=== PATIENT | female | born 1955 | race Caucasian/White ===

== ENCOUNTER 2016-04-05 08:17 | Outpatient (RCR) | payer MEDICAID ==
--- OUTSIDE RECORDS SUMMARY | 2016-04-04 13:13 | XMS REPORT | Continuity of Care Document ---
Author Author [facility] Organization [facility] Address Unknown Phone Unavailable Care Team Providers Care Business Intelligence Developer Name Role Phone Alesha Desir PCP [phone] Source Comments Some departments are not documenting in the electronic medical record. If you do not see the information that you expected, contact Release of Information in the Health Information Management department at [phone] for further assistance in locating additional records.[facility] Active Allergies and Adverse Reactions Allergen Noted Date Severity Reactions Comments Ibuprofen 11/16/2012 EDEMA Rocephin 11/16/2012 HIVES Current Medications Prescription Sig. Disp. Refills Start End Date Status Date levothyroxine (SYNTHROID) Take 150 mcg by mouth Active 150 mcg tablet daily. omeprazole DR(+) Take 40 mg by mouth Active (PRILOSEC) 40 mg capsule daily. metFORMIN (GLUCOPHAGE) Take 500 mg by mouth Active 500 mg tablet twice daily with meals. atorvastatin (LIPITOR) 80 Take 80 mg by mouth Active mg tablet daily. aspirin EC 81 mg tablet Take 81 mg by mouth Active daily. lisinopril (PRINIVIL; Take 10 mg by mouth Active ZESTRIL) 10 mg tablet daily. metoprolol XL (TOPROL XL) Take 25 mg by mouth Active 25 mg tablet daily. fentaNYL (DURAGESIC) 75 Apply 1 Patch to top of Active mcg/hr patch skin as directed every 72 hours prasugrel (EFFIENT) 10 mg Take 10 mg by mouth Active Tab tablet daily. 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 Social History Tobacco Use Types Packs/Day Years Used Date Never Smoker Last Filed Vital Signs Vital Sign Reading Time Taken Blood Pressure 127/79 11/16/2012 11:22 AM CDT Pulse 112 11/16/2012 11:22 AM CDT Temperature 36.7 C (98 F) 11/16/2012 11:22 AM CDT Respiratory Rate 20 11/16/2012 11:22 AM CDT Height 1.575 m (5' 2") 11/16/2012 11:22 AM CDT Weight 137.712 kg (303 lb 9.6 11/16/2012 11:22 AM CDT oz) Body Mass Index 55.52 11/16/2012 11:22 AM CDT Oxygen Saturation - - Plan of Care Health Maintenance Due Date Last Done Comments Physical (Comprehensive) 1961 Exam Pertussis Vaccine 1965 Tetanus Vaccine 1971 Cervical Cancer Screening 1975 Breast Cancer Screening 1994 Colorectal Cancer 2004 Screening Shingles Vaccine 2014 Influenza Vaccine 02/12/2016 Results from Last 3 Months Not on file
--- OUTSIDE RECORDS SUMMARY | 2016-04-04 13:14 | XMS REPORT | Continuity of Care Document ---
Author Author [facility] Organization [facility] Address Unknown Phone Unavailable Care Team Providers Care Archivist [employer]profit [employer] Name Role Phone Alesha Desir PCP [phone] Source Comments Some departments are not documenting in the electronic medical record. If you do not see the information that you expected, contact Release of Information in the Health Information Management department at [phone] for further assistance in locating additional records.[facility] Active Allergies and Adverse Reactions Allergen Noted [...]
[~2016-04-05] VITALS: Ht 157.5 cm; Wt 121.6 kg
[2016-04-05] VITALS (7 sets, daily range): BP systolic 100–129; BP diastolic 53–58
[~2016-04-05 08:17] MED LIST: ACET-789 PO; ALBU2.5V4 IH; ASP81TEC PO; ATOR80TA PO; ATOR80TA75 PO; ATOR80TA76 PO; AZIT250T5 PO; BIMA2.5D4 OU; BYETTA; CALC-654 PO; CLCX200C PO; CYCL10TA9 PO; DILT240C90 PO; DILT60TA PO; FENT1PAT11 TD; FENT1PAT11 TP; FENT1PAT5 TD; FERR-74 PO; FNT50TD TD; FNT75TD TD; FRSM40T PO; FURO80TA3 PO; HYDR-3720 PO; HYDR-3812 PO; HYDR-757 PO; Hydrocodone Bit/Acetaminophen PO; IPRA3AMP11 INH; IRON150C13 PO; ISOS30TA3 PO; KCL10CCR PO; LEVO175T3 PO; LEVO175T5 PO; LEVO500T69 PO; LEVO500T78 PO; LEVO750T24 PO; LISI10TA PO; LSNP10T PO; LVT.15T PO; LVT.1T PO; MAGN400T6 PO; METF500T4 PO; METO-270 PO; METO-333 PO; METO25TA PO; METO5TAB6 PO; METOLAZONE PO; MGS40T; MTF500T PO; MTL5T PO; MTP25TSR PO; MUPI22OI2 TP; NITR-65 PO; NITR100C3 PO; NTR50C PO; OMEP40CA36 PO; OXYC-199 PO; OXYC-465 PO; OXYC-471 PO; OXYC1TAB25 PO; POTA-51 PO; PRAS10TA6 PO; PRD10T PO; PRD20T PO; RIVA20TA2 PO; RT-ALBUINH IH; SPIR50TA27 PO; SPRN25T; TIOT18CA2 IH; TRAV5DRO2 OU; WRF10T PO; WRF5T PO
--- OUTSIDE RECORDS SUMMARY | 2016-04-05 08:22 | XMS REPORT | Continuity of Care Document ---
Author Author [facility] Organization [facility] Address Unknown Phone Unavailable Care Team Providers Care Line Supply Name Role Phone Alesha Desir PCP [phone] Source Comments Some departments are not documenting in the electronic medical record. If you do not see the information that you expected, contact Release of Information in the Health Information Management department at [phone] for further assistance in locating additional records.[facility] Active Allergies and Adverse Reactions Allergen Noted [...]
[2016-04-05] MEDS ORDERED: NS IV 500 ML 500 ML ONE (08:41)
== END 2016-07-03 | disposition home or self-care (01) ==
LOC: SDC 08:17
PROVIDERS: ATTEND Nurse Practitioner Community Health
DX: D64.9 Anemia, unspecified (principal)
CPT/HCPCS: 36430; 86850; 86900; 86901; 86920

== ENCOUNTER 2016-07-14 13:02 | Outpatient (RCR) | payer MEDICAID ==
--- OUTSIDE RECORDS SUMMARY | 2016-04-21 13:24 | XMS REPORT | Continuity of Care Document ---
Author Author [facility] Organization [facility] Address Unknown Phone Unavailable Care Team Providers Care Trash Truck Driver Name Role Phone Alesha Desir PCP [phone] Source Comments Some departments are not documenting in the electronic medical record. If you do not see the information that you expected, contact Release of Information in the Health Information Management department at [phone] for further assistance in locating additional records.[facility] Active Allergies and Adverse Reactions Allergen [...]
[2016-04-21 13:34] LABS: BASOPHILS % (AUTO) 0 % (0-10); EOSINOPHILS # (AUTO) 0.6 10^3/uL (0.0-0.3); EOSINOPHILS % (AUTO) 7 % (0-10); LYMPHOCYTES % (AUTO) 25 % (12-44); MEAN CORPUSCULAR HEMOGLOBIN 26 PG (25-34); MEAN CORPUSCULAR HGB CONC 30 G/DL (32-36); MEAN CORPUSCULAR VOLUME 85 FL (80-99); MONOCYTES # (AUTO) 0.6 X 10^3 (0.0-1.0); MONOCYTES % (AUTO) 8 % (0-12); NEUTROPHILS # (AUTO) 4.7 X 10^3 (1.8-7.8); NEUTROPHILS % (AUTO) 59 % (42-75); PLATELET COUNT 280 10^3/uL (130-400); RED BLOOD COUNT 3.62 10^6/uL (4.35-5.85); RED CELL DISTRIBUTION WIDTH 18.8 % (10.0-14.5); WHITE BLOOD COUNT 7.8 10^3/uL (4.3-11.0)
[2016-04-21 14:45] LABS: ALBUMIN 3.7 G/DL (3.2-4.5); BILIRUBIN,TOTAL 0.4 MG/DL (0.1-1.0); CALCIUM 8.5 MG/DL (8.5-10.1); CREATININE SERUM 1.21 MG/DL (0.60-1.30); MAGNESIUM 1.2 MG/DL (1.8-2.4); POTASSIUM 3.4 MMOL/L (3.6-5.0); TOTAL PROTEIN 7.4 G/DL (6.4-8.2)
[2016-04-21 16:14] LABS: %SAT TOTAL IRON BINDING CAPIC 12 % (15-50); TIBC 357 ug/dL (280-380)
[2016-04-22 07:21] LABS: FERRITIN 21 ng/mL (15-150); UIBC 313 ug/dL (55-450)
[2016-07-14 13:59] LABS: BASOPHILS % (AUTO) 0 % (0-10); EOSINOPHILS # (AUTO) 0.8 10^3/uL (0.0-0.3); EOSINOPHILS % (AUTO) 8 % (0-10); LYMPHOCYTES # (AUTO) 1.4 X 10^3 (1.0-4.0); LYMPHOCYTES % (AUTO) 16 % (12-44); MEAN CORPUSCULAR HEMOGLOBIN 28 PG (25-34); MEAN CORPUSCULAR HGB CONC 31 G/DL (32-36); MEAN CORPUSCULAR VOLUME 91 FL (80-99); MEAN PLATELET VOLUME 8.8 FL (7.4-10.4); MONOCYTES # (AUTO) 0.6 X 10^3 (0.0-1.0); MONOCYTES % (AUTO) 7 % (0-12); NEUTROPHILS # (AUTO) 6.3 X 10^3 (1.8-7.8); NEUTROPHILS % (AUTO) 69 % (42-75); PLATELET COUNT 267 10^3/uL (130-400); RED BLOOD COUNT 3.24 10^6/uL (4.35-5.85); RED CELL DISTRIBUTION WIDTH 14.9 % (10.0-14.5); WHITE BLOOD COUNT 9.1 10^3/uL (4.3-11.0)
[2016-07-14 14:21] LABS: ALBUMIN 3.6 G/DL (3.2-4.5); BILIRUBIN,TOTAL 0.3 MG/DL (0.1-1.0); CALCIUM 8.1 MG/DL (8.5-10.1); CREATININE SERUM 1.23 MG/DL (0.60-1.30); POTASSIUM 3.6 MMOL/L (3.6-5.0); TOTAL PROTEIN 7.1 G/DL (6.4-8.2)
[2016-07-14 15:13] LABS: THYROID STIMULATING HORMONE 3.65 UIU/ML (0.35-4.94)
== END 2016-07-20 | disposition home or self-care (01) ==
LOC: ONC 13:02
PROVIDERS: ATTEND Internal Medicine Hematology & Oncology
DX: D50.9 Iron deficiency anemia, unspecified (principal); I25.10 Atherosclerotic heart disease of native coronary artery without angina pectoris; E11.9 Type 2 diabetes mellitus without complications; E66.01 Morbid (severe) obesity due to excess calories; Z68.42 Body mass index [BMI] 45.0-49.9, adult; K44.9 Diaphragmatic hernia without obstruction or gangrene; I10 Essential (primary) hypertension; J44.9 Chronic obstructive pulmonary disease, unspecified; E03.9 Hypothyroidism, unspecified; Z79.01 Long term (current) use of anticoagulants; Z79.899 Other long term (current) drug therapy
CPT/HCPCS: 36415; 80053; 82728; 83540; 83735; 84443; 85025; 99213

== ENCOUNTER → 2016-09-26 | Outpatient (CLI) | payer MEDICAID ==
[~2016-09-26] MED LIST changes: +OXYC-464 PO; +SULF-222 PO
--- NOTE | 2016-09-26 16:07 | Diagnostic Imaging Report ---
PROCEDURE: US right lower extremity venous. TECHNIQUE: Multiple real-time grayscale images were obtained over the right lower extremity in various projections. Additional duplex Doppler and color Doppler images were also obtained. INDICATION: Right lower extremity edema. FINDINGS: The right common femoral, femoral, and popliteal veins are patent without evidence of DVT. Visualized proximal aspects of the greater saphenous, deep femoral, posterior tibial, and peroneal veins are also patent. All of the evaluated deep venous structures demonstrate normal compressibility and waveform augmentation where applicable. IMPRESSION: No right lower extremity deep venous thrombosis (DVT). Attempt was made to call the report to the provided number ([phone]); however, there was no answer. Dictated by: Dictated on workstation # [id number]
== END ==
LOC: RAD 14:29
PROVIDERS: ATTEND Nurse Practitioner Family
DX: R60.0 Localized edema (principal)

== ENCOUNTER 2016-09-28 14:03 | Inpatient (IN) | payer MEDICAID ==
[~2016-09-28] VITALS: Ht 157.5 cm; Wt 125.7 kg
[~2016-09-28 14:03] MED LIST changes: -OXYC-464 PO; -SULF-222 PO
[2016-09-28 14:45] LABS: BASOPHILS % (AUTO) 0 % (0-10); EOSINOPHILS # (AUTO) 0.7 10^3/uL (0.0-0.3); EOSINOPHILS % (AUTO) 7 % (0-10); LYMPHOCYTES # (AUTO) 1.3 X 10^3 (1.0-4.0); LYMPHOCYTES % (AUTO) 13 % (12-44); MEAN CORPUSCULAR HEMOGLOBIN 28 PG (25-34); MEAN CORPUSCULAR HGB CONC 30 G/DL (32-36); MEAN CORPUSCULAR VOLUME 93 FL (80-99); MONOCYTES # (AUTO) 0.9 X 10^3 (0.0-1.0); MONOCYTES % (AUTO) 9 % (0-12); NEUTROPHILS # (AUTO) 7.3 X 10^3 (1.8-7.8); NEUTROPHILS % (AUTO) 71 % (42-75); PLATELET COUNT 284 10^3/uL (130-400); RED BLOOD COUNT 2.86 10^6/uL (4.35-5.85); RED CELL DISTRIBUTION WIDTH 15.2 % (10.0-14.5); WHITE BLOOD COUNT 10.2 10^3/uL (4.3-11.0)
[2016-09-28 14:59] LABS: ERYTHROCYTE SEDIMENTATION RATE 136 MM/HR (0-30)
[2016-09-28 15:02] LABS: ALBUMIN 3.3 G/DL (3.2-4.5); BILIRUBIN,TOTAL 0.3 MG/DL (0.1-1.0); CALCIUM 6.7 MG/DL (8.5-10.1); CREATININE SERUM 1.64 MG/DL (0.60-1.30); POTASSIUM 2.8 MMOL/L (3.6-5.0); TOTAL PROTEIN 7.2 G/DL (6.4-8.2); hs C REACTIVE PROTEIN 8.39 MG/DL (0.00-0.50)
[2016-09-28] MEDS ORDERED: NS W/KCL 20 MEQ/L 1,000 ML IV SCH (15:30)
[2016-09-28] MEDS ORDERED: CLINDAMYCIN INJECTION 900 MG in NS (IVPB) 50 ML IV ONE (15:30)
--- NOTE | 2016-09-28 15:33 | ED General ---
General Chief Complaint: Lower Extremity Stated Complaint: LEGS/FEET SWELLING Nursing Triage Note: TO ROOM 08 WITH COMPLAINTS OF RIGHT LEG SWELLING AND PAIN STARTING OVER 1 WEEK AGO. SENT OUT HERE FROM DR CARRERA OFFICE. Nursing Sepsis Screen: No Definite Risk Source of Information: Patient, Family, Old Records, Other (PCP office) History of Present Illness Time Seen by Provider: 14:04 Initial Comments This 61-year-old woman was sent to the emergency room by Dr. Hernandez due to worsening right lower extremity pain, erythema, and swelling. She was seen in the clinic on Tuesday and was placed on Bactrim for suspected cellulitis. An ultrasound was performed and showed no evidence of DVT. Symptoms have worsened through the weekend and she contacted the primary care clinic by phone. She was deferred to the emergency room for further evaluation. She is afebrile and not tachycardic. Dr. Hernandez was concerned about a possible septic arthritis because she had a cortisone joint injections performed about 3 weeks ago. Allergies and Home Medications Allergies Coded Allergies: ceftriaxone (Verified Allergy, Unknown, 09/28/16) ibuprofen (Verified Allergy, Unknown, PT TAKES ASA AT HOME, 09/29/16) PER [facility] Home Medications Aspirin 81 Mg Tabec, 81 MG PO DAILY, (Reported) Atorvastatin Calcium 80 Mg Tablet, 80 MG PO HS, (Reported) Cyclobenzaprine HCl 10 Mg Tablet, 10 MG PO TID PRN for MUSCLE CRAMPS, (Reported) Fentanyl 1 Each Patch.td72, 100 MCG TD EVERY 72 HOURS, (Reported) Ferrous Sulfate 325 Mg Tablet, 325 MG PO DAILY, (Reported) Isosorbide Mononitrate 30 Mg Tab.er.24h, 30 MG PO DAILY, (Reported) Levothyroxine Sodium 175 Mcg Tablet, 175 MCG PO DAILY, (Reported) Metformin HCl 500 Mg Tablet, 500 MG PO BID, (Reported) Metolazone 5 Mg Tablet, 5 MG PO DAILY, (Reported) Metoprolol Tartrate 25 Mg Tablet, 25 MG PO BID, (Reported) Omeprazole 40 Mg Capsule.dr, 40 MG PO DAILY, (Reported) Oxycodone HCl/Acetaminophen 1 Each Tablet, 1 TAB PO TID, (Reported) Potassium Chloride 20 Meq Tablet.er, 20 MEQ PO BID, (Reported) Sulfamethoxazole/Trimethoprim 1 Each Tablet, 1 TAB PO BID, (Reported) FILLED 09/26/16 #20 FOR A 10 DAY THERAPY Constitutional: no symptoms reported EENTM: no symptoms reported Respiratory: no symptoms reported Cardiovascular: no symptoms reported Gastrointestinal: no symptoms reported Genitourinary: no symptoms reported Musculoskeletal: see HPI Skin: see HPI Psychiatric/Neurological: No Symptoms Reported Hematologic/Lymphatic: No Symptoms Reported Past Qfbnbkx-Cygiin-Nhbfcm Hx Patient Social History Recent Foreign Travel: No Contact w/Someone Who Travel: No Recent Infectious Disease Expo: No Recent Hopitalizations: Yes (recent ER visit) Immunizations Up To Date Tetanus Booster (TDap): Unknown Date of Pneumonia Vaccine: Mar 13, 2010 Date of Influenza Vaccine: Apr 11, 2015 Seasonal Allergies Seasonal Allergies: No Surgeries HX Surgeries: Yes (COLON POLYP REMOVAL, MULTIPLE HERNIA REPAIRS, D&C) Surgeries: Abdominal, Adenoidectomy, Cardiac, Coronary Stent, Eye Surgery, Gallbladder, Tonsillectomy, Tubal Ligation Respiratory Hx Respiratory Disorders: Yes (CHRONIC DYSPNEA--USES O2 AT HOME, ESPECIALLY AT NIGHT) Respiratory Disorders: Pneumonia, Sleep Apnea, COPD Cardiovascular Hx Cardiac Disorders: Yes (TACHYCARDIA, STENTS X 1, CHF) Cardiac Disorders: Atrial Fibrillation, Chronic Edema/Swelling, Coronary Artery Disease, Deep Vein Thrombosis, Heart Attack, High Cholesterol, Hypertension Neurological Hx Neurological Disorders: No 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 System Hx 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 Disorders: No Sexually Transmitted Disease: No HIV/AIDS: No Female 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 Disorders: Denies CHEF DE CUISINE History: Menopausal Genitourinary Hx Genitourinary Disorders: Yes Genitourinary Disorders: UTI-Chronic Gastrointestinal Hx Gastrointestinal Disorders: Yes (ENTERO-CUTANEOUS FISTULA TO ABDOMEN. ) Gastrointestinal Disorders: Abdominal Hernia, Diverticulosis, Polyps, Gall Bladder Disease Musculoskeletal Hx Musculoskeletal Disorders: Yes (CHRONIC GENERALIZED PAIN--NARCOTIC-DEPENDENT ) Musculoskeletal Disorders: Degenerate Disk Disease, Arthritis, Chronic Back Pain Endocrine Hx Endocrine Disorders: Yes (MORBID OBESITY) Endocrine Disorders: Hypothyroidsim, Diabetes, Non-Insulin dep HEENT HX ENT Disorders: Yes HEENT Disorders: Cataract, Glaucoma Loss of Vision: Denies Hearing Impairment: Denies Cancer Hx Cancer: Yes Cancer: Colon Psychosocial Hx Psychiatric Problems: No Integumentary HX Skin/Integumentary Disorder: Yes (CELLULITIS) Skin/Integumentary Disorders: Eczema Blood Transfusions Hx Blood Disorders: Yes (CHRONIC ANEMIA) Adverse Reaction to a Blood Tr: No Family Medical History Family Medial History: Cancer 03 MOTHER, Onset:40's - 50 Family history: Cardiovascular disease 03 FATHER, Onset:40's - 50 03 MOTHER, Onset:30's - 40 Myocardial infarction 03 MOTHER, Onset:30's - 40 Physical Exam Vital Signs Vital Sign - Last 12Hours 09/28/16 09/28/16 14:05 20:00 Temp 97.5 Pulse 75 Resp 18 B/P (MAP) 129/60 Pulse Ox 96 O2 Delivery Room Air Capillary Refill : Less Than 3 Seconds General Appearance: No Apparent Distress, WD/WN, Obese HEENT: PERRL/EOMI, Normal ENT Inspection, Other (bedbugs noted in the hair by nursing staff) Neck: Normal Inspection Respiratory: Lungs Clear, Normal Breath Sounds, No Accessory Muscle Use, No Respiratory Distress Cardiovascular: Regular Rate, Rhythm, No Edema, No Murmur Gastrointestinal: Normal Bowel Sounds, Non Tender, Soft Extremity: Other (bilateral lower extremity edema, right greater than left. Right lower extremity is diffusely erythematous below the knee. There is an area of tissue degradation on the posterior lateral lower right leg. Sensation and capillary refill intact in the toes. Knee and joint line of purulent unaffected and are nontender.) Neurologic/Psychiatric: Alert, Oriented x3, No Motor/Sensory Deficits, Normal Mood/Affect, primary school teacher librarian II-XII Norm as Tested Focused Exam Lactic Acid Level Progress/Results/Core Measures Results/Orders Lab Results Laboratory Tests Test 09/28/16 14:34 09/28/16 15:25 09/29/16 04:17 09/29/16 16:27 Range/Units White Blood Count 10.2 8.6 4.3-11.0 10^3/uL Red Blood Count 2.86 L 3.04 L 4.35-5.85 10^6/uL Hemoglobin 7.9 L 8.5 L 11.5-16.0 G/DL Hematocrit 27 L 28 L 35-52 % Mean Corpuscular Volume 93 93 80-99 FL Mean Corpuscular Hemoglobin 28 28 25-34 PG Mean Corpuscular Hemoglobin Concent 30 L 30 L 32-36 G/DL Red Cell Distribution Width 15.2 H 15.4 H 10.0-14.5 % Platelet Count 284 247 130-400 10^3/uL Mean Platelet Volume 9.0 9.7 7.4-10.4 FL Neutrophils (%) (Auto) 71 68 42-75 % Lymphocytes (%) (Auto) 13 12 12-44 % Monocytes (%) (Auto) 9 10 0-12 % Eosinophils (%) (Auto) 7 9 0-10 % Basophils (%) (Auto) 0 0 0-10 % Neutrophils # (Auto) 7.3 5.8 1.8-7.8 X 10^3 Lymphocytes # (Auto) 1.3 1.1 1.0-4.0 X 10^3 Monocytes # (Auto) 0.9 0.9 0.0-1.0 X 10^3 Eosinophils # (Auto) 0.7 H 0.8 H 0.0-0.3 10^3/uL Basophils # (Auto) 0.0 0.0 0.0-0.1 10^3/uL Erythrocyte Sedimentation Rate 136 H 0-30 MM/HR D-Dimer 2.73 H 0.00-0.49 UG/ML Sodium Level 139 140 135-145 MMOL/L Potassium Level 2.8 L 3.2 L 3.6-5.0 MMOL/L Chloride Level 93 L 98 98-107 MMOL/L Carbon Dioxide Level 31 29 21-32 MMOL/L Anion Gap 15 H 13 5-14 MMOL/L Blood Urea Nitrogen 17 18 7-18 MG/DL Creatinine 1.64 H 1.32 H 0.60-1.30 MG/DL Estimat Glomerular Filtration Rate 32 41 BUN/Creatinine Ratio 10 14 Glucose Level 111 H 102 70-105 MG/DL Lactic Acid Level 2.33 *H 1.57 0.50-2.00 MMOL/L Calcium Level 6.7 L 6.5 L 8.5-10.1 MG/DL Total Bilirubin 0.3 0.1-1.0 MG/DL Aspartate Amino Transf (AST/SGOT) 16 5-34 U/L Alanine Aminotransferase (ALT/SGPT) 9 0-55 U/L Alkaline Phosphatase 92 40-136 U/L C-Reactive Protein High Sensitivity 8.39 H 0.00-0.50 MG/DL Total Protein 7.2 6.4-8.2 G/DL Albumin 3.3 3.2-4.5 G/DL Lab Scanned Report Transfusion Reaction Form [id number] Micro Results Microbiology 09/28/16 Blood Culture - Preliminary, Resulted No growth 09/28/16 Blood Culture - Preliminary, Resulted No growth My Orders Orders - BRUEGGEMANN,ELE T MD Cbc With Automated Diff (09/28/16 14:08) Comprehensive Metabolic Panel (09/28/16 14:08) Hs C Reactive Protein (09/28/16 14:08) Erythrocyte Sedimentation Rate (09/28/16 14:08) Fibrin Degradation Products (09/28/16 14:08) Saline Lock/Iv-Start (09/28/16 14:08) Us Venous Lower Ext Rt (09/28/16 15:15) Lactic Acid Analyzer (09/28/16 15:16) Blood Culture (09/28/16 15:16) Clindamycin Injection (Cleocin Injection (09/28/16 15:30) Ns W/Kcl 20 Meq/L (Ns Iv W/Kcl 20 Meq/L) (09/28/16 15:30) Potassium Chloride (Tablet) (Klor Con Ta (09/28/16 15:45) Tibia/Fibula, Right, 2 Views (09/28/16 16:25) Ankle, Right, 3 Views (09/28/16 16:25) Oxycodone/Apap 5/325mg Tablet (Percocet (09/28/16 17:00) Fentanyl Injection (Sublimaze Injection (09/28/16 17:15) Fentanyl Injection (Sublimaze Injection (09/28/16 17:03) Medications Given in ED Vital Signs/I&O Vital Sign - Last 12Hours 09/29/16 09/30/16 21:00 00:52 Temp 97.8 Pulse 67 Resp 16 B/P (MAP) 97/54 Pulse Ox 94 O2 Delivery Nasal Cannula Room Air O2 Flow Rate 3.00 Blood Pressure Mean: 83 Progress Note : Time: 15:46 Progress Note Patient has been seen and examined. Labs were process. D-dimer was significantly elevated. A repeat ultrasound will be performed to ensure no DVT is present. WBC count, heart rate, blood pressure, and temperature are all normal. CRP however is elevated. Patient will be treated for cellulitis. Blood cultures and lactic acid were collected. Lactic acid was elevated. Clindamycin was ordered for initial antibiotic therapy. Patient was found to be in renal failure and has significant hypokalemia. Normal saline +20 mEq of potassium will be infuse at 500 mL per hour. 20 mEq of potassium was also given orally. I anticipate admission for this patient due to renal failure, hypokalemia, and failure of outpatient therapy for cellulitis. Diagnostic Imaging Diagonstic Imaging: Ultrasound Plain Films/CT/US/NM/MRI: leg Comments NAME: [facility] REC#: [id number] PT STATUS: REG ER : 1955 PHYSICIAN: ELE PEREYRA MD ADMIT DATE: 09/28/16/ER Draft Date of Exam:09/28/16 US VENOUS LOWER EXT RT PROCEDURE: US right lower extremity venous. INDICATION: Right leg pain and swelling. COMPARISON: 09/26/2016. TECHNIQUE: The right lower extremity deep venous system was interrogated from the common femoral vein through the popliteal vein. These images were assessed for grayscale appearance, color and spectral Doppler blood flow, compression, and augmentation. FINDINGS: There is no evidence of intraluminal filling defect. Normal compression and augmentation is noted throughout. Soft tissues are unremarkable. IMPRESSION: 1. No sonographic evidence of deep venous thrombosis in the right lower extremity. Dictated on workstation # [id number] Dict: 09/28/16 1611 Trans: 09/28/16 1613 MARIAELENA [id number] Interpreted by: JAN LYLE MD Diagonstic Imaging: Xray Plain Films/CT/US/NM/MRI: ankle Comments Right ankle x-ray viewed by me and report reviewed. See report below: NAME: [facility] REC#: [id number] PT STATUS: ADM IN : 1955 PHYSICIAN: ELE PEREYRA MD ADMIT DATE: 09/28/16/4TH Draft Date of Exam:09/28/16 ANKLE, RIGHT, 3 VIEWS INDICATION: Right ankle pain and swelling. FINDINGS: Three views of the right ankle show no fracture, dislocation or other acute bony abnormality. There are mild degenerative changes of the tips of the medial and lateral malleolus. The ankle joint is not widened. There is swelling present. IMPRESSION: Swelling. No acute bony abnormality is seen. Dictated on workstation # [id number] Dict: 09/28/16 1712 Trans: 09/28/16 171 [facility] [id number] Interpreted by: LISA SMILEY MD Departure Communication Time/Spoke to Admitting Phy: 16:20 Communication Case reviewed with Dr. Pino. She agrees with admission as patient has failed outpatient therapy for treatment of cellulitis. She also has acute kidney injury and hypokalemia. She requested consultation with Dr. Ramesh. Dr. Ramesh recommends cross-matching 2 units of red blood cells. One unit is to be transfused now. The second unit should be transfused in the morning if hemoglobin is less than 8.5. Dr. Pino requested surgical consult for evaluation of the cellulitis. She also requested the addition of vancomycin to the clindamycin. Communication/Consulting Dr. Lambert at 16:40 Dr. Ramesh at 16:45 Impression Impression: Primary Impression: Cellulitis of right leg Additional Impressions: Hypokalemia Acute kidney injury Anemia Qualified Codes: D64.9 - Anemia, unspecified bedbug infestation Disposition: ADMITTED INPATIENT Condition: Improved Time/Decision to Admit Time: 15:30 Departure-Patient Inst. Referrals: JAN HERNANDEZ MD (PCP) Primary Care Physician ELE PEREYRA MD Sep 28, 2016 15:33
[2016-09-28] MEDS ORDERED: KCL 10 MEQ TAB (MICRO K) PO ONE (15:45)
[2016-09-28] MEDS ORDERED: OXYC-464 PO (15:59)
[2016-09-28] MEDS ORDERED: CYCL10TA9 PO (15:59)
[2016-09-28] MEDS ORDERED: SULF-222 PO (16:08)
--- NOTE | 2016-09-28 16:14 | Diagnostic Imaging Report ---
PROCEDURE: US right lower extremity venous. INDICATION: Right leg pain and swelling. COMPARISON: 09/26/2016. TECHNIQUE: The right lower extremity deep venous system was interrogated from the common femoral vein through the popliteal vein. These images were assessed for grayscale appearance, color and spectral Doppler blood flow, compression, and augmentation. FINDINGS: There is no evidence of intraluminal filling defect. Normal compression and augmentation is noted throughout. Soft tissues are unremarkable. IMPRESSION: 1. No sonographic evidence of deep venous thrombosis in the right lower extremity. Dictated by: Dictated on workstation # [id number]
[2016-09-28] MEDS ORDERED: oxyCODONE/APAP 5/325MG (PERCOCET 5) TABLET PO ONE (17:00)
[2016-09-28] MEDS ORDERED: fentaNYL INJECTION 100 MCG/2 ML AMP ONE (17:03)
[2016-09-28] MEDS ORDERED: fentaNYL INJECTION 100 MCG/2 ML AMP IVP ONE (17:15)
--- NOTE | 2016-09-28 17:16 | Diagnostic Imaging Report ---
INDICATION: Right ankle pain and swelling. FINDINGS: Three views of the right ankle show no fracture, dislocation or other acute bony abnormality. There are mild degenerative changes of the tips of the medial and lateral malleolus. The ankle joint is not widened. There is swelling present. IMPRESSION: Swelling. No acute bony abnormality is seen. Dictated by: Dictated on workstation # [id number]
--- NOTE | 2016-09-28 17:24 | Diagnostic Imaging Report ---
INDICATION: Right leg pain and swelling. FINDINGS: AP and lateral views of the right tibia and fibula were obtained which shows no fracture, dislocation or other acute bony abnormality. There is moderately advanced degenerative changes of the knee involving all three compartments. There are milder degenerative changes of the ankle. There are soft tissue calcification present. No focal mass is seen. There is swelling. IMPRESSION: There are degenerative changes present with no acute bony abnormality seen. Dictated by: Dictated on workstation # [id number]
[2016-09-28 18:00] VITALS: BP 151/81
[2016-09-28] MEDS ORDERED: CLINDAMYCIN 900 MG/NS 50 ML IVPB IV SCH ×2 (18:06)
[2016-09-28] MEDS: NS W/KCL 20 MEQ/L 1,000 ML IV SCH (18:39)
[2016-09-28] MEDS ORDERED: VANCOMYCIN INJECTION 2,500 MG in NS IV 500 ML 500 ML IV NR (19:00)
[2016-09-28 20:00] VITALS: BP 145/72
[2016-09-28] MEDS ORDERED: NS (IVPB) 250 ML ONE (22:40)
[2016-09-28] MEDS: oxyCODONE/APAP 10/325MG (PERCOCET 10) TABLET PO PRN (23:20)
[2016-09-28 23:26] VITALS: BP 141/51
[2016-09-28 23:42] VITALS: BP 156/76
[2016-09-29] VITALS: BP 145/68
[2016-09-29] MEDS: CLINDAMYCIN 900 MG/NS 50 ML IVPB IV SCH ×8 (00:06→22:23)
[2016-09-29 01:37] VITALS: BP 152/88
[2016-09-29] MEDS: NS W/KCL 20 MEQ/L 1,000 ML IV SCH ×4 (02:30→21:03)
[2016-09-29 04:53] VITALS: BP 128/77
[2016-09-29 05:06] LABS: BASOPHILS % (AUTO) 0 % (0-10); EOSINOPHILS # (AUTO) 0.8 10^3/uL (0.0-0.3); EOSINOPHILS % (AUTO) 9 % (0-10); LYMPHOCYTES # (AUTO) 1.1 X 10^3 (1.0-4.0); LYMPHOCYTES % (AUTO) 12 % (12-44); MEAN CORPUSCULAR HEMOGLOBIN 28 PG (25-34); MEAN CORPUSCULAR HGB CONC 30 G/DL (32-36); MEAN CORPUSCULAR VOLUME 93 FL (80-99); MEAN PLATELET VOLUME 9.7 FL (7.4-10.4); MONOCYTES # (AUTO) 0.9 X 10^3 (0.0-1.0); MONOCYTES % (AUTO) 10 % (0-12); NEUTROPHILS # (AUTO) 5.8 X 10^3 (1.8-7.8); NEUTROPHILS % (AUTO) 68 % (42-75); PLATELET COUNT 247 10^3/uL (130-400); RED BLOOD COUNT 3.04 10^6/uL (4.35-5.85); RED CELL DISTRIBUTION WIDTH 15.4 % (10.0-14.5); WHITE BLOOD COUNT 8.6 10^3/uL (4.3-11.0)
[2016-09-29 05:22] LABS: CALCIUM 6.5 MG/DL (8.5-10.1); CREATININE SERUM 1.32 MG/DL (0.60-1.30); POTASSIUM 3.2 MMOL/L (3.6-5.0)
[2016-09-29 08:00] VITALS: BP 167/78
[2016-09-29] MEDS: oxyCODONE/APAP 10/325MG (PERCOCET 10) TABLET PO PRN ×3 (08:32→22:23)
[2016-09-29] MEDS ORDERED: MAGNESIUM 1 GM/100 ML IVPB 100 ML IV NR (09:00)
--- NOTE | 2016-09-29 10:36 | CONSULTATION REPORT ---
DATE OF ADMISSION: 09/28/2016 DATE OF CONSULTATION: 09/28/2016 ATTENDING PRIMARY CARE PHYSICIAN: Dr. Mckeon ADMITTING PHYSICIAN: Dr. Pino. Ms. Sis Alfaro is a 61-year-old female with multiple medical problems. She has had multiple admissions due to morbid obesity, as well as lower extremity edema, cellulitis pannus, infection, as well as enterocutaneous fistula and large hernia. She was treated conservatively for many months and the enterocutaneous fistula did resolve on its own and then she underwent hernia repair. She states that she has not had any issues from this since that time. She has had bilateral lower extremity edema, as well as chronic venous insufficiency for years. The right lower extremity is significantly worse with swelling and edema, as well as tight hyperkeratotic skin and some mild changes consistent with a chronic venous insufficiency. There is also some overlying redness and erythema and pain consistent with cellulitis. There is no fluctuance to indicate an abscess. PAST MEDICAL HISTORY: 1. History of pneumonia. 2. Sleep apnea. 3. COPD. 4. Atrial fibrillation/ 5. Bilateral lower extremity edema. 6. Coronary artery disease. 7. History of DVT. 8. History of myocardial infarction. 9. Hypercholesterolemia. 10. Hypertension. 11. Chronic urinary tract infections. 12. History of enterocutaneous fistula. 13. History of colon polyp. 14. Degenerative joint disease. 15. Diabetes. 16. Hypothyroid. 17. Cataracts. 18. Glaucoma. 19. History of anemia. PAST SURGERIES: 1. Multiple hernia repairs. 2. Abdominal hernia repair. 3. Adenoidectomy. 4. Tonsillectomy. 5. Cardiac catheterization and stent placement. 6. Eye surgery. 7. Laparoscopic cholecystectomy. 8. Tubal ligation. 9. Repair of large incisional ventral abdominal hernia. ALLERGIES: 1. CEFTRIAXONE. 2. IBUPROFEN. MEDICATIONS: 1. Aspirin 81 mg daily. 2. Atorvastatin 80 mg daily. 3. Cyclobenzaprine 10 mg t.i.d. p.r.n. 4. Fentanyl patch 100 mcg every 72 hours. 5. Iron 325 mg daily. 6. Isosorbide mononitrate 30 mg daily. 7. Levothyroxine 175 micrograms daily. 8. Metformin 500 mg b.i.d. 9. Metolazone 5 mg daily. 10. Metoprolol 25 mg b.i.d. 11. Omeprazole 40 mg daily. 12. Oxycodone t.i.d. p.r.n. 13. Potassium 20 mEq b.i.d. 14. Bactrim b.i.d. SOCIAL HISTORY: States negative smoke. Negative alcohol. FAMILY HISTORY: Mother and father vascular disease. VITAL SIGNS: Temperature 97.5, blood pressure 129/60, pulse 75, respirations 18, pulse oximetry 96% on room air. REVIEW OF SYSTEMS: This is a well-nourished female currently in no acute distress. She is not experiencing any shortness of breath or difficulty breathing. No chest pain, palpitations, diaphoresis. No nausea, vomiting, no diarrhea, constipation. No fever, chills, no recent inadvertent weight loss. PHYSICAL EXAMINATION: CHEST: Few scattered rales and rhonchi bilaterally. HEART: Regular. EXTREMITIES: +2/3 bilateral lower extremity edema with right significantly worse than the left with signs of chronic venous insufficiency with no open wound however, there is overlying redness and swelling with some palpable pain consistent with cellulitis. There is no fluctuance to indicate any abscess. Negative Anali sign. HEENT: No scleral icterus. No cervical lymphadenopathy. ABDOMEN: Soft, nontender, nondistended. ASSESSMENT AND PLAN: 61-year-old female with chronic venous insufficiency, bilateral lower extremity with a right significantly worse than the left. This may be due to Incompetent venous perforators which is We will recommend just above the ankle . Eventually she will need to be fitted for compression stockings and place these on at all times. Job ID: [id number] Dictated Date: 09/28/2016 19:35:39 Web Programmer Date: 09/29/2016 10:18:30/deyanira
--- NOTE | 2016-09-29 11:01 | History & Physical-Hospitalist ---
HPI History of Present Illness: HPI/Chief Complaint CC: Right leg cellulitis HPI: This is a 61 [address] pt [address] Mckeon's at [facility] w/ history of edema and recent fall on right leg that developed cellulitis and was placed on Bactrim which was unsuccessful at resolving issues. Pt had Creat 1.6 and K+ of 2.8 revealing renal failure, so pt was admitted to replace electrolyte abnormalities and manage cellulitis Patient Interview: Pt live at home with her daughters and two grandson. Pt feels that her leg is okay Pt confirms that Dr. Shearer is PCP and that she was placed on Bactrim BID The pain is not bothering her as much. Lab results discussed with pt. Physical exam was stable. Pt uses a walker at home Received 1 unit of blood. Pt has chronic anemia and is transfusion dependent managed by Dr. Ramesh Scribed by Dread Fox under the direct supervision of Dr. Ireland. Source: patient Date Seen 09/29/16 Attending Physician Claudia Ireland DO PCP Aden Mckeon MD Referring Physician Date of Admission Sep 28, 2016 at 16:40 Home Medications & Allergies Home Medications Reviewed patient Home Medication Reconciliation Form Allergies Allergies Coded Allergies ceftriaxone (Verified Allergy, Unknown, 09/28/16) ibuprofen (Verified Allergy, Unknown, 09/28/16) Past Gomrmrr-Pchwmp-Sctnyb Hx Patient Social History Marrital Status: single Employed/Student: unemployed Alcohol Use: Denies Use Recreational Drug Use: No Smoking Status: Former Smoker Physical Abuse Screen: No Sexual Abuse: No Recent Foreign Travel: No Contact w/other who traveled: No Recent Hopitalizations: Yes (recent ER visit) Recent Infectious Disease Expo: No Immunizations Up To Date Tetanus Booster (TDap): Unknown Date of Pneumonia Vaccine: Mar 13, 2010 Date of Influenza Vaccine: Apr 11, 2015 Seasonal Allergies Seasonal Allergies: No Surgeries HX Surgeries: Yes (COLON POLYP REMOVAL, MULTIPLE HERNIA REPAIRS, D&C) Surgeries: Abdominal, Adenoidectomy, Cardiac, Coronary Stent, Eye Surgery, Gallbladder, Tonsillectomy, Tubal Ligation Respiratory Hx Respiratory Disorders: Yes (CHRONIC DYSPNEA--USES O2 AT HOME, ESPECIALLY AT NIGHT) Respiratory Disorders: Sleep Apnea Cardiovascular Hx Cardiovascular Disorders: Yes (TACHYCARDIA, STENTS X 1, CHF) Cardiac Disorders: Atrial Fibrillation, Chronic Edema/Swelling, Coronary Artery Disease, Deep Vein Thrombosis, Heart Attack, High Cholesterol, Hypertension Neurological Hx Neurological Disorders: No 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 System Hx 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 Disorders: No Sexually Transmitted Disease: No HIV/AIDS: No Female 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 Disorders: Denies Genitourinary Hx Genitourinary Disorders: Yes Genitourinary Disorders: UTI-Chronic Gastrointestinal Hx Gastrointestinal Disorders: Yes (ENTERO-CUTANEOUS FISTULA TO ABDOMEN. ) Gastrointestinal Disorders: Abdominal Hernia, Diverticulosis, Polyps, Gall Bladder Disease Musculoskeletal Hx Musculoskeletal Disorders: Yes (CHRONIC GENERALIZED PAIN--NARCOTIC-DEPENDENT ) Musculoskeletal Disorders: Degenerate Disk Disease, Arthritis, Chronic Back Pain Endocrine Hx Endocrine Disorders: Yes (MORBID OBESITY) Endocrine Disorders: Hypothyroidsim, Diabetes, Non-Insulin dep HEENT HX ENT Disorders: Yes HEENT Disorders: Cataract, Glaucoma Loss of Vision: Denies Hearing Impairment: Denies Cancer Hx Cancer: Yes Cancer: Colon Psychosocial Hx Psychiatric Problems: No Integumentary HX Skin/Integumentary Disorder: Yes (CELLULITIS) Skin/Integumentary Disorders: Eczema Blood Transfusions Hx Blood Disorders: Yes (CHRONIC ANEMIA) Adverse Reaction to a Blood Tr: No Family Medical History Family Hx: Cancer 03 MOTHER, Onset:40's - 50 Family history: Cardiovascular disease 03 FATHER, Onset:40's - 50 03 MOTHER, Onset:30's - 40 Myocardial infarction 03 MOTHER, Onset:30's - 40 Review of Systems Constitutional: see HPI, weakness EENTM: no symptoms reported Respiratory: no symptoms reported Cardiovascular: no symptoms reported Gastrointestinal: no symptoms reported Genitourinary: no symptoms reported Musculoskeletal: joint pain Skin: see HPI Psychiatric/Neurological: Depressed All Other Systems Reviewed Negative Unless Noted: Yes Physical Exam Physical Exam Vital Signs Vital Sign - Last 12Hours 09/28/16 09/28/16 14:05 20:00 Temp 97.5 Pulse 75 Resp 18 B/P (MAP) 129/60 Pulse Ox 96 O2 Delivery Room Air Capillary Refill : Less Than 3 SecondsLess Than 3 Seconds General Appearance: No Apparent Distress, WD/WN, Chronically ill, Obese Eyes: Bilateral Eye Normal Inspection, Bilateral Eye PERRL HEENT: PERRL/EOMI, Normal ENT Inspection, Pharynx Normal Neck: Full Range of Motion, Normal Inspection, Non Tender, Supple, Carotid Bruit Respiratory: Chest Non Tender, Lungs Clear, Normal Breath Sounds, No Accessory Muscle Use, No Respiratory Distress Cardiovascular: Regular Rate, Rhythm, No Edema, No Gallop, No JVD, No Murmur, Normal Peripheral Pulses Gastrointestinal: Normal Bowel Sounds, No Organomegaly, No Pulsatile Mass, Non Tender, Soft Back: Normal Inspection, No CVA Tenderness, No Vertebral Tenderness Extremity: Normal Capillary Refill, Normal Inspection, Normal Range of Motion, Non Tender, No Calf Tenderness, No Pedal Edema Neurologic/Psychiatric: Alert, Oriented x3, No Motor/Sensory Deficits, Normal Mood/Affect Skin: Normal Color, Warm/Dry, Rash (right lower leg w/mild erythema and chronic edema) Lymphatic: No Adenopathy Results Results/Procedures Lab Laboratory Tests 09/28/16 14:34 09/29/16 04:17 Assessment/Plan Admission Diagnosis Assessment: Right lower extremity cellulitis Chronic lymphedema Acute renal failure creatinine 1.6 Hypokalemia severe at 2.8 Hypertension Hypothyroidism Hyperlipidemia Chronic angina Chronic anemia transfusion dependent managed by hematology Dr. Munroe Morbid obesity Assessment and Plan Plan: Restart home meds Labs recheck tomorrow morning Possible DC tomorrow Improve personal hygiene PT Abx Monitor hgb but may need another unit tomorrow Clinical Quality Measures DVT/VTE Risk/Contraindication: Risk Factor Score Per Nursin RFS Level Per Nursing on Admit: 4+=Very High CLAUDIA IRELAND DO Sep 29, 2016 11:01
[2016-09-29] MEDS ORDERED: CYCLOBENZAPRINE 10 MG (FLEXERIL) TAB PO PRN (11:15)
--- NOTE | 2016-09-29 11:43 | Progress Note (SOAP) ---
Subjective Subjective/Events-last exam doing well. less pain,erythema, edema. Objective Exam Vital Signs Date Time Temp Pulse Resp B/P (MAP) Pulse Ox O2 Delivery O2 Flow Rate FiO2 09/29/16 11:37 3.00 09/29/16 08:00 98.2 93 24 167/78 90 Room Air 09/29/16 04:53 98.5 79 20 128/77 96 Room Air 09/29/16 01:37 97.6 77 20 152/88 3.00 09/29/16 00:00 97.5 76 16 145/68 97 Room Air 09/28/16 23:42 97.4 79 18 156/76 3.00 09/28/16 23:26 97.8 75 20 141/51 96 3.00 09/28/16 21:00 Nasal Cannula 3.00 09/28/16 20:00 98.3 74 20 145/72 98 Room Air 09/28/16 18:00 98.7 77 18 151/81 98 09/28/16 18:00 98 3.00 09/28/16 17:31 77 16 98 09/28/16 14:05 97.5 75 18 129/60 96 I & O 09/29/16 07:00 Intake Total 1341 ml Output Total 900 ml Balance 441 ml Capillary Refill : Less Than 3 SecondsLess Than 3 Seconds General Appearance: No Apparent Distress HEENT: PERRL/EOMI Neck: Full Range of Motion Respiratory: Chest Non Tender, Lungs Clear, Normal Breath Sounds Cardiovascular: Regular Rate, Rhythm Gastrointestinal: normal bowel sounds, non tender, soft Extremity: Normal Capillary Refill, Swelling, Other (less erythema and swelling left LE) Neurologic/Psychiatric: Alert, Oriented x3 Skin: Normal Color Lymphatic: No Adenopathy Results Lab Laboratory Tests 09/28/16 14:34: White Blood Count 10.2, Red Blood Count 2.86L, Hemoglobin 7.9L, Hematocrit 27L, Mean Corpuscular Volume 93, Mean Corpuscular Hemoglobin 28, Mean Corpuscular Hemoglobin Concent 30L, Red Cell Distribution Width 15.2H, Platelet Count 284, Mean Platelet Volume 9.0, Neutrophils (%) (Auto) 71, Lymphocytes (%) (Auto) 13, Monocytes (%) (Auto) 9, Eosinophils (%) (Auto) 7, Basophils (%) (Auto) 0, Neutrophils # (Auto) 7.3, Lymphocytes # (Auto) 1.3, Monocytes # (Auto) 0.9, Eosinophils # (Auto) 0.7H, Basophils # (Auto) 0.0, Erythrocyte Sedimentation Rate 136H, D-Dimer 2.73H, Sodium Level 139, Potassium Level 2.8L, Chloride Level 93L, Carbon Dioxide Level 31, Anion Gap 15H, Blood Urea Nitrogen 17, Creatinine 1.64H, Estimat Glomerular Filtration Rate 32, BUN/Creatinine Ratio 10 , Glucose Level 111H, Lactic Acid Level 2.33*H, Calcium Level 6.7L, Total Bilirubin 0.3, Aspartate Amino Transf (AST/SGOT) 16, Alanine Aminotransferase ( ALT/SGPT) 9, Alkaline Phosphatase 92, C-Reactive Protein High Sensitivity 8.39H , Total Protein 7.2, Albumin 3.3 09/28/16 15:25: Lactic Acid Level 1.57 09/29/16 04:17: White Blood Count 8.6, Red Blood Count 3.04L, Hemoglobin 8.5L, Hematocrit 28L, Mean Corpuscular Volume 93, Mean Corpuscular Hemoglobin 28, Mean Corpuscular Hemoglobin Concent 30L, Red Cell Distribution Width 15.4H, Platelet Count 247, Mean Platelet Volume 9.7, Neutrophils (%) (Auto) 68, Lymphocytes (%) (Auto) 12, Monocytes (%) (Auto) 10, Eosinophils (%) (Auto) 9, Basophils (%) (Auto) 0, Neutrophils # (Auto) 5.8, Lymphocytes # (Auto) 1.1, Monocytes # (Auto) 0.9, Eosinophils # (Auto) 0.8H, Basophils # (Auto) 0.0, Sodium Level 140, Potassium Level 3.2L, Chloride Level 98, Carbon Dioxide Level 29, Anion Gap 13, Blood Urea Nitrogen 18, Creatinine 1.32H, Estimat Glomerular Filtration Rate 41, BUN/ Creatinine Ratio 14, Glucose Level 102, Calcium Level 6.5L Assessment/Plan Assessment/Plan Assess & Plan/Chief Complaint left leg chronic venous insufficiency vs lymphedema with cellulitis. improving with IV abx and elevation/wrap. continue current regimen. Clinical Quality Measures DVT/VTE Risk/Contraindication: Risk Factor Score Per Nursin RFS Level Per Nursing on Admit: 4+=Very High MELITA MATOS MD Sep 29, 2016 11:43 am
[2016-09-29 12:00] VITALS: BP 117/56
[2016-09-29] MEDS ORDERED: fentaNYL PATCH 100 MCG (DURAGESIC) TD SCH (12:00)
[2016-09-29] MEDS ORDERED: oxyCODONE/APAP 7.5-325 MG (PERCOCET 7.5) TABLET PO SCH (13:00)
[2016-09-29] MEDS: meTOprolol TARTRATE 25 MG (LOPRESSOR) TABLET PO SCH ×2 (13:24→20:58)
[2016-09-29] MEDS: KCL 20 MEQ TAB (K-DUR) PO SCH ×2 (13:24→17:03)
[2016-09-29] MEDS: ISOSORBIDE MONONITRATE 30 MG (IMDUR) TAB PO SCH (13:25)
[2016-09-29] MEDS: POTASSIUM CL 10MEQ/50ML IVPB 50 ML IV SCH ×4 (13:27→17:01)
[2016-09-29] MEDS: FENTANYL PATCH REMOVAL TP SCH ×2 (13:28→15:30)
[2016-09-29] MEDS ORDERED: MAGNESIUM 1 GM/100 ML IVPB 100 ML IV ONE (13:59)
--- NOTE | 2016-09-29 15:52 | Physical Therapy Evaluation ---
PT Evaluation-General Medical Diagnosis Admission Date Sep 28, 2016 at 16:40 Medical Diagnosis: weakness Onset Date: Sep 28, 2016 Therapy Diagnosis Therapy Diagnosis: impaired mobility, strength, endurance Height/Weight Height (Feet): 5 Height (Inches): 2.00 Weight (Pounds): 277 Weight (Ounces): 2.0 Precautions Precautions/Isolations: Fall Prevention, Standard Precautions Referral Physician: Claudia Pino DO Reason for Referral: Evaluation/Treatment Medical History Pertinent Medical History: Atrial Fib, Arthritis, CAD, DM, Diverticulitis, HTN , Hypothroidism, [place] Additional Medical History former smoker, edema, falls, cellulitis, chronic anemia, chronic dyspnea (home O2), sleep apnea, tachycardia, CHF, DVT, high cholesterol, UTI-chronic, 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 Current History came to ER with cellulitis also discovered renal failure Reviewed History: Yes Social History Home: Single Level Current Living Status: Other Family Entry Into Home: Stairs With Railing PT Steps Into Home: 3 Prior/Core FIM Prior Level of Function Functional [place] Measure 0=Not Assessed/NA 4=Minimal Assistance 1=Total Assistance 5=Supervision or Setup 2=Maximal Assistance 6=Modified [place] 3=Moderate Assistance 7=Complete [place] Bed Mobility: 1 Transfers (B,C,W/C) (FIM): 1 Gait: 1 Patient uses a 4 wheeled walker at home for short distances she says about 15' PT Evaluation-Current Subjective Patient in bed pre tx, agrees to PT, states she does not have any pain while lying down, but when standing her pain in her knees gets progressively worse with time. Pt/Family Goals "to go home" Objective Patient Orientation: Person, Place, Situation Attachments: Oxygen, IV ROM/Strength ROM Lower Extremities limited by edema Strenght Lower Extremities right lower extremity 3-/5 gross, left lower extremity 3/5 gross Neuromuscular (Tone, Coordination, Reflexes) WNL Sensory Vision: Wears Glasses Hearing: Functional Sensation Right Lower Extremit: Intact Sensation Left Lower Extremity: Intact Sensation Lower Extremities patient denies any numbness or tingling in either leg Transfers Functional [place] Measure 0=Not Assessed/NA 4=Minimal Assistance 1=Total Assistance 5=Supervision or Setup 2=Maximal Assistance 6=Modified [place] 3=Moderate Assistance 7=Complete [place] Transfers (B, C, W/C) (FIM): 4 Scootin Rollin Supine to/from Sit: 5 Sit to/from Stand: 4 Patient stood at the edge of the bed with CGA, she was only able to stand for about 20 seconds Balance Sitting Static: Normal Sitting Dynamic: Normal Standing Static: Fair Standing Dynamic: Fair Treatment bilateral lower extremity seated exercises x 10 (AP, LAQ, hip flexion) Assessment/Needs Patient has impaired general mobility, strength, endurance Rehab Potential: Fair PT Manager Of Disaster Recovery Goals Alf Goals PT Manager Of Disaster Recovery Goals Time Frame: Oct 06, 2016 Transfers (B,C,W/C) (FIM): 5 Gait (FIM): 1 Distance: 10' Gait Level of Assist: 4 Gait Assistive Device: FWW PT Plan Problem List Problem List: Activity Tolerance, Functional Strength, Safety, Balance, Gait, Transfer, Bed Mobility, ROM Treatment/Plan Treatment Plan: Continue Plan of Care Treatment Plan: Bed Mobility, Education, Functional Activity Rashid, Functional Strength, Gait, Safety, Therapeutic Exercise, Transfers Treatment Duration: Oct 06, 2016 # of days/week 5-6 Visits Per Week: 5-6 Minutes/Day (M-F): 15-30 Minutes/Day (Sat/Paredes): 15-30 Pt/Family Agrees w/Plan: Yes Safety Risks/Education Patient Education: Transfer Techniques, Correct Positioning, Safety Issues Teaching Recipient: Patient Teaching Methods: Demonstration, Discussion Response to Teaching: Reinforcement Needed Discharge Recommendations Plan Patient will perform bed mobility and transfer training, balance and endurance training, functional strengthening, stair training, gait training, education, to improve functional mobility and independence at home. Therapy D/C Recommendations: Home w/ Family Support Time/GCodes Time In: 1530 Time Out: 1545 Total Billed Treatment Time: 15 Total Billed Treatment 1 visit EVM 15 min CASEY MARTINEZ PT Sep 29, 2016 15:52
[2016-09-29 16:00] VITALS: BP 107/55
[2016-09-29] MEDS ORDERED: VANCOMYCIN INJECTION 1,750 MG in NS IV 500 ML 500 ML IV SCH (18:00)
[2016-09-29] MEDS ORDERED: ATORVASTATIN 80 MG (LIPITOR) TABLET PO SCH (21:00)
[2016-09-30 00:52] VITALS: BP 97/54
[2016-09-30] MEDS: NS W/KCL 20 MEQ/L 1,000 ML IV SCH (05:31)
[2016-09-30 05:41] LABS: BASOPHILS % (AUTO) 0 % (0-10); EOSINOPHILS # (AUTO) 0.8 10^3/uL (0.0-0.3); EOSINOPHILS % (AUTO) 12 % (0-10); LYMPHOCYTES # (AUTO) 1.2 X 10^3 (1.0-4.0); LYMPHOCYTES % (AUTO) 18 % (12-44); MEAN CORPUSCULAR HEMOGLOBIN 28 PG (25-34); MEAN CORPUSCULAR HGB CONC 29 G/DL (32-36); MEAN CORPUSCULAR VOLUME 95 FL (80-99); MEAN PLATELET VOLUME 9.4 FL (7.4-10.4); MONOCYTES # (AUTO) 0.6 X 10^3 (0.0-1.0); MONOCYTES % (AUTO) 9 % (0-12); NEUTROPHILS # (AUTO) 4.1 X 10^3 (1.8-7.8); NEUTROPHILS % (AUTO) 61 % (42-75); PLATELET COUNT 226 10^3/uL (130-400); RED BLOOD COUNT 2.86 10^6/uL (4.35-5.85); RED CELL DISTRIBUTION WIDTH 15.3 % (10.0-14.5); WHITE BLOOD COUNT 6.7 10^3/uL (4.3-11.0)
[2016-09-30 05:56] LABS: ALBUMIN 2.8 G/DL (3.2-4.5); BILIRUBIN,TOTAL 0.3 MG/DL (0.1-1.0); CALCIUM 6.6 MG/DL (8.5-10.1); CREATININE SERUM 1.11 MG/DL (0.60-1.30); POTASSIUM 3.8 MMOL/L (3.6-5.0); TOTAL PROTEIN 6.2 G/DL (6.4-8.2)
[2016-09-30] MEDS: KCL 20 MEQ TAB (K-DUR) PO SCH (06:22)
[2016-09-30] MEDS: CLINDAMYCIN 900 MG/NS 50 ML IVPB IV SCH ×2 (06:23)
[2016-09-30] MEDS ORDERED: LEVOTHYROXINE 100 MCG (LEVOTHROID) TAB PO SCH (06:30)
[2016-09-30] MEDS ORDERED: LEVOTHYROXINE 75 MCG (LEVOTHROID) TABLET PO SCH (06:30)
[2016-09-30] MEDS ORDERED: PANTOPRAZOLE 40 MG (PROTONIX) TAB PO SCH (07:00)
[2016-09-30] MEDS ORDERED: FERROUS SULF 325 MG (IRON) TAB PO SCH (07:00)
[2016-09-30 08:00] VITALS: BP 133/61
[2016-09-30] MEDS ORDERED: CATHETER FLUSH 10 ML SYR IV PRN (08:15)
[2016-09-30] MEDS: ISOSORBIDE MONONITRATE 30 MG (IMDUR) TAB PO SCH (08:37)
[2016-09-30] MEDS: oxyCODONE/APAP 10/325MG (PERCOCET 10) TABLET PO PRN (08:37)
[2016-09-30] MEDS: meTOprolol TARTRATE 25 MG (LOPRESSOR) TABLET PO SCH (08:38)
[2016-09-30] MEDS ORDERED: oxyCODONE/APAP 7.5-325 MG (PERCOCET 7.5) TABLET PO SCH (09:00)
[2016-09-30] MEDS ORDERED: ASPIRIN E.C. 81 MG (ECOTRIN) TAB PO SCH (09:00)
[2016-09-30] MEDS ORDERED: KCL 20 MEQ TAB (K-DUR) PO NR (09:30)
--- NOTE | 2016-09-30 10:54 | Discharge Summary-Hospitalist ---
Diagnosis/Chief Complaint Date of Admission Sep 28, 2016 at 16:40 Date of Discharge Admission Diagnosis Assessment: Right lower extremity cellulitis Chronic lymphedema Acute renal failure creatinine 1.6 Hypokalemia severe at 2.8 Hypertension Hypothyroidism Hyperlipidemia Chronic angina Chronic anemia transfusion dependent managed by hematology Dr. Munroe Morbid obesity Discharge Diagnosis Assessment: Right lower extremity cellulitis all to discharge will not go home on by mouth antibiotics Chronic lymphedema Acute renal failure creatinine 1.6 now normalized at discharge Hypokalemia severe at 2.8 resolved at discharge Hypertension Hypothyroidism Hyperlipidemia Chronic angina Chronic anemia transfusion dependent managed by hematology Dr. Munroe Morbid obesity Plan: Restart home meds Labs recheck tomorrow morning Possible DC tomorrow Improve personal hygiene PT Abx Monitor hgb but may need another unit tomorrow Reason Hospital Visit/Course CC: Right leg cellulitis HPI: This is a 61 yoWF pt of Dr Mckeon's at [facility] w/ history of edema and recent fall on right leg that developed cellulitis and was placed on Bactrim which was unsuccessful at resolving issues. Pt had Creat 1.6 and K+ of 2.8 revealing renal failure, so pt was admitted to replace electrolyte abnormalities and manage cellulitis Patient Interview: Pt live at home with her daughters and two grandson. Pt feels that her leg is okay Pt confirms that Dr. Shearer is PCP and that she was placed on Bactrim BID The pain is not bothering her as much. Lab results discussed with pt. Physical exam was stable. Pt uses a walker at home Received 1 unit of blood. Pt has chronic anemia and is transfusion dependent managed by Dr. Ramesh Scribed by Dread Fox under the direct supervision of Dr. Ireland. Notes from 09/30/16 Chart Review: No fever, vitals stable, WBC 6.7, Hgb 8, K+ 3.8, Creat 1.11, transfusion dependent Patient Interview: Blood work discussed w/pt, everything looks good. Pt will need to wear davie wraps at home to help prevent return of infection. Pt uses [facility] pharmacy Physical exam stable. Pt admits to not having to take her water pill, she takes it occasionally when she feels she needs it. Pt asked about the dosage of K+ that she is on at home, she does not believe it is enough. Pt received K+ today. PCP Dr. Mckeon. No fever, vital signs stable, pleasant, improved Regular rate and rhythm, clear to auscultation bilaterally but slight wheeze noted No edema Plan: DC Davie wraps at home. IV Lasix 1 dose before discharge then resume home diuretics Increase home dosage of K+ will be up to PCP Follow up w/Dr. Mckeon Tuesday Scribed by Dread Fox under the direct supervision of Dr. Ireland. Discharge Summary Discharge Physical Examination Allergies: Coded Allergies: ceftriaxone (Verified Allergy, Unknown, 09/28/16) ibuprofen (Verified Allergy, Unknown, PT TAKES ASA AT HOME, 09/29/16) PER MED REC Vitals & I&Os Vital Signs Date Time Temp Pulse Resp B/P (MAP) Pulse Ox O2 Delivery O2 Flow Rate FiO2 09/30/16 08:00 96.5 74 22 133/61 97 Room Air 09/29/16 21:00 3.00 Hospital Course Labs (last 24 hrs) Laboratory Tests 09/29/16 16:27: Lab Scanned Report Transfusion Reaction Form 09/30/16 05:18: White Blood Count 6.7, Red Blood Count 2.86L, Hemoglobin 8.0L, Hematocrit 27L, Mean Corpuscular Volume 95, Mean Corpuscular Hemoglobin 28, Mean Corpuscular Hemoglobin Concent 29L, Red Cell Distribution Width 15.3H, Platelet Count 226, Mean Platelet Volume 9.4, Neutrophils (%) (Auto) 61, Lymphocytes (%) (Auto) 18, Monocytes (%) (Auto) 9, Eosinophils (%) (Auto) 12H, Basophils (%) (Auto) 0, Neutrophils # (Auto) 4.1, Lymphocytes # (Auto) 1.2, Monocytes # (Auto) 0.6, Eosinophils # (Auto) 0.8H, Basophils # (Auto) 0.0, Sodium Level 142, Potassium Level 3.8, Chloride Level 102, Carbon Dioxide Level 30, Anion Gap 10, Blood Urea Nitrogen 17, Creatinine 1.11, Estimat Glomerular Filtration Rate 50, BUN/ Creatinine Ratio 15, Glucose Level 96, Calcium Level 6.6L, Total Bilirubin 0.3, Aspartate Amino Transf (AST/SGOT) 18, Alanine Aminotransferase (ALT/SGPT) 11, Alkaline Phosphatase 77, Total Protein 6.2L, Albumin 2.8L Microbiology 09/28/16 Blood Culture - Preliminary, Resulted No growth Pending Labs Laboratory Tests 09/30/16 05:18: White Blood Count 6.7, Red Blood Count 2.86, Hemoglobin 8.0, Hematocrit 27, Mean Corpuscular Volume 95, Mean Corpuscular Hemoglobin 28, Mean Corpuscular Hemoglobin Concent 29, Red Cell Distribution Width 15.3, Platelet Count 226, Mean Platelet Volume 9.4, Neutrophils (%) (Auto) 61, Lymphocytes (%) (Auto) 18, Monocytes (%) (Auto) 9, Eosinophils (%) (Auto) 12, Basophils (%) (Auto) 0, Neutrophils # (Auto) 4.1, Lymphocytes # (Auto) 1.2, Monocytes # (Auto) 0.6, Eosinophils # (Auto) 0.8, Basophils # (Auto) 0.0, Sodium Level 142, Potassium Level 3.8, Chloride Level 102, Carbon Dioxide Level 30, Anion Gap 10, Blood Urea Nitrogen 17, Creatinine 1.11, Estimat Glomerular Filtration Rate 50, BUN/ Creatinine Ratio 15, Glucose Level 96, Calcium Level 6.6, Total Bilirubin 0.3, Aspartate Amino Transf (AST/SGOT) 18, Alanine Aminotransferase (ALT/SGPT) 11, Alkaline Phosphatase 77, Total Protein 6.2, Albumin 2.8 Discharge Home Medications: Active Scripts Active Reported Sulfamethoxazole-Tmp Ds Tablet (Sulfamethoxazole/Trimethoprim) 1 Each Tablet 1 Tab PO BID FILLED 09/26/16 #20 FOR A 10 DAY THERAPY Cyclobenzaprine HCl 10 Mg Tablet 10 Mg PO TID PRN Oxycodon-Acetaminophen 7.5-325 (Oxycodone HCl/Acetaminophen) 1 Each Tablet 1 Tab PO TID Potassium Chloride 20 Meq Tablet.er 20 Meq PO BID Fentanyl Patch 100 MCG (Fentanyl) 1 Each Patch.td72 100 Mcg TD EVERY 72 HOURS Metolazone 5 Mg Tablet 5 Mg PO DAILY Metoprolol Tartrate 25 Mg Tablet 25 Mg PO BID Ferrous Sulfate 325 Mg Tablet 325 Mg PO DAILY Levothyroxine Sodium 175 Mcg Tablet 175 Mcg PO DAILY Isosorbide Mononitrate ER (Isosorbide Mononitrate) 30 Mg Tab.er.24h 30 Mg PO DAILY Atorvastatin Calcium 80 Mg Tablet 80 Mg PO HS Metformin HCl 500 Mg Tablet 500 Mg PO BID Omeprazole 40 Mg Capsule.dr 40 Mg PO DAILY Aspirin Ec 81 Mg (Aspirin) 81 Mg Tabec 81 Mg PO DAILY Instructions to patient/family Please see electonic discharge instructions given to patient. Clinical Quality Measures DVT/VTE Risk/Contraindication: Risk Factor Score Per Nursin RFS Level Per Nursing on Admit: 4+=Very High KASSIDY IRELAND DO Sep 30, 2016 10:54
--- NOTE | 2016-09-30 11:19 | Physical Therapy Progress Note ---
Therapy Progress Note PT observed patient and family performing bed mobility and transfers as they do at home per their report. Patient will dismiss to home on this date and declined PT this a.m. Patient and family report she is "back to normal". PT to dismiss from services at this time. 1 JACQUELINE Aponte PT Sep 30, 2016 11:19
[2016-09-30 17:00] VITALS: BP 128/88
[2016-09-30] MEDS ORDERED: TROUGH ORDER-PHARMACY XX NR (17:00)
[2016-10-01] MEDS ORDERED: FUROSEMIDE 40 MG/4 ML INJ (LASIX) IVP SCH (09:00)
== END 2016-09-30 17:00 | disposition home or self-care (01) | DRG 603 ==
LOC: EDUNIT# 14:03 → ER 14:04 → 4TH 16:40
PROVIDERS: ADMIT Internal Medicine; ATTEND Internal Medicine
DX: L03.115 Cellulitis of right lower limb (principal); N17.9 Acute kidney failure, unspecified; I25.110 Atherosclerotic heart disease of native coronary artery with unstable angina pectoris; E66.01 Morbid (severe) obesity due to excess calories; Z68.43 Body mass index [BMI] 50.0-59.9, adult; E87.6 Hypokalemia; D64.9 Anemia, unspecified; I87.2 Venous insufficiency (chronic) (peripheral); I89.0 Lymphedema, not elsewhere classified; I48.91 Unspecified atrial fibrillation; I10 Essential (primary) hypertension; E78.5 Hyperlipidemia, unspecified; J44.9 Chronic obstructive pulmonary disease, unspecified; E03.9 Hypothyroidism, unspecified; E11.9 Type 2 diabetes mellitus without complications; Z95.5 Presence of coronary angioplasty implant and graft
CPT/HCPCS: 36415; 73590; 73610; 80048; 80053; 83605; 85025; 85379; 85652; 86141; 86850; 86900; 86901; 86920; 87040; 96361; 96365; 96375

== ENCOUNTER 2016-10-13 13:16 | Outpatient (RCR) | payer MEDICAID ==
[2016-09-15 14:40] LABS: BASOPHILS % (AUTO) 0 % (0-10); EOSINOPHILS # (AUTO) 1.1 10^3/uL (0.0-0.3); EOSINOPHILS % (AUTO) 11 % (0-10); LYMPHOCYTES # (AUTO) 1.9 X 10^3 (1.0-4.0); LYMPHOCYTES % (AUTO) 19 % (12-44); MEAN CORPUSCULAR HEMOGLOBIN 28 PG (25-34); MEAN CORPUSCULAR HGB CONC 30 G/DL (32-36); MEAN CORPUSCULAR VOLUME 95 FL (80-99); MEAN PLATELET VOLUME 9.4 FL (7.4-10.4); MONOCYTES # (AUTO) 0.8 X 10^3 (0.0-1.0); MONOCYTES % (AUTO) 8 % (0-12); NEUTROPHILS # (AUTO) 6.2 X 10^3 (1.8-7.8); NEUTROPHILS % (AUTO) 61 % (42-75); PLATELET COUNT 249 10^3/uL (130-400); RED BLOOD COUNT 2.99 10^6/uL (4.35-5.85); RED CELL DISTRIBUTION WIDTH 14.9 % (10.0-14.5)
[2016-09-15 15:01] LABS: ALBUMIN 3.4 G/DL (3.2-4.5); BILIRUBIN,TOTAL 0.3 MG/DL (0.1-1.0); CALCIUM 8.4 MG/DL (8.5-10.1); CREATININE SERUM 1.2 MG/DL (0.60-1.30); POTASSIUM 3.5 MMOL/L (3.6-5.0); TOTAL PROTEIN 7.4 G/DL (6.4-8.2)
[2016-09-15 15:21] LABS: THYROID STIMULATING HORMONE 4.57 UIU/ML (0.35-4.94)
[~2016-10-13 13:16] MED LIST changes: +OXYC-464 PO; +SULF-222 PO
[2016-10-13 13:54] LABS: BASOPHILS % (AUTO) 1 % (0-10); EOSINOPHILS # (AUTO) 0.9 10^3/uL (0.0-0.3); EOSINOPHILS % (AUTO) 12 % (0-10); LYMPHOCYTES # (AUTO) 1.3 X 10^3 (1.0-4.0); LYMPHOCYTES % (AUTO) 18 % (12-44); MEAN CORPUSCULAR HGB CONC 29 G/DL (32-36); MEAN CORPUSCULAR VOLUME 95 FL (80-99); MEAN PLATELET VOLUME 8.4 FL (7.4-10.4); MONOCYTES # (AUTO) 0.6 X 10^3 (0.0-1.0); MONOCYTES % (AUTO) 8 % (0-12); NEUTROPHILS # (AUTO) 4.8 X 10^3 (1.8-7.8); NEUTROPHILS % (AUTO) 62 % (42-75); PLATELET COUNT 266 10^3/uL (130-400); RED BLOOD COUNT 3.02 10^6/uL (4.35-5.85); RED CELL DISTRIBUTION WIDTH 15.5 % (10.0-14.5); RETICULOCYTE % 2.48 % (0.50-2.40); WHITE BLOOD COUNT 7.7 10^3/uL (4.3-11.0)
[2016-10-13 14:00] LABS: MEAN CORPUSCULAR HEMOGLOBIN 27 PG (25-34)
[2016-10-13 14:55] LABS: ALBUMIN 3.4 G/DL (3.2-4.5); BILIRUBIN,TOTAL 0.4 MG/DL (0.1-1.0); CALCIUM 8.5 MG/DL (8.5-10.1); CREATININE SERUM 1.27 MG/DL (0.60-1.30); POTASSIUM 3.4 MMOL/L (3.6-5.0); TOTAL PROTEIN 7.6 G/DL (6.4-8.2)
[2016-10-13 15:19] LABS: THYROID STIMULATING HORMONE 8.21 UIU/ML (0.35-4.94)
[2016-11-06] MEDS ORDERED: SULF1TAB35 PO (20:12)
== END 2016-12-14 | disposition home or self-care (01) ==
LOC: ONC 13:16
PROVIDERS: ATTEND Internal Medicine Hematology & Oncology
DX: D50.9 Iron deficiency anemia, unspecified (principal); I25.10 Atherosclerotic heart disease of native coronary artery without angina pectoris; E11.9 Type 2 diabetes mellitus without complications; E66.01 Morbid (severe) obesity due to excess calories; Z68.42 Body mass index [BMI] 45.0-49.9, adult; K44.9 Diaphragmatic hernia without obstruction or gangrene; I10 Essential (primary) hypertension; J44.9 Chronic obstructive pulmonary disease, unspecified; E03.9 Hypothyroidism, unspecified; Z79.01 Long term (current) use of anticoagulants; Z79.899 Other long term (current) drug therapy
CPT/HCPCS: 36415; 80053; 82728; 83540; 84443; 85025; 85045; 99213

== ENCOUNTER 2016-11-06 18:43 | Emergency (ER) | payer MEDICAID ==
[~2016-11-06] VITALS: Ht 157.5 cm; Wt 127.0 kg
[2016-11-06 18:44] VITALS: BP 145/101
--- NOTE | 2016-11-06 18:59 | ED General ---
General Chief Complaint: Laceration Stated Complaint: LACERATION Nursing Triage Note: LACERATION TO RIGHT 4,5TH TOES Nursing Sepsis Screen: No Definite Risk Source of Information: Patient, EMS Exam Limitations: No Limitations History of Present Illness Time Seen by Provider: 18:34 Initial Comments This 61 year old woman presents to the ER via EMS after a closet door fell off its hinges and struck her on the right foot. She has a laceration on the dorsum of the right foot at the base of the toes. She denies any other injuries. Bleeding is controlled at the time of presentation. Patient is not up-to-date on her tetanus immunizations. Allergies and Home Medications Allergies Coded Allergies: ceftriaxone (Verified Allergy, Unknown, 09/28/16) ibuprofen (Verified Allergy, Unknown, PT TAKES ASA AT HOME, 09/29/16) PER MED REC Home Medications Aspirin 81 Mg Tabec, 81 MG PO DAILY, (Reported) Atorvastatin Calcium 80 Mg Tablet, 80 MG PO HS, (Reported) Cyclobenzaprine HCl 10 Mg Tablet, 10 MG PO TID PRN for MUSCLE CRAMPS, (Reported) Fentanyl 1 Each Patch.td72, 100 MCG TD EVERY 72 HOURS, (Reported) Ferrous Sulfate 325 Mg Tablet, 325 MG PO DAILY, (Reported) Isosorbide Mononitrate 30 Mg Tab.er.24h, 30 MG PO DAILY, (Reported) Levothyroxine Sodium 175 Mcg Tablet, 175 MCG PO DAILY, (Reported) Metformin HCl 500 Mg Tablet, 500 MG PO BID, (Reported) Metolazone 5 Mg Tablet, 5 MG PO DAILY, (Reported) Metoprolol Tartrate 25 Mg Tablet, 25 MG PO BID, (Reported) Omeprazole 40 Mg Capsule.dr, 40 MG PO DAILY, (Reported) Oxycodone HCl/Acetaminophen 1 Each Tablet, 1 TAB PO TID, (Reported) Potassium Chloride 20 Meq Tablet.er, 20 MEQ PO BID, (Reported) Sulfamethoxazole/Trimethoprim 1 Each Tablet, 1 EACH PO BID, #10 Prescribed by: ELE DENSON on 11/06/162011 Constitutional: no symptoms reported EENTM: no symptoms reported Respiratory: no symptoms reported Cardiovascular: no symptoms reported Gastrointestinal: no symptoms reported Genitourinary: no symptoms reported Musculoskeletal: see HPI Skin: see HPI Psychiatric/Neurological: No Symptoms Reported Past Opbhquv-Rzabmu-Uvgaps Hx Patient Social History Alcohol Use: Denies Use Recreational Drug Use: No Smoking Status: Never a Smoker 2nd Hand Smoke Exposure: No Recent Foreign Travel: No Contact w/Someone Who Travel: No Recent Infectious Disease Expo: No Recent Hopitalizations: No Immunizations Up To Date Tetanus Booster (TDap): Unknown Date of Pneumonia Vaccine: Mar 13, 2010 Date of Influenza Vaccine: Apr 11, 2015 Seasonal Allergies Seasonal Allergies: No Surgeries HX Surgeries: Yes (COLON POLYP REMOVAL, MULTIPLE HERNIA REPAIRS, D&C) Surgeries: Abdominal, Adenoidectomy, Cardiac, Coronary Stent, Eye Surgery, Gallbladder, Tonsillectomy, Tubal Ligation Respiratory Hx Respiratory Disorders: Yes (CHRONIC DYSPNEA--USES O2 AT HOME, ESPECIALLY AT NIGHT) Respiratory Disorders: Pneumonia, Sleep Apnea, COPD Cardiovascular Hx Cardiac Disorders: Yes (TACHYCARDIA, STENTS X 1, CHF) Cardiac Disorders: Atrial Fibrillation, Chronic Edema/Swelling, Coronary Artery Disease, Deep Vein Thrombosis, Heart Attack, High Cholesterol, Hypertension Neurological Hx Neurological Disorders: No 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 System Hx 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 Disorders: No Sexually Transmitted Disease: No HIV/AIDS: No Female 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 Disorders: Denies 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 ) Gastrointestinal Disorders: Abdominal Hernia, Diverticulosis, Polyps, Gall Bladder Disease Musculoskeletal Hx Musculoskeletal Disorders: Yes (CHRONIC GENERALIZED PAIN--NARCOTIC-DEPENDENT ) Musculoskeletal Disorders: Degenerate Disk Disease, Arthritis, Chronic Back Pain Endocrine Hx Endocrine Disorders: Yes (MORBID OBESITY) Endocrine Disorders: Hypothyroidsim, Diabetes, Non-Insulin dep HEENT HX ENT Disorders: Yes HEENT Disorders: Cataract, Glaucoma Loss of Vision: Denies Hearing Impairment: Denies Cancer Hx Cancer: Yes Cancer: Colon Psychosocial Hx Psychiatric Problems: No Integumentary HX Skin/Integumentary Disorder: Yes (CELLULITIS) Skin/Integumentary Disorders: Eczema Blood Transfusions Hx Blood Disorders: Yes (CHRONIC ANEMIA) Adverse Reaction to a Blood Tr: No Family Medical History Family Medial History: Cancer 03 MOTHER, Onset:40's - 50 Family history: Cardiovascular disease 03 FATHER, Onset:40's - 50 03 MOTHER, Onset:30's - 40 Myocardial infarction 03 MOTHER, Onset:30's - 40 Physical Exam Vital Signs Vital Sign - Last 12Hours 11/06/16 18:44 Temp 97.1 Pulse 65 Resp 18 B/P (MAP) 145/101 Pulse Ox 96 O2 Delivery Nasal Cannula O2 Flow Rate 3.00 Capillary Refill : Less Than 3 Seconds General Appearance: WD/WN, Mild Distress, Obese HEENT: PERRL/EOMI, Normal ENT Inspection Respiratory: Lungs Clear, Normal Breath Sounds, No Accessory Muscle Use, No Respiratory Distress Cardiovascular: Regular Rate, Rhythm, No Murmur Extremity: Pedal Edema, Other (chronic lower extremity edema equal bilaterally. Pain and ecchymosis to the right fourth toe. 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 Wound Length (cm): 2 Wound's Depth, Shape: linear, sub Q Wound Explored: clots removed Irrigated w/ Saline (ccs): 1000 Betadine Prep?: Yes (2% lidocaine) Volume Anesthetic (ccs): 3 Suture: Prolene Suture Size: 4-0 Number of Sutures: 4 Sterile Dressing Applied?: Yes Progress Wound was anesthetized with local 2 percent lidocaine. Clots were removed and wound was irrigated. Skin was scrubbed with water and chlorhexidine. Wound was again rinsed and Betadine was applied. Wound was repaired. Gauze covered in antibiotic ointment was placed between the toes. Patient was informed to remove the gauze tomorrow and to return in 7-10 days to have the sutures removed. Progress/Results/Core Measures Results/Orders My Orders Orders - ELE PEREYRA MD Foot, Right, 3 View (11/06/16 18:46) Dipht,Pertuss(Acell),Tet Adult (Boostrix (11/06/16 19:00) Lidocaine 2% Injection 20 Ml (Xylocaine (11/06/16 19:00) Oxycodone/Apap 5/325mg Tablet (Percocet (11/06/16 19:45) Sulfamethoxazole/Trimet Ds Tab (Bactrim (11/06/16 20:00) Medications Given in ED Vital Signs/I&O Blood Pressure Mean: 116 Progress Note #1: Time: 18:59 Progress Note Patient seen and examined. X-rays pending. Boostrix immunization ordered. Progress Note #2: Progress Note Wound was cleaned and repaired with suture. Patient received oral antibiotics for prophylaxis prior to dismissal. Antibiotics were given in this particular case as patient was felt to be at higher risk for infection because of chronic edema, vascular insufficiency, and underlying comorbidities. Percocet 10 mg was given to help control patient's pain. She usually takes 7.5 mg of Percocet at home for chronic pain issues. Diagnostic Imaging Diagonstic Imaging: Xray Plain Films/CT/US/NM/MRI: other (right foot) Comments X-ray the right foot viewed by me and report reviewed. See report below: NAME: RENÉ ARTHUR [facility] REC#: [id number] PT STATUS: REG ER : 1955 PHYSICIAN: ELE PEREYRA MD ADMIT DATE: 11/06/16/ER Draft Date of Exam:11/06/16 FOOT, RIGHT, 3 VIEW INDICATION: Hit fourth toe on a door, pain FINDINGS: 3 views of the right foot demonstrate osteopenia. No evidence of fracture is present. On the oblique view the irregularity of the proximal phalanx appears to be soft tissue air in a skin fold. There is fairly severe osteopenia. Soft tissue swelling is present over the dorsum of the foot. IMPRESSION: 1. There is soft tissue swelling over the dorsum of the foot and diffuse osteopenia. 2. On oblique view, there is lucency of the proximal phalanx of fourth digit; this appears to be air within a skin fold. Dictated on workstation # [id number] Dict: 11/06/161912 Trans: 11/06/161917 [facility] [id number] Interpreted by: STAN MA MD Departure Impression Impression: Primary Impression: Toe laceration Qualified Codes: S91.114A - Laceration without foreign body of right lesser toe(s) without damage to nail, initial encounter Additional Impression: Crush injury, toe Qualified Codes: S97.101A - Crushing injury of unspecified right toe(s), initial encounter Disposition: 01 HOME, SELF-CARE Condition: Improved Departure-Patient Inst. Decision time for Depature: :30 Referrals: JAN HERNANDEZ MD (PCP/Family) Primary Care Physician Patient Instructions: Laceration Repair With Stitches (DC) Add. Discharge Instructions: Keep foot elevated as much as possible over the next few days. You may bathe as usual but avoid submersion until sutures are removed. Have sutures removed in 7-10 days. Monitor for signs of infection such as increasing pain, increasing redness, fever, or puslike drainage. Return to care immediately if you notice these symptoms. Complete antibiotics as prescribed. You may apply antibiotic ointment to keep dressing from sticking to the wound. All discharge instructions reviewed with patient and/or family. Voiced understanding. Scripts Sulfamethoxazole/Trimethoprim (Bactrim Ds Tablet) 1 Each Tablet 1 EACH PO BID, #10 TAB Prov: ELE PEREYRA MD 11/06/16 ELE PEREYRA MD November 06, 2016 18:59
[2016-11-06] MEDS ORDERED: LIDOCAINE 2% 20 ML (XYLOCAINE) VIAL INJ ONE (19:00)
[2016-11-06] MEDS ORDERED: TETANUS,DIPTH,PERTUSS P/F (BOOSTRIX) 0.5 ML VIAL IM ONE (19:00)
--- NOTE | 2016-11-06 19:18 | Diagnostic Imaging Report ---
INDICATION: Hit fourth toe on a door, pain FINDINGS: 3 views of the right foot demonstrate osteopenia. No evidence of fracture is present. On the oblique view the irregularity of the proximal phalanx appears to be soft tissue air in a skin fold. There is fairly severe osteopenia. Soft tissue swelling is present over the dorsum of the foot. IMPRESSION: 1. There is soft tissue swelling over the dorsum of the foot and diffuse osteopenia. 2. On oblique view, there is lucency of the proximal phalanx of fourth digit; this appears to be air within a skin fold. Dictated by: Dictated on workstation # [id number]
[2016-11-06] MEDS ORDERED: oxyCODONE/APAP 5/325MG (PERCOCET 5) TABLET PO ONE (19:45)
[2016-11-06] MEDS ORDERED: TRIM/SULFAMETH 160/800 (SEPTRA DS) TAB PO ONE (20:00)
[2016-11-06] MEDS ORDERED: SULF1TAB35 PO (20:12)
== END 2016-11-06 20:31 | disposition home or self-care (01) ==
LOC: EDUNIT# 18:43 → ER 18:44
DX: S91.114A Laceration without foreign body of right lesser toe(s) without damage to nail, initial encounter (principal); S97.81XA Crushing injury of right foot, initial encounter; Z23 Encounter for immunization; M85.89 Other specified disorders of bone density and structure, multiple sites; I10 Essential (primary) hypertension; I25.10 Atherosclerotic heart disease of native coronary artery without angina pectoris; E11.9 Type 2 diabetes mellitus without complications; E66.01 Morbid (severe) obesity due to excess calories; I48.2 Chronic atrial fibrillation; Z79.82 Long term (current) use of aspirin; Z79.84 Long term (current) use of oral hypoglycemic drugs; Z79.899 Other long term (current) drug therapy; Z95.5 Presence of coronary angioplasty implant and graft; W20.8XXA Other cause of strike by thrown, projected or falling object, initial encounter; Y92.009 Unspecified place in unspecified non-institutional (private) residence as the place of occurrence of the external cause; Y99.8 Other external cause status
CPT/HCPCS: 12042; 73630; 90471; 90715

== ENCOUNTER → 2017-04-11 | Outpatient (CLI) | payer MEDICAID ==
[~2017-04-11] MED LIST changes: +BARIUM SUSPENSION 2.1% (VANILLA SILQ) 450 ML PO ONE; +CATHETER FLUSH 10 ML SYR IV PRN; +IOHEXOL 350 MG/ML 100 ML (OMNIPAQUE 350) VIAL IV ONE; +NS 100 ML (IVPB) BAG IV ONE; +SULF1TAB35 PO
[2017-04-11 14:56] LABS: CREATININE SERUM 1.03 MG/DL (0.60-1.30)
--- NOTE | 2017-04-11 17:15 | Diagnostic Imaging Report ---
PROCEDURE: CT abdomen and pelvis without contrast. TECHNIQUE: Multiple contiguous axial images were obtained through the abdomen and pelvis without the use of intravenous contrast. INDICATION: Recurrent large hernia. FINDINGS: The lung bases demonstrate no significant abnormality. The liver, the adrenal glands, and the pancreas appear unremarkable. The gallbladder is not seen, presumably related to prior cholecystectomy. The spleen demonstrates multiple hypodense masses up to 3 cm in size. When compared to 04/18/2015 exam, multiple hypodense masses in the spleen were seen. This is presumably related to an old chronic benign process given the lack of significant change from 2014. The kidneys demonstrate no significant hydronephrosis. There is a hypodense exophytic lesion from the lateral margin of the left kidney measuring 1.5 CM in size suggestive of a cyst. The urinary bladder appears unremarkable. There is a moderate amount of fecal material seen in the colon. There is a 1.6 cm indeterminate mass seen in the lateral aspect of the left breast. Evaluation with mammography and ultrasound is recommended. The uterus and adnexa appear grossly unremarkable. No significant free fluid or fluid collection in the abdomen or pelvis is seen. There is abdominal wall musculature thinning and weakness seen. There are low ventral hernias seen containing mostly omental fat within the lower most aspect of the abdominal wall to the left side. There is a prominent amount of subcutaneous edema also and a significant component of pannus from the anterior abdominal wall fat bulging into the left groin region. There is no inguinal hernia seen. The osseous structures demonstrate prominent degenerative changes in the lumbar spine with mild right convexity scoliosis. IMPRESSION: 1. There are ventral hernias containing mostly fat along the anterior abdominal wall inferiorly and mostly to the left of the midline. This is superimposed on marked obesity with thinning and the suggestion of weakness of the anterior abdominal wall. 2. In addition, there is a relatively large subcutaneous fat pannus folded and projecting over the left groin area, containing subcutaneous edema and fluid. This is the potentially post surgical seroma or may reflect cellulitis. Correlate clinically. 3. A 1.6 cm indeterminate lateral left breast mass. Diagnostic mammogram and ultrasound evaluation are recommended. Report Faxed faxed to Dr. Mickey Day at 5:15 p.m. 04/11/2017/autumn Dictated by: Dictated on workstation # [id number]
== END ==
LOC: RAD 14:29
PROVIDERS: ATTEND Surgery
DX: K43.2 Incisional hernia without obstruction or gangrene (principal); N63.20 Unspecified lump in the left breast, unspecified quadrant; E66.9 Obesity, unspecified
CPT/HCPCS: 36415; 74176; 82565; 84520

== ENCOUNTER → 2017-04-27 | Outpatient (CLI) | payer MEDICAID ==
[~2017-04-27] MED LIST changes: -BARIUM SUSPENSION 2.1% (VANILLA SILQ) 450 ML PO ONE; -CATHETER FLUSH 10 ML SYR IV PRN; -IOHEXOL 350 MG/ML 100 ML (OMNIPAQUE 350) VIAL IV ONE; -METO-270 PO; +METO-387 PO; -NS 100 ML (IVPB) BAG IV ONE
--- NOTE | 2017-04-27 22:35 | Diagnostic Imaging Report ---
Bilateral diagnostic mammogram with tomography. The current study was also evaluated with a Computer Aided Detection (CAD) system. No prior studies are available for comparison. INDICATION: Mass seen along the outer aspect of the left breast. FINDINGS: Nodule seen on CT scan appears to represent lymph node in the axillary tail of the left breast. It is along the far posterior aspect and is only seen on dedicated images involving the axillary tail and axillary area in the left breast. There is otherwise scattered fibroglandular densities with benign-appearing calcifications seen in the breasts with no suspicious mass. No suspicious calcifications are seen. IMPRESSION: 1 cm circumscribed mass in the axillary tail of the left breast is seen and could represent a lymph node, probably matching the CT scan abnormality. Ultrasound evaluation pending. ACR BI-RADS Category 0: Incomplete. (Needs additional imaging evaluation). Result letter will be mailed to the patient. Note: At least 10% of breast cancer is not imaged by mammography. Dictated by: Dictated on workstation # [id number]
--- NOTE | 2017-04-27 22:35 | Diagnostic Imaging Report ---
EXAMINATION: Left breast ultrasound. INDICATION: Left breast mass seen on mammogram and CT. FINDINGS: There is a circumscribed nodule with peripheral hypoechoic and central hyperechoic areas suggestive of a lymph node seen in the axilla and measures 1.6 cm. Another adjacent lesion in the axilla measures 2 cm with similar features. There rest of the axilla and ?he upper half of the left breast demonstrate no suspicious lesion. IMPRESSION: Nonspecific mildly enlarged probably reactive lymph nodes in the left axilla and axillary tail of the left breast are seen. Six-month followup ultrasound is recommended to ensure no adverse development. ACR BI-RADS Category 3: Probably benign findings. Result letter will be mailed to the patient. Note: At least 10% of breast cancer is not imaged by mammography. Dictated by: Dictated on workstation # [id number]
== END ==
LOC: RAD 12:35
PROVIDERS: ATTEND Surgery
DX: R59.0 Localized enlarged lymph nodes (principal)
CPT/HCPCS: 76642; 77066

== ENCOUNTER 2017-08-02 14:22 | Outpatient (CLI) | payer MEDICAID ==
[~2017-08-02] VITALS: Ht 157.5 cm; Wt 127.1 kg
[~2017-08-02 14:22] MED LIST changes: +ACHD5005 PO; +AZIT250T12 PO; -AZIT250T5 PO; -FERR-74 PO; +FERR325T18 PO; -HYDR-3812 PO
[2017-08-02] MEDS ORDERED: ASPI-999 PO (14:30)
[2017-08-02 14:34] VITALS: BP 157/67
[2017-08-02 15:30] LABS: BASOPHILS % (AUTO) 0 % (0-10); EOSINOPHILS # (AUTO) 0.3 10^3/uL (0.0-0.3); EOSINOPHILS % (AUTO) 4 % (0-10); HEMATOCRIT 33 % (35-52); HEMOGLOBIN 9.9 G/DL (11.5-16.0); LYMPHOCYTES # (AUTO) 1.4 X 10^3 (1.0-4.0); LYMPHOCYTES % (AUTO) 17 % (12-44); MEAN CORPUSCULAR HEMOGLOBIN 30 PG (25-34); MEAN CORPUSCULAR HGB CONC 30 G/DL (32-36); MEAN CORPUSCULAR VOLUME 100 FL (80-99); MEAN PLATELET VOLUME 9.6 FL (7.4-10.4); MONOCYTES # (AUTO) 0.5 X 10^3 (0.0-1.0); MONOCYTES % (AUTO) 6 % (0-12); NEUTROPHILS # (AUTO) 6.5 X 10^3 (1.8-7.8); NEUTROPHILS % (AUTO) 74 % (42-75); PLATELET COUNT 192 10^3/uL (130-400); RED BLOOD COUNT 3.28 10^6/uL (4.35-5.85); RED CELL DISTRIBUTION WIDTH 13.5 % (10.0-14.5); WHITE BLOOD COUNT 8.7 10^3/uL (4.3-11.0)
[2017-08-02] MEDS ORDERED: BIMA2.5D4 OP (15:30)
--- NOTE | 2017-08-02 15:40 | Diagnostic Imaging Report ---
INDICATION: Preop for excision of a right cheek lesion. TIME OF EXAM: 03:17 p.m. COMPARISON: Comparison is made with prior chest from 03/13/2016. FINDINGS: The heart remains enlarged but stable. No infiltrates or failure is detected. No effusion or pneumothorax is seen. IMPRESSION: Cardiomegaly. No acute feature is detected. Dictated by: Dictated on workstation # [id number]
[2017-08-02 15:49] LABS: CALCIUM 9.1 MG/DL (8.5-10.1); CREATININE SERUM 1.06 MG/DL (0.60-1.30); POTASSIUM 3.7 MMOL/L (3.6-5.0)
== END 2017-08-02 15:30 | disposition home or self-care (01) ==
LOC: PREOP 14:22
PROVIDERS: ATTEND Otolaryngology Otolaryngology/Facial Plastic Surgery
DX: Z01.810 Encounter for preprocedural cardiovascular examination (principal); Z01.812 Encounter for preprocedural laboratory examination; Z01.811 Encounter for preprocedural respiratory examination; Z11.2 Encounter for screening for other bacterial diseases; L98.9 Disorder of the skin and subcutaneous tissue, unspecified
CPT/HCPCS: 36415; 71046; 80048; 85025; 87081

== ENCOUNTER 2017-08-05 08:16 | Day surgery (SDC) | payer MEDICAID ==
[~2017-08-05] VITALS: Ht 157.5 cm; Wt 127.1 kg
[~2017-08-05 08:16] MED LIST changes: +ASPI-999 PO; +BIMA2.5D4 OP
[2017-08-05] MEDS ORDERED: LACTATED RINGERS 1,000 ML IV PRN (08:38)
[2017-08-05 08:43] VITALS: BP 160/76
[2017-08-05] MEDS ORDERED: FAMOTIDINE 20MG/2ML IV (PEPCID) IV ONE (08:45)
[2017-08-05] MEDS ORDERED: SEVOFLURANE (ULTANE) 15 ML INHAL SOLN ONE (08:46)
[2017-08-05] MEDS ORDERED: fentaNYL INJECTION 100 MCG/2 ML AMP ONE (08:46)
[2017-08-05] MEDS ORDERED: LIDOCAINE PF 2% 5 ML (XYLOCAINE) VIAL ONE (08:46)
[2017-08-05] MEDS ORDERED: proPOfol 200 MG/20 ML (DIPRIVAN) VIAL IV ONE (08:46)
[2017-08-05] MEDS ORDERED: MIDAZOLAM 2 MG/2 ML (VERSED) VIAL ONE (08:46)
[2017-08-05] MEDS ORDERED: SUCCINYLCHOLINE INJ 100 MG/5 ML SYR ONE (08:46)
--- NOTE | 2017-08-05 09:46 | Progress Note-Pre Operative ---
Pre-Operative Progress Note H&P Reviewed The H&P was reviewed, patient examined and no changes noted. Date Seen by Provider: Aug 05, 2017 Time Seen by Provider: 09:00 Date H&P Reviewed: Aug 05, 2017 Time H&P Reviewed: 09:00 Pre-Operative Diagnosis: Large Right Cheek Lesion MILENA KILLIAN MD Aug 05, 2017 9:46 am
[2017-08-05] MEDS ORDERED: LIDOCAINE/EPI 1%-1:200,000 (XYLOCAINE) 10 ML VIAL ONE (09:59)
--- NOTE | 2017-08-05 11:11 | Progress Note-Post Operative ---
Post-Operative Progess Note Surgeon (s)/Muffle Worker (s) Surgeon MILENA KILLIAN MD Muffle Worker n/a Pre-Operative Diagnosis Large Right Cheek Lesion Post-Operative Diagnosis same Post-Op Procedure Note Date of Procedure: Aug 05, 2017 Name of Procedure Performed: Excisiobn of Right Cheek Lesion, REconstruction with Cheek advancement Flap Description & Findings Description and Findings: n/a Anesthesia Type get Estimated Blood Loss minimal Packing none. Specimen(s) collected/removed right cheek lesion MILENA KILLIAN MD Aug 05, 2017 11:11 am
[2017-08-05] MEDS ORDERED: ACETAMINOPHEN 325 MG TABLET/CAPLET (TYLENOL) PO PRN (11:15)
[2017-08-05] MEDS ORDERED: HYDROcodone/APAP 5 MG/325 MG (LORTAB) TAB PO PRN (11:15)
[2017-08-05] MEDS ORDERED: MUPIROCIN 2% OINT 22 GM (BACTROBAN) TUBE ONE (11:26)
[2017-08-05] MEDS ORDERED: ONDANSETRON 4 MG/2 ML (SDV) Z0FRAN IVP PRN (12:00)
[2017-08-05] MEDS ORDERED: MEPERIDINE (DEMEROL) INJ 50 MG/ML IVP PRN (12:00)
[2017-08-05] MEDS ORDERED: morphine INJ 10 MG/ML 1ML (SYR OR VIAL) IVP PRN (12:00)
[2017-08-05 12:40] VITALS: BP 160/98
[2017-08-05] MEDS ORDERED: HYDR-3812 PO (13:01)
[2017-08-05 13:10] VITALS: BP 154/83
--- NOTE | 2017-08-05 13:26 | Anesthesia-General Post-Op ---
General Patient Condition Mental Status/LOC: Same as Preop Cardiovascular: Satisfactory Nausea/Vomiting: Absent Respiratory: Satisfactory Pain: Controlled Complications: Absent Post Op Complications Complications None Follow Up Care/Instructions Patient Instructions None needed. Anesthesia/Patient Condition Patient Condition Patient is doing well, no complaints, stable vital signs, no apparent adverse anesthesia problems. No complications reported per nursing. D/C home per [facility] Criteria: No JOSE ALBERTO CLEMENTS CRNA Aug 05, 2017 13:26
[2017-08-05 14:00] VITALS: BP 154/83
== END 2017-08-05 14:01 | disposition home or self-care (01) ==
LOC: SDC 08:16
PROVIDERS: ATTEND Otolaryngology Otolaryngology/Facial Plastic Surgery
DX: C44.320 Squamous cell carcinoma of skin of unspecified parts of face (principal); I25.10 Atherosclerotic heart disease of native coronary artery without angina pectoris; I11.0 Hypertensive heart disease with heart failure; I50.9 Heart failure, unspecified; I48.91 Unspecified atrial fibrillation; E78.00 Pure hypercholesterolemia, unspecified; E11.9 Type 2 diabetes mellitus without complications; J44.9 Chronic obstructive pulmonary disease, unspecified; E03.9 Hypothyroidism, unspecified; G47.33 Obstructive sleep apnea (adult) (pediatric); K21.9 Gastro-esophageal reflux disease without esophagitis; E66.01 Morbid (severe) obesity due to excess calories; Z68.43 Body mass index [BMI] 50.0-59.9, adult; Z86.718 Personal history of other venous thrombosis and embolism; Z79.82 Long term (current) use of aspirin; Z79.84 Long term (current) use of oral hypoglycemic drugs; Z79.899 Other long term (current) drug therapy; Z95.5 Presence of coronary angioplasty implant and graft

== ENCOUNTER → 2017-09-14 | Outpatient (CLI) | payer MEDICAID ==
[~2017-09-14] MED LIST changes: +HYDR-3812 PO
--- NOTE | 2017-09-14 15:44 | Diagnostic Imaging Report ---
PROCEDURE: US right lower extremity venous. TECHNIQUE: Multiple real-time grayscale images were obtained over the right lower extremity in various projections. Additional duplex Doppler and color Doppler images were also obtained. INDICATION: Leg pain and swelling. FINDINGS: Spectral and color flow imaging of the deep venous system was performed. The previous right lower extremity venous Doppler exam of 09/28/2016 failed to show any sign of a deep venous thrombosis. On this exam, there is still generally good blood flow and compressibility at all levels of the deep venous system. There is still no evidence for a deep venous thrombosis. IMPRESSION: There is still no evidence for a deep venous thrombosis of the right lower extremity. Dictated by: Dictated on workstation # [id number]
== END ==
LOC: RAD 14:45
PROVIDERS: ATTEND Nurse Practitioner Family
DX: M79.89 Other specified soft tissue disorders (principal)

== ENCOUNTER → 2017-12-15 | Outpatient (CLI) | payer MEDICAID ==
[~2017-12-15] MED LIST changes: +LEVO200T6; +METF500T5 PO; +OXYC-464
--- NOTE | 2017-12-15 15:17 | Diagnostic Imaging Report ---
Indication: Left axillary lymph node, followup. Comparison is made with prior left breast ultrasound from 04/27/2017. Sonographic interrogation of the left axilla was performed. Previously noted enlarged lymph nodes in the left axilla are no longer visualized. No sonographic abnormality is identified on today's study. Impression: BI-RADS category 1. No sonographic abnormalities identified on today's exam. ACR BI-RADS Category 1: Negative. Result letter will be mailed to the patient. Note: At least 10% of breast cancer is not imaged by mammography. Dictated by: Dictated on workstation # [id number]
== END ==
LOC: RAD 14:00
PROVIDERS: ATTEND Surgery
DX: N63.20 Unspecified lump in the left breast, unspecified quadrant (principal)
CPT/HCPCS: 76642

== ENCOUNTER 2017-12-18 16:57 | Emergency (ER) | payer MEDICAID ==
[~2017-12-18] VITALS: Ht 157.5 cm; Wt 149.7 kg
[~2017-12-18 16:57] MED LIST changes: -LEVO200T6; -OXYC-464
[2017-12-18] MEDS ORDERED: OXYC-464 (17:03)
[2017-12-18] MEDS ORDERED: LEVO200T6 (17:03)
--- NOTE | 2017-12-18 17:26 | ED General ---
General Chief Complaint: General Problems/Pain Stated Complaint: HIP/ABD PAIN Nursing Triage Note: PT BROUGHT IN TO ER BY EMS WITH COMPLAINT OF LEFT HIP/ABD PAIN AND HERNIA Nursing Sepsis Screen: No Definite Risk Source of Information: Patient Exam Limitations: No Limitations History of Present Illness Date Seen by Provider: Dec 18, 2017 Time Seen by Provider: 17:26 Initial Comments 62-year-old female patient presents to the emergency department via [facility] with complaints of left hip pain and lower abdominal pain. Patient is concerned that her incisional hernia has gotten bigger. Left hip pain was sudden onset when she was walking through her house today. Location Injury Occurred: denies known injury Timing/Duration: Other (chronic ventral hernia. Left hip pain just prior to arrival.) Modifying Factors: worse with Movement Allergies and Home Medications Allergies Coded Allergies: ceftriaxone (Verified Allergy, Unknown, 08/02/17) ibuprofen (Verified Allergy, Unknown, PT TAKES ASA AT HOME, 08/02/17) PER MED REC Home Medications Aspirin 81 Mg Tab.chew, 81 MG PO DAILY, (Reported) Atorvastatin Calcium 80 Mg Tablet, 80 MG PO HS, (Reported) Bimatoprost 2.5 Ml Drops, 1 DROP OP HS, (Reported) Fentanyl 1 Each Patch.td72, 100 MCG TD EVERY 72 HOURS, (Reported) Hydrocodone/Acetaminophen 1 Each Tablet, 1-2 EACH PO Q4H Prescribed by: ZACH MOORE on 08/05/17 1301 Isosorbide Mononitrate 30 Mg Tab.er.24h, 30 MG PO DAILY, (Reported) Metformin HCl 500 Mg Tablet, 500 MG PO BID, (Reported) Metoprolol Tartrate 25 Mg Tablet, 25 MG PO BID, (Reported) Omeprazole 40 Mg Capsule.dr, 40 MG PO DAILY, (Reported) Potassium Chloride 20 Meq Tablet.er, 20 MEQ PO BID, (Reported) Patient Home Medication List Home Medication List Reviewed: Yes Review of Systems Constitutional: No chills, No fever, No malaise EENTM: no symptoms reported Respiratory: no symptoms reported Cardiovascular: no symptoms reported Gastrointestinal: see HPI, abdominal pain (lower abdominal pain); No constipation, No diarrhea, No nausea, No vomiting Genitourinary: no symptoms reported Musculoskeletal: see HPI; No back pain; joint pain (left hip pain); No joint swelling, No neck pain Skin: no symptoms reported Psychiatric/Neurological: No Symptoms Reported All Other Systems Reviewed Negative Unless Noted: Yes (Negative excepted noted.) Past Motmbkg-Clsorp-Jpwxjh Hx Past Med/Social Hx: Reviewed Nursing Past Med/Soc Hx Patient Social History Alcohol Use: Denies Use Recreational Drug Use: No Smoking Status: Never a Smoker 2nd Hand Smoke Exposure: No Recent Foreign Travel: No Contact w/Someone Who Travel: No Recent Infectious Disease Expo: No Recent Hopitalizations: No Immunizations Up To Date Tetanus Booster (TDap): Unknown Date of Pneumonia Vaccine: Mar 13, 2013 Date of Influenza Vaccine: Mar 28, 2017 Seasonal Allergies Seasonal Allergies: No Past Medical History Surgeries: Yes (COLON POLYP REMOVAL, MULTIPLE HERNIA REPAIRS, D&C) Abdominal, Adenoidectomy, Cardiac, Coronary Stent, Eye Surgery, Gallbladder, Tonsillectomy, Tubal Ligation Respiratory: Yes (CHRONIC DYSPNEA--USES O2 AT HOME, ESPECIALLY AT NIGHT) Sleep Apnea, COPD Cardiac: Yes (TACHYCARDIA, STENTS X 1, CHF) Atrial Fibrillation, Chronic Edema/Swelling, Coronary Artery Disease, Deep Vein Thrombosis, Heart Attack, High Cholesterol, Hypertension Neurological: No 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 Disorders: No Female 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 Disorders: Denies RUBBER DOWN History: Tubal Ligation, Menopausal Sexually Transmitted Disease: No HIV/AIDS: No UTI-Chronic Gastrointestinal: Yes (ENTERO-CUTANEOUS FISTULA TO ABDOMEN. ) Abdominal Hernia, Diverticulosis, Polyps Musculoskeletal: Yes (CHRONIC GENERALIZED PAIN--NARCOTIC-DEPENDENT) Degenerate Disk Disease, Arthritis, Chronic Back Pain Endocrine: Yes (MORBID OBESITY) Hypothyroidsim, Diabetes, Non-Insulin dep Glaucoma Loss of Vision: Denies Hearing Impairment: Denies Cancer: Yes Colon What Type of Treatment Did You: Other Psychosocial: No Integumentary: Yes (CELLULITIS) Eczema Blood Disorders: Yes (CHRONIC ANEMIA) Adverse Reaction/Blood Tranf: No (HAS HAD BLOOD WITH NO REACTION) Family Medical History Reviewed Nursing Family Hx Cancer 03 MOTHER, Onset:40's - 50 Family history: Cardiovascular disease 03 FATHER, Onset:40's - 50 03 MOTHER, Onset:30's - 40 Myocardial infarction 03 MOTHER, Onset:30's - 40 No Pertinent Family Hx Physical Exam Vital Signs Vital Signs - First Documented 12/18/17 16:58 Temp 97.6 Pulse 57 Resp 20 B/P (MAP) 149/73 (98) Pulse Ox 94 O2 Delivery Room Air Capillary Refill : Less Than 3 Seconds Height, Weight, BMI Height: 5', 2.00" Weight: 330lbs 2.0oz, [id number] Method:Stated ,51.2BMI General Appearance: No Apparent Distress, WD/WN, Obese HEENT: PERRL/EOMI, Pharynx Normal Neck: Normal Inspection, Supple Respiratory: Lungs Clear, Normal Breath Sounds, No Accessory Muscle Use, No Respiratory Distress Cardiovascular: Regular Rate, Rhythm, No Murmur, Normal Peripheral Pulses Gastrointestinal: Normal Bowel Sounds, No Pulsatile Mass, Non Tender (unable to reproduce tenderness on exam), Soft, Hernia (large ventral hernia without tenderness.); No Other (no evidence of erythema to the abdominal wall) Back: Normal Inspection Extremity: Normal Capillary Refill, Normal Inspection, Normal Range of Motion, No Calf Tenderness, Pedal Edema (2+ pedal edema bilaterally.), Other (left lateral hip tender to palpation without swelling or deformity. No ecchymosis noted.) Neurologic/Psychiatric: Alert, Oriented x3, No Motor/Sensory Deficits, Normal Mood/Affect Skin: Normal Color, Warm/Dry Procedures/Interventions Suture Size: 4-0 Progress/Results/Core Measures Suspected Sepsis Recent Fever Within 48 Hours: No Infection Criteria Present: None New/Unexplained Altered Menta: No Sepsis Screen: No Definite Risk SIRS Temperature:97.6 Pulse: 57 Respiratory Rate: 20 Laboratory Tests 12/18/17 17:03: White Blood Count 11.0 Blood Pressure 149 /73 Mean: 98 Laboratory Tests 12/18/17 17:03: Creatinine 1.05, Platelet Count 264, Total Bilirubin 0.3 Results/Orders Lab Results Laboratory Tests Test 12/18/17 17:03 Range/Units White Blood Count 11.0 4.3-11.0 10^3/uL Red Blood Count 3.22 L 4.35-5.85 10^6/uL Hemoglobin 9.5 L 11.5-16.0 G/DL Hematocrit 32 L 35-52 % Mean Corpuscular Volume 99 80-99 FL Mean Corpuscular Hemoglobin 30 25-34 PG Mean Corpuscular Hemoglobin Concent 30 L 32-36 G/DL Red Cell Distribution Width 13.9 10.0-14.5 % Platelet Count 264 130-400 10^3/uL Mean Platelet Volume 9.6 7.4-10.4 FL Neutrophils (%) (Auto) 69 42-75 % Lymphocytes (%) (Auto) 21 12-44 % Monocytes (%) (Auto) 6 0-12 % Eosinophils (%) (Auto) 3 0-10 % Basophils (%) (Auto) 0 0-10 % Neutrophils # (Auto) 7.6 1.8-7.8 X 10^3 Lymphocytes # (Auto) 2.3 1.0-4.0 X 10^3 Monocytes # (Auto) 0.7 0.0-1.0 X 10^3 Eosinophils # (Auto) 0.3 0.0-0.3 10^3/uL Basophils # (Auto) 0.0 0.0-0.1 10^3/uL Sodium Level 142 135-145 MMOL/L Potassium Level 3.6 3.6-5.0 MMOL/L Chloride Level 99 98-107 MMOL/L Carbon Dioxide Level 31 21-32 MMOL/L Anion Gap 12 5-14 MMOL/L Blood Urea Nitrogen 12 7-18 MG/DL Creatinine 1.05 0.60-1.30 MG/DL Estimat Glomerular Filtration Rate 53 BUN/Creatinine Ratio 11 Glucose Level 98 70-105 MG/DL Calcium Level 8.1 L 8.5-10.1 MG/DL Total Bilirubin 0.3 0.1-1.0 MG/DL Aspartate Amino Transf (AST/SGOT) 14 5-34 U/L Alanine Aminotransferase (ALT/SGPT) 13 0-55 U/L Alkaline Phosphatase 105 40-136 U/L C-Reactive Protein High Sensitivity 0.95 H 0.00-0.50 MG/DL Total Protein 7.2 6.4-8.2 GM/DL Albumin 3.5 3.2-4.5 GM/DL My Orders Jay [facility] - PO HULL Ct Abdomen/Pelvis W (12/18/17 17:31) Saline Lock/Iv-Start (12/18/17 17:31) Cbc With Automated Diff (12/18/17 17:31) Comprehensive Metabolic Panel (12/18/17 17:31) Hs C Reactive Protein (12/18/17 17:31) Fentanyl Injection (Sublimaze Injection (12/18/17 17:31) Iohexol Injection (Omnipaque 350 Mg/Ml 1 (12/18/17 17:45) Sodium Chloride Flush (Catheter Flush Sy (12/18/17 17:45) Ns (Ivpb) (Sodium Chloride 0.9%) (12/18/17 17:45) Pharmacy Communication (Pharmacy Communi (12/18/17 17:34) Ct Extremity Lower Left Wo (12/18/17 17:34) Ns Iv 1000 Ml (Sodium Chloride 0.9%) (12/18/17 17:59) Oxycodone/Apap 5/325mg Tablet (Percocet (12/18/17 20:02) Medications Given in ED Current Medications Medications Dose Ordered Sig/Giuseppe Route Start Time Stop Time Status Last Admin Dose Admin Iohexol 100 ml ONCE ONCE IV 12/18/17 17:45 12/18/17 17:46 DC 12/18/17 18:23 100 ML Sodium Chloride 250 ml ONCE ONCE IV 12/18/17 17:45 12/18/17 17:46 DC 12/18/17 18:24 80 ML Sodium Chloride 1,000 ml @ 0 mls/hr Q0M ONCE IV 12/18/17 17:59 12/18/17 18:02 DC 12/18/17 19:15 1,000 MLS/HR Vital Signs/I&O 12/18/17 16:58 Temp 97.6 Pulse 57 Resp 20 B/P (MAP) 149/73 (98) Pulse Ox 94 O2 Delivery Room Air Capillary Refill : Less Than 3 Seconds Blood Pressure Mean: 98 Diagnostic Imaging Diagonstic Imaging: CT Plain Films/CT/US/NM/MRI: abdomen, pelvis Comments CT ABDOMEN/PELVIS W INDICATION: Abdominal pain and diarrhea. EXAMINATION: CT abdomen and pelvis was obtained with IV contrast bolus. COMPARISON: 04/11/2017. FINDINGS: The visualized portions of the lung bases are clear. There is cardiomegaly. There is no pleural fluid. There is no free intraperitoneal air. The liver shows no focal lesion. Portions of the abdomen are not included on the field of view. The spleen contains multiple hypodense lesions which appeared similar on 04/11/2017, the lesion inferiorly measuring about 2.9 cm which is unchanged. The adrenals, pancreas and kidneys are unremarkable except for a small cyst in the lower pole of the left kidney which is unchanged. There is no retroperitoneal adenopathy or mass. Complex abdominal wall hernia is seen inferiorly with areas of extensive soft tissue thickening which were present previously but appear worsened compared to the prior study. IMPRESSION: Large complex abdominal wall hernia, inferiorly, with large amount of edema and soft tissue thickening. These findings were present on the prior study of 04/11/2017 but appear worsened. There is no well-defined fluid collection. There is no overt bowel obstruction. There are stable cysts in the left kidney. The spleen again shows multiple small hypodense lesions which appear stable compared to the prior study. There is no other new abnormality. Dictated by: Dictated on workstation # [id number] Reviewed: Reviewed by Me (radiology report reviewed by me) Diagonstic Imaging: CT Plain Films/CT/US/NM/MRI: hip Comments CT EXTREMITY LOWER LEFT WO INDICATION: Left hip pain. CT left hip obtained with axial slices without IV contrast and sagittal and coronal reconstructions. FINDINGS: No fracture or acute bony abnormality is seen. There is hip joint space narrowing with osteophyte formation. There is no lytic or blastic lesion. Soft tissue windows demonstrated no soft tissue mass or evidence of joint effusion. IMPRESSION: Degenerative changes in the left hip are present as above. There is no acute fracture or destructive bony lesion. There is no soft tissue mass or overt joint effusion. Dictated by: Dictated on workstation # [id number] Reviewed: Reviewed by Me (radiology report reviewed by me) Departure Communication (Admissions) 1940 patient case discussed with Dr. Jimenez. Dr. Jimenez recommends discharge to home with follow-up as an outpatient with Dr. Reynoso and Dr. Knapp. All laboratory findings, diagnostic study findings, and recommendations by Dr. Jimenez discussed with the patient and family. All verbalize understanding and agree with the treatment plan. Patient given a dose of Percocet prior to discharge. Patient usually takes Percocet 7.5 mg per her daughter. Impression Primary Impression: Diarrhea Qualified Codes: R19.7 - Diarrhea, unspecified Additional Impressions: Abdominal pain Qualified Codes: R10.30 - Lower abdominal pain, unspecified Incisional hernia without obstruction or gangrene Hip pain, left Disposition: 01 HOME, SELF-CARE Condition: Improved Departure-Patient Inst. Decision time for Depature: 19:32 Referrals: JAN HERNANDEZ MD (PCP/Family) Primary Care Physician TI REYNOSO MD Patient Instructions: Abdominal Wall Hernias, Diarrhea in Adolescents and Adults, Hip Pain, Hip Pain (DC) Add. Discharge Instructions: All discharge instructions reviewed with patient and/or family. Voiced understanding. Continue usual home medications. Ice pack or use a heating pad as needed to the left hip for pain. Follow-up with Dr. Reynoso this week for recheck and reevaluation of the abdominal hernia. Contact his office Tuesday for appointment time. Follow-up with your family practitioner for recheck as an outpatient. If left hip pain continues, they may order an outpatient MRI or bone scan. Call Tuesday for appointment time. Return to the emergency department for worsened symptoms or any other concerns. PO HULL Dec 18, 2017 17:26
[2017-12-18] MEDS ORDERED: fentaNYL INJECTION 100 MCG/2 ML AMP IVP STA (17:31)
[2017-12-18 17:36] LABS: BASOPHILS % (AUTO) 0 % (0-10); EOSINOPHILS # (AUTO) 0.3 10^3/uL (0.0-0.3); EOSINOPHILS % (AUTO) 3 % (0-10); HEMATOCRIT 32 % (35-52); HEMOGLOBIN 9.5 G/DL (11.5-16.0); LYMPHOCYTES # (AUTO) 2.3 X 10^3 (1.0-4.0); LYMPHOCYTES % (AUTO) 21 % (12-44); MEAN CORPUSCULAR HEMOGLOBIN 30 PG (25-34); MEAN CORPUSCULAR HGB CONC 30 G/DL (32-36); MEAN CORPUSCULAR VOLUME 99 FL (80-99); MEAN PLATELET VOLUME 9.6 FL (7.4-10.4); MONOCYTES # (AUTO) 0.7 X 10^3 (0.0-1.0); MONOCYTES % (AUTO) 6 % (0-12); NEUTROPHILS # (AUTO) 7.6 X 10^3 (1.8-7.8); NEUTROPHILS % (AUTO) 69 % (42-75); PLATELET COUNT 264 10^3/uL (130-400); RED BLOOD COUNT 3.22 10^6/uL (4.35-5.85); RED CELL DISTRIBUTION WIDTH 13.9 % (10.0-14.5)
[2017-12-18] MEDS ORDERED: CATHETER FLUSH 10 ML SYR IV PRN (17:45)
[2017-12-18] MEDS ORDERED: NS 250 ML (IVPB) BAG IV ONE (17:45)
[2017-12-18] MEDS ORDERED: IOHEXOL 350 MG/ML 100 ML (OMNIPAQUE 350) VIAL IV ONE (17:45)
[2017-12-18 17:51] LABS: ALBUMIN 3.5 GM/DL (3.2-4.5); BILIRUBIN,TOTAL 0.3 MG/DL (0.1-1.0); CALCIUM 8.1 MG/DL (8.5-10.1); CREATININE SERUM 1.05 MG/DL (0.60-1.30); POTASSIUM 3.6 MMOL/L (3.6-5.0); TOTAL PROTEIN 7.2 GM/DL (6.4-8.2)
[2017-12-18] MEDS ORDERED: NS IV 1000 ML 1,000 ML IV ONE (17:59)
--- NOTE | 2017-12-18 18:47 | Diagnostic Imaging Report ---
INDICATION: Left hip pain. CT left hip obtained with axial slices without IV contrast and sagittal and coronal reconstructions. FINDINGS: No fracture or acute bony abnormality is seen. There is hip joint space narrowing with osteophyte formation. There is no lytic or blastic lesion. Soft tissue windows demonstrated no soft tissue mass or evidence of joint effusion. IMPRESSION: Degenerative changes in the left hip are present as above. There is no acute fracture or destructive bony lesion. There is no soft tissue mass or overt joint effusion. Dictated by: Dictated on workstation # [id number]
--- NOTE | 2017-12-18 18:47 | Diagnostic Imaging Report ---
INDICATION: Abdominal pain and diarrhea. EXAMINATION: CT abdomen and pelvis was obtained with IV contrast bolus. COMPARISON: 04/11/2017. FINDINGS: The visualized portions of the lung bases are clear. There is cardiomegaly. There is no pleural fluid. There is no free intraperitoneal air. The liver shows no focal lesion. Portions of the abdomen are not included on the field of view. The spleen contains multiple hypodense lesions which appeared similar on 04/11/2017, the lesion inferiorly measuring about 2.9 cm which is unchanged. The adrenals, pancreas and kidneys are unremarkable except for a small cyst in the lower pole of the left kidney which is unchanged. There is no retroperitoneal adenopathy or mass. Complex abdominal wall hernia is seen inferiorly with areas of extensive soft tissue thickening which were present previously but appear worsened compared to the prior study. IMPRESSION: Large complex abdominal wall hernia, inferiorly, with large amount of edema and soft tissue thickening. These findings were present on the prior study of 04/11/2017 but appear worsened. There is no well-defined fluid collection. There is no overt bowel obstruction. There are stable cysts in the left kidney. The spleen again shows multiple small hypodense lesions which appear stable compared to the prior study. There is no other new abnormality. Dictated by: Dictated on workstation # [id number]
[2017-12-18] MEDS ORDERED: oxyCODONE/APAP 5/325MG (PERCOCET 5) TABLET PO STA (20:02)
[2017-12-18 20:25] VITALS: BP 138/72
== END 2017-12-18 20:25 | disposition home or self-care (01) ==
LOC: ER 16:57 → EDUNIT# 16:57 → ER 20:25
DX: K43.2 Incisional hernia without obstruction or gangrene (principal); R19.7 Diarrhea, unspecified; M25.552 Pain in left hip; J44.9 Chronic obstructive pulmonary disease, unspecified; I48.91 Unspecified atrial fibrillation; I25.10 Atherosclerotic heart disease of native coronary artery without angina pectoris; I25.2 Old myocardial infarction; E78.00 Pure hypercholesterolemia, unspecified; I10 Essential (primary) hypertension; E03.9 Hypothyroidism, unspecified; E66.01 Morbid (severe) obesity due to excess calories; E11.9 Type 2 diabetes mellitus without complications; Z85.038 Personal history of other malignant neoplasm of large intestine; M19.90 Unspecified osteoarthritis, unspecified site; Z88.6 Allergy status to analgesic agent; Z88.1 Allergy status to other antibiotic agents; Z79.82 Long term (current) use of aspirin; Z79.84 Long term (current) use of oral hypoglycemic drugs; Z95.5 Presence of coronary angioplasty implant and graft; Z90.49 Acquired absence of other specified parts of digestive tract; Z90.89 Acquired absence of other organs; Z98.51 Tubal ligation status; Z68.43 Body mass index [BMI] 50.0-59.9, adult
CPT/HCPCS: 36415; 73700; 74177; 80053; 85025; 86141; 96361; 96374

== ENCOUNTER 2018-03-19 23:38 | Observation (INO) | payer MEDICAID ==
[~2018-03-19] VITALS: Ht 157.5 cm; Wt 127.5 kg
[~2018-03-19 23:38] MED LIST changes: -BIMA2.5D4 OP; +HYDR-4226 PO; -HYDR-757 PO; +LEVO200T6 PO; +METF-397 PO; -METF500T5 PO
--- OUTSIDE RECORDS SUMMARY | 2018-03-19 23:44 | XMS REPORT | Clinical Summary ---
Author Author [facility] Organization [facility] Address Unknown Phone Unavailable Care Team Providers Care Dietary Tech Name Role Phone Erick Sawyer DO Unavailable Alesha Desir MD PCP Source Comments Some departments are not documenting in the electronic medical record. If you do not see the information that you expected, contact Release of Information in the Health Information Management department at [phone] for further assistance in locating additional records.[facility] Allergies Active Allergy Reactions Severity Noted Date Comments Ibuprofen EDEMA 11/16/2012 Ceftriaxone HIVES 11/16/2012 Current Medications Prescription Sig. Disp. Refills Start [...] Types Packs/Day Years Used Date Never Smoker Sex Assigned at Date Recorded Not on file Last Filed Vital Signs Vital Sign Reading Time Taken Blood Pressure 127/79 11/16/2012 11:22 AM CDT Pulse 112 11/16/2012 11:22 AM CDT Temperature 36.7 C (98 F) 11/16/2012 11:22 AM CDT Respiratory Rate 20 11/16/2012 11:22 AM CDT Oxygen Saturation - - Inhaled Oxygen - - Concentration Weight 137.7 kg (303 lb 9.6 oz) 11/16/2012 11:22 AM CDT Height 157.5 cm (5' 2") 11/16/2012 11:22 AM CDT Body Mass Index 55.53 11/16/2012 11:22 AM CDT Plan of Treatment Health Maintenance Due Date Last Done Comments HEPATITIS C SCREENING 1954 PHYSICAL (COMPREHENSIVE) 1961 EXAM PERTUSSIS VACCINE 1965 HIV SCREENING 1969 TETANUS VACCINE 1971 CERVICAL CANCER SCREENING 1984 BREAST CANCER SCREENING 1994 COLORECTAL CANCER 2004 SCREENING SHINGLES RECOMBINANT 2004 VACCINE (1 of 2) INFLUENZA VACCINE 01/11/2018 Results Not on filefrom Last 3 Months
--- OUTSIDE RECORDS SUMMARY | 2018-03-19 23:45 | XMS REPORT ---
Author Author JAN HERNANDEZ [facility] Address [address] [place] [address] Care Team Providers Care Implementation Manager Name Role Phone JAN HERNANDEZ Unavailable PROBLEMS Type Condition ICD9-CM Code [id number] Code Onset Dates Condition Status SNOMED Code Problem Prediabetes R73.09 Active 1549338 Problem Arthritis M19.90 Active 5625868 Problem Hypokalemia E87.6 Active 14391685 Problem Coronary artery disease involving nikolai coronary artery of nikolai heart without angina pectoris I25.10 Active 4026879201061 Problem Skin cancer of face C44.300 Active 463986577 Problem Morbid (severe) obesity due to excess calories E66.01 Active 443916493 Problem Body mass index (BMI) of 45.0-49.9 in adult Z68.42 Active 803367621 Problem Venous insufficiency I87.2 Active 37017213 Problem 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 Active 211816014 Problem Anemia D64.9 Active 609035724 Problem Cor pulmonale I27.81 Active 74200090 Problem Back pain M54.9 Active 241380763 Problem Restrictive lung disease J98.4 Active 35643303 Problem Hypothyroidism E03.9 Active 61644037 ALLERGIES No Information ENCOUNTERS Encounter Location Date Diagnosis [facility] [id number] [address] Feb, Arthritis M19.90 [facility] [id number] [address] 2878 Jan, Arthritis M19.90 [facility] [id number] [address] 6[address] Jan, Back pain M54.9 and Arthritis M19.90 [facility] [id number] [address] 4[address] Jan, [facility] [address] [facility] [id number] [address] 89[address] Jan, Back pain M54.9 [facility] [id number] [place] [address] 20097- 5721 Jan, Arthritis M19.90 [facility] [id number] [place] [address] 93171- 3518 Jan, Back pain M54.9 [facility] [id number] [place] [address] 93110- 8107 Jan, [facility] [id number] [place] [address] 15334- 7849 Jan, Back pain M54.9 [facility] [id number] [place] [address] 99061- 2796 Dec, Ingrowing nail with infection L60.0 and Onychomycosis B35.1 [facility] [id number] [place] [address] 27670- 1532 Dec, Arthritis M19.90 [facility] [id number] [place] [address] 80657- 2658 Dec, Ingrowing nail L60.0 [facility] [id number] [place] [address] 64084- 1919 Dec, Back pain M54.9 [facility] [id number] [address] Dec, [facility] [address] [facility] [id number] [address]- 5305 Dec, Back pain M54.9 [facility] [id number] [place] [address] 79937- 3864 Nov, Arthritis M19.90 [facility] [id number] [address] 3755 Nov, [facility] [id number] [place] [address] 50204- 5016 Nov, Arthritis M19.90 ; Anemia D64.9 ; Restrictive lung disease J98.4 ; Weakness R53.1 and BMI 50.0-59.9, adult Z68.43 [facility] [id number] [place] [address] 81803- 9454 Nov, Arthritis M19.90 [facility] [id number] [place] [address] 42553- 1271 Nov, Back pain M54.9 [facility] [address] 02028- 0361 October, Back pain M54.9 [facility] [id number] [place] [address] 20529- 4343 October, Back pain M54.9 [facility] [id number] [place] [address] 33101- 7620 Sep, Back pain M54.9 [facility] [id number] [place] [address] 58631- 4283 Sep, Back pain M54.9 [facility] [id number] [place] [address] 04567 -9011 Sep, [facility] [id number] [place] [address] 65820 -1932 Sep, [facility] [id number] [place] [address] 36648 -3748 Sep, Swelling of right lower extremity M79.89 and Cellulitis of right lower extremity L03.115 [facility] [id number] [place] [address] 65085- 9129 Aug, Back pain M54.9 [facility] [id number] [place] [address] 22485- 4516 15 Aug, 2017 Back pain M54.9 [facility] [id number] [place] [address] 67328- 6963 Aug, [place] [facility] [id number] [place] [address] 76411- 4498 Aug, Cellulitis of right lower extremity L03.115 ; Ventral hernia without obstruction or gangrene K43.9 and BMI 50.0-59.9, adult Z68.43 [place] [id number] [place] [address] 10877- 8725 28 Jul, 2017 Back pain M54.9 [facility] [id number] [place] [address] 41523- 8288 Jul, 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 Z79.891 ; Arthritis M19.90 ; Back pain M54.9 ; Prediabetes R73.09 ; Hypothyroidism E03.9 ; Coronary artery disease involving nikolai coronary artery of nikolai heart without angina pectoris I25.10 and Anemia D64.9 [facility] [id number] [place] [address] 00282- 8110 27 Jul, 2017 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 Z79.891 ; Back pain M54.9 ; Arthritis M19.90 ; Prediabetes R73.09 ; Hypothyroidism E03.9 ; Coronary artery disease involving nikolai coronary artery of nikolai heart without angina pectoris I25.10 ; Anemia D64.9 and BMI 45.0-49.9, adult Z68.42 [facility] [id number] [place] [address] 48341- 2341 15 Jul, 2017 Back pain M54.9 [place] [facility] [id number] [place] [address] 95771- 9704 05 Jul, 2017 Back pain M54.9 [facility] [id number] [place] [address] 39809- 9432 Jun, Back pain M54.9 [place] [id number] [place] [address] 79799- 8735 Jun, Back pain M54.9 [facility] [id number] [place] [address] 32697 -6084 May, Skin cancer of face C44.300 and BMI 45.0-49.9, adult Z68.42 [facility] [id number] [place] [address] 06028- 6625 May, [facility] [address] 05920- 8042 May, Back pain M54.9 [facility] [id number] [place] [address] 51577- 7943 May, Back pain M54.9 [facility] [address] 56715- 5131 May, Back pain M54.9 [facility] [id number] [place] [address] 01638- 4251 Apr, Back pain M54.9 [facility] [id number] [place] [address] 89275- 8524 Apr, Back pain M54.9 [facility] [address] 23671- 8624 Mar, Back pain M54.9 [facility] [id number] [place] [address] 64752- 4748 Mar, Anemia D64.9 ; Encounter for immunization Z23 ; Arthritis M19.90 and Right inguinal hernia K40.90 [facility] [id number] [place] [address] 02948- 3715 Mar, Back pain M54.9 [facility] [id number] [place] [address] 19229- 5724 22 Feb, 2017 Back pain M54.9 [facility] [id number] [place] [address] 53382- 5346 13 Feb, 2017 Back pain M54.9 [facility] [address] [place] [address]- 7288 Jan, Back pain M54.9 [facility] [address] [facility] [id number] [place] [address] 08516 2546 Jan, Back pain M54.9 [facility] [id number] [place] [address] 59332 2546 Jan, [facility] [id number] [place] [address] 07381 2546 Jan, Back pain M54.9 [facility] [id number] [place] [address] 44605 2546 Dec, Back pain M54.9 [facility] [id number] [place] [address] 60491- 6151 Dec, Back pain M54.9 [facility] [id number] [place] [address] 28030- 3436 Dec, [facility] [id number] [place] [address] 24933 2548 Nov, Hypokalemia E87.6 [facility] [id number] [place] [address] 80206 2546 Nov, Back pain M54.9 [facility] [id number] [place] [address] 29507 2546 Nov, [facility] [id number] [place] [address] 08809 2546 Nov, Arthritis M19.90 [facility] [id number] [place] [address] 86401 2546 Nov, Back pain M54.9 [facility] [id number] [place] [address] 11846 2546 Nov, Generalized edema R60.1 [facility] [id number] [place] [address] 43381 2546 Nov, Back pain M54.9 [place] [id number] [place] [address] 72443- 0097 07 Nov, 2016 Pain in right knee M25.561 [facility] [id number] [place] [address] 63278- 9086 05 Nov, 2016 Encounter for removal of sutures Z48.02 and Pain in right knee M25.561 [facility] [place] [address] 04157 -8594 Nov, Abrasion of right foot, subsequent encounter S90.811D [facility] [place] [id number] [place] [address] 00934 -2357 October, Toe abrasion, right, initial encounter S90.414A [facility] [id number] [place] [address] 24958- 3425 October, [place] [address] 21956- 7002 October, Back pain M54.9 [facility] [id number] [place] [address] 86739- 3322 October, Venous insufficiency I87.2 [facility] [id number] [place] [address] 72273- 5553 October, Pain in right knee M25.561 [place] [id number] [place] [address] 23835- 5973 Sep, Back pain M54.9 [place] [id number] [place] [address] 90188- 9596 Sep, Venous insufficiency I87.2 [facility] [address] [id number] Sep, [facility] [id number] [place] [address] 60012 -3296 Sep, Leg edema, right R60.0 and Cellulitis of right lower extremity L03.115 [place] [address] [place] [address]- 4792 14 Sep, 2016 Pedal edema R60.0 [facility] [address] 06946- 0434 04 Sep, 2016 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 ; Pain in right knee M25.561 and Arthritis M19.90 [place] [address] 42012- 1375 Aug, Back pain M54.9 [facility] [address] 20651- 6169 Aug, Back pain M54.9 [place] [address] 98956- 7180 Aug, [place] [address] 48253- 7555 Aug, Type 2 diabetes mellitus without complication E11.9 ; Restrictive lung disease J98.4 ; Arthritis M19.90 ; Back pain M54.9 ; Body mass index (BMI) of 45.0-49.9 in adult Z68.42 and Morbid (severe) obesity due to excess calories E66.01 [place] [id number] [place] [address] 83071- 5971 Aug, Back pain M54.9 [facility] [id number] [place] [address] 73479- 1901 Aug, Back pain M54.9 [facility] [id number] [place] [address] 19550- 4942 Jul, [facility] [id number] [place] [address] 90136- 5736 Jul, Back pain M54.9 [facility] [id number] [place] [address] 08354- 7540 Jul, Back pain M54.9 [facility] [address] 50270- 7736 Jun, Back pain M54.9 [facility] [address] [facility] [id number] [place] [address] 08113 2546 Jun, Back pain M54.9 [facility] [address] [facility] [id number] [place] [address] 06471 2546 May, Back pain M54.9 [facility] [address] [facility] [id number] [place] [address] 24600 2546 16 May, 2016 Back pain M54.9 [facility] [address] [facility] [id number] [place] [address] 34451 2546 May, Back pain M54.9 [facility] [address] [facility] [id number] [place] [address] 57207 2546 May, Back pain M54.9 [facility] [address] [facility] [id number] [place] [address] 57656 2546 May, [facility] [address] [facility] [id number] [place] [address] 81604 2544 May, Back pain M54.9 and Pain in right knee M25.561 [facility] [address] [facility] [id number] [place] [address] 16212 2545 Apr, [facility] [id number] [place] [address] 00510- 7249 Apr, Type 2 diabetes mellitus without complication E11.9 ; Pain in right knee M25.561 and Pain in left knee M25.562 [facility] [address] [facility] [id number] [address] 2546 Mar, [facility] [address] [facility] [id number] [place] [address] 23697 2546 Mar, [facility] [address] [facility] [id number] [address]- 2546 Mar, [facility] [address] [facility] [id number] [place] [address] 63770- 3409 Mar, Restrictive lung disease J98.4 ; Anemia D64.9 and Cor pulmonale I27.81 [facility] [id number] [place] [address], [place] [address]- 3715 17 Mar, 2016 [facility] [address] [facility] [id number] [place] [address] 84156- 0038 14 Mar, 2016 [facility] [address] [facility] [id number] [place] [address] 31898- 4979 Mar, [facility] [address] [facility] [id number] [place] [address] 10604- 2765 30 Feb, 2016 [facility] [id number] [place] [address], [place] [address]- 6145 29 Feb, 2016 [facility] [id number] [place] [address] 66469- 3096 28 Feb, 2016 [facility] [id number] [place] [address] 41851- 7642 27 Feb, 2016 Restrictive lung disease J98.4 [facility] [address] [facility] [id number] [place] [address], [place] [address]- 7979 23 Feb, 2016 [facility] [address] [facility] [id number] [address] -3604 22 Feb, 2016 [facility] [address] [address]- 9611 16 Feb, 2016 [facility] [id number] [address]- 3344 Jan, [facility] [address] [facility] [id number] [address]- 8242 Jan, [facility] [address] [facility] [id number] [place] [address] 10844- 9635 Jan, [facility] [id number] [address]- 4587 Jan, [facility] [id number] [place] [address] 83017- 3647 Jan, Restrictive lung disease J98.4 ; Anemia D64.9 and Cor pulmonale I27.81 [facility] [id number] [place] [address] 68644- 8371 Dec, [facility] [address] 63648- 4221 Dec, [facility] [address] 53897- 8470 Nov, Arthritis M19.90 and Hypokalemia E87.6 [facility] [address] 76691- 1788 Nov, Back pain M54.9 [facility] [id number] [place] [address] 89066- 3515 October, Back pain M54.9 [facility] [address] 07544- 3194 October, Back pain M54.9 [facility] [id number] [place] [address] 52077- 1380 Sep, Scabies exposure Z20.89 [facility] [id number] [place] [address] 87215- 1570 Sep, Restrictive lung disease J98.4 [facility] [id number] [place] [address] 92097- 3553 Sep, Back pain M54.9 [facility] [id number] [place] [address] 13602- 6595 Sep, Restrictive lung disease J98.4 [facility] [id number] [place] [address] 78665- 7702 Aug, [facility] [id number] [place] [address] 59793- 0403 Aug, [facility] [address] 98345- 6086 Aug, [facility] [id number] [place] [address] 83611- 0136 Aug, [facility] [id number] [place] [address] 92251- 4489 Aug, Back pain M54.9 [facility] [id number] [place] [address] 58366- 0798 Jul, Anemia D64.9 and Prediabetes R73.09 [facility] [id number] [place] [address] 03842- 4408 Jul, Back pain M54.9 [facility] [id number] [place] [address] 55898- 8383 Jul, Back pain M54.9 [facility] [id number] [place] [address] 00999- 3974 Jul, [facility] [id number] [place] [address] 47915- 8375 05 Jul, 2015 Bronchitis J40 and Anemia D64.9 [facility] [id number] [place] [address] 68653- 7513 Jun, [facility] [id number] [place] [address] 50826- 1227 Jun, [facility] [id number] [place] [address] 53546- 3342 Jun, Bronchitis J40 and Anemia D64.9 [facility] [id number] [place] [address] 91794- 0585 Jun, [facility] [id number] [place] [address] [id number]- 9424 Jun, Back pain M54.9 [facility] [id number] [place] [address] 54744- 7734 Jun, Anemia D64.9 [facility] [id number] [place] [address] 95551- 8545 Jun, Restrictive lung disease J98.4 ; Anemia D64.9 ; Hypothyroidism E03.9 ; Cor pulmonale I27.81 and Back pain M54.9 [facility] [id number] [place] [address] 52506- 5085 May, [facility] [address] 24793- 3309 Apr, Anemia D64.9 ; Encounter for immunization Z23 and Restrictive lung disease J98.4 [facility] [address] 88709- 1767 Apr, [facility] [id number] [place] [address] 09075- 4001 Mar, [facility] [address] 32571- 7602 Mar, Iron deficiency anemia D50.9 [facility] [id number] [place] [address] 69473- 2462 Mar, [facility] [id number] [place] [address] 55722- 3983 Mar, [facility] [id number] [place] [address] [phone]- 1461 Mar, Anemia D64.9 [facility] [id number] [place] [address] 45925- 5408 Mar, [facility] [id number] [place] [address] 62355- 9824 Mar, Anemia D64.9 [facility] [id number] [place] [address] 49686- 0137 Mar, Restrictive lung disease J98.4 and Anemia D64.9 [facility] [id number] [place] [address] 71705- 0119 Mar, [facility] [id number] [place] [address] 36507- 9119 Mar, Anemia D64.9 [facility] [id number] [place] [address] 42490- 6094 Mar, Anemia D64.9 [facility] [id number] [place] [address] 39502- 3993 Mar, [facility] [id number] [place] [address] 58706- 6501 Mar, Diabetes mellitus E11.9 ; Bronchitis J40 and Anemia D64.9 [facility] [id number] [place] [address] 19406- 4794 Feb, [facility] [id number] [place] [address] 87629- 6937 Feb, [facility] [address] 15277- 6503 Feb, [facility] [id number] [place] [address] 15157- 4387 Feb, [facility] [id number] [place] [address] [phone]- 8998 Jan, [facility] [id number] [place] [address] [phone]- 3288 Jan, [facility] [id number] [place] [address] 59780- 7098 Dec, Venous insufficiency 459.81 [facility] [id number] [place] [address] 52633- 9210 Dec, [facility] [id number] [place] [address] [phone]- 0363 Dec, [facility] [id number] [place] [address] 45173- 2184 Dec, Coronary atherosclerosis of unspecified type of vessel, nikolai or graft 414.00 ; Unspecified anemia 285.9 and Generalized osteoarthrosis , unspecified site 715.00 [facility] [id number] [address] Nov, [facility] [id number] [address] [address] Nov, [facility] [id number] [address] 7580 Nov, [facility] [id number] [place] [address]- 6419 October, [facility] [id number] [address]100 October, Acute bronchitis 466.0 and Shortness of breath 786.05 [facility] [id number] [address] 59[address] Sep, [facility] [id number] [place] [address]- 6032 Sep, [facility] [id number] [address] 56[address] Aug, [facility] [id number] [address] Aug, [facility] [id number] [address] 1846 Jul, [facility] [id number] [address] Jul, [facility] [id number] [address] 6[address] Jul, [facility] [id number] [address] 07[address] Jul, [facility] [id number], [place] [address] Jun, [facility] [id number] [address] 6162 Jun, [facility] [place] [facility] [address] [id number] [place] [address]- 5871 Jun, [facility] [place] [facility] [address] [id number] [place] [address]- 2444 Jun, [facility] [place] [facility] [address] [id number] [place] [address]- 1681 Jun, [facility] [place] [facility] [address] [id number] [place] [address]- 3281 Jun, [facility] [place] [facility] [address] [id number] [place] [address]- 0521 May, [facility] [place] [facility] [address] [id number] [place] [address]- 5007 May, [facility] [place] [facility] [address] [id number] [place] [address]- 2813 May, [facility] [place] [facility] [address] [id number] [place] [address]- 2037 May, [facility] [place] [facility] [address] [id number] [place] [address]- 1477 Apr, [facility] [place] [facility] [address] [id number] [place] [address]- 2234 Apr, [facility] [place] [facility] [address] [id number] [address]- 5068 Apr, [facility] [place] [facility] [address] [id number] [address] 495[address] Apr, [facility] [place] [facility] [address] [id number] [place] [address]- 5270 Apr, [facility] [place] [facility] [address] [id number] [place] [address]- 4373 Apr, [facility] [place] [facility] [address] [id number] [place] [address]- 0613 Mar, [facility] [place] [facility] [address] [id number] [place] [address]- 0497 Mar, [facility] [place] [facility] [address] [id number] [place] [address]- 4487 Mar, [facility] [place] [facility] [address] [id number] [place] [address]- 7743 Mar, [facility] [place] [facility] [address] [id number] [place] [address] Mar, [facility] [place] [facility] [address] [id number] [place] [address]- 1851 Mar, [facility] [place] [facility] [address] [id number] [place] [address]- 7619 Mar, [facility] [place] [facility] [address] [id number] [place] [address]- 3428 Mar, [facility] [place] [facility] [address] [id number] [place] [address]- 1365 Feb, [facility] [place] [facility] [address] [id number] [place] [address]- 4241 Feb, [facility] [place] [facility] [address] [id number] [place] [address]- 2230 Jan, [facility] [place] [facility] [address] [id number] [place] [address]- 9167 Jan, [facility] [place] [facility] [address] [id number] [place] [address]- 0520 Jan, [facility] [place] [facility] [address] [id number] [place] [address]- 0804 Jan, [facility] [place] [facility] [address] [id number] [place] [address]- 8172 Jan, [facility] [place] [facility] [address] [id number] [place] [address]- 2870 Jan, [facility] [place] [facility] [address] [id number] [place] [address]- 0512 Dec, [facility] [place] [facility] [address] [id number] [place] [address]- 5904 Dec, [facility] [place] [facility] [address] [id number] [place] [address]- 6803 Dec, [facility] [place] [facility] [address] [id number] [place] [address]- 7280 Dec, [facility] [place] [facility] [address] [id number] [place] [address]- 5680 Nov, [facility] [place] [facility] [address] [id number] [place] [address]- 5654 Nov, [facility] [place] [facility] [address] [id number] [place] [address]- 4111 Nov, [facility] [place] [facility] [address] [id number] [place] [address]- 8875 Nov, [facility] [place] [facility] [address] [id number] [place] [address]- 9443 Nov, [facility] [place] [facility] [address] [id number] [place] [address]- 1816 Nov, [facility] [place] [facility] [address] [id number] [place] [address]- 1950 Nov, [facility] [place] [facility] [address] [id number] [place] [address]- 5602 Nov, [facility] [place] [facility] [address] [id number] [place] [address]- 3167 Nov, [facility] [place] [facility] [address] [id number] [place] [address]- 8440 Nov, [facility] [place] [facility] [address] [id number] [place] [address]- 6989 Nov, [facility] [place] [facility] [address] [id number] [place] [address]- 0570 Nov, [facility] [place] [facility] [address] [id number] [place] [address]- 2823 October, [facility] [place] [facility] [address] [id number] [place] [address]- 3905 October, [facility] [place] [facility] [address] [id number] [place] [address]- 6525 October, [facility] [place] [facility] [address] [id number] [place] [address]- 2497 October, [facility] [place] [facility] [address] [id number] [place] [address]- 4675 October, [facility] [place] [facility] [address] [id number] [place] [address]- 4045 October, [facility] [place] [facility] [address] [id number] [place] [address]- 5514 October, [facility] [place] [facility] [address] [id number] [place] [address]- 0868 October, [facility] [place] [facility] [address] [id number] [place] [address]- 3897 October, [facility] [place] [facility] [address] [id number] [place] [address]- 4060 Sep, [facility] [place] [facility] [address] [id number] [place] [address]- 3211 Sep, [facility] [place] [facility] [address] [id number] [place] [address]- 8754 Sep, [facility] [place] [facility] [address] [id number] [place] [address]- 4038 Sep, [facility] [place] [facility] [address] [id number] [place] [address]- 2751 Sep, [facility] [place] [facility] [address] [id number] [place] [address]- 8672 Sep, [facility] [place] [facility] [address] [id number] [place] [address]- 8233 Aug, [facility] [place] [facility] [address] [id number] [place] [address]- 5513 Aug, [facility] [place] [facility] [address] [id number] [place] [address]- 9286 Aug, [facility] [place] [facility] [address] [id number] [place] [address]- 3967 Aug, [facility] [place] [facility] [address] [id number] [place] [address]- 3776 Aug, [facility] [place] [facility] [address] [id number] [place] [address]- 3011 Aug, [facility] [place] [facility] [address] [id number] [place] [address]- 5442 Aug, [facility] [place] [facility] [address] [id number] [place] [address]- 2789 Aug, [facility] [place] [facility] [address] [id number] [place] [address]- 7111 Aug, [facility] [place] [facility] [address] [id number] [place] [address]- 2581 Aug, [facility] [place] [facility] [address] [id number] [place] [address]- 0931 Jul, [facility] [place] [facility] [address] [id number] [place] [address]- 3801 Jul, [facility] [place] [facility] [address] [id number] [place] [address]- 6012 Jun, [facility] [place] [facility] [address] [id number] [place] [address]- 1877 Jun, [facility] [place] [facility] [address] [id number] [place] [address]- 8168 Jun, [facility] [place] [facility] [address] [id number] [place] [address]- 1549 Jun, [facility] [place] [facility] [address] [id number] [place] [address]- 6722 Jun, [facility] [address] [id number] [place] [address]- 2487 Jun, [facility] [place] [facility] [address] [id number] [place] [address]- 0455 Jun, [facility] [place] [facility] [address] [id number] [place] [address]- 0471 Jun, [facility] [place] [facility] [address] [id number] [place] [address]- 7473 May, [facility] [place] [facility] [address] [id number] [place] [address]- 5999 May, [facility] [place] [facility] [address] [id number] [place] [address]- 5520 May, [facility] [place] [facility] [address] [id number] [place] [address]- 1529 May, [facility] [place] [facility] [address] [id number] [place] [address]- 7589 May, [facility] [place] [facility] [address] [id number] [place] [address]- 7393 May, [facility] [place] [facility] [address] [id number] [place] [address]- 1445 May, [facility] [place] [facility] [address] [id number] [place] [address]- 2891 May, [facility] [place] [facility] [address] [id number] [place] [address]- 0285 May, [facility] [place] [facility] [address] [id number] [place] [address]- 1643 Apr, [facility] [place] [facility] [address] [id number] [place] [address]- 5979 Apr, [facility] [place] [facility] [address] [id number] [place] [address]- 3732 Apr, [facility] [place] [facility] [address] [id number] [place] [address]- 2426 Apr, 2012 [facility] [place] [facility] [address] [id number] [place] [address]- 5346 30 Mar, 2012 [facility] [place] [facility] [address] [id number] [place] [address]- 4097 30 Mar, 2012 [facility] [place] [facility] [address] [id number] [place] [address]- 2530 30 Mar, 2012 [facility] [place] [facility] [address] [id number] [place] [address]- 3172 30 Mar, 2012 [facility] [place] [facility] [address] [id number] [place] [address]- 1121 30 Mar, 2012 [facility] [place] [facility] [address] [id number] [place] [address]- 8771 30 Mar, 2012 [facility] [place] [facility] [address] [id number] [place] [address]- 1083 Mar, 2012 [facility] [place] [facility] [address] [id number] [place] [address]- 7116 Mar, 2012 [facility] [place] [facility] [address] [id number] [place] [address]- 9169 Mar, 2012 [facility] [place] [facility] [address] [id number] [address]- 5502 Mar, 2012 [facility] [place] [facility] [address] [id number] [place] [address]- 2873 18 Mar, 2012 [facility] [place] [facility] [address] [id number], [place] [address]- 9492 Mar, 2012 [facility] [place] [facility] [address] [id number] [place] [address]- 6978 Mar, 2012 [facility] [place] [facility] [address] [id number], [place] [address]- 3610 Mar, 2012 [facility] [place] [facility] [address] [id number], [place] [address]- 4145 Mar, 2012 [facility] [place] [facility] [address] [id number] [place] [address]- 3454 18 Mar, 2012 [facility] [place] [facility] [address] [id number] [place] [address]- 4138 17 Mar, 2012 [facility] [place] [facility] [address] [id number] [place] [address]- 6079 17 Mar, 2012 [facility] [place] [facility] [address] [id number] [place] [address]- 9439 15 Mar, 2012 [facility] [place] [facility] [address] [id number] [place] [address]- 5715 15 Mar, 2012 [facility] [place] [facility] [address] [id number] [place] [address]- 2279 14 Mar, 2012 [facility] [place] [facility] [address] [id number] [place] [address]- 6975 14 Mar, 2012 [facility] [place] [facility] [address] [id number] [place] [address]- 3756 14 Mar, 2012 [facility] [place] [facility] [address] [id number] [place] [address]- 7949 14 Mar, 2012 [facility] [place] [facility] [address] [id number] [place] [address]- 1763 12 Mar, 2012 [facility] [place] [facility] [address] [id number] [place] [address]- 3109 11 Mar, 2012 [facility] [place] [facility] [address] [id number] [place] [address]- 1056 11 Mar, 2012 [facility] [place] [facility] [address] [id number] [place] [address]- 4972 10 Mar, 2012 [facility] [place] [facility] [address] [id number] [place] [address]- 9778 10 Mar, 2012 [facility] [place] [facility] [address] [id number] [place] [address]- 2673 10 Mar, 2012 [facility] [place] [facility] [address] [id number] [place] [address]- 1657 Mar, [facility] [place] [facility] [address] [id number] [place] [address]- 4519 Mar, [facility] [place] [facility] [address] [id number] [place] [address]- 6999 Mar, [facility] [place] [facility] [address] [id number] [place] [address]- 9910 Feb, [facility] [place] [facility] [address] [id number] [place] [address]- 1051 Feb, [facility] [place] [facility] [address] [id number] [place] [address]- 7998 Feb, [facility] [place] [facility] [address] [id number] [place] [address]- 7913 Feb, [facility] [place] [facility] [address] [id number] [place] [address]- 7704 Jan, [facility] [place] [facility] [address] [id number] [place] [address]- 3379 Jan, [facility] [place] [facility] [address] [id number] [place] [address]- 4380 Jan, [facility] [place] [facility] [address] [id number] [place] [address]- 5836 Jan, [facility] [place] [facility] [address] [id number] [place] [address]- 4762 Jan, [facility] [place] [facility] [address] [id number] [place] [address]- 0539 Jan, [facility] [place] [facility] [address] [id number] [place] [address]- 1783 Dec, [facility] [place] [facility] [address] [id number] [place] [address]- 5259 Dec, [facility] [place] [facility] [address] [id number] [place] [address]- 3234 Dec, [facility] [place] [facility] [address] [id number] [place] [address]- 8730 Dec, [facility] [address] [id number] [place] [address]- 4385 Dec, [facility] [address] [id number] [place] [address]- 7669 Dec, [facility] [address] [id number] [place] [address]- 1551 Dec, [facility] [address] [id number] [place] [address]- 0556 Dec, [facility] [address] [id number] [place] [address]- 8027 Dec, [facility] [address] [id number] [place] [address]- 5740 Dec, [facility] [address] [id number] [place] [address]- 2363 Dec, [facility] [address] [id number] [place] [address]- 1885 October, [facility] [address] [id number] [place] [address]- 0168 October, [facility] [address] [id number] [place] [address]- 7932 October, [facility] [address] [id number] [place] [address]- 5861 October, [facility] [address] [id number] [place] [address]- 5766 Sep, [facility] [address] [id number] [place] [address]- 0147 Sep, [facility] [address] [id number] [place] [address]- 6512 Sep, [facility] [address] [id number] [place] [address]- 6590 Sep, [facility] [address] [id number] [address]- 4662 Sep, [facility] [address] [id number] [address]- 9786 Sep, [facility] [address] [id number] [address]- 0707 Sep, [facility] [id number] [address]- 7906 Sep, [facility] [address] [id number] [address]- 8195 Sep, [facility] [id number] [address]- 3425 Sep, [facility] [id number] [address]- 8375 Sep, IMMUNIZATIONS No Known Immunizations SOCIAL HISTORY Never Assessed REASON FOR VISIT Controlled Med Refill 02/21 PLAN OF CARE VITAL SIGNS MEDICATIONS Medication Instructions Dosage Frequency Start Date End Date Duration Status Percocet 7.5-325 MG Orally 4 times a day 1 tablet 6h Feb, Mar, 28 days Active RESULTS No Results PROCEDURES No Known procedures INSTRUCTIONS MEDICATIONS ADMINISTERED No Known Medications MEDICAL (GENERAL) HISTORY Type Description Date Medical History coronary artery disease s/p stenting Medical History arrhythmia Medical History hyperlipidemia Medical History morbid obesity Medical History Hypothyroidism Medical History type II diabetes Medical History Arthritis Medical History hernia repair with wound dehisence/enterocutaneous fistula Medical History colonic polyps Surgical History hernia repair (2003 & 2013) Surgical History tonsillectomy Surgical History tubal ligation 1982 Surgical History cholecystectomy Surgical History transesophageal echocardiogram: EF 55% (poor study) 02/2013 Surgical History heart cath w/ stenting 06/06/11 Surgical History heart cath 07/22/15 Surgical History cataract implants x 2 Surgical History Cancer removal on face 08/05/2017 Hospitalization History pneumonia, MRSA, bacteremia, SVT vs Afib 02/2013 Hospitalization History pseudomonal bacteremia in PICC 04/2013 Hospitalization History heart cath 07/22/15 Hospitalization History o2 problems 09/2015 Hospitalization History Acute dyspnea, muscle cramps--[facility] 03/04/16 Hospitalization History RLE Cellulitis, Hypokalemia, anemia-[facility] 09/29/15 Hospitalization History Lower edema 09/2016 Hospitalization History Received stitches ER 10/2016
--- OUTSIDE RECORDS SUMMARY | 2018-03-19 23:46 | XMS REPORT ---
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 Name Role Phone JAN HERNANDEZ Unavailable PROBLEMS Type Condition ICD9-CM Code CDI21-NS Code Onset Dates Condition Status SNOMED Code Problem Prediabetes R73.09 Active 6217309 Problem Arthritis M19.90 Active 7179361 Problem Hypokalemia E87.6 Active 31251842 Problem Coronary artery disease involving akhiok coronary artery of akhiok heart without angina pectoris I25.10 Active 3163437785644 Problem Skin cancer of face C44.300 Active 435473023 Problem Morbid (severe) obesity due to excess calories E66.01 Active 551577937 Problem Body mass index (BMI) of 45.0-49.9 in adult Z68.42 Active 790323104 Problem Venous insufficiency I87.2 Active 70556687 Problem 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 Active 245606433 Problem Anemia D64.9 Active 859583592 Problem Cor pulmonale I27.81 Active 52376987 Problem Back pain M54.9 Active 531434216 Problem Restrictive lung disease J98.4 Active 13061683 Problem Hypothyroidism E03.9 Active 51517124 ALLERGIES No Information ENCOUNTERS Encounter Location Date Diagnosis [facility] [id number], [place] [address] Feb, Arthritis M19.90 [facility] [id number], [place] [address] Jan, Arthritis M19.90 [facility] [address], [place] [address] Jan, Back pain M54.9 and Arthritis M19.90 [facility] [id number], [place] [address] Jan, [facility] [address] [facility] [id number], [place] [address] Jan, Back pain M54.9 [facility] [id number] [place] [address] 99266- 8151 Jan, Arthritis M19.90 [facility] [id number] [place] [address] 91134- 3293 Jan, Back pain M54.9 [facility] [id number] [address] 50820- 6950 Jan, [facility] [id number] [place] [address] 17855- 7289 Jan, Back pain M54.9 [facility] [id number] [place] [address] 58941- 6133 Dec, Ingrowing nail with infection L60.0 and Onychomycosis B35.1 [facility] [id number] [place] [address] 34697- 9682 Dec, Arthritis M19.90 [facility] [id number] [place] [address] 05543- 9941 Dec, Ingrowing nail L60.0 [facility] [id number] [place] [address] 13421- 6486 Dec, Back pain M54.9 [facility] [id number], [place] [address] Dec, [facility] [address] [facility] [id number], [place] [address] 9409 Dec, Back pain M54.9 [facility] [id number] [place] [address] 20637- 6984 Nov, Arthritis M19.90 [facility] [id number], [place] [address] 5408 Nov, [facility] [id number] [place] [address] 26915- 2905 Nov, Arthritis M19.90 ; Anemia D64.9 ; Restrictive lung disease J98.4 ; Weakness R53.1 and BMI 50.0-59.9, adult Z68.43 [facility] [id number] [place] [address] 22815- 6570 Nov, Arthritis M19.90 [facility] [id number] [place] [address] 92466- 7634 Nov, Back pain M54.9 [facility] [address] 47713- 3824 October, Back pain M54.9 [facility] [id number] [place] [address] 37928- 9674 October, Back pain M54.9 [facility] [id number] [place] [address] 29528- 8840 Sep, Back pain M54.9 [facility] [id number] [place] [address] 68427- 8308 Sep, Back pain M54.9 [facility] [id number] [place] [address] 90779 -5648 Sep, [facility] [id number] [place] [address] 89555 -6685 Sep, [facility] [id number] [place] [address] 86845 -9486 Sep, Swelling of right lower extremity M79.89 and Cellulitis of right lower extremity L03.115 [facility] [id number] [place] [address] 74586- 0487 Aug, Back pain M54.9 [facility] [id number] [place] [address] 26045- 4240 15 Aug, 2017 Back pain M54.9 [facility] [id number] [place] [address] 63013- 9187 Aug, [place] [id number] [place] [address] 94173- 3401 Aug, Cellulitis of right lower extremity L03.115 ; Ventral hernia without obstruction or gangrene K43.9 and BMI 50.0-59.9, adult Z68.43 [place] [id number] [place] [address] 27798- 0019 28 Jul, 2017 Back pain M54.9 [place] [id number] [place] [address] 51809- 8239 Jul, shelter (current) 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 Z79.891 ; Arthritis M19.90 ; Back pain M54.9 ; Prediabetes R73.09 ; Hypothyroidism E03.9 ; Coronary artery disease involving akhi[place] coronary artery of akhi[place] heart without angina pectoris I25.10 and Anemia D64.9 [place] [id number] [place] [address] 84172- 3670 27 Jul, 2017 shelter (current) 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 Z79.891 ; Back pain M54.9 ; Arthritis M19.90 ; Prediabetes R73.09 ; Hypothyroidism E03.9 ; Coronary artery disease involving akhi[place] coronary artery of akhiok heart without angina pectoris I25.10 ; Anemia D64.9 and BMI 45.0-49.9, adult Z68.42 [place] [id number] [place] [address] 65246- 3905 15 Jul, 2017 Back pain M54.9 [place] [id number] [place] [address] 85816- 8127 05 Jul, 2017 Back pain M54.9 [place] [id number] [place] [address] 38237- 9959 Jun, Back pain M54.9 [place] [id number] [place] [address] 30154- 7244 Jun, Back pain M54.9 [facility] [id number] [place] [address] 94865 -5210 May, Skin cancer of face C44.300 and BMI 45.0-49.9, adult Z68.42 [facility] [id number] [place] [address] 09796- 1129 May, [facility] [address] 83806- 8835 May, Back pain M54.9 [facility] [id number] [place] [address] 82937- 6988 May, Back pain M54.9 [facility] [address] 54052- 5762 May, Back pain M54.9 [facility] [id number] [place] [address] 88244- 0004 Apr, Back pain M54.9 [facility] [id number] [place] [address] 80748- 6622 Apr, Back pain M54.9 [facility] [address] 37059- 2464 Mar, Back pain M54.9 [facility] [id number] [place] [address] 16887- 7320 Mar, Anemia D64.9 ; Encounter for immunization Z23 ; Arthritis M19.90 and Right inguinal hernia K40.90 [facility] [id number] [place] [address] 99071- 9626 Mar, Back pain M54.9 [facility] [id number] [place] [address] 00043- 2807 22 Feb, 2017 Back pain M54.9 [facility] [id number] [place] [address] 50691- 2645 13 Feb, 2017 Back pain M54.9 [facility] [address] [place] [address]- 0000 Jan, Back pain M54.9 [facility] [address] [facility] [id number] [place] [address] 30074 2546 Jan, Back pain M54.9 [facility] [id number] [address] 58877 2546 Jan, [facility] [id number] [place] [address] 24029 2546 Jan, Back pain M54.9 [facility] [id number] [place] [address] 96292 2546 Dec, Back pain M54.9 [facility] [id number] [address] 52774- 0828 Dec, Back pain M54.9 [facility] [id number] [address] 60646- 6316 Dec, [facility] [id number] [place] [address] 65990 254 Nov, Hypokalemia E87.6 [facility] [id number] [place] [address] 54366 2546 Nov, Back pain M54.9 [facility] [id number] [address] 63532 2546 Nov, [facility] [id number] [place] [address] 23236 2546 Nov, Arthritis M19.90 [facility] [id number] [place] [address] 02289 2546 Nov, Back pain M54.9 [facility] [id number] [address] 84316 2546 Nov, Generalized edema R60.1 [facility] [id number] [place] [address] 74350 2546 Nov, Back pain M54.9 [place] [id number] [address] 17942- 4912 07 Nov, 2016 Pain in right knee M25.561 [place] [id number] [place] [address] 92686- 9560 05 Nov, 2016 Encounter for removal of sutures Z48.02 and Pain in right knee M25.561 [facility] [place] [address] 12236 -9154 Nov, Abrasion of right foot, subsequent encounter S90.811D [facility] [place] [address] [id number] [address] 55758 -1087 October, Toe abrasion, right, initial encounter S90.414A [place] [id number] [place] [address] 72035- 0668 October, [place] [address] 67114- 5661 October, Back pain M54.9 [place] [id number] [place] [address] 88821- 3747 October, Venous insufficiency I87.2 [place] [id number] [place] [address] 11911- 2256 October, Pain in right knee M25.561 [place] [id number] [place] [address] 23681- 3787 Sep, Back pain M54.9 [place] [id number] [place] [address] 59699- 8247 Sep, Venous insufficiency I87.2 [facility] [address] [id number] Sep, [facility] [id number] [place] [address] 01317 -0239 Sep, Leg edema, right R60.0 and Cellulitis of right lower extremity L03.115 [place] [address] [place] [address]- 1923 14 Sep, 2016 Pedal edema R60.0 [facility] [address] 86430- 5586 04 Sep, 2016 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 ; Pain in right knee M25.561 and Arthritis M19.90 [place] [address] 46776- 5640 Aug, Back pain M54.9 [facility] [address] 47237- 0220 Aug, Back pain M54.9 [place] [address] 54484- 5619 Aug, [place] [address] 69417- 6074 Aug, Type 2 diabetes mellitus without complication E11.9 ; Restrictive lung disease J98.4 ; Arthritis M19.90 ; Back pain M54.9 ; Body mass index (BMI) of 45.0-49.9 in adult Z68.42 and Morbid (severe) obesity due to excess calories E66.01 [place] [id number] [place] [address] 71780- 9375 Aug, Back pain M54.9 [facility] [id number] [address] 41682- 1959 Aug, Back pain M54.9 [facility] [id number] [place] [address] 34199- 4236 Jul, [place] [id number] [address] 61303- 5386 Jul, Back pain M54.9 [facility] [id number] [address] 49794- 2038 Jul, Back pain M54.9 [facility] [address] 71044- 4873 Jun, Back pain M54.9 [facility] [address] [facility] [id number] [address] 94893 2546 Jun, Back pain M54.9 [facility] [address] [facility] [id number] [place] [address] 13388 2546 May, Back pain M54.9 [facility] [address] [facility] [id number] [place] [address] 89270 2546 16 May, 2016 Back pain M54.9 [facility] [address] [facility] [id number] [place] [address] 95636 2546 May, Back pain M54.9 [facility] [address] [facility] [id number] [place] [address] 69005 2546 May, Back pain M54.9 [facility] [address] [facility] [id number] [address] 07843 2546 May, [facility] [address] [facility] [id number] [place] [address] 55223 2543 May, Back pain M54.9 and Pain in right knee M25.561 [facility] [address] [facility] [id number] [address] 73823 2540 Apr, [facility] [id number] [address] 60195- 7473 Apr, Type 2 diabetes mellitus without complication E11.9 ; Pain in right knee M25.561 and Pain in left knee M25.562 [facility] [address] [facility] [id number], [place] [address] 2546 Mar, [facility] [address] [facility] [id number] [address] 76304 2546 Mar, [facility] [address] [facility] [id number], [place] [address]- 2546 Mar, [facility] [address] [facility] [id number] [place] [address] 82408- 8272 Mar, Restrictive lung disease J98.4 ; Anemia D64.9 and Cor pulmonale I27.81 [facility] [id number] [place] [address], [place] [address]- 9082 17 Mar, 2016 [facility] [address] [facility] [id number] [place] [address] 76375- 4744 14 Mar, 2016 [facility] [address] [facility] [id number] [place] [address] 09670- 1506 Mar, [facility] [address] [facility] [id number] [place] [address] 65173- 0759 30 Feb, 2016 [facility] [id number] [place] [address], [place] [address]- 4816 29 Feb, 2016 [facility] [id number] [address] 75377- 2368 28 Feb, 2016 [facility] [id number] [address] 65849- 4421 27 Feb, 2016 Restrictive lung disease J98.4 [facility] [address] [facility] [id number] [place] [address], [place] [address]- 5162 23 Feb, 2016 [facility] [address] [facility] [id number], [place] [address] -7982 22 Feb, 2016 [facility] [address] [address]- 5798 16 Feb, 2016 [facility] [id number], [place] [address]- 6392 Jan, [facility] [address] [facility] [id number], [place] [address]- 5299 Jan, [facility] [address] [facility] [id number] [place] [address] 30165- 8986 Jan, [facility] [address] [id number], [place] [address]- 3399 Jan, [facility] [id number] [place] [address] 45492- 0229 Jan, Restrictive lung disease J98.4 ; Anemia D64.9 and Cor pulmonale I27.81 [facility] [id number] [place] [address] 46192- 7281 Dec, [facility] [address] 89035- 5124 Dec, [facility] [address] 85020- 8424 Nov, Arthritis M19.90 and Hypokalemia E87.6 [facility] [address] 94727- 6294 Nov, Back pain M54.9 [facility] [id number] [place] [address] 53616- 7256 October, Back pain M54.9 [facility] [address] 90340- 1142 October, Back pain M54.9 [facility] [id number] [place] [address] 93987- 0087 Sep, Scabies exposure Z20.89 [facility] [id number] [place] [address] 29293- 7612 Sep, Restrictive lung disease J98.4 [facility] [id number] [address] 69052- 1554 Sep, Back pain M54.9 [facility] [id number] [place] [address] 53432- 6463 Sep, Restrictive lung disease J98.4 [facility] [id number] [address] 28550- 3334 Aug, [facility] [id number] [address] 47218- 9706 Aug, [facility] [address] 74190- 0686 Aug, [facility] [id number] [place] [address] 37004- 0967 Aug, [facility] [id number] [address] 24242- 6571 Aug, Back pain M54.9 [facility] [id number] [address] 77436- 9831 Jul, Anemia D64.9 and Prediabetes R73.09 [facility] [id number] [place] [address] 10930- 1322 Jul, Back pain M54.9 [facility] [id number] [place] [address] 22223- 6302 Jul, Back pain M54.9 [facility] [id number] [address] 68661- 0298 Jul, [facility] [id number] [place] [address] 48905- 5464 05 Jul, 2015 Bronchitis J40 and Anemia D64.9 [facility] [id number] [place] [address] 31527- 4484 Jun, [facility] [id number] [place] [address] 78188- 2138 Jun, [facility] [id number] [address] [phone]- [phone] Jun, Bronchitis J40 and Anemia D64.9 [facility] [id number] [address] [phone]- [phone] Jun, [facility] [id number] [address] [phone]- [phone] Jun, Back pain M54.9 [facility] [id number] [address] [phone]- [phone] Jun, Anemia D64.9 [facility] [id number] [place] [address] [phone]- [phone] Jun, Restrictive lung disease J98.4 ; Anemia D64.9 ; Hypothyroidism E03.9 ; Cor pulmonale I27.81 and Back pain M54.9 [facility] [id number] [address] [phone]- [phone] May, [facility] [address] [phone]- [phone] Apr, Anemia D64.9 ; Encounter for immunization Z23 and Restrictive lung disease J98.4 [facility] [address] [phone]- [phone] Apr, [facility] [id number] [address] [phone]- [phone] Mar, [facility] [address] [phone]- [phone] Mar, Iron deficiency anemia D50.9 [facility] [id number] [address] [phone]- [phone] Mar, [facility] [id number] [address] [phone]- [phone] Mar, [facility] [id number] [place] [address] [phone]- [phone] Mar, Anemia D64.9 [facility] [id number] [address] [phone]- [phone] Mar, [facility] [id number] [place] [address] [phone]- [phone] Mar, Anemia D64.9 [facility] [id number] [address] [phone]- [phone] Mar, Restrictive lung disease J98.4 and Anemia D64.9 [facility] [id number] [address] [phone]- [phone] Mar, [facility] [id number] [place] [address] [phone]- [phone] Mar, Anemia D64.9 [facility] [id number] [address] 75846- [phone] Mar, Anemia D64.9 [facility] [id number] [address] [phone]- [phone] Mar, [facility] [id number] [place] [address] [phone]- [phone] Mar, Diabetes mellitus E11.9 ; Bronchitis J40 and Anemia D64.9 [facility] [id number] [place] [address] 83971- 8757 Feb, [facility] [id number] [place] [address] 23046- 4241 Feb, [facility] [address] [address]- 8026 Feb, [facility] [id number] [address] 23021- 0715 Feb, [facility] [id number] [address] 32876- 9974 Jan, [facility] [id number] [address] 13111- 9315 Jan, [facility] [id number] [address] 01046- 2318 Dec, Venous insufficiency 459.81 [facility] [id number] [address] 58947- 1646 Dec, [facility] [id number] [address] 69949- 8834 Dec, [facility] [id number] [address] 72639- 3248 Dec, Coronary atherosclerosis of unspecified type of vessel, akhiok or graft 414.00 ; Unspecified anemia 285.9 and Generalized osteoarthrosis , unspecified site 715.00 [facility] [address] [address] 7849 Nov, [facility] [address] 4155 Nov, [facility] [address], [place] [address]- 1536 Nov, [facility] [id number] [address] 11717- 7775 October, [facility] [address], [place] [address] 7674 October, Acute bronchitis 466.0 and Shortness of breath 786.05 [facility] [address], [place] [address]- 0944 Sep, [facility] [id number] [address] 91769- 1117 Sep, [facility] [address], [place] [address]- 2035 Aug, [facility] [id number] [address]- 6720 Aug, [facility] [address], [place] [address]- 3822 Jul, [facility] [address], [place] [address]- 8344 Jul, [facility] [address], [place] [address]- 8448 Jul, [facility] [address], [place] [address]- 0507 Jul, [facility] [address], [place] [address]- 6140 Jun, [facility] [address], [place] [address]- 5227 Jun, [facility] [place] [facility] [address] [id number] [place] [address]- 3428 Jun, [facility] [place] [facility] [address] [id number] [place] [address]- 9236 Jun, [facility] [place] [facility] [address] [id number] [place] [address]- 2647 Jun, [facility] [place] [facility] [address] [id number] [place] [address]- 9098 Jun, [facility] [place] [facility] [address] [id number] [place] [address]- 6183 May, [facility] [place] [facility] [address] [id number] [place] [address]- 0310 May, [facility] [place] [facility] [address] [id number] [place] [address]- 0775 May, [facility] [place] [facility] [address] [id number] [place] [address]- 3186 May, [facility] [place] [facility] [address] [id number] [place] [address]- 7149 Apr, [facility] [place] [facility] [address] [id number] [place] [address]- 0885 Apr, [facility] [place] [facility] [address] [id number], [place] [address]- 7628 Apr, [facility] [place] [facility] [address] [id number], [place] [address]- 9152 Apr, [facility] [place] [facility] [address] [id number] [place] [address]- 3078 Apr, [facility] [place] [facility] [address] [id number] [place] [address]- 5448 Apr, [facility] [place] [facility] [address] [id number] [place] [address]- 9206 Mar, [facility] [place] [facility] [address] [id number] [place] [address]- 7693 Mar, [facility] [place] [facility] [address] [id number] [place] [address]- 9844 Mar, [facility] [place] [facility] [address] [id number] [place] [address]- 3835 Mar, [facility] [place] [facility] [address] [id number] [place] 0632 Mar, [facility] [place] [facility] [address] [id number] [place] [address]- 3628 Mar, [facility] [place] [facility] [address] [id number] [place] [address]- 4696 Mar, [facility] [place] [facility] [address] [id number] [place] [address]- 7009 Mar, [facility] [place] [facility] [address] [id number] [place] [address]- 6600 Feb, [facility] [place] [facility] [address] [id number] [place] [address]- 0425 Feb, [facility] [place] [facility] [address] [id number] [place] [address]- 7489 Jan, [facility] [place] [facility] [address] [id number] [place] [address]- 0716 Jan, [facility] [place] [facility] [address] [id number] [place] [address]- 5002 Jan, [facility] [place] [facility] [address] [id number] [place] [address]- 4887 Jan, [facility] [place] [facility] [address] [id number] [place] [address]- 1889 Jan, [facility] [place] [facility] [address] [id number] [place] [address]- 1718 Jan, [facility] [place] [facility] [address] [id number] [place] [address]- 6241 Dec, [facility] [place] [facility] [address] [id number] [place] [address]- 9065 Dec, [facility] [place] [facility] [address] [id number] [place] [address]- 9636 Dec, [facility] [place] [facility] [address] [id number] [place] [address]- 4669 Dec, [facility] [place] [facility] [address] [id number] [place] [address]- 0275 Nov, [facility] [place] [facility] [address] [id number] [place] [address]- 9620 Nov, [facility] [place] [facility] [address] [id number] [place] [address]- 5091 Nov, [facility] [place] [facility] [address] [id number] [place] [address]- 8407 Nov, [facility] [place] [facility] [address] [id number] [place] [address]- 2734 Nov, [facility] [place] [facility] [address] [id number] [place] [address]- 5667 Nov, [facility] [place] [facility] [address] [id number] [place] [address]- 9490 Nov, [facility] [place] [facility] [address] [id number] [place] [address]- 0583 Nov, [facility] [place] [facility] [address] [id number] [place] [address]- 0865 Nov, [facility] [place] [facility] [address] [id number] [place] [address]- 0233 Nov, [facility] [place] [facility] [address] [id number] [place] [address]- 5074 Nov, [facility] [place] [facility] [address] [id number] [place] [address]- 2105 Nov, [facility] [place] [facility] [address] [id number] [place] [address]- 4133 October, [facility] [place] [facility] [address] [id number] [place] [address]- 4570 October, [facility] [place] [facility] [address] [id number] [place] [address]- 7491 October, [facility] [place] [facility] [address] [id number] [place] [address]- 0466 October, [facility] [place] [facility] [address] [id number] [place] [address]- 5043 October, [facility] [place] [facility] [address] [id number] [place] [address]- 9867 October, [facility] [place] [facility] [address] [id number] [place] [address]- 0537 October, [facility] [place] [facility] [address] [id number] [place] [address]- 3680 October, [facility] [place] [facility] [address] [id number] [place] [address]- 3536 October, [facility] [place] [facility] [address] [id number] [place] [address]- 8074 Sep, [facility] [place] [facility] [address] [id number] [place] [address]- 9617 Sep, [facility] [place] [facility] [address] [id number] [place] [address]- 3553 Sep, [facility] [place] [facility] [address] [id number] [place] [address]- 7321 Sep, [facility] [place] [facility] [address] [id number] [place] [address]- 0942 Sep, [facility] [place] [facility] [address] [id number] [place] [address]- 8022 Sep, [facility] [place] [facility] [address] [id number] [place] [address]- 4289 Aug, [facility] [place] [facility] [address] [id number] [place] [address]- 1687 Aug, [facility] [place] [facility] [address] [id number] [place] [address]- 7843 Aug, [facility] [place] [facility] [address] [id number] [place] [address]- 1710 Aug, [facility] [place] [facility] [address] [id number] [place] [address]- 9429 Aug, [facility] [place] [facility] [address] [id number] [place] [address]- 9528 Aug, [facility] [place] [facility] [address] [id number] [place] [address]- 5203 Aug, [facility] [place] [facility] [address] [id number] [place] [address]- 8165 Aug, [facility] [place] [facility] [address] [id number] [place] [address]- 8900 Aug, [facility] [place] [facility] [address] [id number] [place] [address]- 4265 Aug, [facility] [place] [facility] [address] [id number] [place] [address]- 8558 Jul, [facility] [place] [facility] [address] [id number] [place] [address]- 2554 Jul, [facility] [place] [facility] [address] [id number] [place] [address]- 2835 Jun, [facility] [place] [facility] [address] [id number] [place] [address]- 2637 Jun, [facility] [place] [facility] [address] [id number] [place] [address]- 0195 Jun, [facility] [place] [facility] [address] [id number] [place] [address]- 7175 Jun, [facility] [place] [facility] [address] [id number] [place] [address]- 6269 Jun, [facility] [address] [id number] [place] [address]- 6906 Jun, [facility] [place] [facility] [address] [id number] [place] [address]- 8279 Jun, [facility] [place] [facility] [address] [id number] [place] [address]- 6412 Jun, [facility] [place] [facility] [address] [id number] [place] [address]- 9229 May, [facility] [place] [facility] [address] [id number] [place] [address]- 6179 May, [facility] [place] [facility] [address] [id number] [place] [address]- 7324 May, [facility] [place] [facility] [address] [id number] [place] [address]- 1711 May, [facility] [place] [facility] [address] [id number] [place] [address]- 1315 May, [facility] [place] [facility] [address] [id number] [place] [address]- 4612 May, [facility] [place] [facility] [address] [id number] [place] [address]- 0402 May, [facility] [place] [facility] [address] [id number] [place] [address]- 3162 May, [facility] [place] [facility] [address] [id number] [place] [address]- 2994 May, [facility] [place] [facility] [address] [id number] [place] [address]- 5202 Apr, [facility] [place] [facility] [address] [id number] [place] [address]- 5742 Apr, [facility] [place] [facility] [address] [id number] [place] [address]- 4453 Apr, [facility] [place] [facility] [address] [id number] [place] [address]- 5016 Apr, 2012 [facility] [place] [facility] [address] [id number] [place] [address]- 2097 30 Mar, 2012 [facility] [place] [facility] [address] [id number] [place] [address]- 6429 30 Mar, 2012 [facility] [place] [facility] [address] [id number] [place] [address]- 8081 30 Mar, 2012 [facility] [place] [facility] [address] [id number] [place] [address]- 8558 30 Mar, 2012 [facility] [place] [facility] [address] [id number] [place] [address]- 1154 30 Mar, 2012 [facility] [place] [facility] [address] [id number] [place] [address]- 5256 30 Mar, 2012 [facility] [place] [facility] [address] [id number] [place] [address]- 0475 Mar, 2012 [facility] [place] [facility] [address] [id number] [place] [address]- 3262 Mar, 2012 [facility] [place] [facility] [address] [id number] [place] [address]- 2256 Mar, 2012 [facility] [place] [facility] [address] [id number], [place] [address]- 8013 Mar, 2012 [facility] [place] [facility] [address] [id number] [place] [address]- 9789 18 Mar, 2012 [facility] [place] [facility] [address] [id number], [place] [address]- 9043 Mar, 2012 [facility] [place] [facility] [address] [id number] [place] [address]- 8472 Mar, 2012 [facility] [place] [facility] [address] [id number], [place] [address]- 9043 Mar, 2012 [facility] [place] [facility] [address] [id number], [place] [address]- 8729 Mar, 2012 [facility] [place] [facility] [address] [id number] [place] [address]- 2215 18 Mar, 2012 [facility] [place] [facility] [address] [id number] [place] [address]- 4936 17 Mar, 2012 [facility] [place] [facility] [address] [id number] [place] [address]- 4867 17 Mar, 2012 [facility] [place] [facility] [address] [id number] [place] [address]- 8812 15 Mar, 2012 [facility] [place] [facility] [address] [id number] [place] [address]- 9106 15 Mar, 2012 [facility] [place] [facility] [address] [id number] [place] [address]- 0678 14 Mar, 2012 [facility] [place] [facility] [address] [id number] [place] [address]- 5848 14 Mar, 2012 [facility] [place] [facility] [address] [id number] [place] [address]- 8104 14 Mar, 2012 [facility] [place] [facility] [address] [id number] [place] [address]- 3971 14 Mar, 2012 [facility] [place] [facility] [address] [id number] [place] [address]- 3969 12 Mar, 2012 [facility] [place] [facility] [address] [id number] [place] [address]- 8502 11 Mar, 2012 [facility] [place] [facility] [address] [id number] [place] [address]- 8402 11 Mar, 2012 [facility] [place] [facility] [address] [id number] [place] [address]- 0530 10 Mar, 2012 [facility] [place] [facility] [address] [id number] [place] [address]- 7153 10 Mar, 2012 [facility] [place] [facility] [address] [id number] [place] [address]- 0613 10 Mar, 2012 [facility] [place] [facility] [address] [id number] [place] [address]- 5026 Mar, [facility] [place] [facility] [address] [id number] [place] [address]- 0123 Mar, [facility] [place] [facility] [address] [id number] [place] [address]- 1777 Mar, [facility] [place] [facility] [address] [id number] [place] [address]- 4285 Feb, [facility] [place] [facility] [address] [id number] [place] [address]- 5783 Feb, [facility] [place] [facility] [address] [id number] [place] [address]- 4198 Feb, [facility] [place] [facility] [address] [id number] [place] [address]- 5108 Feb, [facility] [place] [facility] [address] [id number] [place] [address]- 2596 Jan, [facility] [place] [facility] [address] [id number] [place] [address]- 5067 Jan, [facility] [place] [facility] [address] [id number] [place] [address]- 3077 Jan, [facility] [place] [facility] [address] [id number] [place] [address]- 5284 Jan, [facility] [place] [facility] [address] [id number] [place] [address]- 5485 Jan, [facility] [place] [facility] [address] [id number] [place] [address]- 9922 Jan, [facility] [place] [facility] [address] [id number] [place] [address]- 3141 Dec, [facility] [place] [facility] [address] [id number] [place] [address]- 1589 Dec, [facility] [place] [facility] [address] [id number] [place] [address]- 4797 Dec, [facility] [place] [facility] [address] [id number] [place] [address]- 3243 Dec, [facility] [address] [id number] [place] [address]- 4765 Dec, [facility] [address] [id number] [place] [address]- 8769 Dec, [facility] [address] [id number] [place] [address]- 3592 Dec, [facility] [address] [id number] [place] [address]- 4975 Dec, [facility] [address] [id number] [place] [address]- 3314 Dec, [facility] [address] [id number] [place] [address]- 2603 Dec, [facility] [address] [id number] [place] [address]- 6108 Dec, [facility] [address] [id number] [place] [address]- 7696 October, [facility] [address] [id number] [place] [address]- 0380 October, [facility] [address] [id number] [place] [address]- 8422 October, [facility] [address] [id number] [place] [address]- 5491 October, [facility] [address] [id number] [place] [address]- 4757 Sep, [facility] [address] [id number] [place] [address] Sep, [facility] [address] [id number] [place] [address] Sep, [facility] [address] [id number] [place] [address] Sep, [facility] [address] [facility] [id number] [address] Sep, [facility] [address] [id number] [address] Sep, [facility] [address] [id number], [place] [address] Sep, [facility] [id number], [place] [address] Sep, [facility] [address] [id number], [place] [address] Sep, [facility] [address] [id number], [place] [address] Sep, [facility] [address] [id number], [place] [address] Sep, IMMUNIZATIONS No Known Immunizations SOCIAL HISTORY Never Assessed REASON FOR VISIT percocet PLAN OF CARE VITAL SIGNS MEDICATIONS Medication Instructions Dosage Frequency Start Date End Date Duration Status Percocet 7.5-325 MG Orally 4 times a day 1 tablet 6h Jan, 12 days Active RESULTS No Results PROCEDURES No [...] cramps--[facility] 03/04/16 Hospitalization History [facility] Cellulitis, Hypokalemia, anemia-[facility] 09/29/15 Hospitalization History Lower edema 09/2016 Hospitalization History Received stitches ER 10/2016
--- OUTSIDE RECORDS SUMMARY | 2018-03-19 23:46 | XMS REPORT ---
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 Active 9314400263616 Problem Skin cancer of face C44.300 Active 977909989 Problem Morbid (severe) obesity due to excess calories E66.01 Active 442743258 Problem Body mass index (BMI) of 45.0-49.9 in adult Z68.42 Active 344142536 Problem Venous insufficiency I87.2 Active 09700232 Problem 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 Active 063639701 Problem Anemia D64.9 Active 154070563 Problem Cor pulmonale I27.81 Active 94538188 Problem Back pain M54.9 Active 932337599 Problem Restrictive lung disease J98.4 Active 50727314 Problem Hypothyroidism E03.9 Active 72403932 ALLERGIES No Information ENCOUNTERS Encounter Location Date Diagnosis [facility] [id number], [place] [address] Feb, Arthritis M19.90 [facility] [id number], [place] [address] 6578 Jan, Arthritis M19.90 [facility] [address], [place] [address] 9[address] Jan, Back pain M54.9 and Arthritis M19.90 [facility] [id number], [place] [address] 3682 Jan, [facility] [address] [facility] [id number] [address] 3653 Jan, Back pain M54.9 [facility] [id number] [place] [address] 14380- 0262 Jan, Arthritis M19.90 [facility] [id number] [place] [address] 19552- 3331 Jan, Back pain M54.9 [facility] [id number] [place] [address] 77225- 8598 Jan, [facility] [id number] [place] [address] 93943- 9497 Jan, Back pain M54.9 [facility] [id number] [place] [address] 26795- 4568 Dec, Ingrowing nail with infection L60.0 and Onychomycosis B35.1 [facility] [id number] [place] [address] 79460- 1778 Dec, Arthritis M19.90 [facility] [id number] [place] [address] 55153- 3166 Dec, Ingrowing nail L60.0 [facility] [id number] [place] [address] 49460- 1994 Dec, Back pain M54.9 [facility] [id number], [place] [address] Dec, [facility] [address] [facility] [id number], [place] [address] 8803 Dec, Back pain M54.9 [facility] [id number] [place] [address] 33457- 8477 Nov, Arthritis M19.90 [facility] [id number], [place] [address] 1906 Nov, [facility] [id number] [place] [address] 54856- 0546 Nov, Arthritis M19.90 ; Anemia D64.9 ; Restrictive lung disease J98.4 ; Weakness R53.1 and BMI 50.0-59.9, adult Z68.43 [facility] [id number] [place] [address] 50509- 6253 Nov, Arthritis M19.90 [facility] [id number] [place] [address] 94420- 0598 Nov, Back pain M54.9 [facility] [address] 48729- 6900 October, Back pain M54.9 [facility] [id number] [place] [address] 98724- 2910 October, Back pain M54.9 [facility] [id number] [place] [address] 03409- 6934 Sep, Back pain M54.9 [facility] [id number] [place] [address] 62126- 0463 Sep, Back pain M54.9 [facility] [id number] [place] [address] 87099 -0995 Sep, [facility] [id number] [place] [address] 81025 -9922 Sep, [facility] [id number] [place] [address] 31972 -9651 Sep, Swelling of right lower extremity M79.89 and Cellulitis of right lower extremity L03.115 [facility] [id number] [place] [address] 13026- 9357 Aug, Back pain M54.9 [facility] [id number] [place] [address] 34360- 5840 15 Aug, 2017 Back pain M54.9 [facility] [id number] [place] [address] 18608- 9007 Aug, [place] [id number] [place] [address] 36508- 8432 Aug, Cellulitis of right lower extremity L03.115 ; Ventral hernia without obstruction or gangrene K43.9 and BMI 50.0-59.9, adult Z68.43 [facility] [id number] [place] [address] 17127- 7633 28 Jul, 2017 Back pain M54.9 [facility] [id number] [place] [address] 32722- 4603 Jul, snf (current) 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 Z79.891 ; Arthritis M19.90 ; Back pain M54.9 ; Prediabetes R73.09 ; Hypothyroidism E03.9 ; 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 pectoris I25.10 and Anemia D64.9 [facility] [id number] [place] [address] 67720- 2197 27 Jul, 2017 snf (current) 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 Z79.891 ; Back pain M54.9 ; Arthritis M19.90 ; Prediabetes R73.09 ; Hypothyroidism E03.9 ; 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 pectoris I25.10 ; Anemia D64.9 and BMI 45.0-49.9, adult Z68.42 [facility] [id number] [place] [address] 46264- 9895 15 Jul, 2017 Back pain M54.9 [facility] [id number] [place] [address] 76386- 3320 05 Jul, 2017 Back pain M54.9 [facility] [id number] [place] [address] 55680- 6667 Jun, Back pain M54.9 [facility] [id number] [place] [address] 62971- 1285 Jun, Back pain M54.9 [facility] [id number] [place] [address] 00330 -7329 May, Skin cancer of face C44.300 and BMI 45.0-49.9, adult Z68.42 [facility] [id number] [place] [address] 33327- 6042 May, [facility] [address] 50317- 6512 May, Back pain M54.9 [facility] [id number] [place] [address] 67748- 7135 May, Back pain M54.9 [facility] [address] 54105- 0163 May, Back pain M54.9 [facility] [id number] [place] [address] 84685- 7617 Apr, Back pain M54.9 [facility] [id number] [place] [address] 99467- 6084 Apr, Back pain M54.9 [facility] [address] 03823- 0002 Mar, Back pain M54.9 [facility] [id number] [place] [address] 74798- 9358 Mar, Anemia D64.9 ; Encounter for immunization Z23 ; Arthritis M19.90 and Right inguinal hernia K40.90 [facility] [id number] [place] [address] 63159- 4112 Mar, Back pain M54.9 [facility] [id number] [place] [address] 75213- 4586 22 Feb, 2017 Back pain M54.9 [facility] [id number] [place] [address] 90650- 3116 13 Feb, 2017 Back pain M54.9 [facility] [address] [place] [address]- 7954 Jan, Back pain M54.9 [facility] [address] [facility] [id number] [place] [address] 24427 2546 Jan, Back pain M54.9 [facility] [id number] [place] [address] 18804 2546 Jan, [facility] [id number] [place] [address] 04864 2546 Jan, Back pain M54.9 [facility] [id number] [place] [address] 05326 2546 Dec, Back pain M54.9 [facility] [id number] [place] [address] 27877- 1231 Dec, Back pain M54.9 [facility] [id number] [place] [address] 21501- 9236 Dec, [facility] [id number] [place] [address] 15188 2542 Nov, Hypokalemia E87.6 [facility] [id number] [place] [address] 87834 2546 Nov, Back pain M54.9 [facility] [id number] [place] [address] 85216 2546 Nov, [facility] [id number] [place] [address] 41977 2546 Nov, Arthritis M19.90 [facility] [id number] [place] [address] 12645 2546 Nov, Back pain M54.9 [facility] [id number] [place] [address] 66743 2546 Nov, Generalized edema R60.1 [facility] [id number] [place] [address] 67800 2546 Nov, Back pain M54.9 [place] [id number] [place] [address] 94260- 9709 07 Nov, 2016 Pain in right knee M25.561 [facility] [id number] [place] [address] 99306- 7676 05 Nov, 2016 Encounter for removal of sutures Z48.02 and Pain in right knee M25.561 [facility] [place] [address] 58427 -8201 Nov, Abrasion of right foot, subsequent encounter S90.811D [facility] [place] [id number] [place] [address] 74271 -8969 October, Toe abrasion, right, initial encounter S90.414A [facility] [id number] [place] [address] 72049- 6004 October, [place] [facility] [address] 29377- 1428 October, Back pain M54.9 [facility] [id number] [place] [address] 29584- 0798 October, Venous insufficiency I87.2 [facility] [id number] [place] [address] 44470- 7801 October, Pain in right knee M25.561 [facility] [id number] [place] [address] 94511- 9461 Sep, Back pain M54.9 [facility] [facility] [id number] [place] [address] 19841- 5300 Sep, Venous insufficiency I87.2 [facility] [address] [id number] Sep, [facility] [id number] [place] [address] 73124 -0404 Sep, Leg edema, right R60.0 and Cellulitis of right lower extremity L03.115 [facility] [address] [place] [address]- 4068 14 Sep, 2016 Pedal edema R60.0 [facility] [address] 64184- 1672 04 Sep, 2016 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 ; Pain in right knee M25.561 and Arthritis M19.90 [facility] [facility] [address] 98386- 0652 Aug, Back pain M54.9 [facility] [address] 11162- 5203 Aug, Back pain M54.9 [place] [address] 17792- 4990 Aug, [place] [facility] [address] 93482- 9114 Aug, Type 2 diabetes mellitus without complication E11.9 ; Restrictive lung disease J98.4 ; Arthritis M19.90 ; Back pain M54.9 ; Body mass index (BMI) of 45.0-49.9 in adult Z68.42 and Morbid (severe) obesity due to excess calories E66.01 [facility] [id number] [place] [address] 06993- 3099 Aug, Back pain M54.9 [facility] [id number] [place] [address] 61475- 8728 Aug, Back pain M54.9 [facility] [id number] [place] [address] 58140- 3854 Jul, [facility] [id number] [place] [address] 92465- 0043 Jul, Back pain M54.9 [facility] [id number] [place] [address] 82365- 9361 Jul, Back pain M54.9 [facility] [address] 37830- 1767 Jun, Back pain M54.9 [facility] [address] [facility] [id number] [place] [address] 33602 2546 Jun, Back pain M54.9 [facility] [address] [facility] [id number] [place] [address] 72933 2546 May, Back pain M54.9 [facility] [address] [facility] [id number] [place] [address] 69645 2546 16 May, 2016 Back pain M54.9 [facility] [address] [facility] [id number] [place] [address] 63500 2546 May, Back pain M54.9 [facility] [address] [facility] [id number] [place] [address] 03611 2546 May, Back pain M54.9 [facility] [address] [facility] [id number] [place] [address] 95916 2546 May, [facility] [address] [facility] [id number] [place] [address] 76653 2542 May, Back pain M54.9 and Pain in right knee M25.561 [facility] [address] [facility] [id number] [place] [address] 97202 2545 Apr, [facility] [id number] [place] [address] 88966- 2565 Apr, Type 2 diabetes mellitus without complication E11.9 ; Pain in right knee M25.561 and Pain in left knee M25.562 [facility] [address] [facility] [id number], [place] [address] 2546 Mar, [facility] [address] [facility] [id number] [place] [address] 76512 2546 Mar, [facility] [address] [facility] [id number], [place] [address]- 2546 Mar, [facility] [address] [facility] [id number] [place] [address] 60683- 9572 Mar, Restrictive lung disease J98.4 ; Anemia D64.9 and Cor pulmonale I27.81 [facility] [id number] [place] [address], [place] [address]- 0909 17 Mar, 2016 [facility] [address] [facility] [id number] [place] [address] 44649- 9760 14 Mar, 2016 [facility] [address] [facility] [id number] [place] [address] 40696- 0466 Mar, [facility] [address] [facility] [id number] [place] [address] 73593- 6060 30 Feb, 2016 [facility] [id number] [place] [address], [place] [address]- 7343 29 Feb, 2016 [facility] [id number] [place] [address] 03293- 7408 28 Feb, 2016 [facility] [id number] [place] [address] 28538- 6727 27 Feb, 2016 Restrictive lung disease J98.4 [facility] [address] [facility] [id number] [place] [address], [place] [address]- 9476 23 Feb, 2016 [facility] [address] [facility] [id number], [place] [address] -5995 22 Feb, 2016 [facility] [address], [place] [address]- 2837 16 Feb, 2016 [facility] [id number], [place] [address]- 0705 Jan, [facility] [address] [facility] [id number], [place] [address]- 0738 Jan, [facility] [address] [facility] [id number] [place] [address] 20079- 0380 Jan, [facility] [id number], [place] [address]- 6060 Jan, [facility] [id number] [place] [address] 39650- 4053 Jan, Restrictive lung disease J98.4 ; Anemia D64.9 and Cor pulmonale I27.81 [facility] [id number] [place] [address] 51368- 8921 Dec, [facility] [address] 18831- 0836 Dec, [facility] [address] 78286- 4605 Nov, Arthritis M19.90 and Hypokalemia E87.6 [facility] [address] 01337- 9619 Nov, Back pain M54.9 [facility] [id number] [place] [address] 64729- 1393 October, Back pain M54.9 [facility] [address] 57439- 8939 October, Back pain M54.9 [facility] [id number] [place] [address] 89258- 3428 Sep, Scabies exposure Z20.89 [facility] [id number] [place] [address] 88879- 2733 Sep, Restrictive lung disease J98.4 [facility] [id number] [place] [address] 49318- 6166 Sep, Back pain M54.9 [facility] [id number] [place] [address] 40098- 2021 Sep, Restrictive lung disease J98.4 [facility] [id number] [place] [address] 06677- 2066 Aug, [facility] [id number] [place] [address] 22766- 8293 Aug, [facility] [address] 91449- 1360 Aug, [facility] [id number] [place] [address] 67193- 7292 Aug, [facility] [id number] [place] [address] 24884- 2857 Aug, Back pain M54.9 [facility] [id number] [place] [address] 69750- 9880 Jul, Anemia D64.9 and Prediabetes R73.09 [facility] [id number] [place] [address] 22999- 2728 Jul, Back pain M54.9 [facility] [id number] [place] [address] 62749- 6135 Jul, Back pain M54.9 [facility] [id number] [place] [address] 55066- 4994 Jul, [facility] [id number] [place] [address] 93187- 5536 05 Jul, 2015 Bronchitis J40 and Anemia D64.9 [facility] [id number] [place] [address] 89707- 4148 Jun, [facility] [id number] [place] [address] 91402- 8289 Jun, [facility] [id number] [place] [address] 10659- 3234 Jun, Bronchitis J40 and Anemia D64.9 [facility] [id number] [place] [address] 73910- 6132 Jun, [facility] [id number] [place] [address] 14216- 8048 Jun, Back pain M54.9 [facility] [id number] [place] [address] 59896- 9504 Jun, Anemia D64.9 [facility] [id number] [place] [address] 82051- 5052 Jun, Restrictive lung disease J98.4 ; Anemia D64.9 ; Hypothyroidism E03.9 ; Cor pulmonale I27.81 and Back pain M54.9 [facility] [id number] [place] [address] 83212- 9972 May, [facility] [address] 43377- 3296 Apr, Anemia D64.9 ; Encounter for immunization Z23 and Restrictive lung disease J98.4 [facility] [address] 83207- 3861 Apr, [facility] [id number] [place] [address] 50192- 2455 Mar, [facility] [address] 62256- 2955 Mar, Iron deficiency anemia D50.9 [facility] [id number] [place] [address] 87109- 4538 Mar, [facility] [id number] [place] [address] 37261- 6618 Mar, [facility] [id number] [place] [address] 68715- 9222 Mar, Anemia D64.9 [facility] [id number] [place] [address] 00416- 8072 Mar, [facility] [id number] [place] [address] 23884- 2250 Mar, Anemia D64.9 [facility] [id number] [place] [address] 82055- 6030 Mar, Restrictive lung disease J98.4 and Anemia D64.9 [facility] [id number] [place] [address] 65815- 4704 Mar, [facility] [id number] [place] [address] 70498- 9709 Mar, Anemia D64.9 [facility] [id number] [place] [address] 19945- 4292 Mar, Anemia D64.9 [facility] [id number] [place] [address] 03526- 4643 Mar, [facility] [id number] [place] [address] 37294- 6653 Mar, Diabetes mellitus E11.9 ; Bronchitis J40 and Anemia D64.9 [facility] [id number] [place] [address] 09833- 9198 Feb, [facility] [id number] [place] [address] 53602- 3621 Feb, [facility] [address] [address]- [address]18 Feb, [facility] [id number] [place] [address] 76176- 2912 Feb, [facility] [id number] [place] [address] 95414- 9459 Jan, [facility] [id number] [place] [address] 89669- 3561 Jan, [facility] [id number] [place] [address] 59666- 2053 Dec, Venous insufficiency 459.81 [facility] [id number] [place] [address] 54406- 0965 Dec, [facility] [id number] [place] [address] 26967- 1713 Dec, [facility] [id number] [place] [address] 27278- 9298 Dec, Coronary atherosclerosis of unspecified type of vessel, pra[place] or graft 414.00 ; Unspecified anemia 285.9 and Generalized osteoarthrosis , unspecified site 715.00 [facility] [id number] [address] Nov, [facility] [address] [address] 4049 Nov, [facility] [id number] [address] 5013 Nov, [facility] [id number] [place] [address] 17316- 1459 October, [facility] [address] [address] 3431 October, Acute bronchitis 466.0 and Shortness of breath 786.05 [facility] [id number] [address] 4637 Sep, [facility] [id number] [place] [address] 93855- 6480 Sep, [facility] [id number] [address] 6430 Aug, [facility] [id number] [address]- 1194 Aug, [facility] [id number] [place] [address] 5815 Jul, [facility] [id number] [place] [address]- 0630 Jul, [facility] [id number] [place] [address]- 1274 Jul, [facility] [id number] [place] [address]- 2171 Jul, [facility] [id number] [place] [address]- 2266 Jun, [facility] [id number] [place] [address]- 4917 Jun, [facility] [place] [facility] [address] [id number] [place] [address]- 7628 Jun, [facility] [place] [facility] [address] [id number] [place] [address]- 0871 Jun, [facility] [place] [facility] [address] [id number] [place] [address]- 7309 Jun, [facility] [place] [facility] [address] [id number] [place] [address]- 8083 Jun, [facility] [place] [facility] [address] [id number] [place] [address]- 6999 May, [facility] [place] [facility] [address] [id number] [place] [address] May, [facility] [place] [facility] [address] [id number] [place] [address]- 3180 May, [facility] [facility] [address] [id number] [place] [address] May, [facility] [place] [facility] [address] [id number] [place] [address] Apr, [facility] [place] [facility] [address] [id number] [place] [address] 7544 Apr, [facility] [place] [facility] [address] [id number], [place] [address] Apr, [facility] [place] [facility] [address] [id number], [place] [address] Apr, [facility] [place] [facility] [address] [id number] [place] [address] 2966 Apr, [facility] [place] [facility] [address] [id number] [place] [address] 2085 Apr, [facility] [place] [facility] [address] [id number] [place] [address] 7044 Mar, [facility] [place] [facility] [address] [id number] [place] [address] 2041 Mar, [facility] [place] [facility] [address] [id number] [place] [address] 2717 Mar, [facility] [place] [facility] [address] [id number] [place] [address] 9403 Mar, [facility] [place] [facility] [address] [id number] [place] [address] Mar, [facility] [place] [facility] [address] [id number] [place] [address] 5349 Mar, [facility] [place] [facility] [address] [id number] [place] [address] 5953 Mar, [facility] [place] [facility] [address] [id number] [place] [address]- 3[address] Mar, [facility] [place] [facility] [address] [id number] [place] [address]- 3036 Feb, [facility] [place] [facility] [address] [id number] [place] [address]- 64[address] Feb, [facility] [place] [facility] [address] [id number] [place] [address] 47[address] Jan, [facility] [place] [facility] [address] [id number] [place] [address]- 9877 Jan, [facility] [place] [facility] [address] [id number] [place] [address]- 6772 Jan, [facility] [place] [facility] [address] [id number] [place] [address]- 9552 Jan, [facility] [place] [facility] [address] [id number] [place] [address]- 7954 Jan, [facility] [place] [facility] [address] [id number] [place] [address] 479[address] Jan, [facility] [place] [facility] [address] [id number] [place] [address]- 8381 Dec, [facility] [place] [facility] [address] [id number] [place] [address]- 0724 Dec, [facility] [place] [facility] [address] [id number] [place] [address]- 6787 Dec, [facility] [place] [facility] [address] [id number] [place] [address]- 3525 Dec, [facility] [place] [facility] [address] [id number] [place] [address]- 7671 Nov, [facility] [place] [facility] [address] [id number] [place] [address]- 4335 Nov, [facility] [place] [facility] [address] [id number] [place] [address]- 7317 Nov, [facility] [place] [address] [id number] [place] [address]- 8817 Nov, [facility] [place] [address] [id number] [place] [address]- 1021 Nov, [facility] [place] [facility] [address] [id number] [place] [address]- 1444 Nov, [facility] [place] [facility] [address] [id number] [place] [address]- 8507 Nov, [facility] [place] [address] [id number] [place] [address]- 5327 Nov, [facility] [place] [address] [id number] [place] [address]- 6808 Nov, [facility] [place] [address] [id number] [place] [address]- 4851 Nov, [facility] [place] [address] [id number] [place] [address]- 2192 Nov, [facility] [place] [facility] [address] [id number] [place] [address]- 5185 Nov, [facility] [place] [facility] [address] [id number] [place] [address]- 6983 October, [facility] [place] [address] [id number] [place] [address]- 3753 October, [facility] [place] [facility] [address] [id number] [place] [address]- 8761 October, [facility] [place] [facility] [address] [id number] [place] [address]- 9831 October, [facility] [address] [id number] [place] [address]- 7363 October, [facility] [place] [address] [id number] [place] [address]- 5001 October, [facility] [place] [address] [id number] [place] [address]- 5866 October, [facility] [address] [id number] [place] [address]- 9941 October, [facility] [address] [id number] [place] [address]- 3802 October, [facility] [place] [address] [id number] [place] [address]- 0526 Sep, [facility] [address] [id number] [place] [address]- 2350 Sep, [facility] [address] [id number] [place] [address]- 1997 Sep, [facility] [facility] [address] [id number] [place] [address]- 4579 Sep, [facility] [address] [id number] [place] [address]- 6144 Sep, [facility] [address] [id number] [place] [address]- 3436 Sep, [facility] [place] [facility] [address] [id number] [place] [address]- 0981 Aug, [facility] [address] [id number] [place] [address]- 5343 Aug, [facility] [address] [id number] [place] [address]- 1748 Aug, [facility] [place] [facility] [address] [id number] [place] [address]- 3961 Aug, [facility] [address] [id number] [place] [address]- 8564 Aug, [facility] [address] [id number] [place] [address]- 1628 Aug, [facility] [place] [facility] [address] [id number] [place] [address]- 5017 Aug, [facility] [address] [id number] [place] [address]- 6256 Aug, [facility] [address] [id number] [place] [address]- 8291 Aug, [facility] [address] [id number] [place] [address]- 5197 Aug, [facility] [address] [id number] [place] [address]- 3001 Jul, [facility] [address] [id number] [place] [address]- 1336 Jul, [facility] [address] [id number] [place] [address]- 7576 Jun, [facility] [address] [id number] [place] [address]- 4041 Jun, [facility] [address] [id number] [place] [address]- 74[address] Jun, [facility] [address] [id number] [place] [address]- 1326 Jun, [facility] [address] [id number] [place] [address]- 6902 Jun, [facility] [address] [id number] [place] [address]- 8480 Jun, [facility] [address] [id number] [place] [address]- 7604 Jun, [facility] [address] [id number] [place] [address]- 9156 Jun, [facility] [address] [id number] [place] [address]- 4212 May, [facility] [address] [id number] [place] [address]- 1302 May, [facility] [address] [id number] [place] [address]- 2483 May, [facility] [address] [id number] [place] [address]- 4488 May, [facility] [address] [id number] [place] [address]- 3322 May, [facility] [address] [id number] [place] [address]- 6272 May, [facility] [address] [id number] [place] [address]- 0090 May, [facility] [address] [id number] [place] [address]- 1805 May, [facility] [address] [id number] [place] [address]- 2609 May, [facility] [address] [id number] [place] [address]- 5146 Apr, [facility] [address] [id number] [place] [address]- 4168 Apr, [facility] [address] [id number] [place] [address]- 4110 Apr, [facility] [address] [id number] [place] [address]- 9736 Apr, 2012 [facility] [address] [id number] [place] [address]- 7500 30 Mar, 2012 [facility] [address] [id number] [place] [address]- 9550 30 Mar, 2012 [facility] [address] [id number] [place] [address]- 7850 30 Mar, 2012 [facility] [address] [id number] [place] [address]- 2108 30 Mar, 2012 [facility] [address] [id number] [place] [address]- 9328 30 Mar, 2012 [facility] [address] [id number] [place] [address]- 1021 30 Mar, 2012 [facility] [address] [id number] [place] [address]- 6757 Mar, 2012 [facility] [address] [id number] [place] [address]- 4677 Mar, 2012 [facility] [address] [id number] [place] [address]- 7169 Mar, 2012 [facility] [address] [id number], [place] [address]- 0499 Mar, 2012 [facility] [address] [id number] [place] [address]- 0985 18 Mar, 2012 [facility] [address] [id number], [place] [address]- 1435 Mar, 2012 [facility] [address] [id number] [place] [address]- 2677 Mar, 2012 [facility] [address] [id number], [place] [address]- 8418 Mar, 2012 [facility] [address] [id number], [place] [address]- 8614 Mar, 2012 [facility] [address] [id number] [place] [address]- 1702 18 Mar, 2012 [facility] [address] [id number] [place] [address]- 6027 17 Mar, 2012 [facility] [address] [id number] [place] [address]- 1600 17 Mar, 2012 [facility] [address] [id number] [place] [address]- 6558 15 Mar, 2012 [facility] [address] [id number] [place] [address]- 8826 15 Mar, 2012 [facility] [address] [id number] [place] [address]- 4421 14 Mar, 2012 [facility] [address] [id number] [place] [address]- 6772 14 Mar, 2012 [facility] [address] [id number] [place] [address]- 7957 14 Mar, 2012 [facility] [address] [id number] [place] [address]- 4820 14 Mar, 2012 [facility] [address] [id number] [place] [address]- 4114 12 Mar, 2012 [facility] [address] [id number] [place] [address]- 5079 11 Mar, 2012 [facility] [address] [id number] [place] [address]- 6337 11 Mar, 2012 [facility] [address] [id number] [place] [address]- 9645 10 Mar, 2012 [facility] [address] [id number] [place] [address]- 9610 10 Mar, 2012 [facility] [address] [id number] [place] [address]- 3231 10 Mar, 2012 [facility] [address] [id number] [place] [address]- 2760 Mar, [facility] [address] [id number] [place] [address]- 1038 Mar, [facility] [address] [id number] [place] [address]- 3893 Mar, [facility] [address] [id number] [place] [address]- 4043 Feb, [facility] [facility] [address] [id number] [place] [address]- 9153 Feb, [facility] [address] [id number] [place] [address]- 0927 Feb, [facility] [address] [id number] [place] [address]- 3211 Feb, [facility] [place] [facility] [address] [id number] [place] [address]- 9882 Jan, [facility] [address] [id number] [place] [address]- 4526 Jan, [facility] [address] [id number] [place] [address]- 3576 Jan, [facility] [address] [id number] [place] [address]- 4529 Jan, [facility] [address] [id number] [place] [address]- 3090 Jan, [facility] [address] [id number] [place] [address]- 1330 Jan, [facility] [address] [id number] [place] [address]- 2438 Dec, [facility] [address] [id number] [place] [address]- 7829 Dec, [facility] [address] [id number] [place] [address]- 2746 Dec, [facility] [address] [id number] [place] [address]- 4527 Dec, [facility] [address] [id number] [place] [address]- 6488 Dec, [facility] [address] [id number] [place] [address]- 5066 Dec, [facility] [address] [id number] [place] [address]- 7310 Dec, [facility] [address] [id number] [place] [address]- 5215 Dec, [facility] [address] [id number] [place] [address]- 4783 Dec, [facility] [address] [id number] [place] [address]- 9135 Dec, [facility] [address] [id number] [place] [address]- 4572 Dec, [facility] [address] [id number] [place] [address]- 7949 October, [facility] [address] [id number] [place] [address]- 3940 October, [facility] [address] [id number] [place] [address]- 0899 October, [facility] [address] [id number] [place] [address]- 3038 October, [facility] [address] [id number] [place] [address]- 7939 Sep, [facility] [address] [id number] [place] [address]- 2650 Sep, [facility] [address] [id number] [place] [address]- 7551 Sep, [facility] [address] [id number] [place] [address]- 2465 Sep, [facility] [address] [facility] [id number], [place] [address]- 2823 Sep, [facility] [address] [id number], [place] [address]- 1687 Sep, [facility] [address] [id number], [place] [address]- 2064 Sep, [facility] [id number], [place] [address]- 0334 Sep, [facility] [address] [id number], [place] [address]- 2310 Sep, [facility] [id number], [place] [address]- 7150 Sep, [facility] [address] [id number], [place] [address]- 1486 Sep, IMMUNIZATIONS No Known Immunizations SOCIAL HISTORY Never Assessed REASON FOR VISIT Controlled Med Refill PLAN OF CARE VITAL SIGNS MEDICATIONS Medication Instructions Dosage Frequency Start Date End Date Duration Status Percocet 7.5-325 MG Orally 4 times a day 1 tablet 6h Jan, Feb, 12 days Active Fentanyl 100 MCG/HR Transdermal every 72 hours 1 Patch Jan, Feb, 28 days Active RESULTS No Results PROCEDURES [...] problems 09/2015 Hospitalization History Acute dyspnea, muscle cramps--[facility] 03/04/16 Hospitalization History RLE Cellulitis, Hypokalemia, anemia-[facility] 09/29/15 Hospitalization History Lower edema 09/2016 Hospitalization History Received stitches ER 10/2016
--- OUTSIDE RECORDS SUMMARY | 2018-03-19 23:47 | XMS REPORT ---
Author Author JAN HERNANDEZ [facility] Address [address] [place] [address] Care Team Providers Care Surgical Oncologist Name Role Phone JAN HERNANDEZ Unavailable PROBLEMS Type Condition ICD9-CM Code HRZ09-JU Code Onset Dates Condition Status SNOMED Code Problem Prediabetes R73.09 Active 2092299 Problem Arthritis M19.90 Active 8331018 Problem Hypokalemia E87.6 Active 15958485 Problem Coronary artery disease involving huslia coronary artery of huslia heart without angina pectoris I25.10 Active 3599323799458 Problem Skin cancer of face C44.300 Active 823806179 Problem Morbid (severe) obesity due to excess calories E66.01 Active 467127266 Problem Body mass index (BMI) of 45.0-49.9 in adult Z68.42 Active 016214657 Problem Venous insufficiency I87.2 Active 97429556 Problem 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 Active 193107101 Problem Anemia D64.9 Active 831933782 Problem Cor pulmonale I27.81 Active 35902351 Problem Back pain M54.9 Active 097381718 Problem Restrictive lung disease J98.4 Active 16492139 Problem Hypothyroidism E03.9 Active 45690187 ALLERGIES No Information ENCOUNTERS Encounter Location Date Diagnosis [facility] [id number] [address] Feb, Arthritis M19.90 [facility] [id number], [place] [address] 2879 Jan, Arthritis M19.90 [facility] [address], [place] [address] 4081 Jan, Back pain M54.9 and Arthritis M19.90 [facility] [id number] [address] 8312 Jan, [facility] [address] [facility] [id number] [address] 12[address] Jan, Back pain M54.9 [facility] [id number] [place] [address] 56036- 5400 Jan, Arthritis M19.90 [facility] [address] [place] [address] 98378- 1570 Jan, Back pain M54.9 [facility] [id number] [place] [address] 72478- 8872 Jan, [facility] [id number] [place] [address] 46503- 9435 Jan, Back pain M54.9 [facility] [id number] [place] [address] 18488- 6706 Dec, Ingrowing nail with infection L60.0 and Onychomycosis B35.1 [facility] [address] [place] [address] 75136- 8807 Dec, Arthritis M19.90 [facility] [id number] [place] [address] 26603- 8027 Dec, Ingrowing nail L60.0 [facility] [id number] [place] [address] 17105- 3509 Dec, Back pain M54.9 [facility] [id number] [address] Dec, [facility] [address] [facility] [id number] [address] 8878 Dec, Back pain M54.9 [facility] [id number] [place] [address] 93704- 9829 Nov, Arthritis M19.90 [facility] [id number], [place] [address] 0850 Nov, [facility] [id number] [place] [address] 12928- 2886 Nov, Arthritis M19.90 ; Anemia D64.9 ; Restrictive lung disease J98.4 ; Weakness R53.1 and BMI 50.0-59.9, adult Z68.43 [facility] [id number] [place] [address] 21625- 2514 Nov, Arthritis M19.90 [facility] [id number] [place] [address] 18717- 0209 Nov, Back pain M54.9 [facility] [address] [address]- 8830 October, Back pain M54.9 [facility] [id number] [place] [address] 35944- 9649 October, Back pain M54.9 [facility] [id number] [place] [address] 10027- 1607 Sep, Back pain M54.9 [facility] [id number] [place] [address] 70983- 8998 Sep, Back pain M54.9 [facility] [id number] [place] [address] 56581 -1853 Sep, [facility] [id number] [place] [address] 48476 -3456 Sep, [facility] [id number] [place] [address] 86196 -4822 Sep, Swelling of right lower extremity M79.89 and Cellulitis of right lower extremity L03.115 [facility] [id number] [place] [address] 46114- 8512 Aug, Back pain M54.9 [facility] [id number] [place] [address] 11295- 9737 15 Aug, 2017 Back pain M54.9 [facility] [id number] [place] [address] 22402- 0662 Aug, [place] [id number] [place] [address] 66151- 4147 Aug, Cellulitis of right lower extremity L03.115 ; Ventral hernia without obstruction or gangrene K43.9 and BMI 50.0-59.9, adult Z68.43 [place] [facility] [id number] [place] [address] 88990- 2448 28 Jul, 2017 Back pain M54.9 [place] [id number] [place] [address] 99182- 5556 Jul, senior living (current) 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 Z79.891 ; Arthritis M19.90 ; Back pain M54.9 ; Prediabetes R73.09 ; Hypothyroidism E03.9 ; Coronary artery disease involving huslia coronary artery of huslia heart without angina pectoris I25.10 and Anemia D64.9 [place] [id number] [place] [address] 77621- 2830 27 Jul, 2017 senior living (current) 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 Z79.891 ; Back pain M54.9 ; Arthritis M19.90 ; Prediabetes R73.09 ; Hypothyroidism E03.9 ; Coronary artery disease involving huslia coronary artery of huslia heart without angina pectoris I25.10 ; Anemia D64.9 and BMI 45.0-49.9, adult Z68.42 [place] [id number] [place] [address] 11285- 4932 15 Jul, 2017 Back pain M54.9 [place] [facility] [id number] [place] [address] 82008- 8726 05 Jul, 2017 Back pain M54.9 [place] [id number] [place] [address] 69053- 8611 Jun, Back pain M54.9 [place] [id number] [place] [address] 92636- 3131 Jun, Back pain M54.9 [facility] [address] [place] [address] 83318 -5205 May, Skin cancer of face C44.300 and BMI 45.0-49.9, adult Z68.42 [facility] [id number] [place] [address] 15972- 8734 May, [facility] [address] 52101- 0226 May, Back pain M54.9 [facility] [id number] [place] [address] 01348- 0945 May, Back pain M54.9 [facility] [address] 66455- 8728 May, Back pain M54.9 [facility] [id number] [place] [address] 55315- 4310 Apr, Back pain M54.9 [facility] [id number] [place] [address] 47220- 0103 Apr, Back pain M54.9 [facility] [address] 26235- 0899 Mar, Back pain M54.9 [facility] [id number] [place] [address] 89628- 3968 Mar, Anemia D64.9 ; Encounter for immunization Z23 ; Arthritis M19.90 and Right inguinal hernia K40.90 [facility] [id number] [place] [address] 70788- 1997 Mar, Back pain M54.9 [facility] [id number] [place] [address] 35554- 2714 22 Feb, 2017 Back pain M54.9 [facility] [id number] [place] [address] 47754- 2677 13 Feb, 2017 Back pain M54.9 [facility] [address] [place] [address]- 3409 Jan, Back pain M54.9 [facility] [address] [facility] [id number] [place] [address] 04209 2546 Jan, Back pain M54.9 [facility] [id number] [place] [address] 10354 2546 Jan, [facility] [id number] [place] [address] 87973 2546 Jan, Back pain M54.9 [facility] [id number] [place] [address] 13521 2546 Dec, Back pain M54.9 [facility] [id number] [place] [address] 68403- 0764 Dec, Back pain M54.9 [facility] [id number] [place] [address] 24198- 9826 Dec, [facility] [id number] [place] [address] 58070 2543 Nov, Hypokalemia E87.6 [facility] [id number] [place] [address] 43751 2546 Nov, Back pain M54.9 [facility] [id number] [place] [address] 90166 2546 Nov, [facility] [id number] [place] [address] 92718 2546 Nov, Arthritis M19.90 [facility] [id number] [place] [address] 98828 2546 Nov, Back pain M54.9 [facility] [id number] [place] [address] 48636 2546 Nov, Generalized edema R60.1 [facility] [id number] [place] [address] 24294 2546 Nov, Back pain M54.9 [place] [id number] [place] [address] 41224- 4638 07 Nov, 2016 Pain in right knee M25.561 [place] [id number] [place] [address] 26120- 8443 05 Nov, 2016 Encounter for removal of sutures Z48.02 and Pain in right knee M25.561 [facility] [place] [address] 59867 -6972 Nov, Abrasion of right foot, subsequent encounter S90.811D [facility] [place] [id number] [place] [address] 19730 -0035 October, Toe abrasion, right, initial encounter S90.414A [place] [id number] [place] [address] 28350- 9255 October, [place] [address] 06833- 1745 October, Back pain M54.9 [place] [id number] [place] [address] 65201- 2846 October, Venous insufficiency I87.2 [place] [id number] [place] [address] 88095- 8795 October, Pain in right knee M25.561 [place] [id number] [place] [address] 33107- 4997 Sep, Back pain M54.9 [place] [id number] [place] [address] 19479- 3158 Sep, Venous insufficiency I87.2 [facility] [address] [id number] Sep, [facility] [id number] [place] [address] 22812 -2014 Sep, Leg edema, right R60.0 and Cellulitis of right lower extremity L03.115 [place] [address] [place] [address]- 2736 14 Sep, 2016 Pedal edema R60.0 [facility] [address] 68033- 3569 04 Sep, 2016 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 ; Pain in right knee M25.561 and Arthritis M19.90 [place] [address] 86839- 9383 Aug, Back pain M54.9 [facility] [address] 16487- 2837 Aug, Back pain M54.9 [place] [address] 48102- 4404 Aug, [place] [address] 29289- 1758 Aug, Type 2 diabetes mellitus without complication E11.9 ; Restrictive lung disease J98.4 ; Arthritis M19.90 ; Back pain M54.9 ; Body mass index (BMI) of 45.0-49.9 in adult Z68.42 and Morbid (severe) obesity due to excess calories E66.01 [place] [id number] [place] [address] 35636- 5179 Aug, Back pain M54.9 [facility] [id number] [place] [address] 80659- 0264 Aug, Back pain M54.9 [facility] [id number] [place] [address] 31024- 6471 Jul, [place] [id number] [place] [address] 24276- 7131 Jul, Back pain M54.9 [facility] [id number] [place] [address] 93699- 0961 Jul, Back pain M54.9 [facility] [address] 21870- 6200 Jun, Back pain M54.9 [facility] [address] [facility] [id number] [place] [address] 78517 2546 Jun, Back pain M54.9 [facility] [address] [facility] [id number] [place] [address] 16719 2546 May, Back pain M54.9 [facility] [address] [facility] [id number] [place] [address] 86686 2546 16 May, 2016 Back pain M54.9 [facility] [address] [facility] [id number] [place] [address] 90835 2546 May, Back pain M54.9 [facility] [address] [facility] [id number] [place] [address] 23201 2546 May, Back pain M54.9 [facility] [address] [facility] [id number] [place] [address] 00686 2546 May, [facility] [address] [facility] [id number] [place] [address] 07802 2549 May, Back pain M54.9 and Pain in right knee M25.561 [facility] [address] [facility] [id number] [place] [address] 67298 2545 Apr, [facility] [id number] [place] [address] 27111- 6821 Apr, Type 2 diabetes mellitus without complication E11.9 ; Pain in right knee M25.561 and Pain in left knee M25.562 [facility] [address] [facility] [id number], [place] [address] 2546 Mar, [facility] [address] [facility] [id number] [place] [address] 79560 2546 Mar, [facility] [address] [facility] [id number], [place] [address]- 2546 Mar, [facility] [address] [facility] [id number] [place] [address] 95893- 5091 Mar, Restrictive lung disease J98.4 ; Anemia D64.9 and Cor pulmonale I27.81 [facility] [id number] [place] [address], [place] [address]- 2504 17 Mar, 2016 [facility] [address] [facility] [id number] [place] [address] 71091- 4728 14 Mar, 2016 [facility] [address] [facility] [id number] [place] [address] 41878- 4373 Mar, [facility] [address] [facility] [id number] [place] [address] 32793- 6559 30 Feb, 2016 [facility] [id number] [place] [address], [place] [address]- 8151 29 Feb, 2016 [facility] [id number] [place] [address] 61773- 1153 28 Feb, 2016 [facility] [id number] [place] [address] 34151- 4748 27 Feb, 2016 Restrictive lung disease J98.4 [facility] [address] [facility] [id number] [place] [address], [place] [address]- 5740 23 Feb, 2016 [facility] [address] [facility] [id number], [place] [address] -7424 22 Feb, 2016 [facility] [address] [address]- 7276 16 Feb, 2016 [facility] [id number], [place] [address]- 3146 Jan, [facility] [address] [facility] [id number], [place] [address]- 0424 Jan, [facility] [address] [facility] [id number] [place] [address] 90154- 7778 Jan, [facility] [id number], [place] [address]- 3767 Jan, [facility] [id number] [place] [address] 86846- 0303 Jan, Restrictive lung disease J98.4 ; Anemia D64.9 and Cor pulmonale I27.81 [facility] [id number] [place] [address] 64234- 5673 Dec, [facility] [address] 91315- 9985 Dec, [facility] [address] 14423- 8604 Nov, Arthritis M19.90 and Hypokalemia E87.6 [facility] [address] 16097- 5810 Nov, Back pain M54.9 [facility] [id number] [place] [address] 86483- 9137 October, Back pain M54.9 [facility] [address] 08961- 7677 October, Back pain M54.9 [facility] [id number] [place] [address] 92399- 5580 Sep, Scabies exposure Z20.89 [facility] [id number] [place] [address] 78077- 6815 Sep, Restrictive lung disease J98.4 [facility] [id number] [place] [address] 07359- 1146 Sep, Back pain M54.9 [facility] [id number] [place] [address] 02885- 1970 Sep, Restrictive lung disease J98.4 [facility] [id number] [place] [address] 33621- 0756 Aug, [facility] [id number] [place] [address] 41009- 0432 Aug, [facility] [address] 45639- 5135 Aug, [facility] [id number] [place] [address] 20763- 6471 Aug, [facility] [id number] [place] [address] 44848- 1983 Aug, Back pain M54.9 [facility] [id number] [place] [address] 80307- 9723 Jul, Anemia D64.9 and Prediabetes R73.09 [facility] [id number] [place] [address] 12324- 2892 Jul, Back pain M54.9 [facility] [id number] [place] [address] 83040- 0750 Jul, Back pain M54.9 [facility] [id number] [place] [address] 91006- 0417 Jul, [facility] [id number] [place] [address] 53851- 2068 05 Jul, 2015 Bronchitis J40 and Anemia D64.9 [facility] [id number] [place] [address] 22710- 6335 Jun, [facility] [id number] [place] [address] 94477- 4088 Jun, [facility] [id number] [place] [address] 73472- 6061 Jun, Bronchitis J40 and Anemia D64.9 [facility] [address] [place] [address] 45929- 0949 Jun, [facility] [id number] [place] [address] 20782- 3058 Jun, Back pain M54.9 [facility] [address] [place] [address] 46670- 1330 Jun, Anemia D64.9 [facility] [id number] [place] [address] 35422- 3126 Jun, Restrictive lung disease J98.4 ; Anemia D64.9 ; Hypothyroidism E03.9 ; Cor pulmonale I27.81 and Back pain M54.9 [facility] [id number] [place] [address] 37194- 8039 May, [facility] [address] 78444- 2529 Apr, Anemia D64.9 ; Encounter for immunization Z23 and Restrictive lung disease J98.4 [facility] [address] 70168- 0755 Apr, [facility] [id number] [place] [address] 75755- 6362 Mar, [facility] [address] 21056- 4659 Mar, Iron deficiency anemia D50.9 [facility] [id number] [place] [address] 46934- 7674 Mar, [facility] [id number] [place] [address] 66447- 3128 Mar, [facility] [id number] [place] [address] 98542- 7084 Mar, Anemia D64.9 [facility] [id number] [place] [address] 80271- 0766 Mar, [facility] [id number] [place] [address] 98024- 8146 Mar, Anemia D64.9 [facility] [id number] [place] [address] 43721- 1603 Mar, Restrictive lung disease J98.4 and Anemia D64.9 [facility] [id number] [place] [address] 88557- 7114 Mar, [facility] [id number] [place] [address] 97001- 8357 Mar, Anemia D64.9 [facility] [id number] [place] [address] 94158- 2720 Mar, Anemia D64.9 [facility] [id number] [place] [address] 34238- 0512 Mar, [facility] [id number] [place] [address] 98731- 3913 Mar, Diabetes mellitus E11.9 ; Bronchitis J40 and Anemia D64.9 [facility] [id number] [place] [address] [id number]- 5953 Feb, [facility] [id number] [place] [address] 49084- 7996 Feb, [facility] [address] [address]- [address]27 Feb, [facility] [id number] [place] [address] 94522- 7139 Feb, [facility] [id number] [place] [address] 71482- 2715 Jan, [facility] [id number] [place] [address] 88124- 0138 Jan, [facility] [id number] [place] [address] 86235- 8702 Dec, Venous insufficiency 459.81 [facility] [id number] [place] [address] 59509- 6697 Dec, [facility] [id number] [place] [address] 77420- 4861 Dec, [facility] [id number] [place] [address] 93422- 4964 Dec, Coronary atherosclerosis of unspecified type of vessel, huslia or graft 414.00 ; Unspecified anemia 285.9 and Generalized osteoarthrosis , unspecified site 715.00 [facility] [address] [address] Nov, [facility] [address] [address] Nov, [facility] [address] [place] [address] 7727 Nov, [facility] [id number] [place] [address] 10334- 2164 October, [facility] [address] [address] October, Acute bronchitis 466.0 and Shortness of breath 786.05 [facility] [address] [address] Sep, [facility] [id number] [place] [address] 16641- 0398 Sep, [facility] [address] [place] [address] 5842 Aug, [facility] [id number] [address] 6882 Aug, [facility] [address] [place] [address] 5480 Jul, [facility] [address] [place] [address] 7777 Jul, [facility] [address] [place] [address] 3[address] Jul, [facility] [address] [place] [address] 6235 Jul, [facility] [address] [place] [address] 4148 Jun, [facility] [address] [place] [address] 7580 Jun, [facility] [place] [facility] [address] [id number] [place] [address]- 9125 Jun, [facility] [place] [facility] [address] [id number] [place] [address] Jun, [facility] [place] [facility] [address] [id number] [place] [address] 17[address] Jun, [facility] [place] [facility] [address] [id number] [place] [address] 6040 Jun, [facility] [place] [facility] [address] [id number] [place] [address] 2530 May, [facility] [place] [facility] [address] [id number] [place] [address]- 2802 May, [facility] [place] [facility] [address] [id number] [place] [address]- 1354 May, [facility] [place] [facility] [address] [id number] [place] [address]- 8[address] May, [facility] [place] [facility] [address] [id number] [place] [address] 3637 Apr, [facility] [place] [facility] [address] [id number] [place] [address]- 7519 Apr, [facility] [place] [facility] [address] [id number], [place] [address] Apr, [facility] [place] [facility] [address] [id number], [place] [address] Apr, [facility] [place] [facility] [address] [id number] [place] [address]- 6620 Apr, [facility] [place] [facility] [address] [id number] [place] [address]- 2852 Apr, [facility] [place] [facility] [address] [id number] [place] [address] 2948 Mar, [facility] [place] [facility] [address] [id number] [place] [address]- 9026 Mar, [facility] [place] [facility] [address] [id number] [place] [address]- 1356 Mar, [facility] [place] [facility] [address] [id number] [place] [address]- 5732 Mar, [facility] [place] [facility] [address] [id number] [place] [address] Mar, [facility] [place] [facility] [address] [id number] [place] [address]- 3792 Mar, [facility] [place] [facility] [address] [id number] [place] [address]- 8401 Mar, [facility] [place] [facility] [address] [id number] [place] [address]- 0933 Mar, [facility] [place] [facility] [address] [id number] [place] [address]- 2601 Feb, [facility] [place] [facility] [address] [id number] [place] [address]- 1465 Feb, [facility] [place] [facility] [address] [id number] [place] [address]- 7072 Jan, [facility] [place] [facility] [address] [id number] [place] [address]- 1086 Jan, [facility] [place] [facility] [address] [id number] [place] [address]- 2898 Jan, [facility] [place] [facility] [address] [id number] [place] [address]- 4832 Jan, [facility] [place] [facility] [address] [id number] [place] [address]- 6498 Jan, [facility] [place] [facility] [address] [id number] [place] [address]- 5212 Jan, [facility] [place] [facility] [address] [id number] [place] [address]- 0596 Dec, [facility] [place] [facility] [address] [id number] [place] [address]- 5533 Dec, [facility] [place] [facility] [address] [id number] [place] [address]- 2741 Dec, [facility] [place] [facility] [address] [id number] [place] [address]- 3509 Dec, [facility] [place] [facility] [address] [id number] [place] [address]- 7056 Nov, [facility] [place] [facility] [address] [id number] [place] [address]- 8162 Nov, [facility] [place] [facility] [address] [id number] [place] [address]- 2544 Nov, [facility] [place] [facility] [address] [id number] [place] [address]- 3259 Nov, [facility] [place] [facility] [address] [id number] [place] [address]- 1990 Nov, [facility] [place] [facility] [address] [id number] [place] [address]- 2916 Nov, [facility] [place] [facility] [address] [id number] [place] [address]- 4240 Nov, [facility] [place] [facility] [address] [id number] [place] [address]- 0527 Nov, [facility] [place] [facility] [address] [id number] [place] [address]- 3658 Nov, [facility] [place] [facility] [address] [id number] [place] [address]- 4320 Nov, [facility] [place] [facility] [address] [id number] [place] [address]- 2079 Nov, [facility] [place] [facility] [address] [id number] [place] [address]- 6784 Nov, [facility] [place] [facility] [address] [id number] [place] [address]- 4395 October, [facility] [place] [facility] [address] [id number] [place] [address]- 0161 October, [facility] [place] [facility] [address] [id number] [place] [address]- 1023 October, [facility] [place] [facility] [address] [id number] [place] [address]- 3676 October, [facility] [place] [facility] [address] [id number] [place] [address]- 9151 October, [facility] [place] [facility] [address] [id number] [place] [address]- 8929 October, [facility] [place] [facility] [address] [id number] [place] [address]- 2451 October, [facility] [place] [facility] [address] [id number] [place] [address]- 8330 October, [facility] [place] [facility] [address] [id number] [place] [address]- 8404 October, [facility] [place] [facility] [address] [id number] [place] [address]- 4426 Sep, [facility] [place] [facility] [address] [id number] [place] [address]- 4611 Sep, [facility] [place] [facility] [address] [id number] [place] [address]- 3942 Sep, [facility] [place] [facility] [address] [id number] [place] [address]- 3782 Sep, [facility] [place] [facility] [address] [id number] [place] [address]- 3124 Sep, [facility] [place] [facility] [address] [id number] [place] [address]- 0344 Sep, [facility] [place] [facility] [address] [id number] [place] [address]- 9228 Aug, [facility] [place] [facility] [address] [id number] [place] [address]- 9025 Aug, [facility] [place] [facility] [address] [id number] [place] [address]- 2261 Aug, [facility] [place] [facility] [address] [id number] [place] [address]- 5267 Aug, [facility] [place] [facility] [address] [id number] [place] [address]- 9606 Aug, [facility] [place] [facility] [address] [id number] [place] [address]- 2623 Aug, [facility] [place] [facility] [address] [id number] [place] [address]- 9638 Aug, [facility] [place] [facility] [address] [id number] [place] [address]- 6046 Aug, [facility] [place] [facility] [address] [id number] [place] [address]- 1046 Aug, [facility] [place] [facility] [address] [id number] [place] [address]- 0095 Aug, [facility] [place] [facility] [address] [id number] [place] [address]- 4891 Jul, [facility] [place] [facility] [address] [id number] [place] [address]- 7258 Jul, [facility] [place] [facility] [address] [id number] [place] [address]- 2821 Jun, [facility] [place] [facility] [address] [id number] [place] [address]- 0959 Jun, [facility] [place] [facility] [address] [id number] [place] [address]- 0632 Jun, [facility] [place] [facility] [address] [id number] [place] [address]- 2036 Jun, [facility] [place] [facility] [address] [id number] [place] [address]- 9186 Jun, [facility] [address] [id number] [place] [address]- 3024 Jun, [facility] [place] [facility] [address] [id number] [place] [address]- 0164 Jun, [facility] [place] [facility] [address] [id number] [place] [address]- 8457 Jun, [facility] [place] [facility] [address] [id number] [place] [address]- 8483 May, [facility] [place] [facility] [address] [id number] [place] [address]- 1705 May, [facility] [place] [facility] [address] [id number] [place] [address]- 6034 May, [facility] [place] [facility] [address] [id number] [place] [address]- 9744 May, [facility] [place] [facility] [address] [id number] [place] [address]- 9799 May, [facility] [place] [facility] [address] [id number] [place] [address]- 1003 May, [facility] [place] [facility] [address] [id number] [place] [address]- 2935 May, [facility] [place] [facility] [address] [id number] [place] [address]- 6899 May, [facility] [place] [facility] [address] [id number] [place] [address]- 1337 May, [facility] [place] [facility] [address] [id number] [place] [address]- 4200 Apr, [facility] [place] [facility] [address] [id number] [place] [address]- 4850 Apr, [facility] [place] [facility] [address] [id number] [place] [address]- 4911 Apr, [facility] [place] [facility] [address] [id number] [place] [address]- 3097 Apr, 2012 [facility] [place] [facility] [address] [id number] [place] [address]- 9079 30 Mar, 2012 [facility] [place] [facility] [address] [id number] [place] [address]- 3352 30 Mar, 2012 [facility] [place] [facility] [address] [id number] [place] [address]- 2877 30 Mar, 2012 [facility] [place] [facility] [address] [id number] [place] [address]- 5458 30 Mar, 2012 [facility] [place] [facility] [address] [id number] [place] [address]- 7733 30 Mar, 2012 [facility] [place] [facility] [address] [id number] [place] [address]- 0513 30 Mar, 2012 [facility] [place] [facility] [address] [id number] [place] [address]- 3891 Mar, 2012 [facility] [place] [facility] [address] [id number] [place] [address]- 7138 Mar, 2012 [facility] [place] [facility] [address] [id number] [place] [address]- 1139 Mar, 2012 [facility] [place] [facility] [address] [id number], [place] [address]- 5884 Mar, 2012 [facility] [place] [facility] [address] [id number] [place] [address]- 7209 18 Mar, 2012 [facility] [place] [facility] [address] [id number], [place] [address]- 0858 Mar, 2012 [facility] [place] [facility] [address] [id number] [place] [address]- 1960 Mar, 2012 [facility] [place] [facility] [address] [id number], [place] [address]- 1309 Mar, 2012 [facility] [place] [facility] [address] [id number], [place] [address]- 1982 Mar, 2012 [facility] [place] [facility] [address] [id number] [place] [address]- 7040 18 Mar, 2012 [facility] [place] [facility] [address] [id number] [place] [address]- 5652 17 Mar, 2012 [facility] [place] [facility] [address] [id number] [place] [address]- 9770 17 Mar, 2012 [facility] [place] [facility] [address] [id number] [place] [address]- 0258 15 Mar, 2012 [facility] [place] [facility] [address] [id number] [place] [address]- 5002 15 Mar, 2012 [facility] [place] [facility] [address] [id number] [place] [address]- 5753 14 Mar, 2012 [facility] [place] [facility] [address] [id number] [place] [address]- 7910 14 Mar, 2012 [facility] [place] [facility] [address] [id number] [place] [address]- 7210 14 Mar, 2012 [facility] [place] [facility] [address] [id number] [place] [address]- 9555 14 Mar, 2012 [facility] [place] [facility] [address] [id number] [place] [address]- 5411 12 Mar, 2012 [facility] [place] [facility] [address] [id number] [place] [address]- 2101 11 Mar, 2012 [facility] [place] [facility] [address] [id number] [place] [address]- 7809 11 Mar, 2012 [facility] [place] [facility] [address] [id number] [place] [address]- 6221 10 Mar, 2012 [facility] [place] [facility] [address] [id number] [place] [address]- 3869 10 Mar, 2012 [facility] [place] [facility] [address] [id number] [place] [address]- 1466 10 Mar, 2012 [facility] [place] [facility] [address] [id number] [place] [address]- 3494 Mar, [facility] [place] [facility] [address] [id number] [place] [address]- 2613 Mar, [facility] [place] [facility] [address] [id number] [place] [address]- 8338 Mar, [facility] [place] [facility] [address] [id number] [place] [address]- 5342 Feb, [facility] [place] [facility] [address] [id number] [place] [address]- 0631 Feb, [facility] [place] [facility] [address] [id number] [place] [address]- 4714 Feb, [facility] [place] [facility] [address] [id number] [place] [address]- 9666 Feb, [facility] [place] [facility] [address] [id number] [place] [address]- 9543 Jan, [facility] [place] [facility] [address] [id number] [place] [address]- 4789 Jan, [facility] [place] [facility] [address] [id number] [place] [address]- 6944 Jan, [facility] [place] [facility] [address] [id number] [place] [address]- 6811 Jan, [facility] [place] [facility] [address] [id number] [place] [address]- 5976 Jan, [facility] [place] [facility] [address] [id number] [place] [address]- 4360 Jan, [facility] [place] [facility] [address] [id number] [place] [address]- 4899 Dec, [facility] [place] [facility] [address] [id number] [place] [address]- 5726 Dec, [facility] [place] [facility] [address] [id number] [place] [address]- 5060 Dec, [facility] [place] [facility] [address] [id number] [place] [address]- 0479 Dec, [facility] [address] [id number] [place] [address]- 7231 Dec, [facility] [address] [id number] [place] [address]- 4844 Dec, [facility] [address] [id number] [place] [address]- 5822 Dec, [facility] [address] [id number] [place] [address]- 4532 Dec, [facility] [address] [id number] [place] [address]- 5745 Dec, [facility] [address] [id number] [place] [address]- 1066 Dec, [facility] [address] [id number] [place] [address]- 4269 Dec, [facility] [address] [id number] [place] [address]- 2263 October, [facility] [address] [id number] [place] [address]- 7706 October, [facility] [address] [id number] [place] [address]- 5295 October, [facility] [address] [id number] [place] [address]- 1907 October, [facility] [address] [id number] [place] [address]- 3714 Sep, [facility] [address] [id number] [place] [address]- 8255 Sep, [facility] [address] [id number] [place] [address]- 2365 Sep, [facility] [address] [id number] [place] [address]- 4620 Sep, [facility] [address] [id number] [address]- 4604 Sep, [facility] [address] [id number], [place] [address]- 6718 Sep, [facility] [address] [id number], [place] [address]- 5550 Sep, [facility] [address] [id number], [place] [address]- 2336 Sep, [facility] [address] [id number], [place] [address]- 8894 Sep, [facility] [address] [id number], [place] [address]- 6683 Sep, [facility] [address] [id number], [place] [address]- 8073 Sep, IMMUNIZATIONS No Known Immunizations SOCIAL HISTORY Never Assessed REASON FOR VISIT patient PLAN OF CARE VITAL SIGNS MEDICATIONS Unknown Medications RESULTS No Results PROCEDURES No Known procedures [...] problems 09/2015 Hospitalization History Acute dyspnea, muscle cramps--[facility] 03/04/16 Hospitalization History RLE Cellulitis, Hypokalemia, anemia-[facility] 09/29/15 Hospitalization History Lower edema 09/2016 Hospitalization History Received stitches ER 10/2016
--- OUTSIDE RECORDS SUMMARY | 2018-03-19 23:48 | XMS REPORT ---
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 Name Role Phone JAN HERNANDEZ Unavailable PROBLEMS Type Condition ICD9-CM Code ETH00-HQ Code Onset Dates Condition Status SNOMED Code Problem Prediabetes R73.09 Active 6688819 Problem Arthritis M19.90 Active 4447867 Problem Hypokalemia E87.6 Active 66727233 Problem Coronary artery disease involving craig coronary artery of craig heart without angina pectoris I25.10 Active 1123192006324 Problem Skin cancer of face C44.300 Active 271508462 Problem Morbid (severe) obesity due to excess calories E66.01 Active 331380227 Problem Body mass index (BMI) of 45.0-49.9 in adult Z68.42 Active 312346757 Problem Venous insufficiency I87.2 Active 87747248 Problem 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 Active 672556406 Problem Anemia D64.9 Active 992459324 Problem Cor pulmonale I27.81 Active 86729743 Problem Back pain M54.9 Active 226602332 Problem Restrictive lung disease J98.4 Active 65122747 Problem Hypothyroidism E03.9 Active 61538168 ALLERGIES No Information ENCOUNTERS Encounter Location Date Diagnosis [facility] [id number] [address] Feb, Arthritis M19.90 [facility] [id number] [address] 64[address] Jan, Arthritis M19.90 [facility] [address] [address] Jan, Back pain M54.9 and Arthritis M19.90 [facility] [id number] [address] 2866 Jan, [facility] [address] [facility] [id number] [address] Jan, Back pain M54.9 [facility] [id number] [place] [address] 09504- 8842 Jan, Arthritis M19.90 [facility] [id number] [place] [address] 64975- 8888 Jan, Back pain M54.9 [facility] [id number] [place] [address] 45497- 7106 Jan, [facility] [id number] [place] [address] 49228- 6417 Jan, Back pain M54.9 [facility] [id number] [place] [address] 83037- 9129 Dec, Ingrowing nail with infection L60.0 and Onychomycosis B35.1 [facility] [id number] [place] [address] 97967- 0891 Dec, Arthritis M19.90 [facility] [id number] [place] [address] 50496- 9166 Dec, Ingrowing nail L60.0 [facility] [id number] [place] [address] 02059- 3648 Dec, Back pain M54.9 [facility] [id number] [address] Dec, [facility] [address] [facility] [id number] [address] 9979 Dec, Back pain M54.9 [facility] [id number] [place] [address] 73561- 7027 Nov, Arthritis M19.90 [facility] [id number] [address]- 1695 Nov, [facility] [id number] [place] [address] 58137- 5833 Nov, Arthritis M19.90 ; Anemia D64.9 ; Restrictive lung disease J98.4 ; Weakness R53.1 and BMI 50.0-59.9, adult Z68.43 [facility] [id number] [place] [address] 70953- 2677 Nov, Arthritis M19.90 [facility] [id number] [place] [address] 88472- 0533 Nov, Back pain M54.9 [facility] [address] 8[address]14- 8743 October, Back pain M54.9 [facility] [id number] [place] [address] 42323- 9135 October, Back pain M54.9 [facility] [id number] [place] [address] 04460- 2834 Sep, Back pain M54.9 [facility] [id number] [place] [address] 22128- 4428 Sep, Back pain M54.9 [facility] [id number] [place] [address] 42194 -6498 Sep, [facility] [id number] [place] [address] 13127 -5895 Sep, [facility] [id number] [place] [address] 28951 -3873 Sep, Swelling of right lower extremity M79.89 and Cellulitis of right lower extremity L03.115 [facility] [id number] [place] [address] 64370- 9006 Aug, Back pain M54.9 [facility] [id number] [place] [address] 89426- 3005 15 Aug, 2017 Back pain M54.9 [facility] [id number] [place] [address] 57943- 2015 Aug, [place] [id number] [place] [address] 56792- 8802 Aug, Cellulitis of right lower extremity L03.115 ; Ventral hernia without obstruction or gangrene K43.9 and BMI 50.0-59.9, adult Z68.43 [facility] [id number] [place] [address] 63581- 3564 28 Jul, 2017 Back pain M54.9 [facility] [id number] [place] [address] 00315- 2369 Jul, long-term (current) 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 Z79.891 ; Arthritis M19.90 ; Back pain M54.9 ; Prediabetes R73.09 ; Hypothyroidism E03.9 ; Coronary artery disease involving craig coronary artery of craig heart without angina pectoris I25.10 and Anemia D64.9 [facility] [id number] [place] [address] 12426- 0472 27 Jul, 2017 long-term (current) 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 Z79.891 ; Back pain M54.9 ; Arthritis M19.90 ; Prediabetes R73.09 ; Hypothyroidism E03.9 ; Coronary artery disease involving craig coronary artery of craig heart without angina pectoris I25.10 ; Anemia D64.9 and BMI 45.0-49.9, adult Z68.42 [facility] [id number] [place] [address] 68785- 6216 15 Jul, 2017 Back pain M54.9 [facility] [id number] [place] [address] 44535- 1689 05 Jul, 2017 Back pain M54.9 [facility] [id number] [place] [address] 07434- 7913 Jun, Back pain M54.9 [facility] [id number] [place] [address] 29285- 9983 Jun, Back pain M54.9 [facility] [id number] [place] [address] 80753 -1710 May, Skin cancer of face C44.300 and BMI 45.0-49.9, adult Z68.42 [facility] [id number] [place] [address] 79815- 0209 May, [facility] [address] 93914- 4431 May, Back pain M54.9 [facility] [id number] [place] [address] 68810- 7918 May, Back pain M54.9 [facility] [address] 21470- 6152 May, Back pain M54.9 [facility] [id number] [place] [address] 19618- 0574 Apr, Back pain M54.9 [facility] [id number] [place] [address] 15780- 4451 Apr, Back pain M54.9 [facility] [address] 23757- 8671 Mar, Back pain M54.9 [facility] [id number] [place] [address] 32243- 6035 Mar, Anemia D64.9 ; Encounter for immunization Z23 ; Arthritis M19.90 and Right inguinal hernia K40.90 [facility] [id number] [place] [address] 20517- 3155 Mar, Back pain M54.9 [facility] [id number] [place] [address] 55520- 3197 22 Feb, 2017 Back pain M54.9 [facility] [id number] [place] [address] 09202- 6046 13 Feb, 2017 Back pain M54.9 [facility] [address] [place] [address]- 8459 Jan, Back pain M54.9 [facility] [address] [facility] [id number] [place] [address] 83456 2546 Jan, Back pain M54.9 [facility] [id number] [place] [address] 06673 2546 Jan, [facility] [id number] [place] [address] 54401 2546 Jan, Back pain M54.9 [facility] [id number] [place] [address] 29492 2546 Dec, Back pain M54.9 [facility] [id number] [place] [address] 95359- 7065 Dec, Back pain M54.9 [facility] [id number] [place] [address] 88452- 0066 Dec, [facility] [id number] [place] [address] 42811 2544 Nov, Hypokalemia E87.6 [facility] [id number] [place] [address] 94074 2546 Nov, Back pain M54.9 [facility] [id number] [place] [address] 69277 2546 Nov, [facility] [id number] [place] [address] 90093 2546 Nov, Arthritis M19.90 [facility] [id number] [place] [address] 23017 2546 Nov, Back pain M54.9 [facility] [id number] [place] [address] 98433 2546 Nov, Generalized edema R60.1 [facility] [id number] [place] [address] 05948 2546 Nov, Back pain M54.9 [address] [id number] [place] [address] 46770- 4490 07 Nov, 2016 Pain in right knee M25.561 [facility] [id number] [place] [address] 18192- 1505 05 Nov, 2016 Encounter for removal of sutures Z48.02 and Pain in right knee M25.561 [facility] [place] [address] 23181 -0556 Nov, Abrasion of right foot, subsequent encounter S90.811D [facility] [place] [id number] [place] [address] 48851 -8635 October, Toe abrasion, right, initial encounter S90.414A [place] [facility] [id number] [place] [address] 61248- 9426 October, [place] [address] 35983- 3906 October, Back pain M54.9 [facility] [id number] [place] [address] 09755- 9688 October, Venous insufficiency I87.2 [facility] [id number] [place] [address] 46737- 4321 October, Pain in right knee M25.561 [facility] [id number] [place] [address] 82622- 6329 Sep, Back pain M54.9 [facility] [id number] [place] [address] 56250- 2161 Sep, Venous insufficiency I87.2 [facility] [address] [id number] Sep, [facility] [id number] [place] [address] 77796 -8858 Sep, Leg edema, right R60.0 and Cellulitis of right lower extremity L03.115 [place] [address] [place] [address]- 3901 14 Sep, 2016 Pedal edema R60.0 [facility] [address] 93093- 2093 04 Sep, 2016 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 ; Pain in right knee M25.561 and Arthritis M19.90 [place] [facility] [address] 98915- 8481 Aug, Back pain M54.9 [facility] [address] 78309- 8617 Aug, Back pain M54.9 [place] [address] 88707- 1616 Aug, [place] [address] 86971- 8713 Aug, Type 2 diabetes mellitus without complication E11.9 ; Restrictive lung disease J98.4 ; Arthritis M19.90 ; Back pain M54.9 ; Body mass index (BMI) of 45.0-49.9 in adult Z68.42 and Morbid (severe) obesity due to excess calories E66.01 [facility] [id number] [place] [address] 04831- 9383 Aug, Back pain M54.9 [facility] [id number] [place] [address] 37297- 8909 Aug, Back pain M54.9 [facility] [id number] [place] [address] 95339- 3108 Jul, [place] [facility] [id number] [place] [address] 18131- 7589 Jul, Back pain M54.9 [facility] [id number] [place] [address] 67971- 8981 Jul, Back pain M54.9 [facility] [address] 71337- 9361 Jun, Back pain M54.9 [facility] [address] [facility] [id number] [place] [address] 86490 2546 Jun, Back pain M54.9 [facility] [address] [facility] [id number] [place] [address] 00067 2546 May, Back pain M54.9 [facility] [address] [facility] [id number] [place] [address] 59307 2546 16 May, 2016 Back pain M54.9 [facility] [address] [facility] [id number] [place] [address] 01708 2546 May, Back pain M54.9 [facility] [address] [facility] [id number] [place] [address] 67973 2546 May, Back pain M54.9 [facility] [address] [facility] [id number] [place] [address] 28229 2546 May, [facility] [address] [facility] [id number] [place] [address] 18440 2547 May, Back pain M54.9 and Pain in right knee M25.561 [facility] [address] [facility] [id number] [place] [address] 61003 2544 Apr, [facility] [id number] [place] [address] 28095- 8670 Apr, Type 2 diabetes mellitus without complication E11.9 ; Pain in right knee M25.561 and Pain in left knee M25.562 [facility] [address] [facility] [id number] [address] 2546 Mar, [facility] [address] [facility] [id number] [place] [address] 88228 2546 Mar, [facility] [address] [facility] [id number] [address]- 2546 Mar, [facility] [address] [facility] [id number] [place] [address] 34939- 0452 Mar, Restrictive lung disease J98.4 ; Anemia D64.9 and Cor pulmonale I27.81 [facility] [id number] [place] [address], [place] [address]- 8187 17 Mar, 2016 [facility] [address] [facility] [id number] [place] [address] 17254- 5145 14 Mar, 2016 [facility] [address] [facility] [id number] [place] [address] 78347- 9115 Mar, [facility] [address] [facility] [id number] [place] [address] 52831- 0636 30 Feb, 2016 [facility] [id number] [place] [address], [place] [address]- 5664 29 Feb, 2016 [facility] [id number] [place] [address] 78403- 3315 28 Feb, 2016 [facility] [id number] [place] [address] 10781- 5737 27 Feb, 2016 Restrictive lung disease J98.4 [facility] [address] [facility] [id number] [place] [address], [place] [address]- 1380 23 Feb, 2016 [facility] [address] [facility] [id number] [address] -0689 22 Feb, 2016 [facility] [address] [address]- 9107 16 Feb, 2016 [facility] [id number] [address]- 6716 Jan, [facility] [address] [facility] [id number], [place] [address]- 8390 Jan, [facility] [address] [facility] [id number] [place] [address] 08749- 8304 Jan, [facility] [id number] [address]- 1633 Jan, [facility] [id number] [place] [address] 05419- 8060 Jan, Restrictive lung disease J98.4 ; Anemia D64.9 and Cor pulmonale I27.81 [facility] [id number] [place] [address] 62847- 1459 Dec, [facility] [address] 25294- 6970 Dec, [facility] [address] 51911- 7128 Nov, Arthritis M19.90 and Hypokalemia E87.6 [facility] [address] 15427- 7562 Nov, Back pain M54.9 [facility] [id number] [place] [address] 80198- 6836 October, Back pain M54.9 [facility] [address] 56902- 6676 October, Back pain M54.9 [facility] [id number] [place] [address] 00647- 8674 Sep, Scabies exposure Z20.89 [facility] [id number] [place] [address] 62002- 3928 Sep, Restrictive lung disease J98.4 [facility] [id number] [place] [address] 67685- 2067 Sep, Back pain M54.9 [facility] [id number] [place] [address] 50967- 3619 Sep, Restrictive lung disease J98.4 [facility] [id number] [place] [address] 17465- 9296 Aug, [facility] [id number] [place] [address] 46459- 9502 Aug, [facility] [address] 56447- 7940 Aug, [facility] [address] [place] [address] 91854- 3864 Aug, [facility] [id number] [place] [address] 38320- 1137 Aug, Back pain M54.9 [facility] [id number] [place] [address] 74402- 5912 Jul, Anemia D64.9 and Prediabetes R73.09 [facility] [id number] [place] [address] 81733- 4404 Jul, Back pain M54.9 [facility] [id number] [place] [address] 00336- 7552 Jul, Back pain M54.9 [facility] [id number] [place] [address] 75975- 3894 Jul, [facility] [id number] [place] [address] 93492- 4588 05 Jul, 2015 Bronchitis J40 and Anemia D64.9 [facility] [id number] [place] [address] 78721- 1945 Jun, [facility] [address] [place] [address] 11236- 6911 Jun, [facility] [id number] [place] [address] 09787- 3449 Jun, Bronchitis J40 and Anemia D64.9 [facility] [id number] [place] [address] 85312- 2964 Jun, [facility] [id number] [place] [address] 79864- 8532 Jun, Back pain M54.9 [facility] [address] [place] [address] 08558- 5314 Jun, Anemia D64.9 [facility] [address] [place] [address] 39285- 4335 Jun, Restrictive lung disease J98.4 ; Anemia D64.9 ; Hypothyroidism E03.9 ; Cor pulmonale I27.81 and Back pain M54.9 [facility] [id number] [place] [address] 11178- 8619 May, [facility] [address] 72006- 9564 Apr, Anemia D64.9 ; Encounter for immunization Z23 and Restrictive lung disease J98.4 [facility] [address] 91752- 5957 Apr, [facility] [id number] [place] [address] 80853- 5304 Mar, [facility] [address] 91540- 4148 Mar, Iron deficiency anemia D50.9 [facility] [id number] [place] [address] 17797- 6520 Mar, [facility] [id number] [place] [address] 54173- 9120 Mar, [facility] [id number] [place] [address] 60238- 5268 Mar, Anemia D64.9 [facility] [id number] [place] [address] 97451- 9976 Mar, [facility] [id number] [place] [address] 71890- 4149 Mar, Anemia D64.9 [facility] [id number] [place] [address] 52636- 4589 Mar, Restrictive lung disease J98.4 and Anemia D64.9 [facility] [id number] [place] [address] 43446- 0449 Mar, [facility] [id number] [place] [address] 99642- 8207 Mar, Anemia D64.9 [facility] [id number] [place] [address] 54070- 6585 Mar, Anemia D64.9 [facility] [id number] [place] [address] 49278- 3767 Mar, [facility] [id number] [place] [address] 81995- 4424 Mar, Diabetes mellitus E11.9 ; Bronchitis J40 and Anemia D64.9 [facility] [id number] [place] [address] 43346- 7683 Feb, [facility] [id number] [place] [address] 58715- 4166 Feb, [facility] [address] [address]- [address] Feb, [facility] [id number] [place] [address] 54285- 3938 Feb, [facility] [id number] [place] [address] 68467- 5485 Jan, [facility] [id number] [place] [address] 53309- 5476 Jan, [facility] [id number] [place] [address] 21250- 9146 Dec, Venous insufficiency 459.81 [facility] [id number] [place] [address] 21812- 1237 Dec, [facility] [id number] [place] [address] 54284- 3644 Dec, [facility] [id number] [place] [address] 44764- 9965 Dec, Coronary atherosclerosis of unspecified type of vessel, craig or graft 414.00 ; Unspecified anemia 285.9 and Generalized osteoarthrosis , unspecified site 715.00 [facility] [id number] [address] Nov, [facility] [id number] Nov, [facility] [id number] [address] 8714 Nov, [facility] [id number] [place] [address] 77570- 8917 October, [facility] [id number] [address] October, Acute bronchitis 466.0 and Shortness of breath 786.05 [facility] [id number] [address] Sep, [facility] [id number] [place] [address] 95980- 5799 Sep, [facility] [id number] [address] Aug, [facility] [id number] [address] 8908 Aug, [facility] [id number] [address] 4[address] Jul, [facility] [id number] [address] 1739 Jul, [facility] [id number] [address] 2277 Jul, [facility] [id number] [address] 8531 Jul, [facility] [id number] [address]- 6081 Jun, [facility] [id number] [address]- 5159 Jun, [facility] [place] [facility] [address] [id number] [place] [address]- 2210 Jun, [facility] [place] [facility] [address] [id number] [place] [address]- 8147 Jun, [facility] [place] [facility] [address] [id number] [place] [address]- 0821 Jun, [facility] [place] [facility] [address] [id number] [place] [address]- 9810 Jun, [facility] [place] [facility] [address] [id number] [place] [address]- 6693 May, [facility] [place] [facility] [address] [id number] [place] [address]- 4256 May, [facility] [place] [facility] [address] [id number] [place] [address]- 9897 May, [facility] [place] [facility] [address] [id number] [place] [address]- 3893 May, [facility] [place] [facility] [address] [id number] [place] [address]- 4819 Apr, [facility] [place] [facility] [address] [id number] [place] [address]- 6770 Apr, [facility] [place] [facility] [address] [id number] [address]- [address] Apr, [facility] [place] [facility] [address] [id number] [address] Apr, [facility] [place] [facility] [address] [id number] [place] [address] Apr, [facility] [place] [facility] [address] [id number] [place] [address] Apr, [facility] [place] [facility] [address] [id number] [place] [address] Mar, [facility] [place] [facility] [address] [id number] [place] [address]- 1042 Mar, [facility] [place] [facility] [address] [id number] [place] [address]- 7[address] Mar, [facility] [place] [facility] [address] [id number] [place] [address]- 4[address] Mar, [facility] [place] [facility] [address] [id number] [place] [address] Mar, [facility] [place] [facility] [address] [id number] [place] [address] 6357 Mar, [facility] [place] [facility] [address] [id number] [place] [address]- 3962 Mar, [facility] [place] [facility] [address] [id number] [place] [address]- 4984 Mar, [facility] [place] [facility] [address] [id number] [place] [address] 07[address] Feb, [facility] [place] [facility] [address] [id number] [place] [address]- 3928 Feb, [facility] [place] [facility] [address] [id number] [place] [address]- 2423 Jan, [facility] [place] [facility] [address] [id number] [place] [address]- 1123 Jan, [facility] [place] [facility] [address] [id number] [place] [address]- 2712 Jan, [facility] [place] [facility] [address] [id number] [place] [address]- 1809 Jan, [facility] [place] [facility] [address] [id number] [place] [address]- 6180 Jan, [facility] [place] [facility] [address] [id number] [place] [address]- 2926 Jan, [facility] [place] [facility] [address] [id number] [place] [address]- 7780 Dec, [facility] [place] [facility] [address] [id number] [place] [address]- 7313 Dec, [facility] [place] [facility] [address] [id number] [place] [address]- 2821 Dec, [facility] [place] [facility] [address] [id number] [place] [address]- 7934 Dec, [facility] [place] [facility] [address] [id number] [place] [address]- 0500 Nov, [facility] [place] [facility] [address] [id number] [place] [address]- 9305 Nov, [facility] [place] [facility] [address] [id number] [place] [address]- 6256 Nov, [facility] [place] [facility] [address] [id number] [place] [address]- 6021 Nov, [facility] [place] [facility] [address] [id number] [place] [address]- 9658 Nov, [facility] [place] [facility] [address] [id number] [place] [address]- 0477 Nov, [facility] [place] [facility] [address] [id number] [place] [address]- 2341 Nov, [facility] [place] [facility] [address] [id number] [place] [address]- 3202 Nov, [facility] [place] [facility] [address] [id number] [place] [address]- 9872 Nov, [facility] [place] [facility] [address] [id number] [place] [address]- 5659 Nov, [facility] [place] [facility] [address] [id number] [place] [address]- 5006 Nov, [facility] [place] [facility] [address] [id number] [place] [address]- 2961 Nov, [facility] [place] [facility] [address] [id number] [place] [address]- 9151 October, [facility] [place] [facility] [address] [id number] [place] [address]- 5411 October, [facility] [place] [facility] [address] [id number] [place] [address]- 1387 October, [facility] [place] [facility] [address] [id number] [place] [address]- 9905 October, [facility] [place] [facility] [address] [id number] [place] [address]- 4693 October, [facility] [place] [facility] [address] [id number] [place] [address]- 9375 October, [facility] [place] [facility] [address] [id number] [place] [address]- 4994 October, [facility] [place] [facility] [address] [id number] [place] [address]- 4282 October, [facility] [place] [facility] [address] [id number] [place] [address]- 4926 October, [facility] [place] [facility] [address] [id number] [place] [address]- 4754 Sep, [facility] [place] [facility] [address] [id number] [place] [address]- 3887 Sep, [facility] [place] [facility] [address] [id number] [place] [address]- 3880 Sep, [facility] [place] [facility] [address] [id number] [place] [address]- 5218 Sep, [facility] [place] [facility] [address] [id number] [place] [address]- 5893 Sep, [facility] [place] [facility] [address] [id number] [place] [address]- 0636 Sep, [facility] [place] [facility] [address] [id number] [place] [address]- 2361 Aug, [facility] [place] [facility] [address] [id number] [place] [address]- 6682 Aug, [facility] [place] [facility] [address] [id number] [place] [address]- 7396 Aug, [facility] [place] [facility] [address] [id number] [place] [address]- 7259 Aug, [facility] [place] [facility] [address] [id number] [place] [address]- 3064 Aug, [facility] [place] [facility] [address] [id number] [place] [address]- 3145 Aug, [facility] [place] [facility] [address] [id number] [place] [address]- 3197 Aug, [facility] [place] [facility] [address] [id number] [place] [address]- 0526 Aug, [facility] [place] [facility] [address] [id number] [place] [address]- 0167 Aug, [facility] [place] [facility] [address] [id number] [place] [address]- 3178 Aug, [facility] [place] [facility] [address] [id number] [place] [address]- 9278 Jul, [facility] [place] [facility] [address] [id number] [place] [address]- 4309 Jul, [facility] [place] [facility] [address] [id number] [place] [address]- 9770 Jun, [facility] [place] [facility] [address] [id number] [place] [address]- 6138 Jun, [facility] [place] [facility] [address] [id number] [place] [address]- 1389 Jun, [facility] [place] [facility] [address] [id number] [place] [address]- 9227 Jun, [facility] [place] [facility] [address] [id number] [place] [address]- 7895 Jun, [facility] [address] [id number] [place] [address]- 1429 Jun, [facility] [place] [facility] [address] [id number] [place] [address]- 7453 Jun, [facility] [place] [facility] [address] [id number] [place] [address]- 6009 Jun, [facility] [place] [facility] [address] [id number] [place] [address]- 7789 May, [facility] [place] [facility] [address] [id number] [place] [address]- 2282 May, [facility] [place] [facility] [address] [id number] [place] [address]- 1958 May, [facility] [place] [facility] [address] [id number] [place] [address]- 8754 May, [facility] [place] [facility] [address] [id number] [place] [address]- 6324 May, [facility] [place] [facility] [address] [id number] [place] [address]- 0965 May, [facility] [place] [facility] [address] [id number] [place] [address]- 0857 May, [facility] [place] [facility] [address] [id number] [place] [address]- 9806 May, [facility] [place] [facility] [address] [id number] [place] [address]- 8116 May, [facility] [place] [facility] [address] [id number] [place] [address]- 7198 Apr, [facility] [place] [facility] [address] [id number] [place] [address]- 2820 Apr, [facility] [place] [facility] [address] [id number] [place] [address]- 3541 Apr, [facility] [place] [facility] [address] [id number] [place] [address]- 9764 Apr, 2012 [facility] [place] [facility] [address] [id number] [place] [address]- 0954 30 Mar, 2012 [facility] [place] [facility] [address] [id number] [place] [address]- 0576 30 Mar, 2012 [facility] [place] [facility] [address] [id number] [place] [address]- 7535 30 Mar, 2012 [facility] [place] [facility] [address] [id number] [place] [address]- 1089 30 Mar, 2012 [facility] [place] [facility] [address] [id number] [place] [address]- 6722 30 Mar, 2012 [facility] [place] [facility] [address] [id number] [place] [address]- 7831 30 Mar, 2012 [facility] [place] [facility] [address] [id number] [place] [address]- 7499 Mar, 2012 [facility] [place] [facility] [address] [id number] [place] [address]- 9627 Mar, 2012 [facility] [place] [facility] [address] [id number] [place] [address]- 2403 Mar, 2012 [facility] [place] [facility] [address] [id number] [address]- 5125 Mar, 2012 [facility] [place] [facility] [address] [id number] [place] [address]- 4844 18 Mar, 2012 [facility] [place] [facility] [address] [id number] [address]- 0712 Mar, 2012 [facility] [place] [facility] [address] [id number] [place] [address]- 3993 Mar, 2012 [facility] [place] [facility] [address] [id number], [place] [address]- 9834 Mar, 2012 [facility] [place] [facility] [address] [id number] [address]- 7054 Mar, 2012 [facility] [place] [facility] [address] [id number] [place] [address]- 8670 18 Mar, 2012 [facility] [place] [facility] [address] [id number] [place] [address]- 9024 17 Mar, 2012 [facility] [place] [facility] [address] [id number] [place] [address]- 6327 17 Mar, 2012 [facility] [place] [facility] [address] [id number] [place] [address]- 7380 15 Mar, 2012 [facility] [place] [facility] [address] [id number] [place] [address]- 6746 15 Mar, 2012 [facility] [place] [facility] [address] [id number] [place] [address]- 0614 14 Mar, 2012 [facility] [place] [facility] [address] [id number] [place] [address]- 1498 14 Mar, 2012 [facility] [place] [facility] [address] [id number] [place] [address]- 1584 14 Mar, 2012 [facility] [place] [facility] [address] [id number] [place] [address]- 9107 14 Mar, 2012 [facility] [place] [facility] [address] [id number] [place] [address]- 5565 12 Mar, 2012 [facility] [place] [facility] [address] [id number] [place] [address]- 1781 11 Mar, 2012 [facility] [place] [facility] [address] [id number] [place] [address]- 4487 11 Mar, 2012 [facility] [place] [facility] [address] [id number] [place] [address]- 4821 10 Mar, 2012 [facility] [place] [facility] [address] [id number] [place] [address]- 8404 10 Mar, 2012 [facility] [place] [facility] [address] [id number] [place] [address]- 2205 10 Mar, 2012 [facility] [place] [facility] [address] [id number] [place] [address]- 6668 Mar, [facility] [place] [facility] [address] [id number] [place] [address]- 2132 Mar, [facility] [place] [facility] [address] [id number] [place] [address]- 6700 Mar, [facility] [place] [facility] [address] [id number] [place] [address]- 9253 Feb, [facility] [place] [facility] [address] [id number] [place] [address]- 5802 Feb, [facility] [place] [facility] [address] [id number] [place] [address]- 4240 Feb, [facility] [place] [facility] [address] [id number] [place] [address]- 5126 Feb, [facility] [place] [facility] [address] [id number] [place] [address]- 7376 Jan, [facility] [place] [facility] [address] [id number] [place] [address]- 0482 Jan, [facility] [place] [facility] [address] [id number] [place] [address]- 4763 Jan, [facility] [place] [facility] [address] [id number] [place] [address]- 9099 Jan, [facility] [place] [facility] [address] [id number] [place] [address]- 4961 Jan, [facility] [place] [facility] [address] [id number] [place] [address]- 4384 Jan, [facility] [place] [facility] [address] [id number] [place] [address]- 9764 Dec, [facility] [place] [facility] [address] [id number] [place] [address]- 4755 Dec, [facility] [place] [facility] [address] [id number] [place] [address]- 4238 Dec, [facility] [place] [facility] [address] [id number] [place] [address]- 5023 Dec, [facility] [address] [id number] [place] [address]- 9605 Dec, [facility] [address] [id number] [place] [address]- 3727 Dec, [facility] [address] [id number] [place] [address]- 2527 Dec, [facility] [address] [id number] [place] [address]- 6107 Dec, [facility] [address] [id number] [place] [address]- 7638 Dec, [facility] [address] [id number] [place] [address]- 8257 Dec, [facility] [address] [id number] [place] [address]- 6902 Dec, [facility] [address] [id number] [place] [address]- 5586 October, [facility] [address] [id number] [place] [address]- 9086 October, [facility] [address] [id number] [place] [address]- 8084 October, [facility] [address] [id number] [place] [address]- 4308 October, [facility] [address] [id number] [place] [address]- 9335 Sep, [facility] [address] [id number] [place] [address]- 2570 Sep, [facility] [address] [id number] [place] [address]- 2735 Sep, [facility] [address] [id number] [place] [address]- 1822 Sep, [facility] [address] [id number] [address]- 5769 Sep, [facility] [address] [id number], [place] [address]- 6030 Sep, [facility] [address] [id number], [place] [address]- 1448 Sep, [facility] [id number], [place] [address]- 7874 Sep, [facility] [address] [id number], [place] [address]- 9246 Sep, [facility] [id number], [place] [address]- 2367 Sep, [facility] [address] [id number] [address]- 4318 Sep, IMMUNIZATIONS No Known Immunizations SOCIAL HISTORY Never Assessed REASON FOR VISIT Controlled Med Refill PLAN OF CARE VITAL SIGNS MEDICATIONS Medication Instructions Dosage Frequency Start Date End Date Duration Status Fentanyl 75 MCG/HR Transdermal every 72 hours 1 Patch [...] 03/04/16 Hospitalization History RLE Cellulitis, Hypokalemia, anemia-[facility] 4/18/16 Hospitalization History Lower edema 09/2016 Hospitalization History Received stitches ER 10/2016
--- OUTSIDE RECORDS SUMMARY | 2018-03-19 23:49 | XMS REPORT ---
Author Author JAN HERNANDEZ [facility] Address [address] [place] [address] Care Team Providers Care [employer] Name Role Phone JAN HERNANDEZ Unavailable PROBLEMS Type Condition ICD9-CM Code APS64-UE Code Onset Dates Condition Status SNOMED Code Problem Prediabetes R73.09 Active 9103208 Problem Arthritis M19.90 Active 1910943 Problem Hypokalemia E87.6 Active 79875960 Problem Coronary artery disease involving nisqually coronary artery of nisqually heart without angina pectoris I25.10 Active 8860917446008 Problem Skin cancer of face C44.300 Active 412770543 Problem Morbid (severe) obesity due to excess calories E66.01 Active 352347951 Problem Body mass index (BMI) of 45.0-49.9 in adult Z68.42 Active 544091798 Problem Venous insufficiency I87.2 Active 44123778 Problem 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 Active 812982721 Problem Anemia D64.9 Active 332925206 Problem Cor pulmonale I27.81 Active 01613506 Problem Back pain M54.9 Active 089620192 Problem Restrictive lung disease J98.4 Active 14733341 Problem Hypothyroidism E03.9 Active 95878824 ALLERGIES No Information ENCOUNTERS Encounter Location Date Diagnosis [facility] [id number] [address] Feb, Arthritis M19.90 [facility] [id number] [address] 66[address] Jan, Arthritis M19.90 [facility] [address] [address] 59[address] Jan, Back pain M54.9 and Arthritis M19.90 [facility] [id number] [address] 9338 Jan, [facility] [address] [facility] [id number] [address] 39[address] Jan, Back pain M54.9 [facility] [id number] [place] [address] 57928- 9329 Jan, Arthritis M19.90 [facility] [id number] [place] [address] 03830- 9740 Jan, Back pain M54.9 [facility] [id number] [place] [address] 14489- 0596 Jan, [facility] [id number] [place] [address] 90064- 3283 Jan, Back pain M54.9 [facility] [id number] [place] [address] 22755- 0596 Dec, Ingrowing nail with infection L60.0 and Onychomycosis B35.1 [facility] [id number] [place] [address] 16255- 2145 Dec, Arthritis M19.90 [facility] [id number] [place] [address] 30597- 4122 Dec, Ingrowing nail L60.0 [facility] [id number] [place] [address] 66070- 2148 Dec, Back pain M54.9 [facility] [id number] [address] Dec, [facility] [address] [facility] [id number] [address]- 8734 Dec, Back pain M54.9 [facility] [id number] [place] [address] 32133- 4327 Nov, Arthritis M19.90 [facility] [id number] [address]- 6501 Nov, [facility] [id number] [place] [address] 25263- 2404 Nov, Arthritis M19.90 ; Anemia D64.9 ; Restrictive lung disease J98.4 ; Weakness R53.1 and BMI 50.0-59.9, adult Z68.43 [facility] [id number] [place] [address] 91446- 1886 Nov, Arthritis M19.90 [facility] [id number] [place] [address] 37300- 6262 Nov, Back pain M54.9 [facility] [address] 21295- 3909 October, Back pain M54.9 [facility] [id number] [place] [address] 95615- 3909 October, Back pain M54.9 [facility] [id number] [place] [address] 59119- 7557 Sep, Back pain M54.9 [facility] [id number] [place] [address] 13567- 0716 Sep, Back pain M54.9 [facility] [id number] [place] [address] 94792 -7454 Sep, [facility] [id number] [place] [address] 01805 -0400 Sep, [facility] [id number] [place] [address] 91011 -3650 Sep, Swelling of right lower extremity M79.89 and Cellulitis of right lower extremity L03.115 [facility] [id number] [place] [address] 78377- 7738 Aug, Back pain M54.9 [facility] [id number] [place] [address] 94190- 5137 15 Aug, 2017 Back pain M54.9 [facility] [id number] [place] [address] 83571- 9423 Aug, [place] [id number] [place] [address] 81790- 0113 Aug, Cellulitis of right lower extremity L03.115 ; Ventral hernia without obstruction or gangrene K43.9 and BMI 50.0-59.9, adult Z68.43 [facility] [id number] [place] [address] 17531- 6887 28 Jul, 2017 Back pain M54.9 [facility] [id number] [place] [address] 53774- 6923 Jul, skilled nursing (current) 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 Z79.891 ; Arthritis M19.90 ; Back pain M54.9 ; Prediabetes R73.09 ; Hypothyroidism E03.9 ; Coronary artery disease involving nisqually coronary artery of nisqually heart without angina pectoris I25.10 and Anemia D64.9 [place] [id number] [place] [address] 81075- 9373 27 Jul, 2017 skilled nursing (current) 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 Z79.891 ; Back pain M54.9 ; Arthritis M19.90 ; Prediabetes R73.09 ; Hypothyroidism E03.9 ; Coronary artery disease involving nisqually coronary artery of nisqually heart without angina pectoris I25.10 ; Anemia D64.9 and BMI 45.0-49.9, adult Z68.42 [place] [id number] [place] [address] 09353- 5815 15 Jul, 2017 Back pain M54.9 [place] [facility] [id number] [place] [address] 24689- 2577 05 Jul, 2017 Back pain M54.9 [place] [facility] [id number] [place] [address] 43803- 8048 Jun, Back pain M54.9 [place] [facility] [id number] [place] [address] 22179- 1728 Jun, Back pain M54.9 [facility] [id number] [place] [address] 27085 -4727 May, Skin cancer of face C44.300 and BMI 45.0-49.9, adult Z68.42 [facility] [id number] [place] [address] 95523- 9074 May, [facility] [address] 06435- 6187 May, Back pain M54.9 [facility] [id number] [place] [address] 10396- 3397 May, Back pain M54.9 [facility] [address] 47540- 0605 May, Back pain M54.9 [facility] [id number] [place] [address] 15223- 7905 Apr, Back pain M54.9 [facility] [id number] [place] [address] 26015- 1620 Apr, Back pain M54.9 [facility] [address] 05492- 4334 Mar, Back pain M54.9 [facility] [id number] [place] [address] 98825- 1439 Mar, Anemia D64.9 ; Encounter for immunization Z23 ; Arthritis M19.90 and Right inguinal hernia K40.90 [facility] [id number] [place] [address] 97448- 7857 Mar, Back pain M54.9 [facility] [id number] [place] [address] 22525- 9918 22 Feb, 2017 Back pain M54.9 [facility] [id number] [place] [address] 42852- 3647 13 Feb, 2017 Back pain M54.9 [facility] [address] [place] [address]- 2096 Jan, Back pain M54.9 [facility] [address] [facility] [id number] [place] [address] 68244 2546 Jan, Back pain M54.9 [facility] [id number] [place] [address] 57426 2546 Jan, [facility] [id number] [place] [address] 98400 2546 Jan, Back pain M54.9 [facility] [id number] [place] [address] 07931 2546 Dec, Back pain M54.9 [facility] [id number] [place] [address] 51229- 9541 Dec, Back pain M54.9 [facility] [id number] [place] [address] 87043- 1376 Dec, [facility] [id number] [place] [address] 01470 2549 Nov, Hypokalemia E87.6 [facility] [id number] [place] [address] 29713 2546 Nov, Back pain M54.9 [facility] [id number] [place] [address] 79819 2546 Nov, [facility] [id number] [place] [address] 14252 2546 Nov, Arthritis M19.90 [facility] [id number] [place] [address] 26407 2546 Nov, Back pain M54.9 [facility] [id number] [place] [address] 17300 2546 Nov, Generalized edema R60.1 [facility] [id number] [place] [address] 57313 2546 Nov, Back pain M54.9 [place] [facility] [id number] [place] [address] 87810- 1555 07 Nov, 2016 Pain in right knee M25.561 [facility] [id number] [place] [address] 03717- 6995 05 Nov, 2016 Encounter for removal of sutures Z48.02 and Pain in right knee M25.561 [facility] [place] [address] 21565 -3864 Nov, Abrasion of right foot, subsequent encounter S90.811D [facility] [place] [id number] [place] [address] 41761 -9954 October, Toe abrasion, right, initial encounter S90.414A [place] [id number] [place] [address] 02720- 2490 October, [place] [address] 91323- 5800 October, Back pain M54.9 [place] [facility] [id number] [place] [address] 11439- 1665 October, Venous insufficiency I87.2 [place] [facility] [id number] [place] [address] 88245- 5250 October, Pain in right knee M25.561 [place] [facility] [id number] [place] [address] 89279- 1258 Sep, Back pain M54.9 [place] [id number] [place] [address] 98591- 0021 Sep, Venous insufficiency I87.2 [facility] [address] [id number] Sep, [facility] [id number] [place] [address] 27050 -5770 Sep, Leg edema, right R60.0 and Cellulitis of right lower extremity L03.115 [place] [address] [place] [address]- 2283 14 Sep, 2016 Pedal edema R60.0 [facility] [address] 65392- 9827 04 Sep, 2016 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 ; Pain in right knee M25.561 and Arthritis M19.90 [place] [address] 54435- 2758 Aug, Back pain M54.9 [facility] [address] 73348- 6466 Aug, Back pain M54.9 [place] [address] 39526- 5966 Aug, [place] [address] 40238- 0689 Aug, Type 2 diabetes mellitus without complication E11.9 ; Restrictive lung disease J98.4 ; Arthritis M19.90 ; Back pain M54.9 ; Body mass index (BMI) of 45.0-49.9 in adult Z68.42 and Morbid (severe) obesity due to excess calories E66.01 [place] [facility] [id number] [place] [address] 29965- 8174 Aug, Back pain M54.9 [facility] [id number] [place] [address] 90886- 0569 Aug, Back pain M54.9 [facility] [id number] [place] [address] 42397- 1715 Jul, [place] [id number] [place] [address] 09844- 8703 Jul, Back pain M54.9 [facility] [id number] [place] [address] 78143- 9485 Jul, Back pain M54.9 [facility] [address] 35015- 1538 Jun, Back pain M54.9 [facility] [address] [facility] [id number] [place] [address] 09490 2546 Jun, Back pain M54.9 [facility] [address] [facility] [id number] [place] [address] 09555 2546 May, Back pain M54.9 [facility] [address] [facility] [id number] [place] [address] 00318 2546 16 May, 2016 Back pain M54.9 [facility] [address] [facility] [id number] [place] [address] 78301 2546 May, Back pain M54.9 [facility] [address] [facility] [id number] [place] [address] 87941 2546 May, Back pain M54.9 [facility] [address] [facility] [id number] [place] [address] 75126 2546 May, [facility] [address] [facility] [id number] [place] [address] 70029 2549 May, Back pain M54.9 and Pain in right knee M25.561 [facility] [address] [facility] [id number] [place] [address] 71516 254 Apr, [facility] [id number] [place] [address] 54183- 5689 Apr, Type 2 diabetes mellitus without complication E11.9 ; Pain in right knee M25.561 and Pain in left knee M25.562 [facility] [address] [facility] [id number] [address] 2546 Mar, [facility] [address] [facility] [id number] [place] [address] 06502 2546 Mar, [facility] [address] [facility] [id number] [address]- 2546 Mar, [facility] [address] [facility] [id number] [place] [address] 58061- 3471 Mar, Restrictive lung disease J98.4 ; Anemia D64.9 and Cor pulmonale I27.81 [facility] [id number] [place] [address], [place] [address]- 4044 17 Mar, 2016 [facility] [address] [facility] [id number] [place] [address] 51602- 0314 14 Mar, 2016 [facility] [address] [facility] [id number] [place] [address] 90112- 3959 Mar, [facility] [address] [facility] [id number] [place] [address] 58844- 1956 30 Feb, 2016 [facility] [id number] [place] [address], [place] [address]- 5266 29 Feb, 2016 [facility] [id number] [place] [address] 08895- 0479 28 Feb, 2016 [facility] [id number] [place] [address] 82161- 6985 27 Feb, 2016 Restrictive lung disease J98.4 [facility] [address] [facility] [id number] [place] [address], [place] [address]- 8893 23 Feb, 2016 [facility] [address] [facility] [id number] [address] -4100 22 Feb, 2016 [facility] [address] [address]- 2087 16 Feb, 2016 [facility] [id number] [address]- 9247 Jan, [facility] [address] [facility] [id number] [address]- 7901 Jan, [facility] [address] [facility] [id number] [place] [address] 45375- 4315 Jan, [facility] [id number] [address]- 0051 Jan, [facility] [id number] [place] [address] 84992- 7719 Jan, Restrictive lung disease J98.4 ; Anemia D64.9 and Cor pulmonale I27.81 [facility] [id number] [place] [address] 76646- 9564 Dec, [facility] [address] 91320- 1905 Dec, [facility] [address] 96618- 8759 Nov, Arthritis M19.90 and Hypokalemia E87.6 [facility] [address] 12203- 1406 Nov, Back pain M54.9 [facility] [id number] [place] [address] 88528- 8252 October, Back pain M54.9 [facility] [address] 17961- 9209 October, Back pain M54.9 [facility] [id number] [place] [address] 92125- 4933 Sep, Scabies exposure Z20.89 [facility] [id number] [place] [address] 98511- 6892 Sep, Restrictive lung disease J98.4 [facility] [id number] [place] [address] 60877- 0645 Sep, Back pain M54.9 [facility] [id number] [place] [address] 92545- 4935 Sep, Restrictive lung disease J98.4 [facility] [id number] [place] [address] 04044- 3375 Aug, [facility] [id number] [place] [address] 26062- 7052 Aug, [facility] [address] 78045- 4428 Aug, [facility] [id number] [place] [address] 64781- 6020 Aug, [facility] [id number] [place] [address] 91447- 0965 Aug, Back pain M54.9 [facility] [id number] [place] [address] 23498- 5496 Jul, Anemia D64.9 and Prediabetes R73.09 [facility] [id number] [place] [address] 81931- 8183 Jul, Back pain M54.9 [facility] [id number] [place] [address] 71018- 5752 Jul, Back pain M54.9 [facility] [id number] [place] [address] 34611- 8135 Jul, [facility] [id number] [place] [address] 92906- 4001 05 Jul, 2015 Bronchitis J40 and Anemia D64.9 [facility] [id number] [place] [address] 44780- 4762 Jun, [facility] [id number] [place] [address] 93599- 0121 Jun, [facility] [id number] [place] [address] 94087- 8815 Jun, Bronchitis J40 and Anemia D64.9 [facility] [id number] [place] [address] 80588- 2778 Jun, [facility] [id number] [place] [address] 62618- 8396 Jun, Back pain M54.9 [facility] [id number] [place] [address] 68457- 1110 Jun, Anemia D64.9 [facility] [id number] [place] [address] 93043- 3576 Jun, Restrictive lung disease J98.4 ; Anemia D64.9 ; Hypothyroidism E03.9 ; Cor pulmonale I27.81 and Back pain M54.9 [facility] [id number] [place] [address] 18465- 0025 May, [facility] [address] 68791- 6816 Apr, Anemia D64.9 ; Encounter for immunization Z23 and Restrictive lung disease J98.4 [facility] [address] 62536- 0103 Apr, [facility] [id number] [place] [address] 90475- 3464 Mar, [facility] [address] [address]- [address] Mar, Iron deficiency anemia D50.9 [facility] [id number] [place] [address] 75012- 5547 Mar, [facility] [id number] [place] [address] 23829- 9092 Mar, [facility] [id number] [place] [address] 14165- 2180 Mar, Anemia D64.9 [facility] [id number] [place] [address] 17317- 6057 Mar, [facility] [id number] [place] [address] 47563- 4054 Mar, Anemia D64.9 [facility] [id number] [place] [address] 47646- 3051 Mar, Restrictive lung disease J98.4 and Anemia D64.9 [facility] [id number] [place] [address] 99789- 7086 Mar, [facility] [id number] [place] [address] 66556- 9028 Mar, Anemia D64.9 [facility] [id number] [place] [address] 47803- 2596 Mar, Anemia D64.9 [facility] [id number] [place] [address] 04547- 1282 Mar, [facility] [id number] [place] [address] 98378- 3270 Mar, Diabetes mellitus E11.9 ; Bronchitis J40 and Anemia D64.9 [facility] [id number] [place] [address] 39541- 1132 Feb, [facility] [id number] [place] [address] 59764- 1262 Feb, [facility] [address] [address]- [address] Feb, [facility] [id number] [place] [address] 03036- 5640 Feb, [facility] [id number] [place] [address] 05626- 3483 Jan, [facility] [id number] [place] [address] 99682- 1677 Jan, [facility] [id number] [place] [address] 09990- 5775 Dec, Venous insufficiency 459.81 [facility] [id number] [place] [address] 09727- 5889 Dec, [facility] [id number] [place] [address] 88229- 4243 Dec, [facility] [id number] [place] [address] 08619- 2296 Dec, Coronary atherosclerosis of unspecified type of vessel, [place] or graft 414.00 ; Unspecified anemia 285.9 and Generalized osteoarthrosis , unspecified site 715.00 [facility] [id number] [address] Nov, [facility] [id number] [address] Nov, [facility] [id number] [address] Nov, [facility] [id number] [place] [address] October, [facility] [id number] [address] October, Acute bronchitis 466.0 and Shortness of breath 786.05 [facility] [id number] [address] Sep, [facility] [id number] [place] [address]- 1917 Sep, [facility] [id number] [address] 0[address] Aug, [facility] [address] [id number] [address] Aug, [facility] [id number] [address]- 7988 Jul, [facility] [id number] [address] 1077 Jul, [facility] [id number] [address] 4[address] Jul, [facility] [id number] [address] 2181 Jul, [facility] [id number] [address]- 5768 Jun, [facility] [id number] [address] 26[address] Jun, [facility] [place] [facility] [address] [id number] [place] [address] 8257 Jun, [facility] [place] [facility] [address] [id number] [place] [address]- 7985 Jun, [facility] [place] [facility] [address] [id number] [place] [address]- 6102 Jun, [facility] [place] [facility] [address] [id number] [place] [address]- 9367 Jun, [facility] [place] [facility] [address] [id number] [place] [address]- 5889 May, [facility] [place] [facility] [address] [id number] [place] [address]- 0917 May, [facility] [place] [facility] [address] [id number] [place] [address]- 6347 May, [facility] [place] [facility] [address] [id number] [place] [address]- 8596 May, [facility] [place] [facility] [address] [id number] [place] [address]- 7001 Apr, [facility] [place] [facility] [address] [id number] [place] [address]- 4784 Apr, [facility] [place] [facility] [address] [id number] [address]- 0607 Apr, [facility] [place] [facility] [address] [id number] [address]- 5189 Apr, [facility] [place] [facility] [address] [id number] [place] [address]- 5494 Apr, [facility] [place] [facility] [address] [id number] [place] [address]- 1271 Apr, [facility] [place] [facility] [address] [id number] [place] [address]- 8679 Mar, [facility] [place] [facility] [address] [id number] [place] [address]- 5601 Mar, [facility] [place] [facility] [address] [id number] [place] [address]- 4384 Mar, [facility] [place] [facility] [address] [id number] [place] [address]- 8519 Mar, [facility] [place] [facility] [address] [id number] [place] [address] Mar, [facility] [place] [facility] [address] [id number] [place] [address]- 1174 Mar, [facility] [place] [facility] [address] [id number] [place] [address]- 9838 Mar, [facility] [place] [facility] [address] [id number] [place] [address]- 9148 Mar, [facility] [place] [facility] [address] [id number] [place] [address]- 4961 Feb, [facility] [place] [facility] [address] [id number] [place] [address]- 1010 Feb, [facility] [place] [facility] [address] [id number] [place] [address]- 3191 Jan, [facility] [place] [facility] [address] [id number] [place] [address]- 2252 Jan, [facility] [place] [facility] [address] [id number] [place] [address]- 5319 Jan, [facility] [place] [facility] [address] [id number] [place] [address]- 8759 Jan, [facility] [place] [facility] [address] [id number] [place] [address]- 0292 Jan, [facility] [place] [facility] [address] [id number] [place] [address]- 1127 Jan, [facility] [place] [facility] [address] [id number] [place] [address]- 8104 Dec, [facility] [place] [facility] [address] [id number] [place] [address]- 8244 Dec, [facility] [place] [facility] [address] [id number] [place] [address]- 6135 Dec, [facility] [place] [facility] [address] [id number] [place] [address]- 7910 Dec, [facility] [place] [facility] [address] [id number] [place] [address]- 6270 Nov, [facility] [place] [facility] [address] [id number] [place] [address]- 3989 Nov, [facility] [place] [facility] [address] [id number] [place] [address]- 9489 Nov, [facility] [place] [facility] [address] [id number] [place] [address]- 6044 Nov, [facility] [place] [facility] [address] [id number] [place] [address]- 8496 Nov, [facility] [place] [facility] [address] [id number] [place] [address]- 6159 Nov, [facility] [place] [facility] [address] [id number] [place] [address]- 1116 Nov, [facility] [place] [facility] [address] [id number] [place] [address]- 7847 Nov, [facility] [place] [facility] [address] [id number] [place] [address]- 3188 Nov, [facility] [place] [facility] [address] [id number] [place] [address]- 3492 Nov, [facility] [place] [facility] [address] [id number] [place] [address]- 5461 Nov, [facility] [place] [facility] [address] [id number] [place] [address]- 2656 Nov, [facility] [place] [facility] [address] [id number] [place] [address]- 4965 October, [facility] [place] [facility] [address] [id number] [place] [address]- 7868 October, [facility] [place] [facility] [address] [id number] [place] [address]- 7187 October, [facility] [place] [facility] [address] [id number] [place] [address]- 0771 October, [facility] [place] [facility] [address] [id number] [place] [address]- 2862 October, [facility] [place] [facility] [address] [id number] [place] [address]- 3853 October, [facility] [place] [facility] [address] [id number] [place] [address]- 1838 October, [facility] [place] [facility] [address] [id number] [place] [address]- 0133 October, [facility] [place] [facility] [address] [id number] [place] [address]- 0169 October, [facility] [place] [facility] [address] [id number] [place] [address]- 2045 Sep, [facility] [place] [facility] [address] [id number] [place] [address]- 2809 Sep, [facility] [place] [facility] [address] [id number] [place] [address]- 1118 Sep, [facility] [place] [facility] [address] [id number] [place] [address]- 5831 Sep, [facility] [place] [facility] [address] [id number] [place] [address]- 2356 Sep, [facility] [place] [facility] [address] [id number] [place] [address]- 9120 Sep, [facility] [place] [facility] [address] [id number] [place] [address]- 4843 Aug, [facility] [place] [facility] [address] [id number] [place] [address]- 8431 Aug, [facility] [place] [facility] [address] [id number] [place] [address]- 4296 Aug, [facility] [place] [facility] [address] [id number] [place] [address]- 8504 Aug, [facility] [place] [facility] [address] [id number] [place] [address]- 3167 Aug, [facility] [place] [facility] [address] [id number] [place] [address]- 2470 Aug, [facility] [place] [facility] [address] [id number] [place] [address]- 4859 Aug, [facility] [place] [facility] [address] [id number] [place] [address]- 7295 Aug, [facility] [place] [facility] [address] [id number] [place] [address]- 8321 Aug, [facility] [place] [facility] [address] [id number] [place] [address]- 2364 Aug, [facility] [place] [facility] [address] [id number] [place] [address]- 9627 Jul, [facility] [place] [facility] [address] [id number] [place] [address]- 1008 Jul, [facility] [place] [facility] [address] [id number] [place] [address]- 8358 Jun, [facility] [place] [facility] [address] [id number] [place] [address]- 1652 Jun, [facility] [place] [facility] [address] [id number] [place] [address]- 5825 Jun, [facility] [place] [facility] [address] [id number] [place] [address]- 7027 Jun, [facility] [place] [facility] [address] [id number] [place] [address]- 0945 Jun, [facility] [address] [id number] [place] [address]- 4317 Jun, [facility] [place] [facility] [address] [id number] [place] [address]- 5964 Jun, [facility] [place] [facility] [address] [id number] [place] [address]- 6266 Jun, [facility] [place] [facility] [address] [id number] [place] [address]- 3272 May, [facility] [place] [facility] [address] [id number] [place] [address]- 4321 May, [facility] [place] [facility] [address] [id number] [place] [address]- 0076 May, [facility] [place] [facility] [address] [id number] [place] [address]- 9884 May, [facility] [place] [facility] [address] [id number] [place] [address]- 0771 May, [facility] [place] [facility] [address] [id number] [place] [address]- 8887 May, [facility] [place] [facility] [address] [id number] [place] [address]- 2814 May, [facility] [place] [facility] [address] [id number] [place] [address]- 3019 May, [facility] [place] [facility] [address] [id number] [place] [address]- 9992 May, [facility] [place] [facility] [address] [id number] [place] [address]- 4165 Apr, [facility] [place] [facility] [address] [id number] [place] [address]- 1242 Apr, [facility] [place] [facility] [address] [id number] [place] [address]- 7608 Apr, [facility] [place] [facility] [address] [id number] [place] [address]- 9493 Apr, 2012 [facility] [place] [facility] [address] [id number] [place] [address]- 5450 30 Mar, 2012 [facility] [place] [facility] [address] [id number] [place] [address]- 6497 30 Mar, 2012 [facility] [place] [facility] [address] [id number] [place] [address]- 7754 30 Mar, 2012 [facility] [place] [facility] [address] [id number] [place] [address]- 5430 30 Mar, 2012 [facility] [place] [facility] [address] [id number] [place] [address]- 6092 30 Mar, 2012 [facility] [place] [facility] [address] [id number] [place] [address]- 7489 30 Mar, 2012 [facility] [place] [facility] [address] [id number] [place] [address]- 4212 Mar, 2012 [facility] [place] [facility] [address] [id number] [place] [address]- 5272 Mar, 2012 [facility] [place] [facility] [address] [id number] [place] [address]- 7688 Mar, 2012 [facility] [place] [facility] [address] [id number] [address]- 1152 Mar, 2012 [facility] [place] [facility] [address] [id number] [place] [address]- 5276 18 Mar, 2012 [facility] [place] [facility] [address] [id number] [address]- 0043 Mar, 2012 [facility] [place] [facility] [address] [id number] [place] [address]- 5966 Mar, 2012 [facility] [place] [facility] [address] [id number] [address]- 2700 Mar, 2012 [facility] [place] [facility] [address] [id number] [address]- 0254 Mar, 2012 [facility] [place] [facility] [address] [id number] [place] [address]- 5400 18 Mar, 2012 [facility] [place] [facility] [address] [id number] [place] [address]- 0750 17 Mar, 2012 [facility] [place] [facility] [address] [id number] [place] [address]- 9211 17 Mar, 2012 [facility] [place] [facility] [address] [id number] [place] [address]- 1429 15 Mar, 2012 [facility] [place] [facility] [address] [id number] [place] [address]- 5737 15 Mar, 2012 [facility] [place] [facility] [address] [id number] [place] [address]- 0733 14 Mar, 2012 [facility] [place] [facility] [address] [id number] [place] [address]- 9012 14 Mar, 2012 [facility] [place] [facility] [address] [id number] [place] [address]- 2067 14 Mar, 2012 [facility] [place] [facility] [address] [id number] [place] [address]- 3849 14 Mar, 2012 [facility] [place] [facility] [address] [id number] [place] [address]- 3683 12 Mar, 2012 [facility] [place] [facility] [address] [id number] [place] [address]- 4513 11 Mar, 2012 [facility] [place] [facility] [address] [id number] [place] [address]- 7638 11 Mar, 2012 [facility] [place] [facility] [address] [id number] [place] [address]- 6449 10 Mar, 2012 [facility] [place] [facility] [address] [id number] [place] [address]- 4158 10 Mar, 2012 [facility] [place] [facility] [address] [id number] [place] [address]- 9409 10 Mar, 2012 [facility] [place] [facility] [address] [id number] [place] [address]- 7526 Mar, [facility] [place] [facility] [address] [id number] [place] [address]- 4226 Mar, [facility] [place] [facility] [address] [id number] [place] [address]- 8112 Mar, [facility] [place] [facility] [address] [id number] [place] [address]- 6894 Feb, [facility] [place] [facility] [address] [id number] [place] [address]- 1171 Feb, [facility] [place] [facility] [address] [id number] [place] [address]- 5723 Feb, [facility] [place] [facility] [address] [id number] [place] [address]- 2187 Feb, [facility] [place] [facility] [address] [id number] [place] [address]- 5380 Jan, [facility] [place] [facility] [address] [id number] [place] [address]- 0650 Jan, [facility] [place] [facility] [address] [id number] [place] [address]- 7968 Jan, [facility] [place] [facility] [address] [id number] [place] [address]- 5001 Jan, [facility] [place] [facility] [address] [id number] [place] [address]- 4840 Jan, [facility] [place] [facility] [address] [id number] [place] [address]- 1732 Jan, [facility] [place] [facility] [address] [id number] [place] [address]- 3363 Dec, [facility] [place] [facility] [address] [id number] [place] [address]- 2928 Dec, [facility] [place] [facility] [address] [id number] [place] [address]- 7050 Dec, [facility] [place] [facility] [address] [id number] [place] [address]- 0861 Dec, [facility] [address] [id number] [place] [address]- 4500 Dec, [facility] [address] [id number] [place] [address]- 2639 Dec, [facility] [address] [id number] [place] [address]- 8167 Dec, [facility] [address] [id number] [place] [address]- 6453 Dec, [facility] [address] [id number] [place] [address]- 6740 Dec, [facility] [address] [id number] [place] [address]- 9676 Dec, [facility] [address] [id number] [place] [address]- 1131 Dec, [facility] [address] [id number] [place] [address]- 7384 October, [facility] [address] [id number] [place] [address]- 1511 October, [facility] [address] [id number] [place] [address]- 9020 October, [facility] [address] [id number] [place] [address]- 9529 October, [facility] [address] [id number] [place] [address]- 8558 Sep, [facility] [address] [id number] [place] [address]- 1291 Sep, [facility] [address] [id number] [place] [address]- 0253 Sep, [facility] [address] [id number] [place] [address]- 1560 Sep, [facility] [address] [id number] [address]- 0520 Sep, [facility] [address] [id number] [address]- 1230 Sep, [facility] [address] [id number] [address]- 7737 Sep, [facility] [id number] [address]- 0786 Sep, [facility] [address] [id number] [address]- 9303 Sep, [facility] [id number] [address]- 8697 Sep, [facility] [address] [id number] [address]- 9654 Sep, IMMUNIZATIONS No Known Immunizations SOCIAL HISTORY Never Assessed REASON FOR VISIT PA PLAN OF CARE VITAL SIGNS MEDICATIONS Medication Instructions Dosage Frequency Start Date End Date Duration Status Percocet 7.5-325 MG Orally 3 times a day 1 tablet 8h Jan, 28 days Active RESULTS No Results PROCEDURES [...] problems 09/2015 Hospitalization History Acute dyspnea, muscle cramps--[facility] 03/04/16 Hospitalization History RLE Cellulitis, Hypokalemia, anemia-[facility] 09/29/15 Hospitalization History Lower edema 09/2016 Hospitalization History Received stitches ER 10/2016
--- OUTSIDE RECORDS SUMMARY | 2018-03-19 23:49 | XMS REPORT ---
Author Author JAN HERNANDEZ [facility] [address] Address [address] [place] [address] Care Team Providers Care Security Messenger Name Role Phone JAN HERNANDEZ Unavailable PROBLEMS Type Condition ICD9-CM Code YRV20-FY Code Onset Dates Condition Status SNOMED Code Problem Prediabetes R73.09 Active 4872571 Problem Arthritis M19.90 Active 0358766 Problem Hypokalemia E87.6 Active 57573070 Problem Coronary artery disease involving beaver coronary artery of beaver heart without angina pectoris I25.10 Active 9739963495215 Problem Skin cancer of face C44.300 Active 093104528 Problem Morbid (severe) obesity due to excess calories E66.01 Active 126083664 Problem Body mass index (BMI) of 45.0-49.9 in adult Z68.42 Active 796974223 Problem Venous insufficiency I87.2 Active 44649171 Problem 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 Active 479811532 Problem Anemia D64.9 Active 242967105 Problem Cor pulmonale I27.81 Active 73244520 Problem Back pain M54.9 Active 737263568 Problem Restrictive lung disease J98.4 Active 89315934 Problem Hypothyroidism E03.9 Active 66669426 ALLERGIES No Information ENCOUNTERS Encounter Location Date Diagnosis [facility] [id number], [place] [address] Feb, Arthritis M19.90 [facility] [id number], [place] [address] 1146 Jan, Arthritis M19.90 [facility] [address], [place] [address] Jan, Back pain M54.9 and Arthritis M19.90 [facility] [id number], [place] [address] 86[address] Jan, [facility] [address] [facility] [id number], [place] [address] 6[address] Jan, Back pain M54.9 [facility] [id number] [place] [address] 94165- 7658 Jan, Arthritis M19.90 [facility] [id number] [place] [address] 07270- 9304 Jan, Back pain M54.9 [facility] [id number] [place] [address] 53561- 5333 Jan, [facility] [id number] [place] [address] 60911- 0185 Jan, Back pain M54.9 [facility] [id number] [place] [address] 22618- 9515 Dec, Ingrowing nail with infection L60.0 and Onychomycosis B35.1 [facility] [id number] [place] [address] 48936- 2299 Dec, Arthritis M19.90 [facility] [id number] [place] [address] 28134- 0720 Dec, Ingrowing nail L60.0 [facility] [id number] [place] [address] 30678- 4453 Dec, Back pain M54.9 [facility] [id number], [place] [address] Dec, [facility] [address] [facility] [id number], [place] [address]- 8640 Dec, Back pain M54.9 [facility] [id number] [place] [address] 01161- 8022 Nov, Arthritis M19.90 [facility] [id number], [place] [address]- 2372 Nov, [facility] [id number] [place] [address] 29621- 8899 Nov, Arthritis M19.90 ; Anemia D64.9 ; Restrictive lung disease J98.4 ; Weakness R53.1 and BMI 50.0-59.9, adult Z68.43 [facility] [id number] [place] [address] 74608- 2193 Nov, Arthritis M19.90 [facility] [id number] [place] [address] 28958- 9372 Nov, Back pain M54.9 [facility] [address] 61661- 2561 October, Back pain M54.9 [facility] [id number] [place] [address] 89259- 2132 October, Back pain M54.9 [facility] [id number] [place] [address] 41959- 0443 Sep, Back pain M54.9 [facility] [id number] [place] [address] 43938- 3311 Sep, Back pain M54.9 [facility] [id number] [place] [address] 08583 -1818 Sep, [facility] [id number] [place] [address] 78776 -4110 Sep, [facility] [id number] [place] [address] 52713 -6501 Sep, Swelling of right lower extremity M79.89 and Cellulitis of right lower extremity L03.115 [facility] [id number] [place] [address] 48449- 0040 Aug, Back pain M54.9 [facility] [id number] [place] [address] 91553- 4925 15 Aug, 2017 Back pain M54.9 [facility] [id number] [place] [address] 55290- 6197 Aug, [facility] [id number] [place] [address] 84519- 0583 Aug, Cellulitis of right lower extremity L03.115 ; Ventral hernia without obstruction or gangrene K43.9 and BMI 50.0-59.9, adult Z68.43 [facility] [id number] [place] [address] 62223- 9848 28 Jul, 2017 Back pain M54.9 [facility] [id number] [place] [address] 13240- 6809 Jul, [facility] (current) 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 Z79.891 ; Arthritis M19.90 ; Back pain M54.9 ; Prediabetes R73.09 ; Hypothyroidism E03.9 ; Coronary artery disease involving beaver coronary artery of beaver heart without angina pectoris I25.10 and Anemia D64.9 [facility] [id number] [place] [address] 11752- 1603 27 Jul, 2017 [facility] (current) 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 Z79.891 ; Back pain M54.9 ; Arthritis M19.90 ; Prediabetes R73.09 ; Hypothyroidism E03.9 ; Coronary artery disease involving beaver coronary artery of beaver heart without angina pectoris I25.10 ; Anemia D64.9 and BMI 45.0-49.9, adult Z68.42 [facility] [id number] [place] [address] 41294- 9239 15 Jul, 2017 Back pain M54.9 [facility] [id number] [place] [address] 11950- 4835 05 Jul, 2017 Back pain M54.9 [facility] [id number] [place] [address] 26553- 8989 Jun, Back pain M54.9 [facility] [id number] [place] [address] 12880- 8143 Jun, Back pain M54.9 [facility] [id number] [place] [address] 45834 -9967 May, Skin cancer of face C44.300 and BMI 45.0-49.9, adult Z68.42 [facility] [id number] [place] [address] 47339- 2300 May, [facility] [address] 59135- 3872 May, Back pain M54.9 [facility] [id number] [place] [address] 28206- 1424 May, Back pain M54.9 [facility] [address] 27105- 9268 May, Back pain M54.9 [facility] [id number] [place] [address] 81980- 1049 Apr, Back pain M54.9 [facility] [id number] [place] [address] 11754- 5449 Apr, Back pain M54.9 [facility] [address] 66047- 9935 Mar, Back pain M54.9 [facility] [id number] [place] [address] 00575- 7956 Mar, Anemia D64.9 ; Encounter for immunization Z23 ; Arthritis M19.90 and Right inguinal hernia K40.90 [facility] [id number] [place] [address] 93612- 7719 Mar, Back pain M54.9 [facility] [id number] [place] [address] 78209- 9403 22 Feb, 2017 Back pain M54.9 [facility] [id number] [place] [address] 29967- 8068 13 Feb, 2017 Back pain M54.9 [facility] [address] [place] [address]- 9989 Jan, Back pain M54.9 [facility] [address] [facility] [id number] [place] [address] 73027 2546 Jan, Back pain M54.9 [facility] [id number] [place] [address] 59461 2546 Jan, [facility] [id number] [place] [address] 59341 2546 Jan, Back pain M54.9 [facility] [id number] [place] [address] 93721 2546 Dec, Back pain M54.9 [facility] [id number] [place] [address] 04066- 7840 Dec, Back pain M54.9 [facility] [id number] [place] [address] 08132- 9866 Dec, [facility] [id number] [place] [address] 34911 2547 Nov, Hypokalemia E87.6 [facility] [id number] [place] [address] 78691 2546 Nov, Back pain M54.9 [facility] [id number] [place] [address] 32965 2546 Nov, [facility] [id number] [place] [address] 14829 2546 Nov, Arthritis M19.90 [facility] [id number] [place] [address] 16277 2546 Nov, Back pain M54.9 [facility] [id number] [place] [address] 49078 2546 Nov, Generalized edema R60.1 [facility] [id number] [place] [address] 04623 2546 Nov, Back pain M54.9 [facility] [id number] [place] [address] 80746- 7675 07 Nov, 2016 Pain in right knee M25.561 [facility] [id number] [place] [address] 47091- 5229 05 Nov, 2016 Encounter for removal of sutures Z48.02 and Pain in right knee M25.561 [facility] [place] 48868 -9083 Nov, Abrasion of right foot, subsequent encounter S90.811D [facility] [id number] [place] [address] 34288 -0112 October, Toe abrasion, right, initial encounter S90.414A [facility] [id number] [place] [address] 50420- 4322 October, [facility] [address] 19114- 7527 October, Back pain M54.9 [facility] [id number] [place] [address] 68939- 8920 October, Venous insufficiency I87.2 [facility] [id number] [place] [address] 73451- 0658 October, Pain in right knee M25.561 [facility] [id number] [place] [address] 40497- 2918 Sep, Back pain M54.9 [facility] [id number] [place] [address] 14272- 6824 Sep, Venous insufficiency I87.2 [facility] [address] [id number] Sep, [facility] [id number] [place] [address] 86675 -0362 Sep, Leg edema, right R60.0 and Cellulitis of right lower extremity L03.115 [facility] [address] [place] [address]- 8434 14 Sep, 2016 Pedal edema R60.0 [facility] [address] 55717- 6551 04 Sep, 2016 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 ; Pain in right knee M25.561 and Arthritis M19.90 [facility] [address] 12487- 2420 Aug, Back pain M54.9 [facility] [address] 41397- 0809 Aug, Back pain M54.9 [facility] [address] 33372- 7484 Aug, [facility] [address] 49227- 5979 Aug, Type 2 diabetes mellitus without complication E11.9 ; Restrictive lung disease J98.4 ; Arthritis M19.90 ; Back pain M54.9 ; Body mass index (BMI) of 45.0-49.9 in adult Z68.42 and Morbid (severe) obesity due to excess calories E66.01 [facility] [id number] [place] [address] 81812- 3570 Aug, Back pain M54.9 [facility] [id number] [place] [address] 61846- 8112 Aug, Back pain M54.9 [facility] [id number] [place] [address] 96360- 0256 Jul, [facility] [id number] [place] [address] 33045- 4255 Jul, Back pain M54.9 [facility] [id number] [place] [address] 31716- 8405 Jul, Back pain M54.9 [facility] [address] 53379- 1704 Jun, Back pain M54.9 [facility] [address] [facility] [id number] [place] [address] 02599 2546 Jun, Back pain M54.9 [facility] [address] [facility] [id number] [place] [address] 59710 2546 May, Back pain M54.9 [facility] [address] [facility] [id number] [place] [address] 88341 2546 16 May, 2016 Back pain M54.9 [facility] [address] [facility] [id number] [place] [address] 22585 2546 May, Back pain M54.9 [facility] [address] [facility] [id number] [place] [address] 36621 2546 May, Back pain M54.9 [facility] [address] [facility] [id number] [place] [address] 18636 2546 May, [facility] [address] [facility] [id number] [place] [address] 05544 2540 May, Back pain M54.9 and Pain in right knee M25.561 [facility] [address] [facility] [id number] [place] [address] 80415 2549 Apr, [facility] [id number] [place] [address] 65604- 7963 Apr, Type 2 diabetes mellitus without complication E11.9 ; Pain in right knee M25.561 and Pain in left knee M25.562 [facility] [address] [facility] [id number], [place] [address] 2546 Mar, [facility] [address] [facility] [id number] [place] [address] 06209 2546 Mar, [facility] [address] [facility] [id number], [place] [address]- 2546 Mar, [facility] [address] [facility] [id number] [place] [address] 37419- 3109 Mar, Restrictive lung disease J98.4 ; Anemia D64.9 and Cor pulmonale I27.81 [facility] [id number] [place] [address], [place] [address]- 0153 17 Mar, 2016 [facility] [address] [facility] [id number] [place] [address] 18520- 7482 14 Mar, 2016 [facility] [address] [facility] [id number] [place] [address] 89346- 7927 Mar, [facility] [address] [facility] [id number] [place] [address] 49051- 8792 30 Feb, 2016 [facility] [id number] [place] [address], [place] [address]- 4943 29 Feb, 2016 [facility] [id number] [place] [address] 83529- 8794 28 Feb, 2016 [facility] [id number] [place] [address] 16168- 7606 27 Feb, 2016 Restrictive lung disease J98.4 [facility] [address] [facility] [id number] [place] [address], [place] [address]- 2304 23 Feb, 2016 [facility] [address] [facility] [id number], [place] [address] -4929 22 Feb, 2016 [facility] [address], [place] [address]- 4397 16 Feb, 2016 [facility] [id number], [place] [address]- 7803 Jan, [facility] [address] [facility] [id number], [place] [address]- 6686 Jan, [facility] [address] [facility] [id number] [place] [address] 39760- 3474 Jan, [facility] [id number], [place] [address]- 3269 Jan, [facility] [id number] [place] [address] 38305- 9848 Jan, Restrictive lung disease J98.4 ; Anemia D64.9 and Cor pulmonale I27.81 [facility] [id number] [place] [address] 48740- 0248 Dec, [facility] [address] 16868- 2457 Dec, [facility] [address] 25442- 3023 Nov, Arthritis M19.90 and Hypokalemia E87.6 [facility] [address] 18902- 5010 Nov, Back pain M54.9 [facility] [id number] [place] [address] 19065- 4277 October, Back pain M54.9 [facility] [address] 94881- 5952 October, Back pain M54.9 [facility] [id number] [place] [address] 68622- 6102 Sep, Scabies exposure Z20.89 [facility] [id number] [place] [address] 04300- 4565 Sep, Restrictive lung disease J98.4 [facility] [id number] [place] [address] 49910- 4955 Sep, Back pain M54.9 [facility] [id number] [place] [address] 65042- 9564 Sep, Restrictive lung disease J98.4 [facility] [id number] [place] [address] 65409- 4316 Aug, [facility] [id number] [place] [address] 55343- 9676 Aug, [facility] [address] 92927- 6043 Aug, [facility] [id number] [place] [address] 88257- 7449 Aug, [facility] [id number] [place] [address] 40957- 0125 Aug, Back pain M54.9 [facility] [id number] [place] [address] 26646- 3662 Jul, Anemia D64.9 and Prediabetes R73.09 [facility] [id number] [place] [address] 78734- 6266 Jul, Back pain M54.9 [facility] [id number] [place] [address] 91653- 0827 Jul, Back pain M54.9 [facility] [id number] [place] [address] 98993- 9990 Jul, [facility] [id number] [place] [address] 34601- 4019 05 Jul, 2015 Bronchitis J40 and Anemia D64.9 [facility] [id number] [place] [address] 20131- 0552 Jun, [facility] [id number] [place] [address] 88816- 8423 Jun, [facility] [id number] [place] [address] 95843- 3616 Jun, Bronchitis J40 and Anemia D64.9 [facility] [id number] [place] [address] 83618- 1947 Jun, [facility] [id number] [place] [address] 41827- 8362 Jun, Back pain M54.9 [facility] [id number] [place] [address] 85521- 5735 Jun, Anemia D64.9 [facility] [id number] [place] [address] 01319- 4157 Jun, Restrictive lung disease J98.4 ; Anemia D64.9 ; Hypothyroidism E03.9 ; Cor pulmonale I27.81 and Back pain M54.9 [facility] [id number] [place] [address] 66596- 4492 May, [facility] [address] 68487- 0199 Apr, Anemia D64.9 ; Encounter for immunization Z23 and Restrictive lung disease J98.4 [facility] [address] 02908- 9724 Apr, [facility] [id number] [place] [address] 20761- 8850 Mar, [facility] [address] 91832- 2307 Mar, Iron deficiency anemia D50.9 [facility] [id number] [place] [address] 76101- 8867 Mar, [facility] [id number] [place] [address] 61809- 7920 Mar, [facility] [id number] [place] [address] 76965- 8448 Mar, Anemia D64.9 [facility] [id number] [place] [address] 92227- 6532 Mar, [facility] [id number] [place] [address] 48172- 2907 Mar, Anemia D64.9 [facility] [id number] [place] [address] 68760- 0406 Mar, Restrictive lung disease J98.4 and Anemia D64.9 [facility] [id number] [place] [address] 94489- 4139 Mar, [facility] [id number] [place] [address] 86676- 1068 Mar, Anemia D64.9 [facility] [id number] [place] [address] 56051- 7439 Mar, Anemia D64.9 [facility] [id number] [place] [address] 01202- 9056 Mar, [facility] [id number] [place] [address] 12950- 2880 Mar, Diabetes mellitus E11.9 ; Bronchitis J40 and Anemia D64.9 [facility] [id number] [place] [address] 03780- 9983 Feb, [facility] [id number] [place] [address] 16481- 7824 Feb, [facility] [address] [address]- [address]682 Feb, [facility] [id number] [place] [address] 03570- 0840 Feb, [facility] [id number] [place] [address] 19682- 6714 Jan, [facility] [id number] [place] [address] 40005- 3046 Jan, [facility] [id number] [place] [address] 61030- 0039 Dec, Venous insufficiency 459.81 [facility] [id number] [place] [address] 22653- 7712 Dec, [facility] [id number] [place] [address] 53685- 0688 Dec, [facility] [id number] [place] [address] 93667- 5861 Dec, Coronary atherosclerosis of unspecified type of vessel, beaver or graft 414.00 ; Unspecified anemia 285.9 and Generalized osteoarthrosis , unspecified site 715.00 [facility] [id number] [place] [address] Nov, [facility] [id number] Nov, [facility] [id number] [place] [address] Nov, [facility] [id number] [place] [address] 23562- 1863 October, [facility] [id number] [place] [address] October, Acute bronchitis 466.0 and Shortness of breath 786.05 [facility] [id number] [place] [address] Sep, [facility] [id number] [place] [address] 56642- 3120 Sep, [facility] [id number] [place] [address] Aug, [facility] [id number] [address] Aug, [facility] [id number] [place] [address] 8487 Jul, [facility] [id number] [place] [address] Jul, [facility] [facility] [id number], [place] [address] Jul, [facility] [id number], [place] [address] Jul, [facility] [id number], [place] [address] Jun, [facility] [id number], [place] [address] Jun, [facility] [place] [facility] [address] [id number] [place] [address] Jun, [facility] [place] [facility] [address] [id number] [place] [address] 9[address] Jun, [facility] [place] [facility] [address] [id number] [place] [address] 5079 Jun, [facility] [place] [facility] [address] [id number] [place] [address] 9966 Jun, [facility] [place] [facility] [address] [id number] [place] [address]- 9966 May, [facility] [place] [facility] [address] [id number] [place] [address]- 2950 May, [facility] [place] [facility] [address] [id number] [place] [address]- 0472 May, [facility] [place] [facility] [address] [id number] [place] [address]- 1450 May, [facility] [place] [facility] [address] [id number] [place] [address]- [address]01 Apr, [facility] [place] [facility] [address] [id number] [place] [address]- 4498 Apr, [facility] [place] [facility] [address] [id number], [place] [address] Apr, [facility] [place] [facility] [address] [id number], [place] [address] Apr, [facility] [place] [facility] [address] [id number] [place] [address]- 8951 Apr, [facility] [place] [facility] [address] [id number] [place] [address]- 6707 Apr, [facility] [place] [facility] [address] [id number] [place] [address]- 0869 Mar, [facility] [place] [facility] [address] [id number] [place] [address]- 0439 Mar, [facility] [place] [facility] [address] [id number] [place] [address]- 4351 Mar, [facility] [place] [facility] [address] [id number] [place] [address]- 7953 Mar, [facility] [place] [facility] [address] [id number] [place] [address] Mar, [facility] [place] [facility] [address] [id number] [place] [address]- 1186 Mar, [facility] [place] [facility] [address] [id number] [place] [address]- 4238 Mar, [facility] [place] [facility] [address] [id number] [place] [address]- 6786 Mar, [facility] [place] [facility] [address] [id number] [place] [address]- 2297 Feb, [facility] [place] [facility] [address] [id number] [place] [address]- 0883 Feb, [facility] [place] [facility] [address] [id number] [place] [address]- 2895 Jan, [facility] [place] [facility] [address] [id number] [place] [address]- 8952 Jan, [facility] [place] [facility] [address] [id number] [place] [address]- 0600 Jan, [facility] [place] [facility] [address] [id number] [place] [address]- 6596 Jan, [facility] [place] [facility] [address] [id number] [place] [address]- 6753 Jan, [facility] [place] [facility] [address] [id number] [place] [address]- 4750 Jan, [facility] [place] [facility] [address] [id number] [place] [address]- 7085 Dec, [facility] [place] [facility] [address] [id number] [place] [address]- 1298 Dec, [facility] [place] [facility] [address] [id number] [place] [address]- 5862 Dec, [facility] [place] [facility] [address] [id number] [place] [address]- 3356 Dec, [facility] [place] [facility] [address] [id number] [place] [address]- 2057 Nov, [facility] [place] [facility] [address] [id number] [place] [address]- 4078 Nov, [facility] [place] [facility] [address] [id number] [place] [address]- 9581 Nov, [facility] [place] [facility] [address] [id number] [place] [address]- 6045 Nov, [facility] [place] [facility] [address] [id number] [place] [address]- 1081 Nov, [facility] [place] [facility] [address] [id number] [place] [address]- 1842 Nov, [facility] [place] [facility] [address] [id number] [place] [address]- 2617 Nov, [facility] [place] [facility] [address] [id number] [place] [address]- 8033 Nov, [facility] [place] [facility] [address] [id number] [place] [address]- 6515 Nov, [facility] [place] [facility] [address] [id number] [place] [address]- 9999 Nov, [facility] [place] [facility] [address] [id number] [place] [address]- 9001 Nov, [facility] [place] [facility] [address] [id number] [place] [address]- 6918 Nov, [facility] [place] [facility] [address] [id number] [place] [address]- 1280 October, [facility] [place] [facility] [address] [id number] [place] [address]- 4330 October, [facility] [place] [facility] [address] [id number] [place] [address]- 2463 October, [facility] [place] [facility] [address] [id number] [place] [address]- 1440 October, [facility] [place] [facility] [address] [id number] [place] [address]- 0211 October, [facility] [place] [facility] [address] [id number] [place] [address]- 8586 October, [facility] [place] [facility] [address] [id number] [place] [address]- 4657 October, [facility] [place] [facility] [address] [id number] [place] [address]- 1384 October, [facility] [place] [facility] [address] [id number] [place] [address]- 4039 October, [facility] [place] [facility] [address] [id number] [place] [address]- 5991 Sep, [facility] [place] [facility] [address] [id number] [place] [address]- 8452 Sep, [facility] [place] [facility] [address] [id number] [place] [address]- 7042 Sep, [facility] [place] [facility] [address] [id number] [place] [address]- 7970 Sep, [facility] [place] [facility] [address] [id number] [place] [address]- 6985 Sep, [facility] [place] [facility] [address] [id number] [place] [address]- 2028 Sep, [facility] [place] [facility] [address] [id number] [place] [address]- 8638 Aug, [facility] [place] [facility] [address] [id number] [place] [address]- 5824 Aug, [facility] [place] [facility] [address] [id number] [place] [address]- 1931 Aug, [facility] [place] [facility] [address] [id number] [place] [address]- 3373 Aug, [facility] [place] [facility] [address] [id number] [place] [address]- 3863 Aug, [facility] [place] [facility] [address] [id number] [place] [address]- 4173 Aug, [facility] [place] [facility] [address] [id number] [place] [address]- 7431 Aug, [facility] [place] [facility] [address] [id number] [place] [address]- 6190 Aug, [facility] [place] [facility] [address] [id number] [place] [address]- 7206 Aug, [facility] [place] [facility] [address] [id number] [place] [address]- 7424 Aug, [facility] [place] [facility] [address] [id number] [place] [address]- 9029 Jul, [facility] [place] [facility] [address] [id number] [place] [address]- 8957 Jul, [facility] [place] [facility] [address] [id number] [place] [address]- 6277 Jun, [facility] [place] [facility] [address] [id number] [place] [address]- 3020 Jun, [facility] [place] [facility] [address] [id number] [place] [address]- 2992 Jun, [facility] [place] [facility] [address] [id number] [place] [address]- 3978 Jun, [facility] [place] [facility] [address] [id number] [place] [address]- 0778 Jun, [facility] [address] [id number] [place] [address]- 9119 Jun, [facility] [place] [facility] [address] [id number] [place] [address]- 9081 Jun, [facility] [place] [facility] [address] [id number] [place] [address]- 7097 Jun, [facility] [place] [facility] [address] [id number] [place] [address]- 8619 May, [facility] [place] [facility] [address] [id number] [place] [address]- 1589 May, [facility] [place] [facility] [address] [id number] [place] [address]- 3545 May, [facility] [place] [facility] [address] [id number] [place] [address]- 8106 May, [facility] [place] [facility] [address] [id number] [place] [address]- 2858 May, [facility] [place] [facility] [address] [id number] [place] [address]- 0849 May, [facility] [place] [facility] [address] [id number] [place] [address]- 4270 May, [facility] [place] [facility] [address] [id number] [place] [address]- 9910 May, [facility] [place] [facility] [address] [id number] [place] [address]- 0635 May, [facility] [place] [facility] [address] [id number] [place] [address]- 4649 Apr, [facility] [place] [facility] [address] [id number] [place] [address]- 5151 Apr, [facility] [place] [facility] [address] [id number] [place] [address]- 6130 Apr, [facility] [place] [facility] [address] [id number] [place] [address]- 8220 Apr, 2012 [facility] [place] [facility] [address] [id number] [place] [address]- 3975 30 Mar, 2012 [facility] [place] [facility] [address] [id number] [place] [address]- 4039 30 Mar, 2012 [facility] [place] [facility] [address] [id number] [place] [address]- 7221 30 Mar, 2012 [facility] [place] [facility] [address] [id number] [place] [address]- 3491 30 Mar, 2012 [facility] [place] [facility] [address] [id number] [place] [address]- 5210 30 Mar, 2012 [facility] [place] [facility] [address] [id number] [place] [address]- 4918 30 Mar, 2012 [facility] [place] [facility] [address] [id number] [place] [address]- 6836 Mar, 2012 [facility] [place] [facility] [address] [id number] [place] [address]- 2483 Mar, 2012 [facility] [place] [facility] [address] [id number] [place] [address]- 2983 Mar, 2012 [facility] [place] [facility] [address] [id number], [place] [address]- 1072 Mar, 2012 [facility] [place] [facility] [address] [id number] [place] [address]- 9957 18 Mar, 2012 [facility] [place] [facility] [address] [id number], [place] [address]- 6762 Mar, 2012 [facility] [place] [facility] [address] [id number] [place] [address]- 0591 Mar, 2012 [facility] [place] [facility] [address] [id number], [place] [address]- 6232 Mar, 2012 [facility] [place] [facility] [address] [id number], [place] [address]- 0124 Mar, 2012 [facility] [place] [facility] [address] [id number] [place] [address]- 3109 18 Mar, 2012 [facility] [place] [facility] [address] [id number] [place] [address]- 8604 17 Mar, 2012 [facility] [place] [facility] [address] [id number] [place] [address]- 3636 17 Mar, 2012 [facility] [place] [facility] [address] [id number] [place] [address]- 4872 15 Mar, 2012 [facility] [place] [facility] [address] [id number] [place] [address]- 1350 15 Mar, 2012 [facility] [place] [facility] [address] [id number] [place] [address]- 3048 14 Mar, 2012 [facility] [place] [facility] [address] [id number] [place] [address]- 0885 14 Mar, 2012 [facility] [place] [facility] [address] [id number] [place] [address]- 6285 14 Mar, 2012 [facility] [place] [facility] [address] [id number] [place] [address]- 5195 14 Mar, 2012 [facility] [place] [facility] [address] [id number] [place] [address]- 9638 12 Mar, 2012 [facility] [place] [facility] [address] [id number] [place] [address]- 7482 11 Mar, 2012 [facility] [place] [facility] [address] [id number] [place] [address]- 3310 11 Mar, 2012 [facility] [place] [facility] [address] [id number] [place] [address]- 5425 10 Mar, 2012 [facility] [place] [facility] [address] [id number] [place] [address]- 2285 10 Mar, 2012 [facility] [place] [facility] [address] [id number] [place] [address]- 9967 10 Mar, 2012 [facility] [place] [facility] [address] [id number] [place] [address]- 9941 Mar, [facility] [place] [facility] [address] [id number] [place] [address]- 9872 Mar, [facility] [place] [facility] [address] [id number] [place] [address]- 7509 Mar, [facility] [place] [facility] [address] [id number] [place] [address]- 1775 Feb, [facility] [place] [facility] [address] [id number] [place] [address]- 9225 Feb, [facility] [place] [facility] [address] [id number] [place] [address]- 1462 Feb, [facility] [place] [facility] [address] [id number] [place] [address]- 8452 Feb, [facility] [place] [facility] [address] [id number] [place] [address]- 7959 Jan, [facility] [place] [facility] [address] [id number] [place] [address]- 6842 Jan, [facility] [place] [facility] [address] [id number] [place] [address]- 7019 Jan, [facility] [place] [facility] [address] [id number] [place] [address]- 0567 Jan, [facility] [place] [facility] [address] [id number] [place] [address]- 1019 Jan, [facility] [place] [facility] [address] [id number] [place] [address]- 0003 Jan, [facility] [place] [facility] [address] [id number] [place] [address]- 0122 Dec, [facility] [place] [facility] [address] [id number] [place] [address]- 8127 Dec, [facility] [place] [facility] [address] [id number] [place] [address]- 6188 Dec, [facility] [place] [facility] [address] [id number] [place] [address]- 5629 Dec, [facility] [address] [id number] [place] [address]- 1934 Dec, [facility] [address] [id number] [place] [address]- 6192 Dec, [facility] [address] [id number] [place] [address]- 6447 Dec, [facility] [address] [id number] [place] [address]- 1275 Dec, [facility] [address] [id number] [place] [address]- 7073 Dec, [facility] [address] [id number] [place] [address]- 8157 Dec, [facility] [address] [id number] [place] [address]- 6139 Dec, [facility] [address] [id number] [place] [address]- 3506 October, [facility] [address] [id number] [place] [address]- 9852 October, [facility] [address] [id number] [place] [address]- 7148 October, [facility] [address] [id number] [place] [address]- 9573 October, [facility] [address] [id number] [place] [address]- 4160 Sep, [facility] [address] [id number] [place] [address]- 7446 Sep, [facility] [address] [id number] [place] [address]- 2260 Sep, [facility] [address] [id number] [place] [address]- 4136 Sep, [facility] [address] [id number], [place] [address]- 1685 Sep, [facility] [address] [id number], [place] [address]- 0080 Sep, [facility] [address] [id number], [place] [address]- 0590 Sep, [facility] [id number], [place] [address]- 6040 Sep, [facility] [address] [id number], [place] [address]- 8997 Sep, [facility] [id number], [place] [address]- 3502 Sep, [facility] [address] [id number], [place] [address]- 0823 Sep, IMMUNIZATIONS No Known Immunizations SOCIAL HISTORY Never Assessed REASON FOR VISIT Controlled Med Refill PLAN OF CARE VITAL SIGNS MEDICATIONS Medication Instructions Dosage Frequency Start Date End Date Duration Status Fentanyl 100 MCG/HR Transdermal every 72 hours 1 Patch Jan, 28 days Active RESULTS No Results [...] problems 09/2015 Hospitalization History Acute dyspnea, muscle cramps--[facility] 03/04/16 Hospitalization History RLE Cellulitis, Hypokalemia, anemia-[facility] 09/29/15 Hospitalization History Lower edema 09/2016 Hospitalization History Received stitches ER 10/2016
--- OUTSIDE RECORDS SUMMARY | 2018-03-19 23:50 | XMS REPORT ---
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 Name Role Phone JAN HERNANDEZ Unavailable PROBLEMS Type Condition ICD9-CM Code MLU81-IA Code Onset Dates Condition Status SNOMED Code Problem Prediabetes R73.09 Active 9558422 Problem Arthritis M19.90 Active 9446922 Problem Hypokalemia E87.6 Active 37380319 Problem Coronary artery disease involving cabazon coronary artery of cabazon heart without angina pectoris I25.10 Active 3412419868671 Problem Skin cancer of face C44.300 Active 007709192 Problem Morbid (severe) obesity due to excess calories E66.01 Active 582645443 Problem Body mass index (BMI) of 45.0-49.9 in adult Z68.42 Active 000232731 Problem Venous insufficiency I87.2 Active 86255628 Problem 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 Active 457340965 Problem Anemia D64.9 Active 819222536 Problem Cor pulmonale I27.81 Active 14745420 Problem Back pain M54.9 Active 654229391 Problem Restrictive lung disease J98.4 Active 83073305 Problem Hypothyroidism E03.9 Active 24678298 ALLERGIES No Information ENCOUNTERS Encounter Location Date Diagnosis [facility] [id number] [address] Feb, Arthritis M19.90 [facility] [id number] [address] Jan, Arthritis M19.90 [facility] [address] [address] Jan, Back pain M54.9 and Arthritis M19.90 [facility] [id number] [address] 1184 Jan, [facility] [address] [facility] [id number] [address] Jan, Back pain M54.9 [facility] [address] [place] [address] 96136- 7210 Jan, Arthritis M19.90 [facility] [address] [place] [address] 28732- 2858 Jan, Back pain M54.9 [facility] [id number] [place] [address] 17560- 1562 Jan, [facility] [id number] [place] [address] 60933- 1662 Jan, Back pain M54.9 [facility] [id number] [place] [address] 70544- 7794 Dec, Ingrowing nail with infection L60.0 and Onychomycosis B35.1 [facility] [address] [place] [address] 64979- 4055 Dec, Arthritis M19.90 [facility] [id number] [place] [address] 60037- 6465 Dec, Ingrowing nail L60.0 [facility] [id number] [place] [address] 83996- 1347 Dec, Back pain M54.9 [facility] [id number] [address] Dec, [facility] [address] [facility] [id number] [address] 4333 Dec, Back pain M54.9 [facility] [id number] [place] [address] 75990- 8101 Nov, Arthritis M19.90 [facility] [id number] [address]- 9078 Nov, [facility] [id number] [place] [address] 79838- 3772 Nov, Arthritis M19.90 ; Anemia D64.9 ; Restrictive lung disease J98.4 ; Weakness R53.1 and BMI 50.0-59.9, adult Z68.43 [facility] [id number] [place] [address] 57741- 0549 Nov, Arthritis M19.90 [facility] [id number] [place] [address] 18711- 0357 Nov, Back pain M54.9 [facility] [address] 34001- 8020 October, Back pain M54.9 [facility] [id number] [place] [address] 98124- 3814 October, Back pain M54.9 [facility] [id number] [place] [address] 29508- 2451 Sep, Back pain M54.9 [facility] [id number] [place] [address] 78334- 8567 Sep, Back pain M54.9 [facility] [id number] [place] [address] 58687 -9370 Sep, [facility] [id number] [place] [address] 81173 -8172 Sep, [facility] [id number] [place] [address] 46751 -2204 Sep, Swelling of right lower extremity M79.89 and Cellulitis of right lower extremity L03.115 [facility] [id number] [place] [address] 91680- 7354 Aug, Back pain M54.9 [facility] [id number] [place] [address] 67301- 1234 15 Aug, 2017 Back pain M54.9 [facility] [id number] [place] [address] 83487- 4162 Aug, [place] [id number] [place] [address] 97796- 0037 Aug, Cellulitis of right lower extremity L03.115 ; Ventral hernia without obstruction or gangrene K43.9 and BMI 50.0-59.9, adult Z68.43 [place] [id number] [place] [address] 33740- 1677 28 Jul, 2017 Back pain M54.9 [place] [id number] [place] [address] 25799- 9656 Jul, prison (current) 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 Z79.891 ; Arthritis M19.90 ; Back pain M54.9 ; Prediabetes R73.09 ; Hypothyroidism E03.9 ; Coronary artery disease involving cabazon coronary artery of cabazon heart without angina pectoris I25.10 and Anemia D64.9 [place] [id number] [place] [address] 21400- 6148 27 Jul, 2017 prison (current) 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 Z79.891 ; Back pain M54.9 ; Arthritis M19.90 ; Prediabetes R73.09 ; Hypothyroidism E03.9 ; Coronary artery disease involving cabazon coronary artery of cabazon heart without angina pectoris I25.10 ; Anemia D64.9 and BMI 45.0-49.9, adult Z68.42 [place] [id number] [place] [address] 48830- 8928 15 Jul, 2017 Back pain M54.9 [place] [id number] [place] [address] 32755- 5049 05 Jul, 2017 Back pain M54.9 [place] [id number] [place] [address] 64515- 3766 Jun, Back pain M54.9 [place] [id number] [place] [address] 40308- 9596 Jun, Back pain M54.9 [facility] [address] [place] [address] 44208 -8092 May, Skin cancer of face C44.300 and BMI 45.0-49.9, adult Z68.42 [facility] [id number] [place] [address] 52895- 1388 May, [facility] [address] 06628- 0908 May, Back pain M54.9 [facility] [id number] [place] [address] 51777- 3425 May, Back pain M54.9 [facility] [address] 95652- 2277 May, Back pain M54.9 [facility] [id number] [place] [address] 19195- 7328 Apr, Back pain M54.9 [facility] [id number] [place] [address] 04026- 3724 Apr, Back pain M54.9 [facility] [address] 51358- 7317 Mar, Back pain M54.9 [facility] [id number] [place] [address] 68084- 6914 Mar, Anemia D64.9 ; Encounter for immunization Z23 ; Arthritis M19.90 and Right inguinal hernia K40.90 [facility] [id number] [place] [address] 64678- 1081 Mar, Back pain M54.9 [facility] [id number] [place] [address] 75811- 6296 22 Feb, 2017 Back pain M54.9 [facility] [id number] [place] [address] 05192- 4115 13 Feb, 2017 Back pain M54.9 [facility] [address] [place] [address]- 3111 Jan, Back pain M54.9 [facility] [address] [facility] [id number] [place] [address] 61688 2546 Jan, Back pain M54.9 [facility] [id number] [place] [address] 70244 2546 Jan, [facility] [id number] [place] [address] 46297 2546 Jan, Back pain M54.9 [facility] [id number] [place] [address] 79294 2546 Dec, Back pain M54.9 [facility] [id number] [place] [address] 68676- 8901 Dec, Back pain M54.9 [facility] [id number] [place] [address] 78091- 5786 Dec, [facility] [id number] [place] [address] 29828 2549 Nov, Hypokalemia E87.6 [facility] [id number] [place] [address] 63062 2546 Nov, Back pain M54.9 [facility] [id number] [place] [address] 78384 2546 Nov, [facility] [id number] [place] [address] 76333 2546 Nov, Arthritis M19.90 [facility] [id number] [place] [address] 09825 2546 Nov, Back pain M54.9 [facility] [id number] [place] [address] 79008 2546 Nov, Generalized edema R60.1 [facility] [id number] [place] [address] 49767 2546 Nov, Back pain M54.9 [place] [id number] [place] [address] 39284- 8415 07 Nov, 2016 Pain in right knee M25.561 [place] [id number] [place] [address] 87205- 9275 05 Nov, 2016 Encounter for removal of sutures Z48.02 and Pain in right knee M25.561 [facility] [place] [address] 41719 -1858 Nov, Abrasion of right foot, subsequent encounter S90.811D [facility] [place] [id number] [place] [address] 29685 -1399 October, Toe abrasion, right, initial encounter S90.414A [place] [id number] [place] [address] 85552- 6077 October, [place] [address] 34001- 3708 October, Back pain M54.9 [place] [id number] [place] [address] 36748- 4245 October, Venous insufficiency I87.2 [place] [id number] [place] [address] 97044- 3620 October, Pain in right knee M25.561 [place] [id number] [place] [address] 93126- 4555 Sep, Back pain M54.9 [place] [id number] [place] [address] 76154- 0653 Sep, Venous insufficiency I87.2 [facility] [address] [id number] Sep, [facility] [id number] [place] [address] 80602 -7095 Sep, Leg edema, right R60.0 and Cellulitis of right lower extremity L03.115 [place] [address] [place] [address]- 3297 14 Sep, 2016 Pedal edema R60.0 [facility] [address] 46017- 6387 04 Sep, 2016 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 ; Pain in right knee M25.561 and Arthritis M19.90 [place] [address] 45340- 3742 Aug, Back pain M54.9 [facility] [address] 56826- 2935 Aug, Back pain M54.9 [place] [address] 96210- 2378 Aug, [place] [address] 10210- 2647 Aug, Type 2 diabetes mellitus without complication E11.9 ; Restrictive lung disease J98.4 ; Arthritis M19.90 ; Back pain M54.9 ; Body mass index (BMI) of 45.0-49.9 in adult Z68.42 and Morbid (severe) obesity due to excess calories E66.01 [place] [id number] [place] [address] 19235- 9909 Aug, Back pain M54.9 [facility] [id number] [place] [address] 12834- 2189 Aug, Back pain M54.9 [facility] [id number] [place] [address] 03845- 4387 Jul, [place] [id number] [place] [address] 87483- 8423 Jul, Back pain M54.9 [facility] [id number] [place] [address] 92888- 0329 Jul, Back pain M54.9 [facility] [address] 26800- 8756 Jun, Back pain M54.9 [facility] [address] [facility] [id number] [place] [address] 83255 2546 Jun, Back pain M54.9 [facility] [address] [facility] [id number] [place] [address] 39010 2546 May, Back pain M54.9 [facility] [address] [id number] [place] [address] 42369 2546 16 May, 2016 Back pain M54.9 [facility] [address] [id number] [place] [address] 76055 2546 May, Back pain M54.9 [facility] [address] [id number] [place] [address] 34344 2546 May, Back pain M54.9 [facility] [address] [facility] [id number] [place] [address] 54517 2546 May, [facility] [address] [id number] [place] [address] 14299 2540 May, Back pain M54.9 and Pain in right knee M25.561 [facility] [address] [facility] [id number] [place] [address] 63744 2540 Apr, [facility] [id number] [place] [address] 20888- 8904 Apr, Type 2 diabetes mellitus without complication E11.9 ; Pain in right knee M25.561 and Pain in left knee M25.562 [facility] [address] [facility] [id number] [address] 2546 Mar, [facility] [address] [facility] [id number] [place] [address] 49165 2546 Mar, [facility] [address] [facility] [id number] [address]- 2546 Mar, [facility] [address] [facility] [id number] [place] [address] 72495- 3569 Mar, Restrictive lung disease J98.4 ; Anemia D64.9 and Cor pulmonale I27.81 [facility] [id number] [place] [address], [place] [address]- 7664 17 Mar, 2016 [facility] [address] [facility] [id number] [place] [address] 01869- 5675 14 Mar, 2016 [facility] [address] [facility] [id number] [place] [address] 17610- 5577 Mar, [facility] [address] [facility] [id number] [place] [address] 88937- 1820 30 Feb, 2016 [facility] [id number] [place] [address], [place] [address]- 8042 29 Feb, 2016 [facility] [id number] [place] [address] 36440- 9376 28 Feb, 2016 [facility] [id number] [place] [address] 48179- 6724 27 Feb, 2016 Restrictive lung disease J98.4 [facility] [address] [facility] [id number] [place] [address], [place] [address]- 1526 23 Feb, 2016 [facility] [address] [facility] [id number] [place] [address] -2718 22 Feb, 2016 [facility] [address] [address]- 6283 16 Feb, 2016 [facility] [id number] [address]- 0838 Jan, [facility] [address] [facility] [id number] [place] [address]- 3418 Jan, [facility] [address] [facility] [id number] [place] [address] 69976- 9621 Jan, [facility] [id number] [address]- 6744 Jan, [facility] [id number] [place] [address] 32880- 6125 Jan, Restrictive lung disease J98.4 ; Anemia D64.9 and Cor pulmonale I27.81 [facility] [id number] [place] [address] 16090- 3813 Dec, [facility] [address] 92610- 9498 Dec, [facility] [address] 70229- 5490 Nov, Arthritis M19.90 and Hypokalemia E87.6 [facility] [address] 50299- 7501 Nov, Back pain M54.9 [facility] [id number] [place] [address] 28025- 2774 October, Back pain M54.9 [facility] [address] 96257- 4398 October, Back pain M54.9 [facility] [id number] [place] [address] 18811- 5903 Sep, Scabies exposure Z20.89 [facility] [id number] [place] [address] 86826- 0959 Sep, Restrictive lung disease J98.4 [facility] [id number] [place] [address] 63316- 1529 Sep, Back pain M54.9 [facility] [id number] [place] [address] 80652- 6801 Sep, Restrictive lung disease J98.4 [facility] [id number] [place] [address] 41416- 8205 Aug, [facility] [id number] [place] [address] 48004- 0565 Aug, [facility] [address] 77196- 6874 Aug, [facility] [address] [place] [address] 07931- 4051 Aug, [facility] [id number] [place] [address] 02924- 3839 Aug, Back pain M54.9 [facility] [id number] [place] [address] 50606- 1581 Jul, Anemia D64.9 and Prediabetes R73.09 [facility] [id number] [place] [address] 00739- 1328 Jul, Back pain M54.9 [facility] [id number] [place] [address] 73812- 3849 Jul, Back pain M54.9 [facility] [id number] [place] [address] 02343- 3869 Jul, [facility] [id number] [place] [address] 94900- 7372 05 Jul, 2015 Bronchitis J40 and Anemia D64.9 [facility] [id number] [place] [address] 02807- 1652 Jun, [facility] [address] [place] [address] 50080- 3623 Jun, [facility] [id number] [place] [address] 42134- 2763 Jun, Bronchitis J40 and Anemia D64.9 [facility] [id number] [place] [address] 45198- 9346 Jun, [facility] [id number] [place] [address] 32804- 0704 Jun, Back pain M54.9 [facility] [id number] [place] [address] 66627- 4850 Jun, Anemia D64.9 [facility] [address] [place] [address] 02755- 8339 Jun, Restrictive lung disease J98.4 ; Anemia D64.9 ; Hypothyroidism E03.9 ; Cor pulmonale I27.81 and Back pain M54.9 [facility] [id number] [place] [address] 24941- 3716 May, [facility] [address] 57990- 0957 Apr, Anemia D64.9 ; Encounter for immunization Z23 and Restrictive lung disease J98.4 [facility] [address] 81915- 7096 Apr, [facility] [id number] [place] [address] 94565- 4297 Mar, [facility] [address] 34421- 6847 Mar, Iron deficiency anemia D50.9 [facility] [id number] [place] [address] 62025- 4567 Mar, [facility] [id number] [place] [address] 58910- 8442 Mar, [facility] [id number] [place] [address] 97051- 6789 Mar, Anemia D64.9 [facility] [id number] [place] [address] 45447- 5072 Mar, [facility] [id number] [place] [address] 27341- 6553 Mar, Anemia D64.9 [facility] [id number] [place] [address] 49926- 1657 Mar, Restrictive lung disease J98.4 and Anemia D64.9 [facility] [id number] [place] [address] 01641- 0421 Mar, [facility] [id number] [place] [address] 14582- 9766 Mar, Anemia D64.9 [facility] [id number] [place] [address] 76065- 2660 Mar, Anemia D64.9 [facility] [id number] [place] [address] 99176- 1897 Mar, [facility] [id number] [place] [address] 15048- 8152 Mar, Diabetes mellitus E11.9 ; Bronchitis J40 and Anemia D64.9 [facility] [id number] [place] [address] 64615- 6268 Feb, [facility] [id number] [place] [address] 68709- 5209 Feb, [facility] [address] [address]- 5519 Feb, [facility] [id number] [place] [address] 64481- 6665 Feb, [facility] [id number] [place] [address] 56807- 3756 Jan, [facility] [id number] [place] [address] 74824- 2267 Jan, [facility] [id number] [place] [address] 83687- 2607 Dec, Venous insufficiency 459.81 [facility] [id number] [place] [address] 44736- 4185 Dec, [facility] [id number] [place] [address] 07922- 7191 Dec, [facility] [id number] [place] [address] 01828- 1059 Dec, Coronary atherosclerosis of unspecified type of vessel, cabazon or graft 414.00 ; Unspecified anemia 285.9 and Generalized osteoarthrosis , unspecified site 715.00 [facility] [id number] [address] Nov, [facility] [id number] [address] Nov, [facility] [id number] [address] 4[address] Nov, [facility] [id number] [place] [address] 34252- 4255 October, [facility] [address] [address]25 October, Acute bronchitis 466.0 and Shortness of breath 786.05 [facility] [address] [address] Sep, [facility] [id number] [place] [address] 76249- 9556 Sep, [facility] [address] [address] 8383 Aug, [facility] [id number] [address] 7908 Aug, [facility] [id number] [address] 0363 Jul, [facility] [id number] [address] Jul, [facility] [address] [id number] [address] Jul, [facility] [id number] [address] Jul, [facility] [id number] [address] Jun, [facility] [id number] [address] Jun, [facility] [place] [facility] [address] [id number] [place] [address] Jun, [facility] [place] [facility] [address] [id number] [place] [address] 54[address] Jun, [facility] [place] [facility] [address] [id number] [place] [address] 9442 Jun, [facility] [place] [facility] [address] [id number] [place] [address] 4030 Jun, [facility] [place] [facility] [address] [id number] [place] [address]- 2570 May, [facility] [place] [facility] [address] [id number] [place] [address]- 7985 May, [facility] [place] [facility] [address] [id number] [place] [address]- 9648 May, [facility] [place] [facility] [address] [id number] [place] [address]- 6020 May, [facility] [place] [facility] [address] [id number] [place] [address]- 1071 Apr, [facility] [place] [facility] [address] [id number] [place] [address]- 5370 Apr, [facility] [place] [facility] [address] [id number] [place] [address] 04[address] Apr, [facility] [place] [facility] [address] [id number] [place] [address] 30[address] Apr, [facility] [place] [facility] [address] [id number] [place] [address]- 4267 Apr, [facility] [place] [facility] [address] [id number] [place] [address]- 0895 Apr, [facility] [place] [facility] [address] [id number] [place] [address]- 4075 Mar, [facility] [place] [facility] [address] [id number] [place] [address]- 5639 Mar, [facility] [place] [facility] [address] [id number] [place] [address]- 5405 Mar, [facility] [place] [facility] [address] [id number] [place] [address]- 1004 Mar, [facility] [place] [facility] [address] [id number] [place] [address] Mar, [facility] [place] [facility] [address] [id number] [place] [address]- 8453 Mar, [facility] [place] [facility] [address] [id number] [place] [address]- 9016 Mar, [facility] [place] [facility] [address] [id number] [place] [address]- 9683 Mar, [facility] [place] [facility] [address] [id number] [place] [address]- 9869 Feb, [facility] [place] [facility] [address] [id number] [place] [address] 3913 Feb, [facility] [place] [facility] [address] [id number] [place] [address]- 0894 Jan, [facility] [place] [facility] [address] [id number] [place] [address]- 7183 Jan, [facility] [place] [facility] [address] [id number] [place] [address]- 0229 Jan, [facility] [place] [facility] [address] [id number] [place] [address]- 7586 Jan, [facility] [place] [facility] [address] [id number] [place] [address]- 3638 Jan, [facility] [place] [facility] [address] [id number] [place] [address]- 5680 Jan, [facility] [place] [facility] [address] [id number] [place] [address]- 5764 Dec, [facility] [place] [facility] [address] [id number] [place] [address]- 3505 Dec, [facility] [place] [facility] [address] [id number] [place] [address]- 4121 Dec, [facility] [place] [facility] [address] [id number] [place] [address]- 4428 Dec, [facility] [place] [facility] [address] [id number] [place] [address]- 0755 Nov, [facility] [place] [facility] [address] [id number] [place] [address]- 1837 Nov, [facility] [place] [facility] [address] [id number] [place] [address]- 5921 Nov, [facility] [place] [facility] [address] [id number] [place] [address]- 0980 Nov, [facility] [place] [facility] [address] [id number] [place] [address]- 5568 Nov, [facility] [place] [facility] [address] [id number] [place] [address]- 5204 Nov, [facility] [place] [facility] [address] [id number] [place] [address]- 8300 Nov, [facility] [place] [facility] [address] [id number] [place] [address]- 9285 Nov, [facility] [place] [facility] [address] [id number] [place] [address]- 6586 Nov, [facility] [place] [facility] [address] [id number] [place] [address]- 2552 Nov, [facility] [place] [facility] [address] [id number] [place] [address]- 5585 Nov, [facility] [place] [facility] [address] [id number] [place] [address]- 5887 Nov, [facility] [place] [facility] [address] [id number] [place] [address]- 3783 October, [facility] [place] [facility] [address] [id number] [place] [address]- 8721 October, [facility] [place] [facility] [address] [id number] [place] [address]- 7375 October, [facility] [place] [facility] [address] [id number] [place] [address]- 3891 October, [facility] [place] [facility] [address] [id number] [place] [address]- 5452 October, [facility] [place] [facility] [address] [id number] [place] [address]- 9207 October, [facility] [place] [facility] [address] [id number] [place] [address]- 5923 October, [facility] [place] [facility] [address] [id number] [place] [address]- 3409 October, [facility] [place] [facility] [address] [id number] [place] [address]- 3877 October, [facility] [place] [facility] [address] [id number] [place] [address]- 9724 Sep, [facility] [place] [facility] [address] [id number] [place] [address]- 6973 Sep, [facility] [place] [facility] [address] [id number] [place] [address]- 0216 Sep, [facility] [place] [facility] [address] [id number] [place] [address]- 1312 Sep, [facility] [place] [facility] [address] [id number] [place] [address]- 1513 Sep, [facility] [place] [facility] [address] [id number] [place] [address]- 9128 Sep, [facility] [place] [facility] [address] [id number] [place] [address]- 7727 Aug, [facility] [place] [facility] [address] [id number] [place] [address]- 2308 Aug, [facility] [place] [facility] [address] [id number] [place] [address]- 3821 Aug, [facility] [place] [facility] [address] [id number] [place] [address]- 6418 Aug, [facility] [place] [facility] [address] [id number] [place] [address]- 0712 Aug, [facility] [place] [facility] [address] [id number] [place] [address]- 9839 Aug, [facility] [place] [facility] [address] [id number] [place] [address]- 6810 Aug, [facility] [place] [facility] [address] [id number] [place] [address]- 6383 Aug, [facility] [place] [facility] [address] [id number] [place] [address]- 6432 Aug, [facility] [place] [facility] [address] [id number] [place] [address]- 2342 Aug, [facility] [place] [facility] [address] [id number] [place] [address]- 3190 Jul, [facility] [place] [facility] [address] [id number] [place] [address]- 9677 Jul, [facility] [place] [facility] [address] [id number] [place] [address]- 9290 Jun, [facility] [place] [facility] [address] [id number] [place] [address]- 8663 Jun, [facility] [place] [facility] [address] [id number] [place] [address]- 9815 Jun, [facility] [place] [facility] [address] [id number] [place] [address]- 8133 Jun, [facility] [place] [facility] [address] [id number] [place] [address]- 8442 Jun, [facility] [address] [id number] [place] [address]- 7041 Jun, [facility] [place] [facility] [address] [id number] [place] [address]- 7726 Jun, [facility] [place] [facility] [address] [id number] [place] [address]- 2330 Jun, [facility] [place] [facility] [address] [id number] [place] [address]- 1744 May, [facility] [place] [facility] [address] [id number] [place] [address]- 9412 May, [facility] [place] [facility] [address] [id number] [place] [address]- 5872 May, [facility] [place] [facility] [address] [id number] [place] [address]- 7575 May, [facility] [place] [facility] [address] [id number] [place] [address]- 3759 May, [facility] [place] [facility] [address] [id number] [place] [address]- 3123 May, [facility] [place] [facility] [address] [id number] [place] [address]- 7110 May, [facility] [place] [facility] [address] [id number] [place] [address]- 9846 May, [facility] [place] [facility] [address] [id number] [place] [address]- 2621 May, [facility] [place] [facility] [address] [id number] [place] [address]- 8349 Apr, [facility] [place] [facility] [address] [id number] [place] [address]- 2881 Apr, [facility] [place] [facility] [address] [id number] [place] [address]- 8980 Apr, [facility] [place] [facility] [address] [id number] [place] [address]- 7918 Apr, 2012 [facility] [place] [facility] [address] [id number] [place] [address]- 9345 30 Mar, 2012 [facility] [place] [facility] [address] [id number] [place] [address]- 1301 30 Mar, 2012 [facility] [place] [facility] [address] [id number] [place] [address]- 9917 30 Mar, 2012 [facility] [place] [facility] [address] [id number] [place] [address]- 4844 30 Mar, 2012 [facility] [place] [facility] [address] [id number] [place] [address]- 0110 30 Mar, 2012 [facility] [place] [facility] [address] [id number] [place] [address]- 6715 30 Mar, 2012 [facility] [place] [facility] [address] [id number] [place] [address]- 6947 Mar, 2012 [facility] [place] [facility] [address] [id number] [place] [address]- 7677 Mar, 2012 [facility] [place] [facility] [address] [id number] [place] [address]- 4553 Mar, 2012 [facility] [place] [facility] [address] [id number] [place] [address]- 9336 Mar, 2012 [facility] [place] [facility] [address] [id number] [place] [address]- 8872 18 Mar, 2012 [facility] [place] [facility] [address] [id number] [place] [address]- 4758 Mar, 2012 [facility] [place] [facility] [address] [id number] [place] [address]- 8140 Mar, 2012 [facility] [place] [facility] [address] [id number] [place] [address]- 1517 Mar, 2012 [facility] [place] [facility] [address] [id number] [place] [address]- 5873 Mar, 2012 [facility] [place] [facility] [address] [id number] [place] [address]- 3558 18 Mar, 2012 [facility] [place] [facility] [address] [id number] [place] [address]- 3387 17 Mar, 2012 [facility] [place] [facility] [address] [id number] [place] [address]- 9579 17 Mar, 2012 [facility] [place] [facility] [address] [id number] [place] [address]- 4664 15 Mar, 2012 [facility] [place] [facility] [address] [id number] [place] [address]- 1112 15 Mar, 2012 [facility] [place] [facility] [address] [id number] [place] [address]- 9832 14 Mar, 2012 [facility] [place] [facility] [address] [id number] [place] [address]- 6546 14 Mar, 2012 [facility] [place] [facility] [address] [id number] [place] [address]- 8350 14 Mar, 2012 [facility] [place] [facility] [address] [id number] [place] [address]- 9771 14 Mar, 2012 [facility] [place] [facility] [address] [id number] [place] [address]- 6454 12 Mar, 2012 [facility] [place] [facility] [address] [id number] [place] [address]- 9955 11 Mar, 2012 [facility] [place] [facility] [address] [id number] [place] [address]- 6866 11 Mar, 2012 [facility] [place] [facility] [address] [id number] [place] [address]- 4326 10 Mar, 2012 [facility] [place] [facility] [address] [id number] [place] [address]- 6442 10 Mar, 2012 [facility] [place] [facility] [address] [id number] [place] [address]- 3198 10 Mar, 2012 [facility] [place] [facility] [address] [id number] [place] [address]- 0465 Mar, [facility] [place] [facility] [address] [id number] [place] [address]- 2364 Mar, [facility] [place] [facility] [address] [id number] [place] [address]- 1909 Mar, [facility] [place] [facility] [address] [id number] [place] [address]- 5878 Feb, [facility] [place] [facility] [address] [id number] [place] [address]- 8536 Feb, [facility] [place] [facility] [address] [id number] [place] [address]- 4896 Feb, [facility] [place] [facility] [address] [id number] [place] [address]- 7456 Feb, [facility] [place] [facility] [address] [id number] [place] [address]- 5843 Jan, [facility] [place] [facility] [address] [id number] [place] [address]- 3084 Jan, [facility] [place] [facility] [address] [id number] [place] [address]- 8354 Jan, [facility] [place] [facility] [address] [id number] [place] [address]- 6825 Jan, [facility] [place] [facility] [address] [id number] [place] [address]- 9008 Jan, [facility] [place] [facility] [address] [id number] [place] [address]- 9281 Jan, [facility] [place] [facility] [address] [id number] [place] [address]- 1904 Dec, [facility] [place] [facility] [address] [id number] [place] [address]- 3711 Dec, [facility] [place] [facility] [address] [id number] [place] [address]- 7072 Dec, [facility] [place] [facility] [address] [id number] [place] [address]- 1930 Dec, [facility] [address] [id number] [place] [address]- 9846 Dec, [facility] [address] [id number] [place] [address]- 8269 Dec, [facility] [address] [id number] [place] [address]- 2027 Dec, [facility] [address] [id number] [place] [address]- 5782 Dec, [facility] [address] [id number] [place] [address]- 2567 Dec, [facility] [address] [id number] [place] [address]- 9157 Dec, [facility] [address] [id number] [place] [address]- 2964 Dec, [facility] [address] [id number] [place] [address]- 4240 October, [facility] [address] [id number] [place] [address]- 0958 October, [facility] [address] [id number] [place] [address]- 3495 October, [facility] [address] [id number] [place] [address]- 8482 October, [facility] [address] [id number] [place] [address]- 5162 Sep, [facility] [address] [id number] [place] [address]- 9997 Sep, [facility] [address] [id number] [place] [address]- 2975 Sep, [facility] [address] [id number] [place] [address]- 7538 Sep, [facility] [address] [id number] [address]- 8450 Sep, [facility] [address] [id number] [address]- 6138 Sep, [facility] [address] [id number] [address]- 2019 Sep, [facility] [address] [id number] [address]- 2007 Sep, [facility] [address] [id number] [address]- 9367 Sep, [facility] [address] [id number] [address]- 1684 Sep, [facility] [address] [id number] [address]- 5929 Sep, IMMUNIZATIONS No Known Immunizations SOCIAL HISTORY Never Assessed REASON FOR VISIT Controlled Med Refill PLAN OF CARE VITAL SIGNS MEDICATIONS Unknown [...] problems 09/2015 Hospitalization History Acute dyspnea, muscle cramps--[facility] 03/04/16 Hospitalization History RLE Cellulitis, Hypokalemia, anemia-[facility] 09/29/15 Hospitalization History Lower edema 09/2016 Hospitalization History Received stitches ER 10/2016
--- OUTSIDE RECORDS SUMMARY | 2018-03-19 23:51 | XMS REPORT ---
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.10 Active 8910487838801 Problem Skin cancer of face C44.300 Active 174577895 Problem Morbid (severe) obesity due to excess calories E66.01 Active 950097279 Problem Body mass index (BMI) of 45.0-49.9 in adult Z68.42 Active 395509511 Problem Venous insufficiency I87.2 Active 97035059 Problem 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 Active 713247567 Problem Anemia D64.9 Active 948325511 Problem Cor pulmonale I27.81 Active 39922617 Problem Back pain M54.9 Active 774404026 Problem Restrictive lung disease J98.4 Active 26220772 Problem Hypothyroidism E03.9 Active 61904964 ALLERGIES No Information ENCOUNTERS Encounter Location Date Diagnosis [facility] [id number] [address] Feb, Arthritis M19.90 [facility] [id number], [place] [address] Jan, Arthritis M19.90 [facility] [address] [address] Jan, Back pain M54.9 and Arthritis M19.90 [facility] [id number], [place] [address] Jan, [facility] [address] [facility] [id number] [address] Jan, Back pain M54.9 [facility] [id number] [place] [address] 60807- 4531 Jan, Arthritis M19.90 [facility] [id number] [place] [address] 34453- 2382 Jan, Back pain M54.9 [facility] [id number] [place] [address] 32338- 7488 Jan, [facility] [id number] [place] [address] 14339- 6982 Jan, Back pain M54.9 [facility] [id number] [place] [address] 81202- 0425 Dec, Ingrowing nail with infection L60.0 and Onychomycosis B35.1 [facility] [id number] [place] [address] 29282- 7891 Dec, Arthritis M19.90 [facility] [id number] [place] [address] 09744- 9381 Dec, Ingrowing nail L60.0 [facility] [id number] [place] [address] 73452- 6135 Dec, Back pain M54.9 [facility] [id number], [place] [address] Dec, [facility] [address] [facility] [id number], [place] [address]- 9060 Dec, Back pain M54.9 [facility] [id number] [place] [address] 65001- 0205 Nov, Arthritis M19.90 [facility] [id number], [place] [address] 3[address] Nov, [facility] [id number] [place] [address] 52495- 9036 Nov, Arthritis M19.90 ; Anemia D64.9 ; Restrictive lung disease J98.4 ; Weakness R53.1 and BMI 50.0-59.9, adult Z68.43 [facility] [id number] [place] [address] 41665- 8270 Nov, Arthritis M19.90 [facility] [id number] [place] [address] 31849- 4501 Nov, Back pain M54.9 [facility] [address] 99923- 5854 October, Back pain M54.9 [facility] [id number] [place] [address] 27938- 7318 October, Back pain M54.9 [facility] [id number] [place] [address] 17281- 2814 Sep, Back pain M54.9 [facility] [id number] [place] [address] 10979- 5363 Sep, Back pain M54.9 [facility] [id number] [place] [address] 57740 -9376 Sep, [facility] [id number] [place] [address] 52364 -7827 Sep, [facility] [id number] [place] [address] 27832 -4335 Sep, Swelling of right lower extremity M79.89 and Cellulitis of right lower extremity L03.115 [facility] [id number] [place] [address] 12147- 5997 Aug, Back pain M54.9 [facility] [id number] [place] [address] 84520- 3949 15 Aug, 2017 Back pain M54.9 [facility] [id number] [place] [address] 18616- 8567 Aug, [place] [id number] [place] [address] 04016- 8291 Aug, Cellulitis of right lower extremity L03.115 ; Ventral hernia without obstruction or gangrene K43.9 and BMI 50.0-59.9, adult Z68.43 [facility] [id number] [place] [address] 26848- 0682 28 Jul, 2017 Back pain M54.9 [facility] [id number] [place] [address] 77785- 0158 Jul, assisted (current) 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 Z79.891 ; Arthritis M19.90 ; Back pain M54.9 ; Prediabetes R73.09 ; Hypothyroidism E03.9 ; 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 pectoris I25.10 and Anemia D64.9 [facility] [id number] [place] [address] 84013- 9668 27 Jul, 2017 assisted (current) 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 Z79.891 ; Back pain M54.9 ; Arthritis M19.90 ; Prediabetes R73.09 ; Hypothyroidism E03.9 ; 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 pectoris I25.10 ; Anemia D64.9 and BMI 45.0-49.9, adult Z68.42 [facility] [id number] [place] [address] 39650- 9744 15 Jul, 2017 Back pain M54.9 [facility] [facility] [id number] [place] [address] 99811- 0134 05 Jul, 2017 Back pain M54.9 [facility] [id number] [place] [address] 30331- 4400 Jun, Back pain M54.9 [facility] [facility] [id number] [place] [address] 63259- 1763 Jun, Back pain M54.9 [facility] [address] [place] [address] 07309 -8481 May, Skin cancer of face C44.300 and BMI 45.0-49.9, adult Z68.42 [facility] [id number] [place] [address] 01622- 7462 May, [facility] [address] 75844- 8791 May, Back pain M54.9 [facility] [id number] [place] [address] 84582- 6796 May, Back pain M54.9 [facility] [address] 44024- 4781 May, Back pain M54.9 [facility] [id number] [place] [address] 49929- 7659 Apr, Back pain M54.9 [facility] [id number] [place] [address] 84476- 8624 Apr, Back pain M54.9 [facility] [address] 19759- 3425 Mar, Back pain M54.9 [facility] [id number] [place] [address] 47853- 1522 Mar, Anemia D64.9 ; Encounter for immunization Z23 ; Arthritis M19.90 and Right inguinal hernia K40.90 [facility] [id number] [place] [address] 01587- 3635 Mar, Back pain M54.9 [facility] [id number] [place] [address] 04361- 8472 22 Feb, 2017 Back pain M54.9 [facility] [id number] [place] [address] 94404- 6930 13 Feb, 2017 Back pain M54.9 [facility] [address] [place] [address]- 6640 Jan, Back pain M54.9 [facility] [address] [facility] [id number] [place] [address] 65828 2546 Jan, Back pain M54.9 [facility] [id number] [place] [address] 91601 2546 Jan, [facility] [id number] [place] [address] 40116 2546 Jan, Back pain M54.9 [facility] [id number] [place] [address] 44096 2546 Dec, Back pain M54.9 [facility] [id number] [place] [address] 66127- 5658 Dec, Back pain M54.9 [facility] [id number] [place] [address] 62741- 0766 Dec, [facility] [id number] [place] [address] 66425 2548 Nov, Hypokalemia E87.6 [facility] [id number] [place] [address] 68300 2546 Nov, Back pain M54.9 [facility] [id number] [place] [address] 21592 2546 Nov, [facility] [id number] [place] [address] 59569 2546 Nov, Arthritis M19.90 [facility] [id number] [place] [address] 94550 2546 Nov, Back pain M54.9 [facility] [id number] [place] [address] 18074 2546 Nov, Generalized edema R60.1 [facility] [id number] [place] [address] 09964 2546 Nov, Back pain M54.9 [place] [id number] [place] [address] 23657- 5657 07 Nov, 2016 Pain in right knee M25.561 [facility] [id number] [place] [address] 84086- 3469 05 Nov, 2016 Encounter for removal of sutures Z48.02 and Pain in right knee M25.561 [facility] [place] [address] 22127 -3114 Nov, Abrasion of right foot, subsequent encounter S90.811D [facility] [place] [id number] [place] [address] 35993 -2373 October, Toe abrasion, right, initial encounter S90.414A [place] [id number] [place] [address] 74132- 9142 October, [place] [address] 88144- 6616 October, Back pain M54.9 [place] [facility] [id number] [place] [address] 92974- 4394 October, Venous insufficiency I87.2 [facility] [id number] [place] [address] 58158- 3692 October, Pain in right knee M25.561 [place] [id number] [place] [address] 70440- 6985 Sep, Back pain M54.9 [place] [id number] [place] [address] 41260- 4753 Sep, Venous insufficiency I87.2 [facility] [address] [id number] Sep, [facility] [id number] [place] [address] 48354 -0426 Sep, Leg edema, right R60.0 and Cellulitis of right lower extremity L03.115 [place] [place] [address] [address]- 0099 14 Sep, 2016 Pedal edema R60.0 [facility] [address] 39649- 6748 04 Sep, 2016 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 ; Pain in right knee M25.561 and Arthritis M19.90 [place] [address] 50801- 6781 Aug, Back pain M54.9 [facility] [address] 43830- 8202 Aug, Back pain M54.9 [place] [address] 78308- 2810 Aug, [place] [address] 13280- 8579 Aug, Type 2 diabetes mellitus without complication E11.9 ; Restrictive lung disease J98.4 ; Arthritis M19.90 ; Back pain M54.9 ; Body mass index (BMI) of 45.0-49.9 in adult Z68.42 and Morbid (severe) obesity due to excess calories E66.01 [place] [id number] [place] [address] 54054- 4254 Aug, Back pain M54.9 [facility] [id number] [place] [address] 22453- 8175 Aug, Back pain M54.9 [facility] [id number] [place] [address] 76087- 8147 Jul, [place] [id number] [place] [address] 51439- 0379 Jul, Back pain M54.9 [facility] [id number] [place] [address] 79574- 0910 Jul, Back pain M54.9 [facility] [address] 04677- 8545 Jun, Back pain M54.9 [facility] [address] [facility] [id number] [place] [address] 68543 2546 Jun, Back pain M54.9 [facility] [address] [facility] [id number] [place] [address] 95883 2546 May, Back pain M54.9 [facility] [address] [facility] [id number] [place] [address] 55344 2546 16 May, 2016 Back pain M54.9 [facility] [address] [facility] [id number] [place] [address] 42296 2546 May, Back pain M54.9 [facility] [address] [facility] [id number] [place] [address] 95191 2546 May, Back pain M54.9 [facility] [address] [facility] [id number] [place] [address] 34539 2546 May, [facility] [address] [facility] [id number] [place] [address] 94168 2545 May, Back pain M54.9 and Pain in right knee M25.561 [facility] [address] [facility] [id number] [place] [address] 34386 2540 Apr, [facility] [id number] [place] [address] 49490- 9113 Apr, Type 2 diabetes mellitus without complication E11.9 ; Pain in right knee M25.561 and Pain in left knee M25.562 [facility] [address] [facility] [id number] [address] 2546 Mar, [facility] [address] [facility] [id number] [place] [address] 82427 2546 Mar, [facility] [address] [facility] [id number], [place] [address]- 2546 Mar, [facility] [address] [facility] [id number] [place] [address] 43203- 9655 Mar, Restrictive lung disease J98.4 ; Anemia D64.9 and Cor pulmonale I27.81 [facility] [id number] [place] [address], [place] [address]- 0575 17 Mar, 2016 [facility] [address] [facility] [id number] [place] [address] 28635- 1141 14 Mar, 2016 [facility] [address] [facility] [id number] [place] [address] 91298- 6884 Mar, [facility] [address] [facility] [id number] [place] [address] 68210- 8903 30 Feb, 2016 [facility] [id number] [place] [address], [place] [address]- 9078 29 Feb, 2016 [facility] [id number] [place] [address] 27835- 6046 28 Feb, 2016 [facility] [id number] [place] [address] 21601- 8237 27 Feb, 2016 Restrictive lung disease J98.4 [facility] [address] [facility] [id number] [place] [address], [place] [address]- 3371 23 Feb, 2016 [facility] [address] [facility] [id number] [address] -1530 22 Feb, 2016 [facility] [address] [address]- 8887 16 Feb, 2016 [facility] [id number], [place] [address]- 5457 Jan, [facility] [address] [facility] [id number], [place] [address]- 3008 Jan, [facility] [address] [facility] [id number] [place] [address] 73213- 6806 Jan, [facility] [id number], [place] [address]- 7403 Jan, [facility] [id number] [place] [address] 32973- 5305 Jan, Restrictive lung disease J98.4 ; Anemia D64.9 and Cor pulmonale I27.81 [facility] [id number] [place] [address] 52958- 7295 Dec, [facility] [address] 83001- 6678 Dec, [facility] [address] 50165- 9179 Nov, Arthritis M19.90 and Hypokalemia E87.6 [facility] [address] 02318- 4836 Nov, Back pain M54.9 [facility] [id number] [place] [address] 34920- 7120 October, Back pain M54.9 [facility] [address] 95725- 1820 October, Back pain M54.9 [facility] [id number] [place] [address] 21561- 4331 Sep, Scabies exposure Z20.89 [facility] [id number] [place] [address] 07358- 6182 Sep, Restrictive lung disease J98.4 [facility] [id number] [place] [address] 64065- 3647 Sep, Back pain M54.9 [facility] [id number] [place] [address] 24086- 9731 Sep, Restrictive lung disease J98.4 [facility] [id number] [place] [address] 75886- 7024 Aug, [facility] [id number] [place] [address] 78219- 1645 Aug, [facility] [address] 56051- 0636 Aug, [facility] [id number] [place] [address] 52711- 8019 Aug, [facility] [id number] [place] [address] 83228- 8940 Aug, Back pain M54.9 [facility] [id number] [place] [address] 21638- 5637 Jul, Anemia D64.9 and Prediabetes R73.09 [facility] [id number] [place] [address] 31861- 9547 Jul, Back pain M54.9 [facility] [id number] [place] [address] 76424- 7141 Jul, Back pain M54.9 [facility] [id number] [place] [address] 13156- 6186 Jul, [facility] [id number] [place] [address] 83952- 4019 05 Jul, 2015 Bronchitis J40 and Anemia D64.9 [facility] [id number] [place] [address] 43218- 9634 Jun, [facility] [id number] [place] [address] 69699- 7740 Jun, [facility] [id number] [place] [address] 43930- 5520 Jun, Bronchitis J40 and Anemia D64.9 [facility] [id number] [place] [address] 70152- 4805 Jun, [facility] [id number] [place] [address] 94212- 4796 Jun, Back pain M54.9 [facility] [id number] [place] [address] 20809- 2410 Jun, Anemia D64.9 [facility] [id number] [place] [address] 87133- 6961 Jun, Restrictive lung disease J98.4 ; Anemia D64.9 ; Hypothyroidism E03.9 ; Cor pulmonale I27.81 and Back pain M54.9 [facility] [id number] [place] [address] 47959- 6818 May, [facility] [address] 37346- 8300 Apr, Anemia D64.9 ; Encounter for immunization Z23 and Restrictive lung disease J98.4 [facility] [address] 41146- 1159 Apr, [facility] [id number] [place] [address] 69533- 1075 Mar, [facility] [address] 59634- 0150 Mar, Iron deficiency anemia D50.9 [facility] [id number] [place] [address] 20296- 9742 Mar, [facility] [id number] [place] [address] 18937- 0456 Mar, [facility] [id number] [place] [address] 56800- 8885 Mar, Anemia D64.9 [facility] [id number] [place] [address] 58445- 9257 Mar, [facility] [id number] [place] [address] 24901- 5039 Mar, Anemia D64.9 [facility] [id number] [place] [address] 33512- 6330 Mar, Restrictive lung disease J98.4 and Anemia D64.9 [facility] [id number] [place] [address] 60564- 4076 Mar, [facility] [id number] [place] [address] 74864- 5406 Mar, Anemia D64.9 [facility] [id number] [place] [address] 78611- 3623 Mar, Anemia D64.9 [facility] [id number] [place] [address] 25088- 2214 Mar, [facility] [id number] [place] [address] 39615- 4096 Mar, Diabetes mellitus E11.9 ; Bronchitis J40 and Anemia D64.9 [facility] [id number] [place] [address] 76707- 3686 Feb, [facility] [id number] [place] [address] 03704- 7360 Feb, [facility] [address] [address]- 1513 Feb, [facility] [id number] [place] [address] 19098- 4117 Feb, [facility] [id number] [place] [address] 33713- 2027 Jan, [facility] [id number] [place] [address] 66830- 4503 Jan, [facility] [id number] [place] [address] 24424- 5556 Dec, Venous insufficiency 459.81 [facility] [id number] [place] [address] 77052- 6358 Dec, [facility] [id number] [place] [address] 67087- 8484 Dec, [facility] [id number] [place] [address] 96980- 1335 Dec, Coronary atherosclerosis of unspecified type of vessel, [place] or graft 414.00 ; Unspecified anemia 285.9 and Generalized osteoarthrosis , unspecified site 715.00 [facility] [id number] [address] Nov, [facility] [id number] [address]267 Nov, [facility] [id number] [place] [address] 1307 Nov, [facility] [id number] [place] [address] 11166- 0729 October, [facility] [id number] [address] 7427 October, Acute bronchitis 466.0 and Shortness of breath 786.05 [facility] [id number] [address] 65[address] Sep, [facility] [id number] [place] [address] 01439- 4967 Sep, [facility] [id number] [address] 6[address] Aug, [facility] [address] [id number] [address] Aug, [facility] [id number] [address] Jul, [facility] [id number], [place] [address] Jul, [facility] [id number] [address] Jul, [facility] [id number], [place] [address] Jul, [facility] [id number] [address] Jun, [facility] [id number] [address] Jun, [facility] [place] [facility] [address] [id number] [place] [address] Jun, [facility] [place] [facility] [address] [id number] [place] [address]- 8729 Jun, [facility] [place] [facility] [address] [id number] [place] [address]- 3442 Jun, [facility] [place] [facility] [address] [id number] [place] [address]- 2231 Jun, [facility] [place] [facility] [address] [id number] [place] [address]- 6863 May, [facility] [place] [facility] [address] [id number] [place] [address]- 1730 May, [facility] [place] [facility] [address] [id number] [place] [address]- 0412 May, [facility] [place] [facility] [address] [id number] [place] [address]- 2179 May, [facility] [place] [facility] [address] [id number] [place] [address]- 1247 Apr, [facility] [place] [facility] [address] [id number] [place] [address]- 4427 Apr, [facility] [place] [facility] [address] [id number], [place] [address] 7938 Apr, [facility] [place] [facility] [address] [id number], [place] [address] Apr, [facility] [place] [facility] [address] [id number] [place] [address]- 7683 Apr, [facility] [place] [facility] [address] [id number] [place] [address]- 0537 Apr, [facility] [place] [facility] [address] [id number] [place] [address]- 5224 Mar, [facility] [place] [facility] [address] [id number] [place] [address]- 5160 Mar, [facility] [place] [facility] [address] [id number] [place] [address]- 0114 Mar, [facility] [place] [facility] [address] [id number] [place] [address]- 5730 Mar, [facility] [place] [facility] [address] [id number] [place] [address] Mar, [facility] [place] [facility] [address] [id number] [place] [address]- 2867 Mar, [facility] [place] [facility] [address] [id number] [place] [address]- 8843 Mar, [facility] [place] [facility] [address] [id number] [place] [address]- 1183 Mar, [facility] [place] [facility] [address] [id number] [place] [address]- 4145 Feb, [facility] [place] [facility] [address] [id number] [place] [address]- 8168 Feb, [facility] [place] [facility] [address] [id number] [place] [address]- 9363 Jan, [facility] [place] [facility] [address] [id number] [place] [address]- 9455 Jan, [facility] [place] [facility] [address] [id number] [place] [address]- 2819 Jan, [facility] [place] [facility] [address] [id number] [place] [address]- 5604 Jan, [facility] [place] [facility] [address] [id number] [place] [address]- 3442 Jan, [facility] [place] [facility] [address] [id number] [place] [address]- 7688 Jan, [facility] [place] [facility] [address] [id number] [place] [address]- 2748 Dec, [facility] [place] [facility] [address] [id number] [place] [address]- 2224 Dec, [facility] [place] [facility] [address] [id number] [place] [address]- 2509 Dec, [facility] [place] [facility] [address] [id number] [place] [address]- 2604 Dec, [facility] [place] [facility] [address] [id number] [place] [address]- 3301 Nov, [facility] [place] [facility] [address] [id number] [place] [address]- 9414 Nov, [facility] [place] [facility] [address] [id number] [place] [address]- 2032 Nov, [facility] [place] [facility] [address] [id number] [place] [address]- 4222 Nov, [facility] [place] [facility] [address] [id number] [place] [address]- 0019 Nov, [facility] [place] [facility] [address] [id number] [place] [address]- 7266 Nov, [facility] [place] [facility] [address] [id number] [place] [address]- 3622 Nov, [facility] [place] [facility] [address] [id number] [place] [address]- 7728 Nov, [facility] [place] [facility] [address] [id number] [place] [address]- 2610 Nov, [facility] [place] [facility] [address] [id number] [place] [address]- 1650 Nov, [facility] [place] [facility] [address] [id number] [place] [address]- 1276 Nov, [facility] [place] [facility] [address] [id number] [place] [address]- 9444 Nov, [facility] [place] [facility] [address] [id number] [place] [address]- 4593 October, [facility] [place] [facility] [address] [id number] [place] [address]- 5231 October, [facility] [place] [facility] [address] [id number] [place] [address]- 7383 October, [facility] [place] [facility] [address] [id number] [place] [address]- 4094 October, [facility] [place] [facility] [address] [id number] [place] [address]- 5683 October, [facility] [place] [facility] [address] [id number] [place] [address]- 6739 October, [facility] [place] [facility] [address] [id number] [place] [address]- 8359 October, [facility] [place] [facility] [address] [id number] [place] [address]- 6012 October, [facility] [place] [facility] [address] [id number] [place] [address]- 8538 October, [facility] [place] [facility] [address] [id number] [place] [address]- 6612 Sep, [facility] [place] [facility] [address] [id number] [place] [address]- 0842 Sep, [facility] [place] [facility] [address] [id number] [place] [address]- 4033 Sep, [facility] [place] [facility] [address] [id number] [place] [address]- 2956 Sep, [facility] [place] [facility] [address] [id number] [place] [address]- 3376 Sep, [facility] [place] [facility] [address] [id number] [place] [address]- 2102 Sep, [facility] [place] [facility] [address] [id number] [place] [address]- 4614 Aug, [facility] [place] [facility] [address] [id number] [place] [address]- 1097 Aug, [facility] [place] [facility] [address] [id number] [place] [address]- 4474 Aug, [facility] [place] [facility] [address] [id number] [place] [address]- 9254 Aug, [facility] [place] [facility] [address] [id number] [place] [address]- 5958 Aug, [facility] [place] [facility] [address] [id number] [place] [address]- 1868 Aug, [facility] [place] [facility] [address] [id number] [place] [address]- 0839 Aug, [facility] [place] [facility] [address] [id number] [place] [address]- 0700 Aug, [facility] [place] [facility] [address] [id number] [place] [address]- 7916 Aug, [facility] [place] [facility] [address] [id number] [place] [address]- 6444 Aug, [facility] [place] [facility] [address] [id number] [place] [address]- 7819 Jul, [facility] [place] [facility] [address] [id number] [place] [address]- 6352 Jul, [facility] [place] [facility] [address] [id number] [place] [address]- 4160 Jun, [facility] [place] [facility] [address] [id number] [place] [address]- 7465 Jun, [facility] [place] [facility] [address] [id number] [place] [address]- 9840 Jun, [facility] [place] [facility] [address] [id number] [place] [address]- 5378 Jun, [facility] [place] [facility] [address] [id number] [place] [address]- 9825 Jun, [facility] [address] [id number] [place] [address]- 6660 Jun, [facility] [place] [facility] [address] [id number] [place] [address]- 1107 Jun, [facility] [place] [facility] [address] [id number] [place] [address]- 8000 Jun, [facility] [place] [facility] [address] [id number] [place] [address]- 8782 May, [facility] [place] [facility] [address] [id number] [place] [address]- 3898 May, [facility] [place] [facility] [address] [id number] [place] [address]- 1234 May, [facility] [place] [facility] [address] [id number] [place] [address]- 9046 May, [facility] [place] [facility] [address] [id number] [place] [address]- 1655 May, [facility] [place] [facility] [address] [id number] [place] [address]- 3895 May, [facility] [place] [facility] [address] [id number] [place] [address]- 8440 May, [facility] [place] [facility] [address] [id number] [place] [address]- 1285 May, [facility] [place] [facility] [address] [id number] [place] [address]- 6036 May, [facility] [place] [facility] [address] [id number] [place] [address]- 3038 Apr, [facility] [place] [facility] [address] [id number] [place] [address]- 8605 Apr, [facility] [place] [facility] [address] [id number] [place] [address]- 9627 Apr, [facility] [place] [facility] [address] [id number] [place] [address]- 0350 Apr, 2012 [facility] [place] [facility] [address] [id number] [place] [address]- 7373 30 Mar, 2012 [facility] [place] [facility] [address] [id number] [place] [address]- 2485 30 Mar, 2012 [facility] [place] [facility] [address] [id number] [place] [address]- 5375 30 Mar, 2012 [facility] [place] [facility] [address] [id number] [place] [address]- 7651 30 Mar, 2012 [facility] [place] [facility] [address] [id number] [place] [address]- 4145 30 Mar, 2012 [facility] [place] [facility] [address] [id number] [place] [address]- 0767 30 Mar, 2012 [facility] [place] [facility] [address] [id number] [place] [address]- 8866 Mar, 2012 [facility] [place] [facility] [address] [id number] [place] [address]- 6283 Mar, 2012 [facility] [place] [facility] [address] [id number] [place] [address]- 4411 Mar, 2012 [facility] [place] [facility] [address] [id number], [place] [address]- 1702 Mar, 2012 [facility] [place] [facility] [address] [id number] [place] [address]- 7086 18 Mar, 2012 [facility] [place] [facility] [address] [id number], [place] [address]- 0473 Mar, 2012 [facility] [place] [facility] [address] [id number] [place] [address]- 2229 Mar, 2012 [facility] [place] [facility] [address] [id number], [place] [address]- 9423 Mar, 2012 [facility] [place] [facility] [address] [id number], [place] [address]- 7579 Mar, 2012 [facility] [place] [facility] [address] [id number] [place] [address]- 2616 18 Mar, 2012 [facility] [place] [facility] [address] [id number] [place] [address]- 2448 17 Mar, 2012 [facility] [place] [facility] [address] [id number] [place] [address]- 6413 17 Mar, 2012 [facility] [place] [facility] [address] [id number] [place] [address]- 1805 15 Mar, 2012 [facility] [place] [facility] [address] [id number] [place] [address]- 9874 15 Mar, 2012 [facility] [place] [facility] [address] [id number] [place] [address]- 2741 14 Mar, 2012 [facility] [place] [facility] [address] [id number] [place] [address]- 7587 14 Mar, 2012 [facility] [place] [facility] [address] [id number] [place] [address]- 3205 14 Mar, 2012 [facility] [place] [facility] [address] [id number] [place] [address]- 4379 14 Mar, 2012 [facility] [place] [facility] [address] [id number] [place] [address]- 6968 12 Mar, 2012 [facility] [place] [facility] [address] [id number] [place] [address]- 1997 11 Mar, 2012 [facility] [place] [facility] [address] [id number] [place] [address]- 2057 11 Mar, 2012 [facility] [place] [facility] [address] [id number] [place] [address]- 5480 10 Mar, 2012 [facility] [place] [facility] [address] [id number] [place] [address]- 9768 10 Mar, 2012 [facility] [place] [facility] [address] [id number] [place] [address]- 0691 10 Mar, 2012 [facility] [place] [facility] [address] [id number] [place] [address]- 4918 Mar, [facility] [place] [facility] [address] [id number] [place] [address]- 1384 Mar, [facility] [place] [facility] [address] [id number] [place] [address]- 8812 Mar, [facility] [place] [facility] [address] [id number] [place] [address]- 2024 Feb, [facility] [place] [facility] [address] [id number] [place] [address]- 8034 Feb, [facility] [place] [facility] [address] [id number] [place] [address]- 8763 Feb, [facility] [place] [facility] [address] [id number] [place] [address]- 9948 Feb, [facility] [place] [facility] [address] [id number] [place] [address]- 5517 Jan, [facility] [place] [facility] [address] [id number] [place] [address]- 0681 Jan, [facility] [place] [facility] [address] [id number] [place] [address]- 9899 Jan, [facility] [place] [facility] [address] [id number] [place] [address]- 0471 Jan, [facility] [place] [facility] [address] [id number] [place] [address]- 2301 Jan, [facility] [place] [facility] [address] [id number] [place] [address]- 6102 Jan, [facility] [place] [facility] [address] [id number] [place] [address]- 3993 Dec, [facility] [place] [facility] [address] [id number] [place] [address]- 4893 Dec, [facility] [place] [facility] [address] [id number] [place] [address]- 8735 Dec, [facility] [place] [facility] [address] [id number] [place] [address]- 7604 Dec, [facility] [address] [id number] [place] [address]- 7048 Dec, [facility] [address] [id number] [place] [address]- 0048 Dec, [facility] [address] [id number] [place] [address]- 9795 Dec, [facility] [address] [id number] [place] [address]- 3063 Dec, [facility] [address] [id number] [place] [address]- 6800 Dec, [facility] [address] [id number] [place] [address]- 4049 Dec, [facility] [address] [id number] [place] [address]- 3049 Dec, [facility] [address] [id number] [place] [address]- 1917 October, [facility] [address] [id number] [place] [address]- 7709 October, [facility] [address] [id number] [place] [address]- 1228 October, [facility] [address] [id number] [place] [address]- 4552 October, [facility] [address] [id number] [place] [address]- 4055 Sep, [facility] [address] [id number] [place] [address]- 6561 Sep, [facility] [address] [id number] [place] [address]- 3191 Sep, [facility] [address] [id number] [place] [address]- 8713 Sep, [facility] [address] [id number], [place] [address]- 1011 Sep, [facility] [address] [id number], [place] [address]- 8912 Sep, [facility] [address] [id number], [place] [address]- 4528 Sep, [facility] [id number], [place] [address]- 8601 Sep, [facility] [address] [id number], [place] [address]- 3102 Sep, [facility] [id number], [place] [address]- 8388 Sep, [facility] [address] [id number], [place] [address]- 5419 Sep, IMMUNIZATIONS No Known Immunizations SOCIAL HISTORY [...] Hospitalization History Acute dyspnea, muscle cramps--[facility] 03/04/16 Hospitalization History RLE Cellulitis, Hypokalemia, anemia-[facility] 09/29/15 Hospitalization History Lower edema 09/2016 Hospitalization History Received stitches ER 10/2016
--- OUTSIDE RECORDS SUMMARY | 2018-03-19 23:52 | XMS REPORT ---
Author Author CHARLES REAGAN Organization [facility] Address [address] [place] [address] Care Team Providers Care Call Center Manager Name Role Phone CHARLES REAGAN Unavailable PROBLEMS Type Condition ICD9-CM Code [id number] Code Onset Dates Condition Status SNOMED Code Problem Prediabetes R73.09 Active 2072002 Problem Arthritis M19.90 Active 9931231 Problem Hypokalemia E87.6 Active 65652577 Problem Coronary artery disease involving k[place] coronary artery of k[place] heart without angina pectoris I25.10 Active 7702686141975 Problem Skin cancer of face C44.300 Active 720751549 Problem Morbid (severe) obesity due to excess calories E66.01 Active 473820317 Problem Body mass index (BMI) of 45.0-49.9 in adult Z68.42 Active 310191842 Problem Venous insufficiency I87.2 Active 83924802 Problem 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 [address] [facility] [id number] [address] Feb, [facility] [address] [facility] [id number], [place] [address] Jan, Arthritis M19.90 [facility] [address] [facility] [id number], [place] [address] Jan, Back pain M54.9 and Arthritis M19.90 [facility] [address] [facility] [id number], [place] [address] Jan, [facility] [address] [facility] [id number] [place] [address] 78171- 7309 Jan, Back pain M54.9 [facility] [address] [facility] [id number] [place] [address] 35405- 3987 Jan, Arthritis M19.90 [facility] [address] [place] [id number] [place] [address] 33355- 8938 Jan, Back pain M54.9 [facility] [address] [facility] [id number] [place] [address] 41668- 8412 Jan, [facility] [address] [place] [id number] [place] [address] 55952- 9158 Jan, Back pain M54.9 [facility] [address] [place] [id number] [place] [address] 46359- 6485 Dec, Ingrowing nail with infection L60.0 and Onychomycosis B35.1 [facility] [id number] [place] [address] 91110- 1057 Dec, Arthritis M19.90 [facility] [address] [id number] [place] [address] 97158- 5299 Dec, Ingrowing nail L60.0 [facility] [id number] [place] [address] 30087- 4988 Dec, Back pain M54.9 [facility] [address] [facility] [id number], [place] [address] Dec, [facility] [address] [place] [id number] [place] [address] 52545- 3671 Dec, Back pain M54.9 [facility] [address] [place] [id number] [address]- 6460 Nov, Arthritis M19.90 [facility] [address] [place] [id number] [place] [address] 61838- 3528 Nov, [facility] [address] [place] [id number] [place] [address] 05858- 1735 Nov, Arthritis M19.90 ; Anemia D64.9 ; Restrictive lung disease J98.4 ; Weakness R53.1 and BMI 50.0-59.9, adult Z68.43 [place] [address] 00246- 3003 Nov, Arthritis M19.90 [place] [address] [place] [id number] [place] [address] 66595- 3130 Nov, Back pain M54.9 [place] [address] 58214- 9137 October, Back pain M54.9 [place] [address] [place] [id number] [place] [address] 10150- 1937 October, Back pain M54.9 [facility] [address] [place] [id number] [place] [address] 64442- 4647 Sep, Back pain M54.9 [place] [address] [place] [id number] [place] [address] 64977- 7219 Sep, Back pain M54.9 [facility] [address] [place] [id number] [place] [address] 51032 -6847 Sep, [facility] [address] [place] [id number] [place] [address] 71746 -8367 Sep, [facility] [address] [place] [id number] [place] [address] 88682 -1141 Sep, Swelling of right lower extremity M79.89 and Cellulitis of right lower extremity L03.115 [facility] [address] [place] [place] [id number] [place] [address] 74658- 4167 Aug, Back pain M54.9 [facility] [address] [place] [id number] [place] [address] 98791- 5710 15 Aug, 2017 Back pain M54.9 [facility] [address] [address] 2090 Aug, [place] [address] [place] [id number] [place] [address] 22662- 7213 Aug, Cellulitis of right lower extremity L03.115 ; Ventral hernia without obstruction or gangrene K43.9 and BMI 50.0-59.9, adult Z68.43 [place] [address] [place] [id number] [place] [address] 19083- 3126 28 Jul, 2017 Back pain M54.9 [place] [address] [place] [id number] [place] [address] 09480- 4674 28 Jul, 2017 snf (current) 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 Z79.891 ; Arthritis M19.90 ; Back pain M54.9 ; Prediabetes R73.09 ; Hypothyroidism E03.9 ; Coronary artery disease involving k[place] coronary artery of [place] heart without angina pectoris I25.10 and Anemia D64.9 [place] [address] [place] [address] 98892- 9902 27 Jul, 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 ; Back pain M54.9 ; Arthritis M19.90 ; Prediabetes R73.09 ; Hypothyroidism E03.9 ; Coronary artery disease involving k[place] coronary artery of kag[place] heart without angina pectoris I25.10 ; Anemia D64.9 and BMI 45.0-49.9, adult Z68.42 [place] [address] [address]- 1037 15 Jul, 2017 Back pain M54.9 [place] [address] [place] [id number] [place] [address] 85244- 0446 05 Jul, 2017 Back pain M54.9 [place] [address] [place] [address] 25232- 7758 Jun, Back pain M54.9 [place] [address] [place] [id number] [place] [address] 51293- 0733 Jun, Back pain M54.9 [facility] [address] [id number] [place] [address] 04819 -5658 May, Skin cancer of face C44.300 and BMI 45.0-49.9, adult Z68.42 [facility] [address] [place] [id number] [place] [address] 58687- 7998 May, [facility] [address] 01141- 3423 May, Back pain M54.9 [facility] [address] 01429- 9831 May, Back pain M54.9 [facility] [address] [place] [id number] [place] [address] 56916- 5300 May, Back pain M54.9 [facility] [address] 09596- 8944 Apr, Back pain M54.9 [facility] [address] [place] [id number] [place] [address] 28287- 6396 Apr, Back pain M54.9 [facility] [address] [place] [id number] [place] [address] 31402- 2016 Mar, Back pain M54.9 [facility] [address] [place] [id number] [place] [address] 45054- 4385 Mar, Anemia D64.9 ; Encounter for immunization Z23 ; Arthritis M19.90 and Right inguinal hernia K40.90 [facility] [address] [place] [id number] [place] [address] 80307- 7666 Mar, Back pain M54.9 [facility] [address] [place] [id number] [place] [address] 71298- 5080 22 Feb, 2017 Back pain M54.9 [facility] [address] [place] [id number] [place] [address] 25942- 5821 13 Feb, 2017 Back pain M54.9 [facility] [address] [facility] [id number] [place] [address] 47775 2546 Jan, Back pain M54.9 [facility] [address] [facility] [id number] [place] [address] 58402 2546 Jan, Back pain M54.9 [facility] [address] [facility] [id number] [place] [address] 46718 2546 Jan, [facility] [address] [facility] [id number] [place] [address] 79201 2546 Jan, Back pain M54.9 [facility] [address] [place] [id number] [place] [address] 32325 2546 Dec, Back pain M54.9 [facility] [address] [place] [id number] [place] [address] 37371 2546 Dec, Back pain M54.9 [facility] [address] [place] [id number] [place] [address] 47080 2546 Dec, [facility] [address] [place] [id number] [place] [address] 77009 2544 Nov, Hypokalemia E87.6 [facility] [address] [place] [id number] [place] [address] 04115 2546 Nov, Back pain M54.9 [facility] [address] [place] [id number] [place] [address] 76853 2546 Nov, [facility] [address] [place] [id number] [place] [address] 30374 2546 Nov, Arthritis M19.90 [facility] [address] [place] [id number] [place] [address] 41488 2546 Nov, Back pain M54.9 [facility] [address] [place] [id number] [place] [address] 71141 2546 23 Nov, 2016 Generalized edema R60.1 [facility] [address] [place] [id number] [place] [address] 83347- 0946 Nov, Back pain M54.9 [place] [address] [place] [id number] [place] [address] 03447- 4930 07 Nov, 2016 Pain in right knee M25.561 [facility] [address] [place] [id number] [place] [address] 15805- 6743 05 Nov, 2016 Encounter for removal of sutures Z48.02 and Pain in right knee M25.561 [facility] [address] [place] [id number] [place] [address] 96777 -7790 Nov, Abrasion of right foot, subsequent encounter S90.811D [facility] [place] [address] 18110 -5174 October, Toe abrasion, right, initial encounter S90.414A [place] [address] 88907- 4467 October, [place] [address] 21125- 3650 October, Back pain M54.9 [place] [address] 05796- 1970 October, Venous insufficiency I87.2 [place] [address] [place] [id number] [place] [address] 10396- 1629 October, Pain in right knee M25.561 [place] [address] [place] [id number] [place] [address] 69342- 8004 Sep, Back pain M54.9 [place] [address] [place] [id number] [place] [address] 78142- 9939 Sep, Venous insufficiency I87.2 [facility] [address] [place] [id number] [place] [address] [id number] Sep, [facility] [address] [place] [id number] [place] [address] 64585 -0247 Sep, Leg edema, right R60.0 and Cellulitis of right lower extremity L03.115 [facility] [address] [place] [id number] [place] [address] 80850- 1390 14 Sep, 2016 Pedal edema R60.0 [facility] [address] 98065- 1682 04 Sep, 2016 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 ; Pain in right knee M25.561 and Arthritis M19.90 [place] [address] 54920- 9033 Aug, Back pain M54.9 [place] [address] 97867- 2280 Aug, Back pain M54.9 [place] [address] 52932- 3297 Aug, [place] [address] 08091- 3500 Aug, Type 2 diabetes mellitus without complication E11.9 ; Restrictive lung disease J98.4 ; Arthritis M19.90 ; Back pain M54.9 ; Body mass index (BMI) of 45.0-49.9 in adult Z68.42 and Morbid (severe) obesity due to excess calories E66.01 [place] [address] [place] [id number] [place] [address] 53884- 2319 Aug, Back pain M54.9 [place] [address] 64887- 0383 Aug, Back pain M54.9 [facility] [address] [place] [id number] [place] [address] 63071- 1490 Jul, [place] [address] 72259- 6164 Jul, Back pain M54.9 [place] [address] [place] [id number] [place] [address] 70291- 3757 Jul, Back pain M54.9 [facility] [address] [facility] [id number], [place] [address]- 6915 Jun, Back pain M54.9 [facility] [address] [facility] [id number] [place] [address] 22796 2546 Jun, Back pain M54.9 [facility] [address] [facility] [id number] [place] [address] 63147 2546 May, Back pain M54.9 [facility] [address] [facility] [id number] [place] [address] 31015 2546 May, Back pain M54.9 [facility] [address] [facility] [id number] [place] [address] 98093 2546 May, Back pain M54.9 [facility] [address] [facility] [id number] [place] [address] 65299- 2726 May, Back pain M54.9 [facility] [address] [facility] [id number] [place] [address] 91462 2546 May, [facility] [address] [facility] [id number] [place] [address] 11312- 1727 May, Back pain M54.9 and Pain in right knee M25.561 [facility] [address] [facility] [id number] [place] [address] 18246- 1069 Apr, [facility] [address] [place] [id number] [place] [address] 65917 2549 Apr, Type 2 diabetes mellitus without complication E11.9 ; Pain in right knee M25.561 and Pain in left knee M25.562 [facility] [address] [facility] [id number] [place] [address] 48168- 3916 Mar, [facility] [address] [facility] [id number] [place] [address] 70940- 9176 Mar, [facility] [address] [facility] [id number] [place] [address] 60758- 3818 Mar, [facility] [address] [facility] [id number], [place] [address]- 2725 18 Mar, 2016 Restrictive lung disease J98.4 ; Anemia D64.9 and Cor pulmonale I27.81 [facility] [address] [facility] [id number] [place] [address]- 9320 17 Mar, 2016 [facility] [address] [facility] [id number] [place] [address]- 6923 14 Mar, 2016 [facility] [address] [facility] [id number] [place] [address]- 0988 Mar, [facility] [address] [facility] [id number] [place] [address], [place] [address]- 4957 30 Feb, 2016 [facility] [address] [facility] [id number] [place] [address]- 4847 29 Feb, 2016 [facility] [id number] [place] [address], [place] [address]- 5632 28 Feb, 2016 [facility] [address] [facility] [id number] [place] [address]- 7949 27 Feb, 2016 Restrictive lung disease J98.4 [facility] [id number] [place] [address]- 1157 23 Feb, 2016 [facility] [address] [place] [id number] [place] [address] -2837 Feb, [facility] [address], [place] [address]- 3561 16 Feb, 2016 [facility] [address] [facility] [id number], [place] [address]- 9549 Jan, [facility] [address], [place] [address]- 9888 Jan, [facility] [address] [facility] [id number], [place] [address]- 6481 Jan, [facility] [address], [place] [address]- 5433 Jan, [facility] [id number] [place] [address] 15479- 6395 Jan, Restrictive lung disease J98.4 ; Anemia D64.9 and Cor pulmonale I27.81 [facility] [address] [place] [id number] [place] [address] 89463- 5731 Dec, [facility] [address] 20458- 2853 Dec, [facility] [address] [place] [id number] [place] [address] 18176- 5742 Nov, Arthritis M19.90 and Hypokalemia E87.6 [facility] [address] [place] [id number] [place] [address] 31061- 0892 Nov, Back pain M54.9 [facility] [address] [place] [id number] [place] [address] 06406- 2800 October, Back pain M54.9 [facility] [address] [place] [id number] [place] [address] 75096- 0273 October, Back pain M54.9 [facility] [address] [place] [id number] [place] [address] 49729- 3030 Sep, Scabies exposure Z20.89 [facility] [id number] [place] [address] 30996- 9853 Sep, Restrictive lung disease J98.4 [facility] [id number] [place] [address] 61463- 9275 Sep, Back pain M54.9 [facility] [id number] [place] [address] 66413- 4716 Sep, Restrictive lung disease J98.4 [facility] [id number] [place] [address] [id number]- [phone] Aug, [facility] [id number] [place] [address] 97380- 1171 Aug, [facility] [id number] [address] Aug, [facility] [id number] [place] [address] 58196- 2804 Aug, [facility] [id number] [place] [address] 97540- 1099 Aug, Back pain M54.9 [facility] [id number] [place] [address] 27345- 2202 Jul, Anemia D64.9 and Prediabetes R73.09 [facility] [id number] [place] [address] 72049- 5518 Jul, Back pain M54.9 [facility] [id number] [place] [address] 33433- 4167 Jul, Back pain M54.9 [facility] [id number] [place] [address] 18770- 1482 Jul, [facility] [id number] [place] [address] 58707- 4882 Jul, Bronchitis J40 and Anemia D64.9 [facility] [id number] [place] [address] 90251- 7232 Jun, [facility] [id number] [place] [address] 71467- 5489 Jun, [facility] [id number] [place] [address] 82444- 2548 Jun, Bronchitis J40 and Anemia D64.9 [facility] [id number] [place] [address] [id number] 2549 Jun, [facility] [id number] [place] [address] 68613- 4685 Jun, Back pain M54.9 [facility] [id number] [place] [address] 36246- 3045 Jun, Anemia D64.9 [facility] [id number] [place] [address] 61843- 1479 Jun, Restrictive lung disease J98.4 ; Anemia D64.9 ; Hypothyroidism E03.9 ; Cor pulmonale I27.81 and Back pain M54.9 [facility] [id number] [place] [address] 18606- 4156 May, [facility] [address] 6[address]16- 3939 Apr, Anemia D64.9 ; Encounter for immunization Z23 and Restrictive lung disease J98.4 [facility] [id number] [place] [address] 02446- 2329 Apr, [facility] [id number] [place] [address] 54564- 0451 Mar, [facility] [id number] [place] [address] 09010- 1791 Mar, Iron deficiency anemia D50.9 [facility] [id number] [place] [address] 68581- 7223 Mar, [facility] [id number] [place] [address] 44977- 7430 Mar, [facility] [id number] [place] [address] 37911- 8317 Mar, Anemia D64.9 [facility] [id number] [place] [address] 70310- 8089 Mar[facility] [facility] [id number] [place] [address] 46483- 9240 Mar, Anemia D64.9 [facility] [id number] [place] [address] 94547- 7187 Mar, Restrictive lung disease J98.4 and Anemia D64.9 [facility] [address] [place] [address] 6487 Mar, [facility] [id number] [place] [address] 50430- 6076 Mar, Anemia D64.9 [facility] [id number] [place] [address] 87377- 1204 Mar, Anemia D64.9 [facility] [id number] [place] [address] 14490 2543 Mar, [facility] [id number] [place] [address] 89539- 1592 Mar, Diabetes mellitus E11.9 ; Bronchitis J40 and Anemia D64.9 [facility] [id number] [place] [address] 44347- 0735 Feb, [facility] [id number] [place] [address] 96643- 9990 Feb, [facility] [id number] [place] [address] 70949- 3882 Feb, [facility] [id number] [place] [address] 24259- 6888 Feb, [facility] [id number] [place] [address] 89360- 2238 Jan, [facility] [id number] [place] [address] 45947- 5222 Jan, [facility] [id number] [place] [address] 32826- 4451 Dec, Venous insufficiency 459.81 [facility] [id number] [place] [address] 44279- 2746 Dec, [facility] [id number] [place] [address] 89886- 9841 Dec, [facility] [id number] [place] [address] 46204- 2562 Dec, Coronary atherosclerosis of unspecified type of vessel, [place] or graft 414.00 ; Unspecified anemia 285.9 and Generalized osteoarthrosis , unspecified site 715.00 [facility] [id number] [place] [address] 65895- 6678 Nov, [facility] [id number] [place] [address] 18121- 8422 Nov, [facility] [id number] [place] [address] 55264- 4827 Nov, [facility] [id number] [place] [address] 48521- 8637 October, [facility] [id number] [place] [address] 86763- 7580 October, Acute bronchitis 466.0 and Shortness of breath 786.05 [facility] [id number] [place] [address] 55781- 5343 Sep, [facility] [id number] [place] [address] 31627- 7348 Sep, [facility] [id number] [place] [address] 74694- 4516 Aug, [facility] [id number] [place] [address] 69048- 8515 Aug, [facility] [id number] [place] [address] 86909- 8879 Jul, [facility] [id number] [place] [address] 38962- 9707 Jul, [facility] [id number] [place] [address] 71304- 5811 Jul, [facility] [id number] [place] [address] 32615- 4120 Jul, [facility] [address] [address]- 2630 Jun, [facility] [place] [facility] [address] [id number] [place] [address]- 5107 Jun, [facility] [place] [facility] [address] [id number] [place] [address]- 5744 Jun, [facility] [place] [facility] [address] [id number] [place] [address]- 0970 Jun, [facility] [place] [facility] [address] [id number] [place] [address]- 1661 Jun, [facility] [place] [facility] [address] [id number] [place] [address]- 6552 Jun, [facility] [place] [facility] [address] [id number] [place] [address]- 0083 May, [facility] [place] [facility] [address] [id number] [place] [address]- 2559 May, [facility] [place] [facility] [address] [id number] [place] [address]- 7731 May, [facility] [place] [facility] [address] [id number] [place] [address]- 5810 May, [facility] [place] [facility] [address] [id number] [place] [address]- 4550 Apr, [facility] [place] [facility] [address] [id number] [place] [address]- 9373 Apr, [facility] [place] [facility] [address] [id number] [place] [address]- 9631 Apr, [facility] [place] [facility] [address] [id number] [place] [address]- 3672 Apr, [facility] [place] [facility] [address] [id number] [place] [address]- 7338 Apr, [facility] [place] [facility] [address] [id number] [place] [address]- 3566 Apr, [facility] [place] [facility] [address] [id number] [place] [address]- 3117 Mar, [facility] [place] [facility] [address] [id number] [place] [address]- 9376 Mar, [facility] [place] [facility] [address] [id number] [place] [address]- 9293 Mar, [facility] [place] [facility] [address] [id number] [place] [address]- 8141 Mar, [facility] [place] [facility] [address] [id number] [place] [address]- 8621 Mar, [facility] [place] [facility] [address] [id number] [place] [address]- 1700 Mar, [facility] [place] [facility] [address] [id number] [place] [address]- 7035 Mar, [facility] [place] [facility] [address] [id number] [place] [address]- 6249 Mar, [facility] [place] [facility] [address] [id number] [place] [address]- 6692 Feb, [facility] [place] [facility] [address] [id number] [place] [address]- 5397 Feb, [facility] [place] [facility] [address] [id number] [place] [address]- 3070 Jan, [facility] [place] [facility] [address] [id number] [place] [address]- 7398 Jan, [facility] [place] [facility] [address] [id number] [address]- 4710 Jan, [facility] [place] [facility] [address] [id number] [place] [address]- 3238 Jan, [facility] [place] [facility] [address] [id number] [place] [address]- 8239 Jan, [facility] [place] [facility] [address] [id number] [place] [address]- 7174 Jan, [facility] [place] [facility] [address] [id number] [place] [address]- 8035 Dec, [facility] [place] [facility] [address] [id number] [place] [address]- 4357 Dec, [facility] [place] [facility] [address] [id number] [place] [address]- 6615 Dec, [facility] [place] [facility] [address] [id number] [place] [address]- 0868 Dec, [facility] [place] [facility] [address] [id number] [place] [address]- 9815 Nov, [facility] [place] [facility] [address] [id number] [place] [address]- 6099 Nov, [facility] [place] [facility] [address] [id number] [place] [address]- 4010 Nov, [facility] [place] [facility] [address] [id number] [place] [address]- 1247 Nov, [facility] [place] [facility] [address] [id number] [place] [address]- 3979 Nov, [facility] [place] [facility] [address] [id number] [place] [address]- 8517 Nov, [facility] [place] [facility] [address] [id number] [place] [address]- 7063 Nov, [facility] [place] [facility] [address] [id number] [place] [address]- 2488 Nov, [facility] [place] [facility] [address] [id number] [place] [address]- 6382 Nov, [facility] [place] [facility] [address] [id number] [place] [address]- 3833 Nov, [facility] [place] [facility] [address] [id number] [place] [address]- 8481 Nov, [facility] [place] [facility] [address] [id number] [place] [address]- 8844 Nov, [facility] [place] [facility] [address] [id number] [place] [address]- 8854 October, [facility] [place] [facility] [address] [id number] [place] [address]- 1435 October, [facility] [place] [facility] [address] [id number] [place] 5067 October, [facility] [place] [facility] [address] [id number] [place] [address]- 0378 October, [facility] [place] [facility] [address] [id number] [place] [address]- 2707 October, [facility] [place] [facility] [address] [id number] [place] [address]- 5200 October, [facility] [place] [facility] [address] [id number] [place] [address]- 3623 October, [facility] [place] [facility] [address] [id number] [place] [address]- 8227 October, [facility] [place] [facility] [address] [id number] [place] [address]- 6394 October, [facility] [place] [facility] [address] [id number] [place] [address]- 5276 Sep, [facility] [place] [facility] [address] [id number] [place] [address]- 8231 Sep, [facility] [place] [facility] [address] [id number] [place] [address]- 8769 Sep, [facility] [place] [facility] [address] [id number] [place] [address]- 8806 Sep, [facility] [place] [facility] [address] [id number] [place] [address]- 0053 Sep, [facility] [place] [facility] [address] [id number] [place] [address]- 4762 Sep, [facility] [place] [facility] [address] [id number] [place] [address]- 4806 Aug, [facility] [place] [facility] [address] [id number] [place] [address]- 4991 Aug, [facility] [place] [facility] [address] [id number] [place] [address]- 8712 Aug, [facility] [place] [facility] [address] [id number] [place] [address]- 3233 Aug, [facility] [place] [facility] [address] [id number] [place] [address]- 5820 Aug, [facility] [place] [facility] [address] [id number] [place] [address]- 9934 Aug, [facility] [place] [facility] [address] [id number] [place] [address]- 4003 Aug, [facility] [place] [facility] [address] [id number] [place] [address]- 7857 Aug, [facility] [place] [facility] [address] [id number] [place] [address]- 1020 Aug, [facility] [place] [facility] [address] [id number] [place] [address]- 0910 Aug, [facility] [place] [facility] [address] [id number] [place] [address]- 1029 Jul, [facility] [place] [facility] [address] [id number] [place] [address]- 0389 Jul, [facility] [place] [facility] [address] [id number] [place] [address]- 6390 Jun, [facility] [place] [facility] [address] [id number] [place] [address]- 6403 Jun, [facility] [place] [facility] [address] [id number] [place] [address]- 3469 Jun, [facility] [place] [facility] [address] [id number] [place] [address]- 5143 Jun, [facility] [place] [facility] [address] [id number] [place] [address]- 0075 Jun, [facility] [place] [facility] [address] [id number] [place] [address]- 2582 Jun, [facility] [place] [facility] [address] [id number] [place] [address]- 5162 Jun, [facility] [place] [facility] [address] [id number] [place] [address]- 3286 Jun, [facility] [place] [facility] [address] [id number] [place] [address]- 4641 May, [facility] [place] [facility] [address] [id number] [place] [address]- 4357 May, [facility] [place] [facility] [address] [id number] [place] [address]- 4055 May, [facility] [place] [facility] [address] [id number] [place] [address]- 2149 May, [facility] [place] [facility] [address] [id number] [place] [address]- 9645 May, [facility] [place] [facility] [address] [id number] [place] [address]- 0464 May, [facility] [place] [facility] [address] [id number] [place] [address]- 1731 May, [facility] [place] [facility] [address] [id number] [place] [address]- 0448 May, [facility] [place] [facility] [address] [id number] [place] 8739 May, [facility] [place] [facility] [address] [id number] [place] [address]- 2988 Apr, [facility] [place] [facility] [address] [id number] [place] [address]- 5707 Apr, [facility] [place] [facility] [address] [id number] [place] [address]- 1539 Apr, [facility] [place] [facility] [address] [id number] [place] [address]- 7087 Apr, [facility] [place] [facility] [address] [id number] [place] [address]- 0712 Mar, [facility] [place] [facility] [address] [id number] [place] 5432 Mar, [facility] [place] [facility] [address] [id number] [place] [address]- 1145 Mar, [facility] [place] [facility] [address] [id number] [place] [address]- 3565 Mar, [facility] [place] [facility] [address] [id number] [place] [address]- 9659 Mar, [facility] [place] [facility] [address] [id number] [place] [address]- 7109 Mar, [facility] [place] [facility] [address] [id number], [place] [address]- 9598 Mar, [facility] [place] [facility] [address] [id number], [place] [address]- 0064 Mar, [facility] [place] [facility] [address] [id number], [place] [address]- 9766 Mar, [facility] [place] [facility] [address] [id number], [place] [address]- 7425 Mar, [facility] [place] [facility] [address] [id number], [place] [address]- 3017 Mar, [facility] [place] [facility] [address] [id number], [place] [address]- 2581 Mar, [facility] [place] [facility] [address] [id number], [place] [address]- 3682 Mar, [facility] [place] [facility] [address] [id number], [place] [address]- 2356 Mar, [facility] [place] [facility] [address] [id number] [place] [address]- 6647 18 Mar, 2012 [facility] [place] [facility] [address] [id number] [place] [address]- 2938 18 Mar, 2012 [facility] [place] [facility] [address] [id number] [place] [address]- 4467 17 Mar, 2012 [facility] [place] [facility] [address] [id number] [place] [address]- 1123 17 Mar, 2012 [facility] [place] [facility] [address] [id number] [place] [address]- 9433 15 Mar, 2012 [facility] [place] [facility] [address] [id number] [place] [address]- 8202 15 Mar, 2012 [facility] [place] [facility] [address] [id number] [place] [address]- 7934 14 Mar, 2012 [facility] [place] [facility] [address] [id number] [place] [address]- 3318 14 Mar, 2012 [facility] [place] [facility] [address] [id number] [place] [address]- 1753 14 Mar, 2012 [facility] [place] [facility] [address] [id number] [place] [address]- 5843 14 Mar, 2012 [facility] [place] [facility] [address] [id number] [place] [address]- 8530 12 Mar, 2012 [facility] [place] [facility] [address] [id number] [place] [address]- 9461 11 Mar, 2012 [facility] [place] [facility] [address] [id number], [place] [address]- 4778 11 Mar, 2012 [facility] [place] [facility] [address] [id number] [place] [address]- 2570 10 Mar, 2012 [facility] [place] [facility] [address] [id number] [place] [address]- 9489 10 Mar, 2012 [facility] [place] [facility] [address] [id number] [place] [address]- 1002 Mar, [facility] [place] [facility] [address] [id number] [place] [address]- 7553 Mar, [facility] [place] [facility] [address] [id number] [place] [address]- 8897 Mar, [facility] [place] [facility] [address] [id number] [place] [address]- 6531 Mar, [facility] [place] [facility] [address] [id number] [place] [address]- 7807 Feb, [facility] [place] [facility] [address] [id number] [place] [address]- 8911 Feb, [facility] [place] [facility] [address] [id number] [place] [address]- 7423 Feb, [facility] [place] [facility] [address] [id number] [place] [address]- 7138 Feb, [facility] [place] [facility] [address] [id number] [place] [address]- 9744 Jan, [facility] [place] [facility] [address] [id number] [place] [address]- 3331 Jan, [facility] [place] [facility] [address] [id number] [place] [address]- 5627 Jan, [facility] [place] [facility] [address] [id number] [place] [address]- 6746 Jan, [facility] [place] [facility] [address] [id number] [place] [address]- 7774 Jan, [facility] [place] [facility] [address] [id number] [place] [address]- 5877 Jan, [facility] [place] [facility] [address] [id number] [place] [address]- 0526 Dec, [facility] [place] [facility] [address] [id number] [place] [address]- 4329 Dec, [facility] [place] [facility] [address] [id number] [place] [address]- 7800 Dec, [facility] [address] [id number] [place] [address]- 1106 Dec, [facility] [place] [facility] [address] [id number] [place] [address]- 6483 Dec, [facility] [place] [facility] [address] [id number] [place] [address]- 2454 Dec, [facility] [place] [facility] [address] [id number] [place] [address]- 6550 Dec, [facility] [place] [facility] [address] [id number] [place] [address]- 9902 Dec, [facility] [place] [facility] [address] [id number] [place] [address]- 1080 Dec, [facility] [place] [facility] [address] [id number] [place] [address]- 7342 Dec, [facility] [place] [facility] [address] [id number] [place] [address]- 2031 Dec, [facility] [place] [facility] [address] [id number] [place] [address]- 0048 October, [facility] [place] [facility] [address] [id number] [place] [address]- 2872 October, [facility] [place] [facility] [address] [id number] [place] [address] October, [facility] [place] [facility] [address] [id number] [place] [address] October, [facility] [place] [facility] [address] [id number] [place] [address] Sep, [facility] [place] [facility] [address] [id number] [place] [address] Sep, [facility] [place] [facility] [address] [id number] [place] [address] Sep, [facility] [place] [facility] [address] [id number], [place] [address] Sep, [facility] [id number] [address] Sep, [facility] [id number] [address] Sep, [facility] [id number] [place] [address] Sep, [facility] [id number] [place] [address] Sep, [facility] [id number] [place] [address] Sep, [facility] [id number] [place] [id number] Sep, [facility] [id number] [place] [address] Sep, IMMUNIZATIONS No Known Immunizations SOCIAL HISTORY Never Assessed REASON FOR VISIT Toenail removal - [facility] PLAN OF CARE Activity Details Future/Pending Procedure NAIL REMOVAL PERMANENT (PARTIAL OR COMPLETE) VITAL SIGNS Height 62 in 2018-01-03 Weight 313.1 lbs 2018-01-03 Temperature 99.2 degrees Fahrenheit 2018-01-03 Heart Rate 65 bpm 2018-01-03 Respiratory Rate 20 2018-01-03 Oximetry w/ oxygen:90 % 2018-01-03 BMI 57.26 kg/m2 2018-01-03 Blood pressure systolic 110 mmHg 2018-01-03 Blood pressure diastolic 60 mmHg 2018-01-03 MEDICATIONS Medication Instructions Dosage Frequency Start Date End Date Duration Status Glucophage 500 MG 1 TABLET BY ORAL ROUTE 1 TIME PER DAY WITH MEALS TWICE DAILY. Active Aspirin 81 mg take 1 tablet (81 mg) by oral route once daily Sep, Active Lomotil 2.5-0.025 MG Orally Four times a day 1 tablet as needed 6h Dec, Active ProAir HFA 108 (90 Base) MCG/ACT Inhalation every 6 hrs 2 puffs as needed 6h Nov, Active Lasix 80 MG Orally Once a day 1 tablet 24h Dec, Active Wheelchair - to use for mobility daily Bariatric 24h 10 Aug, 2016 Active Flexeril 10 mg take 1 tablet (10 mg) by oral route 3 times per day PRN pain Jan, Active Imdur 30 MG Orally Once a day 1 tablet 24h Active Polysaccharide Iron Complex 150 MG Orally 2 times a day 1 capsule 12h Mar, Not-Taking Omeprazole 40 MG Orally Once a day 1 capsule 24h Not-Taking Fentanyl 100 MCG/HR Transdermal every 72 hours 1 Patch Dec, 28 days Active Wheelchair - use heavy duty wheel chair for mobility 24h Nov, Active Clindamycin HCl 150 MG Orally 4 times a day 1 capsule 6h Dec, Dec, 10 days Active Toprol XL 25 mg 0.5 Tablet by Oral route 1 time per day Nov, Active Albuterol Sulfate HFA 108 (90 Base) MCG/ACT Inhalation every 4 hrs 2 puffs as needed 4h Jul, Not-Taking Synthroid 200 MCG TAKE 1 TABLET (175 MCG) BY ORAL ROUTE ONCE DAILY Active Potassium Chloride Angie ER 20 meq Orally Twice a day 1 tablet 12h Active Percocet 7.5-325 MG Orally 3 times a day 1 tablet 8h Dec, 28 days Active Lipitor 80 MG Orally Once a day 1 tablet 24h Active Latanoprost 0.005 % Ophthalmic Once a day 1 drop into affected eye in the evening 24h Active Commode Bedside - Bariatric Bed Side Commode Nov, Not- Taking RESULTS No Results PROCEDURES Procedure Date Ordered Result Body Site REMOVAL OF NAIL BED January 03, 2018 INSTRUCTIONS MEDICATIONS ADMINISTERED No Known Medications MEDICAL [...] problems 09/2015 Hospitalization History Acute dyspnea, muscle cramps--[facility] 03/04/16 Hospitalization History RLE Cellulitis, Hypokalemia, anemia-[facility] 09/29/15 Hospitalization History Lower edema 09/2016 Hospitalization History Received stitches ER 10/2016
--- OUTSIDE RECORDS SUMMARY | 2018-03-19 23:53 | XMS REPORT ---
Author Author STELLA OCHOA Organization [facility] Address [address] 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 [employer] Operator Name Role Phone STELLA OCHOA Unavailable PROBLEMS Type Condition ICD9-CM Code NTG50-KN Code Onset Dates Condition Status SNOMED Code Problem Prediabetes R73.09 Active 3890930 Problem Arthritis M19.90 Active 2405974 Problem Hypokalemia E87.6 Active 29263380 Problem Coronary artery disease involving pilot point coronary artery of pilot point heart without angina pectoris I25.10 Active 2791091776836 Problem Skin cancer of face C44.300 Active 116138841 Problem Morbid (severe) obesity due to excess calories E66.01 Active 206409911 Problem Body mass index (BMI) of 45.0-49.9 in adult Z68.42 Active 383804464 Problem Venous insufficiency I87.2 Active 83535699 Problem 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 [address] [facility] [id number], [place] [address] Jan, Ar[address]ritis M19.90 [facility] [address] [id number] [address] Jan, Back pain M54.[address] [facility] [address] [facility] [id number], [place] [address] Jan, [facility] [address] [facility] [id number], [place] [address] 3956 Jan, Back pain M54.9 [facility] [address] [facility] [id number] [place] [address] 44391- 4436 Jan, Arthritis M19.90 [facility] [id number] [place] [address] 42110- 8986 Jan, Back pain M54.9 [facility] [address] [facility] [id number] [place] [address] 61098- 6367 Jan, [facility] [address] [facility] [id number] [place] [address] 13751- 0303 Jan, Back pain M54.9 [facility] [address] [id number] [address] 0069 Dec, Ingrowing nail with infection L60.[address] [facility] [id number] [place] [address] 44870- 8341 Dec, Arthritis M19.90 [facility] [id number] [place] [address] 01201- 5017 Dec, Ingrowing nail L60.0 [facility] [address] [id number] [address] 6374 Dec, Back pain M54.9 [facility] [address] [id number] [address] Dec, [facility] [address] [facility] [id number], [place] [address] 1253 Dec, Back pain M54.9 [facility] [id number] [place] [address] 52455- 2056 Nov, Arthritis M19.90 [facility] [address] [id number] [address] 1053 Nov, [facility] [id number] [place] [address] 25028- 1826 Nov, Arthritis M19.90 ; Anemia D64.9 ; Restrictive lung disease J98.4 ; Weakness R53.1 and BMI 50.0-59.9, adult Z68.43 [facility] [id number] [place] [address] 54032- 2109 Nov, Arthritis M19.90 [facility] [address] 71688- 1235 Nov, Back pain M54.9 [place] [address] 92395- 4707 October, Back pain M54.9 [place] [address] 57488- 8128 October, Back pain M54.9 [place] [address] 54070- 9273 Sep, Back pain M54.9 [facility] [id number] [place] [address] 98137- 8435 Sep, Back pain M54.9 [facility] [id number] [place] [address] 20312 -9884 Sep, [facility] [id number] [place] [address] 37979 -9325 Sep, [facility] [id number] [place] [address] 73623 -8005 Sep, Swelling of right lower extremity M79.89 and Cellulitis of right lower extremity L03.115 [place] [address] 84107- 6883 Aug, Back pain M54.9 [facility] [id number] [place] [address] 59142- 5155 15 Aug, [address] [facility] [address] 88483- 2947 Aug, 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 ; Arthritis M19.90 ; Back pain M54.9 ; Prediabetes R73.09 ; Hypothyroidism E03.9 ; Coronary artery disease involving pilot point coronary artery of pilot point heart without angina pectoris I25.10 and Anemia D64.9 [place] [id number] [place] [address] 30475- 7236 27 Jul, 2017 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 [id number] [place] [address] 52713- 2049 15 Jul, [address] [facility] [id number] [place] [address] 70241- 9554 05 Jul, 2017 Back pain M54.9 [place] [id number] [place] [address] 62805- 4189 Jun, Back pain M54.9 [facility] [id number] [place] [address] 44457- 0929 Jun, Back pain M54.9 [facility] [id number] [place] [address] 87353 -6289 May, Skin cancer of face C44.300 and BMI 45.0-49.9, adult Z68.42 [facility] [id number] [place] [address] 43434- 6103 May, [facility] [address] 99326- 3239 May, Back pain M54.9 [facility] [address] 12367- 9313 May, Back pain M54.9 [facility] [address] 36551- 5810 May, Back pain M54.9 [facility] [address] 36694- 4703 Apr, Back pain M54.9 [facility] [address] 15890- 3556 Apr, Back pain M54.9 [facility] [address] 01464- 0308 Mar, Back pain M54.9 [facility] [address] 57565- 8781 Mar, Anemia D64.9 ; Encounter for immunization Z23 ; Arthritis M19.90 and Right inguinal hernia K40.90 [facility] [id number] [place] [address] 33162- 7265 Mar, Back pain M54.9 [facility] [address] 90920- 6695 22 Feb, [address] [facility] [address] 16680- 2644 13 Feb, [address] [facility] [address] 40197- 8146 Jan, Back pain M54.9 [facility] [address] [facility] [id number] [place] [address] 60492 2546 Jan, Back pain M54.9 [facility] [address] [facility] [id number] [place] [address] 88476 2546 Jan, [facility] [address] [facility] [id number] [place] [address] 49239 2546 Jan, Back pain M54.9 [facility] [address] [facility] [id number] [place] [address] 54877 2546 Dec, Back pain M54.9 [facility] [address] [facility] [id number] [place] [address] 00850 2546 Dec, Back pain M54.9 [facility] [address] [facility] [id number] [place] [address] 57922 2546 Dec, [facility] [address] [facility] [id number] [place] [address] 64339 2546 Nov, Hypokalemia E87.6 [facility] [address] [facility] [id number] [place] [address] 82012 2546 Nov, Back pain M54.9 [facility] [address] [facility] [id number] [place] [address] 92293 2546 Nov, [facility] [address] [facility] [id number] [place] [address] 54582 2546 Nov, Arthritis M19.90 [facility] [address] [facility] [id number] [place] [address] 44597 2546 Nov, Back pain M54.9 [facility] [address] [facility] [id number] [place] [address] 03830 2546 Nov, Generalized edema R60.1 [facility] [address] [facility] [id number] [place] [address] 47061 2546 Nov, Back pain M54.9 [facility] [id number] [place] [address] 59933- 0890 07 Nov, 2016 Pain in right knee M25.561 [place] [address] 14694- 9386 05 Nov, 2016 Encounter for removal of sutures Z48.02 and Pain in right knee M25.561 [facility] [place] [address] 79164 -8178 03 Nov, 2016 Abrasion of right foot, subsequent encounter S90.811D [facility] [place] [address] 50957 -8071 October, Toe abrasion, right, initial encounter S90.414A [place] [address] 12227- 5620 October, [place] [address] 56552- 4662 October, Back pain M54.9 [place] [address] 89032- 9059 October, Venous insufficiency I87.2 [place] [address] 31692- 3742 October, Pain in right knee M25.561 [place] [address] [place] [id number] [place] [address] 90952- 5099 Sep, Back pain M54.9 [place] [address] 54687- 5324 Sep, Venous insufficiency I87.2 [facility] [address] [id number] Sep, [facility] [place] [address] 89850 -9402 16 Sep, 2016 Leg edema, right R60.0 and Cellulitis of right lower extremity L03.115 [place] [address] 58070- 1400 14 Sep, 2016 Pedal edema R60.0 [place] [id number] [place] [address] 73339- 2731 04 Sep, 2016 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 ; Pain in right knee M25.561 and Arthritis M19.90 [place] [id number] [place] [address] 93929- 8409 Aug, Back pain M54.9 [place] [address] 18397- 6876 Aug, Back pain M54.9 [place] [address] 03081- 6904 Aug, [place] [address] [place] [id number] [place] [address] 80979- 2316 Aug, Type 2 diabetes mellitus without complication E11.9 ; Restrictive lung disease J98.4 ; Arthritis M19.90 ; Back pain M54.9 ; Body mass index (BMI) of 45.0-49.9 in adult Z68.42 and Morbid (severe) obesity due to excess calories E66.01 [place] [id number] [place] [address] 94095- 1672 Aug, Back pain M54.9 [place] [id number] [place] [address] 96924- 2026 Aug, Back pain M54.9 [place] [id number] [place] [address] 66097- 5705 Jul, [place] [id number] [place] [address] 41506- 1027 Jul, Back pain M54.9 [place] [id number] [place] [address] 54860- 8814 Jul, Back pain M54.9 [place] [id number] [place] [address] 22434- 7437 Jun, Back pain M54.9 [facility] [address] [facility] [id number] [place] [address] 22134- 7088 Jun, Back pain M54.9 [facility] [address] [facility] [id number] [place] [address] 89391 2546 May, Back pain M54.9 [facility] [address] [place] [id number] [place] [address] 14348- 0416 May, Back pain M54.9 [facility] [address] [facility] [id number] [place] [address] 82423 2548 May, Back pain M54.9 [facility] [address] [facility] [id number] [place] [address] 40156- 5950 May, Back pain M54.9 [facility] [id number] [place] [address] 17320- 1886 May, [facility] [id number] [place] [address] 14193 2540 May, Back pain M54.9 and Pain in right knee M25.561 [facility] [id number] [place] [address] 14147- 5786 Apr, [facility] [id number] [place] [address] 03209- 8124 Apr, Type 2 diabetes mellitus without complication E11.9 ; Pain in right knee M25.561 and Pain in left knee M25.562 [facility] [address] [facility] [id number] [address]- 9684 Mar, [facility] [id number] [place] [address] 12197- 1876 Mar, [facility] [address] [facility] [id number] [place] [address] 00616- 0274 Mar, [facility] [id number] [place] [address] 69931- 7891 Mar, Restrictive lung disease J98.4 ; Anemia D64.9 [address] I27.81 [facility] [address] [facility] [id number] [place] [address], [place] [address]- 1941 17 Mar, 2016 [facility] [address] [facility] [id number] [place] [address], [place] [address]- 7561 14 Mar, 2016 [facility] [address] [facility] [id number] [place] [address] 50319- 9124 Mar, [facility] [address] [facility] [id number] [place] [address], [place] [address]- 4489 30 Feb, 2016 [facility] [address] [place] [id number] [place] [address], [place] [address]- 9699 29 Feb, 2016 [facility] [address] [place] [id number] [place] [address], [place] [address]- 9425 28 Feb, 2016 [facility] [id number] [place] [address] 09447- 8200 27 Feb, 2016 [address]rict[address] disease J[address].4 [facility] [id number] [place] [address], [place] [address]- 4505 23 Feb, 2016 [facility] [id number] [place] [address] 08223 -0130 22 Feb, 2016 [facility] [address] [address]- 4506 16 Feb, 2016 [facility] [id number] [place] [address] 92558- 6833 24 Jan, 2016 [facility] [address] [id number] [address]- 4481 Jan, [facility] [id number] [place] [address] 14955- 0285 Jan, [facility] [address] [facility] [id number], [place] [address]- 2409 Jan, [facility] [id number] [place] [address] 51419- 1117 Jan, Restrictive lung disease J98.4 ; Anemia D64.9 [address] pul[address] I27.81 [facility] [id number] [place] [address] 44121- 1846 Dec, [facility] [address] [place] [id number] [place] [address] 01350- 8985 Dec, [facility] [address] 06358- 5102 Nov, Arthritis M19.[address] [facility] [address] [place] [id number] [place] [address] 29022- 7182 Nov, Back pain M54.9 [facility] [address] [place] [id number] [place] [address] 10156- 9121 October, Back pain M54.9 [facility] [address] 23903- 7432 October, Back pain M54.9 [facility] [address] [place] [place] [id number] [place] [address] 30585- 8117 Sep, Scabies exposure Z20.89 [facility] [id number] [place] [address] 54861- 9322 Sep, Restrictive lung disease J98.4 [facility] [id number] [place] [address] 91397- 4352 Sep, Back pain M54.9 [facility] [id number] [place] [address] 96670- 7468 Sep, Restrictive lung disease J98.4 [facility] [id number] [place] [address] 70074- 9593 Aug, [facility] [id number] [place] [address] 08980- 0721 Aug, [facility] [id number] [place] [address] 11942- 1647 Aug, [facility] [address] [address]- 8621 Aug, [facility] [address] [place] [id number] [place] [address] 79489- 9524 Aug, Back pain M54.9 [facility] [address] [place] [id number] [place] [address] 85231- 5046 Jul, Anemia D64.[address] [facility] [address] [place] [place] [id number] [place] [address] 05101- 1054 Jul, Back pain M54.9 [facility] [address] [place] [place] [id number] [place] [address] 70808- 6610 17 Jul, [address] [facility] [address] [place] [place] [id number] [place] [address] 42787- 6778 Jul, [facility] [address] [place] [place] [id number] [place] [address] 46811- 3790 05 Jul, 2015 Bronchitis J40 [address] Anemia [address]64.9 [facility] [address] [place] [place] [id number] [place] [address] 28439- 7927 Jun, [facility] [id number] [place] [address] 95990- 1723 Jun, [facility] [id number] [place] [address] 40878- 3695 Jun, Bronchitis J40 and An[address]9 [facility] [id number] [place] [address] 12500- 0833 Jun, [facility] [id number] [place] [address] 96280- 0245 Jun, Back pain M54.9 [facility] [id number] [place] [address] 91691- 3711 Jun, [address] D64[address]9 [facility] [id number] [place] [address] 90981- 8545 Jun, Restrictive lung disease J98.4 ; Anemia D64.9 ; Hypothyroidism E03.9 ; Cor pulmonale I27.81 and Back pain M54.9 [facility] [id number] [place] [address] 72127- 8452 May, [facility] [id number] [place] [address] 50836- 2510 Apr, Anemia D64.9 ; Encounter for immunization Z23 and Restrictive lung disease J98.4 [facility] [id number] [place] [address] 05255- 1389 Apr, [facility] [id number] [place] [address] 85091- 1505 Mar, [facility] [id number] [place] [address] 80629- 5078 Mar, Iron deficiency anemia D50.9 [facility] [id number] [place] [address] 89447- 1791 Mar, [facility] [id number] [place] [address] 96181- 3741 Mar, [facility] [id number] [place] [address] 72884- 6228 Mar, [address] D64[address]9 [facility] [id number] [place] [address] 05450- 5037 Mar, [facility] [id number] [place] [address] 61367- 1569 Mar, An[address] D64.9 [facility] [id number] [place] [address] 13923- 1843 Mar, Restrictive lung disease J98.[address] [facility] [id number] [place] [address] 99471- 4221 Mar, [facility] [id number] [place] [address] 67462- 0854 Mar, [address] D64[address]9 [facility] [id number] [place] [address] 79223- 6814 Mar, An[address] D64.9 [facility] [id number] [place] [address] 69261- 5814 Mar, [facility] [address] 68831- 0905 Mar, Diabetes mellitus E11.9 ; Bronchitis J40 and Anemia D64.9 [facility] [id number] [place] [address] 44190- 7564 Feb, [facility] [id number] [place] [address] 52306- 2143 Feb, [facility] [address] 28011- 7345 Feb, [facility] [id number] [place] [address] 59230- 6016 Feb, [facility] [id number] [place] [address] 2283 Jan, [facility] [id number] [place] [address] 67[address]- 0405 Jan, [facility] [id number] [place] [address] 82129- 7213 Dec, Venous insufficiency 459.81 [facility] [id number] [place] [address]- 6417 Dec, [facility] [id number] [place] [address]141- 1954 Dec, [facility] [id number] [place] [address] 89606- 6296 Dec, Coronary atherosclerosis of unspecified type of vessel, pilot point or graft 414.00 ; Unspecified anemia 285.9 and Generalized osteoarthrosis , unspecified site 715.00 [facility] [id number] [address] 28[address] Nov, [facility] [id number] [address] 7769 Nov, [facility] [id number] [address] 6[address] Nov, [facility] [id number], [place] [address] 0[address] October, [facility] [id number] [address] 3603 October, Acute bronchitis 466.0 and Shortness of breath 786.05 [facility] [id number] [address] 6917 Sep, [facility] [id number] [place] [address] 36874- 9164 Sep, [facility] [id number] [address] Aug, [facility] [id number] [address] 9320 Aug, [facility] [id number] [address] 8410 Jul, [facility] [id number], [place] [address] 2910 Jul, [facility] [id number], [place] [address]- [address], [facility] [id number] [address] 06[address] Jul, [facility] [address] [id number], [place] [address] 5061 Jun, [facility] [id number] [address]- 5037 Jun, [facility] [place] [facility] [address] [id number] [place] [address]- 5210 Jun, [facility] [place] [facility] [address] [id number] [place] [address]- 3061 Jun, [facility] [place] [facility] [address] [id number] [place] [address]- 8997 Jun, [facility] [place] [facility] [address] [id number] [place] [address]- 3524 Jun, [facility] [place] [facility] [address] [id number] [place] [address]- 8039 May, [facility] [place] [facility] [address] [id number] [place] [address]- 6204 May, [facility] [place] [facility] [address] [id number] [place] [address]- 6333 May, [facility] [place] [facility] [address] [id number] [place] [address]- 6300 May, [facility] [place] [facility] [address] [id number] [place] [address]- 6425 Apr, [facility] [place] [facility] [address] [id number] [place] [address]- 2724 Apr, [facility] [place] [facility] [address] [id number] [place] [address]- 6708 Apr, [facility] [place] [facility] [address] [id number] [place] [address]- 6321 Apr, [facility] [place] [facility] [address] [id number] [place] [address]- 3573 Apr, [facility] [place] [facility] [address] [id number] [place] [address]- 0731 Apr, [facility] [place] [facility] [address] [id number] [place] [address]- 7787 Mar, [facility] [place] [facility] [address] [id number] [place] [address]- 4525 Mar, [facility] [place] [facility] [address] [id number] [place] [address]- 2114 Mar, [facility] [place] [facility] [address] [id number] [place] [address]- 5333 Mar, [facility] [place] [facility] [address] [id number] [place] [address]- 6098 Mar, [facility] [place] [facility] [address] [id number] [place] [address]- 4877 Mar, [facility] [place] [facility] [address] [id number] [place] [address]- 8777 Mar, [facility] [place] [facility] [address] [id number] [place] [address]- 3041 Mar, [facility] [place] [facility] [address] [id number] [place] [address]- 2646 Feb, [facility] [place] [facility] [address] [id number] [place] [address]- 9273 Feb, [facility] [place] [facility] [address] [id number] [place] [address]- 5596 Jan, [facility] [place] [facility] [address] [id number] [place] [address]- 7860 Jan, [facility] [place] [facility] [address] [id number] [place] [address]- 4518 Jan, [facility] [place] [facility] [address] [id number] [place] [address]- 4708 Jan, [facility] [place] [facility] [address] [id number] [place] [address]- 0482 Jan, [facility] [place] [facility] [address] [id number] [place] [address]- 0250 Jan, [facility] [place] [facility] [address] [id number] [place] [address]- 9695 Dec, [facility] [place] [facility] [address] [id number] [place] [address]- 6171 Dec, [facility] [place] [facility] [address] [id number] [place] [address]- 8168 Dec, [facility] [place] [facility] [address] [id number] [place] [address]- 2453 Dec, [facility] [place] [facility] [address] [id number] [place] [address]- 6633 Nov, [facility] [place] [facility] [address] [id number] [place] [address]- 7342 Nov, [facility] [place] [facility] [address] [id number] [place] [address]- 8428 Nov, [facility] [place] [facility] [address] [id number] [place] [address]- 2006 Nov, [facility] [place] [facility] [address] [id number] [place] [address]- 7104 Nov, [facility] [place] [facility] [address] [id number] [place] [address]- 4865 Nov, [facility] [place] [facility] [address] [id number] [place] [address]- 7267 Nov, [facility] [place] [facility] [address] [id number] [place] [address]- 1736 Nov, [facility] [place] [facility] [address] [id number] [place] [address]- 8790 Nov, [facility] [place] [facility] [address] [id number] [place] [address]- 3035 Nov, [facility] [place] [facility] [address] [id number] [place] [address]- 6734 Nov, [facility] [place] [facility] [address] [id number] [place] [address]- 5454 Nov, [facility] [place] [facility] [address] [id number] [place] [address]- 1870 October, [facility] [place] [facility] [address] [id number] [place] [address]- 3368 October, [facility] [place] [facility] [address] [id number] [place] [address]- 5342 October, [facility] [place] [facility] [address] [id number] [place] [address]- 4607 October, [facility] [place] [facility] [address] [id number] [place] [address]- 7263 October, [facility] [place] [facility] [address] [id number] [place] [address]- 7743 October, [facility] [place] [facility] [address] [id number] [place] [address]- 5743 October, [facility] [place] [facility] [address] [id number] [place] [address]- 5139 October, [facility] [place] [facility] [address] [id number] [place] [address]- 4049 October, [facility] [place] [facility] [address] [id number] [place] [address]- 4362 Sep, [facility] [place] [facility] [address] [id number] [place] [address]- 0743 Sep, [facility] [place] [facility] [address] [id number] [place] [address]- 6774 Sep, [facility] [place] [facility] [address] [id number] [place] [address]- 8957 Sep, [facility] [place] [facility] [address] [id number] [place] [address]- 2203 Sep, [facility] [place] [facility] [address] [id number] [place] [address]- 9065 Sep, [facility] [place] [facility] [address] [id number] [place] [address]- 5727 Aug, [facility] [place] [facility] [address] [id number] [place] [address]- 2849 Aug, [facility] [place] [facility] [address] [id number] [place] [address]- 0364 Aug, [facility] [place] [facility] [address] [id number] [place] [address]- 4607 Aug, [facility] [place] [facility] [address] [id number] [place] [address]- 1586 Aug, [facility] [place] [facility] [address] [id number] [place] [address]- 0016 Aug, [facility] [place] [facility] [address] [id number] [place] [address]- 4708 Aug, [facility] [place] [facility] [address] [id number] [place] [address]- 5855 Aug, [facility] [place] [facility] [address] [id number] [place] [address]- 0886 Aug, [facility] [place] [facility] [address] [id number] [place] [address]- 6656 Aug, [facility] [place] [facility] [address] [id number] [place] [address]- 8179 Jul, [facility] [place] [facility] [address] [id number] [place] [address]- 9745 Jul, [facility] [place] [facility] [address] [id number] [place] [address]- 9979 Jun, [facility] [place] [facility] [address] [id number] [place] [address]- 8621 Jun, [facility] [place] [facility] [address] [id number] [place] [address]- 6445 Jun, [facility] [place] [facility] [address] [id number] [place] [address]- 9279 Jun, [facility] [place] [facility] [address] [id number] [place] [address]- 1368 Jun, [facility] [place] [facility] [address] [id number] [place] [address]- 4409 Jun, [facility] [place] [facility] [address] [id number] [place] [address]- 6768 Jun, [facility] [place] [facility] [address] [id number] [place] [address]- 2716 Jun, [facility] [place] [facility] [address] [id number] [place] [address]- 2371 May, [facility] [place] [facility] [address] [id number] [place] [address]- 1560 May, [facility] [place] [facility] [address] [id number] [place] [address]- 4990 May, [facility] [place] [facility] [address] [id number] [place] [address]- 3124 May, [facility] [place] [facility] [address] [id number] [place] [address]- 8180 May, [facility] [place] [facility] [address] [id number] [place] [address]- 4011 May, [facility] [place] [facility] [address] [id number] [place] [address]- 5113 May, [facility] [place] [facility] [address] [id number] [place] [address]- 7206 May, [facility] [place] [facility] [address] [id number] [place] [address]- 4662 May, [facility] [place] [facility] [address] [id number] [place] [address]- 5295 Apr, [facility] [place] [facility] [address] [id number] [place] [address]- 9234 Apr, [facility] [place] [facility] [address] [id number] [place] [address]- 3801 Apr, [facility] [place] [facility] [address] [id number], [place] [address]- 3131 Apr, [facility] [place] [facility] [address] [id number] [place] [address]- 5331 30 Mar, 2012 [facility] [place] [facility] [address] [id number], [place] [address]- 0131 Mar, 2012 [facility] [place] [facility] [address] [id number], [place] [address]- 9069 Mar, 2012 [facility] [place] [facility] [address] [id number], [place] [address]- 5602 Mar, 2012 [facility] [place] [facility] [address] [id number] [place] [address]- 4915 Mar, 2012 [facility] [place] [facility] [address] [id number], [place] [address]- 6271 Mar, 2012 [facility] [place] [facility] [address] [id number], [place] [address]- 7602 Mar, 2012 [facility] [place] [facility] [address] [id number], [place] [address]- 5424 Mar, [facility] [place] [facility] [address] [id number], [place] [address]- 4420 Mar, 2012 [facility] [place] [facility] [address] [id number], [place] [address]- 1215 Mar, [facility] [place] [facility] [address] [id number], [place] [address]- 6062 Mar, 2012 [facility] [place] [facility] [address] [id number], [place] [address]- 4163 Mar, [facility] [place] [facility] [address] [id number], [place] [address]- 4065 Mar, 2012 [facility] [place] [facility] [address] [id number], [place] [address]- 8352 Mar, 2012 [facility] [place] [facility] [address] [id number], [place] [address]- 4401 Mar, 2012 [facility] [place] [facility] [address] [id number] [place] [address]- 1016 18 Mar, 2012 [facility] [address] [id number] [place] [address]- 5681 17 Mar, 2012 [facility] [place] [facility] [address] [id number] [place] [address]- 5930 17 Mar, 2012 [facility] [address] [id number] [place] [address]- 2979 15 Mar, 2012 [facility] [place] [facility] [address] [id number] [place] [address]- 8306 15 Mar, 2012 [facility] [address] [id number] [place] [address]- 9641 14 Mar, 2012 [facility] [place] [facility] [address] [id number] [place] [address]- 5900 14 Mar, 2012 [facility] [place] [facility] [address] [id number] [place] [address]- 4766 14 Mar, 2012 [facility] [place] [facility] [address] [id number] [place] [address]- 4275 14 Mar, 2012 [facility] [place] [facility] [address] [id number] [place] [address]- 9387 12 Mar, 2012 [facility] [address] [id number] [place] [address]- 9281 11 Mar, 2012 [facility] [place] [facility] [address] [id number] [place] [address]- 8057 11 Mar, 2012 [facility] [place] [facility] [address] [id number] [place] [address]- 7786 10 Mar, 2012 [facility] [place] [facility] [address] [id number] [place] [address]- 5751 10 Mar, 2012 [facility] [place] [facility] [address] [id number] [place] [address]- 4537 10 Mar, 2012 [facility] [place] [facility] [address] [id number] [place] [address]- 1486 Mar, [facility] [place] [facility] [address] [id number] [place] [address]- 4625 Mar, [facility] [place] [facility] [address] [id number] [place] [address]- 1156 Mar, [facility] [place] [facility] [address] [id number] [place] [address]- 4246 Feb, [facility] [place] [facility] [address] [id number] [place] [address]- 0303 Feb, [facility] [place] [facility] [address] [id number] [place] [address]- 9566 Feb, [facility] [place] [facility] [address] [id number] [place] [address]- 6346 Feb, [facility] [place] [facility] [address] [id number] [place] [address]- 9225 Jan, [facility] [place] [facility] [address] [id number] [place] [address]- 1572 Jan, [facility] [place] [facility] [address] [id number] [place] [address]- 1445 Jan, [facility] [place] [facility] [address] [id number] [place] [address]- 5264 Jan, [facility] [place] [facility] [address] [id number] [place] [address]- 9309 Jan, [facility] [place] [facility] [address] [id number], [place] [address]- 2519 Jan, [facility] [place] [facility] [address] [id number] [place] [address]- 4543 Dec, [facility] [place] [facility] [address] [id number] [place] [address]- 7014 Dec, [facility] [place] [facility] [address] [id number] [place] [address]- 9434 Dec, [facility] [place] [facility] [address] [id number] [place] [address]- 6054 Dec, [facility] [address] [id number] [place] [address]- 4499 Dec, [facility] [place] [facility] [address] [id number] [place] [address]- 2135 Dec, [facility] [address] [id number] [place] [address]- 2376 Dec, [facility] [address] [id number] [place] [address]- 1482 16 Dec, 2012 [facility] [address] [id number] [place] [address]- 8607 Dec, [facility] [address] [id number] [place] [address]- 6633 Dec, [facility] [address] [id number] [place] [address]- 3814 Dec, [facility] [address] [id number] [place] [address]- 0197 October, [facility] [address] [id number] [place] [address]- 3811 October, [facility] [address] [id number] [place] [address]- 6928 October, [facility] [address] [id number] [place] [address]- 2763 October, [facility] [place] [facility] [address] [id number] [place] [address]- 0722 30 Sep, 2012 [facility] [place] [facility] [address] [id number] [place] [address]- 4193 30 Sep, 2012 [facility] [place] [facility] [address] [id number] [place] [address]- 1483 29 Sep, 2012 [facility] [place] [facility] [address] [id number] [place] [address]- 6148 Sep, [facility] [place] [facility] [address] [id number] [address] Sep, [facility] [address] [id number] [address] Sep, [facility] [id number] [address] 2407 Sep, [facility] [id number], [place] [address]- [address]884 Sep, [facility] [id number], [place] [address]- 7201 Sep, [facility] [id number] [address]- 3124 Sep, [facility] [id number] [address]- 0900 Sep, IMMUNIZATIONS No Known Immunizations SOCIAL HISTORY Never Assessed REASON FOR VISIT toe pain, right big toe red swollen and possibly ingrown-[facility] PLAN OF CARE Activity Details Follow Up with Vip[facility] as scheduled Reason: VITAL SIGNS Height 62 in 2017-12-26 Temperature 98.3 degrees Fahrenheit 2017-12-26 Heart Rate 53 bpm 2017-12-26 Respiratory Rate 20 2017-12-26 Oximetry 95 % 2017-12-26 Blood pressure systolic 112 mmHg 2017-12-26 Blood pressure diastolic 72 mmHg 2017-12-26 MEDICATIONS Medication Instructions Dosage Frequency Start Date End Date Duration Status Toprol XL 25 mg 0.5 Tablet by Oral route 1 time per day Nov, Active Commode Bedside - Bariatric Bed Side Commode Nov, Not- Taking Wheelchair - to use for mobility daily Bariatric 24h Aug, Active Imdur 30 MG Orally Once a day 1 tablet 24h Active Lomotil 2.5-0.025 MG Orally Four times a day 1 tablet as needed 6h Dec, Active Aspirin 81 mg take 1 tablet (81 mg) by oral route once daily Sep, Active Lipitor 80 MG Orally Once a day 1 tablet 24h Active Albuterol Sulfate HFA 108 (90 Base) MCG/ACT Inhalation every 4 hrs 2 puffs as needed 4h Jul, Not-Taking Synthroid 200 MCG TAKE 1 TABLET (175 MCG) BY ORAL ROUTE ONCE DAILY Active Flexeril 10 mg take 1 tablet (10 mg) by oral route 3 times per day PRN pain Jan, Active ProAir HFA 108 (90 Base) MCG/ACT Inhalation every 6 hrs 2 puffs as needed 6h Nov, Active Glucophage 500 MG 1 TABLET BY ORAL ROUTE 1 TIME PER DAY WITH MEALS TWICE DAILY. Active Potassium Chloride Angie ER 20 meq Orally Twice a day 1 tablet 12h Active Polysaccharide Iron Complex 150 MG Orally 2 times a day 1 capsule 12h Mar, Not-Taking Fentanyl 100 MCG/HR Transdermal every 72 hours 1 Patch Dec, 28 days Active Lasix 80 MG Orally Once a day 1 tablet 24h Dec, Active Latanoprost 0.005 % Ophthalmic Once a day 1 drop into affected eye in the evening 24h Active Percocet 7.5-325 MG Orally 3 times a day 1 tablet 8h Nov, 28 days Active Clindamycin HCl 150 MG Orally 4 times a day 1 capsule 6h Dec, Dec, 10 days Active Omeprazole 40 MG Orally Once a day 1 capsule 24h Not-Taking Wheelchair - use heavy duty wheel chair for mobility 24h Nov, Active RESULTS No Results PROCEDURES No Known [...] problems 09/2015 Hospitalization History Acute dyspnea, muscle cramps--[facility] 03/04/16 Hospitalization History RLE Cellulitis, Hypokalemia, anemia-[facility] 09/29/15 Hospitalization History Lower edema 09/2016 Hospitalization History Received stitches ER 10/2016
--- OUTSIDE RECORDS SUMMARY | 2018-03-19 23:53 | XMS REPORT ---
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 Name Role Phone JAN HERNANDEZ Unavailable PROBLEMS Type Condition ICD9-CM Code [id number] Code Onset Dates Condition Status SNOMED Code Problem Prediabetes R73.09 Active 3850162 Problem Arthritis M19.90 Active 6997011 Problem Hypokalemia E87.6 Active 36807026 Problem Coronary artery disease involving [place] coronary artery of [place] heart without angina pectoris I25.10 Active 4199505667051 Problem Skin cancer of face C44.300 Active 092409634 Problem Morbid (severe) obesity due to excess calories E66.01 Active 363136805 Problem Body mass index (BMI) of 45.0-49.9 in adult Z68.42 Active 634779703 Problem Venous insufficiency I87.2 Active 94917950 Problem 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 Active 504199026 Problem Anemia D64.9 Active 738408974 Problem Cor pulmonale I27.81 Active 10544525 Problem Back pain M54.9 Active 079179059 Problem Restrictive lung disease J98.4 Active 72433988 Problem Hypothyroidism E03.9 Active 16257138 ALLERGIES No Information ENCOUNTERS Encounter Location Date Diagnosis [facility] [id number] [address] Jan, Arthritis M19.90 [facility] [address], [place] [address] Jan, Back pain M54.9 and Arthritis M19.90 [facility] [id number] [address] Jan, [facility] [address], [place] [address] 65[address] Jan, Back pain M54.9 [facility] [address] [address] 3[address] Jan, Arthritis M19.90 [facility] [address] [place] [address] 23949- 9539 Jan, Back pain M54.9 [facility] [id number] [place] [address] 09327- 9280 Jan, [facility] [id number] [place] [address] 31793- 5205 Jan, Back pain M54.9 [facility] [id number] [place] [address] 18392- 4922 Dec, Ingrowing nail with infection L60.0 and Onychomycosis B35.1 [facility] [id number] [place] [address] 97971- 1390 Dec, Arthritis M19.90 [facility] [id number] [place] [address] 64079- 4729 Dec, Ingrowing nail L60.0 [facility] [id number] [place] [address] 03611- 2401 Dec, Back pain M54.[address] [facility] [id number] [place] [address] 93733 -3078 Dec, [facility] [id number] [place] [address] 48181- 2397 Dec, Back pain M54.9 [facility] [address] [address] 3871 Nov, Arthritis M19.90 [facility] [address] [place] [address] 75972- 8195 Nov, [facility] [address], [place] [address] 6125 Nov, Arthritis M19.90 ; Anemia D64.9 ; Restrictive lung disease J98.4 ; Weakness R53.1 and BMI 50.0-59.9, adult Z68.43 [facility] [address] [address]- 7131 Nov, Arthritis M19.90 [facility] [id number] [place] [address] 65318- 5824 Nov, Back pain M54.9 [facility] [address] 84118- 3746 October, Back pain M54.9 [facility] [address] 47165- 4133 October, Back pain M54.9 [facility] [id number] [place] [address] 49702- 5504 Sep, Back pain M54.9 [facility] [address] 65797- 6555 Sep, Back pain M54.9 [facility] [id number] [place] [address] 55304 -5635 Sep, [facility] [id number] [place] [address] 96168 -7103 Sep, [facility] [id number] [place] [address] 04609 -6177 Sep, Swelling of right lower extremity M79.89 and Cellulitis of right lower extremity L03.115 [facility] [id number] [place] [address] 23700- 2258 27 Aug, 2017 Back pain M54.9 [facility] [id number] [place] [address] 02385- 3981 15 Aug, 2017 Back pain M54.9 [facility] [id number] [place] [address] 45607- 6274 13 Aug, 2017 [facility] [address] [place] [address]- 5062 13 Aug, 2017 Cellulitis of right lower extremity L03.115 ; Ventral hernia without obstruction or gangrene K43.9 and BMI 50.0-59.9, adult Z68.43 [place] [address] 32644- 3152 28 Jul, 2017 Back pain M54.9 [place] [address] 45504- 9273 28 Jul, 2017 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 Z79.891 ; Arthritis M19.90 ; Back pain M54.9 ; Prediabetes R73.09 ; Hypothyroidism E03.9 ; Coronary artery disease involving [place] coronary artery of [place] heart without angina pectoris I25.10 and Anemia D64.9 [place] [address] 40354- 2694 27 Jul, 2017 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 Z79.891 ; Back pain M54.9 ; Arthritis M19.90 ; Prediabetes R73.09 ; Hypothyroidism E03.9 ; Coronary artery disease involving [place] coronary artery of [place] heart without angina pectoris I25.10 ; Anemia D64.9 and BMI 45.0-49.9, adult Z68.42 [place] [id number] [place] [address] 09550- 3800 15 Jul, 2017 Back pain M54.9 [place] [address] 81689- 6760 05 Jul, 2017 Back pain M54.9 [place] [id number] [place] [address] 05818- 0175 Jun, Back pain M54.9 [place] [address] 65502- 7018 Jun, Back pain M54.[address] [facility] [id number] [place] [address] 99005 -5621 May, Skin cancer of face C44.300 and BMI 45.0-49.9, adult Z68.42 [facility] [id number] [place] [address] 60406- 7912 May, [facility] [address] 78590- 3671 May, Back pain M54.9 [facility] [address] 95177- 3057 May, Back pain M54.9 [facility] [address] 12717- 1536 May, Back pain M54.9 [facility] [address] 83327- 1898 Apr, Back pain M54.9 [facility] [address] 51956- 4585 Apr, Back pain M54.9 [facility] [address] 57775- 2287 Mar, Back pain M54.9 [facility] [address] 06126- 2219 Mar, Anemia D64.9 ; Encounter for immunization Z23 ; Arthritis M19.90 and Right inguinal hernia K40.90 [facility] [address] 09604- 6650 Mar, Back pain M54.9 [facility] [id number] [place] [address] 72392- 2058 Feb, Back pain M54.9 [facility] [address] 77147- 6760 13 Feb, 2017 Back pain M54.9 [facility] [id number] [place] [address] 11005- 6082 Jan, Back pain M54.9 [facility] [address] [place] [address] 5496 Jan, Back pain M54.9 [facility] [id number] [place] [address] 48152 2546 Jan, [facility] [id number] [place] [address] 17124 2546 Jan, Back pain M54.9 [facility] [id number] [place] [address] 14343 2546 Dec, Back pain M54.9 [facility] [id number] [place] [address] 84284 2546 Dec, Back pain M54.9 [facility] [id number] [place] [address] 15231 2546 Dec, [facility] [id number] [place] [address] 11776- 6875 Nov, Hypokalemia E87.6 [facility] [id number] [place] [address] 04882 2545 Nov, Back pain M54.9 [facility] [id number] [place] [address] 25341 2546 Nov, [facility] [id number] [place] [address] 96609 2547 Nov, Arthritis M19.90 [facility] [id number] [place] [address] 90750 2546 Nov, Back pain M54.9 [facility] [id number] [place] [address] 73592 2546 Nov, Generalized edema R60.1 [facility] [id number] [place] [address] 81228 2546 Nov, Back pain M54.9 [facility] [id number] [place] [address] 46866 2546 Nov, Pain in right knee M25.561 [facility] [address], [place] [address]- 0775 05 Nov, 2016 Encounter for removal of sutures Z48.02 and Pain in right knee M25.[address] [facility] [place] [address] [place] [address] 93878 -5605 Nov, Abrasion of right foot, subsequent encounter S90.811D [facility] [place] [id number] [place] [address] 70752 -5561 October, Toe abrasion, right, initial encounter S90.414A [place] [id number] [place] [address] 63375- 3853 October, [place] [id number] [place] [address] 86946- 3117 October, Back pain M54.9 [place] [id number] [place] [address] 98349- 5679 October, Venous insufficiency I87.2 [place] [id number] [place] [address] 58378- 7996 October, Pain in right knee M25.561 [place] [id number] [place] [address] 65312- 9009 Sep, Back pain M54.9 [place] [address] [place] [address] 55637- 6479 Sep, Venous insufficiency I87.2 [facility] [id number] [place] [address] [id number] Sep, 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 ; Pain in right knee M25.561 and Arthritis M19.90 [facility] [id number] [place] [address] 16778- 6028 Aug, Back pain M54.9 [facility] [id number] [place] [address] 44294- 8449 Aug, Back pain M54.9 [facility] [id number] [place] [address] 47226- 1199 Aug, [facility] [id number] [place] [address] 89114- 4022 Aug, Type 2 diabetes mellitus without complication E11.9 ; Restrictive lung disease J98.4 ; Arthritis M19.90 ; Back pain M54.9 ; Body mass index (BMI) of 45.0-49.9 in adult Z68.42 and Morbid (severe) obesity due to excess calories E66.01 [facility] [id number] [place] [address] 43853- 9796 Aug, Back pain M54.9 [facility] [id number] [place] [address] 38335- 4066 Aug, Back pain M54.9 [facility] [id number] [place] [address] 04993- 7105 Jul, [facility] [id number] [place] [address] 61094- 7994 Jul, Back pain M54.9 [facility] [id number] [place] [address] 37204- 2018 Jul, Back pain M54.9 [facility] [id number] [place] [address] 08007- 2725 Jun, Back pain M54.9 [facility] [id number] [place] [address] 39184- 0332 Jun, Back pain M54.9 [facility] [id number] [place] [address] 43424- 0241 May, Back pain M54.9 [facility] [id number] [place] [address] 46905- 9636 May, Back pain M54.9 [facility] [id number] [place] [address] 33709- 0016 May, Back pain M54.9 [facility] [id number] [place] [address] 74026- 6016 May, Back pain M54.9 [facility] [id number] [place] [address] 61352- 0767 May, [facility] [id number] [place] [address] 68126- 8803 May, Back pain M54.9 and Pain in right knee M25.561 [facility] [id number] [place] [address] 47420- 2986 Apr, [facility] [id number] [place] [address] 90585- 1325 Apr, Type 2 diabetes mellitus without complication E11.9 ; Pain in right knee M25.561 and Pain in left knee M25.562 [facility] [id number] [place] [address] 49813- 2053 Mar, [facility] [id number] [place] [address] 22201- 8688 Mar, [facility] [id number] [place] [address] 41341- 3267 Mar, [facility] [id number] [place] [address] 97959- 1070 Mar, Restrictive lung disease J98.4 ; Anemia D64.9 and Cor pulmonale I27.81 [facility] [id number], [place] [address]- 4951 17 Mar, 2016 [facility] [address] [facility] [id number] [place] [address] 31072- 4452 14 Mar, 2016 [facility] [address] [facility] [id number] [place] [address]- 2821 03 Mar, 2016 [facility] [address] [place] [address] 21518- 3518 30 Feb, 2015 [facility] [address] [facility] [id number] [place] [address], [place] [address]- 8847 29 Feb, 2015 [facility] [id number] [place] [address], [place] [address]- 1795 28 Feb, 2016 [facility] [address] [facility] [id number] [place] [address], [place] [address]- 6328 27 Feb, 2015 Restrictive lung disease J98.4 [facility] [address] [place] [address] 06830- 0468 23 Feb, [address] [facility] [id number], [place] [address] -4186 22 Feb, 2016 [facility] [address] [address]- 1352 16 Feb, 2016 [facility] [address], [place] [address]- 2076 24 Jan, 2016 [facility] [address], [place] [address]- 3090 Jan, [facility] [id number] [address]- 1117 Jan, [facility] [address] [place] [address] 80715- 3392 Jan, [facility] [address], [place] [address]- 4514 Jan, Restrictive lung disease J98.4 ; Anemia D64.9 and Cor pulmonale I27.81 [facility] [id number] [place] [address] 61572- 7770 Dec, [facility] [id number] [place] [address] 03790- 8877 Dec, [facility] [id number] [place] [address] 17307- 3392 14 Nov, 2015 Arthritis M19.90 and Hypokalemia E87.6 [facility] [id number] [place] [address] 35283- 7772 Nov, Back pain M54.9 [facility] [id number] [place] [address] 83869- 1171 October, Back pain M54.9 [facility] [id number] [place] [address] 25636- 1691 October, Back pain M54.9 [facility] [id number] [place] [address] 44479- 4514 Sep, Scabies exposure Z20.89 [facility] [id number] [place] [address] 45784- 4909 Sep, Restrictive lung disease J98.4 [facility] [id number] [place] [address] 31587- 9955 Sep, Back pain M54.9 [facility] [id number] [place] [address] 92600- 9853 Sep, Restrictive lung disease J98.4 [facility] [address] [place] [address] 02547- 4966 Aug, [facility] [id number] [place] [address] 07082- 2370 Aug, [facility] [id number] [place] [address] 18721- 9821 Aug, [facility] [id number] [place] [address] 88327- 0282 Aug, [facility] [id number] [place] [address] 51241- 7314 Aug, Back pain M54.9 [facility] [id number] [place] [address] 95331- 0066 Jul, Anemia D64.9 and Prediabetes R73.09 [facility] [address] 96893- 6486 Jul, Back pain M54.9 [facility] [id number] [place] [address] 66161- 2348 17 Jul, 2015 Back pain M54.9 [facility] [id number] [place] [address] 83639- 1444 Jul, [facility] [id number] [place] [address] 71749- 5601 Jul, Bronchitis J40 and Anemia D64.9 [facility] [id number] [place] [address] 96254- 1067 Jun, [facility] [address] 19961- 9117 Jun, [facility] [id number] [place] [address] 67549- 6725 Jun, Bronchitis J40 and Anemia D64.9 [facility] [id number] [place] [address] 86446- 0961 Jun, [facility] [id number] [place] [address] 39295- 5645 Jun, Back pain M54.9 [facility] [id number] [place] [address] 93565- 8659 Jun, Anemia D64.9 [facility] [id number] [place] [address] 94043- 8363 Jun, Restrictive lung disease J98.4 ; Anemia D64.9 ; Hypothyroidism E03.9 ; Cor pulmonale I27.81 and Back pain M54.9 [facility] [address] 02332- 3585 May, [facility] [address] 19080- 4092 Apr, Anemia D64.9 ; Encounter for immunization Z23 and Restrictive lung disease J98.4 [facility] [address] 87240- 6504 Apr, [facility] [address] 32346- 9934 Mar, [facility] [address] 45202- 0848 Mar, Iron deficiency anemia D50.9 [facility] [address] 24110- 2214 Mar, [facility] [address] 71514- 3577 Mar, [facility] [address] 21442- 4457 Mar, Anemia D64.9 [facility] [address] 29870- 2833 Mar, [facility] [address] 03727- 0805 Mar, Anemia D64.9 [facility] [id number] [place] [address] 52545- 3163 Mar, Restrictive lung disease J98.4 and Anemia D64.9 [facility] [id number] [place] [address] 43949- 8547 Mar, [facility] [id number] [place] [address] 40656- 9145 Mar, Anemia D64.9 [facility] [id number] [address] 3607 Mar, Anemia D64.9 [facility] [id number] [place] [address] 48336- 9983 Mar, [facility] [id number] [place] [address] [id number]- 0412 Mar, Diabetes mellitus E11.9 ; Bronchitis J40 and Anemia D64.9 [facility] [id number] [place] [address] [id number]- [id number] 30 Feb, 2015 [facility] [id number] [place] [address] [phone]- [phone] Feb, [facility] [id number] [place] [address] [id number]- [phone] Feb, [facility] [id number] [place] [address] [phone]- [phone] Feb, [facility] [id number] [place] [address] [id number]- [id number] Jan, [facility] [id number] [place] [address] 46391- 8419 Jan, [facility] [id number] [place] [address] [id number]- 7403 Dec, Venous insufficiency 459.81 [facility] [id number] [place] [address] [id number]- 4164 Dec, [facility] [id number] [place] [address] [phone]- 6845 Dec, [facility] [id number] [place] [address] [phone]- 3638 Dec, Coronary atherosclerosis of unspecified type of vessel, [place] or graft 414.00 ; Unspecified anemia 285.9 and Generalized osteoarthrosis , unspecified site 715.00 [facility] [id number] [place] [address] 39516- 6588 Nov, [facility] [id number] [place] [address]- 1193 Nov, [facility] [id number] [address] Nov, [facility] [id number] [place] [place] [address] October, [facility] [id number] [place] [address], [place] [address] October, Acute bronchitis 466.0 and Shortness of breath 786.05 [facility] [id number] [place] [address], [place] [address] Sep, [facility] [id number] [place] [address] Sep, [facility] [id number] [place] [address], [place] [address] Aug, [facility] [address] [address] Aug, [facility] [id number] [place] [address] Jul, [facility] [address] [address] Jul, [facility] [id number] [place] [address] Jul, [facility] [address] [id number] [place] [address] 9[address] Jul, [facility] [id number] [place] [address]- [address] Jun, [facility] [id number] [place] [address]- 66[address] Jun, [facility] [address] [address] Jun, [facility] [place] [facility] [address] [id number] [place] [address]- 6561 Jun, [facility] [place] [facility] [address] [id number] [place] [address]- 9224 Jun, [facility] [place] [facility] [address] [id number] [place] [address]- 8436 Jun, [facility] [place] [facility] [address] [id number] [place] [address]- 9700 May, [facility] [place] [facility] [address] [id number] [place] [address]- 4100 May, [facility] [place] [facility] [address] [id number] [place] [address]- 0810 May, [facility] [place] [facility] [address] [id number] [place] [address]- 3258 May, [facility] [place] [facility] [address] [id number] [place] [address]- 4707 Apr, [facility] [place] [facility] [address] [id number] [place] [address]- 5413 Apr, [facility] [place] [facility] [address] [id number] [place] [address]- 2802 Apr, [facility] [place] [facility] [address] [id number] [place] [address]- 9652 Apr, [facility] [place] [facility] [address] [id number] [address]- 75[address] Apr, [facility] [place] [facility] [address] [id number] [place] [address]- 6836 Apr, [facility] [place] [facility] [address] [id number] [place] [address]- 9886 Mar, [facility] [place] [facility] [address] [id number] [address] Mar, [facility] [place] [facility] [address] [id number][place] [address]- 8[address] Mar, [facility] [place] [facility] [address] [id number] [place] [address]- 6525 Mar, [facility] [place] [facility] [address] [id number] [place] [address]- 1180 Mar, [facility] [place] [facility] [address] [id number] [place] [address]- 7976 Mar, [facility] [place] [facility] [address] [id number] [place] [address]- 4998 Mar, [facility] [place] [facility] [address] [id number] [place] [address]- 4007 Mar, [facility] [place] [facility] [address] [id number] [place] [address]- 4438 Feb, [facility] [place] [facility] [address] [id number] [place] [address]- 6743 Feb, [facility] [place] [facility] [address] [id number] [place] [address]- 7440 Jan, [facility] [place] [facility] [address] [id number] [place] [address]- 2675 Jan, [facility] [place] [facility] [address] [facility] [id number] [place] [address]- 3074 Jan, [facility] [place] [facility] [address] [id number] [place] [address]- 5831 Jan, [facility] [place] [facility] [address] [id number] [place] [address]- 7515 Jan, [facility] [place] [facility] [address] [id number] [place] [address]- 7693 Jan, [facility] [place] [facility] [address] [id number] [place] [address]- 3469 Dec, [facility] [place] [facility] [address] [facility] [id number] [place] [address]- 6726 Dec, [facility] [place] [facility] [address] [id number] [place] [address]- 7986 Dec, [facility] [place] [facility] [address] [id number] [place] [address]- 8117 Dec, [facility] [place] [facility] [address] [id number] [place] [address]- 2810 Nov, [facility] [place] [facility] [address] [id number] [place] [address]- 7382 Nov, [facility] [place] [facility] [address] [id number] [place] [address]- 3806 Nov, [facility] [place] [facility] [address] [id number] [place] [address]- 6990 Nov, [facility] [place] [facility] [address] [id number] [place] [address]- 2525 Nov, [facility] [place] [facility] [address] [id number] [place] [address]- 6326 Nov, [facility] [place] [facility] [address] [id number] [place] [address]- 0529 Nov, [facility] [place] [facility] [address] [id number] [place] [address]- 9963 Nov, [facility] [place] [facility] [address] [id number] [place] [address]- 7805 Nov, [facility] [place] [facility] [address] [id number] [place] [address]- 3547 Nov, [facility] [place] [facility] [address] [id number] [place] [address]- 4827 Nov, [facility] [place] [facility] [address] [id number] [place] [address]- 2037 Nov, [facility] [place] [facility] [address] [id number] [place] [address]- 6702 October, [facility] [place] [facility] [address] [id number] [place] [address]- 4172 October, [facility] [place] [facility] [address] [id number] [place] [address]- 3888 October, [facility] [place] [facility] [address] [id number] [place] [address]- 4418 October, [facility] [place] [facility] [address] [id number] [place] [address]- 5910 October, [facility] [place] [facility] [address] [id number] [place] [address]- 2395 October, [facility] [place] [facility] [address] [id number] [place] [address]- 7421 October, [facility] [place] [facility] [address] [id number] [place] [address]- 6824 October, [facility] [place] [facility] [address] [id number] [place] [address]- 3895 October, [facility] [place] [facility] [address] [id number] [place] [address]- 0990 Sep, [facility] [place] [facility] [address] [id number] [place] [address]- 0569 Sep, [facility] [place] [facility] [address] [id number] [place] [address]- 0076 Sep, [facility] [place] [facility] [address] [id number] [place] [address]- 4728 Sep, [facility] [place] [facility] [address] [id number] [place] [address]- 1640 Sep, [facility] [place] [facility] [address] [id number] [place] [address]- 6193 Sep, [facility] [place] [facility] [address] [id number] [place] [address]- 6260 Aug, [facility] [place] [facility] [address] [id number] [place] [address]- 2108 Aug, [facility] [place] [facility] [address] [id number] [place] [address]- 2820 Aug, [facility] [place] [facility] [address] [id number] [place] [address]- 8165 Aug, [facility] [place] [facility] [address] [id number] [place] [address]- 4170 Aug, [facility] [place] [facility] [address] [id number] [place] [address]- 5592 Aug, [facility] [place] [facility] [address] [id number] [place] [address]- 1440 Aug, [facility] [place] [facility] [address] [id number] [place] [address]- 6131 Aug, [facility] [place] [facility] [address] [id number] [place] [address]- 1218 Aug, [facility] [place] [facility] [address] [id number] [place] [address]- 3919 Aug, [facility] [place] [facility] [address] [id number] [place] [address]- 5205 Jul, [facility] [place] [facility] [address] [id number] [place] [address]- 2340 Jul, [facility] [place] [facility] [address] [id number] [place] [address]- 4157 Jun, [facility] [place] [facility] [address] [id number] [place] [address]- 0004 Jun, [facility] [place] [facility] [address] [id number] [place] [address]- 2790 Jun, [facility] [place] [facility] [address] [id number] [place] [address]- 1037 Jun, [facility] [place] [facility] [address] [id number] [place] [address]- 8578 Jun, [facility] [place] [facility] [address] [id number] [place] [address]- 8812 Jun, [facility] [place] [facility] [address] [id number] [place] [address]- 9631 Jun, [facility] [address] [id number] [place] [address]- 5391 Jun, [facility] [address] [id number] [place] [address]- 6370 May, [facility] [address] [id number] [place] [address]- 1948 May, [facility] [address] [id number] [place] [address]- 9360 May, [facility] [address] [id number] [place] [address]- 7917 May, [facility] [address] [id number] [place] [address]- 4941 May, [facility] [address] [id number] [place] [address]- 5746 May, [facility] [address] [id number] [place] [address]- 3008 May, [facility] [address] [id number] [place] [address]- 1498 May, [facility] [address] [id number] [place] [address]- 9047 May, [facility] [address] [id number] [place] [address]- 4211 Apr, [facility] [place] [facility] [address] [id number] [place] [address]- 9269 Apr, [facility] [place] [facility] [address] [id number] [place] [address]- 6059 Apr, [facility] [place] [facility] [address] [id number] [place] 4993 Apr, [facility] [place] [facility] [address] [id number][place] [address]- 7246 30 Mar, 2012 [facility] [place] [facility] [address] [id number] [place] [address]- 4496 30 Mar, 2012 [facility] [place] [facility] [address] [id number], [place] [address]- 1886 Mar, 2012 [facility] [place] [facility] [address] [id number] [place] [address]- 7374 Mar, 2012 [facility] [place] [facility] [address] [id number][place] [address]- 4256 30 Mar, 2012 [facility] [place] [facility] [address] [id number] [place] [address]- 9776 Mar, 2012 [facility] [place] [facility] [address] [id number], [place] [address]- 8181 Mar, 2012 [facility] [place] [facility] [address] [id number], [place] [address]- 8950 Mar, 2012 [facility] [place] [facility] [address] [id number], [place] [address]- 5547 Mar, 2012 [facility] [place] [facility] [address] [id number][place] [address]- 7404 Mar, 2012 [facility] [place] [facility] [address] [id number], [place] [address]- 3906 Mar, 2012 [facility] [place] [facility] [address] [id number], [place] [address]- 9271 Mar, 2012 [facility] [place] [facility] [address] [id number], [place] [address]- 8826 Mar, 2012 [facility] [place] [facility] [address] [id number], [place] [address]- 8945 Mar, 2012 [facility] [place] [facility] [address] [id number], [place] [address]- 4646 Mar, 2012 [facility] [place] [facility] [address] [id number], [place] [address]- 5679 Mar, 2012 [facility] [place] [facility] [address] [id number] [place] [address]- 5128 17 Mar, 2012 [facility] [place] [facility] [address] [id number] [place] [address]- 1181 17 Mar, 2012 [facility] [place] [facility] [address] [id number] [place] [address]- 2535 15 Mar, 2012 [facility] [place] [facility] [address] [id number] [place] [address]- 1112 15 Mar, 2012 [facility] [place] [facility] [address] [id number] [place] [address]- 7846 14 Mar, 2012 [facility] [place] [facility] [address] [id number] [place] [address]- 7464 14 Mar, 2012 [facility] [place] [facility] [address] [id number] [place] [address]- 3314 14 Mar, 2012 [facility] [place] [facility] [address] [id number] [place] [address]- 3999 14 Mar, 2012 [facility] [place] [facility] [address] [id number] [place] [address]- 3289 12 Mar, 2012 [facility] [place] [facility] [address] [id number] [place] [address]- 6564 11 Mar, 2012 [facility] [place] [facility] [address] [id number] [place] [address]- 1797 11 Mar, 2012 [facility] [place] [facility] [address] [id number] [place] [address]- 1268 10 Mar, 2012 [facility] [place] [facility] [address] [id number] [place] [address]- 8621 10 Mar, 2012 [facility] [place] [facility] [address] [id number] [place] [address]- 9790 10 Mar, 2012 [facility] [place] [facility] [address] [id number] [place] [address]- 3363 10 Mar, 2012 [facility] [place] [facility] [address] [id number] [place] [address]- 6074 Mar, [facility] [place] [facility] [address] [id number] [place] [address]- 8967 Mar, [facility] [place] [facility] [address] [id number] [place] [address]- 5562 Feb, [facility] [place] [facility] [address] [id number] [place] [address]- 6855 Feb, [facility] [place] [facility] [address] [id number] [place] [address]- 5792 Feb, [facility] [place] [facility] [address] [id number] [place] [address]- 5799 Feb, [facility] [place] [facility] [address] [id number] [place] [address]- 5885 Jan, [facility] [place] [facility] [address] [id number] [place] [address]- 6428 Jan, [facility] [place] [facility] [address] [id number] [place] [address]- 1181 Jan, [facility] [place] [facility] [address] [id number] [place] [address]- 4606 Jan, [facility] [place] [facility] [address] [id number] [place] [address]- 1568 Jan, [facility] [place] [facility] [address] [id number] [place] [address]- 2752 Jan, [facility] [place] [facility] [address] [id number] [place] [address]- 4906 Dec, [facility] [place] [facility] [address] [id number] [place] [address]- 1259 Dec, [facility] [place] [facility] [address] [id number] [place] [address]- 0918 Dec, [facility] [place] [facility] [address] [id number] [place] [address]686 Dec, [facility] [place] [facility] [address] [id number] [place] [address]- 9632 Dec, [facility] [address] [id number] [place] [address]- 8526 Dec, [facility] [address] [id number] [place] [address]- 4776 Dec, [facility] [address] [id number] [place] [address]- 6306 Dec, [facility] [address] [id number] [place] [address]- 2488 Dec, [facility] [address] [id number] [place] [address]- 3135 Dec, [facility] [address] [id number] [place] [address]- 2855 Dec, [facility] [address] [id number] [place] [address]- 6753 October, [facility] [address] [id number] [place] [address]- 1916 October, [facility] [address] [id number] [place] [address]- 3798 October, [facility] [address] [id number] [place] [address]- 4067 October, [facility] [address] [id number] [place] [address]- 5360 Sep, [facility] [place] [facility] [address] [id number] [place] [address]- 3945 Sep, [facility] [address] [id number] [place] [address]- 5191 Sep, [facility] [address] [id number] [place] [address]- 1342 Sep, [facility] [address] [id number] [place] [address]- 5423 Sep, [facility] [address] [facility] [id number], [place] [address]- 9187 16 Sep, 2012 [facility] [address] [facility] [id number][place] [address]- 5818 15 Sep, 2012 [facility] [address] [facility] [id number], [place] [address]- 3141 14 Sep, 2012 [facility] [address] [facility] [id number][place] [address]- 7619 13 Sep, 2012 [facility] [address] [facility] [id number], [place] [address]- 1709 12 Sep, 2012 [facility] [address] [facility] [id number], [place] [address]- 1192 Sep, IMMUNIZATIONS No Known Immunizations SOCIAL HISTORY Never Assessed REASON FOR VISIT Percocet 01/02 PLAN OF CARE VITAL SIGNS MEDICATIONS Medication Instructions Dosage Frequency Start Date End Date Duration Status Percocet 7.5-325 MG Orally 3 times a day 1 tablet 8h Dec, 28 days Active RESULTS No Results PROCEDURES [...] problems 09/2015 Hospitalization History Acute dyspnea, muscle cramps--[facility] 03/04/16 Hospitalization History RLE Cellulitis, Hypokalemia, anemia-[facility] 09/29/15 Hospitalization History Lower edema 09/2016 Hospitalization History Received stitches ER 10/2016
--- OUTSIDE RECORDS SUMMARY | 2018-03-19 23:54 | XMS REPORT ---
Author Author JAN HERNANDEZ [facility] Address [address] [place] [address] Care Team Providers Care Search Engine Optimization Analyst Name Role Phone JAN HERNANDEZ Unavailable PROBLEMS Type Condition ICD9-CM Code GGM56-IN Code Onset Dates Condition Status SNOMED Code Problem Prediabetes R73.09 Active 5407266 Problem Arthritis M19.90 Active 7203045 Problem Hypokalemia E87.6 Active 65780443 Problem Coronary artery disease involving [place] coronary artery of [place] heart without angina pectoris I25.10 Active 5515345014048 Problem Skin cancer of face C44.300 Active 483512157 Problem Morbid (severe) obesity due to excess calories E66.01 Active 914965636 Problem Body mass index (BMI) of 45.0-49.9 in adult Z68.42 Active 385510395 Problem Venous insufficiency I87.2 Active 67817348 Problem 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 [id number] [address] Jan, Arthritis M19.90 [facility] [address] [address] Jan, Back pain M54.[address] [facility] [id number] [address] Jan, [facility] [address], [place] [address] 4573 Jan, Back pain M54.9 [facility] [address] [address] 2959 Jan, Arthritis M19.90 [facility] [id number] [place] [address] 75038- 1276 Jan, Back pain M54.9 [facility] [id number] [place] [address] 19308- 9124 Jan, [facility] [id number] [place] [address] 04214- 5663 Jan, Back pain M54.9 [facility] [id number] [place] [address] 14493- 7053 Dec, Ingrowing nail with infection L60.[address] [facility] [id number] [place] [address] 57950- 7001 Dec, Arthritis M19.90 [facility] [id number] [place] [address] 46526- 2836 Dec, Ingrowing nail L60.0 [facility] [id number] [place] [address] 27071- 1858 Dec, Back pain M54.9 [facility] [id number] [place] [address]98 -[address]278 Dec, [facility] [id number] [place] [address] 06574- 2029 Dec, Back pain M54.9 [facility] [address], [place] [address] 5782 Nov, Arthritis M19.90 [facility] [id number] [place] [address] 28433- 3032 Nov, [facility] [address], [place] [address] 6621 Nov, Arthritis M19.90 ; Anemia D64.9 ; Restrictive lung disease J98.4 ; Weakness R53.1 and BMI 50.0-59.9, adult Z68.43 [facility] [address] 23262- 3146 Nov, Arthritis M19.90 [facility] [id number] [place] [address] 62917- 9352 Nov, Back pain M54.9 [facility] [address] 87686- 8137 October, Back pain M54.9 [facility] [address] 55348- 3484 October, Back pain M54.9 [facility] [id number] [place] [address] 74989- 2639 Sep, Back pain M54.9 [facility] [address] 74127- 0430 Sep, Back pain M54.9 [facility] [id number] [place] [address] 40898 -1693 Sep, [facility] [id number] [place] [address] 68683 -9405 Sep, [facility] [id number] [place] [address] 50601 -5330 Sep, Swelling of right lower extremity M79.89 and Cellulitis of right lower extremity L03.115 [facility] [id number] [place] [address] 16106- 3741 27 Aug, [address] [facility] [id number] [place] [address] 51407- 5166 15 Aug, [address] [facility] [id number] [place] [address] 47660- 0927 13 Aug, 2017 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 Z79.891 ; Arthritis M19.90 ; Back pain M54.9 ; Prediabetes R73.09 ; Hypothyroidism E03.9 ; Coronary artery disease involving [place] coronary artery of [place] heart without angina pectoris I25.10 and Anemia D64.9 [place] [address] 57446- 6379 27 Jul, 2017 medical terminologist (current) 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 Z79.891 ; Back pain M54.9 ; Arthritis M19.90 ; Prediabetes R73.09 ; Hypothyroidism E03.9 ; Coronary artery disease involving [place] coronary artery of [place] heart without angina pectoris I25.10 ; Anemia D64.9 and BMI 45.0-49.9, adult Z68.42 [place] [id number] [place] [address] 67670- 7955 15 Jul, 2017 Back pain M54.9 [place] [address] 94956- 7929 05 Jul, 2017 Back pain M54.9 [place] [id number] [place] [address] 17752- 3179 Jun, Back pain M54.9 [place] [address] 61441- 4615 Jun, Back pain M54.9 [facility] [id number] [place] [address] 18599 -4423 May, Skin cancer of face C44.300 and BMI 45.0-49.[address], [address] [facility] [id number] [place] [address] 83919- 7947 May, [facility] [address] 13391- 0680 May, Back pain M54.9 [facility] [address] 51737- 8138 May, Back pain M54.9 [facility] [address] 84640- 7765 May, Back pain M54.9 [facility] [address] 85267- 8250 Apr, Back pain M54.9 [facility] [address] 02696- 9212 Apr, Back pain M54.9 [facility] [address] 12053- 1780 Mar, Back pain M54.9 [facility] [address] 97881- 9647 Mar, Anemia D64.9 ; Encounter for immunization Z23 ; Arthritis M19.90 and Right inguinal hernia K40.90 [facility] [address] 69973- 1663 Mar, Back pain M54.9 [facility] [id number] [place] [address] 86149- 6605 Feb, Back pain M54.9 [facility] [address] 86816- 1762 13 Feb, [address] [facility] [id number] [place] [address] 74377- 0949 Jan, Back pain M54.9 [facility] [address] [place] [address]- 3126 Jan, Back pain M54.9 [facility] [id number] [place] [address] 82223 2546 Jan, [facility] [id number] [place] [address] 28032 2546 Jan, Back pain M54.9 [facility] [id number] [place] [address] 46422 2546 Dec, Back pain M54.9 [facility] [id number] [place] [address] 68872 2546 Dec, Back pain M54.9 [facility] [id number] [place] [address] 44056 2546 Dec, [facility] [id number] [place] [address] 25900- 5710 Nov, Hypokalemia E87.6 [facility] [id number] [place] [address] 83918 2544 Nov, Back pain M54.9 [facility] [id number] [place] [address] 82951 2546 Nov, [facility] [id number] [place] [address] 38651 2543 Nov, Arthritis M19.90 [facility] [id number] [place] [address] 01998 2546 Nov, Back pain M54.9 [facility] [id number] [place] [address] 19289 2546 Nov, Generalized edema R60.1 [facility] [id number] [place] [address] 21389 2546 Nov, Back pain M54.9 [facility] [id number] [place] [address] 42748 2546 Nov, Pain in right knee M25.561 [facility] [address], [place] [address]- 1912 05 Nov, 2016 Encounter for removal of sutures Z48.02 and Pain in right knee M25.561 [facility] [place] [address] [place] [address] 22890 -1084 Nov, Abrasion of right foot, subsequent encounter S90.811D [facility] [place] [id number] [place] [address] 59021 -5138 October, Toe abrasion, right, initial encounter S90.414A [place] [id number] [place] [address] 35100- 6712 October, [place] [id number] [place] [address] 34567- 1710 October, Back pain M54.9 [place] [id number] [place] [address] 21077- 5925 October, Venous insufficiency I87.2 [place] [id number] [place] [address] 20167- 1297 October, Pain in right knee M25.561 [place] [id number] [place] [address] 60661- 7333 Sep, Back pain M54.9 [place] [address] [place] [address] 78873- 6346 Sep, Venous insufficiency I87.2 [facility] [place] [id number] [place] [address] [id number] Sep, [facility] [id number] [place] [address] 17060 -1021 16 Sep, 2016 Leg edema, right R60.0 and Cellulitis of right lower extremity L03.115 [place] [address] [place] [address] 69713- 3333 14 Sep, 2016 Pedal edema R60.0 [place] [id number] [place] [address] 85508- 2588 Sep, 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 ; Pain in right knee M25.[address] [facility] [id number] [place] [address] 74315- 6541 Aug, Back pain M54.9 [facility] [id number] [place] [address] 51149- 3396 Aug, Back pain M54.9 [facility] [id number] [place] [address] 90183- 4799 Aug, [facility] [id number] [place] [address] 30148- 5508 Aug, Type 2 diabetes mellitus without complication E11.9 ; Restrictive lung disease J98.4 ; Arthritis M19.90 ; Back pain M54.9 ; Body mass index (BMI) of 45.0-49.9 in adult Z68.42 and Morbid (severe) obesity due to excess calories E66.01 [facility] [id number] [place] [address] 80570- 0165 Aug, Back pain M54.9 [facility] [id number] [place] [address] 19166- 0091 Aug, Back pain M54.9 [facility] [id number] [place] [address] 66548- 7469 Jul, [facility] [id number] [place] [address] 19795- 2465 Jul, Back pain M54.9 [facility] [id number] [place] [address] 30886- 5243 Jul, Back pain M54.9 [facility] [id number] [place] [address] 18183- 3951 Jun, Back pain M54.9 [facility] [id number] [place] [address] 29708- 8987 Jun, Back pain M54.9 [facility] [id number] [place] [address] 96252- 6709 May, Back pain M54.9 [facility] [id number] [place] [address] 41305- 2336 May, Back pain M54.9 [facility] [id number] [place] [address] 48663- 2849 May, Back pain M54.9 [facility] [id number] [place] [address] 28662- 9941 May, Back pain M54.9 [facility] [id number] [place] [address] 21886- 5951 May, [facility] [id number] [place] [address] 24935- 2665 May, Back pain M54.9 and Pain in right knee M25.561 [facility] [id number] [place] [address] 51272- 2995 Apr, [facility] [id number] [place] [address] 85614- 8173 Apr, Type 2 diabetes mellitus without complication E11.9 ; Pain in right knee M25.561 and Pain in left knee M25.562 [facility] [id number] [place] [address] 23037- 1004 Mar, [facility] [id number] [place] [address] 26948- 0662 Mar, [facility] [id number] [place] [address] 79975- 1548 Mar, [facility] [id number] [place] [address] 20121- 0143 Mar, Restrictive lung disease J98.4 ; Anemia D64.9 [address] pul[address] I27.81 [facility] [id number] [address]- 7649 17 Mar, 2016 [facility] [address] [facility] [id number] [place] [address] 45134- 7975 14 Mar, 2016 [facility] [address] [facility] [address] [facility] [id number] [place] [address]- 4237 03 Mar, 2016 [facility] [address] [place] [address] 03612- 2299 30 Feb, 2015 [facility] [address] [facility] [address] [facility] [id number] [place] [address], [place] [address]- 3280 29 Feb, 2015 [facility] [id number] [place] [address], [place] [address]- 4955 28 Feb, 2016 [facility] [address] [facility] [address] [facility] [id number] [place] [address], [place] [address]- 2125 27 Feb, 2015 Restrict[address] J[address].4 [facility] [address] [place] [address] 89964- 1785 23 Feb, 2016 [facility] [id number] [address] -9038 [address], 2016 [facility] [address], [place] [address]- 8435 16 Feb, 2016 [facility] [address], [place] [address]- 1118 [address], 2016 [facility] [address], [place] [address]- 5295 Jan, [facility] [id number] [address] 2306 Jan, [facility] [address] [place] [address] 16956- 9350 Jan, [facility] [address], [place] [address]- 6369 Jan, Restrictive lung disease J98.4 ; Anemia D64.9 [address] I27.81 [facility] [id number] [place] [address] 73696- 2836 Dec, [facility] [id number] [place] [address] 98104- 7853 Dec, [facility] [id number] [place] [address] 18703- 7971 14 Nov, 2015 Arthritis M19.[address] [facility] [id number] [place] [address] 13252- 1878 Nov, Back pain M54.9 [facility] [id number] [place] [address] 83016- 0167 October, Back pain M54.9 [facility] [id number] [place] [address] 92611- 5864 October, Back pain M54.9 [facility] [id number] [place] [address] 41055- 6603 Sep, Scabies exposure Z20.89 [facility] [id number] [place] [address] 99532- 6136 Sep, Restrictive lung disease J98.4 [facility] [id number] [place] [address] 22580- 5046 Sep, Back pain M54.9 [facility] [id number] [place] [address] 74146- 1032 Sep, Restrictive lung disease J98.4 [facility] [address] [place] [address] 89411- 6122 Aug, [facility] [id number] [place] [address] 70112- 0797 Aug, [facility] [id number] [place] [address] 22021- 1449 Aug, [facility] [id number] [place] [address] 67335- 2175 Aug, [facility] [id number] [place] [address] 40589- 3423 Aug, Back pain M54.9 [facility] [id number] [place] [address] 04977- 6332 Jul, Anemia D64.[address] [facility] [address] 01239- 2065 Jul, Back pain M54.9 [facility] [id number] [place] [address] 14735- 5238 17 Jul, [address] [facility] [id number] [place] [address] 68410- [address]49 Jul, [facility] [id number] [place] [address]03- [address]442 Jul, Bronchitis J40 and Anemia [address]9 [facility] [id number] [place] [address] 25530- 4980 Jun, [facility] [address] [address] Jun, [facility] [id number] [place] [address] 60742- 9943 Jun, Bronchitis J40 and Anemia [address]64.9 [facility] [id number] [place] [address] 01473- [address]004 Jun, [facility] [id number] [place] [address] 80139- 4387 Jun, Back pain M54.9 [facility] [id number] [place] [address] 97031- [address]321 Jun, [address] [facility] [id number] [place] [address] 73090- 1658 Jun, Restrictive lung disease J98.4 ; Anemia D64.9 ; Hypothyroidism E03.9 ; Cor pulmonale I27.81 and Back pain M54.9 [facility] [address] [address]- [address] May, [facility] [address] [address]- [address] Apr, Anemia D64.9 ; Encounter for immunization Z23 and Restrictive lung disease J98.4 [facility] [address] [address]- [address] Apr, [facility] [address] [address]- [address] Mar, [facility] [address] [address]- [address] Mar, Iron deficiency anemia D50.9 [facility] [address] [address]- [address] Mar, [facility] [address] [address]- [address] Mar, [facility] [address] [address]- [address] Mar, [address]9 [facility] [address] [address]- [address] Mar, [facility] [address] [address]- [address] Mar, [address]9 [facility] [id number] [place] [address] 01300- 5944 Mar, Restrictive lung disease J98.[address] [facility] [id number] [place] [address] 77306- 7786 Mar, [facility] [id number] [place] [address] 77672- 5821 Mar, [address]9 [facility] [id number] [address] Mar, [address] [facility] [id number] [place] [address] 38371- 4370 Mar, [facility] [id number] [place] [address] 78733- 0121 Mar, Diabetes mellitus E11.9 ; Bronchitis J40 and Anemia D64.9 [facility] [id number] [place] [address]36- 2877 [address], [address] [facility] [id number] [place] [address]- [address] Feb, [facility] [id number] [place] [address] 33063- 6219 Feb, [facility] [id number] [place] [address] 45670- 7765 Feb, [facility] [id number] [place] [address]000- 1069 Jan, [facility] [id number] [place] [address] 41304- 4199 Jan, [facility] [id number] [place] [address] 38405- 1497 Dec, Venous insufficiency 459.81 [facility] [id number] [place] [address] 08222- 6310 Dec, [facility] [id number] [place] [address] 25150- 9249 Dec, [facility] [id number] [place] [address] 22317- 3232 Dec, Coronary atherosclerosis of unspecified type of vessel, [place] or graft 414.00 ; Unspecified anemia 285.9 and Generalized osteoarthrosis , unspecified site 715.00 [facility] [id number] [place] [address] 10511- 5696 Nov, [facility] [address] [id number] [place] [address] 9002 Nov, [facility] [id number] [place] [address]- 6420 Nov, [facility] [id number] [place] [address]- 5102 October, [facility] [id number] [place] [address], [place] [address]- 4403 October, Acute bronchitis 466.0 and Shortness of breath 786.05 [facility] [id number] [place] [address], [place] [address]- 7832 Sep, [facility] [id number] [place] [address]- 3340 Sep, [facility] [id number] [place] [address], [place] [address]- 4653 Aug, [facility] [id number] [address]- 4523 Aug, [facility] [id number] [place] [address]- 8214 Jul, [facility] [id number] [address] 89[address] Jul, [facility] [address] [place] [address]- 4257 Jul, [facility] [address] [id number] [place] [address]- 6659 Jul, [facility] [id number] [place] [address]- 1247 Jun, [facility] [id number] [place] [address]- 3311 Jun, [facility] [id number] [address]- 3876 Jun, [facility] [place] [facility] [address] [id number] [place] [address]- 1524 Jun, [facility] [place] [facility] [address] [id number] [place] [address]- 6666 Jun, [facility] [place] [facility] [address] [id number] [place] [address]- 7982 Jun, [facility] [place] [facility] [address] [id number] [place] [address]- 3254 May, [facility] [place] [facility] [address] [id number] [place] [address]- 2659 May, [facility] [place] [facility] [address] [id number] [place] [address]- 2296 May, [facility] [place] [facility] [address] [id number] [place] [address]- 9918 May, [facility] [place] [facility] [address] [id number] [place] [address]- 8429 Apr, [facility] [place] [facility] [address] [id number] [place] [address]- 1627 Apr, [facility] [place] [facility] [address] [id number] [place] [address]- 6229 Apr, [facility] [place] [facility] [address] [id number] [place] [address]- 1086 Apr, [facility] [place] [facility] [address] [id number] [address]- 2352 Apr, [facility] [place] [facility] [address] [id number] [place] [address]- 5451 Apr, [facility] [place] [facility] [address] [id number] [place] [address]- 9606 Mar, [facility] [place] [facility] [address] [id number] 1792 Mar, [facility] [place] [facility] [address] [id number] [address]- 9670 Mar, [facility] [place] [facility] [address] [id number] [place] [address]- 1813 Mar, [facility] [place] [facility] [address] [id number] [place] [address]- 8181 Mar, [facility] [place] [facility] [address] [id number] [place] [address]- 3297 Mar, [facility] [place] [facility] [address] [id number] [place] [address]- 8954 Mar, [facility] [place] [facility] [address] [id number] [place] [address]- 5632 Mar, [facility] [place] [facility] [address] [id number] [place] [address]- 6605 Feb, [facility] [place] [facility] [address] [id number] [place] [address]- 1933 Feb, [facility] [place] [facility] [address] [id number] [place] [address]- 9893 Jan, [facility] [place] [facility] [address] [id number] [place] [address]- 8467 Jan, [facility] [place] [facility] [address] [facility] [id number] [place] [address]- 8746 Jan, [facility] [place] [facility] [address] [id number] [place] [address]- 2032 Jan, [facility] [place] [facility] [address] [id number] [place] [address]- 3362 Jan, [facility] [place] [facility] [address] [id number] [place] [address]- 2543 Jan, [facility] [place] [facility] [address] [id number] [place] [address]- 4658 Dec, [facility] [place] [facility] [address] [facility] [id number] [place] [address]- 7641 Dec, [facility] [place] [facility] [address] [id number] [place] [address]- 5164 Dec, [facility] [place] [facility] [address] [id number] [place] [address]- 8792 Dec, [facility] [place] [facility] [address] [id number] [place] [address]- 6859 Nov, [facility] [place] [facility] [address] [id number] [place] [address]- 2727 Nov, [facility] [place] [facility] [address] [id number] [place] [address]- 5917 Nov, [facility] [place] [facility] [address] [id number] [place] [address]- 7485 Nov, [facility] [place] [facility] [address] [id number] [place] [address]- 2039 Nov, [facility] [place] [facility] [address] [id number] [place] [address]- 5886 Nov, [facility] [place] [facility] [address] [id number] [place] [address]- 1210 Nov, [facility] [place] [facility] [address] [id number] [place] [address]- 6015 Nov, [facility] [place] [facility] [address] [id number] [place] [address]- 7441 Nov, [facility] [place] [facility] [address] [id number] [place] [address]- 9218 Nov, [facility] [place] [facility] [address] [id number] [place] [address]- 2769 Nov, [facility] [place] [facility] [address] [id number] [place] [address]- 7889 Nov, [facility] [place] [facility] [address] [id number] [place] [address]- 9486 October, [facility] [place] [facility] [address] [id number] [place] [address]- 1126 October, [facility] [place] [facility] [address] [id number] [place] [address]- 9702 October, [facility] [place] [facility] [address] [id number] [place] [address]- 7271 October, [facility] [place] [facility] [address] [id number] [place] [address]- 3697 October, [facility] [place] [facility] [address] [id number] [place] [address]- 4990 October, [facility] [place] [facility] [address] [id number] [place] [address]- 4029 October, [facility] [place] [facility] [address] [id number] [place] [address]- 6781 October, [facility] [place] [facility] [address] [id number] [place] [address]- 0346 October, [facility] [place] [facility] [address] [id number] [place] [address]- 7185 Sep, [facility] [place] [facility] [address] [id number] [place] [address]- 8311 Sep, [facility] [place] [facility] [address] [id number] [place] [address]- 7035 Sep, [facility] [place] [facility] [address] [id number] [place] [address]- 4060 Sep, [facility] [place] [facility] [address] [id number] [place] [address]- 3480 Sep, [facility] [place] [facility] [address] [id number] [place] [address]- 9513 Sep, [facility] [place] [facility] [address] [id number] [place] [address]- 1066 Aug, [facility] [place] [facility] [address] [id number] [place] [address]- 4433 Aug, [facility] [place] [facility] [address] [id number] [place] [address]- 2443 Aug, [facility] [place] [facility] [address] [id number] [place] [address]- 9222 Aug, [facility] [place] [facility] [address] [id number] [place] [address]- 5739 Aug, [facility] [place] [facility] [address] [id number] [place] [address]- 6205 Aug, [facility] [place] [facility] [address] [id number] [place] [address]- 3918 Aug, [facility] [place] [facility] [address] [id number] [place] [address]- 3651 Aug, [facility] [place] [facility] [address] [id number] [place] [address]- 6728 Aug, [facility] [place] [facility] [address] [id number] [place] [address]- 0217 Aug, [facility] [place] [facility] [address] [id number] [place] [address]- 6285 Jul, [facility] [place] [facility] [address] [id number] [place] [address]- 9006 Jul, [facility] [place] [facility] [address] [id number] [place] [address]- 5816 Jun, [facility] [place] [facility] [address] [id number] [place] [address]- 7386 Jun, [facility] [place] [facility] [address] [id number] [place] [address]- 5738 Jun, [facility] [place] [facility] [address] [id number] [place] [address]- 8441 Jun, [facility] [place] [facility] [address] [id number] [place] [address]- 4674 Jun, [facility] [place] [facility] [address] [id number] [place] [address]- 9353 Jun, [facility] [place] [facility] [address] [id number] [place] [address]- 7421 Jun, [facility] [address] [id number] [place] [address]- 5071 Jun, [facility] [address] [id number] [place] [address]- 3363 May, [facility] [address] [id number] [place] [address]- 2364 May, [facility] [address] [id number] [place] [address]- 7070 May, [facility] [address] [id number] [place] [address]- 9766 May, [facility] [address] [id number] [place] [address]- 9987 May, [facility] [address] [id number] [place] [address]- 1788 May, [facility] [address] [id number] [place] [address]- 9584 May, [facility] [address] [id number] [place] [address]- 3279 May, [facility] [address] [id number] [place] [address]- 0291 May, [facility] [address] [id number] [place] [address]- 9292 Apr, [facility] [place] [facility] [address] [id number] [place] [address]- 4910 Apr, [facility] [place] [facility] [address] [id number] [place] [address]- 0741 Apr, [facility] [place] [facility] [address] [id number] [place] 2690 Apr, [facility] [place] [facility] [address] [id number] [address]- 1258 30 Mar, 2012 [facility] [place] [facility] [address] [id number] [place] [address]- 2990 30 Mar, 2012 [facility] [place] [facility] [address] [id number], [place] [address]- 3913 Mar, 2012 [facility] [place] [facility] [address] [id number] [place] [address]- 3583 Mar, 2012 [facility] [place] [facility] [address] [id number], [place] [address]- 4663 30 Mar, 2012 [facility] [place] [facility] [address] [id number] [place] [address]- 3106 Mar, 2012 [facility] [place] [facility] [address] [id number], [place] [address]- 5891 Mar, 2012 [facility] [place] [facility] [address] [id number], [place] [address]- 7914 Mar, 2012 [facility] [place] [facility] [address] [id number], [place] [address]- 1221 Mar, 2012 [facility] [place] [facility] [address] [id number], [place] [address]- 2652 Mar, 2012 [facility] [place] [facility] [address] [id number], [place] [address]- 5167 Mar, 2012 [facility] [place] [facility] [address] [id number], [place] [address]- 2715 Mar, 2012 [facility] [place] [facility] [address] [id number], [place] [address]- 1177 Mar, 2012 [facility] [place] [facility] [address] [id number], [place] [address]- 3429 Mar, 2012 [facility] [place] [facility] [address] [id number], [place] [address]- 7495 Mar, 2012 [facility] [place] [facility] [address] [id number], [place] [address]- 5838 Mar, 2012 [facility] [place] [facility] [address] [id number] [place] [address]- 6571 17 Mar, 2012 [facility] [place] [facility] [address] [id number] [place] [address]- 5830 17 Mar, 2012 [facility] [place] [facility] [address] [id number] [place] [address]- 9429 15 Mar, 2012 [facility] [place] [facility] [address] [id number] [place] [address]- 6012 15 Mar, 2012 [facility] [place] [facility] [address] [id number] [place] [address]- 8621 14 Mar, 2012 [facility] [place] [facility] [address] [id number] [place] [address]- 7066 14 Mar, 2012 [facility] [place] [facility] [address] [id number] [place] [address]- 0342 14 Mar, 2012 [facility] [place] [facility] [address] [id number] [place] [address]- 7636 14 Mar, 2012 [facility] [place] [facility] [address] [id number] [place] [address]- 4241 12 Mar, 2012 [facility] [place] [facility] [address] [id number] [place] [address]- 0533 11 Mar, 2012 [facility] [place] [facility] [address] [id number] [place] [address]- 8410 11 Mar, 2012 [facility] [place] [facility] [address] [id number] [place] [address]- 8391 10 Mar, 2012 [facility] [place] [facility] [address] [id number] [place] [address]- 1637 10 Mar, 2012 [facility] [place] [facility] [address] [id number] [place] [address]- 7082 10 Mar, 2012 [facility] [place] [facility] [address] [id number] [place] [address]- 5948 10 Mar, 2012 [facility] [place] [facility] [address] [id number] [place] [address]- 6053 Mar, [facility] [place] [facility] [address] [id number] [place] [address]- 8209 Mar, [facility] [place] [facility] [address] [id number] [place] [address]- 3175 Feb, [facility] [place] [facility] [address] [id number] [place] [address]- 7493 Feb, [facility] [place] [facility] [address] [id number] [place] [address]- 8731 Feb, [facility] [place] [facility] [address] [id number] [place] [address]- 3391 Feb, [facility] [place] [facility] [address] [id number] [place] [address]- 9011 Jan, [facility] [place] [facility] [address] [id number] [place] [address]- 1970 Jan, [facility] [place] [facility] [address] [id number] [place] [address]- 8604 Jan, [facility] [place] [facility] [address] [id number] [place] [address]- 9213 Jan, [facility] [place] [facility] [address] [id number] [place] [address]- 0620 Jan, [facility] [place] [facility] [address] [id number] [place] [address]- 5012 Jan, [facility] [place] [facility] [address] [id number] [place] [address]- 5708 Dec, [facility] [place] [facility] [address] [id number] [place] [address]- 6165 Dec, [facility] [place] [facility] [address] [id number] [place] [address]- 8665 Dec, [facility] [place] [facility] [address] [id number] [place] 8040 Dec, [facility] [place] [facility] [address] [id number] [place] [address]- 4979 Dec, [facility] [address] [id number] [place] [address]- 8420 Dec, [facility] [address] [id number] [place] [address]- 7211 Dec, [facility] [address] [id number] [place] [address]- 7165 Dec, [facility] [address] [id number] [place] [address]- 9083 Dec, [facility] [address] [id number] [place] [address]- 8693 Dec, [facility] [address] [id number] [place] [address]- 8181 Dec, [facility] [address] [id number] [place] [address]- 0292 October, [facility] [address] [id number] [place] [address]- 0627 October, [facility] [address] [id number] [place] [address]- 2391 October, [facility] [address] [id number] [place] [address]- 5907 October, [facility] [address] [id number] [place] [address]- 4857 Sep, [facility] [place] [facility] [address] [id number] [place] [address]- 4046 Sep, [facility] [address] [id number] [place] [address]- 2021 Sep, [facility] [address] [id number] [place] [address]- 9325 Sep, [facility] [address] [id number] [place] [address] Sep, [facility] [address] [facility] [id number] [address] [address], [address] [facility] [address] [facility] [id number][place] [address] [address], [address] [facility] [address] [facility] [id number][place] [address] [address], [address] [facility] [address] [facility] [id number] [address] [address], [address] [facility] [address] [facility] [id number], [place] [address] 12 [address], [address] [facility] [address] [facility] [id number][place] [address] Sep, IMMUNIZATIONS No Known Immunizations SOCIAL HISTORY Never Assessed REASON FOR VISIT PLAN OF CARE VITAL SIGNS MEDICATIONS Medication Instructions Dosage Frequency Start Date End Date Duration Status Flexeril 10 mg take 1 tablet (10 mg) by oral route 3 times per day PRN pain Jan, Active Lomotil 2.5-0.025 MG Orally Four times a day 1 tablet as needed 6h Dec, Active RESULTS No Results PROCEDURES No Known [...] problems 09/2015 Hospitalization History Acute dyspnea, muscle cramps--[facility] 03/04/16 Hospitalization History RLE Cellulitis, Hypokalemia, anemia-[facility] 09/29/15 Hospitalization History Lower edema 09/2016 Hospitalization History Received stitches ER 10/2016
--- OUTSIDE RECORDS SUMMARY | 2018-03-19 23:55 | XMS REPORT ---
Author Author JAN HERNANDEZ [facility] Address [address] [place] [address] Care Team Providers Care Wheel Aligner Name Role Phone JAN HERNANDEZ Unavailable PROBLEMS Type Condition ICD9-CM Code [id number] Code Onset Dates Condition Status SNOMED Code Problem Prediabetes R73.09 Active 3108680 Problem Arthritis M19.90 Active 5521544 Problem Hypokalemia E87.6 Active 56211215 Problem Coronary artery disease involving dot [place] coronary artery of [place] heart without angina pectoris I25.10 Active 8864957267834 Problem Skin cancer of face C44.300 Active 417433663 Problem Morbid (severe) obesity due to excess calories E66.01 Active 090648385 Problem Body mass index (BMI) of 45.0-49.9 in adult Z68.42 Active 303553544 Problem Venous insufficiency I87.2 Active 55005802 Problem 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 Active 935422899 Problem Anemia D64.9 Active 130116323 Problem Cor pulmonale I27.81 Active 37956222 Problem Back pain M54.9 Active 497660823 Problem Restrictive lung disease J98.4 Active 72688484 Problem Hypothyroidism E03.9 Active 69265272 ALLERGIES No Information ENCOUNTERS Encounter Location Date Diagnosis [facility] [id number] [address] Jan, Arthritis M19.90 [facility] [address] [address] Jan, Back pain M54.9 and Arthritis M19.90 [facility] [id number] [address] Jan, [facility] [address] [address] Jan, Back pain M54.9 [facility] [address] [address] Jan, Arthritis M19.90 [facility] [id number] [place] [address] 47833- 9645 Jan, Back pain M54.9 [facility] [id number] [place] [address] 10607- 2184 Jan, [facility] [id number] [place] [address] 88752- 7089 Jan, Back pain M54.9 [facility] [id number] [place] [address] 91023- 9484 Dec, Ingrowing nail with infection L60.0 and Onychomycosis B35.1 [facility] [id number] [place] [address] 84068- 2854 Dec, Arthritis M19.90 [facility] [id number] [place] [address] 46509- 6490 Dec, Ingrowing nail L60.0 [facility] [id number] [place] [address] 44955- 9239 Dec, Back pain M54.9 [facility] [id number] [place] [address] 80158 -2864 Dec, [facility] [id number] [place] [address] 40880- 1383 Dec, Back pain M54.9 [facility] [address] [address]- 0302 Nov, Arthritis M19.90 [facility] [id number] [place] [address] 23838- 4673 Nov, [facility] [address] [address] Nov, Arthritis M19.90 ; Anemia D64.9 ; Restrictive lung disease J98.4 ; Weakness R53.1 and BMI 50.0-59.9, adult Z68.43 [facility] [address] 18341- 7933 Nov, Arthritis M19.90 [facility] [id number] [place] [address] 48027- 1824 Nov, Back pain M54.9 [facility] [address] 87879- 3518 October, Back pain M54.9 [facility] [address] 98758- 2170 October, Back pain M54.9 [facility] [id number] [place] [address] 65523- 6406 Sep, Back pain M54.9 [facility] [address] 81305- 0997 Sep, Back pain M54.9 [facility] [id number] [place] [address] 27846 -5959 Sep, [facility] [id number] [place] [address] 71962 -3057 Sep, [facility] [id number] [place] [address] 81847 -1151 Sep, Swelling of right lower extremity M79.89 and Cellulitis of right lower extremity L03.115 [facility] [id number] [place] [address] 61645- 9588 27 Aug, 2017 Back pain M54.9 [facility] [id number] [place] [address] 45092- 3762 15 Aug, 2017 Back pain M54.9 [facility] [id number] [place] [address] 91163- 0104 13 Aug, 2017 [facility] [address] [place] [address]- 0944 13 Aug, 2017 Cellulitis of right lower extremity L03.115 ; Ventral hernia without obstruction or gangrene K43.9 and BMI 50.0-59.9, adult Z68.43 [place] [address] 41594- 5977 28 Jul, 2017 Back pain M54.9 [place] [address] 34908- 7302 28 Jul, 2017 manager 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 Z79.891 ; Arthritis M19.90 ; Back pain M54.9 ; Prediabetes R73.09 ; Hypothyroidism E03.9 ; Coronary artery disease involving [place] coronary artery of [place] heart without angina pectoris I25.10 and Anemia D64.9 [place] [address] 12529- 3864 27 Jul, 2017 manager 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 Z79.891 ; Back pain M54.9 ; Arthritis M19.90 ; Prediabetes R73.09 ; Hypothyroidism E03.9 ; Coronary artery disease involving [place] coronary artery of [place] heart without angina pectoris I25.10 ; Anemia D64.9 and BMI 45.0-49.9, adult Z68.42 [place] [id number] [place] [address] 42874- 0325 15 Jul, 2017 Back pain M54.9 [place] [address] 37731- 5899 05 Jul, 2017 Back pain M54.9 [place] [id number] [place] [address] 50267- 2843 Jun, Back pain M54.9 [place] [address] 11415- 3608 Jun, Back pain M54.9 [facility] [id number] [place] [address] 84765 -4381 May, Skin cancer of face C44.300 and BMI 45.0-49.9, adult Z68.42 [facility] [id number] [place] [address] 80698- 6485 May, [facility] [address] 03545- 9454 May, Back pain M54.9 [facility] [address] 24839- 5170 May, Back pain M54.9 [facility] [address] 14222- 0247 May, Back pain M54.9 [facility] [address] 52415- 1928 Apr, Back pain M54.9 [facility] [address] 57272- 3937 Apr, Back pain M54.9 [facility] [address] 77377- 4272 Mar, Back pain M54.9 [facility] [address] 29626- 1049 Mar, Anemia D64.9 ; Encounter for immunization Z23 ; Arthritis M19.90 and Right inguinal hernia K40.90 [facility] [address] 17302- 4203 Mar, Back pain M54.9 [facility] [id number] [place] [address] 92072- 4000 Feb, Back pain M54.9 [facility] [address] 35565- 2791 13 Feb, 2017 Back pain M54.9 [facility] [id number] [place] [address] 13465- 1532 Jan, Back pain M54.9 [facility] [address] [place] [address]- 1746 Jan, Back pain M54.9 [facility] [id number] [place] [address] 02621 2546 Jan, [facility] [id number] [place] [address] 59919 2546 Jan, Back pain M54.9 [facility] [id number] [place] [address] 39876 2546 Dec, Back pain M54.9 [facility] [id number] [place] [address] 40020 2546 Dec, Back pain M54.9 [facility] [id number] [place] [address] 81251 2546 Dec, [facility] [id number] [place] [address] 63171- 0150 Nov, Hypokalemia E87.6 [facility] [id number] [place] [address] 86860 2544 Nov, Back pain M54.9 [facility] [id number] [place] [address] 35499 2546 Nov, [facility] [id number] [place] [address] 89588 2543 Nov, Arthritis M19.90 [facility] [id number] [place] [address] 84407 2546 Nov, Back pain M54.9 [facility] [id number] [place] [address] 24402 2546 Nov, Generalized edema R60.1 [facility] [id number] [place] [address] 84239 2546 Nov, Back pain M54.9 [facility] [id number] [place] [address] 41723 2546 Nov, Pain in right knee M25.561 [facility] [address] [address]- 8531 05 Nov, 2016 Encounter for removal of sutures Z48.02 and Pain in right knee M25.561 [facility] [place] [id number] [place] [address] 51134 -2684 Nov, Abrasion of right foot, subsequent encounter S90.811D [facility] [place] [id number] [place] [address] 00439 -8880 October, Toe abrasion, right, initial encounter S90.414A [place] [id number] [place] [address] 78686- 0657 October, [place] [id number] [place] [address] 26596- 4779 October, Back pain M54.9 [place] [id number] [place] [address] 10316- 3083 October, Venous insufficiency I87.2 [place] [id number] [place] [address] 06585- 7407 October, Pain in right knee M25.561 [place] [id number] [place] [address] 71929- 4809 Sep, Back pain M54.9 [place] [id number] [place] [address] 67479- 4221 Sep, Venous insufficiency I87.2 [facility] [id number] [place] [address] [id number] Sep, [facility] [id number] [place] [address] 64428 -7054 16 Sep, 2016 Leg edema, right R60.0 and Cellulitis of right lower extremity L03.115 [place] [id number] [place] [address] 59590- 8978 14 Sep, 2016 Pedal edema R60.0 [place] [id number] [place] [address] 25623- 4099 Sep, 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 ; Pain in right knee M25.561 and Arthritis M19.90 [facility] [id number] [place] [address] 99320- 0861 Aug, Back pain M54.9 [facility] [id number] [place] [address] 27621- 4404 Aug, Back pain M54.9 [facility] [id number] [place] [address] 96557- 3942 Aug, [facility] [id number] [place] [address] 97960- 9382 Aug, Type 2 diabetes mellitus without complication E11.9 ; Restrictive lung disease J98.4 ; Arthritis M19.90 ; Back pain M54.9 ; Body mass index (BMI) of 45.0-49.9 in adult Z68.42 and Morbid (severe) obesity due to excess calories E66.01 [facility] [id number] [place] [address] 71985- 6800 Aug, Back pain M54.9 [facility] [id number] [place] [address] 00211- 1419 Aug, Back pain M54.9 [facility] [id number] [place] [address] 07787- 0054 Jul, [facility] [id number] [place] [address] 07200- 2697 Jul, Back pain M54.9 [facility] [id number] [place] [address] 89287- 1761 Jul, Back pain M54.9 [facility] [id number] [place] [address] 26428- 0712 Jun, Back pain M54.9 [facility] [id number] [place] [address] 55180- 3498 Jun, Back pain M54.9 [facility] [id number] [place] [address] 66371- 3673 May, Back pain M54.9 [facility] [id number] [place] [address] 54377- 3856 May, Back pain M54.9 [facility] [id number] [place] [address] 55839- 8266 May, Back pain M54.9 [facility] [id number] [place] [address] 68700- 7260 May, Back pain M54.9 [facility] [id number] [place] [address] 55269- 8638 May, [facility] [id number] [place] [address] 32092- 8141 May, Back pain M54.9 and Pain in right knee M25.561 [facility] [id number] [place] [address] 69382- 8103 Apr, [facility] [id number] [place] [address] 95389- 2595 Apr, Type 2 diabetes mellitus without complication E11.9 ; Pain in right knee M25.561 and Pain in left knee M25.562 [facility] [id number] [place] [address] 93703- 6357 Mar, [facility] [id number] [place] [address] 58693- 7680 Mar, [facility] [id number] [place] [address] 79203- 0945 Mar, [facility] [id number] [place] [address] 34611- 1826 Mar, Restrictive lung disease J98.4 ; Anemia D64.9 and Cor pulmonale I27.81 [facility] [id number] [address]- 0722 17 Mar, 2016 [facility] [address] [facility] [id number] [place] [address] 77836- 3275 14 Mar, 2016 [facility] [address] [facility] [id number] [place] [address]- 8989 03 Mar, 2016 [facility] [id number] [place] [address] 41390- 3081 30 Feb, 2015 [facility] [address] [facility] [id number] [place] [address], [place] [address]- 2404 29 Feb, 2015 [facility] [id number] [place] [address], [place] [address]- 1396 28 Feb, 2016 [facility] [address] [facility] [id number] [place] [address], [place] [address]- 2226 27 Feb, 2015 Restrictive lung disease J98.4 [facility] [id number] [place] [address] 93370- 1215 23 Feb, 2016 [facility] [id number] [address] -3580 22 Feb, 2016 [facility] [address] [address]- 5771 16 Feb, 2016 [facility] [address] [address]- 4090 24 Jan, 2016 [facility] [address] [address]- 7886 Jan, [facility] [id number] [address]- 3828 Jan, [facility] [id number] [place] [address] 38798- 0658 Jan, [facility] [address] [address]- 2041 Jan, Restrictive lung disease J98.4 ; Anemia D64.9 and Cor pulmonale I27.81 [facility] [id number] [place] [address] 37189- 1222 Dec, [facility] [id number] [place] [address] 90834- 1845 Dec, [facility] [id number] [place] [address] 48227- 4751 14 Nov, 2015 Arthritis M19.90 and Hypokalemia E87.6 [facility] [id number] [place] [address] 69818- 5359 Nov, Back pain M54.9 [facility] [id number] [place] [address] 51550- 5147 October, Back pain M54.9 [facility] [id number] [place] [address] 51166- 9803 October, Back pain M54.9 [facility] [id number] [place] [address] 76019- 4583 Sep, Scabies exposure Z20.89 [facility] [id number] [place] [address] 92386- 6739 Sep, Restrictive lung disease J98.4 [facility] [id number] [place] [address] 86480- 9169 Sep, Back pain M54.9 [facility] [id number] [place] [address] 12830- 6345 Sep, Restrictive lung disease J98.4 [facility] [id number] [place] [address] 25392- 0645 Aug, [facility] [id number] [place] [address] 98282- 9612 Aug, [facility] [id number] [place] [address] 30023- 2860 Aug, [facility] [id number] [place] [address] 00938- 5671 Aug, [facility] [id number] [place] [address] 46697- 1726 Aug, Back pain M54.9 [facility] [id number] [place] [address] 33767- 0805 Jul, Anemia D64.9 and Prediabetes R73.09 [facility] [address] 76083- 1651 Jul, Back pain M54.9 [facility] [id number] [place] [address] 65012- 1338 17 Jul, 2015 Back pain M54.9 [facility] [id number] [place] [address] 92937- 9928 Jul, [facility] [id number] [place] [address] 92841- 1995 Jul, Bronchitis J40 and Anemia D64.9 [facility] [id number] [place] [address] 33819- 4370 Jun, [facility] [address] 32979- 5805 Jun, [facility] [id number] [place] [address] 83519- 8044 Jun, Bronchitis J40 and Anemia D64.9 [facility] [id number] [place] [address] 42628- 9760 Jun, [facility] [id number] [place] [address] 68972- 8838 Jun, Back pain M54.9 [facility] [id number] [place] [address] 58419- 8731 Jun, Anemia D64.9 [facility] [id number] [place] [address] 91551- 3096 Jun, Restrictive lung disease J98.4 ; Anemia D64.9 ; Hypothyroidism E03.9 ; Cor pulmonale I27.81 and Back pain M54.9 [facility] [address] 80440- 3731 May, [facility] [address] 98769- 2696 Apr, Anemia D64.9 ; Encounter for immunization Z23 and Restrictive lung disease J98.4 [facility] [address] 71771- 6382 Apr, [facility] [address] 24987- 8632 Mar, [facility] [address] 91923- 0729 Mar, Iron deficiency anemia D50.9 [facility] [address] 21303- 4559 Mar, [facility] [address] 72838- 4268 Mar, [facility] [address] 78038- 9702 Mar, Anemia D64.9 [facility] [address] 47068- 7501 Mar, [facility] [address] 64814- 1719 Mar, Anemia D64.9 [facility] [id number] [place] [address] Mar, Restrictive lung disease J98.4 and Anemia D64.9 [facility] [id number] [place] [address]34- 1112 Mar, [facility] [id number] [place] [address]- 8368 Mar, Anemia D64.9 [facility] [id number] [address] Mar, Anemia D64.9 [facility] [id number] [place] [address] 20974- [address]327 Mar, [facility] [id number] [place] [address] 03132- 1744 Mar, Diabetes mellitus E11.9 ; Bronchitis J40 and Anemia D64.9 [facility] [id number] [place] [address] 3[address]- [address]87 30 Feb, 2015 [facility] [id number] [place] [address]87- 6863 Feb, [facility] [id number] [place] [address] 487[address]- [address]297 Feb, [facility] [id number] [place] [address]- [address] Feb, [facility] [id number] [place] [address] 45661- 9[address] Jan, [facility] [id number] [place] [address] 1980[address]- 7658 Jan, [facility] [id number] [place] [address] 34736- 1039 Dec, Venous insufficiency 459.81 [facility] [id number] [place] [address] 0[address]- 4263 Dec, [facility] [id number] [place] [address] 75847- 1398 Dec, [facility] [id number] [place] [address] 31643- 0999 Dec, Coronary atherosclerosis of unspecified type of vessel, [place] or graft 414.00 ; Unspecified anemia 285.9 and Generalized osteoarthrosis , unspecified site 715.00 [facility] [id number] [place] [address] 7[address]83- [address]84 Nov, [facility] [id number] [place] [address] Nov, [facility] [id number] [place] [address] Nov, [facility] [id number] [place] [address] October, [facility] [id number] [place] [address], [place] [address] October, Acute bronchitis 466.0 and Shortness of breath 786.05 [facility] [id number] [place] [address], [place] [address] Sep, [facility] [id number] [place] [address] Sep, [facility] [id number] [place] [address], [place] [address] Aug, [facility] [id number] [address] Aug, [facility] [id number] [place] [address] Jul, [facility] [id number] [address] Jul, [facility] [id number] [place] [address] Jul, [facility] [address] [id number] [place] [address] 9[address] Jul, [facility] [id number] [place] [address] Jun, [facility] [id number] [place] [address]- 15[address] Jun, [facility] [id number] [address] Jun, [facility] [place] [facility] [address] [id number] [place] [address]- 3013 Jun, [facility] [place] [facility] [address] [id number] [place] [address]- 6959 Jun, [facility] [place] [facility] [address] [id number] [place] [address]- 4630 Jun, [facility] [place] [facility] [address] [id number] [place] [address]- 9471 May, [facility] [place] [facility] [address] [id number] [place] [address]- 9793 May, [facility] [place] [facility] [address] [id number] [place] [address]- 3158 May, [facility] [place] [facility] [address] [id number] [place] [address]- 3465 May, [facility] [place] [facility] [address] [id number] [place] [address]- 9093 Apr, [facility] [place] [facility] [address] [id number] [place] [address]- 2088 Apr, [facility] [place] [facility] [address] [id number] [place] [address]- 6573 Apr, [facility] [place] [facility] [address] [id number] [place] [address]- 6175 Apr, [facility] [place] [facility] [address] [id number] [address]- 8[address] Apr, [facility] [place] [facility] [address] [id number] [place] [address]- 7118 Apr, [facility] [place] [facility] [address] [id number] [place] [address]- 6716 Mar, [facility] [place] [facility] [address] [id number] [address] Mar, [facility] [place] [facility] [address] [id number] [address]- 1014 Mar, [facility] [place] [facility] [address] [id number] [place] [address]- 8863 Mar, [facility] [place] [facility] [address] [id number] [place] [address]- 5266 Mar, [facility] [place] [facility] [address] [id number] [place] [address]- 0536 Mar, [facility] [place] [facility] [address] [id number] [place] [address]- 6974 Mar, [facility] [place] [facility] [address] [id number] [place] [address]- 8566 Mar, [facility] [place] [facility] [address] [id number] [place] [address]- 2012 Feb, [facility] [place] [facility] [address] [id number] [place] [address]- 5149 Feb, [facility] [place] [facility] [address] [id number] [place] [address]- 4434 Jan, [facility] [place] [facility] [address] [id number] [place] [address]- 1442 Jan, [facility] [place] [facility] [address] [facility] [id number] [place] [address]- 7169 Jan, [facility] [place] [facility] [address] [id number] [place] [address]- 1673 Jan, [facility] [place] [facility] [address] [id number] [place] [address]- 0176 Jan, [facility] [place] [facility] [address] [id number] [place] [address]- 4617 Jan, [facility] [place] [facility] [address] [id number] [place] [address]- 2623 Dec, [facility] [place] [facility] [address] [facility] [id number] [place] [address]- 1678 Dec, [facility] [place] [facility] [address] [id number] [place] [address]- 2864 Dec, [facility] [place] [facility] [address] [id number] [place] [address]- 0197 Dec, [facility] [place] [facility] [address] [id number] [place] [address]- 6801 Nov, [facility] [place] [facility] [address] [id number] [place] [address]- 6706 Nov, [facility] [place] [facility] [address] [id number] [place] [address]- 2863 Nov, [facility] [place] [facility] [address] [id number] [place] [address]- 3365 Nov, [facility] [place] [facility] [address] [id number] [place] [address]- 3299 Nov, [facility] [place] [facility] [address] [id number] [place] [address]- 1917 Nov, [facility] [place] [facility] [address] [id number] [place] [address]- 8795 Nov, [facility] [place] [facility] [address] [id number] [place] [address]- 1392 Nov, [facility] [place] [facility] [address] [id number] [place] [address]- 7658 Nov, [facility] [place] [facility] [address] [id number] [place] [address]- 2356 Nov, [facility] [place] [facility] [address] [id number] [place] [address]- 1928 Nov, [facility] [place] [facility] [address] [id number] [place] [address]- 0119 Nov, [facility] [place] [facility] [address] [id number] [place] [address]- 9243 October, [facility] [place] [facility] [address] [id number] [place] [address]- 1901 October, [facility] [place] [facility] [address] [id number] [place] [address]- 2908 October, [facility] [place] [facility] [address] [id number] [place] [address]- 8726 October, [facility] [place] [facility] [address] [id number] [place] [address]- 0782 October, [facility] [place] [facility] [address] [id number] [place] [address]- 3421 October, [facility] [place] [facility] [address] [id number] [place] [address]- 2790 October, [facility] [place] [facility] [address] [id number] [place] [address]- 0345 October, [facility] [place] [facility] [address] [id number] [place] [address]- 3885 October, [facility] [place] [facility] [address] [id number] [place] [address]- 7800 Sep, [facility] [place] [facility] [address] [id number] [place] [address]- 7489 Sep, [facility] [place] [facility] [address] [id number] [place] [address]- 1288 Sep, [facility] [place] [facility] [address] [id number] [place] [address]- 4754 Sep, [facility] [place] [facility] [address] [id number] [place] [address]- 0174 Sep, [facility] [place] [facility] [address] [id number] [place] [address]- 9706 Sep, [facility] [place] [facility] [address] [id number] [place] [address]- 9679 Aug, [facility] [place] [facility] [address] [id number] [place] [address]- 6269 Aug, [facility] [place] [facility] [address] [id number] [place] [address]- 9111 Aug, [facility] [place] [facility] [address] [id number] [place] [address]- 4145 Aug, [facility] [place] [facility] [address] [id number] [place] [address]- 4737 Aug, [facility] [place] [facility] [address] [id number] [place] [address]- 8807 Aug, [facility] [place] [facility] [address] [id number] [place] [address]- 2713 Aug, [facility] [place] [facility] [address] [id number] [place] [address]- 8489 Aug, [facility] [place] [facility] [address] [id number] [place] [address]- 2923 Aug, [facility] [place] [facility] [address] [id number] [place] [address]- 1783 Aug, [facility] [place] [facility] [address] [id number] [place] [address]- 0153 Jul, [facility] [place] [facility] [address] [id number] [place] [address]- 5070 Jul, [facility] [place] [facility] [address] [id number] [place] [address]- 7849 Jun, [facility] [place] [facility] [address] [id number] [place] [address]- 8056 Jun, [facility] [place] [facility] [address] [id number] [place] [address]- 9516 Jun, [facility] [place] [facility] [address] [id number] [place] [address]- 1202 Jun, [facility] [place] [facility] [address] [id number] [place] [address]- 0247 Jun, [facility] [place] [facility] [address] [id number] [place] [address]- 1044 Jun, [facility] [place] [facility] [address] [id number] [place] [address]- 4858 Jun, [facility] [address] [id number] [place] [address]- 7317 Jun[facility] [address] [id number] [place] [address]- 7515 May, [facility] [address] [id number] [place] [address]- 2879 May, [facility] [address] [id number] [place] [address]- 1272 May, [facility] [address] [id number] [place] [address]- 0494 May, [facility] [address] [id number] [place] [address]- 3630 May, [facility] [address] [id number] [place] [address]- 7355 May, [facility] [address] [id number] [place] [address]- 5274 May, [facility] [address] [id number] [place] [address]- 4438 May, [facility] [address] [id number] [place] [address]- 0642 May, [facility] [address] [id number] [place] [address]- 4222 Apr, [facility] [place] [facility] [address] [id number] [place] [address]- 5317 Apr, [facility] [place] [facility] [address] [id number] [place] [address]- 6076 Apr, [facility] [place] [facility] [address] [id number] [place] 9041 Apr, [facility] [place] [facility] [address] [id number] [address]- 9817 30 Mar, 2012 [facility] [place] [facility] [address] [id number] [place] [address]- 0283 30 Mar, 2012 [facility] [place] [facility] [address] [id number] [address]- 2744 Mar, 2012 [facility] [place] [facility] [address] [id number] [place] [address]- 4365 Mar, 2012 [facility] [place] [facility] [address] [id number] [address]- 5266 30 Mar, 2012 [facility] [place] [facility] [address] [id number] [place] [address]- 0618 Mar, 2012 [facility] [place] [facility] [address] [id number] [place] [address]- 1453 Mar, 2012 [facility] [place] [facility] [address] [id number] [place] [address]- 7909 Mar, 2012 [facility] [place] [facility] [address] [id number] [address]- 9080 Mar, 2012 [facility] [place] [facility] [address] [id number] [place] [address]- 7236 Mar, 2012 [facility] [place] [facility] [address] [id number] [place] [address]- 8908 Mar, 2012 [facility] [place] [facility] [address] [id number] [place] [address]- 1175 Mar, 2012 [facility] [place] [facility] [address] [id number] [address]- 4364 Mar, 2012 [facility] [place] [facility] [address] [id number] [address]- 9363 Mar, 2012 [facility] [place] [facility] [address] [id number] [place] [address]- 4711 Mar, 2012 [facility] [place] [facility] [address] [id number] [address]- 7658 Mar, 2012 [facility] [place] [facility] [address] [id number] [place] [address]- 6824 17 Mar, 2012 [facility] [place] [facility] [address] [id number] [place] [address]- 8435 17 Mar, 2012 [facility] [place] [facility] [address] [id number] [place] [address]- 4751 15 Mar, 2012 [facility] [place] [facility] [address] [id number] [place] [address]- 9282 15 Mar, 2012 [facility] [place] [facility] [address] [id number] [place] [address]- 4382 14 Mar, 2012 [facility] [place] [facility] [address] [id number] [place] [address]- 6238 14 Mar, 2012 [facility] [place] [facility] [address] [id number] [place] [address]- 8941 14 Mar, 2012 [facility] [place] [facility] [address] [id number] [place] [address]- 5182 14 Mar, 2012 [facility] [place] [facility] [address] [id number] [place] [address]- 7649 12 Mar, 2012 [facility] [place] [facility] [address] [id number] [place] [address]- 8144 11 Mar, 2012 [facility] [place] [facility] [address] [id number] [place] [address]- 4064 11 Mar, 2012 [facility] [place] [facility] [address] [id number] [place] [address]- 7789 10 Mar, 2012 [facility] [place] [facility] [address] [id number] [place] [address]- 1794 10 Mar, 2012 [facility] [place] [facility] [address] [id number] [place] [address]- 0283 10 Mar, 2012 [facility] [place] [facility] [address] [id number] [place] [address]- 6440 10 Mar, 2012 [facility] [place] [facility] [address] [id number] [place] [address]- 4491 Mar, [facility] [place] [facility] [address] [id number] [place] [address]- 0425 Mar, [facility] [place] [facility] [address] [id number] [place] [address]- 4262 Feb, [facility] [place] [facility] [address] [id number] [place] [address]- 4793 Feb, [facility] [place] [facility] [address] [id number] [place] [address]- 0175 Feb, [facility] [place] [facility] [address] [id number] [place] [address]- 5567 Feb, [facility] [place] [facility] [address] [id number] [place] [address]- 8901 Jan, [facility] [place] [facility] [address] [id number] [place] [address]- 7282 Jan, [facility] [place] [facility] [address] [id number] [place] [address]- 1939 Jan, [facility] [place] [facility] [address] [id number] [place] [address]- 4791 Jan, [facility] [place] [facility] [address] [id number] [place] [address]- 7950 Jan, [facility] [place] [facility] [address] [id number] [place] [address]- 8711 Jan, [facility] [place] [facility] [address] [id number] [place] [address]- 6542 Dec, [facility] [place] [facility] [address] [id number] [place] [address]- 3191 Dec, [facility] [place] [facility] [address] [id number] [place] [address]- 8568 Dec, [facility] [place] [facility] [address] [id number] [place] 1191 Dec, [facility] [place] [facility] [address] [id number] [place] [address]- 8304 Dec, [facility] [address] [id number] [place] [address]- 5811 Dec, [facility] [address] [id number] [place] [address]- 8796 Dec, [facility] [address] [id number] [place] [address]- 6706 Dec, [facility] [address] [id number] [place] [address]- 8884 Dec, [facility] [address] [id number] [place] [address]- 4039 Dec, [facility] [address] [id number] [place] [address]- 8519 Dec, [facility] [address] [id number] [place] [address]- 4446 October, [facility] [address] [id number] [place] [address]- 7789 October, [facility] [address] [id number] [place] [address]- 2645 October, [facility] [address] [id number] [place] [address]- 4090 October, [facility] [address] [id number] [place] [address]- 2789 Sep, [facility] [place] [facility] [address] [id number] [place] [address]- 6629 Sep, [facility] [address] [id number] [place] [address]- 4921 Sep, [facility] [address] [id number] [place] [address]- 6619 Sep, [facility] [address] [id number] [place] [address]- 5461 Sep, [facility] [address] [facility] [id number] [place] [address]- 2533 16 Sep, 2012 [facility] [address] [facility] [id number] [place] [address]- 5256 15 Sep, 2012 [facility] [address] [facility] [id number] [address]- 4496 14 Sep, 2012 [facility] [address] [facility] [id number] [address]- 9990 13 Sep, 2012 [facility] [address] [facility] [id number] [place] [address]- 0207 12 Sep, 2012 [facility] [address] [facility] [id number] [place] [address]- 4327 Sep, IMMUNIZATIONS No Known Immunizations SOCIAL HISTORY Never Assessed REASON FOR VISIT PLAN OF CARE VITAL SIGNS MEDICATIONS Unknown [...]
--- OUTSIDE RECORDS SUMMARY | 2018-03-19 23:56 | XMS REPORT ---
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 I25.10 Active 7953082294617 Problem Skin cancer of face C44.300 Active 039512738 Problem Morbid (severe) obesity due to excess calories E66.01 Active 162717405 Problem Body mass index (BMI) of 45.0-49.9 in adult Z68.42 Active 207628969 Problem Venous insufficiency I87.2 Active 40094897 Problem 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 Active 575128185 Problem Anemia D64.9 Active 913590255 Problem Cor pulmonale I27.81 Active 59146685 Problem Back pain M54.9 Active 806390001 Problem Restrictive lung disease J98.4 Active 66849601 Problem Hypothyroidism E03.9 Active 10466299 ALLERGIES No Information ENCOUNTERS Encounter Location Date Diagnosis [facility] [place] [id number], [place] [address] Jan, Arthritis M19.90 [facility] [place] [address], [place] [address] Jan, Back pain M54.9 and Arthritis M19.90 [facility] [place] [id number], [place] [address] Jan, [facility] [place] [address], [place] [address] Jan, Back pain M54.9 [facility] [place] [address], [place] [address] Jan, Arthritis M19.90 [facility] [place] [id number] [place] [address] 97006- 2963 Jan, Back pain M54.9 [facility] [place] [id number] [place] [address] 02248- 1412 Jan, [facility] [place] [id number] [place] [address] 43170- 3976 Jan, Back pain M54.9 [facility] [place] [id number] [place] [address] 61208- 6592 Dec, Ingrowing nail with infection L60.0 and Onychomycosis B35.1 [facility] [place] [id number] [place] [address] 31096- 6555 Dec, Arthritis M19.90 [facility] [place] [id number] [place] [address] 61227- 1377 Dec, Ingrowing nail L60.0 [facility] [place] [id number] [place] [address] 13779- 9443 Dec, Back pain M54.9 [facility] [id number] [place] [address] 24209 -4018 Dec, [facility] [place] [id number] [place] [address] 51130- 1527 Dec, Back pain M54.9 [facility] [place] [address], [place] [address] 2902 Nov, Arthritis M19.90 [facility] [place] [id number] [place] [address] 14562- 1357 Nov, [facility] [place] [address], [place] [address] 5274 Nov, Arthritis M19.90 ; Anemia D64.9 ; Restrictive lung disease J98.4 ; Weakness R53.1 and BMI 50.0-59.9, adult Z68.43 [facility] [place] [address] [address]- 7564 Nov, Arthritis M19.90 [facility] [place] [id number] [place] [address] 51892- 7254 Nov, Back pain M54.9 [facility] [place] [address] 13204- 1290 October, Back pain M54.9 [facility] [place] [address] 31954- 2994 October, Back pain M54.9 [facility] [place] [id number] [place] [address] 65625- 9626 Sep, Back pain M54.9 [facility] [place] [address] 61045- 1581 Sep, Back pain M54.9 [facility] [id number] [place] [address] 72693 -4465 Sep, [facility] [id number] [place] [address] 40003 -4318 Sep, [facility] [id number] [place] [address] 50032 -6305 Sep, Swelling of right lower extremity M79.89 and Cellulitis of right lower extremity L03.115 [facility] [place] [id number] [place] [address] 48612- 9282 27 Aug, 2017 Back pain M54.9 [facility] [place] [id number] [place] [address] 53177- 0825 15 Aug, 2017 Back pain M54.9 [facility] [place] [id number] [place] [address] 47584- 5996 13 Aug, 2017 [facility] [place] [address] [place] [address]- 2474 13 Aug, 2017 Cellulitis of right lower extremity L03.115 ; Ventral hernia without obstruction or gangrene K43.9 and BMI 50.0-59.9, adult Z68.43 [place] [address] 45342- 9597 28 Jul, 2017 Back pain M54.9 [place] [address] 92716- 8299 28 Jul, 2017 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 ; Arthritis M19.90 ; Back pain M54.9 ; Prediabetes R73.09 ; Hypothyroidism E03.9 ; Coronary artery disease involving chilkat coronary artery of chilkat heart without angina pectoris I25.10 and Anemia D64.9 [place] [address] 73956- 1289 27 Jul, 2017 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 ; Back pain M54.9 ; Arthritis M19.90 ; Prediabetes R73.09 ; Hypothyroidism E03.9 ; Coronary artery disease involving chilkat coronary artery of chilkat heart without angina pectoris I25.10 ; Anemia D64.9 and BMI 45.0-49.9, adult Z68.42 [place] [id number] [place] [address] 67679- 9747 15 Jul, 2017 Back pain M54.9 [place] [address] 85609- 0763 05 Jul, 2017 Back pain M54.9 [place] [id number] [place] [address] 32713- 2854 Jun, Back pain M54.9 [place] [address] 72941- 2391 Jun, Back pain M54.9 [facility] [id number] [place] [address] 21231 -0378 May, Skin cancer of face C44.300 and BMI 45.0-49.9, adult Z68.42 [facility] [place] [id number] [place] [address] 86068- 1555 May, [facility] [place] [address] 52533- 7837 May, Back pain M54.9 [facility] [place] [address] 67277- 9912 May, Back pain M54.9 [facility] [place] [address] 45503- 2797 May, Back pain M54.9 [facility] [place] [address] 77088- 6963 Apr, Back pain M54.9 [facility] [place] [address] 07865- 3645 Apr, Back pain M54.9 [facility] [place] [address] 78918- 6951 Mar, Back pain M54.9 [facility] [place] [address] 14726- 3237 Mar, Anemia D64.9 ; Encounter for immunization Z23 ; Arthritis M19.90 and Right inguinal hernia K40.90 [facility] [place] [address] 11855- 3680 Mar, Back pain M54.9 [facility] [place] [id number] [place] [address] 86839- 3262 Feb, Back pain M54.9 [facility] [place] [address] 44320- 6473 13 Feb, 2017 Back pain M54.9 [facility] [place] [id number] [place] [address] 05549- 0508 Jan, Back pain M54.9 [facility] [place] [address] [place] [address]- 8576 Jan, Back pain M54.9 [facility] [place] [id number] [place] [address] 42633 2546 Jan, [facility] [place] [id number] [place] [address] 02421 2546 Jan, Back pain M54.9 [facility] [place] [id number] [place] [address] 84005 2546 Dec, Back pain M54.9 [facility] [place] [id number] [place] [address] 70731 2546 Dec, Back pain M54.9 [facility] [place] [id number] [place] [address] 36216 2546 Dec, [facility] [place] [id number] [place] [address] 38294- 8332 Nov, Hypokalemia E87.6 [facility] [place] [id number] [place] [address] 17270 2543 Nov, Back pain M54.9 [facility] [place] [id number] [place] [address] 47893 2546 Nov, [facility] [place] [id number] [place] [address] 16770 2540 Nov, Arthritis M19.90 [facility] [place] [id number] [place] [address] 04823 2546 Nov, Back pain M54.9 [facility] [place] [id number] [place] [address] 99396 2546 Nov, Generalized edema R60.1 [facility] [place] [id number] [place] [address] 06883 2546 Nov, Back pain M54.9 [facility] [place] [id number] [place] [address] 82879 2546 Nov, Pain in right knee M25.561 [facility] [place] [address], [place] [address]- 5529 05 Nov, 2016 Encounter for removal of sutures Z48.02 and Pain in right knee M25.561 [facility] [place] [id number] [place] [address] 40517 -1709 Nov, Abrasion of right foot, subsequent encounter S90.811D [facility] [place] [id number] [place] [address] 16733 -1080 October, Toe abrasion, right, initial encounter S90.414A [place] [id number] [place] [address] 31907- 2795 October, [place] [id number] [place] [address] 72922- 6064 October, Back pain M54.9 [place] [id number] [place] [address] 95387- 8626 October, Venous insufficiency I87.2 [place] [id number] [place] [address] 77356- 1259 October, Pain in right knee M25.561 [place] [id number] [place] [address] 78362- 5819 Sep, Back pain M54.9 [place] [id number] [place] [address] 47667- 9300 Sep, Venous insufficiency I87.2 [facility] [id number] [place] [address] [id number] Sep, [facility] [id number] [place] [address] 74032 -0994 16 Sep, 2016 Leg edema, right R60.0 and Cellulitis of right lower extremity L03.115 [place] [id number] [place] [address] 30790- 3228 14 Sep, 2016 Pedal edema R60.0 [place] [id number] [place] [address] 51004- 8185 Sep, 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 ; Pain in right knee M25.561 and Arthritis M19.90 [facility] [place] [id number] [place] [address] 99159- 3981 Aug, Back pain M54.9 [facility] [place] [id number] [place] [address] 07239- 0370 Aug, Back pain M54.9 [facility] [place] [id number] [place] [address] 90980- 7787 Aug, [facility] [place] [id number] [place] [address] 26272- 7114 Aug, Type 2 diabetes mellitus without complication E11.9 ; Restrictive lung disease J98.4 ; Arthritis M19.90 ; Back pain M54.9 ; Body mass index (BMI) of 45.0-49.9 in adult Z68.42 and Morbid (severe) obesity due to excess calories E66.01 [facility] [place] [id number] [place] [address] 97207- 5804 Aug, Back pain M54.9 [facility] [place] [id number] [place] [address] 54966- 8457 Aug, Back pain M54.9 [facility] [place] [id number] [place] [address] 49839- 3299 Jul, [facility] [place] [id number] [place] [address] 59509- 1963 Jul, Back pain M54.9 [facility] [place] [id number] [place] [address] 56399- 2975 Jul, Back pain M54.9 [facility] [place] [id number] [place] [address] 68859- 4288 Jun, Back pain M54.9 [facility] [place] [id number] [place] [address] 26189- 2044 Jun, Back pain M54.9 [facility] [place] [id number] [place] [address] 15779- 2699 May, Back pain M54.9 [facility] [place] [id number] [place] [address] 93934- 3046 May, Back pain M54.9 [facility] [place] [id number] [place] [address] 92998- 1960 May, Back pain M54.9 [facility] [place] [id number] [place] [address] 26729- 7661 May, Back pain M54.9 [facility] [place] [id number] [place] [address] 21095- 4887 May, [facility] [place] [id number] [place] [address] 21326- 0444 May, Back pain M54.9 and Pain in right knee M25.561 [facility] [place] [id number] [place] [address] 71776- 3193 Apr, [facility] [place] [id number] [place] [address] 92204- 8217 Apr, Type 2 diabetes mellitus without complication E11.9 ; Pain in right knee M25.561 and Pain in left knee M25.562 [facility] [place] [id number] [place] [address] 56958- 5697 Mar, [facility] [place] [id number] [place] [address] 23625- 7414 Mar, [facility] [place] [id number] [place] [address] 92275- 8731 Mar, [facility] [place] [id number] [place] [address] 92494- 8420 Mar, Restrictive lung disease J98.4 ; Anemia D64.9 and Cor pulmonale I27.81 [facility] [place] [id number] [address]- 3611 17 Mar, 2016 [facility] [place] [address] [facility] [id number] [place] [address] 87601- 5732 14 Mar, 2016 [facility] [place] [address] [facility] [id number] [place] [address]- 0780 03 Mar, 2016 [facility] [place] [id number] [place] [address] 10500- 6718 30 Feb, 2015 [facility] [place] [address] [facility] [id number] [place] [address], [place] [address]- 5299 29 Feb, 2015 [facility] [place] [id number] [place] [address], [place] [address]- 7936 28 Feb, 2016 [facility] [place] [address] [facility] [id number] [place] [address], [place] [address]- 0386 27 Feb, 2015 Restrictive lung disease J98.4 [facility] [place] [id number] [place] [address] 55635- 4996 23 Feb, 2016 [facility] [id number] [address] -8112 22 Feb, 2016 [facility] [place] [address], [place] [address]- 4792 16 Feb, 2016 [facility] [place] [address], [place] [address]- 6820 24 Jan, 2016 [facility] [place] [address] [place] [address]- 2178 Jan, [facility] [place] [id number] [address]- 7689 Jan, [facility] [place] [id number] [place] [address] 12068- 7919 Jan, [facility] [place] [address], [place] [address]- 9225 Jan, Restrictive lung disease J98.4 ; Anemia D64.9 and Cor pulmonale I27.81 [facility] [place] [id number] [place] [address] 65112- 6148 Dec, [facility] [place] [id number] [place] [address] [phone]- [phone] Dec, [facility] [place] [id number] [place] [address] [id number]- [phone] 14 Nov, 2015 Arthritis M19.90 and Hypokalemia E87.6 [facility] [place] [id number] [place] [address] [phone]- [phone] Nov, Back pain M54.9 [facility] [place] [id number] [place] [address] [phone]- 8155 October, Back pain M54.9 [facility] [place] [id number] [place] [address] [phone]- 7338 October, Back pain M54.9 [facility] [place] [id number] [place] [address] [id number]- 2772 Sep, Scabies exposure Z20.89 [facility] [place] [id number] [place] [address] [id number]- 3002 Sep, Restrictive lung disease J98.4 [facility] [place] [id number] [place] [address] 66768- 3521 Sep, Back pain M54.9 [facility] [place] [id number] [place] [address] 08856- 8657 Sep, Restrictive lung disease J98.4 [facility] [place] [id number] [place] [address] [phone]- [phone] Aug, [facility] [place] [id number] [place] [address] [phone]- [phone] Aug, [facility] [place] [id number] [place] [address] [phone]- [phone] Aug, [facility] [place] [id number] [place] [address] [phone]- [phone] Aug, [facility] [place] [id number] [place] [address] [phone]- [phone] Aug, Back pain M54.9 [facility] [place] [id number] [place] [address] 19845- 4570 Jul, Anemia D64.9 and Prediabetes R73.09 [facility] [place] [address] 51427- 0717 Jul, Back pain M54.9 [facility] [place] [id number] [place] [address] [phone]- [phone] 17 Jul, 2015 Back pain M54.9 [facility] [place] [id number] [place] [address] [phone]- [phone] Jul, [facility] [place] [id number] [place] [address] 88926- 8368 Jul, Bronchitis J40 and Anemia D64.9 [facility] [place] [id number] [place] [address] [phone]- [phone] Jun, [facility] [place] [address] [phone]- 0610 Jun, [facility] [place] [id number] [place] [address] 39906- 2584 Jun, Bronchitis J40 and Anemia D64.9 [facility] [place] [id number] [place] [address] [id number]- [phone] Jun, [facility] [place] [id number] [place] [address] 59735- 9301 Jun, Back pain M54.9 [facility], [place] [id number] [place] [address] 42879- 8589 Jun, Anemia D64.9 [facility] [place] [id number] [place] [address] 79751- 5997 Jun, Restrictive lung disease J98.4 ; Anemia D64.9 ; Hypothyroidism E03.9 ; Cor pulmonale I27.81 and Back pain M54.9 [facility] [place] [address] 86973- 5389 May, [facility] [place] [address] 65898- 4798 Apr, Anemia D64.9 ; Encounter for immunization Z23 and Restrictive lung disease J98.4 [facility] [place] [address] 83675- 3562 Apr, [facility] [place] [address] 55173- 3326 Mar, [facility] [place] [address] 06310- 3187 Mar, Iron deficiency anemia D50.9 [facility] [place] [address] 46103- 0531 Mar, [facility] [place] [address] 79093- 5097 Mar, [facility] [place] [address] 30476- 1184 Mar, Anemia D64.9 [facility] [place] [address] 79655- 9295 Mar, [facility] [place] [address] 27084- 7869 Mar, Anemia D64.9 [facility] [place] [id number] [place] [address] 51537- 5421 Mar, Restrictive lung disease J98.4 and Anemia D64.9 [facility] [place] [id number] [place] [address] 79267- 5591 Mar, [facility] [place] [id number] [place] [address] 27795- 4521 Mar, Anemia D64.9 [facility] [place] [address], [place] [address]- 4048 Mar, Anemia D64.9 [facility] [place] [id number] [place] [address] 88228- 7479 Mar, [facility] [place] [id number] [place] [address] 78003- 3698 Mar, Diabetes mellitus E11.9 ; Bronchitis J40 and Anemia D64.9 [facility] [place] [id number] [place] [address] 93991- 2693 30 Feb, 2015 [facility] [place] [id number] [place] [address] 59558- 2784 Feb, [facility] [place] [id number] [place] [address] 54970- 2143 Feb, [facility] [place] [id number] [place] [address] 33183- 0061 Feb, [facility] [place] [id number] [place] [address] 48145- 6152 Jan, [facility] [place] [id number] [place] [address] 74268- 2615 Jan, [facility] [place] [id number] [place] [address] 17047- 1616 Dec, Venous insufficiency 459.81 [facility] [place] [id number] [place] [address] 03813- 6759 Dec, [facility] [place] [id number] [place] [address] 26053- 8032 Dec, [facility] [place] [id number] [place] [address] 18848- 6379 Dec, Coronary atherosclerosis of unspecified type of vessel, chilkat or graft 414.00 ; Unspecified anemia 285.9 and Generalized osteoarthrosis , unspecified site 715.00 [facility] [place] [id number] [place] [address] 41243- 1083 Nov, [facility] [place] [address] [id number] [place] [address]- 0095 Nov, [facility] [id number] [place] [address]- 8682 Nov, [facility] [id number] [place] [address]- 7760 October, [facility] [id number] [place] [address], [place] [address]- 7134 October, Acute bronchitis 466.0 and Shortness of breath 786.05 [facility] [place] [id number] [place] [address], [place] [address]- 0994 Sep, [facility] [id number] [place] [address]- 7384 Sep, [facility] [place] [id number] [place] [address], [place] [address]- 6539 Aug, [facility] [address], [place] [address]- 5234 Aug, [facility] [id number] [place] [address]- 6678 Jul, [facility] [address], [place] [address]- 2281 Jul, [facility] [place] [id number] [place] [address]- 6452 Jul, [facility] [address] [id number] [place] [address]- 6631 Jul, [facility] [id number] [place] [address]- 1914 Jun, [facility] [id number] [place] [address]- 8581 Jun, [facility] [place] [address]65[address], [place] [address]- 9502 Jun, [facility] [place] [facility] [address] [id number] [place] [address]- 8447 Jun, [facility] [place] [facility] [address] [id number] [place] [address]- 0555 Jun, [facility] [place] [facility] [address] [id number] [place] [address]- 0422 Jun, [facility] [place] [facility] [address] [id number] [place] [address]- 5917 May, [facility] [place] [facility] [address] [id number] [place] [address]- 4043 May, [facility] [place] [facility] [address] [id number] [place] [address]- 8561 May, [facility] [place] [facility] [address] [id number] [place] [address]- 8144 May, [facility] [place] [facility] [address] [id number] [place] [address]- 7761 Apr, [facility] [place] [facility] [address] [id number] [place] [address]- 7390 Apr, [facility] [place] [facility] [address] [id number] [place] [address]- 4049 Apr, [facility] [place] [facility] [address] [id number] [place] [address]- 4402 Apr, [facility] [place] [facility] [address] [id number], [place] [address]- 2422 Apr, [facility] [place] [facility] [address] [id number] [place] [address]- 7338 Apr, [facility] [place] [facility] [address] [id number] [place] [address]- 9626 Mar, [facility] [place] [facility] [address] [id number] 1443 Mar, [facility] [place] [facility] [address] [id number], [place] [address]- 3494 Mar, [facility] [place] [facility] [address] [id number] [place] [address]- 9611 Mar, [facility] [place] [facility] [address] [id number] [place] [address]- 9905 Mar, [facility] [place] [facility] [address] [id number] [place] [address]- 2829 Mar, [facility] [place] [facility] [address] [id number] [place] [address]- 7403 Mar, [facility] [place] [facility] [address] [id number] [place] [address]- 8372 Mar, [facility] [place] [facility] [address] [id number] [place] [address]- 7462 Feb, [facility] [place] [facility] [address] [id number] [place] [address]- 3898 Feb, [facility] [place] [facility] [address] [id number] [place] [address]- 1843 Jan, [facility] [place] [facility] [address] [id number] [place] [address]- 2699 Jan, [facility] [place] [facility] [address] [facility] [id number] [place] [address]- 8959 Jan, [facility] [place] [facility] [address] [id number] [place] [address]- 9244 Jan, [facility] [place] [facility] [address] [id number] [place] [address]- 1824 Jan, [facility] [place] [facility] [address] [id number] [place] [address]- 5542 Jan, [facility] [place] [facility] [address] [id number] [place] [address]- 9497 Dec, [facility] [place] [facility] [address] [facility] [id number] [place] [address]- 6996 Dec, [facility] [place] [facility] [address] [id number] [place] [address]- 7182 Dec, [facility] [place] [facility] [address] [id number] [place] [address]- 4665 Dec, [facility] [place] [facility] [address] [id number] [place] [address]- 4663 Nov, [facility] [place] [facility] [address] [id number] [place] [address]- 0718 Nov, [facility] [place] [facility] [address] [id number] [place] [address]- 0126 Nov, [facility] [place] [facility] [address] [id number] [place] [address]- 2986 Nov, [facility] [place] [facility] [address] [id number] [place] [address]- 5014 Nov, [facility] [place] [facility] [address] [id number] [place] [address]- 2715 Nov, [facility] [place] [facility] [address] [id number] [place] [address]- 0877 Nov, [facility] [place] [facility] [address] [id number] [place] [address]- 4598 Nov, [facility] [place] [facility] [address] [id number] [place] [address]- 2658 Nov, [facility] [place] [facility] [address] [id number] [place] [address]- 7791 Nov, [facility] [place] [facility] [address] [id number] [place] [address]- 1917 Nov, [facility] [place] [facility] [address] [id number] [place] [address]- 7747 Nov, [facility] [place] [facility] [address] [id number] [place] [address]- 2532 October, [facility] [place] [facility] [address] [id number] [place] [address]- 5420 October, [facility] [place] [facility] [address] [id number] [place] [address]- 0273 October, [facility] [place] [facility] [address] [id number] [place] [address]- 0646 October, [facility] [place] [facility] [address] [id number] [place] [address]- 0029 October, [facility] [place] [facility] [address] [id number] [place] [address]- 5614 October, [facility] [place] [facility] [address] [id number] [place] [address]- 2129 October, [facility] [place] [facility] [address] [id number] [place] [address]- 2168 October, [facility] [place] [facility] [address] [id number] [place] [address]- 3133 October, [facility] [place] [facility] [address] [id number] [place] [address]- 8189 Sep, [facility] [place] [facility] [address] [id number] [place] [address]- 8044 Sep, [facility] [place] [facility] [address] [id number] [place] [address]- 9953 Sep, [facility] [place] [facility] [address] [id number] [place] [address]- 9738 Sep, [facility] [place] [facility] [address] [id number] [place] [address]- 1385 Sep, [facility] [place] [facility] [address] [id number] [place] [address]- 5675 Sep, [facility] [place] [facility] [address] [id number] [place] [address]- 2887 Aug, [facility] [place] [facility] [address] [id number] [place] [address]- 2296 Aug, [facility] [place] [facility] [address] [id number] [place] [address]- 1448 Aug, [facility] [place] [facility] [address] [id number] [place] [address]- 5360 Aug, [facility] [place] [facility] [address] [id number] [place] [address]- 7487 Aug, [facility] [place] [facility] [address] [id number] [place] [address]- 6062 Aug, [facility] [place] [facility] [address] [id number] [place] [address]- 9394 Aug, [facility] [place] [facility] [address] [id number] [place] [address]- 7971 Aug, [facility] [place] [facility] [address] [id number] [place] [address]- 2765 Aug, [facility] [place] [facility] [address] [id number] [place] [address]- 5402 Aug, [facility] [place] [facility] [address] [id number] [place] [address]- 7061 Jul, [facility] [place] [facility] [address] [id number] [place] [address]- 0707 Jul, [facility] [place] [facility] [address] [id number] [place] [address]- 0350 Jun, [facility] [place] [facility] [address] [id number] [place] [address]- 1538 Jun, [facility] [place] [facility] [address] [id number] [place] [address]- 6158 Jun, [facility] [place] [facility] [address] [id number] [place] [address]- 3331 Jun, [facility] [place] [facility] [address] [id number] [place] [address]- 1814 Jun, [facility] [place] [facility] [address] [id number] [place] [address]- 0059 Jun, [facility] [place] [facility] [address] [id number] [place] [address]- 8166 Jun, [facility] [address] [id number] [place] [address]- 9712 Jun, [facility] [address] [id number] [place] [address]- 0146 May, [facility] [address] [id number] [place] [address]- 0254 May, [facility] [address] [id number] [place] [address]- 8315 May, [facility] [address] [id number] [place] [address]- 2090 May, [facility] [address] [id number] [place] [address]- 4920 May, [facility] [address] [id number] [place] [address]- 8093 May, [facility] [address] [id number] [place] [address]- 6333 May, [facility] [address] [id number] [place] [address]- 7906 May, [facility] [address] [id number] [place] [address]- 2995 May, [facility] [address] [id number] [place] [address]- 7484 Apr, [facility] [place] [facility] [address] [id number] [place] [address]- 8887 Apr, [facility] [place] [facility] [address] [id number] [place] [address]- 3029 Apr, [facility] [place] [facility] [address] [id number] [place] 7879 Apr, [facility] [place] [facility] [address] [id number], [place] [address]- 8458 30 Mar, 2012 [facility] [place] [facility] [address] [id number] [place] [address]- 6956 30 Mar, 2012 [facility] [place] [facility] [address] [id number], [place] [address]- 1743 Mar, 2012 [facility] [place] [facility] [address] [id number] [place] [address]- 8584 Mar, 2012 [facility] [place] [facility] [address] [id number], [place] [address]- 6910 30 Mar, 2012 [facility] [place] [facility] [address] [id number] [place] [address]- 3116 Mar, 2012 [facility] [place] [facility] [address] [id number], [place] [address]- 3653 Mar, 2012 [facility] [place] [facility] [address] [id number], [place] [address]- 9603 Mar, 2012 [facility] [place] [facility] [address] [id number], [place] [address]- 0329 Mar, 2012 [facility] [place] [facility] [address] [id number], [place] [address]- 5915 Mar, 2012 [facility] [place] [facility] [address] [id number], [place] [address]- 0687 Mar, 2012 [facility] [place] [facility] [address] [id number], [place] [address]- 0120 Mar, 2012 [facility] [place] [facility] [address] [id number], [place] [address]- 4287 Mar, 2012 [facility] [place] [facility] [address] [id number], [place] [address]- 3183 Mar, 2012 [facility] [place] [facility] [address] [id number], [place] [address]- 8426 Mar, 2012 [facility] [place] [facility] [address] [id number], [place] [address]- 7145 Mar, 2012 [facility] [place] [facility] [address] [id number] [place] [address]- 0997 17 Mar, 2012 [facility] [place] [facility] [address] [id number] [place] [address]- 4313 17 Mar, 2012 [facility] [place] [facility] [address] [id number] [place] [address]- 3050 15 Mar, 2012 [facility] [place] [facility] [address] [id number] [place] [address]- 7380 15 Mar, 2012 [facility] [place] [facility] [address] [id number] [place] [address]- 6387 14 Mar, 2012 [facility] [place] [facility] [address] [id number] [place] [address]- 7943 14 Mar, 2012 [facility] [place] [facility] [address] [id number] [place] [address]- 4339 14 Mar, 2012 [facility] [place] [facility] [address] [id number] [place] [address]- 9004 14 Mar, 2012 [facility] [place] [facility] [address] [id number] [place] [address]- 3226 12 Mar, 2012 [facility] [place] [facility] [address] [id number] [place] [address]- 4944 11 Mar, 2012 [facility] [place] [facility] [address] [id number] [place] [address]- 7494 11 Mar, 2012 [facility] [place] [facility] [address] [id number] [place] [address]- 5396 10 Mar, 2012 [facility] [place] [facility] [address] [id number] [place] [address]- 8620 10 Mar, 2012 [facility] [place] [facility] [address] [id number] [place] [address]- 5110 10 Mar, 2012 [facility] [place] [facility] [address] [id number] [place] [address] 10 Mar, 2012 [facility] [place] [facility] [address] [id number] [place] [address] Mar, [facility] [place] [facility] [address] [id number] [place] [address] Mar, [facility] [place] [facility] [address] [id number] [place] [address] Feb, [facility] [place] [facility] [address] [id number] [place] [address] Feb, [facility] [place] [facility] [address] [id number] [place] [address] Feb, [facility] [place] [facility] [address] [id number] [place] [address] Feb, [facility] [place] [facility] [address] [id number] [place] [address] Jan, [facility] [place] [facility] [address] [id number] [place] [address] Jan, [facility] [place] [facility] [address] [id number] [place] [address] Jan, [facility] [place] [facility] [address] [id number] [place] [address] Jan, [facility] [place] [facility] [address] [id number] [place] [address] Jan, [facility] [place] [facility] [address] [id number] [place] [address] Jan, [facility] [place] [facility] [address] [id number] [place] [address] Dec, [facility] [place] [facility] [address] [id number] [place] [address] Dec, [facility] [place] [facility] [address] [id number] [place] [address] Dec, [facility] [place] [facility] [address] [id number] [place] [address] Dec, [facility] [place] [facility] [address] [id number] [place] [address] Dec, [facility] [address] [id number] [place] [address] Dec, [facility] [address] [id number] [place] [address] Dec, [facility] [address] [id number] [place] [address]265 Dec, [facility] [address] [id number] [place] [address] Dec, [facility] [address] [id number] [place] [address] Dec, [facility] [address] [id number] [place] [address] Dec, [facility] [address] [id number] [place] [address] October, [facility] [address] [id number] [place] [address] October, [facility] [address] [id number] [place] [address] October, [facility] [address] [id number] [place] [address] October, [facility] [address] [id number] [place] [address] Sep, [facility] [place] [facility] [address] [id number] [place] [address] Sep, [facility] [address] [id number] [place] [address] Sep, [facility] [address] [id number] [place] [address] Sep, [facility] [address] [id number] [place] [address] Sep, [facility] [place] [address] [facility] [id number], [place] [address] 16 Sep, 2012 [facility] [place] [address] [facility] [id number], [place] [address] 15 Sep, 2012 [facility] [place] [address] [facility] [id number], [place] [address] 14 Sep, 2012 [facility] [place] [address] [facility] [id number], [place] [address] 13 Sep, 2012 [facility] [place] [address] [facility] [id number], [place] [address] 12 Sep, 2012 [facility] [place] [address] [facility] [id number], [place] [address] Sep, IMMUNIZATIONS No Known Immunizations SOCIAL HISTORY Never Assessed REASON FOR VISIT Fentanyl due 12/19 PLAN OF CARE VITAL SIGNS MEDICATIONS Medication Instructions Dosage Frequency Start Date End Date Duration Status Fentanyl 100 MCG/HR Transdermal every 72 hours 1 Patch Dec, 28 days Active RESULTS No Results [...] problems 09/2015 Hospitalization History Acute dyspnea, muscle cramps--[facility] 03/04/16 Hospitalization History RLE Cellulitis, Hypokalemia, anemia-[facility] 09/29/15 Hospitalization History Lower edema 09/2016 Hospitalization History Received stitches ER 10/2016
--- OUTSIDE RECORDS SUMMARY | 2018-03-19 23:56 | XMS REPORT ---
Author Author JAN HERNANDEZ [facility] Address [address] [place] [address] Care Team Providers Care Governor Assembler Name Role Phone JAN HERNANDEZ Unavailable PROBLEMS Type Condition ICD9-CM Code CYD00-VV Code Onset Dates Condition Status SNOMED Code Problem Prediabetes R73.09 Active 0518178 Problem Arthritis M19.90 Active 3984384 Problem Hypokalemia E87.6 Active 58600129 Problem Coronary artery disease involving [place] coronary artery of [place] heart without angina pectoris I25.10 Active 6775307559105 Problem Skin cancer of face C44.300 Active 399703460 Problem Morbid (severe) obesity due to excess calories E66.01 Active 213201464 Problem Body mass index (BMI) of 45.0-49.9 in adult Z68.42 Active 306112263 Problem Venous insufficiency I87.2 Active 96936070 Problem 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 Active 906347553 Problem Anemia D64.9 Active 950947636 Problem Cor pulmonale I27.81 Active 12772238 Problem Back pain M54.9 Active 003735282 Problem Restrictive lung disease J98.4 Active 60082170 Problem Hypothyroidism E03.9 Active 91466737 ALLERGIES No Information ENCOUNTERS Encounter Location Date Diagnosis [facility] [id number], [place] [address] Jan, [facility] [id number], [place] [address] 0986 Jan, [facility] [id number], [place] [address] 86[address] Jan, Back pain M54.9 [facility] [id number] [address] Jan, Arthritis M19.90 [facility] [id number] [place] [address] 93959- 6389 Jan, Back pain M54.9 [facility] [id number] [place] [address] 50355- 7417 Jan, [facility] [id number] [place] [address] 44709- 2030 Jan, Back pain M54.9 [facility] [id number] [place] [address] 56024- 6642 Dec, Ingrowing nail with infection L60.0 and Onychomycosis B35.1 [facility] [id number] [place] [address] 44236- 1570 Dec, Arthritis M19.90 [facility] [id number] [place] [address] 60185- 4297 Dec, Ingrowing nail L60.0 [facility] [id number] [place] [address] 74344- 5668 Dec, Back pain M54.9 [facility] [id number] [place] [address] 51161 -8465 Dec, [facility] [id number] [place] [address] 88742- 9695 Dec, Back pain M54.9 [facility] [id number] [place] [address] 09708- 7054 Nov, Arthritis M19.90 [facility] [id number] [place] [address] 57906- 6777 Nov, [facility] [id number] [place] [address] 26515- 5274 Nov, Arthritis M19.90 ; Anemia D64.9 ; Restrictive lung disease J98.4 ; Weakness R53.1 and BMI 50.0-59.9, adult Z68.43 [facility] [id number] [place] [address] 76853- 2179 Nov, Arthritis M19.90 [facility] [id number] [place] [address] 79298- 4768 Nov, Back pain M54.9 [facility] [id number] [place] [address] 00981- 7149 October, Back pain M54.9 [facility] [id number] [place] [address] 80131- 2491 October, Back pain M54.9 [facility] [id number] [place] [address] 51462- 3375 Sep, Back pain M54.9 [facility] [id number] [place] [address] 80180- 1186 Sep, Back pain M54.9 [facility] [id number] [place] [address] 73963 -7325 Sep, [facility] [id number] [place] [address] 19045 -6480 Sep, [facility] [id number] [place] [address] 30988 -8072 Sep, Swelling of right lower extremity M79.89 and Cellulitis of right lower extremity L03.115 [address] [place] [id number] [place] [address] 89622- 8596 27 Aug, 2017 Back pain M54.9 [facility] [id number] [place] [address] 58294- 9443 15 Aug, 2017 Back pain M54.9 [place] [id number] [place] [address] 16744- 4706 Aug, [facility] [id number] [place] [address] 93398- 7116 Aug, Cellulitis of right lower extremity L03.115 ; Ventral hernia without obstruction or gangrene K43.9 and BMI 50.0-59.9, adult Z68.43 [facility] [id number] [place] [address] 98096- 8639 28 Jul, 2017 Back pain M54.9 [facility] [id number] [place] [address] 41548- 6943 28 Jul, 2017 senior living (current) 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 Z79.891 ; Arthritis M19.90 ; Back pain M54.9 ; Prediabetes R73.09 ; Hypothyroidism E03.9 ; Coronary artery disease involving [place] coronary artery of [place] heart without angina pectoris I25.10 and Anemia D64.9 [facility] [id number] [place] [address] 62644- 7345 27 Jul, 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 ; Back pain M54.9 ; Arthritis M19.90 ; Prediabetes R73.09 ; Hypothyroidism E03.9 ; Coronary artery disease involving [place] coronary artery of [place] heart without angina pectoris I25.10 ; Anemia D64.9 and BMI 45.0-49.9, adult Z68.42 [facility] [id number] [place] [address] 34616- 2467 15 Jul, 2017 Back pain M54.9 [facility] [id number] [place] [address] 35359- 0125 05 Jul, 2017 Back pain M54.9 [facility] [id number] [place] [address] 95658- 8800 Jun, Back pain M54.9 [facility] [id number] [place] [address] 28437- 0517 Jun, Back pain M54.9 [facility] [id number] [place] [address] 66690 -8971 May, Skin cancer of face C44.300 and BMI 45.0-49.9, adult Z68.42 [facility] [id number] [place] [address] 07659- 5596 May, [facility] [id number] [place] [address] 57693- 0447 May, Back pain M54.9 [facility] [id number] [place] [address] 03924- 1266 May, Back pain M54.9 [facility] [id number] [place] [address] 31701 2546 May, Back pain M54.9 [facility] [address] [address]32 2549 Apr, Back pain M54.9 [facility] [address] 65226- 3527 Apr, Back pain M54.9 [facility] [address] 02943- 9725 Mar, Back pain M54.9 [facility] [address] 74100- 4225 Mar, Anemia D64.9 ; Encounter for immunization Z23 ; Arthritis M19.90 and Right inguinal hernia K40.90 [facility] [id number] [place] [address] 95543- 8117 Mar, Back pain M54.9 [facility] [id number] [place] [address] 54028- 6402 Feb, Back pain M54.9 [facility] [id number] [place] [address] 99631 254 Feb, Back pain M54.9 [facility] [id number] [place] [address] 87650- 0062 Jan, Back pain M54.9 [facility] [id number] [place] [address] 05636- 2544 Jan, Back pain M54.9 [facility] [id number] [place] [address] 33549- 2540 Jan, [facility] [id number], [place] [address] 2546 Jan, Back pain M54.9 [facility] [id number] [place] [address] 03286 2546 Dec, Back pain M54.9 [facility] [id number] [place] [address] 30247 2546 Dec, Back pain M54.9 [facility] [id number] [place] [address] 41655 2546 Dec, [facility] [id number] [place] [address] 39311 2546 Nov, Hypokalemia E87.6 [facility] [id number] [place] [address] 39154 2546 Nov, Back pain M54.9 [facility] [id number] [place] [address] 09998 2546 Nov, [facility] [id number] [place] [address] 07357 2546 Nov, Arthritis M19.90 [facility] [id number] [place] [address] 91721 2546 Nov, Back pain M54.9 [facility] [id number] [place] [address] 88628 2546 Nov, Generalized edema R60.1 [facility] [id number] [place] [address] 96701 2546 Nov, Back pain M54.9 [facility] [id number] [place] [address] 45374 2546 07 Nov, 2016 Pain in right knee M25.561 [facility] [id number] [place] [address] 67946 2546 05 Nov, 2016 Encounter for removal of sutures Z48.02 and Pain in right knee M25.561 [facility] [id number] [place] [address] 19998 -2551 Nov, Abrasion of right foot, subsequent encounter S90.811D [facility] [place] [id number] [place] [address] 53999 -3675 October, Toe abrasion, right, initial encounter S90.414A [place] [address] 25691- 9107 October, [address] [place] [address] 70441- 9301 October, Back pain M54.9 [address] [place] [address] 35960- 6799 October, Venous insufficiency I87.2 [place] [address] 79038- 4212 October, Pain in right knee M25.561 [place] [id number] [place] [address] 77294- 7347 Sep, Back pain M54.9 [place] [id number] [place] [address] 71949- 5114 Sep, Venous insufficiency I87.2 [facility] [address] [id number] Sep, [facility] [id number] [place] [address] 80739 -1202 Sep, Leg edema, right R60.0 and Cellulitis of right lower extremity L03.115 [address] [place] [address] 31095- 6775 14 Sep, 2016 Pedal edema R60.0 [place] [id number] [place] [address] 11998- 1416 04 Sep, 2016 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 ; Pain in right knee M25.561 and Arthritis M19.90 [facility] [id number] [place] [address] 24567- 6923 Aug, Back pain M54.9 [facility] [id number] [place] [address] 28424- 2592 Aug, Back pain M54.9 [facility] [id number] [place] [address] 49987- 9477 Aug, [facility] [address] 01065- 0282 Aug, Type 2 diabetes mellitus without complication E11.9 ; Restrictive lung disease J98.4 ; Arthritis M19.90 ; Back pain M54.9 ; Body mass index (BMI) of 45.0-49.9 in adult Z68.42 and Morbid (severe) obesity due to excess calories E66.01 [facility] [id number] [place] [address] 41062- 2233 Aug, Back pain M54.9 [facility] [id number] [place] [address] 90447- 3443 Aug, Back pain M54.9 [facility] [id number] [place] [address] 42557- 9072 Jul, [facility] [id number] [place] [address] 53231- 2972 Jul, Back pain M54.9 [facility] [id number] [place] [address] 24776- 0044 Jul, Back pain M54.9 [facility] [id number] [place] [address] 98388- 6153 Jun, Back pain M54.9 [facility] [id number] [place] [address] 15872- 6566 Jun, Back pain M54.9 [facility] [id number] [place] [address] 03522- 4461 May, Back pain M54.9 [facility] [id number] [place] [address] 54624- 9385 16 May, 2016 Back pain M54.9 [facility] [id number] [place] [address] 57768- 2692 May, Back pain M54.9 [facility] [id number] [place] [address] 19069- 8959 May, Back pain M54.9 [facility] [id number] [place] [address] 24907- 1699 09 May, 2016 [facility] [address] 76771- 7433 05 May, 2016 Back pain M54.9 and Pain in right knee M25.561 [facility] [id number] [place] [address] 63438- 8177 Apr, [facility] [id number] [place] [address] 80505- 1844 Apr, Type 2 diabetes mellitus without complication E11.9 ; Pain in right knee M25.561 and Pain in left knee M25.562 [facility] [id number] [place] [address] 55750- 6608 Mar, [facility] [id number] [place] [address] 23562- 3189 Mar, [facility] [id number] [place] [address] 04145- 5090 Mar, [facility] [id number] [place] [address] 92267- 0042 18 Mar, 2016 Restrictive lung disease J98.4 ; Anemia D64.9 and Cor pulmonale I27.81 [facility] [id number] [place] [address] 71638- 5921 17 Mar, 2016 [facility] [id number] [place] [address] 66098- 8851 14 Mar, 2016 [facility] [address] [facility] [id number] [address]- 9007 03 Mar, 2016 [facility] [id number] [place] [address] 20593- 4039 30 Feb, 2016 [facility] [id number] [place] [address]- 5903 29 Feb, 2016 [facility] [id number] [place] [address] 50454- 4761 28 Feb, 2016 [facility] [id number] [place] [address] 67856- 9551 27 Feb, 2016 Restrictive lung disease J98.4 [facility] [id number] [place] [address] 38376- 9782 23 Feb, 2016 [facility] [id number] [place] [address] 83063 -4765 Feb, [facility] [id number] [address]- 3582 16 Feb, 2016 [facility] [id number] [place] [address] 10549- 0380 Jan, [facility] [id number] [address]- 3889 Jan, [facility] [id number] [address]- 9792 Jan, [facility] [id number] [address]- 3392 Jan, [facility] [id number] [place] [address] 85933- 6947 Jan, Restrictive lung disease J98.4 ; Anemia D64.9 and Cor pulmonale I27.81 [facility] [id number] [address]- 1707 Dec, [facility] [id number] [place] [address] 57419- 3498 12 Dec, 2015 [facility] [id number] [place] [address] 51061- 6837 14 Nov, 2015 Arthritis M19.90 and Hypokalemia E87.6 [facility] [id number] [place] [address] 78788- 9796 10 Nov, 2015 Back pain M54.9 [facility] [id number] [place] [address] 63772- 7786 October, Back pain M54.9 [facility] [id number] [place] [address] 13209- 8066 October, Back pain M54.9 [facility] [id number] [place] [address] 46074- 3566 Sep, Scabies exposure Z20.89 [facility] [id number] [place] [address] 84710- 9209 Sep, Restrictive lung disease J98.4 [facility] [id number] [place] [address] 18502- 2669 Sep, Back pain M54.9 [facility] [id number] [place] [address] 48249- 7559 Sep, Restrictive lung disease J98.4 [facility] [id number] [place] [address] 45432 2546 Aug, [facility] [id number] [place] [address] 50525- 2549 Aug, [facility] [id number] [place] [address] 24563- 2386 Aug, [facility] [id number] [place] [address] [id number]- 2543 Aug, [facility] [id number] [place] [address] 80198- 8539 Aug, Back pain M54.9 [facility] [id number] [place] [address] 59585- 8802 Jul, Anemia D64.9 and Prediabetes R73.09 [facility] [id number] [place] [address] 34784- 4392 Jul, Back pain M54.9 [facility] [address] 52748- [id number] 17 Jul, 2015 Back pain M54.9 [facility] [address] 05440- 6506 Jul, [facility] [address] 74481- 5295 05 Jul, 2015 Bronchitis J40 and Anemia D64.9 [facility] [address] 88383- 2537 Jun, [facility] [address] 04617- 4560 Jun, [facility] [address] 24607- 2040 Jun, Bronchitis J40 and Anemia D64.9 [facility] [id number] [place] [address] 74292- 8258 Jun, [facility] [id number] [place] [address] 42543- 2091 Jun, Back pain M54.9 [facility] [id number] [place] [address] 04256- 9317 Jun, Anemia D64.9 [facility] [address] 10039- 0874 Jun, Restrictive lung disease J98.4 ; Anemia D64.9 ; Hypothyroidism E03.9 ; Cor pulmonale I27.81 and Back pain M54.9 [facility] [address] 72632- 6705 May, [facility] [id number] [place] [address] 05203- 2584 Apr, Anemia D64.9 ; Encounter for immunization Z23 and Restrictive lung disease J98.4 [facility] [id number] [place] [address] 38422- 9934 Apr, [facility] [id number] [place] [address] 81814- 5883 Mar, [facility] [id number] [place] [address] 77529- 3635 Mar, Iron deficiency anemia D50.9 [facility] [id number] [place] [address] 39090- 5896 Mar, [facility] [id number] [place] [address] 78340- 5312 Mar, [facility] [id number] [place] [address] 64075- 2215 Mar, Anemia D64.9 [facility] [id number] [place] [address] 12016- 6619 Mar, [facility] [id number] [place] [address] 77844- 3640 Mar, Anemia D64.9 [facility] [id number] [place] [address] 74077- 3183 Mar, Restrictive lung disease J98.4 and Anemia D64.9 [facility] [id number] [place] [address] 32892- 9302 Mar, [facility] [id number] [place] [address] 96360- 1356 Mar, Anemia D64.9 [facility] [id number] [place] [address] 11844- 5887 Mar, Anemia D64.9 [facility] [id number] [place] [address] 82834- 3880 Mar, [facility] [facility] [id number] [place] [address] 56156- 2579 Mar, Diabetes mellitus E11.9 ; Bronchitis J40 and Anemia D64.9 [facility] [id number] [place] [address] 87450- 4040 Feb, [facility] [address] [address]64- 8431 Feb, [facility] [id number] [place] [address] 58908- 5006 Feb, [facility] [address] 77662- 1522 Feb, [facility] [id number] [place] [address] 63958- 6091 Jan, [facility] [id number] [place] [address] 20983- 3580 Jan, [facility] [id number] [place] [address] 34864- 5417 Dec, Venous insufficiency 459.81 [facility] [id number] [place] [address] 18032- 0478 Dec, [facility] [id number] [place] [address] 20423- 9969 Dec, [facility] [id number] [place] [address] 04193- 4211 Dec, Coronary atherosclerosis of unspecified type of vessel, [place] or graft 414.00 ; Unspecified anemia 285.9 and Generalized osteoarthrosis , unspecified site 715.00 [facility] [id number] [place] [address] 85221- 9141 Nov, [facility] [id number] [place] [address] 57170- 5102 Nov, [facility] [address] [place] [address] 2536 Nov, [facility] [address] [id number], [place] [address] 2408 October, [facility] [id number], [place] [address] 9919 October, Acute bronchitis 466.0 and Shortness of breath 786.05 [facility] [id number], [place] [address] 0044 Sep, [facility] [address] [facility] [id number] [place] [address]- 9703 Sep, [facility] [id number], [place] [address]- 5868 Aug, [facility] [id number], [place] [address]- 6026 Aug, [facility] [address] [id number], [place] [address]- 0071 Jul, [facility] [address] [id number] [address]- 8878 Jul, [facility] [id number], [place] [address]- 9421 Jul, [facility] [id number], [place] [address]- 8275 Jul, [facility] [address] [id number], [place] [address]- 0727 Jun, [facility] [place] [facility] [address] [id number] [place] [address]- 0705 Jun, [facility] [address] [id number], [place] [address]- 9036 Jun, [facility] [place] [facility] [address] [id number] 5751 Jun, [facility] [place] [facility] [id number] [place] [address]- 9923 Jun, [facility] [place] [facility] [address] [id number] [place] [address]- 2330 Jun, [facility] [place] [facility] [address] [id number] [place] [address]- 6111 May, [facility] [place] [facility] [address] [id number] [place] [address]- 9493 May, [facility] [place] [facility] [address] [id number] [place] [address]- 3576 May, [facility] [place] [facility] [address] [id number] [place] [address]- 6734 May, [facility] [place] [facility] [address] [id number] [place] [address]- 5061 Apr, [facility] [place] [facility] [address] [id number] [place] [address]- 6437 Apr, [facility] [place] [facility] [address] [id number] [place] [address]- 2977 Apr, [facility] [place] [facility] [address] [id number] [place] [address]- 5419 Apr, [facility] [place] [facility] [address] [facility] [id number] [place] [address]- 7755 Apr, [facility] [place] [facility] [address] [id number] [place] [address]- 2944 Apr, [facility] [place] [facility] [address] [id number] [place] [address]- 5135 Mar, [facility] [place] [facility] [address] [id number] [place] [address]- 5318 Mar, [facility] [place] [facility] [address] [id number] [place] [address]- 6134 Mar, [facility] [place] [facility] [address] [id number] [place] [address]- 5323 Mar, [facility] [place] [facility] [address] [id number] [place] [address]- 0252 Mar, [facility] [place] [facility] [address] [id number] [place] [address]- 0855 Mar, [facility] [place] [facility] [address] [id number] [place] [address]- 8305 Mar, [facility] [place] [facility] [address] [id number] [place] [address]- 4204 Mar, [facility] [place] [facility] [address] [id number] [place] [address]- 3784 Feb, [facility] [place] [facility] [address] [id number] [place] [address]- 7262 Feb, [facility] [place] [facility] [address] [id number] [place] [address]- 9489 Jan, [facility] [place] [facility] [address] [id number] [place] [address]- 7410 Jan, [facility] [place] [facility] [address] [id number] [place] [address]- 4781 Jan, [facility] [place] [facility] [address] [id number] [place] [address]- 9080 Jan, [facility] [place] [facility] [address] [id number] [place] [address]- 8019 Jan, [facility] [place] [facility] [address] [id number] [place] [address]- 9125 Jan, [facility] [place] [facility] [address] [id number] [place] [address]- 8336 Dec, [facility] [place] [facility] [address] [id number] [place] [address]- 3644 Dec, [facility] [place] [facility] [address] [id number] [place] [address]- 7173 Dec, [facility] [place] [facility] [address] [id number] [place] [address]- 5238 Dec, [facility] [place] [facility] [address] [id number] [place] [address]- 2979 Nov, [facility] [place] [facility] [address] [id number] [place] [address]- 4616 Nov, [facility] [place] [facility] [address] [id number] [place] [address]- 3706 Nov, [facility] [place] [facility] [address] [id number] [place] [address]- 0736 Nov, [facility] [place] [facility] [address] [id number] [place] [address]- 5419 Nov, [facility] [place] [facility] [address] [id number] [place] [address]- 8566 Nov, [facility] [place] [facility] [address] [id number] [place] [address]- 8857 Nov, [facility] [place] [facility] [address] [id number] [place] [address]- 9617 Nov, [facility] [place] [facility] [address] [id number] [place] [address]- 1172 Nov, [facility] [place] [facility] [address] [id number] [place] [address]- 3220 Nov, [facility] [place] [facility] [address] [id number] [place] [address]- 0706 Nov, [facility] [place] [facility] [address] [id number] [place] [address]- 3154 Nov, [facility] [place] [facility] [address] [id number] [place] [address]- 5669 October, [facility] [place] [facility] [address] [id number] [place] [address]- 4873 October, [facility] [place] [facility] [address] [id number] [place] [address]- 8948 October, [facility] [place] [facility] [address] [id number] [place] [address]- 8061 October, [facility] [address] [id number] [place] [address]- 9318 October, [facility] [address] [id number] [place] [address]- 6185 October, [facility] [address] [id number] [place] [address]- 1953 October, [facility] [address] [id number] [place] [address]- 8692 October, [facility] [address] [id number] [place] [address]- 0270 October, [facility] [address] [id number] [place] [address]- 5984 Sep, [facility] [address] [id number] [place] [address]- 0885 Sep, [facility] [address] [id number] [place] [address]- 1229 Sep, [facility] [address] [id number] [place] [address]- 5521 Sep, [facility] [address] [id number] [place] [address]- 1827 Sep, [facility] [address] [id number] [place] [address]- 4284 Sep, [facility] [address] [id number] [place] [address]- 4944 Aug, [facility] [place] [facility] [address] [id number] [place] [address]- 3935 Aug, [facility] [place] [facility] [address] [id number] [place] [address]- 7309 Aug, [facility] [place] [facility] [address] [id number] [place] [address]- 8516 Aug, [facility] [place] [facility] [address] [id number] [place] [address]- 2265 Aug, [facility] [place] [facility] [address] [id number] [place] [address]- 8118 Aug, [facility] [place] [facility] [address] [id number] [place] [address]- 1011 Aug, [facility] [place] [facility] [address] [id number] [place] [address]- 6149 Aug, [facility] [place] [facility] [address] [id number] [place] [address]- 9424 Aug, [facility] [place] [facility] [address] [id number] [place] [address]- 0843 Aug, [facility] [place] [facility] [address] [id number] [place] [address]- 4119 Jul, [facility] [place] [facility] [address] [id number] [place] [address]- 3843 Jul, [facility] [place] [facility] [address] [id number] [place] [address]- 6512 Jun, [facility] [place] [facility] [address] [id number] [place] [address]- 5122 Jun, [facility] [place] [facility] [address] [id number] [place] [address]- 2965 Jun, [facility] [place] [facility] [address] [id number] [address]- 3299 Jun, [facility] [place] [facility] [address] [id number] [place] [address]- 0394 Jun, [facility] [place] [facility] [address] [id number] [place] [address]- 7769 Jun, [facility] [place] [facility] [address] [id number] [place] [address]- 8862 Jun, [facility] [place] [facility] [address] [id number] [address]- 0803 Jun, [facility] [address] [id number] [place] [address]- 3807 May, [facility] [place] [facility] [address] [facility] [id number] [place] [address]- 9285 May, [facility] [address] [facility] [id number] [place] [address]- 9291 May, [facility] [place] [facility] [address] [id number] [place] [address]- 8593 May, [facility] [address] [facility] [id number] [place] [address]- 6053 May, [facility] [place] [facility] [address] [facility] [id number] [place] [address]- 3951 May, [facility] [address] [id number] [address]- 8954 May, [facility] [place] [facility] [address] [id number] [place] [address]- 5647 May, [facility] [address] [id number] [address]- 8078 May, [facility] [place] [facility] [address] [facility] [id number] [place] [address]- 6301 Apr, [facility] [place] [facility] [address] [id number] [place] [address]- 5659 Apr, [facility] [place] [facility] [address] [id number], [place] [address]- 6586 Apr, [facility] [place] [facility] [address] [id number] [place] [address]- 4039 Apr, [facility] [place] [facility] [address] [facility] [id number] [place] [address]- 9547 Mar, [facility] [place] [facility] [address] [facility] [id number] [place] [address]- 3746 Mar, [facility] [place] [facility] [address] [id number] [place] [address]- 8618 30 Mar, 2012 [facility] [place] [facility] [address] [id number] [place] [address]- 8514 30 Mar, 2012 [facility] [place] [facility] [address] [id number] [place] [address]- 0377 30 Mar, 2012 [facility] [place] [facility] [address] [id number] [place] [address]- 7905 30 Mar, 2012 [facility] [place] [facility] [address] [id number] [place] [address]- 7898 29 Mar, 2012 [facility] [place] [facility] [address] [id number] [place] [address]- 0729 29 Mar, 2012 [facility] [place] [facility] [address] [id number] [place] [address]- 1588 Mar, 2012 [facility] [place] [facility] [address] [id number] [place] [address]- 8378 Mar, 2012 [facility] [place] [facility] [address] [id number] [place] [address]- 2428 18 Mar, 2012 [facility] [place] [facility] [address] [id number] [place] [address]- 2954 18 Mar, 2012 [facility] [place] [facility] [address] [id number] [place] [address]- 6382 18 Mar, 2012 [facility] [place] [facility] [address] [id number] [place] [address]- 5085 18 Mar, 2012 [facility] [place] [facility] [address] [id number] [place] [address]- 7112 18 Mar, 2012 [facility] [place] [facility] [address] [id number] [place] [address]- 6157 18 Mar, 2012 [facility] [place] [facility] [address] [id number] [place] [address]- 2370 17 Mar, 2012 [facility] [place] [facility] [address] [id number] [place] [address]- 3504 17 Mar, 2013 [facility] [place] [facility] [address] [id number] [place] [address]- 3111 15 Mar, 2012 [facility] [place] [facility] [address] [id number] [place] [address]- 0151 15 Mar, 2013 [facility] [place] [facility] [address] [id number] [place] [address]- 2073 14 Mar, 2013 [facility] [place] [facility] [address] [id number] [place] [address]- 1025 14 Mar, 2013 [facility] [place] [facility] [address] [id number] [place] [address]- 5362 14 Mar, 2013 [facility] [place] [facility] [address] [id number] [place] [address]- 5282 14 Mar, 2013 [facility] [place] [facility] [address] [id number] [place] [address]- 4078 12 Mar, 2013 [facility] [place] [facility] [address] [id number], [place] [address]- 2645 11 Mar, 2013 [facility] [place] [facility] [address] [id number], [place] [address]- 4370 11 Mar, 2013 [facility] [place] [facility] [address] [id number], [place] [address]- 6852 10 Mar, 2013 [facility] [place] [facility] [address] [id number], [place] [address]- 0635 10 Mar, 2012 [facility] [place] [facility] [address] [id number], [place] [address]- 4603 10 Mar, 2012 [facility] [place] [facility] [address] [id number], [place] [address]- 4716 10 Mar, 2013 [facility] [place] [facility] [address] [id number], [place] [address]- 1637 04 Mar, 2013 [facility] [place] [facility] [address] [id number], [place] [address]- 8509 Mar, [facility] [place] [facility] [address] [id number] [place] [address]- 1679 27 Feb, 2013 [facility] [place] [facility] [address] [id number] [place] [address]- 3876 Feb, [facility] [place] [facility] [address] [id number] [place] [address] 2546 Feb, [facility] [place] [facility] [address] [id number] [place] [address] 2546 Feb, [facility] [place] [facility] [address] [id number] [place] [address] 2549 Jan, [facility] [place] [facility] [address] [id number] [place] [address]- 7338 Jan, [facility] [place] [facility] [address] [id number] [place] [address]- 6902 Jan, [facility] [place] [facility] [address] [id number] [place] [address]- 7660 Jan, [facility] [place] [facility] [address] [id number] [place] [address]- 3072 Jan, [facility] [place] [facility] [address] [id number] [place] [address]- 7617 Jan, [facility] [place] [facility] [address] [id number] [place] [address]- 5854 Dec, [facility] [place] [facility] [address] [id number] [place] [address]- 6890 Dec, [facility] [place] [facility] [address] [id number] [place] [address]- 3912 Dec, [facility] [place] [facility] [address] [id number] [place] [address]- 0240 Dec, [facility] [place] [facility] [address] [id number] [place] [address]- 3124 Dec, [facility] [place] [facility] [address] [id number] [place] [address]- 2011 Dec, [facility] [place] [facility] [address] [id number] [place] [address]- 6868 Dec, [facility] [address] [id number] [place] [address]- 6092 Dec, [facility] [address] [id number] [place] [address]- 2824 Dec, [facility] [address] [id number] [place] [address]- 5444 Dec, [facility] [address] [id number] [place] [address]- [address] Dec, [facility] [address] [id number] [place] [address] October, [facility] [address] [id number] [place] [address] October, [facility] [address] [id number] [place] [address] October, [facility] [address] [id number] [place] [address] October, [facility] [address] [id number] [place] [address] Sep, [facility] [address] [id number] [place] [address] Sep, [facility] [address] [id number] [place] [address] Sep, [facility] [address] [id number] [place] [address] Sep, [facility] [place] [facility] [address] [id number] [place] [address] Sep, [facility] [address] [id number] [place] [address] 16 Sep, 2012 [facility] [address] [id number] [place] [address] 15 Sep, 2012 [facility] [address] [facility] [id number] [place] [address] 14 Sep, 2012 [facility] [address] [facility] [id number], [place] [address] Sep, [facility] [address] [facility] [id number], [place] [address] Sep, [facility] [address] [facility] [id number], [place] [address] Sep, IMMUNIZATIONS No Known Immunizations SOCIAL HISTORY Never Assessed REASON FOR VISIT wheelchair PLAN OF CARE VITAL SIGNS MEDICATIONS Medication Instructions Dosage Frequency Start Date End Date Duration Status Wheelchair - use heavy duty wheel chair [...] problems 09/2015 Hospitalization History Acute dyspnea, muscle cramps--H 03/04/16 Hospitalization History RLE Cellulitis, Hypokalemia, anemia-[facility] 09/29/15 Hospitalization History Lower edema 09/2016 Hospitalization History Received stitches ER 10/2016
--- OUTSIDE RECORDS SUMMARY | 2018-03-19 23:57 | XMS REPORT ---
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 Name Role Phone JAN HERNANDEZ Unavailable PROBLEMS Type Condition ICD9-CM Code TCW02-AQ Code Onset Dates Condition Status SNOMED Code Problem Prediabetes R73.09 Active 8082508 Problem Arthritis M19.90 Active 8433700 Problem Hypokalemia E87.6 Active 22168592 Problem Coronary artery disease involving elim ira coronary artery of elim ira heart without angina pectoris I25.10 Active 0799162076122 Problem Skin cancer of face C44.300 Active 773323907 Problem Morbid (severe) obesity due to excess calories E66.01 Active 245237694 Problem Body mass index (BMI) of 45.0-49.9 in adult Z68.42 Active 177125815 Problem Venous insufficiency I87.2 Active 12576598 Problem 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 Active 051001557 Problem Anemia D64.9 Active 047109682 Problem Cor pulmonale I27.81 Active 21364670 Problem Back pain M54.9 Active 758328985 Problem Restrictive lung disease J98.4 Active 88113492 Problem Hypothyroidism E03.9 Active 32779466 ALLERGIES No Information ENCOUNTERS Encounter Location Date Diagnosis [facility] [id number], [place] [address] Jan, [facility] [id number] [address] 4[address] Jan, [facility] [address], [place] [address] 8[address] Jan, Back pain M54.9 [facility] [id number], [place] [address] 7807 Jan, Arthritis M19.90 [facility] [id number] [place] [address] 43875- 6269 Jan, Back pain M54.9 [facility] [id number] [place] [address] 47806- 7185 Jan, [facility] [id number] [place] [address] 17240- 9018 Jan, Back pain M54.9 [facility] [id number] [place] [address] 33719- 7533 Dec, Ingrowing nail with infection L60.0 and Onychomycosis B35.1 [facility] [id number] [place] [address] 48071- 9345 Dec, Arthritis M19.90 [facility] [id number] [place] [address] 69051- 8060 Dec, Ingrowing nail L60.0 [facility] [id number] [place] [address] 90464- 1447 Dec, Back pain M54.9 [facility] [id number] [place] [address] 94327 -2412 Dec, [facility] [id number] [place] [address] 28986- 7274 Dec, Back pain M54.9 [facility] [id number] [place] [address] 17382- 0945 Nov, Arthritis M19.90 [facility] [id number] [place] [address] 57742- 0769 Nov, [facility] [id number] [place] [address] 69632- 1380 Nov, Arthritis M19.90 ; Anemia D64.9 ; Restrictive lung disease J98.4 ; Weakness R53.1 and BMI 50.0-59.9, adult Z68.43 [facility] [id number] [place] [address] 24641- 7292 Nov, Arthritis M19.90 [facility] [id number] [place] [address] 78009- 6641 Nov, Back pain M54.9 [facility] [id number] [place] [address] 79246- 3392 October, Back pain M54.9 [facility] [id number] [place] [address] 81827- 5807 October, Back pain M54.9 [facility] [id number] [place] [address] 56539- 3883 Sep, Back pain M54.9 [facility] [id number] [place] [address] 78931- 0261 Sep, Back pain M54.9 [facility] [id number] [place] [address] 43483 -1802 Sep, [facility] [id number] [place] [address] 38121 -3411 Sep, [facility] [id number] [place] [address] 94969 -8631 Sep, Swelling of right lower extremity M79.89 and Cellulitis of right lower extremity L03.115 [place] [id number] [place] [address] 41016- 2766 27 Aug, 2017 Back pain M54.9 [facility] [id number] [place] [address] 31701- 6582 15 Aug, 2017 Back pain M54.9 [facility] [id number] [place] [address] 25575- 1310 Aug, [facility] [id number] [place] [address] 89069- 5228 Aug, Cellulitis of right lower extremity L03.115 ; Ventral hernia without obstruction or gangrene K43.9 and BMI 50.0-59.9, adult Z68.43 [facility] [address] [place] [address] 47806- 9491 28 Jul, 2017 Back pain M54.9 [facility] [id number] [place] [address] 57051- 2366 28 Jul, 2017 prison (current) 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 Z79.891 ; Arthritis M19.90 ; Back pain M54.9 ; Prediabetes R73.09 ; Hypothyroidism E03.9 ; Coronary artery disease involving elim ira coronary artery of elim ira heart without angina pectoris I25.10 and Anemia D64.9 [facility] [address] [place] [address] 67849- 8112 27 Jul, 2017 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 ; Back pain M54.9 ; Arthritis M19.90 ; Prediabetes R73.09 ; Hypothyroidism E03.9 ; Coronary artery disease involving elim ira coronary artery of elim ira heart without angina pectoris I25.10 ; Anemia D64.9 and BMI 45.0-49.9, adult Z68.42 [facility] [id number] [place] [address] 03529- 6484 15 Jul, 2017 Back pain M54.9 [facility] [id number] [place] [address] 65734- 5407 05 Jul, 2017 Back pain M54.9 [facility] [id number] [place] [address] 91093- 1529 Jun, Back pain M54.9 [facility] [id number] [place] [address] 19591- 8029 Jun, Back pain M54.9 [facility] [id number] [place] [address] 02035 -2474 May, Skin cancer of face C44.300 and BMI 45.0-49.9, adult Z68.42 [facility] [id number] [place] [address] 00902- 2727 May, [facility] [id number] [place] [address] 50019- 4915 May, Back pain M54.9 [facility] [id number] [place] [address] 07064- 3196 May, Back pain M54.9 [facility] [id number] [place] [address] 07600 2546 May, Back pain M54.9 [facility] [address] 88650 2541 Apr, Back pain M54.9 [facility] [address] 03817- 1862 Apr, Back pain M54.9 [facility] [address] 25423- 1947 Mar, Back pain M54.9 [facility] [address] 17023- 9695 Mar, Anemia D64.9 ; Encounter for immunization Z23 ; Arthritis M19.90 and Right inguinal hernia K40.90 [facility] [id number] [place] [address] 94968- 9290 Mar, Back pain M54.9 [facility] [id number] [place] [address] 14244- 0667 Feb, Back pain M54.9 [facility] [id number] [place] [address] 64180 2541 Feb, Back pain M54.9 [facility] [id number] [place] [address] 84169- 6717 Jan, Back pain M54.9 [facility] [id number] [place] [address] 46002- 2544 Jan, Back pain M54.9 [facility] [id number] [place] [address] 60691- 2548 Jan, [facility] [id number], [place] [address] 2546 Jan, Back pain M54.9 [facility] [id number] [place] [address] 77013 2546 Dec, Back pain M54.9 [facility] [id number] [place] [address] 43818 2546 Dec, Back pain M54.9 [facility] [id number] [place] [address] 90010 2546 Dec, [facility] [id number] [place] [address] 88800 2546 Nov, Hypokalemia E87.6 [facility] [id number] [place] [address] 99083 2546 Nov, Back pain M54.9 [facility] [id number] [place] [address] 49499 2546 Nov, [facility] [id number] [place] [address] 08461 2546 Nov, Arthritis M19.90 [facility] [id number] [place] [address] 93964 2546 Nov, Back pain M54.9 [facility] [address] [place] [address] 32915 2546 Nov, Generalized edema R60.1 [facility] [id number] [place] [address] 06848 2546 Nov, Back pain M54.9 [facility] [id number] [place] [address] 76007 2546 07 Nov, 2016 Pain in right knee M25.561 [facility] [id number] [place] [address] 45082 2546 05 Nov, 2016 Encounter for removal of sutures Z48.02 and Pain in right knee M25.561 [facility] [id number] [place] [address] 02203 -2224 Nov, Abrasion of right foot, subsequent encounter S90.811D [facility] [place] [id number] [place] [address] 24113 -7804 October, Toe abrasion, right, initial encounter S90.414A [place] [address] 20632- 5289 October, [place] [address] 83921- 2416 October, Back pain M54.9 [place] [address] 04854- 9740 October, Venous insufficiency I87.2 [place] [address] 85741- 0996 October, Pain in right knee M25.561 [facility] [id number] [place] [address] 09954- 8680 Sep, Back pain M54.9 [facility] [id number] [place] [address] 31794- 2359 Sep, Venous insufficiency I87.2 [facility] [address] [id number] Sep, [facility] [id number] [place] [address] 21445 -0799 Sep, Leg edema, right R60.0 and Cellulitis of right lower extremity L03.115 [place] [address] 24323- 5574 14 Sep, 2016 Pedal edema R60.0 [place] [facility] [id number] [place] [address] 54961- 0714 04 Sep, 2016 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 ; Pain in right knee M25.561 and Arthritis M19.90 [facility] [id number] [place] [address] 98533- 1105 Aug, Back pain M54.9 [facility] [id number] [place] [address] 38608- 5383 Aug, Back pain M54.9 [facility] [id number] [place] [address] 74963- 3914 Aug, [facility] [address] 33846- 2756 Aug, Type 2 diabetes mellitus without complication E11.9 ; Restrictive lung disease J98.4 ; Arthritis M19.90 ; Back pain M54.9 ; Body mass index (BMI) of 45.0-49.9 in adult Z68.42 and Morbid (severe) obesity due to excess calories E66.01 [facility] [id number] [place] [address] 77494- 3338 Aug, Back pain M54.9 [facility] [id number] [place] [address] 52662- 1258 Aug, Back pain M54.9 [facility] [id number] [place] [address] 63666- 9583 Jul, [facility] [id number] [place] [address] 84018- 6276 Jul, Back pain M54.9 [facility] [id number] [place] [address] 12697- 3401 Jul, Back pain M54.9 [facility] [id number] [place] [address] 94137- 9171 Jun, Back pain M54.9 [facility] [id number] [place] [address] 53842- 2401 Jun, Back pain M54.9 [facility] [id number] [place] [address] 47056- 0248 May, Back pain M54.9 [facility] [id number] [place] [address] 72083- 6089 16 May, 2016 Back pain M54.9 [facility] [id number] [place] [address] 31900- 3896 May, Back pain M54.9 [facility] [id number] [place] [address] 78794- 3058 May, Back pain M54.9 [facility] [id number] [place] [address] 97844- 1747 09 May, 2016 [facility] [address] 66091- 0591 05 May, 2016 Back pain M54.9 and Pain in right knee M25.561 [facility] [id number] [place] [address] 79323- 2654 Apr, [facility] [id number] [place] [address] 99017- 9603 Apr, Type 2 diabetes mellitus without complication E11.9 ; Pain in right knee M25.561 and Pain in left knee M25.562 [facility] [id number] [place] [address] 46421- 7426 Mar, [facility] [id number] [place] [address] 31203- 4889 Mar, [facility] [id number] [place] [address] 33987- 6968 Mar, [facility] [id number] [place] [address] 72923- 0309 18 Mar, 2016 Restrictive lung disease J98.4 ; Anemia D64.9 and Cor pulmonale I27.81 [facility] [id number] [place] [address] 57469- 1238 17 Mar, 2016 [facility] [id number] [place] [address] 12045- 9045 14 Mar, 2016 [facility] [address] [facility] [id number] [address]- 4000 03 Mar, 2016 [facility] [id number] [place] [address] 30323- 9378 30 Feb, 2016 [facility] [address] [place] [address]- 4330 29 Feb, 2016 [facility] [id number] [place] [address] 38763- 1018 28 Feb, 2016 [facility] [address] [place] [address] 88929- 4461 27 Feb, 2016 Restrictive lung disease J98.4 [facility] [id number] [place] [address] 16090- 4493 23 Feb, 2016 [facility] [id number] [place] [address] 34510 -4513 Feb, [facility] [address], [place] [address]- 4655 16 Feb, 2016 [facility] [id number] [place] [address] 47988- 5788 Jan, [facility] [address], [place] [address]- 5158 Jan, [facility] [address], [place] [address]- 2778 Jan, [facility] [address], [place] [address]- 3419 Jan, [facility] [address] [place] [address] 07527- 6216 Jan, Restrictive lung disease J98.4 ; Anemia D64.9 and Cor pulmonale I27.81 [facility] [address], [place] [address]- 7065 Dec, [facility] [id number] [place] [address] 50076- 3781 12 Dec, 2015 [facility] [id number] [place] [address] 55897- 4609 14 Nov, 2015 Arthritis M19.90 and Hypokalemia E87.6 [facility] [id number] [place] [address] 17532- 9766 10 Nov, 2015 Back pain M54.9 [facility] [id number] [place] [address] 80062- 6516 October, Back pain M54.9 [facility] [id number] [place] [address] 81273- 7616 October, Back pain M54.9 [facility] [id number] [place] [address] 86985- 7178 Sep, Scabies exposure Z20.89 [facility] [id number] [place] [address] 86552- 1367 Sep, Restrictive lung disease J98.4 [facility] [id number] [place] [address] 09665- 0518 Sep, Back pain M54.9 [facility] [id number] [place] [address] 35340- 9564 Sep, Restrictive lung disease J98.4 [facility] [address] [place] [address] 28990 2546 Aug, [facility] [id number] [place] [address] 28983- 2545 Aug, [facility] [id number] [place] [address] 01255- 1355 Aug, [facility] [id number] [place] [address] 54838- 254 Aug, [facility] [address] [place] [address] 00947- 0395 Aug, Back pain M54.9 [facility] [id number] [place] [address] 66958- 1991 Jul, Anemia D64.9 and Prediabetes R73.09 [facility] [id number] [place] [address] 61205- 7878 Jul, Back pain M54.9 [facility] [address] 81476- 9028 17 Jul, 2015 Back pain M54.9 [facility] [address] 42895- 0480 Jul, [facility] [address] 14709- 6240 05 Jul, 2015 Bronchitis J40 and Anemia D64.9 [facility] [address] 05288- 8196 Jun, [facility] [address] 84690- 5295 Jun, [facility] [address] 30769- 3231 Jun, Bronchitis J40 and Anemia D64.9 [facility] [id number] [place] [address] 97738- 8145 Jun, [facility] [id number] [place] [address] 68266- 4557 Jun, Back pain M54.9 [facility] [id number] [place] [address] 24076- 9479 Jun, Anemia D64.9 [facility] [address] 07372- 4330 Jun, Restrictive lung disease J98.4 ; Anemia D64.9 ; Hypothyroidism E03.9 ; Cor pulmonale I27.81 and Back pain M54.9 [facility] [address] 33119- 6102 May, [facility] [address] [place] [address] 75509- 5305 Apr, Anemia D64.9 ; Encounter for immunization Z23 and Restrictive lung disease J98.4 [facility] [id number] [place] [address] 32929- 6245 Apr, [facility] [id number] [place] [address] 37563- 5293 Mar, [facility] [id number] [place] [address] 55856- 9992 Mar, Iron deficiency anemia D50.9 [facility] [id number] [place] [address] 20443- 1111 Mar, [facility] [id number] [place] [address] 87776- 7773 Mar, [facility] [id number] [place] [address] 56427- 5354 Mar, Anemia D64.9 [facility] [id number] [place] [address] 67005- 3000 Mar, [facility] [id number] [place] [address] 89467- 5168 Mar, Anemia D64.9 [facility] [id number] [place] [address] 53680- 2301 Mar, Restrictive lung disease J98.4 and Anemia D64.9 [facility] [id number] [place] [address] 15802- 2714 Mar, [facility] [id number] [place] [address] 11745- 7466 Mar, Anemia D64.9 [facility] [id number] [place] [address] 05950- 2436 Mar, Anemia D64.9 [facility] [id number] [place] [address] 87265- 2049 Mar, [facility] [id number] [place] [address] 13115- 6488 Mar, Diabetes mellitus E11.9 ; Bronchitis J40 and Anemia D64.9 [facility] [id number] [place] [address] 17830- 2524 Feb, [facility] [address] 30155- 5804 Feb, [facility] [id number] [place] [address] 13017- 1404 Feb, [facility] [address] 78891- 2332 Feb, [facility] [id number] [place] [address] 06264- 8487 Jan, [facility] [id number] [place] [address] 11673- 6267 Jan, [facility] [id number] [place] [address] 14727- 7811 Dec, Venous insufficiency 459.81 [facility] [id number] [place] [address] 13423- 0023 Dec, [facility] [id number] [place] [address] 67544- 3284 Dec, [facility] [id number] [place] [address] 23266- 8760 Dec, Coronary atherosclerosis of unspecified type of vessel, elim ira or graft 414.00 ; Unspecified anemia 285.9 and Generalized osteoarthrosis , unspecified site 715.00 [facility] [id number] [place] [address] 29261- 4104 Nov, [facility] [id number] [place] [address] 16311- 0735 Nov, [facility] [address] [place] [address] Nov, [facility] [address] [id number] [address] October, [facility] [id number], [place] [address] October, Acute bronchitis 466.0 and Shortness of breath 786.05 [facility] [id number], [place] [address] Sep, [facility] [address] [facility] [id number] [place] [address] Sep, [facility] [address] [address] Aug, [facility] [address], [place] [address] Aug, [facility] [address] [id number] [address] Jul, [facility] [address] [id number] [place] [place] [address]- [address] Jul, [facility] [address] [address] Jul, [facility] [address], [place] [address] Jul, [facility] [address] [id number] [address] Jun, [facility] [place] [facility] [address] [id number] [place] [address]- 7[address] Jun, [facility] [address] [id number] [address] Jun, [facility] [place] [facility] [address] [id number] [address] Jun, [facility] [place] [facility] [id number] [place] [address]- 3044 Jun, [facility] [place] [facility] [address] [id number] [place] [address]- 4[address] Jun, [facility] [place] [facility] [address] [id number] [place] [address]- 0822 May, [facility] [place] [facility] [address] [id number] [place] [address]- 4594 May, [facility] [place] [facility] [address] [id number] [place] [address]- 9182 May, [facility] [place] [facility] [address] [id number] [place] [address]- 6076 May, [facility] [place] [facility] [address] [id number] [place] [address]- 2986 Apr, [facility] [place] [facility] [address] [id number] [place] [address]- 6124 Apr, [facility] [place] [facility] [address] [id number] [place] [address]- 3023 Apr, [facility] [place] [facility] [address] [id number] [place] [address]- 1635 Apr, [facility] [place] [facility] [address] [facility] [id number] [place] [address]- 489[address] Apr, [facility] [place] [facility] [address] [id number] [place] [address]- 2696 Apr, [facility] [place] [facility] [address] [id number] [place] [address]- 9227 Mar, [facility] [place] [facility] [address] [id number] [place] [address]- 3122 Mar, [facility] [place] [facility] [address] [id number] [place] [address]- 7994 Mar, [facility] [place] [facility] [address] [id number] [place] [address]- 4407 Mar, [facility] [place] [facility] [address] [id number] [place] [address]- 0928 Mar, [facility] [place] [facility] [address] [id number] [place] [address]- 7163 Mar, [facility] [place] [facility] [address] [id number] [place] [address]- 0345 Mar, [facility] [place] [facility] [address] [id number] [place] [address]- 1835 Mar, [facility] [place] [facility] [address] [id number] [place] [address]- 5612 Feb, [facility] [place] [facility] [address] [id number] [place] [address]- 8102 Feb, [facility] [place] [facility] [address] [id number] [place] [address]- 2199 Jan, [facility] [place] [facility] [address] [id number] [place] [address]- 0534 Jan, [facility] [place] [facility] [address] [id number] [place] [address]- 9349 Jan, [facility] [place] [facility] [address] [id number] [place] [address]- 0365 Jan, [facility] [place] [facility] [address] [id number] [place] [address]- 1522 Jan, [facility] [place] [facility] [address] [id number] [place] [address]- 7961 Jan, [facility] [place] [facility] [address] [id number] [place] [address]- 5439 Dec, [facility] [place] [facility] [address] [id number] [place] [address]- 2060 Dec, [facility] [place] [facility] [address] [id number] [place] [address]- 1863 Dec, [facility] [place] [facility] [address] [id number] [place] [address]- 3961 Dec, [facility] [place] [facility] [address] [id number] [place] [address]- 8897 Nov, [facility] [place] [facility] [address] [id number] [place] [address]- 9778 Nov, [facility] [place] [facility] [address] [id number] [place] [address]- 5362 Nov, [facility] [place] [facility] [address] [id number] [place] [address]- 1976 Nov, [facility] [place] [facility] [address] [id number] [place] [address]- 3961 Nov, [facility] [place] [facility] [address] [id number] [place] [address]- 8188 Nov, [facility] [place] [facility] [address] [id number] [place] [address]- 9051 Nov, [facility] [place] [facility] [address] [id number] [place] [address]- 1034 Nov, [facility] [place] [facility] [address] [id number] [place] [address]- 8267 Nov, [facility] [place] [facility] [address] [id number] [place] [address]- 3475 Nov, [facility] [place] [facility] [address] [id number] [place] [address]- 0898 Nov, [facility] [place] [facility] [address] [id number] [place] [address]- 4586 Nov, [facility] [place] [facility] [address] [id number] [place] [address]- 8353 October, [facility] [place] [facility] [address] [id number] [place] [address]- 0228 October, [facility] [place] [facility] [address] [id number] [place] [address]- 9328 October, [facility] [place] [facility] [address] [id number] [place] [address]- 4129 October, [facility] [address] [id number] [place] [address]- 6033 October, [facility] [address] [id number] [place] [address]- 8119 October, [facility] [address] [id number] [place] [address]- 4045 October, [facility] [address] [id number] [place] [address]- 2476 October, [facility] [address] [id number] [place] [address]- 3742 October, [facility] [address] [id number] [place] [address]- 6154 Sep, [facility] [address] [id number] [place] [address]- 5889 Sep, [facility] [address] [id number] [place] [address]- 0919 Sep, [facility] [address] [id number] [place] [address]- 3328 Sep, [facility] [address] [id number] [place] [address]- 6447 Sep, [facility] [address] [id number] [place] [address]- 6697 Sep, [facility] [address] [id number] [place] [address]- 6309 Aug, [facility] [place] [facility] [address] [id number] [place] [address]- 1349 Aug, [facility] [place] [facility] [address] [id number] [place] [address]- 1074 Aug, [facility] [place] [facility] [address] [id number] [place] [address]- 8500 Aug, [facility] [place] [facility] [address] [id number] [place] [address]- 8527 Aug, [facility] [place] [facility] [address] [id number] [place] [address]- 7587 Aug, [facility] [place] [facility] [address] [id number] [place] [address]- 0783 Aug, [facility] [place] [facility] [address] [id number] [place] [address]- 9398 Aug, [facility] [place] [facility] [address] [id number] [place] [address]- 9734 Aug, [facility] [place] [facility] [address] [id number] [place] [address]- 2571 Aug, [facility] [place] [facility] [address] [id number] [place] [address]- 2787 Jul, [facility] [place] [facility] [address] [id number] [place] [address]- 8371 Jul, [facility] [place] [facility] [address] [id number] [place] [address]- 7603 Jun, [facility] [place] [facility] [address] [id number] [place] [address]- 7877 Jun, [facility] [place] [facility] [address] [id number] [place] [address]- 3036 Jun, [facility] [place] [facility] [address] [id number], [place] [address]- 8071 Jun, [facility] [place] [facility] [address] [id number] [place] [address]- 7050 Jun, [facility] [place] [facility] [address] [id number] [place] [address]- 0513 Jun, [facility] [place] [facility] [address] [id number] [place] [address]- 1728 Jun, [facility] [place] [facility] [address] [id number], [place] [address]- 6036 Jun, [facility] [address] [id number] [place] [address]- 2831 May, [facility] [place] [facility] [address] [facility] [id number] [place] [address]- 7217 May, [facility] [address] [facility] [id number] [place] [address]- 9123 May, [facility] [place] [facility] [address] [id number] [place] [address]- 0917 May, [facility] [address] [facility] [id number] [place] [address]- 4940 May, [facility] [place] [facility] [address] [facility] [id number] [place] [address]- 4402 May, [facility] [address] [id number] [place] [place] [address]- 5499 May, [facility] [place] [facility] [address] [id number] [place] [address]- 3137 May, [facility] [address] [id number] [place] [address]- 0625 May, [facility] [place] [facility] [address] [facility] [id number] [place] [address]- 6388 Apr, [facility] [place] [facility] [address] [id number] [place] [address]- 3355 Apr, [facility] [place] [facility] [address] [id number], [place] [address]- 3682 Apr, [facility] [place] [facility] [address] [id number] [place] [address]- 0484 Apr, [facility] [place] [facility] [address] [facility] [id number] [place] [address]- 4224 Mar, [facility] [place] [facility] [address] [facility] [id number] [place] [address]- 2185 Mar, [facility] [place] [facility] [address] [id number] [place] [address]- 7708 30 Mar, 2012 [facility] [place] [facility] [address] [id number] [place] [address]- 8679 30 Mar, 2012 [facility] [place] [facility] [address] [id number] [place] [address]- 8851 30 Mar, 2012 [facility] [place] [facility] [address] [id number] [place] [address]- 9029 30 Mar, 2012 [facility] [place] [facility] [address] [id number] [place] [address]- 6608 29 Mar, 2012 [facility] [place] [facility] [address] [id number] [place] [address]- 1941 29 Mar, 2012 [facility] [place] [facility] [address] [id number] [place] [address]- 6052 Mar, 2012 [facility] [place] [facility] [address] [id number] [place] [address]- 6817 Mar, 2012 [facility] [place] [facility] [address] [id number] [place] [address]- 3664 18 Mar, 2012 [facility] [place] [facility] [address] [id number] [place] [address]- 6606 18 Mar, 2012 [facility] [place] [facility] [address] [id number] [place] [address]- 5374 18 Mar, 2012 [facility] [place] [facility] [address] [id number] [place] [address]- 5185 18 Mar, 2012 [facility] [place] [facility] [address] [id number] [place] [address]- 5412 18 Mar, 2012 [facility] [place] [facility] [address] [id number] [place] [address]- 4151 18 Mar, 2012 [facility] [place] [facility] [address] [id number] [place] [address]- 1069 17 Mar, 2012 [facility] [place] [facility] [address] [id number] [place] [address]- 4956 17 Mar, 2013 [facility] [place] [facility] [address] [id number] [place] [address]- 3374 15 Mar, 2012 [facility] [place] [facility] [address] [id number] [place] [address]- 2082 15 Mar, 2013 [facility] [place] [facility] [address] [id number] [place] [address]- 4389 14 Mar, 2013 [facility] [place] [facility] [address] [id number] [place] [address]- 9107 14 Mar, 2013 [facility] [place] [facility] [address] [id number] [place] [address]- 7158 14 Mar, 2013 [facility] [place] [facility] [address] [id number] [place] [address]- 5346 14 Mar, 2013 [facility] [place] [facility] [address] [id number] [place] [address]- 3656 12 Mar, 2013 [facility] [place] [facility] [address] [id number], [place] [address]- 4145 11 Mar, 2013 [facility] [place] [facility] [address] [id number], [place] [address]- 7761 11 Mar, 2013 [facility] [place] [facility] [address] [id number], [place] [address]- 4586 10 Mar, 2013 [facility] [place] [facility] [address] [id number], [place] [address]- 3698 10 Mar, 2012 [facility] [place] [facility] [address] [id number], [place] [address]- 1923 10 Mar, 2012 [facility] [place] [facility] [address] [id number], [place] [address]- 7365 10 Mar, 2013 [facility] [place] [facility] [address] [id number], [place] [address]- 4130 04 Mar, 2013 [facility] [place] [facility] [address] [id number], [place] [address]- 1121 Mar, [facility] [place] [facility] [address] [id number] [place] [address]- 7898 27 Feb, 2013 [facility] [place] [facility] [address] [id number] [place] [address]- 8256 Feb, [facility] [place] [facility] [address] [id number] [place] [address] 2546 Feb, [facility] [place] [facility] [address] [id number] [place] [address] 2546 Feb, [facility] [place] [facility] [address] [id number] [place] [address] 2540 Jan, [facility] [place] [facility] [address] [id number] [place] [address]- 5575 Jan, [facility] [place] [facility] [address] [id number] [place] [address]- 8331 Jan, [facility] [place] [facility] [address] [id number] [place] [address]- 7621 Jan, [facility] [place] [facility] [address] [id number] [place] [address]- 0447 Jan, [facility] [place] [facility] [address] [id number] [place] [address]- 0622 Jan, [facility] [place] [facility] [address] [id number] [place] [address]- 3847 Dec, [facility] [place] [facility] [address] [id number] [place] [address]- 5922 Dec, [facility] [place] [facility] [address] [id number] [place] [address]- 4827 Dec, [facility] [place] [facility] [address] [id number] [place] [address]- 9145 Dec, [facility] [place] [facility] [address] [id number] [place] [address]- 1293 Dec, [facility] [place] [facility] [address] [id number] [place] [address]- 3823 Dec, [facility] [place] [facility] [address] [id number] [place] [address]- 9138 Dec, [facility] [address] [id number] [place] [address]- 5405 Dec, [facility] [address] [id number] [place] [address]- 9582 Dec, [facility] [address] [id number] [place] [address]- 5661 Dec, [facility] [address] [id number] [place] [address]- 0490 Dec, [facility] [address] [id number] [place] [address]- 9508 October, [facility] [address] [id number] [place] [address]- 7863 October, [facility] [address] [id number] [place] [address]- 1214 October, [facility] [address] [id number] [place] [address]- 1974 October, [facility] [address] [id number] [place] [address]- 9453 Sep, [facility] [address] [id number] [place] [address]- 0939 Sep, [facility] [address] [id number] [place] [address]- 4983 Sep, [facility] [address] [id number] [place] [address]- 7345 Sep, [facility] [place] [facility] [address] [id number] [place] [address]- 0035 Sep, [facility] [address] [id number] [place] [address]- 6818 16 Sep, 2012 [facility] [address] [id number] [place] [address]- 0752 15 Sep, 2012 [facility] [address] [facility] [id number] [place] [address]- 0857 14 Sep, 2012 [facility] [address] [facility] [id number], [place] [address]- 8810 Sep, [facility] [address] [facility] [id number], [place] [address]- 5518 Sep, [facility] [address] [facility] [id number], [place] [address]- 5966 Sep, IMMUNIZATIONS No Known Immunizations SOCIAL HISTORY Never Assessed REASON FOR VISIT PLAN OF CARE VITAL SIGNS MEDICATIONS Medication Instructions Dosage Frequency Start Date End Date Duration Status Synthroid 200 MCG TAKE 1 TABLET (175 MCG) BY ORAL ROUTE ONCE DAILY Active RESULTS No Results PROCEDURES No Known [...] cramps--H 03/04/16 Hospitalization History RLE Cellulitis, Hypokalemia, anemia-[facility] 09/29/15 Hospitalization History Lower edema 09/2016 Hospitalization History Received stitches ER 10/2016
--- OUTSIDE RECORDS SUMMARY | 2018-03-19 23:58 | XMS REPORT ---
Author Author JAN HERNANDEZ [facility] Address [address] [place] [address] Care Team Providers Care Post Framer Name Role Phone JAN HERNANDEZ Unavailable PROBLEMS Type Condition ICD9-CM Code [id number] Code Onset Dates Condition Status SNOMED Code Problem Prediabetes R73.09 Active 5832980 Problem Arthritis M19.90 Active 9765178 Problem Hypokalemia E87.6 Active 00197367 Problem Coronary artery disease involving white mountain coronary artery of white mountain heart without angina pectoris I25.10 Active 2818868615315 Problem Skin cancer of face C44.300 Active 220312846 Problem Morbid (severe) obesity due to excess calories E66.01 Active 972936798 Problem Body mass index (BMI) of 45.0-49.9 in adult Z68.42 Active 825959087 Problem Venous insufficiency I87.2 Active 44187826 Problem 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 Active 560497710 Problem Anemia D64.9 Active 548636468 Problem Cor pulmonale I27.81 Active 61382946 Problem Back pain M54.9 Active 717909529 Problem Restrictive lung disease J98.4 Active 46168704 Problem Hypothyroidism E03.9 Active 06047309 ALLERGIES Substance Reaction Event Type Date Status Rocephin anaphylaxis, hives Drug Allergy Nov, Active Ibuprofen anaphylaxis, hives Drug Allergy Nov, Active ENCOUNTERS Encounter Location Date Diagnosis [facility] [address] [facility] [id number], [place] [address] Jan, [facility] [address] [facility] [id number], [place] [address] 3028 Jan, [facility] [address] [facility] [id number], [place] [address] Jan, Back pain M54.9 [facility] [address], [place] [address] 73[address] 13 Jan, 2018 Arthritis M19.90 [facility] [id number] [place] [address] 99883- 5055 Jan, Back pain M54.9 [facility] [id number] [place] [address] 61265- 7891 Jan, [facility] [id number] [place] [address] 53109- 8783 Jan, Back pain M54.9 [facility] [id number] [place] [address] 85332- 1268 Dec, Ingrowing nail with infection L60.0 and Onychomycosis B35.1 [facility] [id number] [place] [address] 45776- 1184 Dec, Arthritis M19.90 [facility] [id number] [place] [address] 64476- 5089 Dec, Ingrowing nail L60.0 [facility] [id number] [place] [address] 42323- 4317 Dec, Back pain M54.9 [facility] [address], [place] [address] Dec, [facility] [id number] [place] [address] 31663- 1600 Dec, Back pain M54.9 [facility] [address], [place] [address] 4569 Nov, Arthritis M19.90 [facility] [id number] [place] [address] 05997- 0478 Nov, [facility] [address], [place] [address] 4352 Nov, Arthritis M19.90 ; Anemia D64.9 ; Restrictive lung disease J98.4 ; Weakness R53.1 and BMI 50.0-59.9, adult Z68.43 [facility] [id number] [place] [address] 81701- 1707 Nov, Arthritis M19.90 [facility] [id number] [place] [address] 83639- 8022 06 Nov, 2017 Back pain M54.9 [facility] [id number] [place] [address] 15026- 4269 October, Back pain M54.9 [facility] [id number] [place] [address] 55743- 7331 October, Back pain M54.9 [facility] [id number] [place] [address] 08446- 8284 Sep, Back pain M54.9 [facility] [id number] [place] [address] 24388- 1897 Sep, Back pain M54.9 [facility] [id number] [place] [address] 91157 -0149 Sep, [facility] [id number] [place] [address] 55194 -7104 Sep, [facility] [id number] [place] [address] 87992 -3606 Sep, Swelling of right lower extremity M79.89 and Cellulitis of right lower extremity L03.115 [facility] [id number] [place] [address] 92172- 9654 27 Aug, 2017 Back pain M54.9 [facility] [id number] [place] [address] 00126- 7795 15 Aug, 2017 Back pain M54.9 [facility] [id number] [place] [address] 70822- 1232 Aug, [facility] [id number] [place] [address] 14309- 9057 Aug, Cellulitis of right lower extremity L03.115 ; Ventral hernia without obstruction or gangrene K43.9 and BMI 50.0-59.9, adult Z68.43 [facility] [id number] [place] [address] 91136- 0665 28 Jul, 2017 Back pain M54.9 [facility] [id number] [place] [address] 54552- 9941 28 Jul, 2017 [facility] (current) 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 Z79.891 ; Arthritis M19.90 ; Back pain M54.9 ; Prediabetes R73.09 ; Hypothyroidism E03.9 ; Coronary artery disease involving white mountain coronary artery of white mountain heart without angina pectoris I25.10 and Anemia D64.9 [facility] [id number] [place] [address] 46980- 9026 27 Jul, 2017 [facility] (current) 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 Z79.891 ; Back pain M54.9 ; Arthritis M19.90 ; Prediabetes R73.09 ; Hypothyroidism E03.9 ; Coronary artery disease involving white mountain coronary artery of white mountain heart without angina pectoris I25.10 ; Anemia D64.9 and BMI 45.0-49.9, adult Z68.42 [facility] [id number] [place] [address] 80993- 0171 15 Jul, 2017 Back pain M54.9 [facility] [id number] [place] [address] 29938- 4459 05 Jul, 2017 Back pain M54.9 [facility] [id number] [place] [address] 76610- 9710 Jun, Back pain M54.9 [facility] [address] [address]- 0074 04 Jun, 2017 Back pain M54.9 [facility] [id number] [place] [address] 37085 -0055 May, Skin cancer of face C44.300 and BMI 45.0-49.9, adult Z68.42 [facility] [id number] [place] [address] 74851- 0711 May, [facility] [id number] [place] [address] 98595- 1856 May, Back pain M54.9 [facility] [id number] [place] [address] 51885- 3900 May, Back pain M54.9 [facility] [id number] [place] [address] 47974 2546 May, Back pain M54.9 [facility] [id number] [place] [address] 90251- 8813 Apr, Back pain M54.9 [facility] [id number] [place] [address] 84251- 4027 Apr, Back pain M54.9 [facility] [id number] [place] [address] 94274- 8961 Mar, Back pain M54.9 [facility] [id number] [place] [address] 69338- 6665 Mar, Anemia D64.9 ; Encounter for immunization Z23 ; Arthritis M19.90 and Right inguinal hernia K40.90 [facility] [id number] [place] [address] 63895- 8694 Mar, Back pain M54.9 [facility] [id number] [place] [address] 53825- 3019 Feb, Back pain M54.9 [facility] [id number] [place] [address] 57882- 9340 Feb, Back pain M54.9 [facility] [id number] [place] [address] 84805- 6822 Jan, Back pain M54.9 [facility] [id number] [place] [address] 49667- 3712 Jan, Back pain M54.9 [facility] [address] [facility] [id number] [place] [address] 91948 2546 Jan, [facility] [address] [facility] [id number] [place] [address] 48608 2546 Jan, Back pain M54.9 [facility] [address] [facility] [id number] [place] [address] 06035 2546 Dec, Back pain M54.9 [facility] [address] [facility] [id number] [place] [address] 57276 2546 Dec, Back pain M54.9 [facility] [address] [facility] [id number] [place] [address] 94406 2546 Dec, [facility] [address] [facility] [id number] [place] [address] 34695 2546 Nov, Hypokalemia E87.6 [facility] [address] [facility] [id number] [place] [address] 11127 2546 Nov, Back pain M54.9 [facility] [address] [facility] [id number] [place] [address] 15625 2546 Nov, [facility] [address] [id number] [place] [address] 64632 2546 Nov, Arthritis M19.90 [facility] [id number] [place] [address] 46402 2546 Nov, Back pain M54.9 [facility] [address] [facility] [id number] [place] [address] 07656 2546 Nov, Generalized edema R60.1 [facility] [address] [facility] [id number] [place] [address] 84582 2546 Nov, Back pain M54.9 [facility] [address] [facility] [id number] [place] [address] 10184 2546 07 Nov, 2016 Pain in right knee M25.561 [facility] [id number] [place] [address] 55342- 9676 05 Nov, 2016 Encounter for removal of sutures Z48.02 and Pain in right knee M25.561 [facility] [place] [id number] [place] [address] 33249 -8092 Nov, Abrasion of right foot, subsequent encounter S90.811D [facility] [id number] [place] [address] 27728 -0716 October, Toe abrasion, right, initial encounter S90.414A [place] [address] 41774- 1088 October, [place] [address] 65097- 4213 October, Back pain M54.9 [place] [id number] [place] [address] 64232- 4406 October, Venous insufficiency I87.2 [place] [address] 42900- 7420 October, Pain in right knee M25.561 [place] [address] 58824- 3090 Sep, Back pain M54.9 [place] [id number] [place] [address] 12949- 5643 Sep, Venous insufficiency I87.2 [facility] [address] [id number] Sep, [facility] [id number] [place] [address] 32627 -7431 16 Sep, 2016 Leg edema, right R60.0 and Cellulitis of right lower extremity L03.115 [place] [id number] [place] [address] 11480- 1193 14 Sep, 2016 Pedal edema R60.0 [place] [id number] [place] [address] 34695- 2981 Sep, 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 ; Pain in right knee M25.561 and Arthritis M19.90 [facility] [id number] [place] [address] 08423- 0785 Aug, Back pain M54.9 [facility] [address] 54492- 5313 Aug, Back pain M54.9 [facility] [address] 75045- 1979 Aug, [facility] [address] 01672- 0598 Aug, Type 2 diabetes mellitus without complication E11.9 ; Restrictive lung disease J98.4 ; Arthritis M19.90 ; Back pain M54.9 ; Body mass index (BMI) of 45.0-49.9 in adult Z68.42 and Morbid (severe) obesity due to excess calories E66.01 [facility] [id number] [place] [address] 19144- 3829 Aug, Back pain M54.9 [facility] [address] 52404- 6613 Aug, Back pain M54.9 [facility] [id number] [place] [address] 46847- 3939 Jul, [facility] [id number] [place] [address] 12051- 6692 Jul, Back pain M54.9 [facility] [id number] [place] [address] 43581- 6503 Jul, Back pain M54.9 [facility] [id number] [place] [address] 55178- 2024 Jun, Back pain M54.9 [facility] [id number] [place] [address] 94233- 5474 Jun, Back pain M54.9 [facility] [id number] [place] [address] 36815- 8812 May, Back pain M54.9 [facility] [id number] [place] [address] 05925 2546 16 May, 2016 Back pain M54.9 [facility] [id number] [place] [address] 14966- 0836 May, Back pain M54.9 [facility] [id number] [place] [address] 73464 2546 May, Back pain M54.9 [facility] [id number] [place] [address] 99755- 9966 May, [facility] [id number] [place] [address] 90876- 2543 05 May, 2016 Back pain M54.9 and Pain in right knee M25.561 [facility] [id number] [place] [address] 86934- 0570 Apr, [facility] [id number] [place] [address] 89358- 0021 Apr, Type 2 diabetes mellitus without complication E11.9 ; Pain in right knee M25.561 and Pain in left knee M25.562 [facility] [id number] [place] [address] 95138- 7447 Mar, [facility] [id number] [place] [address] 49981- 6051 Mar, [facility] [id number] [place] [address] 44406- 5621 Mar, [facility] [id number] [place] [address] 42867- 1668 Mar, Restrictive lung disease J98.4 ; Anemia D64.9 and Cor pulmonale I27.81 [facility] [id number] [place] [address] 41630- 2686 17 Mar, 2016 [facility] [address] [facility] [id number], [place] [address]- 1296 14 Mar, 2016 [facility] [id number] [place] [address] 02880- 1406 03 Mar, 2016 [facility] [id number] [place] [address] 74717- 1674 30 Feb, 2016 [facility] [id number] [place] [address] 26484- 6300 29 Feb, 2016 [facility] [id number] [place] [address], [place] [address]- 8114 28 Feb, 2016 [facility] [id number] [place] [address] 20832- 6378 Feb, Restrictive lung disease J98.4 [facility] [id number] [place] [address] 28341- 9801 Feb, [facility] [address], [place] [address] -5384 22 Feb, 2016 [facility] [id number] [place] [address] 08454- 3869 16 Feb, 2016 [facility] [id number] [place] [address] 03819- 9041 Jan, [facility] [id number] [place] [address] 56259- 6225 Jan, [facility] [address], [place] [address]- 6969 Jan, [facility] [id number] [place] [address] 44668- 4749 Jan, [facility] [id number] [place] [address] 09971- 1039 Jan, Restrictive lung disease J98.4 ; Anemia D64.9 and Cor pulmonale I27.81 [facility] [id number], [place] [address]- 8170 Dec, [facility] [id number] [place] [address] 23670- 7367 Dec, [facility] [id number] [place] [address] 20716- 4343 14 Nov, 2015 Arthritis M19.90 and Hypokalemia E87.6 [facility] [id number] [place] [address] 22608- 9366 Nov, Back pain M54.9 [facility] [id number] [place] [address] 21546- 1928 October, Back pain M54.9 [facility] [id number] [place] [address] 09949- 3696 October, Back pain M54.9 [facility] [id number] [place] [address] 15261- 8952 Sep, Scabies exposure Z20.89 [facility] [id number] [place] [address] 87970- 3448 Sep, Restrictive lung disease J98.4 [facility] [id number] [place] [address] 94661- 2551 Sep, Back pain M54.9 [facility] [id number] [place] [address] 51157- 8191 Sep, Restrictive lung disease J98.4 [facility] [address], [place] [address]- 7917 Aug, [facility] [id number] [place] [address] 54706- 8283 Aug, [facility] [id number] [place] [address] 36264- 8185 Aug, [facility] [address], [place] [address]- 7395 Aug, [facility] [id number] [place] [address] 92611- 0022 Aug, Back pain M54.9 [facility] [address] 89335- 1681 Jul, Anemia D64.9 and Prediabetes R73.09 [facility] [id number] [place] [address] 13916- 4597 Jul, Back pain M54.9 [facility] [id number] [place] [address] 14117- 8811 Jul, Back pain M54.9 [facility] [address] 45600- 4598 Jul, [facility] [id number] [place] [address] 05307- 2650 Jul, Bronchitis J40 and Anemia D64.9 [facility] [id number] [place] [address] 58000- 1830 Jun, [facility] [id number] [place] [address] 66756- 8051 Jun, [facility] [id number] [place] [address] 70318- 6665 Jun, Bronchitis J40 and Anemia D64.9 [facility] [id number] [place] [address] 68542- 5660 Jun, [facility] [id number] [place] [address] 92332- 4886 Jun, Back pain M54.9 [facility] [id number] [place] [address] 36252- 8932 Jun, Anemia D64.9 [facility] [id number] [place] [address] 48829- 2737 Jun, Restrictive lung disease J98.4 ; Anemia D64.9 ; Hypothyroidism E03.9 ; Cor pulmonale I27.81 and Back pain M54.9 [facility] [id number] [place] [address] 18572- 0838 May, [facility] [id number] [place] [address] 22287- 5391 Apr, Anemia D64.9 ; Encounter for immunization Z23 and Restrictive lung disease J98.4 [facility] [address] 52018- 5535 Apr, [facility] [id number] [place] [address] 04404- 7158 Mar, [facility] [id number] [place] [address] 09518- 2158 Mar, Iron deficiency anemia D50.9 [facility] [id number] [place] [address] 24887- 0598 Mar, [facility] [id number] [place] [address] 38179- 4093 Mar, [facility] [id number] [place] [address] 15009- 6004 Mar, Anemia D64.9 [facility] [id number] [place] [address] 96145- 1137 Mar, [facility] [id number] [place] [address] 03208- 0072 Mar, Anemia D64.9 [facility] [id number] [place] [address] 04475- 4825 Mar, Restrictive lung disease J98.4 and Anemia D64.9 [facility] [id number] [place] [address] 26719- 0066 Mar, [facility] [id number] [place] [address] 26568- 5974 Mar, Anemia D64.9 [facility] [id number] [place] [address] 31341- 3424 Mar, Anemia D64.9 [facility] [id number] [place] [address] 47509- 2212 Mar, [facility] [id number] [place] [address] 96030- 0924 Mar, Diabetes mellitus E11.9 ; Bronchitis J40 and Anemia D64.9 [facility] [id number] [place] [address] 91272- 8943 Feb, [facility] [id number] [place] [address] 95668- 0374 Feb, [facility] [address] [address]- 3409 Feb, [facility] [id number] [place] [address] 32737- 5519 Feb, [facility] [id number] [place] [address] 17211- 5756 Jan, [facility] [id number] [place] [address] 65290- 3870 Jan, [facility] [id number] [place] [address] 75739- 7453 Dec, Venous insufficiency 459.81 [facility] [id number] [place] [address] 23661- 4315 Dec, [facility] [id number] [place] [address] 09161- 9660 Dec, [facility] [id number] [place] [address] 64893- 9117 Dec, Coronary atherosclerosis of unspecified type of vessel, [place] or graft 414.00 ; Unspecified anemia 285.9 and Generalized osteoarthrosis , unspecified site 715.00 [facility] [id number] [place] [address] 81732- 2917 Nov, [facility] [id number] [address] Nov, [facility] [id number] [place] [address] Nov, [facility] [id number] [place] [address] October, [facility] [id number] [place] [address] 03496- 2333 October, Acute bronchitis 466.0 and Shortness of breath 786.05 [facility] [id number] [place] [address] Sep, [facility] [id number] [place] [address] 06714- 3200 Sep, [facility] [id number] [place] [address] 78[address] Aug, [facility] [id number] [place] [address] Aug, [facility] [id number] [place] [address] Jul, [facility] [id number] [place] [address] 2[address] Jul, [facility] [id number] [place] [address] 5[address] Jul, [facility] [id number] [place] [address] 9[address] Jul, [facility] [id number] [place] [address]- 4988 Jun, [facility] [id number] [place] [address]- 5[address] Jun, [facility] [id number], [place] [address]83 Jun, [facility] [facility] [id number] [address] Jun, [facility] [place] [facility] [address] [id number] [place] [address] Jun, [facility] [place] [facility] [address] [id number] [place] [address] 4298 Jun, [facility] [place] [facility] [address] [id number] [place] [address]31 May, [facility] [place] [facility] [address] [id number] [place] [address] 8143 May, [facility] [place] [facility] [address] [id number] [place] [address] 9944 May, [facility] [place] [facility] [address] [id number] [place] [address] 4820 May, [facility] [place] [facility] [address] [id number] [place] [address]- 7706 Apr, [facility] [place] [facility] [address] [id number] [place] [address]- 7273 Apr, [facility] [place] [facility] [address] [id number] [place] [address]- 7684 Apr, [facility] [place] [facility] [address] [facility] [id number] [place] [address]- 8[address] Apr, [facility] [place] [facility] [address] [id number] [place] [address]- 0047 Apr, [facility] [place] [facility] [address] [id number], [place] [address] Apr, [facility] [place] [facility] [address] [id number] [place] [address]- [address]378 Mar, [facility] [place] [facility] [address] [id number] [place] [address]- 3432 Mar, [facility] [place] [facility] [address] [id number], [place] [address]- 5867 Mar, [facility] [place] [facility] [address] [id number] [place] [address]- 6163 Mar, [facility] [place] [facility] [address] [id number] [place] [address]- 7875 Mar, [facility] [place] [facility] [address] [id number] [place] [address]- 6841 Mar, [facility] [place] [facility] [address] [id number] [place] [address]- 5532 Mar, [facility] [place] [facility] [address] [id number] [place] [address] 2904 Mar, [facility] [place] [facility] [address] [id number] [place] [address]- 7276 Feb, [facility] [place] [facility] [address] [id number] [place] [address]- 6467 Feb, [facility] [place] [facility] [address] [id number] [place] [address]- 3895 Jan, [facility] [place] [facility] [address] [id number] [place] [address]- 9677 Jan, [facility] [place] [facility] [address] [id number] [place] [address]- 7722 Jan, [facility] [place] [facility] [address] [id number] [place] [address]- 3851 Jan, [facility] [place] [facility] [address] [id number] [place] [address]- 0586 Jan, [facility] [place] [facility] [address] [id number] [place] [address]- 4684 Jan, [facility] [place] [facility] [address] [id number] [place] [address]- 9560 Dec, [facility] [place] [facility] [address] [id number] [place] [address] Dec, [facility] [place] [facility] [address] [id number] [place] [address]- 9721 Dec, [facility] [place] [facility] [address] [id number] [place] [address]- 0056 Dec, [facility] [place] [facility] [address] [id number] [place] [address]- 2729 Nov, [facility] [place] [facility] [address] [id number] [place] [address]- 4787 Nov, [facility] [place] [facility] [address] [id number] [place] [address]- 5844 Nov, [facility] [place] [facility] [address] [id number] [place] [address]- 3100 Nov, [facility] [place] [facility] [address] [id number] [place] [address]- 0356 Nov, [facility] [place] [facility] [address] [id number] [place] [address]- 1136 Nov, [facility] [place] [facility] [address] [id number] [place] [address]- 0326 Nov, [facility] [place] [facility] [address] [id number] [place] [address]- 3012 Nov, [facility] [place] [facility] [address] [id number] [place] [address]- 4329 Nov, [facility] [place] [facility] [address] [id number], [place] [address]- 7511 Nov, [facility] [place] [facility] [address] [id number], [place] [address]- 8414 Nov, [facility] [place] [facility] [address] [id number] [place] [address]- 4936 Nov, [facility] [place] [facility] [address] [id number] [place] [address]- 8095 October, [facility] [place] [facility] [address] [id number] [place] [address]- 4610 October, [facility] [place] [facility] [address] [id number] [place] [address]- 6995 October, [facility] [address] [id number] [place] [address]- 1805 October, [facility] [place] [facility] [address] [id number] [place] [address]- 7340 October, [facility] [place] [facility] [address] [id number] [place] [address] October, [facility] [place] [facility] [address] [id number] [place] [address]- 0500 October, [facility] [place] [facility] [address] [id number] [place] [address]- 8564 October, [facility] [place] [facility] [address] [id number] [place] [address]- 8642 October, [facility] [address] [id number] [place] [address]- 7779 Sep, [facility] [place] [facility] [address] [id number] [place] [address]- 5758 Sep, [facility] [place] [facility] [address] [id number] [place] [address]- 3430 Sep, [facility] [place] [facility] [address] [id number] [place] [address]- 8030 Sep, [facility] [place] [facility] [address] [id number] [place] [address]- 0185 Sep, [facility] [place] [facility] [address] [id number] [place] [address]- 5754 Sep, [facility] [place] [facility] [address] [id number] [place] [address]- 9382 Aug, [facility] [place] [facility] [address] [id number] [place] [address]- 2493 Aug, [facility] [place] [facility] [address] [id number] [place] [address]- 3875 Aug, [facility] [place] [facility] [address] [id number] [place] [address]- 5922 Aug, [facility] [place] [facility] [address] [id number] [place] [address]- 7880 Aug, [facility] [place] [facility] [address] [id number] [place] [address]- 7634 Aug, [facility] [place] [facility] [address] [id number] [place] [address]- 8797 Aug, [facility] [place] [facility] [address] [id number] [place] [address]- 3617 Aug, [facility] [place] [facility] [address] [id number] [place] [address]- 4716 Aug, [facility] [place] [facility] [address] [id number] [place] [address]- 5727 Aug, [facility] [place] [facility] [address] [id number] [place] [address]- 5343 Jul, [facility] [place] [facility] [address] [id number] [place] [address]- 5271 Jul, [facility] [place] [facility] [address] [id number] [place] [address]- 3367 Jun, [facility] [place] [facility] [address] [id number] [place] [address]- 8245 Jun, [facility] [place] [facility] [address] [id number] [place] [address]- 0264 Jun, [facility] [place] [facility] [address] [id number] [place] [address]- 9174 Jun, [facility] [place] [facility] [address] [id number] [place] [address]- 8428 Jun, [facility] [place] [facility] [address] [id number] [place] [address]- 2590 Jun, [facility] [place] [facility] [address] [id number] [place] [address]- 1376 Jun, [facility] [address] [id number] [place] [address]- 9365 Jun, [facility] [place] [facility] [address] [id number] [place] [address]- 2985 May, [facility] [place] [facility] [address] [id number] [place] [address]- 5082 May, [facility] [place] [facility] [address] [id number] [place] [address]- 6123 May, [facility] [place] [facility] [address] [id number] [place] [address]- 3589 May, [facility] [place] [facility] [address] [id number] [place] [address]- 3417 May, [facility] [address] [id number] [place] [address]- 3969 May, [facility] [place] [facility] [address] [id number] [place] [address]- 9854 May, [facility] [place] [facility] [address] [id number] [place] [address]- 3648 May, [facility] [place] [facility] [address] [facility] [id number] [place] [address]- 7308 May, [facility] [place] [facility] [address] [id number] [place] [address]- 5780 Apr, [facility] [place] [facility] [address] [id number] [place] [address]- 4699 Apr, [facility] [place] [facility] [address] [id number] [place] [address]- 0148 Apr, [facility] [place] [facility] [address] [id number] [place] [address]- 2903 Apr, [facility] [place] [facility] [address] [facility] [id number] [place] [address]- 3014 Mar, [facility] [place] [facility] [address] [id number] [place] [address]- 8542 30 Mar, 2012 [facility] [place] [facility] [address] [id number] [place] [address]- 3655 30 Mar, 2012 [facility] [place] [facility] [address] [id number] [place] [address]- 6961 30 Mar, 2012 [facility] [place] [facility] [address] [id number] [place] [address]- 2638 30 Mar, 2012 [facility] [place] [facility] [address] [id number] [place] [address]- 3549 30 Mar, 2012 [facility] [place] [facility] [address] [id number] [place] [address]- 6992 Mar, 2012 [facility] [place] [facility] [address] [id number] [place] [address]- 4530 29 Mar, 2012 [facility] [place] [facility] [address] [id number] [place] [address]- 5653 Mar, 2012 [facility] [place] [facility] [address] [id number] [place] [address]- 7854 Mar, 2012 [facility] [place] [facility] [address] [id number] [place] [address]- 8785 18 Mar, 2012 [facility] [place] [facility] [address] [id number] [place] [address]- 7783 18 Mar, 2012 [facility] [place] [facility] [address] [id number] [place] [address]- 2565 18 Mar, 2012 [facility] [place] [facility] [address] [id number] [place] [address]- 2486 18 Mar, 2012 [facility] [place] [facility] [address] [id number] [place] [address]- 5876 18 Mar, 2012 [facility] [place] [facility] [address] [id number] [place] [address]- 2817 18 Mar, 2012 [facility] [place] [facility] [address] [id number] [place] [address]- 7203 17 Mar, 2012 [facility] [place] [facility] [address] [id number] [place] [address]- 8950 17 Mar, 2012 [facility] [place] [facility] [address] [id number] [place] [address]- 9998 15 Mar, 2012 [facility] [place] [facility] [address] [id number] [place] [address]- 9595 15 Mar, 2012 [facility] [place] [facility] [address] [id number] [place] [address]- 1826 14 Mar, 2012 [facility] [place] [facility] [address] [id number] [place] [address]- 2231 14 Mar, 2012 [facility] [place] [facility] [address] [id number] [place] [address]- 4601 14 Mar, 2012 [facility] [place] [facility] [address] [id number] [place] [address]- 6985 14 Mar, 2012 [facility] [place] [facility] [address] [id number], [place] [address]- 6999 12 Mar, 2012 [facility] [place] [facility] [address] [id number], [place] [address]- 0922 11 Mar, 2012 [facility] [place] [facility] [address] [id number], [place] [address]- 2803 11 Mar, 2012 [facility] [place] [facility] [address] [id number], [place] [address]- 2237 10 Mar, 2012 [facility] [place] [facility] [address] [id number], [place] [address]- 6446 10 Mar, 2012 [facility] [place] [facility] [address] [id number], [place] [address]- 6565 10 Mar, 2012 [facility] [place] [facility] [address] [id number], [place] [address]- 6747 10 Mar, 2012 [facility] [place] [facility] [address] [id number], [place] [address]- 4860 04 Mar, 2012 [facility] [place] [facility] [address] [id number] [place] [address]- 3820 Mar, [facility] [address] [id number] [place] [address]- 0007 Feb, [facility] [place] [facility] [address] [id number] [place] [address]- 8416 Feb, [facility] [place] [facility] [address] [id number] [place] [address]- 5306 Feb, [facility] [place] [facility] [address] [id number] [place] [address]- 4695 Feb, [facility] [place] [facility] [address] [id number] [place] [address]- 9500 Jan, [facility] [place] [facility] [address] [id number] [place] [address]- 7299 Jan, [facility] [place] [facility] [address] [id number] [place] [address]- 7300 Jan, [facility] [place] [facility] [address] [id number] [place] [address]- 2811 Jan, [facility] [place] [facility] [address] [id number] [place] [address]- 6960 Jan, [facility] [place] [facility] [address] [id number] [place] [address]- 6255 Jan, [facility] [place] [facility] [address] [id number] [place] [address]- 3390 Dec, [facility] [place] [facility] [address] [id number] [place] [address]- 2545 Dec, [facility] [place] [facility] [address] [id number] [place] [address]- 2562 Dec, [facility] [place] [facility] [address] [id number] [place] [address]- 8568 Dec, [facility] [place] [facility] [address] [id number] [place] [address]- 8820 Dec, [facility] [place] [facility] [address] [id number] [place] [address]- 5275 Dec, [facility] [address] [id number] [place] [address]- 2016 Dec, [facility] [place] [facility] [address] [id number] [place] [address]- 3024 16 Dec, 2012 [facility] [address] [id number] [place] [address]- 4803 Dec, [facility] [address] [id number] [place] [address]- 3201 Dec, [facility] [place] [facility] [address] [id number] [place] [address]- 1443 Dec, [facility] [address] [id number] [place] [address]- 6673 October, [facility] [address] [id number] [place] [address]- 8397 October, [facility] [address] [id number] [place] [address]- 1241 October, [facility] [address] [id number] [place] [address]- 4359 October, [facility] [address] [id number] [place] [address]- 0391 Sep, [facility] [place] [facility] [address] [id number] [place] [address]- 7563 Sep, [facility] [place] [facility] [address] [id number] [place] [address]- 8015 Sep, [facility] [place] [facility] [address] [id number] [place] [address]- 2631 Sep, [facility] [place] [facility] [address] [id number] [place] [address]- 0734 Sep, [facility] [place] [facility] [address] [id number], [place] [address]- 1843 16 Sep, 2012 [facility] [address] [facility] [id number], [place] [address]- 4945 15 Sep, 2012 [facility] [address] [id number], [place] [address]- 0888 14 Sep, 2012 [facility] [address] [id number], [place] [address]- 3568 Sep, [facility] [id number], [place] [address]- 2632 Sep, [facility] [address] [facility] [id number], [place] [address]- 8896 Sep, IMMUNIZATIONS No Known Immunizations SOCIAL HISTORY Never Assessed REASON FOR VISIT Pain management (chronic) [facility], Pain in both knees, Medication refill , PT is wanting albuterol in pill form PLAN OF CARE Activity Details Follow Up 3 Months Reason: VITAL SIGNS Height 62 in 2017-12-02 Weight 302.2 lbs 2017-12-02 Temperature 98.2 degrees Fahrenheit 2017-12-02 Heart Rate 72 bpm 2017-12-02 Respiratory Rate 20 2017-12-02 Oximetry w/ oxygen:95 % 2017-12-02 BMI 55.27 kg/m2 2017-12-02 Blood pressure systolic 118 mmHg 2017-12-02 Blood pressure diastolic 62 mmHg 2017-12-02 MEDICATIONS Medication Instructions Dosage Frequency Start Date End Date Duration Status Imdur 30 MG Orally Once a day 1 tablet 24h Active Latanoprost 0.005 % Ophthalmic Once a day 1 drop into affected eye in the evening 24h Active Potassium Chloride Angie ER 20 meq Orally Twice a day 1 tablet 12h Active Flexeril 10 mg take 1 tablet (10 mg) by oral route 3 times per day PRN pain Jan, Active Lipitor 80 MG Orally Once a day 1 tablet 24h Active Polysaccharide Iron Complex 150 MG Orally 2 times a day 1 capsule 12h 27 Mar, 2015 Not-Taking Lasix 80 MG Orally Once a day 1 tablet 24h 07 Dec, 2014 Active Percocet 7.5-325 MG Orally 3 times a day 1 tablet 8h Nov, 28 days Active Albuterol Sulfate HFA 108 (90 Base) MCG/ACT Inhalation every 4 hrs 2 puffs as needed 4h 05 Jul, 2015 Not-Taking Fentanyl 100 MCG/HR Transdermal every 72 hours 1 Patch 11 Nov, 2017 28 days Active Synthroid 175 MCG TAKE 1 TABLET (175 MCG) BY ORAL ROUTE ONCE DAILY Active Glucophage 500 MG 1 TABLET BY ORAL ROUTE 1 TIME PER DAY WITH MEALS TWICE DAILY. Active ProAir HFA 108 (90 Base) MCG/ACT Inhalation every 6 hrs 2 puffs as needed 6h Nov, Active Commode Bedside - Bariatric Bed Side Commode Nov, Not- Taking Wheelchair - to use for mobility daily Bariatric 24h Aug, Active Aspirin 81 mg take 1 tablet (81 mg) by oral route once daily Sep, Active Wheelchair - use heavy duty wheel chair for mobility 24h Nov, Active Toprol XL 25 mg 0.5 Tablet by Oral route 1 time per day Nov, Active Omeprazole 40 MG Orally Once a day 1 capsule 24h Not-Taking RESULTS No Results PROCEDURES Procedure Date Ordered Result Body Site LAB [facility], 2017 INSTRUCTIONS MEDICATIONS ADMINISTERED No Known Medications MEDICAL [...]
--- OUTSIDE RECORDS SUMMARY | 2018-03-19 23:59 | XMS REPORT ---
Author Author JAN HERNANDEZ [facility] Address [address] [place] [address] Care Team Providers Care Casino Floor Supervisor Name Role Phone JAN HERNANDEZ Unavailable PROBLEMS Type Condition ICD9-CM Code BQU69-WB Code Onset Dates Condition Status SNOMED Code Problem Prediabetes R73.09 Active 2413524 Problem Arthritis M19.90 Active 2202681 Problem Hypokalemia E87.6 Active 51738212 Problem Coronary artery disease involving rampart coronary artery of rampart heart without angina pectoris I25.10 Active 2885596668550 Problem Skin cancer of face C44.300 Active 547315179 Problem Morbid (severe) obesity due to excess calories E66.01 Active 670893381 Problem Body mass index (BMI) of 45.0-49.9 in adult Z68.42 Active 534709149 Problem Venous insufficiency I87.2 Active 99144187 Problem 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 Active 193684769 Problem Anemia D64.9 Active 008253387 Problem Cor pulmonale I27.81 Active 35614446 Problem Back pain M54.9 Active 968834237 Problem Restrictive lung disease J98.4 Active 99569582 Problem Hypothyroidism E03.9 Active 83391538 ALLERGIES No Information ENCOUNTERS Encounter Location Date Diagnosis [facility], [place] [id number] [address] Jan, [facility], [place] [id number] [address] 3899 Jan, Back pain M54.9 [facility], [place] [id number] [address] 3510 Jan, Arthritis M19.90 [facility], [place] [id number] [address] 1606 Jan, Back pain M54.9 [facility], [place] [address] [address] 3973 Jan, [facility], [place] [id number] [place] [address] 07229- 3884 Jan, Back pain M54.9 [facility], [place] [id number] [place] [address] 18139- 3226 Dec, Ingrowing nail with infection L60.0 and Onychomycosis B35.1 [facility], [place] [id number] [place] [address] 71474- 5059 Dec, Arthritis M19.90 [facility], [place] [id number] [place] [address] 03194- 8742 Dec, Ingrowing nail L60.0 [facility], [place] [id number] [place] [address] 75735- 5540 Dec, Back pain M54.9 [facility] [address] [address] Dec, [facility], [place] [id number] [place] [address] 44126- 1490 Dec, Back pain M54.9 [facility], [place] [id number] [place] [address] 23479- 0221 Nov, Arthritis M19.90 [facility], [place] [id number] [place] [address] 20506- 8133 Nov, [facility], [place] [id number] [place] [address] 77254- 7120 Nov, Arthritis M19.90 ; Anemia D64.9 ; Restrictive lung disease J98.4 ; Weakness R53.1 and BMI 50.0-59.9, adult Z68.43 [facility], [place] [address] [address]- 6132 Nov, Arthritis M19.90 [facility], [place] [id number] [place] [address] 62463- 1839 Nov, Back pain M54.9 [facility], [place] [id number] [place] [address] 63404- 5278 October, Back pain M54.9 [facility], [place] [id number] [place] [address] 62334- 1434 October, Back pain M54.9 [facility], [place] [id number] [place] [address] 36622- 2636 Sep, Back pain M54.9 [facility], [place] [id number] [place] [address] 94466- 7691 Sep, Back pain M54.9 [facility] [id number] [place] [address] 98297 -9563 Sep, [facility] [id number] [place] [address] 37801 -1022 Sep, [facility] [id number] [place] [address] 72275 -9736 Sep, Swelling of right lower extremity M79.89 and Cellulitis of right lower extremity L03.115 [facility] [id number] [place] [address] 66582- 5844 27 Aug, 2017 Back pain M54.9 [facility] [id number] [place] [address] 56027- 1520 15 Aug, 2017 Back pain M54.9 [facility], [place] [id number] [place] [address] 61392- 7069 13 Aug, 2017 [facility] [id number] [place] [address] 49902- 5525 Aug, Cellulitis of right lower extremity L03.115 ; Ventral hernia without obstruction or gangrene K43.9 and BMI 50.0-59.9, adult Z68.43 [facility] [id number] [place] [address] 92084- 0005 Jul, Back pain M54.9 [facility], [place] [id number] [place] [address] 33591- 4820 Jul, 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 ; Arthritis M19.90 ; Back pain M54.9 ; Prediabetes R73.09 ; Hypothyroidism E03.9 ; Coronary artery disease involving rampart coronary artery of rampart heart without angina pectoris I25.10 and Anemia D64.9 [facility], [place] [id number] [place] [address] 17212- 9728 27 Jul, 2017 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 ; Back pain M54.9 ; Arthritis M19.90 ; Prediabetes R73.09 ; Hypothyroidism E03.9 ; Coronary artery disease involving rampart coronary artery of rampart heart without angina pectoris I25.10 ; Anemia D64.9 and BMI 45.0-49.9, adult Z68.42 [facility], [place] [id number] [place] [address] 94043- 4597 15 Jul, 2017 Back pain M54.9 [facility], [place] [id number] [place] [address] 27232- 8546 05 Jul, 2017 Back pain M54.9 [facility], [place] [id number] [place] [address] 04693- 0994 Jun, Back pain M54.9 [facility], [place] [id number] [place] [address] 89311- 7903 Jun, Back pain M54.9 [facility] [id number] [place] [address] 67609 -7990 May, Skin cancer of face C44.300 and BMI 45.0-49.9, adult Z68.42 [facility], [place] [id number] [place] [address] 78903- 6320 May, [facility], [place] [id number] [place] [address] 94223- 1005 May, Back pain M54.9 [facility], [place] [id number] [place] [address] 43364- 7929 May, Back pain M54.9 [facility], [place] [address] [facility] [id number] [place] [address] 85558 2546 May, Back pain M54.9 [facility], [place] [id number] [place] [address] 29061- 6327 Apr, Back pain M54.9 [facility], [place] [id number] [place] [address] 95243- 3282 Apr, Back pain M54.9 [facility], [place] [address] 11456- 4532 Mar, Back pain M54.9 [facility], [place] [id number] [place] [address] 77246- 4519 Mar, Anemia D64.9 ; Encounter for immunization Z23 ; Arthritis M19.90 and Right inguinal hernia K40.90 [facility], [place] [id number] [place] [address] 51769- 2904 Mar, Back pain M54.9 [facility], [place] [id number] [place] [address] 32239- 1084 Feb, Back pain M54.9 [facility], [place] [id number] [place] [address] 16326- 8610 Feb, Back pain M54.9 [facility], [place] [id number] [place] [address] 84809- 2540 Jan, Back pain M54.9 [facility], [place] [id number] [place] [address] 83935- 6027 Jan, Back pain M54.9 [facility], [place] [id number] [place] [address] 03738- 1927 Jan, [facility], [place] [id number] [place] [address] 12393- 7478 Jan, Back pain M54.9 [facility], [place] [id number] [place] [address] 17233- 8155 Dec, Back pain M54.9 [facility], [place] [id number] [place] [address] 88776- 0796 Dec, Back pain M54.9 [facility], [place] [id number] [place] [address] 81639- 9811 Dec, [facility], [place] [id number] [place] [address] 37872- 9573 Nov, Hypokalemia E87.6 [facility], [place] [id number] [place] [address] 57703- 8962 Nov, Back pain M54.9 [facility], [place] [id number] [place] [address] 33246- 4103 Nov, [facility], [place] [id number] [place] [address] 18484- 8440 Nov, Arthritis M19.90 [facility], [place] [id number] [place] [address] 01985- 4001 Nov, Back pain M54.9 [facility], [place] [id number] [place] [address] 80396- 2589 Nov, Generalized edema R60.1 [facility], [place] [id number] [place] [address] 00587- 3303 Nov, Back pain M54.9 [facility], [place] [id number] [place] [address] 52101- 4029 Nov, Pain in right knee M25.561 [facility], [place] [id number] [place] [address] 96897- 3830 05 Nov, 2016 Encounter for removal of sutures Z48.02 and Pain in right knee M25.561 [facility] [id number] [place] [address] 84852 -8989 Nov, Abrasion of right foot, subsequent encounter S90.811D [facility] [id number] [place] [address] 59234 -7231 October, Toe abrasion, right, initial encounter S90.414A [facility], [place] [id number] [place] [address] 78315- 9575 October, [facility] [address] 52888- 1440 October, Back pain M54.9 [facility] [address] 39104- 9343 October, Venous insufficiency I87.2 [facility] [address] 51085- 9596 October, Pain in right knee M25.561 [facility] [address] 97513- 7743 Sep, Back pain M54.9 [facility] [id number] [place] [address] 03524- 1786 Sep, Venous insufficiency I87.2 [facility] [address] [id number] Sep, [facility] [id number] [place] [address] 02871 -5309 Sep, Leg edema, right R60.0 and Cellulitis of right lower extremity L03.115 [facility] [id number] [place] [address] 63944- 6487 14 Sep, 2016 Pedal edema R60.0 [facility] [address] 15872- 1273 04 Sep, 2016 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 ; Pain in right knee M25.561 and Arthritis M19.90 [facility] [address] 26430- 6223 Aug, Back pain M54.9 [facility], [place] [id number] [place] [address] 49967- 9581 Aug, Back pain M54.9 [facility], [place] [id number] [place] [address] 54870- 8560 Aug, [facility], [place] [id number] [place] [address] 66547- 0491 Aug, Type 2 diabetes mellitus without complication E11.9 ; Restrictive lung disease J98.4 ; Arthritis M19.90 ; Back pain M54.9 ; Body mass index (BMI) of 45.0-49.9 in adult Z68.42 and Morbid (severe) obesity due to excess calories E66.01 [facility], [place] [id number] [place] [address] 10773- 6280 Aug, Back pain M54.9 [facility], [place] [address] 57730- 6250 Aug, Back pain M54.9 [facility], [place] [id number] [place] [address] 37796- 0645 Jul, [facility], [place] [id number] [place] [address] 17507- 6869 Jul, Back pain M54.9 [facility], [place] [id number] [place] [address] 21204- 6463 Jul, Back pain M54.9 [facility], [place] [id number] [place] [address] 06335- 3882 Jun, Back pain M54.9 [facility], [place] [id number] [place] [address] 45755- 5611 Jun, Back pain M54.9 [facility], [place] [id number] [place] [address] 50581- 3341 May, Back pain M54.9 [facility], [place] [id number] [place] [address] 35578- 0130 16 May, 2016 Back pain M54.9 [facility], [place] [id number] [place] [address] 52678- 8317 May, Back pain M54.9 [facility], [place] [id number] [place] [address] 36461- 3446 May, Back pain M54.9 [facility], [place] [id number] [place] [address] 86882- 8186 May, [facility], [place] [id number] [place] [address] 96311- 7752 05 May, 2016 Back pain M54.9 and Pain in right knee M25.561 [facility], [place] [id number] [place] [address] 06026- 4632 Apr, [facility], [place] [id number] [place] [address] 38506- 1983 Apr, Type 2 diabetes mellitus without complication E11.9 ; Pain in right knee M25.561 and Pain in left knee M25.562 [facility], [place] [id number] [place] [address] 02729- 8620 Mar, [facility], [place] [id number] [place] [address] 50658- 9970 Mar, [facility], [place] [id number] [place] [address] 21713- 7002 Mar, [facility], [place] [address] [place] [address] 52166- 8668 Mar, Restrictive lung disease J98.4 ; Anemia D64.9 and Cor pulmonale I27.81 [facility], [place] [id number] [place] [address] 31177- 4687 Mar, [facility], [place] [id number] [place] [address] 56518- 3217 14 Mar, 2016 [facility], [place] [id number] [place] [address] 60063- 8292 Mar, [facility], [place] [address] [address]- 4656 30 Feb, 2016 [facility], [place] [id number] [place] [address] 88314- 7831 29 Feb, 2016 [facility], [place] [id number] [place] [address] 56922- 4020 Feb, [facility], [place] [id number] [place] [address] 41070- 4420 Feb, Restrictive lung disease J98.4 [facility], [place] [id number] [place] [address] 33463- 5096 Feb, [facility] [id number] [place] [address] 73809 -2807 Feb, [facility], [place] [id number] [place] [address] 38130- 1967 Feb, [facility], [place] [id number] [place] [address] 58025- 8839 Jan, [facility], [place] [id number] [place] [address] 61940- 4091 Jan, [facility], [place] [address] [address]- 9291 Jan, [facility], [place] [id number] [place] [address] 98713- 2877 Jan, [facility], [place] [address] [address]- 1618 Jan, Restrictive lung disease J98.4 ; Anemia D64.9 and Cor pulmonale I27.81 [facility], [place] [address] [place] [address] 20768- 6142 Dec, [facility], [place] [address] [place] [address] 51464- 9432 Dec, [facility], [place] [id number] [place] [address] 18964- 0085 14 Nov, 2015 Arthritis M19.90 and Hypokalemia E87.6 [facility], [place] [id number] [place] [address] 76846- 6396 10 Nov, 2015 Back pain M54.9 [facility], [place] [id number] [place] [address] 31719- 8566 October, Back pain M54.9 [facility], [place] [id number] [place] [address] 97351 2546 October, Back pain M54.9 [facility], [place] [id number] [place] [address] 32326- 4716 Sep, Scabies exposure Z20.89 [facility], [place] [id number] [place] [address] 15426- 7866 Sep, Restrictive lung disease J98.4 [facility], [place] [id number] [place] [address] 02191- 8371 Sep, Back pain M54.9 [facility], [place] [id number] [place] [address] 24856- 0552 Sep, Restrictive lung disease J98.4 [facility], [place] [id number] [place] [address] 31023 2546 Aug, [facility], [place] [id number] [place] [address] 70880 2546 Aug, [facility], [place] [id number] [place] [address] 13050 2546 Aug, [facility], [place] [id number] [place] [address] 53512 2546 Aug, [facility], [place] [id number] [place] [address] 50392 2546 Aug, Back pain M54.9 [facility], [place] [id number] [place] [address] 44970 2546 Jul, Anemia D64.9 and Prediabetes R73.09 [facility], [place] [id number] [place] [address] 38865- 7332 Jul, Back pain M54.9 [facility], [place] [id number] [place] [address] 66121- 8068 17 Jul, 2015 Back pain M54.9 [facility], [place] [address] 08314- 3731 Jul, [facility], [place] [id number] [place] [address] 00957- 6227 05 Jul, 2015 Bronchitis J40 and Anemia D64.9 [facility], [place] [address] 13967- 6723 Jun, [facility], [place] [address] 47088- 6567 Jun, [facility], [place] [address] 68881- 9183 Jun, Bronchitis J40 and Anemia D64.9 [facility], [place] [address] 87932- 9120 Jun, [facility], [place] [id number] [place] [address] 01709- 3940 Jun, Back pain M54.9 [facility], [place] [id number] [place] [address] 34301- 3312 Jun, Anemia D64.9 [facility], [place] [id number] [place] [address] 45165- 9895 Jun, Restrictive lung disease J98.4 ; Anemia D64.9 ; Hypothyroidism E03.9 ; Cor pulmonale I27.81 and Back pain M54.9 [facility], [place] [id number] [place] [address] 04045- 3586 May, [facility], [place] [address] 31617- 1480 Apr, Anemia D64.9 ; Encounter for immunization Z23 and Restrictive lung disease J98.4 [facility], [place] [id number] [place] [address] 93485- 2933 Apr, [facility], [place] [id number] [place] [address] 91773- 9830 Mar, [facility], [place] [id number] [place] [address] 65186- 6634 Mar, Iron deficiency anemia D50.9 [facility], [place] [id number] [place] [address] 18852- 2681 Mar, [facility], [place] [id number] [place] [address] 19486- 6107 Mar, [facility], [place] [id number] [place] [address] 61092- 5634 Mar, Anemia D64.9 [facility], [place] [id number] [place] [address] 09293- 4568 Mar, [facility], [place] [id number] [place] [address] 65971- 2158 Mar, Anemia D64.9 [facility], [place] [id number] [place] [address] 82798- 9219 Mar, Restrictive lung disease J98.4 and Anemia D64.9 [facility], [place] [id number] [place] [address] 61223- 0920 Mar, [facility], [place] [id number] [place] [address] 50678- 6566 Mar, Anemia D64.9 [facility], [place] [id number] [place] [address] 57476- 5123 Mar, Anemia D64.9 [facility], [place] [id number] [place] [address] 84566- 4188 Mar, [facility], [place] [id number] [place] [address] 25543- 3646 Mar, Diabetes mellitus E11.9 ; Bronchitis J40 and Anemia D64.9 [facility], [place] [id number] [place] [address] 93948- 4150 Feb, [facility], [place] [id number] [place] [address] 25901- 0132 Feb, [facility], [place] [address] 51643- 6339 Feb, [facility], [place] [id number] [place] [address] 26347- 6911 Feb, [facility], [place] [id number] [place] [address] 88171- 1977 Jan, [facility], [place] [id number] [place] [address] 33833- 2018 Jan, [facility], [place] [id number] [place] [address] 61634- 5910 Dec, Venous insufficiency 459.81 [facility], [place] [id number] [place] [address] 35432- 9301 Dec, [facility], [place] [id number] [place] [address] 07829- 0660 Dec, [facility], [place] [id number] [place] [address] 41319- 9221 Dec, Coronary atherosclerosis of unspecified type of vessel, rampart or graft 414.00 ; Unspecified anemia 285.9 and Generalized osteoarthrosis , unspecified site 715.00 [facility] [place] [address] [id number] [address] Nov, [facility] [place] [id number] [place] [address]109 Nov, [facility] [place] [address] [id number] [address] 6[address] Nov, [facility] [place] [address] [address] [address] October, [facility] [address] [id number] [address] October, Acute bronchitis 466.0 and Shortness of breath 786.05 [facility] [address] [facility] [id number] [place] [address] 6844 Sep, [facility] [address] [facility] [id number] [place] [address]- 6479 Sep, [facility] [address] [id number] [address] 43[address] Aug, [facility] [id number] [address] 60[address] Aug, [facility] [id number] [address] 78[address] Jul, [facility] [id number] [address] Jul, [facility] [address] [id number] [address] 3[address] Jul, [facility] [id number] [address] 7[address] Jul, [facility] [address]005[address] [address]- 4083 Jun, [facility] [address] [id number] [address] 8530 Jun, [facility] [address] [id number] [address]- 7985 Jun, [facility] [address] [id number] [address] 1297 Jun, [facility] [place] [facility] [address] [id number] [address] 8887 Jun, [facility] [id number] [address]- 2051 05 Jun, 2014 [facility] [place] [facility] [address] [id number] [place] [address]- 5793 May, [facility] [place] [facility] [address] [id number] [place] [address]- 9691 May, [facility] [place] [facility] [address] [id number] [place] [address]- 1899 May, [facility] [place] [facility] [address] [id number] [place] [address]- 8994 May, [facility] [place] [facility] [address] [id number] [place] [address]- 9560 Apr, [facility] [place] [facility] [address] [id number] [place] [address]- 4714 Apr, [facility] [place] [facility] [address] [id number] [place] [address]- 2932 Apr, [facility] [place] [facility] [address] [id number] [place] [address]- 4574 Apr, [facility] [place] [facility] [address] [id number] [place] [address]- 8697 Apr, [facility] [place] [facility] [address] [facility] [id number] [place] [address]- 9595 Apr, [facility] [place] [facility] [address] [id number] [place] [address]- 2284 Mar, [facility] [place] [facility] [address] [id number] [place] [address]- 0367 Mar, [facility] [place] [facility] [address] [id number] [place] [address]- 1495 Mar, [facility] [place] [facility] [address] [id number] [place] [address]- 7214 Mar, [facility] [place] [facility] [address] [facility] [id number] [place] [address]- 6675 Mar, [facility] [place] [facility] [address] [id number] [place] [address]- 5451 Mar, [facility] [place] [facility] [address] [id number] [place] [address]- 1455 Mar, [facility] [place] [facility] [address] [id number] [place] [address]- 9281 Mar, [facility] [place] [facility] [address] [id number] [place] [address]- 9933 Feb, [facility] [place] [facility] [address] [id number] [place] [address]- 0973 Feb, [facility] [place] [facility] [address] [id number] [place] [address]- 2828 Jan, [facility] [place] [facility] [address] [id number] [place] [address]- 7628 Jan, [facility] [place] [facility] [address] [id number] [place] [address]- 7851 Jan, [facility] [place] [facility] [address] [id number] [place] [address]- 7204 Jan, [facility] [place] [facility] [address] [id number] [place] [address]- 4843 Jan, [facility] [place] [facility] [address] [id number] [place] [address]- 3674 Jan, [facility] [place] [facility] [address] [id number] [place] [address]- 4889 Dec, [facility] [place] [facility] [address] [id number] [place] [address]- 2705 Dec, [facility] [place] [facility] [address] [id number] [place] [address]- 4208 Dec, [facility] [place] [facility] [address] [id number] [place] [address]- 4454 Dec, [facility] [place] [facility] [address] [id number] [place] [address]- 0234 Nov, [facility] [place] [facility] [address] [id number] [place] [address]- 9553 Nov, [facility] [place] [facility] [address] [id number] [place] [address]- 4800 Nov, [facility] [place] [facility] [address] [id number] [place] [address]- 3051 Nov, [facility] [place] [facility] [address] [id number] [place] [address]- 1219 Nov, [facility] [place] [facility] [address] [id number] [place] [address]- 0265 Nov, [facility] [place] [facility] [address] [id number] [place] [address]- 4534 Nov, [facility] [place] [facility] [address] [id number] [place] [address]- 7315 Nov, [facility] [place] [facility] [address] [id number] [place] [address]- 4144 Nov, [facility] [place] [facility] [address] [id number] [place] [address]- 8672 Nov, [facility] [place] [facility] [address] [id number] [place] [address]- 7322 Nov, [facility] [place] [facility] [address] [id number] [place] [address]- 4796 Nov, [facility] [place] [facility] [address] [id number] [address]- 7168 October, [facility] [place] [facility] [address] [id number] [place] [address]- 2607 October, [facility] [place] [facility] [address] [id number] [place] [address]- 1001 October, [facility] [place] [facility] [address] [id number] [place] [address]- 5637 October, [facility] [place] [facility] [address] [id number] [place] [address]- 5878 October, [facility] [address] [id number] [place] [address]- 4892 October, [facility] [address] [id number] [place] [address]- 0041 October, [facility] [address] [id number] [place] [address]- 6050 October, [facility] [place] [facility] [address] [id number] [place] [address]- 7046 October, [facility] [address] [id number] [place] [address]- 0592 Sep, [facility] [address] [id number] [place] [address]- 2384 Sep, [facility] [address] [id number] [place] [address]- 8111 Sep, [facility] [address] [id number] [place] [address]- 8368 Sep, [facility] [address] [id number] [place] [address]- 7307 Sep, [facility] [address] [id number] [place] [address]- 4960 Sep, [facility] [address] [id number] [place] [address]- 8029 Aug, [facility] [place] [facility] [address] [id number] [place] [address]- 0224 Aug, [facility] [place] [facility] [address] [id number] [place] [address]- 1587 Aug, [facility] [place] [facility] [address] [id number] [place] [address]- 8412 Aug, [facility] [place] [facility] [address] [id number] [place] [address]- 6542 Aug, [facility] [place] [facility] [address] [id number] [place] [address]- 4110 Aug, [facility] [place] [facility] [address] [id number] [place] [address]- 9237 Aug, [facility] [place] [facility] [address] [id number] [place] [address]- 6894 Aug, [facility] [place] [facility] [address] [id number] [place] [address]- 7542 Aug, [facility] [place] [facility] [address] [id number] [place] [address]- 7516 Aug, [facility] [place] [facility] [address] [id number] [place] [address]- 7989 Jul, [facility] [place] [facility] [address] [id number] [place] [address]- 5086 Jul, [facility] [place] [facility] [address] [id number] [place] [address]- 5828 Jun, [facility] [place] [facility] [address] [id number] [place] [address]- 9680 Jun, [facility] [place] [facility] [address] [id number] [place] [address]- 6175 Jun, [facility] [place] [facility] [address] [id number] [place] [address]- 8820 Jun, [facility] [place] [facility] [address] [id number] [address]- 8379 Jun, [facility] [place] [facility] [address] [id number] [place] [address]- 3785 Jun, [facility] [place] [facility] [address] [id number] [place] [address]- 3307 Jun, [facility] [place] [facility] [address] [id number] [place] [address]- 6362 Jun, [facility] [place] [facility] [address] [id number] [address]- 0478 May, [facility] [place] [facility] [address] [id number] [place] [address]- 5111 May, [facility] [place] [facility] [address] [facility] [id number] [place] [address]- 2497 May, [facility] [place] [facility] [address] [facility] [id number] [place] [address]- 0410 May, [facility] [place] [facility] [address] [id number] [place] [address]- 1568 May, [facility] [place] [facility] [address] [facility] [id number] [place] [address]- 2408 May, [facility] [place] [facility] [address] [facility] [id number] [place] [address]- 4412 May, [facility] [place] [facility] [address] [id number] [address]- 1399 May, [facility] [place] [facility] [address] [facility] [id number] [place] [address]- 5156 May, [facility] [place] [facility] [address] [id number] [address]- 8491 Apr, [facility] [place] [facility] [address] [facility] [id number] [place] [address]- 3910 Apr, [facility] [place] [facility] [address] [facility] [id number] [address]- 9751 Apr, [facility] [place] [facility] [address] [facility] [id number] [address]- 1990 Apr, [facility] [place] [facility] [address] [facility] [id number] [address]- 1856 Mar, [facility] [place] [facility] [address] [facility] [id number] [address]- 0978 Mar, [facility] [place] [facility] [address] [id number] [address]- 0321 Mar, [facility] [place] [facility] [address] [id number] [place] [address]- 6553 30 Mar, 2012 [facility] [place] [facility] [address] [id number] [place] [address]- 0670 30 Mar, 2012 [facility] [place] [facility] [address] [id number] [place] [address]- 9984 30 Mar, 2012 [facility] [place] [facility] [address] [id number] [place] [address]- 0423 29 Mar, 2012 [facility] [place] [facility] [address] [id number] [place] [address]- 0112 29 Mar, 2012 [facility] [place] [facility] [address] [id number] [place] [address]- 8304 Mar, 2012 [facility] [place] [facility] [address] [id number] [place] [address]- 6422 25 Mar, 2012 [facility] [place] [facility] [address] [id number] [place] [address]- 7965 18 Mar, 2012 [facility] [place] [facility] [address] [id number] [place] [address]- 1879 18 Mar, 2012 [facility] [place] [facility] [address] [id number] [place] [address]- 6843 18 Mar, 2012 [facility] [place] [facility] [address] [id number] [place] [address]- 9018 18 Mar, 2012 [facility] [place] [facility] [address] [id number] [place] [address]- 1029 18 Mar, 2012 [facility] [place] [facility] [address] [id number] [place] [address]- 2480 18 Mar, 2012 [facility] [place] [facility] [address] [id number] [place] [address]- 6176 17 Mar, 2012 [facility] [place] [facility] [address] [id number] [place] [address]- 4445 17 Mar, 2012 [facility] [place] [facility] [address] [id number] [place] [address]- 3701 15 Mar, 2013 [facility] [place] [facility] [address] [id number] [place] [address]- 4166 15 Mar, 2013 [facility] [place] [facility] [address] [id number] [place] [address]- 3856 14 Mar, 2013 [facility] [place] [facility] [address] [id number] [place] [address]- 6139 14 Mar, 2013 [facility] [place] [facility] [address] [id number] [place] [address]- 0992 14 Mar, 2013 [facility] [place] [facility] [address] [id number] [place] [address]- 6905 14 Mar, 2013 [facility] [place] [facility] [address] [id number] [place] [address]- 8968 12 Mar, 2013 [facility] [place] [facility] [address] [id number] [place] [address]- 4969 11 Mar, 2013 [facility] [place] [facility] [address] [id number] [address]- 0500 11 Mar, 2013 [facility] [place] [facility] [address] [id number] [place] [address]- 2454 10 Mar, 2013 [facility] [place] [facility] [address] [id number] [address]- 4269 10 Mar, 2013 [facility] [place] [facility] [address] [id number] [place] [address]- 7300 10 Mar, 2012 [facility] [place] [facility] [address] [id number] [address]- 6601 10 Mar, 2013 [facility] [place] [facility] [address] [id number] [place] [address]- 9800 04 Mar, 2013 [facility] [place] [facility] [address] [id number] [address]- 0559 Mar, [facility] [place] [facility] [address] [id number] [address]- 7072 27 Feb, 2013 [facility] [place] [facility] [address] [id number] [place] [address]- 0767 11 Feb, 2013 [facility] [place] [facility] [address] [id number] [place] [address]- 2067 Feb, [facility] [place] [facility] [address] [id number] [place] [address] 2546 Feb, [facility] [place] [facility] [address] [id number] [place] [address]- 4237 Jan, [facility] [place] [facility] [address] [id number] [place] [address]- 4626 Jan, [facility] [place] [facility] [address] [id number] [place] [address]- 9448 Jan, [facility] [place] [facility] [address] [id number] [place] [address]- 1766 Jan, [facility] [place] [facility] [address] [id number] [place] [address]- 7249 Jan, [facility] [place] [facility] [address] [id number] [place] [address]- 2495 Jan, [facility] [place] [facility] [address] [id number] [place] [address]- 2801 Dec, [facility] [place] [facility] [address] [id number] [place] [address]- 6492 Dec, [facility] [place] [facility] [address] [id number] [place] [address]- 1379 Dec, [facility] [place] [facility] [address] [id number] [place] [address]- 2545 Dec, [facility] [place] [facility] [address] [id number] [place] [address]- 7419 Dec, [facility] [place] [facility] [address] [id number] [place] [address]- 2542 Dec, [facility] [place] [facility] [address] [id number] [place] 7864 Dec, [facility] [place] [facility] [address] [id number] [place] [address]- 9784 Dec, [facility] [address] [id number] [place] [address]- 7423 Dec, [facility] [address] [id number] [place] [address]- 9890 Dec, [facility] [place] [facility] [address] [id number] [place] [address]- 3394 Dec, [facility] [address] [id number] [place] [address]- 8754 October, [facility] [address] [id number] [place] [address]- 7809 October, [facility] [address] [id number] [place] [address]- 8265 October, [facility] [address] [id number] [place] [address]- 3595 October, [facility] [address] [id number] [place] [address]- 8350 Sep, [facility] [address] [id number] [place] [address]- 9511 Sep, [facility] [address] [id number] [place] [address]- 5641 Sep, [facility] [address] [id number] [place] [address]- 6586 Sep, [facility] [address] [id number] [place] [address]- 7365 Sep, [facility] [place] [facility] [address] [id number] [place] [address]- 9941 16 Sep, 2012 [facility] [address] [id number] [place] [address]- 8538 15 Sep, 2012 [facility] [address] [id number] [place] [address]- 2474 14 Sep, 2012 [facility] [place] [address] [facility] [id number] [place] [address]- 9775 Sep, [facility] [place] [address] [facility] [id number] [address]- 3722 Sep, [facility] [place] [address] [facility] [id number] [place] [address]- 5155 Sep, IMMUNIZATIONS No Known Immunizations SOCIAL HISTORY Never Assessed REASON FOR VISIT Percocet due 12/05 PLAN OF CARE VITAL SIGNS MEDICATIONS Medication Instructions Dosage Frequency Start Date End Date Duration Status Percocet 7.5-325 MG Orally 3 times a day 1 tablet 8h Nov, 28 days Active RESULTS No Results PROCEDURES [...] problems 09/2015 Hospitalization History Acute dyspnea, muscle cramps--[facility] 03/04/16 Hospitalization History RLE Cellulitis, Hypokalemia, anemia-[facility] 09/29/15 Hospitalization History Lower edema 09/2016 Hospitalization History Received stitches ER 10/2016
[2018-03-20] VITALS (19 sets, daily range): BP systolic 134–186; BP diastolic 64–96
[2018-03-20 00:17] LABS: BASOPHILS % (AUTO) 0 % (0-10); EOSINOPHILS # (AUTO) 0.3 10^3/uL (0.0-0.3); EOSINOPHILS % (AUTO) 5 % (0-10); HEMATOCRIT 29 % (35-52); LYMPHOCYTES # (AUTO) 1.1 X 10^3 (1.0-4.0); LYMPHOCYTES % (AUTO) 17 % (12-44); MEAN CORPUSCULAR HEMOGLOBIN 31 PG (25-34); MEAN CORPUSCULAR HGB CONC 31 G/DL (32-36); MEAN CORPUSCULAR VOLUME 99 FL (80-99); MEAN PLATELET VOLUME 8.9 FL (7.4-10.4); MONOCYTES # (AUTO) 0.5 X 10^3 (0.0-1.0); MONOCYTES % (AUTO) 7 % (0-12); NEUTROPHILS # (AUTO) 4.8 X 10^3 (1.8-7.8); NEUTROPHILS % (AUTO) 71 % (42-75); PLATELET COUNT 183 10^3/uL (130-400); RED BLOOD COUNT 2.95 10^6/uL (4.35-5.85); RED CELL DISTRIBUTION WIDTH 13.9 % (10.0-14.5); WHITE BLOOD COUNT 6.7 10^3/uL (4.3-11.0)
[2018-03-20 00:31] LABS: ALANINE AMINOTRANSFERASE 11 U/L (0-55); ALBUMIN 3.4 GM/DL (3.2-4.5); ALKALINE PHOSPHATASE 93 U/L (40-136); BILIRUBIN,TOTAL 0.2 MG/DL (0.1-1.0); BUN/CREATININE RATIO 13; CALCIUM 9.2 MG/DL (8.5-10.1); CARBON DIOXIDE 30 MMOL/L (21-32); CHLORIDE 99 MMOL/L (98-107); CREATININE SERUM 1.07 MG/DL (0.60-1.30); GFR ESTIMATED 52; GLUCOSE 125 MG/DL (70-105); POTASSIUM 3.6 MMOL/L (3.6-5.0); SODIUM 143 MMOL/L (135-145); TOTAL PROTEIN 7.4 GM/DL (6.4-8.2)
[2018-03-20 00:36] LABS: BILIRUBIN,URINE NEGATIVE (NEGATIVE); CLARITY,URINE CLEAR; COLOR,URINE YELLOW; GLUCOSE, URINE (UA) NEGATIVE (NEGATIVE); KETONES,URINE NEGATIVE (NEGATIVE); LEUKOCYTE ESTERASE ,URINE 1+ (NEGATIVE); NITRITE,URINE NEGATIVE (NEGATIVE); PH,URINE 8 (5-9); PROTEIN,URINE NEGATIVE (NEGATIVE); UROBILINOGEN,URINE NORMAL (NORMAL)
[2018-03-20 00:37] LABS: FIBRIN DEGRADATION PRODUCTS 2.65 UG/ML (0.00-0.49); PROTHROMBIN TIME PATIENT 13.2 SEC (12.2-14.7)
[2018-03-20 00:43] LABS: BACTERIA,URINE FEW /HPF; SQUAMOUS EPITHELIAL CELL,UR RARE /HPF
[2018-03-20 00:44] LABS: YEAST,URINE FEW /HPF
[2018-03-20] MEDS ORDERED: LABETALOL HCL 20 MG/4 ML VIAL IV ONE (02:00)
[2018-03-20 02:47] LABS: ABG BASE EXCESS 11.3 MMOL/L (-2.5-2.5); ABG OXYGEN SATURATION 94 % (94-100); ABG PCO2 52 MMHG (35-45); ABG PH 7.46 (7.37-7.43); ABG PO2 66 MMHG (79-93); ABG TCO2 37.3 MMOL/L (21.0-31.0)
[2018-03-20 02:49] LABS: ALLENS TEST YES-POS; INSPIRED O2 2L; PATIENT TEMP 99.1; VENTILATOR NO
[2018-03-20 02:56] LABS: FREE T4 (FREE THYROXINE) 1.2 NG/DL (0.70-1.48)
--- NOTE | 2018-03-20 03:12 | ED General ---
General Chief Complaint: General Problems/Pain Stated Complaint: LEG PAIN Nursing Triage Note: LEG PAIN, AMS Nursing Sepsis Screen: Possible Sepsis Risk Source of Information: Patient Exam Limitations: No Limitations History of Present Illness Date Seen by Provider: Mar 19, 2018 Time Seen by Provider: 23:40 Initial Comments This 62-year-old woman presents to the emergency room via EMS with primary complaint of left leg pain. This is an acute exacerbation of chronic pain. However, I'm also concerned about her mental status. She seems to be hypersomnolent and having some difficulty collecting her thoughts. Patient's daughter states she has had about 4 episodes of this type of behavior over the past several weeks. This is the worst episode she has had. Patient was also seen at the end of January in the ER for some generalized pain complaints. She has had some adjustments in her fentanyl patch dosing. Her 100 g patch was dropped to 75 g. She is back up to 100 g now. Patient is afebrile. She doesn't have any complaints of acute signs or symptoms of infectious illness. Allergies and Home Medications Allergies Coded Allergies: ceftriaxone (Verified Allergy, Unknown, 08/02/17) ibuprofen (Verified Allergy, Unknown, PT TAKES ASA AT HOME, 08/02/17) PER [facility] Home Medications Aspirin 81 Mg Tab.chew, 81 MG PO DAILY, (Reported) Atorvastatin Calcium 80 Mg Tablet, 80 MG PO HS, (Reported) Bimatoprost 2.5 Ml Drops, 1 DROP OP HS, (Reported) Fentanyl 1 Each Patch.td72, 100 MCG TD EVERY 72 HOURS, (Reported) Hydrocodone/Acetaminophen 1 Each Tablet, 1-2 EACH PO Q4H Prescribed by: ZACH MOORE on 08/05/17 1301 Isosorbide Mononitrate 30 Mg Tab.er.24h, 30 MG PO DAILY, (Reported) Metformin HCl 500 Mg Tablet, 500 MG PO BID, (Reported) Metoprolol Tartrate 25 Mg Tablet, 25 MG PO BID, (Reported) Omeprazole 40 Mg Capsule.dr, 40 MG PO DAILY, (Reported) Potassium Chloride 20 Meq Tablet.er, 20 MEQ PO BID, (Reported) Patient Home Medication List Home Medication List Reviewed: Yes Review of Systems Review of Systems Constitutional: no symptoms reported EENTM: no symptoms reported Respiratory: no symptoms reported Cardiovascular: no symptoms reported Gastrointestinal: no symptoms reported Genitourinary: no symptoms reported : No Musculoskeletal: see HPI Skin: no symptoms reported Psychiatric/Neurological: See HPI Hematologic/Lymphatic: No Symptoms Reported Past Wwtjhdf-Yhemms-Dgjocz Hx Past Med/Social Hx: Reviewed Nursing Past Med/Soc Hx Patient Social History Alcohol Use: Denies Use Recreational Drug Use: No Smoking Status: Former Smoker 2nd Hand Smoke Exposure: No Recent Foreign Travel: No Contact w/Someone Who Travel: No Recent Infectious Disease Expo: No Recent Hopitalizations: No Immunizations Up To Date Tetanus Booster (TDap): Unknown Date of Pneumonia Vaccine: Mar 13, 2013 Date of Influenza Vaccine: Mar 28, 2017 Seasonal Allergies Seasonal Allergies: No Past Medical History Surgeries: Yes Abdominal, Adenoidectomy, Bowel Surgery, Cardiac, Coronary Stent, Eye Surgery, Gallbladder, Tonsillectomy, Tubal Ligation Respiratory: Yes (CHRONIC DYSPNEA--USES O2 AT HOME, ESPECIALLY AT NIGHT) Sleep Apnea, COPD Cardiac: Yes (TACHYCARDIA, STENTS X 1, CHF) Atrial Fibrillation, Chronic Edema/Swelling, Coronary Artery Disease, Deep Vein Thrombosis, Heart Attack, High Cholesterol, Hypertension Neurological: No : No 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 Disorders: No Female 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 Disorders: Denies 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, 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 Sexually Transmitted Disease: No HIV/AIDS: No Genitourinary: Yes UTI-Chronic Gastrointestinal: Yes Abdominal Hernia, Diverticulosis, Polyps Musculoskeletal: Yes (CHRONIC GENERALIZED PAIN--NARCOTIC-DEPENDENT) Degenerate Disk Disease, Arthritis, Chronic Back Pain Endocrine: Yes (MORBID OBESITY) Hypothyroidsim, Diabetes, Non-Insulin dep HEENT: Yes Cataract, Glaucoma Loss of Vision: Denies Hearing Impairment: Denies Cancer: Yes (SQUAMOUS CELL SKIN CANCER RIGHT CHEEK 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) Skin, Colon Did You Recieve Any Treatments: Yes What Type of Treatment Did You: Surgical Intervention Psychosocial: No Integumentary: Yes (CELLULITIS; SKIN CANCER; BEDBUGS) Eczema Blood Disorders: Yes (CHRONIC ANEMIA) Adverse Reaction/Blood Tranf: No (HAS HAD BLOOD WITH NO REACTION) Family Medical History Reviewed Nursing Family Hx Cancer 03 MOTHER, Onset:40's - 50 Family history: Cardiovascular disease 03 FATHER, Onset:40's - 50 03 MOTHER, Onset:30's - 40 Myocardial infarction 03 MOTHER, Onset:30's - 40 No Pertinent Family Hx Physical Exam Vital Signs Vital Signs - First Documented 03/19/18 23:43 Temp 99.3 Pulse 101 Resp 20 B/P (MAP) 200/93 (128) Pulse Ox 94 O2 Delivery Room Air O2 Flow Rate 2.00 Capillary Refill : Less Than 3 Seconds Height, Weight, BMI Height: 5'2.00" Weight: 375lbs. 2.0oz. [id number]; 51.2 BMI Method:Stated General Appearance: WD/WN, Mild Distress, Obese HEENT: PERRL/EOMI, Normal ENT Inspection Neck: Normal Inspection Respiratory: Lungs Clear, Normal Breath Sounds, No Accessory Muscle Use, No Respiratory Distress Cardiovascular: Regular Rate, Rhythm, No Edema, No Murmur Gastrointestinal: Normal Bowel Sounds, Non Tender, Soft Extremity: Normal Capillary Refill, No Pedal Edema, Other (chronic skin changes on the extremities. Shallow ulcerative wound on the right lateral lower leg. No specific focal tenderness in the left leg) Neurologic/Psychiatric: Alert, Oriented x3, No Motor/Sensory Deficits, Normal Mood/Affect, Other (dysarthria noted. No other focal deficits.) Skin: Normal Color, Warm/Dry Procedures/Interventions Suture Size: 4-0 Progress/Results/Core Measures Suspected Sepsis Recent Fever Within 48 Hours: Yes Infection Criteria Present: Suspected New Infection New/Unexplained Altered Menta: No Sepsis Screen: Possible Sepsis Risk SIRS Temperature:99.3 Pulse: 101 Respiratory Rate: 20 Laboratory Tests 03/20/18 00:10: White Blood Count 6.7 Blood Pressure 200 /93 Mean: 128 Laboratory Tests 03/20/18 00:10: Creatinine 1.07, INR Comment 1.0, Platelet Count 183, Total Bilirubin 0.2 Results/Orders Lab Results Laboratory Tests Test 03/20/18 00:10 03/20/18 00:29 03/20/18 02:38 Range/Units White Blood Count 6.7 4.3-11.0 10^3/uL Red Blood Count 2.95 L 4.35-5.85 10^6/uL Hemoglobin 9.0 L 11.5-16.0 G/DL Hematocrit 29 L 35-52 % Mean Corpuscular Volume 99 80-99 FL Mean Corpuscular Hemoglobin 31 25-34 PG Mean Corpuscular Hemoglobin Concent 31 L 32-36 G/DL Red Cell Distribution Width 13.9 10.0-14.5 % Platelet Count 183 130-400 10^3/uL Mean Platelet Volume 8.9 7.4-10.4 FL Neutrophils (%) (Auto) 71 42-75 % Lymphocytes (%) (Auto) 17 12-44 % Monocytes (%) (Auto) 7 0-12 % Eosinophils (%) (Auto) 5 0-10 % Basophils (%) (Auto) 0 0-10 % Neutrophils # (Auto) 4.8 1.8-7.8 X 10^3 Lymphocytes # (Auto) 1.1 1.0-4.0 X 10^3 Monocytes # (Auto) 0.5 0.0-1.0 X 10^3 Eosinophils # (Auto) 0.3 0.0-0.3 10^3/uL Basophils # (Auto) 0.0 0.0-0.1 10^3/uL Prothrombin Time 13.2 12.2-14.7 SEC INR Comment 1.0 0.8-1.4 Activated Partial Thromboplast Time 23 L 24-35 SEC D-Dimer 2.65 H 0.00-0.49 UG/ML Sodium Level 143 135-145 MMOL/L Potassium Level 3.6 3.6-5.0 MMOL/L Chloride Level 99 98-107 MMOL/L Carbon Dioxide Level 30 21-32 MMOL/L Anion Gap 14 5-14 MMOL/L Blood Urea Nitrogen 14 7-18 MG/DL Creatinine 1.07 0.60-1.30 MG/DL Estimat Glomerular Filtration Rate 52 BUN/Creatinine Ratio 13 Glucose Level 125 H 70-105 MG/DL Calcium Level 9.2 8.5-10.1 MG/DL Corrected Calcium 9.7 8.5-10.1 MG/DL Total Bilirubin 0.2 0.1-1.0 MG/DL Aspartate Amino Transf (AST/SGOT) 14 5-34 U/L Alanine Aminotransferase (ALT/SGPT) 11 0-55 U/L Alkaline Phosphatase 93 40-136 U/L Troponin I < 0.30 <0.30 NG/ML Total Protein 7.4 6.4-8.2 GM/DL Albumin 3.4 3.2-4.5 GM/DL Thyroid Stimulating Hormone (TSH) 2.59 0.35-4.94 UIU/ML Free Thyroxine 1.20 0.70-1.48 NG/DL Urine Color YELLOW Urine Clarity CLEAR Urine pH 8 5-9 Urine Specific [place] 1.010 L 1.016-1.022 Urine Protein NEGATIVE NEGATIVE Urine Glucose (UA) NEGATIVE NEGATIVE Urine Ketones NEGATIVE NEGATIVE Urine Nitrite NEGATIVE NEGATIVE Urine Bilirubin NEGATIVE NEGATIVE Urine Urobilinogen NORMAL NORMAL MG/DL Urine Leukocyte Esterase 1+ H NEGATIVE Urine RBC (Auto) NEGATIVE NEGATIVE Urine RBC NONE /HPF Urine WBC 2-5 /HPF Urine Squamous Epithelial Cells RARE /HPF Urine Crystals NONE /LPF Urine Bacteria FEW H /HPF Urine Casts NONE /LPF Urine Mucus NEGATIVE /LPF Urine Yeast FEW H /HPF Urine Culture Indicated YES Blood Gas Puncture Site R RAD Blood Gas Patient Temperature 99.1 Arterial Blood pH 7.46 H 7.37-7.43 Arterial Blood Partial Pressure CO2 52 H 35-45 MMHG Arterial Blood Partial Pressure O2 66 L 79-93 MMHG Arterial Blood HCO3 36 H 23-27 MMOL/L Arterial Blood Total CO2 37.3 H 21.0-31.0 MMOL/L Arterial Blood Oxygen Saturation 94 94-100 % Arterial Blood Base Excess 11.3 H -2.5-2.5 MMOL/L Blake Test YES-POS Blood Gas Ventilator Setting NO Blood Gas Inspired Oxygen 2L My Orders Orders - ELE PEREYRA MD Cbc With Automated Diff (03/19/18 23:46) Comprehensive Metabolic Panel (03/19/18 23:46) Ua Culture If Indicated (03/19/18 23:46) Saline Lock/Iv-Start (03/19/18 23:46) Protime With Inr (03/20/18 00:08) Partial Thromboplastin Time (03/20/18 00:08) Fibrin Degradation Products (03/20/18 00:08) Troponin I (03/20/18 00:08) Chest 1 View, Ap/Pa Only (03/20/18 00:08) Catheter(Urinary) Insert & Ass 03,15 (03/20/18 00:08) Ekg Tracing (03/20/18 00:08) Accucheck Stat ONCE (03/20/18 00:08) Vital Signs Stroke Patient Q15M (03/20/18 00:08) Ct Head Wo-R/O Stroke (03/20/18 00:08) O2 (03/20/18 00:08) Intake & Output 06,14,22 (03/20/18 00:08) Monitor-Rhythm Ecg Trace Only (03/20/18 00:08) Dysphagia Screening Tool (03/20/18 00:08) Post Thrombolytic Adminstratio (03/20/18 00:08) Lipid Panel (03/21/18 06:00) Urine Culture (03/20/18 00:29) Labetalol Injection (Normodyne Injection (03/20/18 02:00) Thyroid Stimulating Hormone (03/20/18 02:20) Free T4 (Free Thyroxine) (03/20/18 02:20) Arterial Blood Gas (03/20/18 02:21) Arterial Blood Draw (03/20/18 ) Medications Given in ED Current Medications Medications Dose Ordered Sig/Giuseppe Route Start Time Stop Time Status Last Admin Dose Admin Labetalol HCl 10 mg ONCE ONCE IV 03/20/18 02:00 03/20/18 02:01 DC 03/20/18 01:50 10 MG Vital Signs/I&O 03/19/18 03/19/18 03/20/18 03/20/18 23:43 23:43 03:17 03:36 Temp 99.3 98.6 98.0 Pulse 101 76 75 Resp 20 16 20 B/P (MAP) 200/93 (128) 156/69 (98) 175/79 (111) Pulse Ox 94 96 94 O2 Delivery Room Air Nasal Cannula Nasal Cannula Nasal Cannula O2 Flow Rate 2.00 3.00 3.00 03/20/18 03/20/18 03/20/18 03/20/18 03:39 03:45 04:00 04:15 Pulse 76 73 76 75 Resp 19 18 21 B/P (MAP) 153/80 (104) 165/80 (108) 174/85 (114) Pulse Ox 96 98 97 O2 Delivery Nasal Cannula Nasal Cannula Nasal Cannula O2 Flow Rate 3.00 3.00 3.00 03/20/18 03/20/18 03/20/18 03/20/18 04:30 04:45 04:58 05:00 Pulse 69 77 80 70 Resp 18 10 13 16 B/P (MAP) 179/86 (117) 158/77 (104) 134/64 (87) Pulse Ox 99 71 97 96 O2 Delivery Nasal Cannula Nasal Cannula OxyMask OxyMask O2 Flow Rate 3.00 3.00 4.00 4.00 03/20/18 03/20/18 05:05 05:15 Pulse 77 74 Resp 12 13 B/P (MAP) 155/73 (100) Pulse Ox 99 92 O2 Delivery OxyMask OxyMask O2 Flow Rate 5.00 5.00 Capillary Refill : Less Than 3 Seconds Blood Pressure Mean: 128 Point of Care Testing Finger Stick Blood Glucose: 125 Blood Glucose Action Taken: PER LAB Progress Note : Time: 03:00 Progress Note No definitive etiology for patient's altered mental status was determined in the ER workup. Possible causes to consider include hypercarbia, medication effect, and hypertensive encephalopathy. Patient did seem to improve with blood pressure control and did state that she felt better after receiving labetalol. Blood pressure did improve significantly after that dose. ABG was pursued and did show some hypercarbia. However, BiPAP was not initiated as patient was subjectively improving throughout her ER stay. Patient's daughter states that she previously was prescribed CPAP at home but quit using it, and it was therefore discontinued. She had difficulty finding an appropriately fitting mask. UA did show some minimal bacteria and WBCs, but not enough to be convinced that there was significant urinary tract infection causing her symptoms. Interestingly, the leg pain improved as her blood pressure improved. Case was discussed with Dr. Quan who believe it was most appropriate to admit the patient while sorting out the causes of her mental status change. PRN orders for labetalol were added to the bridging orders to manage the hypertension. A stroke activation was paged out after initial assessment. However, NIH stroke score was only 1 as performed by this provider. After I was able to sit her up and encouraged her to focus on the exam, she had only minimal deficits of dysarthria. Performance of some of the physical components of the exam was limited due to her body habitus and general physical condition. Patient's fentanyl patch was removed early in her ER stay. Patient did have a Cano catheter placed during the ER stay and urine collection was from the Cano. However, she later demanded to have it removed. ECG Initial ECG Impression Date: Mar 20, 2018 Initial ECG Impression Time: 00:31 Initial ECG Rate: 86 Initial ECG Rhythm: Normal Sinus Initial ECG Impression: Normal Comment Normal sinus rhythm with no ST elevation or depression. No abnormal intervals or axis deviation. Diagnostic Imaging Diagonstic Imaging: Xray Plain Films/CT/US/NM/MRI: chest Comments Chest x-ray was viewed by me. Report not yet available. Exam was of limited utility due to patient's body habitus and positioning. Diagonstic Imaging: CT Plain Films/CT/US/NM/MRI: head Comments CT head viewed by me and [facility] report reviewed. Discussed with radiologist. There were motion artifact limitations but no acute abnormalities were appreciated. Departure Communication (Admissions) Time/Spoke to Admitting Phy: 02:12 Dr. Quan Impression Primary Impression: Altered mental status Qualified Codes: R41.82 - Altered mental status, unspecified Additional Impressions: Hypertensive urgency Left leg pain Disposition: ADMITTED INPATIENT Condition: Improved Admissions Decision to Admit Reason: Admit from ER (General) Decision to Admit/Date: Mar 20, 2018 Time/Decision to Admit Time: 02:12 Departure-Patient Inst. Referrals: JAN HERNANDEZ MD (PCP/Family) Primary Care Physician ELE PEREYRA MD Mar 20, 2018 03:11
--- OUTSIDE RECORDS SUMMARY | 2018-03-20 03:14 | XMS REPORT | Clinical Summary ---
Author Author [facility] Organization [facility] Address Unknown Phone Unavailable Care Team Providers Care Restaurant Managing Partner Name Role Phone Erick Sawyer DO Unavailable Alesha Desir MD PCP Source Comments Some departments are not documenting in the electronic medical record. If you do not see the information that you expected, contact Release of Information in the Health Information Management department at [phone] for further assistance in locating additional records.[facility] Allergies Active Allergy Reactions Severity Noted Date [...]
[2018-03-20] MEDS ORDERED: LABETALOL HCL 20 MG/4 ML VIAL IV PRN (06:15)
[2018-03-20] MEDS ORDERED: ONDANSETRON 4 MG/2 ML (SDV) Z0FRAN IV PRN (06:15)
--- NOTE | 2018-03-20 06:54 | Diagnostic Imaging Report ---
INDICATION: Altered mental status. TECHNIQUE: Single frontal view of the chest. COMPARISON: 02/06/2018 FINDINGS: Evaluation is suboptimal due to patient rotation and positioning. There appears to be extensive airspace opacity throughout the right lung, although this may be increased due to rotation. Haziness throughout the lungs is likely in part due to soft tissues. There is dense opacity in the right lung base, may represent infiltrate or effusion. No pneumothorax is seen. There is diffuse osteopenia. IMPRESSION: 1. Suboptimal examination due to patient rotation. Increased airspace opacity in the right lung base may represent infiltrate or effusion, and likely exacerbated by rotation. Dictated by: Dictated on workstation # [id number]
--- NOTE | 2018-03-20 06:56 | Diagnostic Imaging Report ---
INDICATION: Altered mental status. TECHNIQUE: Noncontrast axial CT of the head. COMPARISON: None FINDINGS: There is suboptimal positioning with mild motion artifact, and the scan was repeated. There is mild prominence of the ventricles and cortical sulci. No acute intracranial hemorrhage is seen. No significant midline shift or mass effect is seen. No CT evidence of acute territorial ischemia is identified. There is extensive hyperostosis frontalis. No acute calvarium fracture is seen. The visualized paranasal sinuses appear clear. IMPRESSION: 1. Significant motion artifact, however no acute intracranial hemorrhage or CT evidence of acute territorial ischemia is seen. Findings reported by the preliminary radiology service at 12:40 AM on 03/20/2018. Dictated by: Dictated on workstation # [id number]
[2018-03-20] MEDS ORDERED: FLU QUADRIvalent (5+ YOA) 2018-2019 (AFLURIA) 0.5 ML IM ONE (07:00)
[2018-03-20] MEDS ORDERED: CATHETER FLUSH 10 ML SYR IV PRN (07:00)
[2018-03-20] MEDS ORDERED: RT-ALBUINH INH (09:18)
[2018-03-20] MEDS ORDERED: POTA20TA15 PO (09:18)
[2018-03-20] MEDS ORDERED: ASPI-983 PO (09:53)
[2018-03-20] MEDS ORDERED: CYCL10TA9 PO (09:53)
[2018-03-20] MEDS ORDERED: DIPH1TAB25 PO (09:53)
--- NOTE | 2018-03-20 11:08 | History & Physicial (CHS) ---
DIAMOND MARX 03/20/18 11:08am: HPI History of Present Illness: Limited history due to altered mental status. Patient reportedly came to the ED for leg pain and there was concern with her mental status and hypoxia. She has a fentanyl patch for chronic pain. Family reports she has been admitted in the past for overdosing on the fentanyl patch. Patient also reportedly has an ulcer on the left lateral leg. She does not have good self care, nursing reports finding bugs on her. Patient is very somnolent. She is occasionally arousable and will sometimes answer questions but quickly falls back asleep. She is unable to say why she is in the hospital. When asked if she has had a blood clot in her leg in the past she says yes and it was a long time ago. Patient unable to give any more medical history. Source: patient, RN/MD Exam Limitations: clinical condition (Altered mental status) Date seen by provider: Mar 20, 2018 Time Seen by Provider: 08:30 Attending Physician Loy Dave MD PCP Aden Mckeon MD Consult Date of Admission Mar 20, 2018 at 02:22 Home Medications Home Medications Reviewed patient Home Medication Reconciliation performed by pharmacy medication reconciliations physical therapy technician and/or nursing. Patients Allergies have been reviewed. Allergies Coded Allergies: ceftriaxone (Verified Allergy, Unknown, 08/02/17) ibuprofen (Verified Allergy, Unknown, PT TAKES ASA AT HOME, 08/02/17) PER MED REC UEU-Brshzr-Smdkdm Hx Patient Social History Alcohol Use: Denies Use Recreational Drug Use: No Smoking Status: Former Smoker 2nd Hand Smoke Exposure: No Recent Foreign Travel: No Contact w/other who traveled: No Recent Hopitalizations: No Recent Infectious Disease Expo: No Physical Abuse Screen: No Sexual Abuse: No Immunizations Up To Date Tetanus Booster (TDap): Unknown Date of Pneumonia Vaccine: Mar 13, 2013 Date of Influenza Vaccine: Mar 28, 2017 Past Medical History Medical Hx: 1. COPD with recent evaluation by Dr. Perkins 2. Anemia of Chronic Disease 3. Morbid Obesity 4. Enterocutaneous Fistula history with manager long term care TPA- resolved 5. History of Villous adenoma sp polypectomy 6. DM- uncontrolled 7. CAD with history of PTCA Dr. De Leon 2010 8. A-flutter, possible A-Fib- did not tolerate anticogulant 9. HTN 10. HLP 11. Hypothyroidism 12. Extreme morbid obesity 13. History of DVT with intolerance to anticoagulant 14. Obesity hypoventillation syndrome 15. Chronic hypoxemic respiratory failure on home O2 16. Chronic pain/ narcotic dependent Past Surgical History 1. Infected abdominal mesh/hernia repair/fistula repair 2013 Dr. Zaman 2. Cholecystectomy 3. Tubal ligation 4. Abdominal Wall hernia repair Dr. Jonas 2003 5. D&C- Escobar 2008 6. Colonoscopy with polypectomy for colon ca (villous adenoma) 2005 Pritesh 7. Colonoscopy 2006 Pritesh 8. Tonsillectomy 9. Cardiac Cathaterization with PTCA and stent [id number] Ion to mid LAD Family Medical History Significant Family History: No Pertinent Family Hx Family History: Cancer 03 MOTHER, Onset:40's - 50 Family history: Cardiovascular disease 03 FATHER, Onset:40's - 50 03 MOTHER, Onset:30's - 40 Myocardial infarction 03 MOTHER, Onset:30's - 40 Review of Systems ([facility]) Psychiatric/Neurological: See HPI Other Unable to obtain, patient somnolent. Reviewed Test Results Reviewed Test Results Lab Laboratory Tests Test 03/20/18 02:38 Blood Gas Puncture Site R RAD Blood Gas Patient Temperature 99.1 Arterial Blood pH 7.46 Arterial Blood Partial Pressure CO2 52 MMHG Arterial Blood Partial Pressure O2 66 MMHG Arterial Blood HCO3 36 MMOL/L Arterial Blood Total CO2 37.3 MMOL/L Arterial Blood Oxygen Saturation 94 % Arterial Blood Base Excess 11.3 MMOL/L Blake Test YES-POS Blood Gas Ventilator Setting NO Blood Gas Inspired Oxygen 2L Laboratory Tests 03/20/18 00:10 Physical Exam-([facility]) Physical Exam Vital Signs VS - Last 72 Hours, by Label 03/19/18 03/19/18 03/20/18 03/20/18 23:43 23:43 03:17 03:25 Temp 99.3 98.6 Pulse 101 76 Resp 20 16 B/P (MAP) 200/93 (128) 156/69 (98) Pulse Ox 94 96 96 O2 Delivery Room Air Nasal Cannula Nasal Cannula Nasal Cannula O2 Flow Rate 2.00 3.00 3.00 03/20/18 03/20/18 03/20/18 03/20/18 03:36 03:39 03:45 04:00 Temp 98.0 Pulse 75 76 73 Resp 20 19 B/P (MAP) 175/79 (111) 153/80 (104) Pulse Ox 94 96 98 O2 Delivery Nasal Cannula Nasal Cannula OxyMask O2 Flow Rate 3.00 3.00 5.00 03/20/18 03/20/18 03/20/18 03/20/18 04:00 04:15 04:30 04:45 Pulse 76 75 69 77 Resp 18 21 18 10 B/P (MAP) 165/80 (108) 174/85 (114) 179/86 (117) 158/77 (104) Pulse Ox 98 97 99 71 O2 Delivery Nasal Cannula Nasal Cannula Nasal Cannula Nasal Cannula O2 Flow Rate 3.00 3.00 3.00 3.00 03/20/18 03/20/18 03/20/18 03/20/18 04:58 05:00 05:05 05:15 Pulse 80 70 77 74 Resp 13 16 12 13 B/P (MAP) 134/64 (87) 155/73 (100) Pulse Ox 97 96 99 92 O2 Delivery OxyMask OxyMask OxyMask OxyMask O2 Flow Rate 4.00 4.00 5.00 5.00 03/20/18 03/20/18 03/20/18 03/20/18 05:30 05:45 06:00 06:15 Pulse 79 78 77 74 Resp 15 13 17 19 B/P (MAP) 161/70 (100) 163/79 (107) 153/70 (97) 141/78 (99) Pulse Ox 100 98 100 100 O2 Delivery OxyMask OxyMask OxyMask OxyMask O2 Flow Rate 5.00 5.00 5.00 5.00 03/20/18 03/20/18 03/20/18 03/20/18 06:30 06:45 07:00 08:00 Pulse 74 72 71 Resp 18 17 B/P (MAP) 186/83 (117) 170/88 (115) Pulse Ox 100 98 O2 Delivery OxyMask OxyMask OxyMask O2 Flow Rate 5.00 5.00 5.00 03/20/18 03/20/18 03/20/18 08:00 09:00 09:47 Temp 97.4 Pulse Ox 98 98 O2 Delivery OxyMask OxyMask OxyMask O2 Flow Rate 5.00 5.00 Capillary Refill : Less Than 3 Seconds General Appearance: obese, other (Somnolent. Malodorous.) Respiratory: lungs clear, no accessory muscle use Cardiovascular: regular rate, rhythm, no murmur Extremities: other (Unable to assess possible ulcer on right lateral leg due to altered mental status and the patient is laying on the right leg) Neurologic/Psychiatric: other (Fluctuating level of consciousness. Whe alert, she is oriented to person and place, but not time.) Assessment/Plan Assessment/Plan Admission Dx Altered mental status Reason for Inpatient Admission: Altered mental status Hypoxia Assessment & Plan Altered mental status - Possibly due to overdose on fentanyl patch - Oriented to person and place but not time - Will monitor mental status Hypoxia - Patient has history of COPD, unsure of patient's baseline oxygen requirement, currently on 5 L - CTA chest ordered due to elevated D-dimer and history of DVT Chronic anemia - History of anemia of chronic disease - Hgb of 9, will monitor Clinical Quality Measures DVT/VTE Risk/Contraindication: Risk Factor Score Per Nursin RFS Level Per Nursing on Admit: 4+=Very High LOY DAVE MD 03/20/18 5:58pm: HPI History of Present Illness: Time Seen by Provider: 09:25 Home Medications Allergies Coded Allergies: ceftriaxone (Verified Allergy, Unknown, 08/02/17) ibuprofen (Verified Allergy, Unknown, PT TAKES ASA AT HOME, 08/02/17) PER MED REC BYM-Dpdrfo-Sduzgi Hx Family Medical History Family History: Cancer 03 MOTHER, Onset:40's - 50 Family history: Cardiovascular disease 03 FATHER, Onset:40's - 50 03 MOTHER, Onset:30's - 40 Myocardial infarction 03 MOTHER, Onset:30's - 40 Review of Systems ([facility]) Constitutional: other (unable to obtain due to patient clinical condition) Physical Exam-([facility]) Physical Exam General Appearance: other (Somnolent, makes some movement when called loudly be name, but does not wake up) Respiratory: lungs clear Cardiovascular: regular rate, rhythm, no murmur Neurologic/Psychiatric: other (Fluctuating level of consciousness. Whe alert, she is oriented to person and place, but not time.) Assessment/Plan Assessment/Plan Admission Status: Observation (1) Altered mental status Status: Acute Assessment & Plan: Unclear etiology, head CT normal, labs similar to her baseline including ABG. Her family reports "she does this" sometimes with her fentanyl and dose goes down and then up again due to pain. She did have decreased dose of fentanyl to 75 mcg in January per chart review, increased back to 100 mcg at end of January and also had percocet increased to QID when her fentanyl dose was decreased, and apparently remained increased when fentanyl increased. -Fentanyl patch removed in ER, will hold for now, resume percocet if alert and having pain. Suspect she will need lower dose to prevent recurrences. -Possible UTI- UA not entirely convincing and not meeting sepsis criteria, urine culture pending Qualifiers: Qualified Codes: R41.82 - Altered mental status, unspecified (2) Hypertensive urgency Status: Acute Assessment & Plan: Improved after labetalol. Resume home medications. (3) Chronic anemia Status: Chronic Assessment & Plan: At baseline, last iron studies 10/2016 showed normal iron, TIBC and ferritin, but at times over last several years had low iron, high TIBC and low ferritin. Currently normocytic, suspect anemia of chronic disease, but may have superimposed iron deficiency. 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 If stable, defer to outpatient follow up. (4) Obesity hypoventilation syndrome Status: Chronic Assessment & Plan: Was at one time qualified for vent to mask for home use but stated she would not use so was not set up, she also had cpap previously but did not use and so insurance did not continue coverage. (5) Hypothyroidism Status: Chronic Assessment & Plan: TSH normal on admit, continue home levothyroxine. (6) Hypercapnia Status: Chronic Assessment & Plan: Hypercapneic on admission but similar to previous ABGs, possible contributor to her lethargy, improving this am. Resume home albuterol. (7) Hypoxia Status: Acute Assessment & Plan: ABG similar to previous admissions, unclear baseline oxygen requirement. CTA ordered due to elevated D dimer and hypoxia and lethargy although previously CTA has been negative in similar situation with elevated D dimer and hypoxic hypercapneic respiratory insufficiency. (8) Paroxysmal atrial fibrillation Status: Chronic Assessment & Plan: Not on anticoagulation due to intolerance in past. (9) CAD (coronary artery disease) Status: Chronic (10) Prediabetes Status: Chronic Assessment & Plan: Hold home metformin due to contrast administration. (11) DVT prophylaxis Status: Acute Assessment & Plan: SCDs, hold chemoprophylaxis due to history of anemia requiring transfusion when on anticoagulation Supervisory-Addendum Brief Supervisory Addendum Patient interviewed and examined by me today in addition to MS4 Diamond Marx, agree with documentation except as mine differs. See problem list for my assessment and plan. DIAMOND MARX Mar 20, 2018 11:08 am LOY DAVE MD Mar 20, 2018 5:58 pm
[2018-03-20] MEDS ORDERED: IOHEXOL 350 MG/ML 150 ML (OMNIPAQUE 350) VIAL IV ONE (11:15)
[2018-03-20] MEDS ORDERED: NS 250 ML (IVPB) BAG IV ONE (11:15)
--- NOTE | 2018-03-20 12:39 | Diagnostic Imaging Report ---
PROCEDURE: CT angiography of the chest with contrast. TECHNIQUE: Multiple contiguous axial images were obtained through the chest after uneventful bolus administration of intravenous contrast. 2D reconstructed CTA MIP acquisitions were also performed. INDICATION: Elevated d-dimer. FINDINGS: There is cardiomegaly. There is no pleural effusion or pneumothorax. There is no pneumonia. There is no pathologically enlarged adenopathy in the chest. The thoracic aorta is normal in caliber without evidence of dissection. There are no filling defects seen within the pulmonary arteries to suggest pulmonary embolism. There are degenerative changes in the spine. Note is again made of multiple hypodense lesions in the spleen. Remainder of the intra-abdominal structures are unremarkable. IMPRESSION: 1. Cardiomegaly; however, no evidence of pulmonary embolism. 2. Multiple unchanged hypodense lesions in the spleen. 3. No other acute abnormality in the chest. Dictated by: Dictated on workstation # [id number]
[2018-03-20] MEDS: CATHETER FLUSH 10 ML SYR IV SCH ×2 (14:52→20:48)
[2018-03-20] MEDS ORDERED: NON-FORMULARY MEDICATION 1 EA EA (Diphenoxylate HCl/Atropine (Diphenoxylate-Atrop 2.5-0.02 PO PRN (18:00)
[2018-03-20] MEDS ORDERED: RT-ALBUTEROL SULF 2.5 MG/3 ML PRE-MIX VIAL INH PRN ×2 (18:00→18:15)
[2018-03-20] MEDS ORDERED: DIPHENOXYLATE/ATROPINE 2.5MG/0.025MG (LOMOTIL) TAB PO PRN (18:15)
[2018-03-20] MEDS: meTOprolol TARTRATE 25 MG (LOPRESSOR) TABLET PO SCH (20:48)
[2018-03-20] MEDS ORDERED: ATORVASTATIN 80 MG (LIPITOR) TABLET PO SCH (21:00)
[2018-03-20] MEDS ORDERED: NON-FORMULARY MEDICATION 1 EA EA (Bimatoprost (Lumigan) 1 DROP) OU SCH (21:00)
[2018-03-20] MEDS ORDERED: LATANOPROST 0.005% (XALATAN) OPHTH SOLN 2.5 ML OU SCH (21:00)
[2018-03-20] MEDS: oxyCODONE/APAP 7.5-325 MG (PERCOCET 7.5) TABLET PO PRN (23:06)
[2018-03-21 03:10] VITALS: BP 148/95
[2018-03-21] MEDS: oxyCODONE/APAP 7.5-325 MG (PERCOCET 7.5) TABLET PO PRN ×2 (03:13→09:43)
[2018-03-21 04:08] LABS: HEMOGLOBIN 9.1 G/DL (11.5-16.0); MEAN PLATELET VOLUME 9.1 FL (7.4-10.4); RED BLOOD COUNT 3.08 10^6/uL (4.35-5.85); RED CELL DISTRIBUTION WIDTH 14.4 % (10.0-14.5); WHITE BLOOD COUNT 6.8 10^3/uL (4.3-11.0)
[2018-03-21 04:29] LABS: ALBUMIN 3.3 GM/DL (3.2-4.5); BILIRUBIN,TOTAL 0.5 MG/DL (0.1-1.0); CALCIUM 8.8 MG/DL (8.5-10.1); TOTAL PROTEIN 7.2 GM/DL (6.4-8.2)
[2018-03-21] MEDS ORDERED: LEVOTHYROXINE 100 MCG (LEVOTHROID) TAB PO SCH (06:30)
[2018-03-21] MEDS: CATHETER FLUSH 10 ML SYR IV SCH (06:30)
[2018-03-21] MEDS ORDERED: ISOSORBIDE MONONITRATE 30 MG (IMDUR) TAB PO SCH (09:00)
[2018-03-21] MEDS ORDERED: NON-FORMULARY MEDICATION 1 EA EA (Levothyroxine Sodium 200 MCG) PO SCH (09:00)
[2018-03-21] MEDS ORDERED: ASPIRIN E.C. 81 MG (ECOTRIN) TAB PO SCH (09:00)
[2018-03-21] MEDS: meTOprolol TARTRATE 25 MG (LOPRESSOR) TABLET PO SCH (09:30)
--- NOTE | 2018-03-21 10:02 | Discharge Instructions ---
Discharge [facility] Discharge Medications Continued Medications: Albuterol Sulfate (Proair Hfa) 1 Puff Puff 2 PUFF INH Q6H PRN for SHORTNESS OF BREATH, INHALER Aspirin (Aspirin EC) 81 Mg Tablet.dr 81 MG PO DAILY, TAB Atorvastatin Calcium (Atorvastatin Calcium) 80 Mg Tablet 80 MG PO HS, TAB LAST FILLED #30 18 Bimatoprost (Lumigan) 2.5 Ml Drops 1 DROP OU HS, DROPS Cyclobenzaprine HCl (Cyclobenzaprine HCl) 10 Mg Tablet 10 MG PO TID PRN for MUSCLE SPASMS, TAB Diphenoxylate HCl/Atropine (Diphenoxylate-Atrop 2.5-0.025) 1 Each Tablet 1 TAB PO QID PRN for DIARRHEA, TAB Fentanyl (Fentanyl Patch 100 MCG) 1 Each Patch.td72 100 MCG TD Q72H, EA Isosorbide Mononitrate (Isosorbide Mononitrate ER) 30 Mg Tab.er.24h 30 MG PO DAILY, TAB Levothyroxine Sodium (Levothyroxine Sodium) 200 Mcg Tablet 200 MCG PO DAILY, TAB LAST FILLED #30 18 Metformin HCl (Metformin HCl) 500 Mg Tablet 500 MG PO BID, TAB LAST FILLED #60 18 Metoprolol Tartrate (Metoprolol Tartrate) 25 Mg Tablet 25 MG PO BID, TAB FILLED 03-11-18 #60 BUT PREVIOUSLY FILLED #60 01-03-18 (MAY BE TAKING ONCE DAILY OR MISSING DOSES) Oxycodone HCl/Acetaminophen (Oxycodon-Acetaminophen 7.5-325) 1 Each Tablet 1 TAB PO QID PRN for PAIN-MODERATE, TAB Potassium Chloride (Potassium Chloride) 20 Meq Tab.er.prt 20 MEQ PO BID, TAB LAST FILLED #60 01-25-18 Patient Instructions Goal/Follow Up Appt: Follow up with Dr. Hernandez on March 27 at 1020 am. Patient Instructions: I recommend you decrease your fentanyl patch dose to 75 mcg because you are not able to tolerate your breathing machine at night and are at high risk of respiratory failure with high dose of opiate pain medications in combination with lack of treatment for your apnea. Final determination will be made by Dr. Hernandez and clinic has been contacted to send your refill for fentanyl patches. Activity & Diet Discharge Diet: ADA Diet Activity as Tolerated: Yes Copy Copies To 1: JAN HERNANDEZ MD,LOY Rice MD Mar 21, 2018 10:02 am
--- NOTE | 2018-03-21 16:45 | Discharge Summary ---
Diagnosis/Chief Complaint Date of Admission Mar 20, 2018 at 02:22 Date of Discharge Mar 21, 2018 at 11:55 Admission Diagnosis Admission Diagnosis (1) Altered mental status Status: Acute Qualifiers: Qualified Codes: R41.82 - Altered mental status, unspecified (2) Hypertensive urgency Status: Acute (3) Chronic anemia Status: Chronic (4) Obesity hypoventilation syndrome Status: Chronic (5) Hypothyroidism Status: Chronic (6) Hypercapnia Status: Chronic (7) Hypoxia Status: Acute (8) Paroxysmal atrial fibrillation Status: Chronic (9) CAD (coronary artery disease) Status: Chronic (10) Prediabetes Status: Chronic Discharge Diagnosis (1) Altered mental status Status: Acute Assessment & Plan: Unclear etiology, head CT normal, labs similar to her baseline including ABG. Her family reports "she does this" sometimes with her fentanyl and dose goes down and then up again due to pain. She did have decreased dose of fentanyl to 75 mcg in January per chart review, increased back to 100 mcg at end of January and also had percocet increased to QID when her fentanyl dose was decreased, and apparently remained increased when fentanyl increased. -Fentanyl patch removed in ER, will hold for now, resume percocet if alert and having pain. Suspect she will need lower dose to prevent recurrences. -Possible UTI- UA not entirely convincing and not meeting sepsis criteria, urine culture pending 03/21- alert and oriented this am, discussed with her that I would recommend decreasing fentanyl to 75 mcg and possibly continuing to decrease, especially given her report that she is unable to tolerate non-invasive positive pressure ventilation at night that she needs due to her apnea/obesity hypoventilation syndrome. Final decision deferred to Dr. Hernandez. Qualifiers: Qualified Codes: R41.82 - Altered mental status, unspecified (2) Hypertensive urgency Status: Acute Assessment & Plan: Improved after labetalol. Resume home medications. (3) Chronic anemia Status: Chronic Assessment & Plan: At baseline, last iron studies 10/2016 showed normal iron, TIBC and ferritin, but at times over last several years had low iron, high TIBC and low ferritin. Currently normocytic, suspect anemia of chronic disease, but may have superimposed iron deficiency. 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 Stable, deferred work-up to outpatient follow up. (4) Obesity hypoventilation syndrome Status: Chronic Assessment & Plan: Was at one time qualified for vent to mask for home use but stated she would not use so was not set up, she also had cpap previously but did not use and so insurance did not continue coverage. (5) Hypothyroidism Status: Chronic Assessment & Plan: TSH normal on admit, continue home levothyroxine. (6) Hypercapnia Status: Chronic Assessment & Plan: Hypercapneic on admission but similar to previous ABGs, possible contributor to her lethargy, improving this am. Resume home albuterol. (7) Hypoxia Status: Acute Assessment & Plan: ABG similar to previous admissions, unclear baseline oxygen requirement. CTA ordered due to elevated D dimer and hypoxia and lethargy although previously CTA has been negative in similar situation with elevated D dimer and hypoxic hypercapneic respiratory insufficiency. CTA negative for PE. (8) Paroxysmal atrial fibrillation Status: Chronic Assessment & Plan: Not on anticoagulation due to intolerance in past. (9) CAD (coronary artery disease) Status: Chronic (10) Prediabetes Status: Chronic Assessment & Plan: Held home metformin due to contrast administration. Chief Complaint/HPI Chief Complaint/HPI Limited history due to altered mental status. Patient reportedly came to the ED for leg pain and there was concern with her mental status and hypoxia. She has a fentanyl patch for chronic pain. Family reports she has been admitted in the past for overdosing on the fentanyl patch. Patient also reportedly has an ulcer on the left lateral leg. She does not have good self care, nursing reports finding bugs on her. Patient is very somnolent. She is occasionally arousable and will sometimes answer questions but quickly falls back asleep. She is unable to say why she is in the hospital. When asked if she has had a blood clot in her leg in the past she says yes and it was a long time ago. Patient unable to give any more medical history. Discharge Summary-Simple/Stand Consultations Discharge Physical Examination Allergies: Coded Allergies: ceftriaxone (Verified Allergy, Unknown, 08/02/17) ibuprofen (Verified Allergy, Unknown, PT TAKES ASA AT HOME, 08/02/17) PER MED REC Vitals & I&Os Vital Sign - Last 12Hours Date Time Temp Pulse Resp B/P (MAP) Pulse Ox O2 Delivery O2 Flow Rate FiO2 03/21/18 11:55 03/21/18 09:40 100 Nasal Cannula 4.00 03/21/18 08:00 98.0 72 10 Intake and Output 03/21/18 00:00 Intake Total 475 ml Output Total 2225 ml Balance -1750 ml General Appearance: Alert, No Acute Distress Respiratory: Clear to Auscultation, Normal Air Movement Cardiovascular: Regular Rate, No Murmurs Neuro: Normal Speech Psych/Mental Status: Mental Status NL Hospital Course See final discharge diagnosis. Labs Laboratory Tests Test 03/20/18 00:10 03/20/18 00:29 03/20/18 02:38 03/21/18 03:54 Range/Units White Blood Count 6.7 6.8 4.3-11.0 10^3/uL Red Blood Count 2.95 L 3.08 L 4.35-5.85 10^6/uL Hemoglobin 9.0 L 9.1 L 11.5-16.0 G/DL Hematocrit 29 L 31 L 35-52 % Mean Corpuscular Volume 99 100 H 80-99 FL Mean Corpuscular Hemoglobin 31 30 25-34 PG Mean Corpuscular Hemoglobin Concent 31 L 30 L 32-36 G/DL Red Cell Distribution Width 13.9 14.4 10.0-14.5 % Platelet Count 183 227 130-400 10^3/uL Mean Platelet Volume 8.9 9.1 7.4-10.4 FL Neutrophils (%) (Auto) 71 42-75 % Lymphocytes (%) (Auto) 17 12-44 % Monocytes (%) (Auto) 7 0-12 % Eosinophils (%) (Auto) 5 0-10 % Basophils (%) (Auto) 0 0-10 % Neutrophils # (Auto) 4.8 1.8-7.8 X 10^3 Lymphocytes # (Auto) 1.1 1.0-4.0 X 10^3 Monocytes # (Auto) 0.5 0.0-1.0 X 10^3 Eosinophils # (Auto) 0.3 0.0-0.3 10^3/uL Basophils # (Auto) 0.0 0.0-0.1 10^3/uL Prothrombin Time 13.2 12.2-14.7 SEC INR Comment 1.0 0.8-1.4 Activated Partial Thromboplast Time 23 L 24-35 SEC D-Dimer 2.65 H 0.00-0.49 UG/ML Sodium Level 143 141 135-145 MMOL/L Potassium Level 3.6 4.0 3.6-5.0 MMOL/L Chloride Level 99 96 L 98-107 MMOL/L Carbon Dioxide Level 30 33 H 21-32 MMOL/L Anion Gap 14 12 5-14 MMOL/L Blood Urea Nitrogen 14 13 7-18 MG/DL Creatinine 1.07 1.00 0.60-1.30 MG/DL Estimat Glomerular Filtration Rate 52 56 BUN/Creatinine Ratio 13 13 Glucose Level 125 H 91 70-105 MG/DL Calcium Level 9.2 8.8 8.5-10.1 MG/DL Corrected Calcium 9.7 9.4 8.5-10.1 MG/DL Total Bilirubin 0.2 0.5 0.1-1.0 MG/DL Aspartate Amino Transf (AST/SGOT) 14 17 5-34 U/L Alanine Aminotransferase (ALT/SGPT) 11 14 0-55 U/L Alkaline Phosphatase 93 89 40-136 U/L Troponin I < 0.30 <0.30 NG/ML Total Protein 7.4 7.2 6.4-8.2 GM/DL Albumin 3.4 3.3 3.2-4.5 GM/DL Thyroid Stimulating Hormone (TSH) 2.59 0.35-4.94 UIU/ML Free Thyroxine 1.20 0.70-1.48 NG/DL Urine Color YELLOW Urine Clarity CLEAR Urine pH 8 5-9 Urine Specific Byron 1.010 L 1.016-1.022 Urine Protein NEGATIVE NEGATIVE Urine Glucose (UA) NEGATIVE NEGATIVE Urine Ketones NEGATIVE NEGATIVE Urine Nitrite NEGATIVE NEGATIVE Urine Bilirubin NEGATIVE NEGATIVE Urine Urobilinogen NORMAL NORMAL MG/DL Urine Leukocyte Esterase 1+ H NEGATIVE Urine RBC (Auto) NEGATIVE NEGATIVE Urine RBC NONE /HPF Urine WBC 2-5 /HPF Urine Squamous Epithelial Cells RARE /HPF Urine Crystals NONE /LPF Urine Bacteria FEW H /HPF Urine Casts NONE /LPF Urine Mucus NEGATIVE /LPF Urine Yeast FEW H /HPF Urine Culture Indicated YES Blood Gas Puncture Site R RAD Blood Gas Patient Temperature 99.1 Arterial Blood pH 7.46 H 7.37-7.43 Arterial Blood Partial Pressure CO2 52 H 35-45 MMHG Arterial Blood Partial Pressure O2 66 L 79-93 MMHG Arterial Blood HCO3 36 H 23-27 MMOL/L Arterial Blood Total CO2 37.3 H 21.0-31.0 MMOL/L Arterial Blood Oxygen Saturation 94 94-100 % Arterial Blood Base Excess 11.3 H -2.5-2.5 MMOL/L Blake Test YES-POS Blood Gas Ventilator Setting NO Blood Gas Inspired Oxygen 2L Triglycerides Level 125 <150 MG/DL Cholesterol Level 111 < 200 MG/DL LDL Cholesterol Direct 54 1-129 MG/DL VLDL Cholesterol 25 5-40 MG/DL HDL Cholesterol 30 L 40-60 MG/DL Discharge Instructions to patient/family Please see electronic discharge instructions given to patient. Discharge Medications Reviewed and agree with Discharge Medication list on patient's Discharge Instruction sheet Clinical Quality Measures DVT/VTE Risk/Contraindication: Risk Factor Score Per Nursin RFS Level Per Nursing on Admit: 4+=Very High Copy Copies To 1: JAN HERNANDEZ MD, BETHANY N MD Mar 21, 2018 16:45
--- OUTSIDE RECORDS SUMMARY | 2018-03-24 16:27 | XMS REPORT | Clinical Summary ---
Author Author [facility] Organization [facility] Address Unknown Phone Unavailable Care Team Providers Care District Customs Director Name Role Phone Erick Sawyer DO Unavailable Alesha Desir MD PCP Source Comments Some departments are not documenting in the electronic medical record. If you do not see the information that you expected, contact Release of Information in the Health Information Management department at [phone] for further assistance in locating additional records.[facility] Allergies Active Allergy Reactions Severity Noted Date [...]
== END 2018-03-21 09:59 | disposition home or self-care (01) ==
LOC: EDUNIT# 23:38 → ER 23:39 → ICU 23:40 → UNDOADMOB 03-20 02:22 → ICU 03-20 02:22 → UNDODISOB 03-21 11:55
PROVIDERS: ADMIT Family Medicine; ATTEND Family Medicine
DX: R41.82 Altered mental status, unspecified (principal); I16.0 Hypertensive urgency; E66.2 Morbid (severe) obesity with alveolar hypoventilation; D63.8 Anemia in other chronic diseases classified elsewhere; E03.9 Hypothyroidism, unspecified; J96.11 Chronic respiratory failure with hypoxia; R06.89 Other abnormalities of breathing; I48.0 Paroxysmal atrial fibrillation; I25.10 Atherosclerotic heart disease of native coronary artery without angina pectoris; R73.03 Prediabetes; Z87.891 Personal history of nicotine dependence; J44.9 Chronic obstructive pulmonary disease, unspecified; F11.20 Opioid dependence, uncomplicated; Z86.010 Personal history of colon polyps; Z95.5 Presence of coronary angioplasty implant and graft; Z86.718 Personal history of other venous thrombosis and embolism
CPT/HCPCS: 36415; 36600; 51702; 70450; 71045; 71275; 80053; 80061; 81000; 82805; 84439; 84443; 84484; 85025; 85027; 85379; 85610; 85730; 87077; 87088; 87186; 93005; 93041; 96374

== ENCOUNTER 2018-04-16 20:30 | Emergency (ER) | payer MEDICAID ==
[~2018-04-16] VITALS: Ht 157.5 cm; Wt 127.5 kg
[~2018-04-16 20:30] MED LIST changes: +ASPI-983 PO; +DIPH1TAB25 PO; +POTA20TA15 PO; +RT-ALBUINH INH
--- NOTE | 2018-04-16 20:40 | ED Lower Extremity ---
General Stated Complaint: RT LEG SWOLLEN/PAIN Source: patient Exam Limitations: no limitations History of Present Illness Date Seen by Provider: Apr 16, 2018 Time Seen by Provider: 20:38 Initial Comments To ER with a swollen and painful right leg. This began yesterday without known injury. No fevers or chills and she is currently on an antibiotic for an upper respiratory infection. She has a history of DVT in the right leg and is concerned this may be the case again. 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 Onset: just prior to arrival Severity: moderate Pain/Injury Location: right leg Modifying Factors: Worse With Movement Allergies and Home Medications Allergies Coded Allergies: ceftriaxone (Verified Allergy, Unknown, 08/02/17) ibuprofen (Verified Allergy, Unknown, PT TAKES ASA AT HOME, 08/02/17) PER MED REC Home Medications Albuterol Sulfate 1 Puff Puff, 2 PUFF INH Q6H PRN for SHORTNESS OF BREATH, ( Reported) Aspirin 81 Mg Tablet.dr, 81 MG PO DAILY, (Reported) Atorvastatin Calcium 80 Mg Tablet, 80 MG PO HS, (Reported) LAST FILLED #30 18 Bimatoprost 2.5 Ml Drops, 1 DROP OU HS, (Reported) Cyclobenzaprine HCl 10 Mg Tablet, 10 MG PO TID PRN for MUSCLE SPASMS, (Reported) Diphenoxylate HCl/Atropine 1 Each Tablet, 1 TAB PO QID PRN for DIARRHEA, ( Reported) Fentanyl 1 Each Patch.td72, 100 MCG TD Q72H, (Reported) Isosorbide Mononitrate 30 Mg Tab.er.24h, 30 MG PO DAILY, (Reported) Levothyroxine Sodium 200 Mcg Tablet, 200 MCG PO DAILY, (Reported) LAST FILLED #30 18 Metformin HCl 500 Mg Tablet, 500 MG PO BID, (Reported) LAST FILLED #60 18 Metoprolol Tartrate 25 Mg Tablet, 25 MG PO BID, (Reported) FILLED 03-11-18 #60 BUT PREVIOUSLY FILLED #60 01-03-18 (MAY BE TAKING ONCE DAILY OR MISSING DOSES) Oxycodone HCl/Acetaminophen 1 Each Tablet, 1 TAB PO QID PRN for PAIN-MODERATE, ( Reported) Potassium Chloride 20 Meq Tab.er.prt, 20 MEQ PO BID, (Reported) LAST FILLED #60 01-25-18 Patient Home Medication List Home Medication List Reviewed: Yes Review of Systems Constitutional: see HPI EENTM: see HPI Respiratory: no symptoms reported Cardiovascular: no symptoms reported Genitourinary: no symptoms reported Musculoskeletal: see HPI Skin: no symptoms reported Psychiatric/Neurological: No Symptoms Reported Past Mpworyr-Wovuvz-Uazgpb Hx Patient Social History 2nd Hand Smoke Exposure: No Recent Foreign Travel: No Contact w/Someone Who Travel: No Recent Hopitalizations: No Immunizations Up To Date Tetanus Booster (TDap): Unknown Date of Pneumonia Vaccine: Mar 13, 2013 Date of Influenza Vaccine: Mar 28, 2017 Seasonal Allergies Seasonal Allergies: No Past Medical History Surgeries: Yes Abdominal, Adenoidectomy, Bowel Surgery, Cardiac, Coronary Stent, Eye Surgery, Gallbladder, Tonsillectomy, Tubal Ligation Respiratory: Yes (CHRONIC DYSPNEA--USES O2 AT HOME, ESPECIALLY AT NIGHT) Sleep Apnea, COPD Cardiac: Yes (TACHYCARDIA, STENTS X 1, CHF) Atrial Fibrillation, Chronic Edema/Swelling, Coronary Artery Disease, Deep Vein Thrombosis, Heart Attack, High Cholesterol, Hypertension Neurological: No 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 Disorders: No Female 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 Disorders: 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: Tubal Ligation, Menopausal Sexually Transmitted Disease: No HIV/AIDS: No Genitourinary: Yes UTI-Chronic Gastrointestinal: Yes Abdominal Hernia, Diverticulosis, Polyps Musculoskeletal: Yes (CHRONIC GENERALIZED PAIN--NARCOTIC-DEPENDENT) Degenerate Disk Disease, Arthritis, Chronic Back Pain Endocrine: Yes (MORBID OBESITY) Hypothyroidsim, Diabetes, Non-Insulin dep HEENT: Yes Cataract, Glaucoma Loss of Vision: Denies Hearing Impairment: Denies Cancer: Yes (SQUAMOUS CELL SKIN CANCER RIGHT CHEEK 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) Skin, Colon Did You Recieve Any Treatments: Yes What Type of Treatment Did You: Surgical Intervention Psychosocial: No Integumentary: Yes (CELLULITIS; SKIN CANCER; BEDBUGS) Eczema Blood Disorders: Yes (CHRONIC ANEMIA) Adverse Reaction/Blood Tranf: No (HAS HAD BLOOD WITH NO REACTION) Family Medical History Cancer 03 MOTHER, Onset:40's - 50 Family history: Cardiovascular disease 03 FATHER, Onset:40's - 50 03 MOTHER, Onset:30's - 40 Myocardial infarction 03 MOTHER, Onset:30's - 40 No Pertinent Family Hx Physical Exam Vital Signs Vital Signs - First Documented 04/16/18 20:35 Temp 98.1 Pulse 68 Resp 20 B/P (MAP) 163/75 (104) Pulse Ox 94 O2 Delivery Nasal Cannula O2 Flow Rate 4.00 Capillary Refill : Height, Weight, BMI Height: 5'2.00" Weight: 281lbs. 1.0oz. 127.503666yj; 53.4 BMI Method:Stated General Appearance: WD/WN, no apparent distress HEENT: PERRL/EOMI, normal ENT inspection Neck: non-tender, full range of motion Respiratory: no respiratory distress, no accessory muscle use Gastrointestinal: normal bowel sounds, non tender Hips: bilateral hip non-tender, bilateral hip normal inspection, bilateral hip normal range of motion Legs: bilateral leg other (bilateral lower extremities from the lower tibia region distally has thickening scaling of skin without erythema. The right calf is significantly larger than the left and rather firm in the right calf as compared to the left as well. She does state that she has some chronic swelling to the right leg after her previous DVT but nothing to this degree. The right calf measures 22-1/2 cm mid calf and at the same location on the left measures 16-1/2 cm circumference.) Knees: bilateral knee non-tender, bilateral knee normal inspection, bilateral knee normal range of motion Ankles: bilateral ankle non-tender, bilateral ankle normal inspection, bilateral ankle normal range of motion Feet: bilateral foot non-tender, bilateral foot normal inspection, bilateral foot normal range of motion Neurologic/Psychiatric: alert, normal mood/affect, oriented x 3 Skin: normal color, warm/dry Procedures/Interventions Suture Size: 4-0 Progress/Results/Core Measures Results/Orders Lab Results Laboratory Tests Test 04/16/18 20:45 Range/Units White Blood Count 11.1 H 4.3-11.0 10^3/uL Red Blood Count 3.26 L 4.35-5.85 10^6/uL Hemoglobin 9.5 L 11.5-16.0 G/DL Hematocrit 33 L 35-52 % Mean Corpuscular Volume 100 H 80-99 FL Mean Corpuscular Hemoglobin 29 25-34 PG Mean Corpuscular Hemoglobin Concent 29 L 32-36 G/DL Red Cell Distribution Width 14.0 10.0-14.5 % Platelet Count 254 130-400 10^3/uL Mean Platelet Volume 9.3 7.4-10.4 FL Neutrophils (%) (Auto) 75 42-75 % Lymphocytes (%) (Auto) 17 12-44 % Monocytes (%) (Auto) 7 0-12 % Eosinophils (%) (Auto) 1 0-10 % Basophils (%) (Auto) 0 0-10 % Neutrophils # (Auto) 8.3 H 1.8-7.8 X 10^3 Lymphocytes # (Auto) 1.8 1.0-4.0 X 10^3 Monocytes # (Auto) 0.8 0.0-1.0 X 10^3 Eosinophils # (Auto) 0.2 0.0-0.3 10^3/uL Basophils # (Auto) 0.0 0.0-0.1 10^3/uL Sodium Level 141 135-145 MMOL/L Potassium Level 3.8 3.6-5.0 MMOL/L Chloride Level 97 L 98-107 MMOL/L Carbon Dioxide Level 32 21-32 MMOL/L Anion Gap 12 5-14 MMOL/L Blood Urea Nitrogen 33 H 7-18 MG/DL Creatinine 1.51 H 0.60-1.30 MG/DL Estimat Glomerular Filtration Rate 35 BUN/Creatinine Ratio 22 Glucose Level 152 H 70-105 MG/DL Calcium Level 9.3 8.5-10.1 MG/DL Corrected Calcium 9.9 8.5-10.1 MG/DL Total Bilirubin 0.2 0.1-1.0 MG/DL Aspartate Amino Transf (AST/SGOT) 21 5-34 U/L Alanine Aminotransferase (ALT/SGPT) 33 0-55 U/L Alkaline Phosphatase 109 40-136 U/L Total Protein 7.5 6.4-8.2 GM/DL Albumin 3.3 3.2-4.5 GM/DL My Orders Orders - ANISHA NIEVES APRN Cbc With Automated Diff (04/16/18 20:38) Comprehensive Metabolic Panel (04/16/18 20:38) Vital Signs/I&O 04/16/18 20:35 Temp 98.1 Pulse 68 Resp 20 B/P (MAP) 163/75 (104) Pulse Ox 94 O2 Delivery Nasal Cannula O2 Flow Rate 4.00 Departure Communication (Admissions) [id number] discussed the case with Dr. Harris. We will treat with Poppy in the meantime, obtain outpatient RLE venous ultrasound tomorrow with report to be faxed to Dr. Hernandez. Patient does have a history of significant anemia that developed while she was on Xarelto for paroxysmal atrial fibrillation. She states that was several years ago and her hemoglobin has been stable in the 9- 10 range since then. Impression Primary Impression: Right leg swelling Disposition: 01 HOME, SELF-CARE Condition: Stable Departure-Patient Inst. Decision time for Depature: 21:20 Referrals: JAN HERNANDEZ MD (PCP/Family) Primary Care Physician Patient Instructions: Deep Vein Thrombosis (Blood Clots in the Legs) Add. Discharge Instructions: 1. Call scheduling department tomorrow to make an appointment for your stat venous ultrasound. Report will be sent to Dr. Hernandez. Copy Copies To 1: JAN HERNANDEZ MD, PETER J APRN Apr 16, 2018 20:40
[2018-04-16 20:54] LABS: BASOPHILS % (AUTO) 0 % (0-10); EOSINOPHILS # (AUTO) 0.2 10^3/uL (0.0-0.3); EOSINOPHILS % (AUTO) 1 % (0-10); HEMATOCRIT 33 % (35-52); HEMOGLOBIN 9.5 G/DL (11.5-16.0); LYMPHOCYTES # (AUTO) 1.8 X 10^3 (1.0-4.0); LYMPHOCYTES % (AUTO) 17 % (12-44); MEAN CORPUSCULAR HEMOGLOBIN 29 PG (25-34); MEAN CORPUSCULAR HGB CONC 29 G/DL (32-36); MEAN CORPUSCULAR VOLUME 100 FL (80-99); MEAN PLATELET VOLUME 9.3 FL (7.4-10.4); MONOCYTES # (AUTO) 0.8 X 10^3 (0.0-1.0); MONOCYTES % (AUTO) 7 % (0-12); NEUTROPHILS # (AUTO) 8.3 X 10^3 (1.8-7.8); NEUTROPHILS % (AUTO) 75 % (42-75); PLATELET COUNT 254 10^3/uL (130-400); RED BLOOD COUNT 3.26 10^6/uL (4.35-5.85); WHITE BLOOD COUNT 11.1 10^3/uL (4.3-11.0)
[2018-04-16 21:14] LABS: ALBUMIN 3.3 GM/DL (3.2-4.5); BILIRUBIN,TOTAL 0.2 MG/DL (0.1-1.0); CALCIUM 9.3 MG/DL (8.5-10.1); CREATININE SERUM 1.51 MG/DL (0.60-1.30); POTASSIUM 3.8 MMOL/L (3.6-5.0); TOTAL PROTEIN 7.5 GM/DL (6.4-8.2)
[2018-04-16 21:43] VITALS: BP 163/75
[2018-04-16] MEDS ORDERED: RX-HYDROCODONE/APAP 5/325 MG #4 TAB PK PO PRN (21:45)
[2018-04-16] MEDS ORDERED: APIXABAN 5 MG (ELIQUIS) TABLET PO SCH (21:45)
== END 2018-04-16 21:43 | disposition home or self-care (01) ==
LOC: EDUNIT# 20:30 → ER 20:32
DX: M79.89 Other specified soft tissue disorders (principal); I48.91 Unspecified atrial fibrillation; I25.10 Atherosclerotic heart disease of native coronary artery without angina pectoris; I25.2 Old myocardial infarction; E78.00 Pure hypercholesterolemia, unspecified; I10 Essential (primary) hypertension; E03.9 Hypothyroidism, unspecified; E11.9 Type 2 diabetes mellitus without complications; Z85.038 Personal history of other malignant neoplasm of large intestine; Z85.828 Personal history of other malignant neoplasm of skin; Z87.19 Personal history of other diseases of the digestive system; Z87.440 Personal history of urinary (tract) infections; Z86.718 Personal history of other venous thrombosis and embolism; Z88.1 Allergy status to other antibiotic agents; Z88.6 Allergy status to analgesic agent; Z79.82 Long term (current) use of aspirin; Z79.84 Long term (current) use of oral hypoglycemic drugs; Z95.5 Presence of coronary angioplasty implant and graft; Z90.89 Acquired absence of other organs; Z98.51 Tubal ligation status
CPT/HCPCS: 36415; 80053; 85025

== ENCOUNTER → 2018-04-17 | Outpatient (CLI) | payer MEDICAID ==
--- NOTE | 2018-04-17 16:18 | Diagnostic Imaging Report ---
PROCEDURE: US right lower extremity venous. TECHNIQUE: Multiple Real-time grayscale images were obtained over the right lower extremity in various projections. Additional duplex Doppler and color Doppler images were also obtained. INDICATION: Right leg swelling. FINDINGS: There is no evidence of a right lower extremity DVT. The right lower extremity deep venous system shows normal compressibility with normal response to augmentation and Valsalva. No fluid collection or mass is seen. IMPRESSION: No evidence of right lower extremity DVT. Dictated by: Dictated on workstation # [id number]
== END ==
LOC: RAD 13:21
PROVIDERS: ATTEND Nurse Practitioner Family
DX: M79.89 Other specified soft tissue disorders (principal)

== ENCOUNTER → 2018-06-14 | Outpatient (CLI) | payer MEDICAID, OTHER | LOC: CARD 09:52 | PROVIDERS: ATTEND Internal Medicine Cardiovascular Disease | DX: I25.10 Atherosclerotic heart disease of native coronary artery without angina pectoris (principal); I10 Essential (primary) hypertension; J96.20 Acute and chronic respiratory failure, unspecified whether with hypoxia or hypercapnia; E11.9 Type 2 diabetes mellitus without complications; N28.9 Disorder of kidney and ureter, unspecified; I08.2 Rheumatic disorders of both aortic and tricuspid valves | CPT/HCPCS: 93306 ==

== ENCOUNTER → 2018-06-19 | Outpatient (CLI) | payer MEDICAID ==
[~2018-06-19] MED LIST changes: +CATHETER FLUSH 10 ML SYR IV PRN; +REGADENOSON 0.4 MG/5 ML SYR (LEXISCAN) IV ONE
[2018-06-19 09:26] VITALS: BP 129/47
[2018-06-19 09:29] VITALS: BP 122/41
--- NOTE | 2018-06-19 20:58 | STRESS TEST ---
DATE OF SERVICE: 06/19/2018 LEXISCAN MYOVIEW STRESS TEST REPORT Baseline heart rate is 60. Baseline blood pressure 175/45. Baseline EKG is sinus rhythm with no ischemic changes. In summary, the patient was injected with 10.69 mCi of technetium-99 Myoview and the resting images were obtained. Then, the patient received 0.4 mg of Lexiscan followed by 31.4 mCi of technetium-99 Myoview. Throughout the test, there were no EKG changes. The resting and stress images were reviewed and compared in the short axis, horizontal long axis, and vertical long axis views. Review of the images showed breast attenuation with reversible ischemia involving the mid to apical anterior wall, anterolateral wall and anterior septum. SSS is 5, SDS 5, TID value 1.16. On the gated images, the left ventricle appeared to be normal size with mild hypokinesia at the anterior wall. Calculated ejection fraction 53%. CONCLUSION: 1. The patient tolerated the Lexiscan well. 2. Breast attenuation with mild ischemia involving the mid to apical anterior wall, anterolateral wall, anterior septum. 3. Normal left ventricular size with mild hypokinesia at the anterior wall. Calculated ejection fraction 53%. Job ID: [id number] DocumentID: [id number] Dictated Date: 06/19/2018 16:11:39 Rn Psych Date: 06/19/2018 20:57:39 Dictated By: ALLY MARINO MD
== END ==
LOC: CARD 08:09
PROVIDERS: ATTEND Internal Medicine Cardiovascular Disease
DX: J96.20 Acute and chronic respiratory failure, unspecified whether with hypoxia or hypercapnia (principal); I25.10 Atherosclerotic heart disease of native coronary artery without angina pectoris; I10 Essential (primary) hypertension; E11.9 Type 2 diabetes mellitus without complications; N28.9 Disorder of kidney and ureter, unspecified
CPT/HCPCS: 78452; 93017

== ENCOUNTER 2018-07-12 07:54 | Day surgery (SDC) | payer MEDICAID ==
[~2018-07-12] VITALS: Ht 157.5 cm; Wt 123.8 kg
[2018-07-12] VITALS (10 sets, daily range): BP systolic 135–162; BP diastolic 67–86
[~2018-07-12 07:54] MED LIST changes: -CATHETER FLUSH 10 ML SYR IV PRN; -REGADENOSON 0.4 MG/5 ML SYR (LEXISCAN) IV ONE
[2018-07-12] MEDS ORDERED: NS IV 1000 ML 1,000 ML ONE (07:55)
[2018-07-12] MEDS ORDERED: HEParin (CATH LAB) 2,000 ML IV ONE (07:55)
[2018-07-12] MEDS ORDERED: LIDOCAINE 1% INJ 20 ML 20 ML VIAL ONE (07:55)
--- OUTSIDE RECORDS SUMMARY | 2018-07-12 07:58 | XMS REPORT | Clinical Summary ---
Author Author [facility] Organization [facility] Address Unknown Phone Unavailable Care Team Providers Care Senior Field Engineer Name Role Phone Erick Sawyer DO Unavailable Alesha Desir MD PCP Source Comments Some departments are not documenting in the electronic medical record. If you do not see the information that you expected, contact Release of Information in the Health Information Management department at [phone] for further assistance in locating additional records.[facility] Allergies Comments Active Allergy Reactions Severity Noted Date Ibuprofen EDEMA 11/16/2012 Ceftriaxone HIVES 11/16/2012 Medications End Date Status Medication Sig Dispensed Refills Start Date Active levothyroxine (SYNTHROID) Take 150 mcg 0 150 mcg tablet by mouth daily. Active omeprazole DR(+) Take 40 mg by 0 (PRILOSEC) 40 mg capsule mouth daily. Active metFORMIN (GLUCOPHAGE) Take 500 mg 0 500 mg tablet by mouth twice daily with meals. Active atorvastatin (LIPITOR) 80 Take 80 mg by 0 mg tablet mouth daily. Active aspirin EC 81 mg tablet Take 81 mg by 0 mouth daily. Active lisinopril (PRINIVIL; Take 10 mg by 0 ZESTRIL) 10 mg tablet mouth daily. Active metoprolol XL (TOPROL XL) Take 25 mg by 0 25 mg tablet mouth daily. Active fentaNYL (DURAGESIC) 75 Apply 1 Patch 0 mcg/hr patch to top of skin as directed every 72 hours Active prasugrel (EFFIENT) 10 mg Take 10 mg by 0 Tab tablet mouth daily. 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 Last Filed Vital Signs Time Taken Vital Sign Reading 11/16/2012 11:22 AM CDT Blood Pressure 127/79 11/16/2012 11:22 AM CDT Pulse 112 11/16/2012 11:22 AM CDT Temperature 36.7 C (98 F) 11/16/2012 11:22 AM CDT Respiratory Rate 20 - Oxygen Saturation - - Inhaled Oxygen - Concentration 11/16/2012 11:22 AM CDT Weight 137.7 kg (303 lb 9.6 oz) 11/16/2012 11:22 AM CDT Height 157.5 cm (5' 2") 11/16/2012 11:22 AM CDT Body Mass Index 55.53 Plan of Treatment Health Maintenance Due Date Last Done Comments HEPATITIS C SCREENING 1954 PHYSICAL (COMPREHENSIVE) 1961 EXAM HIV SCREENING 1969 DTAP/TDAP VACCINES (1 - 1972 Tdap) CERVICAL CANCER SCREENING 1984 BREAST CANCER SCREENING 1994 COLORECTAL CANCER 2004 SCREENING SHINGLES RECOMBINANT 2004 VACCINE (1 of 2) INFLUENZA VACCINE 01/11/2018 Results Not on filefrom Last 3 Months
--- OUTSIDE RECORDS SUMMARY | 2018-07-12 07:59 | XMS REPORT ---
Author Author JAN HERNANDEZ [facility] Address [address] [place] [address] Care Team Providers Care Assistant Corporate Controller Name Role Phone JAN HERNANDEZ Unavailable PROBLEMS Type Condition ICD9-CM Code ELN38-FT Code Onset Dates Condition Status SNOMED Code Problem Prediabetes R73.09 Active 8480173 Problem Hypokalemia E87.6 Active 73650281 Problem Arthritis M19.90 Active 4413482 Problem Neuropathy G62.9 Active 836628415 Problem Obesity hypoventilation syndrome E66.2 Active 299426340 Problem 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 Active 119609769 Problem Body mass index (BMI) of 45.0-49.9 in adult Z68.42 Active 163462733 Problem Coronary artery disease involving [place] coronary artery of [place] heart without angina pectoris I25.10 Active 7843925096172 Problem Venous insufficiency I87.2 Active 98269125 Problem Anemia D64.9 Active 602563464 Problem Cor pulmonale I27.81 Active 30160147 Problem Back pain M54.9 Active 402632775 Problem Restrictive lung disease J98.4 Active 88435878 Problem Hypothyroidism E03.9 Active 38809654 ALLERGIES Substance Reaction Event Type Date Status Rocephin anaphylaxis, hives Drug Allergy May, Active Ibuprofen anaphylaxis, hives Drug Allergy May, Active ENCOUNTERS Encounter Location Date Diagnosis [facility] [address] [facility] [id number] [address] May, Venous insufficiency I87.2 [facility] [address] [id number] [address] 6025 May, [facility] [address] [id number] [address] 14[address] Apr, [facility] [address] [place] [address] 39398- 5532 Apr, Cor pulmonale I27.81 [facility] [address] [address]29- 7805 Apr, Venous insufficiency I87.2 [facility] [address] 12649- 2301 Apr, [facility] [address] 6[address]37- 5914 Apr, Neuropathy G62.9 and Prediabetes R73.09 [facility] [address] 84873- 5256 Apr, [facility] [address] 91823- 5888 Apr, [facility] [address] 12612- 4496 Apr, [facility] [address] 09339 -3737 Apr, Swelling of right lower extremity M79.89 [facility] [address] 11364- 4270 Apr, [facility] [address] 89982- 3575 Mar, Bronchitis J40 [facility] [address] 77193- 9858 Mar, [facility] [address] 53632- 6096 Mar, 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 ; Encounter for immunization Z23 and Arthritis M19.90 [facility] [address] 75403- 4002 Mar, Arthritis M19.90 and Back pain M54.9 [facility] [address] 60183- 8225 Mar, [facility] [id number] [place] [address] 94689- 5703 Mar, [facility] [id number] [place] [address] 32674- 3367 Feb, Arthritis M19.90 [facility] [id number] [place] [address] 28981- 6570 Jan, Arthritis M19.90 [facility] [id number] [place] [address] 96729- 2583 Jan, Back pain M54.9 and Arthritis M19.90 [facility] [id number] [place] [address] 79348- 1879 Jan, [facility] [id number] [place] [address] 16488- 4202 Jan, Back pain M54.9 [facility] [id number] [place] [address] 47522- 7740 Jan, Arthritis M19.90 [facility] [id number] [place] [address] 41381- 0808 Jan, Back pain M54.9 [facility] [id number] [place] [address] 00150- 1808 Jan, [facility] [id number] [place] [address] 82512- 4079 Jan, Back pain M54.9 [facility] [id number] [place] [address] 10397- 1122 Dec, Ingrowing nail with infection L60.0 and Onychomycosis B35.1 [facility] [id number] [place] [address] 06576- 1612 Dec, Arthritis M19.90 [facility] [id number] [place] [address] 22194- 6817 Dec, Ingrowing nail L60.0 [facility] [id number] [place] [address] 72226- 9106 Dec, Back pain M54.9 [facility] [id number] [place] [address] 99617 -5038 Dec, [facility] [id number] [place] [address] 30632- 6066 Dec, Back pain M54.9 [facility] [id number] [place] [address] 14717- 4522 Nov, Arthritis M19.90 [facility] [address] 69402- 3510 Nov, [facility] [id number] [place] [address] 22229- 4191 Nov, Arthritis M19.90 ; Anemia D64.9 ; Restrictive lung disease J98.4 ; Weakness R53.1 and BMI 50.0-59.9, adult Z68.43 [facility] [id number] [place] [address] 03846- 3738 Nov, Arthritis M19.90 [facility] [id number] [place] [address] 40870- 7984 Nov, Back pain M54.9 [facility] [id number] [place] [address] 23091- 4033 October, Back pain M54.9 [facility] [id number] [place] [address] 39873- 3290 October, Back pain M54.9 [facility] [id number] [place] [address] 87458- 6005 Sep, Back pain M54.9 [facility] [id number] [place] [address] 21865- 1884 Sep, Back pain M54.9 [facility] [id number] [place] [address] 67244 -6638 Sep, [facility] [id number] [place] [address] 73777 -0109 Sep, [facility] [id number] [place] [address] 34249 -4852 Sep, Swelling of right lower extremity M79.89 and Cellulitis of right lower extremity L03.115 [address] [place] [id number] [place] [address] 61891- 5391 Aug, Back pain M54.9 [place] [id number] [place] [address] 49647- 9892 Aug, Back pain M54.9 [place] [id number] [place] [address] 17397- 0716 Aug, [place] [id number] [place] [address] 67326- 9498 Aug, Cellulitis of right lower extremity L03.115 ; Ventral hernia without obstruction or gangrene K43.9 and BMI 50.0-59.9, adult Z68.43 [place] [id number] [place] [address] 01440- 7201 Jul, Back pain M54.9 [place] [id number] [place] [address] 56543- 9129 Jul, 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 ; Arthritis M19.90 ; Back pain M54.9 ; Prediabetes R73.09 ; Hypothyroidism E03.9 ; Coronary artery disease involving [place] coronary artery of [place] heart without angina pectoris I25.10 and Anemia D64.9 [place] [address] [place] [address] 83886- 3892 Jul, 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 ; Back pain M54.9 ; Arthritis M19.90 ; Prediabetes R73.09 ; Hypothyroidism E03.9 ; Coronary artery disease involving [place] coronary artery of [place] heart without angina pectoris I25.10 ; Anemia D64.9 and BMI 45.0-49.9, adult Z68.42 [facility] [id number] [place] [address] 77472- 0926 15 Jul, 2017 Back pain M54.9 [facility] [id number] [place] [address] 96205- 4656 05 Jul, 2017 Back pain M54.9 [facility] [id number] [place] [address] 06096- 4800 Jun, Back pain M54.9 [facility] [id number] [place] [address] 58446- 8692 Jun, Back pain M54.9 [facility] [id number] [place] [address] 00951 -6982 May, Skin cancer of face C44.300 and BMI 45.0-49.9, adult Z68.42 [facility] [id number] [place] [address] 57064- 5369 May, [facility] [id number] [place] [address] 82367- 1319 May, Back pain M54.9 [facility] [id number] [place] [address] 29877- 7020 May, Back pain M54.9 [facility] [id number] [place] [address] 95479- 1029 May, Back pain M54.9 [facility] [id number] [place] [address] 02735- 2754 Apr, Back pain M54.9 [facility] [id number] [place] [address] 76457- 5182 Apr, Back pain M54.9 [facility] [id number] [place] [address] 98932- 1963 Mar, Back pain M54.9 [facility] [id number] [place] [address] 61899- 8665 Mar, Anemia D64.9 ; Encounter for immunization Z23 ; Arthritis M19.90 and Right inguinal hernia K40.90 [facility] [id number] [place] [address] 72070- 0105 Mar, Back pain M54.9 [facility] [address] 21251- 9706 Feb, Back pain M54.9 [facility] [address] 12136- 4632 13 Feb, 2017 Back pain M54.9 [facility] [address] 24908- 3110 Jan, Back pain M54.9 [facility] [address] 50749- 7907 Jan, Back pain M54.9 [facility] [address] 41950- 0297 Jan, [facility] [address] 02517- 2548 Jan, Back pain M54.9 [facility] [id number] [place] [address] 33889- 0231 Dec, Back pain M54.9 [facility] [address] 16167- 1253 Dec, Back pain M54.9 [facility] [id number] [place] [address] 24567- 7309 Dec, [facility] [address] 06328- 3375 Nov, Hypokalemia E87.6 [facility] [id number] [place] [address] 26680- 5928 Nov, Back pain M54.9 [facility] [id number] [place] [address] 03984- 0129 Nov, [facility] [id number] [place] [address] 04522- 0295 Nov, Arthritis M19.90 [facility] [id number] [place] [address] 39251- 3700 Nov, Back pain M54.9 [facility] [id number] [place] [address] 17460- 1296 Nov, Generalized edema R60.1 [place] [id number] [place] [address] 64005- 5321 Nov, Back pain M54.9 [place] [id number] [place] [address] 52870- 6093 Nov, Pain in right knee M25.561 [place] [id number] [place] [address] 12677- 2756 05 Nov, 2016 Encounter for removal of sutures Z48.02 and Pain in right knee M25.561 [facility] [id number] [place] [address] 17176 -3222 Nov, Abrasion of right foot, subsequent encounter S90.811D [facility] [id number] [place] [address] 61691 -8858 October, Toe abrasion, right, initial encounter S90.414A [facility] [id number] [place] [address] 88733- 5888 October, [place] [id number] [place] [address] 36557- 0052 October, Back pain M54.9 [facility] [id number] [place] [address] 72906- 7113 October, Venous insufficiency I87.2 [facility] [id number] [place] [address] 29523- 2855 October, Pain in right knee M25.561 [place] [id number] [place] [address] 92102- 4845 Sep, Back pain M54.9 [facility] [id number] [place] [address] 32522- 2471 Sep, Venous insufficiency I87.2 [facility] [address] [id number] Sep, [facility] [address] 12876 -6818 Sep, Leg edema, right R60.0 and Cellulitis of right lower extremity L03.115 [place] [id number] [place] [address] 25551- 3344 Sep, Pedal edema R60.0 [place] [address] 02860- 7160 Sep, 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 ; Pain in right knee M25.561 and Arthritis M19.90 [place] [id number] [place] [address] 68869- 0687 Aug, Back pain M54.9 [place] [id number] [place] [address] 79574- 3410 Aug, Back pain M54.9 [place] [id number] [place] [address] 27968- 6431 Aug, [place] [id number] [place] [address] 67828- 0483 Aug, Type 2 diabetes mellitus without complication E11.9 ; Restrictive lung disease J98.4 ; Arthritis M19.90 ; Back pain M54.9 ; Body mass index (BMI) of 45.0-49.9 in adult Z68.42 and Morbid (severe) obesity due to excess calories E66.01 [place] [id number] [place] [address] 71797- 2667 Aug, Back pain M54.9 [facility] [address] [facility] [id number] [address]- 5356 Aug, Back pain M54.9 [facility] [address] [facility] [id number] [place] [address] 84095 2546 Jul, [facility] [address] [facility] [id number] [place] [address] 09545- 3666 Jul, Back pain M54.9 [facility] [address] [facility] [id number] [place] [address] 87447- 9720 Jul, Back pain M54.9 [facility] [address] [facility] [id number] [place] [address] 64410- 9916 Jun, Back pain M54.9 [facility] [address] [facility] [id number] [place] [address] 12635- 7972 Jun, Back pain M54.9 [facility] [address] [facility] [id number] [place] [address] 23154- 8278 May, Back pain M54.9 [facility] [address] [facility] [id number] [place] [address] 51297- 8456 May, Back pain M54.9 [facility] [address] [facility] [id number] [place] [address] 92706 2546 May, Back pain M54.9 [facility] [address] [facility] [id number] [place] [address] 03605 254 May, Back pain M54.9 [facility] [address] [facility] [id number], [place] [address]- 5226 May, [facility] [address] [facility] [id number] [place] [address] 00587- 2542 05 May, 2016 Back pain M54.9 and Pain in right knee M25.561 [facility] [address] [facility] [id number] [place] [address] 98338- 2467 Apr, [facility] [address] [place] [address] 42076- 2663 Apr, Type 2 diabetes mellitus without complication E11.9 ; Pain in right knee M25.561 and Pain in left knee M25.562 [facility] [address] [place] [address] 24267- 6068 Mar, [facility] [id number] [place] [address] 82693- 2391 Mar, [facility] [id number] [place] [address] 16840- 2756 Mar, [facility] [id number] [place] [address] 84010- 9577 Mar, Restrictive lung disease J98.4 ; Anemia D64.9 and Cor pulmonale I27.81 [facility] [id number] [place] [address] 11071- 7617 Mar, [facility] [id number] [place] [address] 14122- 3599 14 Mar, 2016 [facility] [id number] [place] [address] 90357- 4134 Mar, [facility] [id number] [place] [address] 34510- 0963 30 Feb, 2016 [facility] [id number] [place] [address] 94837- 2713 29 Feb, 2016 [facility] [id number] [place] [address] 01811- 7689 28 Feb, 2016 [facility] [id number] [place] [address] 34955- 9522 27 Feb, 2016 Restrictive lung disease J98.4 [facility] [address] [place] [address] 05325- 8706 23 Feb, 2016 [facility] [id number] [place] [address] 99164 -3175 Feb, [facility] [address] [address]- 5534 Feb, [facility] [id number] [place] [address] 88333- 8988 Jan, [facility] [id number] [place] [address] 68006- 9224 Jan, [facility] [id number] [place] [address] 71092- 9743 Jan, [facility] [id number] [place] [address] 20790- 3652 Jan, [facility] [id number] [place] [address] 90145- 0477 Jan, Restrictive lung disease J98.4 ; Anemia D64.9 and Cor pulmonale I27.81 [facility] [id number] [place] [address] 41237- 0736 Dec, [facility] [id number] [place] [address] 69194- 2953 Dec, [facility] [id number] [place] [address] 35766- 8770 Nov, Arthritis M19.90 and Hypokalemia E87.6 [facility] [id number] [place] [address] 15896- 0365 Nov, Back pain M54.9 [facility] [id number] [place] [address] 56856- 5582 October, Back pain M54.9 [facility] [id number] [place] [address] 05307- 4221 October, Back pain M54.9 [facility] [id number] [place] [address] 65414- 2801 Sep, Scabies exposure Z20.89 [facility] [id number] [place] [address] 39977- 7300 Sep, Restrictive lung disease J98.4 [facility] [id number] [place] [address] 98914- 2409 Sep, Back pain M54.9 [facility] [id number] [place] [address] 32467- 9651 Sep, Restrictive lung disease J98.4 [facility] [id number] [place] [address] 45767- 0368 Aug, [facility] [id number] [place] [address] 64600- 4466 Aug, [facility] [id number] [place] [address] 84851- 5623 Aug, [facility] [id number] [place] [address] 25864- 9365 Aug, [facility] [id number] [place] [address] 74482- 2924 Aug, Back pain M54.9 [facility] [id number] [place] [address] 82350- 8689 Jul, Anemia D64.9 and Prediabetes R73.09 [facility] [id number] [place] [address] 26854- 6536 Jul, Back pain M54.9 [facility] [id number] [place] [address] 24030- 2501 Jul, Back pain M54.9 [facility] [id number] [place] [address] 39682- 2130 Jul, [facility] [id number] [place] [address] 31564- 0847 Jul, Bronchitis J40 and Anemia D64.9 [facility] [id number] [place] [address] 31241- 4254 Jun, [facility] [id number] [place] [address] 34121- 5260 Jun, [facility] [address] 83754- 1646 Jun, Bronchitis J40 and Anemia D64.9 [facility] [id number] [place] [address] 77592- 0503 Jun, [facility] [id number] [place] [address] 30284- 2322 Jun, Back pain M54.9 [facility] [id number] [place] [address] 20690- 2722 Jun, Anemia D64.9 [facility] [id number] [place] [address] 92254- 5590 Jun, Restrictive lung disease J98.4 ; Anemia D64.9 ; Hypothyroidism E03.9 ; Cor pulmonale I27.81 and Back pain M54.9 [facility] [id number] [place] [address] 45690- 8456 May, [facility] [id number] [place] [address] 70440- 8674 Apr, Anemia D64.9 ; Encounter for immunization Z23 and Restrictive lung disease J98.4 [facility] [id number] [place] [address] 99564- 6175 Apr, [facility] [id number] [place] [address] 77949- 2213 Mar, [facility] [id number] [place] [address] 26476- 3863 Mar, Iron deficiency anemia D50.9 [facility] [id number] [place] [address] 49401- 4567 Mar, [facility] [id number] [place] [address] 53195- 8734 Mar, [place] [id number] [place] [address] 31992- 9295 Mar, Anemia D64.9 [facility] [id number] [place] [address] 73072- 7856 Mar, [facility] [id number] [place] [address] 71215- 4295 Mar, Anemia D64.9 [facility] [id number] [place] [address] 04185- 8191 Mar, Restrictive lung disease J98.4 and Anemia D64.9 [facility] [facility] [id number] [place] [address] 73740- 0213 Mar, [facility] [id number] [place] [address] 15340- 5682 Mar, Anemia D64.9 [facility] [id number] [place] [address] 79727- 7289 Mar, Anemia D64.9 [facility] [id number] [place] [address] 63509- 2226 Mar, [facility] [id number] [place] [address] 52719- 3091 Mar, Diabetes mellitus E11.9 ; Bronchitis J40 and Anemia D64.9 [facility] [id number] [place] [address] 19444 2548 30 Feb, 2015 [facility] [id number] [place] [address] 31330- 2542 25 Feb, 2015 [facility] [id number] [place] [address] 67339- 6904 15 Feb, 2015 [facility] [id number] [place] [address] 05284- 2540 04 Feb, 2015 [facility] [id number] [place] [address] 63273- 9626 Jan, [facility] [id number] [address] 6905 Jan, [facility] [id number] [place] [address] 67812- 5864 Dec, Venous insufficiency 459.81 [facility] [id number] [place] [address] 12461- 3873 Dec, [facility] [address] 28199- 5021 Dec, [facility] [id number] [place] [address] 96110- 7929 Dec, Coronary atherosclerosis of unspecified type of vessel, [place] or graft 414.00 ; Unspecified anemia 285.9 and Generalized osteoarthrosis , unspecified site 715.00 [facility] [id number] [place] [address] 60692- 9353 Nov, [facility] [id number] [place] [address] 47002- 0519 Nov, [facility] [id number] [place] [address] 19261- 7396 Nov, [facility] [id number] [place] [address] 22340- 2689 October, [facility] [id number] [place] [address] 66084- 6502 October, Acute bronchitis 466.0 and Shortness of breath 786.05 [facility] [id number] [address]- 7488 Sep, [facility] [id number] [place] [address] 07141- 6041 Sep, [facility] [id number] [place] [address] 91933- 8484 Aug, [facility] [id number] [place] [address] 67131- 6442 Aug, [facility] [place] [facility] [address] [id number] [place] [address]- 1375 Jul, [facility] [place] [facility] [address] [id number] [place] [address]- 1559 Jul, 2014 [facility] [place] [facility] [address] [id number] [place] [address]- 0967 Jul, [facility] [place] [facility] [address] [id number] [place] [address]- 0505 Jul, [facility] [place] [facility] [address] [id number] [place] [address]- 2784 Jun, [facility] [place] [facility] [address] [id number] [place] [address]- 3152 Jun, [facility] [place] [facility] [address] [id number] [place] [address]- 1055 Jun, [facility] [place] [facility] [address] [id number] [place] [address]- 0350 Jun, [facility] [place] [facility] [address] [id number] [place] [address]- 6006 Jun, [facility] [place] [facility] [address] [id number] [place] [address]- 1444 Jun, [facility] [place] [facility] [address] [id number] [place] [address]- 7584 May, [facility] [place] [facility] [address] [id number] [place] [address]- 7636 May, [facility] [place] [facility] [address] [id number] [place] [address]- 3627 May, [facility] [place] [facility] [address] [id number] [place] [address]- 5351 May, [facility] [place] [facility] [address] [id number] [place] [address]- 8750 Apr, [facility] [place] [facility] [address] [id number] [place] [address]- 8972 Apr, [facility] [place] [facility] [address] [id number] [place] [address]- 8059 Apr, [facility] [place] [facility] [address] [id number] [place] [address]- 6416 Apr, [facility] [place] [facility] [address] [id number] [place] [address]- 1969 Apr, [facility] [place] [facility] [address] [id number] [place] [address]- 8635 Apr, [facility] [place] [facility] [address] [id number] [place] [address]- 0574 Mar, [facility] [place] [facility] [address] [id number] [place] [address]- 1793 Mar, [facility] [place] [facility] [address] [id number] [place] [address]- 4895 Mar, [facility] [place] [facility] [address] [id number] [place] [address]- 9014 Mar, [facility] [place] [facility] [address] [id number] [place] [address]- 6149 Mar, [facility] [place] [facility] [address] [id number] [place] [address]- 5510 Mar, [facility] [place] [facility] [address] [id number] [place] [address]- 7336 Mar, [facility] [place] [facility] [address] [id number] [place] [address]- 8634 Mar, [facility] [place] [facility] [address] [id number] [place] [address]- 2698 Feb, [facility] [place] [facility] [address] [id number] [place] [address]- 1739 Feb, [facility] [place] [facility] [address] [id number] [place] [address]- 4201 Jan, [facility] [place] [facility] [address] [id number] [place] [address]- 0664 Jan, [facility] [place] [facility] [address] [id number] [place] [address]- 8771 Jan, [facility] [place] [facility] [address] [id number] [place] [address]- 4531 Jan, [facility] [place] [facility] [address] [id number] [place] [address]- 3481 Jan, [facility] [place] [facility] [address] [id number] [place] [address]- 3604 Jan, [facility] [place] [facility] [address] [id number] [place] [address]- 1744 Dec, [facility] [place] [facility] [address] [id number] [place] [address]- 3698 Dec, [facility] [place] [facility] [address] [id number] [place] [address]- 3485 Dec, [facility] [place] [facility] [address] [id number] [place] [address]- 5196 Dec, [facility] [place] [facility] [address] [id number] [place] [address]- 9413 Nov, [facility] [place] [facility] [address] [id number] [place] [address]- 1852 Nov, [facility] [place] [facility] [address] [id number] [place] [address]- 5015 Nov, [facility] [place] [facility] [address] [id number] [place] [address]- 6603 Nov, [facility] [place] [facility] [address] [id number] [place] [address]- 5457 Nov, [facility] [place] [facility] [address] [id number] [place] [address]- 1313 Nov, [facility] [place] [facility] [address] [id number] [place] [address]- 5697 Nov, [facility] [place] [facility] [address] [id number] [place] [address]- 8564 Nov, [facility] [place] [facility] [address] [id number] [place] [address]- 1262 Nov, [facility] [place] [facility] [address] [id number] [place] [address]- 4480 Nov, [facility] [place] [facility] [address] [id number] [place] [address]- 5220 Nov, [facility] [place] [facility] [address] [id number] [place] [address]- 1474 Nov, [facility] [place] [facility] [address] [id number] [place] [address]- 9614 October, [facility] [place] [facility] [address] [id number] [place] [address]- 9983 October, [facility] [place] [facility] [address] [id number] [place] [address]- 3579 October, [facility] [place] [facility] [address] [id number] [place] [address]- 8037 October, [facility] [place] [facility] [address] [id number] [place] [address]- 1232 October, [facility] [place] [facility] [address] [id number] [place] [address]- 2558 October, [facility] [place] [facility] [address] [id number] [place] [address]- 8487 October, [facility] [place] [facility] [address] [id number] [place] [address]- 9625 October, [facility] [place] [facility] [address] [id number] [place] [address]- 1188 October, [facility] [place] [facility] [address] [id number] [place] [address]- 6761 Sep, [facility] [place] [facility] [address] [id number] [address]- 8581 Sep, [facility] [place] [facility] [address] [id number] [place] [address]- 4541 Sep, [facility] [place] [facility] [address] [id number] [place] [address]- 7975 Sep, [facility] [place] [facility] [address] [id number] [place] [address]- 8908 Sep, [facility] [place] [facility] [address] [id number] [place] [address]- 7416 Sep, [facility] [place] [facility] [address] [id number] [place] [address]- 2360 Aug, [facility] [place] [facility] [address] [id number] [place] [address]- 5486 Aug, [facility] [place] [facility] [address] [id number] [place] [address]- 5716 Aug, [facility] [place] [facility] [address] [id number] [place] [address]- 2781 Aug, [facility] [place] [facility] [address] [id number] [place] [address]- 4440 Aug, [facility] [place] [facility] [address] [id number] [place] [address]- 5071 Aug, [facility] [place] [facility] [address] [id number] [place] [address]- 6093 Aug, [facility] [place] [facility] [address] [id number] [place] [address]- 3503 Aug, [facility] [place] [facility] [address] [id number] [place] [address]- 8318 Aug, [facility] [place] [facility] [address] [id number] [place] [address]- 8461 Aug, [facility] [place] [facility] [address] [id number] [place] [address]- 3618 Jul, [facility] [place] [facility] [address] [id number] [place] [address]- 8729 Jul, [facility] [place] [facility] [address] [id number] [place] [address]- 6684 Jun, [facility] [place] [facility] [address] [id number] [place] [address]- 7024 Jun, [facility] [place] [facility] [address] [id number] [place] [address]- 7177 Jun, [facility] [place] [facility] [address] [id number] [place] [address]- 7075 Jun, [facility] [place] [facility] [address] [id number] [place] [address]- 3390 Jun, [facility] [place] [facility] [address] [id number] [place] [address]- 4589 Jun, [facility] [place] [facility] [address] [id number] [place] [address]- 5396 Jun, [facility] [place] [facility] [address] [id number] [place] [address]- 7048 Jun, [facility] [place] [facility] [address] [id number] [place] [address]- 6854 May, [facility] [place] [facility] [address] [id number] [place] [address]- 0820 May, [facility] [place] [facility] [address] [id number] [place] [address]- 9826 May, [facility] [place] [facility] [address] [id number] [place] [address]- 9468 May, [facility] [place] [facility] [address] [id number] [place] [address]- 9299 May, [facility] [place] [facility] [address] [id number] [place] [address]- 8985 May, [facility] [place] [facility] [address] [id number] [place] [address]- 3597 May, [facility] [place] [facility] [address] [id number] [place] [address]- 2892 May, [facility] [place] [facility] [address] [id number] [place] [address]- 1868 May, [facility] [place] [facility] [address] [id number] [place] [address]- 6053 Apr, [facility] [place] [facility] [address] [id number] [place] [address]- 7837 Apr, [facility] [place] [facility] [address] [id number] [place] [address]- 0075 Apr, [facility] [place] [facility] [address] [id number] [place] [address]- 3409 Apr, [facility] [place] [facility] [address] [id number] [place] [address]- 4744 Mar, [facility] [place] [facility] [address] [id number], [place] [address]- 0015 Mar, [facility] [place] [facility] [address] [id number], [place] [address]- 4076 Mar, [facility] [place] [facility] [address] [id number], [place] [address]- 4817 Mar, [facility] [place] [facility] [address] [id number], [place] [address]- 8643 Mar, [facility] [place] [facility] [address] [id number], [place] [address]- 1448 Mar, [facility] [place] [facility] [address] [id number], [place] [address]- 7033 Mar, [facility] [place] [facility] [address] [id number], [place] [address]- 0906 Mar, [facility] [place] [facility] [address] [id number], [place] [address]- 8377 Mar, [facility] [place] [facility] [address] [id number] [place] [address]- 8062 25 Mar, 2012 [facility] [address] [id number] [place] [address]- 2540 18 Mar, 2012 [facility] [place] [facility] [address] [id number] [place] [address]- 7723 18 Mar, 2012 [facility] [address] [id number] [place] [address]- 0486 18 Mar, 2012 [facility] [place] [facility] [address] [id number] [place] [address]- 8271 18 Mar, 2012 [facility] [address] [id number] [place] [address]- 5592 18 Mar, 2012 [facility] [place] [facility] [address] [id number] [place] [address]- 5530 18 Mar, 2012 [facility] [address] [id number] [place] [address]- 0262 17 Mar, 2012 [facility] [address] [id number] [place] [address]- 8146 17 Mar, 2012 [facility] [place] [facility] [address] [id number] [place] [address]- 7770 15 Mar, 2012 [facility] [address] [id number] [place] [address]- 2273 15 Mar, 2012 [facility] [place] [facility] [address] [id number] [place] [address]- 3794 14 Mar, 2012 [facility] [place] [facility] [address] [id number], [place] [address]- 9026 14 Mar, 2012 [facility] [place] [facility] [address] [id number] [place] [address]- 9664 14 Mar, 2012 [facility] [place] [facility] [address] [id number] [place] [address]- 2885 14 Mar, 2012 [facility] [place] [facility] [address] [id number] [place] [address]- 7850 Mar, [facility] [place] [facility] [address] [id number] [place] [address]- 5869 Mar, [facility] [place] [facility] [address] [id number] [place] [address]- 2276 Mar, [facility] [place] [facility] [address] [id number] [place] [address]- 6817 Mar, [facility] [place] [facility] [address] [id number] [place] [address]- 2975 Mar, [facility] [place] [facility] [address] [id number] [place] [address]- 5572 Mar, [facility] [place] [facility] [address] [id number] [place] [address]- 4682 Mar, [facility] [place] [facility] [address] [id number] [place] [address]- 6446 Mar, [facility] [place] [facility] [address] [id number] [place] [address]- 9069 Mar, [facility] [place] [facility] [address] [id number] [place] [address]- 2565 Feb, [facility] [place] [facility] [address] [id number] [place] [address]- 6799 Feb, [facility] [place] [facility] [address] [id number] [place] [address]- 0436 Feb, [facility] [place] [facility] [address] [id number], [place] [address]- 2092 Feb, [facility] [place] [facility] [address] [id number] [place] [address]- 7593 Jan, [facility] [place] [facility] [address] [id number] [place] [address]- 0762 Jan, [facility] [place] [facility] [address] [id number] [place] [address]- 2076 Jan, [facility] [place] [facility] [address] [id number], [place] [address]- 1680 Jan, [facility] [address] [id number] [place] [address]- 9514 Jan, [facility] [place] [facility] [address] [id number] [place] 5158 Jan, [facility] [place] [facility] [address] [id number] [place] [address]- 2034 Dec, [facility] [place] [facility] [address] [id number] [place] [address]- 5939 Dec, [facility] [place] [facility] [address] [id number] [place] [address]- 8471 Dec, [facility] [place] [facility] [address] [id number] [place] [address]- 6160 Dec, [facility] [address] [id number] [place] [address]- 4480 Dec, [facility] [place] [facility] [address] [id number] [place] [address]- 6276 Dec, [facility] [place] [facility] [address] [id number] [place] [address]- 3105 Dec, [facility] [place] [facility] [address] [id number] [place] [address]- 4904 Dec, [facility] [place] [facility] [address] [id number] [place] [address]- 9489 Dec, [facility] [place] [facility] [address] [id number] [place] [address]- 8047 Dec, [facility] [place] [facility] [address] [id number] [place] [address]- 3982 Dec, [facility] [place] [facility] [address] [id number] [place] [address]- 6866 October, [facility] [place] [facility] [address] [id number] [place] [address]- 6016 October, [facility] [place] [facility] [address] [id number], [place] [address]- 0026 October, [facility] [id number] [address]- 5840 October, [facility] [id number] [address]- 0400 Sep, [facility] [id number] [address]- 4086 Sep, [facility] [id number], [place] [address]- 8484 Sep, [facility] [id number] [place] [address] 65[address]- 1180 Sep, [facility] [id number] [address]- 9115 Sep, [facility] [id number] [place] [address] 913[address]- 2220 Sep, [facility] [id number], [place] [address]- 4436 Sep, [facility] [id number], [place] [address]- 5957 Sep, [facility] [id number], [place] [address]- 7166 Sep, [facility] [id number] [address]- 5888 Sep, [facility] [address] [id number] [address]- 0915 Sep, IMMUNIZATIONS No Known Immunizations SOCIAL HISTORY Never Assessed REASON FOR VISIT leg swelling f/u - dayana cerda , swelling going down - Dayana Cerda PLAN OF CARE Activity Details Follow Up Will call after lab Reason: Pending Test BMP VITAL SIGNS Height 62 in 2018-05-19 Temperature 97.0 degrees Fahrenheit 2018-05-19 Heart Rate 58 bpm 2018-05-19 Respiratory Rate 20 2018-05-19 Blood pressure systolic 110 mmHg 2018-05-19 Blood pressure diastolic 70 mmHg 2018-05-19 MEDICATIONS Medication Instructions Dosage Frequency Start Date End Date Duration Status Fentanyl 75 MCG/HR Transdermal once every 3 days. 1 patch to skin May Active Synthroid 200 MCG TAKE 1 TABLET (175 MCG) BY ORAL ROUTE ONCE DAILY 30 Active Potassium Chloride Angie ER 20 meq Orally Twice a day 1 tablet 12h Active Hospital Bed as directed Mar, Active Toprol XL 25 mg 0.5 Tablet by Oral route 1 time per day Nov, Active Wheelchair - to use for mobility daily Bariatric 24h Aug, Active Lasix 80 MG Orally Once a day 1 tablet 24h Dec, Active Flexeril 10 mg take 1 tablet (10 mg) by oral route 3 times per day PRN pain Jan, Active ProAir HFA 108 (90 Base) MCG/ACT Inhalation every 6 hrs 2 puffs as needed 6h Nov, Active Glucophage 500 MG 1 TABLET BY ORAL ROUTE 1 TIME PER DAY WITH MEALS TWICE DAILY. Active Lipitor 80 MG Orally Once a day 1 tablet 24h Active Imdur 30 MG Orally Once a day 1 tablet 24h Active Zaroxolyn 5 MG Orally Once a day, 30 minutes before you take Lasix 1 tablet Apr, 30 day(s) Active Lomotil 2.5-0.025 MG Orally Four times a day 1 tablet as needed 6h Dec, Active Aspirin 81 mg take 1 tablet (81 mg) by oral route once daily Sep, Active Latanoprost 0.005 % Ophthalmic Once a day 1 drop into affected eye in the evening 24h Active Wheelchair - use heavy duty wheel chair for mobility 24h Nov, Active Glucophage 500 1 TABLET BY ORAL ROUTE 1 TIME PER DAY WITH MEALS TWICE DAILY. Active Percocet 7.5-325 MG Orally 4 times a day 1 tablet 6h May, 28 days Active Omeprazole 40 MG Orally Once a day 1 capsule 24h Active RESULTS No Results PROCEDURES Procedure Date Ordered Result [facility] 2018 INSTRUCTIONS MEDICATIONS ADMINISTERED No Known Medications [...] problems 09/2015 Hospitalization History Acute dyspnea, muscle cramps--[facility] 03/04/16 Hospitalization History RLE Cellulitis, Hypokalemia, anemia-[facility] 09/29/15 Hospitalization History Lower edema 09/2016 Hospitalization History Received stitches ER 10/2016 Hospitalization History hallucinations/ dimished mental capasity 03/19-03/21/18
--- OUTSIDE RECORDS SUMMARY | 2018-07-12 08:00 | XMS REPORT ---
Author Author JAN HERNANDEZ [facility] Address [address] [place] [address] Care Team Providers Care Customer Account Administrator Name Role Phone JAN HERNANDEZ Unavailable PROBLEMS Type Condition ICD9-CM Code JYH59-TD Code Onset Dates Condition Status SNOMED Code Problem Prediabetes R73.09 Active 3513263 Problem Hypokalemia E87.6 Active 28225014 Problem Arthritis M19.90 Active 6318808 Problem Neuropathy G62.9 Active 937964743 Problem Obesity hypoventilation syndrome E66.2 Active 501436295 Problem 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 Active 083755143 Problem Body mass index (BMI) of 45.0-49.9 in adult Z68.42 Active 371640765 Problem Coronary artery disease involving [place] coronary artery of [place] heart without angina pectoris I25.10 Active 7267744644252 Problem Venous insufficiency I87.2 Active 23611038 Problem Anemia D64.9 Active 615446147 Problem Cor pulmonale I27.81 Active 87507283 Problem Back pain M54.9 Active 770167864 Problem Restrictive lung disease J98.4 Active 63828363 Problem Hypothyroidism E03.9 Active 94358787 ALLERGIES No Information ENCOUNTERS Encounter Location Date Diagnosis [facility] [address] [id number] [address] May, [facility] [address], [place] [address] 6[address] May, [facility] [address], [place] [address] 9121 Apr, [facility] [address] [id number], [place] [address] 4428 Apr, Cor pulmonale I27.81 [facility] [address] 80007- 7516 Apr, Venous insufficiency I87.2 [facility] [address] 37905- 2163 Apr, [facility] [address] 68482- 1785 Apr, Neuropathy G62.9 and Prediabetes R73.09 [facility] [address] 15577- 0997 Apr, [facility] [address] 96502- 0183 Apr, [facility] [address] 24716- 5953 Apr, [facility] [address] 34625 -7814 Apr, Swelling of right lower extremity M79.89 [facility] [address] 39481- 2983 Apr, [facility] [address] 63748- 0483 Mar, Bronchitis J40 [facility] [address] 12854- 6006 Mar, [facility] [address] 46797- 7194 Mar, 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 ; Encounter for immunization Z23 and Arthritis M19.90 [facility] [address] 38009- 4863 Mar, Arthritis M19.90 and Back pain M54.9 [facility] [address] 32239- 2835 Mar, [facility] [address] 18412- 7024 Mar, [facility] [address] [facility] [id number] [address] Feb, Arthritis M19.90 [facility] [address] [facility] [id number] [place] [address] 10436- 4826 Jan, Arthritis M19.90 [facility] [id number] [place] [address] 12267- 5939 Jan, Back pain M54.9 and Arthritis M19.90 [facility] [address] [facility] [id number] [place] [address] 68582- 7597 Jan, [facility] [id number] [place] [address] 21907- 5347 Jan, Back pain M54.9 [facility] [id number] [place] [address] 20165- 9769 Jan, Arthritis M19.90 [facility] [id number] [place] [address] 93066- 3503 Jan, Back pain M54.9 [facility] [id number] [place] [address] 07955- 1513 Jan, [facility] [id number] [place] [address] 53038- 1499 Jan, Back pain M54.9 [facility] [id number] [place] [address] 91547- 9823 Dec, Ingrowing nail with infection L60.0 and Onychomycosis B35.1 [facility] [id number], [place] [address] 2742 Dec, Arthritis M19.90 [facility] [id number] [place] [address] 15383- 3091 Dec, Ingrowing nail L60.0 [facility] [id number] [place] [address] 59392- 6256 Dec, Back pain M54.9 [facility] [address] [id number] [address] Dec, [facility] [id number] [place] [address] 65273- 6283 Dec, Back pain M54.9 [facility] [id number] [place] [address] 77691- 2622 Nov, Arthritis M19.90 [facility] [id number] [place] [address] 65113- 4676 Nov, [facility] [id number] [place] [address] 56721- 7167 Nov, Arthritis M19.90 ; Anemia D64.9 ; Restrictive lung disease J98.4 ; Weakness R53.1 and BMI 50.0-59.9, adult Z68.43 [facility] [id number] [place] [address] 05227- 5282 Nov, Arthritis M19.90 [facility] [id number] [place] [address] 56094- 3567 Nov, Back pain M54.9 [facility] [id number] [place] [address] 36691- 7150 October, Back pain M54.9 [facility] [id number] [place] [address] 40232- 5050 October, Back pain M54.9 [facility] [id number] [place] [address] 89078- 9555 Sep, Back pain M54.9 [facility] [id number] [place] [address] 24963- 5039 Sep, Back pain M54.9 [facility] [id number] [place] [address] 81222 -9385 06 Sep, 2017 [facility] [id number] [place] [address] 49825 -3137 Sep, [facility] [address], [place] [address] Sep, Swelling of right lower extremity M79.89 and Cellulitis of right lower extremity L03.115 [facility] [address], [place] [address] 4962 27 Aug, 2017 Back pain M54.9 [facility] [id number] [place] [address] 97929- 0300 15 Aug, 2017 Back pain M54.9 [facility] [id number] [place] [address] 68545- 1518 Aug, [facility] [id number] [place] [address] 11704- 5097 Aug, Cellulitis of right lower extremity L03.115 ; Ventral hernia without obstruction or gangrene K43.9 and BMI 50.0-59.9, adult Z68.43 [facility] [address] [place] [address] 22884- 2824 Jul, Back pain M54.9 [facility] [id number] [place] [address] 29437- 3972 Jul, 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42 [facility] [id number] [place] [address] 77642- 1533 15 Jul, 2017 Back pain M54.9 [facility] [id number] [place] [address] 56569 2546 05 Jul, 2017 Back pain M54.9 [facility] [id number] [place] [address] 59919 2546 Jun, Back pain M54.9 [facility] [id number] [place] [address] 11872 2548 Jun, Back pain M54.9 [facility] [id number] [place] [address] 10755 -1121 May, Skin cancer of face C44.300 and BMI 45.0-49.9, adult Z68.42 [facility] [id number] [place] [address] 52669- 5586 May, [facility] [id number] [place] [address] 80381 254 May, Back pain M54.9 [facility] [id number] [place] [address] 60559- 8006 May, Back pain M54.9 [facility] [id number] [place] [address] 55195 2547 May, Back pain M54.9 [facility] [id number] [place] [address] 92596 2546 Apr, Back pain M54.9 [facility] [id number] [place] [address] 47979 2546 Apr, Back pain M54.9 [facility] [id number] [place] [address] 22436 2546 Mar, Back pain M54.9 [facility] [id number] [place] [address] 21369 2546 Mar, Anemia D64.9 ; Encounter for immunization Z23 ; Arthritis M19.90 and Right inguinal hernia K40.90 [facility] [id number] [place] [address] 00414- 9879 Mar, Back pain M54.9 [facility] [id number] [place] [address] 41010- 8536 Feb, Back pain M54.9 [facility] [address] 91670 2546 13 Feb, 2017 Back pain M54.9 [facility] [id number] [place] [address] 82562- 0181 Jan, Back pain M54.9 [facility] [id number] [place] [address] 99597- 7040 Jan, Back pain M54.9 [facility] [address] 64483- 1347 Jan, [facility] [id number] [place] [address] 79804- 8189 Jan, Back pain M54.9 [facility] [address] 38953- 6240 Dec, Back pain M54.9 [facility] [id number] [place] [address] 17064- 4580 Dec, Back pain M54.9 [facility] [id number] [place] [address] 81363 2541 Dec, [facility] [id number] [place] [address] 85434 2549 Nov, Hypokalemia E87.6 [facility] [id number] [place] [address] 71262- 0971 Nov, Back pain M54.9 [facility] [id number] [place] [address] 13970 2545 Nov, [facility] [id number] [place] [address] 64771- 7752 Nov, Arthritis M19.90 [facility] [address] 51298- 2043 Nov, Back pain M54.9 [facility] [id number] [place] [address] 93141- 1683 Nov, Generalized edema R60.1 [facility] [address] 37870- 5974 Nov, Back pain M54.9 [facility] [address] 04197- 1828 07 Nov, 2016 Pain in right knee M25.561 [facility] [id number] [place] [address] 97542- 9031 05 Nov, 2016 Encounter for removal of sutures Z48.02 and Pain in right knee M25.561 [facility] [id number] [place] [address] 32026 -0998 Nov, Abrasion of right foot, subsequent encounter S90.811D [facility] [id number] [place] [address] 56751 -0305 October, Toe abrasion, right, initial encounter S90.414A [facility] [id number] [place] [address] 30649- 3604 October, [facility] [id number] [place] [address] 32200- 0633 October, Back pain M54.9 [facility] [id number] [place] [address] 41908- 1406 October, Venous insufficiency I87.2 [facility] [id number] [place] [address] 44251- 7137 October, Pain in right knee M25.561 [facility] [address] 44877- 1641 Sep, Back pain M54.9 [facility] [id number] [place] [address] 19162- 5073 Sep, Venous insufficiency I87.2 [facility] [address] [id number] Sep, [facility] [address] 32258 -1834 Sep, Leg edema, right R60.0 and Cellulitis of right lower extremity L03.115 [facility] [address] 42154- 3660 14 Sep, 2016 Pedal edema R60.0 [facility] [address] 73437- 1803 Sep, 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 ; Pain in right knee M25.561 and Arthritis M19.90 [facility] [id number] [place] [address] 64405- 3004 Aug, Back pain M54.9 [facility] [address] 20505- 2408 Aug, Back pain M54.9 [facility] [id number] [place] [address] 66305- 3444 Aug, [facility] [address] 56643- 3190 Aug, Type 2 diabetes mellitus without complication E11.9 ; Restrictive lung disease J98.4 ; Arthritis M19.90 ; Back pain M54.9 ; Body mass index (BMI) of 45.0-49.9 in adult Z68.42 and Morbid (severe) obesity due to excess calories E66.01 [facility] [id number] [place] [address] 35011- 8475 Aug, Back pain M54.9 [facility] [facility] [address] 26353- 4186 Aug, Back pain M54.9 [facility] [address] [facility] [id number], [place] [address] 2546 Jul, [facility] [address] [facility] [id number] [place] [address] 60742 2546 Jul, Back pain M54.9 [facility] [address] [facility] [id number] [place] [address] 16657 2546 Jul, Back pain M54.9 [facility] [address] [facility] [id number] [place] [address] 86015- 4244 Jun, Back pain M54.9 [facility] [address] [facility] [id number] [place] [address] 60111- 6007 Jun, Back pain M54.9 [facility] [address] [facility] [id number] [place] [address] 65270- 6393 May, Back pain M54.9 [facility] [address] [facility] [id number] [place] [address] 37739 2546 16 May, 2016 Back pain M54.9 [facility] [address] [facility] [id number] [place] [address] 15975 2546 May, Back pain M54.9 [facility] [address] [facility] [id number] [place] [address] 10891 2546 May, Back pain M54.9 [facility] [address] [facility] [id number] [place] [address] 40183 2546 May, [facility] [address] [facility] [id number] [place] [address] 08643 2547 05 May, 2016 Back pain M54.9 and Pain in right knee M25.561 [facility] [address] [facility] [id number], [place] [address]- 2546 Apr, [facility] [address] [facility] [id number] [place] [address] 26133- 1533 Apr, Type 2 diabetes mellitus without complication E11.9 ; Pain in right knee M25.561 and Pain in left knee M25.562 [facility] [id number] [place] [address] 59645- 1969 Mar, [facility] [id number] [place] [address] 00477- 4820 Mar, [facility] [id number] [place] [address] 06359- 6088 Mar, [facility] [id number] [place] [address] 80290- 8543 18 Mar, 2016 Restrictive lung disease J98.4 ; Anemia D64.9 and Cor pulmonale I27.81 [facility] [id number] [place] [address] 98125- 4410 Mar, [facility] [id number] [place] [address] 85169- 8313 14 Mar, 2016 [facility] [id number] [place] [address] 79214- 5439 Mar, [facility] [id number] [place] [address] 50974- 4978 30 Feb, 2016 [facility] [id number] [place] [address] 38307- 7466 29 Feb, 2016 [facility] [id number] [place] [address] 46927- 3435 28 Feb, 2016 [facility] [id number] [place] [address] 25685- 9079 27 Feb, 2015 Restrictive lung disease J98.4 [facility] [id number] [place] [address] 86929- 2595 23 Feb, 2016 [facility] [id number] [place] [address] 65103 -1186 22 Feb, 2016 [facility] [id number] [place] [address] 27686- 9469 Feb, [facility] [address], [place] [address]- 5038 Jan, [facility] [id number] [place] [address] 17595- 4653 Jan, [facility] [id number] [place] [address] 37858- 1829 Jan, [facility] [id number] [place] [address] 62543- 9988 Jan, [facility] [id number] [place] [address] 89061- 7789 Jan, Restrictive lung disease J98.4 ; Anemia D64.9 and Cor pulmonale I27.81 [facility] [id number] [place] [address] 42222- 0139 Dec, [facility] [id number] [place] [address] 15296- 4556 Dec, [facility] [id number] [place] [address] 60019- 4028 Nov, Arthritis M19.90 and Hypokalemia E87.6 [facility] [address] [id number] [address]- 6830 Nov, Back pain M54.9 [facility] [id number] [place] [address] 58617- 1025 October, Back pain M54.9 [facility] [id number] [place] [address] 84623- 7202 October, Back pain M54.9 [facility] [id number] [place] [address] 96211- 0790 Sep, Scabies exposure Z20.89 [facility] [address], [place] [address]- 7256 Sep, Restrictive lung disease J98.4 [facility] [id number] [place] [address] 38039- 1464 Sep, Back pain M54.9 [facility] [id number] [place] [address] 72743- 1486 Sep, Restrictive lung disease J98.4 [facility] [id number] [place] [address] 42102 2546 Aug, [facility] [id number] [place] [address] 09967 2544 Aug, [facility] [id number] [place] [address] 49896- 1676 Aug, [facility] [id number] [place] [address] 62717- 8386 Aug, [facility] [id number] [place] [address] 24185- 7571 Aug, Back pain M54.9 [facility] [id number] [place] [address] 24965 2546 Jul, Anemia D64.9 and Prediabetes R73.09 [facility] [id number] [place] [address] 89724- 6546 Jul, Back pain M54.9 [facility] [id number] [place] [address] 22117 2546 Jul, Back pain M54.9 [facility] [id number] [place] [address] 14549 2546 Jul, [facility] [id number] [place] [address] 84834 2546 Jul, Bronchitis J40 and Anemia D64.9 [facility] [id number] [place] [address] 96143 2546 Jun, [facility] [id number] [place] [address] 78204 2546 Jun, [facility] [id number] [place] [address] 49177- 7836 Jun, Bronchitis J40 and Anemia D64.9 [facility] [address] [address]- [address]139 Jun, [facility] [address] 70029- 1025 Jun, Back pain M54.9 [facility] [address] 93536- 0787 Jun, Anemia D64.9 [place] [address] 44154- 5850 Jun, Restrictive lung disease J98.4 ; Anemia D64.9 ; Hypothyroidism E03.9 ; Cor pulmonale I27.81 and Back pain M54.9 [place] [address] 89978- 4574 May, [facility] [address] 99095- 5346 Apr, Anemia D64.9 ; Encounter for immunization Z23 and Restrictive lung disease J98.4 [place] [address] 66482- 2127 Apr, [facility] [id number] [place] [address] 17079- 6734 Mar, [facility] [address] 97863- 8443 Mar, Iron deficiency anemia D50.9 [facility] [id number] [place] [address] 22779- 5685 Mar, [place] [address] 78815- 2617 Mar, [facility] [id number] [place] [address] 64318- 9589 Mar, Anemia D64.9 [place] [id number] [address] Mar, [facility] [id number] [place] [address] 44117- 4056 Mar, Anemia D64.9 [facility] [id number] [place] [address] 05825 2546 Mar, Restrictive lung disease J98.4 and Anemia D64.9 [facility] [id number] [place] [address] 51813- 7136 Mar, [facility] [id number] [place] [address] 48358- 5206 Mar, Anemia D64.9 [facility] [id number] [place] [address] 49461- 8994 Mar, Anemia D64.9 [facility] [id number] [place] [address] 27205- 1020 Mar, [facility] [id number] [place] [address] 93738- 3442 Mar, Diabetes mellitus E11.9 ; Bronchitis J40 and Anemia D64.9 [facility] [id number], [place] [address] 30 Feb, 2015 [facility] [id number] [place] [address] 47329- 1622 25 Feb, 2015 [facility] [id number] [place] [address] 46646 2545 15 Feb, 2015 [facility] [address] [id number] [place] [address] 19433- 6799 Feb, [facility] [id number] [place] [address] 20307- 6461 Jan, [facility] [id number] [address] 5098 Jan, [facility] [address] [place] [address] 5173 Dec, Venous insufficiency 459.81 [facility] [id number] [place] [address] 68403- 9744 Dec, [facility] [id number] [place] [address] 57689- 4397 Dec, [facility] [id number] [place] [address] 17990- 4570 Dec, Coronary atherosclerosis of unspecified type of vessel, [place] or graft 414.00 ; Unspecified anemia 285.9 and Generalized osteoarthrosis , unspecified site 715.00 [facility] [id number] [place] [address] 80651- 3954 Nov, [facility] [id number] [place] [address] 68744- 8545 Nov, [facility] [id number] [place] [address] 28188- 7205 Nov, [facility] [id number] [place] [address] 36230- 3377 October, [facility] [id number] [place] [address] 96192- 6454 October, Acute bronchitis 466.0 and Shortness of breath 786.05 [facility] [id number] [place] [address] 13866- 6691 Sep, [facility] [id number] [place] [address] 99706- 0138 Sep, [facility] [address], [place] [address]- 5809 Aug, [facility] [id number] [place] [address] 581592- 2910 Aug, [facility] [address], [place] [address]- 9780 Jul, [facility] [id number] [address]- 3208 Jul, [facility] [place] [facility] [address] [id number] [place] [address]- 5520 Jul, [facility] [place] [facility] [address] [id number] [place] [address]- 2546 Jul, [facility] [place] [facility] [address] [id number] [place] [address]- 3939 Jun, [facility] [place] [facility] [address] [id number] [place] [address]- 5442 Jun, [facility] [place] [facility] [address] [id number] [place] [address]- 1572 Jun, [facility] [place] [facility] [address] [id number] [place] [address]- 1722 Jun, [facility] [place] [facility] [address] [id number] [place] [address]- 4670 Jun, [facility] [place] [facility] [address] [id number] [place] [address]- 9166 Jun, [facility] [place] [facility] [address] [id number] [place] [address]- 1873 May, [facility] [place] [facility] [address] [id number] [place] [address]- 8665 May, [facility] [place] [facility] [address] [id number] [place] [address]- 6301 May, [facility] [place] [facility] [address] [id number] [place] [address]- 2323 May, [facility] [place] [facility] [address] [id number] [place] [address]- 1769 Apr, [facility] [place] [facility] [address] [id number] [place] [address]- 0526 Apr, [facility] [place] [facility] [address] [id number] [place] [address]- 8815 Apr, [facility] [place] [facility] [address] [id number] [place] [address]- 4825 Apr, [facility] [place] [facility] [address] [id number] [place] [address]- 1284 Apr, [facility] [place] [facility] [address] [id number] [place] [address]- 3082 Apr, [facility] [place] [facility] [address] [id number] [place] [address]- 6076 Mar, [facility] [place] [facility] [address] [id number] [place] [address]- 7263 Mar, [facility] [place] [facility] [address] [id number] [place] [address]- 6492 Mar, [facility] [place] [facility] [address] [id number] [place] [address]- 4419 Mar, [facility] [place] [facility] [address] [id number] [place] [address]- 7906 Mar, [facility] [place] [facility] [address] [id number] [place] [address]- 7510 Mar, [facility] [place] [facility] [address] [id number] [place] [address]- 0182 Mar, [facility] [place] [facility] [address] [id number] [place] [address]- 3048 Mar, [facility] [place] [facility] [address] [id number], [place] [address]- 0933 Feb, [facility] [place] [facility] [address] [id number] [place] [address]- 6223 Feb, [facility] [place] [facility] [address] [id number] [place] [address]- 4423 Jan, [facility] [place] [facility] [address] [id number] [place] [address]- 7855 Jan, [facility] [place] [facility] [address] [id number] [place] [address]- 0461 Jan, [facility] [place] [facility] [address] [id number] [place] [address]- 5315 Jan, [facility] [place] [facility] [address] [id number] [place] [address]- 6865 Jan, [facility] [place] [facility] [address] [id number] [place] [address]- 1356 Jan, [facility] [place] [facility] [address] [id number] [place] [address]- 5229 Dec, [facility] [place] [facility] [address] [id number] [place] [address]- 0467 Dec, [facility] [place] [facility] [address] [id number] [place] [address]- 9839 Dec, [facility] [place] [facility] [address] [id number] [place] [address]- 7642 Dec, [facility] [place] [facility] [address] [id number] [place] [address]- 5157 Nov, [facility] [place] [facility] [address] [id number] [place] [address]- 0277 Nov, [facility] [place] [facility] [address] [id number] [place] [address]- 5754 Nov, [facility] [place] [facility] [address] [id number] [place] [address]- 0037 Nov, [facility] [place] [facility] [address] [id number] [place] [address]- 0307 Nov, [facility] [place] [facility] [address] [id number] [place] [address]- 4389 Nov, [facility] [place] [facility] [address] [id number] [place] [address]- 9808 Nov, [facility] [place] [facility] [address] [id number] [place] [address]- 4218 Nov, [facility] [place] [facility] [address] [id number] [place] [address]- 1282 Nov, [facility] [place] [facility] [address] [id number] [place] [address]- 8218 Nov, [facility] [place] [facility] [address] [id number] [place] [address]- 8428 Nov, [facility] [place] [facility] [address] [id number] [place] [address]- 7118 Nov, [facility] [place] [facility] [address] [id number] [place] [address]- 5560 October, [facility] [place] [facility] [address] [id number] [place] [address]- 5168 October, [facility] [place] [facility] [address] [id number] [place] [address]- 2088 October, [facility] [place] [facility] [address] [id number] [place] [address]- 4535 October, [facility] [place] [facility] [address] [id number] [place] [address]- 9210 October, [facility] [place] [facility] [address] [id number] [place] [address]- 4265 October, [facility] [place] [facility] [address] [id number] [place] [address]- 8805 October, [facility] [place] [facility] [address] [id number] [place] [address]- 1448 October, [facility] [place] [facility] [address] [id number] [place] [address]- 6702 October, [facility] [place] [facility] [address] [id number] [place] [address]- 8748 Sep, [facility] [place] [facility] [address] [id number] [place] [address]- 7169 Sep, [facility] [place] [facility] [address] [id number] [place] [address]- 4296 Sep, [facility] [place] [facility] [address] [id number] [place] [address]- 2310 Sep, [facility] [place] [facility] [address] [id number] [place] [address]- 9268 Sep, [facility] [place] [facility] [address] [id number] [place] [address]- 4977 Sep, [facility] [place] [facility] [address] [id number] [place] [address]- 5022 Aug, [facility] [place] [facility] [address] [id number] [place] [address]- 1034 Aug, [facility] [place] [facility] [address] [id number] [place] [address]- 1649 Aug, [facility] [place] [facility] [address] [id number] [place] [address]- 4390 Aug, [facility] [place] [facility] [address] [id number] [place] [address]- 0269 Aug, [facility] [place] [facility] [address] [id number] [place] [address]- 0247 Aug, [facility] [place] [facility] [address] [id number] [place] [address]- 0073 Aug, [facility] [place] [facility] [address] [id number] [place] [address]- 4624 Aug, [facility] [place] [facility] [address] [id number] [place] [address]- 2139 Aug, [facility] [place] [facility] [address] [id number] [place] [address]- 8330 Aug, [facility] [place] [facility] [address] [id number] [place] [address]- 2708 Jul, [facility] [place] [facility] [address] [id number] [place] [address]- 9751 Jul, [facility] [place] [facility] [address] [id number] [place] [address]- 9431 Jun, [facility] [address] [id number] [place] [address]- 6794 Jun, [facility] [address] [id number] [place] [address]- 6956 Jun, [facility] [address] [id number] [place] [address]- 8838 Jun, [facility] [address] [id number] [place] [address]- 6343 Jun, [facility] [address] [id number] [place] [address]- 8826 Jun, [facility] [address] [id number] [place] [address]- 2602 Jun, [facility] [address] [id number] [place] [address]- 9039 Jun, [facility] [address] [id number] [place] [address]- 2281 May, [facility] [address] [id number] [place] [address]- 6002 May, [facility] [address] [id number] [place] [address]- 0426 May, [facility] [address] [id number] [place] [address]- 4854 May, [facility] [address] [id number] [place] [address]- 2541 May, [facility] [place] [facility] [address] [id number] [place] [address]- 4271 May, [facility] [address] [id number] [place] [address]- 9913 May, [facility] [address] [id number] [place] [address]- 1973 May, [facility] [place] [facility] [address] [id number] [place] [address]- 3147 May, [facility] [place] [facility] [address] [id number] [place] [address]- 8142 Apr, [facility] [place] [facility] [address] [id number] [place] [address]- 9032 Apr, [facility] [place] [facility] [address] [id number] [place] [address]- 6623 Apr, [facility] [place] [facility] [address] [id number] [place] [address]- 6162 Apr, [facility] [place] [facility] [address] [id number] [place] [address]- 4882 Mar, [facility] [place] [facility] [address] [id number] [place] [address]- 8060 Mar, [facility] [place] [facility] [address] [id number], [place] [address]- 4849 Mar, [facility] [place] [facility] [address] [id number] [place] [address]- 1416 Mar, [facility] [place] [facility] [address] [id number], [place] [address]- 8387 Mar, [facility] [place] [facility] [address] [id number], [place] [address]- 7509 Mar, [facility] [place] [facility] [address] [id number], [place] [address]- 9082 Mar, [facility] [place] [facility] [address] [id number] [place] [address]- 5227 Mar, [facility] [place] [facility] [address] [id number], [place] [address]- 3034 Mar, [facility] [place] [facility] [address] [id number] 3903 Mar, [facility] [place] [facility] [address] [id number] [place] [address]- 3537 18 Mar, 2012 [facility] [place] [facility] [address] [id number] [place] [address]- 0071 18 Mar, 2012 [facility] [place] [facility] [address] [id number], [place] [address]- 9319 18 Mar, 2012 [facility] [place] [facility] [address] [id number] [place] [address]- 3065 18 Mar, 2012 [facility] [place] [facility] [address] [id number] [place] [address]- 5652 18 Mar, 2012 [facility] [place] [facility] [address] [id number] [place] [address]- 6422 18 Mar, 2012 [facility] [place] [facility] [address] [id number] [place] [address]- 1199 17 Mar, 2012 [facility] [place] [facility] [address] [id number], [place] [address]- 3584 17 Mar, 2012 [facility] [place] [facility] [address] [id number], [place] [address]- 8978 15 Mar, 2012 [facility] [place] [facility] [address] [id number] [place] [address]- 5408 15 Mar, 2012 [facility] [place] [facility] [address] [id number], [place] [address]- 3643 14 Mar, 2012 [facility] [place] [facility] [address] [id number], [place] [address]- 4856 14 Mar, 2012 [facility] [place] [facility] [address] [id number], [place] [address]- 1848 14 Mar, 2012 [facility] [place] [facility] [address] [id number], [place] [address]- 0983 14 Mar, 2012 [facility] [place] [facility] [address] [id number], [place] [address]- 7617 12 Mar, 2012 [facility] [place] [facility] [address] [id number], [place] [address]- 2658 11 Mar, 2012 [facility] [place] [facility] [address] [id number] [place] [address]- 6839 Mar, [facility] [place] [facility] [address] [id number] [place] [address]- 6574 Mar, [facility] [place] [facility] [address] [id number] [place] [address]- 2546 Mar, 2012 [facility] [place] [facility] [address] [id number] [place] [address]- 7017 Mar, 2012 [facility] [place] [facility] [address] [id number] [place] [address]- 7623 Mar, [facility] [place] [facility] [address] [id number] [place] [address]- 0008 Mar, [facility] [place] [facility] [address] [id number] [place] [address]- 5207 Mar, [facility] [place] [facility] [address] [id number] [place] [address]- 9296 27 Feb, 2013 [facility] [place] [facility] [address] [id number] [place] [address]- 9109 Feb, [facility] [place] [facility] [address] [id number] [place] [address]- 6719 04 Feb, 2013 [facility] [place] [facility] [address] [id number] [place] [address]- 2423 Feb, [facility] [place] [facility] [address] [id number] [place] [address]- 2545 Jan, [facility] [place] [facility] [address] [id number] [place] [address] 2547 Jan, [facility] [place] [facility] [address] [id number] [place] [address] 2548 Jan, [facility] [place] [facility] [address] [id number] [place] [address]- 254 Jan, [facility] [place] [facility] [address] [id number] [place] [address]- 9676 Jan, [facility] [address] [id number] [place] [address]- 0796 Jan, [facility] [place] [facility] [address] [id number] [place] [address]- 8986 Dec, [facility] [place] [facility] [address] [id number] [place] [address]- 7310 Dec, [facility] [place] [facility] [address] [id number] [place] [address]- 7375 Dec, [facility] [place] [facility] [address] [id number] [place] [address]- 9529 Dec, [facility] [place] [facility] [address] [id number] [place] [address]- 0138 Dec, [facility] [place] [facility] [address] [id number] [place] [address]- 7151 Dec, [facility] [place] [facility] [address] [id number] [place] [address]- 6675 Dec, [facility] [place] [facility] [address] [id number] [place] [address]- 2855 Dec, [facility] [place] [facility] [address] [id number] [place] [address]- 2459 Dec, [facility] [place] [facility] [address] [id number] [place] [address]- 3724 Dec, [facility] [place] [facility] [address] [id number] [place] [address]- 9350 Dec, [facility] [place] [facility] [address] [id number] [place] [address]- 6302 October, [facility] [place] [facility] [address] [id number] [place] [address]- 9041 October, [facility] [place] [facility] [address] [id number] [place] [address]- 3229 October, [facility] [place] [facility] [address] [id number], [place] [address]- 6764 October, [facility] [id number], [place] [address]- 0214 Sep, [facility] [id number], [place] [address]- 9255 Sep, [facility] [id number], [place] [address]- 7943 Sep, [facility] [id number], [place] [address]- 9800 Sep, [facility] [id number] [place] [address] 34890- 2121 Sep, [facility] [id number] [place] [address] 87694- 5523 Sep, [facility] [id number] [place] [address] 87505- 5360 Sep, [facility] [id number], [place] [address]- 4351 Sep, [facility] [id number] [place] [address] 60532- 9670 Sep, [facility] [id number], [place] [address]- 9300 Sep, [facility] [id number], [place] [address]- 9486 Sep, IMMUNIZATIONS No Known Immunizations SOCIAL HISTORY Never Assessed REASON FOR VISIT Controlled Med Refill 05/16 PLAN OF CARE VITAL SIGNS MEDICATIONS Medication Instructions Dosage Frequency Start Date End Date Duration Status Fentanyl 75 MCG/HR Transdermal once every 3 days. 1 patch to skin May Active Percocet 7.5-325 MG Orally 4 times a day 1 tablet 6h May, 28 days Active RESULTS No Results PROCEDURES [...] problems 09/2015 Hospitalization History Acute dyspnea, muscle cramps--[facility] 03/04/16 Hospitalization History RLE Cellulitis, Hypokalemia, anemia-[facility] 09/29/15 Hospitalization History Lower edema 09/2016 Hospitalization History Received stitches ER 10/2016 Hospitalization History hallucinations/ dimished mental capasity 03/19-03/21/18
--- OUTSIDE RECORDS SUMMARY | 2018-07-12 08:01 | XMS REPORT ---
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 Name Role Phone JAN HERNANDEZ Unavailable PROBLEMS Type Condition ICD9-CM Code HKL09-DS Code Onset Dates Condition Status SNOMED Code Problem Prediabetes R73.09 Active 3878232 Problem Hypokalemia E87.6 Active 35557432 Problem Arthritis M19.90 Active 9250342 Problem Neuropathy G62.9 Active 833509013 Problem Obesity hypoventilation syndrome E66.2 Active 374205936 Problem 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 Active 134200019 Problem Body mass index (BMI) of 45.0-49.9 in adult Z68.42 Active 035034220 Problem 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 [id number], [place] [address] May, [facility] [id number], [place] [address] Apr, [facility] [address] [id number], [place] [address] 27[address] Apr, Cor pulmonale I27.81 [facility] [address] [address]- 8347 Apr, Venous insufficiency I87.2 [facility] [address] 10367- 1560 Apr, [facility] [address] 22718- 1638 Apr, Neuropathy G62.9 and Prediabetes R73.09 [facility] [address] 7[address]58- 3478 Apr, [facility] [address] 26297- 5995 Apr, [facility] [address] 20359- 1293 Apr, [facility] [address] [address] Apr, Swelling of right lower extremity M79.89 [facility] [address] 39475- 8830 Apr, [facility] [address] 32739- 4263 Mar, Bronchitis J40 [facility] [address] 58045- 9023 Mar, [facility] [address] 98764- 7113 Mar, 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 ; Encounter for immunization Z23 and Arthritis M19.90 [facility] [address] 9[address]38- 0828 Mar, Arthritis M19.90 and Back pain M54.9 [facility] [address] 89349- 3495 Mar, [facility] [address] 22435- 0600 Mar, [facility] [address] [facility] [id number], [place] [address] 9[address] Feb, Arthritis M19.90 [facility] [address] [facility] [id number] [place] [address] 98739- 4426 Jan, Arthritis M19.90 [facility] [id number] [place] [address] 52906- 6240 Jan, Back pain M54.9 and Arthritis M19.90 [facility] [address] [facility] [id number] [place] [address] 13030- 8444 Jan, [facility] [id number] [place] [address] 64351- 9468 Jan, Back pain M54.9 [facility] [id number] [place] [address] 24725- 9691 Jan, Arthritis M19.90 [facility] [id number] [place] [address] 68784- 6594 Jan, Back pain M54.9 [facility] [id number] [place] [address] 98516- 6762 Jan, [facility] [id number] [place] [address] 87478- 6794 Jan, Back pain M54.9 [facility] [id number] [place] [address] 78858- 7172 Dec, Ingrowing nail with infection L60.0 and Onychomycosis B35.1 [facility] [address] [facility] [id number] [place] [address] 90881- 2740 Dec, Arthritis M19.90 [facility] [id number] [place] [address] 98529- 0780 Dec, Ingrowing nail L60.0 [facility] [id number] [place] [address] 38183- 3626 Dec, Back pain M54.9 [facility] [id number], [place] [address] Dec, [facility] [id number] [place] [address] 42697- 4449 Dec, Back pain M54.9 [facility] [id number] [place] [address] 71575- 6301 Nov, Arthritis M19.90 [facility] [id number] [place] [address] 48316- 0335 Nov, [facility] [id number] [place] [address] 91618- 4993 Nov, Arthritis M19.90 ; Anemia D64.9 ; Restrictive lung disease J98.4 ; Weakness R53.1 and BMI 50.0-59.9, adult Z68.43 [facility] [id number] [place] [address] 39186- 6617 Nov, Arthritis M19.90 [facility] [id number] [place] [address] 88826- 8686 Nov, Back pain M54.9 [facility] [id number] [place] [address] 72239- 9256 October, Back pain M54.9 [facility] [id number] [place] [address] 46881- 6318 October, Back pain M54.9 [facility] [id number] [place] [address] 95523- 3212 Sep, Back pain M54.9 [facility] [id number] [place] [address] 08125- 0913 Sep, Back pain M54.9 [facility] [id number] [place] [address] 19477 -8908 Sep, [facility] [id number] [place] [address] 36584 -8301 Sep, [facility] [id number], [place] [address] Sep, Swelling of right lower extremity M79.89 and Cellulitis of right lower extremity L03.115 [facility] [id number], [place] [address] 5[address] 27 Aug, 2017 Back pain M54.9 [facility] [id number] [place] [address] 00962- 7116 15 Aug, 2017 Back pain M54.9 [facility] [id number] [place] [address] 16689- 7040 Aug, [facility] [id number] [place] [address] 46840- 5857 Aug, Cellulitis of right lower extremity L03.115 ; Ventral hernia without obstruction or gangrene K43.9 and BMI 50.0-59.9, adult Z68.43 [facility] [id number], [place] [address]- 2705 Jul, Back pain M54.9 [place] [id number] [place] [address] 35689- 6155 Jul, 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 ; Arthritis M19.90 ; Back pain M54.9 ; Prediabetes R73.09 ; Hypothyroidism E03.9 ; 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 and Anemia D64.9 [place] [id number], [place] [address]- [address] Jul, 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 ; Back pain M54.9 ; Arthritis M19.90 ; Prediabetes R73.09 ; Hypothyroidism E03.9 ; 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 ; Anemia D64.9 and BMI 45.0-49.9, adult Z68.42 [place] [id number] [place] [address] 06126- 4246 15 Jul, 2017 Back pain M54.9 [facility] [id number] [place] [address] 96265- 4850 05 Jul, 2017 Back pain M54.9 [facility] [id number] [place] [address] 64254- 5554 Jun, Back pain M54.9 [facility] [id number] [place] [address] 33066- 4607 Jun, Back pain M54.9 [facility] [id number] [place] [address] 60886 -0032 May, Skin cancer of face C44.300 and BMI 45.0-49.9, adult Z68.42 [facility] [id number] [place] [address] 80775- 4626 May, [facility] [id number] [place] [address] 28251- 2603 May, Back pain M54.9 [facility] [id number] [place] [address] 39717- 3373 May, Back pain M54.9 [facility] [id number] [place] [address] 12445 2548 May, Back pain M54.9 [facility] [id number] [place] [address] 17348- 9746 Apr, Back pain M54.9 [facility] [id number] [place] [address] 44734 2545 Apr, Back pain M54.9 [facility] [id number] [place] [address] 75759- 8196 Mar, Back pain M54.9 [facility] [id number] [place] [address] 22351- 5416 Mar, Anemia D64.9 ; Encounter for immunization Z23 ; Arthritis M19.90 and Right inguinal hernia K40.90 [facility] [id number] [place] [address] 55775- 6705 Mar, Back pain M54.9 [facility] [id number] [place] [address] 07615- 4749 Feb, Back pain M54.9 [facility] [address] 92414 2546 Feb, Back pain M54.9 [facility] [address] 42955- 7646 Jan, Back pain M54.9 [facility] [address] 64637- 0990 Jan, Back pain M54.9 [facility] [address] 02637- 9032 Jan, [facility] [id number] [place] [address] 09068- 0231 Jan, Back pain M54.9 [facility] [address] 74351- 6125 Dec, Back pain M54.9 [facility] [id number] [place] [address] 19364- 3866 Dec, Back pain M54.9 [facility] [id number] [place] [address] 68062 2544 Dec, [facility] [id number] [place] [address] 33752- 6028 Nov, Hypokalemia E87.6 [facility] [id number] [place] [address] 94466- 3591 Nov, Back pain M54.9 [facility] [id number] [place] [address] 56081- 2548 Nov, [place] [facility] [id number] [place] [address] 77808- 6800 27 Nov, 2016 Arthritis M19.90 [place] [facility] [address] 90534- 5236 Nov, Back pain M54.9 [place] [facility] [id number] [place] [address] 85511- 7576 Nov, Generalized edema R60.1 [facility] [address] 30439- 7070 Nov, Back pain M54.9 [place] [address] 12488- 0987 07 Nov, 2016 Pain in right knee M25.561 [place] [id number] [place] [address] 64797- 2367 05 Nov, 2016 Encounter for removal of sutures Z48.02 and Pain in right knee M25.561 [facility] [id number] [place] [address] 60660 -8874 Nov, Abrasion of right foot, subsequent encounter S90.811D [facility] [id number] [place] [address] 12461 -6992 October, Toe abrasion, right, initial encounter S90.414A [place] [facility] [id number] [place] [address] 94986- 3507 October, [place] [id number] [place] [address] 44108- 9495 October, Back pain M54.9 [place] [id number] [place] [address] 34244- 1774 October, Venous insufficiency I87.2 [place] [facility] [id number] [place] [address] 07907- 6718 October, Pain in right knee M25.561 [facility] [id number] [place] [address] 90733- 3923 Sep, Back pain M54.9 [place] [facility] [id number] [place] [address] 13416- 9273 Sep, Venous insufficiency I87.2 [facility] [address] [id number] Sep, [facility] [id number] [place] [address] 47033 -9838 Sep, Leg edema, right R60.0 and Cellulitis of right lower extremity L03.115 [place] [address] 46609- 8645 14 Sep, 2016 Pedal edema R60.0 [place] [facility] [address] 06842- 4433 04 Sep, 2016 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 ; Pain in right knee M25.561 and Arthritis M19.90 [place] [facility] [id number] [place] [address] 39685- 6579 Aug, Back pain M54.9 [place] [facility] [address] 79451- 9127 Aug, Back pain M54.9 [place] [id number] [place] [address] 47994- 2259 Aug, [place] [id number] [place] [address] 32797- 4721 Aug, Type 2 diabetes mellitus without complication E11.9 ; Restrictive lung disease J98.4 ; Arthritis M19.90 ; Back pain M54.9 ; Body mass index (BMI) of 45.0-49.9 in adult Z68.42 and Morbid (severe) obesity due to excess calories E66.01 [facility] [id number] [place] [address] 74903- 4807 Aug, Back pain M54.9 [place] [address] 78873- 3762 Aug, Back pain M54.9 [facility] [address] [facility] [id number], [place] [address] 2546 Jul, [facility] [address] [facility] [id number] [place] [address] 06526- 4026 Jul, Back pain M54.9 [facility] [id number] [place] [address] 29788- 4216 Jul, Back pain M54.9 [facility] [address] [facility] [id number] [place] [address] 89317- 9549 Jun, Back pain M54.9 [facility] [address] [facility] [id number] [place] [address] 33173- 5389 Jun, Back pain M54.9 [facility] [id number] [place] [address] 59610- 2766 May, Back pain M54.9 [facility] [address] [facility] [id number] [place] [address] 90470 2546 16 May, 2016 Back pain M54.9 [facility] [id number] [place] [address] 81558 2546 May, Back pain M54.9 [facility] [id number] [place] [address] 43486 2546 May, Back pain M54.9 [facility] [id number] [place] [address] 47982 2546 May, [facility] [address] [facility] [id number] [place] [address] 83258 254 05 May, 2016 Back pain M54.9 and Pain in right knee M25.561 [facility] [address] [facility] [id number], [place] [address]- 1366 Apr, [facility] [id number] [place] [address] 54125- 7670 11 Nov, 2016 Type 2 diabetes mellitus without complication E11.9 ; Pain in right knee M25.561 and Pain in left knee M25.562 [facility] [id number] [place] [address] 12103- 5549 Mar, [facility] [id number] [place] [address] 75927- 5072 Mar, [facility] [address] 01384- 5539 Mar, [facility] [id number] [place] [address] 77691- 7904 18 Mar, 2016 Restrictive lung disease J98.4 ; Anemia D64.9 and Cor pulmonale I27.81 [facility] [id number] [place] [address] 99242- 2622 Mar, [facility] [address] 00038- 8748 14 Mar, 2016 [facility] [id number] [place] [address] 18814- 2320 Mar, [facility] [id number] [place] [address] 46696- 1800 30 Feb, 2016 [facility] [id number] [place] [address] 38878- 1747 29 Feb, 2016 [facility] [id number] [place] [address] 31004- 2631 28 Feb, 2016 [facility] [id number] [place] [address] 18430- 5803 27 Feb, 2016 Restrictive lung disease J98.4 [facility] [id number] [place] [address] 70189- 1229 23 Feb, 2016 [facility] [id number] [place] [address] 03074 -7600 22 Feb, 2016 [facility] [id number] [place] [address] 39574- 2016 Feb, [facility] [id number], [place] [address]- 2344 Jan, [facility] [id number] [place] [address] 70665- 5974 Jan, [facility] [id number] [place] [address] 33474- 7176 Jan, [facility] [id number] [place] [address] 25564- 3406 Jan, [facility] [id number] [place] [address] 44134- 3883 Jan, Restrictive lung disease J98.4 ; Anemia D64.9 and Cor pulmonale I27.81 [facility] [id number] [place] [address] 84751- 8519 Dec, [facility] [id number] [place] [address] 07902- 1204 Dec, [facility] [id number] [place] [address] 19744- 6262 Nov, Arthritis M19.90 and Hypokalemia E87.6 [facility] [id number] [place] [address] 02264- 4285 Nov, Back pain M54.9 [facility] [id number] [place] [address] 87406- 2107 October, Back pain M54.9 [facility] [id number] [place] [address] 55873- 3282 October, Back pain M54.9 [facility] [id number] [place] [address] 53325- 7790 Sep, Scabies exposure Z20.89 [facility] [id number], [place] [address]- 0340 Sep, Restrictive lung disease J98.4 [facility] [id number] [place] [address]- 8257 Sep, Back pain M54.9 [facility] [id number] [place] [address] 29976- 4946 Sep, Restrictive lung disease J98.4 [facility] [id number] [place] [address] 41115 2546 Aug, [facility] [address] [address] 2546 Aug, [facility] [id number] [place] [address] 57192- 1766 Aug, [facility] [id number] [place] [address] 38245- 0226 Aug, [facility] [id number] [place] [address] 96032- 8698 Aug, Back pain M54.9 [facility] [id number] [place] [address] 61432 2546 Jul, Anemia D64.9 and Prediabetes R73.09 [facility] [id number] [place] [address] 20999- 1926 Jul, Back pain M54.9 [facility] [id number] [place] [address] 65270 2546 Jul, Back pain M54.9 [facility] [id number] [place] [address] 57425 2546 Jul, [facility] [id number] [place] [address] 71270 2546 Jul, Bronchitis J40 and Anemia D64.9 [facility] [id number] [place] [address] 59937 2546 Jun, [facility] [id number] [place] [address] 04496 2546 Jun, [facility] [id number] [place] [address] 79568- 8174 Jun, Bronchitis J40 and Anemia D64.9 [facility] [address] 7[address]82- 1613 Jun, [facility] [id number] [place] [address] 57210- 5101 Jun, Back pain M54.9 [facility] [address] 18195- 6425 Jun, Anemia D64.9 [place] [address] 314[address]- 2607 Jun, Restrictive lung disease J98.4 ; Anemia D64.9 ; Hypothyroidism E03.9 ; Cor pulmonale I27.81 and Back pain M54.9 [place] [address] 81671- 0341 May, [facility] [id number] [place] [address] 33658- 5045 Apr, Anemia D64.9 ; Encounter for immunization Z23 and Restrictive lung disease J98.4 [facility] [facility] [id number] [place] [address] 61503- 7426 Apr, [facility] [id number] [place] [address] 00551- 4217 Mar, [facility] [facility] [id number] [place] [address] 58569- 5395 Mar, Iron deficiency anemia D50.9 [facility] [id number] [place] [address] 23847- 9527 Mar, [place] [facility] [id number] [place] [address] 42576- 4999 Mar, [facility] [id number] [place] [address] 51935- 7085 Mar, Anemia D64.9 [place] [id number] [address] Mar, [facility] [id number] [place] [address] 26987- 2636 Mar, Anemia D64.9 [facility] [id number] [place] [address] 37809- 2546 Mar, Restrictive lung disease J98.4 and Anemia D64.9 [facility] [id number] [place] [address] 76346- 2966 Mar, [facility] [id number] [place] [address] 76440- 8376 Mar, Anemia D64.9 [facility] [id number] [place] [address] 51733- 1119 Mar, Anemia D64.9 [facility] [id number] [place] [address] 80645- 2879 Mar, [facility] [id number] [place] [address] 43369- 4669 Mar, Diabetes mellitus E11.9 ; Bronchitis J40 and Anemia D64.9 [facility] [id number], [place] [address] 30 Feb, 2015 [facility] [id number] [place] [address] 06466- 1373 25 Feb, 2015 [facility] [id number] [place] [address] 56287- 2548 15 Feb, 2015 [facility] [id number] [place] [address] 24232- 4655 Feb, [facility] [id number] [place] [address] 86537- 4301 Jan, [facility] [id number], [place] [address] 5242 Jan, [facility] [address] [id number] [address] 6429 Dec, Venous insufficiency 459.81 [facility] [id number] [place] [address] 35921- 6860 Dec, [facility] [id number] [place] [address] 78887- 3545 Dec, [facility] [id number] [place] [address] 85013- 4244 Dec, Coronary atherosclerosis of unspecified type of vessel, chicken ranch or graft 414.00 ; Unspecified anemia 285.9 and Generalized osteoarthrosis , unspecified site 715.00 [facility] [id number] [place] [address] 88119- 7485 Nov, [facility] [id number] [place] [address] 17995- 5899 Nov, [facility] [id number] [place] [address] 56766- 3582 Nov, [facility] [id number] [place] [address] 19827- 1439 October, [facility] [id number] [place] [address] 19031- 3553 October, Acute bronchitis 466.0 and Shortness of breath 786.05 [facility] [id number] [place] [address] 70426- 5250 Sep, [facility] [id number] [place] [address] 20065- 5469 Sep, [facility] [id number], [place] [address]- 8566 Aug, [facility] [id number] [place] [address] 067600- 2053 Aug, [facility] [id number], [place] [address]- 6115 Jul, [facility] [id number] [address]- 2540 Jul, [facility] [address] [id number] [place] [address]- 4367 Jul, [facility] [place] [facility] [address] [id number] [place] [address]- 9066 Jul, [facility] [place] [facility] [address] [id number] [place] [address]- 5434 Jun, [facility] [place] [facility] [address] [id number] [place] [address]- 1803 Jun, [facility] [place] [facility] [address] [id number] [place] [address]- 9572 Jun, [facility] [place] [facility] [address] [id number] [place] [address]- 3524 Jun, [facility] [place] [facility] [address] [id number] [place] [address]- 1149 Jun, [facility] [address] [id number] [place] [address]- 9457 Jun, [facility] [place] [facility] [address] [id number] [place] [address]- 0431 May, [facility] [place] [facility] [address] [id number] [place] [address]- 0622 May, [facility] [place] [facility] [address] [id number] [place] [address]- 0167 May, [facility] [place] [facility] [address] [id number] [place] [address]- 3524 May, [facility] [place] [facility] [address] [id number] [place] [address]- 4425 Apr, [facility] [place] [facility] [address] [id number] [place] [address]- 2206 Apr, [facility] [place] [facility] [address] [id number] [place] [address]- 5946 Apr, [facility] [place] [facility] [address] [id number] [place] [address]- 4271 Apr, [facility] [place] [facility] [address] [id number] [place] [address]- 5086 Apr, [facility] [place] [facility] [address] [id number] [place] [address]- 4910 Apr, [facility] [place] [facility] [address] [id number] [place] [address]- 3680 Mar, [facility] [place] [facility] [address] [id number] [place] [address]- 9775 Mar, [facility] [place] [facility] [address] [id number] [place] [address]- 3477 Mar, [facility] [place] [facility] [address] [id number] [place] [address]- 9463 Mar, [facility] [place] [facility] [address] [id number] [place] [address]- 4214 Mar, [facility] [place] [facility] [address] [id number] [place] [address]- 9784 Mar, [facility] [place] [facility] [address] [id number] [place] [address]- 1571 Mar, [facility] [place] [facility] [address] [id number] [place] [address]- 0118 Mar, [facility] [place] [facility] [address] [id number], [place] [address]- 4977 Feb, [facility] [place] [facility] [address] [id number] [place] [address]- 2656 Feb, [facility] [place] [facility] [address] [id number] [place] [address]- 7974 Jan, [facility] [place] [facility] [address] [id number] [place] [address]- 1133 Jan, [facility] [place] [facility] [address] [id number] [place] [address]- 1636 Jan, [facility] [place] [facility] [address] [id number] [place] [address]- 3159 Jan, [facility] [place] [facility] [address] [id number] [place] [address]- 5721 Jan, [facility] [place] [facility] [address] [id number] [place] [address]- 5272 Jan, [facility] [place] [facility] [address] [id number] [place] [address]- 3560 Dec, [facility] [place] [facility] [address] [id number] [place] [address]- 6247 Dec, [facility] [place] [facility] [address] [id number] [place] [address]- 2966 Dec, [facility] [place] [facility] [address] [id number] [place] [address]- 3453 Dec, [facility] [place] [facility] [address] [id number] [place] [address]- 7339 Nov, [facility] [place] [facility] [address] [id number] [place] [address]- 7215 Nov, [facility] [place] [facility] [address] [id number] [place] [address]- 7043 Nov, [facility] [place] [facility] [address] [id number] [place] [address]- 7042 Nov, [facility] [place] [facility] [address] [id number] [place] [address]- 3368 Nov, [facility] [place] [facility] [address] [id number] [place] [address]- 5128 Nov, [facility] [place] [facility] [address] [id number] [place] [address]- 7303 Nov, [facility] [place] [facility] [address] [id number] [place] [address]- 3216 Nov, [facility] [place] [facility] [address] [id number] [place] [address]- 1304 Nov, [facility] [place] [facility] [address] [id number] [place] [address]- 3051 Nov, [facility] [place] [facility] [address] [id number] [place] [address]- 5653 Nov, [facility] [place] [facility] [address] [id number] [place] [address]- 2201 Nov, [facility] [place] [facility] [address] [id number] [place] [address]- 7257 October, [facility] [place] [facility] [address] [id number] [place] [address]- 9843 October, [facility] [place] [facility] [address] [id number] [place] [address]- 0071 October, [facility] [place] [facility] [address] [id number] [place] [address]- 0110 October, [facility] [place] [facility] [address] [id number] [place] [address]- 1683 October, [facility] [place] [facility] [address] [id number] [place] [address]- 2890 October, [facility] [place] [facility] [address] [id number] [place] [address]- 0445 October, [facility] [place] [facility] [address] [id number] [place] [address]- 8509 October, [facility] [place] [facility] [address] [id number] [place] 0246 October, [facility] [place] [facility] [address] [id number] [place] [address]- 3599 Sep, [facility] [place] [facility] [address] [id number] [place] 8052 Sep, [facility] [place] [facility] [address] [id number] [place] [address]- 2716 Sep, [facility] [place] [facility] [address] [id number] [place] [address]- 8695 Sep, [facility] [place] [facility] [address] [id number] [place] [address]- 6364 Sep, [facility] [place] [facility] [address] [id number] [place] [address]- 4039 Sep, [facility] [place] [facility] [address] [id number] [place] [address]- 0983 Aug, [facility] [place] [facility] [address] [id number] [place] [address]- 0393 Aug, [facility] [place] [facility] [address] [id number] [place] [address]- 1932 Aug, [facility] [place] [facility] [address] [id number] [place] [address]- 0497 Aug, [facility] [place] [facility] [address] [id number] [place] [address]- 9148 Aug, [facility] [place] [facility] [address] [id number] [place] [address]- 0148 Aug, [facility] [place] [facility] [address] [id number] [place] [address]- 2742 Aug, [facility] [place] [facility] [address] [id number] [place] [address]- 9588 Aug, [facility] [place] [facility] [address] [id number] [place] [address]- 0246 Aug, [facility] [place] [facility] [address] [id number] [place] [address]- 1756 Aug, [facility] [place] [facility] [address] [id number] [place] [address]- 7651 Jul, [facility] [place] [facility] [address] [id number] [place] [address]- 8637 Jul, [facility] [place] [facility] [address] [id number] [place] [address]- 6021 Jun, [facility] [address] [id number] [place] [address]- 2610 Jun, [facility] [address] [id number] [place] [address]- 5144 Jun, [facility] [address] [id number] [place] [address]- 2068 Jun, [facility] [address] [id number] [place] [address]- 6445 Jun, [facility] [address] [id number] [place] [address]- 7558 Jun, [facility] [address] [id number] [place] [address]- 8136 Jun, [facility] [address] [id number] [place] [address]- 7275 Jun, [facility] [address] [id number] [place] [address]- 6699 May, [facility] [address] [id number] [place] [address]- 2948 May, [facility] [address] [id number] [place] [address]- 9352 May, [facility] [address] [id number] [place] [address]- 4330 May, [facility] [address] [id number] [place] [address]- 2541 May, [facility] [address] [id number] [place] [address]- 5226 May, [facility] [address] [id number] [place] [address]- 0964 May, [facility] [address] [id number] [place] [address]- 3322 May, [facility] [place] [facility] [address] [id number] [place] [address]- 2962 May, [facility] [place] [facility] [address] [id number] [place] [address]- 0918 Apr, [facility] [place] [facility] [address] [id number] [place] [address]- 4447 Apr, [facility] [place] [facility] [address] [id number] [place] [address]- 6902 Apr, [facility] [place] [facility] [address] [id number] [place] [address]- 8804 Apr, [facility] [place] [facility] [address] [id number] [place] [address]- 1750 Mar, [facility] [place] [facility] [address] [id number] [place] [address]- 1341 Mar, [facility] [place] [facility] [address] [id number], [place] [address]- 0121 Mar, [facility] [place] [facility] [address] [id number], [place] [address]- 8599 Mar, [facility] [place] [facility] [address] [id number], [place] [address]- 7580 Mar, [facility] [place] [facility] [address] [id number], [place] [address]- 2544 Mar, [facility] [place] [facility] [address] [id number], [place] [address]- 1741 Mar, [facility] [place] [facility] [address] [id number], [place] [address]- 6284 Mar, [facility] [place] [facility] [address] [id number], [place] [address]- 4314 Mar, [facility] [place] [facility] [address] [id number], [place] [address]- 3057 Mar, [facility] [place] [facility] [address] [id number], [place] [address]- 2265 18 Mar, 2012 [facility] [place] [facility] [address] [id number] [place] [address]- 7149 18 Mar, 2012 [facility] [place] [facility] [address] [id number], [place] [address]- 0709 18 Mar, 2012 [facility] [place] [facility] [address] [id number] [place] [address]- 5698 18 Mar, 2012 [facility] [place] [facility] [address] [id number], [place] [address]- 0148 18 Mar, 2012 [facility] [place] [facility] [address] [id number] [place] [address]- 2333 18 Mar, 2012 [facility] [place] [facility] [address] [id number], [place] [address]- 8443 17 Mar, 2012 [facility] [place] [facility] [address] [id number], [place] [address]- 0452 17 Mar, 2012 [facility] [place] [facility] [address] [id number], [place] [address]- 4084 15 Mar, 2012 [facility] [place] [facility] [address] [id number], [place] [address]- 8942 15 Mar, 2012 [facility] [place] [facility] [address] [id number], [place] [address]- 7253 14 Mar, 2012 [facility] [place] [facility] [address] [id number], [place] [address]- 0800 14 Mar, 2012 [facility] [place] [facility] [address] [id number], [place] [address]- 1954 14 Mar, 2012 [facility] [place] [facility] [address] [id number], [place] [address]- 0212 14 Mar, 2012 [facility] [place] [facility] [address] [id number], [place] [address]- 0040 12 Mar, 2012 [facility] [place] [facility] [address] [id number], [place] [address]- 2107 11 Mar, 2012 [facility] [place] [facility] [address] [id number] [place] [address]- 6821 11 Mar, 2013 [facility] [place] [facility] [address] [id number] [place] [address]- 6078 Mar, [facility] [place] [facility] [address] [id number] [place] [address]- 3176 Mar, 2012 [facility] [place] [facility] [address] [id number] [place] [address]- 2671 Mar, 2012 [facility] [place] [facility] [address] [id number] [place] [address]- 4113 Mar, [facility] [place] [facility] [address] [id number] [place] [address]- 8042 Mar, [facility] [place] [facility] [address] [id number] [place] [address]- 5736 Mar, [facility] [place] [facility] [address] [id number] [place] [address]- 0388 27 Feb, 2013 [facility] [place] [facility] [address] [id number] [place] [address]- 2781 11 Feb, 2013 [facility] [place] [facility] [address] [id number] [place] [address]- 0645 04 Feb, 2013 [facility] [place] [facility] [address] [id number] [place] [address]- 9962 Feb, [facility] [place] [facility] [address] [id number] [place] [address]- 0228 29 Jan, 2013 [facility] [place] [facility] [address] [id number] [place] [address] 2541 Jan, [facility] [place] [facility] [address] [id number] [place] [address]- 1357 Jan, [facility] [place] [facility] [address] [id number] [place] [address]- 2549 Jan, [facility] [place] [facility] [address] [id number] [place] [address]- 0073 Jan, [facility] [address] [id number] [place] [address]- 9479 Jan, [facility] [place] [facility] [address] [id number] [place] [address]- 7357 Dec, [facility] [place] [facility] [address] [id number] [place] [address]- 0385 Dec, [facility] [place] [facility] [address] [id number] [place] [address]- 7669 Dec, [facility] [place] [facility] [address] [id number] [place] [address]- 6981 Dec, [facility] [place] [facility] [address] [id number] [place] [address]- 9625 Dec, [facility] [place] [facility] [address] [id number] [place] [address]- 2788 Dec, [facility] [place] [facility] [address] [id number] [place] [address]- 6003 Dec, [facility] [place] [facility] [address] [id number] [place] [address]- 9761 Dec, [facility] [place] [facility] [address] [id number] [place] [address]- 1548 Dec, [facility] [place] [facility] [address] [id number] [place] [address]- 1545 Dec, [facility] [place] [facility] [address] [id number] [place] [address]- 6091 Dec, [facility] [place] [facility] [address] [id number] [place] [address]- 3967 October, [facility] [place] [facility] [address] [id number] [place] [address]- 7817 October, [facility] [place] [facility] [address] [id number] [place] [address]- 2771 October, [facility] [place] [facility] [address] [id number], [place] [address]- 9813 October, [facility] [id number], [place] [address]- 5134 Sep, [facility] [id number], [place] [address]- 2098 Sep, [facility] [id number], [place] [address]- 9360 Sep, [facility] [id number], [place] [address]- 6064 Sep, [facility] [id number] [place] [address] 572[address]- 5434 Sep, [facility] [id number], [place] [address]- 6101 Sep, [facility] [id number] [place] [address] 519[address]- 5547 Sep, [facility] [id number], [place] [address]- 2611 Sep, [facility] [id number], [place] [address]- 6499 Sep, [facility] [id number], [place] [address]- 5976 Sep, [facility] [id number], [place] [address]- 8968 Sep, IMMUNIZATIONS No Known Immunizations SOCIAL HISTORY Never Assessed 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 VISIT 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/ leg still swollen Evelio WILLIAM PLAN OF CARE Activity Details Follow Up Will call after lab Reason: VITAL SIGNS Height 62 in 2018-04-28 Weight cannot weigh lbs 2018-04-28 Temperature 97.1 degrees Fahrenheit 2018-04-28 Heart Rate 55 bpm 2018-04-28 Respiratory Rate 20 2018-04-28 Oximetry w/ oxygen:85 % 2018-04-28 Blood pressure systolic 114 mmHg 2018-04-28 Blood pressure diastolic 82 mmHg 2018-04-28 MEDICATIONS Medication Instructions Dosage Frequency Start Date End Date Duration Status Aspirin 81 mg take 1 tablet (81 mg) by oral route once daily Sep, Active Hospital Bed as directed Mar, Active Glucophage 500 MG 1 TABLET BY ORAL ROUTE 1 TIME PER DAY WITH MEALS TWICE DAILY. Active Latanoprost 0.005 % Ophthalmic Once a day 1 drop into affected eye in the evening 24h Active Toprol XL 25 mg 0.5 Tablet by Oral route 1 time per day 17 Nov, 2013 Active Potassium Chloride Angie ER 20 meq Orally Twice a day 1 tablet 12h Active Synthroid 200 MCG TAKE 1 TABLET (175 MCG) BY ORAL ROUTE ONCE DAILY 30 Active Omeprazole 40 MG Orally Once a day 1 capsule 24h Active Lasix 80 MG Orally Once a day 1 tablet 24h 07 Dec, 2014 Active Wheelchair - to use for mobility daily Bariatric 24h Aug, Active Wheelchair - use heavy duty wheel chair for mobility 24h Nov, Active ProAir HFA 108 (90 Base) MCG/ACT Inhalation every 6 hrs 2 puffs as needed 6h Nov, Active Fentanyl 75 MCG/HR Transdermal once every 3 days. 1 patch to skin Apr Active Lomotil 2.5-0.025 MG Orally Four times a day 1 tablet as needed 6h Dec, Active Lipitor 80 MG Orally Once a day 1 tablet 24h Active Imdur 30 MG Orally Once a day 1 tablet 24h Active Flexeril 10 mg take 1 tablet (10 mg) by oral route 3 times per day PRN pain Jan, Active Glucophage 500 1 TABLET BY ORAL ROUTE 1 TIME PER DAY WITH MEALS TWICE DAILY. Active Percocet 7.5-325 MG Orally 4 times a day 1 tablet 6h Apr, 28 days Active RESULTS No Results PROCEDURES Procedure Date Ordered Result Body Site LAB NOT BILLED BY [facility] Apr 28, 2018 INSTRUCTIONS MEDICATIONS ADMINISTERED No Known Medications [...] problems 09/2015 Hospitalization History Acute dyspnea, muscle cramps--[facility] 03/04/16 Hospitalization History RLE Cellulitis, Hypokalemia, anemia-[facility] 09/29/15 Hospitalization History Lower edema 09/2016 Hospitalization History Received stitches ER 10/2016 Hospitalization History hallucinations/ dimished mental capasity 03/19-03/21/18
--- OUTSIDE RECORDS SUMMARY | 2018-07-12 08:01 | XMS REPORT ---
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 Name Role Phone JAN HERNANDEZ Unavailable PROBLEMS Type Condition ICD9-CM Code AUT86-MK Code Onset Dates Condition Status SNOMED Code Problem Prediabetes R73.09 Active 2641397 Problem Hypokalemia E87.6 Active 89882324 Problem Arthritis M19.90 Active 8020446 Problem Neuropathy G62.9 Active 219132090 Problem Obesity hypoventilation syndrome E66.2 Active 602868428 Problem 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 Active 397548277 Problem Body mass index (BMI) of 45.0-49.9 in adult Z68.42 Active 736248596 Problem Coronary artery disease involving [place] coronary artery of [place] heart without angina pectoris I25.10 Active 5394757024954 Problem Venous insufficiency I87.2 Active 57954928 Problem Anemia D64.9 Active 881332196 Problem Cor pulmonale I27.81 Active 83166807 Problem Back pain M54.9 Active 290265093 Problem Restrictive lung disease J98.4 Active 25324978 Problem Hypothyroidism E03.9 Active 04776627 ALLERGIES No Information ENCOUNTERS Encounter Location Date Diagnosis [facility] [address] [address] May, [facility] [address] [address] 24[address] Apr, [facility] [address] [address] 12[address] Apr, Cor pulmonale I27.81 [facility] [address] [address] 35[address] Apr, Venous insufficiency I87.2 [facility] [id number] [place] [address] 91732- 5878 Apr, [facility] [address] [address]- 6160 Apr, Neuropathy G62.9 and Prediabetes R73.09 [facility] [address] 38493- 1337 Apr, [facility] [address] 56775- 6154 Apr, [facility] [address] 48[address]- 7046 Apr, [facility] [address] 96251 -[address]231 Apr, Swelling of right lower extremity M79.89 [facility] [address] 42091- 6070 Apr, [facility] [address] [address]- 1629 Mar, Bronchitis J40 [facility] [address] 62727- 1758 Mar, [facility] [id number] [place] [address] 62347- 1131 Mar, 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 ; Encounter for immunization Z23 and Arthritis M19.90 [facility] [id number] [place] [address] 84408- 2719 Mar, Arthritis M19.90 and Back pain M54.9 [facility] [address] 99835- 1523 Mar, [facility] [address] 42615- 5244 Mar, [facility] [address] 13039- 1143 Feb, Arthritis M19.90 [facility] [address] [address] 6[address] Jan, Arthritis M19.90 [facility] [id number] [place] [address] 65661- 6941 Jan, Back pain M54.9 and Arthritis M19.90 [facility] [id number] [place] [address] 35236- 0165 Jan, [facility] [address] [facility] [id number] [place] [address] 85617- 0851 Jan, Back pain M54.9 [facility] [id number] [place] [address] 88903- 1645 Jan, Arthritis M19.90 [facility] [id number] [place] [address] 52708- 6776 Jan, Back pain M54.9 [facility] [id number] [place] [address] 97494- 3316 Jan, [facility] [id number] [place] [address] 59301- 9989 Jan, Back pain M54.9 [facility] [id number] [place] [address] 76734- 3432 Dec, Ingrowing nail with infection L60.0 and Onychomycosis B35.1 [facility] [id number] [place] [address] 62927- 9064 Dec, Arthritis M19.90 [facility] [id number] [place] [address] 08816- 2375 Dec, Ingrowing nail L60.0 [facility] [id number] [place] [address] 82973- 7347 Dec, Back pain M54.9 [facility] [id number] [place] [address] 85436 -2591 Dec, [facility] [id number] [place] [address] 17996- 4420 Dec, Back pain M54.9 [facility] [id number] [place] [address] 34490- 1953 Nov, Arthritis M19.90 [facility] [id number] [place] [address] 05776- 5879 Nov, [facility] [address] 90042- 9796 Nov, Arthritis M19.90 ; Anemia D64.9 ; Restrictive lung disease J98.4 ; Weakness R53.1 and BMI 50.0-59.9, adult Z68.43 [facility] [id number] [place] [address] 94805- 3153 Nov, Arthritis M19.90 [facility] [id number] [place] [address] 86254- 1254 Nov, Back pain M54.9 [facility] [id number] [place] [address] 52547- 4318 October, Back pain M54.9 [facility] [id number] [place] [address] 65371- 0687 October, Back pain M54.9 [facility] [id number] [place] [address] 07123- 1523 Sep, Back pain M54.9 [facility] [id number] [place] [address] 65044- 5770 Sep, Back pain M54.9 [facility] [id number] [place] [address] 37279 -5211 Sep, [facility] [id number] [place] [address] 99332 -9781 Sep, [facility] [id number] [place] [address] 42613 -1140 04 Sep, 2017 Swelling of right lower extremity M79.89 and Cellulitis of right lower extremity L03.115 [facility] [id number] [place] [address] 32199- 1056 Aug, Back pain M54.9 [facility] [id number] [place] [address] 51067- 2271 15 Aug, 2017 Back pain M54.9 [facility] [id number] [place] [address] 49422- 0533 Aug, [facility] [id number] [place] [address] 24673- 5919 Aug, Cellulitis of right lower extremity L03.115 ; Ventral hernia without obstruction or gangrene K43.9 and BMI 50.0-59.9, adult Z68.43 [facility] [id number] [place] [address] 53999- 6305 Jul, Back pain M54.9 [facility] [id number] [place] [address] 01942- 4918 28 Jul, 2017 [facility] (current) 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 Z79.891 ; Arthritis M19.90 ; Back pain M54.9 ; Prediabetes R73.09 ; Hypothyroidism E03.9 ; Coronary artery disease involving [place] coronary artery of [place] heart without angina pectoris I25.10 and Anemia D64.9 [facility] [address] [place] [address] 44817- 7921 Jul, 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 ; Back pain M54.9 ; Arthritis M19.90 ; Prediabetes R73.09 ; Hypothyroidism E03.9 ; Coronary artery disease involving [place] coronary artery of [place] heart without angina pectoris I25.10 ; Anemia D64.9 and BMI 45.0-49.9, adult Z68.42 [facility] [address] [address]- 2837 15 Jul, 2017 Back pain M54.9 [facility] [id number] [place] [address] 42405- 8120 Jul, Back pain M54.9 [facility] [id number] [place] [address] 16750- 6254 Jun, Back pain M54.9 [facility] [id number] [place] [address] 48153- 5755 Jun, Back pain M54.9 [facility] [id number] [place] [address] 65076 -1958 May, Skin cancer of face C44.300 and BMI 45.0-49.9, adult Z68.42 [facility] [id number] [place] [address] 03964- 2064 May, [facility] [address] 84281- 7738 May, Back pain M54.9 [facility] [id number] [place] [address] 61196- 6971 May, Back pain M54.9 [facility] [address] 80295- 2189 May, Back pain M54.9 [facility] [id number] [place] [address] 99705- 2754 Apr, Back pain M54.9 [facility] [id number] [place] [address] 37604- 4188 Apr, Back pain M54.9 [facility] [id number] [place] [address] 17135- 1060 Mar, Back pain M54.9 [facility] [id number] [place] [address] 07662- 6651 Mar, Anemia D64.9 ; Encounter for immunization Z23 ; Arthritis M19.90 and Right inguinal hernia K40.90 [facility] [address] [place] [address]- 4576 Mar, Back pain M54.9 [facility] [address] [facility] [id number] [place] [address] 47336 2546 Feb, Back pain M54.9 [facility] [address] [facility] [id number] [place] [address] 56879 2546 Feb, Back pain M54.9 [facility] [address] [facility] [id number] [place] [address] 12628 2546 Jan, Back pain M54.9 [facility] [address] [facility] [id number] [place] [address] 25253 2546 Jan, Back pain M54.9 [facility] [address] [facility] [id number] [place] [address] 96470 2546 Jan, [facility] [address] [facility] [id number] [place] [address] 66940 2544 Jan, Back pain M54.9 [facility] [address] [facility] [id number] [place] [address] 74629 2549 Dec, Back pain M54.9 [facility] [address] [facility] [id number] [place] [address] 60339 2546 Dec, Back pain M54.9 [facility] [address] [facility] [id number] [place] [address] 91140 2546 Dec, [facility] [address] [facility] [id number] [place] [address] 85903 2540 Nov, Hypokalemia E87.6 [facility] [address] [facility] [id number] [place] [address] 44826 2546 Nov, Back pain M54.9 [facility] [address] [facility] [id number] [address] 2546 Nov, [facility] [address] [facility] [id number] [place] [address] 49064 2546 27 Alexx, 2017 Arthritis M19.90 [facility] [id number] [place] [address] 20754- 3413 Nov, Back pain M54.9 [facility] [address] 61712- 9893 Nov, Generalized edema R60.1 [facility] [id number] [place] [address] 50299- 8646 Nov, Back pain M54.9 [facility] [address] 08750- 9253 07 Nov, 2016 Pain in right knee M25.561 [facility] [address] 74206- 3503 05 Nov, 2016 Encounter for removal of sutures Z48.02 and Pain in right knee M25.561 [facility] [id number] [place] [address] 20325 -0708 Nov, Abrasion of right foot, subsequent encounter S90.811D [facility] [id number] [place] [address] 52610 -4041 October, Toe abrasion, right, initial encounter S90.414A [facility] [id number] [place] [address] 32380- 4327 October, [facility] [id number] [place] [address] 90449- 9727 October, Back pain M54.9 [facility] [id number] [place] [address] 68581- 1143 October, Venous insufficiency I87.2 [facility] [address] 19221- 6036 October, Pain in right knee M25.561 [facility] [id number] [place] [address] 08772- 6133 Sep, Back pain M54.9 [facility] [address] 42901- 5976 Sep, Venous insufficiency I87.2 [facility] [id number] [place] [address] [id number] Sep, [facility] [id number] [place] [address] 05206 -0367 16 Sep, 2016 Leg edema, right R60.0 and Cellulitis of right lower extremity L03.115 [facility] [id number] [place] [address] 21735- 0396 14 Sep, 2016 Pedal edema R60.0 [facility] [id number] [place] [address] 38087- 2439 04 Sep, 2016 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 ; Pain in right knee M25.561 and Arthritis M19.90 [facility] [id number] [place] [address] 68506- 9728 Aug, Back pain M54.9 [facility] [id number] [place] [address] 57962- 1034 Aug, Back pain M54.9 [facility] [address] 86537- 1505 Aug, [facility] [id number] [place] [address] 19669- 6044 Aug, Type 2 diabetes mellitus without complication E11.9 ; Restrictive lung disease J98.4 ; Arthritis M19.90 ; Back pain M54.9 ; Body mass index (BMI) of 45.0-49.9 in adult Z68.42 and Morbid (severe) obesity due to excess calories E66.01 [facility] [id number] [place] [address] 85654- 2914 Aug, Back pain M54.9 [facility] [id number] [place] [address] 65142- 5760 Aug, Back pain M54.9 [facility] [address] [place] [address]- 4494 07 Jul, 2016 [facility] [id number] [place] [address] 08717- 9006 Jul, Back pain M54.9 [facility] [id number] [place] [address] 47579 2546 Jul, Back pain M54.9 [facility] [id number] [place] [address] 74516- 9726 Jun, Back pain M54.9 [facility] [id number] [place] [address] 61827 2546 Jun, Back pain M54.9 [facility] [id number] [place] [address] 38349- 5106 May, Back pain M54.9 [facility] [id number] [place] [address] 80759- 6356 16 May, 2016 Back pain M54.9 [facility] [id number] [place] [address] 55523 2546 May, Back pain M54.9 [facility] [id number] [place] [address] 95182 2546 May, Back pain M54.9 [facility] [id number] [place] [address] 56621 2546 May, [facility] [id number] [place] [address] 42831 2542 05 May, 2016 Back pain M54.9 and Pain in right knee M25.561 [facility] [id number] [place] [address] 22901 2546 Apr, [facility] [id number] [place] [address] 69697- 2546 Apr, Type 2 diabetes mellitus without complication E11.9 ; Pain in right knee M25.561 and Pain in left knee M25.562 [facility] [address] [address]- 5369 Mar, [facility] [id number] [place] [address] 16619- 3870 Mar, [facility] [id number] [place] [address] 02052- 7372 Mar, [facility] [id number] [place] [address] 94803- 2356 18 Mar, 2016 Restrictive lung disease J98.4 ; Anemia D64.9 and Cor pulmonale I27.81 [facility] [id number] [place] [address] 69735- 2547 17 Mar, 2016 [facility] [id number] [place] [address] 67090- 8129 14 Mar, 2016 [facility] [id number] [place] [address] 60479- 7055 Mar, [facility] [id number] [place] [address] 23104- 4909 30 Feb, 2016 [facility] [id number] [place] [address] 22360- 6806 29 Feb, 2016 [facility] [address] [address]- 7391 28 Feb, 2016 [facility] [id number] [place] [address] 86147- 4348 27 Feb, 2015 Restrictive lung disease J98.4 [facility] [address] [address]- 7340 23 Feb, 2016 [facility] [id number] [place] [address] 88773 -3542 22 Feb, 2016 [facility] [address] [address]- 0058 16 Feb, 2016 [facility] [id number] [place] [address] 27986- 5838 Jan, [facility] [address] [address]- 6344 Jan, [facility] [id number] [place] [address] 16534- 8780 Jan, [facility] [id number] [place] [address] 11482- 5523 Jan, [facility] [id number] [place] [address] 98603- 0217 Jan, Restrictive lung disease J98.4 ; Anemia D64.9 and Cor pulmonale I27.81 [facility] [id number] [place] [address] 25867- 1878 Dec, [facility] [id number] [place] [address] 07839- 2164 Dec, [facility] [id number] [place] [address] 74206- 3851 Nov, Arthritis M19.90 and Hypokalemia E87.6 [facility] [id number] [place] [address] 76912- 2690 Nov, Back pain M54.9 [facility] [id number] [place] [address] 74891- 4324 October, Back pain M54.9 [facility] [id number] [place] [address] 94605- 9860 October, Back pain M54.9 [facility] [id number] [place] [address] 05113- 9772 Sep, Scabies exposure Z20.89 [facility] [id number] [place] [address] 05970- 7117 Sep, Restrictive lung disease J98.4 [facility] [address] [place] [address] 41650- 0079 Sep, Back pain M54.9 [facility] [address] [address]- 0761 Sep, Restrictive lung disease J98.4 [facility] [id number] [place] [address] 08426- 5631 Aug, [facility] [id number] [place] [address] 41114- 1638 Aug, [facility] [id number] [place] [address] 32597- 0341 Aug, [facility] [id number] [place] [address] 89390- 3325 Aug, [facility] [id number] [place] [address] 13998- 0505 Aug, Back pain M54.9 [facility] [id number] [place] [address] 78304- 0201 Jul, Anemia D64.9 and Prediabetes R73.09 [facility] [id number] [place] [address] 84456- 8020 Jul, Back pain M54.9 [facility] [id number] [place] [address] 84620- 0940 Jul, Back pain M54.9 [facility] [id number] [place] [address] 85801- 5878 Jul, [facility] [id number] [place] [address] [phone] 05 Jul, 2015 Bronchitis J40 and Anemia D64.9 [facility] [id number] [place] [address] [phone]- 6165 Jun, [facility] [id number] [place] [address] 35859- [phone] Jun, [facility] [id number] [place] [address] 13632- 1040 Jun, Bronchitis J40 and Anemia D64.9 [facility] [id number] [place] [address] [phone]- 3266 Jun, [facility] [address] 96729- 1093 Jun, Back pain M54.9 [facility] [address] 33629- 4550 Jun, Anemia D64.9 [facility] [address] 47893- 5179 Jun, Restrictive lung disease J98.4 ; Anemia D64.9 ; Hypothyroidism E03.9 ; Cor pulmonale I27.81 and Back pain M54.9 [facility] [address] 34236- 1826 May, [facility] [address] 07574- 2789 Apr, Anemia D64.9 ; Encounter for immunization Z23 and Restrictive lung disease J98.4 [facility] [id number] [place] [address] 42385- 3765 Apr, [facility] [address] 65148- 2019 Mar, [facility] [id number] [place] [address] 36712- 6812 Mar, Iron deficiency anemia D50.9 [facility] [id number] [place] [address] 22412- 1420 Mar, [facility] [id number] [place] [address] [phone]- 3964 Mar, [facility] [id number] [place] [address] 74429- 9192 Mar, Anemia D64.9 [facility] [id number] [place] [address] 79974- 3864 Mar, [id number] [place] [address] 06087- 6296 Mar, Anemia D64.9 [facility] [address] [address]46 2546 Mar, Restrictive lung disease J98.4 and Anemia D64.9 [facility] [address] [address] 2546 Mar, [facility] [address] 41372- 9266 Mar, Anemia D64.9 [facility] [address] 92422- 0366 Mar, Anemia D64.9 [facility] [id number] [place] [address] 74735- 0155 Mar, [facility] [facility] [address] [address] Mar, Diabetes mellitus E11.9 ; Bronchitis J40 and Anemia D64.9 [facility] [id number] [place] [address] 25404- 3146 30 Feb, 2015 [facility] [id number] [place] [address] 56615 2546 Feb, [facility] [id number] [place] [address] 61359- 8655 Feb, [facility] [id number] [place] [address] 91708 2543 Feb, [facility] [id number] [place] [address] 32260 2546 Jan, [facility] [id number] [place] [address] 95632 2540 Jan, [facility] [id number] [place] [address] 32515- 2545 Dec, Venous insufficiency 459.81 [facility] [id number] [address] 8394 Dec, [facility] [id number] [place] [address] 62982- 8108 Dec, [facility] [id number] [address] 9359 Dec, Coronary atherosclerosis of unspecified type of vessel, [place] or graft 414.00 ; Unspecified anemia 285.9 and Generalized osteoarthrosis , unspecified site 715.00 [facility] [id number] [address] 4330 Nov, [facility] [id number] [place] [address] 44833- 4097 Nov, [facility] [id number] [address]- 5446 Nov, [facility] [id number] [place] [address] 80532- 1462 October, [facility] [id number] [place] [address] 30567- 9347 October, Acute bronchitis 466.0 and Shortness of breath 786.05 [facility] [id number] [address] 7358 Sep, [facility] [id number] [address] 7883 Sep, [facility] [id number] [address] 0708 Aug, [facility] [id number] [address] 6207 Aug, [facility] [id number] [address]- 3923 Jul, [facility] [address] [address]- 7936 Jul, [facility] [id number] [address]- 7076 Jul, [facility] [place] [facility] [address] [id number] [place] [address]- 2087 Jul, [facility] [place] [facility] [address] [id number] [place] [address]- 8646 Jun, [facility] [place] [facility] [address] [id number] [place] [address]- 0098 Jun, [facility] [place] [facility] [address] [id number] [place] [address]- 5460 Jun, [facility] [place] [facility] [address] [id number] [place] [address]- 6813 Jun, [facility] [place] [facility] [address] [id number] [place] [address]- 2136 Jun, [facility] [place] [facility] [address] [id number] [place] [address]- 1233 Jun, [facility] [place] [facility] [address] [id number] [place] [address]- 1562 May, [facility] [place] [facility] [address] [id number] [place] [address]- 8977 May, [facility] [place] [facility] [address] [id number] [place] [address]- 8715 May, [facility] [place] [facility] [address] [id number] [place] [address]- 4988 May, [facility] [place] [facility] [address] [id number] [place] [address]- 9130 Apr, [facility] [place] [facility] [address] [id number] [place] [address]- 7870 Apr, [facility] [place] [facility] [address] [id number] [place] [address]- 5596 Apr, [facility] [place] [facility] [address] [id number] [place] [address]- 4549 Apr, [facility] [place] [facility] [address] [id number] [place] [address]- 7548 Apr, [facility] [place] [facility] [address] [id number] [place] [address]- 5367 Apr, [facility] [place] [facility] [address] [id number] [place] 4211 Mar, [facility] [place] [facility] [address] [id number] [place] [address]- 6408 Mar, [facility] [place] [facility] [address] [id number] [place] [address]- 4792 Mar, [facility] [place] [facility] [address] [id number] [place] [address]- 6745 Mar, [facility] [place] [facility] [address] [id number] [place] [address]- 8965 Mar, [facility] [place] [facility] [address] [id number] [place] [address]- 5369 Mar, [facility] [place] [facility] [address] [id number] [place] [address]- 0574 Mar, [facility] [place] [facility] [address] [id number] [place] [address]- 4579 Mar, [facility] [place] [facility] [address] [id number] [address]- 2642 Feb, [facility] [place] [facility] [address] [id number] [address]- 4631 Feb, [facility] [place] [facility] [address] [id number] [place] [address]- 8709 Jan, [facility] [place] [facility] [address] [id number] [place] [address]- 2560 Jan, [facility] [place] [facility] [address] [id number] [place] [address]- 4912 Jan, [facility] [place] [facility] [address] [id number] [place] [address]- 2075 Jan, [facility] [place] [facility] [address] [id number] [place] [address]- 8443 Jan, [facility] [place] [facility] [address] [id number] [place] [address]- 1049 Jan, [facility] [place] [facility] [address] [id number] [place] [address]- 0318 Dec, [facility] [place] [facility] [address] [id number] [place] [address]- 2552 Dec, [facility] [place] [facility] [address] [id number] [place] [address]- 1005 Dec, [facility] [place] [facility] [address] [id number] [place] [address]- 4895 Dec, [facility] [place] [facility] [address] [id number] [place] [address]- 4733 Nov, [facility] [place] [facility] [address] [id number] [place] [address]- 0710 Nov, [facility] [place] [facility] [address] [id number] [place] [address]- 2444 Nov, [facility] [place] [facility] [address] [id number] [place] [address]- 5669 Nov, [facility] [place] [facility] [address] [id number] [place] [address]- 8410 Nov, [facility] [place] [facility] [address] [id number] [place] [address]- 7878 Nov, [facility] [place] [facility] [address] [id number] [place] [address]- 8850 Nov, [facility] [place] [facility] [address] [id number] [place] [address]- 1455 Nov, [facility] [place] [facility] [address] [id number] [place] [address]- 6900 Nov, [facility] [place] [facility] [address] [id number] [place] [address]- 6530 Nov, [facility] [place] [facility] [address] [id number] [place] [address]- 9656 Nov, [facility] [place] [facility] [address] [id number] [place] [address]- 8478 Nov, [facility] [place] [facility] [address] [id number] [place] [address]- 9066 October, [facility] [place] [facility] [address] [id number] [place] [address]- 0849 October, [facility] [place] [facility] [address] [id number] [place] [address]- 9431 October, [facility] [place] [facility] [address] [id number] [place] [address]- 9002 October, [facility] [place] [facility] [address] [id number] [place] [address]- 1268 October, [facility] [place] [facility] [address] [id number] [place] [address]- 2427 October, [facility] [place] [facility] [address] [id number] [place] [address]- 4154 October, [facility] [place] [facility] [address] [id number] [place] [address]- 8594 October, [facility] [place] [facility] [address] [id number] [place] [address]- 4373 October, [facility] [place] [facility] [address] [id number] [place] [address]- 0499 Sep, [facility] [place] [facility] [address] [id number] [place] [address]- 2343 Sep, [facility] [place] [facility] [address] [id number] [place] [address]- 3392 Sep, [facility] [place] [facility] [address] [id number] [place] [address]- 5096 Sep, [facility] [place] [facility] [address] [id number] [place] [address]- 0814 Sep, [facility] [place] [facility] [address] [id number] [place] [address]- 9552 Sep, [facility] [place] [facility] [address] [id number] [place] [address]- 6066 Aug, [facility] [place] [facility] [address] [id number] [place] [address]- 3842 Aug, [facility] [place] [facility] [address] [id number] [place] [address]- 3643 Aug, [facility] [place] [facility] [address] [id number] [place] [address]- 7849 Aug, [facility] [place] [facility] [address] [id number] [place] [address]- 3031 Aug, [facility] [place] [facility] [address] [id number] [place] [address]- 6195 Aug, [facility] [place] [facility] [address] [id number] [place] [address]- 8049 Aug, [facility] [place] [facility] [address] [id number] [place] [address]- 5979 Aug, [facility] [place] [facility] [address] [id number] [place] [address]- 9445 Aug, [facility] [place] [facility] [address] [id number] [place] [address]- 2841 Aug, [facility] [place] [facility] [address] [id number] [place] [address]- 7391 Jul, [facility] [place] [facility] [address] [id number] [place] [address]- 1288 Jul, [facility] [place] [facility] [address] [id number] [place] [address]- 3287 Jun, [facility] [place] [facility] [address] [id number] [place] [address]- 0072 Jun, [facility] [address] [id number] [place] [address]- 7797 Jun, [facility] [address] [id number] [place] [address]- 2870 Jun, [facility] [address] [id number] [place] [address]- 4590 Jun, [facility] [place] [address] [id number] [place] [address]- 2978 Jun, [facility] [address] [id number] [place] [address]- 0229 Jun, [facility] [address] [id number] [place] [address]- 5132 Jun, [facility] [address] [id number] [place] [address]- 5936 May, [facility] [address] [id number] [place] [address]- 6904 May, [facility] [address] [id number] [place] [address]- 2221 May, [facility] [address] [id number] [place] [address]- 8631 May, [facility] [address] [id number] [place] [address]- 3180 May, [facility] [address] [id number] [place] [address]- 2542 May, [facility] [place] [facility] [address] [id number] [place] 1102 May, [facility] [address] [id number] [place] [address]- 9955 May, [facility] [address] [id number] [place] 0152 May, [facility] [place] [facility] [address] [id number] [place] [address]- 1729 Apr, [facility] [place] [facility] [address] [id number] [place] [address]- 5466 Apr, [facility] [place] [facility] [address] [id number] [place] [address]- 7231 Apr, [facility] [place] [facility] [address] [id number] [place] [address]- 5388 Apr, [facility] [place] [facility] [address] [id number] [place] [address]- 4098 Mar, [facility] [place] [facility] [address] [id number] [place] [address]- 7807 Mar, [facility] [place] [facility] [address] [id number] [place] [address]- 3192 Mar, [facility] [place] [facility] [address] [id number] [address]- 4727 Mar, [facility] [place] [facility] [address] [id number] [place] [address]- 7156 Mar, [facility] [place] [facility] [address] [id number] [address]- 2395 Mar, [facility] [place] [facility] [address] [id number] [address]- 3476 Mar, [facility] [place] [facility] [address] [id number] [address]- 8217 Mar, [facility] [place] [facility] [address] [id number] [place] [address]- 8743 Mar, [facility] [place] [facility] [address] [id number] [address]- 7466 Mar, [facility] [place] [facility] [address] [id number] 6751 Mar, [facility] [place] [facility] [address] [id number] [place] [address]- 2207 18 Mar, 2012 [facility] [place] [facility] [address] [id number] [place] [address]- 4744 18 Mar, 2012 [facility] [place] [facility] [address] [id number] [address]- 6132 18 Mar, 2012 [facility] [place] [facility] [address] [id number] [place] [address]- 2769 18 Mar, 2012 [facility] [place] [facility] [address] [id number] [place] [address]- 4598 18 Mar, 2012 [facility] [place] [facility] [address] [id number] [place] [address]- 6633 17 Mar, 2012 [facility] [place] [facility] [address] [id number] [place] [address]- 1637 17 Mar, 2012 [facility] [place] [facility] [address] [id number] [address]- 6199 15 Mar, 2012 [facility] [place] [facility] [address] [id number], [place] [address]- 7976 15 Mar, 2012 [facility] [place] [facility] [address] [id number] [place] [address]- 0416 14 Mar, 2012 [facility] [place] [facility] [address] [id number] [address]- 2347 14 Mar, 2012 [facility] [place] [facility] [address] [id number] [address]- 3466 14 Mar, 2012 [facility] [place] [facility] [address] [id number] [address]- 1322 14 Mar, 2012 [facility] [place] [facility] [address] [id number] [address]- 2052 12 Mar, 2012 [facility] [place] [facility] [address] [id number] [address]- 9563 11 Mar, 2012 [facility] [place] [facility] [address] [id number] [address]- 4853 11 Mar, 2012 [facility] [place] [facility] [address] [id number] [place] [address]- 0578 Mar, [facility] [place] [facility] [address] [id number] [place] [address]- 5756 Mar, [facility] [place] [facility] [address] [id number] [place] [address]- 1469 Mar, [facility] [place] [facility] [address] [id number] [place] [address]- 1025 Mar, [facility] [place] [facility] [address] [id number] [place] [address]- 4587 Mar, [facility] [place] [facility] [address] [id number] [place] [address]- 9264 Mar, [facility] [place] [facility] [address] [id number] [place] [address]- 3958 27 Feb, 2013 [facility] [place] [facility] [address] [id number] [place] [address]- 7242 Feb, [facility] [place] [facility] [address] [id number] [place] [address]- 7933 Feb, [facility] [place] [facility] [address] [id number] [place] [address]- 7968 Feb, [facility] [place] [facility] [address] [id number] [place] [address]- 7743 Jan, [facility] [place] [facility] [address] [id number] [place] [address]- 2540 Jan, [facility] [place] [facility] [address] [id number] [place] [address] 2540 Jan, [facility] [place] [facility] [address] [id number] [place] [address] 254 Jan, [facility] [place] [facility] [address] [id number] [place] [address]- 2547 16 Jan, 2013 [facility] [place] [facility] [address] [id number] [place] [address]- 5007 Jan, [facility] [address] [id number] [place] [address]- 5100 Dec, [facility] [place] [facility] [address] [id number] [place] [address]- 8080 Dec, [facility] [place] [facility] [address] [id number] [place] [address]- 7396 Dec, [facility] [place] [facility] [address] [id number] [place] [address]- 3513 Dec, [facility] [place] [facility] [address] [id number] [place] [address]- 8350 Dec, [facility] [place] [facility] [address] [id number] [place] [address]- 8364 Dec, [facility] [place] [facility] [address] [id number] [place] [address]- 1469 Dec, [facility] [place] [facility] [address] [id number] [place] [address]- 1767 Dec, [facility] [place] [facility] [address] [id number] [place] [address]- 1407 Dec, [facility] [place] [facility] [address] [id number] [place] [address]- 5359 Dec, [facility] [place] [facility] [address] [id number] [place] [address]- 3912 Dec, [facility] [place] [facility] [address] [id number] [place] [address]- 0650 October, [facility] [place] [facility] [address] [id number] [place] [address]- 5773 October, [facility] [place] [facility] [address] [id number] [place] [address]- 8539 October, [facility] [place] [facility] [address] [id number] [place] [address]- 6651 October, [facility] [place] [facility] [address] [id number] [address]- 4123 30 Sep, 2012 [facility] [address] [address]- 5488 30 Sep, 2012 [facility] [id number] [address]- 6356 29 Sep, 2012 [facility] [id number] [address]- 0669 Sep, [facility] [address]65[address] [address]- 1037 Sep, [facility] [address] [address]- 7393 Sep, [facility] [id number] [address]- 1130 Sep, [facility] [address] [id number] [address]- 5987 Sep, [facility] [id number] [address]- 8668 Sep, [facility] [id number] [address]- 0795 Sep, [facility] [id number] [address]- 2955 Sep, IMMUNIZATIONS No Known Immunizations SOCIAL HISTORY Never Assessed REASON FOR VISIT medication refill PLAN OF CARE VITAL SIGNS MEDICATIONS Medication Instructions Dosage Frequency Start Date End Date Duration Status Wheelchair - to use for mobility daily Bariatric 24h Aug, Active Imdur 30 MG Orally Once a day 1 tablet 24h Active Omeprazole 40 MG Orally Once a day 1 capsule 24h Active Glucophage 500 MG 1 TABLET BY ORAL ROUTE 1 TIME PER DAY WITH MEALS TWICE DAILY. Active Lipitor 80 MG Orally Once a day 1 tablet 24h Active Lomotil 2.5-0.025 MG Orally Four times a day 1 tablet as needed 6h Dec, Active Aspirin 81 mg take 1 tablet (81 mg) by oral route once daily Sep, Active Zaroxolyn 5 MG Orally Once a day, 30 minutes before you take Lasix 1 tablet Apr, 30 day(s) Active Lasix 80 MG Orally Once a day 1 tablet 24h Dec, Active Percocet 7.5-325 MG Orally 4 times a day 1 tablet 6h Apr, 28 days Active Flexeril 10 mg take 1 tablet (10 mg) by oral route 3 times per day PRN pain Jan, Active Wheelchair - use heavy duty wheel chair for mobility 24h Nov, Active Hospital Bed as directed Mar, Active Glucophage 500 1 TABLET BY ORAL ROUTE 1 TIME PER DAY WITH MEALS TWICE DAILY. Active Potassium Chloride Angie ER 20 meq Orally Twice a day 1 tablet 12h Active ProAir HFA 108 (90 Base) MCG/ACT Inhalation every 6 hrs 2 puffs as needed 6h Nov, Active Fentanyl 75 MCG/HR Transdermal once every 3 days. 1 patch to skin Apr Active Toprol XL 25 mg 0.5 Tablet by Oral route 1 time per day Nov, Active Latanoprost 0.005 % Ophthalmic Once a day 1 drop into affected eye in the evening 24h Active Synthroid 200 MCG TAKE 1 TABLET (175 MCG) BY ORAL ROUTE ONCE DAILY 30 Active RESULTS No Results PROCEDURES No Known [...]
--- OUTSIDE RECORDS SUMMARY | 2018-07-12 08:02 | XMS REPORT ---
Author Author JAN HERNANDEZ [facility] [address] Address [address] [place] [address] Care Team Providers Care Field Operations Technician Name Role Phone JAN HERNANDEZ Unavailable PROBLEMS Type Condition ICD9-CM Code RRS04-KB Code Onset Dates Condition Status SNOMED Code Problem Prediabetes R73.09 Active 4339311 Problem Hypokalemia E87.6 Active 04151837 Problem Arthritis M19.90 Active 1234267 Problem Neuropathy G62.9 Active 350651169 Problem Obesity hypoventilation syndrome E66.2 Active 240231584 Problem 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 Active 958217801 Problem Body mass index (BMI) of 45.0-49.9 in adult Z68.42 Active 381136678 Problem Coronary artery disease involving [place] coronary artery of [place] heart without angina pectoris I25.10 Active 4129602638513 Problem Venous insufficiency I87.2 Active 16283516 Problem Anemia D64.9 Active 765539473 Problem Cor pulmonale I27.81 Active 68816641 Problem Back pain M54.9 Active 195818080 Problem Restrictive lung disease J98.4 Active 56194487 Problem Hypothyroidism E03.9 Active 01134565 ALLERGIES No Information ENCOUNTERS Encounter Location Date Diagnosis [facility] [id number] [address] May, [facility] [id number], [place] [address] Apr, Cor pulmonale I27.81 [facility] [address] [address] Apr, Venous insufficiency I87.2 [facility] [id number], [place] [address] 365[address] Apr, [facility] [id number] [place] [address] 38917- 5569 09 Apr, 2018 Neuropathy G62.9 and Prediabetes R73.09 [facility] [address] [address] Apr, [facility] [address] [address] 3[address] Apr, [facility] [address] 0[address] Apr, [facility] [address] [address] Apr, Swelling of right lower extremity M79.89 [facility] [address] [address] Apr, [facility] [address] [address]- 7377 Mar, Bronchitis J40 [facility] [address] [address]- 30[address] Mar, [facility] [address] 62451- 6958 Mar, 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 ; Encounter for immunization Z23 and Arthritis M19.90 [facility] [id number] [place] [address] 65352- 5885 Mar, Arthritis M19.90 and Back pain M54.9 [facility] [id number] [place] [address] 68338- 3947 Mar, [facility] [address] 43642- 5796 Mar, [facility] [id number] [place] [address] 63774- 1410 Feb, Arthritis M19.90 [facility] [address] [address]- 5788 Jan, Arthritis M19.90 [facility] [address] [place] [address] 71095- 4882 Jan, Back pain M54.9 and Arthritis M19.90 [facility] [id number] [place] [address] 78705- 7688 Jan, [facility] [id number] [place] [address] 75751- 5316 Jan, Back pain M54.9 [facility] [id number] [place] [address] 42693- 1379 Jan, Arthritis M19.90 [facility] [id number] [place] [address] 02050- 7551 Jan, Back pain M54.9 [facility] [id number] [place] [address] 62964- 4719 Jan, [facility] [id number] [place] [address] 18501- 2812 Jan, Back pain M54.9 [facility] [id number] [place] [address] 83957- 1772 Dec, Ingrowing nail with infection L60.0 and Onychomycosis B35.1 [facility] [address] [address] 84471- 0531 Dec, Arthritis M19.90 [facility] [id number] [place] [address] 07555- 5685 Dec, Ingrowing nail L60.0 [facility] [id number] [place] [address] 62111- 7621 Dec, Back pain M54.[address] [facility] [id number], [place] [address] Dec, [facility] [id number] [place] [address] 96565- 8339 Dec, Back pain M54.9 [facility] [id number] [place] [address] 96168- 9295 Nov, Arthritis M19.90 [facility] [address] 11417- 9722 Nov, [facility] [id number] [place] [address] 67359- 1453 Nov, Arthritis M19.90 ; Anemia D64.9 ; Restrictive lung disease J98.4 ; Weakness R53.1 and BMI 50.0-59.9, adult Z68.43 [place] [address] 88018- 9173 Nov, Arthritis M19.90 [facility] [id number] [place] [address] 10841- 0709 Nov, Back pain M54.9 [facility] [address] 04761- 8328 October, Back pain M54.9 [facility] [id number] [place] [address] 90073- 7619 October, Back pain M54.9 [facility] [id number] [place] [address] 08992- 6408 Sep, Back pain M54.9 [facility] [id number] [place] [address] 30443- 4366 Sep, Back pain M54.9 [facility] [id number] [place] [address] 18729 -2569 Sep, [facility] [id number] [place] [address] 45255 -3231 Sep, [facility] [id number] [place] [address] 91957 -6320 Sep, Swelling of right lower extremity M79.89 and Cellulitis of right lower extremity L03.115 [place] [address], [place] [address]- 4499 27 Aug, 2017 Back pain M54.9 [facility] [id number] [place] [address] 55585- 5326 15 Aug, 2017 Back pain M54.9 [place] [id number] [place] [address] 85341- 9812 13 Aug, 2017 [place] [id number] [place] [address] 52387- 5425 13 Aug, 2017 Cellulitis of right lower extremity L03.115 ; Ventral hernia without obstruction or gangrene K43.9 and BMI 50.0-59.9, adult Z68.43 [place] [id number] [place] [address] 72532- 1241 28 Jul, 2017 Back pain M54.9 [place] [id number] [place] [address] 28394- 6237 28 Jul, 2017 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 ; Arthritis M19.90 ; Back pain M54.9 ; Prediabetes R73.09 ; Hypothyroidism E03.9 ; Coronary artery disease involving [place] coronary artery of [place] heart without angina pectoris I25.10 and Anemia D64.9 [place] [address] [place] [address] 67388- 9871 27 Jul, 2017 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 ; Back pain M54.9 ; Arthritis M19.90 ; Prediabetes R73.09 ; Hypothyroidism E03.9 ; Coronary artery disease involving [place] coronary artery of [place] heart without angina pectoris I25.10 ; Anemia D64.9 and BMI 45.0-49.9, adult Z68.42 [place] [address] [place] [address] 48016- 3061 15 Jul, 2017 Back pain M54.9 [place] [id number] [address] 10741- 8366 05 Jul, 2017 Back pain M54.9 [facility] [address], [place] [address]- 3685 Jun, Back pain M54.9 [facility] [id number] [place] [address] 88013- 2386 Jun, Back pain M54.[address] [facility] [id number] [place] [address] 53319 -9350 May, Skin cancer of face C44.300 and BMI 45.0-49.9, adult Z68.42 [facility] [id number] [place] [address] 00657- 1626 May, [facility] [id number] [place] [address] 49418- 0828 May, Back pain M54.9 [facility] [id number] [place] [address] 24689- 3407 May, Back pain M54.9 [facility] [id number] [place] [address] 62397- 0217 May, Back pain M54.9 [facility] [id number] [place] [address] 13052- 0860 Apr, Back pain M54.9 [facility] [id number] [place] [address] 52197- 9684 Apr, Back pain M54.9 [facility] [id number] [place] [address] 29707- 1838 Mar, Back pain M54.9 [facility] [id number] [place] [address] 36018- 0320 Mar, Anemia D64.9 ; Encounter for immunization Z23 ; Arthritis M19.90 and Right inguinal hernia K40.90 [facility] [id number] [place] [address] 68906- 6182 Mar, Back pain M54.9 [facility] [id number], [place] [address] 2546 22 Feb, 2017 Back pain M54.9 [facility] [address] [facility] [id number] [place] [address] 48562 2546 13 Feb, 2017 Back pain M54.9 [facility] [address] [facility] [id number] [place] [address] 03537 2546 Jan, Back pain M54.9 [facility] [address] [facility] [id number] [address] [place] [address] 09134 2546 Jan, Back pain M54.9 [facility] [address] [facility] [id number] [place] [address] 83888 2546 Jan, [facility] [address] [facility] [id number] [address] [place] [address] 44295 2546 Jan, Back pain M54.9 [facility] [id number] [place] [address] 38825 2546 Dec, Back pain M54.9 [facility] [address] [facility] [id number] [address] [place] [address] 55488 2546 Dec, Back pain M54.9 [facility] [address] [facility] [id number] [place] [address] 10652 2546 Dec, [facility] [id number] [place] [address] 05150 2546 Nov, Hypokalemia E87.6 [facility] [address] [facility] [id number] [place] [address] 68783 2546 Nov, Back pain M54.9 [facility] [address] [facility] [id number] [address] [place] [address] 04696 2546 Nov, [facility] [address] [facility] [id number] [address] [place] [address] 44934 2546 Nov, Arthritis M19.90 [facility] [address] [facility] [id number] [address] [place] [address] 79070 2546 Nov, Back pain M54.9 [facility] [id number] [place] [address] 65299- 4082 Nov, Generalized edema R60.1 [facility] [id number] [place] [address] 72742- 1549 Nov, Back pain M54.9 [place] [id number] [place] [address] 48997- 6847 07 Nov, 2016 Pain in right knee M25.561 [facility] [id number] [place] [address] 13977- 4464 05 Nov, 2016 Encounter for removal of sutures Z48.02 and Pain in right knee M25.[address] [facility] [id number] [place] [address] 13124 -4829 Nov, Abrasion of right foot, subsequent encounter S90.811D [facility] [address] 14119 -1401 October, Toe abrasion, right, initial encounter S90.414A [place] [id number] [place] [address] 87265- 6872 October, [place] [id number] [place] [address] 06501- 6926 October, Back pain M54.9 [place] [id number] [place] [address] 93740- 2721 October, Venous insufficiency I87.2 [facility] [id number] [place] [address] 22531- 1817 October, Pain in right knee M25.561 [place] [id number] [place] [address] 20880- 4399 Sep, Back pain M54.9 [place] [id number] [place] [address] 59595- 5978 Sep, Venous insufficiency I87.2 [facility] [id number] [place] [id number] Sep, [facility] [id number] [place] [address] 33688 -2802 16 Sep, 2016 Leg edema, right R60.0 and Cellulitis of right lower extremity L03.115 [place] [id number] [place] [address] 23999- 0871 14 Sep, 2016 Pedal edema R60.0 [place] [address] 65338- 0498 04 Sep, 2016 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 ; Pain in right knee M25.561 and Arthritis M19.90 [place] [id number] [place] [address] 75511- 6579 Aug, Back pain M54.9 [place] [id number] [place] [address] 58135- 7106 Aug, Back pain M54.9 [place] [id number] [place] [address] 44659- 9901 Aug, [place] [id number] [place] [address] 48817- 1587 Aug, Type 2 diabetes mellitus without complication E11.9 ; Restrictive lung disease J98.4 ; Arthritis M19.90 ; Back pain M54.9 ; Body mass index (BMI) of 45.0-49.9 in adult Z68.42 and Morbid (severe) obesity due to excess calories E66.01 [place] [address] [address] 46127- 1212 Aug, Back pain M54.9 [place] [id number] [place] [address] 87561- 6836 Aug, Back pain M54.9 [place] [id number] [place] [address] 13341- 0025 Jul, [place] [address] [place] [address]- 0185 Jul, Back pain M54.9 [facility] [id number] [place] [address] 26436- 5296 Jul, Back pain M54.9 [facility] [id number] [place] [address] 96944- 2125 Jun, Back pain M54.9 [facility] [id number] [place] [address] 10842- 0487 Jun, Back pain M54.9 [facility] [id number] [place] [address] 04822- 1244 May, Back pain M54.9 [facility] [id number] [place] [address] 49210- 9328 16 May, 2016 Back pain M54.9 [facility] [id number] [place] [address] 64483- 5311 May, Back pain M54.9 [facility] [id number] [place] [address] 45329- 2067 May, Back pain M54.9 [facility] [id number] [place] [address] 67358- 3659 May, [facility] [id number] [place] [address] 45255- 7869 May, Back pain M54.9 and Pain in right knee M25.561 [facility] [id number] [place] [address] 60903- 1809 Apr, [facility] [id number] [place] [address] 90988- 6768 Apr, Type 2 diabetes mellitus without complication E11.9 ; Pain in right knee M25.561 and Pain in left knee M25.562 [facility] [id number] [place] [address] 86062- 9361 Mar, [facility] [address] [facility] [id number] [place] [address]- 2130 Mar, [facility] [id number] [place] [address] 42054- 9292 Mar, [facility] [address] [place] [address]- 3197 18 Mar, 2016 Restrictive lung disease J98.4 ; Anemia D64.9 and Cor pulmonale I27.81 [facility] [address] [facility] [id number] [place] [address]- 5241 17 Mar, 2016 [facility] [id number] [place] [address], [place] [address]- 1257 14 Mar, 2016 [facility] [id number] [place] [address] 62632- 7314 Mar, [facility] [id number] [place] [address] 55736- 1918 30 Feb, 2016 [facility] [address] [address]- 6790 29 Feb, 2016 [facility] [address] [place] [address] 04668- 5717 28 Feb, 2016 [facility] [address] [address]- 7313 27 Feb, 2016 Restrictive lung disease J98.4 [facility] [address] [address]- 8271 23 Feb, 2016 [facility] [address] [facility] [id number] [address] -6154 22 Feb, 2016 [facility] [address] [address]- 5109 16 Feb, 2016 [facility] [id number] [address]- 3496 24 Jan, 2016 [facility] [address], [place] [address]- 6162 Jan, [facility] [address], [place] [address]- 9938 Jan, [facility] [id number] [address] 25993- 0142 Jan, [facility] [id number] [place] [address] 90249- 2371 Jan, Restrictive lung disease J98.4 ; Anemia D64.9 and Cor pulmonale I27.81 [facility] [id number] [place] [address] 88831- 7873 Dec, [facility] [id number] [place] [address] 44896- 9294 Dec, [facility] [id number] [place] [address] 88090- 4312 Nov, Arthritis M19.90 and Hypokalemia E87.6 [facility] [id number] [place] [address] 51984- 9503 Nov, Back pain M54.9 [facility] [id number] [place] [address] [phone]- 4985 October, Back pain M54.9 [facility] [id number] [place] [address] 26500- 9416 October, Back pain M54.9 [facility] [id number] [place] [address] [phone]- 7503 Sep, Scabies exposure Z20.89 [facility] [id number] [place] [address] [phone]- 3329 Sep, Restrictive lung disease J98.4 [facility] [id number] [place] [address] 58858- 4729 Sep, Back pain M54.9 [facility] [id number] [place] [address] 74072- 6249 Sep, Restrictive lung disease J98.4 [facility] [id number] [address] 29 Aug, 2015 [facility] [id number] [place] [address] 99990- [phone] Aug, [facility] [id number] [place] [address] 51384- 2283 Aug, [facility] [id number] [place] [address] [phone]- [phone] Aug, [facility] [id number] [place] [address] 27533- 6148 Aug, Back pain M54.9 [facility] [id number] [place] [address] 24771- 1521 Jul, Anemia D64.9 and Prediabetes R73.09 [facility] [id number] [place] [address] 38052- 9418 Jul, Back pain M54.9 [facility] [id number] [place] [address] [phone]- [phone] 17 Jul, 2015 Back pain M54.9 [facility] [id number] [place] [address] 72902- 3474 Jul, [facility] [id number] [place] [address] [phone]- [phone] 05 Jul, 2015 Bronchitis J40 and Anemia D64.9 [facility] [id number] [address] 2548 Jun, [facility] [id number] [place] [address] [id number]- 9664 Jun, [facility] [id number] [place] [address] [phone]- 3936 Jun, Bronchitis J40 and Anemia D64.9 [facility] [id number] [place] [address] [phone] Jun, [facility] [id number] [place] [address] 09626- 3717 Jun, Back pain M54.9 [facility] [id number] [place] [address] [phone]- 4548 Jun, Anemia D64.9 [facility] [id number] [place] [address] 01002- 6729 Jun, Restrictive lung disease J98.4 ; Anemia D64.9 ; Hypothyroidism E03.9 ; Cor pulmonale I27.81 and Back pain M54.9 [facility] [id number] [place] [address] 43278- [phone] May, [facility] [id number] [place] [address] 71312- 9921 Apr, Anemia D64.9 ; Encounter for immunization Z23 and Restrictive lung disease J98.4 [facility] [id number] [place] [address] 49531- 8354 Apr, [facility] [id number] [place] [address] 50721- 2899 Mar, [facility] [id number] [place] [address] 86713- 2365 Mar, Iron deficiency anemia D50.9 [facility] [id number] [place] [address] 56128- 0158 Mar, [facility] [id number] [place] [address] 31909- 2579 Mar, [facility] [id number] [place] [address] 86801- 3066 Mar, Anemia D64.9 [facility] [id number] [place] [address] 71270- 5290 Mar, [facility] [id number] [place] [address] 05239- 9986 Mar, Anemia D64.9 [facility] [id number] [place] [address] 62208- 1252 Mar, Restrictive lung disease J98.4 and Anemia D64.9 [facility] [id number] [place] [address] 37297- 7087 Mar, [facility] [id number] [place] [address] 86976- 7246 Mar, Anemia D64.9 [facility] [id number] [place] [address] 75814 2541 Mar, Anemia D64.9 [facility] [address] 77837- 4582 Mar, [facility] [id number] [place] [address] 96075- 4238 Mar, Diabetes mellitus E11.9 ; Bronchitis J40 and Anemia D64.9 [facility] [id number] [place] [address] 98530- 1303 30 Feb, 2015 [facility] [id number] [place] [address] 13199- 3220 Feb, [facility] [id number] [place] [address] 15362- 6479 Feb, [facility] [id number] [place] [address] 71833- 7123 Feb, [facility] [id number] [place] [address] 40168- 0732 Jan, [facility] [id number] [place] [address] 42241- 8735 Jan, [facility] [id number] [place] [address] 38301- 9993 Dec, Venous insufficiency 459.81 [facility] [id number] [place] [address] 37762- 9328 Dec, [facility] [id number] [address]- 6489 Dec, [facility] [id number] [place] [address] 26944- 4248 Dec, Coronary atherosclerosis of unspecified type of vessel, [place] or graft 414.00 ; Unspecified anemia 285.9 and Generalized osteoarthrosis , unspecified site 715.00 [facility] [id number] [place] [address] 36255- 7651 Nov, [facility] [id number] [place] [address] 25683- 2973 Nov, [facility] [id number] [place] [address] 88450- 2371 Nov, [facility] [id number] [place] [address] 73343- 7772 October, [facility] [id number] [place] [address] 58821- 5356 October, Acute bronchitis 466.0 and Shortness of breath 786.05 [facility] [id number] [address] 43664- 5197 Sep, [facility] [id number] [address]- 7941 Sep, [facility] [id number] [address]- 3651 Aug, [facility] [id number] [address]- 1259 Aug, [facility] [id number] [address]- 6208 Jul, [facility] [address] [address]- 4976 Jul, [facility] [id number] [address]- 4709 Jul, [facility] [address] [facility] [id number] [place] [address]- 4086 Jul, [facility] [place] [facility] [address] [id number] [place] [address]- 0502 Jun, [facility] [place] [facility] [address] [id number] [place] [address]- 2876 Jun, [facility] [place] [facility] [address] [id number] [place] [address]- 6662 Jun, [facility] [place] [facility] [address] [id number] [place] [address]- 4097 Jun, [facility] [place] [facility] [address] [id number] [place] [address]- 1971 Jun, [facility] [place] [facility] [address] [id number] [place] [address]- 8398 Jun, [facility] [place] [facility] [address] [id number] [place] [address]- 1638 May, [facility] [place] [facility] [address] [id number] [place] [address]- 2660 May, [facility] [place] [facility] [address] [id number] [place] [address]- 4824 May, [facility] [place] [facility] [address] [id number] [place] [address]- 2324 May, [facility] [place] [facility] [address] [id number] [place] [address]- 2512 Apr, [facility] [place] [facility] [address] [id number] [place] [address]- 9677 Apr, [facility] [place] [facility] [address] [id number] [place] [address]- 8663 Apr, [facility] [place] [facility] [address] [id number] [place] [address]- 2146 Apr, [facility] [place] [facility] [address] [id number] [place] [address]- 3257 Apr, [facility] [place] [facility] [address] [id number] [place] [address]- 9717 Apr, [facility] [place] [facility] [address] [id number] [place] [address]- 5552 Mar, [facility] [place] [facility] [address] [id number] [place] 3659 Mar, [facility] [place] [facility] [address] [id number] [place] [address]- 9579 Mar, [facility] [place] [facility] [address] [id number] [place] [address]- 8661 Mar, [facility] [place] [facility] [address] [id number] [place] [address]- 4695 Mar, [facility] [place] [facility] [address] [id number] [place] [address]- 4464 Mar, [facility] [place] [facility] [address] [id number] [place] [address]- 7671 Mar, [facility] [place] [facility] [address] [id number] [place] [address]- 7497 Mar, [facility] [place] [facility] [address] [id number] [place] [address]- 0002 Feb, [facility] [place] [facility] [address] [id number] [address]- 9462 Feb, [facility] [place] [facility] [address] [id number] [address]- 4722 Jan, [facility] [place] [facility] [address] [id number] [place] [address]- 9978 Jan, [facility] [place] [facility] [address] [id number] [place] [address]- 1333 Jan, [facility] [place] [facility] [address] [id number] [place] [address]- 8801 Jan, [facility] [place] [facility] [address] [id number] [place] [address]- 1854 Jan, [facility] [place] [facility] [address] [id number] [place] [address]- 9818 Jan, [facility] [place] [facility] [address] [id number] [place] [address]- 0226 Dec, [facility] [place] [facility] [address] [id number] [place] [address]- 8383 Dec, [facility] [place] [facility] [address] [id number] [place] [address]- 9675 Dec, [facility] [place] [facility] [address] [id number] [place] [address]- 6496 Dec, [facility] [place] [facility] [address] [id number] [place] [address]- 1849 Nov, [facility] [place] [facility] [address] [id number] [place] [address]- 5679 Nov, [facility] [place] [facility] [address] [id number] [place] [address]- 6134 Nov, [facility] [place] [facility] [address] [id number] [place] [address]- 0506 Nov, [facility] [place] [facility] [address] [id number] [place] [address]- 7783 Nov, [facility] [place] [facility] [address] [id number] [place] [address]- 6994 Nov, [facility] [place] [facility] [address] [id number] [place] [address]- 8325 Nov, [facility] [place] [facility] [address] [id number] [place] [address]- 4228 Nov, [facility] [place] [facility] [address] [id number] [place] [address]- 3912 Nov, [facility] [place] [facility] [address] [id number] [place] [address]- 7572 Nov, [facility] [place] [facility] [address] [id number] [place] [address]- 5978 Nov, [facility] [place] [facility] [address] [id number] [place] [address]- 0253 Nov, [facility] [place] [facility] [address] [id number] [place] [address]- 6140 October, [facility] [place] [facility] [address] [id number] [place] [address]- 0402 October, [facility] [place] [facility] [address] [id number] [place] [address]- 5125 October, [facility] [place] [facility] [address] [id number] [place] [address]- 7842 October, [facility] [place] [facility] [address] [id number] [place] [address]- 1256 October, [facility] [place] [facility] [address] [id number] [place] [address]- 5214 October, [facility] [place] [facility] [address] [id number] [place] [address]- 7968 October, [facility] [place] [facility] [address] [id number] [place] [address]- 5260 October, [facility] [place] [facility] [address] [id number] [place] [address]- 3600 October, [facility] [place] [facility] [address] [id number] [place] [address]- 0611 Sep, [facility] [place] [facility] [address] [id number] [place] [address]- 1280 Sep, [facility] [place] [facility] [address] [id number] [place] [address]- 2024 Sep, [facility] [place] [facility] [address] [id number] [place] [address]- 7457 Sep, [facility] [place] [facility] [address] [id number] [place] [address]- 4476 Sep, [facility] [place] [facility] [address] [id number] [place] 2947 Sep, [facility] [place] [facility] [address] [id number] [place] [address]- 0517 Aug, [facility] [place] [facility] [address] [id number] [place] [address]- 7155 Aug, [facility] [place] [facility] [address] [id number] [place] [address]- 3574 Aug, [facility] [place] [facility] [address] [id number] [place] [address]- 9627 Aug, [facility] [place] [facility] [address] [id number] [place] [address]- 2437 Aug, [facility] [place] [facility] [address] [id number] [place] [address]- 7188 Aug, [facility] [place] [facility] [address] [id number] [place] [address]- 7632 Aug, [facility] [place] [facility] [address] [id number] [place] [address]- 4046 Aug, [facility] [place] [facility] [address] [id number] [place] [address]- 7927 Aug, [facility] [place] [facility] [address] [id number] [place] [address]- 0782 Aug, [facility] [place] [facility] [address] [id number] [place] [address]- 0166 Jul, [facility] [place] [facility] [address] [id number] [place] [address]- 2128 Jul, [facility] [place] [facility] [address] [id number] [place] [address]- 3688 Jun, [facility] [place] [facility] [address] [id number] [place] [address]- 2305 Jun, [facility] [place] [facility] [address] [id number] [place] [address]- 5941 Jun, [facility] [address] [id number] [place] [address]- 3656 Jun, [facility] [address] [id number] [place] [address]- 9677 Jun, [facility] [address] [id number] [place] [address]- 8415 Jun, [facility] [address] [id number] [place] [address]- 5812 Jun, [facility] [address] [id number] [place] [address]- 8450 Jun, [facility] [address] [id number] [place] [address]- 1712 May, [facility] [address] [id number] [place] [address]- 7081 May, [facility] [address] [id number] [place] [address]- 8192 May, [facility] [address] [id number] [place] [address]- 2244 May, [facility] [address] [id number] [place] [address]- 0014 May, [facility] [address] [id number] [place] [address]- 0095 May, [facility] [address] [id number] [place] [address]- 2544 May, [facility] [place] [facility] [address] [id number] [place] 2870 May, [facility] [address] [id number] [place] [address]- 5749 May, [facility] [address] [id number] [place] [address]- 2243 Apr, [facility] [place] [facility] [address] [id number] [place] [address]- 6723 Apr, [facility] [place] [facility] [address] [id number] [place] [address]- 6399 Apr, [facility] [place] [facility] [address] [id number] [place] [address]- 6713 Apr, [facility] [place] [facility] [address] [id number] [place] [address]- 0833 Mar, [facility] [place] [facility] [address] [id number] [place] [address]- 5722 Mar, [facility] [place] [facility] [address] [id number] [place] [address]- 4579 Mar, [facility] [place] [facility] [address] [id number] [place] [address]- 1974 Mar, [facility] [place] [facility] [address] [id number], [place] [address]- 5372 Mar, [facility] [place] [facility] [address] [id number] [place] [address]- 7689 Mar, [facility] [place] [facility] [address] [id number], [place] [address]- 8000 Mar, [facility] [place] [facility] [address] [id number], [place] [address]- 2194 Mar, [facility] [place] [facility] [address] [id number], [place] [address]- 6468 Mar, [facility] [place] [facility] [address] [id number] [place] [address]- 6944 Mar, [facility] [place] [facility] [address] [id number], [place] [address]- 4769 Mar, [facility] [place] [facility] [address] [id number] 5908 Mar, [facility] [place] [facility] [address] [id number] [place] [address]- 7679 18 Mar, 2012 [facility] [place] [facility] [address] [id number] [place] [address]- 8249 18 Mar, 2012 [facility] [place] [facility] [address] [id number], [place] [address]- 5904 18 Mar, 2012 [facility] [place] [facility] [address] [id number] [place] [address]- 8324 18 Mar, 2012 [facility] [place] [facility] [address] [id number] [place] [address]- 2422 17 Mar, 2012 [facility] [place] [facility] [address] [id number] [place] [address]- 6653 17 Mar, 2012 [facility] [place] [facility] [address] [id number] [place] [address]- 4841 15 Mar, 2012 [facility] [place] [facility] [address] [id number], [place] [address]- 5098 15 Mar, 2012 [facility] [place] [facility] [address] [id number], [place] [address]- 1878 14 Mar, 2012 [facility] [place] [facility] [address] [id number] [place] [address]- 8427 14 Mar, 2012 [facility] [place] [facility] [address] [id number], [place] [address]- 2854 14 Mar, 2012 [facility] [place] [facility] [address] [id number], [place] [address]- 7674 14 Mar, 2012 [facility] [place] [facility] [address] [id number], [place] [address]- 8563 12 Mar, 2012 [facility] [place] [facility] [address] [id number], [place] [address]- 3635 11 Mar, 2012 [facility] [place] [facility] [address] [id number], [place] [address]- 2485 11 Mar, 2012 [facility] [place] [facility] [address] [id number], [place] [address]- 6676 10 Mar, 2012 [facility] [place] [facility] [address] [id number] [place] [address]- 1594 10 Mar, 2013 [facility] [place] [facility] [address] [id number] [place] [address]- 6026 Mar, [facility] [place] [facility] [address] [id number] [place] [address] 2546 Mar, [facility] [place] [facility] [address] [id number] [place] [address]- 2830 04 Mar, 2013 [facility] [place] [facility] [address] [id number] [place] [address] 2547 Mar, [facility] [place] [facility] [address] [id number] [place] [address]- 3968 27 Feb, 2013 [facility] [place] [facility] [address] [id number] [place] [address]- 9236 Feb, [facility] [place] [facility] [address] [id number] [place] [address]- 2436 04 Feb, 2013 [facility] [place] [facility] [address] [id number] [place] [address]- 3493 Feb, [facility] [place] [facility] [address] [id number] [place] [address]- 0252 29 Jan, 2013 [facility] [place] [facility] [address] [id number] [place] [address] 254 Jan, [facility] [place] [facility] [address] [id number] [place] [address]- 2547 Jan, [facility] [place] [facility] [address] [id number] [place] [address] 2544 Jan, [facility] [place] [facility] [address] [id number] [place] [address] 2546 16 Jan, 2013 [facility] [place] [facility] [address] [id number] [place] [address] 2548 Jan, [facility] [place] [facility] [address] [id number] [place] [address]- 4341 Dec, [facility] [address] [id number] [place] [address]- 5849 Dec, [facility] [place] [facility] [address] [id number] [place] [address]- 1953 Dec, [facility] [place] [facility] [address] [id number] [place] [address]- 6603 Dec, [facility] [place] [facility] [address] [id number] [place] [address]- 4985 Dec, [facility] [address] [id number] [place] [address]- 5236 Dec, [facility] [place] [facility] [address] [id number] [place] [address]- 0431 Dec, [facility] [place] [facility] [address] [id number] [place] [address]- 8655 Dec, [facility] [place] [facility] [address] [id number] [place] [address]- 4571 Dec, [facility] [place] [facility] [address] [id number] [place] [address]- 9285 Dec, [facility] [place] [facility] [address] [id number] [place] [address] Dec, [facility] [place] [facility] [address] [id number] [place] [address] October, [facility] [place] [facility] [address] [id number] [place] [address] October, [facility] [place] [facility] [address] [id number] [place] [address] October, [facility] [place] [facility] [address] [id number] [place] [address] October, [facility] [place] [facility] [address] [id number] [place] [address] Sep, [facility] [place] [facility] [address] [id number] [address] Sep, 2012 [facility] [id number] [address] Sep, [facility] [id number] [address] Sep, [facility] [id number], [place] [address] Sep, [facility] [id number] [address] Sep, [facility] [id number] [place] [address] Sep, [facility] [id number], [place] [address] Sep, [facility] [id number] [address] Sep, [facility] [id number] [address] Sep, [facility] [id number] [address] Sep, IMMUNIZATIONS No Known Immunizations SOCIAL HISTORY Never Assessed REASON FOR VISIT requesting return call PLAN OF CARE VITAL SIGNS MEDICATIONS Medication Instructions Dosage Frequency Start Date End Date Duration Status Lasix 80 MG Orally Once a day 1 tablet 24h Dec, Active RESULTS No Results PROCEDURES No [...] problems 09/2015 Hospitalization History Acute dyspnea, muscle cramps--[facility] 03/04/16 Hospitalization History RLE Cellulitis, Hypokalemia, anemia-[facility] 09/29/15 Hospitalization History Lower edema 09/2016 Hospitalization History Received stitches ER 10/2016 Hospitalization History hallucinations/ dimished mental capasity 03/19-03/21/18
[2018-07-12] MEDS ORDERED: NS IV 1000 ML 1,000 ML IV SCH ×2 (08:03→11:24)
--- OUTSIDE RECORDS SUMMARY | 2018-07-12 08:03 | XMS REPORT ---
Author Author JAN HERNANDEZ [facility] Address [address] [place] [address] Care Team Providers Care Special Programs Director Name Role Phone JAN HERNANDEZ Unavailable PROBLEMS Type Condition ICD9-CM Code ZDW24-SV Code Onset Dates Condition Status SNOMED Code Problem Prediabetes R73.09 Active 0222027 Problem Hypokalemia E87.6 Active 99222939 Problem Arthritis M19.90 Active 3087878 Problem Neuropathy G62.9 Active 760110474 Problem Obesity hypoventilation syndrome E66.2 Active 535041497 Problem 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 Active 822641111 Problem Body mass index (BMI) of 45.0-49.9 in adult Z68.42 Active 440547227 Problem Coronary artery disease involving [place] coronary artery of [place] heart without angina pectoris I25.10 Active 6578315457959 Problem Venous insufficiency I87.2 Active 66762638 Problem Anemia D64.9 Active 571005847 Problem Cor pulmonale I27.81 Active 08507797 Problem Back pain M54.9 Active 398549396 Problem Restrictive lung disease J98.4 Active 64897455 Problem Hypothyroidism E03.9 Active 13006015 ALLERGIES No Information ENCOUNTERS Encounter Location Date Diagnosis [facility] [address], [place] [address] May, [facility] [address], [place] [address] 8027 Apr, [facility] [id number] [place] [address] 26496- 7723 Apr, [facility] [address], [place] [address] 4853 Apr, Neuropathy G62.9 and Prediabetes R73.09 [facility] [id number] [place] [address] 39706- 9351 Apr, [facility] [address] 35414- 4145 Apr, [facility] [id number] [place] [address] 04585- 6212 Apr, [facility] [address] 30817 -9460 Apr, Swelling of right lower extremity M79.89 [facility] [id number] [place] [address] 69482- 6856 Apr, [facility] [address] 9[address]55- 7443 Mar, Bronchitis J40 [facility] [address] 12970- 1353 Mar, [facility] [address] 13885- 5107 Mar, 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 ; Encounter for immunization Z23 and Arthritis M19.90 [facility] [id number] [place] [address] 94191- 7515 Mar, Arthritis M19.90 and Back pain M54.9 [facility] [id number] [place] [address] 76946- 7027 Mar, [facility] [id number] [place] [address] 27077- 5658 Mar, [facility] [id number] [place] [address] 33562- 8220 Feb, Arthritis M19.90 [facility] [id number] [place] [address] 82661- 9035 Jan, Arthritis M19.90 [facility] [id number] [place] [address] 59722- 3851 Jan, Back pain M54.9 and Arthritis M19.90 [facility] [id number] [address] 8667 Jan, [facility] [id number] [place] [address] 88808- 5008 Jan, Back pain M54.9 [facility] [id number] [place] [address] 46864- 8676 Jan, Arthritis M19.90 [facility] [id number] [place] [address] 51890- 9238 Jan, Back pain M54.9 [facility] [id number] [place] [address] 28848- 7552 Jan, [facility] [id number] [place] [address] 22171- 3948 Jan, Back pain M54.9 [facility] [id number] [place] [address] 57246- 3573 Dec, Ingrowing nail with infection L60.0 and Onychomycosis B35.1 [facility] [id number] [place] [address] 28602- 1643 Dec, Arthritis M19.90 [facility] [id number] [place] [address] 11753- 7501 Dec, Ingrowing nail L60.0 [facility] [id number] [place] [address] 01840- 5715 Dec, Back pain M54.9 [facility] [address] [place] [address] 55510 -4057 Dec, [facility] [id number] [place] [address] 35154- 3157 Dec, Back pain M54.9 [facility] [id number] [place] [address] 23191- 2591 Nov, Arthritis M19.90 [facility] [id number] [place] [address] 61252- 4360 Nov, [facility] [id number] [place] [address] 45864- 0545 Nov, Arthritis M19.90 ; Anemia D64.9 ; Restrictive lung disease J98.4 ; Weakness R53.1 and BMI 50.0-59.9, adult Z68.43 [facility] [id number] [place] [address] 14751- 7362 Nov, Arthritis M19.90 [facility] [id number] [place] [address] 53551- 8503 Nov, Back pain M54.9 [facility] [id number] [place] [address] 87642- 2436 October, Back pain M54.9 [facility] [id number] [place] [address] 89995- 9378 October, Back pain M54.9 [facility] [id number] [place] [address] 92398- 7322 Sep, Back pain M54.9 [facility] [id number] [place] [address] 93192- 5759 Sep, Back pain M54.9 [facility] [id number] [place] [address] 43188 -7920 Sep, [facility] [id number] [place] [address] 02505 -9513 Sep, [facility] [id number] [place] [address] 37945 -8167 Sep, Swelling of right lower extremity M79.89 and Cellulitis of right lower extremity L03.115 [facility] [id number] [place] [address] 70648- 9662 Aug, Back pain M54.9 [facility] [id number], [place] [address]- 8917 15 Aug, 2017 Back pain M54.9 [facility] [address] [place] [address] 43443- 0636 Aug, [facility] [address] [place] [address] 54868- 4131 Aug, Cellulitis of right lower extremity L03.115 ; Ventral hernia without obstruction or gangrene K43.9 and BMI 50.0-59.9, adult Z68.43 [facility] [address] [place] [address] 00330- 4414 28 Jul, 2017 Back pain M54.9 [facility] [address] [place] [address] 42042- 7874 28 Jul, 2017 warm in (current) 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 Z79.891 ; Arthritis M19.90 ; Back pain M54.9 ; Prediabetes R73.09 ; Hypothyroidism E03.9 ; Coronary artery disease involving [place] coronary artery of [place] heart without angina pectoris I25.10 and Anemia D64.9 [facility] [address] [place] [address] 54168- 8220 27 Jul, 2017 warm in (current) 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 Z79.891 ; Back pain M54.9 ; Arthritis M19.90 ; Prediabetes R73.09 ; Hypothyroidism E03.9 ; Coronary artery disease involving [place] coronary artery of [place] heart without angina pectoris I25.10 ; Anemia D64.9 and BMI 45.0-49.9, adult Z68.42 [facility] [address], [place] [address]- 5421 15 Jul, 2017 Back pain M54.9 [facility] [address] [place] [address] 08574- 7743 05 Jul, 2017 Back pain M54.9 [facility] [address] [place] [address] 15105- 0145 Jun, Back pain M54.9 [facility] [id number] [place] [address] 53169- 2558 Jun, Back pain M54.9 [facility] [id number] [place] [address] 10693 -0846 May, Skin cancer of face C44.300 and BMI 45.0-49.9, adult Z68.42 [facility] [address] 44659- 5429 May, [facility] [id number] [place] [address] 98124- 9091 May, Back pain M54.9 [facility] [address] 76138- 6304 May, Back pain M54.9 [facility] [id number] [place] [address] 81611- 1580 May, Back pain M54.9 [facility] [address] 71382- 8467 Apr, Back pain M54.9 [facility] [address] 40794- 7181 Apr, Back pain M54.9 [facility] [id number] [place] [address] 73294- 1282 Mar, Back pain M54.9 [facility] [address] 80945- 7327 Mar, Anemia D64.9 ; Encounter for immunization Z23 ; Arthritis M19.90 and Right inguinal hernia K40.90 [facility] [address] 58364- 5044 Mar, Back pain M54.9 [facility] [id number] [place] [address] 44658- 3732 Feb, Back pain M54.9 [facility] [address] [place] [address]- 5601 13 Feb, 2017 Back pain M54.9 [facility] [address] [facility] [id number] [place] [address] 94779 2546 Jan, Back pain M54.9 [facility] [address] [facility] [id number] [place] [address] 93286 2546 Jan, Back pain M54.9 [facility] [id number] [place] [address] 29901 2546 Jan, [facility] [address] [facility] [id number] [place] [address] 41830 2545 Jan, Back pain M54.9 [facility] [id number] [place] [address] 29419 2547 Dec, Back pain M54.9 [facility] [id number] [place] [address] 01693- 0046 Dec, Back pain M54.9 [facility] [id number] [place] [address] 06125 2544 Dec, [facility] [id number] [place] [address] 26392 2540 Nov, Hypokalemia E87.6 [facility] [id number] [place] [address] 70758 2544 Nov, Back pain M54.9 [facility] [id number] [place] [address] 64509 2546 Nov, [facility] [address] [facility] [id number] [place] [address] 03548 2546 Nov, Arthritis M19.90 [facility] [id number] [place] [address] 48750 2546 Nov, Back pain M54.9 [facility] [id number] [place] [address] 92613 2546 Nov, Generalized edema R60.1 [facility] [id number] [place] [address] 53667- 5249 Nov, Back pain M54.9 [facility] [id number] [place] [address] 86609- 2633 07 Nov, 2016 Pain in right knee M25.561 [facility] [id number] [place] [address] 85937- 1052 05 Nov, 2016 Encounter for removal of sutures Z48.02 and Pain in right knee M25.561 [facility] [id number] [place] [address] 99606 -7991 Nov, Abrasion of right foot, subsequent encounter S90.811D [facility] [place] [id number] [place] [address] 96216 -6654 October, Toe abrasion, right, initial encounter S90.414A [facility] [id number] [place] [address] 50372- 6280 October, [facility] [id number] [place] [address] 11325- 7677 October, Back pain M54.9 [facility] [id number] [place] [address] 95235- 9618 October, Venous insufficiency I87.2 [facility] [id number] [place] [address] 32246- 6624 October, Pain in right knee M25.561 [facility] [id number] [place] [address] 16916- 3427 Sep, Back pain M54.9 [facility] [id number] [place] [address] 20159- 9319 Sep, Venous insufficiency I87.2 [facility] [id number] [place] [address] [id number] Sep, [facility] [id number] [place] [address] 06643 -9930 16 Sep, 2016 Leg edema, right R60.0 and Cellulitis of right lower extremity L03.115 [facility] [id number] [place] [address] 75641- 6253 14 Sep, 2016 Pedal edema R60.0 [facility] [id number] [place] [address] 51398- 9362 04 Sep, 2016 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 ; Pain in right knee M25.561 and Arthritis M19.90 [facility] [address] 72794- 1337 Aug, Back pain M54.9 [facility] [address] 18765- 1962 Aug, Back pain M54.9 [facility] [id number] [place] [address] 82926- 1375 Aug, [facility] [id number] [place] [address] 80773- 9581 Aug, Type 2 diabetes mellitus without complication E11.9 ; Restrictive lung disease J98.4 ; Arthritis M19.90 ; Back pain M54.9 ; Body mass index (BMI) of 45.0-49.9 in adult Z68.42 and Morbid (severe) obesity due to excess calories E66.01 [facility] [id number] [place] [address] 47394- 4720 Aug, Back pain M54.9 [facility] [id number] [place] [address] 24712- 2788 Aug, Back pain M54.9 [facility] [address] 21678- 4998 Jul, [facility] [id number] [place] [address] 90271- 9988 Jul, Back pain M54.9 [place] [facility] [address] 65837- 2294 Jul, Back pain M54.9 [facility] [address] [facility] [id number] [place] [address] 07143- 4440 Jun, Back pain M54.9 [facility] [address] [facility] [id number] [place] [address] 11867- 1468 Jun, Back pain M54.9 [facility] [id number] [place] [address] 34535- 3198 May, Back pain M54.9 [facility] [id number] [place] [address] 22414- 5068 May, Back pain M54.9 [facility] [id number] [place] [address] 08328- 1894 May, Back pain M54.9 [facility] [id number] [place] [address] 59784- 5856 May, Back pain M54.9 [facility] [id number] [place] [address] 29854- 0431 May, [facility] [id number] [place] [address] 35399- 1334 May, Back pain M54.9 and Pain in right knee M25.561 [facility] [id number] [place] [address] 27485- 1114 Apr, [facility] [id number] [place] [address] 90737- 3475 Apr, Type 2 diabetes mellitus without complication E11.9 ; Pain in right knee M25.561 and Pain in left knee M25.562 [facility] [id number] [place] [address] 61995- 5969 Mar, [facility] [id number] [place] [address] 35296- 0250 Mar, [facility] [id number] [place] [address] 26452- 0189 Mar, [facility] [address] [facility] [id number] [address]- 9743 Mar, Restrictive lung disease J98.4 ; Anemia D64.9 and Cor pulmonale I27.81 [facility] [address] [facility] [id number], [place] [address]- 0166 17 Mar, 2016 [facility] [address] [facility] [id number] [place] [address] 87273- 2030 14 Mar, 2016 [facility] [address] [facility] [id number] [address]- 2866 Mar, [facility] [address] [facility] [id number], [place] [address]- 5065 30 Feb, 2016 [facility] [address] [address]- 8437 29 Feb, 2016 [facility] [id number] [place] [address] 69151- 7517 28 Feb, 2016 [facility] [id number] [address]- 0393 27 Feb, 2016 Restrictive lung disease J98.4 [facility] [address] [address]- 8001 Feb, [facility] [id number] [address] -1267 Feb, [facility] [id number] [address]- 5347 16 Feb, 2016 [facility] [id number] [address]- 4243 Jan, [facility] [id number] [address]- 9136 Jan, [facility] [address], [place] [address]- 1374 Jan, [facility] [address], [place] [address]- 3055 Jan, [facility] [address] [place] [address] 71760- 9459 Jan, Restrictive lung disease J98.4 ; Anemia D64.9 and Cor pulmonale I27.81 [facility] [address] [place] [address] 93798- 5181 Dec, [facility] [id number] [place] [address] 79866- 4493 Dec, [facility] [id number] [place] [address] 19035- 2651 Nov, Arthritis M19.90 and Hypokalemia E87.6 [facility] [id number] [place] [address] 28216- 2183 Nov, Back pain M54.9 [facility] [id number] [place] [address] 25610- 8571 October, Back pain M54.9 [facility] [id number] [place] [address] 52006- 4935 October, Back pain M54.9 [facility] [id number] [place] [address] 43228- 1309 Sep, Scabies exposure Z20.89 [facility] [id number] [place] [address] 01136- 2541 Sep, Restrictive lung disease J98.4 [facility] [id number] [place] [address] 72820- 3443 Sep, Back pain M54.9 [facility] [id number] [place] [address] 97632- 4761 Sep, Restrictive lung disease J98.4 [facility] [id number] [address] Aug, [facility] [address] [address] [address] Aug, [facility] [id number] [place] [address] 97001- 8827 Aug, [facility] [id number] [place] [address] 40950- 9879 Aug, [facility] [id number] [place] [address] 79621- 8153 Aug, Back pain M54.9 [facility] [id number] [place] [address] 71795- 0183 Jul, Anemia D64.9 and Prediabetes R73.09 [facility] [id number] [place] [address] 99249- 6073 Jul, Back pain M54.9 [facility] [id number] [place] [address] 02914- 1099 Jul, Back pain M54.9 [facility] [id number] [place] [address] 89596- 5165 Jul, [facility] [id number] [place] [address] 79471- 6939 05 Jul, 2015 Bronchitis J40 and Anemia D64.9 [facility] [id number] [address] Jun, [facility] [id number] [place] [address] 72624- 3773 Jun, [facility] [id number] [place] [address] 50200- 254 Jun, Bronchitis J40 and Anemia D64.9 [facility] [id number] [address] Jun, [facility] [id number] [address] 2483 Jun, Back pain M54.9 [facility] [id number] [place] [address] 94901- 1850 Jun, Anemia D64.9 [facility] [address] [address]- [address] Jun, Restrictive lung disease J98.4 ; Anemia D64.9 ; Hypothyroidism E03.9 ; Cor pulmonale I27.81 and Back pain M54.9 [facility] [id number] [place] [address] 39774- 1761 May, [facility] [id number] [place] [address] 34435- 7614 Apr, Anemia D64.9 ; Encounter for immunization Z23 and Restrictive lung disease J98.4 [facility] [id number] [place] [address] 15709- 1476 Apr, [facility] [address] [address]- [address]1 Mar, [facility] [id number] [place] [address] 00092- 2336 Mar, Iron deficiency anemia D50.9 [facility] [id number] [place] [address] 57307- 2044 Mar, [facility] [id number] [place] [address] 61398- 8699 Mar, [facility] [id number] [place] [address] 15752- 8717 Mar, Anemia D64.9 [facility] [id number] [place] [address] [id number] 2548 Mar, [facility] [id number] [place] [address] 00564- 8616 Mar, Anemia D64.9 [facility] [id number] [place] [address] 46749- 3781 Mar, Restrictive lung disease J98.4 and Anemia D64.9 [facility] [id number] [address] 6684 Mar, [facility] [id number] [place] [address] 41297- 9202 Mar, Anemia D64.9 [facility] [id number] [place] [address] 45090- 4952 Mar, Anemia D64.9 [facility] [id number] [place] [address] 85134- 3598 Mar, [facility] [id number] [place] [address] 55203- 5908 Mar, Diabetes mellitus E11.9 ; Bronchitis J40 and Anemia D64.9 [facility] [id number] [place] [address] 73652- 1518 30 Feb, 2015 [facility] [id number] [place] [address] 80788- 0816 Feb, [facility] [id number] [place] [address] 94405- 2936 Feb, [facility] [id number] [place] [address] 42855- 1617 Feb, [facility] [id number] [place] [address] 69052- 6300 Jan, [facility] [id number] [place] [address] 39748- 6287 Jan, [facility] [id number] [place] [address] 33588- 0466 Dec, Venous insufficiency 459.81 [facility] [id number] [place] [address] 59552- 3692 Dec, [facility] [id number] [place] [address] 95148- 3261 Dec, [facility] [id number] [place] [address] 38455- 0869 Dec, Coronary atherosclerosis of unspecified type of vessel, [place] or graft 414.00 ; Unspecified anemia 285.9 and Generalized osteoarthrosis , unspecified site 715.00 [facility] [id number] [place] [address] 82236- 3601 Nov, [facility] [id number] [place] [address] 21602- 4681 Nov, [facility] [id number] [place] [address] 23159- 4775 Nov, [facility] [id number] [place] [address] 41374- 1365 October, [facility] [id number] [place] [address] 60310- 4855 October, Acute bronchitis 466.0 and Shortness of breath 786.05 [facility] [id number] [place] [address] 83491- 1944 Sep, [facility] [id number] [place] [address] 97331- 3665 Sep, [facility] [id number] [place] [address] 16385- 6623 Aug, [facility] [id number] [place] [address] 30261- 6071 Aug, [facility] [id number] [place] [address] 55136- 2595 Jul, [facility] [id number] [place] [address] 12122- 0556 Jul, [facility] [id number] [place] [address] 84659- 9058 Jul, [facility] [id number] [place] [address] 65512- 9734 Jul, [facility] [id number] [place] [address] 69392- 0340 Jun, [facility] [place] [facility] [address] [id number] [place] [address]- 8552 Jun, [facility] [place] [facility] [address] [id number] [place] [address]- 2447 Jun, [facility] [place] [facility] [address] [id number] [place] [address]- 7991 Jun, [facility] [place] [facility] [address] [id number] [place] [address]- 0327 Jun, [facility] [place] [facility] [address] [id number] [place] [address]- 7144 Jun, [facility] [place] [facility] [address] [id number] [place] [address]- 3610 May, [facility] [place] [facility] [address] [id number] [place] [address]- 0872 May, [facility] [place] [facility] [address] [id number] [place] [address]- 9290 May, [facility] [place] [facility] [address] [id number] [place] [address]- 2478 May, [facility] [place] [facility] [address] [id number] [place] [address]- 5498 Apr, [facility] [place] [facility] [address] [id number] [place] [address]- 3032 Apr, [facility] [place] [facility] [address] [id number] [place] [address]- 4806 Apr, [facility] [place] [facility] [address] [id number] [place] [address]- 8876 Apr, [facility] [place] [facility] [address] [id number] [place] [address]- 3633 Apr, [facility] [place] [facility] [address] [id number] [place] [address]- 8114 Apr, [facility] [place] [facility] [address] [id number] [place] [address]- 8003 Mar, [facility] [place] [facility] [address] [id number] [place] [address]- 4012 Mar, [facility] [place] [facility] [address] [id number] [place] [address]- 9528 Mar, [facility] [place] [facility] [address] [id number] [place] [address]- 1331 Mar, [facility] [place] [facility] [address] [id number] [place] [address]- 0601 Mar, [facility] [place] [facility] [address] [id number] [place] [address]- 8180 Mar, [facility] [place] [facility] [address] [id number] [place] [address]- 6379 Mar, [facility] [place] [facility] [address] [id number] [place] [address]- 8301 Mar, [facility] [place] [facility] [address] [id number] [place] [address]- 8294 Feb, [facility] [place] [facility] [address] [id number] [place] [address]- 6104 Feb, [facility] [place] [facility] [address] [id number] [place] [address]- 5809 Jan, [facility] [place] [facility] [address] [id number] [place] [address]- 1503 Jan, [facility] [place] [facility] [address] [id number] [place] [address]- 4718 Jan, [facility] [place] [facility] [address] [id number] [place] [address]- 8938 Jan, [facility] [place] [facility] [address] [id number] [place] [address]- 9758 Jan, [facility] [place] [facility] [address] [id number] [place] [address]- 5271 Jan, [facility] [place] [facility] [address] [id number] [place] [address]- 0494 Dec, [facility] [place] [facility] [address] [id number] [place] [address]- 1735 Dec, [facility] [place] [facility] [address] [id number] [place] [address]- 4696 Dec, [facility] [place] [facility] [address] [id number] [place] [address]- 9408 Dec, [facility] [place] [facility] [address] [id number] [place] [address]- 8803 Nov, [facility] [place] [facility] [address] [id number] [place] [address]- 6047 Nov, [facility] [place] [facility] [address] [id number] [place] [address]- 9538 Nov, [facility] [place] [facility] [address] [id number] [place] [address]- 9609 Nov, [facility] [place] [facility] [address] [id number] [place] [address]- 7579 Nov, [facility] [place] [facility] [address] [id number] [place] [address]- 4946 Nov, [facility] [place] [facility] [address] [id number] [place] [address]- 8187 Nov, [facility] [place] [facility] [address] [id number] [place] [address]- 3353 Nov, [facility] [place] [facility] [address] [id number] [place] [address]- 9688 Nov, [facility] [place] [facility] [address] [id number] [place] [address]- 0043 Nov, [facility] [place] [facility] [address] [id number] [place] [address]- 2481 Nov, [facility] [place] [facility] [address] [id number] [place] [address]- 5325 Nov, [facility] [address] [id number] [place] [address]- 9605 October, [facility] [place] [facility] [address] [id number] [place] [address]- 0836 October, [facility] [place] [facility] [address] [id number] [place] [address]- 8625 October, [facility] [place] [facility] [address] [id number] [place] [address]- 7204 October, [facility] [place] [facility] [address] [id number] [place] [address]- 3616 October, [facility] [place] [facility] [address] [id number] [place] [address]- 3717 October, [facility] [address] [id number] [place] [address]- 7963 October, [facility] [place] [facility] [address] [id number] [place] [address]- 6498 October, [facility] [place] [facility] [address] [id number] [place] [address]- 5491 October, [facility] [place] [facility] [address] [id number] [place] [address]- 7600 Sep, [facility] [place] [facility] [address] [id number] [place] [address]- 5186 Sep, [facility] [place] [facility] [address] [id number] [place] [address]- 6426 Sep, [facility] [place] [facility] [address] [id number] [place] [address]- 5679 Sep, [facility] [place] [facility] [address] [id number] [place] [address]- 4421 Sep, [facility] [place] [facility] [address] [id number] [place] [address]- 0140 Sep, [facility] [place] [facility] [address] [id number] [place] [address]- 7682 Aug, [facility] [place] [facility] [address] [id number] [place] [address]- 4046 Aug, [facility] [place] [facility] [address] [id number] [place] [address]- 9745 Aug, [facility] [place] [facility] [address] [id number] [place] [address]- 7601 Aug, [facility] [place] [facility] [address] [id number] [place] [address]- 7162 Aug, [facility] [place] [facility] [address] [id number] [place] [address]- 0091 Aug, [facility] [place] [facility] [address] [id number] [place] [address]- 5587 Aug, [facility] [place] [facility] [address] [id number] [place] [address]- 9109 Aug, [facility] [place] [facility] [address] [id number] [place] [address]- 6275 Aug, [facility] [place] [facility] [address] [id number] [place] [address]- 6329 Aug, [facility] [place] [facility] [address] [id number] [place] [address]- 8012 Jul, [facility] [place] [facility] [address] [id number] [place] [address]- 7788 Jul, [facility] [place] [facility] [address] [id number] [place] [address]- 7540 Jun, [facility] [place] [facility] [address] [id number] [place] [address]- 3222 Jun, [facility] [place] [facility] [address] [id number] [place] [address]- 6367 Jun, [facility] [place] [facility] [address] [id number] [place] [address]- 9060 Jun, [facility] [address] [id number] [place] [address]- 3590 Jun, [facility] [place] [facility] [address] [id number] [place] [address]- 5390 Jun, [facility] [place] [facility] [address] [id number] [place] [address]- 2381 Jun, [facility] [place] [facility] [address] [id number] [place] [address]- 0433 Jun, [facility] [place] [facility] [address] [id number] [place] [address]- 2487 May, [facility] [place] [facility] [address] [id number] [place] [address]- 1612 May, [facility] [place] [facility] [address] [id number] [place] [address]- 4244 May, [facility] [place] [facility] [address] [id number] [place] [address]- 8628 May, [facility] [place] [facility] [address] [id number] [place] [address]- 2876 May, [facility] [place] [facility] [address] [id number] [place] [address]- 4702 May, [facility] [place] [facility] [address] [id number] [place] [address]- 3538 May, [facility] [place] [facility] [address] [id number] [place] [address]- 3865 May, [facility] [place] [facility] [address] [id number] [place] [address]- 5587 May, [facility] [place] [facility] [address] [id number] [place] [address]- 3056 Apr, [facility] [place] [facility] [address] [id number] [place] [address]- 7393 Apr, [facility] [place] [facility] [address] [id number] [place] [address]- 8072 Apr, 2012 [facility] [address] [id number] [place] [address]- 9324 Apr, 2012 [facility] [place] [facility] [address] [id number] [place] [address]- 4079 Mar, 2012 [facility] [address] [id number] [place] [address]- 1647 Mar, 2012 [facility] [place] [facility] [address] [id number] [place] [address]- 9920 Mar, 2012 [facility] [place] [facility] [address] [id number] [place] [address]- 1554 Mar, 2012 [facility] [place] [facility] [address] [id number] [place] [address]- 6005 Mar, [facility] [place] [facility] [address] [id number] [place] [address]- 5208 Mar, 2012 [facility] [place] [facility] [address] [id number] [place] [address]- 1600 Mar, [facility] [place] [facility] [address] [id number] [place] [address]- 8078 Mar, 2012 [facility] [place] [facility] [address] [id number] [place] [address]- 3641 Mar, [facility] [place] [facility] [address] [id number] [place] [address]- 6026 Mar, 2012 [facility] [place] [facility] [address] [id number], [place] [address]- 3251 Mar, [facility] [place] [facility] [address] [id number] [place] [address]- 2946 Mar, 2012 [facility] [place] [facility] [address] [id number] [place] [address]- 6331 Mar, [facility] [place] [facility] [address] [id number], [place] [address]- 7153 Mar, 2012 [facility] [place] [facility] [address] [id number] [place] [address]- 3204 18 Mar, 2012 [facility] [place] [facility] [address] [id number] [place] [address]- 3957 18 Mar, 2012 [facility] [place] [facility] [address] [id number] [place] [address]- 8628 17 Mar, 2012 [facility] [place] [facility] [address] [id number] [place] [address]- 4449 17 Mar, 2012 [facility] [place] [facility] [address] [id number] [place] [address]- 2184 15 Mar, 2012 [facility] [place] [facility] [address] [id number] [place] [address]- 5082 15 Mar, 2012 [facility] [place] [facility] [address] [id number] [place] [address]- 5598 14 Mar, 2012 [facility] [place] [facility] [address] [id number], [place] [address]- 1465 14 Mar, 2012 [facility] [place] [facility] [address] [id number] [place] [address]- 7780 14 Mar, 2012 [facility] [place] [facility] [address] [id number], [place] [address]- 6718 14 Mar, 2012 [facility] [place] [facility] [address] [id number], [place] [address]- 5757 12 Mar, 2012 [facility] [place] [facility] [address] [id number], [place] [address]- 9970 11 Mar, 2012 [facility] [place] [facility] [address] [id number], [place] [address]- 3160 11 Mar, 2012 [facility] [place] [facility] [address] [id number], [place] [address]- 9202 10 Mar, 2012 [facility] [place] [facility] [address] [id number], [place] [address]- 0873 10 Mar, 2012 [facility] [place] [facility] [address] [id number], [place] [address]- 4041 Mar, [facility] [place] [facility] [address] [id number] [place] [address]- 6808 Mar, [facility] [place] [facility] [address] [id number] [place] [address]- 9407 Mar, [facility] [place] [facility] [address] [id number] [place] [address]- 6784 Mar, [facility] [place] [facility] [address] [id number] [place] [address]- 5698 Feb, [facility] [place] [facility] [address] [id number] [place] [address]- 0238 Feb, [facility] [place] [facility] [address] [id number] [place] [address]- 8654 Feb, [facility] [place] [facility] [address] [id number] [place] [address]- 0708 Feb, [facility] [place] [facility] [address] [id number] [place] [address]- 7213 Jan, [facility] [place] [facility] [address] [id number] [place] [address]- 4837 Jan, [facility] [place] [facility] [address] [id number] [place] [address]- 3368 Jan, [facility] [place] [facility] [address] [id number] [place] [address]- 2974 Jan, [facility] [place] [facility] [address] [id number] [place] [address]- 4699 Jan, [facility] [place] [facility] [address] [id number] [place] [address]- 6301 Jan, [facility] [place] [facility] [address] [id number] [place] [address]- 6196 Dec, [facility] [place] [facility] [address] [id number] [place] [address]- 9789 Dec, [facility] [place] [facility] [address] [id number] [place] [address]- 3088 Dec, [facility] [address] [id number] [place] [address]- 4810 Dec, [facility] [place] [facility] [address] [id number] [place] [address]- 7205 Dec, [facility] [address] [id number] [place] [address]- 7777 Dec, [facility] [place] [facility] [address] [id number] [place] [address]- 7452 Dec, [facility] [address] [id number] [place] [address]- 9114 Dec, [facility] [place] [facility] [address] [id number] [place] [address]- 6977 Dec, [facility] [place] [facility] [address] [id number] [place] [address]- 2662 Dec, [facility] [address] [id number] [place] [address]- 7469 Dec, [facility] [place] [facility] [address] [id number] [place] [address]- 9952 October, [facility] [place] [facility] [address] [id number] [place] [address]- 6003 October, [facility] [place] [facility] [address] [id number] [place] [address]- 8223 October, [facility] [place] [facility] [address] [id number] [place] [address] October, [facility] [place] [facility] [address] [id number] [place] [address] Sep, [facility] [place] [facility] [address] [id number] [place] [address] Sep, [facility] [place] [facility] [address] [id number] [place] [address] Sep, [facility] [address] [id number] [address] Sep, [facility] [id number] [address] Sep, [facility] [id number] [address] Sep, [facility] [id number] [address] Sep, [facility] [id number] [address] Sep, [facility] [id number] [address] Sep, [facility] [id number], [place] [address] Sep, [facility] [address] [id number], [place] [address] Sep, IMMUNIZATIONS No Known Immunizations SOCIAL HISTORY Never Assessed REASON FOR VISIT Medication question PLAN OF CARE VITAL SIGNS MEDICATIONS Unknown [...]
--- OUTSIDE RECORDS SUMMARY | 2018-07-12 08:04 | XMS REPORT ---
Author Author JAN HERNANDEZ [facility] Address [address] [place] [address] Care Team Providers Care Change Management Manager Name Role Phone JAN HERNANDEZ Unavailable PROBLEMS Type Condition ICD9-CM Code PGI21-NU Code Onset Dates Condition Status SNOMED Code Problem Prediabetes R73.09 Active 2312037 Problem Hypokalemia E87.6 Active 87947673 Problem Arthritis M19.90 Active 4435981 Problem Neuropathy G62.9 Active 588198014 Problem Obesity hypoventilation syndrome E66.2 Active 110015679 Problem 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 Active 644915692 Problem Body mass index (BMI) of 45.0-49.9 in adult Z68.42 Active 757944181 Problem Coronary artery disease involving [place] coronary artery of [place] heart without angina pectoris I25.10 Active 7701183241264 Problem Venous insufficiency I87.2 Active 47672347 Problem Anemia D64.9 Active 628452172 Problem Cor pulmonale I27.81 Active 28402768 Problem Back pain M54.9 Active 372743914 Problem Restrictive lung disease J98.4 Active 67959135 Problem Hypothyroidism E03.9 Active 97961230 ALLERGIES Substance Reaction Event Type Date Status Rocephin anaphylaxis, hives Drug Allergy Apr, Active Ibuprofen anaphylaxis, hives Drug Allergy Apr, Active ENCOUNTERS Encounter Location Date Diagnosis [facility] [address] [facility] [id number] [address] May, [facility] [address] [id number] [address] 6364 Apr, Neuropathy G62.9 and Prediabetes R73.09 [facility] [address] [id number] [address] 0[address] Apr, [facility] [id number] [address] 4322 Apr, [facility] [id number] [place] [address] 46015- 3479 Apr, [facility] [id number] [place] [address] 95992 -0438 Apr, Swelling of right lower extremity M79.89 [facility] [address] [address]- 2789 Apr, [facility] [id number] [place] [address] 48651- 4057 Mar, Bronchitis J40 [facility] [id number] [place] [address] 16826- 2351 Mar, [facility] [id number] [place] [address] 11126- 7758 Mar, 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 ; Encounter for immunization Z23 and Arthritis M19.90 [facility] [id number] [place] [address] 67177- 4464 Mar, Arthritis M19.90 and Back pain M54.9 [facility] [id number] [place] [address] 43382- 6089 Mar, [facility] [id number] [place] [address] 59095- 3504 Mar, [facility] [id number] [place] [address] 90173- 6315 Feb, Arthritis M19.90 [facility] [id number] [place] [address] 72020- 9108 Jan, Arthritis M19.90 [facility] [id number] [place] [address] 10931- 0165 Jan, Back pain M54.9 and Arthritis M19.90 [facility] [id number] [place] [address] 90836- 5846 Jan, [facility] [address] [facility] [id number] [address] 3767 Jan, Back pain M54.9 [facility] [address] [facility] [id number] [place] [address] 14514- 4068 Jan, Arthritis M19.90 [facility] [id number] [place] [address] 05841- 9296 Jan, Back pain M54.9 [facility] [address] [facility] [id number] [place] [address] 22556- 8765 Jan, [facility] [address] [facility] [id number] [place] [address] 17565- 9163 Jan, Back pain M54.9 [facility] [id number] [place] [address] 26750- 3569 Dec, Ingrowing nail with infection L60.0 and Onychomycosis B35.1 [facility] [address] [facility] [id number] [place] [address] 49276- 6193 Dec, Arthritis M19.90 [facility] [address] [facility] [id number] [place] [address] 55660- 7161 Dec, Ingrowing nail L60.0 [facility] [id number] [address]- 9290 Dec, Back pain M54.9 [facility] [address] [facility] [id number] [address] Dec, [facility] [address] [facility] [id number] [place] [address] 43865- 6411 Dec, Back pain M54.9 [facility] [id number] [place] [address] 22249- 9255 Nov, Arthritis M19.90 [facility] [id number] [place] [address] 22657- 4302 Nov, [facility] [id number] [place] [address] 88491- 8098 Nov, Arthritis M19.90 ; Anemia D64.9 ; Restrictive lung disease J98.4 ; Weakness R53.1 and BMI 50.0-59.9, adult Z68.43 [facility] [id number] [place] [address] 70030- 3950 Nov, Arthritis M19.90 [place] [address] 92863- 9166 Nov, Back pain M54.9 [place] [address] 31403- 4588 October, Back pain M54.9 [place] [id number] [place] [address] 54694- 9230 October, Back pain M54.9 [place] [id number] [place] [address] 13613- 7665 Sep, Back pain M54.9 [facility] [id number] [place] [address] 43501- 3984 Sep, Back pain M54.9 [facility] [id number] [place] [address] 23740 -0242 Sep, [facility] [id number] [place] [address] 78236 -2694 Sep, [facility] [id number] [place] [address] 51050 -5071 Sep, Swelling of right lower extremity M79.89 and Cellulitis of right lower extremity L03.115 [place] [id number] [place] [address] 36647- 1981 Aug, Back pain M54.9 [facility] [id number] [place] [address] 10018- 1500 Aug, Back pain M54.9 [facility] [id number] [place] [address] 99270- 0178 Aug, [place] [id number] [place] [address] 84309- 9180 Aug, Cellulitis of right lower extremity L03.115 ; Ventral hernia without obstruction or gangrene K43.9 and BMI 50.0-59.9, adult Z68.43 [place] [place] [id number] [place] [address] 60453- 9151 28 Jul, 2017 Back pain M54.9 [place] [id number] [place] [address] 61113- 2279 28 Jul, 2017 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9 and BMI 45.0-49.9, adult Z68.42 [place] [id number] [place] [address] 43187- 8463 15 Jul, 2017 Back pain M54.9 [place] [id number] [place] [address] 77611- 3101 05 Jul, 2017 Back pain M54.9 [place] [id number] [place] [address] 99223- 1374 Jun, Back pain M54.9 [place] [id number] [place] [address] 81648- 9832 Jun, Back pain M54.9 [facility] [address] [address]7 May, Skin cancer of face C44.300 and BMI 45.0-49.9, adult Z68.42 [facility] [address] [id number] [address]- 4896 May, [facility] [id number] [place] [address] 71007- 0854 May, Back pain M54.9 [facility] [id number] [place] [address] 49071- 9712 May, Back pain M54.9 [facility] [id number] [place] [address] 58302- 1355 May, Back pain M54.9 [facility] [id number] [place] [address] 62189- 0611 Apr, Back pain M54.9 [facility] [id number] [place] [address] 04468- 4587 Apr, Back pain M54.9 [facility] [id number] [place] [address] 79161- 9680 Mar, Back pain M54.9 [facility] [id number] [place] [address] 95502- 6325 Mar, Anemia D64.9 ; Encounter for immunization Z23 ; Arthritis M19.90 and Right inguinal hernia K40.90 [facility] [id number] [place] [address] 47476- 9854 Mar, Back pain M54.9 [facility] [id number] [place] [address] 02179- 9676 22 Feb, 2017 Back pain M54.9 [facility] [id number] [place] [address] 44709- 4158 13 Feb, 2017 Back pain M54.9 [facility] [id number] [place] [address] 51458 2542 Jan, Back pain M54.9 [facility] [id number] [place] [address] 58878 2546 Jan, Back pain M54.9 [facility] [id number] [place] [address] 87502 2546 Jan, [facility] [id number] [place] [address] 07998 2546 Jan, Back pain M54.9 [facility] [id number] [place] [address] 57356 2546 Dec, Back pain M54.9 [facility] [id number] [place] [address] 49109 2546 Dec, Back pain M54.9 [facility] [id number] [place] [address] 79812 2546 Dec, [facility] [id number] [place] [address] 42827 2547 Nov, Hypokalemia E87.6 [facility] [id number] [place] [address] 87095 2546 Nov, Back pain M54.9 [facility] [id number] [place] [address] 66009 2546 Nov, [facility] [id number] [place] [address] 18749 2546 Nov, Arthritis M19.90 [facility] [id number] [place] [address] 53616 2546 Nov, Back pain M54.9 [facility] [id number] [place] [address] 73858 2546 Nov, Generalized edema R60.1 [facility] [id number] [place] [address] 16308 2546 Nov, Back pain M54.9 [facility] [id number] [place] [address] 64593- 6897 07 Nov, 2016 Pain in right knee M25.561 [place] [id number] [place] [address] 14250- 1850 05 Nov, 2016 Encounter for removal of sutures Z48.02 and Pain in right knee M25.561 [facility] [address] 80728 -5811 Nov, Abrasion of right foot, subsequent encounter S90.811D [facility] [place] [address] 42728 -6371 October, Toe abrasion, right, initial encounter S90.414A [place] [id number] [place] [address] 72656- 5257 October, [place] [address] 27610- 4120 October, Back pain M54.9 [place] [id number] [place] [address] 15321- 1420 October, Venous insufficiency I87.2 [place] [id number] [place] [address] 69697- 8294 October, Pain in right knee M25.561 [place] [id number] [place] [address] 12955- 0468 Sep, Back pain M54.9 [place] [id number] [place] [address] 28188- 8267 Sep, Venous insufficiency I87.2 [facility] [address] [id number] Sep, [facility] [id number] [place] [address] 69173 -9873 Sep, Leg edema, right R60.0 and Cellulitis of right lower extremity L03.115 [place] [id number] [place] [address] 85948- 7893 14 Sep, 2016 Pedal edema R60.0 [place] [address] 21842- 4104 04 Sep, 2016 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 ; Pain in right knee M25.561 and Arthritis M19.90 [place] [address] 19804- 3604 Aug, Back pain M54.9 [place] [address] 75153- 2516 Aug, Back pain M54.9 [place] [address] 84694- 2821 Aug, [place] [id number] [place] [address] 60260- 9647 Aug, Type 2 diabetes mellitus without complication E11.9 ; Restrictive lung disease J98.4 ; Arthritis M19.90 ; Back pain M54.9 ; Body mass index (BMI) of 45.0-49.9 in adult Z68.42 and Morbid (severe) obesity due to excess calories E66.01 [place] [id number] [place] [address] 24089- 9988 Aug, Back pain M54.9 [place] [id number] [place] [address] 24930- 3774 Aug, Back pain M54.9 [place] [id number] [place] [address] 78577- 4550 Jul, [place] [address] 87142- 4564 Jul, Back pain M54.9 [place] [id number] [place] [address] 65882- 4783 Jul, Back pain M54.9 [facility] [address] [place] [address]- 6932 Jun, Back pain M54.9 [facility] [id number] [place] [address] 71037- 5809 Jun, Back pain M54.9 [facility] [id number] [place] [address] 47250 2546 May, Back pain M54.9 [facility] [id number] [place] [address] 69256 2546 May, Back pain M54.9 [facility] [id number] [place] [address] 81275- 6206 May, Back pain M54.9 [facility] [id number] [place] [address] 41240- 0518 May, Back pain M54.9 [facility] [id number] [place] [address] 27519- 2686 May, [facility] [id number] [place] [address] 90395- 9026 May, Back pain M54.9 and Pain in right knee M25.561 [facility] [id number] [place] [address] 36398- 5775 Apr, [facility] [id number] [place] [address] 24525- 1444 Apr, Type 2 diabetes mellitus without complication E11.9 ; Pain in right knee M25.561 and Pain in left knee M25.562 [facility] [address] [id number] [address]- 6016 Mar, [facility] [id number] [place] [address] 84716- 2546 Mar, [facility] [id number] [place] [address] 84318- 6507 Mar, [facility] [id number] [place] [address] 34241- 4520 18 Mar, 2016 Restrictive lung disease J98.4 ; Anemia D64.9 and Cor pulmonale I27.81 [facility] [address] [facility] [id number] [address]- 1459 17 Mar, 2016 [facility] [address] [facility] [id number] [address]- 3222 14 Mar, 2016 [facility] [address] [facility] [id number] [place] [address] 62925- 4215 Mar, [facility] [address] [facility] [id number] [address]- 6636 30 Feb, 2016 [facility] [address] [facility] [id number] [place] [address] 46181- 9785 29 Feb, 2016 [facility] [id number] [place] [address] 38141- 0765 28 Feb, 2016 [facility] [id number] [place] [address] 08597- 0079 27 Feb, 2016 Restrictive lung disease J98.4 [facility] [address] [facility] [id number] [address]- 0972 23 Feb, 2016 [facility] [address] [facility] [id number] [address] -2229 Feb, [facility] [id number] [address]- 7498 16 Feb, 2016 [facility] [address] [facility] [id number] [place] [address]- 4480 Jan, [facility] [address] [facility] [id number] [place] [address]- 5833 Jan, [facility] [address] [facility] [id number] [place] [address]- 8784 Jan, [facility] [address] [id number] [address]- 5734 Jan, [facility] [address] [id number] [place] [address] 58639- 8524 Jan, Restrictive lung disease J98.4 ; Anemia D64.9 and Cor pulmonale I27.81 [facility] [id number] [place] [address] 09422- 6641 Dec, [facility] [id number] [place] [address] 75322- 2594 Dec, [facility] [id number] [place] [address] 47990- 3450 Nov, Arthritis M19.90 and Hypokalemia E87.6 [facility] [address] [place] [id number] [place] [address] 63023- 7452 Nov, Back pain M54.9 [facility] [address] [id number] [place] [address] 70383- 7503 October, Back pain M54.9 [facility] [address] [id number] [place] [address] 44914- 5722 October, Back pain M54.9 [facility] [address] [place] [id number] [place] [address] 61765- 2924 Sep, Scabies exposure Z20.89 [facility] [address] [place] [id number] [place] [address] 87923- 0370 Sep, Restrictive lung disease J98.4 [facility] [address] [place] [id number] [place] [address] 35063- 9309 Sep, Back pain M54.9 [facility] [id number] [place] [address] 11164- 7540 Sep, Restrictive lung disease J98.4 [facility] [address] [place] [id number] [place] [address] 57221- 9564 Aug, [facility] [id number] [place] [address] 95296- 8361 Aug, [facility] [id number] [address] 5640 Aug, [facility] [id number] [place] [address] 62733- 1813 Aug, [facility] [id number] [place] [address] 22093- 1760 Aug, Back pain M54.9 [facility] [id number] [place] [address] 21243- 1433 Jul, Anemia D64.9 and Prediabetes R73.09 [facility] [id number] [place] [address] 19008- 0539 Jul, Back pain M54.9 [facility] [id number] [place] [address] 10681- 6455 Jul, Back pain M54.9 [facility] [id number] [place] [address] 29345- 1580 Jul, [facility] [id number] [place] [address] 12128- 7708 05 Jul, 2015 Bronchitis J40 and Anemia D64.9 [facility] [id number] [place] [address] 39320- 9547 Jun, [facility] [id number] [place] [address] 71320- 9794 Jun, [facility] [id number] [place] [address] 39080- 8722 Jun, Bronchitis J40 and Anemia D64.9 [facility] [id number] [place] [address] 42787- 6803 Jun, [facility] [id number] [place] [address] 74421- 5922 Jun, Back pain M54.9 [facility] [id number] [place] [address] 95746- 2066 Jun, Anemia D64.9 [facility] [id number] [place] [address] 25116- 6980 Jun, Restrictive lung disease J98.4 ; Anemia D64.9 ; Hypothyroidism E03.9 ; Cor pulmonale I27.81 and Back pain M54.9 [facility] [id number] [place] [address] 49005- 9651 May, [facility] [address] 24742- 5559 Apr, Anemia D64.9 ; Encounter for immunization Z23 and Restrictive lung disease J98.4 [facility] [address] 13437- 7023 Apr, [facility] [id number] [place] [address] 58014- 9530 Mar, [facility] [address] 68509- 5358 Mar, Iron deficiency anemia D50.9 [facility] [id number] [place] [address] 99261- 5009 Mar, [facility] [id number] [place] [address] 49191- 6074 Mar, [facility] [id number] [place] [address] 10454- 7399 Mar, Anemia D64.9 [facility] [address] 51844- 0880 Mar, [facility] [id number] [place] [address] 41747- 5458 Mar, Anemia D64.9 [facility] [address] 56025- 7816 Mar, Restrictive lung disease J98.4 and Anemia D64.9 [facility] [id number] [place] [address] 13523- 2990 Mar, [facility] [id number] [place] [address] 10425- 2681 Mar, Anemia D64.9 [facility] [id number] [place] [address] 36553- 0862 Mar, Anemia D64.9 [facility] [id number] [place] [address] 75696- 8100 Mar, [facility] [id number] [place] [address] 68063- 1190 Mar, Diabetes mellitus E11.9 ; Bronchitis J40 and Anemia D64.9 [facility] [id number] [place] [address] 56220- 9684 Feb, [facility] [id number] [place] [address] 03722- 3965 Feb, [facility] [id number] [place] [address] 83580- 6462 Feb, [facility] [id number] [place] [address] 48360- 9702 Feb, [facility] [id number] [place] [address] 36027- 1582 Jan, [facility] [id number] [place] [address] 83367- 4296 Jan, [facility] [id number] [place] [address] 77226- 8876 Dec, Venous insufficiency 459.81 [facility] [id number] [place] [address] 99543- 0811 Dec, [facility] [id number] [place] [address] 07059- 9288 Dec, [facility] [id number] [place] [address] 50536- 2980 Dec, Coronary atherosclerosis of unspecified type of vessel, pitka's point or graft 414.00 ; Unspecified anemia 285.9 and Generalized osteoarthrosis , unspecified site 715.00 [facility] [address] [address] 3767 Nov, [facility] [id number] [place] [address] 39995- 2172 Nov, [facility] [id number] [place] [address] 23666- 1195 Nov, [facility] [id number] [place] [address] 95121- 9168 October, [facility] [id number] [place] [address] 72906- 7172 October, Acute bronchitis 466.0 and Shortness of breath 786.05 [facility] [id number] [place] [address] 64183- 8576 Sep, [facility] [id number] [place] [address] 05476- 0843 Sep, [facility] [id number] [place] [address] 88427- 8266 Aug, [facility] [id number] [place] [address] 94349- 3673 Aug, [facility] [address] [address]- 7021 Jul, [facility] [id number] [place] [address] 50407- 4051 Jul, [facility] [id number] [address] 1884 Jul, [facility] [id number] [place] [address] 52952- 1091 Jul, [facility] [address] [address]- 5489 Jun, [facility] [id number] [place] [address] 30910- 1512 Jun, [facility] [place] [facility] [address] [id number] [place] [address]- 0115 Jun, [facility] [place] [facility] [address] [id number] [place] 0384 Jun, [facility] [place] [facility] [address] [id number] [place] [address]- 1478 Jun, [facility] [place] [facility] [address] [id number] [place] [address]- 1964 Jun, [facility] [place] [facility] [address] [id number] [place] [address]- 3944 May, [facility] [place] [facility] [address] [id number] [place] [address]- 6855 May, [facility] [place] [facility] [address] [id number] [place] [address]- 4042 May, [facility] [place] [facility] [address] [id number] [place] [address]- 5193 May, [facility] [place] [facility] [address] [id number] [place] [address]- 3940 Apr, [facility] [place] [facility] [address] [id number] [place] [address]- 6028 Apr, [facility] [place] [facility] [address] [id number] [place] [address]- 3610 Apr, [facility] [place] [facility] [address] [id number] [place] [address]- 5371 Apr, [facility] [place] [facility] [address] [id number] [place] [address]- 5598 Apr, [facility] [place] [facility] [address] [id number] [place] [address]- 6894 Apr, [facility] [place] [facility] [address] [id number] [place] [address]- 8046 Mar, [facility] [place] [facility] [address] [id number] [place] [address]- 1775 Mar, [facility] [place] [facility] [address] [id number] [place] [address]- 1736 Mar, [facility] [place] [facility] [address] [id number] [place] 9852 Mar, [facility] [place] [facility] [address] [id number] [place] [address]- 7087 Mar, [facility] [place] [facility] [address] [id number] [place] [address]- 7579 Mar, [facility] [place] [facility] [address] [id number] [place] [address]- 4159 Mar, [facility] [place] [facility] [address] [id number] [place] [address]- 6459 Mar, [facility] [place] [facility] [address] [id number] [place] [address]- 4751 Feb, [facility] [place] [facility] [address] [id number] [place] [address]- 7255 Feb, [facility] [place] [facility] [address] [id number] [place] [address]- 5601 Jan, [facility] [place] [facility] [address] [id number] [place] [address]- 5739 Jan, [facility] [place] [facility] [address] [id number] [place] [address]- 2484 Jan, [facility] [place] [facility] [address] [id number] [place] [address]- 3544 Jan, [facility] [place] [facility] [address] [id number] [place] [address]- 7613 Jan, [facility] [place] [facility] [address] [id number] [place] [address]- 4812 Jan, [facility] [place] [facility] [address] [id number] [place] [address]- 4245 Dec, [facility] [place] [facility] [address] [id number] [place] [address]- 2430 Dec, [facility] [place] [facility] [address] [id number] [place] [address]- 1667 Dec, [facility] [place] [facility] [address] [id number] [place] [address]- 7463 Dec, [facility] [place] [facility] [address] [id number] [place] [address]- 9387 Nov, [facility] [place] [facility] [address] [id number] [place] [address]- 2685 Nov, [facility] [place] [facility] [address] [id number] [place] [address]- 1135 Nov, [facility] [place] [facility] [address] [id number] [place] [address]- 2864 Nov, [facility] [place] [facility] [address] [id number] [place] [address]- 5772 Nov, [facility] [place] [facility] [address] [id number] [place] [address]- 2001 Nov, [facility] [place] [facility] [address] [id number] [place] [address]- 2745 Nov, [facility] [place] [facility] [address] [id number] [place] [address]- 6924 Nov, [facility] [place] [facility] [address] [id number] [address]- 7289 Nov, [facility] [place] [facility] [address] [id number] [place] [address]- 4259 Nov, [facility] [place] [facility] [address] [id number] [place] [address]- 4488 Nov, [facility] [place] [facility] [address] [id number] [place] [address]- 5860 Nov, [facility] [place] [facility] [address] [id number] [address]- 0690 October, [facility] [address] [id number] [place] [address]- 9068 October, [facility] [place] [facility] [address] [id number] [place] [address]- 0331 October, [facility] [place] [facility] [address] [id number] [place] [address]- 5560 October, [facility] [place] [facility] [address] [id number] [place] [address]- 8159 October, [facility] [place] [facility] [address] [id number] [place] [address]- 8822 October, [facility] [place] [facility] [address] [id number] [place] [address]- 6231 October, [facility] [address] [id number] [place] [address]- 8131 October, [facility] [place] [facility] [address] [id number] [place] [address]- 2415 October, [facility] [place] [facility] [address] [id number] [place] [address]- 6852 Sep, [facility] [place] [facility] [address] [id number] [place] [address]- 8272 Sep, [facility] [place] [facility] [address] [id number] [place] [address]- 6228 Sep, [facility] [place] [facility] [address] [id number] [place] [address]- 5861 Sep, [facility] [place] [facility] [address] [id number] [place] [address]- 2231 Sep, [facility] [place] [facility] [address] [id number] [place] [address]- 6643 Sep, [facility] [place] [facility] [address] [id number] [place] [address]- 1465 Aug, [facility] [place] [facility] [address] [id number] [place] [address]- 2077 Aug, [facility] [place] [facility] [address] [id number] [place] [address]- 3402 Aug, [facility] [place] [facility] [address] [id number] [place] [address]- 2642 Aug, [facility] [place] [facility] [address] [id number] [place] [address]- 0065 Aug, [facility] [place] [facility] [address] [id number] [place] [address]- 6744 Aug, [facility] [place] [facility] [address] [id number] [place] [address]- 1333 Aug, [facility] [place] [facility] [address] [id number] [place] [address]- 5183 Aug, [facility] [place] [facility] [address] [id number] [place] [address]- 0025 Aug, [facility] [place] [facility] [address] [id number] [place] [address]- 7662 Aug, [facility] [place] [facility] [address] [id number] [place] [address]- 6179 Jul, [facility] [place] [facility] [address] [id number] [place] [address]- 6413 Jul, [facility] [place] [facility] [address] [id number] [place] [address]- 8017 Jun, [facility] [place] [facility] [address] [id number] [place] [address]- 6164 Jun, [facility] [place] [facility] [address] [id number] [place] [address]- 4319 Jun, [facility] [place] [facility] [address] [id number] [place] [address]- 1319 Jun, [facility] [place] [facility] [address] [id number] [place] [address]- 2934 Jun, [facility] [place] [facility] [address] [id number] [place] [address]- 9815 Jun, [facility] [place] [facility] [address] [id number] [place] [address]- 2885 Jun, [facility] [place] [facility] [address] [id number] [place] [address]- 2837 Jun, [facility] [place] [facility] [address] [id number] [place] [address]- 0575 May, [facility] [place] [facility] [address] [id number] [place] [address]- 6373 May, [facility] [place] [facility] [address] [id number] [place] [address]- 4853 May, [facility] [place] [facility] [address] [id number] [place] [address]- 1028 May, [facility] [place] [facility] [address] [id number] [place] [address]- 2878 May, [facility] [place] [facility] [address] [id number] [place] [address]- 0316 May, [facility] [place] [facility] [address] [id number] [place] [address]- 8955 May, [facility] [place] [facility] [address] [id number] [place] [address]- 3050 May, [facility] [place] [facility] [address] [id number] [place] [address]- 4423 May, [facility] [place] [facility] [address] [id number] [place] [address]- 4469 Apr, [facility] [place] [facility] [address] [id number] [place] [address]- 1166 Apr, [facility] [place] [facility] [address] [id number] [place] [address]- 2599 Apr, [facility] [place] [facility] [address] [id number] [place] [address]- 6393 Apr, 2012 [facility] [address] [id number] [place] [address]- 9259 30 Mar, 2012 [facility] [place] [facility] [address] [id number] [place] [address]- 6393 Mar, 2012 [facility] [place] [facility] [address] [id number] [place] [address]- 7284 Mar, 2012 [facility] [place] [facility] [address] [id number] [place] [address]- 6744 Mar, 2012 [facility] [place] [facility] [address] [id number] [place] [address]- 4756 Mar, 2012 [facility] [place] [facility] [address] [id number] [place] [address]- 7364 Mar, 2012 [facility] [place] [facility] [address] [id number] [place] [address]- 6662 Mar, 2012 [facility] [place] [facility] [address] [id number] [place] [address]- 5460 Mar, 2012 [facility] [place] [facility] [address] [id number] [place] [address]- 8206 Mar, 2012 [facility] [place] [facility] [address] [id number] [address]- 2320 Mar, 2012 [facility] [place] [facility] [address] [id number] [place] [address]- 7073 Mar, 2012 [facility] [place] [facility] [address] [id number] [place] [address]- 0918 Mar, 2012 [facility] [place] [facility] [address] [id number] [place] [address]- 0225 Mar, 2012 [facility] [place] [facility] [address] [id number] [place] [address]- 0307 Mar, 2012 [facility] [place] [facility] [address] [id number] [place] [address]- 3448 Mar, 2012 [facility] [place] [facility] [address] [id number] [place] [address]- 9362 18 Mar, 2012 [facility] [place] [facility] [address] [id number] [place] [address]- 3078 17 Mar, 2012 [facility] [place] [facility] [address] [id number] [place] [address]- 7392 17 Mar, 2012 [facility] [place] [facility] [address] [id number] [place] [address]- 6742 15 Mar, 2012 [facility] [place] [facility] [address] [id number] [place] [address]- 0638 15 Mar, 2012 [facility] [place] [facility] [address] [id number] [place] [address]- 3721 14 Mar, 2012 [facility] [place] [facility] [address] [id number] [place] [address]- 9206 14 Mar, 2012 [facility] [place] [facility] [address] [id number] [place] [address]- 7403 14 Mar, 2012 [facility] [place] [facility] [address] [id number] [place] [address]- 5904 14 Mar, 2012 [facility] [place] [facility] [address] [id number] [address]- 0689 12 Mar, 2012 [facility] [place] [facility] [address] [id number] [address]- 8915 11 Mar, 2012 [facility] [place] [facility] [address] [id number] [place] [address]- 0709 11 Mar, 2012 [facility] [place] [facility] [address] [id number] [address]- 9514 10 Mar, 2012 [facility] [place] [facility] [address] [id number] [place] [address]- 2352 10 Mar, 2012 [facility] [place] [facility] [address] [id number] [place] [address]- 1958 10 Mar, 2012 [facility] [place] [facility] [address] [id number] [address]- 1183 Mar, [facility] [place] [facility] [address] [id number] [place] [address]- 7355 Mar, [facility] [place] [facility] [address] [id number] [place] [address]- 4437 Mar, [facility] [place] [facility] [address] [id number] [place] [address]- 2496 Feb, [facility] [place] [facility] [address] [id number] [place] [address]- 5800 Feb, [facility] [place] [facility] [address] [id number] [place] [address]- 9081 Feb, [facility] [place] [facility] [address] [id number] [place] [address]- 1000 Feb, [facility] [place] [facility] [address] [id number] [place] [address]- 2457 Jan, [facility] [place] [facility] [address] [id number] [place] [address]- 1717 Jan, [facility] [place] [facility] [address] [id number] [place] [address]- 3287 Jan, [facility] [place] [facility] [address] [id number] [place] [address]- 4758 Jan, [facility] [place] [facility] [address] [id number] [place] [address]- 8357 Jan, [facility] [place] [facility] [address] [id number] [place] [address]- 4880 Jan, [facility] [place] [facility] [address] [id number] [place] [address]- 4639 Dec, [facility] [place] [facility] [address] [id number] [place] [address]- 9873 Dec, [facility] [place] [facility] [address] [id number] [place] [address]- 7034 Dec, [facility] [place] [facility] [address] [id number] [place] [address]- 3451 Dec, [facility] [address] [id number] [place] [address]- 9327 Dec, [facility] [address] [id number] [place] [address]- 5156 Dec, [facility] [address] [id number] [place] [address]- 6563 Dec, [facility] [address] [id number] [place] [address]- 2346 Dec, [facility] [address] [id number] [place] [address]- 8875 Dec, [facility] [address] [id number] [place] [address]- 9373 Dec, [facility] [address] [id number] [place] [address]- 0207 Dec, [facility] [address] [id number] [place] [address]- 1568 October, [facility] [address] [id number] [place] [address]- 4674 October, [facility] [address] [id number] [place] [address]- 4243 October, [facility] [address] [id number] [place] [address]- 9234 October, [facility] [address] [id number] [place] [address]- 7741 Sep, [facility] [place] [facility] [address] [id number] [place] [address]- 5066 Sep, [facility] [place] [facility] [address] [id number] [place] [address]- 6162 Sep, [facility] [place] [facility] [address] [id number] [place] [address]- 7541 Sep, [facility] [id number] [address]- 3441 Sep, [facility] [id number] [address]- 3825 Sep, [facility] [id number] [address]- 0966 Sep, [facility] [id number] [address]- 2365 Sep, [facility] [id number] [address]- 8032 Sep, [facility] [id number] [place] [id number] Sep, [facility] [id number] [address] Sep, IMMUNIZATIONS No Known Immunizations SOCIAL HISTORY Never Assessed REASON FOR VISIT f/u ER leg swelling - rt leg [facility] , vera lift - going numb even elevated x1 1/2 weeks after last appt with dr orquidea Srinivasan mA , A1C done in visit [facility] PLAN OF CARE Activity Details Follow Up 4 Weeks Reason: VITAL SIGNS Height 62 in 2018-04-21 Temperature 97.2 degrees Fahrenheit 2018-04-21 Heart Rate 48 bpm 2018-04-21 Respiratory Rate 20 2018-04-21 Blood pressure systolic 118 mmHg 2018-04-21 Blood pressure diastolic 54 mmHg 2018-04-21 MEDICATIONS Medication Instructions Dosage Frequency Start Date End Date Duration Status Synthroid 200 MCG TAKE 1 TABLET (175 MCG) BY ORAL ROUTE ONCE DAILY Active Imdur 30 MG Orally Once a day 1 tablet 24h Active Lasix 80 MG Orally Once a day 1 tablet 24h Dec, Active Flexeril 10 mg take 1 tablet (10 mg) by oral route 3 times per day PRN pain Jan, Active ProAir HFA 108 (90 Base) MCG/ACT Inhalation every 6 hrs 2 puffs as needed 6h Nov, Active Percocet 7.5-325 MG Orally 4 times a day 1 tablet 6h Apr, 28 days Active Lipitor 80 MG Orally Once a day 1 tablet 24h Active Hospital Bed as directed Mar, Active Gabapentin 300 MG Orally 3 times a day 1 capsule 8h Apr, 14 days Active Lomotil 2.5-0.025 MG Orally Four times a day 1 tablet as needed 6h Dec, Active Fentanyl 75 MCG/HR Transdermal once every 3 days. 1 patch to skin Apr Active Omeprazole 40 MG Orally Once a day 1 capsule 24h Active Wheelchair - to use for mobility daily Bariatric 24h Aug, Active Aspirin 81 mg take 1 tablet (81 mg) by oral route once daily Sep, Active Wheelchair - use heavy duty wheel chair for mobility 24h Nov, Active Glucophage 500 MG 1 TABLET BY ORAL ROUTE 1 TIME PER DAY WITH MEALS TWICE DAILY. Active Latanoprost 0.005 % Ophthalmic Once a day 1 drop into affected eye in the evening 24h Active Potassium Chloride Angie ER 20 meq Orally Twice a day 1 tablet 12h Active Toprol XL 25 mg 0.5 Tablet by Oral route 1 time per day Nov, Active RESULTS Name Result Date Reference Range A1C (IN HOUSE) 2018-04-21 A1C IN HOUSE 5.7 4.3 - 5.6 % Previous A1c 5.5 Lot [id number] Exp date 08/2019 PROCEDURES Procedure Date Ordered Result Body Site GLYCATED HEMOGLOBIN TEST Apr 21, 2018 INSTRUCTIONS MEDICATIONS ADMINISTERED No Known Medications [...]
--- OUTSIDE RECORDS SUMMARY | 2018-07-12 08:04 | XMS REPORT ---
Author Author JAN HERNANDEZ [facility] Address [address] [place] [address] Care Team Providers Care Infrastructure Administrator Name Role Phone JAN HERNANDEZ Unavailable PROBLEMS Type Condition ICD9-CM Code [id number] Code Onset Dates Condition Status SNOMED Code Problem Prediabetes R73.09 Active 4071791 Problem Hypokalemia E87.6 Active 88123214 Problem Arthritis M19.90 Active 9172774 Problem Neuropathy G62.9 Active 537632371 Problem Obesity hypoventilation syndrome E66.2 Active 473823290 Problem 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 Active 437052847 Problem Body mass index (BMI) of 45.0-49.9 in adult Z68.42 Active 568276169 Problem Coronary artery disease involving yankton coronary artery 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 [id number], [place] [address] May, [facility] [address] [id number], [place] [address] Apr, Neuropathy G62.9 and Prediabetes R73.09 [facility] [address] [id number], [place] [address] Apr, [facility] [id number], [place] [address] Apr, [facility] [id number] [place] [address] 96700- 5883 Apr, [facility] [id number] [place] [address] 03562 -1533 Apr, Swelling of right lower extremity M79.89 [facility] [address] 11294- 7319 Apr, [facility] [id number] [place] [address] 44586- 7072 Mar, Bronchitis J40 [facility] [id number] [place] [address] 81221- 3655 Mar, [facility] [id number] [place] [address] 63309- 5318 Mar, 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 ; Encounter for immunization Z23 and Arthritis M19.90 [facility] [id number] [place] [address] 60995- 3232 Mar, Arthritis M19.90 and Back pain M54.9 [facility] [id number] [place] [address] 93048- 9029 Mar, [facility] [id number] [place] [address] 33217- 8760 Mar, [facility] [id number] [place] [address] 48656- 7732 Feb, Arthritis M19.90 [facility] [id number] [place] [address] 52088- 5234 Jan, Arthritis M19.90 [facility] [id number] [place] [address] 62773- 7994 Jan, Back pain M54.9 and Arthritis M19.90 [facility] [id number] [place] [address] 55663- 7390 Jan, [facility] [address] [facility] [id number], [place] [address] 1675 Jan, Back pain M54.9 [facility] [address] [facility] [id number] [place] [address] 02334- 2249 Jan, Arthritis M19.90 [facility] [id number] [place] [address] 43806- 0005 Jan, Back pain M54.9 [facility] [address] [facility] [id number] [place] [address] 76751- 9927 Jan, [facility] [address] [facility] [id number] [place] [address] 57175- 3652 Jan, Back pain M54.9 [facility] [id number] [place] [address] 83373- 7027 Dec, Ingrowing nail with infection L60.0 and Onychomycosis B35.1 [facility] [address] [facility] [id number] [place] [address] 56004- 6317 Dec, Arthritis M19.90 [facility] [address] [facility] [id number] [place] [address] 80881- 8895 Dec, Ingrowing nail L60.0 [facility] [address] [id number], [place] [address] 5566 Dec, Back pain M54.9 [facility] [address] [facility] [id number], [place] [address] Dec, [facility] [address] [facility] [id number] [place] [address] 41149- 4381 Dec, Back pain M54.9 [facility] [id number] [place] [address] 91775- 9700 Nov, Arthritis M19.90 [facility] [id number] [place] [address] 68476- 4998 Nov, [facility] [id number] [place] [address] 19231- 6259 Nov, Arthritis M19.90 ; Anemia D64.9 ; Restrictive lung disease J98.4 ; Weakness R53.1 and BMI 50.0-59.9, adult Z68.43 [facility] [id number] [place] [address] 56072- 3504 Nov, Arthritis M19.90 [place] [address] 57364- 4975 Nov, Back pain M54.9 [place] [address] 57099- 9867 October, Back pain M54.9 [place] [id number] [place] [address] 79938- 9526 October, Back pain M54.9 [place] [id number] [place] [address] 02787- 7937 Sep, Back pain M54.9 [facility] [id number] [place] [address] 50071- 1736 Sep, Back pain M54.9 [facility] [id number] [place] [address] 84631 -7930 Sep, [facility] [id number] [place] [address] 49438 -9739 Sep, [facility] [id number] [place] [address] 95095 -4894 Sep, Swelling of right lower extremity M79.89 and Cellulitis of right lower extremity L03.115 [place] [id number] [place] [address] 59154- 0039 Aug, Back pain M54.9 [facility] [id number] [place] [address] 94283- 8599 Aug, Back pain M54.9 [place] [id number] [place] [address] 27913- 1470 Aug, [place] [id number] [place] [address] 85448- 8709 Aug, Cellulitis of right lower extremity L03.115 ; Ventral hernia without obstruction or gangrene K43.9 and BMI 50.0-59.9, adult Z68.43 [place] [id number] [place] [address] 96313- 9538 28 Jul, 2017 Back pain M54.9 [place] [id number] [place] [address] 99997- 4797 28 Jul, 2017 [employer] (current) 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 Z79.891 ; Arthritis M19.90 ; Back pain M54.9 ; Prediabetes R73.09 ; Hypothyroidism E03.9 ; Coronary artery disease involving yankton coronary artery of yankton heart without angina pectoris I25.10 and Anemia D64.9 [place] [id number] [place] [address] 71820- 9272 27 Jul, 2017 [employer] (current) 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 Z79.891 ; Back pain M54.9 ; Arthritis M19.90 ; Prediabetes R73.09 ; Hypothyroidism E03.9 ; Coronary artery disease involving yankton coronary artery of yankton heart without angina pectoris I25.10 ; Anemia D64.9 and BMI 45.0-49.9, adult Z68.42 [place] [id number] [place] [address] 50232- 1722 15 Jul, 2017 Back pain M54.9 [place] [id number] [place] [address] 47886- 5248 05 Jul, 2017 Back pain M54.9 [place] [id number] [place] [address] 25013- 0021 Jun, Back pain M54.9 [place] [id number] [place] [address] 22505- 5672 Jun, Back pain M54.9 [facility] [id number], [place] [address] May, Skin cancer of face C44.300 and BMI 45.0-49.9, adult Z68.42 [facility] [address] [id number], [place] [address]- 3786 May, [facility] [id number] [place] [address] 44833- 7411 May, Back pain M54.9 [facility] [id number] [place] [address] 25067- 5455 May, Back pain M54.9 [facility] [id number] [place] [address] 68054- 2939 May, Back pain M54.9 [facility] [id number] [place] [address] 20788- 0564 Apr, Back pain M54.9 [facility] [id number] [place] [address] 51446- 2877 Apr, Back pain M54.9 [facility] [id number] [place] [address] 83511- 1656 Mar, Back pain M54.9 [facility] [id number] [place] [address] 04956- 2611 Mar, Anemia D64.9 ; Encounter for immunization Z23 ; Arthritis M19.90 and Right inguinal hernia K40.90 [facility] [id number] [place] [address] 95421- 9962 Mar, Back pain M54.9 [facility] [id number] [place] [address] 06905- 8966 22 Feb, 2017 Back pain M54.9 [facility] [id number] [place] [address] 27026- 4185 13 Feb, 2017 Back pain M54.9 [facility] [id number] [place] [address] 80930 2547 Jan, Back pain M54.9 [facility] [id number] [place] [address] 71896 2546 Jan, Back pain M54.9 [facility] [id number] [place] [address] 30196 2546 Jan, [facility] [id number] [place] [address] 14929 2546 Jan, Back pain M54.9 [facility] [id number] [place] [address] 85019 2546 Dec, Back pain M54.9 [facility] [id number] [place] [address] 63341 2546 Dec, Back pain M54.9 [facility] [id number] [place] [address] 62292 2546 Dec, [facility] [id number] [place] [address] 63390 254 Nov, Hypokalemia E87.6 [facility] [id number] [place] [address] 97257 2546 Nov, Back pain M54.9 [facility] [id number] [place] [address] 68946 2546 Nov, [facility] [id number] [place] [address] 80203 2546 Nov, Arthritis M19.90 [facility] [id number] [place] [address] 71707 2546 Nov, Back pain M54.9 [facility] [id number] [place] [address] 54122 2546 Nov, Generalized edema R60.1 [facility] [id number] [place] [address] 24448 2546 Nov, Back pain M54.9 [facility] [id number] [place] [address] 07845- 6068 07 Nov, 2016 Pain in right knee M25.561 [place] [id number] [place] [address] 48414- 8982 05 Nov, 2016 Encounter for removal of sutures Z48.02 and Pain in right knee M25.561 [facility] [address] 85302 -7325 Nov, Abrasion of right foot, subsequent encounter S90.811D [facility] [place] [address] 37007 -1479 October, Toe abrasion, right, initial encounter S90.414A [place] [id number] [place] [address] 94684- 8590 October, [place] [address] 74024- 1788 October, Back pain M54.9 [place] [id number] [place] [address] 14130- 6881 October, Venous insufficiency I87.2 [place] [id number] [place] [address] 21324- 8112 October, Pain in right knee M25.561 [place] [id number] [place] [address] 62468- 9319 Sep, Back pain M54.9 [place] [id number] [place] [address] 40090- 0953 Sep, Venous insufficiency I87.2 [facility] [address] [id number] Sep, [facility] [id number] [place] [address] 89895 -1308 Sep, Leg edema, right R60.0 and Cellulitis of right lower extremity L03.115 [place] [id number] [place] [address] 53483- 4458 14 Sep, 2016 Pedal edema R60.0 [place] [address] 04042- 7953 04 Sep, 2016 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 ; Pain in right knee M25.561 and Arthritis M19.90 [place] [address] 19440- 2560 Aug, Back pain M54.9 [place] [address] 51774- 8020 Aug, Back pain M54.9 [place] [address] 27360- 2692 Aug, [place] [id number] [place] [address] 86125- 4143 Aug, Type 2 diabetes mellitus without complication E11.9 ; Restrictive lung disease J98.4 ; Arthritis M19.90 ; Back pain M54.9 ; Body mass index (BMI) of 45.0-49.9 in adult Z68.42 and Morbid (severe) obesity due to excess calories E66.01 [place] [id number] [place] [address] 49344- 5373 Aug, Back pain M54.9 [place] [id number] [place] [address] 83855- 4455 Aug, Back pain M54.9 [place] [id number] [place] [address] 44815- 2785 Jul, [place] [address] 30514- 0316 Jul, Back pain M54.9 [place] [id number] [place] [address] 95878- 6549 Jul, Back pain M54.9 [facility] [address] [place] [address]- 1087 Jun, Back pain M54.9 [facility] [id number] [place] [address] 75481- 9939 Jun, Back pain M54.9 [facility] [id number] [place] [address] 74941 2546 May, Back pain M54.9 [facility] [id number] [place] [address] 56832 2546 May, Back pain M54.9 [facility] [id number] [place] [address] 22071- 4086 May, Back pain M54.9 [facility] [id number] [place] [address] 17985- 1307 May, Back pain M54.9 [facility] [id number] [place] [address] 39650- 8516 May, [facility] [id number] [place] [address] 79359- 1838 May, Back pain M54.9 and Pain in right knee M25.561 [facility] [id number] [place] [address] 04965- 3029 Apr, [facility] [id number] [place] [address] 98651- 1543 Apr, Type 2 diabetes mellitus without complication E11.9 ; Pain in right knee M25.561 and Pain in left knee M25.562 [facility] [address] [id number] [address]- 6736 Mar, [facility] [id number] [place] [address] 84563- 2546 Mar, [facility] [id number] [place] [address] 86117- 7438 Mar, [facility] [id number] [place] [address] 79669- 9493 18 Mar, 2016 Restrictive lung disease J98.4 ; Anemia D64.9 and Cor pulmonale I27.81 [facility] [address] [facility] [id number], [place] [address]- 2827 17 Mar, 2016 [facility] [address] [facility] [id number], [place] [address]- 8794 14 Mar, 2016 [facility] [address] [facility] [id number] [place] [address] 86065- 8482 Mar, [facility] [address] [facility] [id number], [place] [address]- 6030 30 Feb, 2016 [facility] [address] [facility] [id number] [place] [address] 51541- 2086 29 Feb, 2016 [facility] [id number] [place] [address] 66814- 2470 28 Feb, 2016 [facility] [id number] [place] [address] 23928- 4870 27 Feb, 2016 Restrictive lung disease J98.4 [facility] [address] [facility] [id number], [place] [address]- 5730 23 Feb, 2016 [facility] [address] [facility] [id number], [place] [address] -2278 Feb, [facility] [id number], [place] [address]- 9159 16 Feb, 2016 [facility] [address] [facility] [id number], [place] [address]- 5387 Jan, [facility] [address] [facility] [id number], [place] [address]- 3215 Jan, [facility] [address] [facility] [id number], [place] [address]- 6649 Jan, [facility] [id number], [place] [address]- 5377 Jan, [facility] [id number] [place] [address] 43561- 3338 Jan, Restrictive lung disease J98.4 ; Anemia D64.9 and Cor pulmonale I27.81 [facility] [id number] [place] [address] 62035- 1143 Dec, [facility] [id number] [place] [address] 76430- 7835 Dec, [facility] [id number] [place] [address] 92764- 1142 Nov, Arthritis M19.90 and Hypokalemia E87.6 [facility] [id number] [place] [address] 86755- 5549 Nov, Back pain M54.9 [facility] [id number] [place] [address] 40249- 1227 October, Back pain M54.9 [facility] [id number] [place] [address] 73037- 6298 October, Back pain M54.9 [facility] [id number] [place] [address] 30976- 8443 Sep, Scabies exposure Z20.89 [facility] [id number] [place] [address] 35977- 5700 Sep, Restrictive lung disease J98.4 [facility] [id number] [place] [address] 59349- 2716 Sep, Back pain M54.9 [facility] [id number] [place] [address] 86482- 8340 Sep, Restrictive lung disease J98.4 [facility] [id number] [place] [address] 97664- 0921 Aug, [facility] [id number] [place] [address] 08264- 4312 Aug, [facility] [address] [id number] [address]- 5155 Aug, [facility] [id number] [place] [address] 69992- 4679 Aug, [facility] [id number] [place] [address] 40771- 4305 Aug, Back pain M54.9 [facility] [id number] [place] [address] 88565- 4060 Jul, Anemia D64.9 and Prediabetes R73.09 [facility] [id number] [place] [address] 69446- 0143 Jul, Back pain M54.9 [facility] [id number] [place] [address] 98128- 7787 Jul, Back pain M54.9 [facility] [id number] [place] [address] 60403- 9023 Jul, [facility] [id number] [place] [address] 64075- 9916 05 Jul, 2015 Bronchitis J40 and Anemia D64.9 [facility] [id number] [place] [address] 10805- 6634 Jun, [facility] [id number] [place] [address] 12234- 2482 Jun, [facility] [id number] [place] [address] 42687- 2667 Jun, Bronchitis J40 and Anemia D64.9 [facility] [id number] [place] [address] 20807- 2659 Jun, [facility] [id number] [place] [address] 66624- 6024 Jun, Back pain M54.9 [facility] [id number] [place] [address] 79998- 1900 Jun, Anemia D64.9 [facility] [id number] [place] [address] 55782- 9589 Jun, Restrictive lung disease J98.4 ; Anemia D64.9 ; Hypothyroidism E03.9 ; Cor pulmonale I27.81 and Back pain M54.9 [facility] [id number] [place] [address] 47625- 5884 May, [facility] [address] 70734- 8184 Apr, Anemia D64.9 ; Encounter for immunization Z23 and Restrictive lung disease J98.4 [facility] [address] 11947- 9877 Apr, [facility] [id number] [place] [address] 24735- 5994 Mar, [facility] [address] 86819- 1743 Mar, Iron deficiency anemia D50.9 [facility] [id number] [place] [address] 63849- 1568 Mar, [facility] [id number] [place] [address] 81593- 4417 Mar, [facility] [id number] [place] [address] 62772- 4014 Mar, Anemia D64.9 [facility] [address] 65178- 7739 Mar, [facility] [id number] [place] [address] 53486- 4136 Mar, Anemia D64.9 [facility] [address] 27297- 5448 Mar, Restrictive lung disease J98.4 and Anemia D64.9 [facility] [id number] [place] [address] 90527- 8945 Mar, [facility] [id number] [place] [address] 00772- 3100 Mar, Anemia D64.9 [facility] [id number] [place] [address] 81652- 1859 Mar, Anemia D64.9 [facility] [id number] [place] [address] 55288- 3633 Mar, [facility] [id number] [place] [address] 98698- 3751 Mar, Diabetes mellitus E11.9 ; Bronchitis J40 and Anemia D64.9 [facility] [id number] [place] [address] 96786- 0296 Feb, [facility] [id number] [place] [address] 35106- 1882 Feb, [facility] [id number] [place] [address] 66539- 1215 Feb, [facility] [id number] [place] [address] 40033- 3375 Feb, [facility] [id number] [place] [address] 54180- 4120 Jan, [facility] [id number] [place] [address] 92573- 8757 Jan, [facility] [id number] [place] [address] 51585- 1972 Dec, Venous insufficiency 459.81 [facility] [id number] [place] [address] 67068- 4588 Dec, [facility] [id number] [place] [address] 87973- 4443 Dec, [facility] [id number] [place] [address] 79838- 9917 Dec, Coronary atherosclerosis of unspecified type of vessel, [place] or graft 414.00 ; Unspecified anemia 285.9 and Generalized osteoarthrosis , unspecified site 715.00 [facility] [id number] [address] Nov, [facility] [id number] [place] [address] 28711- 3305 Nov, [facility] [id number] [place] [address] 68303- 7922 Nov, [facility] [id number] [place] [address] 06025- 7257 October, [facility] [address] [id number] [place] [address]01- 7788 October, Acute bronchitis 466.0 and Shortness of breath 786.05 [facility] [id number] [place] [address] 12220- 0694 Sep, [facility] [id number] [place] [address] 30017- 1423 Sep, [facility] [id number] [place] [address] 28560- 0902 Aug, [facility] [id number] [place] [address] 28296- 6090 Aug, [facility] [id number] [address] 0495 Jul, [facility] [id number] [place] [address] 80678- 7512 Jul, [facility] [id number] [address] 2998 Jul, [facility] [id number] [place] [address] 45884- 7033 Jul, [facility] [id number] [address] 8413 Jun, [facility] [id number] [place] [address] 51833- 3682 Jun, [facility] [place] [facility] [address] [id number] [place] [address]- 2856 Jun, [facility] [place] [facility] [address] [id number] [place] [address]89 Jun, [facility] [place] [facility] [address] [id number] [place] [address]- 4635 Jun, [facility] [place] [facility] [address] [id number] [place] [address]- 8706 Jun, [facility] [place] [facility] [address] [id number] [place] [address]- 3737 May, [facility] [place] [facility] [address] [id number] [place] [address]- 8576 May, [facility] [place] [facility] [address] [id number] [place] [address]- 7773 May, [facility] [place] [facility] [address] [id number] [place] [address]- 6599 May, [facility] [place] [facility] [address] [id number] [place] [address]- 1955 Apr, [facility] [place] [facility] [address] [id number] [place] [address]- 7958 Apr, [facility] [place] [facility] [address] [id number] [place] [address]- 7928 Apr, [facility] [place] [facility] [address] [id number] [place] [address]- 4338 Apr, [facility] [place] [facility] [address] [id number] [place] [address]- 0638 Apr, [facility] [place] [facility] [address] [id number] [place] [address]- 5630 Apr, [facility] [place] [facility] [address] [id number] [place] [address]- 3330 Mar, [facility] [place] [facility] [address] [id number] [place] [address]- 8446 Mar, [facility] [place] [facility] [address] [id number] [place] [address]- 5781 Mar, [facility] [place] [facility] [address] [id number] [place] 9929 Mar, [facility] [place] [facility] [address] [id number] [place] [address]- 1753 Mar, [facility] [place] [facility] [address] [id number] [place] [address]- 7650 Mar, [facility] [place] [facility] [address] [id number] [place] [address]- 0906 Mar, [facility] [place] [facility] [address] [id number] [place] [address]- 8168 Mar, [facility] [place] [facility] [address] [id number] [place] [address]- 8759 Feb, [facility] [place] [facility] [address] [id number] [place] [address]- 3507 Feb, [facility] [place] [facility] [address] [id number] [place] [address]- 5465 Jan, [facility] [place] [facility] [address] [id number] [place] [address]- 3796 Jan, [facility] [place] [facility] [address] [id number] [place] [address]- 6451 Jan, [facility] [place] [facility] [address] [id number] [place] [address]- 6213 Jan, [facility] [place] [facility] [address] [id number] [place] [address]- 7373 Jan, [facility] [place] [facility] [address] [id number] [place] [address]- 6924 Jan, [facility] [place] [facility] [address] [id number] [place] [address]- 2002 Dec, [facility] [place] [facility] [address] [id number] [place] [address]- 4524 Dec, [facility] [place] [facility] [address] [id number] [place] [address]- 4897 Dec, [facility] [place] [facility] [address] [id number] [place] [address]- 1017 Dec, [facility] [place] [facility] [address] [id number] [place] [address]- 5548 Nov, [facility] [place] [facility] [address] [id number] [place] [address]- 3571 Nov, [facility] [place] [facility] [address] [id number] [place] [address]- 2695 Nov, [facility] [place] [facility] [address] [id number] [place] [address]- 5427 Nov, [facility] [place] [facility] [address] [id number] [place] [address]- 9490 Nov, [facility] [place] [facility] [address] [id number] [place] [address]- 1971 Nov, [facility] [place] [facility] [address] [id number] [place] [address]- 5662 Nov, [facility] [place] [facility] [address] [id number] [place] [address]- 0044 Nov, [facility] [place] [facility] [address] [id number] [address]- 4060 Nov, [facility] [place] [facility] [address] [id number] [place] [address]- 0498 Nov, [facility] [place] [facility] [address] [id number] [place] [address]- 0957 Nov, [facility] [place] [facility] [address] [id number] [place] [address]- 0556 Nov, [facility] [place] [facility] [address] [id number], [place] [address]- 4165 October, [facility] [address] [id number] [place] [address]- 5151 October, [facility] [place] [facility] [address] [id number] [place] [address]- 2077 October, [facility] [place] [facility] [address] [id number] [place] [address]- 9751 October, [facility] [place] [facility] [address] [id number] [place] [address]- 2437 October, [facility] [place] [facility] [address] [id number] [place] [address]- 4394 October, [facility] [place] [facility] [address] [id number] [place] [address]- 7683 October, [facility] [address] [id number] [place] [address]- 7467 October, [facility] [place] [facility] [address] [id number] [place] [address]- 4007 October, [facility] [place] [facility] [address] [id number] [place] [address]- 5551 Sep, [facility] [place] [facility] [address] [id number] [place] [address]- 2599 Sep, [facility] [place] [facility] [address] [id number] [place] [address]- 6987 Sep, [facility] [place] [facility] [address] [id number] [place] [address]- 0000 Sep, [facility] [place] [facility] [address] [id number] [place] [address]- 0983 Sep, [facility] [place] [facility] [address] [id number] [place] [address]- 7887 Sep, [facility] [place] [facility] [address] [id number] [place] [address]- 7854 Aug, [facility] [place] [facility] [address] [id number] [place] [address]- 9704 Aug, [facility] [place] [facility] [address] [id number] [place] [address]- 9303 Aug, [facility] [place] [facility] [address] [id number] [place] [address]- 5457 Aug, [facility] [place] [facility] [address] [id number] [place] [address]- 3678 Aug, [facility] [place] [facility] [address] [id number] [place] [address]- 2324 Aug, [facility] [place] [facility] [address] [id number] [place] [address]- 1285 Aug, [facility] [place] [facility] [address] [id number] [place] [address]- 7356 Aug, [facility] [place] [facility] [address] [id number] [place] [address]- 6418 Aug, [facility] [place] [facility] [address] [id number] [place] [address]- 2817 Aug, [facility] [place] [facility] [address] [id number] [place] [address]- 1216 Jul, [facility] [place] [facility] [address] [id number] [place] [address]- 7973 Jul, [facility] [place] [facility] [address] [id number] [place] [address]- 0781 Jun, [facility] [place] [facility] [address] [id number] [place] [address]- 1175 Jun, [facility] [place] [facility] [address] [id number] [place] [address]- 3494 Jun, [facility] [place] [facility] [address] [id number] [place] [address]- 8176 Jun, [facility] [place] [facility] [address] [id number] [place] [address]- 3531 Jun, [facility] [place] [facility] [address] [id number] [place] [address]- 5549 Jun, [facility] [place] [facility] [address] [id number] [place] [address]- 3876 Jun, [facility] [place] [facility] [address] [id number] [place] [address]- 5734 Jun, [facility] [place] [facility] [address] [id number] [place] [address]- 3488 May, [facility] [place] [facility] [address] [id number] [place] [address]- 7266 May, [facility] [place] [facility] [address] [id number] [place] [address]- 3473 May, [facility] [place] [facility] [address] [id number] [place] [address]- 2147 May, [facility] [place] [facility] [address] [id number] [place] [address]- 8487 May, [facility] [place] [facility] [address] [id number] [place] [address]- 7263 May, [facility] [place] [facility] [address] [id number] [place] [address]- 1005 May, [facility] [place] [facility] [address] [id number] [place] [address]- 7049 May, [facility] [place] [facility] [address] [id number] [place] [address]- 7207 May, [facility] [place] [facility] [address] [id number] [place] [address]- 0460 Apr, [facility] [place] [facility] [address] [id number] [place] [address]- 8790 Apr, [facility] [place] [facility] [address] [id number] [place] [address]- 0794 Apr, [facility] [place] [facility] [address] [id number] [place] [address]- 4636 Apr, 2012 [facility] [address] [id number] [place] [address]- 2783 30 Mar, 2012 [facility] [place] [facility] [address] [id number] [place] [address]- 1235 Mar, 2012 [facility] [place] [facility] [address] [id number] [place] [address]- 6456 Mar, 2012 [facility] [place] [facility] [address] [id number] [place] [address]- 1529 Mar, 2012 [facility] [place] [facility] [address] [id number] [place] [address]- 8995 Mar, 2012 [facility] [place] [facility] [address] [id number] [place] [address]- 4837 Mar, 2012 [facility] [place] [facility] [address] [id number] [place] [address]- 9372 Mar, 2012 [facility] [place] [facility] [address] [id number] [place] [address]- 8153 Mar, 2012 [facility] [place] [facility] [address] [id number] [place] [address]- 4690 Mar, 2012 [facility] [place] [facility] [address] [id number], [place] [address]- 9039 Mar, 2012 [facility] [place] [facility] [address] [id number] [place] [address]- 9579 Mar, 2012 [facility] [place] [facility] [address] [id number], [place] [address]- 2984 Mar, 2012 [facility] [place] [facility] [address] [id number] [place] [address]- 2298 Mar, 2012 [facility] [place] [facility] [address] [id number] [place] [address]- 9385 Mar, 2012 [facility] [place] [facility] [address] [id number] [place] [address]- 7838 Mar, 2012 [facility] [place] [facility] [address] [id number] [place] [address]- 4086 18 Mar, 2012 [facility] [place] [facility] [address] [id number] [place] [address]- 5296 17 Mar, 2012 [facility] [place] [facility] [address] [id number] [place] [address]- 4510 17 Mar, 2012 [facility] [place] [facility] [address] [id number] [place] [address]- 0649 15 Mar, 2012 [facility] [place] [facility] [address] [id number] [place] [address]- 3966 15 Mar, 2012 [facility] [place] [facility] [address] [id number] [place] [address]- 8820 14 Mar, 2012 [facility] [place] [facility] [address] [id number] [place] [address]- 8367 14 Mar, 2012 [facility] [place] [facility] [address] [id number] [place] [address]- 5480 14 Mar, 2012 [facility] [place] [facility] [address] [id number] [place] [address]- 0186 14 Mar, 2012 [facility] [place] [facility] [address] [id number], [place] [address]- 6920 12 Mar, 2012 [facility] [place] [facility] [address] [id number], [place] [address]- 0677 11 Mar, 2012 [facility] [place] [facility] [address] [id number], [place] [address]- 3226 11 Mar, 2012 [facility] [place] [facility] [address] [id number], [place] [address]- 8204 10 Mar, 2012 [facility] [place] [facility] [address] [id number], [place] [address]- 6765 10 Mar, 2012 [facility] [place] [facility] [address] [id number], [place] [address]- 1490 10 Mar, 2012 [facility] [place] [facility] [address] [id number], [place] [address]- 2745 Mar, [facility] [place] [facility] [address] [id number] [place] [address]- 2638 Mar, [facility] [place] [facility] [address] [id number] [place] [address]- 9631 Mar, [facility] [place] [facility] [address] [id number] [place] [address]- 9507 Feb, [facility] [place] [facility] [address] [id number] [place] [address]- 3235 Feb, [facility] [place] [facility] [address] [id number] [place] [address]- 0663 Feb, [facility] [place] [facility] [address] [id number] [place] [address]- 1467 Feb, [facility] [place] [facility] [address] [id number] [place] [address]- 4482 Jan, [facility] [place] [facility] [address] [id number] [place] [address]- 7536 Jan, [facility] [place] [facility] [address] [id number] [place] [address]- 6810 Jan, [facility] [place] [facility] [address] [id number] [place] [address]- 9092 Jan, [facility] [place] [facility] [address] [id number] [place] [address]- 9141 Jan, [facility] [place] [facility] [address] [id number] [place] [address]- 9051 Jan, [facility] [place] [facility] [address] [id number] [place] [address]- 4680 Dec, [facility] [place] [facility] [address] [id number] [place] [address]- 1615 Dec, [facility] [place] [facility] [address] [id number] [place] [address]- 4295 Dec, [facility] [place] [facility] [address] [id number] [place] [address]- 7504 Dec, [facility] [address] [id number] [place] [address]- 0121 Dec, [facility] [address] [id number] [place] [address]- 9366 Dec, [facility] [address] [id number] [place] [address]- 1616 Dec, [facility] [address] [id number] [place] [address]- 8077 Dec, [facility] [address] [id number] [place] [address]- 2926 Dec, [facility] [address] [id number] [place] [address]- 8075 Dec, [facility] [address] [id number] [place] [address]- 9706 Dec, [facility] [address] [id number] [place] [address]- 5624 October, [facility] [address] [id number] [place] [address]- 4293 October, [facility] [address] [id number] [place] [address]- 9572 October, [facility] [address] [id number] [place] [address]- 8002 October, [facility] [address] [id number] [place] [address]- 1523 Sep, [facility] [place] [facility] [address] [id number] [place] [address]- 5803 Sep, [facility] [place] [facility] [address] [id number] [place] [address]- 9952 Sep, [facility] [place] [facility] [address] [id number] [place] [address]- 3239 Sep, [facility] [address] [id number] [address]- 9153 Sep, [facility] [id number], [place] [address]- 1165 Sep, [facility] [id number], [place] [address]- 5826 Sep, [facility] [id number], [place] [address]- 5188 Sep, [facility] [id number], [place] [address]- 6606 Sep, [facility] [id number], [place] [address]- 2782 Sep, [facility] [id number], [place] [address]- 8931 Sep, IMMUNIZATIONS No Known Immunizations SOCIAL HISTORY Never Assessed REASON FOR VISIT short of breath- 04/08/[address] [place] WILLIAM , dizzy/lightheadedness Craig WILLIAM , sharp pains in chest - pt says it doesnt feel from heart more lungs Craig WILLIAM PLAN OF CARE Activity Details Follow Up Reg appt Reason: VITAL SIGNS Height 62 in 2018-04-11 Temperature 97.3 degrees Fahrenheit 2018-04-11 Heart Rate 56 bpm 2018-04-11 Respiratory Rate 20 2018-04-11 Oximetry w/ oxygen:87 % 2018-04-11 Blood pressure systolic 128 mmHg 2018-04-11 Blood pressure diastolic 86 mmHg 2018-04-11 MEDICATIONS Medication Instructions Dosage Frequency Start Date End Date Duration Status Wheelchair - use heavy duty wheel chair for mobility 24h Nov, Active PredniSONE 20 mg Orally Once a day 3 tabs 4 days, then 2 tabs for 4 days 24h Mar, Apr, 8 days Active Latanoprost 0.005 % Ophthalmic Once a day 1 drop into affected eye in the evening 24h Active Lomotil 2.5-0.025 MG Orally Four times a day 1 tablet as needed 6h Dec, Active Percocet 7.5-325 MG Orally 4 times a day 1 tablet 6h Mar, 28 days Active Hospital Bed as directed Mar, Active ProAir HFA 108 (90 Base) MCG/ACT Inhalation every 6 hrs 2 puffs as needed 6h Nov, Active Wheelchair - to use for mobility daily Bariatric 24h Aug, Active Lipitor 80 MG Orally Once a day 1 tablet 24h Active Omeprazole 40 MG Orally Once a day 1 capsule 24h Active Lasix 80 MG Orally Once a day 1 tablet 24h Dec, Active Doxycycline Hyclate 100 mg Orally twice a day 1 capsule 12h Mar, Apr, 7 days Active Glucophage 500 MG 1 TABLET BY ORAL ROUTE 1 TIME PER DAY WITH MEALS TWICE DAILY. Active Aspirin 81 mg take 1 tablet (81 mg) by oral route once daily Sep, Active Fentanyl 75 MCG/HR Transdermal once every 3 days. 1 patch to skin Mar Active Flexeril 10 mg take 1 tablet (10 mg) by oral route 3 times per day PRN pain Jan, Active Toprol XL 25 mg 0.5 Tablet by Oral route 1 time per day Nov, Active Synthroid 200 MCG TAKE 1 TABLET (175 MCG) BY ORAL ROUTE ONCE DAILY Active Potassium Chloride Angie ER 20 meq Orally Twice a day 1 tablet 12h Active Imdur 30 MG Orally Once a day 1 tablet 24h Active RESULTS No Results PROCEDURES No Known [...]
--- OUTSIDE RECORDS SUMMARY | 2018-07-12 08:05 | XMS REPORT ---
Author Author AJN HERNANDEZ 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 Name Role Phone JAN HERNANDEZ Unavailable PROBLEMS Type Condition ICD9-CM Code [id number] Code Onset Dates Condition Status SNOMED Code Problem Hypothyroidism E03.9 Active 94694235 Problem Arthritis M19.90 Active 7824761 Problem Prediabetes R73.09 Active 2316435 Problem Restrictive lung disease J98.4 Active 03889465 Problem Anemia D64.9 Active 797360099 Problem Cor pulmonale I27.81 Active 18537507 Problem Back pain M54.9 Active 997613173 Problem Obesity hypoventilation syndrome E66.2 Active 074018374 Problem 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 I25.10 Active 2208414721601 Problem Body mass index (BMI) of 45.0-49.9 in adult Z68.42 Active 811313709 Problem Hypokalemia E87.6 Active 59566419 Problem Venous insufficiency I87.2 Active 28663766 Problem 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 Active 423234525 ALLERGIES No Information ENCOUNTERS Encounter Location Date Diagnosis [facility] [id number] [address] 9[address] Apr, [facility] [address] [address] 1200 Apr, [facility] [address] [address] 5425 Apr, [facility] [address] [address] 5316 Apr, [facility] [id number] [address] Apr, Swelling of right lower extremity M79.89 [facility] [id number] [place] [address] 12301- 3796 Apr, [facility] [address] 81196- 9732 Mar, Bronchitis J40 [facility] [address] 28209- 4220 Mar, [facility] [address] 02160- 6361 Mar, 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 ; Encounter for immunization Z23 and Arthritis M19.90 [facility] [address] 69241- 0807 Mar, Arthritis M19.90 and Back pain M54.9 [facility] [address] 32102- 1343 Mar, [facility] [id number] [place] [address] 28366- 3645 Mar, [facility] [address] 35501- 9519 Feb, Arthritis M19.90 [facility] [id number] [place] [address] 80947- 4326 Jan, Arthritis M19.90 [facility] [id number] [place] [address] 00393- 5436 Jan, Back pain M54.9 and Arthritis M19.90 [facility] [id number] [place] [address] 92969- 1548 Jan, [facility] [id number] [place] [address] 92676- 8167 Jan, Back pain M54.9 [facility] [id number] [place] [address] 80274- 4540 Jan, Arthritis M19.90 [facility] [id number] [place] [address] 66932- 3583 Jan, Back pain M54.9 [facility] [id number] [place] [address] 19082- 2760 Jan, [facility] [id number] [place] [address] 27452- 1274 Jan, Back pain M54.9 [facility] [id number] [place] [address] 31035- 5567 Dec, Ingrowing nail with infection L60.0 and Onychomycosis B35.1 [facility] [id number] [place] [address] 88754- 3309 Dec, Arthritis M19.90 [facility] [id number] [place] [address] 07421- 1806 Dec, Ingrowing nail L60.0 [facility] [id number] [place] [address] 68802- 5836 Dec, Back pain M54.9 [facility] [id number] [place] [address] 79274 -9487 Dec, [facility] [id number] [place] [address] 53690- 8269 Dec, Back pain M54.9 [facility] [id number] [place] [address] 82995- 4767 Nov, Arthritis M19.90 [facility] [id number] [place] [address] 07427- 4564 Nov, [facility] [id number] [place] [address] 33744- 9216 Nov, Arthritis M19.90 ; Anemia D64.9 ; Restrictive lung disease J98.4 ; Weakness R53.1 and BMI 50.0-59.9, adult Z68.43 [facility] [address] [place] [address]- 8497 Nov, Arthritis M19.90 [facility] [id number] [place] [address] 27700- 4662 Nov, Back pain M54.9 [facility] [id number] [place] [address] 58105- 3596 October, Back pain M54.9 [facility] [id number] [place] [address] 98073- 4223 October, Back pain M54.9 [facility] [id number] [place] [address] 03580- 1009 Sep, Back pain M54.9 [facility] [id number] [place] [address] 57599- 9648 Sep, Back pain M54.9 [facility] [id number] [place] [address] 93954 -6212 Sep, [facility] [id number] [place] [address] 05297 -0242 Sep, [facility] [id number] [place] [address] 33546 -5397 Sep, Swelling of right lower extremity M79.89 and Cellulitis of right lower extremity L03.115 [place] [id number] [place] [address] 48421- 8211 27 Aug, 2017 Back pain M54.9 [facility] [id number] [place] [address] 53787- 0943 15 Aug, 2017 Back pain M54.9 [facility] [id number] [place] [address] 08717- 0261 13 Aug, 2017 [facility] [id number] [place] [address] 92161- 8807 13 Aug, 2017 Cellulitis of right lower extremity L03.115 ; Ventral hernia without obstruction or gangrene K43.9 and BMI 50.0-59.9, adult Z68.43 [facility] [id number] [place] [address] 04914- 4690 28 Jul, 2017 Back pain M54.9 [facility] [id number] [place] [address] 08181- 9076 28 Jul, 2017 [facility] (current) 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 Z79.891 ; Arthritis M19.90 ; Back pain M54.9 ; Prediabetes R73.09 ; Hypothyroidism E03.9 ; 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 I25.10 and Anemia D64.9 [facility] [id number] [place] [address] 55922- 8740 27 Jul, 2017 [employer] (current) 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 Z79.891 ; Back pain M54.9 ; Arthritis M19.90 ; Prediabetes R73.09 ; Hypothyroidism E03.9 ; 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 I25.10 ; Anemia D64.9 and BMI 45.0-49.9, adult Z68.42 [facility] [id number] [place] [address] 82299- 0219 15 Jul, 2017 Back pain M54.9 [facility] [id number] [place] [address] 70911- 2089 05 Jul, 2017 Back pain M54.9 [facility] [id number] [place] [address] 60383- 9954 Jun, Back pain M54.9 [facility] [id number] [place] [address] 75431- 1903 Jun, Back pain M54.9 [facility] [id number] [place] [address] 35842 -1862 May, Skin cancer of face C44.300 and BMI 45.0-49.9, adult Z68.42 [facility] [id number] [place] [address] 33338- 1254 May, [facility] [id number] [place] [address] 87086- 7575 May, Back pain M54.9 [facility] [id number] [place] [address] 67571- 7317 May, Back pain M54.9 [facility] [id number] [place] [address] 10215- 1684 May, Back pain M54.9 [facility] [address] 54715- 3662 Apr, Back pain M54.9 [facility] [address] 92468- 6494 Apr, Back pain M54.9 [facility] [id number] [place] [address] 08131- 9630 Mar, Back pain M54.9 [facility] [address] 48684- 2156 Mar, Anemia D64.9 ; Encounter for immunization Z23 ; Arthritis M19.90 and Right inguinal hernia K40.90 [facility] [id number] [place] [address] 02548- 9559 Mar, Back pain M54.9 [facility] [id number] [place] [address] 11240- 3637 22 Feb, 2017 Back pain M54.9 [facility] [id number] [place] [address] 61190- 8402 13 Feb, 2017 Back pain M54.9 [facility] [id number] [place] [address] 14330- 6615 Jan, Back pain M54.9 [facility] [id number] [place] [address] 53954- 4216 Jan, Back pain M54.9 [facility] [address] 17269- 5856 Jan, [facility] [address] [facility] [id number] [place] [address] 96616- 4981 Jan, Back pain M54.9 [facility] [id number] [place] [address] 76515 2546 Dec, Back pain M54.9 [facility] [id number] [place] [address] 85351- 6676 Dec, Back pain M54.9 [facility] [address] [facility] [id number] [place] [address] 76682 2546 Dec, [facility] [id number] [place] [address] 63057- 8271 Nov, Hypokalemia E87.6 [facility] [id number] [place] [address] 67847- 8935 Nov, Back pain M54.9 [facility] [id number] [place] [address] 01626 2546 Nov, [facility] [id number] [place] [address] 71595 2542 Nov, Arthritis M19.90 [facility] [id number] [place] [address] 55646 2546 Nov, Back pain M54.9 [facility] [id number] [place] [address] 49411 2546 Nov, Generalized edema R60.1 [facility] [address] [facility] [id number] [place] [address] 78943 2549 Nov, Back pain M54.9 [facility] [id number] [place] [address] 79883 2546 07 Nov, 2016 Pain in right knee M25.561 [facility] [id number] [place] [address] 40494 2546 05 Nov, 2016 Encounter for removal of sutures Z48.02 and Pain in right knee M25.561 [facility] [place] [id number] [place] [address] 07321 -6055 Nov, Abrasion of right foot, subsequent encounter S90.811D [facility] [place] [id number] [place] [address] 51708 -0141 October, Toe abrasion, right, initial encounter S90.414A [place] [address] 52725- 8763 October, [facility] [id number] [place] [address] 71161- 3820 October, Back pain M54.9 [place] [address] 29945- 9541 October, Venous insufficiency I87.2 [place] [address] 01477- 4862 October, Pain in right knee M25.561 [place] [facility] [id number] [place] [address] 36097- 4829 Sep, Back pain M54.9 [place] [address] 50051- 9604 Sep, Venous insufficiency I87.2 [facility] [address] [id number] Sep, [facility] [id number] [place] [address] 01407 -2315 Sep, Leg edema, right R60.0 and Cellulitis of right lower extremity L03.115 [place] [address] 95939- 2927 14 Sep, 2016 Pedal edema R60.0 [place] [facility] [id number] [place] [address] 46657- 6722 04 Sep, 2016 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 ; Pain in right knee M25.561 and Arthritis M19.90 [facility] [id number] [place] [address] 33368- 3487 Aug, Back pain M54.9 [facility] [id number] [place] [address] 55670- 5851 Aug, Back pain M54.9 [facility] [id number] [place] [address] 15801- 9773 Aug, [facility] [id number] [place] [address] 88812- 6484 Aug, Type 2 diabetes mellitus without complication E11.9 ; Restrictive lung disease J98.4 ; Arthritis M19.90 ; Back pain M54.9 ; Body mass index (BMI) of 45.0-49.9 in adult Z68.42 and Morbid (severe) obesity due to excess calories E66.01 [facility] [id number] [place] [address] 65010- 3095 Aug, Back pain M54.9 [facility] [id number] [place] [address] 90697- 0213 Aug, Back pain M54.9 [facility] [id number] [place] [address] 65519- 1553 Jul, [facility] [id number] [place] [address] 40469- 6087 Jul, Back pain M54.9 [facility] [id number] [place] [address] 63284- 2995 Jul, Back pain M54.9 [facility] [id number] [place] [address] 71434- 7126 Jun, Back pain M54.9 [facility] [id number] [place] [address] 92247- 1785 Jun, Back pain M54.9 [facility] [id number] [place] [address] 72435- 1721 May, Back pain M54.9 [facility] [id number] [place] [address] 28818- 1512 16 May, 2016 Back pain M54.9 [facility] [id number] [place] [address] 30152- 0895 May, Back pain M54.9 [facility] [id number] [place] [address] 09126- 7641 May, Back pain M54.9 [facility] [address] 71283- 6962 May, [facility] [address] 26402- 3781 05 May, 2016 Back pain M54.9 and Pain in right knee M25.561 [facility] [address] 67843- 8282 Apr, [facility] [address] 80400- 8853 Apr, Type 2 diabetes mellitus without complication E11.9 ; Pain in right knee M25.561 and Pain in left knee M25.562 [facility] [id number] [place] [address] 00375- 2169 Mar, [facility] [id number] [place] [address] 30529- 8243 Mar, [facility] [id number] [place] [address] 84414- 6414 Mar, [facility] [id number] [place] [address] 31044- 5366 Mar, Restrictive lung disease J98.4 ; Anemia D64.9 and Cor pulmonale I27.81 [facility] [id number] [place] [address] 79603- 0728 Mar, [facility] [address] 72851- 3238 14 Mar, 2016 [facility] [address] [facility] [id number] [place] [address]- 3867 03 Mar, 2016 [facility] [address] [facility] [id number] [address]- 1316 30 Feb, 2016 [facility] [address] [facility] [id number] [address]- 9386 29 Feb, 2016 [facility] [address] [facility] [id number] [place] [address] 93390- 2968 28 Feb, 2016 [facility] [address] [facility] [id number] [address]- 0936 27 Feb, 2016 Restrictive lung disease J98.4 [facility] [address] [facility] [id number] [address]- 4058 23 Feb, 2016 [facility] [address] [facility] [id number] [place] [address] -9326 22 Feb, 2016 [facility] [address] [facility] [id number] [address]- 3087 16 Feb, 2016 [facility] [address] [address]- 0238 Jan, [facility] [address] [address]- 9197 Jan, [facility] [address] [address]- 0628 Jan, [facility] [address] [facility] [id number] [address]- 9639 Jan, [facility] [address] [facility] [id number] [address]- 4608 Jan, Restrictive lung disease J98.4 ; Anemia D64.9 and Cor pulmonale I27.81 [facility] [address] [address]- 7776 Dec, [facility] [id number] [address]- 6689 Dec, [facility] [id number] [place] [address] 96829- 0578 14 Nov, 2015 Arthritis M19.90 and Hypokalemia E87.6 [facility] [id number] [place] [address] 00861- 7406 Nov, Back pain M54.9 [facility] [id number] [place] [address] 20357- 0416 October, Back pain M54.9 [facility] [id number] [place] [address] 32692- 4220 October, Back pain M54.9 [facility] [id number] [place] [address] 33258- 5174 Sep, Scabies exposure Z20.89 [facility] [id number] [place] [address] 70887- 9125 Sep, Restrictive lung disease J98.4 [facility] [id number] [place] [address] 26766- 6372 Sep, Back pain M54.9 [facility] [id number] [place] [address] 94744- 6773 Sep, Restrictive lung disease J98.4 [facility] [id number] [place] [address] 90105 2546 Aug, [facility] [id number] [place] [address] 13144- 2545 Aug, [facility] [id number] [place] [address] 11232- 1216 Aug, [facility] [id number] [place] [address] 95184- 0135 Aug, [facility] [address] [address]- 9461 Aug, Back pain M54.9 [facility] [id number] [place] [address] 68547- 5506 Jul, Anemia D64.9 and Prediabetes R73.09 [facility] [address] 71932- 9727 Jul, Back pain M54.9 [facility] [address] 34567- 9621 Jul, Back pain M54.9 [facility] [address] 75323- 0485 Jul, [facility] [address] 54689- 8225 Jul, Bronchitis J40 and Anemia D64.9 [facility] [address] 99079- 9773 Jun, [facility] [address] 85125- 9930 Jun, [facility] [address] 77011- 0098 Jun, Bronchitis J40 and Anemia D64.9 [facility] [id number] [place] [address] 96660- 8527 Jun, [facility] [address] 45424- 7238 Jun, Back pain M54.9 [facility] [id number] [place] [address] 83000- 0087 Jun, Anemia D64.9 [facility] [address] 62475- 0222 Jun, Restrictive lung disease J98.4 ; Anemia D64.9 ; Hypothyroidism E03.9 ; Cor pulmonale I27.81 and Back pain M54.9 [facility] [address] 24487- 9766 May, [facility] [address] [address]- 4484 Apr, Anemia D64.9 ; Encounter for immunization Z23 and Restrictive lung disease J98.4 [facility] [id number] [place] [address] 96189- 4656 Apr, [facility] [id number] [place] [address] 02543- 0862 Mar, [facility] [id number] [place] [address] 57025- 8324 Mar, Iron deficiency anemia D50.9 [facility] [id number] [place] [address] 47578- 3588 Mar, [facility] [id number] [place] [address] 80827- 8547 Mar, [facility] [id number] [place] [address] 03426- 5935 Mar, Anemia D64.9 [facility] [id number] [place] [address] 46019- 3767 Mar, [facility] [id number] [place] [address] 25342- 4971 Mar, Anemia D64.9 [facility] [id number] [place] [address] 87192- 1240 Mar, Restrictive lung disease J98.4 and Anemia D64.9 [facility] [id number] [address] Mar, [facility] [id number] [place] [address] 08072- 6201 Mar, Anemia D64.9 [facility] [id number] [address] 4469 Mar, Anemia D64.9 [facility] [id number] [address] 9058 Mar, [facility] [id number] [place] [address] 22897- 3474 Mar, Diabetes mellitus E11.9 ; Bronchitis J40 and Anemia D64.9 [facility] [id number] [address] Feb, [facility] [id number] [place] [address] 11198- 9317 Feb, [facility] [id number] [place] [address] 60931- 5203 Feb, [facility] [id number] [place] [address] 87803- 2099 Feb, [facility] [id number] [place] [address] 23883- 0187 Jan, [facility] [id number] [place] [address] 87154- 8840 Jan, [facility] [id number] [place] [address] 96647- 6990 Dec, Venous insufficiency 459.81 [facility] [id number] [place] [address] 57260- 1702 Dec, [facility] [id number] [place] [address] 87721- 1489 Dec, [facility] [id number] [place] [address] 99908- 0177 Dec, Coronary atherosclerosis of unspecified type of vessel, twenty-nine palms or graft 414.00 ; Unspecified anemia 285.9 and Generalized osteoarthrosis , unspecified site 715.00 [facility] [id number] [address] Nov, [facility] [id number] [address] 8816 Nov, [facility] [id number] [address] Nov, [facility] [id number] [address] October, [facility] [id number] [address] 0309 October, Acute bronchitis 466.0 and Shortness of breath 786.05 [facility] [id number] [address] Sep, [facility] [id number] [address]185 Sep, [facility] [id number] [place] [address] 70584- 0928 Aug, [facility] [id number] [address] 1273 Aug, [facility] [address] [id number] [address] Jul, [facility] [id number] [address] Jul, [facility] [id number] [address] Jul, [facility] [id number] [address] Jul, [facility] [id number] [address] 9[address] Jun, [facility] [address] [id number] [address] Jun, [facility] [id number] [address] Jun, [facility] [address] [id number] [address] Jun, [facility] [address] [id number] [address] 9826 Jun, [facility] [place] [facility] [address] [id number] [place] [address]- 0671 Jun, [facility] [place] [facility] [address] [id number] [place] [address]- 4213 May, [facility] [place] [facility] [address] [id number] [place] [address]- 0168 May, [facility] [place] [facility] [address] [id number] [place] [address]- 8204 May, [facility] [place] [facility] [address] [id number] [place] [address]- 7075 May, [facility] [place] [facility] [address] [id number] [place] [address]- 2689 Apr, [facility] [place] [facility] [address] [id number] [place] [address]- 1082 Apr, [facility] [place] [facility] [address] [id number] [place] [address]- 4273 Apr, [facility] [place] [facility] [address] [id number] [place] [address]- 5371 Apr, [facility] [place] [facility] [address] [facility] [id number] [place] [address]- 4633 Apr, [facility] [place] [facility] [address] [id number] [place] [address]- 0114 Apr, [facility] [place] [facility] [address] [id number] [place] [address]- 5468 Mar, [facility] [place] [facility] [address] [id number] [place] [address]- 6316 Mar, [facility] [place] [facility] [address] [id number] [place] [address]- 4856 Mar, [facility] [place] [facility] [address] [id number] [place] [address]- 7203 Mar, [facility] [place] [facility] [address] [id number] [place] [address]- 9202 Mar, [facility] [place] [facility] [address] [id number] [place] [address]- 6864 Mar, [facility] [place] [facility] [address] [id number] [place] [address]- 7408 Mar, [facility] [place] [facility] [address] [id number] [place] [address]- 7651 Mar, [facility] [place] [facility] [address] [id number] [place] [address]- 5400 Feb, [facility] [place] [facility] [address] [id number] [place] [address]- 3079 Feb, [facility] [place] [facility] [address] [id number] [place] [address]- 4080 Jan, [facility] [place] [facility] [address] [id number] [place] [address]- 1758 Jan, [facility] [place] [facility] [address] [id number] [place] [address]- 2227 Jan, [facility] [place] [facility] [address] [id number] [place] [address]- 2861 Jan, [facility] [place] [facility] [address] [id number] [place] [address]- 9549 Jan, [facility] [place] [facility] [address] [id number] [place] [address]- 5845 Jan, [facility] [place] [facility] [address] [id number] [place] [address]- 9292 Dec, [facility] [place] [facility] [address] [id number] [place] [address]- 8146 Dec, [facility] [place] [facility] [address] [id number] [place] [address]- 7721 Dec, [facility] [place] [facility] [address] [id number] [place] [address]- 8369 Dec, [facility] [place] [facility] [address] [id number] [place] [address]- 4688 Nov, [facility] [place] [facility] [address] [id number] [place] [address]- 8034 Nov, [facility] [place] [facility] [address] [id number] [place] [address]- 3755 Nov, [facility] [place] [facility] [address] [id number] [place] [address]- 7323 Nov, [facility] [place] [facility] [address] [id number] [place] [address]- 0901 Nov, [facility] [place] [facility] [address] [id number] [place] [address]- 9181 Nov, [facility] [place] [facility] [address] [id number] [place] [address]- 8183 Nov, [facility] [place] [facility] [address] [id number] [place] [address]- 4779 Nov, [facility] [place] [facility] [address] [id number] [place] [address]- 5463 Nov, [facility] [place] [facility] [address] [id number] [place] [address]- 2307 Nov, [facility] [place] [facility] [address] [id number] [place] [address]- 0108 Nov, [facility] [place] [facility] [address] [id number] [place] [address]- 5940 Nov, [facility] [place] [facility] [address] [id number] [place] [address]- 6396 October, [facility] [place] [facility] [address] [id number] [place] [address]- 1908 October, [facility] [place] [facility] [address] [id number] [place] [address]- 5144 October, [facility] [place] [facility] [address] [id number] [place] [address]- 6824 October, [facility] [address] [id number] [place] [address]- 6266 October, [facility] [place] [facility] [address] [id number] [place] [address]- 8848 October, [facility] [address] [id number] [place] [address]- 1839 October, [facility] [address] [id number] [place] [address]- 0160 October, [facility] [address] [id number] [place] [address]- 3291 October, [facility] [address] [id number] [place] [address]- 7291 Sep, [facility] [place] [facility] [address] [id number] [place] [address]- 6523 Sep, [facility] [address] [id number] [place] [address]- 7580 Sep, [facility] [place] [facility] [address] [id number] [place] [address]- 4937 Sep, [facility] [address] [id number] [place] [address]- 1044 Sep, [facility] [place] [facility] [address] [id number] [place] [address]- 4426 Sep, [facility] [place] [facility] [address] [id number] [place] [address]- 3239 Aug, [facility] [place] [facility] [address] [id number] [place] [address]- 8344 Aug, [facility] [place] [facility] [address] [id number] [place] [address]- 5587 Aug, [facility] [place] [facility] [address] [id number] [place] [address]- 6196 Aug, [facility] [place] [facility] [address] [id number] [place] [address]- 7333 Aug, [facility] [place] [facility] [address] [id number] [place] [address]- 1491 Aug, [facility] [place] [facility] [address] [id number] [place] [address]- 3879 Aug, [facility] [place] [facility] [address] [id number] [place] [address]- 9354 Aug, [facility] [place] [facility] [address] [id number] [place] [address]- 8401 Aug, [facility] [place] [facility] [address] [id number] [place] [address]- 2768 Aug, [facility] [place] [facility] [address] [id number] [place] [address]- 9116 Jul, [facility] [place] [facility] [address] [id number] [place] [address]- 9214 Jul, [facility] [place] [facility] [address] [id number] [place] [address]- 9522 Jun, [facility] [place] [facility] [address] [id number] [place] [address]- 7153 Jun, [facility] [place] [facility] [address] [id number] [place] [address]- 0203 Jun, [facility] [place] [facility] [address] [id number] [place] [address]- 9445 Jun, [facility] [place] [facility] [address] [id number] [place] [address]- 6757 Jun, [facility] [place] [facility] [address] [id number] [place] [address]- 1684 Jun, [facility] [place] [facility] [address] [id number] [place] [address]- 1885 Jun, [facility] [place] [facility] [address] [id number] [place] [address]- 5392 Jun, [facility] [address] [id number] [place] [address]- 3882 May, [facility] [place] [facility] [address] [id number] [place] [address]- 5386 May, [facility] [address] [id number] [place] [address]- 2090 May, [facility] [place] [facility] [address] [id number] [place] [address]- 3903 May, [facility] [address] [id number] [place] [address]- 7861 May, [facility] [place] [facility] [address] [id number] [place] [address]- 9508 May, [facility] [address] [id number] [place] [address]- 6062 May, [facility] [place] [facility] [address] [id number] [place] [address]- 6148 May, [facility] [place] [facility] [address] [id number] [place] [address]- 0872 May, [facility] [place] [facility] [address] [id number] [place] [address]- 4814 Apr, [facility] [place] [facility] [address] [id number] [place] [address]- 8639 Apr, [facility] [place] [facility] [address] [id number] [place] [address]- 3483 Apr, [facility] [place] [facility] [address] [id number] [place] [address]- 5191 Apr, [facility] [place] [facility] [address] [id number] [place] [address]- 3349 Mar, [facility] [place] [facility] [address] [id number] [place] [address]- 0877 Mar, [facility] [place] [facility] [address] [id number] [place] [address]- 6678 30 Mar, 2012 [facility] [place] [facility] [address] [id number] [place] [address]- 4321 30 Mar, 2012 [facility] [place] [facility] [address] [id number] [place] [address]- 7282 Mar, 2012 [facility] [place] [facility] [address] [id number] [place] [address]- 2345 30 Mar, 2012 [facility] [place] [facility] [address] [id number] [place] [address]- 5859 Mar, 2012 [facility] [place] [facility] [address] [id number] [place] [address]- 7061 Mar, 2012 [facility] [place] [facility] [address] [id number] [place] [address]- 0443 Mar, 2012 [facility] [place] [facility] [address] [id number] [place] [address]- 5294 Mar, 2012 [facility] [place] [facility] [address] [id number] [place] [address]- 1580 Mar, 2012 [facility] [place] [facility] [address] [id number] [place] [address]- 7434 Mar, 2012 [facility] [place] [facility] [address] [id number] [place] [address]- 8117 18 Mar, 2012 [facility] [place] [facility] [address] [id number] [address]- 8695 18 Mar, 2012 [facility] [place] [facility] [address] [id number] [place] [address]- 5162 18 Mar, 2012 [facility] [place] [facility] [address] [id number] [place] [address]- 4886 18 Mar, 2012 [facility] [place] [facility] [address] [id number] [place] [address]- 1838 17 Mar, 2012 [facility] [place] [facility] [address] [id number] [place] [address]- 2832 17 Mar, 2013 [facility] [place] [facility] [address] [id number] [place] [address]- 8144 15 Mar, 2012 [facility] [place] [facility] [address] [id number] [place] [address]- 7186 15 Mar, 2013 [facility] [place] [facility] [address] [id number] [place] [address]- 2087 14 Mar, 2012 [facility] [place] [facility] [address] [id number] [address]- 5214 14 Mar, 2012 [facility] [place] [facility] [address] [id number] [place] [address]- 2499 14 Mar, 2013 [facility] [place] [facility] [address] [id number] [place] [address]- 5547 14 Mar, 2013 [facility] [place] [facility] [address] [id number] [place] [address]- 4510 12 Mar, 2013 [facility] [place] [facility] [address] [id number] [place] [address]- 5275 11 Mar, 2013 [facility] [place] [facility] [address] [id number] [place] [address]- 0000 11 Mar, 2012 [facility] [place] [facility] [address] [id number] [place] [address]- 3134 10 Mar, 2013 [facility] [place] [facility] [address] [id number] [place] [address]- 9200 10 Mar, 2012 [facility] [place] [facility] [address] [id number] [place] [address]- 0297 10 Mar, 2013 [facility] [place] [facility] [address] [id number] [place] [address]- 4144 10 Mar, 2013 [facility] [place] [facility] [address] [id number] [place] [address]- 4938 04 Mar, 2013 [facility] [place] [facility] [address] [id number] [place] [address]- 0927 Mar, [facility] [place] [facility] [address] [id number] [place] [address]- 5360 27 Feb, 2013 [facility] [address] [id number] [place] [address]- 0708 Feb, [facility] [address] [id number] [place] [address] 2546 Feb, [facility] [address] [id number] [place] [address]- 9142 Feb, [facility] [address] [id number] [place] [address]- 7354 Jan, [facility] [address] [id number] [place] [address]- 0140 Jan, [facility] [address] [id number] [place] [address]- 8599 Jan, [facility] [address] [id number] [place] [address]- 5394 Jan, [facility] [address] [id number] [place] [address]- 4132 Jan, [facility] [address] [id number] [place] [address]- 0769 Jan, [facility] [address] [id number] [place] [address]- 5972 Dec, [facility] [place] [facility] [address] [id number] [place] [address]- 254 Dec, [facility] [address] [id number] [place] [address]- 2034 Dec, [facility] [place] [facility] [address] [id number] [place] [address]- 1351 Dec, [facility] [place] [facility] [address] [id number] [place] [address]- 3675 Dec, [facility] [place] [facility] [address] [id number] [place] [address]- 7805 Dec, [facility] [address] [id number] [place] [address]- 0907 Dec, [facility] [address] [id number] [place] [address]- 6460 Dec, [facility] [address] [id number] [place] [address]- 2393 Dec, [facility] [place] [facility] [address] [id number] [place] [address]- 5836 Dec, [facility] [address] [id number] [place] [address]- 2606 Dec, [facility] [place] [facility] [address] [id number] [place] [address]- 5848 October, [facility] [address] [id number] [place] [address]- 4725 October, [facility] [address] [id number] [place] [address]- 5478 October, [facility] [address] [id number] [place] [address]- 2501 October, [facility] [address] [id number] [place] [address]- 0880 Sep, [facility] [place] [facility] [address] [id number] [place] [address]- 3669 Sep, [facility] [place] [facility] [address] [id number] [place] [address]- 5486 29 Sep, 2012 [facility] [place] [facility] [address] [id number] [place] [address]- 0330 Sep, [facility] [place] [facility] [address] [id number] [place] [address]- 4451 Sep, [facility] [place] [facility] [address] [id number] [place] [address]- 8776 Sep, [facility] [place] [facility] [address] [id number] [place] [address]- 8960 15 Sep, 2012 [facility] [address] [facility] [id number] [place] [address]- 2825 14 Sep, 2012 [facility] [address] [facility] [id number] [address]- 2782 13 Sep, 2012 [facility] [address] [facility] [id number] [place] [address]- 9275 12 Sep, 2012 [facility] [address] [facility] [id number] [place] [address]- 0371 11 Sep, 2012 IMMUNIZATIONS No Known Immunizations SOCIAL HISTORY Never Assessed REASON FOR VISIT Nursing advice PLAN OF CARE VITAL SIGNS MEDICATIONS Unknown [...]
--- OUTSIDE RECORDS SUMMARY | 2018-07-12 08:06 | XMS REPORT ---
Author Author NICOLE VALDEZ [facility] Address [address] [place] [address] Care Team Providers Care Communications Controller Name Role Phone KENY VALDEZTA Unavailable PROBLEMS Type Condition ICD9-CM Code UZJ09-PL Code Onset Dates Condition Status SNOMED Code Problem Hypothyroidism E03.9 Active 60331163 Problem Arthritis M19.90 Active 1382294 Problem Prediabetes R73.09 Active 9448993 Problem Restrictive lung disease J98.4 Active 80756479 Problem Anemia D64.9 Active 464695478 Problem Cor pulmonale I27.81 Active 91185459 Problem Back pain M54.9 Active 270135726 Problem Obesity hypoventilation syndrome E66.2 Active 811692409 Problem 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 Active 1568333525804 Problem Body mass index (BMI) of 45.0-49.9 in adult Z68.42 Active 814979091 Problem Hypokalemia E87.6 Active 74218889 Problem Venous insufficiency I87.2 Active 25193769 Problem 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 Active 429825411 ALLERGIES Substance Reaction Event Type Date Status Rocephin anaphylaxis, hives Drug Allergy Apr, Active Ibuprofen anaphylaxis, hives Drug Allergy Apr, Active ENCOUNTERS Encounter Location Date Diagnosis [facility] [place] [id number], [place] [address] Apr, [facility] [place] [address] [address] Apr, [facility] [id number], [place] [address] Apr, Swelling of right lower extremity M79.89 [facility] [place] [id number] [address] Apr, [facility] [place] [id number] [place] [address] 86430- 2280 Mar, Bronchitis J40 [facility] [place] [id number] [place] [address] 11666- 6160 Mar, [facility] [place] [id number] [place] [address] 55494- 6564 Mar, 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 ; Encounter for immunization Z23 and Arthritis M19.90 [facility] [place] [id number] [place] [address] 07162- 5117 Mar, Arthritis M19.90 and Back pain M54.9 [facility] [place] [id number] [place] [address] 16018- 3903 Mar, [facility] [place] [id number] [place] [address] 83731- 3169 Mar, [facility] [place] [id number] [place] [address] 08831- 1631 Feb, Arthritis M19.90 [facility] [place] [id number] [place] [address] 99766- 0301 Jan, Arthritis M19.90 [facility] [place] [id number] [place] [address] 57104- 9053 Jan, Back pain M54.9 and Arthritis M19.90 [facility] [place] [id number] [place] [address] 51924- 3278 Jan, [facility] [place] [id number] [place] [address] 14924- 9174 Jan, Back pain M54.9 [facility] [place] [id number] [place] [address] 89275- 6817 Jan, Arthritis M19.90 [facility] [place] [id number] [place] [address] 17390- 9072 Jan, Back pain M54.9 [facility] [place] [address], [place] [address] 99[address] Jan, [facility] [place] [id number] [place] [address] 57922- 9594 Jan, Back pain M54.9 [facility] [place] [address] [place] [address] 70029- 8138 Dec, Ingrowing nail with infection L60.0 and Onychomycosis B35.1 [facility] [place] [address] [place] [address] 05242- 8322 Dec, Arthritis M19.90 [facility] [place] [id number] [place] [address] 21277- 7974 Dec, Ingrowing nail L60.0 [facility] [place] [address] [place] [address] 88599- 5490 Dec, Back pain M54.9 [facility] [address] [place] [address] 93542 -5035 Dec, [facility] [place] [id number] [place] [address] 83361- 9873 Dec, Back pain M54.9 [facility] [place] [address] [place] [address] 66969- 6011 Nov, Arthritis M19.90 [facility] [place] [id number] [place] [address] 96070- 2620 Nov, [facility] [place] [address] [place] [address] 32186- 9774 Nov, Arthritis M19.90 ; Anemia D64.9 ; Restrictive lung disease J98.4 ; Weakness R53.1 and BMI 50.0-59.9, adult Z68.43 [facility] [place] [address], [place] [address] 26[address] Nov, Arthritis M19.90 [facility] [place] [id number] [place] [address] 44051- 3206 Nov, Back pain M54.9 [facility] [place] [id number] [place] [address] 18379- 8245 October, Back pain M54.9 [facility] [place] [id number] [place] [address] 39997- 3182 October, Back pain M54.9 [facility] [place] [id number] [place] [address] 87864- 8749 Sep, Back pain M54.9 [facility] [place] [id number] [place] [address] 53280- 5136 Sep, Back pain M54.9 [facility] [id number] [place] [address] 68076 -5294 Sep, [facility] [id number] [place] [address] 81904 -2225 Sep, [facility] [id number] [place] [address] 09624 -4242 Sep, Swelling of right lower extremity M79.89 and Cellulitis of right lower extremity L03.115 [facility] [place] [id number] [place] [address] 27721- 4020 27 Aug, 2017 Back pain M54.9 [facility] [place] [id number] [place] [address] 81562- 8171 15 Aug, 2017 Back pain M54.9 [facility] [place] [id number] [place] [address] 44636- 6227 13 Aug, 2017 [facility] [place] [id number] [place] [address] 72485- 0657 Aug, Cellulitis of right lower extremity L03.115 ; Ventral hernia without obstruction or gangrene K43.9 and BMI 50.0-59.9, adult Z68.43 [facility] [place] [id number] [place] [address] 55282- 7808 Jul, Back pain M54.9 [facility] [place] [address] [place] [address] 95904- 5281 Jul, 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 ; Arthritis M19.90 ; Back pain M54.9 ; Prediabetes R73.09 ; Hypothyroidism E03.9 ; 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 and Anemia D64.9 [facility] [place] [id number] [place] [address] 03879- 2970 27 Jul, 2017 [facility] (current) 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 Z79.891 ; Back pain M54.9 ; Arthritis M19.90 ; Prediabetes R73.09 ; Hypothyroidism E03.9 ; 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 ; Anemia D64.9 and BMI 45.0-49.9, adult Z68.42 [facility] [place] [id number] [place] [address] 66630- 8668 15 Jul, 2017 Back pain M54.9 [facility] [place] [id number] [place] [address] 10557- 4933 05 Jul, 2017 Back pain M54.9 [facility] [place] [id number] [place] [address] 23169- 5086 Jun, Back pain M54.9 [facility] [place] [id number] [place] [address] 01929- 2081 Jun, Back pain M54.9 [facility] [id number] [place] [address] 05748 -9656 May, Skin cancer of face C44.300 and BMI 45.0-49.9, adult Z68.42 [facility] [place] [id number] [place] [address] 56148- 2057 May, [facility] [place] [id number] [place] [address] 61133- 0197 May, Back pain M54.9 [facility] [place] [id number] [place] [address] 93660- 4675 May, Back pain M54.9 [facility] [place] [id number] [place] [address] 79661 2546 May, Back pain M54.9 [facility] [place] [id number] [place] [address] 64622- 1646 Apr, Back pain M54.9 [facility] [place] [id number] [place] [address] 60073 2540 Apr, Back pain M54.9 [facility] [place] [id number] [place] [address] 40273- 2201 Mar, Back pain M54.9 [facility] [place] [id number] [place] [address] 05030- 9612 Mar, Anemia D64.9 ; Encounter for immunization Z23 ; Arthritis M19.90 and Right inguinal hernia K40.90 [facility] [place] [id number] [place] [address] 25829- 2418 Mar, Back pain M54.9 [facility] [place] [id number] [place] [address] 92643- 4830 Feb, Back pain M54.9 [facility] [place] [id number] [place] [address] 35992- 7064 Feb, Back pain M54.9 [facility] [place] [id number] [place] [address] 06430 2541 Jan, Back pain M54.9 [facility] [place] [id number] [place] [address] 39265- 0423 Jan, Back pain M54.9 [facility] [place] [id number] [place] [address] 71750- 254 Jan, [facility] [place] [id number] [place] [address] 46431- 4221 Jan, Back pain M54.9 [facility] [place] [id number] [place] [address] 41659- 3678 Dec, Back pain M54.9 [facility] [place] [id number] [place] [address] 91816- 0995 Dec, Back pain M54.9 [facility] [place] [id number] [place] [address] 83507- 5546 Dec, [facility] [place] [id number] [place] [address] 55277- 2138 Nov, Hypokalemia E87.6 [facility] [place] [id number] [place] [address] 07767- 6117 Nov, Back pain M54.9 [facility] [place] [id number] [place] [address] 31778- 5910 Nov, [facility] [place] [id number] [place] [address] 02878- 7425 Nov, Arthritis M19.90 [facility] [place] [address] 76249- 3075 Nov, Back pain M54.9 [facility] [place] [id number] [place] [address] 81643- 2595 Nov, Generalized edema R60.1 [facility] [place] [id number] [place] [address] 46556- 1260 Nov, Back pain M54.9 [facility] [place] [id number] [place] [address] 57694- 6637 Nov, Pain in right knee M25.561 [facility] [place] [id number] [place] [address] 17669- 8756 05 Nov, 2016 Encounter for removal of sutures Z48.02 and Pain in right knee M25.561 [facility] [id number] [place] [address] 73438 -9629 Nov, Abrasion of right foot, subsequent encounter S90.811D [facility] [id number] [place] [address] 62607 -0484 October, Toe abrasion, right, initial encounter S90.414A [facility] [place] [id number] [place] [address] 43619- 7345 October, [address] [address] 01343- 7974 October, Back pain M54.9 [place] [id number] [place] [address] 51874- 6639 October, Venous insufficiency I87.2 [place] [address] 60310- 0890 October, Pain in right knee M25.561 [place] [address] 65056- 7371 Sep, Back pain M54.9 [place] [id number] [place] [address] 70385- 3699 Sep, Venous insufficiency I87.2 [facility] [address] [id number] Sep, [facility] [id number] [place] [address] 46344 -3640 16 Sep, 2016 Leg edema, right R60.0 and Cellulitis of right lower extremity L03.115 [place] [id number] [place] [address] 01334- 5786 14 Sep, 2016 Pedal edema R60.0 [place] [address] 12617- 1868 04 Sep, 2016 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 ; Pain in right knee M25.561 and Arthritis M19.90 [place] [id number] [place] [address] 20273- 3552 Aug, Back pain M54.9 [facility] [place] [id number] [place] [address] 81458- 1332 Aug, Back pain M54.9 [facility] [place] [id number] [place] [address] 42855- 0045 Aug, [facility] [place] [id number] [place] [address] 14827- 7418 10 Aug, 2016 Type 2 diabetes mellitus without complication E11.9 ; Restrictive lung disease J98.4 ; Arthritis M19.90 ; Back pain M54.9 ; Body mass index (BMI) of 45.0-49.9 in adult Z68.42 and Morbid (severe) obesity due to excess calories E66.01 [facility] [place] [id number] [place] [address] 36358- 7512 Aug, Back pain M54.9 [facility] [place] [address] 68858- 9861 Aug, Back pain M54.9 [facility] [place] [id number] [place] [address] 59693- 2837 Jul, [facility] [place] [id number] [place] [address] 67559- 8561 Jul, Back pain M54.9 [facility] [place] [id number] [place] [address] 56146- 5493 Jul, Back pain M54.9 [facility] [place] [id number] [place] [address] 56710- 3062 Jun, Back pain M54.9 [facility] [place] [id number] [place] [address] 26610- 0588 Jun, Back pain M54.9 [facility] [place] [id number] [place] [address] 26145- 5126 May, Back pain M54.9 [facility] [place] [address] 61113- 7068 16 May, 2016 Back pain M54.9 [facility] [place] [id number] [place] [address] 48646- 1392 May, Back pain M54.9 [facility] [place] [id number] [place] [address] 56334- 6598 May, Back pain M54.9 [facility] [place] [id number] [place] [address] 13987- 1452 May, [facility] [place] [id number] [place] [address] 06913- 6523 05 May, 2016 Back pain M54.9 and Pain in right knee M25.561 [facility] [place] [id number] [place] [address] 74136- 8683 Apr, [facility] [place] [id number] [place] [address] 67621- 3769 Apr, Type 2 diabetes mellitus without complication E11.9 ; Pain in right knee M25.561 and Pain in left knee M25.562 [facility] [place] [id number] [place] [address] 85814- 2411 Mar, [facility] [place] [id number] [place] [address] 38837- 3956 Mar, [facility] [place] [id number] [place] [address] 63062- [phone] Mar, [facility] [place] [id number] [place] [address] 30869- 7357 Mar, Restrictive lung disease J98.4 ; Anemia D64.9 and Cor pulmonale I27.81 [facility] [place] [id number] [place] [address] [phone]- [phone] 17 Mar, 2016 [facility] [place] [id number] [place] [address] [id number]- [phone] 14 Mar, 2016 [facility] [place] [address] [phone]- [address] Mar, [facility] [place], [facility] [id number] [address] 30 Feb, 2016 [facility] [place] [id number] [place] [address] [phone]- [phone] 29 Feb, 2016 [facility] [place] [id number] [place] [address] 69252- 3869 28 Feb, 2016 [facility] [place] [id number] [place] [address] 97340- 3798 Feb, Restrictive lung disease J98.4 [facility] [place] [id number] [place] [address] [phone]- [phone] Feb, [facility] [id number] [place] [address] [id number] -[phone] Feb, [facility] [place] [id number] [place] [address] 57086- [phone] 16 Feb, 2016 [facility] [place] [id number] [place] [address] 65217- 2457 Jan, [facility] [place] [id number] [place] [address] [phone]- 0755 Jan, [facility] [place] [id number] [address] Jan, [facility] [place] [id number] [place] [address] 23885- 1248 Jan, [facility] [place] [id number] [place] [address] 50460- 9085 Jan, Restrictive lung disease J98.4 ; Anemia D64.9 and Cor pulmonale I27.81 [facility] [place] [id number] [place] [address] [phone]- [phone] Dec, [facility] [place] [id number] [place] [address] 80504- 5319 Dec, [facility] [place] [id number] [place] [address] [id number]- 6451 14 Nov, 2015 Arthritis M19.90 and Hypokalemia E87.6 [facility] [place] [address] 24130- 5927 10 Nov, 2015 Back pain M54.9 [facility] [place] [id number] [place] [address] 16114- 5936 October, Back pain M54.9 [facility] [place] [id number] [place] [address] 92040- 6056 October, Back pain M54.9 [facility] [place] [id number] [place] [address] 81454- 3847 Sep, Scabies exposure Z20.89 [facility] [place] [facility] [id number] [place] [address] 12235- 5393 Sep, Restrictive lung disease J98.4 [facility] [place] [id number] [place] [address] 16247- 8347 Sep, Back pain M54.9 [facility] [place] [id number] [place] [address] 41992- 6784 Sep, Restrictive lung disease J98.4 [facility] [place] [id number] [place] [address] 78649 2547 Aug, [facility] [place] [id number] [place] [address] 78787 2549 Aug, [facility] [place] [id number] [place] [address] 63070 2546 Aug, [facility] [place] [id number] [place] [address] 03451- 9926 Aug, [facility] [place] [id number] [place] [address] 61983 2546 Aug, Back pain M54.9 [facility] [place] [id number] [place] [address] 63048 2546 Jul, Anemia D64.9 and Prediabetes R73.09 [facility] [place] [id number] [place] [address] 25970- 1249 Jul, Back pain M54.9 [facility] [place] [id number] [place] [address] 14663- 2612 17 Jul, 2015 Back pain M54.9 [facility] [place] [address] 93592- 7742 Jul, [facility] [place] [address] 77816- 5802 05 Jul, 2015 Bronchitis J40 and Anemia D64.9 [facility] [place] [address] 54260- 4551 Jun, [facility] [place] [address] 00394- 7753 Jun, [facility] [place] [address] 49711- 4578 Jun, Bronchitis J40 and Anemia D64.9 [facility] [place] [address] 99296- 4911 Jun, [facility] [place] [id number] [place] [address] 70963- 5245 Jun, Back pain M54.9 [facility] [place] [address] 21712- 1745 Jun, Anemia D64.9 [facility] [place] [id number] [place] [address] 53127- 3892 Jun, Restrictive lung disease J98.4 ; Anemia D64.9 ; Hypothyroidism E03.9 ; Cor pulmonale I27.81 and Back pain M54.9 [facility] [place] [id number] [place] [address] 81193- 8739 May, [facility] [place] [address] 40976- 3217 Apr, Anemia D64.9 ; Encounter for immunization Z23 and Restrictive lung disease J98.4 [facility] [place] [id number] [place] [address] 57279- 8775 Apr, [facility] [place] [id number] [place] [address] 26305- 7479 Mar, [facility] [place] [id number] [place] [address] 32664- 6654 Mar, Iron deficiency anemia D50.9 [facility] [place] [id number] [place] [address] 03310- 7303 Mar, [facility] [place] [id number] [place] [address] 40406- 9057 Mar, [facility] [place] [id number] [place] [address] 18198- 4061 Mar, Anemia D64.9 [facility] [place] [id number] [place] [address] 82582- 4560 Mar, [facility] [place] [id number] [place] [address] 56880- 1331 Mar, Anemia D64.9 [facility] [place] [id number] [place] [address] 50237- 3557 Mar, Restrictive lung disease J98.4 and Anemia D64.9 [facility] [place] [id number] [place] [address] 09213- 3743 Mar, [facility] [place] [id number] [place] [address] 30648- 3169 Mar, Anemia D64.9 [facility] [place] [id number] [place] [address] 41832- 5448 Mar, Anemia D64.9 [facility] [place] [id number] [place] [address] 95176- 4420 Mar, [facility] [place] [id number] [address]- 8841 Mar, Diabetes mellitus E11.9 ; Bronchitis J40 and Anemia D64.9 [facility] [place] [id number] [place] [address] 14512- 5374 Feb, [facility] [place] [id number] [place] [address] 95345- 3087 Feb, [facility] [place] [id number] [place] [address] 70122- 8294 Feb, [facility] [place] [id number] [place] [address] 76811- 5903 Feb, [facility] [place] [id number] [place] [address] 81479- 3886 Jan, [facility] [place] [id number] [place] [address] 36589- 2907 Jan, [facility] [place] [id number] [place] [address] 03623- 9720 Dec, Venous insufficiency 459.81 [facility] [place] [id number] [place] [address] 64891- 2343 Dec, [facility] [place] [id number] [place] [address] 73872- 0651 Dec, [facility] [place] [id number] [place] [address] 36885- 1804 Dec, Coronary atherosclerosis of unspecified type of vessel, cowlitz or graft 414.00 ; Unspecified anemia 285.9 and Generalized osteoarthrosis , unspecified site 715.00 [facility] [place] [address] [address]- 9981 Nov, [facility] [place] [id number] [place] [address] 41737- 4638 Nov, [facility] [place] [address] [address]- 0146 Nov, [facility] [place] [id number] [address]- 9492 October, [facility] [address] [address]- 6172 October, Acute bronchitis 466.0 and Shortness of breath 786.05 [facility] [id number] [place] [address]- 8366 Sep, [facility] [address] [facility] [id number] [place] [address] 20581- 7378 Sep, [facility] [id number] [address]- 5918 Aug, [facility] [id number] [place] [address] 47837- 0701 Aug, [facility] [address] [address]- 0653 Jul, [facility] [id number], [place] [address]- 2913 Jul, [facility] [id number] [place] [address]- 5852 Jul, [facility] [address] [address]- 9036 Jul, [facility] [address], [place] [address]- 6390 Jun, [facility] [id number] [address]- 6172 Jun, [facility] [id number] [address]- 5261 Jun, [facility] [address], [place] [address]- 7344 Jun, [facility] [place] [facility] [id number] [address]- 6367 Jun, [facility] [id number] [place] [address]- 4066 05 Jun, 2014 [facility] [place] [facility] [address] [id number] [place] [address]- 9029 May, [facility] [place] [facility] [address] [id number] [place] [address]- 0871 May, [facility] [place] [facility] [address] [id number] [place] [address]- 1227 May, [facility] [place] [facility] [address] [id number] [place] [address]- 4148 May, [facility] [place] [facility] [address] [id number] [place] [address]- 6469 Apr, [facility] [place] [facility] [address] [id number] [place] [address]- 7185 Apr, [facility] [place] [facility] [address] [id number] [place] [address]- 7643 Apr, [facility] [place] [facility] [address] [id number] [place] [address]- 0183 Apr, [facility] [place] [facility] [address] [id number] [place] [address]- 2225 Apr, [facility] [place] [facility] [address] [facility] [id number] [place] [address]- 8160 Apr, [facility] [place] [facility] [address] [id number] [place] [address]- 6692 Mar, [facility] [place] [facility] [address] [id number] [place] [address]- 2874 Mar, [facility] [place] [facility] [address] [id number] [place] [address]- 1645 Mar, [facility] [place] [facility] [address] [id number] [place] [address]- 3573 Mar, [facility] [place] [facility] [address] [id number] [place] [address]- 2548 Mar, [facility] [place] [facility] [address] [id number] [place] [address]- 8333 Mar, [facility] [place] [facility] [address] [id number] [place] [address]- 8992 Mar, [facility] [place] [facility] [address] [id number] [place] [address]- 8582 Mar, [facility] [place] [facility] [address] [id number] [place] [address]- 7734 Feb, [facility] [place] [facility] [address] [id number] [place] [address]- 4181 Feb, [facility] [place] [facility] [address] [id number] [place] [address]- 9283 Jan, [facility] [place] [facility] [address] [id number] [place] [address]- 3871 Jan, [facility] [place] [facility] [address] [id number] [place] [address]- 9666 Jan, [facility] [place] [facility] [address] [id number] [place] [address]- 1005 Jan, [facility] [place] [facility] [address] [id number] [place] [address]- 9872 Jan, [facility] [place] [facility] [address] [id number] [place] [address]- 0122 Jan, [facility] [place] [facility] [address] [id number] [place] [address]- 7610 Dec, [facility] [place] [facility] [address] [id number] [place] [address]- 8907 Dec, [facility] [place] [facility] [address] [id number] [place] [address]- 8821 Dec, [facility] [place] [facility] [address] [id number] [place] [address]- 0342 Dec, [facility] [place] [facility] [address] [id number] [place] [address]- 2923 Nov, [facility] [place] [facility] [address] [id number] [place] [address]- 0707 Nov, [facility] [place] [facility] [address] [id number] [place] [address]- 3608 Nov, [facility] [place] [facility] [address] [id number] [place] [address]- 7428 Nov, [facility] [place] [facility] [address] [id number] [place] [address]- 5563 Nov, [facility] [place] [facility] [address] [id number] [place] [address]- 5557 Nov, [facility] [place] [facility] [address] [id number] [place] [address]- 0847 Nov, [facility] [place] [facility] [address] [id number] [place] [address]- 1868 Nov, [facility] [place] [facility] [address] [id number] [place] [address]- 6119 Nov, [facility] [place] [facility] [address] [id number] [place] [address]- 8890 Nov, [facility] [place] [facility] [address] [id number] [place] [address]- 3389 Nov, [facility] [place] [facility] [address] [id number] [place] [address]- 0526 Nov, [facility] [place] [facility] [address] [id number] [place] [address]- 7162 October, [facility] [place] [facility] [address] [id number] [place] [address]- 3811 October, [facility] [place] [facility] [address] [id number] [place] [address]- 0403 October, [facility] [place] [facility] [address] [id number] [place] [address]- 3435 October, [facility] [place] [facility] [address] [id number] [place] [address]- 7420 October, [facility] [address] [id number] [place] [address]- 7147 October, [facility] [address] [id number] [place] [address]- 5499 October, [facility] [address] [id number] [place] [address]- 8011 October, [facility] [address] [id number] [place] [address]- 4457 October, [facility] [address] [id number] [place] [address]- 9792 Sep, [facility] [address] [id number] [place] [address]- 0299 Sep, [facility] [address] [id number] [place] [address]- 4696 Sep, [facility] [address] [id number] [place] [address]- 1238 Sep, [facility] [address] [id number] [place] [address]- 5042 Sep, [facility] [address] [id number] [place] [address]- 7982 Sep, [facility] [place] [facility] [address] [id number] [place] [address]- 0411 Aug, [facility] [address] [id number] [place] [address]- 1875 Aug, [facility] [place] [facility] [address] [id number] [place] [address]- 0080 Aug, [facility] [place] [facility] [address] [id number] [place] [address]- 9484 Aug, [facility] [place] [facility] [address] [id number] [place] [address]- 1906 Aug, [facility] [place] [facility] [address] [id number] [place] [address]- 5632 Aug, [facility] [place] [facility] [address] [id number] [place] [address]- 4720 Aug, [facility] [place] [facility] [address] [id number] [place] [address]- 5798 Aug, [facility] [place] [facility] [address] [id number] [place] [address]- 5235 Aug, [facility] [place] [facility] [address] [id number] [place] [address]- 7720 Aug, [facility] [place] [facility] [address] [id number] [place] [address]- 3340 Jul, [facility] [place] [facility] [address] [id number] [place] [address]- 0541 Jul, [facility] [place] [facility] [address] [id number] [place] [address]- 3709 Jun, [facility] [place] [facility] [address] [id number] [place] [address]- 3685 Jun, [facility] [place] [facility] [address] [id number] [place] [address]- 0569 Jun, [facility] [place] [facility] [address] [id number] [place] [address]- 3437 Jun, [facility] [place] [facility] [address] [id number] [place] [address]- 6961 Jun, [facility] [place] [facility] [address] [id number] [place] [address]- 4978 Jun, [facility] [place] [facility] [address] [id number] [place] [address]- 6668 Jun, [facility] [place] [facility] [address] [id number] [place] [address]- 1588 Jun, [facility] [place] [facility] [address] [id number] [place] [address]- 6152 May, [facility] [address] [id number] [place] [address]- 2734 May, [facility] [place] [facility] [address] [id number] [place] [address]- 6897 May, [facility] [place] [facility] [address] [id number] [place] [address]- 9786 May, [facility] [place] [facility] [address] [id number] [place] [address]- 3173 May, [facility] [place] [facility] [address] [id number] [place] [address]- 8492 May, [facility] [place] [facility] [address] [id number] [place] [address]- 9190 May, [facility] [address] [id number] [place] [address]- 2311 May, [facility] [place] [facility] [address] [id number] [place] [address]- 1590 May, [facility] [place] [facility] [address] [id number] [place] [address]- 3712 Apr, [facility] [place] [facility] [address] [id number] [place] [address]- 3349 Apr, [facility] [place] [facility] [address] [id number] [place] [address]- 1627 Apr, [facility] [place] [facility] [address] [id number] [address]- 4528 Apr, [facility] [place] [facility] [address] [id number] [place] [address]- 2842 Mar, [facility] [place] [facility] [address] [id number] [place] [address]- 9218 Mar, [facility] [place] [facility] [address] [id number], [place] [address]- 9406 Mar, [facility] [place] [facility] [address] [id number] [place] [address] 30 Mar, 2012 [facility] [place] [facility] [address] [id number] [place] [address] 30 Mar, 2012 [facility] [place] [facility] [address] [id number] [place] [address] 30 Mar, 2012 [facility] [place] [facility] [address] [id number] [place] [address] 29 Mar, 2012 [facility] [place] [facility] [address] [id number] [place] [address] 29 Mar, 2012 [facility] [place] [facility] [address] [id number] [place] [address] Mar, 2012 [facility] [place] [facility] [address] [id number] [place] [address] Mar, 2012 [facility] [place] [facility] [address] [id number] [place] [address] 18 Mar, 2012 [facility] [place] [facility] [address] [id number] [place] [address]- [address] 18 Mar, 2012 [facility] [place] [facility] [address] [id number] [place] [address]- [address] 18 Mar, 2012 [facility] [place] [facility] [address] [id number] [place] [address] 18 Mar, 2012 [facility] [place] [facility] [address] [id number] [place] [address]- 8488 18 Mar, 2012 [facility] [place] [facility] [address] [id number] [place] [address]- 34[address] 18 Mar, 2012 [facility] [place] [facility] [address] [id number] [place] [address]- 1553 17 Mar, 2012 [facility] [place] [facility] [address] [id number] [place] [address]- 9634 17 Mar, 2012 [facility] [place] [facility] [address] [id number] [place] [address]- [address] 15 Mar, 2013 [facility] [place] [facility] [address] [id number] [place] [address]- 7736 15 Mar, 2013 [facility] [place] [facility] [address] [id number], [place] [address] 14 Mar, 2013 [facility] [place] [facility] [address] [id number] [place] [address]- [address] 14 Mar, 2013 [facility] [place] [facility] [address] [id number] [address] 14 Mar, 2013 [facility] [place] [facility] [address] [id number] [place] [address]- 1795 14 Mar, 2013 [facility] [place] [facility] [address] [id number] [address] 12 Mar, 2013 [facility] [place] [facility] [address] [id number], [place] [address]- 4[address] 11 Mar, 2013 [facility] [place] [facility] [address] [id number], [place] [address]- 2429 11 Mar, 2013 [facility] [place] [facility] [address] [id number], [place] [address]- 7629 10 Mar, 2012 [facility] [place] [facility] [address] [id number][place] [address] 275[address] 10 Mar, 2012 [facility] [place] [facility] [address] [id number][place] [address]- 7252 10 Mar, 2012 [facility] [place] [facility] [address] [id number][place] [address] 46[address] 10 Mar, 2012 [facility] [place] [facility] [address] [id number] [address] 04 Mar, 2013 [facility] [place] [facility] [address] [id number] [address] Mar, [facility] [place] [facility] [address] [id number], [place] [address] 27 Feb, 2013 [facility] [place] [facility] [address] [id number] [place] [address]- 5[address] 11 Feb, 2013 [facility] [place] [facility] [address] [id number] [place] [address]- 1144 04 Feb, 2013 [facility] [place] [facility] [address] [id number] [place] [address] 2546 Feb, [facility] [place] [facility] [address] [id number] [place] [address]- [address] Jan, [facility] [place] [facility] [address] [id number] [place] [address] 2540 Jan, [facility] [place] [facility] [address] [id number] [place] [address]- [address] Jan, [facility] [place] [facility] [address] [id number] [place] [address] 37[address] Jan, [facility] [place] [facility] [address] [id number] [place] [address]- 9260 Jan, [facility] [place] [facility] [address] [id number] [place] [address]- 125[address] Jan, [facility] [place] [facility] [address] [id number] [place] [address]- 24[address] Dec, [facility] [place] [facility] [address] [id number] [place] [address]- 4695 Dec, [facility] [place] [facility] [address] [id number] [place] [address] 2549 Dec, [facility] [place] [facility] [address] [id number] [place] [address]- 2008 Dec, [facility] [place] [facility] [address] [id number] [place] [address]- 4184 Dec, [facility] [place] [facility] [address] [id number] [place] [address]- [address] Dec, [facility] [place] [facility] [address] [id number] [place] [address]- [address] Dec, [facility] [place] [facility] [address] [id number] [place] [address]- [address] Dec, [facility] [address] [id number] [place] [address]- [address]185 Dec, [facility] [address] [id number] [place] [address]- [address]35 Dec, [facility] [address] [id number] [place] [address] Dec, [facility] [address] [id number] [place] [address] October, [facility] [address] [id number] [place] [address]- 4360 October, [facility] [address] [id number] [place] [address]- 28[address] October, [facility] [address] [id number] [place] [address]- 1849 October, [facility] [address] [id number] [place] [address]- [address] Sep, [facility] [address] [id number] [place] [address]- 0752 Sep, [facility] [address] [id number] [place] [address]- 97[address] Sep, [facility] [address] [id number] [place] [address]- [address] Sep, [facility] [address] [address] [id number] [place] [address] Sep, [facility] [address] [id number] [place] [address] 16 Sep, 2012 [facility] [address] [id number] [place] [address] 15 Sep, 2012 [facility] [address] [id number] [place] [address] Sep, [facility] [place] [address] [facility] [id number] [place] [address] Sep, [facility] [place] [address] [facility] [id number] [address] Sep, [facility] [place] [address] [facility] [id number] [address] Sep, IMMUNIZATIONS No Known Immunizations SOCIAL HISTORY Never Assessed REASON FOR VISIT swollen leg JStrasserRN PLAN OF CARE Activity Details Follow Up pending ultrasound findings Reason: VITAL SIGNS Height 62 in 2018-04-15 Temperature 98.3 degrees Fahrenheit 2018-04-15 Heart Rate 65 bpm 2018-04-15 Respiratory Rate 20 2018-04-15 Blood pressure systolic 120 mmHg 2018-04-15 Blood pressure diastolic 70 mmHg 2018-04-15 MEDICATIONS Medication Instructions Dosage Frequency Start Date End Date Duration Status Percocet 7.5-325 MG Orally 4 times a day 1 tablet 6h Mar, 28 days Active Wheelchair - to use for mobility daily Bariatric 24h Aug, Active Lasix 80 MG Orally Once a day 1 tablet 24h Dec, Active Synthroid 200 MCG TAKE 1 TABLET (175 MCG) BY ORAL ROUTE ONCE DAILY Active Wheelchair - use heavy duty wheel chair for mobility 24h Nov, Active Fentanyl 75 MCG/HR Transdermal once every 3 days. 1 patch to skin Mar Active Imdur 30 MG Orally Once a day 1 tablet 24h Active Toprol XL 25 mg 0.5 Tablet by Oral route 1 time per day Nov, Active Aspirin 81 mg take 1 tablet (81 mg) by oral route once daily Sep, Active Omeprazole 40 MG Orally Once a day 1 capsule 24h Active Lomotil 2.5-0.025 MG Orally Four times a day 1 tablet as needed 6h Dec, Active PredniSONE 20 mg Orally Once a day 3 tabs 4 days, then 2 tabs for 4 days 24h Mar, Apr, 8 days Active Glucophage 500 MG 1 TABLET BY ORAL ROUTE 1 TIME PER DAY WITH MEALS TWICE DAILY. Active Doxycycline Hyclate 100 mg Orally twice a day 1 capsule 12h Mar, Apr, 7 days Active ProAir HFA 108 (90 Base) MCG/ACT Inhalation every 6 hrs 2 puffs as needed 6h Nov, Active Flexeril 10 mg take 1 tablet (10 mg) by oral route 3 times per day PRN pain Jan, Active Latanoprost 0.005 % Ophthalmic Once a day 1 drop into affected eye in the evening 24h Active Lipitor 80 MG Orally Once a day 1 tablet 24h Active Potassium Chloride Angie ER 20 meq Orally Twice a day 1 tablet 12h Active Hospital Bed as directed Mar, Active RESULTS No Results PROCEDURES No Known [...] problems 09/2015 Hospitalization History Acute dyspnea, muscle cramps--[facility] 03/04/16 Hospitalization History RLE Cellulitis, Hypokalemia, anemia-[facility] 09/29/15 Hospitalization History Lower edema 09/2016 Hospitalization History Received stitches ER 10/2016 Hospitalization History hallucinations/ dimished mental capasity 03/19-03/21/18
--- OUTSIDE RECORDS SUMMARY | 2018-07-12 08:07 | XMS REPORT ---
Author Author JAN HERNANDEZ [facility] Address [address] [place] [address] Care Team Providers Care Insulation Nozzleman Name Role Phone JAN HERNANDEZ Unavailable PROBLEMS Type Condition ICD9-CM Code [id number] Code Onset Dates Condition Status SNOMED Code Problem Hypothyroidism E03.9 Active 17064568 Problem Arthritis M19.90 Active 5089111 Problem Prediabetes R73.09 Active 2229273 Problem Restrictive lung disease J98.4 Active 90646508 Problem Anemia D64.9 Active 508372320 Problem Cor pulmonale I27.81 Active 99714973 Problem Back pain M54.9 Active 342778046 Problem Obesity hypoventilation syndrome E66.2 Active 529504018 Problem Coronary artery disease 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 pectoris I25.10 Active 5613581335935 Problem Body mass index (BMI) of 45.0-49.9 in adult Z68.42 Active 619400445 Problem Hypokalemia E87.6 Active 08739074 Problem Venous insufficiency I87.2 Active 95725497 Problem 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 Active 636024591 ALLERGIES No Information ENCOUNTERS Encounter Location Date Diagnosis [facility] [id number] [address] Apr, [facility] [id number] [place] [address] 99843- 7520 Apr, [facility] [id number] [place] [address] 00040 -4579 Apr, Swelling of right lower extremity M79.89 [facility] [id number] [place] [address] 34411- 8687 Apr, [facility] [id number] [place] [address] 19032- 1485 Mar, Bronchitis J40 [facility] [id number] [place] [address] 74397- 1832 Mar, [facility] [id number] [place] [address] 97634- 3638 Mar, 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 ; Encounter for immunization Z23 and Arthritis M19.90 [facility] [address] 7[address]67- 9882 Mar, Arthritis M19.90 and Back pain M54.9 [facility] [address] 35125- 8156 Mar, [facility] [id number] [place] [address] 53122- 0788 Mar, [facility] [address] 72697- 0520 Feb, Arthritis M19.90 [facility] [id number] [place] [address] 53758- 6197 Jan, Arthritis M19.90 [facility] [id number] [place] [address] 92194- 6929 Jan, Back pain M54.9 and Arthritis M19.90 [facility] [id number] [place] [address] 27926- 3123 Jan, [facility] [id number] [place] [address] 27935- 5464 Jan, Back pain M54.9 [facility] [id number] [place] [address] 56818- 0178 Jan, Arthritis M19.90 [facility] [id number] [place] [address] 83608- 3316 Jan, Back pain M54.9 [facility] [id number] [place] [address] 86742- 2356 Jan, [facility] [id number] [place] [address] 86080- 1799 Jan, Back pain M54.9 [facility] [id number] [place] [address] 89075- 0807 Dec, Ingrowing nail with infection L60.0 and Onychomycosis B35.1 [facility] [address] 74868- 2284 Dec, Arthritis M19.90 [facility] [id number] [place] [address] 57647- 5637 Dec, Ingrowing nail L60.0 [facility] [id number] [place] [address] 03636- 1790 Dec, Back pain M54.9 [facility] [id number] [place] [address] 49264 -1864 Dec, [facility] [id number] [place] [address] 55884- 6712 Dec, Back pain M54.9 [facility] [id number] [place] [address] 93405- 9131 Nov, Arthritis M19.90 [facility] [id number] [place] [address] 26213- 6817 Nov, [facility] [id number] [place] [address] 65642- 6170 Nov, Arthritis M19.90 ; Anemia D64.9 ; Restrictive lung disease J98.4 ; Weakness R53.1 and BMI 50.0-59.9, adult Z68.43 [facility] [id number] [place] [address] 06919- 4349 Nov, Arthritis M19.90 [facility] [id number] [place] [address] 16378- 8180 Nov, Back pain M54.9 [facility] [id number] [place] [address] 14870- 8097 October, Back pain M54.9 [facility] [id number] [place] [address] 70946- 3406 October, Back pain M54.9 [facility] [id number] [place] [address] 29136- 8575 Sep, Back pain M54.9 [facility] [id number] [place] [address] 38756- 7056 Sep, Back pain M54.9 [facility] [id number] [place] [address] 79778 -4936 Sep, [facility] [id number] [place] [address] 14346 -0324 Sep, [facility] [id number] [place] [address] 09019 -1257 Sep, Swelling of right lower extremity M79.89 and Cellulitis of right lower extremity L03.115 [facility] [id number] [place] [address] 60313- 5106 27 Aug, 2017 Back pain M54.9 [facility] [id number] [place] [address] 90103- 4542 15 Aug, 2017 Back pain M54.9 [facility] [id number] [place] [address] 30461- 0455 Aug, [facility] [id number] [place] [address] 81658- 8420 Aug, Cellulitis of right lower extremity L03.115 ; Ventral hernia without obstruction or gangrene K43.9 and BMI 50.0-59.9, adult Z68.43 [facility] [id number] [place] [address] 30020- 5540 28 Jul, 2017 Back pain M54.9 [facility] [id number] [place] [address] 01902- 7151 28 Jul, 2017 care home (current) 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 Z79.891 ; Arthritis M19.90 ; Back pain M54.9 ; Prediabetes R73.09 ; Hypothyroidism E03.9 ; Coronary artery disease 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 pectoris I25.10 and Anemia D64.9 [facility] [id number] [place] [address] 87595- 2912 27 Jul, 2017 care home (current) 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 Z79.891 ; Back pain M54.9 ; Arthritis M19.90 ; Prediabetes R73.09 ; Hypothyroidism E03.9 ; Coronary artery disease 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 pectoris I25.10 ; Anemia D64.9 and BMI 45.0-49.9, adult Z68.42 [facility] [id number] [place] [address] 47680- 1283 15 Jul, 2017 Back pain M54.9 [facility] [address] 97462- 8572 05 Jul, 2017 Back pain M54.9 [facility] [address] 83899- 8678 Jun, Back pain M54.9 [facility] [id number] [place] [address] 82232- 2961 Jun, Back pain M54.9 [facility] [id number] [place] [address] 66516 -2009 May, Skin cancer of face C44.300 and BMI 45.0-49.9, adult Z68.42 [facility] [address] 12118- 9309 May, [facility] [id number] [place] [address] 54792- 3800 May, Back pain M54.9 [facility] [address] 64594- 4666 May, Back pain M54.9 [facility] [address] [facility] [id number] [place] [address] 57403 2547 May, Back pain M54.9 [facility] [id number] [place] [address] 98749- 4012 Apr, Back pain M54.9 [facility] [id number] [place] [address] 63023 254 Apr, Back pain M54.9 [facility] [id number] [place] [address] 16998- 3797 Mar, Back pain M54.9 [facility] [address] 92262- 4155 Mar, Anemia D64.9 ; Encounter for immunization Z23 ; Arthritis M19.90 and Right inguinal hernia K40.90 [facility] [id number] [place] [address] 87303- 1628 Mar, Back pain M54.9 [facility] [id number] [place] [address] 71177- 6664 Feb, Back pain M54.9 [facility] [id number] [place] [address] 93745- 9850 Feb, Back pain M54.9 [facility] [id number] [place] [address] 57339- 2722 Jan, Back pain M54.9 [facility] [id number] [place] [address] 94677- 2547 Jan, Back pain M54.9 [facility] [id number] [place] [address] 94838- 5634 Jan, [facility] [id number] [place] [address] 07137- 4335 Jan, Back pain M54.9 [facility] [id number] [place] [address] 74219- 5069 Dec, Back pain M54.9 [facility] [id number] [place] [address] 09394 2546 Dec, Back pain M54.9 [facility] [address] [place] [address] 48124 2546 Dec, [facility] [id number] [place] [address] 09056 2540 Nov, Hypokalemia E87.6 [facility] [address] [place] [address] 84434 2549 Nov, Back pain M54.9 [facility] [id number] [place] [address] 37290 2546 Nov, [facility] [address] [place] [address] 58033- 1476 Nov, Arthritis M19.90 [facility] [id number] [place] [address] 17070 2543 Nov, Back pain M54.9 [facility] [address] [place] [address] 76976 2546 Nov, Generalized edema R60.1 [facility] [address] [place] [address] 60300 2549 Nov, Back pain M54.9 [facility] [address] [place] [address] 65194 2542 07 Nov, 2016 Pain in right knee M25.561 [facility] [address] [address] 2546 05 Nov, 2016 Encounter for removal of sutures Z48.02 and Pain in right knee M25.561 [facility] [address] [address] -2548 03 Nov, 2016 Abrasion of right foot, subsequent encounter S90.811D [facility] [id number] [place] [address] 42467 -4836 October, Toe abrasion, right, initial encounter S90.414A [facility] [id number] [place] [address] 66795- 8877 October, [facility] [id number] [place] [address] 49756- 7602 October, Back pain M54.9 [facility] [id number] [place] [address] 93555- 7887 October, Venous insufficiency I87.2 [facility] [id number] [place] [address] 95230- 7254 October, Pain in right knee M25.561 [facility] [id number] [place] [address] 40057- 9609 Sep, Back pain M54.9 [facility] [id number] [place] [address] 33382- 2384 Sep, Venous insufficiency I87.2 [facility] [id number] [place] [address] [id number] Sep, [facility] [id number] [place] [address] 77121 -2234 16 Sep, 2016 Leg edema, right R60.0 and Cellulitis of right lower extremity L03.115 [facility] [id number] [place] [address] 97707- 9771 14 Sep, 2016 Pedal edema R60.0 [facility] [id number] [place] [address] 47137- 2901 04 Sep, 2016 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 ; Pain in right knee M25.561 and Arthritis M19.90 [facility] [id number] [place] [address] 78373- 8941 Aug, Back pain M54.9 [facility] [id number] [place] [address] 62401- 0067 Aug, Back pain M54.9 [facility] [id number] [place] [address] 22266- 2480 Aug, [facility] [id number] [place] [address] 52286- 9303 10 Aug, 2016 Type 2 diabetes mellitus without complication E11.9 ; Restrictive lung disease J98.4 ; Arthritis M19.90 ; Back pain M54.9 ; Body mass index (BMI) of 45.0-49.9 in adult Z68.42 and Morbid (severe) obesity due to excess calories E66.01 [facility] [id number] [place] [address] 49337- 2335 Aug, Back pain M54.9 [facility] [id number] [place] [address] 62833- 7329 Aug, Back pain M54.9 [facility] [id number] [place] [address] 52507- 5348 07 Jul, 2016 [facility] [id number] [place] [address] 88382- 6545 Jul, Back pain M54.9 [facility] [id number] [place] [address] 55330- 5862 Jul, Back pain M54.9 [facility] [id number] [place] [address] 33038- 7941 Jun, Back pain M54.9 [facility] [id number] [place] [address] 50577- 2698 Jun, Back pain M54.9 [facility] [id number] [place] [address] 27075- 5045 May, Back pain M54.9 [facility] [id number] [place] [address] 28545- 3326 May, Back pain M54.9 [facility] [id number] [place] [address] 62192- 4963 May, Back pain M54.9 [facility] [id number] [place] [address] 97808- 2846 May, Back pain M54.9 [facility] [id number] [place] [address] 01008- 8941 May, [facility] [address] 04988- 3457 May, Back pain M54.9 and Pain in right knee M25.561 [facility] [id number] [place] [address] 60441- 9729 Apr, [facility] [id number] [place] [address] 65063- 3648 Apr, Type 2 diabetes mellitus without complication E11.9 ; Pain in right knee M25.561 and Pain in left knee M25.562 [facility] [id number] [place] [address] 83057- 7484 Mar, [facility] [id number] [place] [address] 44399- 2826 Mar, [facility] [id number] [place] [address] 17952- 9275 Mar, [facility] [id number] [place] [address] 01941- 5020 Mar, Restrictive lung disease J98.4 ; Anemia D64.9 and Cor pulmonale I27.81 [facility] [id number] [place] [address] 95909- 1328 Mar, [facility] [address] 89263- 3765 14 Mar, 2016 [facility] [id number] [place] [address] 65192- 5101 Mar, [facility] [address] 77594- 5914 30 Feb, 2016 [facility] [address] [facility] [id number] [place] [address]- 7926 29 Feb, 2016 [facility] [address] [facility] [id number] [place] [address] 02316- 4369 28 Feb, 2016 [facility] [address] [facility] [id number] [address]- 5261 27 Feb, 2016 Restrictive lung disease J98.4 [facility] [address] [facility] [id number] [address]- 1794 Feb, [facility] [address] [facility] [id number] [place] [address] 13286 -6365 22 Feb, 2016 [facility] [address] [facility] [id number] [place] [address] 58887- 4305 16 Feb, 2016 [facility] [id number] [place] [address] 42584- 5412 Jan, [facility] [address] [facility] [id number] [place] [address] 26035- 9873 Jan, [facility] [id number] [place] [address] 51950- 8080 Jan, [facility] [address] [address]- 8702 Jan, [facility] [address] [place] [address] 26868- 4036 Jan, Restrictive lung disease J98.4 ; Anemia D64.9 and Cor pulmonale I27.81 [facility] [address] [facility] [id number] [address]- 2814 Dec, [facility] [id number] [place] [address] 26378- 1888 Dec, [facility] [address] [address]- 3599 Nov, Arthritis M19.90 and Hypokalemia E87.6 [facility] [id number] [place] [address] 05598- 0060 Nov, Back pain M54.9 [facility] [id number] [place] [address] 92973 2546 October, Back pain M54.9 [facility] [id number] [place] [address] 31994- 9546 October, Back pain M54.9 [facility] [id number] [place] [address] 04903 2543 Sep, Scabies exposure Z20.89 [facility] [address] 53327- 6958 Sep, Restrictive lung disease J98.4 [facility] [id number] [place] [address] 25395- 1381 Sep, Back pain M54.9 [facility] [id number] [place] [address] 42958- 1237 Sep, Restrictive lung disease J98.4 [facility] [id number] [place] [address] 25742- 1090 Aug, [facility] [id number] [place] [address] 54501- 8282 Aug, [facility] [id number] [place] [address] 29020- 8403 Aug, [facility] [id number] [place] [address] 87159 2542 Aug, [facility] [id number] [place] [address] 27756- 5912 Aug, Back pain M54.9 [facility] [id number] [place] [address] 50099 2548 Jul, Anemia D64.9 and Prediabetes R73.09 [facility] [id number] [place] [address] 75663- 9593 Jul, Back pain M54.9 [facility] [id number] [place] [address] 30744- 6490 Jul, Back pain M54.9 [facility] [id number] [place] [address] 02650- 6905 Jul, [facility] [address] 57601- 6239 Jul, Bronchitis J40 and Anemia D64.9 [facility] [id number] [place] [address] 34300- 3548 Jun, [facility] [address] 05582- 1090 Jun, [facility] [id number] [place] [address] 85583- 5980 Jun, Bronchitis J40 and Anemia D64.9 [facility] [id number] [place] [address] 09551- 6987 Jun, [facility] [id number] [place] [address] 56491- 2179 Jun, Back pain M54.9 [facility] [id number] [place] [address] 58094- 9827 Jun, Anemia D64.9 [facility] [id number] [place] [address] 79463- 3000 Jun, Restrictive lung disease J98.4 ; Anemia D64.9 ; Hypothyroidism E03.9 ; Cor pulmonale I27.81 and Back pain M54.9 [facility] [id number] [place] [address] 30337- 4894 May, [facility] [id number] [place] [address] 47555- 5853 Apr, Anemia D64.9 ; Encounter for immunization Z23 and Restrictive lung disease J98.4 [facility] [address] [address]- 5650 Apr, [facility] [id number] [place] [address] 36962- 7464 Mar, [facility] [id number] [place] [address] 19281- 2462 Mar, Iron deficiency anemia D50.9 [facility] [id number] [place] [address] 42631- 3576 Mar, [facility] [id number] [place] [address] 20901- 4986 Mar, [facility] [id number] [place] [address] 26262- 3625 Mar, Anemia D64.9 [facility] [id number] [place] [address] 25367- 0882 Mar, [facility] [id number] [place] [address] 72772- 3288 Mar, Anemia D64.9 [facility] [id number] [place] [address] 20647- 0810 Mar, Restrictive lung disease J98.4 and Anemia D64.9 [facility] [id number] [place] [address] 85220- 5832 Mar, [facility] [id number] [place] [address] 83859- 9864 Mar, Anemia D64.9 [facility] [id number] [place] [address] 87738- 3328 Mar, Anemia D64.9 [facility] [id number] [place] [address] 11698- 0026 Mar, [facility] [id number] [place] [address] 15629- 6707 Mar, Diabetes mellitus E11.9 ; Bronchitis J40 and Anemia D64.9 [facility] [id number] [address] Feb, [facility] [id number] [address] Feb, [facility] [id number] [address] Feb, [facility] [id number] [place] [address] 02099- 7244 Feb, [facility] [id number] [address] Jan, [facility] [id number] [place] [address] 03208- 3162 Jan, [facility] [id number] [place] [address] 29820- 0907 Dec, Venous insufficiency 459.81 [facility] [id number] [address] Dec, [facility] [id number] [address] Dec, [facility] [id number] [address] Dec, Coronary atherosclerosis of unspecified type of vessel, venetie or graft 414.00 ; Unspecified anemia 285.9 and Generalized osteoarthrosis , unspecified site 715.00 [facility] [id number] [address] Nov, [facility] [address] [id number] [address] Nov, [facility] [id number] [address] Nov, [facility] [id number] [address] October, [facility] [id number] [address] October, Acute bronchitis 466.0 and Shortness of breath 786.05 [facility] [address] [facility] [id number] [place] [address] Sep, [facility] [address] [id number] [place] [address] Sep, [facility] [address] [facility] [id number] [address] Aug, [facility] [address] [facility] [id number] [place] [address] Aug, [facility] [id number] [place] [address] Jul, [facility] [id number] [place] [address] Jul, [facility] [id number] [address] Jul, [facility] [id number] [place] [address] Jul, [facility] [id number] [address] Jun, [facility] [id number] [address] Jun, [facility] [address] [id number] [address] Jun, [facility] [address] [id number] [address] Jun, [facility] [id number] [address]- [address] Jun, [facility] [address] [id number] [address]- [address] Jun, [facility] [address] [id number] [address] May, [facility] [place] [facility] [address] [id number] [place] [address]- 6[address] May, [facility] [place] [facility] [address] [id number] [place] [address]- 7206 May, [facility] [place] [facility] [address] [id number] [place] [address]- 2422 May, [facility] [place] [facility] [address] [id number] [place] [address]- 6384 Apr, [facility] [place] [facility] [address] [id number] [place] [address]- 9984 Apr, [facility] [place] [facility] [address] [id number] [place] [address]- 05[address] Apr, [facility] [place] [facility] [address] [id number] [place] [address]- 1107 Apr, [facility] [place] [facility] [address] [id number] [place] [address]- 4827 Apr, [facility] [place] [facility] [address] [id number] [place] [address]- 4397 Apr, [facility] [place] [facility] [address] [facility] [id number] [place] [address]- 7625 Mar, [facility] [place] [facility] [address] [id number] [place] [address]- 0885 Mar, [facility] [place] [facility] [address] [id number] [place] [address]- 3108 Mar, [facility] [place] [facility] [address] [id number] [place] [address]- 6587 Mar, [facility] [place] [facility] [address] [id number] [place] [address]- 7632 Mar, [facility] [place] [facility] [address] [id number] [place] [address]- 9108 Mar, [facility] [place] [facility] [address] [id number] [place] [address]- 4987 Mar, [facility] [place] [facility] [address] [id number] [place] [address] Mar, [facility] [place] [facility] [address] [id number] [place] [address]- 7348 Feb, [facility] [place] [facility] [address] [id number] [place] [address]- 6117 Feb, [facility] [place] [facility] [address] [id number] [place] [address]- 4866 Jan, [facility] [place] [facility] [address] [id number] [place] [address]- 3723 Jan, [facility] [place] [facility] [address] [id number] [place] [address]- 7933 Jan, [facility] [place] [facility] [address] [id number] [place] [address]- 4919 Jan, [facility] [place] [facility] [address] [id number] [place] [address]- 8988 Jan, [facility] [place] [facility] [address] [id number] [place] [address]- 7726 Jan, [facility] [place] [facility] [address] [id number] [place] [address]- 1770 Dec, [facility] [place] [facility] [address] [id number] [place] [address]- 2194 Dec, [facility] [place] [facility] [address] [id number] [place] [address]- 3274 Dec, [facility] [place] [facility] [address] [id number] [place] [address]- 9472 Dec, [facility] [place] [facility] [address] [id number] [place] [address]- 0878 Nov, [facility] [place] [facility] [address] [id number] [place] [address]- 4692 Nov, [facility] [place] [facility] [address] [id number] [place] [address]- 0712 Nov, [facility] [place] [facility] [address] [id number] [place] [address]- 4453 Nov, [facility] [place] [facility] [address] [id number] [place] [address]- 4992 Nov, [facility] [place] [facility] [address] [id number] [place] [address]- 5378 Nov, [facility] [place] [facility] [address] [id number] [place] [address]- 3806 Nov, [facility] [place] [facility] [address] [id number] [place] [address]- 9899 Nov, [facility] [place] [facility] [address] [id number] [place] [address]- 2714 Nov, [facility] [place] [facility] [address] [id number] [place] [address]- 3837 Nov, [facility] [place] [facility] [address] [id number] [place] [address]- 0789 Nov, [facility] [place] [facility] [address] [id number] [place] [address]- 1892 Nov, [facility] [place] [facility] [address] [id number] [place] [address]- 9038 October, [facility] [place] [facility] [address] [id number] [place] [address]- 8521 October, [facility] [place] [facility] [address] [id number] [place] [address]- 8603 October, [facility] [place] [facility] [address] [id number] [place] [address]- 5064 October, [facility] [place] [facility] [address] [id number] [place] [address]- 5081 October, [facility] [place] [facility] [address] [id number] [place] [address]- 8314 October, [facility] [address] [id number] [place] [address]- 4357 October, [facility] [place] [facility] [address] [id number] [place] [address]- 0832 October, [facility] [address] [id number] [place] [address]- 7072 October, [facility] [place] [facility] [address] [id number] [place] [address]- 8297 Sep, [facility] [address] [id number] [place] [address]- 5527 Sep, [facility] [address] [id number] [place] [address]- 6679 Sep, [facility] [address] [id number] [place] [address]- 6573 Sep, [facility] [address] [id number] [place] [address]- 7369 Sep, [facility] [place] [facility] [address] [id number] [place] [address]- 8087 Sep, [facility] [address] [id number] [place] [address]- 9801 Aug, [facility] [place] [facility] [address] [id number] [place] [address]- 7966 Aug, [facility] [place] [facility] [address] [id number] [place] [address]- 4342 Aug, [facility] [place] [facility] [address] [id number] [place] [address]- 8098 Aug, [facility] [place] [facility] [address] [id number] [place] [address]- 1980 Aug, [facility] [place] [facility] [address] [id number] [place] [address]- 5526 Aug, [facility] [place] [facility] [address] [id number] [place] [address]- 2914 Aug, [facility] [place] [facility] [address] [id number] [place] [address]- 2255 Aug, [facility] [place] [facility] [address] [id number] [place] [address]- 2771 Aug, [facility] [place] [facility] [address] [id number] [place] [address]- 3789 Aug, [facility] [place] [facility] [address] [id number] [place] [address]- 7193 Jul, [facility] [place] [facility] [address] [id number] [place] [address]- 3079 Jul, [facility] [place] [facility] [address] [id number] [place] [address]- 2069 Jun, [facility] [place] [facility] [address] [id number] [place] [address]- 7827 Jun, [facility] [place] [facility] [address] [id number] [place] [address]- 3159 Jun, [facility] [place] [facility] [address] [id number] [place] [address]- 9828 Jun, [facility] [place] [facility] [address] [id number] [place] [address]- 8885 Jun, [facility] [place] [facility] [address] [id number] [place] [address]- 7634 Jun, [facility] [place] [facility] [address] [id number] [place] [address]- 6475 Jun, [facility] [place] [facility] [address] [id number] [place] [address]- 6692 Jun, [facility] [place] [facility] [address] [id number] [place] [address]- 2090 May, [facility] [place] [facility] [address] [id number] [place] [address]- 1447 May, [facility] [address] [id number] [place] [address]- 8650 May, [facility] [place] [facility] [address] [id number] [place] [address]- 6686 May, [facility] [place] [facility] [address] [id number] [place] [address]- 3286 May, [facility] [place] [facility] [address] [id number] [place] [address]- 6173 May, [facility] [place] [facility] [address] [id number] [place] [address]- 4041 May, [facility] [place] [facility] [address] [id number] [place] [address]- 4234 May, [facility] [place] [facility] [address] [id number] [place] [address]- 3557 May, [facility] [place] [facility] [address] [id number] [place] [address]- 9599 Apr, [facility] [place] [facility] [address] [id number] [place] [address]- 4847 Apr, [facility] [place] [facility] [address] [id number] [place] [address]- 4773 Apr, [facility] [place] [facility] [address] [id number] [place] [address]- 7050 Apr, [facility] [place] [facility] [address] [id number] [place] [address]- 2548 Mar, [facility] [place] [facility] [address] [id number] [place] [address]- 5771 Mar, [facility] [place] [facility] [address] [id number] [place] [address]- 3282 Mar, [facility] [place] [facility] [address] [id number] [place] [address]- 3887 Mar, [facility] [place] [facility] [address] [id number] [place] [address]- 1524 30 Mar, 2012 [facility] [place] [facility] [address] [id number] [place] [address]- 6786 30 Mar, 2012 [facility] [place] [facility] [address] [id number] [place] [address]- 7226 29 Mar, 2012 [facility] [place] [facility] [address] [id number] [place] [address]- 1472 29 Mar, 2012 [facility] [place] [facility] [address] [id number] [place] [address]- 3023 Mar, 2012 [facility] [place] [facility] [address] [id number] [place] [address]- 9640 25 Mar, 2012 [facility] [place] [facility] [address] [id number] [place] [address]- 4411 18 Mar, 2012 [facility] [place] [facility] [address] [id number] [place] [address]- 0893 18 Mar, 2012 [facility] [place] [facility] [address] [id number] [place] [address]- 0834 18 Mar, 2012 [facility] [place] [facility] [address] [id number] [place] [address]- 0876 18 Mar, 2012 [facility] [place] [facility] [address] [id number] [place] [address]- 7293 18 Mar, 2012 [facility] [place] [facility] [address] [id number] [place] [address]- 4939 18 Mar, 2012 [facility] [place] [facility] [address] [id number] [place] [address]- 4955 17 Mar, 2012 [facility] [place] [facility] [address] [id number] [place] [address]- 3005 17 Mar, 2012 [facility] [place] [facility] [address] [id number] [place] [address]- 4547 15 Mar, 2012 [facility] [place] [facility] [address] [id number] [address]- 0694 15 Mar, 2013 [facility] [place] [facility] [address] [id number] [place] [address]- 1382 14 Mar, 2013 [facility] [place] [facility] [address] [id number] [address]- 0927 14 Mar, 2013 [facility] [place] [facility] [address] [id number] [place] [address]- 6895 14 Mar, 2013 [facility] [place] [facility] [address] [id number] [address]- 6751 14 Mar, 2013 [facility] [place] [facility] [address] [id number] [place] [address]- 8900 12 Mar, 2013 [facility] [place] [facility] [address] [id number] [address]- 5889 11 Mar, 2013 [facility] [place] [facility] [address] [id number] [place] [address]- 2166 11 Mar, 2013 [facility] [place] [facility] [address] [id number] [address]- 7776 10 Mar, 2013 [facility] [place] [facility] [address] [id number] [place] [address]- 5385 10 Mar, 2012 [facility] [place] [facility] [address] [id number] [place] [address]- 7920 10 Mar, 2013 [facility] [place] [facility] [address] [id number] [place] [address]- 8792 10 Mar, 2013 [facility] [place] [facility] [address] [id number] [address]- 5294 04 Mar, 2013 [facility] [place] [facility] [address] [id number] [address]- 8901 Mar, [facility] [place] [facility] [address] [id number] [address]- 2281 27 Feb, 2013 [facility] [place] [facility] [address] [id number] [place] [address]- 2048 11 Feb, 2013 [facility] [place] [facility] [address] [id number] [place] [address]- 3811 Feb, [facility] [address] [id number] [place] [address]- 2566 Feb, [facility] [address] [id number] [place] [address]- 5086 Jan, [facility] [address] [id number] [place] [address]- 8372 Jan, [facility] [address] [id number] [place] [address]- 0470 Jan, [facility] [address] [id number] [place] [address]- 2315 Jan, [facility] [address] [id number] [place] [address]- 4664 Jan, [facility] [address] [id number] [place] [address]- 2251 Jan, [facility] [address] [id number] [place] [address]- 3635 Dec, [facility] [address] [id number] [place] [address]- 0330 Dec, [facility] [address] [id number] [place] [address]- 9305 Dec, [facility] [place] [facility] [address] [id number] [place] [address]- 2541 Dec, [facility] [address] [id number] [place] [address]- 2848 Dec, [facility] [place] [facility] [address] [id number] [place] [address]- 3440 Dec, [facility] [place] [facility] [address] [id number] [place] [address] 2543 Dec, [facility] [place] [facility] [address] [id number] [place] [address]- 9889 Dec, [facility] [address] [id number] [place] [address]- 6494 Dec, [facility] [address] [id number] [place] [address]- 1308 Dec, [facility] [address] [id number] [place] [address]- 8018 Dec, [facility] [address] [id number] [place] [address]- 2709 October, [facility] [address] [id number] [place] [address]- 6444 October, [facility] [address] [id number] [place] [address]- 4243 October, [facility] [address] [id number] [place] [address]- 0355 October, [facility] [address] [id number] [place] [address]- 7663 30 Sep, 2012 [facility] [address] [id number] [place] [address]- 0290 Sep, [facility] [address] [id number] [place] [address]- 2146 29 Sep, 2012 [facility] [place] [facility] [address] [id number] [place] [address]- 9430 Sep, [facility] [place] [facility] [address] [id number] [place] [address]- 8048 25 Sep, 2012 [facility] [place] [facility] [address] [id number] [place] [address]- 8261 16 Sep, 2012 [facility] [place] [facility] [address] [id number] [place] [address]- 4921 15 Sep, 2012 [facility] [place] [facility] [address] [id number] [place] [address]- 5927 14 Sep, 2012 [facility] [place] [facility] [address] [id number] [place] [address]- 9176 Sep, [facility] [address] [facility] [id number] [place] [address]- 2435 Sep, [facility] [address] [facility] [id number] [place] [address]- 3330 Sep, IMMUNIZATIONS No Known Immunizations SOCIAL HISTORY Never Assessed REASON FOR VISIT Controlled Med Refill PLAN OF CARE VITAL SIGNS MEDICATIONS Medication Instructions Dosage Frequency Start Date End Date Duration Status Fentanyl 75 MCG/HR Transdermal once every 3 days. 1 patch to skin Apr Active RESULTS No Results PROCEDURES No Known [...] problems 09/2015 Hospitalization History Acute dyspnea, muscle cramps--[facility] 03/04/16 Hospitalization History RLE Cellulitis, Hypokalemia, anemia-[facility] 09/29/15 Hospitalization History Lower edema 09/2016 Hospitalization History Received stitches ER 10/2016 Hospitalization History hallucinations/ dimished mental capasity 03/19-03/21/18
--- OUTSIDE RECORDS SUMMARY | 2018-07-12 08:08 | XMS REPORT ---
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 Name Role Phone JAN HERNANDEZ Unavailable PROBLEMS Type Condition ICD9-CM Code SNH90-EM Code Onset Dates Condition Status SNOMED Code Problem Hypothyroidism E03.9 Active 51458131 Problem Arthritis M19.90 Active 4623661 Problem Prediabetes R73.09 Active 7148304 Problem Restrictive lung disease J98.4 Active 18307286 Problem Anemia D64.9 Active 567354864 Problem Cor pulmonale I27.81 Active 92398355 Problem Back pain M54.9 Active 050320316 Problem Obesity hypoventilation syndrome E66.2 Active 334519653 Problem Coronary artery disease involving [place] coronary artery of [place] heart without angina pectoris I25.10 Active 7218055487432 Problem Body mass index (BMI) of 45.0-49.9 in adult Z68.42 Active 049538145 Problem Hypokalemia E87.6 Active 69884807 Problem Venous insufficiency I87.2 Active 90424074 Problem 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 Active 204003449 ALLERGIES No Information ENCOUNTERS Encounter Location Date Diagnosis [facility] [address], [place] [address] 59[address] Apr, [facility] [id number] [place] [address] 52972- 8034 Apr, [facility] [id number] [place] [address] 31094 -7064 Apr, Swelling of right lower extremity M79.89 [facility] [id number] [place] [address] 43115- 1371 Apr, [facility] [id number] [place] [address] 57327- 4054 Mar, Bronchitis J40 [facility] [id number] [place] [address] 96605- 3251 Mar, [facility] [id number] [place] [address] 02664- 9256 Mar, 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 ; Encounter for immunization Z23 and Arthritis M19.90 [facility] [address] 59807- 4734 Mar, Arthritis M19.90 and Back pain M54.9 [facility] [address] 04976- 9234 Mar, [facility] [id number] [place] [address] 01860- 9822 Mar, [facility] [address] 30451- 4356 Feb, Arthritis M19.90 [facility] [id number] [place] [address] 33658- 8280 Jan, Arthritis M19.90 [facility] [id number] [place] [address] 62021- 7562 Jan, Back pain M54.9 and Arthritis M19.90 [facility] [id number] [place] [address] 01500- 5348 Jan, [facility] [id number] [place] [address] 33619- 2239 Jan, Back pain M54.9 [facility] [id number] [place] [address] 18377- 4945 Jan, Arthritis M19.90 [facility] [id number] [place] [address] 41928- 9113 Jan, Back pain M54.9 [facility] [id number] [place] [address] 80709- 7379 Jan, [facility] [id number] [place] [address] 71221- 7510 Jan, Back pain M54.9 [facility] [id number] [place] [address] 85034- 1488 Dec, Ingrowing nail with infection L60.0 and Onychomycosis B35.1 [facility] [address] 10488- 0206 Dec, Arthritis M19.90 [facility] [id number] [place] [address] 84281- 1434 Dec, Ingrowing nail L60.0 [facility] [id number] [place] [address] 96879- 6172 Dec, Back pain M54.9 [facility] [id number] [place] [address] 31536 -9725 Dec, [facility] [id number] [place] [address] 38033- 0442 Dec, Back pain M54.9 [facility] [id number] [place] [address] 04322- 4294 Nov, Arthritis M19.90 [facility] [id number] [place] [address] 29067- 7969 Nov, [facility] [id number] [place] [address] 25325- 3463 Nov, Arthritis M19.90 ; Anemia D64.9 ; Restrictive lung disease J98.4 ; Weakness R53.1 and BMI 50.0-59.9, adult Z68.43 [facility] [id number] [place] [address] 38829- 9483 Nov, Arthritis M19.90 [facility] [id number] [place] [address] 26753- 5510 Nov, Back pain M54.9 [facility] [id number] [place] [address] 14213- 8799 October, Back pain M54.9 [facility] [id number] [place] [address] 04689- 5331 October, Back pain M54.9 [facility] [id number] [place] [address] 17145- 9198 Sep, Back pain M54.9 [facility] [id number] [place] [address] 10457- 6560 Sep, Back pain M54.9 [facility] [id number] [place] [address] 09600 -8196 Sep, [facility] [id number] [place] [address] 49465 -1663 Sep, [facility] [id number] [place] [address] 81937 -6598 Sep, Swelling of right lower extremity M79.89 and Cellulitis of right lower extremity L03.115 [facility] [facility] [id number] [place] [address] 07435- 6558 27 Aug, 2017 Back pain M54.9 [facility] [id number] [place] [address] 54051- 2984 15 Aug, 2017 Back pain M54.9 [facility] [id number] [place] [address] 85717- 3824 Aug, [facility] [id number] [place] [address] 60505- 8342 Aug, Cellulitis of right lower extremity L03.115 ; Ventral hernia without obstruction or gangrene K43.9 and BMI 50.0-59.9, adult Z68.43 [facility] [id number] [place] [address] 72153- 4261 28 Jul, 2017 Back pain M54.9 [facility] [id number] [place] [address] 92847- 1910 28 Jul, 2017 assisted (current) 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 Z79.891 ; Arthritis M19.90 ; Back pain M54.9 ; Prediabetes R73.09 ; Hypothyroidism E03.9 ; Coronary artery disease involving [place] coronary artery of [place] heart without angina pectoris I25.10 and Anemia D64.9 [facility] [id number] [place] [address] 33312- 3323 27 Jul, 2017 assisted (current) 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 Z79.891 ; Back pain M54.9 ; Arthritis M19.90 ; Prediabetes R73.09 ; Hypothyroidism E03.9 ; Coronary artery disease involving [place] coronary artery of [place] heart without angina pectoris I25.10 ; Anemia D64.9 and BMI 45.0-49.9, adult Z68.42 [facility] [id number] [place] [address] 68223- 5537 15 Jul, 2017 Back pain M54.9 [facility] [address] 65210- 2739 05 Jul, 2017 Back pain M54.9 [facility] [address] 28759- 5257 Jun, Back pain M54.9 [facility] [id number] [place] [address] 87930- 8994 Jun, Back pain M54.9 [facility] [id number] [place] [address] 70954 -6122 May, Skin cancer of face C44.300 and BMI 45.0-49.9, adult Z68.42 [facility] [address] 23223- 2491 May, [facility] [id number] [place] [address] 62865- 5556 May, Back pain M54.9 [facility] [address] 66465- 4977 May, Back pain M54.9 [facility] [address] [facility] [id number] [place] [address] 25589 2540 May, Back pain M54.9 [facility] [id number] [place] [address] 75604- 8989 Apr, Back pain M54.9 [facility] [id number] [place] [address] 32974 2544 Apr, Back pain M54.9 [facility] [id number] [place] [address] 57263- 1653 Mar, Back pain M54.9 [facility] [address] 81283- 8704 Mar, Anemia D64.9 ; Encounter for immunization Z23 ; Arthritis M19.90 and Right inguinal hernia K40.90 [facility] [id number] [place] [address] 23040- 9081 Mar, Back pain M54.9 [facility] [id number] [place] [address] 87952- 6100 Feb, Back pain M54.9 [facility] [id number] [place] [address] 33656- 9603 Feb, Back pain M54.9 [facility] [id number] [place] [address] 30533- 3061 Jan, Back pain M54.9 [facility] [id number] [place] [address] 27927- 2540 Jan, Back pain M54.9 [facility] [id number] [place] [address] 16032- 3694 Jan, [facility] [id number] [place] [address] 01062- 0623 Jan, Back pain M54.9 [facility] [id number] [place] [address] 39252- 7833 Dec, Back pain M54.9 [facility] [id number] [place] [address] 16328 2546 Dec, Back pain M54.9 [facility] [id number] [place] [address] 69466 2546 Dec, [facility] [id number] [place] [address] 21372 2548 Nov, Hypokalemia E87.6 [facility] [id number] [place] [address] 43884 2543 Nov, Back pain M54.9 [facility] [id number] [place] [address] 46255 2546 Nov, [facility] [id number] [place] [address] 04953- 9556 Nov, Arthritis M19.90 [facility] [id number] [place] [address] 46272 2549 Nov, Back pain M54.9 [facility] [id number] [place] [address] 47248 2546 Nov, Generalized edema R60.1 [facility] [address] [place] [address] 43039 2540 Nov, Back pain M54.9 [facility] [address] [place] [address] 37008 2541 07 Nov, 2016 Pain in right knee M25.561 [facility] [address], [place] [address] 2546 05 Nov, 2016 Encounter for removal of sutures Z48.02 and Pain in right knee M25.561 [facility] [address], [place] [address] -2549 03 Nov, 2016 Abrasion of right foot, subsequent encounter S90.811D [facility] [id number] [place] [address] 13626 -1567 October, Toe abrasion, right, initial encounter S90.414A [facility] [id number] [place] [address] 30619- 5111 October, [facility] [id number] [place] [address] 88104- 3151 October, Back pain M54.9 [facility] [id number] [place] [address] 27595- 0020 October, Venous insufficiency I87.2 [facility] [facility] [id number] [place] [address] 83843- 8855 October, Pain in right knee M25.561 [facility] [id number] [place] [address] 70277- 8784 Sep, Back pain M54.9 [facility] [id number] [place] [address] 55737- 9013 Sep, Venous insufficiency I87.2 [facility] [id number] [place] [address] [id number] Sep, [facility] [id number] [place] [address] 71261 -8186 16 Sep, 2016 Leg edema, right R60.0 and Cellulitis of right lower extremity L03.115 [facility] [id number] [place] [address] 24783- 6255 14 Sep, 2016 Pedal edema R60.0 [facility] [id number] [place] [address] 56801- 1829 04 Sep, 2016 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 ; Pain in right knee M25.561 and Arthritis M19.90 [facility] [id number] [place] [address] 12509- 1824 Aug, Back pain M54.9 [facility] [id number] [place] [address] 40282- 8295 Aug, Back pain M54.9 [facility] [id number] [place] [address] 69691- 7376 Aug, [facility] [id number] [place] [address] 43198- 9592 10 Aug, 2016 Type 2 diabetes mellitus without complication E11.9 ; Restrictive lung disease J98.4 ; Arthritis M19.90 ; Back pain M54.9 ; Body mass index (BMI) of 45.0-49.9 in adult Z68.42 and Morbid (severe) obesity due to excess calories E66.01 [facility] [id number] [place] [address] 03996- 8274 Aug, Back pain M54.9 [facility] [id number] [place] [address] 30746- 5011 Aug, Back pain M54.9 [facility] [id number] [place] [address] 32860- 4255 07 Jul, 2016 [facility] [id number] [place] [address] 27878- 4058 Jul, Back pain M54.9 [facility] [id number] [place] [address] 42303- 9368 Jul, Back pain M54.9 [facility] [id number] [place] [address] 66523- 4168 Jun, Back pain M54.9 [facility] [id number] [place] [address] 66969- 6324 Jun, Back pain M54.9 [facility] [id number] [place] [address] 30283- 5331 May, Back pain M54.9 [facility] [id number] [place] [address] 48860- 7872 May, Back pain M54.9 [facility] [id number] [place] [address] 58576- 5082 May, Back pain M54.9 [facility] [id number] [place] [address] 56691- 9888 May, Back pain M54.9 [facility] [id number] [place] [address] 96740- 4152 May, [facility] [address] 15002- 3446 May, Back pain M54.9 and Pain in right knee M25.561 [facility] [id number] [place] [address] 54881- 2127 Apr, [facility] [id number] [place] [address] 35249- 7305 Apr, Type 2 diabetes mellitus without complication E11.9 ; Pain in right knee M25.561 and Pain in left knee M25.562 [facility] [id number] [place] [address] 56001- 0364 Mar, [facility] [id number] [place] [address] 92260- 8864 Mar, [facility] [id number] [place] [address] 83983- 6027 Mar, [facility] [id number] [place] [address] 74908- 8781 Mar, Restrictive lung disease J98.4 ; Anemia D64.9 and Cor pulmonale I27.81 [facility] [id number] [place] [address] 10217- 3405 Mar, [facility] [address] 89608- 7754 14 Mar, 2016 [facility] [id number] [place] [address] 03793- 4902 Mar, [facility] [address] 51469- 1591 30 Feb, 2016 [facility] [address] [facility] [id number] [place] [address]- 7838 29 Feb, 2016 [facility] [address] [facility] [id number] [place] [address] 61689- 3505 28 Feb, 2016 [facility] [address] [facility] [id number] [address]- 3350 27 Feb, 2016 Restrictive lung disease J98.4 [facility] [address] [facility] [id number], [place] [address]- 0845 Feb, [facility] [address] [facility] [id number] [place] [address] 20240 -5638 22 Feb, 2016 [facility] [address] [facility] [id number] [place] [address] 24951- 9469 16 Feb, 2016 [facility] [id number] [place] [address] 05487- 7731 Jan, [facility] [address] [facility] [id number] [place] [address] 92391- 3894 Jan, [facility] [id number] [place] [address] 74376- 9287 Jan, [facility] [address], [place] [address]- 2544 Jan, [facility] [address] [place] [address] 72999- 3683 Jan, Restrictive lung disease J98.4 ; Anemia D64.9 and Cor pulmonale I27.81 [facility] [address] [facility] [id number], [place] [address]- 3386 Dec, [facility] [id number] [place] [address] 13875- 3824 Dec, [facility] [address], [place] [address]- 3630 Nov, Arthritis M19.90 and Hypokalemia E87.6 [facility] [id number] [place] [address] 01998- 1968 Nov, Back pain M54.9 [facility] [id number] [place] [address] 71923 2546 October, Back pain M54.9 [facility] [id number] [place] [address] 18656- 9976 October, Back pain M54.9 [facility] [id number] [place] [address] 44940 2542 Sep, Scabies exposure Z20.89 [facility] [address] 59215- 1199 Sep, Restrictive lung disease J98.4 [facility] [id number] [place] [address] 12457- 5148 Sep, Back pain M54.9 [facility] [id number] [place] [address] 34491- 0528 Sep, Restrictive lung disease J98.4 [facility] [id number] [place] [address] 85161- 6334 Aug, [facility] [id number] [place] [address] 83533- 2671 Aug, [facility] [id number] [place] [address] 77011- 0432 Aug, [facility] [id number] [place] [address] 89542 2540 Aug, [facility] [id number] [place] [address] 19125- 1258 Aug, Back pain M54.9 [facility] [id number] [place] [address] 63072 2548 Jul, Anemia D64.9 and Prediabetes R73.09 [facility] [id number] [place] [address] 59940- 5797 Jul, Back pain M54.9 [facility] [id number] [place] [address] 16592- 7009 Jul, Back pain M54.9 [facility] [id number] [place] [address] 81843- 5155 Jul, [facility] [address] 87610- 8372 Jul, Bronchitis J40 and Anemia D64.9 [facility] [id number] [place] [address] 04004- 7440 Jun, [facility] [address] 40000- 3654 Jun, [facility] [id number] [place] [address] 77629- 2589 Jun, Bronchitis J40 and Anemia D64.9 [facility] [id number] [place] [address] 52574- 1488 Jun, [facility] [id number] [place] [address] 26750- 9134 Jun, Back pain M54.9 [facility] [id number] [place] [address] 33255- 1443 Jun, Anemia D64.9 [facility] [id number] [place] [address] 81328- 1435 Jun, Restrictive lung disease J98.4 ; Anemia D64.9 ; Hypothyroidism E03.9 ; Cor pulmonale I27.81 and Back pain M54.9 [facility] [id number] [place] [address] 63255- 2715 May, [facility] [id number] [place] [address] 30633- 2186 Apr, Anemia D64.9 ; Encounter for immunization Z23 and Restrictive lung disease J98.4 [facility] [id number] [address] Apr, [facility] [id number] [place] [address] 19986- 7800 Mar, [facility] [id number] [place] [address] 87814- 4311 Mar, Iron deficiency anemia D50.9 [facility] [id number] [place] [address] 77596- 1309 Mar, [facility] [id number] [place] [address] 33106- 6774 Mar, [facility] [id number] [place] [address] 71711- 5571 Mar, Anemia D64.9 [facility] [id number] [place] [address] 81724- 1911 Mar, [facility] [id number] [place] [address] 08185- 9022 Mar, Anemia D64.9 [facility] [id number] [place] [address] 25683- 6616 Mar, Restrictive lung disease J98.4 and Anemia D64.9 [facility] [id number] [place] [address] 29121- 7515 Mar, [facility] [id number] [place] [address] 29386- 2709 Mar, Anemia D64.9 [facility] [id number] [place] [address] 83310- 8580 Mar, Anemia D64.9 [facility] [id number] [place] [address] 89910- 2992 Mar, [facility] [id number] [place] [address] 38267- 3998 Mar, Diabetes mellitus E11.9 ; Bronchitis J40 and Anemia D64.9 [facility] [id number], [place] [address] 1620 Feb, [facility] [id number] [place] [address] 3966 Feb, [facility] [id number] [place] [address] 3037 Feb, [facility] [id number] [place] [address] 97004- 8130 Feb, [facility] [id number] [place] [address] 9765 Jan, [facility] [id number] [place] [address] 39563- 8761 Jan, [facility] [id number] [place] [address] 52018- 4751 Dec, Venous insufficiency 459.81 [facility] [id number], [place] [address] 5428 Dec, [facility] [id number] [place] [address] 1111 Dec, [facility] [facility] [id number], [place] [address] Dec, Coronary atherosclerosis of unspecified type of vessel, [place] or graft 414.00 ; Unspecified anemia 285.9 and Generalized osteoarthrosis , unspecified site 715.00 [facility] [id number], [place] [address] Nov, [facility] [id number], [place] [address] Nov, [facility] [id number], [place] [address] Nov, [facility] [id number], [place] [address] October, [facility] [id number], [place] [address] October, Acute bronchitis 466.0 and Shortness of breath 786.05 [facility] [address] [facility] [id number] [place] [address] Sep, [facility] [id number] [place] [address] Sep, [facility] [address] [facility] [id number], [place] [address] Aug, [facility] [address] [facility] [id number] [place] [address] Aug, [facility] [id number] [place] [address] Jul, [facility] [id number] [place] [address] Jul, [facility] [id number], [place] [address] Jul, [facility] [id number] [place] [address] 14[address] Jul, [facility] [id number], [place] [address] Jun, [facility] [id number], [place] [address] 1621 Jun, [facility] [id number], [place] [address] 24[address] Jun, [facility] [id number], [place] [address] Jun, [facility] [id number], [place] [address] Jun, [facility] [id number], [place] [address] 2006 Jun, [facility] [address] [id number] [place] [address]- 3[address] May, [facility] [place] [facility] [address] [id number] [place] [address]- 6065 May, [facility] [place] [facility] [address] [id number] [place] [address]- 5807 May, [facility] [place] [facility] [address] [id number] [place] [address]- 0195 May, [facility] [place] [facility] [address] [id number] [place] [address]- 1751 Apr, [facility] [place] [facility] [address] [id number] [place] [address]- 7390 Apr, [facility] [place] [facility] [address] [id number] [place] [address]- 7867 Apr, [facility] [place] [facility] [address] [id number] [place] [address]- 7927 Apr, [facility] [place] [facility] [address] [id number] [place] [address]- 0375 Apr, [facility] [place] [facility] [address] [id number] [place] [address]- 6459 Apr, [facility] [place] [facility] [address] [facility] [id number] [place] [address]- 1245 Mar, [facility] [place] [facility] [address] [id number] [place] [address]- 7561 Mar, [facility] [place] [facility] [address] [id number] [place] [address]- 4406 Mar, [facility] [place] [facility] [address] [id number] [place] [address]- 7593 Mar, [facility] [place] [facility] [address] [id number] [place] [address]- 1409 Mar, [facility] [place] [facility] [address] [id number] [place] [address]- 4932 Mar, [facility] [place] [facility] [address] [id number] [place] [address]- 9748 Mar, [facility] [place] [facility] [address] [id number] [place] [address] Mar, [facility] [place] [facility] [address] [id number] [place] [address]- 7131 Feb, [facility] [place] [facility] [address] [id number] [place] [address]- 9814 Feb, [facility] [place] [facility] [address] [id number] [place] [address]- 6497 Jan, [facility] [place] [facility] [address] [id number] [place] [address]- 2299 Jan, [facility] [place] [facility] [address] [id number] [place] [address]- 6285 Jan, [facility] [place] [facility] [address] [id number] [place] [address]- 7529 Jan, [facility] [place] [facility] [address] [id number] [place] [address]- 6058 Jan, [facility] [place] [facility] [address] [id number] [place] [address]- 5451 Jan, [facility] [place] [facility] [address] [id number] [place] [address]- 2667 Dec, [facility] [place] [facility] [address] [id number] [place] [address]- 9211 Dec, [facility] [place] [facility] [address] [id number] [place] [address]- 3150 Dec, [facility] [place] [facility] [address] [id number] [place] [address]- 0461 Dec, [facility] [place] [facility] [address] [id number] [place] [address]- 1023 Nov, [facility] [place] [facility] [address] [id number] [place] [address]- 4081 Nov, [facility] [place] [facility] [address] [id number] [place] [address]- 7690 Nov, [facility] [place] [facility] [address] [id number] [place] [address]- 3354 Nov, [facility] [place] [facility] [address] [id number] [place] [address]- 3969 Nov, [facility] [place] [facility] [address] [id number] [place] [address]- 5145 Nov, [facility] [place] [facility] [address] [id number] [place] [address]- 5826 Nov, [facility] [place] [facility] [address] [id number] [place] [address]- 8895 Nov, [facility] [place] [facility] [address] [id number] [place] [address]- 9392 Nov, [facility] [place] [facility] [address] [id number] [place] [address]- 9073 Nov, [facility] [place] [facility] [address] [id number] [place] [address]- 5020 Nov, [facility] [place] [facility] [address] [id number] [place] [address]- 5451 Nov, [facility] [place] [facility] [address] [id number] [place] [address]- 1342 October, [facility] [place] [facility] [address] [id number] [place] [address]- 5619 October, [facility] [place] [facility] [address] [id number] [place] [address]- 4145 October, [facility] [place] [facility] [address] [id number] [place] [address]- 1906 October, [facility] [place] [facility] [address] [id number] [place] [address]- 4022 October, [facility] [place] [facility] [address] [id number] [place] [address]- 7689 October, [facility] [address] [id number] [place] [address]- 2518 October, [facility] [place] [facility] [address] [id number] [place] [address]- 9488 October, [facility] [address] [id number] [place] [address]- 0621 October, [facility] [place] [facility] [address] [id number] [place] [address]- 8734 Sep, [facility] [address] [id number] [place] [address]- 2755 Sep, [facility] [address] [id number] [place] [address]- 2407 Sep, [facility] [address] [id number] [place] [address]- 3830 Sep, [facility] [address] [id number] [place] [address]- 3746 Sep, [facility] [place] [facility] [address] [id number] [place] [address]- 1424 Sep, [facility] [address] [id number] [place] [address]- 2683 Aug, [facility] [place] [facility] [address] [id number] [place] [address]- 5827 Aug, [facility] [place] [facility] [address] [id number] [place] [address]- 3289 Aug, [facility] [place] [facility] [address] [id number] [place] [address]- 3226 Aug, [facility] [place] [facility] [address] [id number] [place] [address]- 4719 Aug, [facility] [place] [facility] [address] [id number] [place] [address]- 5771 Aug, [facility] [place] [facility] [address] [id number] [place] [address]- 0090 Aug, [facility] [place] [facility] [address] [id number] [place] [address]- 2451 Aug, [facility] [place] [facility] [address] [id number] [place] [address]- 8851 Aug, [facility] [place] [facility] [address] [id number] [place] [address]- 1555 Aug, [facility] [place] [facility] [address] [id number] [place] [address]- 1770 Jul, [facility] [place] [facility] [address] [id number] [place] [address]- 3589 Jul, [facility] [place] [facility] [address] [id number] [place] [address]- 8329 Jun, [facility] [place] [facility] [address] [id number] [place] [address]- 6213 Jun, [facility] [place] [facility] [address] [id number] [place] [address]- 8499 Jun, [facility] [place] [facility] [address] [id number] [place] [address]- 9360 Jun, [facility] [place] [facility] [address] [id number] [place] [address]- 8062 Jun, [facility] [place] [facility] [address] [id number] [place] [address]- 8190 Jun, [facility] [place] [facility] [address] [id number] [place] [address]- 1725 Jun, [facility] [place] [facility] [address] [id number] [place] [address]- 1366 Jun, [facility] [place] [facility] [address] [id number] [place] [address]- 2138 May, [facility] [place] [facility] [address] [id number] [place] [address]- 2707 May, [facility] [address] [id number] [place] [address]- 1374 May, [facility] [place] [facility] [address] [id number] [place] [address]- 7546 May, [facility] [place] [facility] [address] [id number] [place] [address]- 2816 May, [facility] [place] [facility] [address] [id number] [place] [address]- 7185 May, [facility] [place] [facility] [address] [id number] [place] [address]- 3327 May, [facility] [place] [facility] [address] [id number] [place] [address]- 5662 May, [facility] [place] [facility] [address] [id number] [place] [address]- 4948 May, [facility] [place] [facility] [address] [id number] [place] [address]- 5332 Apr, [facility] [place] [facility] [address] [id number] [place] [address]- 6306 Apr, [facility] [place] [facility] [address] [id number] [place] [address]- 7663 Apr, [facility] [place] [facility] [address] [id number] [place] [address]- 1898 Apr, [facility] [place] [facility] [address] [id number] [place] [address]- 2544 Mar, [facility] [place] [facility] [address] [id number] [place] [address]- 5880 Mar, [facility] [place] [facility] [address] [id number] [place] [address]- 2302 Mar, [facility] [place] [facility] [address] [id number] [place] [address]- 3317 Mar, [facility] [place] [facility] [address] [id number] [place] [address]- 0894 30 Mar, 2012 [facility] [place] [facility] [address] [id number] [place] [address]- 1893 30 Mar, 2012 [facility] [place] [facility] [address] [id number] [place] [address]- 3154 29 Mar, 2012 [facility] [place] [facility] [address] [id number] [place] [address]- 1737 29 Mar, 2012 [facility] [place] [facility] [address] [id number] [place] [address]- 0163 Mar, 2012 [facility] [place] [facility] [address] [id number] [place] [address]- 5446 25 Mar, 2012 [facility] [place] [facility] [address] [id number] [place] [address]- 9552 18 Mar, 2012 [facility] [place] [facility] [address] [id number] [place] [address]- 0555 18 Mar, 2012 [facility] [place] [facility] [address] [id number] [place] [address]- 3397 18 Mar, 2012 [facility] [place] [facility] [address] [id number] [place] [address]- 6883 18 Mar, 2012 [facility] [place] [facility] [address] [id number] [place] [address]- 6030 18 Mar, 2012 [facility] [place] [facility] [address] [id number] [place] [address]- 1465 18 Mar, 2012 [facility] [place] [facility] [address] [id number] [place] [address]- 6746 17 Mar, 2012 [facility] [place] [facility] [address] [id number] [place] [address]- 9673 17 Mar, 2012 [facility] [place] [facility] [address] [id number] [place] [address]- 3521 15 Mar, 2012 [facility] [place] [facility] [address] [id number], [place] [address]- 4019 15 Mar, 2013 [facility] [place] [facility] [address] [id number] [place] [address]- 3966 14 Mar, 2013 [facility] [place] [facility] [address] [id number], [place] [address]- 2354 14 Mar, 2013 [facility] [place] [facility] [address] [id number] [place] [address]- 9349 14 Mar, 2013 [facility] [place] [facility] [address] [id number], [place] [address]- 4804 14 Mar, 2013 [facility] [place] [facility] [address] [id number] [place] [address]- 9404 12 Mar, 2013 [facility] [place] [facility] [address] [id number], [place] [address]- 5879 11 Mar, 2013 [facility] [place] [facility] [address] [id number], [place] [address]- 4545 11 Mar, 2013 [facility] [place] [facility] [address] [id number], [place] [address]- 3717 10 Mar, 2013 [facility] [place] [facility] [address] [id number], [place] [address]- 2651 10 Mar, 2012 [facility] [place] [facility] [address] [id number], [place] [address]- 9130 10 Mar, 2013 [facility] [place] [facility] [address] [id number], [place] [address]- 7581 10 Mar, 2013 [facility] [place] [facility] [address] [id number], [place] [address]- 7434 04 Mar, 2013 [facility] [place] [facility] [address] [id number], [place] [address]- 4506 Mar, [facility] [place] [facility] [address] [id number], [place] [address]- 9925 27 Feb, 2013 [facility] [place] [facility] [address] [id number], [place] [address]- 2943 11 Feb, 2013 [facility] [place] [facility] [address] [id number] [place] [address]- 6577 Feb, [facility] [address] [id number] [place] [address]- 6372 Feb, [facility] [address] [id number] [place] [address]- 4860 Jan, [facility] [address] [id number] [place] [address]- 7699 Jan, [facility] [address] [id number] [place] [address]- 5965 Jan, [facility] [address] [id number] [place] [address]- 8500 Jan, [facility] [address] [id number] [place] [address]- 8675 Jan, [facility] [address] [id number] [place] [address]- 1774 Jan, [facility] [address] [id number] [place] [address]- 8936 Dec, [facility] [address] [id number] [place] [address]- 6649 Dec, [facility] [address] [id number] [place] [address]- 9021 Dec, [facility] [place] [facility] [address] [id number] [place] [address]- 2540 Dec, [facility] [address] [id number] [place] [address]- 4820 Dec, [facility] [place] [facility] [address] [id number] [place] [address]- 5425 Dec, [facility] [place] [facility] [address] [id number] [place] [address] 2549 Dec, [facility] [place] [facility] [address] [id number] [place] [address]- 5250 Dec, [facility] [address] [id number] [place] [address]- 2340 Dec, [facility] [address] [id number] [place] [address]- 4900 Dec, [facility] [address] [id number] [place] [address]- 1933 Dec, [facility] [address] [id number] [place] [address]- 9197 October, [facility] [address] [id number] [place] [address]- 1962 October, [facility] [address] [id number] [place] [address]- 2805 October, [facility] [address] [id number] [place] [address]- 4995 October, [facility] [address] [id number] [place] [address]- 4395 30 Sep, 2012 [facility] [address] [id number] [place] [address]- 0065 Sep, [facility] [address] [id number] [place] [address]- 9868 29 Sep, 2012 [facility] [place] [facility] [address] [id number] [place] [address]- 2659 Sep, [facility] [place] [facility] [address] [id number] [place] [address]- 6149 25 Sep, 2012 [facility] [place] [facility] [address] [id number] [place] [address]- 1676 16 Sep, 2012 [facility] [place] [facility] [address] [id number] [place] [address]- 9441 15 Sep, 2012 [facility] [place] [facility] [address] [id number] [place] [address]- 8497 14 Sep, 2012 [facility] [place] [facility] [address] [id number] [place] [address]- 4955 Sep, [facility] [address] [facility] [id number] [place] [address]- 3843 Sep, [facility] [address] [facility] [id number] [place] [address]- 4820 Sep, IMMUNIZATIONS No Known Immunizations SOCIAL HISTORY Never Assessed REASON FOR VISIT Controlled Med Refill 04/18 PLAN OF CARE VITAL SIGNS MEDICATIONS Medication Instructions Dosage Frequency Start Date End Date Duration Status Fentanyl 75 MCG/HR Transdermal once every 3 days. 1 patch to skin Apr Active Percocet 7.5-325 MG Orally 4 times [...] problems 09/2015 Hospitalization History Acute dyspnea, muscle cramps--[facility] 03/04/16 Hospitalization History RLE Cellulitis, Hypokalemia, anemia-[facility] 09/29/15 Hospitalization History Lower edema 09/2016 Hospitalization History Received stitches ER 10/2016 Hospitalization History hallucinations/ dimished mental capasity 03/19-03/21/18
--- OUTSIDE RECORDS SUMMARY | 2018-07-12 08:09 | XMS REPORT ---
Author Author JAN HERNANDEZ [facility] Address [address] [place] [address] Care Team Providers Care Admissions Counselor Name Role Phone JAN HERNANDEZ Unavailable PROBLEMS Type Condition ICD9-CM Code [id number] Code Onset Dates Condition Status SNOMED Code Problem Hypothyroidism E03.9 Active 99145073 Problem Arthritis M19.90 Active 5197656 Problem Prediabetes R73.09 Active 9162449 Problem Restrictive lung disease J98.4 Active 25564071 Problem Anemia D64.9 Active 941377907 Problem Cor pulmonale I27.81 Active 26139294 Problem Back pain M54.9 Active 352041642 Problem Obesity hypoventilation syndrome E66.2 Active 091272512 Problem Coronary artery disease involving [place] coronary artery of [place] heart without angina pectoris I25.10 Active [id number] Problem Body mass index (BMI) of 45.0-49.9 in adult Z68.42 Active 421313517 Problem Hypokalemia E87.6 Active 74862374 Problem Venous insufficiency I87.2 Active 12508070 Problem 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 Active 468608829 ALLERGIES No Information ENCOUNTERS Encounter Location Date Diagnosis [place] [address] [address] Apr, [facility] [id number] [place] [address] 67112- 6350 Mar, Bronchitis J40 [facility] [address] [place] [id number] [place] [address] 59845- 0048 Mar, [facility] [id number] [place] [address] 16429- 5426 Mar, 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 ; Encounter for immunization Z23 and Arthritis M19.90 [facility] [address] [facility] [id number], [place] [address] Mar, Arthritis M19.90 and Back pain M54.9 [facility] [address] [facility] [id number] [place] [address] 07157- 7756 Mar, [facility] [address] [id number] [place] [address] 48001- 7176 Mar, [facility] [address] [facility] [id number] [place] [address] 71363- 1011 Feb, Arthritis M19.90 [facility] [address] [facility] [id number] [place] [address] 07467- 7271 Jan, Arthritis M19.90 [facility] [address] [id number] [place] [address] 57132- 0569 Jan, Back pain M54.9 and Arthritis M19.90 [facility] [id number] [place] [address] 24576- 3816 Jan, [facility] [id number] [place] [address] 53701- 5471 Jan, Back pain M54.9 [facility] [id number] [place] [address] 04409- 0787 Jan, Arthritis M19.90 [facility] [id number] [place] [address] 62413- 0130 Jan, Back pain M54.9 [facility] [address] [facility] [id number], [place] [address]- 8765 Jan, [facility] [id number] [place] [address] 20700- 3877 Jan, Back pain M54.9 [facility] [address] [facility] [id number], [place] [address] 66[address] Dec, Ingrowing nail with infection L60.0 and Onychomycosis B35.1 [facility] [id number] [place] [address] 07887- 5898 Dec, Arthritis M19.90 [facility] [id number] [place] [address] 79688- 3693 Dec, Ingrowing nail L60.0 [facility] [id number] [place] [address] 06745- 5102 Dec, Back pain M54.9 [facility] [id number] [place] [address] 96115 -8344 Dec, [facility] [id number] [place] [address] 05447- 7539 Dec, Back pain M54.9 [facility] [id number] [place] [address] 69732- 7102 Nov, Arthritis M19.90 [facility] [id number] [place] [address] 22942- 6989 Nov, [facility] [id number] [place] [address] 04317- 9317 Nov, Arthritis M19.90 ; Anemia D64.9 ; Restrictive lung disease J98.4 ; Weakness R53.1 and BMI 50.0-59.9, adult Z68.43 [facility] [id number] [place] [address] 29499- 9226 Nov, Arthritis M19.90 [facility] [id number] [place] [address] 94401- 8683 Nov, Back pain M54.9 [facility] [address] [id number] [place] [address] 72547- 5687 October, Back pain M54.9 [facility] [id number] [place] [address] 83008- 7654 October, Back pain M54.9 [facility] [address] [id number] [place] [address] 46085- 3239 Sep, Back pain M54.9 [place] [id number] [place] [address] 83137- 0829 Sep, Back pain M54.9 [facility] [address] [place] [id number] [place] [address] 69877 -1668 Sep, [facility] [address] [place] [id number] [place] [address] 72762 -5877 Sep, [facility] [address] [place] [id number] [place] [address] 71040 -2525 Sep, Swelling of right lower extremity M79.89 and Cellulitis of right lower extremity L03.115 [place] [address] 88406- 0974 Aug, Back pain M54.9 [place] [address] [place] [id number] [place] [address] 14237- 4939 15 Aug, 2017 Back pain M54.9 [place] [address] [place] [address] [id number] [place] [address] 01772- 4865 Aug, [place] [address] 16059- 9874 Aug, Cellulitis of right lower extremity L03.115 ; Ventral hernia without obstruction or gangrene K43.9 and BMI 50.0-59.9, adult Z68.43 [place] [address] [place] [address] [id number] [place] [address] 43645- 2918 Jul, Back pain M54.9 [place] [address] [address] [id number] [place] [address] 91013- 0513 Jul, 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 Z79.891 ; Arthritis M19.90 ; Back pain M54.9 ; Prediabetes R73.09 ; Hypothyroidism E03.9 ; Coronary artery disease involving [place] coronary artery of [place] heart without angina pectoris I25.10 and Anemia D64.9 [place] [address] [place] [address] [id number] [place] [address] 56549- 7267 Jul, 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 ; Back pain M54.9 ; Arthritis M19.90 ; Prediabetes R73.09 ; Hypothyroidism E03.9 ; Coronary artery disease involving [place] coronary artery of [place] heart without angina pectoris I25.10 ; Anemia D64.9 and BMI 45.0-49.9, adult Z68.42 [facility] [address] [id number] [place] [address] 49610- 8288 15 Jul, 2017 Back pain M54.9 [facility] [address] 88540- 7315 Jul, Back pain M54.9 [facility] [address] [id number] [place] [address] 61777- 7904 Jun, Back pain M54.9 [facility] [address] 43274- 2515 Jun, Back pain M54.9 [facility] [address] [place] [id number] [place] [address] 56761 -1088 May, Skin cancer of face C44.300 and BMI 45.0-49.9, adult Z68.42 [facility] [address] [id number] [place] [address] 43320- 9880 May, [facility] [address] [place] [id number] [place] [address] 08354- 8044 May, Back pain M54.9 [facility] [address] [id number] [place] [address] 47177- 3685 May, Back pain M54.9 [facility] [address] 69110- 1831 May, Back pain M54.9 [facility] [address] [id number] [place] [address] 54388- 5472 Apr, Back pain M54.9 [facility] [address] [place] [address]- 9517 Apr, Back pain M54.9 [facility] [address] 16433- 3743 Mar, Back pain M54.9 [facility] [address] 01238- 7444 Mar, Anemia D64.9 ; Encounter for immunization Z23 ; Arthritis M19.90 and Right inguinal hernia K40.90 [facility] [address] 66901- 4442 Mar, Back pain M54.9 [facility] [address] 83370- 5898 Feb, Back pain M54.9 [facility] [address] 55086- 7361 Feb, Back pain M54.9 [facility] [address] 02590- 6933 Jan, Back pain M54.9 [facility] [address] 07258- 4542 Jan, Back pain M54.9 [facility] [address] [place] [id number] [place] [address] 02934- 7795 Jan, [facility] [address] [place] [id number] [place] [address] 59267- 8009 Jan, Back pain M54.9 [facility] [address] [place] [id number] [place] [address] 29060- 3318 Dec, Back pain M54.9 [facility] [address] [place] [id number] [place] [address] 45576- 6480 Dec, Back pain M54.9 [facility] [address] [id number] [place] [address] 28418- 4947 Dec, [facility] [address] [place] [address]- 0492 29 Nov, 2016 Hypokalemia E87.6 [facility] [address] [id number] [place] [address] 76543- 0602 Nov, Back pain M54.9 [facility] [address] [id number] [place] [address] 70998- 6306 Nov, [facility] [address] 70162- 0504 Nov, Arthritis M19.90 [facility] [address] [id number] [place] [address] 85425- 2861 Nov, Back pain M54.9 [facility] [address] [id number] [place] [address] 08982- 2887 Nov, Generalized edema R60.1 [place] [address] [place] [id number] [place] [address] 51436- 6499 Nov, Back pain M54.9 [facility] [address] [id number] [place] [address] 63510- 1584 07 Nov, 2016 Pain in right knee M25.561 [place] [address] [place] [id number] [place] [address] 30296- 9543 05 Nov, 2016 Encounter for removal of sutures Z48.02 and Pain in right knee M25.561 [facility] [address] [id number] [place] [address] 09648 -0880 Nov, Abrasion of right foot, subsequent encounter S90.811D [facility] [address] [id number] [place] [address] 82680 -2953 October, Toe abrasion, right, initial encounter S90.414A [facility] [address] [place] [id number] [place] [address] 78360- 4477 October, [facility] [address] [place] [id number] [place] [address] 96043- 9804 October, Back pain M54.9 [facility] [address] [place] [id number] [place] [address] 15597- 4733 October, Venous insufficiency I87.2 [facility] [address] [id number] [place] [address] 03629- 1935 October, Pain in right knee M25.561 [facility] [address] [id number] [place] [address] 23363- 4527 Sep, Back pain M54.9 [facility] [address] [place] [id number] [place] [address] 53391- 0585 Sep, Venous insufficiency I87.2 [facility] [address] [id number] Sep, [facility] [address] [place] [id number] [place] [address] 42032 -8048 Sep, Leg edema, right R60.0 and Cellulitis of right lower extremity L03.115 [facility] [address] [id number] [place] [address] 77079- 8520 Sep, Pedal edema R60.0 [facility] [address] [id number] [place] [address] 30029- 7294 Sep, 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 ; Pain in right knee M25.561 and Arthritis M19.90 [place] [address] [place] [id number] [place] [address] 37559- 8434 Aug, Back pain M54.9 [facility] [address] [place] [id number] [place] [address] 36178- 4480 Aug, Back pain M54.9 [facility] [address] [id number] [place] [address] 52291- 8345 Aug, [facility] [address] [id number] [place] [address] 08874- 2514 Aug, Type 2 diabetes mellitus without complication E11.9 ; Restrictive lung disease J98.4 ; Arthritis M19.90 ; Back pain M54.9 ; Body mass index (BMI) of 45.0-49.9 in adult Z68.42 and Morbid (severe) obesity due to excess calories E66.01 [facility] [address] [place] [id number] [place] [address] 77538- 1344 Aug, Back pain M54.9 [facility] [id number] [place] [address] 45084- 9106 Aug, Back pain M54.9 [facility] [address] [place] [id number] [place] [address] 45000- 9690 Jul, [facility] [address] 36928- 7395 Jul, Back pain M54.9 [facility] [address] [place] [id number] [place] [address] 16782- 7134 Jul, Back pain M54.9 [facility] [address] [place] [id number] [place] [address] 66559- 1195 Jun, Back pain M54.9 [facility] [address] [place] [id number] [place] [address] 93232- 2453 Jun, Back pain M54.9 [facility] [address] [place] [id number] [place] [address] 47180- 1364 May, Back pain M54.9 [facility] [address] [place] [id number] [place] [address] 57129- 2618 May, Back pain M54.9 [facility] [address] [id number] [place] [address] 05918- 1189 May, Back pain M54.9 [facility] [address] [place] [id number] [place] [address] 91301- 9783 May, Back pain M54.9 [facility] [address] [place] [id number] [place] [address] 01400- 8723 May, [facility] [address] [place] [address]- 8294 May, Back pain M54.9 and Pain in right knee M25.561 [facility] [address] [id number] [place] [address] 31247- 3558 Apr, [facility] [address] [place] [id number] [place] [address] 55942- 1676 Apr, Type 2 diabetes mellitus without complication E11.9 ; Pain in right knee M25.561 and Pain in left knee M25.562 [facility] [address] [place] [id number] [place] [address] 10984- 8294 Mar, [facility] [id number] [place] [address] 12301- 7322 Mar, [facility] [id number] [place] [address] 19365- 5729 Mar, [facility] [address] [id number] [place] [address] 53036- 1015 Mar, Restrictive lung disease J98.4 ; Anemia D64.9 and Cor pulmonale I27.81 [facility] [id number] [place] [address] 24249- 8461 Mar, [facility] [id number] [place] [address] 20302- 0033 Mar, [facility] [id number] [place] [address] 11739- 7408 Mar, [facility] [id number] [place] [address] 59383- 1198 30 Feb, 2016 [facility] [id number] [place] [address] 67420- 9605 29 Feb, 2016 [facility] [address] [place] [id number] [place] [address] 71358- 7399 28 Feb, 2016 [facility] [address] [id number] [place] [address] 03973- 0277 Feb, Restrictive lung disease J98.4 [facility] [address], [place] [address]- 6148 Feb, [facility] [address], [place] [address] -5442 Feb, [facility] [address], [place] [address]- 6266 Feb, [facility] [address] [id number] [place] [address] 63914- 7900 Jan, [facility] [id number] [place] [address] 33755- 8820 Jan, [facility] [address] [id number] [place] [address] 42966- 3314 Jan, [facility] [address] [id number] [place] [address] 16983- 1423 Jan, [facility] [address] [id number] [place] [address] 66592- 9209 Jan, Restrictive lung disease J98.4 ; Anemia D64.9 and Cor pulmonale I27.81 [facility] [address] [id number] [place] [address] 31481- 8506 Dec, [facility] [address] [address]- 9386 Dec, [facility] [id number] [place] [address] 00961- 4311 Nov, Arthritis M19.90 and Hypokalemia E87.6 [facility] [id number] [place] [address] 14985- 5532 Nov, Back pain M54.9 [facility] [address] [address]- 1185 October, Back pain M54.9 [facility] [id number] [place] [address] 75611- 7406 October, Back pain M54.9 [facility] [id number] [place] [address] 03086- 9645 Sep, Scabies exposure Z20.89 [facility] [id number] [place] [address] 30561- 4107 Sep, Restrictive lung disease J98.4 [facility] [id number] [place] [address] 88904- 6988 Sep, Back pain M54.9 [facility] [id number] [place] [address] 48305- 4304 Sep, Restrictive lung disease J98.4 [facility] [id number] [place] [address] 57551- 5115 Aug, [facility] [id number] [place] [address] 00725- 9994 Aug, [facility] [id number] [place] [address] 19942- 0913 Aug, [facility] [id number] [place] [address] 97265- 8368 Aug, [facility] [id number] [place] [address] 46983- 9854 Aug, Back pain M54.9 [facility] [id number] [place] [address] 09636- 6054 Jul, Anemia D64.9 and Prediabetes R73.09 [facility] [id number] [place] [address] 93257- 7885 Jul, Back pain M54.9 [facility] [id number] [place] [address] 33322- 1836 Jul, Back pain M54.9 [facility] [id number] [place] [address] 44780- 8607 Jul, [facility] [id number] [place] [address] 43379- 7993 05 Jul, 2015 Bronchitis J40 and Anemia D64.9 [facility] [id number] [place] [address] 40109- 2299 Jun, [facility] [id number] [place] [address] 86237- 7408 Jun, [facility] [address] 71297- 6771 Jun, Bronchitis J40 and Anemia D64.9 [facility] [id number] [place] [address] 67306- 9838 Jun, [facility] [address] 25462- 2098 Jun, Back pain M54.9 [facility] [id number] [place] [address] 62230- 9919 Jun, Anemia D64.9 [facility] [id number] [place] [address] 68095- 8492 Jun, Restrictive lung disease J98.4 ; Anemia D64.9 ; Hypothyroidism E03.9 ; Cor pulmonale I27.81 and Back pain M54.9 [facility] [id number] [place] [address] 14304- 0310 May, [facility] [id number] [place] [address] 06052- 3052 Apr, Anemia D64.9 ; Encounter for immunization Z23 and Restrictive lung disease J98.4 [facility] [id number] [place] [address] 15047- 4424 Apr, [facility] [id number] [place] [address] 14550- 4027 Mar, [facility] [id number] [place] [address] 25457- 4356 Mar, Iron deficiency anemia D50.9 [address] [id number] [address] Mar, [facility] [id number] [place] [address] [phone]- [phone] Mar, [facility] [id number] [place] [address] 81144- [phone] Mar, Anemia D64.9 [facility] [id number] [place] [address] [phone]- [phone] Mar, [facility] [id number] [place] [address] [phone]- 8791 Mar, Anemia D64.9 [facility] [id number] [place] [address] 67925- [phone] Mar, Restrictive lung disease J98.4 and Anemia D64.9 [facility] [id number] [place] [address] 64216- 4591 Mar, [facility] [id number] [place] [address] 86725- 2571 Mar, Anemia D64.9 [facility] [id number] [place] [address] 06005- 3463 Mar, Anemia D64.9 [facility] [id number] [place] [address] [phone]- 9486 Mar, [facility] [id number] [place] [address] [id number]- [phone] 08 Mar, 2015 Diabetes mellitus E11.9 ; Bronchitis J40 and Anemia D64.9 [facility] [id number] [place] [address] [phone]- 0221 30 Feb, 2015 [facility] [id number] [place] [address] [phone]- [phone] 25 Feb, 2015 [facility] [id number] [place] [address] 86980- [phone] 15 Feb, 2015 [facility] [id number] [address] 6[address] Feb, [facility] [id number] [place] [address] 53714- 5637 Jan, [facility] [id number] [place] [address] [phone]- [phone] Jan, [facility] [address] [id number] [place] [address] 70952- 5371 Dec, Venous insufficiency 459.81 [facility] [id number] [place] [address] 26105- 5481 Dec, [facility] [id number] [place] [address] 14828- 9707 Dec, [facility] [id number] [place] [address] 85954- 0050 Dec, Coronary atherosclerosis of unspecified type of vessel, [place] or graft 414.00 ; Unspecified anemia 285.9 and Generalized osteoarthrosis , unspecified site 715.00 [facility] [id number] [place] [address] 84793- 1890 Nov, [facility] [id number] [place] [address] 25953- 6990 Nov, [facility] [id number] [place] [address] 47014- 9471 Nov, [facility] [id number] [place] [address] 49070- 5751 October, [facility] [id number] [place] [address] 27699- 0100 October, Acute bronchitis 466.0 and Shortness of breath 786.05 [facility] [id number] [address] 4058 Sep, [facility] [id number] [place] [address] 01475- 1917 Sep, [facility] [place] [facility] [address] [id number] [place] [address]- 9056 Aug, [facility] [place] [facility] [address] [id number] [place] [address]- 5407 Aug, [facility] [place] [facility] [address] [id number] [place] [address]- 5729 Jul, 2014 [facility] [place] [facility] [address] [id number] [place] [address]- 8874 Jul, [facility] [place] [facility] [address] [id number] [place] [address]- 0016 Jul, [facility] [place] [facility] [address] [id number] [place] [address]- 3235 Jul, [facility] [place] [facility] [address] [id number] [place] [address]- 7031 Jun, [facility] [place] [facility] [address] [id number] [place] [address]- 3414 Jun, [facility] [place] [facility] [address] [id number] [place] [address]- 2338 Jun, [facility] [place] [facility] [address] [id number] [place] [address]- 7566 Jun, [facility] [place] [facility] [address] [id number] [place] [address]- 8378 Jun, [facility] [place] [facility] [address] [id number] [place] [address]- 2075 Jun, [facility] [place] [facility] [address] [id number] [place] [address]- 0942 May, [facility] [place] [facility] [address] [id number] [place] [address]- 0180 May, [facility] [place] [facility] [address] [id number] [place] [address]- 8344 May, [facility] [place] [facility] [address] [id number], [place] [address]- 4946 May, [facility] [place] [facility] [address] [id number] [place] [address]- 9325 Apr, [facility] [place] [facility] [address] [id number] [place] 2250 Apr, [facility] [place] [facility] [address] [id number] [place] [address]- 1712 Apr, [facility] [place] [facility] [address] [id number] [place] [address]- 7217 Apr, [facility] [place] [facility] [address] [id number] [place] [address]- 7127 Apr, [facility] [place] [facility] [address] [id number] [place] [address]- 9050 Apr, [facility] [place] [facility] [address] [id number] [place] [address]- 5063 Mar, [facility] [place] [facility] [address] [id number] [place] [address]- 4692 Mar, [facility] [place] [facility] [address] [id number] [place] [address]- 4442 Mar, [facility] [place] [facility] [address] [id number] [place] [address]- 2512 Mar, [facility] [place] [facility] [address] [id number], [place] [address]- 1030 Mar, [facility] [place] [facility] [address] [id number], [place] [address]- 8197 Mar, [facility] [place] [facility] [address] [id number] [place] [address]- 2609 Mar, [facility] [place] [facility] [address] [id number] [place] 9605 Mar, [facility] [place] [facility] [address] [id number] [place] 1276 Feb, [facility] [place] [facility] [address] [id number] [place] [address]- 2171 Feb, [facility] [place] [facility] [address] [id number] [place] [address]- 3108 Jan, [facility] [place] [facility] [address] [id number] [place] [address]- 7697 Jan, [facility] [place] [facility] [address] [id number] [place] [address]- 1160 Jan, [facility] [place] [facility] [address] [id number] [place] [address]- 1598 Jan, [facility] [place] [facility] [address] [id number] [place] [address]- 9100 Jan, [facility] [place] [facility] [address] [id number] [place] [address]- 9837 Jan, [facility] [place] [facility] [address] [id number] [place] [address]- 4323 Dec, [facility] [place] [facility] [address] [id number] [place] [address]- 4408 Dec, [facility] [place] [facility] [address] [id number] [place] [address]- 1072 Dec, [facility] [place] [facility] [address] [id number] [place] [address]- 5057 Dec, [facility] [place] [facility] [address] [id number] [place] [address]- 7613 Nov, [facility] [place] [facility] [address] [id number] [place] [address]- 3460 Nov, [facility] [place] [facility] [address] [id number] [place] [address]- 7676 Nov, [facility] [place] [facility] [address] [id number] [place] [address]- 6098 Nov, [facility] [place] [facility] [address] [id number] [place] [address]- 0589 Nov, [facility] [place] [facility] [address] [id number] [place] [address]- 0106 Nov, [facility] [place] [facility] [address] [id number] [place] [address]- 7023 Nov, [facility] [place] [facility] [address] [id number] [place] [address]- 8869 Nov, [facility] [place] [facility] [address] [id number] [place] [address]- 0138 Nov, [facility] [place] [facility] [address] [id number] [place] [address]- 4780 Nov, [facility] [place] [facility] [address] [id number] [place] [address]- 8456 Nov, [facility] [place] [facility] [address] [id number] [place] [address]- 3367 Nov, [facility] [place] [facility] [address] [id number] [place] [address]- 9250 October, [facility] [place] [facility] [address] [id number] [place] [address]- 0975 October, [facility] [place] [facility] [address] [id number] [place] [address]- 5958 October, [facility] [place] [facility] [address] [id number] [place] [address]- 9083 October, [facility] [place] [facility] [address] [id number] [place] [address]- 0873 October, [facility] [place] [facility] [address] [id number] [place] [address]- 9933 October, [facility] [place] [facility] [address] [id number] [place] [address]- 4543 October, [facility] [place] [facility] [address] [id number] [place] 6885 October, [facility] [place] [facility] [address] [id number] [place] [address]- 1288 October, [facility] [place] [facility] [address] [id number] [place] [address]- 1057 Sep, [facility] [place] [facility] [address] [id number] [place] [address]- 4031 Sep, [facility] [place] [facility] [address] [id number] [place] [address]- 8548 Sep, [facility] [place] [facility] [address] [id number] [place] [address]- 7976 Sep, [facility] [place] [facility] [address] [id number] [place] [address]- 7045 Sep, [facility] [place] [facility] [address] [id number] [place] [address]- 9385 Sep, [facility] [place] [facility] [address] [id number] [place] [address]- 6783 Aug, [facility] [place] [facility] [address] [id number] [place] [address]- 4787 Aug, [facility] [place] [facility] [address] [id number] [place] [address]- 2610 Aug, [facility] [place] [facility] [address] [id number] [place] [address]- 4598 Aug, [facility] [place] [facility] [address] [id number] [place] [address]- 8142 Aug, [facility] [place] [facility] [address] [id number] [place] [address]- 7323 Aug, [facility] [place] [facility] [address] [id number] [place] [address]- 3269 Aug, [facility] [place] [facility] [address] [id number] [place] [address]- 2191 Aug, [facility] [place] [facility] [address] [id number] [place] [address]- 7814 Aug, [facility] [place] [facility] [address] [id number] [place] [address]- 2805 Aug, [facility] [place] [facility] [address] [id number] [place] [address]- 2298 Jul, [facility] [place] [facility] [address] [id number] [place] [address]- 2686 Jul, [facility] [place] [facility] [address] [id number] [place] [address]- 0031 Jun, [facility] [place] [facility] [address] [id number] [place] [address]- 8599 Jun, [facility] [place] [facility] [address] [id number] [place] [address]- 5321 Jun, [facility] [place] [facility] [address] [id number] [place] [address]- 0067 Jun, [facility] [place] [facility] [address] [id number] [place] [address]- 6727 Jun, [facility] [place] [facility] [address] [id number] [place] [address]- 3107 Jun, [facility] [place] [facility] [address] [id number] [place] [address]- 4190 Jun, [facility] [place] [facility] [address] [id number] [place] [address]- 4555 Jun, [facility] [place] [facility] [address] [id number] [place] [address]- 0429 May, [facility] [place] [facility] [address] [id number] [place] [address]- 0845 May, [facility] [place] [facility] [address] [id number] [place] [address]- 9156 May, [facility] [place] [facility] [address] [id number] [place] 1325 May, [facility] [place] [facility] [address] [id number] [place] [address]- 1014 May, [facility] [place] [facility] [address] [id number] [place] [address]- 9444 May, [facility] [place] [facility] [address] [id number] [place] [address]- 9108 May, [facility] [place] [facility] [address] [facility] [id number] [place] [address]- 5060 May, [facility] [place] [facility] [address] [id number] [place] [address]- 7941 May, [facility] [place] [facility] [address] [id number] [place] [address]- 9969 Apr, [facility] [place] [facility] [address] [id number] [place] [address]- 9495 Apr, [facility] [place] [facility] [address] [id number] [place] [address]- 8549 Apr, [facility] [place] [facility] [address] [id number], [place] [address]- 4909 Apr, [facility] [place] [facility] [address] [id number], [place] [address]- 0791 Mar, [facility] [place] [facility] [address] [id number], [place] [address]- 6223 Mar, [facility] [place] [facility] [address] [id number], [place] [address]- 3153 Mar, [facility] [place] [facility] [address] [id number], [place] [address]- 8865 Mar, [facility] [place] [facility] [address] [id number][place] [address]- 1995 Mar, [facility] [place] [facility] [address] [id number], [place] [address]- 3953 Mar, [facility] [place] [facility] [address] [id number], [place] [address]- 7997 Mar, [facility] [place] [facility] [address] [id number] [place] [address]- 1101 29 Mar, 2012 [facility] [place] [facility] [address] [id number] [place] [address]- 7044 25 Mar, 2012 [facility] [place] [facility] [address] [id number] [place] [address]- 6610 25 Mar, 2012 [facility] [place] [facility] [address] [id number] [place] [address]- 7644 18 Mar, 2012 [facility] [place] [facility] [address] [id number] [place] [address]- 8166 18 Mar, 2012 [facility] [place] [facility] [address] [id number] [place] [address]- 0250 18 Mar, 2012 [facility] [place] [facility] [address] [id number] [place] [address]- 9622 18 Mar, 2012 [facility] [place] [facility] [address] [id number] [place] [address]- 7081 18 Mar, 2012 [facility] [place] [facility] [address] [id number] [place] [address]- 0805 18 Mar, 2012 [facility] [place] [facility] [address] [id number] [place] [address]- 0676 17 Mar, 2012 [facility] [place] [facility] [address] [id number] [place] [address]- 8869 17 Mar, 2012 [facility] [place] [facility] [address] [id number] [place] [address]- 5064 15 Mar, 2012 [facility] [place] [facility] [address] [id number], [place] [address]- 1921 15 Mar, 2012 [facility] [place] [facility] [address] [id number] [place] [address]- 2516 14 Mar, 2012 [facility] [place] [facility] [address] [id number] [place] [address]- 5039 14 Mar, 2012 [facility] [place] [facility] [address] [id number] [place] [address]- 9103 14 Mar, 2012 [facility] [place] [facility] [address] [id number] [place] [address]- 7565 14 Mar, 2013 [facility] [place] [facility] [address] [id number] [place] [address]- 5369 12 Mar, 2013 [facility] [place] [facility] [address] [id number] [place] [address]- 0019 11 Mar, 2013 [facility] [place] [facility] [address] [id number] [place] [address]- 6921 11 Mar, 2013 [facility] [place] [facility] [address] [id number] [place] [address]- 7294 10 Mar, 2013 [facility] [place] [facility] [address] [id number] [place] [address]- 0515 10 Mar, 2013 [facility] [place] [facility] [address] [id number] [place] [address]- 4610 10 Mar, 2013 [facility] [place] [facility] [address] [id number] [place] [address]- 1851 10 Mar, 2013 [facility] [place] [facility] [address] [id number] [place] [address]- 5529 04 Mar, 2013 [facility] [place] [facility] [address] [id number] [place] [address]- 7808 Mar, [facility] [place] [facility] [address] [id number] [place] [address]- 9241 27 Feb, 2013 [facility] [place] [facility] [address] [id number] [place] [address]- 0843 11 Feb, 2013 [facility] [place] [facility] [address] [id number] [place] [address]- 7391 04 Feb, 2013 [facility] [place] [facility] [address] [id number] [place] [address]- 5956 03 Feb, 2013 [facility] [place] [facility] [address] [id number] [place] [address]- 6135 29 Jan, 2013 [facility] [place] [facility] [address] [id number] [place] [address]- 2885 Jan, [facility] [place] [facility] [address] [id number] [place] [address]- 3856 Jan, [facility] [place] [facility] [address] [id number] [place] [address]- 5981 Jan, [facility] [place] [facility] [address] [id number] [place] [address]- 8425 Jan, [facility] [place] [facility] [address] [id number] [place] [address]- 0258 Jan, [facility] [place] [facility] [address] [id number] [place] [address]- 9111 Dec, [facility] [place] [facility] [address] [id number] [place] [address]- 4599 Dec, [facility] [place] [facility] [address] [id number] [place] [address]- 9963 Dec, [facility] [place] [facility] [address] [id number] [place] [address]- 1329 Dec, [facility] [place] [facility] [address] [id number] [place] [address]- 0497 Dec, [facility] [place] [facility] [address] [id number] [place] [address]- 4632 Dec, [facility] [place] [facility] [address] [id number] [place] [address]- 4665 Dec, [facility] [place] [facility] [address] [id number] [place] [address]- 2205 Dec, [facility] [place] [facility] [address] [id number] [place] [address]- 7536 Dec, [facility] [place] [facility] [address] [id number] [place] [address]- 0642 Dec, [facility] [place] [facility] [address] [id number] [place] [address]- 9221 Dec, [facility] [place] [facility] [address] [id number], [place] [address]- 6165 October, [facility] [address] [facility] [id number], [place] [address]- 5501 October, [facility] [address] [facility] [id number], [place] [address]- 4221 October, [facility] [address] [facility] [id number], [place] [address]- 2245 October, [facility] [address] [id number] [place] [address]- 7673 Sep, [facility] [address] [facility] [id number], [place] [address]- 3836 Sep, [facility] [address] [facility] [id number], [place] [address]- 9999 Sep, [facility] [id number], [place] [address]- 6757 Sep, [facility] [address] [facility] [id number], [place] [address]- 2748 Sep, [facility] [id number], [place] [address]- 2037 16 Sep, 2012 [facility] [address] [id number], [place] [address]- 5706 15 Sep, 2012 [facility] [address] [id number], [place] [address]- 6653 14 Sep, 2012 [facility] [address] [facility] [id number], [place] [address]- 1989 Sep, [facility] [id number], [place] [address]- 1915 Sep, [facility] [address] [id number], [place] [address]- 9060 Sep, IMMUNIZATIONS No Known Immunizations SOCIAL HISTORY Never Assessed REASON FOR VISIT Medication refill request PLAN OF CARE VITAL SIGNS MEDICATIONS Medication Instructions Dosage Frequency Start Date End Date Duration Status Lomotil 2.5-0.025 MG Orally Four times a [...] 09/2015 Hospitalization History Acute dyspnea, muscle cramps--[facility] 03/04/16 Hospitalization History RLE Cellulitis, Hypokalemia, anemia-[facility] 09/29/15 Hospitalization History Lower edema 09/2016 Hospitalization History Received stitches ER 10/2016 Hospitalization History hallucinations/ dimished mental capasity 03/19-03/21/18
--- OUTSIDE RECORDS SUMMARY | 2018-07-12 08:09 | XMS REPORT ---
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 Name Role Phone JAN HERNANDEZ Unavailable PROBLEMS Type Condition ICD9-CM Code SEF31-UZ Code Onset Dates Condition Status SNOMED Code Problem Hypothyroidism E03.9 Active 25686552 Problem Arthritis M19.90 Active 4382986 Problem Prediabetes R73.09 Active 7488208 Problem Restrictive lung disease J98.4 Active 40137656 Problem Anemia D64.9 Active 658345434 Problem Cor pulmonale I27.81 Active 73186828 Problem Back pain M54.9 Active 798793311 Problem Obesity hypoventilation syndrome E66.2 Active 260867164 Problem 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 Active [id number] Problem Body mass index (BMI) of 45.0-49.9 in adult Z68.42 Active 398239546 Problem Hypokalemia E87.6 Active 67552669 Problem Venous insufficiency I87.2 Active 22168090 Problem 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 Active 122562686 ALLERGIES No Information ENCOUNTERS Encounter Location Date Diagnosis [facility] [id number] [address] Mar, [facility] [id number] [address] 0499 Mar, [facility] [id number] [place] [address] 36996- 3517 Mar, 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 ; Encounter for immunization Z23 and Arthritis M19.90 [facility] [address] [address] 2558 Mar, Arthritis M19.90 and Back pain M54.9 [facility] [address] [facility] [id number] [address] 4698 Mar, [facility] [id number] [place] [address] 44605- 9436 Mar, [facility] [id number] [place] [address] 38807- 8922 Feb, Arthritis M19.90 [facility] [id number] [place] [address] 29908- 9685 Jan, Arthritis M19.90 [facility] [id number] [place] [address] 85840- 1509 Jan, Back pain M54.9 and Arthritis M19.90 [facility] [id number] [place] [address] 77091- 4974 Jan, [facility] [id number] [place] [address] 88496- 2348 Jan, Back pain M54.9 [facility] [id number] [place] [address] 59058- 1718 Jan, Arthritis M19.90 [facility] [id number] [place] [address] 25784- 8590 Jan, Back pain M54.9 [facility] [id number] [place] [address] 85452- 8058 Jan, [facility] [id number] [place] [address] 27709- 5201 Jan, Back pain M54.9 [facility] [id number] [place] [address] 26064- 6949 Dec, Ingrowing nail with infection L60.0 and Onychomycosis B35.1 [facility] [id number] [address] 4780 Dec, Arthritis M19.90 [facility] [id number] [place] [address] 57810- 3697 Dec, Ingrowing nail L60.0 [facility] [id number] [place] [address] 55794- 1016 Dec, Back pain M54.9 [facility] [id number] [place] [address] 19249 -6112 Dec, [facility] [id number] [place] [address] 93708- 3664 Dec, Back pain M54.9 [facility] [id number] [place] [address] 48998- 1376 Nov, Arthritis M19.90 [facility] [id number] [place] [address] 15198- 3002 Nov, [facility] [id number] [place] [address] 37939- 7482 Nov, Arthritis M19.90 ; Anemia D64.9 ; Restrictive lung disease J98.4 ; Weakness R53.1 and BMI 50.0-59.9, adult Z68.43 [facility] [id number] [place] [address] 49931- 3362 Nov, Arthritis M19.90 [facility] [id number] [place] [address] 41563- 1017 Nov, Back pain M54.9 [facility] [id number] [place] [address] 58632- 2357 October, Back pain M54.9 [facility] [id number] [place] [address] 31489- 1457 October, Back pain M54.9 [facility] [id number] [place] [address] 54441- 2692 Sep, Back pain M54.9 [facility] [id number] [place] [address] 74992- 1190 Sep, Back pain M54.9 [facility] [id number] [place] [address] 33469 -2883 Sep, [facility] [id number] [place] [address] 68840 -9336 Sep, [facility] [id number] [place] [address] 41984 -4811 Sep, Swelling of right lower extremity M79.89 and Cellulitis of right lower extremity L03.115 [facility] [id number] [place] [address] 11359- 4106 Aug, Back pain M54.9 [facility] [id number] [place] [address] 36177- 9460 15 Aug, 2017 Back pain M54.9 [facility] [id number] [place] [address] 51782- 7928 Aug, [facility] [id number] [place] [address] 77333- 2311 Aug, Cellulitis of right lower extremity L03.115 ; Ventral hernia without obstruction or gangrene K43.9 and BMI 50.0-59.9, adult Z68.43 [facility] [id number] [place] [address] 21149- 1367 Jul, Back pain M54.9 [facility] [id number] [place] [address] 50958- 9599 Jul, halfway (current) 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 Z79.891 ; Arthritis M19.90 ; Back pain M54.9 ; Prediabetes R73.09 ; Hypothyroidism E03.9 ; 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 and Anemia D64.9 [facility] [id number] [place] [address] 58799- 6915 Jul, halfway (current) 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 Z79.891 ; Back pain M54.9 ; Arthritis M19.90 ; Prediabetes R73.09 ; Hypothyroidism E03.9 ; 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 [id number] [place] [address] 62005 -0593 May, Skin cancer of face C44.300 and BMI 45.0-49.9, adult Z68.42 [facility] [id number] [place] [address] 69610- 0306 May, [facility] [id number] [place] [address] 12499- 5394 May, Back pain M54.9 [facility] [id number] [place] [address] 69451- 6124 May, Back pain M54.9 [facility] [id number] [place] [address] 29871- 8384 May, Back pain M54.9 [facility] [id number] [place] [address] 44301- 7842 Apr, Back pain M54.9 [facility] [id number] [place] [address] 60238- 7368 Apr, Back pain M54.9 [facility] [address] [place] [address]- 7280 Mar, Back pain M54.9 [facility] [address] 96874- 5506 Mar, Anemia D64.9 ; Encounter for immunization Z23 ; Arthritis M19.90 and Right inguinal hernia K40.90 [facility] [id number] [place] [address] 37474- 5166 Mar, Back pain M54.9 [facility] [id number] [place] [address] 07634 2540 Feb, Back pain M54.9 [facility] [address] 78247- 1652 Feb, Back pain M54.9 [facility] [id number] [place] [address] 98265- 9094 Jan, Back pain M54.9 [facility] [id number] [place] [address] 88680- 6722 Jan, Back pain M54.9 [facility] [id number] [place] [address] 74513- 5566 Jan, [facility] [id number] [place] [address] 63875- 2548 Jan, Back pain M54.9 [facility] [id number] [place] [address] 10902 2543 Dec, Back pain M54.9 [facility] [id number] [place] [address] 98288 2543 Dec, Back pain M54.9 [facility] [id number] [place] [address] 81548- 2546 Dec, [facility] [id number] [place] [address] 77610- 2542 Nov, Hypokalemia E87.6 [facility] [id number] [place] [address] 00381- 6994 28 Nov, 2016 Back pain M54.9 [facility] [id number] [place] [address] 55937- 5206 Nov, [facility] [id number] [place] [address] 45364- 1306 Nov, Arthritis M19.90 [facility] [address] 04666- 9216 Nov, Back pain M54.9 [facility] [id number] [place] [address] 25802- 0034 Nov, Generalized edema R60.1 [facility] [id number] [place] [address] 45347- 6436 Nov, Back pain M54.9 [facility] [id number] [place] [address] 87674- 1982 07 Nov, 2016 Pain in right knee M25.561 [facility] [id number] [place] [address] 36496- 3757 05 Nov, 2016 Encounter for removal of sutures Z48.02 and Pain in right knee M25.561 [facility] [id number] [place] [address] 15014 -6512 03 Nov, 2016 Abrasion of right foot, subsequent encounter S90.811D [facility] [id number] [place] [address] 74744 -4156 October, Toe abrasion, right, initial encounter S90.414A [facility] [id number] [place] [address] 91365- 2878 October, [facility] [id number] [place] [address] 64058- 5992 October, Back pain M54.9 [facility] [id number] [place] [address] 34258- 7065 October, Venous insufficiency I87.2 [facility] [id number] [place] [address] 71825- 7453 October, Pain in right knee M25.561 [facility] [id number] [place] [address] 63506- 9013 Sep, Back pain M54.9 [facility] [id number] [place] [address] 88452- 6842 Sep, Venous insufficiency I87.2 [facility] [address] [id number] Sep, [facility] [address] 30541 -5055 Sep, Leg edema, right R60.0 and Cellulitis of right lower extremity L03.115 [facility] [id number] [place] [address] 50649- 4188 Sep, Pedal edema R60.0 [facility] [id number] [place] [address] 86441- 5817 Sep, 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 ; Pain in right knee M25.561 and Arthritis M19.90 [facility] [id number] [place] [address] 93159- 6919 Aug, Back pain M54.9 [facility] [id number] [place] [address] 13477- 1702 Aug, Back pain M54.9 [facility] [id number] [place] [address] 72824- 2574 Aug, [facility] [id number] [place] [address] 92839- 4700 10 Aug, 2016 Type 2 diabetes mellitus without complication E11.9 ; Restrictive lung disease J98.4 ; Arthritis M19.90 ; Back pain M54.9 ; Body mass index (BMI) of 45.0-49.9 in adult Z68.42 and Morbid (severe) obesity due to excess calories E66.01 [facility] [address] [facility] [id number] [address] 2546 Aug, Back pain M54.9 [facility] [address] [facility] [id number], [place] [address] 2546 Aug, Back pain M54.9 [facility] [address] [facility] [id number], [place] [address] 2546 07 Jul, 2016 [facility] [address] [facility] [id number] [place] [address] 57003 2546 Jul, Back pain M54.9 [facility] [address] [facility] [id number] [place] [address] 79226 2546 Jul, Back pain M54.9 [facility] [address] [facility] [id number] [place] [address] 26657 2546 Jun, Back pain M54.9 [facility] [address] [facility] [id number] [place] [address] 22767 2546 05 Jun, 2016 Back pain M54.9 [facility] [address] [facility] [id number] [place] [address] 70118 2546 May, Back pain M54.9 [facility] [address] [facility] [id number], [place] [address] 2546 16 May, 2016 Back pain M54.9 [facility] [address] [facility] [id number] [address] 2546 May, Back pain M54.9 [facility] [address] [facility] [id number], [place] [address] 2546 May, Back pain M54.9 [facility] [address] [facility] [id number] [address] 2546 09 May, 2016 [facility] [address] [facility] [id number], [place] [address] 2546 05 May, 2016 Back pain M54.9 and Pain in right knee M25.561 [facility] [address], [place] [address]- 3614 Apr, [facility] [id number] [place] [address] 58931- 8913 Apr, Type 2 diabetes mellitus without complication E11.9 ; Pain in right knee M25.561 and Pain in left knee M25.562 [facility] [id number] [place] [address] 26193- 8822 Mar, [facility] [id number] [place] [address] 19967- 5528 Mar, [facility] [id number] [place] [address] 87943- 1045 Mar, [facility] [id number] [place] [address] 39886- 7460 Mar, Restrictive lung disease J98.4 ; Anemia D64.9 and Cor pulmonale I27.81 [facility] [id number] [place] [address] 69221- 4942 Mar, [facility] [id number] [place] [address] 16034- 6999 Mar, [facility] [address] [address]- 3806 Mar, [facility] [id number] [place] [address] 63697- 1273 30 Feb, 2016 [facility] [address] [address]- 2544 29 Feb, 2016 [facility] [id number] [place] [address] 45451- 1043 28 Feb, 2016 [facility] [address] [address]- 4258 Feb, Restrictive lung disease J98.4 [facility] [id number] [place] [address] 02310- 4136 Feb, [facility] [address] [facility] [id number], [place] [address] -3189 Feb, [facility] [address] [facility] [id number], [place] [address]- 7402 Feb, [facility] [address] [facility] [id number], [place] [address]- 1890 Jan, [facility] [id number] [place] [address] 68620- 9517 Jan, [facility] [address] [facility] [id number] [place] [address] 23372- 2284 Jan, [facility] [id number] [place] [address] 92469- 7344 Jan, [facility] [id number] [place] [address] 68155- 5911 Jan, Restrictive lung disease J98.4 ; Anemia D64.9 and Cor pulmonale I27.81 [facility] [address] [address]- 7542 Dec, [facility] [id number] [place] [address] 76990- 5100 Dec, [facility] [address] [address]- 4702 Nov, Arthritis M19.90 and Hypokalemia E87.6 [facility] [address] [address]- 2775 Nov, Back pain M54.9 [facility] [id number] [place] [address] 11760- 0555 October, Back pain M54.9 [facility] [address] [address]- 5516 October, Back pain M54.9 [facility] [id number] [place] [address] 90383- 4530 Sep, Scabies exposure Z20.89 [facility] [id number] [place] [address] 48875- 2184 Sep, Restrictive lung disease J98.4 [facility] [id number] [place] [address] 16293- 0587 Sep, Back pain M54.9 [facility] [id number] [place] [address] 76557- 8350 Sep, Restrictive lung disease J98.4 [facility] [id number] [place] [address] 82507- 1108 Aug, [facility] [id number] [place] [address] 77368- 4466 Aug, [facility] [id number] [place] [address] 93452- 7580 Aug, [facility] [id number] [place] [address] 60538- 4739 Aug, [facility] [id number] [place] [address] 31867- 4167 Aug, Back pain M54.9 [facility] [id number] [place] [address] 57935- 7187 Jul, Anemia D64.9 and Prediabetes R73.09 [facility] [id number] [place] [address] 90469- 8159 Jul, Back pain M54.9 [facility] [id number] [place] [address] 53308- 7747 Jul, Back pain M54.9 [facility] [id number] [place] [address] 91446- 2546 Jul, [facility] [id number] [place] [address] 29720- 8566 05 Jul, 2015 Bronchitis J40 and Anemia D64.9 [facility] [id number] [place] [address] 35192- 2781 Jun, [facility] [id number] [place] [address] 70678- 0204 Jun, [facility] [id number] [place] [address] 60781- 8004 Jun, Bronchitis J40 and Anemia D64.9 [facility] [address] 61568- 7069 Jun, [facility] [address] 46383- 7124 Jun, Back pain M54.9 [facility] [id number] [place] [address] 71436- 6309 Jun, Anemia D64.9 [facility] [address] [address]57[address]- 0563 Jun, Restrictive lung disease J98.4 ; Anemia D64.9 ; Hypothyroidism E03.9 ; Cor pulmonale I27.81 and Back pain M54.9 [facility] [id number] [place] [address] 71897- 3557 May, [facility] [id number] [place] [address] 33035- 5211 Apr, Anemia D64.9 ; Encounter for immunization Z23 and Restrictive lung disease J98.4 [facility] [id number] [place] [address] 42892- 1789 Apr, [facility] [id number] [place] [address] 40923- 6836 Mar, [facility] [address] 50879- 1086 Mar, Iron deficiency anemia D50.9 [facility] [id number] [place] [address] 17305- 8130 Mar, [facility] [id number] [address] Mar, [facility] [id number] [place] [address] 93120- 6143 Mar, Anemia D64.9 [facility] [id number] [address]47 Mar, [facility] [id number] [place] [address] 41527- 3401 Mar, Anemia D64.9 [facility] [id number] [place] [address] 25359- 0914 Mar, Restrictive lung disease J98.4 and Anemia D64.9 [facility] [id number] [place] [address] 91474- 6340 Mar, [facility] [id number] [place] [address] 39320- 6898 Mar, Anemia D64.9 [facility] [id number] [place] [address] 65781- 5481 Mar, Anemia D64.9 [facility] [id number] [place] [address] 46776- 2248 Mar, [facility] [id number] [place] [address] 83856- 0244 Mar, Diabetes mellitus E11.9 ; Bronchitis J40 and Anemia D64.9 [facility] [id number] [address]41 30 Feb, 2014 [facility] [id number] [place] [address] 49446- 2546 25 Feb, 2015 [facility] [id number] [place] [address] 01457- 2542 15 Feb, 2015 [facility] [id number] [address] 254 04 Feb, 2015 [facility] [id number] [address] Jan, [facility] [id number] [address] Jan, [facility] [id number] [address]- 7078 Dec, Venous insufficiency 459.81 [facility] [id number] [place] [address] 21758- 9221 Dec, [facility] [id number] [place] [address]- [address] Dec, [facility] [id number] [place] [address] 10427- 7958 Dec, Coronary atherosclerosis of unspecified type of vessel, mary's igloo or graft 414.00 ; Unspecified anemia 285.9 and Generalized osteoarthrosis , unspecified site 715.00 [facility] [id number] [place] [address] 58826- 7569 Nov, [facility] [id number] [address] 51[address] Nov, [facility] [id number] [place] [address] 76008- 7333 Nov, [facility] [id number] [address] October, [facility] [id number] [address] 8279 October, Acute bronchitis 466.0 and Shortness of breath 786.05 [facility] [id number] [address] 9507 Sep, [facility] [id number] [address]- 9696 Sep, [facility] [id number] [address] 0664 Aug, [facility] [id number] [place] [address] 2547 Aug, [facility] [place] [facility] [address] [id number] [place] [address]- 5696 Jul, [facility] [place] [facility] [address] [id number] [place] [address]- 3626 Jul, [facility] [place] [facility] [address] [id number] [place] [address]- 7676 Jul, [facility] [place] [facility] [address] [id number] [place] [address]- 8846 Jul, [facility] [place] [facility] [address] [id number] [place] [address]- 3565 Jun, [facility] [place] [facility] [address] [id number] [place] [address]- 8875 Jun, [facility] [place] [facility] [address] [id number] [place] [address]- 1009 Jun, [facility] [place] [facility] [address] [id number] [place] [address]- 2053 Jun, [facility] [place] [facility] [address] [id number] [place] [address]- 2503 Jun, [facility] [place] [facility] [address] [facility] [id number] [place] [address]- 7360 Jun, [facility] [place] [facility] [address] [id number] [place] [address]- 4097 May, [facility] [place] [facility] [address] [id number] [place] [address]- 2783 May, [facility] [place] [facility] [address] [id number] [place] [address]- 9076 May, [facility] [place] [facility] [address] [id number] [place] [address]- 8846 May, [facility] [place] [facility] [address] [id number] [place] [address]- 8031 Apr, [facility] [place] [facility] [address] [id number] [place] [address]- 6397 Apr, [facility] [place] [facility] [address] [id number] [place] [address]- 9331 Apr, [facility] [place] [facility] [address] [id number] [place] [address]- 2023 Apr, [facility] [place] [facility] [address] [id number] [place] [address]- 9708 Apr, [facility] [place] [facility] [address] [id number] [place] [address]- 0284 Apr, [facility] [place] [facility] [address] [id number] [place] [address]- 0906 Mar, [facility] [place] [facility] [address] [id number] [place] [address]- 3407 Mar, [facility] [place] [facility] [address] [id number] [place] [address]- 6979 Mar, [facility] [place] [facility] [address] [id number] [place] [address]- 7044 Mar, [facility] [place] [facility] [address] [id number] [place] [address]- 6215 Mar, [facility] [place] [facility] [address] [id number] [address]- 2588 Mar, [facility] [place] [facility] [address] [id number], [place] [address]- 2002 Mar, [facility] [place] [facility] [address] [id number] [place] [address]- 4099 Mar, [facility] [place] [facility] [address] [id number], [place] [address]- 0215 Feb, [facility] [place] [facility] [address] [id number] [place] [address] Feb, [facility] [place] [facility] [address] [id number] [place] [address]- 3511 Jan, [facility] [place] [facility] [address] [id number] [place] [address]- 2226 Jan, [facility] [place] [facility] [address] [id number] [place] [address]- 4367 Jan, [facility] [place] [facility] [address] [id number] [place] [address]- 5584 Jan, [facility] [place] [facility] [address] [id number] [place] [address]- 7707 Jan, [facility] [place] [facility] [address] [id number] [place] [address]- 0607 Jan, [facility] [place] [facility] [address] [id number] [place] [address]- 5086 Dec, [facility] [place] [facility] [address] [id number] [place] [address]- 5947 Dec, [facility] [place] [facility] [address] [id number] [place] [address]- 0811 Dec, [facility] [place] [facility] [address] [id number] [place] [address]- 7775 Dec, [facility] [place] [facility] [address] [id number] [place] [address]- 0400 Nov, [facility] [place] [facility] [address] [id number] [place] [address]- 8319 Nov, [facility] [place] [facility] [address] [id number] [place] [address]- 4549 Nov, [facility] [place] [facility] [address] [id number] [place] [address]- 0179 Nov, [facility] [place] [facility] [address] [id number] [place] [address]- 5284 Nov, [facility] [place] [facility] [address] [id number] [place] [address]- 3525 Nov, [facility] [place] [facility] [address] [id number] [place] [address]- 9465 Nov, [facility] [place] [facility] [address] [id number] [place] [address]- 5467 Nov, [facility] [place] [facility] [address] [id number] [place] [address]- 9795 Nov, [facility] [place] [facility] [address] [id number] [place] [address]- 5205 Nov, [facility] [place] [facility] [address] [id number] [place] [address]- 4955 Nov, [facility] [place] [facility] [address] [id number] [place] [address]- 8216 Nov, [facility] [place] [facility] [address] [id number] [place] [address]- 7893 October, [facility] [place] [facility] [address] [id number] [place] [address]- 3330 October, [facility] [place] [facility] [address] [id number] [place] [address]- 0528 October, [facility] [place] [facility] [address] [id number] [place] [address]- 6986 October, [facility] [place] [facility] [address] [id number] [place] [address]- 5802 October, [facility] [place] [facility] [address] [id number] [place] [address]- 4244 October, [facility] [place] [facility] [address] [id number] [place] [address]- 2604 October, [facility] [place] [facility] [address] [id number] [place] [address]- 1280 October, [facility] [place] [facility] [address] [id number] [place] 9240 October, [facility] [place] [facility] [address] [id number] [place] [address]- 0202 Sep, [facility] [place] [facility] [address] [id number] [place] [address]- 6200 Sep, [facility] [place] [facility] [address] [id number] [place] [address]- 2696 Sep, [facility] [place] [facility] [address] [id number] [place] [address]- 5835 Sep, [facility] [place] [facility] [address] [id number] [place] [address]- 0573 Sep, [facility] [place] [facility] [address] [id number] [place] [address]- 6998 Sep, [facility] [place] [facility] [address] [id number] [place] [address]- 7075 Aug, [facility] [place] [facility] [address] [id number] [place] [address]- 1892 Aug, [facility] [place] [facility] [address] [id number] [place] [address]- 6944 Aug, [facility] [place] [facility] [address] [id number] [place] [address]- 8318 Aug, [facility] [place] [facility] [address] [id number] [place] [address]- 9344 Aug, [facility] [place] [facility] [address] [id number] [place] [address]- 3919 Aug, [facility] [place] [facility] [address] [id number] [place] [address]- 0333 Aug, [facility] [place] [facility] [address] [id number] [place] [address]- 3552 Aug, [facility] [place] [facility] [address] [id number] [place] [address]- 9751 Aug, [facility] [place] [facility] [address] [id number] [place] [address]- 3425 Aug, [facility] [place] [facility] [address] [id number] [place] [address]- 0609 Jul, [facility] [address] [id number] [place] [address]- 0038 Jul, [facility] [address] [id number] [place] [address]- 2583 Jun, [facility] [address] [id number] [place] [address]- 8538 Jun, [facility] [address] [id number] [place] [address]- 2821 Jun, [facility] [address] [id number] [place] [address]- 7754 Jun, [facility] [address] [id number] [place] [address]- 4266 Jun, [facility] [address] [id number] [place] [address]- 2107 Jun, [facility] [address] [id number] [place] [address]- 6297 Jun, [facility] [address] [id number] [place] [address]- 9159 Jun, [facility] [address] [id number] [place] [address]- 1096 May, [facility] [address] [id number] [place] [address]- 5385 May, [facility] [address] [id number] [place] [address]- 2655 May, [facility] [place] [facility] [address] [id number] [place] [address]- 4946 May, [facility] [place] [facility] [address] [id number] [place] 6906 May, [facility] [place] [facility] [address] [id number] [place] [address]- 3558 May, [facility] [place] [facility] [address] [id number] [place] [address]- 8582 May, [facility] [place] [facility] [address] [id number] [place] [address]- 6385 May, [facility] [place] [facility] [address] [id number] [place] [address]- 1679 May, [facility] [place] [facility] [address] [id number] [place] [address]- 4908 Apr, [facility] [place] [facility] [address] [id number] [place] [address]- 7063 Apr, [facility] [place] [facility] [address] [id number] [place] [address]- 2998 Apr, [facility] [place] [facility] [address] [id number] [place] [address]- 1497 Apr, [facility] [place] [facility] [address] [id number] [address]- 3499 Mar, [facility] [place] [facility] [address] [id number] [place] [address]- 3301 Mar, [facility] [place] [facility] [address] [id number], [place] [address]- 1606 Mar, [facility] [place] [facility] [address] [id number], [place] [address]- 0232 Mar, [facility] [place] [facility] [address] [id number], [place] [address]- 5092 Mar, [facility] [place] [facility] [address] [id number] [place] [address]- 3799 Mar, [facility] [place] [facility] [address] [id number], [place] [address]- 9385 Mar, [facility] [place] [facility] [address] [id number] [place] [address]- 3900 Mar, [facility] [place] [facility] [address] [id number] [place] [address]- 3374 25 Mar, 2012 [facility] [place] [facility] [address] [id number] [place] [address]- 7170 25 Mar, 2012 [facility] [place] [facility] [address] [id number] [place] [address]- 3220 18 Mar, 2012 [facility] [place] [facility] [address] [id number] [place] [address]- 6576 18 Mar, 2012 [facility] [place] [facility] [address] [id number] [place] [address]- 1455 18 Mar, 2012 [facility] [place] [facility] [address] [id number] [place] [address]- 9795 18 Mar, 2012 [facility] [place] [facility] [address] [id number] [place] [address]- 7952 18 Mar, 2012 [facility] [place] [facility] [address] [id number] [place] [address]- 2146 18 Mar, 2012 [facility] [place] [facility] [address] [id number] [place] [address]- 3050 17 Mar, 2012 [facility] [place] [facility] [address] [id number] [place] [address]- 1411 17 Mar, 2012 [facility] [place] [facility] [address] [id number] [place] [address]- 2320 15 Mar, 2012 [facility] [place] [facility] [address] [id number] [place] [address]- 6266 15 Mar, 2012 [facility] [place] [facility] [address] [id number], [place] [address]- 5092 14 Mar, 2012 [facility] [place] [facility] [address] [id number] [place] [address]- 2349 14 Mar, 2012 [facility] [place] [facility] [address] [id number], [place] [address]- 3471 14 Mar, 2012 [facility] [place] [facility] [address] [id number], [place] [address]- 6617 14 Mar2012 [facility] [place] [facility] [address] [id number] [place] [address]- 3511 Mar, [facility] [place] [facility] [address] [id number] [place] [address]- 8494 Mar, [facility] [place] [facility] [address] [id number] [place] [address]- 5799 Mar, [facility] [place] [facility] [address] [id number] [place] [address]- 0424 Mar, [facility] [place] [facility] [address] [id number] [place] [address]- 0222 Mar, [facility] [place] [facility] [address] [id number] [place] [address]- 2925 Mar, [facility] [place] [facility] [address] [id number] [place] [address]- 3544 Mar, [facility] [place] [facility] [address] [id number] [place] [address]- 0824 Mar, [facility] [place] [facility] [address] [id number] [place] [address]- 5544 Mar, [facility] [place] [facility] [address] [id number] [place] [address]- 4831 Feb, [facility] [place] [facility] [address] [id number] [place] [address]- 4633 Feb, [facility] [place] [facility] [address] [id number] [place] [address]- 9717 Feb, [facility] [place] [facility] [address] [id number] [place] [address]- 6347 Feb, [facility] [place] [facility] [address] [id number] [place] [address]- 6001 Jan, [facility] [place] [facility] [address] [id number] [place] [address]- 1815 Jan, [facility] [place] [facility] [address] [id number] [place] [address]- 1279 Jan, [facility] [place] [facility] [address] [id number] [place] 5035 Jan, [facility] [place] [facility] [address] [id number] [place] [address]- 4304 Jan, [facility] [place] [facility] [address] [id number] [place] [address]- 3568 Jan, [facility] [place] [facility] [address] [id number] [place] [address]- 5140 Dec, [facility] [place] [facility] [address] [id number] [place] [address]- 6567 Dec, [facility] [place] [facility] [address] [id number] [place] [address]- 1700 Dec, [facility] [place] [facility] [address] [id number] [place] [address]- 5250 Dec, [facility] [place] [facility] [address] [id number] [place] [address]- 1324 Dec, [facility] [place] [facility] [address] [id number] [place] [address]- 1216 Dec, [facility] [place] [facility] [address] [id number] [place] [address]- 5976 Dec, [facility] [place] [facility] [address] [id number] [place] [address]- 2835 Dec, [facility] [place] [facility] [address] [id number] [place] [address]- 4792 Dec, [facility] [place] [facility] [address] [id number] [place] [address]- 2117 Dec, [facility] [place] [facility] [address] [id number] [place] [address]- 3536 Dec, [facility] [place] [facility] [address] [id number] [place] [address]- 4405 October, [facility] [place] [facility] [address] [id number], [place] [address]- 0223 October, [facility] [id number] [address]- 1799 October, [facility] [id number] [address]- 9618 October, [facility] [id number] [address]- 2655 Sep, [facility] [id number] [address]- 5844 Sep, [facility] [id number] [place] [address] 45581- 6750 Sep, [facility] [id number] [address]- 0659 Sep, [facility] [id number] [address]- 1604 Sep, [facility] [id number] [address]- 6894 Sep, [facility] [id number], [place] [address]- 8825 Sep, [facility] [id number] [address]- 0020 Sep, [facility] [id number] [address]- 5364 Sep, [facility] [id number] [address]- 5198 Sep, [facility] [id number] [address]- 6705 Sep, IMMUNIZATIONS No Known Immunizations SOCIAL HISTORY Never Assessed REASON FOR VISIT Requests return call PLAN OF CARE VITAL SIGNS MEDICATIONS Unknown [...] 09/2015 Hospitalization History Acute dyspnea, muscle cramps--[facility] 03/04/16 Hospitalization History RLE Cellulitis, Hypokalemia, anemia-[facility] 09/29/15 Hospitalization History Lower edema 09/2016 Hospitalization History Received stitches ER 10/2016 Hospitalization History hallucinations/ dimished mental capasity 03/19-03/21/18
--- OUTSIDE RECORDS SUMMARY | 2018-07-12 08:10 | XMS REPORT ---
Author Author JAN HERNANDEZ [facility] Address [address] [place] [address] Care Team Providers Care Patrol Supervisor Name Role Phone JAN HERNANDEZ Unavailable PROBLEMS Type Condition ICD9-CM Code LDF89-MZ Code Onset Dates Condition Status SNOMED Code Problem Prediabetes R73.09 Active 2419984 Problem Arthritis M19.90 Active 3927870 Problem Hypokalemia E87.6 Active 39479498 Problem Coronary artery disease involving council coronary artery of council heart without angina pectoris I25.10 Active 7678840186760 Problem Skin cancer of face C44.300 Active 991456587 Problem Morbid (severe) obesity due to excess calories E66.01 Active 715325056 Problem Body mass index (BMI) of 45.0-49.9 in adult Z68.42 Active 568998432 Problem Venous insufficiency I87.2 Active 46318640 Problem 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 Active 708995931 Problem Anemia D64.9 Active 245842171 Problem Cor pulmonale I27.81 Active 90830026 Problem Back pain M54.9 Active 013307492 Problem Restrictive lung disease J98.4 Active 59923838 Problem Hypothyroidism E03.9 Active 71580815 ALLERGIES No Information ENCOUNTERS Encounter Location Date Diagnosis [facility] [id number] [address] Mar, [facility] [id number] [address] 9516 Mar, Arthritis M19.90 and Back pain M54.9 [facility] [id number] [address] 1959 Mar, [facility] [id number] [address] 7820 Mar, [facility] [address] [facility] [id number] [address] 2614 Feb, Arthritis M19.90 [facility] [address] [facility] [id number] [place] [address] 75069- 7416 Jan, Arthritis M19.90 [facility] [address] [facility] [id number] [place] [address] 09758- 5748 Jan, Back pain M54.9 and Arthritis M19.90 [facility] [address] [facility] [id number] [place] [address] 56639- 5553 Jan, [facility] [address] [facility] [id number] [place] [address] 90558- 7244 Jan, Back pain M54.9 [facility] [address] [facility] [id number] [place] [address] 14653- 5522 Jan, Arthritis M19.90 [facility] [address] [facility] [id number] [place] [address] 08695- 8333 Jan, Back pain M54.9 [facility] [address] [facility] [id number] [place] [address] 66868- 6780 Jan, [facility] [address] [facility] [id number] [place] [address] 89654- 6391 Jan, Back pain M54.9 [facility] [address] [facility] [id number] [place] [address] 6423 Dec, Ingrowing nail with infection L60.0 and Onychomycosis B35.1 [facility] [address] [facility] [id number] [place] [address] 1050 Dec, Arthritis M19.90 [facility] [address] [facility] [id number] [place] [address]- 1389 Dec, Ingrowing nail L60.0 [facility] [address] [facility] [id number] [place] [address]- 4840 Dec, Back pain M54.9 [facility] [address] [address] Dec, [facility] [id number] [place] [address] 20055- 6923 Dec, Back pain M54.9 [facility] [id number] [place] [address] 09169- 5524 Nov, Arthritis M19.90 [facility] [id number] [place] [address] 33242- 8599 Nov, [facility] [id number] [place] [address] 01788- 0470 Nov, Arthritis M19.90 ; Anemia D64.9 ; Restrictive lung disease J98.4 ; Weakness R53.1 and BMI 50.0-59.9, adult Z68.43 [facility] [id number] [place] [address] 65500- 7233 Nov, Arthritis M19.90 [facility] [id number] [place] [address] 84658- 7602 Nov, Back pain M54.9 [facility] [id number] [place] [address] 82983- 0488 October, Back pain M54.9 [facility] [id number] [place] [address] 07959- 2629 October, Back pain M54.9 [facility] [id number] [place] [address] 89039- 5748 Sep, Back pain M54.9 [facility] [id number] [place] [address] 97600- 6390 Sep, Back pain M54.9 [facility] [id number] [place] [address] 64316 -0487 Sep, [facility] [id number] [place] [address] 35192 -2386 Sep, [facility] [address] [address] Sep, Swelling of right lower extremity M79.89 and Cellulitis of right lower extremity L03.115 [facility] [id number] [place] [address] 52286- 1037 27 Aug, 2017 Back pain M54.9 [facility] [id number] [place] [address] 62062- 8220 15 Aug, 2017 Back pain M54.9 [facility] [id number] [place] [address] 15162- 1642 Aug, [facility] [id number] [place] [address] 56430- 2266 Aug, Cellulitis of right lower extremity L03.115 ; Ventral hernia without obstruction or gangrene K43.9 and BMI 50.0-59.9, adult Z68.43 [facility] [id number] [place] [address] 28017- 9955 Jul, Back pain M54.9 [facility] [id number] [place] [address] 23896- 9873 28 Jul, 2017 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 ; Arthritis M19.90 ; Back pain M54.9 ; Prediabetes R73.09 ; Hypothyroidism E03.9 ; Coronary artery disease involving council coronary artery of council heart without angina pectoris I25.10 and Anemia D64.9 [facility] [id number] [place] [address] 11318- 7864 27 Jul, 2017 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 ; Back pain M54.9 ; Arthritis M19.90 ; Prediabetes R73.09 ; Hypothyroidism E03.9 ; Coronary artery disease involving council coronary artery of council heart without angina pectoris I25.10 ; Anemia D64.9 and BMI 45.0-49.9, adult Z68.42 [facility] [id number] [place] [address] 17934- 6330 15 Jul, 2017 Back pain M54.9 [facility] [id number] [place] [address] 28184- 1928 Jul, Back pain M54.9 [facility] [id number] [place] [address] 40557- 8462 Jun, Back pain M54.9 [facility] [id number] [place] [address] 45217- 0487 Jun, Back pain M54.9 [facility] [id number] [place] [address] 74939 -4231 May, Skin cancer of face C44.300 and BMI 45.0-49.9, adult Z68.42 [facility] [id number] [place] [address] 11934- 3042 May, [facility] [id number] [place] [address] 52430- 7561 May, Back pain M54.9 [facility] [id number] [place] [address] 72205- 0898 May, Back pain M54.9 [facility] [id number] [place] [address] 75711- 3928 May, Back pain M54.9 [facility] [id number] [place] [address] 57965- 4587 Apr, Back pain M54.9 [facility] [id number] [place] [address] 66908 2540 Apr, Back pain M54.9 [facility] [id number] [place] [address] 51581- 3215 Mar, Back pain M54.9 [facility] [id number] [place] [address] 75061- 3216 Mar, Anemia D64.9 ; Encounter for immunization Z23 ; Arthritis M19.90 and Right inguinal hernia K40.90 [facility] [address] [facility] [id number] [place] [address] 97769- 1456 Mar, Back pain M54.9 [facility] [address] [facility] [id number] [place] [address] 38128 2546 Feb, Back pain M54.9 [facility] [address] [facility] [id number] [place] [address] 42356 2546 Feb, Back pain M54.9 [facility] [address] [facility] [id number] [place] [address] 81389 2546 Jan, Back pain M54.9 [facility] [address] [facility] [id number] [place] [address] 97091 2546 Jan, Back pain M54.9 [facility] [id number] [place] [address] 85024- 5526 Jan, [facility] [id number] [place] [address] 98596 2544 Jan, Back pain M54.9 [facility] [id number] [place] [address] 87319 2546 Dec, Back pain M54.9 [facility] [id number] [place] [address] 18361 2545 Dec, Back pain M54.9 [facility] [id number] [place] [address] 28543 2546 Dec, [facility] [address] [facility] [id number] [place] [address] 56833 2548 Nov, Hypokalemia E87.6 [facility] [address] [facility] [id number] [place] [address] 83234 2546 Nov, Back pain M54.9 [facility] [id number] [place] [address] 98241 2546 Nov, [facility] [id number] [place] [address] 24959- 1212 27 Nov, 2016 Arthritis M19.90 [facility] [address] 88378- 0961 Nov, Back pain M54.9 [facility] [id number] [place] [address] 95507- 9078 Nov, Generalized edema R60.1 [facility] [address] 55136- 4624 Nov, Back pain M54.9 [facility] [id number] [place] [address] 33465- 8426 07 Nov, 2016 Pain in right knee M25.561 [facility] [id number] [place] [address] 78064- 3706 05 Nov, 2016 Encounter for removal of sutures Z48.02 and Pain in right knee M25.561 [facility] [id number] [place] [address] 20587 -8422 Nov, Abrasion of right foot, subsequent encounter S90.811D [facility] [address] 88239 -3929 October, Toe abrasion, right, initial encounter S90.414A [facility] [facility] [id number] [place] [address] 34207- 4088 October, [facility] [id number] [place] [address] 24728- 0391 October, Back pain M54.9 [facility] [id number] [place] [address] 10404- 1230 October, Venous insufficiency I87.2 [facility] [id number] [place] [address] 93449- 6727 October, Pain in right knee M25.561 [facility] [id number] [place] [address] 89693- 7471 Sep, Back pain M54.9 [facility] [id number] [place] [address] 91611- 0810 Sep, Venous insufficiency I87.2 [facility] [address] [id number] Sep, [facility] [id number] [place] [address] 05701 -7463 Sep, Leg edema, right R60.0 and Cellulitis of right lower extremity L03.115 [facility] [address] 06783- 6996 14 Sep, 2016 Pedal edema R60.0 [facility] [address] 93054- 0978 Sep, 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01 [facility] [id number] [place] [address] 19956- 8686 Aug, Back pain M54.9 [facility] [address] 93270- 4979 Aug, Back pain M54.9 [facility] [address] [facility] [id number] [place] [address]- 1336 Jul, [facility] [address] [facility] [id number] [place] [address] 17826- 2296 Jul, Back pain M54.9 [facility] [address] [facility] [id number] [place] [address] 40117- 4546 Jul, Back pain M54.9 [facility] [address] [facility] [id number] [place] [address] 46998- 6429 Jun, Back pain M54.9 [facility] [address] [facility] [id number] [place] [address] 82788- 0709 Jun, Back pain M54.9 [facility] [address] [facility] [id number] [place] [address] 98022- 4246 May, Back pain M54.9 [facility] [address] [facility] [id number] [place] [address] 25564- 7746 16 May, 2016 Back pain M54.9 [facility] [address] [facility] [id number] [place] [address] 00219- 9912 May, Back pain M54.9 [facility] [address] [facility] [id number] [place] [address] 02738- 2271 May, Back pain M54.9 [facility] [address] [facility] [id number] [place] [address] 92317- 6896 May, [facility] [address] [facility] [id number] [place] [address] 17767- 9322 05 May, 2016 Back pain M54.9 and Pain in right knee M25.561 [facility] [address] [facility] [id number] [place] [address] 48977- 5573 Apr, [facility] [address] [facility] [id number] [place] [address]- 8822 Apr, Type 2 diabetes mellitus without complication E11.9 ; Pain in right knee M25.561 and Pain in left knee M25.562 [facility] [id number] [place] [address] 21426- 1121 Mar, [facility] [id number] [place] [address] 58591- 2587 Mar, [facility] [id number] [place] [address] 59773- 7668 Mar, [facility] [id number] [place] [address] 32235- 5948 18 Mar, 2016 Restrictive lung disease J98.4 ; Anemia D64.9 and Cor pulmonale I27.81 [facility] [id number] [place] [address] 10480- 8229 17 Mar, 2016 [facility] [id number] [place] [address] 26680- 0771 14 Mar, 2016 [facility] [id number] [place] [address] 60908- 9817 Mar, [facility] [id number] [place] [address] 40023- 5313 30 Feb, 2016 [facility] [id number] [place] [address] 17958- 7648 29 Feb, 2016 [facility] [id number] [place] [address] 70855- 5068 28 Feb, 2016 [facility] [id number] [place] [address] 16693- 7860 27 Feb, 2016 Restrictive lung disease J98.4 [facility] [id number] [place] [address] 11510- 9348 23 Feb, 2016 [facility] [id number] [place] [address] 94953 -1960 22 Feb, 2016 [facility] [id number] [place] [address] 03629- 7002 16 Feb, 2016 [facility] [address] [address]- 6459 Jan, [facility] [id number] [place] [address] 10666- 7458 Jan, [facility] [id number] [place] [address] 34499- 9315 Jan, [facility] [id number] [place] [address] 30787- 5455 Jan, [facility] [id number] [place] [address] 24920- 5560 Jan, Restrictive lung disease J98.4 ; Anemia D64.9 and Cor pulmonale I27.81 [facility] [id number] [place] [address] 67291- 7590 Dec, [facility] [id number] [place] [address] 91533- 1410 Dec, [facility] [id number] [place] [address] 86093- 7249 Nov, Arthritis M19.90 and Hypokalemia E87.6 [facility] [id number] [place] [address] 21902- 6273 Nov, Back pain M54.9 [facility] [id number] [place] [address] 46217- 1438 October, Back pain M54.9 [facility] [id number] [place] [address] 80452- 8801 October, Back pain M54.9 [facility] [id number] [place] [address] 24953- 0355 Sep, Scabies exposure Z20.89 [facility] [id number] [place] [address] 25696- 5565 Sep, Restrictive lung disease J98.4 [facility] [id number] [place] [address] 43578- 0407 Sep, Back pain M54.9 [facility] [id number] [place] [address] 89410- 3736 Sep, Restrictive lung disease J98.4 [facility] [address] [address] 2546 Aug, [facility] [id number] [place] [address] 12198 2546 Aug, [facility] [id number] [place] [address] 70600 254 Aug, [facility] [id number] [place] [address] 13670- 6670 Aug, [facility] [id number] [place] [address] 11332- 1157 Aug, Back pain M54.9 [facility] [id number] [place] [address] 50390- 3487 Jul, Anemia D64.9 and Prediabetes R73.09 [facility] [id number] [place] [address] 28296- 4315 Jul, Back pain M54.9 [facility] [id number] [place] [address] 92329 2546 Jul, Back pain M54.9 [facility] [id number] [place] [address] 44028 2546 Jul, [facility] [id number] [place] [address] 89952 2540 Jul, Bronchitis J40 and Anemia D64.9 [facility] [id number] [place] [address] 71784 2546 Jun, [facility] [id number] [place] [address] 55192 2546 Jun, [facility] [id number] [address]- 4217 Jun, Bronchitis J40 and Anemia D64.9 [facility] [address] 04254- 6714 Jun, [facility] [id number] [place] [address] 45999- 6854 Jun, Back pain M54.9 [facility] [address] 10000- 8943 Jun, Anemia D64.9 [facility] [address] 37279- 0148 Jun, Restrictive lung disease J98.4 ; Anemia D64.9 ; Hypothyroidism E03.9 ; Cor pulmonale I27.81 and Back pain M54.9 [facility] [id number] [place] [address] 65450- 1952 May, [facility] [address] 33948- 3405 Apr, Anemia D64.9 ; Encounter for immunization Z23 and Restrictive lung disease J98.4 [facility] [id number] [place] [address] 12499- 7106 Apr, [facility] [id number] [place] [address] 59934- 5508 Mar, [facility] [id number] [place] [address] 36012- 0853 Mar, Iron deficiency anemia D50.9 [facility] [id number] [place] [address] [phone]- 9391 Mar, [facility] [id number] [place] [address] [id number]- 2783 Mar, [facility] [id number] [place] [address] 63595- 8947 Mar, Anemia D64.9 [facility] [id number] [place] [address] 20099- 0776 Mar, [facility] [id number] [place] [address] 55488- 7253 Mar, Anemia D64.9 [facility] [id number] [place] [address] 29752- 2546 Mar, Restrictive lung disease J98.4 and Anemia D64.9 [facility] [id number] [place] [address] 26024- 1007 Mar, [facility] [id number] [place] [address] 83398- 0098 Mar, Anemia D64.9 [facility] [id number] [place] [address] 69526- 5117 Mar, Anemia D64.9 [facility] [id number] [place] [address] [phone]- 1883 Mar, [facility] [id number] [place] [address] 01386- 0803 Mar, Diabetes mellitus E11.9 ; Bronchitis J40 and Anemia D64.9 [facility] [id number] [place] [address] 60076- 8528 30 Feb, 2015 [facility] [id number] [place] [address] 09176- 9058 Feb, [facility] [id number] [place] [address] 46714- 4402 15 Feb, 2015 [facility] [id number] [place] [address] 91870- 2481 Feb, [facility] [id number] [place] [address] 97896- 4064 Jan, [facility] [id number] [place] [address] 66478- 5231 Jan, [facility] [id number] [place] [address] 05486- 8917 Dec, Venous insufficiency 459.81 [facility] [id number] [place] [address] 54842- 1571 Dec, [facility] [id number] [place] [address] [phone]- 8463 Dec, [facility] [id number] [place] [address] [id number]- 3565 Dec, Coronary atherosclerosis of unspecified type of vessel, council or graft 414.00 ; Unspecified anemia 285.9 and Generalized osteoarthrosis , unspecified site 715.00 [facility] [id number] [place] [address] 160540- 4086 Nov, [facility] [id number] [place] [address] 22439- 4648 Nov, [facility] [id number] [place] [address] 88533- 6366 Nov, [facility] [id number] [place] [address] 69742- 6291 October, [facility] [id number] [place] [address] 92523- 9613 October, Acute bronchitis 466.0 and Shortness of breath 786.05 [facility] [id number] [address] 9[address] Sep, [facility] [id number] [place] [address] 24737- 0299 Sep, [facility] [id number] [address] 1786 Aug, [facility] [id number] [place] [address] [id number]- 1999 Aug, [facility] [address] [place] 66[address] Jul, [facility] [id number] [place] [address] [place] [address]10 Jul, [facility] [place] [facility] [address] [id number] [place] [address]- 6038 Jul, [facility] [place] [facility] [address] [id number] [place] [address]- 9536 Jul, [facility] [place] [facility] [address] [id number] [place] [address]- 5118 Jun, [facility] [place] [facility] [address] [id number] [place] [address]- 8163 Jun, [facility] [place] [facility] [address] [id number] [place] [address]- 8804 Jun, [facility] [place] [facility] [address] [id number] [place] [address]- 0674 Jun, [facility] [place] [facility] [address] [id number] [place] [address]- 7693 Jun, [facility] [place] [facility] [address] [id number] [place] [address]- 9765 Jun, [facility] [place] [facility] [address] [id number] [place] [address]- 5455 May, [facility] [place] [facility] [address] [id number] [place] [address]- 6558 May, [facility] [place] [facility] [address] [id number] [place] [address]- 3943 May, [facility] [place] [facility] [address] [id number] [place] [address]- 4627 May, [facility] [place] [facility] [address] [id number] [place] [address]- 4719 Apr, [facility] [place] [facility] [address] [id number] [place] [address]- 7390 Apr, [facility] [place] [facility] [address] [id number] [place] [address]- 6252 Apr, [facility] [place] [facility] [address] [id number] [place] [address]- 9849 Apr, [facility] [place] [facility] [address] [id number] [place] [address]- 5158 Apr, [facility] [place] [facility] [address] [id number] [place] [address]- 5044 Apr, [facility] [place] [facility] [address] [id number] [place] [address]- 8897 Mar, [facility] [place] [facility] [address] [id number] [place] [address]- 7113 Mar, [facility] [place] [facility] [address] [id number] [place] [address]- 4295 Mar, [facility] [place] [facility] [address] [id number] [place] [address]- 9596 Mar, [facility] [place] [facility] [address] [id number] [place] [address]- 9791 Mar, [facility] [place] [facility] [address] [id number] [place] [address]- 1585 Mar, [facility] [place] [facility] [address] [id number] [place] [address]- 8369 Mar, [facility] [place] [facility] [address] [id number] [place] [address]- 3173 Mar, [facility] [place] [facility] [address] [id number] [place] [address]- 4854 Feb, [facility] [place] [facility] [address] [id number] [place] [address]- 4275 Feb, [facility] [place] [facility] [address] [id number] [place] [address]- 4348 Jan, [facility] [place] [facility] [address] [id number] [place] [address]- 5725 Jan, [facility] [place] [facility] [address] [id number] [place] [address]- 3088 Jan, [facility] [place] [facility] [address] [id number] [place] [address]- 4414 Jan, [facility] [place] [facility] [address] [id number] [place] [address]- 3383 Jan, [facility] [place] [facility] [address] [id number] [place] [address]- 9011 Jan, [facility] [place] [facility] [address] [id number] [place] [address]- 4626 Dec, [facility] [place] [facility] [address] [id number] [place] [address]- 5452 Dec, [facility] [place] [facility] [address] [id number] [place] [address]- 7549 Dec, [facility] [place] [facility] [address] [id number] [place] [address]- 5709 Dec, [facility] [place] [facility] [address] [id number] [place] [address]- 9590 Nov, [facility] [place] [facility] [address] [id number] [place] [address]- 3896 Nov, [facility] [place] [facility] [address] [id number] [place] [address]- 5212 Nov, [facility] [place] [facility] [address] [id number] [place] [address]- 3392 Nov, [facility] [place] [facility] [address] [id number] [place] [address]- 2935 Nov, [facility] [place] [facility] [address] [id number] [place] [address]- 0036 Nov, [facility] [place] [facility] [address] [id number] [place] [address]- 3392 Nov, [facility] [place] [facility] [address] [id number] [place] [address]- 3945 Nov, [facility] [place] [facility] [address] [id number] [place] [address]- 9245 Nov, [facility] [address] [id number] [place] [address]- 0468 Nov, [facility] [place] [facility] [address] [id number] [place] [address]- 5148 Nov, [facility] [address] [id number] [place] [address]- 5196 Nov, [facility] [place] [facility] [address] [id number] [place] [address]- 6608 October, [facility] [address] [id number] [place] [address]- 5769 October, [facility] [place] [facility] [address] [id number] [place] [address]- 4958 October, [facility] [place] [facility] [address] [id number] [place] [address]- 7813 October, [facility] [address] [id number] [place] [address]- 2408 October, [facility] [place] [facility] [address] [id number] [place] [address]- 2576 October, [facility] [address] [id number] [place] [address]- 1864 October, [facility] [place] [facility] [address] [id number] [place] [address]- 4783 October, [facility] [place] [facility] [address] [id number] [place] [address]- 0706 October, [facility] [place] [facility] [address] [id number] [place] [address]- 2293 Sep, [facility] [place] [facility] [address] [id number] [place] [address]- 7646 Sep, [facility] [place] [facility] [address] [id number] [place] [address]- 8866 Sep, [facility] [place] [facility] [address] [id number] [place] [address]- 1688 Sep, [facility] [place] [facility] [address] [id number] [place] [address]- 3905 Sep, [facility] [place] [facility] [address] [id number] [place] [address]- 0033 Sep, [facility] [place] [facility] [address] [id number] [place] [address]- 5341 Aug, [facility] [place] [facility] [address] [id number] [place] [address]- 6204 Aug, [facility] [place] [facility] [address] [id number] [place] [address]- 2178 Aug, [facility] [place] [facility] [address] [id number] [place] [address]- 0756 Aug, [facility] [place] [facility] [address] [id number] [place] [address]- 2315 Aug, [facility] [place] [facility] [address] [id number] [place] [address]- 4689 Aug, [facility] [place] [facility] [address] [id number] [place] [address]- 4642 Aug, [facility] [place] [facility] [address] [id number] [place] [address]- 6112 Aug, [facility] [place] [facility] [address] [id number] [place] [address]- 6096 Aug, [facility] [place] [facility] [address] [id number] [place] [address]- 8360 Aug, [facility] [place] [facility] [address] [id number] [place] [address]- 7606 Jul, [facility] [place] [facility] [address] [id number] [place] 4649 Jul, [facility] [place] [facility] [address] [id number] [place] [address]- 2624 Jun, [facility] [address] [id number] [place] [address]- 8751 Jun, [facility] [place] [facility] [address] [id number] [place] [address]- 0776 Jun, [facility] [place] [facility] [address] [id number] [place] [address]- 3333 Jun, [facility] [place] [facility] [address] [id number] [place] [address]- 2888 Jun, [facility] [place] [facility] [address] [id number] [place] [address]- 2226 Jun, [facility] [place] [facility] [address] [id number] [place] [address]- 2943 Jun, [facility] [address] [id number] [place] [address]- 6686 Jun, [facility] [place] [facility] [address] [id number] [place] [address]- 6506 May, [facility] [place] [facility] [address] [id number] [place] [address]- 0842 May, [facility] [place] [facility] [address] [id number] [place] [address]- 3211 May, [facility] [place] [facility] [address] [id number] [place] [address]- 0148 May, [facility] [place] [facility] [address] [id number] [place] [address]- 2544 May, [facility] [place] [facility] [address] [id number] [place] [address]- 6320 May, [facility] [place] [facility] [address] [id number] [place] [address]- 6480 May, [facility] [place] [facility] [address] [id number] [place] [address]- 7954 May, [facility] [place] [facility] [address] [id number] [place] [address]- 2782 May, [facility] [place] [facility] [address] [id number] [place] [address]- 1741 Apr, [facility] [place] [facility] [address] [id number] [place] [address]- 0472 Apr, [facility] [place] [facility] [address] [id number] [place] [address]- 0203 Apr, [facility] [place] [facility] [address] [id number] [place] [address]- 1405 Apr, [facility] [place] [facility] [address] [id number] [place] [address]- 4040 Mar, [facility] [place] [facility] [address] [id number] [place] [address]- 5931 Mar, [facility] [place] [facility] [address] [id number] [place] [address]- 5525 Mar, [facility] [place] [facility] [address] [id number] [place] [address]- 7946 Mar, [facility] [place] [facility] [address] [id number] [place] [address]- 6033 Mar, [facility] [place] [facility] [address] [id number] [place] [address]- 0569 Mar, [facility] [place] [facility] [address] [id number] [place] [address]- 6298 Mar, [facility] [place] [facility] [address] [id number] [place] [address]- 5044 Mar, [facility] [place] [facility] [address] [id number] [place] [address]- 2889 Mar, [facility] [place] [facility] [address] [id number] [place] [address]- 8999 Mar, [facility] [place] [facility] [address] [id number] [place] [address]- 5579 18 Mar, 2012 [facility] [place] [facility] [address] [id number] [place] [address]- 2078 18 Mar, 2012 [facility] [place] [facility] [address] [id number] [place] [address]- 8538 18 Mar, 2012 [facility] [place] [facility] [address] [id number] [place] [address]- 1167 18 Mar, 2012 [facility] [place] [facility] [address] [id number] [place] [address]- 0467 18 Mar, 2012 [facility] [place] [facility] [address] [id number] [place] [address]- 0245 18 Mar, 2012 [facility] [place] [facility] [address] [id number] [place] [address]- 8443 17 Mar, 2012 [facility] [place] [facility] [address] [id number] [place] [address]- 0885 17 Mar, 2012 [facility] [place] [facility] [address] [id number] [place] [address]- 4383 15 Mar, 2012 [facility] [place] [facility] [address] [id number] [place] [address]- 9787 15 Mar, 2012 [facility] [place] [facility] [address] [id number] [place] [address]- 3047 14 Mar, 2012 [facility] [place] [facility] [address] [id number] [place] [address]- 4114 14 Mar, 2012 [facility] [place] [facility] [address] [id number] [place] [address]- 4896 14 Mar, 2012 [facility] [place] [facility] [address] [id number] [place] [address]- 3893 14 Mar, 2012 [facility] [place] [facility] [address] [id number] [place] [address]- 5886 12 Mar, 2012 [facility] [place] [facility] [address] [id number] [place] [address]- 0425 11 Mar, 2012 [facility] [place] [facility] [address] [id number] [place] [address]- 3197 11 Mar, 2013 [facility] [address] [id number] [place] [address]- 7574 Mar, [facility] [place] [facility] [address] [id number] [place] [address]- 5579 10 Mar, 2013 [facility] [place] [facility] [address] [id number] [place] [address]- 8186 10 Mar, 2012 [facility] [place] [facility] [address] [id number] [place] [address]- 3949 10 Mar, 2013 [facility] [place] [facility] [address] [id number] [place] [address]- 1430 Mar, [facility] [place] [facility] [address] [id number] [place] [address]- 0050 Mar, [facility] [place] [facility] [address] [id number] [place] [address]- 0367 27 Feb, 2013 [facility] [place] [facility] [address] [id number] [place] [address]- 6206 11 Feb, 2013 [facility] [place] [facility] [address] [id number] [place] [address]- 6525 04 Feb, 2013 [facility] [place] [facility] [address] [id number] [place] [address]- 1515 03 Feb, 2013 [facility] [place] [facility] [address] [id number] [place] [address]- 2547 29 Jan, 2013 [facility] [place] [facility] [address] [id number] [place] [address]- 2545 Jan, [facility] [place] [facility] [address] [id number] [place] [address]- 1853 Jan, [facility] [place] [facility] [address] [id number] [place] [address]- 2547 Jan, [facility] [place] [facility] [address] [id number] [place] [address]- 5845 Jan, [facility] [place] [facility] [address] [id number] [place] [address]- 2619 Jan, [facility] [place] [facility] [address] [id number] [place] [address]- 9505 Dec, [facility] [place] [facility] [address] [id number] [place] [address]- 7294 Dec, [facility] [place] [facility] [address] [id number] [place] [address]- 2715 Dec, [facility] [address] [id number] [place] [address]- 5622 Dec, [facility] [place] [facility] [address] [id number] [place] [address]- 9978 Dec, [facility] [address] [id number] [place] [address]- 5184 Dec, [facility] [address] [id number] [place] [address]- 2376 Dec, [facility] [place] [facility] [address] [id number] [place] [address]- 3919 Dec, [facility] [place] [facility] [address] [id number] [place] [address]- 8995 Dec, [facility] [place] [facility] [address] [id number] [place] [address]- 9378 Dec, [facility] [place] [facility] [address] [id number] [place] [address]- 6455 Dec, [facility] [place] [facility] [address] [id number] [place] [address]- 7539 October, [facility] [place] [facility] [address] [id number] [place] [address]- 7419 October, [facility] [place] [facility] [address] [id number] [place] [address]- 7803 October, [facility] [place] [facility] [address] [id number] [place] [address]- 5523 October, [facility] [id number] [place] [address]- 7324 Sep, [facility] [id number] [place] [address]- 3300 Sep, [facility] [id number] [place] [address]- 0109 Sep, [facility] [id number] [place] [address]- 1557 Sep, [facility] [id number] [place] [address] 61461- 7551 Sep, [facility] [id number] [place] [address] 16251- 4118 Sep, [facility] [id number] [place] [address] 25079- 9844 Sep, [facility] [id number] [place] [address]- 6182 Sep, [facility] [id number] [place] [address]- 9041 Sep, [facility] [id number] [place] [address]- 8462 Sep, [facility] [address] [id number] [address]- 6956 Sep, IMMUNIZATIONS No Known Immunizations SOCIAL HISTORY Never Assessed REASON FOR VISIT Hospital visit PLAN OF CARE VITAL SIGNS MEDICATIONS Unknown [...] problems 09/2015 Hospitalization History Acute dyspnea, muscle cramps--[facility] 03/04/16 Hospitalization History RLE Cellulitis, Hypokalemia, anemia-[facility] 09/29/15 Hospitalization History Lower edema 09/2016 Hospitalization History Received stitches ER 10/2016
--- OUTSIDE RECORDS SUMMARY | 2018-07-12 08:11 | XMS REPORT ---
Author Author CHARLES REAGAN Organization [facility] Address [address] [place] [address] Care Team Providers Care Transport Nurse Name Role Phone CHARLES REAGAN Unavailable PROBLEMS Type Condition ICD9-CM Code [id number] Code Onset Dates Condition Status SNOMED Code Problem Prediabetes R73.09 Active 1921201 Problem Arthritis M19.90 Active 3927581 Problem Hypokalemia E87.6 Active 14963543 Problem Coronary artery disease involving [place] coronary artery of [place] heart without angina pectoris I25.10 Active 0246403227206 Problem Skin cancer of face C44.300 Active 760745970 Problem Morbid (severe) obesity due to excess calories E66.01 Active 230507861 Problem Body mass index (BMI) of 45.0-49.9 in adult Z68.42 Active 056759449 Problem Venous insufficiency I87.2 Active 78553700 Problem 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 Active 735264519 Problem Anemia D64.9 Active 612645473 Problem Cor pulmonale I27.81 Active 37631239 Problem Back pain M54.9 Active 818906890 Problem Restrictive lung disease J98.4 Active 55250191 Problem Hypothyroidism E03.9 Active 62469321 ALLERGIES No Information ENCOUNTERS Encounter Location Date Diagnosis [facility] [address], [place] [address] Mar, [facility] [address], [place] [address] Mar, Arthritis M19.90 and Back pain M54.9 [facility] [address], [place] [address] Mar, [facility] [address], [place] [address] Mar, [facility] [address] [facility] [id number], [place] [address] Feb, Arthritis M19.90 [facility] [address] [facility] [id number] [place] [address] 61814- 3226 Jan, Arthritis M19.90 [facility] [address] [facility] [id number] [place] [address] 32744- 1172 Jan, Back pain M54.9 and Arthritis M19.90 [facility] [address] [facility] [id number] [place] [address] 90969- 8901 Jan, [facility] [address] [facility] [id number] [place] [address] 66808- 4018 Jan, Back pain M54.9 [facility] [id number] [place] [address] 99123- 2988 Jan, Arthritis M19.90 [facility] [id number] [place] [address] 43271- 8573 Jan, Back pain M54.9 [facility] [address] [facility] [id number] [place] [address] 77714- 8305 Jan, [facility] [id number] [place] [address] 47306- 7347 Jan, Back pain M54.9 [facility] [id number] [place] [address] 11032- 1443 Dec, Ingrowing nail with infection L60.0 and Onychomycosis B35.1 [facility] [address] [facility] [id number], [place] [address] Dec, Arthritis M19.90 [facility] [address] [facility] [id number] [place] [address] 17423- 9451 Dec, Ingrowing nail L60.0 [facility] [address] [facility] [id number], [place] [address] 9110 Dec, Back pain M54.9 [facility] [address], [place] [address] Dec, [facility] [id number] [place] [address] 74028- 0693 Dec, Back pain M54.9 [facility] [id number] [place] [address] 65864- 1830 Nov, Arthritis M19.90 [facility] [id number] [place] [address] 38075- 3961 Nov, [facility] [id number] [place] [address] 83018- 8303 Nov, Arthritis M19.90 ; Anemia D64.9 ; Restrictive lung disease J98.4 ; Weakness R53.1 and BMI 50.0-59.9, adult Z68.43 [facility] [id number] [place] [address] 19629- 9158 Nov, Arthritis M19.90 [facility] [id number] [place] [address] 34383- 3581 Nov, Back pain M54.9 [facility] [id number] [place] [address] 16179- 3673 October, Back pain M54.9 [facility] [id number] [place] [address] 34715- 1306 October, Back pain M54.9 [facility] [id number] [place] [address] 84672- 5476 Sep, Back pain M54.9 [facility] [id number] [place] [address] 56237- 6633 Sep, Back pain M54.9 [facility] [id number] [place] [address] 42393 -3530 Sep, [facility] [id number] [place] [address] 99004 -1985 Sep, [facility] [address], [place] [address] 04 Sep, 2017 Swelling of right lower extremity M79.89 and Cellulitis of right lower extremity L03.115 [facility] [address] [place] [address] 36201- 5332 27 Aug, 2017 Back pain M54.9 [place] [id number] [place] [address] 79555- 6180 15 Aug, 2017 Back pain M54.9 [facility] [place] [id number] [place] [address] 44878- 8357 Aug, [place] [place] [id number] [place] [address] 61029- 9492 Aug, Cellulitis of right lower extremity L03.115 ; Ventral hernia without obstruction or gangrene K43.9 and BMI 50.0-59.9, adult Z68.43 [place] [place] [id number] [place] [address] 55412- 7172 Jul, Back pain M54.9 [facility] [id number] [place] [address] 22409- 3257 Jul, halfway (current) 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 Z79.891 ; Arthritis M19.90 ; Back pain M54.9 ; Prediabetes R73.09 ; Hypothyroidism E03.9 ; Coronary artery disease involving [place] coronary artery of [place] heart without angina pectoris I25.10 and Anemia D64.9 [place] [address] [place] [address] 33912- 5473 Jul, 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 ; Back pain M54.9 ; Arthritis M19.90 ; Prediabetes R73.09 ; Hypothyroidism E03.9 ; Coronary artery disease involving [place] coronary artery of [place] heart without angina pectoris I25.10 ; Anemia D64.9 and BMI 45.0-49.9, adult Z68.42 [place] [id number] [place] [address] 54328- 9942 Jul, Back pain M54.9 [facility] [id number] [place] [address] 56125- 0603 Jul, Back pain M54.9 [facility] [id number] [place] [address] 87312- 7256 Jun, Back pain M54.9 [facility] [id number] [place] [address] 31003- 7654 Jun, Back pain M54.9 [facility] [id number] [place] [address] 97950 -1802 May, Skin cancer of face C44.300 and BMI 45.0-49.9, adult Z68.42 [facility] [id number] [place] [address] 21303- 6970 May, [facility] [id number] [place] [address] 49805- 7867 May, Back pain M54.9 [facility] [id number] [place] [address] 00349- 2061 May, Back pain M54.9 [facility] [id number] [place] [address] 85779- 6661 May, Back pain M54.9 [facility] [id number] [place] [address] 55860- 4980 Apr, Back pain M54.9 [facility] [id number] [place] [address] 49114- 5166 Apr, Back pain M54.9 [facility] [id number] [place] [address] 29080- 8034 Mar, Back pain M54.9 [facility] [address] [place] [address] 67492- 0943 Mar, Anemia D64.9 ; Encounter for immunization Z23 ; Arthritis M19.90 and Right inguinal hernia K40.90 [facility] [address] [facility] [id number] [place] [address] 25888- 4466 Mar, Back pain M54.9 [facility] [address] [facility] [id number] [place] [address] 50238 2546 Feb, Back pain M54.9 [facility] [address] [facility] [id number] [place] [address] 09805 2546 Feb, Back pain M54.9 [facility] [address] [facility] [id number] [place] [address] 70457 2546 Jan, Back pain M54.9 [facility] [address] [facility] [id number] [place] [address] 97040 2546 Jan, Back pain M54.9 [facility] [address] [facility] [id number] [place] [address] 09104- 4766 Jan, [facility] [address] [facility] [id number] [place] [address] 76167 2542 Jan, Back pain M54.9 [facility] [address] [facility] [id number] [place] [address] 12057 2546 Dec, Back pain M54.9 [facility] [address] [facility] [id number] [place] [address] 15930 2546 Dec, Back pain M54.9 [facility] [address] [facility] [id number] [place] [address] 37127 2546 Dec, [facility] [address] [facility] [id number] [place] [address] 13977 2542 Nov, Hypokalemia E87.6 [facility] [address] [facility] [id number] [place] [address] 11638 2546 Nov, Back pain M54.9 [facility] [address] [facility] [id number] [place] [address] 40829 2546 Nov, [facility] [id number] [place] [address] 91739- 7746 Nov, Arthritis M19.90 [place] [id number] [place] [address] 04469- 2380 Nov, Back pain M54.9 [facility] [id number] [place] [address] 64776- 0148 Nov, Generalized edema R60.1 [place] [address] 13726- 4818 Nov, Back pain M54.9 [place] [id number] [place] [address] 67025- 2006 07 Nov, 2016 Pain in right knee M25.561 [place] [id number] [place] [address] 36564- 4845 05 Nov, 2016 Encounter for removal of sutures Z48.02 and Pain in right knee M25.561 [facility] [id number] [place] [address] 57638 -7261 Nov, Abrasion of right foot, subsequent encounter S90.811D [facility] [id number] [place] [address] 71101 -9772 October, Toe abrasion, right, initial encounter S90.414A [place] [id number] [place] [address] 61223- 4004 October, [place] [id number] [place] [address] 45729- 7403 October, Back pain M54.9 [place] [id number] [place] [address] 19961- 9392 October, Venous insufficiency I87.2 [place] [id number] [place] [address] 91114- 4530 October, Pain in right knee M25.561 [place] [id number] [place] [address] 69550- 1769 Sep, Back pain M54.9 [facility] [id number] [place] [address] 71574- 1523 Sep, Venous insufficiency I87.2 [facility] [id number] [place] [address] [id number] Sep, [facility] [id number] [place] [address] 96306 -9892 Sep, Leg edema, right R60.0 and Cellulitis of right lower extremity L03.115 [place] [id number] [place] [address] 40448- 7648 14 Sep, 2016 Pedal edema R60.0 [place] [id number] [place] [address] 21068- 5581 Sep, 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 ; Pain in right knee M25.561 and Arthritis M19.90 [place] [id number] [place] [address] 06145- 0491 Aug, Back pain M54.9 [place] [id number] [place] [address] 47674- 5022 Aug, Back pain M54.9 [facility] [id number] [place] [address] 00458- 8918 Aug, [place] [id number] [place] [address] 59483- 1248 Aug, Type 2 diabetes mellitus without complication E11.9 ; Restrictive lung disease J98.4 ; Arthritis M19.90 ; Back pain M54.9 ; Body mass index (BMI) of 45.0-49.9 in adult Z68.42 and Morbid (severe) obesity due to excess calories E66.01 [facility] [id number] [place] [address] 58390- 2521 Aug, Back pain M54.9 [place] [id number] [place] [address] 11213- 0316 Aug, Back pain M54.9 [facility] [address] [facility] [id number], [place] [address] 2546 Jul, [facility] [address] [facility] [id number] [place] [address] 73483 2546 Jul, Back pain M54.9 [facility] [address] [facility] [id number] [place] [address] 15211 2546 Jul, Back pain M54.9 [facility] [address] [facility] [id number] [place] [address] 18198 2546 Jun, Back pain M54.9 [facility] [address] [facility] [id number] [place] [address] 07999 2546 Jun, Back pain M54.9 [facility] [address] [facility] [id number] [place] [address] 20787 2546 May, Back pain M54.9 [facility] [address] [facility] [id number] [place] [address] 71733 2546 May, Back pain M54.9 [facility] [address] [facility] [id number] [place] [address] 46088 2546 May, Back pain M54.9 [facility] [address] [facility] [id number] [place] [address] 73536 2546 May, Back pain M54.9 [facility] [id number] [place] [address] 18188 2546 May, [facility] [address] [facility] [id number] [place] [address] 02341 2546 05 May, 2016 Back pain M54.9 and Pain in right knee M25.561 [facility] [address] [facility] [id number] [place] [address] 02621 2546 Apr, [facility] [address] [facility] [id number], [place] [address]- 2546 Apr, Type 2 diabetes mellitus without complication E11.9 ; Pain in right knee M25.561 and Pain in left knee M25.562 [facility] [id number] [place] [address] 35920- 3166 Mar, [facility] [address] 86040- 1472 Mar, [facility] [id number] [place] [address] 30366- 8122 Mar, [facility] [address] 02447- 2365 18 Mar, 2016 Restrictive lung disease J98.4 ; Anemia D64.9 and Cor pulmonale I27.81 [facility] [address] 36493- 5029 17 Mar, 2016 [facility] [id number] [place] [address] 03338- 7401 14 Mar, 2016 [facility] [address] 03890- 9258 Mar, [facility] [id number] [place] [address] 49878- 8271 30 Feb, 2016 [facility] [id number] [place] [address] 19411- 8565 29 Feb, 2016 [facility] [id number] [place] [address] 23899- 1624 28 Feb, 2016 [facility] [id number] [place] [address] 56520- 2244 27 Feb, 2016 Restrictive lung disease J98.4 [facility] [id number] [place] [address] 82857- 2876 23 Feb, 2016 [facility] [id number] [place] [address] 38467 -2226 22 Feb, 2016 [facility] [id number] [place] [address] 89808- 8032 16 Feb, 2016 [facility] [id number] [place] [address] 03936- 0800 Jan, [facility] [id number] [place] [address] 03827- 4158 Jan, [facility] [id number] [place] [address] 69552- 1063 Jan, [facility] [id number] [place] [address] 01429- 4617 Jan, [facility] [id number] [place] [address] 82713- 7504 Jan, Restrictive lung disease J98.4 ; Anemia D64.9 and Cor pulmonale I27.81 [facility] [id number] [place] [address] 41005- 3133 Dec, [facility] [id number] [place] [address] 42409- 6196 Dec, [facility] [id number] [place] [address] 78237- 0943 Nov, Arthritis M19.90 and Hypokalemia E87.6 [facility] [id number] [place] [address] 45177- 0109 Nov, Back pain M54.9 [facility] [id number] [place] [address] 42818- 6308 October, Back pain M54.9 [facility] [id number] [place] [address] 38410- 6215 October, Back pain M54.9 [facility] [id number] [place] [address] 70190- 9508 Sep, Scabies exposure Z20.89 [facility] [id number] [place] [address] 15750- 1900 Sep, Restrictive lung disease J98.4 [facility] [id number] [place] [address] 99245- 9742 Sep, Back pain M54.9 [facility] [id number] [place] [address] 62697- 2441 Sep, Restrictive lung disease J98.4 [facility] [id number] [place] [address] [phone]- [phone] Aug, [facility] [id number] [place] [address] [phone]- [phone] Aug, [facility] [id number] [place] [address] [phone]- [phone] Aug, [facility] [address] 69984- 5287 Aug, [facility] [id number] [place] [address] [phone]- [phone] Aug, Back pain M54.9 [facility] [id number] [place] [address] [phone]- 0791 Jul, Anemia D64.9 and Prediabetes R73.09 [facility] [id number] [place] [address] 91184- [phone] Jul, Back pain M54.9 [facility] [id number] [place] [address] [id number] Jul, Back pain M54.9 [facility] [id number] [place] [address] [phone] Jul, [facility] [id number] [place] [address] [id number] 2549 Jul, Bronchitis J40 and Anemia D64.9 [facility] [id number] [place] [address] [id number] [id number] Jun, [facility] [id number] [place] [address] [id number] [phone] Jun, [facility] [id number] [place] [address] [phone]- [phone] Jun, Bronchitis J40 and Anemia D64.9 [facility] [address] 19258- 5973 Jun, [facility] [address] 88167- 3670 Jun, Back pain M54.9 [facility] [address] 18156- 7510 Jun, Anemia D64.9 [facility] [address] 65493- 5549 Jun, Restrictive lung disease J98.4 ; Anemia D64.9 ; Hypothyroidism E03.9 ; Cor pulmonale I27.81 and Back pain M54.9 [facility] [address] 71744- 6037 May, [facility] [address] 10096- 6027 Apr, Anemia D64.9 ; Encounter for immunization Z23 and Restrictive lung disease J98.4 [facility] [address] 81526- 8880 Apr, [facility] [address] 15180- 0934 Mar, [facility] [address] 37746- 7763 Mar, Iron deficiency anemia D50.9 [facility] [id number] [place] [address] [id number]- [phone] Mar, [facility] [address] 01356- 4403 Mar, [facility] [id number] [place] [address] 49875- 4085 Mar, Anemia D64.9 [facility] [address] [place] [address] Mar, [facility] [id number] [place] [address] 55910- 8066 Mar, Anemia D64.9 [facility] [id number] [place] [address] [id number]- 5856 Mar, Restrictive lung disease J98.4 and Anemia D64.9 [facility] [facility] [address] [address]- 1344 Mar, [facility] [id number] [place] [address] 47304- 4707 Mar, Anemia D64.9 [facility] [id number] [place] [address] 46886- 9840 Mar, Anemia D64.9 [facility] [id number] [place] [address] 45291- 0171 Mar, [facility] [id number] [place] [address] 22565- 3094 Mar, Diabetes mellitus E11.9 ; Bronchitis J40 and Anemia D64.9 [facility] [id number] [place] [address] 29782- 9495 30 Feb, 2015 [facility] [id number] [place] [address] 18335- 8428 Feb, [facility] [id number] [place] [address] 20896- 1988 15 Feb, 2015 [facility] [id number] [place] [address] 35904- 3532 Feb, [facility] [id number] [place] [address] 95936- 2618 Jan, [facility] [id number] [place] [address] 99895- 5358 Jan, [facility] [id number] [place] [address] 05438- 5326 Dec, Venous insufficiency 459.81 [facility] [id number] [place] [address] 00080- 4452 Dec, [facility] [id number] [place] [address] 39650- 9315 Dec, [facility] [id number] [place] [address] 34635- 6840 Dec, Coronary atherosclerosis of unspecified type of vessel, [place] or graft 414.00 ; Unspecified anemia 285.9 and Generalized osteoarthrosis , unspecified site 715.00 [facility] [id number] [place] [address] 94683- 0675 Nov, [facility] [id number] [place] [address] 40493- 8529 Nov, [facility] [id number] [place] [address] 17703- 1002 Nov, [facility] [id number] [place] [address] 38701- 5088 October, [facility] [id number] [place] [address] 24774- 8849 October, Acute bronchitis 466.0 and Shortness of breath 786.05 [facility] [id number] [place] [address] 10567- 1944 Sep, [facility] [id number] [place] [address] 92306- 3487 Sep, [facility] [id number] [place] [address] 11539- 5974 Aug, [facility] [id number] [place] [address] 95920- 1983 Aug, [facility] [id number] [place] [address] 65616- 6413 Jul, [facility] [id number] [place] [address] 86890- 4206 Jul, [facility] [place] [facility] [address] [id number] [place] [address]- 5960 Jul, [facility] [place] [facility] [address] [id number] [place] [address]- 7654 Jul, [facility] [place] [facility] [address] [facility] [id number] [place] [address]- 8589 Jun, [facility] [place] [facility] [address] [id number] [place] [address]- 2005 Jun, [facility] [place] [facility] [address] [id number] [place] [address]- 9348 Jun, [facility] [place] [facility] [address] [id number] [place] [address]- 6110 Jun, [facility] [place] [facility] [address] [facility] [id number] [place] [address]- 4607 Jun, [facility] [place] [facility] [address] [facility] [id number] [place] [address]- 9374 Jun, [facility] [place] [facility] [address] [id number] [place] [address]- 9759 May, [facility] [place] [facility] [address] [facility] [id number] [place] [address]- 9401 May, [facility] [place] [facility] [address] [id number] [place] [address]- 7962 May, [facility] [place] [facility] [address] [id number], [place] [address]- 0913 May, [facility] [place] [facility] [address] [id number] [place] [address]- 8730 Apr, [facility] [place] [facility] [address] [id number] [place] [address]- 4380 Apr, [facility] [place] [facility] [address] [facility] [id number] [place] [address]- 8534 Apr, [facility] [place] [facility] [address] [id number] [place] [address]- 4813 Apr, [facility] [place] [facility] [address] [id number] [place] [address]- 2751 Apr, [facility] [place] [facility] [address] [id number] [place] [address]- 9364 Apr, [facility] [place] [facility] [address] [id number] [place] [address]- 6012 Mar, [facility] [place] [facility] [address] [id number] [place] 1499 Mar, [facility] [place] [facility] [address] [id number] [place] [address]- 7798 Mar, [facility] [place] [facility] [address] [id number] [place] [address]- 8263 Mar, [facility] [place] [facility] [address] [id number] [place] [address]- 9384 Mar, [facility] [place] [facility] [address] [id number] [place] [address]- 0081 Mar, [facility] [place] [facility] [address] [id number] [place] [address]- 7702 Mar, [facility] [place] [facility] [address] [id number] [place] [address]- 4285 Mar, [facility] [place] [facility] [address] [id number] [place] [address]- 4268 Feb, [facility] [place] [facility] [address] [id number] [place] [address]- 1165 Feb, [facility] [place] [facility] [address] [id number] [place] [address]- 5480 Jan, [facility] [place] [facility] [address] [id number] [place] [address]- 7806 Jan, [facility] [place] [facility] [address] [id number] [place] [address]- 3162 Jan, [facility] [place] [facility] [address] [id number] [place] [address]- 9686 Jan, [facility] [place] [facility] [address] [id number] [place] [address]- 7239 Jan, [facility] [place] [facility] [address] [id number] [place] [address]- 3713 Jan, [facility] [place] [facility] [address] [id number] [place] [address]- 7194 Dec, [facility] [place] [facility] [address] [id number] [place] [address]- 2393 Dec, [facility] [place] [facility] [address] [id number] [place] [address]- 8204 Dec, [facility] [place] [facility] [address] [id number] [place] [address]- 2216 Dec, [facility] [place] [facility] [address] [id number] [place] [address]- 0312 Nov, [facility] [place] [facility] [address] [id number] [place] [address]- 7521 Nov, [facility] [place] [facility] [address] [id number] [place] [address]- 0371 Nov, [facility] [place] [facility] [address] [id number] [place] [address]- 4481 Nov, [facility] [place] [facility] [address] [id number], [place] [address]- 3139 Nov, [facility] [place] [facility] [address] [id number] [place] [address]- 0790 Nov, [facility] [place] [facility] [address] [id number] [place] [address]- 3374 Nov, [facility] [place] [facility] [address] [id number] [place] [address]- 5793 Nov, [facility] [place] [facility] [address] [id number] [place] [address]- 8946 Nov, [facility] [place] [facility] [address] [id number] [place] [address]- 1624 Nov, [facility] [place] [facility] [address] [id number] [place] 5134 Nov, [facility] [place] [facility] [address] [id number] [place] [address]- 6566 Nov, [facility] [place] [facility] [address] [id number] [place] [address]- 5489 October, [facility] [place] [facility] [address] [id number] [place] 7882 October, [facility] [place] [facility] [address] [id number] [place] [address]- 0887 October, [facility] [place] [facility] [address] [id number] [place] [address]- 7716 October, [facility] [place] [facility] [address] [id number] [place] [address]- 6248 October, [facility] [place] [facility] [address] [id number] [place] [address]- 4536 October, [facility] [place] [facility] [address] [id number] [place] [address]- 4928 October, [facility] [place] [facility] [address] [id number] [place] 1223 October, [facility] [place] [facility] [address] [id number] [place] [address]- 9334 October, [facility] [place] [facility] [address] [id number] [place] [address]- 0463 Sep, [facility] [place] [facility] [address] [id number] [place] [address]- 8704 Sep, [facility] [place] [facility] [address] [id number] [place] [address]- 2683 Sep, [facility] [place] [facility] [address] [id number] [place] [address]- 2363 Sep, [facility] [place] [facility] [address] [id number] [place] [address]- 8243 Sep, [facility] [place] [facility] [address] [id number] [place] [address]- 0773 Sep, [facility] [place] [facility] [address] [id number] [place] [address]- 8914 Aug, [facility] [place] [facility] [address] [id number] [place] [address]- 0574 Aug, [facility] [place] [facility] [address] [id number] [place] [address]- 8368 Aug, [facility] [place] [facility] [address] [id number] [place] [address]- 4008 Aug, [facility] [place] [facility] [address] [id number] [place] [address]- 0823 Aug, [facility] [place] [facility] [address] [id number] [place] [address]- 8483 Aug, [facility] [place] [facility] [address] [id number] [place] [address]- 7758 Aug, [facility] [place] [facility] [address] [id number] [place] [address]- 3607 Aug, [facility] [place] [facility] [address] [id number] [place] [address]- 5465 Aug, [facility] [place] [facility] [address] [id number] [place] 8228 Aug, [facility] [place] [facility] [address] [id number] [place] [address]- 0985 Jul, [facility] [place] [facility] [address] [id number] [place] 3773 Jul, [facility] [place] [facility] [address] [id number] [place] [address]- 8798 Jun, [facility] [address] [id number] [place] [address]- 8245 Jun, [facility] [place] [facility] [address] [id number] [place] [address]- 7800 Jun, [facility] [place] [facility] [address] [id number] [place] [address]- 4941 Jun, [facility] [place] [facility] [address] [id number] [place] [address]- 5542 Jun, [facility] [place] [facility] [address] [id number] [place] [address]- 5824 Jun, [facility] [place] [facility] [address] [id number] [place] [address]- 2602 Jun, [facility] [address] [id number] [place] [address]- 7316 Jun, [facility] [place] [facility] [address] [id number] [place] [address]- 3054 May, [facility] [address] [id number] [place] [address]- 2078 May, [facility] [place] [facility] [address] [id number] [place] [address]- 5253 May, [facility] [place] [facility] [address] [id number] [place] [address]- 0784 May, [facility] [place] [facility] [address] [id number] [place] [address]- 8169 May, [facility] [place] [facility] [address] [id number] [place] [address]- 2547 May, [facility] [place] [facility] [address] [id number] [place] [address]- 7147 May, [facility] [place] [facility] [address] [id number] [place] [address]- 7531 May, [facility] [place] [facility] [address] [id number] [place] [address]- 1776 May, [facility] [place] [facility] [address] [id number] [place] [address]- 3078 Apr, [facility] [place] [facility] [address] [id number] [place] [address]- 6990 Apr, [facility] [place] [facility] [address] [id number] [place] [address]- 4181 Apr, [facility] [place] [facility] [address] [id number] [place] [address]- 6780 Apr, [facility] [place] [facility] [address] [id number] [place] 5189 Mar, [facility] [place] [facility] [address] [id number] [place] [address]- 2844 Mar, [facility] [place] [facility] [address] [id number] [place] [address]- 1502 Mar, [facility] [place] [facility] [address] [id number] [place] [address]- 3585 Mar, [facility] [place] [facility] [address] [id number] [place] [address]- 3900 Mar, [facility] [place] [facility] [address] [id number] [place] [address]- 3951 Mar, [facility] [place] [facility] [address] [id number] [place] [address]- 2220 Mar, [facility] [place] [facility] [address] [id number] [place] [address]- 3485 Mar, [facility] [place] [facility] [address] [id number] [place] [address]- 3492 Mar, [facility] [place] [facility] [address] [id number] [place] 1904 Mar, [facility] [place] [facility] [address] [id number] [place] [address]- 2882 Mar, [facility] [place] [facility] [address] [id number] [place] [address]- 2863 18 Mar, 2012 [facility] [place] [facility] [address] [id number] [place] [address]- 1419 18 Mar, 2012 [facility] [place] [facility] [address] [id number] [place] [address]- 2678 18 Mar, 2012 [facility] [place] [facility] [address] [id number] [place] [address]- 6282 18 Mar, 2012 [facility] [place] [facility] [address] [id number] [place] [address]- 8710 18 Mar, 2012 [facility] [place] [facility] [address] [id number] [place] [address]- 0807 17 Mar, 2012 [facility] [place] [facility] [address] [id number] [place] [address]- 2722 17 Mar, 2012 [facility] [place] [facility] [address] [id number], [place] [address]- 8906 15 Mar, 2012 [facility] [place] [facility] [address] [id number] [place] [address]- 7298 15 Mar, 2012 [facility] [place] [facility] [address] [id number], [place] [address]- 0155 14 Mar, 2012 [facility] [place] [facility] [address] [id number], [place] [address]- 4705 14 Mar, 2012 [facility] [place] [facility] [address] [id number], [place] [address]- 9230 14 Mar, 2012 [facility] [place] [facility] [address] [id number], [place] [address]- 7797 14 Mar, 2012 [facility] [place] [facility] [address] [id number], [place] [address]- 2521 12 Mar, 2012 [facility] [place] [facility] [address] [id number], [place] [address]- 5411 11 Mar, 2012 [facility] [place] [facility] [address] [id number] [place] [address]- 9025 11 Mar, 2013 [facility] [place] [facility] [address] [id number] [place] [address]- 4322 10 Mar, 2012 [facility] [place] [facility] [address] [id number] [place] [address]- 2514 10 Mar, 2013 [facility] [place] [facility] [address] [id number] [place] [address]- 6435 10 Mar, 2012 [facility] [place] [facility] [address] [id number] [place] [address]- 8847 10 Mar, 2013 [facility] [place] [facility] [address] [id number] [place] [address]- 9351 04 Mar, 2013 [facility] [place] [facility] [address] [id number] [place] [address]- 3058 Mar, [facility] [place] [facility] [address] [id number] [place] [address]- 5790 27 Feb, 2012 [facility] [place] [facility] [address] [id number] [place] [address]- 8343 11 Feb, 2013 [facility] [place] [facility] [address] [id number] [place] [address]- 1307 04 Feb, 2013 [facility] [place] [facility] [address] [id number] [place] [address]- 1837 03 Feb, 2013 [facility] [place] [facility] [address] [id number] [place] [address]- 6653 29 Jan, 2013 [facility] [place] [facility] [address] [id number] [place] [address]- 2547 Jan, [facility] [place] [facility] [address] [id number] [place] [address]- 4485 Jan, [facility] [place] [facility] [address] [id number] [place] [address]- 6247 Jan, [facility] [place] [facility] [address] [id number] [place] [address]- 9740 16 Jan, 2013 [facility] [place] [facility] [address] [id number] [place] [address]- 9844 Jan, [facility] [address] [id number] [place] [address]- 6788 Dec, [facility] [place] [facility] [address] [id number] [place] [address]- 8901 Dec, [facility] [place] [facility] [address] [id number] [place] [address]- 2000 Dec, [facility] [place] [facility] [address] [id number] [place] [address]- 8067 Dec, [facility] [place] [facility] [address] [id number] [place] [address]- 4362 Dec, [facility] [address] [id number] [place] [address]- 5061 Dec, [facility] [address] [id number] [place] [address]- 0981 Dec, [facility] [address] [id number] [place] [address]- 2952 Dec, [facility] [place] [facility] [address] [id number] [place] [address]- 4826 Dec, [facility] [place] [facility] [address] [id number] [place] [address]- 2455 Dec, [facility] [place] [facility] [address] [id number] [place] [address]- 7971 Dec, [facility] [place] [facility] [address] [id number] [place] [address]- 1624 October, [facility] [place] [facility] [address] [id number] [place] [address]- 2353 October, [facility] [place] [facility] [address] [id number] [place] [address]- 4537 October, [facility] [place] [facility] [address] [id number] [place] [address]- 8490 October, [facility] [id number] [place] [address]- 4422 Sep, [facility] [id number], [place] [address]- 1324 Sep, [facility] [id number], [place] [address] Sep, [facility] [id number], [place] [address] Sep, [facility] [id number], [place] [address] Sep, [facility] [id number] [place] [address] Sep, [facility] [id number] [place] [address] Sep, [facility] [id number] [place] [address] Sep, [facility] [id number], [place] [address] Sep, [facility] [id number], [place] [address] Sep, [facility] [id number], [place] [address] Sep, IMMUNIZATIONS No Known Immunizations SOCIAL HISTORY Never Assessed REASON FOR VISIT needs refills. PLAN OF CARE VITAL SIGNS MEDICATIONS Medication Instructions Dosage Frequency Start Date End Date Duration Status Fentanyl 75 MCG/HR Transdermal once every 3 days. 1 patch to skin Mar Active Percocet 7.5-325 MG Orally 4 times a day 1 tablet 6h Mar, 28 days Active RESULTS No Results [...] 09/2015 Hospitalization History Acute dyspnea, muscle cramps--[facility] 03/04/16 Hospitalization History RLE Cellulitis, Hypokalemia, anemia-[facility] 09/29/15 Hospitalization History Lower edema 09/2016 Hospitalization History Received stitches ER 10/2016
--- OUTSIDE RECORDS SUMMARY | 2018-07-12 08:12 | XMS REPORT ---
Author Author JAN HERNANDEZ [facility] Address [address] [place] [address] Care Team Providers Care Foot Worker Name Role Phone JAN HERNANDEZ Unavailable PROBLEMS Type Condition ICD9-CM Code KDE52-RI Code Onset Dates Condition Status SNOMED Code Problem Prediabetes R73.09 Active 1427459 Problem Arthritis M19.90 Active 8243246 Problem Hypokalemia E87.6 Active 64482248 Problem Coronary artery disease involving [place] coronary artery of [place] heart without angina pectoris I25.10 Active 2090375331499 Problem Skin cancer of face C44.300 Active 346829672 Problem Morbid (severe) obesity due to excess calories E66.01 Active 856399049 Problem Body mass index (BMI) of 45.0-49.9 in adult Z68.42 Active 986327945 Problem Venous insufficiency I87.2 Active 81836767 Problem 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 Active 952938110 Problem Anemia D64.9 Active 850632638 Problem Cor pulmonale I27.81 Active 82740462 Problem Back pain M54.9 Active 149717893 Problem Restrictive lung disease J98.4 Active 04807593 Problem Hypothyroidism E03.9 Active 11272141 ALLERGIES No Information ENCOUNTERS Encounter Location Date Diagnosis [facility] [id number] [address] Mar, [facility] [id number] [address] Mar, Arthritis M19.90 and Back pain M54.9 [facility] [id number] [address] 6060 Mar, [facility] [id number] [address] 5073 Mar, [facility] [address] [facility] [id number] [address] Feb, Arthritis M19.90 [facility] [address] [facility] [id number] [place] [address] 38296- 4206 Jan, Arthritis M19.90 [facility] [address] [facility] [id number] [place] [address] 47286- 1532 Jan, Back pain M54.9 and Arthritis M19.90 [facility] [address] [facility] [id number] [place] [address] 44983- 3964 Jan, [facility] [address] [facility] [id number] [place] [address] 05516- 8713 Jan, Back pain M54.9 [facility] [address] [facility] [id number] [place] [address] 49749- 9291 Jan, Arthritis M19.90 [facility] [address] [facility] [id number] [place] [address] 95384- 6203 Jan, Back pain M54.9 [facility] [address] [facility] [id number] [place] [address] 59643- 2422 Jan, [facility] [address] [facility] [id number] [place] [address] 75288- 4093 Jan, Back pain M54.9 [facility] [address] [facility] [id number] [address] Dec, Ingrowing nail with infection L60.0 and Onychomycosis B35.1 [facility] [address] [facility] [id number] [address] 9378 Dec, Arthritis M19.90 [facility] [address] [facility] [id number] [address] 4207 Dec, Ingrowing nail L60.0 [facility] [address] [facility] [id number] [address] 4619 Dec, Back pain M54.9 [facility] [address] [address] Dec, [facility] [id number] [place] [address] 98356- 4927 Dec, Back pain M54.9 [facility] [id number] [place] [address] 77656- 8102 Nov, Arthritis M19.90 [facility] [id number] [place] [address] 47365- 1860 Nov, [facility] [id number] [place] [address] 32847- 8161 Nov, Arthritis M19.90 ; Anemia D64.9 ; Restrictive lung disease J98.4 ; Weakness R53.1 and BMI 50.0-59.9, adult Z68.43 [facility] [id number] [place] [address] 39172- 8365 Nov, Arthritis M19.90 [facility] [id number] [place] [address] 49462- 2209 Nov, Back pain M54.9 [facility] [id number] [place] [address] 88783- 5433 October, Back pain M54.9 [facility] [id number] [place] [address] 70211- 6965 October, Back pain M54.9 [facility] [id number] [place] [address] 89273- 3951 Sep, Back pain M54.9 [facility] [id number] [place] [address] 48333- 6560 Sep, Back pain M54.9 [facility] [id number] [place] [address] 57036 -4971 Sep, [facility] [id number] [place] [address] 72063 -3017 Sep, [facility] [address] [address] Sep, Swelling of right lower extremity M79.89 and Cellulitis of right lower extremity L03.115 [facility] [id number] [place] [address] 22639- 6368 27 Aug, 2017 Back pain M54.9 [facility] [id number] [place] [address] 17340- 7170 15 Aug, 2017 Back pain M54.9 [facility] [id number] [place] [address] 04654- 8370 Aug, [facility] [id number] [place] [address] 04308- 7852 Aug, Cellulitis of right lower extremity L03.115 ; Ventral hernia without obstruction or gangrene K43.9 and BMI 50.0-59.9, adult Z68.43 [facility] [id number] [place] [address] 52047- 2230 Jul, Back pain M54.9 [facility] [id number] [place] [address] 46083- 8236 28 Jul, 2017 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 Z79.891 ; Arthritis M19.90 ; Back pain M54.9 ; Prediabetes R73.09 ; Hypothyroidism E03.9 ; Coronary artery disease involving [place] coronary artery of [place] heart without angina pectoris I25.10 and Anemia D64.9 [facility] [id number] [place] [address] 29670- 2173 27 Jul, 2017 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 Z79.891 ; Back pain M54.9 ; Arthritis M19.90 ; Prediabetes R73.09 ; Hypothyroidism E03.9 ; Coronary artery disease involving [place] coronary artery of [place] heart without angina pectoris I25.10 ; Anemia D64.9 and BMI 45.0-49.9, adult Z68.42 [facility] [id number] [place] [address] 27180- 9098 15 Jul, 2017 Back pain M54.9 [facility] [id number] [place] [address] 82342- 4413 Jul, Back pain M54.9 [facility] [id number] [place] [address] 03180- 4679 Jun, Back pain M54.9 [facility] [id number] [place] [address] 03133- 4800 Jun, Back pain M54.9 [facility] [id number] [place] [address] 59973 -9686 May, Skin cancer of face C44.300 and BMI 45.0-49.9, adult Z68.42 [facility] [id number] [place] [address] 45892- 4795 May, [facility] [id number] [place] [address] 99617- 3732 May, Back pain M54.9 [facility] [id number] [place] [address] 49534- 9416 May, Back pain M54.9 [facility] [id number] [place] [address] 69282- 8347 May, Back pain M54.9 [facility] [id number] [place] [address] 04907- 3933 Apr, Back pain M54.9 [facility] [id number] [place] [address] 95358 2549 Apr, Back pain M54.9 [facility] [id number] [place] [address] 32628- 8938 Mar, Back pain M54.9 [facility] [id number] [place] [address] 17638- 6856 Mar, Anemia D64.9 ; Encounter for immunization Z23 ; Arthritis M19.90 and Right inguinal hernia K40.90 [facility] [address] [facility] [id number] [place] [address] 82404- 9156 Mar, Back pain M54.9 [facility] [address] [facility] [id number] [place] [address] 64230 2546 Feb, Back pain M54.9 [facility] [address] [facility] [id number] [place] [address] 03962 2546 Feb, Back pain M54.9 [facility] [address] [facility] [id number] [place] [address] 21600 2546 Jan, Back pain M54.9 [facility] [address] [facility] [id number] [place] [address] 06074 2546 Jan, Back pain M54.9 [facility] [id number] [place] [address] 76855- 2326 Jan, [facility] [id number] [place] [address] 92050 2543 Jan, Back pain M54.9 [facility] [id number] [place] [address] 04328 2546 Dec, Back pain M54.9 [facility] [id number] [place] [address] 55299 2540 Dec, Back pain M54.9 [facility] [id number] [place] [address] 17317 2546 Dec, [facility] [address] [facility] [id number] [place] [address] 52120 2549 Nov, Hypokalemia E87.6 [facility] [address] [facility] [id number] [place] [address] 51932 2546 Nov, Back pain M54.9 [facility] [id number] [place] [address] 26574 2546 Nov, [facility] [id number] [place] [address] 93577- 6156 27 Nov, 2016 Arthritis M19.90 [address] [address] 32021- 2537 Nov, Back pain M54.9 [address] [id number] [place] [address] 81160- 3751 Nov, Generalized edema R60.1 [address] [address] 28684- 8526 Nov, Back pain M54.9 [facility] [id number] [place] [address] 23877- 1882 07 Nov, 2016 Pain in right knee M25.561 [facility] [id number] [place] [address] 05662- 6116 05 Nov, 2016 Encounter for removal of sutures Z48.02 and Pain in right knee M25.561 [facility] [id number] [place] [address] 55064 -1833 Nov, Abrasion of right foot, subsequent encounter S90.811D [facility] [address] 10048 -6466 October, Toe abrasion, right, initial encounter S90.414A [facility] [id number] [place] [address] 09578- 6936 October, [address] [id number] [place] [address] 30671- 4988 October, Back pain M54.9 [address] [id number] [place] [address] 69240- 5219 October, Venous insufficiency I87.2 [address] [id number] [place] [address] 96813- 6684 October, Pain in right knee M25.561 [facility] [id number] [place] [address] 38152- 9171 Sep, Back pain M54.9 [facility] [id number] [place] [address] 44610- 0338 Sep, Venous insufficiency I87.2 [facility] [address] [id number] Sep, [facility] [id number] [place] [address] 28425 -7605 Sep, Leg edema, right R60.0 and Cellulitis of right lower extremity L03.115 [facility] [address] 63289- 6466 14 Sep, 2016 Pedal edema R60.0 [facility] [address] 94553- 7166 Sep, 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 ; Pain in right knee M25.561 and Arthritis M19.90 [facility] [address] 25066- 9660 Aug, Back pain M54.9 [facility] [address] 60986- 4670 Aug, Back pain M54.9 [facility] [id number] [place] [address] 31009- 0539 Aug, [facility] [address] 78490- 5659 Aug, Type 2 diabetes mellitus without complication E11.9 ; Restrictive lung disease J98.4 ; Arthritis M19.90 ; Back pain M54.9 ; Body mass index (BMI) of 45.0-49.9 in adult Z68.42 and Morbid (severe) obesity due to excess calories E66.01 [facility] [id number] [place] [address] 65844- 0723 Aug, Back pain M54.9 [facility] [address] 39674- 9422 Aug, Back pain M54.9 [facility] [address] [facility] [id number] [address]- 1606 Jul, [facility] [address] [facility] [id number] [place] [address] 48066- 9976 Jul, Back pain M54.9 [facility] [address] [facility] [id number] [place] [address] 03785- 0456 Jul, Back pain M54.9 [facility] [address] [facility] [id number] [place] [address] 23628- 6746 Jun, Back pain M54.9 [facility] [address] [facility] [id number] [place] [address] 83130- 6499 Jun, Back pain M54.9 [facility] [address] [facility] [id number] [place] [address] 21762- 6106 May, Back pain M54.9 [facility] [address] [facility] [id number] [place] [address] 51540- 2786 16 May, 2016 Back pain M54.9 [facility] [address] [facility] [id number] [place] [address] 42183- 8395 May, Back pain M54.9 [facility] [address] [facility] [id number] [place] [address] 37232- 7262 May, Back pain M54.9 [facility] [address] [facility] [id number] [place] [address] 40360- 1696 May, [facility] [address] [facility] [id number] [place] [address] 26105- 4879 05 May, 2016 Back pain M54.9 and Pain in right knee M25.561 [facility] [address] [facility] [id number] [place] [address] 43229- 5747 Apr, [facility] [address] [facility] [id number] [address]- 3591 Apr, Type 2 diabetes mellitus without complication E11.9 ; Pain in right knee M25.561 and Pain in left knee M25.562 [facility] [id number] [place] [address] 45506- 9077 Mar, [facility] [id number] [place] [address] 44180- 9298 Mar, [facility] [id number] [place] [address] 38496- 8641 Mar, [facility] [id number] [place] [address] 20312- 9525 18 Mar, 2016 Restrictive lung disease J98.4 ; Anemia D64.9 and Cor pulmonale I27.81 [facility] [id number] [place] [address] 59507- 7098 17 Mar, 2016 [facility] [id number] [place] [address] 97325- 2612 14 Mar, 2016 [facility] [id number] [place] [address] 99786- 8396 Mar, [facility] [id number] [place] [address] 35174- 3920 30 Feb, 2016 [facility] [id number] [place] [address] 03411- 9918 29 Feb, 2016 [facility] [id number] [place] [address] 19389- 7334 28 Feb, 2016 [facility] [id number] [place] [address] 85235- 5064 27 Feb, 2016 Restrictive lung disease J98.4 [facility] [id number] [place] [address] 95794- 3247 23 Feb, 2016 [facility] [id number] [place] [address] 79942 -0753 22 Feb, 2016 [facility] [id number] [place] [address] 75631- 2612 16 Feb, 2016 [facility] [address] [address]- 3982 Jan, [facility] [id number] [place] [address] 78481- 5425 Jan, [facility] [id number] [place] [address] 66776- 2555 Jan, [facility] [id number] [place] [address] 52148- 6314 Jan, [facility] [id number] [place] [address] 33135- 3421 Jan, Restrictive lung disease J98.4 ; Anemia D64.9 and Cor pulmonale I27.81 [facility] [id number] [place] [address] 54057- 7251 Dec, [facility] [id number] [place] [address] 13492- 2248 Dec, [facility] [id number] [place] [address] 36905- 9440 Nov, Arthritis M19.90 and Hypokalemia E87.6 [facility] [id number] [place] [address] 63280- 7196 Nov, Back pain M54.9 [facility] [id number] [place] [address] 98506- 3004 October, Back pain M54.9 [facility] [id number] [place] [address] 47261- 5666 October, Back pain M54.9 [facility] [id number] [place] [address] 18198- 9492 Sep, Scabies exposure Z20.89 [facility] [id number] [place] [address] 90280- 3852 Sep, Restrictive lung disease J98.4 [facility] [id number] [place] [address] 11472- 3848 Sep, Back pain M54.9 [facility] [id number] [place] [address] 48069- 7826 Sep, Restrictive lung disease J98.4 [facility] [address] [address] 2546 Aug, [facility] [id number] [place] [address] 29946 2546 Aug, [facility] [id number] [place] [address] 44049 2545 Aug, [facility] [id number] [place] [address] 63147- 5673 Aug, [facility] [id number] [place] [address] 41108- 6062 Aug, Back pain M54.9 [facility] [id number] [place] [address] 04063- 8367 Jul, Anemia D64.9 and Prediabetes R73.09 [facility] [id number] [place] [address] 16401- 4749 Jul, Back pain M54.9 [facility] [id number] [place] [address] 21643 2546 Jul, Back pain M54.9 [facility] [id number] [place] [address] 31516 2546 Jul, [facility] [id number] [place] [address] 89972 2541 Jul, Bronchitis J40 and Anemia D64.9 [facility] [id number] [place] [address] 30175 2546 Jun, [facility] [id number] [place] [address] [id number] 2546 Jun, [facility] [id number] [place] [address] Jun, Bronchitis J40 and Anemia D64.9 [facility] [address] 78689- 5442 Jun, [facility] [id number] [place] [address] 38081- 6105 Jun, Back pain M54.9 [facility] [address] 84827- 6793 Jun, Anemia D64.9 [facility] [address] 61864- 5792 Jun, Restrictive lung disease J98.4 ; Anemia D64.9 ; Hypothyroidism E03.9 ; Cor pulmonale I27.81 and Back pain M54.9 [facility] [id number] [place] [address] 65915- 5060 May, [facility] [address] 06369- 0511 Apr, Anemia D64.9 ; Encounter for immunization Z23 and Restrictive lung disease J98.4 [facility] [id number] [place] [address] [id number]- 7763 Apr, [facility] [id number] [place] [address] 28560- 7845 Mar, [facility] [id number] [place] [address] 30003- 9246 Mar, Iron deficiency anemia D50.9 [facility] [id number] [place] [address] 05762- 8890 Mar, [facility] [id number] [place] [address] 34129- 9427 Mar, [facility] [id number] [place] [address] 55633- 9197 Mar, Anemia D64.9 [facility] [facility] [id number] [place] [address] 09901- 2689 Mar, [facility] [id number] [place] [address] 05300- 7299 Mar, Anemia D64.9 [facility] [id number] [place] [address] 15089- 2546 Mar, Restrictive lung disease J98.4 and Anemia D64.9 [facility] [id number] [place] [address] 23105- 4950 Mar, [facility] [id number] [place] [address] 06156- 1893 Mar, Anemia D64.9 [facility] [id number] [place] [address] 95069- 6017 Mar, Anemia D64.9 [facility] [id number] [place] [address] 00060- 1758 Mar, [facility] [id number] [place] [address] 01967- 6295 Mar, Diabetes mellitus E11.9 ; Bronchitis J40 and Anemia D64.9 [facility] [id number] [place] [address] 63717- 1332 30 Feb, 2015 [facility] [id number] [place] [address] 85801- 0471 Feb, [facility] [id number] [place] [address] 45727- 8483 15 Feb, 2015 [facility] [id number] [place] [address] 02870- 0706 Feb, [facility] [id number] [place] [address] 45884- 8375 Jan, [facility] [id number] [place] [address] 77588- 1446 Jan, [facility] [id number] [place] [address] 20565- 5628 Dec, Venous insufficiency 459.81 [facility] [id number] [place] [address] 03060- 0307 Dec, [facility] [id number] [place] [address] 205571- 0920 Dec, [facility] [id number] [place] [address] 765931- 0648 Dec, Coronary atherosclerosis of unspecified type of vessel, [place] or graft 414.00 ; Unspecified anemia 285.9 and Generalized osteoarthrosis , unspecified site 715.00 [facility] [id number] [place] [address] 705131- 8065 Nov, [facility] [id number] [place] [address] 56910- 0918 Nov, [facility] [id number] [place] [address] 53873- 8654 Nov, [facility] [id number] [place] [address] 76834- 7106 October, [facility] [id number] [place] [address] 50518- 4747 October, Acute bronchitis 466.0 and Shortness of breath 786.05 [facility] [id number] [address]- 9677 Sep, [facility] [id number] [place] [address] 07900- 9069 Sep, [facility] [id number] [address]- 5952 Aug, [facility] [id number] [place] [address] 619854- 6542 Aug, [facility] [id number] 4930 Jul, [facility] [id number] [place] [address] [place] [address]- 8519 Jul, [facility] [place] [facility] [address] [id number] [place] [address]- 5693 Jul, [facility] [place] [facility] [address] [id number] [place] [address]- 0256 Jul, [facility] [place] [facility] [address] [id number] [place] [address]- 6928 Jun, [facility] [place] [facility] [address] [id number] [place] [address]- 9170 Jun, [facility] [place] [facility] [address] [id number] [place] [address]- 5026 Jun, [facility] [place] [facility] [address] [id number] [place] [address]- 2318 Jun, [facility] [place] [facility] [address] [id number] [place] [address]- 8657 Jun, [facility] [place] [facility] [address] [id number] [place] [address]- 5908 Jun, [facility] [place] [facility] [address] [id number] [place] [address]- 1578 May, [facility] [place] [facility] [address] [id number] [place] [address]- 1017 May, [facility] [place] [facility] [address] [id number] [place] [address]- 2686 May, [facility] [place] [facility] [address] [id number] [place] [address]- 9642 May, [facility] [place] [facility] [address] [id number] [place] [address]- 1632 Apr, [facility] [place] [facility] [address] [id number] [place] [address]- 2807 Apr, [facility] [place] [facility] [address] [id number] [place] [address]- 4082 Apr, [facility] [place] [facility] [address] [id number] [place] [address]- 6332 Apr, [facility] [place] [facility] [address] [id number] [place] [address]- 9935 Apr, [facility] [place] [facility] [address] [id number] [place] [address]- 6797 Apr, [facility] [place] [facility] [address] [id number] [place] [address]- 4056 Mar, [facility] [place] [facility] [address] [id number] [place] [address]- 4350 Mar, [facility] [place] [facility] [address] [id number] [place] [address]- 2773 Mar, [facility] [place] [facility] [address] [id number] [place] [address]- 2736 Mar, [facility] [place] [facility] [address] [id number] [place] [address]- 7461 Mar, [facility] [place] [facility] [address] [id number] [place] [address]- 0115 Mar, [facility] [place] [facility] [address] [id number] [place] [address]- 5025 Mar, [facility] [place] [facility] [address] [id number] [place] [address]- 1984 Mar, [facility] [place] [facility] [address] [id number] [place] [address]- 0914 Feb, [facility] [place] [facility] [address] [id number] [place] [address]- 5833 Feb, [facility] [place] [facility] [address] [id number] [place] [address]- 1401 Jan, [facility] [place] [facility] [address] [id number] [place] [address]- 2704 Jan, [facility] [place] [facility] [address] [id number] [place] [address]- 9552 Jan, [facility] [place] [facility] [address] [id number] [place] [address]- 4710 Jan, [facility] [place] [facility] [address] [id number] [place] [address]- 8145 Jan, [facility] [place] [facility] [address] [id number] [place] [address]- 4132 Jan, [facility] [place] [facility] [address] [id number] [place] [address]- 7033 Dec, [facility] [place] [facility] [address] [id number] [place] [address]- 0087 Dec, [facility] [place] [facility] [address] [id number] [place] [address]- 4784 Dec, [facility] [place] [facility] [address] [id number] [place] [address]- 9302 Dec, [facility] [place] [facility] [address] [id number] [place] [address]- 3760 Nov, [facility] [place] [facility] [address] [id number] [place] [address]- 2824 Nov, [facility] [place] [facility] [address] [id number] [place] [address]- 3259 Nov, [facility] [place] [facility] [address] [id number] [place] [address]- 3022 Nov, [facility] [place] [facility] [address] [id number] [place] [address]- 5057 Nov, [facility] [place] [facility] [address] [id number] [place] [address]- 0604 Nov, [facility] [place] [facility] [address] [id number] [place] [address]- 1477 Nov, [facility] [place] [facility] [address] [id number] [place] [address]- 5449 Nov, [facility] [place] [facility] [address] [id number] [place] [address]- 5076 Nov, [facility] [address] [id number] [place] [address]- 2429 Nov, [facility] [place] [facility] [address] [id number] [place] [address]- 6146 Nov, [facility] [address] [id number] [place] [address]- 7903 Nov, [facility] [place] [facility] [address] [id number] [place] [address]- 6325 October, [facility] [address] [id number] [place] [address]- 0472 October, [facility] [place] [facility] [address] [id number] [place] [address]- 3940 October, [facility] [place] [facility] [address] [id number] [place] [address]- 6700 October, [facility] [address] [id number] [place] [address]- 2297 October, [facility] [place] [facility] [address] [id number] [place] [address]- 5728 October, [facility] [address] [id number] [place] [address]- 7214 October, [facility] [place] [facility] [address] [id number] [place] [address]- 4706 October, [facility] [place] [facility] [address] [id number] [place] [address]- 0065 October, [facility] [place] [facility] [address] [id number] [place] [address]- 7329 Sep, [facility] [place] [facility] [address] [id number] [place] [address]- 3036 Sep, [facility] [place] [facility] [address] [id number] [place] [address]- 5491 Sep, [facility] [place] [facility] [address] [id number] [place] [address]- 3315 Sep, [facility] [place] [facility] [address] [id number] [place] [address]- 0030 Sep, [facility] [place] [facility] [address] [id number] [place] [address]- 3022 Sep, [facility] [place] [facility] [address] [id number] [place] [address]- 0789 Aug, [facility] [place] [facility] [address] [id number] [place] [address]- 3611 Aug, [facility] [place] [facility] [address] [id number] [place] [address]- 2031 Aug, [facility] [place] [facility] [address] [id number] [place] [address]- 0234 Aug, [facility] [place] [facility] [address] [id number] [place] [address]- 3277 Aug, [facility] [place] [facility] [address] [id number] [place] [address]- 1762 Aug, [facility] [place] [facility] [address] [id number] [place] [address]- 2691 Aug, [facility] [place] [facility] [address] [id number] [place] [address]- 4849 Aug, [facility] [place] [facility] [address] [id number] [place] [address]- 3785 Aug, [facility] [place] [facility] [address] [id number] [place] [address]- 7716 Aug, [facility] [place] [facility] [address] [id number] [place] [address]- 9955 Jul, [facility] [place] [facility] [address] [id number] [place] 1696 Jul, [facility] [place] [facility] [address] [id number] [place] [address]- 8123 Jun, [facility] [address] [id number] [place] [address]- 6927 Jun, [facility] [place] [facility] [address] [id number] [place] [address]- 8897 Jun, [facility] [place] [facility] [address] [id number] [place] [address]- 9893 Jun, [facility] [place] [facility] [address] [id number] [place] [address]- 8406 Jun, [facility] [place] [facility] [address] [id number] [place] [address]- 1259 Jun, [facility] [place] [facility] [address] [id number] [place] [address]- 4078 Jun, [facility] [address] [id number] [place] [address]- 3151 Jun, [facility] [place] [facility] [address] [id number] [place] [address]- 4746 May, [facility] [place] [facility] [address] [id number] [place] [address]- 0441 May, [facility] [place] [facility] [address] [id number] [place] [address]- 7609 May, [facility] [place] [facility] [address] [id number] [place] [address]- 4621 May, [facility] [place] [facility] [address] [id number] [place] [address]- 2548 May, [facility] [place] [facility] [address] [id number] [place] [address]- 5189 May, [facility] [place] [facility] [address] [id number] [place] [address]- 6647 May, [facility] [place] [facility] [address] [id number] [place] [address]- 3127 May, [facility] [place] [facility] [address] [id number] [place] [address]- 6587 May, [facility] [place] [facility] [address] [id number] [place] [address]- 7750 Apr, [facility] [place] [facility] [address] [id number] [place] [address]- 4980 Apr, [facility] [place] [facility] [address] [id number] [place] [address]- 4949 Apr, [facility] [place] [facility] [address] [id number] [place] [address]- 1564 Apr, [facility] [place] [facility] [address] [id number] [place] [address]- 7026 Mar, [facility] [place] [facility] [address] [id number] [place] [address]- 2298 Mar, [facility] [place] [facility] [address] [id number] [place] [address]- 7719 Mar, [facility] [place] [facility] [address] [id number] [place] [address]- 6687 Mar, [facility] [place] [facility] [address] [id number] [place] [address]- 3461 Mar, [facility] [place] [facility] [address] [id number] [place] [address]- 5483 Mar, [facility] [place] [facility] [address] [id number] [place] [address]- 9273 Mar, [facility] [place] [facility] [address] [id number] [place] [address]- 3591 Mar, [facility] [place] [facility] [address] [id number] [place] [address]- 4723 Mar, [facility] [place] [facility] [address] [id number] [place] [address]- 6922 Mar, [facility] [place] [facility] [address] [id number] [place] [address]- 2887 18 Mar, 2012 [facility] [place] [facility] [address] [id number] [place] [address]- 7845 18 Mar, 2012 [facility] [place] [facility] [address] [id number] [place] [address]- 0637 18 Mar, 2012 [facility] [place] [facility] [address] [id number] [place] [address]- 6546 18 Mar, 2012 [facility] [place] [facility] [address] [id number] [place] [address]- 4886 18 Mar, 2012 [facility] [place] [facility] [address] [id number] [place] [address]- 7178 18 Mar, 2012 [facility] [place] [facility] [address] [id number] [address]- 6232 17 Mar, 2012 [facility] [place] [facility] [address] [id number] [place] [address]- 8246 17 Mar, 2012 [facility] [place] [facility] [address] [id number] [place] [address]- 0128 15 Mar, 2012 [facility] [place] [facility] [address] [id number] [place] [address]- 7642 15 Mar, 2012 [facility] [place] [facility] [address] [id number] [place] [address]- 0582 14 Mar, 2012 [facility] [place] [facility] [address] [id number] [place] [address]- 0376 14 Mar, 2012 [facility] [place] [facility] [address] [id number] [place] [address]- 6651 14 Mar, 2012 [facility] [place] [facility] [address] [id number] [place] [address]- 4943 14 Mar, 2012 [facility] [place] [facility] [address] [id number] [place] [address]- 2546 12 Mar, 2012 [facility] [place] [facility] [address] [id number] [place] [address]- 8434 11 Mar, 2012 [facility] [place] [facility] [address] [id number] [place] [address]- 5680 11 Mar, 2013 [facility] [address] [id number] [place] [address]- 3964 Mar, [facility] [place] [facility] [address] [id number] [place] [address]- 9005 10 Mar, 2013 [facility] [place] [facility] [address] [id number] [place] [address]- 7844 10 Mar, 2012 [facility] [place] [facility] [address] [id number] [place] [address]- 0385 10 Mar, 2013 [facility] [place] [facility] [address] [id number] [place] [address]- 1743 Mar, [facility] [place] [facility] [address] [id number] [place] [address]- 5903 Mar, [facility] [place] [facility] [address] [id number] [place] [address]- 4481 27 Feb, 2013 [facility] [place] [facility] [address] [id number] [place] [address]- 2216 11 Feb, 2013 [facility] [place] [facility] [address] [id number] [place] [address]- 3979 04 Feb, 2013 [facility] [place] [facility] [address] [id number] [place] [address]- 6490 03 Feb, 2013 [facility] [place] [facility] [address] [id number] [place] [address]- 2543 29 Jan, 2013 [facility] [place] [facility] [address] [id number] [place] [address]- 2543 Jan, [facility] [place] [facility] [address] [id number] [place] [address]- 8855 Jan, [facility] [place] [facility] [address] [id number] [place] [address]- 2549 Jan, [facility] [place] [facility] [address] [id number] [place] [address]- 4834 Jan, [facility] [place] [facility] [address] [id number] [place] [address]- 1645 Jan, [facility] [place] [facility] [address] [id number] [place] [address]- 2335 Dec, [facility] [place] [facility] [address] [id number] [place] [address]- 7111 Dec, [facility] [place] [facility] [address] [id number] [place] [address]- 3875 Dec, [facility] [address] [id number] [place] [address]- 1450 Dec, [facility] [place] [facility] [address] [id number] [place] [address]- 8776 Dec, [facility] [address] [id number] [place] [address]- 0252 Dec, [facility] [address] [id number] [place] [address]- 8885 Dec, [facility] [place] [facility] [address] [id number] [place] [address]- 2220 Dec, [facility] [place] [facility] [address] [id number] [place] [address]- 1627 Dec, [facility] [place] [facility] [address] [id number] [place] [address]- 4961 Dec, [facility] [place] [facility] [address] [id number] [place] [address]- 6531 Dec, [facility] [place] [facility] [address] [id number] [place] [address]- 7680 October, [facility] [place] [facility] [address] [id number] [place] [address]- 1514 October, [facility] [place] [facility] [address] [id number] [place] [address]- 2897 October, [facility] [place] [facility] [address] [id number] [place] [address]- 4685 October, [facility] [id number] [address] Sep, [facility] [id number] [address] Sep, [facility] [id number] [address] Sep, [facility] [id number] [address] Sep, [facility] [id number] [place] [address] Sep, [facility] [id number] [place] [address] Sep, [facility] [id number] [place] [address] Sep, [facility] [address] [address] Sep, [facility] [address] [address] Sep, [facility] [address] [address] Sep, [facility] [address] [id number] [address] Sep, IMMUNIZATIONS No Known Immunizations SOCIAL HISTORY [...] problems 09/2015 Hospitalization History Acute dyspnea, muscle cramps--[facility] 03/04/16 Hospitalization History RLE Cellulitis, Hypokalemia, anemia-[facility] 09/29/15 Hospitalization History Lower edema 09/2016 Hospitalization History Received stitches ER 10/2016
[2018-07-12 08:44] LABS: HEMOGLOBIN 10.9 G/DL (11.5-16.0); MEAN PLATELET VOLUME 9.2 FL (7.4-10.4); RED CELL DISTRIBUTION WIDTH 14.5 % (10.0-14.5); WHITE BLOOD COUNT 8.6 10^3/uL (4.3-11.0)
[2018-07-12 08:56] LABS: PROTHROMBIN TIME PATIENT 12.8 SEC (12.2-14.7)
[2018-07-12 09:06] LABS: ALBUMIN 3.6 GM/DL (3.2-4.5); BILIRUBIN,TOTAL 0.3 MG/DL (0.1-1.0); CALCIUM 9.8 MG/DL (8.5-10.1); CREATININE SERUM 1.01 MG/DL (0.60-1.30); POTASSIUM 3.8 MMOL/L (3.6-5.0); TOTAL PROTEIN 7.2 GM/DL (6.4-8.2)
[2018-07-12] MEDS ORDERED: ATOR80TA76 PO (09:14)
[2018-07-12] MEDS ORDERED: LEVO200T6 PO (09:16)
[2018-07-12] MEDS ORDERED: METO-333 PO (09:17)
[2018-07-12] MEDS ORDERED: OXYC-464 PO (09:18)
--- NOTE | 2018-07-12 09:22 | Diagnostic Imaging Report ---
CLINICAL INDICATION: Preop chest x-ray, no complaints. Heart catheter and possible coronary angioplasty/stent. EXAM: Portable chest x-ray upright view. COMPARISON: Portable chest x-ray upright view dated 03/20/2018. CT angiogram of the chest dated 03/20/2018. FINDINGS: Patient is rotated on exam and the mediastinal structures are shifted towards the right causing increased opacification in the right mid and lower hemithorax region. There is suspected mild bibasilar atelectasis. There is no pleural effusion or pneumothorax. Right heart border is obscured. Pulmonary vasculature appears prominent centrally. There are degenerative spurs involving the thoracic spine. Oxygen tubing is seen overlying the chest. IMPRESSION: 1: Patient is rotated on exam and the mediastinal structures are shifted towards the right causing increased opacification overlying the right lung field region. 2: There is suspected mild bibasilar atelectasis, although subtle superimposed infiltrate cannot be completely excluded, but clinical correlation for patient symptoms would better evaluate. 3: Prominent pulmonary vasculature. Dictated by: Dictated on workstation # [id number]
[2018-07-12] MEDS ORDERED: FENT1PAT59 TD (09:24)
--- NOTE | 2018-07-12 09:26 | NUR ---
Spoke to patient she did not bring in bottles or a list. Went over medication list in chart with the patient. [facility] to verify medications.
--- NOTE | 2018-07-12 10:05 | Cardiac Procedure Note-CS/ASA ---
Pre-Procedure Note Pre-Op Procedure Note H&P Reviewed The H&P was reviewed, patient examined and no changes noted. Date H&P Reviewed: Jul 12, 2018 Time H&P Reviewed: 10:05 Conscious Sedation Pre-Proced Time 10:05 ASA Score 3 For ASA 3 and 4: Consider anesthesia and medical clearance. Also, for patients with a history of failed moderate sedation consider anesthesia. Airway Lungs Heart ASA score ASA 1: a normal healthy patient ASA 2: a patient with a mild systemic disease (mid diabetes, controlled hypertension, obesity x ASA 3: a patient with a severe systemic disease that limits activity (angina , COPD, prior Myocardial infarction) ASA 4: a patient with an incapacitating disease that is a constant threat to life (CHF, renal failure) ASA 5: a moribund patient not expected to survive 24 hrs. (ruptured aneurysm) ASA 6: a declared brain- patient whose organs are being harvested. For emergent operations, add the letter E after the classification Mallampati Classification Grade 3 Sedation Plan Analgesia, Amnesia, Plan communicated to team members, Discussed options with patient/fam, Discussed risks with patient/fam The patient is an appropriate candidate to undergo the planned procedure, sedation, and anesthesia. The patient immediately re-assessed prior to indication. ALLY MARINO MD Jul 12, 2018 10:05
[2018-07-12] MEDS ORDERED: HEParin 1000 UNIT/ML (10ML VIAL) FOR BOLUS ONE (10:21)
[2018-07-12] MEDS ORDERED: VERAPAMIL 5 MG/2 ML (CALAN) VIAL IV ONE (10:21)
[2018-07-12] MEDS ORDERED: fentaNYL INJECTION 100 MCG/2 ML AMP ONE (10:21)
[2018-07-12] MEDS ORDERED: MIDAZOLAM 5 MG/5 ML (VERSED) VIAL ONE (10:21)
[2018-07-12] MEDS ORDERED: NITRO DRIP 25000 MCG/D5W 250 ML IV ONE (10:22)
--- NOTE | 2018-07-12 11:26 | Discharge Inst-Post CATH ---
Discharge Inst-CATH/EP Post Cardiac Cath/EP D/C Inst Follow Up/Plan Appointment with Dr. De Leon's office in 4 weeks CARDIAC CATH DISCHARGE INSTRUCTIONS *Hold Metformin for 48 hours post heart cath. ACTIVITY * Go Home directly and rest. * Limit activity of the leg (or wrist if it was used) for 7 days including aerobics, swimming, jogging, bicycling, etc. * Restrict stair-climbing for 7 days if possible, if not, climb up with your non -cath leg, then bring together on the same step. * Avoid lifting, pushing, pulling or excessive movement of the affected extremity for 7 days. * Customary sexual activity may be resumed after 2 days-use caution not to use a position that strains or causes pain to the affected extremity. * No driving for 24 hours. * NO SMOKING. * Avoid straining for bowel movements for 7 days. * Gentle walking on level ground is allowed. * Returning to work will depend on the type of procedure and the results. Your doctor will discuss this with you. CALL YOUR DOCTOR FOR ANY OF THE FOLLOWING: *If bleeding from the puncture site occurs- Apply gentle pressure to site with clean cloth and call your doctor or EMS. * If a knot or lump forms under the skin, increases in size, or causes pain. * If bruising appears to be worsening or moving further down your leg instead of disappearing. * Temperature above 101 F. CARE OF YOUR GROIN INCISION; * Bruising or purple discoloration of the skin near the puncture site is common. * You may shower only, no bathtub bathing for 5 days. Be careful to avoid slipping as your leg may feel stiff. * If a closure device was used on your femoral artery, please see the attached guide regarding care of the device and your leg. * Leave the dressing on, until removed by office staff. CARE OF YOUR WRIST INCISION; * Bruising or purple discoloration of the skin near the puncture site is common. * You may shower. * DO NOT submerge wrist. * Leave dressing on, until removed by office staff.. ALLY DE LEON MD Jul 12, 2018 11:26
--- NOTE | 2018-07-12 11:30 | Cardiac Cath Report ---
Cardiac Cath Report Physician (s)/Topographical Surveyor (s) Physician ALLY MARINO MD Pre-Procedure Diagnosis Pre-Procedure Diagnosis: coronary artery disease Post-Procedure Note Procedure Start Date: Jul 12, 2018 Procedure Start Time: 11:27 Name of Procedure: left heart catheterization Findings/Procedure Note PROCEDURE NOTE: After explaining the procedure to the patient, all pros and cons were explained , all questions were answered. The patient signed the consent and then she was placed on the cardiac catheterization laboratory. Groin was prepped SL fashion local anesthesia was used. Sheath placed in the right radial artery. [place] catheter was advanced to the left ventricular cavity, pressure was measured, pullback LV to aorta was done, intubated the left corner system and angiogram was done, I was unable to intubate the right coronary system with the [place] exchange it over long J-wire into Jose right catheter and intubated the right coronary artery and angiogram was done At the end of the procedure the sheath was removed. vascular band was used FINDINGS: Hemodynamics LV 139/17, end-diastolic pressure of 17 Aorta 122/72 mean of 61 ANATOMY: Left Main is free of obstructive disease Left Anterior Descending has patent stent in the midportion nonobstructive disease mild disease distally Left Circumflex is free of obstructive disease Right Coronory Artery is dominant with mild disease nonobstructive disease LV Gram was not done, pressure was measured CONCLUSION: 1. Patent stent in the mid LAD with mild disease at the mid to distal LAD nonobstructive disease 2. Otherwise mild coronary artery disease nonobstructive disease 3. Normal left ventricular end-diastolic pressure DISCUSSION AND RECOMMENDATION: continue with medical therapy, no intervention is needed Anesthesia Type: Conscious Sedation Estimated blood loss (mL): 10 ml Contrast Amount: 70 ml Total Radiation Dose: 773 mGy Post-Procedure Diagnosis Post-operative diagnosis: Chest pain Coronary artery disease Hypertension Hyperlipidemia ALLY MARINO MD Jul 12, 2018 11:30
== END 2018-07-12 14:20 | disposition home or self-care (01) ==
LOC: CATH 07:54 → SDC 11:48 → CATH 14:20
PROVIDERS: ATTEND Internal Medicine Cardiovascular Disease
DX: R07.9 Chest pain, unspecified (principal); I25.10 Atherosclerotic heart disease of native coronary artery without angina pectoris; I10 Essential (primary) hypertension; E78.5 Hyperlipidemia, unspecified; R06.09 Other forms of dyspnea; E11.9 Type 2 diabetes mellitus without complications; J44.9 Chronic obstructive pulmonary disease, unspecified; I48.91 Unspecified atrial fibrillation; Z79.84 Long term (current) use of oral hypoglycemic drugs; Z79.899 Other long term (current) drug therapy; E03.9 Hypothyroidism, unspecified; E66.2 Morbid (severe) obesity with alveolar hypoventilation; I25.2 Old myocardial infarction; I65.23 Occlusion and stenosis of bilateral carotid arteries; Z99.81 Dependence on supplemental oxygen; Z85.828 Personal history of other malignant neoplasm of skin; Z68.42 Body mass index [BMI] 45.0-49.9, adult
CPT/HCPCS: 36415; 71045; 80053; 80061; 85027; 85610; 85730; 87081; 93458

== ENCOUNTER 2018-12-04 17:51 | Inpatient (IN) | payer MEDICAID ==
[~2018-12-04] VITALS: Ht 157.5 cm; Wt 139.3 kg
[~2018-12-04 17:51] MED LIST changes: +FENT1PAT59 TD
[2018-12-04] MEDS ORDERED: NS IV 1000 ML 1,000 ML IV SCH (18:11)
[2018-12-04] MEDS ORDERED: PIPERACILLIN SODIUM/TAZOBACTAM 4.5 GM in NS (IVPB) 100 ML IV ONE (18:15)
[2018-12-04] MEDS ORDERED: RT-ALBUTEROL/IPRATROPIUM 3 ML (DUONEB) VIAL INH ONE (18:15)
--- NOTE | 2018-12-04 18:17 | ED Respiratory ---
General Chief Complaint: Respiratory Problems Stated Complaint: IRREGULAR LAB RESULTS/SOB/LOW O2 LEVELS Nursing Triage Note: pt states difficulty breathing for a few weeks. pt states chills. pt denies painful urination. pt has history of copd and wears 4L OF O2 AT HOME. PT IS 75% ON 4L UPON ARRIVAL. PT DENIES COUGH. Source: patient, family Exam Limitations: no limitations (MELINA CRONIN) History of Present Illness Date Seen by Provider: Dec 04, 2018 Time Seen by Provider: 17:47 Initial Comments Patient presents to the ER by private conveyance with her family and chief complaint that she was just at the doctor's office and Dr. Knapp requested her to come to the ER for evaluation. Dr. Knapp called and said her oxygen saturations are 75% on her normal 4 L by nasal cannula. She has a history of chronic lung disease. The patient says she's been using her albuterol inhaler with no change. She denies being wheezing or having a cough. She does not check for fever but she has had some chills lately. She denies any dysuria or new abdominal pain or chest pain. She does have some congestion in her nose but no ears underwater, sore throat, nausea vomiting or diarrhea. She is known to lmonology, Dr. Perkins. (MELINA CRONIN) Initial Comments Daughter reports that the patient has increased confusion over the last 10 days. Also reports that she's not really using her inhalers well. Does have history of COPD and states this is very similar to her typical COPD exacerbation. Timing/Duration: week, getting worse Severity: moderate Modifying Factors: Worse With Activity; Improves With Oxygen Associated Symptoms: shortness of breath, wheezing (LUCERO GUTIERREZ MD) Allergies and Home Medications Allergies Coded Allergies: ceftriaxone (Verified Allergy, Unknown, 08/02/17) ibuprofen (Verified Allergy, Unknown, PT TAKES ASA AT HOME, 08/02/17) PER MED REC diazepam (Verified Adverse Reaction, Severe, 12/04/18) Home Medications Albuterol Sulfate 1 Puff Puff, 2 PUFF INH Q6H PRN for SHORTNESS OF BREATH, (Reported) Aspirin 81 Mg Tablet., 81 MG PO DAILY, (Reported) Atorvastatin Calcium 80 Mg Tablet, 80 MG PO HS, (Reported) Cyclobenzaprine HCl 10 Mg Tablet, 10 MG PO TID PRN for MUSCLE SPASMS, (Reported) Fentanyl 1 Each Patch.td72, 75 MCG TD Q72H, (Reported) Isosorbide Mononitrate 30 Mg Tab.er.24h, 30 MG PO DAILY, (Reported) Levothyroxine Sodium 200 Mcg Tablet, 200 MCG PO DAILY, (Reported) Metoprolol Tartrate 25 Mg Tablet, 25 MG PO BID, (Reported) Oxycodone HCl/Acetaminophen 1 Each Tablet, 1 EACH PO Q6H PRN for PAIN-MODERATE, (Reported) Patient Home Medication List Home Medication List Reviewed: Yes (LUCERO GUTIERREZ MD) Review of Systems Review of Systems Constitutional: chills; No fever EENTM: nose congestion; No throat pain Respiratory: cough, dyspnea on exertion, short of breath Cardiovascular: No chest pain; edema Gastrointestinal: No abdominal pain, No nausea, No vomiting Genitourinary: no symptoms reported Musculoskeletal: muscle weakness Psychiatric/Neurological: See HPI, Other (confusion and fatigue) Hematologic/Lymphatic: No Symptoms Reported (LUCERO GUTIERREZ MD) All Other Systems Reviewed Negative Unless Noted: Yes (LUCERO GUTIERREZ MD) Past Abxlubx-Ygwflo-Kxcugt Hx Past Med/Social Hx: Reviewed Nursing Past Med/Soc Hx (LUCERO GUTIERREZ MD) Patient Social History 2nd Hand Smoke Exposure: No Recent Foreign Travel: No Contact w/Someone Who Travel: No Recent Infectious Disease Expo: No Recent Hopitalizations: No (MELINA CRONIN) Immunizations Up To Date Tetanus Booster (TDap): Unknown Date of Pneumonia Vaccine: Mar 13, 2013 Date of Influenza Vaccine: Mar 28, 2018 (MELINA CRONIN) Seasonal Allergies Seasonal Allergies: No (MELINA CRONIN) Past Medical History Surgeries: Yes Abdominal, Adenoidectomy, Bowel Surgery, Coronary Stent, Eye Surgery, Gallbladder, Tonsillectomy, Tubal Ligation Respiratory: Yes (CHRONIC DYSPNEA--USES O2 AT HOME, ESPECIALLY AT NIGHT) Sleep Apnea, COPD Cardiac: Yes (TACHYCARDIA, STENTS X 1, CHF) Atrial Fibrillation, Chronic Edema/Swelling, Coronary Artery Disease, Deep Vein Thrombosis, Heart Attack, High Cholesterol, Hypertension Neurological: No 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 Disorders: No Female 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 Disorders: 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: Tubal Ligation, Menopausal Sexually Transmitted Disease: No HIV/AIDS: No Genitourinary: Yes UTI-Chronic Gastrointestinal: Yes Abdominal Hernia, Diverticulosis, Polyps Musculoskeletal: Yes (CHRONIC GENERALIZED PAIN--NARCOTIC-DEPENDENT) Degenerate Disk Disease, Arthritis, Chronic Back Pain Endocrine: Yes (MORBID OBESITY) Hypothyroidsim, Diabetes, Non-Insulin dep HEENT: Yes Cataract, Glaucoma Loss of Vision: Denies Hearing Impairment: Denies Cancer: Yes (SQUAMOUS CELL SKIN CANCER RIGHT CHEEK 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) Skin, Colon Did You Recieve Any Treatments: Yes What Type of Treatment Did You: Surgical Intervention Psychosocial: No Integumentary: Yes (CELLULITIS; SKIN CANCER; BEDBUGS) Eczema Blood Disorders: Yes (CHRONIC ANEMIA) Adverse Reaction/Blood Tranf: No (HAS HAD BLOOD WITH NO REACTION) (MELINA CRONIN) Family Medical History Cancer 03 MOTHER, Onset:40's - 50 Family history: Cardiovascular disease 03 FATHER, Onset:40's - 50 03 MOTHER, Onset:30's - 40 Myocardial infarction 03 MOTHER, Onset:30's - 40 No Pertinent Family Hx (MELINA CRONIN) Physical Exam Vital Signs - First Documented 12/04/18 12/04/18 17:59 18:05 Temp 100.3 Pulse 70 Resp 18 B/P (MAP) 192/61 (104) Pulse Ox 76 O2 Delivery Nasal Cannula O2 Flow Rate 4.00 FiO2 76 (LUCERO GUTIERREZ MD) Capillary Refill : Less Than 3 Seconds (MELINA CRONIN) Height: 5'2.00" Weight: 280lbs. 0.0oz. 127.152577nl; 49.9 BMI Method:Stated (MELINA CRONIN) General Appearance: mild distress (respiratory), obese (morbidly) HEENT: PERRL/EOMI, pharynx normal Neck: full range of motion, supple Respiratory: decreased breath sounds, wheezing, other (difficult exam due to body habitus) Cardiovascular: regular rate, rhythm, no murmur Gastrointestinal: non tender, soft, other (morbidly obese) Extremities: non-tender, normal inspection Neurologic/Psychiatric: alert, oriented x 3 Skin: normal color, warm/dry (LUCERO GUTIERREZ MD) Focused Exam Lactate Level 12/04/18 18:40: Lactic Acid Level 1.25 (LUCERO GUTIERREZ MD) Lactic Acid Level Laboratory Tests Test 12/04/18 18:40 Lactic Acid Level 1.25 MMOL/L (0.50-2.00) (LUCERO GUTIERREZ MD) Procedures/Interventions Suture Size: 4-0 (MELINA CRONIN) Progress/Results/Core Measures Suspected Sepsis Recent Fever Within 48 Hours: Yes Infection Criteria Present: Suspected New Infection New/Unexplained Altered Menta: No Sepsis Screen: No Definite Risk SIRS Temperature:100.3 Pulse: 70 Respiratory Rate: 18 Blood Pressure 192 /61 Mean: 104 (MELINA CRONIN) Results/Orders Lab Results Laboratory Tests Test 12/04/18 18:40 12/04/18 19:47 12/04/18 19:50 Range/Units White Blood Count 9.0 4.3-11.0 10^3/uL Red Blood Count 3.35 L 4.35-5.85 10^6/uL Hemoglobin 9.2 L 11.5-16.0 G/DL Hematocrit 33 L 35-52 % Mean Corpuscular Volume 98 80-99 FL Mean Corpuscular Hemoglobin 28 25-34 PG Mean Corpuscular Hemoglobin Concent 28 L 32-36 G/DL Red Cell Distribution Width 15.1 H 10.0-14.5 % Platelet Count 202 130-400 10^3/uL Mean Platelet Volume 10.0 7.4-10.4 FL Neutrophils (%) (Auto) 76 H 42-75 % Lymphocytes (%) (Auto) 15 12-44 % Monocytes (%) (Auto) 7 0-12 % Eosinophils (%) (Auto) 2 0-10 % Basophils (%) (Auto) 0 0-10 % Neutrophils # (Auto) 6.8 1.8-7.8 X 10^3 Lymphocytes # (Auto) 1.3 1.0-4.0 X 10^3 Monocytes # (Auto) 0.6 0.0-1.0 X 10^3 Eosinophils # (Auto) 0.2 0.0-0.3 10^3/uL Basophils # (Auto) 0.0 0.0-0.1 10^3/uL Prothrombin Time 13.7 12.2-14.7 SEC INR Comment 1.0 0.8-1.4 Activated Partial Thromboplast Time 26 24-35 SEC Sodium Level 141 135-145 MMOL/L Potassium Level 3.4 L 3.6-5.0 MMOL/L Chloride Level 95 L 98-107 MMOL/L Carbon Dioxide Level 37 H 21-32 MMOL/L Anion Gap 9 5-14 MMOL/L Blood Urea Nitrogen 14 7-18 MG/DL Creatinine 0.95 0.60-1.30 MG/DL Estimat Glomerular Filtration Rate 59 BUN/Creatinine Ratio 15 Glucose Level 92 70-105 MG/DL Lactic Acid Level 1.25 0.50-2.00 MMOL/L Calcium Level 8.5 8.5-10.1 MG/DL Corrected Calcium 9.1 8.5-10.1 MG/DL Total Bilirubin 0.5 0.1-1.0 MG/DL Aspartate Amino Transf (AST/SGOT) 13 5-34 U/L Alanine Aminotransferase (ALT/SGPT) 12 0-55 U/L Alkaline Phosphatase 94 40-136 U/L Troponin I < 0.028 <0.028 NG/ML Total Protein 6.6 6.4-8.2 GM/DL Albumin 3.3 3.2-4.5 GM/DL Urine Color YELLOW Urine Clarity SL CLOUDY Urine pH 6 5-9 Urine Specific [place] 1.015 L 1.016-1.022 Urine Protein 2+ H NEGATIVE Urine Glucose (UA) NEGATIVE NEGATIVE Urine Ketones NEGATIVE NEGATIVE Urine Nitrite NEGATIVE NEGATIVE Urine Bilirubin NEGATIVE NEGATIVE Urine Urobilinogen NORMAL NORMAL MG/DL Urine Leukocyte Esterase 2+ H NEGATIVE Urine RBC (Auto) 1+ H NEGATIVE Urine RBC RARE /HPF Urine WBC 2-5 /HPF Urine Squamous Epithelial Cells 2-5 /HPF Urine Crystals NONE /LPF Urine Bacteria FEW H /HPF Urine Casts PRESENT /LPF Urine Hyaline Casts RARE /LPF Urine Mucus NEGATIVE /LPF Urine Culture Indicated CULTURE PENDING Blood Gas Puncture Site R RADIAL Blood Gas Patient Temperature 99.7 Arterial Blood pH 7.36 L 7.37-7.43 Arterial Blood Partial Pressure CO2 71 *H 35-45 MMHG Arterial Blood Partial Pressure O2 68 L 79-93 MMHG Arterial Blood HCO3 39 H 23-27 MMOL/L Arterial Blood Total CO2 40.8 H 21.0-31.0 MMOL/L Arterial Blood Oxygen Saturation 94 94-100 % Arterial Blood Base Excess 12.9 H -2.5-2.5 MMOL/L Blake Test POSITIVE Blood Gas Ventilator Setting YES Blood Gas Inspired Oxygen 50% FIO2 25LPM VAPO (LUCERO GUTIERREZ MD) My Orders Orders - LUCERO GUTIERREZ MD Albuterol Pre-Mix Nebs (Rt) (Proventil (12/04/18 19:36) Svn Small Volume Nebulizer (12/04/18 19:36) Arterial Blood Draw (12/04/18 19:50) Methylprednisolone Sod Succ (Solu-Medrol (12/04/18 20:31) (LUCERO GUTIERREZ MD) Medications Given in ED Current Medications Medications Dose Ordered Sig/Giuseppe Route Start Time Stop Time Status Last Admin Dose Admin Albuterol/ Ipratropium 3 ml ONCE ONCE INH 12/04/18 18:15 12/04/18 18:16 DC 12/04/18 18:40 3 ML Piperacillin Sod/ Tazobactam Sod 4.5 gm/Sodium Chloride 100 ml @ 200 mls/hr ONCE ONCE IV 12/04/18 18:15 12/04/18 18:44 DC 12/04/18 18:46 200 MLS/HR (LUCERO GUTIERREZ MD) Vital Signs/I&O 12/04/18 12/04/18 12/04/18 12/04/18 17:59 18:05 18:20 18:41 Temp 100.3 Pulse 70 Resp 18 B/P (MAP) 192/61 (104) Pulse Ox 76 96 99 88 O2 Delivery Nasal Cannula Nasal Cannula Vapotherm Vapotherm O2 Flow Rate 4.00 4.00 25.00 25.00 FiO2 76 40 40 12/04/18 20:00 Pulse Ox 96 O2 Flow Rate 20.00 FiO2 50 (LUCERO GUTIERREZ MD) Vital Signs/I&O Capillary Refill : Less Than 3 Seconds (MELINA CRONIN) Blood Pressure Mean: 104 Progress Note : Progress Note I assumed care from Dr. Martin pending labs, chest x-ray and EKG. DuoNeb initiated. Vapotherm initiated which did significantly help for treatment and improved her condition. 1999: We have repeated albuterol 3 which has continued to help. Patient is benefiting from Vapotherm. This does appear to be COPD acute exacerbation. Solu-Medrol 125 mg IV initiated. We will continue that inpatient. Patient is currently off her fentanyl patch that will be ordered. Percocet 5/325 2 tabs by mouth given. I did discuss the case with Dr. Villarreal and she accepts patient for admission, inpatient status. Patient agrees to plan. On exam she was noted to have lice notes by nursing and that was verified by me. We will initiate permethrin 1% lotion times one treatment after admission. Patient informed. (LUCERO GUTIERREZ MD) ECG Initial ECG Impression Date: Dec 04, 2018 Initial ECG Impression Time: 18:33 Initial ECG Rate: 70 Comment Sinus rhythm with normal axis. No evidence of ST elevation OR. Low voltage P waves. Similar previous of 03/20/18. Interpreted by me. (LUCERO GUTIERREZ MD) Diagnostic Imaging Diagonstic Imaging: Xray Plain Films/CT/US/NM/MRI: chest Comments NAME: RENÉ ARTHUR MED REC#: [id number] PT STATUS: REG ER : 1955 PHYSICIAN: MELINA CRONIN MD ADMIT DATE: 12/04/18/ER Draft Date of Exam:12/04/18 CHEST 1 VIEW, AP/PA ONLY INDICATION: Difficulty breathing, COPD, and hypoxia. FINDINGS: Body habitus limits exam sensitivity. The heart is enlarged similar to the prior. There is prominence of the pericardial and mediastinal fat with an elevated right diaphragm as a chronic finding. No definite pulmonary consolidation. When correlated with previous radiographs and chest CTs, no obvious change. IMPRESSION: Body habitus substantially limits exam sensitivity. No definite change from previous exams. Dictated on workstation # [id number] Dict: 12/04/181908 Trans: 12/04/181922 [id number] Interpreted by: MIRYAM MICHELE Electronically signed by: (LUCERO GUTIERREZ MD) Departure Impression Primary Impression: COPD with acute exacerbation Additional Impression: Acute respiratory failure with hypoxia and hypercarbia Disposition: ADMITTED INPATIENT Condition: Stable Admissions Decision to Admit Reason: Admit from ER (General) Decision to Admit/Date: Dec 04, 2018 Time/Decision to Admit Time: 20:00 (LUCERO GUTIERREZ MD) Departure-Patient Inst. Referrals: JAN HERNANDEZ MD (PCP/Family) Primary Care Physician MELINA CRONIN Dec 04, 2018 18:17 LUCERO GUTIERREZ MD Dec 04, 2018 19:29
--- NOTE | 2018-12-04 18:37 | NUR ---
Lab in room to draw blood and blood cultures.
--- OUTSIDE RECORDS SUMMARY | 2018-12-04 18:40 | XMS REPORT | Clinical Summary ---
Author Author [facility] Organization [facility] Address Unknown Phone Unavailable Care Team Providers Care Adjuster And Inspector Name Role Phone Erick Sawyer DO Unavailable Alesha Desir MD PCP Source Comments Some departments are not documenting in the electronic medical record. If you d o not see the information that you expected, contact Release of Information in [facility] [employer] Information Management department at [phone] for further assistan ce in locating additional records.[facility] Allergies Comments Active Allergy Reactions Severity [...] Use Types Packs/Day Years Used Never Smoker Drinks/Week oz/Week Comments Alcohol Use Not Asked Sex Assigned at Date Recorded Not on file Industry Job Start Date Occupation Not on file Not on file Not on file Travel End Travel History Travel Start No recent travel history available. Last Filed Vital Signs Reading Time Taken Comments Vital Sign 127/79 11/16/2012 11:22 AM CDT Blood Pressure 112 11/16/2012 11:22 AM CDT Pulse 36.7 C (98 F) 11/16/2012 11:22 AM CDT Temperature 20 11/16/2012 11:22 AM CDT Respiratory Rate - - Oxygen Saturation - - Inhaled Oxygen Concentration 137.7 kg (303 lb 9.6 oz) 11/16/2012 11:22 AM CDT Weight 157.5 cm (5' 2") 11/16/2012 11:22 AM CDT Height 55.53 11/16/2012 11:22 AM CDT Body Mass Index Plan of Treatment Health Maintenance Due Date Last Done Comments HEPATITIS C SCREENING 1955 PHYSICAL (COMPREHENSIVE) 1961 EXAM HIV SCREENING 1969 DTAP/TDAP VACCINES (1 - 1972 Tdap) CERVICAL CANCER SCREENING 1984 BREAST CANCER SCREENING 1994 COLORECTAL CANCER 2004 SCREENING SHINGLES RECOMBINANT 2004 VACCINE (1 of 2) INFLUENZA VACCINE 03/13/2019 Results Not on filefrom Last 3 Months
--- OUTSIDE RECORDS SUMMARY | 2018-12-04 18:41 | XMS REPORT ---
Author Author Migration, Doctor Organization [facility] Address Unknown Phone Unavailable Care Team Providers Care Post Doctoral Researcher Name Role Phone Migration, Doctor Unavailable Unavailable PROBLEMS Type Condition ICD9-CM Code BHX35-SQ Code Onset Dates Condition Status SNOMED Code Problem Restrictive lung disease J98.4 Active 77522903 Problem Cor pulmonale I27.81 Active 99927549 Problem Anemia D64.9 Active 754410761 Problem Prediabetes R73.09 Active 8456494 Problem Arthritis M19.90 Active 6274058 Problem Body mass index (BMI) of 45.0-49.9 in adult Z68.42 Active 252240212 Problem Neuropathy G62.9 Active 239457751 Problem Hypothyroidism E03.9 Active 46009870 Problem Type 2 diabetes mellitus without complication E11.9 Active 838773311 Problem Back pain M54.9 Active 936890135 Problem 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 Active 914661098 Problem Venous insufficiency I87.2 Active 77215355 Problem Coronary artery disease involving [place] coronary artery of [place] heart without angina pectoris I25.10 Active [id number] Problem Obesity hypoventilation syndrome E66.2 Active 952831983 ALLERGIES No Information ENCOUNTERS Encounter Location Date Diagnosis [facility] [id number] [address] Nov, [facility] [address] [address] October, [facility] [address] [address] October, [facility] [address] [place] [address] October, [facility] [address] [address] Sep, [facility] [id number] [address] Sep, [facility] [address] [address] Sep, [facility] [address] [address] Aug, [facility] [address], [place] [address] Aug, [facility] [address] [place] [address] Jul, Type 2 diabetes mellitus without complication E11.9 and Arthritis M19.90 [facility] [id number] [place] [address] Jul, [facility] [id number] [place] [address] Jul, [facility] [id number] [place] [address] Jul, [facility] [address] [address] Jun, [facility] [address] [address] Jun, [facility] [address] [address] Jun, Pneumonia of right lower lobe due to infectious organism J18.1 [facility] [address], [place] [address] Jun, Cough R05 ; Wheeze R06.2 and Pneumonia of right lower lobe due to infectious organism J18.1 [facility] [address] [address] May, [facility] [address], [place] [address] May, [facility] [id number] [place] [address] May, Venous insufficiency I87.2 [facility] [address] [address] May, [facility] [id number] [place] [address] Apr, [facility] [address] [address] Apr, Cor pulmonale I27.81 [facility] [address] [address] Apr, Venous insufficiency I87.2 [facility] [address] [address] 15 Apr, 2018 [facility] [address] [address] Apr, Neuropathy G62.9 and Prediabetes R73.09 [facility] [id number] [place] [address] Apr, [facility] [address] [address] Apr, [facility] [address] [address] Apr, [facility] [address] [address] Apr, Swelling of right lower extremity M79.89 [facility] [address] [address] Apr, [facility] [address] [address] Mar, Bronchitis J40 [facility] [address] [address] Mar, [facility] [address] [place] [address] Mar, 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 ; Encounter for immunization Z23 and Arthritis M19.90 [facility] [address] [address] Mar, Arthritis M19.90 and Back pain M54.9 [facility] [address] [address] Mar, [facility] [address] [address] Mar, [facility] [address] [address] Feb, Arthritis M19.90 [facility] [address] [address] Jan, Arthritis M19.90 [facility] [address] [address] Jan, Back pain M54.9 and Arthritis M19.90 [facility] [address] [address] Jan, [facility] [id number] [place] [address] Jan, Back pain M54.9 [facility] [id number] [place] [address] Jan, Arthritis M19.90 [facility] [id number] [place] [address] Jan, Back pain M54.9 [facility] [address] [address] Jan, [facility] [id number] [place] [address] Jan, Back pain M54.9 [facility] [address] [place] [address] Dec, Ingrowing nail with infection L60.0 and Onychomycosis B35.1 [facility] [id number] [place] [address] Dec, Arthritis M19.90 [facility] [id number] [place] [address] Dec, Ingrowing nail L60.0 [facility] [id number] [place] [address] Dec, Back pain M54.9 [facility] [id number] [place] [address] Dec, [facility] [id number] [place] [address] Dec, Back pain M54.9 [facility] [id number] [place] [address] Nov, Arthritis M19.90 [facility] [id number] [place] [address] Nov, [facility] [id number] [place] [address] Nov, Arthritis M19.90 ; Anemia D64.9 ; Restrictive lung disease J98.4 ; Weakness R53.1 and BMI 50.0-59.9, adult Z68.43 [facility] [id number] [place] [address] Nov, Arthritis M19.90 [facility] [id number] [place] [address] Nov, Back pain M54.9 [facility] [id number] [place] [address] October, Back pain M54.9 [facility] [id number] [place] [address] October, Back pain M54.9 [id number] [place] [address] Sep, Back pain M54.9 [place] [facility] [id number] [place] [address] Sep, Back pain M54.9 [facility] [id number] [place] [address] Sep, [facility] [place] [id number] [place] [address] Sep, [facility] [place] [id number] [place] [address] Sep, Swelling of right lower extremity M79.89 and Cellulitis of right lower extremity L03.115 [place] [id number] [place] [address] Aug, Back pain M54.9 [facility] [id number] [place] [address] 15 Aug, 2017 Back pain M54.9 [place] [id number] [place] [address] Aug, [place] [id number] [place] [address] Aug, Cellulitis of right lower extremity L03.115 ; Ventral hernia without obstruction or gangrene K43.9 and BMI 50.0-59.9, adult Z68.43 [place] [id number] [place] [address] Jul, Back pain M54.9 [place] [id number] [place] [address] Jul, [facility] (current) 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 Z79.891 ; Arthritis M19.90 ; Back pain M54.9 ; Prediabetes R73.09 ; Hypothyroidism E03.9 ; Coronary artery disease involving [place] coronary artery of [place] heart without angina pectoris I25.10 and Anemia D64.9 [facility] [id number] [place] [address] 27 Jul, 2017 [facility] (current) 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 Z79.891 ; Back pain M54.9 ; Arthritis M19.90 ; Prediabetes R73.09 ; Hypothyroidism E03.9 ; Coronary artery disease involving [place] coronary artery of [place] heart without angina pectoris I25.10 ; Anemia D64.9 and BMI 45.0-49.9, adult Z68.42 [facility] [id number] [place] [address] 15 Jul, 2017 Back pain M54.9 [facility] [id number] [place] [address] 05 Jul, 2017 Back pain M54.9 [facility] [id number] [place] [address] Jun, Back pain M54.9 [facility] [id number] [place] [address] Jun, Back pain M54.9 [facility] [id number] [place] [address] May, Skin cancer of face C44.300 and BMI 45.0-49.9, adult Z68.42 [facility] [id number] [place] [address] May, [facility] [id number] [place] [address] May, Back pain M54.9 [facility] [id number] [place] [address] May, Back pain M54.9 [facility] [id number] [place] [address] May, Back pain M54.9 [facility] [id number] [place] [address] Apr, Back pain M54.9 [facility] [address] [address] Apr, Back pain M54.9 [facility] [id number] [place] [address] Mar, Back pain M54.9 [facility] [address] [address] Mar, Anemia D64.9 ; Encounter for immunization Z23 ; Arthritis M19.90 and Right inguinal hernia K40.90 [facility] [address] [address] Mar, Back pain M54.9 [facility] [id number] [place] [address] Feb, Back pain M54.9 [facility] [id number] [place] [address] Feb, Back pain M54.9 [facility] [id number] [place] [address] Jan, Back pain M54.9 [facility] [id number] [place] [address] Jan, Back pain M54.9 [facility] [id number] [place] [address] Jan, [facility] [id number] [place] [address] Jan, Back pain M54.9 [facility] [id number] [place] [address] Dec, Back pain M54.9 [facility] [id number] [place] [address] Dec, Back pain M54.9 [facility] [address] [place] [address] 05 Dec, 2016 [facility] [id number] [place] [address] Nov, Hypokalemia E87.6 [facility] [id number] [place] [address] Nov, Back pain M54.9 [facility] [id number] [place] [address] Nov, [facility] [id number] [place] [address] Nov, Arthritis M19.90 [place] [id number] [place] [address] Nov, Back pain M54.9 [place] [id number] [place] [address] Nov, Generalized edema R60.1 [place] [id number] [place] [address] Nov, Back pain M54.9 [place] [id number] [place] [address] Nov, Pain in right knee M25.561 [place] [id number] [place] [address] 05 Nov, 2016 Encounter for removal of sutures Z48.02 and Pain in right knee M25.561 [facility] [address] [place] [address] Nov, Abrasion of right foot, subsequent encounter S90.811D [facility] [id number] [place] [address] October, Toe abrasion, right, initial encounter S90.414A [facility] [id number] [place] [address] October, [facility] [id number] [place] [address] October, Back pain M54.9 [facility] [id number] [place] [address] October, Venous insufficiency I87.2 [facility] [id number] [place] [address] October, Pain in right knee M25.561 [facility] [id number] [place] [address] Sep, Back pain M54.9 [facility] [id number] [place] [address] Sep, Venous insufficiency I87.2 [facility] [id number] [place] [phone] Sep, [facility] [id number] [place] [address] Sep, Leg edema, right R60.0 and Cellulitis of right lower extremity L03.115 [facility] [id number] [place] [address] Sep, Pedal edema R60.0 [facility] [id number] [place] [address] Sep, 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 ; Pain in right knee M25.561 and Arthritis M19.90 [facility] [address] [address] Aug, Back pain M54.9 [facility] [id number] [place] [address] Aug, Back pain M54.9 [facility] [address], [place] [address] Aug, [facility] [id number] [place] [address] 10 Aug, 2016 Type 2 diabetes mellitus without complication E11.9 ; Restrictive lung disease J98.4 ; Arthritis M19.90 ; Back pain M54.9 ; Body mass index (BMI) of 45.0-49.9 in adult Z68.42 and Morbid (severe) obesity due to excess calories E66.01 [facility] [id number] [place] [address] Aug, Back pain M54.9 [facility] [id number] [place] [address] Aug, Back pain M54.9 [facility] [id number] [place] [address] Jul, [facility] [id number] [place] [address] Jul, Back pain M54.9 [facility] [id number] [place] [address] Jul, Back pain M54.9 [facility] [id number] [place] [address] Jun, Back pain M54.9 [facility] [id number] [place] [address] Jun, Back pain M54.9 [facility] [id number] [place] [address] May, Back pain M54.9 [facility] [id number] [place] [address] 16 May, 2016 Back pain M54.9 [facility] [id number] [place] [address] May, Back pain M54.9 [facility] [id number] [place] [address] May, Back pain M54.9 [facility] [address], [place] [address] May, [facility] [id number] [place] [address] May, Back pain M54.9 and Pain in right knee M25.561 [facility] [id number] [place] [address] Apr, [facility] [id number] [place] [address] Apr, Type 2 diabetes mellitus without complication E11.9 ; Pain in right knee M25.561 and Pain in left knee M25.562 [facility] [id number] [place] [address] Mar, [facility] [id number] [place] [address] Mar, [facility] [id number] [place] [address] Mar, [facility] [id number] [place] [address] Mar, Restrictive lung disease J98.4 ; Anemia D64.9 and Cor pulmonale I27.81 [facility] [address] [address] Mar, [facility] [id number] [place] [address] Mar, [facility] [id number] [place] [address] Mar, [facility] [id number] [place] [address] 30 Feb, 2016 [facility] [address] [place] [address] 29 Feb, 2016 [facility] [address] [address] 28 Feb, 2016 [facility] [address] [address] 27 Feb, 2016 Restrictive lung disease J98.4 [facility] [address] [address] 23 Feb, 2016 [facility] [address] [place] [address] 22 Feb, 2016 [facility] [id number] [place] [address] 16 Feb, 2016 [facility] [id number] [place] [address] Jan, [facility] [id number] [place] [address] Jan, [facility] [id number] [place] [address] Jan, [facility] [address] [place] [address] Jan, [facility] [id number] [place] [address] Jan, Restrictive lung disease J98.4 ; Anemia D64.9 and Cor pulmonale I27.81 [facility] [address] [place] [address] Dec, [facility] [address] [address] Dec, [facility] [id number] [place] [address] 14 Nov, 2015 Arthritis M19.90 and Hypokalemia E87.6 [facility] [address] [place] [address] 10 Nov, 2015 Back pain M54.9 [facility] [id number] [place] [address] October, Back pain M54.9 [facility] [address] [place] [address] October, Back pain M54.9 [facility] [address] [place] [address] Sep, Scabies exposure Z20.89 [facility] [id number] [place] [address] Sep, Restrictive lung disease J98.4 [facility] [id number] [place] [address] Sep, Back pain M54.9 [facility] [id number] [place] [address] Sep, Restrictive lung disease J98.4 [facility] [id number] [place] [address] Aug, [facility] [id number] [place] [address] Aug, [facility] [id number] [place] [address] Aug, [facility] [address] [place] [address] Aug, [facility] [id number] [place] [address] Aug, Back pain M54.9 [facility] [address] [place] [address] Jul, Anemia D64.9 and Prediabetes R73.09 [facility] [address] [place] [address] Jul, Back pain M54.9 [facility] [id number] [place] [phone] 17 Jul, 2015 Back pain M54.9 [facility] [id number] [address] Jul, [facility] [id number] [place] [phone] Jul, Bronchitis J40 and Anemia D64.9 [facility] [id number] [place] [phone] Jun, [facility] [address] [phone] Jun, [facility] [id number] [place] [phone] Jun, Bronchitis J40 and Anemia D64.9 [facility] [id number] [place] [phone] Jun, [facility] [address] [address] Jun, Back pain M54.9 [facility] [id number] [place] [id number] Jun, Anemia D64.9 [facility] [id number] [place] [phone] Jun, Restrictive lung disease J98.4 ; Anemia D64.9 ; Hypothyroidism E03.9 ; Cor pulmonale I27.81 and Back pain M54.9 [facility] [id number] [place] [phone] May, [facility] [id number] [place] [phone] Apr, Anemia D64.9 ; Encounter for immunization Z23 and Restrictive lung disease J98.4 [facility] [id number] [place] [phone] Apr, [facility] [id number] [place] [phone] Mar, [facility] [id number] [address] Mar, Iron deficiency anemia D50.9 [facility] [id number] [place] [phone] Mar, [facility] [id number] [place] [phone] Mar, [facility] [id number] [place] [phone] Mar, Anemia D64.9 [facility] [id number] [place] [phone] Mar, [facility] [id number] [place] [phone] Mar, Anemia D64.9 [facility] [id number] [place] [phone] Mar, Restrictive lung disease J98.4 and Anemia D64.9 [facility] [id number] [place] [phone] Mar, [facility] [address] [address] [id number] [place] [address] Mar, Anemia D64.9 [facility] [id number] [place] [address] Mar, Anemia D64.9 [facility] [id number] [place] [address] Mar, [facility] [id number] [place] [address] Mar, Diabetes mellitus E11.9 ; Bronchitis J40 and Anemia D64.9 [facility] [id number] [place] [address] Feb, [facility] [id number] [place] [address] Feb, [facility] [id number] [address] Feb, [facility] [id number] [place] [address] Feb, [facility] [id number] [place] [address] Jan, [facility] [id number] [place] [address] Jan, [facility] [id number] [place] [address] Dec, Venous insufficiency 459.81 [facility] [id number] [place] [address] Dec, [facility] [id number] [place] [address] Dec, [facility] [id number] [place] [address] Dec, Coronary atherosclerosis of unspecified type of vessel, [place] or graft 414.00 ; Unspecified anemia 285.9 and Generalized osteoarthrosis, unspecified site 715.00 [facility] [id number] [address] Nov, [facility] [id number] [place] [address] Nov, [facility] [id number] [place] [address] Nov, [facility] [id number] [place] [address] October, [facility] [id number] [place] [address] October, Acute bronchitis 466.0 and Shortness of breath 786.05 [facility] [id number] [place] [address] 14 Sep, 2014 [facility] [place] [facility] [address] [id number] [place] [address] Sep, [facility] [place] [facility] [address] [id number] [place] [address] Aug, [facility] [place] [facility] [address] [facility] [id number] [place] [address] Aug, [facility] [place] [facility] [address] [id number] [place] [address] Jul, [facility] [place] [facility] [address] [id number] [place] [address] Jul, [facility] [place] [facility] [address] [facility] [id number] [place] [address] Jul, [facility] [place] [facility] [address] [facility] [id number] [place] [address] Jul, [facility] [place] [facility] [address] [facility] [id number] [place] [address] Jun, [facility] [place] [facility] [address] [facility] [id number] [place] [address] Jun, [facility] [place] [facility] [address] [facility] [id number] [place] [address] Jun, [facility] [place] [facility] [address] [facility] [id number] [place] [address] Jun, [facility] [place] [facility] [address] [id number] [place] [address] Jun, [facility] [place] [facility] [address] [id number] [place] [address] Jun, [facility] [place] [facility] [address] [facility] [id number] [place] [address] May, [facility] [place] [facility] [address] [facility] [id number] [place] [address] May, [facility] [place] [facility] [address] [id number] [place] [address] May, [facility] [place] [facility] [address] [id number] [place] [address] May, [facility] [place] [facility] [address] [id number] [place] [address] Apr, [facility] [place] [facility] [address] [id number] [place] [address] Apr, [facility] [place] [facility] [address] [id number] [place] [address] Apr, [facility] [place] [facility] [address] [id number] [place] [address] Apr, [facility] [place] [facility] [address] [id number] [place] [address] Apr, [facility] [place] [facility] [address] [id number] [place] [address] Apr, [facility] [place] [facility] [address] [id number] [place] [address] Mar, [facility] [place] [facility] [address] [id number] [place] [address] Mar, [facility] [place] [facility] [address] [facility] [id number] [place] [address] Mar, [facility] [place] [facility] [address] [id number] [place] [address] Mar, [facility] [place] [facility] [address] [id number] [place] [address] Mar, [facility] [place] [facility] [address] [id number] [place] [address] Mar, [facility] [place] [facility] [address] [id number] [place] [address] Mar, [facility] [place] [facility] [address] [id number] [place] [address] Mar, [facility] [place] [facility] [address] [id number] [place] [address] Feb, [facility] [place] [facility] [address] [id number] [place] [address] Feb, [facility] [place] [facility] [address] [id number] [place] [address] Jan, [facility] [place] [facility] [address] [id number] [place] [address] Jan, [facility] [place] [facility] [address] [id number] [place] [address] Jan, [facility] [place] [facility] [address] [id number] [place] [address] Jan, [facility] [place] [facility] [address] [id number] [place] [address] Jan, [facility] [place] [facility] [address] [id number] [place] [address] Jan, [facility] [place] [facility] [address] [id number] [place] [address] Dec, [facility] [place] [facility] [address] [id number] [place] [address] Dec, [facility] [place] [facility] [address] [id number] [place] [address] Dec, [facility] [place] [facility] [address] [id number] [place] [address] Dec, [facility] [place] [facility] [address] [id number] [place] [address] Nov, [facility] [place] [facility] [address] [id number] [place] [address] Nov, [facility] [place] [facility] [address] [id number] [place] [address] Nov, [facility] [place] [facility] [address] [id number] [place] [address] Nov, [facility] [place] [facility] [address] [id number] [place] [address] Nov, [facility] [place] [facility] [address] [id number] [place] [address] Nov, [facility] [place] [facility] [address] [id number] [place] [address] Nov, [facility] [place] [facility] [address] [id number] [place] [address] Nov, [facility] [place] [facility] [address] [id number] [place] [address] Nov, [facility] [place] [facility] [address] [id number] [place] [address] Nov, [facility] [place] [facility] [address] [id number] [place] [address] Nov, [facility] [place] [facility] [address] [id number] [place] [address] Nov, [facility] [place] [facility] [address] [id number] [place] [address] October, [facility] [place] [facility] [address] [id number] [place] [address] October, [facility] [place] [facility] [address] [id number] [place] [address] October, [facility] [place] [facility] [address] [id number] [place] [address] October, [facility] [place] [facility] [address] [id number] [place] [address] October, [facility] [place] [facility] [address] [id number] [place] [address] October, [facility] [place] [facility] [address] [id number] [place] [address] October, [facility] [place] [facility] [address] [id number] [place] [address] October, [facility] [place] [facility] [address] [id number] [place] [address] October, [facility] [place] [facility] [address] [id number] [place] [address] Sep, [facility] [place] [facility] [address] [id number] [place] [address] Sep, [facility] [place] [facility] [address] [id number] [place] [address] Sep, [facility] [place] [facility] [address] [id number] [place] [address] Sep, [facility] [place] [facility] [address] [id number] [place] [address] Sep, [facility] [place] [facility] [address] [id number] [place] [address] Sep, [facility] [place] [facility] [address] [id number] [place] [address] Aug, [facility] [place] [facility] [address] [id number] [place] [address] Aug, [facility] [place] [facility] [address] [id number] [place] [address] Aug, [facility] [place] [facility] [address] [id number] [place] [address] Aug, [facility] [place] [facility] [address] [id number] [place] [address] Aug, [facility] [place] [facility] [address] [id number] [place] [address] Aug, [facility] [place] [facility] [address] [id number] [place] [address] Aug, [facility] [place] [facility] [address] [id number] [place] [address] Aug, [facility] [place] [facility] [address] [id number] [place] [address] Aug, [facility] [place] [facility] [address] [id number] [place] [address] Aug, [facility] [place] [facility] [address] [id number] [place] [address] Jul, [facility] [place] [facility] [address] [id number] [place] [address] Jul, [facility] [place] [facility] [address] [id number] [place] [address] Jun, [facility] [place] [facility] [address] [id number] [place] [address] Jun, [facility] [place] [facility] [address] [id number] [place] [address] Jun, [facility] [place] [facility] [address] [id number] [place] [address] Jun, [facility] [place] [facility] [address] [id number] [place] [address] Jun, [facility] [place] [facility] [address] [id number] [place] [address] Jun, [facility] [place] [facility] [address] [id number] [place] [address] Jun, [facility] [place] [facility] [address] [id number] [place] [address] Jun, [facility] [place] [facility] [address] [id number] [place] [address] May, [facility] [place] [facility] [address] [id number] [place] [address] May, [facility] [place] [facility] [address] [id number] [place] [address] May, [facility] [place] [facility] [address] [id number] [place] [address] May, [facility] [place] [facility] [address] [id number] [place] [address] May, [facility] [place] [facility] [address] [id number] [place] [address] May, [facility] [place] [facility] [address] [id number] [place] [address] May, [facility] [place] [facility] [address] [id number] [place] [address] May, [facility] [place] [facility] [address] [id number] [place] [address] May, [facility] [place] [facility] [address] [id number] [place] [address] Apr, [facility] [place] [facility] [address] [id number] [place] [address] Apr, [facility] [place] [facility] [address] [id number] [place] [address] Apr, [facility] [place] [facility] [address] [id number] [place] [address] Apr, [facility] [place] [facility] [address] [id number] [place] [address] Mar, [facility] [place] [facility] [address] [id number] [place] [address] Mar, [facility] [place] [facility] [address] [id number] [place] [address] Mar, [facility] [place] [facility] [address] [id number] [place] [address] Mar, [facility] [place] [facility] [address] [id number] [place] [address] Mar, [facility] [place] [facility] [address] [id number] [place] [address] Mar, [facility] [place] [facility] [address] [id number] [place] [address] 29 Mar, 2012 [facility] [place] [facility] [address] [id number] [place] [address] 29 Mar, 2012 [facility] [place] [facility] [address] [id number] [place] [address] Mar, 2012 [facility] [place] [facility] [address] [id number] [place] [address] 25 Mar, 2012 [facility] [place] [facility] [address] [id number] [place] [address] 18 Mar, 2012 [facility] [place] [facility] [address] [id number] [place] [address] 18 Mar, 2012 [facility] [place] [facility] [address] [id number] [place] [address] 18 Mar, 2012 [facility] [place] [facility] [address] [id number] [address] 18 Mar, 2012 [facility] [place] [facility] [address] [id number] [place] [address] 18 Mar, 2012 [facility] [place] [facility] [address] [id number], [place] [address] 18 Mar, 2012 [facility] [place] [facility] [address] [id number], [place] [address] 17 Mar, 2012 [facility] [place] [facility] [address] [id number], [place] [address] 17 Mar, 2012 [facility] [place] [facility] [address] [id number] [place] [address] 15 Mar, 2012 [facility] [place] [facility] [address] [id number], [place] [address] 15 Mar, 2012 [facility] [place] [facility] [address] [id number], [place] [address] 14 Mar, 2012 [facility] [place] [facility] [address] [id number] [place] [address] 14 Mar, 2012 [facility] [place] [facility] [address] [id number] [place] [address] 14 Mar, 2012 [facility] [place] [facility] [address] [id number] [place] [address] 14 Mar, 2012 [facility] [place] [facility] [address] [id number] [place] [address] 12 Mar, 2012 [facility] [place] [facility] [address] [id number] [place] [address] 11 Mar, 2012 [facility] [place] [facility] [address] [id number] [place] [address] 11 Mar, 2012 [facility] [place] [facility] [address] [id number] [place] [address] 10 Mar, 2012 [facility] [place] [facility] [address] [id number] [place] [address] 10 Mar, 2012 [facility] [place] [facility] [address] [id number] [place] [address] 10 Mar, 2012 [facility] [place] [facility] [address] [id number] [place] [address] 10 Mar, 2012 [facility] [place] [facility] [address] [id number] [place] [address] 04 Mar, 2013 [facility] [place] [facility] [address] [id number] [place] [address] 01 Mar, 2012 [facility] [place] [facility] [address] [id number], [place] [address] 27 Feb, 2012 [facility] [place] [facility] [address] [id number] [place] [address] 11 Feb, 2012 [facility] [place] [facility] [address] [id number] [place] [address] 04 Feb, 2012 [facility] [place] [facility] [address] [id number], [place] [address] 03 Sep, 2012 [facility] [place] [facility] [address] [id number] [place] [address] Jan, [facility] [place] [facility] [address] [id number] [place] [address] Jan, [facility] [place] [facility] [address] [id number] [place] [address] Jan, [facility] [place] [facility] [address] [id number] [place] [address] Jan, [facility] [place] [facility] [address] [id number] [place] [address] Jan, [facility] [place] [facility] [address] [id number] [place] [address] Jan, [facility] [place] [facility] [address] [id number] [place] [address] Dec, [facility] [place] [facility] [address] [id number] [place] [address] Dec, [facility] [place] [facility] [address] [id number] [place] [address] Dec, [facility] [place] [facility] [address] [id number] [place] [address] Dec, [facility] [place] [facility] [address] [id number] [place] [address] Dec, [facility] [place] [facility] [address] [id number] [place] [address] Dec, [facility] [place] [facility] [address] [id number] [place] [address] Dec, [facility] [place] [facility] [address] [id number] [place] [address] Dec, [facility] [place] [facility] [address] [id number] [place] [address] Dec, [facility] [place] [facility] [address] [id number] [place] [address] Dec, [facility] [address] [id number] [place] [address] Dec, [facility] [place] [facility] [address] [id number] [place] [address] October, [facility] [address] [id number] [place] [address] October, [facility] [address] [id number] [place] [address] October, [facility] [address] [id number] [place] [address] October, [facility] [address] [id number] [place] [address] Sep, [facility] [address] [id number] [place] [address] Sep, [facility] [address] [id number] [place] [address] 29 Sep, 2012 [facility] [facility] [address] [id number] [place] [address] Sep, [facility] [address] [id number] [place] [address] Sep, [facility] [address] [id number] [place] [address] 16 Sep, 2012 [facility] [place] [facility] [address] [id number] [address] 15 Sep, 2012 [facility] [place] [facility] [address] [id number] [place] [address] 14 Sep, 2012 [facility] [place] [facility] [address] [id number] [place] [address] 13 Sep, 2012 [facility] [place] [facility] [address] [id number] [place] [address] 12 Sep, 2012 [facility] [address] [facility] [id number] [place] [address] Sep, IMMUNIZATIONS No Known Immunizations SOCIAL HISTORY Never Assessed REASON FOR VISIT [place] [place] VITAL SIGNS MEDICATIONS Unknown Medications RESULTS No Results PROCEDURES Procedure Date Ordered Result Body Site SPIROMETRY May 16, 2013 INSTRUCTIONS MEDICATIONS ADMINISTERED No Known Medications MEDICAL (GENERAL) HISTORY Type Description Date Medical History coronary artery disease s/p stenting Medical History arrhythmia Medical History hyperlipidemia Medical History morbid obesity Medical History Hypothyroidism Medical History type II diabetes Medical History Arthritis Medical History hernia repair with wound dehisence/enterocutaneous fistula Medical History colonic polyps Medical History Hypokalemia Surgical History hernia repair (2003 & 2013) Surgical History tonsillectomy Surgical History tubal ligation 1982 Surgical History cholecystectomy Surgical History transesophageal echocardiogram: EF 55% (poor study) 02/2013 Surgical History heart cath w/ stenting 06/06/11 Surgical History heart cath 07/22/15 Surgical History cataract implants x 2 Surgical History Cancer removal on face 08/05/2017 Surgical History heart cath 06/2018 Hospitalization History pneumonia, MRSA, bacteremia, SVT vs Afib 02/2013 Hospitalization History pseudomonal bacteremia in PICC 04/2013 Hospitalization History heart cath 07/22/15 Hospitalization History o2 problems 09/2015 Hospitalization History Acute dyspnea, muscle cramps--[facility] 03/04/16 Hospitalization History RLE Cellulitis, Hypokalemia, anemia-[facility] 09/29/15 Hospitalization History Lower edema 09/2016 Hospitalization History Received stitches ER 10/2016 Hospitalization History hallucinations/ dimished mental capasity 03/19-03/21/18
--- OUTSIDE RECORDS SUMMARY | 2018-12-04 18:42 | XMS REPORT ---
Author Author Migration, Doctor Organization [facility] Address Unknown Phone Unavailable Care Team Providers Care Stack Attendant Name Role Phone Migration, Doctor Unavailable Unavailable PROBLEMS Type Condition ICD9-CM Code GTO17-RL Code Onset Dates Condition Status SNOMED Code Problem Restrictive lung disease J98.4 Active 34475648 Problem Cor pulmonale I27.81 Active 99257377 Problem Anemia D64.9 Active 691798009 Problem Prediabetes R73.09 Active 6703601 Problem Arthritis M19.90 Active 4532834 Problem Body mass index (BMI) of 45.0-49.9 in adult Z68.42 Active 058089838 Problem Neuropathy G62.9 Active 255218379 Problem Hypothyroidism E03.9 Active 48235914 Problem Type 2 diabetes mellitus without complication E11.9 Active 682377151 Problem Back pain M54.9 Active 999479696 Problem 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 Active 539385516 Problem Venous insufficiency I87.2 Active 26819591 Problem Coronary artery disease involving ottawa coronary artery of ottawa heart without angina pectoris I25.10 Active 4592489650892 Problem Obesity hypoventilation syndrome E66.2 Active 755214232 ALLERGIES No Information ENCOUNTERS Encounter Location Date Diagnosis [facility] [id number] [address] October, [facility] [address] [address] Sep, [facility] [address] [address] Sep, [facility] [id number] [place] [phone] Sep, [facility] [address] [address] Aug, [facility] [id number] [address] Aug, [facility] [id number] [place] [address] Jul, Type 2 diabetes mellitus without complication E11.9 and Arthritis M19.90 [facility] [id number] [place] [address] Jul, [facility] [id number] [place] [phone] Jul, [facility] [id number] [place] [phone] Jul, [facility] [id number] [place] [phone] Jun, [facility] [id number] [place] [phone] Jun, [facility] [id number] [place] [address] Jun, Pneumonia of right lower lobe due to infectious organism J18.1 [facility] [id number] [place] [address] Jun, Cough R05 ; Wheeze R06.2 and Pneumonia of right lower lobe due to infectious organism J18.1 [facility] [address] [address] May, [facility] [id number] [place] [phone] May, [facility] [id number] [place] [address] May, Venous insufficiency I87.2 [facility] [id number] [place] [address] May, [facility] [id number] [place] [address] Apr, [facility] [id number] [place] [address] Apr, Cor pulmonale I27.81 [facility] [address] [address] Apr, Venous insufficiency I87.2 [facility] [address] [address] Apr, [facility] [address] [address] Apr, Neuropathy G62.9 and Prediabetes R73.09 [facility] [address] [address] Apr, [facility] [id number] [place] [address] Apr, [facility] [address] [address] Apr, [facility] [address] [address] Apr, Swelling of right lower extremity M79.89 [facility] [id number] [place] [address] Apr, [facility] [id number] [place] [address] Mar, Bronchitis J40 [facility] [id number] [place] [phone] Mar, [facility] [address] [address] Mar, 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 ; Encounter for immunization Z23 and Arthritis M19.90 [facility] [id number] [place] [id number] Mar, Arthritis M19.90 and Back pain M54.9 [facility] [address] [address] Mar, [facility] [id number] [place] [address] Mar, [facility] [id number] [place] [address] Feb, Arthritis M19.90 [facility] [id number] [place] [address] Jan, Arthritis M19.90 [facility] [id number] [place] [address] Jan, Back pain M54.9 and Arthritis M19.90 [facility] [id number] [place] [address] Jan, [facility] [id number] [place] [address] Jan, Back pain M54.9 [facility] [id number] [place] [address] Jan, Arthritis M19.90 [facility] [id number] [place] [address] Jan, Back pain M54.9 [facility] [id number] [place] [address] Jan, [facility] [id number] [place] [phone] Jan, Back pain M54.9 [facility] [id number] [place] [address] Dec, Ingrowing nail with infection L60.0 and Onychomycosis B35.1 [facility] [address] [address] Dec, Arthritis M19.90 [facility] [id number] [place] [address] Dec, Ingrowing nail L60.0 [facility] [id number] [place] [address] Dec, Back pain M54.9 [facility] [id number] [address] Dec, [facility] [id number] [place] [address] Dec, Back pain M54.9 [facility] [id number] [place] [address] Nov, Arthritis M19.90 [facility] [id number] [place] [address] Nov, [facility] [id number] [place] [address] Nov, Arthritis M19.90 ; Anemia D64.9 ; Restrictive lung disease J98.4 ; Weakness R53.1 and BMI 50.0-59.9, adult Z68.43 [facility] [id number] [place] [address] Nov, Arthritis M19.90 [facility] [id number] [place] [address] Nov, Back pain M54.9 [facility] [id number] [place] [address] October, Back pain M54.9 [facility] [id number] [place] [address] October, Back pain M54.9 [facility] [id number] [place] [address] Sep, Back pain M54.9 [facility] [id number] [place] [phone] Sep, Back pain M54.9 [facility] [address] [address] Sep, [facility] [id number] [place] [address] Sep, [facility] [place] [id number] [place] [address] Sep, Swelling of right lower extremity M79.89 and Cellulitis of right lower extremity L03.115 [place] [id number] [place] [address] Aug, Back pain M54.9 [place] [address] [address] Aug, Back pain M54.9 [place] [id number] [place] [address] Aug, [place] [id number] [place] [address] Aug, Cellulitis of right lower extremity L03.115 ; Ventral hernia without obstruction or gangrene K43.9 and BMI 50.0-59.9, adult Z68.43 [place] [id number] [place] [address] Jul, Back pain M54.9 [place] [id number] [place] [address] Jul, 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 ; Arthritis M19.90 ; Back pain M54.9 ; Prediabetes R73.09 ; Hypothyroidism E03.9 ; Coronary artery disease involving ottawa coronary artery of ottawa heart without angina pectoris I25.10 and Anemia D64.9 [place] [id number] [place] [address] Jul, [facility] (current) 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 Z79.891 ; Back pain M54.9 ; Arthritis M19.90 ; Prediabetes R73.09 ; Hypothyroidism E03.9 ; Coronary artery disease involving ottawa coronary artery of ottawa heart without angina pectoris I25.10 ; Anemia D64.9 and BMI 45.0-49.9, adult Z68.42 [facility] [id number] [place] [id number] 15 Jul, 2017 Back pain M54.9 [facility] [id number] [place] [address] Jul, Back pain M54.9 [facility] [id number] [place] [address] Jun, Back pain M54.9 [facility] [id number] [place] [address] Jun, Back pain M54.9 [facility] [id number] [place] [address] May, Skin cancer of face C44.300 and BMI 45.0-49.9, adult Z68.42 [facility] [id number] [place] [address] May, [facility] [id number] [place] [address] May, Back pain M54.9 [facility] [id number] [place] [address] May, Back pain M54.9 [facility] [id number] [place] [address] May, Back pain M54.9 [facility] [id number] [place] [address] Apr, Back pain M54.9 [facility] [id number] [place] [id number] Apr, Back pain M54.9 [facility] [id number] [place] [address] Mar, Back pain M54.9 [facility] [id number] [place] [address] Mar, Anemia D64.9 ; Encounter for immunization Z23 ; Arthritis M19.90 and Right inguinal hernia K40.90 [facility] [id number] [place] [address] Mar, Back pain M54.9 [facility] [address] [address] Feb, Back pain M54.9 [facility] [address] [address] Feb, Back pain M54.9 [facility] [id number] [place] [address] Jan, Back pain M54.9 [facility] [address] [address] Jan, Back pain M54.9 [facility] [id number] [place] [address] Jan, [facility] [id number] [place] [address] Jan, Back pain M54.9 [facility] [id number] [place] [address] Dec, Back pain M54.9 [facility] [id number] [place] [address] Dec, Back pain M54.9 [facility] [address] [address] Dec, [facility] [id number] [place] [id number] Nov, Hypokalemia E87.6 [facility] [address] [address] Nov, Back pain M54.9 [facility] [id number] [place] [address] Nov, [facility] [id number] [place] [address] Nov, Arthritis M19.90 [facility] [id number] [place] [address] Nov, Back pain M54.9 [facility] [id number] [place] [address] Nov, Generalized edema R60.1 [place] [id number] [place] [address] Nov, Back pain M54.9 [place] [id number] [place] [address] Nov, Pain in right knee M25.561 [facility] [id number] [place] [id number] 05 Nov, 2016 Encounter for removal of sutures Z48.02 and Pain in right knee M25.561 [facility] [id number] [place] [address] Nov, Abrasion of right foot, subsequent encounter S90.811D [facility] [id number] [place] [address] October, Toe abrasion, right, initial encounter S90.414A [facility] [id number] [place] [address] October, [facility] [id number] [place] [address] October, Back pain M54.9 [facility] [id number] [place] [address] October, Venous insufficiency I87.2 [facility] [id number] [place] [address] October, Pain in right knee M25.561 [place] [address] [address] Sep, Back pain M54.9 [place] [id number] [place] [address] Sep, Venous insufficiency I87.2 [place] [address] [id number] Sep, [facility] [address] [address] Sep, Leg edema, right R60.0 and Cellulitis of right lower extremity L03.115 [place] [id number] [place] [address] Sep, Pedal edema R60.0 [place] [address] [address] Sep, 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 ; Pain in right knee M25.561 and Arthritis M19.90 [place] [id number] [place] [address] Aug, Back pain M54.9 [place] [id number] [place] [address] Aug, Back pain M54.9 [place] [id number] [place] [address] Aug, [place] [id number] [place] [address] Aug, Type 2 diabetes mellitus without complication E11.9 ; Restrictive lung disease J98.4 ; Arthritis M19.90 ; Back pain M54.9 ; Body mass index (BMI) of 45.0-49.9 in adult Z68.42 and Morbid (severe) obesity due to excess calories E66.01 [place] [id number] [address] Aug, Back pain M54.9 [facility] [address] [facility] [id number] [place] [address] Aug, Back pain M54.9 [facility] [address] [facility] [id number] [place] [id number] Jul, [facility] [address] [facility] [id number] [place] [id number] Jul, Back pain M54.9 [facility] [id number] [place] [address] Jul, Back pain M54.9 [facility] [address] [facility] [id number] [place] [address] Jun, Back pain M54.9 [facility] [address] [facility] [id number] [place] [address] Jun, Back pain M54.9 [facility] [address] [facility] [id number] [place] [address] May, Back pain M54.9 [facility] [address] [facility] [id number] [place] [address] May, Back pain M54.9 [facility] [address] [facility] [id number] [place] [address] May, Back pain M54.9 [facility] [address] [facility] [id number] [address] May, Back pain M54.9 [facility] [address] [facility] [id number] [place] [address] May, [facility] [address] [facility] [id number] [address] 05 May, 2016 Back pain M54.9 and Pain in right knee M25.561 [facility] [id number] [address] Apr, [facility] [id number] [place] [address] Apr, Type 2 diabetes mellitus without complication E11.9 ; Pain in right knee M25.561 and Pain in left knee M25.562 [facility] [id number] [address] Mar, [facility] [id number] [place] [address] Mar, [facility] [id number] [place] [address] Mar, [facility] [id number] [place] [address] Mar, Restrictive lung disease J98.4 ; Anemia D64.9 and Cor pulmonale I27.81 [facility] [id number] [place] [id number] Mar, [facility] [id number] [place] [id number] 14 Mar, 2016 [facility] [id number] [place] [address] Mar, [facility] [address] [address] 30 Feb, 2016 [facility] [id number] [place] [address] 29 Feb, 2016 [facility] [id number] [place] [address] 28 Feb, 2016 [facility] [id number] [place] [address] 27 Feb, 2016 Restrictive lung disease J98.4 [facility] [address] [address] 23 Feb, 2016 [facility] [address] [address] Feb, [facility] [id number] [place] [address] Feb, [facility] [id number] [place] [address] Jan, [facility] [id number] [place] [phone] Jan, [facility] [id number] [place] [address] Jan, [facility] [id number] [place] [address] Jan, [facility] [id number] [place] [address] Jan, Restrictive lung disease J98.4 ; Anemia D64.9 and Cor pulmonale I27.81 [facility] [id number] [place] [address] Dec, [facility] [id number] [place] [address] Dec, [facility] [id number] [place] [address] 14 Nov, 2015 Arthritis M19.90 and Hypokalemia E87.6 [facility] [id number] [place] [phone] Nov, Back pain M54.9 [facility] [id number] [place] [phone] October, Back pain M54.9 [facility] [id number] [place] [phone] October, Back pain M54.9 [facility] [id number] [place] [phone] Sep, Scabies exposure Z20.89 [facility] [id number] [place] [phone] Sep, Restrictive lung disease J98.4 [facility] [id number] [place] [phone] Sep, Back pain M54.9 [facility] [id number] [place] [phone] Sep, Restrictive lung disease J98.4 [facility] [id number] [place] [phone] Aug, [facility] [address] [phone] Aug, [facility] [id number] [place] [phone] Aug, [facility] [address] [phone] Aug, [facility] [id number] [place] [phone] Aug, Back pain M54.9 [facility] [id number] [place] [phone] Jul, Anemia D64.9 and Prediabetes R73.09 [facility] [id number] [place] [id number] Jul, Back pain M54.9 [facility] [id number] [place] [phone] 17 Jul, 2015 Back pain M54.9 [facility] [id number] [place] [id number] Jul, [facility] [id number] [place] [address] 05 Jul, 2015 Bronchitis J40 and Anemia D64.9 [facility] [id number] [place] [address] Jun, [facility] [id number] [place] [address] Jun, [facility] [address] [address] Jun, Bronchitis J40 and Anemia D64.9 [facility] [address] [address] Jun, [facility] [address] [address] Jun, Back pain M54.9 [facility] [address] [address] Jun, Anemia D64.9 [facility] [address] [address] Jun, Restrictive lung disease J98.4 ; Anemia D64.9 ; Hypothyroidism E03.9 ; Cor pulmonale I27.81 and Back pain M54.9 [facility] [id number] [place] [address] May, [facility] [address] [address] Apr, Anemia D64.9 ; Encounter for immunization Z23 and Restrictive lung disease J98.4 [facility] [id number] [place] [address] Apr, [facility] [id number] [place] [address] Mar, [facility] [address] [address] Mar, Iron deficiency anemia D50.9 [facility] [id number] [place] [address] Mar, [facility] [address] [address] Mar, [facility] [id number] [place] [address] Mar, Anemia D64.9 [facility] [id number] [place] [address] Mar, [facility] [id number] [place] [address] Mar, Anemia D64.9 [facility] [id number] [place] [address] Mar, Restrictive lung disease J98.4 and Anemia D64.9 [facility] [id number] [place] [address] Mar, [facility] [id number] [place] [address] Mar, Anemia D64.9 [facility] [id number] [place] [address] Mar, Anemia D64.9 [facility] [id number] [place] [address] Mar, [facility] [id number] [place] [address] 08 Mar, 2015 Diabetes mellitus E11.9 ; Bronchitis J40 and Anemia D64.9 [facility] [id number] [place] [address] 30 Feb, 2015 [facility] [id number] [place] [address] 25 Feb, 2015 [facility] [id number] [place] [address] 15 Feb, 2014 [facility] [id number] [place] [id number] 04 Sep, 2014 [facility] [id number] [place] [address] Jan, [facility] [id number] [place] [address] Jan, [facility] [id number] [place] [address] Dec, Venous insufficiency 459.81 [facility] [id number] [place] [address] Dec, [facility] [address] [address] Dec, [facility] [id number] [place] [address] Dec, Coronary atherosclerosis of unspecified type of vessel, ottawa or graft 414.00 ; Unspecified anemia 285.9 and Generalized osteoarthrosis, unspecified site 715.00 [facility] [address] [address] Nov, [facility] [id number] [place] [address] Nov, [facility] [id number] [place] [address] Nov, [facility] [id number] [place] [address] October, [facility] [id number] [place] [address] October, Acute bronchitis 466.0 and Shortness of breath 786.05 [facility] [id number] [place] [address] Sep, [facility] [address] [address] Sep, [facility] [id number] [place] [id number] Aug, [facility] [address] [address] Aug, [facility] [place] [facility] [address] [id number] [place] [address] Jul, [facility] [place] [facility] [address] [id number] [place] [address] Jul, [facility] [place] [facility] [address] [facility] [id number] [place] [address] Jul, [facility] [place] [facility] [address] [id number] [place] [address] Jul, [facility] [place] [facility] [address] [id number] [place] [address] Jun, [facility] [place] [facility] [address] [id number] [place] [address] Jun, [facility] [place] [facility] [address] [facility] [id number] [place] [address] Jun, [facility] [place] [facility] [address] [facility] [id number] [place] [address] Jun, [facility] [place] [facility] [address] [facility] [id number] [place] [address] Jun, [facility] [place] [facility] [address] [facility] [id number] [place] [address] Jun, [facility] [place] [facility] [address] [facility] [id number] [address] May, [facility] [place] [facility] [address] [id number] [place] [address] May, [facility] [place] [facility] [address] [id number] [place] [address] May, [facility] [place] [facility] [address] [facility] [id number] [place] [address] May, [facility] [place] [facility] [address] [facility] [id number] [place] [address] Apr, [facility] [place] [facility] [address] [id number] [place] [address] Apr, [facility] [place] [facility] [address] [id number] [place] [address] Apr, [facility] [place] [facility] [address] [id number] [place] [address] Apr, [facility] [place] [facility] [address] [id number] [place] [address] Apr, [facility] [place] [facility] [address] [id number] [place] [address] Apr, [facility] [place] [facility] [address] [id number] [place] [address] Mar, [facility] [place] [facility] [address] [id number] [place] [address] Mar, [facility] [place] [facility] [address] [id number] [place] [address] Mar, [facility] [place] [facility] [address] [id number] [place] [address] Mar, [facility] [place] [facility] [address] [id number] [place] [address] Mar, [facility] [place] [facility] [address] [facility] [id number] [place] [address] Mar, [facility] [place] [facility] [address] [id number] [place] [address] Mar, [facility] [place] [facility] [address] [id number] [place] [address] Mar, [facility] [place] [facility] [address] [id number] [place] [address] Feb, [facility] [place] [facility] [address] [id number] [place] [address] Feb, [facility] [place] [facility] [address] [id number] [place] [address] Jan, [facility] [place] [facility] [address] [id number] [place] [address] Jan, [facility] [place] [facility] [address] [id number] [place] [address] Jan, [facility] [place] [facility] [address] [id number] [place] [address] Jan, [facility] [place] [facility] [address] [id number] [place] [address] Jan, [facility] [place] [facility] [address] [id number] [place] [address] Jan, [facility] [place] [facility] [address] [id number] [place] [address] Dec, [facility] [place] [facility] [address] [id number] [place] [address] Dec, [facility] [place] [facility] [address] [id number] [place] [address] Dec, [facility] [place] [facility] [address] [id number] [place] [address] Dec, [facility] [place] [facility] [address] [id number] [place] [address] Nov, [facility] [place] [facility] [address] [id number] [place] [address] Nov, [facility] [place] [facility] [address] [id number] [place] [address] Nov, [facility] [place] [facility] [address] [id number] [place] [address] Nov, [facility] [place] [facility] [address] [id number] [place] [address] Nov, [facility] [place] [facility] [address] [id number] [place] [address] Nov, [facility] [place] [facility] [address] [id number] [place] [address] Nov, [facility] [place] [facility] [address] [id number] [place] [address] Nov, [facility] [place] [facility] [address] [id number] [place] [address] Nov, [facility] [place] [facility] [address] [id number] [place] [address] Nov, [facility] [place] [facility] [address] [id number] [place] [address] Nov, [facility] [place] [facility] [address] [id number] [place] [address] Nov, [facility] [place] [facility] [address] [id number] [place] [address] October, [facility] [place] [facility] [address] [id number] [place] [address] October, [facility] [place] [facility] [address] [id number] [place] [address] October, [facility] [place] [facility] [address] [id number] [place] [address] October, [facility] [place] [facility] [address] [id number] [place] [address] October, [facility] [place] [facility] [address] [id number] [place] [address] October, [facility] [place] [facility] [address] [id number] [place] [address] October, [facility] [place] [facility] [address] [id number] [place] [address] October, [facility] [place] [facility] [address] [id number] [place] [address] October, [facility] [place] [facility] [address] [id number] [place] [address] Sep, [facility] [place] [facility] [address] [id number] [place] [address] Sep, [facility] [place] [facility] [address] [id number] [place] [address] Sep, [facility] [place] [facility] [address] [id number] [place] [address] Sep, [facility] [place] [facility] [address] [id number] [place] [address] Sep, [facility] [place] [facility] [address] [id number] [place] [address] Sep, [facility] [place] [facility] [address] [id number] [place] [address] Aug, [facility] [place] [facility] [address] [id number] [place] [address] Aug, [facility] [place] [facility] [address] [id number] [place] [address] Aug, [facility] [place] [facility] [address] [id number] [place] [address] Aug, [facility] [place] [facility] [address] [id number] [place] [address] Aug, [facility] [place] [facility] [address] [id number] [place] [address] Aug, [facility] [place] [facility] [address] [id number] [place] [address] Aug, [facility] [place] [facility] [address] [id number] [place] [address] Aug, [facility] [place] [facility] [address] [id number] [place] [address] Aug, [facility] [place] [facility] [address] [id number] [place] [address] Aug, [facility] [place] [facility] [address] [id number] [place] [address] Jul, [facility] [address] [id number] [place] [address] Jul, [facility] [place] [facility] [address] [id number] [place] [address] Jun, [facility] [address] [id number] [place] [address] Jun, [facility] [place] [facility] [address] [id number] [place] [address] Jun, [facility] [address] [id number] [place] [address] Jun, [facility] [address] [id number] [place] [address] Jun, [facility] [address] [id number] [place] [address] Jun, [facility] [place] [facility] [address] [id number] [place] [address] Jun, [facility] [address] [id number] [place] [address] Jun, [facility] [address] [id number] [place] [address] May, [facility] [address] [id number] [place] [address] May, [facility] [place] [facility] [address] [id number] [place] [address] May, [facility] [place] [facility] [address] [id number] [place] [address] May, [facility] [place] [facility] [address] [id number] [place] [address] May, [facility] [place] [facility] [address] [id number] [place] [address] May, [facility] [place] [facility] [address] [id number] [place] [address] May, 2012 [facility] [place] [facility] [address] [id number] [place] [address] May, [facility] [place] [facility] [address] [id number] [place] [address] May, [facility] [place] [facility] [address] [id number] [place] [address] Apr, [facility] [place] [facility] [address] [id number] [place] [address] Apr, [facility] [place] [facility] [address] [id number] [place] [address] Apr, [facility] [place] [facility] [address] [id number] [place] [address] Apr, [facility] [place] [facility] [address] [id number] [place] [address] Mar, [facility] [place] [facility] [address] [id number] [place] [address] Mar, [facility] [place] [facility] [address] [id number] [place] [address] Mar, [facility] [place] [facility] [address] [id number] [place] [address] Mar, [facility] [place] [facility] [address] [id number] [place] [address] Mar, [facility] [place] [facility] [address] [id number] [place] [address] Mar, [facility] [place] [facility] [address] [id number] [place] [address] Mar, [facility] [place] [facility] [address] [id number] [place] [address] Mar, [facility] [place] [facility] [address] [id number] [place] [address] Mar, [facility] [place] [facility] [address] [id number] [place] [address] 25 Mar, 2012 [facility] [place] [facility] [address] [id number] [place] [address] 18 Mar, 2012 [facility] [place] [facility] [address] [id number] [place] [address] 18 Mar, 2012 [facility] [place] [facility] [address] [id number] [place] [address] 18 Mar, 2012 [facility] [place] [facility] [address] [id number] [place] [address] 18 Mar, 2012 [facility] [place] [facility] [address] [id number] [place] [address] 18 Mar, 2012 [facility] [place] [facility] [address] [id number] [place] [address] 18 Mar, 2012 [facility] [place] [facility] [address] [id number] [place] [address] 17 Mar, 2012 [facility] [place] [facility] [address] [id number] [place] [address] 17 Mar, 2012 [facility] [place] [facility] [address] [id number] [address] 15 Mar, 2012 [facility] [place] [facility] [address] [id number] [place] [address] 15 Mar, 2012 [facility] [place] [facility] [address] [id number] [place] [address] 14 Mar, 2012 [facility] [place] [facility] [address] [id number] [place] [address] 14 Mar, 2012 [facility] [place] [facility] [address] [id number] [address] 14 Mar, 2012 [facility] [place] [facility] [address] [id number] [place] [address] 14 Mar, 2012 [facility] [place] [facility] [address] [id number] [place] [address] Mar, [facility] [place] [facility] [address] [id number] [place] [address] Mar, [facility] [place] [facility] [address] [id number] [place] [address] Mar, [facility] [place] [facility] [address] [id number] [place] [address] Mar, 2012 [facility] [place] [facility] [address] [id number] [place] [address] Mar, [facility] [place] [facility] [address] [id number] [place] [address] Mar, [facility] [place] [facility] [address] [id number] [place] [address] Mar, [facility] [place] [facility] [address] [id number] [place] [address] Mar, [facility] [place] [facility] [address] [id number] [place] [address] Mar, [facility] [place] [facility] [address] [id number] [place] [address] 27 Feb, 2012 [facility] [place] [facility] [address] [id number] [place] [address] 11 Feb, 2013 [facility] [place] [facility] [address] [id number] [place] [address] 04 Feb, 2012 [facility] [place] [facility] [address] [id number] [place] [address] Feb, 2012 [facility] [place] [facility] [address] [id number] [place] [address] Jan, [facility] [place] [facility] [address] [id number] [place] [address] Jan, [facility] [place] [facility] [address] [id number] [place] [address] Jan, [facility] [place] [facility] [address] [id number] [place] [address] Jan, [facility] [place] [facility] [address] [id number] [place] [address] Jan, [facility] [place] [facility] [address] [id number] [place] [address] Jan, [facility] [place] [facility] [address] [id number] [place] [address] Dec, [facility] [place] [facility] [address] [id number] [place] [address] Dec, [facility] [place] [facility] [address] [id number] [place] [address] Dec, [facility] [place] [facility] [address] [id number] [place] [address] Dec, [facility] [place] [facility] [address] [id number] [place] [address] Dec, [facility] [place] [facility] [address] [id number] [place] [address] Dec, [facility] [place] [facility] [address] [id number] [place] [address] Dec, [facility] [place] [facility] [address] [id number] [place] [address] Dec, [facility] [place] [facility] [address] [id number] [place] [address] Dec, [facility] [place] [facility] [address] [id number] [place] [address] Dec, [facility] [place] [facility] [address] [id number] [place] [address] Dec, [facility] [place] [facility] [address] [id number] [place] [address] October, [facility] [place] [facility] [address] [id number] [place] [address] October, [facility] [id number] [address] October, [facility] [id number] [address] October, [facility] [id number] [address] Sep, [facility] [id number] [address] Sep, [facility] [id number] [address] Sep, [facility] [id number] [address] Sep, [facility] [id number] [address] Sep, [facility] [id number] [address] Sep, [facility] [id number] [address] Sep, [facility] [id number] [address] Sep, [facility] [id number] [address] Sep, [facility] [id number] [address] Sep, [facility] [id number] [address] Sep, IMMUNIZATIONS No Known Immunizations SOCIAL HISTORY Never Assessed REASON FOR VISIT EMR-[facility] PLAN OF CARE VITAL SIGNS MEDICATIONS Unknown [...] problems 09/2015 Hospitalization History Acute dyspnea, muscle cramps--[facility] 03/04/16 Hospitalization History RLE Cellulitis, Hypokalemia, anemia-[facility] 09/29/15 Hospitalization History Lower edema 09/2016 Hospitalization History Received stitches ER 10/2016 Hospitalization History hallucinations/ dimished mental capasity 03/19-03/21/18
--- OUTSIDE RECORDS SUMMARY | 2018-12-04 18:43 | XMS REPORT ---
Author Author Migration, Doctor Organization [facility] Address Unknown Phone Unavailable Care Team Providers Care Chef Assistant Name Role Phone Migration, Doctor Unavailable Unavailable PROBLEMS Type Condition ICD9-CM Code VVG68-XN Code Onset Dates Condition Status SNOMED Code Problem Restrictive lung disease J98.4 Active 35912490 Problem Cor pulmonale I27.81 Active 22630858 Problem Anemia D64.9 Active 570409859 Problem Prediabetes R73.09 Active 8050223 Problem Arthritis M19.90 Active 3123721 Problem Body mass index (BMI) of 45.0-49.9 in adult Z68.42 Active 337450736 Problem Neuropathy G62.9 Active 912837413 Problem Hypothyroidism E03.9 Active 84094499 Problem Type 2 diabetes mellitus without complication E11.9 Active 092737276 Problem Back pain M54.9 Active 427097255 Problem 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 Active 963231567 Problem Venous insufficiency I87.2 Active 21201021 Problem Coronary artery disease involving [place] coronary artery of [place] heart without angina pectoris I25.10 Active 1521193414603 Problem Obesity hypoventilation syndrome E66.2 Active 553790386 ALLERGIES No Information ENCOUNTERS Encounter Location Date Diagnosis [facility] [id number] [address] Sep, [facility] [id number] [place] [address] Aug, [facility] [address] [address] Aug, [facility] [id number] [place] [address] Jul, Type 2 diabetes mellitus without complication E11.9 and Arthritis M19.90 [facility] [id number] [place] [address] Jul, [facility] [address], [place] [address] Jul, [facility] [id number] [place] [address] Jul, [facility] [id number] [place] [address] Jun, [facility] [id number] [place] [address] Jun, [facility] [id number] [place] [address] Jun, Pneumonia of right lower lobe due to infectious organism J18.1 [facility] [id number] [place] [address] Jun, Cough R05 ; Wheeze R06.2 and Pneumonia of right lower lobe due to infectious organism J18.1 [facility] [address] [address] May, [facility] [id number] [place] [address] May, [facility] [id number] [place] [address] May, Venous insufficiency I87.2 [facility] [id number] [place] [address] May, [facility] [id number] [place] [address] Apr, [facility] [id number] [place] [address] Apr, Cor pulmonale I27.81 [facility] [id number] [place] [address] Apr, Venous insufficiency I87.2 [facility] [id number] [place] [address] Apr, [facility] [id number] [place] [address] Apr, Neuropathy G62.9 and Prediabetes R73.09 [facility] [id number] [place] [address] Apr, [facility] [address] [address] Apr, [facility] [id number] [place] [address] Apr, [facility] [address] [address] Apr, Swelling of right lower extremity M79.89 [facility] [address] [address] Apr, [facility] [address] [address] Mar, Bronchitis J40 [facility] [id number] [place] [address] Mar, [facility] [address] [address] Mar, 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 ; Encounter for immunization Z23 and Arthritis M19.90 [facility] [address] [address] Mar, Arthritis M19.90 and Back pain M54.9 [facility] [address] [address] Mar, [facility] [address] [address] Mar, [facility] [id number] [place] [address] Feb, Arthritis M19.90 [facility] [id number] [place] [address] Jan, Arthritis M19.90 [facility] [id number] [place] [address] Jan, Back pain M54.9 and Arthritis M19.90 [facility] [id number] [place] [address] Jan, [facility] [id number] [place] [address] Jan, Back pain M54.9 [facility] [id number] [place] [address] Jan, Arthritis M19.90 [facility] [id number] [place] [address] Jan, Back pain M54.9 [facility] [id number] [place] [address] Jan, [facility] [id number] [place] [address] Jan, Back pain M54.9 [facility] [id number] [place] [address] Dec, Ingrowing nail with infection L60.0 and Onychomycosis B35.1 [facility] [id number] [place] [address] Dec, Arthritis M19.90 [facility] [id number] [place] [address] Dec, Ingrowing nail L60.0 [facility] [id number] [place] [address] Dec, Back pain M54.9 [facility] [id number] [place] [address] Dec, [facility] [id number] [place] [address] Dec, Back pain M54.9 [facility] [address] [address] Nov, Arthritis M19.90 [facility] [id number] [place] [address] Nov, [facility] [address] [address] Nov, Arthritis M19.90 ; Anemia D64.9 ; Restrictive lung disease J98.4 ; Weakness R53.1 and BMI 50.0-59.9, adult Z68.43 [facility] [id number] [place] [address] Nov, Arthritis M19.90 [facility] [id number] [place] [address] Nov, Back pain M54.9 [facility] [id number] [place] [address] October, Back pain M54.9 [facility] [id number] [place] [address] October, Back pain M54.9 [facility] [id number] [place] [address] Sep, Back pain M54.9 [facility] [id number] [place] [address] Sep, Back pain M54.9 [facility] [id number] [place] [address] Sep, [facility] [id number] [place] [address] Sep, [facility] [id number] [place] [address] Sep, Swelling of right lower extremity M79.89 and Cellulitis of right lower extremity L03.115 [facility] [id number] [place] [address] Aug, Back pain M54.9 [facility] [id number] [place] [address] 15 Aug, 2017 Back pain M54.9 [facility] [address] [address] 13 Aug, 2017 [facility] [id number] [place] [address] 13 Aug, 2017 Cellulitis of right lower extremity L03.115 ; Ventral hernia without obstruction or gangrene K43.9 and BMI 50.0-59.9, adult Z68.43 [facility] [id number] [place] [address] 28 Jul, 2017 Back pain M54.9 [facility] [id number] [place] [address] 28 Jul, 2017 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 ; Arthritis M19.90 ; Back pain M54.9 ; Prediabetes R73.09 ; Hypothyroidism E03.9 ; Coronary artery disease involving [place] coronary artery of [place] heart without angina pectoris I25.10 and Anemia D64.9 [facility] [address] [place] [address] 27 Jul, 2017 half-way (current) 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 Z79.891 ; Back pain M54.9 ; Arthritis M19.90 ; Prediabetes R73.09 ; Hypothyroidism E03.9 ; Coronary artery disease involving [place] coronary artery of [place] heart without angina pectoris I25.10 ; Anemia D64.9 and BMI 45.0-49.9, adult Z68.42 [facility] [id number] [place] [address] 15 Jul, 2017 Back pain M54.9 [facility] [address] [place] [address] Jul, Back pain M54.9 [facility] [address] [address] Jun, Back pain M54.9 [facility] [address] [address] Jun, Back pain M54.9 [facility] [address] [address] May, Skin cancer of face C44.300 and BMI 45.0-49.9, adult Z68.42 [facility] [address] [address] May, [facility] [address] [address] May, Back pain M54.9 [facility] [address] [address] May, Back pain M54.9 [facility] [address] [address] May, Back pain M54.9 [facility] [address] [address] Apr, Back pain M54.9 [facility] [address] [address] Apr, Back pain M54.9 [facility] [address] [address] Mar, Back pain M54.9 [facility] [address] [address] Mar, Anemia D64.9 ; Encounter for immunization Z23 ; Arthritis M19.90 and Right inguinal hernia K40.90 [facility] [address] [address] Mar, Back pain M54.9 [facility] [address] [id number] [address] 22 Feb, 2017 Back pain M54.9 [facility] [address] [facility] [id number], [place] [address] 13 Feb, 2017 Back pain M54.9 [facility] [id number] [place] [address] Jan, Back pain M54.9 [facility] [id number] [place] [address] Jan, Back pain M54.9 [facility] [address] [facility] [id number] [place] [address] Jan, [facility] [address] [facility] [id number] [place] [address] Jan, Back pain M54.9 [facility] [address] [facility] [id number] [place] [address] Dec, Back pain M54.9 [facility] [address] [facility] [id number] [place] [address] Dec, Back pain M54.9 [facility] [address] [facility] [id number], [place] [address] Dec, [facility] [address] [facility] [id number] [place] [address] Nov, Hypokalemia E87.6 [facility] [address] [facility] [id number], [place] [address] Nov, Back pain M54.9 [facility] [address] [facility] [id number], [place] [address] Nov, [facility] [address] [facility] [id number], [place] [address] Nov, Arthritis M19.90 [facility] [id number] [place] [address] Nov, Back pain M54.9 [facility] [id number] [place] [address] Nov, Generalized edema R60.1 [facility] [id number] [place] [address] Nov, Back pain M54.9 [facility] [address] [address] 07 Nov, 2016 Pain in right knee M25.561 [facility] [id number] [place] [address] 05 Nov, 2016 Encounter for removal of sutures Z48.02 and Pain in right knee M25.561 [facility] [id number] [place] [address] Nov, Abrasion of right foot, subsequent encounter S90.811D [facility] [id number] [place] [address] October, Toe abrasion, right, initial encounter S90.414A [facility] [id number] [place] [address] October, [facility] [id number] [place] [address] October, Back pain M54.9 [facility] [id number] [place] [address] October, Venous insufficiency I87.2 [facility] [id number] [place] [address] October, Pain in right knee M25.561 [facility] [id number] [place] [address] Sep, Back pain M54.9 [facility] [id number] [place] [address] Sep, Venous insufficiency I87.2 [facility] [id number] [place] [id number] Sep, [facility] [id number] [place] [address] 16 Sep, 2016 Leg edema, right R60.0 and Cellulitis of right lower extremity L03.115 [facility] [id number] [place] [address] 14 Sep, 2016 Pedal edema R60.0 [facility] [id number] [place] [address] 04 Sep, 2016 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 ; Pain in right knee M25.561 and Arthritis M19.90 [facility] [id number] [place] [address] Aug, Back pain M54.9 [facility] [id number] [place] [address] Aug, Back pain M54.9 [facility] [id number] [place] [address] Aug, [facility] [id number] [place] [address] Aug, Type 2 diabetes mellitus without complication E11.9 ; Restrictive lung disease J98.4 ; Arthritis M19.90 ; Back pain M54.9 ; Body mass index (BMI) of 45.0-49.9 in adult Z68.42 and Morbid (severe) obesity due to excess calories E66.01 [facility] [id number] [place] [address] Aug, Back pain M54.9 [facility] [id number] [place] [address] Aug, Back pain M54.9 [facility] [id number] [place] [address] Jul, [facility] [address] [facility] [id number], [place] [address] Jul, Back pain M54.9 [facility] [address] [facility] [id number] [place] [address] Jul, Back pain M54.9 [facility] [address] [id number] [place] [address] Jun, Back pain M54.9 [facility] [address] [facility] [id number] [place] [address] Jun, Back pain M54.9 [facility] [id number] [place] [address] May, Back pain M54.9 [facility] [id number] [place] [address] 16 May, 2016 Back pain M54.9 [facility] [id number] [place] [address] May, Back pain M54.9 [facility] [id number] [place] [address] May, Back pain M54.9 [facility] [id number] [place] [address] May, [facility] [id number] [place] [address] May, Back pain M54.9 and Pain in right knee M25.561 [facility] [id number] [place] [address] Apr, [facility] [id number] [place] [address] Apr, Type 2 diabetes mellitus without complication E11.9 ; Pain in right knee M25.561 and Pain in left knee M25.562 [facility] [id number] [place] [address] Mar, [facility] [address] [facility] [id number] [address] Mar, [facility] [id number] [address] Mar, [facility] [address] [address] 18 Mar, 2016 Restrictive lung disease J98.4 ; Anemia D64.9 and Cor pulmonale I27.81 [facility] [address] [facility] [id number] [place] [address] 17 Mar, 2016 [facility] [id number] [place] [address] 14 Mar, 2016 [facility] [address] [address] Mar, [facility] [id number], [place] [address] 30 Feb, 2016 [facility] [id number] [address] 29 Feb, 2016 [facility] [address], [place] [address] 28 Feb, 2016 [facility] [address], [place] [address] 27 Feb, 2016 Restrictive lung disease J98.4 [facility] [address], [place] [address] 23 Feb, 2016 [facility] [address] [facility] [id number], [place] [address] 22 Feb, 2016 [facility] [address], [place] [address] 16 Feb, 2016 [facility] [id number] [address] 24 Jan, 2016 [facility] [id number] [place] [id number] Jan, [facility] [id number] [place] [id number] Jan, [facility] [id number] [place] [id number] Jan, [facility] [id number] [place] [id number] Jan, Restrictive lung disease J98.4 ; Anemia D64.9 and Cor pulmonale I27.81 [facility] [id number] [place] [id number] Dec, [facility] [id number] [place] [id number] Dec, [facility] [id number] [place] [id number] Nov, Arthritis M19.90 and Hypokalemia E87.6 [facility] [id number] [place] [id number] Nov, Back pain M54.9 [facility] [id number] [place] [id number] October, Back pain M54.9 [facility] [id number] [place] [id number] October, Back pain M54.9 [facility] [id number] [place] [id number] Sep, Scabies exposure Z20.89 [facility] [address] [id number] Sep, Restrictive lung disease J98.4 [facility] [id number] [place] [id number] Sep, Back pain M54.9 [facility] [id number] [place] [id number] Sep, Restrictive lung disease J98.4 [facility] [id number] [place] [id number] Aug, [facility] [id number] [place] [id number] Aug, [facility] [address] [id number] Aug, [facility] [id number] [place] [id number] Aug, [facility] [address] [address] Aug, Back pain M54.9 [facility] [id number] [place] [id number] Jul, Anemia D64.9 and Prediabetes R73.09 [facility] [id number] [place] [id number] Jul, Back pain M54.9 [facility] [id number] [place] [phone] Jul, Back pain M54.9 [facility] [id number] [place] [id number] Jul, [facility] [id number] [place] [id number] 05 Jul, 2015 Bronchitis J40 and Anemia D64.9 [facility] [id number] [place] [id number] Jun, [facility] [id number] [place] [id number] Jun, [facility] [id number] [place] [id number] Jun, Bronchitis J40 and Anemia D64.9 [facility] [id number] [place] [phone] Jun, [facility] [id number] [place] [id number] Jun, Back pain M54.9 [facility] [id number] [place] [id number] Jun, Anemia D64.9 [facility] [address] [address] Jun, Restrictive lung disease J98.4 ; Anemia D64.9 ; Hypothyroidism E03.9 ; Cor pulmonale I27.81 and Back pain M54.9 [facility] [facility] [address] [address] May, [facility] [address] [address] Apr, Anemia D64.9 ; Encounter for immunization Z23 and Restrictive lung disease J98.4 [facility] [id number] [place] [address] Apr, [facility] [address] [address] Mar, [facility] [id number] [place] [address] Mar, Iron deficiency anemia D50.9 [facility] [id number] [place] [address] Mar, [facility] [id number] [place] [address] Mar, [facility] [id number] [place] [address] Mar, Anemia D64.9 [facility] [id number] [place] [address] Mar, [facility] [address] [place] [address] Mar, Anemia D64.9 [facility] [id number] [place] [address] Mar, Restrictive lung disease J98.4 and Anemia D64.9 [facility] [id number] [place] [address] Mar, [facility] [address] [address] Mar, Anemia D64.9 [facility] [address] [address] Mar, Anemia D64.9 [facility] [address] [address] Mar, [facility] [address] [address] Mar, Diabetes mellitus E11.9 ; Bronchitis J40 and Anemia D64.9 [facility] [id number] [place] [address] 30 Feb, 2015 [facility] [id number] [place] [address] 25 Feb, 2015 [facility] [id number] [place] [address] 15 Feb, 2015 [facility] [id number] [place] [address] 04 Feb, 2015 [facility] [id number] [place] [address] Jan, [facility] [address] [address] Jan, [facility] [id number] [place] [address] Dec, Venous insufficiency 459.81 [facility] [address] [address] Dec, [facility] [id number] [address] Dec, [facility] [id number] [address] Dec, Coronary atherosclerosis of unspecified type of vessel, [place] or graft 414.00 ; Unspecified anemia 285.9 and Generalized osteoarthrosis, unspecified site 715.00 [facility] [id number] [address] Nov, [facility] [id number] [place] [address] Nov, [facility] [id number] [place] [address] Nov, [facility] [id number] [place] [address] October, [facility] [id number] [place] [address] October, Acute bronchitis 466.0 and Shortness of breath 786.05 [facility] [id number] [address] Sep, [facility] [id number] [address] Sep, [facility] [id number] [address] Aug, [facility] [id number], [place] [address] Aug, [facility] [id number] [address] Jul, [facility] [id number] [place] [address] Jul, [facility] [id number] [address] Jul, [facility] [place] [facility] [address] [id number] [place] [address] Jul, [facility] [place] [facility] [address] [id number] [place] [address] Jun, [facility] [place] [facility] [address] [facility] [id number] [place] [address] Jun, [facility] [place] [facility] [address] [id number] [place] [address] Jun, [facility] [place] [facility] [address] [id number] [place] [address] Jun, [facility] [place] [facility] [address] [facility] [id number] [place] [address] Jun, [facility] [place] [facility] [address] [facility] [id number] [place] [address] Jun, [facility] [place] [facility] [address] [facility] [id number] [place] [address] May, [facility] [place] [facility] [address] [id number] [place] [address] May, [facility] [place] [facility] [address] [facility] [id number] [place] [address] May, [facility] [place] [facility] [address] [facility] [id number] [place] [address] May, [facility] [place] [facility] [address] [id number] [place] [address] Apr, [facility] [place] [facility] [address] [id number] [place] [address] Apr, [facility] [place] [facility] [address] [facility] [id number] [place] [address] Apr, [facility] [place] [facility] [address] [facility] [id number] [place] [address] Apr, [facility] [place] [facility] [address] [id number] [place] [address] Apr, [facility] [place] [facility] [address] [id number] [place] [address] Apr, [facility] [place] [facility] [address] [id number] [place] [address] Mar, [facility] [place] [facility] [address] [id number] [place] [address] Mar, [facility] [place] [facility] [address] [id number] [place] [address] Mar, [facility] [place] [facility] [address] [id number] [place] [address] Mar, [facility] [place] [facility] [address] [id number] [place] [address] Mar, [facility] [place] [facility] [address] [id number] [place] [address] Mar, [facility] [place] [facility] [address] [id number] [place] [address] Mar, [facility] [place] [facility] [address] [id number] [place] [address] Mar, [facility] [place] [facility] [address] [id number] [place] [address] Feb, [facility] [place] [facility] [address] [id number] [place] [address] Feb, [facility] [place] [facility] [address] [id number] [place] [address] Jan, [facility] [place] [facility] [address] [id number] [place] [address] Jan, [facility] [place] [facility] [address] [id number] [place] [address] Jan, [facility] [place] [facility] [address] [id number] [place] [address] Jan, [facility] [place] [facility] [address] [id number] [place] [address] Jan, [facility] [place] [facility] [address] [id number] [place] [address] Jan, [facility] [place] [facility] [address] [id number] [place] [address] Dec, [facility] [place] [facility] [address] [id number] [place] [address] Dec, [facility] [place] [facility] [address] [id number] [place] [address] Dec, [facility] [place] [facility] [address] [id number] [place] [address] Dec, [facility] [place] [facility] [address] [id number] [place] [address] Nov, [facility] [place] [facility] [address] [id number] [place] [address] Nov, [facility] [place] [facility] [address] [id number] [place] [address] Nov, [facility] [place] [facility] [address] [id number] [place] [address] Nov, [facility] [place] [facility] [address] [id number] [place] [address] Nov, [facility] [place] [facility] [address] [id number] [place] [address] Nov, [facility] [place] [facility] [address] [id number] [place] [address] Nov, [facility] [place] [facility] [address] [id number] [place] [address] Nov, [facility] [place] [facility] [address] [id number] [place] [address] Nov, [facility] [place] [facility] [address] [id number] [place] [address] Nov, [facility] [place] [facility] [address] [id number] [place] [address] Nov, [facility] [place] [facility] [address] [id number] [place] [address] Nov, [facility] [place] [facility] [address] [id number] [place] [address] October, [facility] [place] [facility] [address] [id number] [place] [address] October, [facility] [place] [facility] [address] [id number] [place] [address] October, [facility] [place] [facility] [address] [id number] [place] [address] October, [facility] [place] [facility] [address] [id number] [place] [address] October, [facility] [place] [facility] [address] [id number] [place] [address] October, [facility] [place] [facility] [address] [id number] [place] [address] October, [facility] [place] [facility] [address] [id number] [place] [address] October, [facility] [place] [facility] [address] [id number] [place] [address] October, [facility] [place] [facility] [address] [id number] [place] [address] Sep, [facility] [place] [facility] [address] [id number] [place] [address] Sep, [facility] [place] [facility] [address] [id number] [place] [address] Sep, [facility] [place] [facility] [address] [id number] [place] [address] Sep, [facility] [place] [facility] [address] [id number] [place] [address] Sep, [facility] [place] [facility] [address] [id number] [place] [address] Sep, [facility] [place] [facility] [address] [id number] [place] [address] Aug, [facility] [place] [facility] [address] [id number] [place] [address] Aug, [facility] [place] [facility] [address] [id number] [place] [address] Aug, [facility] [place] [facility] [address] [id number] [place] [address] Aug, [facility] [place] [facility] [address] [id number] [place] [address] Aug, [facility] [place] [facility] [address] [id number] [place] [address] Aug, [facility] [place] [facility] [address] [id number] [place] [address] Aug, [facility] [place] [facility] [address] [id number] [place] [address] Aug, [facility] [place] [facility] [address] [id number] [place] [address] Aug, [facility] [place] [facility] [address] [id number] [place] [address] Aug, [facility] [place] [facility] [address] [id number] [place] [address] Jul, [facility] [place] [facility] [address] [id number] [place] [address] Jul, [facility] [place] [facility] [address] [id number] [place] [address] Jun, [facility] [place] [facility] [address] [id number] [place] [address] Jun, [facility] [address] [id number] [place] [address] Jun, [facility] [place] [facility] [address] [id number] [place] [address] Jun, [facility] [place] [facility] [address] [id number] [place] [address] Jun, [facility] [place] [facility] [address] [id number] [place] [address] Jun, [facility] [place] [facility] [address] [id number] [place] [address] Jun, [facility] [place] [facility] [address] [id number] [place] [address] Jun, [facility] [place] [facility] [address] [id number] [place] [address] May, [facility] [place] [facility] [address] [id number] [place] [address] May, [facility] [place] [facility] [address] [id number] [place] [address] May, [facility] [place] [facility] [address] [id number] [place] [address] May, [facility] [place] [facility] [address] [id number] [place] [address] May, [facility] [place] [facility] [address] [id number] [place] [address] May, [facility] [place] [facility] [address] [id number] [place] [address] May, [facility] [place] [facility] [address] [id number] [place] [address] May, [facility] [place] [facility] [address] [id number] [place] [address] May, [facility] [place] [facility] [address] [id number] [place] [address] Apr, 2012 [facility] [place] [facility] [address] [id number] [place] [address] Apr, [facility] [place] [facility] [address] [id number] [place] [address] Apr, [facility] [place] [facility] [address] [id number] [place] [address] Apr, [facility] [place] [facility] [address] [id number] [place] [address] Mar, [facility] [place] [facility] [address] [id number] [place] [address] Mar, [facility] [place] [facility] [address] [id number] [place] [address] Mar, [facility] [place] [facility] [address] [id number] [place] [address] Mar, 2012 [facility] [place] [facility] [address] [id number] [place] [address] Mar, [facility] [place] [facility] [address] [id number] [place] [address] Mar, [facility] [place] [facility] [address] [id number] [place] [address] Mar, [facility] [place] [facility] [address] [id number] [place] [address] Mar, [facility] [place] [facility] [address] [id number], [place] [address] Mar, [facility] [place] [facility] [address] [id number] [place] [address] Mar, [facility] [place] [facility] [address] [id number] [place] [address] Mar, [facility] [place] [facility] [address] [id number] [place] [address] Mar, [facility] [place] [facility] [address] [id number] [place] [address] 18 Mar, 2012 [facility] [place] [facility] [address] [id number] [place] [address] 18 Mar, 2012 [facility] [place] [facility] [address] [id number] [place] [address] 18 Mar, 2012 [facility] [place] [facility] [address] [id number] [place] [address] 18 Mar, 2012 [facility] [place] [facility] [address] [id number] [place] [address] 17 Mar, 2012 [facility] [place] [facility] [address] [id number] [place] [address] 17 Mar, 2012 [facility] [place] [facility] [address] [id number] [place] [address] 15 Mar, 2012 [facility] [place] [facility] [address] [id number] [place] [address] 15 Mar, 2012 [facility] [place] [facility] [address] [id number] [place] [address] 14 Mar, 2012 [facility] [place] [facility] [address] [id number], [place] [address] 14 Mar, 2012 [facility] [place] [facility] [address] [id number], [place] [address] 14 Mar, 2012 [facility] [place] [facility] [address] [id number], [place] [address] 14 Mar, 2012 [facility] [place] [facility] [address] [id number] [place] [address] 12 Mar, 2012 [facility] [place] [facility] [address] [id number], [place] [address] 11 Mar, 2012 [facility] [place] [facility] [address] [id number], [place] [address] 11 Mar, 2012 [facility] [place] [facility] [address] [id number] [place] [address] Mar, [facility] [place] [facility] [address] [id number] [place] [address] 10 Mar, 2013 [facility] [place] [facility] [address] [id number] [place] [address] Mar, [facility] [place] [facility] [address] [id number] [place] [address] Mar, [facility] [place] [facility] [address] [id number] [place] [address] Mar, [facility] [place] [facility] [address] [id number] [place] [address] Mar, [facility] [place] [facility] [address] [id number] [place] [address] 27 Feb, 2013 [facility] [place] [facility] [address] [id number] [place] [address] Feb, [facility] [place] [facility] [address] [id number] [place] [address] 04 Feb, 2013 [facility] [place] [facility] [address] [id number] [place] [address] Feb, [facility] [place] [facility] [address] [id number] [place] [address] Jan, [facility] [place] [facility] [address] [id number] [place] [address] Jan, [facility] [place] [facility] [address] [id number] [place] [address] Jan, [facility] [place] [facility] [address] [id number] [place] [address] Jan, [facility] [place] [facility] [address] [id number] [place] [address] Jan, [facility] [place] [facility] [address] [id number] [place] [address] Jan, [facility] [place] [facility] [address] [id number] [place] [address] Dec, [facility] [place] [facility] [address] [id number] [place] [address] Dec, [facility] [place] [facility] [address] [id number] [place] [address] Dec, [facility] [place] [facility] [address] [id number] [place] [address] Dec, [facility] [place] [facility] [address] [id number] [place] [address] Dec, [facility] [place] [facility] [address] [id number] [place] [address] Dec, [facility] [place] [facility] [address] [id number] [place] [address] Dec, [facility] [place] [facility] [address] [id number] [place] [address] Dec, [facility] [place] [facility] [address] [id number] [place] [address] Dec, [facility] [place] [facility] [address] [id number] [place] [address] Dec, [facility] [place] [facility] [address] [id number] [place] [address] Dec, [facility] [place] [facility] [address] [id number] [place] [address] October, [facility] [place] [facility] [address] [id number] [place] [address] October, [facility] [place] [facility] [address] [id number] [place] [address] October, [facility] [place] [facility] [address] [id number] [place] [address] October, [facility] [place] [facility] [address] [id number] [place] [address] Sep, [facility] [address] [id number] [address] 30 Sep, 2012 [facility] [id number] [place] [address] Sep, [facility] [address] [id number], [place] [address] Sep, [facility] [id number], [place] [address] Sep, [facility] [id number] [place] [address] Sep, [facility] [id number], [place] [address] Sep, [facility] [id number], [place] [address] Sep, [facility] [id number], [place] [address] Sep, [facility] [address] [id number] [address] Sep, [facility] [address] [id number], [place] [address] Sep, IMMUNIZATIONS No Known Immunizations SOCIAL HISTORY Never Assessed [place]AS[place] [place] VITAL SIGNS MEDICATIONS Unknown [...] problems 09/2015 Hospitalization History Acute dyspnea, muscle cramps--[facility] 03/04/16 Hospitalization History RLE Cellulitis, Hypokalemia, anemia-[facility] 09/29/15 Hospitalization History Lower edema 09/2016 Hospitalization History Received stitches ER 10/2016 Hospitalization History hallucinations/ dimished mental capasity 03/19-03/21/18
--- OUTSIDE RECORDS SUMMARY | 2018-12-04 18:44 | XMS REPORT ---
Author Author Migration, Doctor Organization [facility] Address Unknown Phone Unavailable Care Team Providers Care Telecommunication Operator Name Role Phone Migration, Doctor Unavailable Unavailable PROBLEMS Type Condition ICD9-CM Code WAF74-FY Code Onset Dates Condition Status SNOMED Code Problem Restrictive lung disease J98.4 Active 83936877 Problem Cor pulmonale I27.81 Active 17081604 Problem Anemia D64.9 Active 857171882 Problem Prediabetes R73.09 Active 1590785 Problem Arthritis M19.90 Active 2010107 Problem Body mass index (BMI) of 45.0-49.9 in adult Z68.42 Active 230372825 Problem Neuropathy G62.9 Active 411117460 Problem Hypothyroidism E03.9 Active 36973325 Problem Type 2 diabetes mellitus without complication E11.9 Active 727282188 Problem Back pain M54.9 Active 431915674 Problem 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 Active 751023907 Problem Venous insufficiency I87.2 Active 85912941 Problem Coronary artery disease involving shoshone-paiute coronary 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 Active 0725703778003 Problem Obesity hypoventilation syndrome E66.2 Active 016992810 ALLERGIES No Information ENCOUNTERS Encounter Location Date Diagnosis [facility] [address] [address] Sep, [facility] [id number] [place] [address] Aug, [facility] [address] [address] Aug, [facility] [id number] [place] [address] Jul, Type 2 diabetes mellitus without complication E11.9 and Arthritis M19.90 [facility] [address] [place] [address] Jul, [facility] [address] [address] Jul, [facility] [id number] [place] [address] Jul, [facility] [id number] [place] [address] Jun, [facility] [id number] [place] [address] Jun, [facility] [id number] [place] [address] Jun, Pneumonia of right lower lobe due to infectious organism J18.1 [facility] [address] [place] [address] Jun, Cough R05 ; Wheeze R06.2 and Pneumonia of right lower lobe due to infectious organism J18.1 [facility] [address] [address] May, [facility] [id number] [place] [address] May, [facility] [address] [place] [address] May, Venous insufficiency I87.2 [facility] [address] [place] [address] May, [facility] [address] [place] [address] Apr, [facility] [id number] [place] [address] Apr, Cor pulmonale I27.81 [facility] [address] [place] [address] Apr, Venous insufficiency I87.2 [facility] [id number] [place] [address] Apr, [facility] [id number] [place] [address] Apr, Neuropathy G62.9 and Prediabetes R73.09 [facility] [id number] [place] [address] Apr, [facility] [address] [address] Apr, [facility] [id number] [place] [address] Apr, [facility] [address] [address] Apr, Swelling of right lower extremity M79.89 [facility] [address] [address] Apr, [facility] [address] [address] Mar, Bronchitis J40 [facility] [id number] [place] [address] Mar, [facility] [address] [address] Mar, 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 ; Encounter for immunization Z23 and Arthritis M19.90 [facility] [address] [address] Mar, Arthritis M19.90 and Back pain M54.9 [facility] [address] [address] Mar, [facility] [address] [address] Mar, [facility] [id number] [place] [address] Feb, Arthritis M19.90 [place] [id number] [place] [address] Jan, Arthritis M19.90 [facility] [id number] [place] [address] Jan, Back pain M54.9 and Arthritis M19.90 [facility] [id number] [place] [address] Jan, [facility] [id number] [place] [address] Jan, Back pain M54.9 [facility] [id number] [place] [address] Jan, Arthritis M19.90 [facility] [id number] [place] [address] Jan, Back pain M54.9 [facility] [id number] [place] [address] Jan, [facility] [id number] [place] [address] Jan, Back pain M54.9 [facility] [id number] [place] [address] Dec, Ingrowing nail with infection L60.0 and Onychomycosis B35.1 [facility] [address] [place] [address] Dec, Arthritis M19.90 [facility] [address] [place] [address] Dec, Ingrowing nail L60.0 [facility] [address] [place] [address] Dec, Back pain M54.9 [facility] [address] [place] [address] Dec, [facility] [id number] [place] [address] Dec, Back pain M54.9 [facility] [address] [address] Nov, Arthritis M19.90 [facility] [id number] [place] [address] Nov, [facility] [address] [address] Nov, Arthritis M19.90 ; Anemia D64.9 ; Restrictive lung disease J98.4 ; Weakness R53.1 and BMI 50.0-59.9, adult Z68.43 [place] [id number] [place] [address] Nov, Arthritis M19.90 [place] [id number] [place] [address] Nov, Back pain M54.9 [facility] [id number] [place] [address] October, Back pain M54.9 [facility] [id number] [place] [address] October, Back pain M54.9 [facility] [id number] [place] [address] Sep, Back pain M54.9 [facility] [id number] [place] [address] Sep, Back pain M54.9 [facility] [id number] [place] [address] Sep, [facility] [id number] [place] [address] Sep, [facility] [id number] [place] [address] Sep, Swelling of right lower extremity M79.89 and Cellulitis of right lower extremity L03.115 [place] [id number] [place] [address] Aug, Back pain M54.9 [place] [id number] [place] [address] 15 Aug, 2017 Back pain M54.9 [place] [address] [address] 13 Aug, 2017 [place] [id number] [place] [address] 13 Aug, 2017 Cellulitis of right lower extremity L03.115 ; Ventral hernia without obstruction or gangrene K43.9 and BMI 50.0-59.9, adult Z68.43 [place] [id number] [place] [address] 28 Jul, 2017 Back pain M54.9 [place] [id number] [place] [address] 28 Jul, 2017 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 ; Arthritis M19.90 ; Back pain M54.9 ; Prediabetes R73.09 ; Hypothyroidism E03.9 ; Coronary artery disease involving shosh[place]-paiute coronary 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 and Anemia D64.9 [place] [address] [place] [address] 27 Jul, 2017 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 Z79.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 ; Back pain M54.9 ; Arthritis M19.90 ; Prediabetes R73.09 ; Hypothyroidism E03.9 ; Coronary artery disease involving shosh[place]-pai[place] coronary 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 ; Anemia D64.9 and BMI 45.0-49.9, adult Z68.42 [place] [address] [place] [address] 15 Jul, 2017 Back pain M54.9 [place] [address] [place] [address] Jul, Back pain M54.9 [facility] [address] [address] Jun, Back pain M54.9 [facility] [address] [address] Jun, Back pain M54.9 [facility] [address] [address] May, Skin cancer of face C44.300 and BMI 45.0-49.9, adult Z68.42 [facility] [address] [address] May, [facility] [address] [address] May, Back pain M54.9 [facility] [address] [address] May, Back pain M54.9 [facility] [address] [address] May, Back pain M54.9 [facility] [address] [address] Apr, Back pain M54.9 [facility] [address] [address] Apr, Back pain M54.9 [facility] [address] [address] Mar, Back pain M54.9 [facility] [address] [address] Mar, Anemia D64.9 ; Encounter for immunization Z23 ; Arthritis M19.90 and Right inguinal hernia K40.90 [facility] [address] [address] Mar, Back pain M54.9 [facility] [address] [id number] [address] 22 Feb, 2017 Back pain M54.9 [facility] [address] [facility] [id number], [place] [address] 13 Feb, 2017 Back pain M54.9 [facility] [id number] [place] [address] Jan, Back pain M54.9 [facility] [id number] [place] [address] Jan, Back pain M54.9 [facility] [address] [facility] [id number] [place] [address] Jan, [facility] [address] [facility] [id number] [place] [address] Jan, Back pain M54.9 [facility] [address] [facility] [id number] [place] [address] Dec, Back pain M54.9 [facility] [address] [facility] [id number] [place] [address] Dec, Back pain M54.9 [facility] [address] [facility] [id number], [place] [address] Dec, [facility] [address] [facility] [id number] [place] [address] Nov, Hypokalemia E87.6 [facility] [address] [facility] [id number], [place] [address] Nov, Back pain M54.9 [facility] [address] [facility] [id number], [place] [address] Nov, [facility] [address] [facility] [id number], [place] [address] Nov, Arthritis M19.90 [facility] [id number] [place] [address] Nov, Back pain M54.9 [facility] [id number] [place] [address] Nov, Generalized edema R60.1 [facility] [id number] [place] [address] Nov, Back pain M54.9 [place] [address] [address] 07 Nov, 2016 Pain in right knee M25.561 [place] [id number] [place] [address] 05 Nov, 2016 Encounter for removal of sutures Z48.02 and Pain in right knee M25.561 [facility] [id number] [place] [address] Nov, Abrasion of right foot, subsequent encounter S90.811D [facility] [id number] [place] [address] October, Toe abrasion, right, initial encounter S90.414A [place] [id number] [place] [address] October, [place] [id number] [place] [address] October, Back pain M54.9 [place] [id number] [place] [address] October, Venous insufficiency I87.2 [place] [id number] [place] [address] October, Pain in right knee M25.561 [facility] [id number] [place] [address] Sep, Back pain M54.9 [place] [id number] [place] [address] Sep, Venous insufficiency I87.2 [facility] [id number] [place] [id number] Sep, [facility] [id number] [place] [address] 16 Sep, 2016 Leg edema, right R60.0 and Cellulitis of right lower extremity L03.115 [place] [id number] [place] [address] 14 Sep, 2016 Pedal edema R60.0 [facility] [id number] [place] [address] 04 Sep, 2016 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 ; Pain in right knee M25.561 and Arthritis M19.90 [place] [id number] [place] [address] Aug, Back pain M54.9 [facility] [id number] [place] [address] Aug, Back pain M54.9 [place] [id number] [place] [address] Aug, [place] [id number] [place] [address] Aug, Type 2 diabetes mellitus without complication E11.9 ; Restrictive lung disease J98.4 ; Arthritis M19.90 ; Back pain M54.9 ; Body mass index (BMI) of 45.0-49.9 in adult Z68.42 and Morbid (severe) obesity due to excess calories E66.01 [facility] [id number] [place] [address] Aug, Back pain M54.9 [facility] [id number] [place] [address] Aug, Back pain M54.9 [facility] [id number] [place] [address] Jul, [facility] [address] [facility] [id number], [place] [address] Jul, Back pain M54.9 [facility] [address] [facility] [id number] [place] [address] Jul, Back pain M54.9 [facility] [address] [id number] [place] [address] Jun, Back pain M54.9 [facility] [address] [facility] [id number] [place] [address] Jun, Back pain M54.9 [facility] [id number] [place] [address] May, Back pain M54.9 [facility] [id number] [place] [address] 16 May, 2016 Back pain M54.9 [facility] [id number] [place] [address] May, Back pain M54.9 [facility] [id number] [place] [address] May, Back pain M54.9 [facility] [id number] [place] [address] May, [facility] [id number] [place] [address] May, Back pain M54.9 and Pain in right knee M25.561 [facility] [id number] [place] [address] Apr, [facility] [id number] [place] [address] Apr, Type 2 diabetes mellitus without complication E11.9 ; Pain in right knee M25.561 and Pain in left knee M25.562 [facility] [id number] [place] [address] Mar, [facility] [address] [facility] [id number] [place] [address] Mar, [facility] [id number] [address] Mar, [facility] [address] [address] 18 Mar, 2016 Restrictive lung disease J98.4 ; Anemia D64.9 and Cor pulmonale I27.81 [facility] [address] [facility] [id number] [place] [address] 17 Mar, 2016 [facility] [id number] [place] [address] 14 Mar, 2016 [facility] [address] [address] Mar, [facility] [id number] [address] 30 Feb, 2016 [facility] [id number] [address] 29 Feb, 2016 [facility] [address] [address] 28 Feb, 2016 [facility] [address] [address] 27 Feb, 2016 Restrictive lung disease J98.4 [facility] [address] [address] [address], [address] [facility] [address] [facility] [id number], [place] [address] 22 Feb, 2016 [facility] [address] [address] 16 Feb, 2016 [facility] [id number] [address] 24 Jan, 2016 [facility] [id number] [place] [address] Jan, [facility] [id number] [place] [address] Jan, [facility] [id number] [place] [address] Jan, [facility] [id number] [place] [address] Jan, Restrictive lung disease J98.4 ; Anemia D64.9 and Cor pulmonale I27.81 [facility] [id number] [place] [address] Dec, [facility] [id number] [place] [address] Dec, [facility] [id number] [place] [address] Nov, Arthritis M19.90 and Hypokalemia E87.6 [facility] [id number] [place] [address] Nov, Back pain M54.9 [facility] [id number] [place] [id number] October, Back pain M54.9 [facility] [id number] [place] [phone] October, Back pain M54.9 [facility] [id number] [place] [id number] Sep, Scabies exposure Z20.89 [facility] [address] [id number] Sep, Restrictive lung disease J98.4 [facility] [id number] [place] [phone] Sep, Back pain M54.9 [facility] [id number] [place] [phone] Sep, Restrictive lung disease J98.4 [facility] [id number] [place] [phone] Aug, [facility] [id number] [place] [phone] Aug, [facility] [address] [id number] Aug, [facility] [id number] [place] [phone] Aug, [facility] [address] [id number] Aug, Back pain M54.9 [facility] [id number] [place] [phone] Jul, Anemia D64.9 and Prediabetes R73.09 [facility] [id number] [place] [id number] Jul, Back pain M54.9 [facility] [id number] [place] [phone] Jul, Back pain M54.9 [facility] [id number] [place] [phone] Jul, [facility] [id number] [place] [phone] 05 Jul, 2015 Bronchitis J40 and Anemia D64.9 [facility] [id number] [place] [phone] Jun, [facility] [id number] [place] [id number] Jun, [facility] [id number] [place] [id number] Jun, Bronchitis J40 and Anemia D64.9 [facility] [id number] [place] [phone] Jun, [facility] [id number] [place] [id number] Jun, Back pain M54.9 [facility] [id number] [place] [phone] Jun, Anemia D64.9 [facility] [address] [address] Jun, Restrictive lung disease J98.4 ; Anemia D64.9 ; Hypothyroidism E03.9 ; Cor pulmonale I27.81 and Back pain M54.9 [facility] [address] [phone] May, [facility] [address] [id number] Apr, Anemia D64.9 ; Encounter for immunization Z23 and Restrictive lung disease J98.4 [facility] [id number] [place] [place] [address] Apr, [facility] [address] [address] Mar, [facility] [id number] [place] [address] Mar, Iron deficiency anemia D50.9 [facility] [id number] [place] [address] Mar, [facility] [id number] [place] [address] Mar, [facility] [id number] [place] [address] Mar, Anemia D64.9 [facility] [id number] [place] [address] Mar, [facility] [address] [place] [address] Mar, Anemia D64.9 [facility] [id number] [place] [address] Mar, Restrictive lung disease J98.4 and Anemia D64.9 [facility] [id number] [place] [address] Mar, [facility] [address] [address] Mar, Anemia D64.9 [facility] [address] [address] Mar, Anemia D64.9 [facility] [address] [address] Mar, [facility] [address] [address] Mar, Diabetes mellitus E11.9 ; Bronchitis J40 and Anemia D64.9 [facility] [id number] [place] [address] 30 Feb, 2015 [facility] [id number] [place] [address] 25 Feb, 2015 [facility] [id number] [place] [address] 15 Feb, 2015 [facility] [id number] [place] [address] 04 Feb, 2015 [facility] [id number] [place] [address] Jan, [facility] [address] [address] Jan, [facility] [id number] [place] [address] Dec, Venous insufficiency 459.81 [facility] [address] [address] Dec, [facility] [address] [address] Dec, [facility] [address], [place] [address] Dec, Coronary atherosclerosis of unspecified type of vessel, [place] or graft 414.00 ; Unspecified anemia 285.9 and Generalized osteoarthrosis, unspecified site 715.00 [facility] [id number] [address] Nov, [facility] [id number] [place] [address] Nov, [facility] [id number] [place] [address] Nov, [facility] [id number] [place] [address] October, [facility] [id number] [place] [address] October, Acute bronchitis 466.0 and Shortness of breath 786.05 [facility] [address] [address] Sep, [facility] [address], [place] [address] Sep, [facility] [address], [place] [address] Aug, [facility] [address] [address] Aug, [facility] [id number] [address] Jul, [facility] [address], [place] [address] Jul, [facility] [id number] [address] Jul, [facility] [place] [facility] [address] [id number] [place] [address] Jul, [facility] [place] [facility] [address] [id number] [place] [address] Jun, [facility] [place] [facility] [address] [facility] [id number] [place] [address] Jun, [facility] [place] [facility] [address] [id number] [place] [address] Jun, [facility] [place] [facility] [address] [id number] [place] [address] Jun, [facility] [place] [facility] [address] [facility] [id number] [place] [address] Jun, [facility] [place] [facility] [address] [facility] [id number] [place] [address] Jun, [facility] [place] [facility] [address] [facility] [id number] [place] [address] May, [facility] [place] [facility] [address] [id number] [place] [address] May, [facility] [place] [facility] [address] [facility] [id number] [place] [address] May, [facility] [place] [facility] [address] [facility] [id number] [place] [address] May, [facility] [place] [facility] [address] [id number] [place] [address] Apr, [facility] [place] [facility] [address] [id number] [place] [address] Apr, [facility] [place] [facility] [address] [facility] [id number] [place] [address] Apr, [facility] [place] [facility] [address] [facility] [id number] [place] [address] Apr, [facility] [place] [facility] [address] [id number] [place] [address] Apr, [facility] [place] [facility] [address] [id number] [place] [address] Apr, [facility] [place] [facility] [address] [id number] [place] [address] Mar, [facility] [place] [facility] [address] [id number] [place] [address] Mar, [facility] [place] [facility] [address] [id number] [place] [address] Mar, [facility] [place] [facility] [address] [id number] [place] [address] Mar, [facility] [place] [facility] [address] [id number] [place] [address] Mar, [facility] [place] [facility] [address] [id number] [place] [address] Mar, [facility] [place] [facility] [address] [id number] [place] [address] Mar, [facility] [place] [facility] [address] [id number] [place] [address] Mar, [facility] [place] [facility] [address] [id number] [place] [address] Feb, [facility] [place] [facility] [address] [id number] [place] [address] Feb, [facility] [place] [facility] [address] [id number] [place] [address] Jan, [facility] [place] [facility] [address] [id number] [place] [address] Jan, [facility] [place] [facility] [address] [id number] [place] [address] Jan, [facility] [place] [facility] [address] [id number] [place] [address] Jan, [facility] [place] [facility] [address] [id number] [place] [address] Jan, [facility] [place] [facility] [address] [id number] [place] [address] Jan, [facility] [place] [facility] [address] [id number] [place] [address] Dec, [facility] [place] [facility] [address] [id number] [place] [address] Dec, [facility] [place] [facility] [address] [id number] [place] [address] Dec, [facility] [place] [facility] [address] [id number] [place] [address] Dec, [facility] [place] [facility] [address] [id number] [place] [address] Nov, [facility] [place] [facility] [address] [id number] [place] [address] Nov, [facility] [place] [facility] [address] [id number] [place] [address] Nov, [facility] [place] [facility] [address] [id number] [place] [address] Nov, [facility] [place] [facility] [address] [id number] [place] [address] Nov, [facility] [place] [facility] [address] [id number] [place] [address] Nov, [facility] [place] [facility] [address] [id number] [place] [address] Nov, [facility] [place] [facility] [address] [id number] [place] [address] Nov, [facility] [place] [facility] [address] [id number] [place] [address] Nov, [facility] [place] [facility] [address] [id number] [place] [address] Nov, [facility] [place] [facility] [address] [id number] [place] [address] Nov, [facility] [place] [facility] [address] [id number] [place] [address] Nov, [facility] [place] [facility] [address] [id number] [place] [address] October, [facility] [place] [facility] [address] [id number] [place] [address] October, [facility] [place] [facility] [address] [id number] [place] [address] October, [facility] [place] [facility] [address] [id number] [place] [address] October, [facility] [place] [facility] [address] [id number] [place] [address] October, [facility] [place] [facility] [address] [id number] [place] [address] October, [facility] [place] [facility] [address] [id number] [place] [address] October, [facility] [place] [facility] [address] [id number] [place] [address] October, [facility] [place] [facility] [address] [id number] [place] [address] October, [facility] [place] [facility] [address] [id number] [place] [address] Sep, [facility] [place] [facility] [address] [id number] [place] [address] Sep, [facility] [place] [facility] [address] [id number] [place] [address] Sep, [facility] [place] [facility] [address] [id number] [place] [address] Sep, [facility] [place] [facility] [address] [id number] [place] [address] Sep, [facility] [place] [facility] [address] [id number] [place] [address] Sep, [facility] [place] [facility] [address] [id number] [place] [address] Aug, [facility] [place] [facility] [address] [id number] [place] [address] Aug, [facility] [place] [facility] [address] [id number] [place] [address] Aug, [facility] [place] [facility] [address] [id number] [place] [address] Aug, [facility] [place] [facility] [address] [id number] [place] [address] Aug, [facility] [place] [facility] [address] [id number] [place] [address] Aug, [facility] [place] [facility] [address] [id number] [place] [address] Aug, [facility] [place] [facility] [address] [id number] [place] [address] Aug, [facility] [place] [facility] [address] [id number] [place] [address] Aug, [facility] [place] [facility] [address] [id number] [place] [address] Aug, [facility] [place] [facility] [address] [id number] [place] [address] Jul, [facility] [place] [facility] [address] [id number] [place] [address] Jul, [facility] [place] [facility] [address] [id number] [place] [address] Jun, [facility] [place] [facility] [address] [id number] [place] [address] Jun, [facility] [address] [id number] [place] [address] Jun, [facility] [place] [facility] [address] [id number] [place] [address] Jun, [facility] [place] [facility] [address] [id number] [place] [address] Jun, [facility] [place] [facility] [address] [id number] [place] [address] Jun, [facility] [place] [facility] [address] [id number] [place] [address] Jun, [facility] [place] [facility] [address] [id number] [place] [address] Jun, [facility] [place] [facility] [address] [id number] [place] [address] May, [facility] [place] [facility] [address] [id number] [place] [address] May, [facility] [place] [facility] [address] [id number] [place] [address] May, [facility] [place] [facility] [address] [id number] [place] [address] May, [facility] [place] [facility] [address] [id number] [place] [address] May, [facility] [place] [facility] [address] [id number] [place] [address] May, [facility] [place] [facility] [address] [id number] [place] [address] May, [facility] [place] [facility] [address] [id number] [place] [address] May, [facility] [place] [facility] [address] [id number] [place] [address] May, [facility] [place] [facility] [address] [id number] [place] [address] Apr, 2012 [facility] [place] [facility] [address] [id number] [place] [address] Apr, [facility] [place] [facility] [address] [id number] [place] [address] Apr, [facility] [place] [facility] [address] [id number] [place] [address] Apr, [facility] [place] [facility] [address] [id number] [place] [address] Mar, [facility] [place] [facility] [address] [id number] [place] [address] Mar, [facility] [place] [facility] [address] [id number] [place] [address] Mar, [facility] [place] [facility] [address] [id number] [place] [address] Mar, 2012 [facility] [place] [facility] [address] [id number] [place] [address] Mar, [facility] [place] [facility] [address] [id number] [place] [address] Mar, [facility] [place] [facility] [address] [id number] [place] [address] Mar, [facility] [place] [facility] [address] [id number] [place] [address] Mar, [facility] [place] [facility] [address] [id number], [place] [address] Mar, [facility] [place] [facility] [address] [id number] [place] [address] Mar, [facility] [place] [facility] [address] [id number] [place] [address] Mar, [facility] [place] [facility] [address] [id number] [place] [address] Mar, [facility] [place] [facility] [address] [id number] [place] [address] 18 Mar, 2012 [facility] [place] [facility] [address] [id number] [place] [address] 18 Mar, 2012 [facility] [place] [facility] [address] [id number] [place] [address] 18 Mar, 2012 [facility] [place] [facility] [address] [id number] [place] [address] 18 Mar, 2012 [facility] [place] [facility] [address] [id number] [place] [address] 17 Mar, 2012 [facility] [place] [facility] [address] [id number] [place] [address] 17 Mar, 2012 [facility] [place] [facility] [address] [id number] [place] [address] 15 Mar, 2012 [facility] [place] [facility] [address] [id number] [place] [address] 15 Mar, 2012 [facility] [place] [facility] [address] [id number] [place] [address] 14 Mar, 2012 [facility] [place] [facility] [address] [id number], [place] [address] 14 Mar, 2012 [facility] [place] [facility] [address] [id number], [place] [address] 14 Mar, 2012 [facility] [place] [facility] [address] [id number], [place] [address] 14 Mar, 2012 [facility] [place] [facility] [address] [id number] [place] [address] 12 Mar, 2012 [facility] [place] [facility] [address] [id number], [place] [address] 11 Mar, 2012 [facility] [place] [facility] [address] [id number], [place] [address] 11 Mar, 2012 [facility] [place] [facility] [address] [id number] [place] [address] Mar, [facility] [place] [facility] [address] [id number] [place] [address] 10 Mar, 2013 [facility] [place] [facility] [address] [id number] [place] [address] Mar, [facility] [place] [facility] [address] [id number] [place] [address] Mar, [facility] [place] [facility] [address] [id number] [place] [address] Mar, [facility] [place] [facility] [address] [id number] [place] [address] Mar, [facility] [place] [facility] [address] [id number] [place] [address] 27 Feb, 2013 [facility] [place] [facility] [address] [id number] [place] [address] Feb, [facility] [place] [facility] [address] [id number] [place] [address] 04 Feb, 2013 [facility] [place] [facility] [address] [id number] [place] [address] Feb, [facility] [place] [facility] [address] [id number] [place] [address] Jan, [facility] [place] [facility] [address] [id number] [place] [address] Jan, [facility] [place] [facility] [address] [id number] [place] [address] Jan, [facility] [place] [facility] [address] [id number] [place] [address] Jan, [facility] [place] [facility] [address] [id number] [place] [address] Jan, [facility] [place] [facility] [address] [id number] [place] [address] Jan, [facility] [place] [facility] [address] [id number] [place] [address] Dec, [facility] [place] [facility] [address] [id number] [place] [address] Dec, [facility] [place] [facility] [address] [id number] [place] [address] Dec, [facility] [place] [facility] [address] [id number] [place] [address] Dec, [facility] [place] [facility] [address] [id number] [place] [address] Dec, [facility] [place] [facility] [address] [id number] [place] [address] Dec, [facility] [place] [facility] [address] [id number] [place] [address] Dec, [facility] [place] [facility] [address] [id number] [place] [address] Dec, [facility] [place] [facility] [address] [id number] [place] [address] Dec, [facility] [place] [facility] [address] [id number] [place] [address] Dec, [facility] [place] [facility] [address] [id number] [place] [address] Dec, [facility] [place] [facility] [address] [id number] [place] [address] October, [facility] [place] [facility] [address] [id number] [place] [address] October, [facility] [place] [facility] [address] [id number] [place] [address] October, [facility] [place] [facility] [address] [id number] [place] [address] October, [facility] [place] [facility] [address] [id number] [place] [address] Sep, [facility] [address] [id number] [address] 30 Sep, 2012 [facility] [id number] [address] Sep, [facility] [address] [id number] [address] Sep, [facility] [id number] [address] Sep, [facility] [id number] [address] Sep, [facility] [id number] [address] Sep, [facility] [id number] [address] Sep, [facility] [id number] [address] Sep, [facility] [address] [id number] [address] Sep, [facility] [address] [id number] [address] Sep, IMMUNIZATIONS No Known Immunizations SOCIAL HISTORY Never Assessed REASON FOR VISIT [place] [place] VITAL SIGNS MEDICATIONS Unknown [...] Hospitalization History Acute dyspnea, muscle cramps--[facility] 03/04/16 Hospitalization History RLE Cellulitis, Hypokalemia, anemia-[facility] 09/29/15 Hospitalization History Lower edema 09/2016 Hospitalization History Received stitches ER 10/2016 Hospitalization History hallucinations/ dimished mental capasity 03/19-03/21/18
--- OUTSIDE RECORDS SUMMARY | 2018-12-04 18:45 | XMS REPORT ---
Author Author Migration, Doctor Organization [facility] Address Unknown Phone Unavailable Care Team Providers Care Gold Beater Name Role Phone Migration, Doctor Unavailable Unavailable PROBLEMS Type Condition ICD9-CM Code NKE58-RA Code Onset Dates Condition Status SNOMED Code Problem Restrictive lung disease J98.4 Active 97697524 Problem Cor pulmonale I27.81 Active 94605476 Problem Anemia D64.9 Active 455917809 Problem Prediabetes R73.09 Active 6821648 Problem Arthritis M19.90 Active 4883898 Problem Body mass index (BMI) of 45.0-49.9 in adult Z68.42 Active 732197742 Problem Neuropathy G62.9 Active 589865347 Problem Hypothyroidism E03.9 Active 33011989 Problem Type 2 diabetes mellitus without complication E11.9 Active 014366234 Problem Back pain M54.9 Active 720336620 Problem 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 Active 059492929 Problem Venous insufficiency I87.2 Active 00424855 Problem Coronary artery disease involving [place] coronary artery of [place] heart without angina pectoris I25.10 Active 9677479463210 Problem Obesity hypoventilation syndrome E66.2 Active 000776555 ALLERGIES No Information ENCOUNTERS Encounter Location Date Diagnosis [facility] [id number] [address] Aug, [facility] [id number] [address] Aug, [facility] [id number] [address] Jul, Type 2 diabetes mellitus without complication E11.9 and Arthritis M19.90 [facility] [address] [address] Jul, [facility] [id number] [place] [address] Jul, [facility] [address] [address] Jul, [facility] [id number] [place] [address] Jun, [facility] [id number] [place] [address] Jun, [facility] [id number] [place] [address] Jun, Pneumonia of right lower lobe due to infectious organism J18.1 [facility] [id number] [place] [address] Jun, Cough R05 ; Wheeze R06.2 and Pneumonia of right lower lobe due to infectious organism J18.1 [facility] [id number] [place] [address] May, [facility] [id number] [place] [address] May, [facility] [id number] [place] [address] May, Venous insufficiency I87.2 [facility] [id number] [place] [address] May, [facility] [id number] [place] [address] Apr, [facility] [id number] [place] [address] Apr, Cor pulmonale I27.81 [facility] [id number] [place] [address] Apr, Venous insufficiency I87.2 [facility] [id number] [place] [address] Apr, [facility] [id number] [place] [address] Apr, Neuropathy G62.9 and Prediabetes R73.09 [facility] [id number] [place] [address] Apr, [facility] [id number] [place] [address] Apr, [facility] [id number] [place] [address] Apr, [facility] [id number] [place] [address] Apr, Swelling of right lower extremity M79.89 [facility] [id number] [place] [address] Apr, [facility] [id number] [place] [address] Mar, Bronchitis J40 [facility] [id number] [place] [address] Mar, [facility] [id number] [place] [address] Mar, 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 ; Encounter for immunization Z23 and Arthritis M19.90 [facility] [id number] [place] [address] Mar, Arthritis M19.90 and Back pain M54.9 [facility] [id number] [place] [address] Mar, [facility] [id number] [place] [address] Mar, [facility] [id number] [place] [address] Feb, Arthritis M19.90 [facility] [id number] [place] [address] Jan, Arthritis M19.90 [facility] [address] [facility] [id number] [address] Jan, Back pain M54.9 and Arthritis M19.90 [facility] [id number] [place] [address] Jan, [facility] [id number] [place] [address] Jan, Back pain M54.9 [facility] [id number] [place] [address] Jan, Arthritis M19.90 [facility] [id number] [place] [address] Jan, Back pain M54.9 [facility] [id number] [place] [address] Jan, [facility] [id number] [place] [address] Jan, Back pain M54.9 [facility] [id number] [place] [address] Dec, Ingrowing nail with infection L60.0 and Onychomycosis B35.1 [facility] [id number] [place] [address] Dec, Arthritis M19.90 [facility] [id number] [place] [address] Dec, Ingrowing nail L60.0 [facility] [id number] [place] [address] Dec, Back pain M54.9 [facility] [id number] [place] [address] Dec, [facility] [id number] [place] [address] Dec, Back pain M54.9 [facility] [id number] [place] [address] Nov, Arthritis M19.90 [facility] [id number] [place] [address] Nov, [facility] [id number] [place] [address] Nov, Arthritis M19.90 ; Anemia D64.9 ; Restrictive lung disease J98.4 ; Weakness R53.1 and BMI 50.0-59.9, adult Z68.43 [facility] [id number] [place] [address] Nov, Arthritis M19.90 [facility] [id number] [place] [address] Nov, Back pain M54.9 [facility] [id number] [place] [address] October, Back pain M54.9 [facility] [id number] [place] [address] October, Back pain M54.9 [facility] [id number] [place] [address] Sep, Back pain M54.9 [facility] [id number] [place] [address] Sep, Back pain M54.9 [facility] [id number] [place] [address] Sep, [facility] [id number] [place] [address] Sep, [facility] [id number] [place] [address] Sep, Swelling of right lower extremity M79.89 and Cellulitis of right lower extremity L03.115 [facility] [id number] [place] [address] 27 Aug, 2017 Back pain M54.9 [facility] [id number] [place] [address] 15 Aug, 2017 Back pain M54.9 [facility] [id number] [place] [address] 13 Aug, 2017 [facility] [address] [address] Aug, Cellulitis of right lower extremity L03.115 ; Ventral hernia without obstruction or gangrene K43.9 and BMI 50.0-59.9, adult Z68.43 [place] [facility] [address] [address] 28 Jul, 2017 Back pain M54.9 [facility] [id number] [place] [address] 28 Jul, 2017 intermediate 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 tender (current) 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 Z79.891 ; Arthritis M19.90 ; Back pain M54.9 ; Prediabetes R73.09 ; Hypothyroidism E03.9 ; Coronary artery disease involving [place] coronary artery of [place] heart without angina pectoris I25.10 and Anemia D64.9 [facility] [facility] [id number] [place] [address] 27 Jul, 2017 group home (current) 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 Z79.891 ; Back pain M54.9 ; Arthritis M19.90 ; Prediabetes R73.09 ; Hypothyroidism E03.9 ; Coronary artery disease involving [place] coronary artery of [place] heart without angina pectoris I25.10 ; Anemia D64.9 and BMI 45.0-49.9, adult Z68.42 [place] [facility] [id number] [place] [address] 15 Jul, 2017 Back pain M54.9 [facility] [id number] [place] [address] 05 Jul, 2017 Back pain M54.9 [facility] [id number] [place] [address] Jun, Back pain M54.9 [facility] [address] [address] Jun, Back pain M54.9 [facility] [id number] [place] [address] May, Skin cancer of face C44.300 and BMI 45.0-49.9, adult Z68.42 [facility] [id number] [place] [address] May, [facility] [address] [address] May, Back pain M54.9 [facility] [id number] [place] [address] May, Back pain M54.9 [facility] [id number] [place] [address] May, Back pain M54.9 [facility] [address] [address] Apr, Back pain M54.9 [facility] [id number] [place] [address] Apr, Back pain M54.9 [facility] [address] [address] Mar, Back pain M54.9 [facility] [id number] [place] [address] Mar, Anemia D64.9 ; Encounter for immunization Z23 ; Arthritis M19.90 and Right inguinal hernia K40.90 [facility] [id number] [place] [address] Mar, Back pain M54.9 [facility] [address] [address] Feb, Back pain M54.9 [facility] [address] [id number] [address] Feb, Back pain M54.9 [facility] [address] [id number], [place] [address] Jan, Back pain M54.9 [facility] [id number] [place] [address] Jan, Back pain M54.9 [facility] [id number] [place] [address] Jan, [facility] [address] [facility] [id number] [place] [address] Jan, Back pain M54.9 [facility] [address] [facility] [id number] [place] [address] Dec, Back pain M54.9 [facility] [id number] [place] [address] Dec, Back pain M54.9 [facility] [address] [facility] [id number] [place] [address] Dec, [facility] [address] [facility] [id number] [place] [address] Nov, Hypokalemia E87.6 [facility] [address] [facility] [id number] [place] [address] Nov, Back pain M54.9 [facility] [address] [id number] [address] Nov, [facility] [address] [facility] [id number] [place] [address] Nov, Arthritis M19.90 [facility] [address] [facility] [id number], [place] [address] Nov, Back pain M54.9 [facility] [id number] [place] [address] Nov, Generalized edema R60.1 [facility] [address] [address] Nov, Back pain M54.9 [facility] [id number] [place] [address] Nov, Pain in right knee M25.561 [facility] [address] [address] 05 Nov, 2016 Encounter for removal of sutures Z48.02 and Pain in right knee M25.561 [facility] [address] [address] Nov, Abrasion of right foot, subsequent encounter S90.811D [facility] [address] [address] October, Toe abrasion, right, initial encounter S90.414A [place] [id number] [place] [address] October, [place] [address] [address] October, Back pain M54.9 [facility] [id number] [place] [address] October, Venous insufficiency I87.2 [facility] [id number] [place] [address] October, Pain in right knee M25.561 [facility] [id number] [place] [address] Sep, Back pain M54.9 [facility] [id number] [place] [address] Sep, Venous insufficiency I87.2 [facility] [id number] Sep, [facility] [id number] [place] [address] 16 Sep, 2016 Leg edema, right R60.0 and Cellulitis of right lower extremity L03.115 [facility] [id number] [place] [address] 14 Sep, 2016 Pedal edema R60.0 [place] [id number] [place] [address] Sep, 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 ; Pain in right knee M25.561 and Arthritis M19.90 [place] [id number] [place] [address] Aug, Back pain M54.9 [place] [facility] [id number] [place] [address] Aug, Back pain M54.9 [place] [id number] [place] [address] Aug, [place] [id number] [place] [address] Aug, Type 2 diabetes mellitus without complication E11.9 ; Restrictive lung disease J98.4 ; Arthritis M19.90 ; Back pain M54.9 ; Body mass index (BMI) of 45.0-49.9 in adult Z68.42 and Morbid (severe) obesity due to excess calories E66.01 [place] [id number] [place] [address] Aug, Back pain M54.9 [place] [id number] [place] [address] Aug, Back pain M54.9 [place] [id number] [place] [address] Jul, [place] [id number] [place] [address] Jul, Back pain M54.9 [facility] [id number] [place] [address] Jul, Back pain M54.9 [facility] [address] [facility] [id number] [place] [address] Jun, Back pain M54.9 [facility] [id number] [place] [address] Jun, Back pain M54.9 [facility] [id number] [place] [address] May, Back pain M54.9 [facility] [id number] [place] [address] May, Back pain M54.9 [facility] [id number] [place] [address] May, Back pain M54.9 [facility] [id number] [place] [address] May, Back pain M54.9 [facility] [id number] [place] [address] May, [facility] [id number] [place] [address] May, Back pain M54.9 and Pain in right knee M25.561 [facility] [id number] [place] [address] Apr, [facility] [id number] [place] [address] Apr, Type 2 diabetes mellitus without complication E11.9 ; Pain in right knee M25.561 and Pain in left knee M25.562 [facility] [id number] [place] [address] Mar, [facility] [id number] [place] [address] Mar, [facility] [id number] [address] Mar, [facility] [id number] [place] [address] Mar, Restrictive lung disease J98.4 ; Anemia D64.9 and Cor pulmonale I27.81 [facility] [id number] [place] [address] Mar, [facility] [id number] [place] [address] 14 Mar, 2016 [facility] [id number] [place] [address] Mar, [facility] [id number] [place] [address] 30 Feb, 2016 [facility] [id number] [place] [address] 29 Feb, 2016 [facility] [address] [address] 28 Feb, 2016 [facility] [id number] [address] 27 Feb, 2016 Restrictive lung disease J98.4 [facility] [id number] [address] Feb, [facility] [id number] [address] 22 Feb, 2016 [facility] [id number] [address] 16 Feb, 2016 [facility] [address] [address] 24 Jan, 2016 [facility] [address] [address] Jan, [facility] [id number] [address] Jan, [facility] [id number] [place] [address] Jan, [facility] [id number] [place] [address] Jan, Restrictive lung disease J98.4 ; Anemia D64.9 and Cor pulmonale I27.81 [facility] [id number] [place] [address] Dec, [facility] [id number] [place] [address] Dec, [facility] [id number] [place] [address] Nov, Arthritis M19.90 and Hypokalemia E87.6 [facility] [id number] [place] [address] Nov, Back pain M54.9 [facility] [id number] [place] [address] October, Back pain M54.9 [facility] [id number] [place] [address] October, Back pain M54.9 [facility] [id number] [place] [address] Sep, Scabies exposure Z20.89 [facility] [id number] [place] [address] Sep, Restrictive lung disease J98.4 [facility] [id number] [place] [address] Sep, Back pain M54.9 [facility] [id number] [place] [address] Sep, Restrictive lung disease J98.4 [facility] [id number] [address] Aug, [facility] [id number] [place] [address] Aug, [facility] [id number] [place] [phone] Aug, [facility] [id number] [place] [address] Aug, [facility] [id number] [place] [address] Aug, Back pain M54.9 [facility] [id number] [place] [address] Jul, Anemia D64.9 and Prediabetes R73.09 [facility] [id number] [place] [address] Jul, Back pain M54.9 [facility] [id number] [place] [address] Jul, Back pain M54.9 [facility] [id number] [place] [address] Jul, [facility] [id number] [place] [address] Jul, Bronchitis J40 and Anemia D64.9 [facility] [id number] [address] Jun, [facility] [id number] [place] [address] Jun, [facility] [id number] [place] [address] Jun, Bronchitis J40 and Anemia D64.9 [facility] [id number] [address] Jun, [facility] [id number] [place] [address] Jun, Back pain M54.9 [facility] [id number] [place] [address] Jun, Anemia D64.9 [facility] [id number] [place] [address] Jun, Restrictive lung disease J98.4 ; Anemia D64.9 ; Hypothyroidism E03.9 ; Cor pulmonale I27.81 and Back pain M54.9 [facility] [id number] [place] [address] May, [facility] [id number] [place] [address] Apr, Anemia D64.9 ; Encounter for immunization Z23 and Restrictive lung disease J98.4 [facility] [id number] [place] [address] Apr, [facility] [id number] [place] [address] Mar, [facility] [address] [id number] [place] [address] Mar, Iron deficiency anemia D50.9 [facility] [id number] [place] [address] Mar, [facility] [id number] [place] [address] Mar, [facility] [id number] [place] [address] Mar, Anemia D64.9 [facility] [id number] [place] [address] Mar, [facility] [id number] [place] [address] Mar, Anemia D64.9 [facility] [id number] [place] [address] Mar, Restrictive lung disease J98.4 and Anemia D64.9 [facility] [address] [address] Mar, [facility] [id number] [place] [address] Mar, Anemia D64.9 [facility] [address] [address] Mar, Anemia D64.9 [facility] [address] [address] Mar, [facility] [id number] [place] [address] Mar, Diabetes mellitus E11.9 ; Bronchitis J40 and Anemia D64.9 [facility] [address] [address] 30 Feb, 2015 [facility] [id number] [place] [address] Feb, [facility] [id number] [place] [address] Feb, [facility] [id number] [place] [address] Feb, [facility] [id number] [place] [address] Jan, [facility] [id number] [place] [address] Jan, [facility] [id number] [place] [address] Dec, Venous insufficiency 459.81 [facility] [id number] [place] [address] Dec, [facility] [id number] [place] [address] Dec, [facility] [id number] [address] Dec, Coronary atherosclerosis of unspecified type of vessel, [place] or graft 414.00 ; Unspecified anemia 285.9 and Generalized osteoarthrosis, unspecified site 715.00 [facility] [id number] [address] Nov, [facility] [id number] [place] [address] Nov, [facility] [id number] [place] [address] Nov, [facility] [id number] [place] [address] October, [facility] [id number] [place] [address] October, Acute bronchitis 466.0 and Shortness of breath 786.05 [facility] [id number] [address] Sep, [facility] [id number] [place] [address] Sep, [facility] [id number] [address] Aug, [facility] [id number] [place] [address] Aug, [facility] [id number] [address] Jul, [facility] [id number] [address] Jul, [facility] [id number] [address] Jul, [facility] [id number] [place] [address] Jul, [facility] [place] [facility] [address] [id number] [place] [address] Jun, [facility] [place] [facility] [address] [id number] [place] [address] Jun, [facility] [place] [facility] [address] [facility] [id number] [place] [address] Jun, [facility] [place] [facility] [address] [id number] [place] [address] Jun, [facility] [place] [facility] [address] [id number] [place] [address] Jun, [facility] [place] [facility] [address] [id number] [place] [address] Jun, [facility] [place] [facility] [address] [facility] [id number] [place] [address] May, [facility] [place] [facility] [address] [id number] [place] [address] May, [facility] [place] [facility] [address] [facility] [id number] [place] [address] May, [facility] [place] [facility] [address] [facility] [id number] [place] [address] May, [facility] [place] [facility] [address] [id number] [place] [address] Apr, [facility] [place] [facility] [address] [id number] [place] [address] Apr, [facility] [place] [facility] [address] [id number] [place] [address] Apr, [facility] [place] [facility] [address] [id number] [place] [address] Apr, [facility] [place] [facility] [address] [facility] [id number] [place] [address] Apr, [facility] [place] [facility] [address] [id number] [place] [address] Apr, [facility] [place] [facility] [address] [id number] [place] [address] Mar, [facility] [place] [facility] [address] [id number] [place] [address] Mar, [facility] [place] [facility] [address] [id number] [place] [address] Mar, [facility] [place] [facility] [address] [id number] [place] [address] Mar, [facility] [place] [facility] [address] [id number] [place] [address] Mar, [facility] [place] [facility] [address] [id number] [place] [address] Mar, [facility] [place] [facility] [address] [id number] [place] [address] Mar, [facility] [place] [facility] [address] [id number] [place] [address] Mar, [facility] [place] [facility] [address] [id number] [place] [address] Feb, [facility] [place] [facility] [address] [id number] [place] [address] Feb, [facility] [place] [facility] [address] [id number] [place] [address] Jan, [facility] [place] [facility] [address] [id number] [place] [address] Jan, [facility] [place] [facility] [address] [id number] [place] [address] Jan, [facility] [place] [facility] [address] [id number] [place] [address] Jan, [facility] [place] [facility] [address] [id number] [place] [address] Jan, [facility] [place] [facility] [address] [id number] [place] [address] Jan, [facility] [place] [facility] [address] [id number] [place] [address] Dec, [facility] [place] [facility] [address] [id number] [place] [address] Dec, [facility] [place] [facility] [address] [id number] [place] [address] Dec, [facility] [place] [facility] [address] [id number] [place] [address] Dec, [facility] [place] [facility] [address] [id number] [place] [address] Nov, [facility] [place] [facility] [address] [id number] [place] [address] Nov, [facility] [place] [facility] [address] [id number] [place] [address] Nov, [facility] [place] [facility] [address] [id number] [place] [address] Nov, [facility] [place] [facility] [address] [id number] [place] [address] Nov, [facility] [place] [facility] [address] [id number] [place] [address] Nov, [facility] [place] [facility] [address] [id number] [place] [address] Nov, [facility] [place] [facility] [address] [id number] [place] [address] Nov, [facility] [place] [facility] [address] [id number] [place] [address] Nov, [facility] [place] [facility] [address] [id number] [place] [address] Nov, [facility] [place] [facility] [address] [id number] [place] [address] Nov, [facility] [place] [facility] [address] [id number] [place] [address] Nov, [facility] [place] [facility] [address] [id number] [place] [address] October, [facility] [place] [facility] [address] [id number] [place] [address] October, [facility] [place] [facility] [address] [id number] [place] [address] October, [facility] [place] [facility] [address] [id number] [place] [address] October, [facility] [place] [facility] [address] [id number] [place] [address] October, [facility] [place] [facility] [address] [id number] [place] [address] October, [facility] [place] [facility] [address] [id number] [place] [address] October, [facility] [place] [facility] [address] [id number] [place] [address] October, [facility] [place] [facility] [address] [id number] [place] [address] October, [facility] [place] [facility] [address] [id number] [place] [address] Sep, [facility] [place] [facility] [address] [id number] [place] [address] Sep, [facility] [place] [facility] [address] [id number] [place] [address] Sep, [facility] [place] [facility] [address] [id number] [place] [address] Sep, [facility] [place] [facility] [address] [id number] [place] [address] Sep, [facility] [place] [facility] [address] [id number] [place] [address] Sep, [facility] [place] [facility] [address] [id number] [place] [address] Aug, [facility] [place] [facility] [address] [id number] [place] [address] Aug, [facility] [place] [facility] [address] [id number] [place] [address] Aug, [facility] [place] [facility] [address] [id number] [place] [address] Aug, [facility] [place] [facility] [address] [id number] [place] [address] Aug, [facility] [place] [facility] [address] [id number] [place] [address] Aug, [facility] [place] [facility] [address] [id number] [place] [address] Aug, [facility] [place] [facility] [address] [id number] [place] [address] Aug, [facility] [place] [facility] [address] [id number] [place] [address] Aug, [facility] [place] [facility] [address] [id number] [place] [address] Aug, [facility] [place] [facility] [address] [id number] [place] [address] Jul, [facility] [place] [facility] [address] [id number] [place] [address] Jul, [facility] [place] [facility] [address] [id number] [place] [address] Jun, [facility] [place] [facility] [address] [id number] [place] [address] Jun, [facility] [place] [facility] [address] [id number] [place] [address] Jun, [facility] [address] [id number] [place] [address] Jun, [facility] [place] [facility] [address] [id number] [place] [address] Jun, [facility] [place] [facility] [address] [id number] [place] [address] Jun, [facility] [place] [facility] [address] [id number] [place] [address] Jun, [facility] [place] [facility] [address] [id number] [place] [address] Jun, [facility] [place] [facility] [address] [id number] [place] [address] May, [facility] [place] [facility] [address] [id number] [place] [address] May, [facility] [place] [facility] [address] [id number] [place] [address] May, [facility] [place] [facility] [address] [id number] [place] [address] May, [facility] [place] [facility] [address] [id number] [place] [address] May, [facility] [place] [facility] [address] [id number] [place] [address] May, [facility] [place] [facility] [address] [id number] [place] [address] May, [facility] [place] [facility] [address] [id number] [place] [address] May, [facility] [place] [facility] [address] [id number] [place] [address] May, [facility] [place] [facility] [address] [id number] [place] [address] Apr, [facility] [place] [facility] [address] [id number] [place] [address] Apr, 2012 [facility] [place] [facility] [address] [id number] [place] [address] Apr, [facility] [place] [facility] [address] [id number] [place] [address] Apr, [facility] [place] [facility] [address] [id number] [place] [address] Mar, 2012 [facility] [place] [facility] [address] [id number] [place] [address] Mar, 2012 [facility] [place] [facility] [address] [id number] [place] [address] Mar, [facility] [place] [facility] [address] [id number] [place] [address] Mar, [facility] [place] [facility] [address] [id number] [place] [address] Mar, 2012 [facility] [place] [facility] [address] [id number] [place] [address] Mar, [facility] [place] [facility] [address] [id number] [place] [address] Mar, [facility] [place] [facility] [address] [id number] [place] [address] Mar, [facility] [place] [facility] [address] [id number] [place] [address] Mar, [facility] [place] [facility] [address] [id number] [address] Mar, [facility] [place] [facility] [address] [id number] [place] [address] Mar, [facility] [place] [facility] [address] [id number] [place] [address] Mar, [facility] [place] [facility] [address] [id number] [place] [address] Mar, 2012 [facility] [place] [facility] [address] [id number] [place] [address] 18 Mar, 2012 [facility] [place] [facility] [address] [id number] [place] [address] 18 Mar, 2012 [facility] [place] [facility] [address] [id number] [place] [address] 18 Mar, 2012 [facility] [place] [facility] [address] [id number] [place] [address] 17 Mar, 2012 [facility] [place] [facility] [address] [id number] [place] [address] 17 Mar, 2012 [facility] [place] [facility] [address] [id number] [place] [address] 15 Mar, 2012 [facility] [place] [facility] [address] [id number] [place] [address] 15 Mar, 2012 [facility] [place] [facility] [address] [id number], [place] [address] 14 Mar, 2012 [facility] [place] [facility] [address] [id number] [place] [address] 14 Mar, 2012 [facility] [place] [facility] [address] [id number], [place] [address] 14 Mar, 2012 [facility] [place] [facility] [address] [id number], [place] [address] 14 Mar, 2012 [facility] [place] [facility] [address] [id number], [place] [address] 12 Mar, 2012 [facility] [place] [facility] [address] [id number] [place] [address] 11 Mar, 2012 [facility] [place] [facility] [address] [id number] [address] 11 Mar, 2012 [facility] [place] [facility] [address] [id number], [place] [address] 10 Mar, 2012 [facility] [place] [facility] [address] [id number] [place] [address] Mar, [facility] [place] [facility] [address] [id number] [place] [address] Mar, [facility] [place] [facility] [address] [id number] [place] [address] Mar, [facility] [place] [facility] [address] [id number] [place] [address] Mar, [facility] [place] [facility] [address] [id number] [place] [address] Mar, [facility] [place] [facility] [address] [id number] [place] [address] 27 Feb, 2013 [facility] [place] [facility] [address] [id number] [place] [address] Feb, [facility] [place] [facility] [address] [id number] [place] [address] Feb, [facility] [place] [facility] [address] [id number] [place] [address] Feb, [facility] [place] [facility] [address] [id number] [place] [address] Jan, [facility] [place] [facility] [address] [id number] [place] [address] Jan, [facility] [place] [facility] [address] [id number] [place] [address] Jan, [facility] [place] [facility] [address] [id number] [place] [address] Jan, [facility] [place] [facility] [address] [id number] [place] [address] Jan, [facility] [place] [facility] [address] [id number] [place] [address] Jan, [facility] [place] [facility] [address] [id number] [place] [address] Dec, [facility] [place] [facility] [address] [id number] [place] [address] 30 Dec, 2012 [facility] [place] [facility] [address] [id number] [place] [address] Dec, [facility] [place] [facility] [address] [id number] [place] [address] Dec, [facility] [place] [facility] [address] [id number] [place] [address] Dec, [facility] [place] [facility] [address] [id number] [place] [address] Dec, [facility] [place] [facility] [address] [id number] [place] [address] Dec, [facility] [place] [facility] [address] [id number] [place] [address] Dec, [facility] [place] [facility] [address] [id number] [place] [address] Dec, [facility] [address] [id number] [place] [address] Dec, [facility] [place] [facility] [address] [id number] [place] [address] Dec, [facility] [place] [facility] [address] [id number] [place] [address] October, [facility] [place] [facility] [address] [id number] [place] [address] October, [facility] [place] [facility] [address] [id number] [place] [address] October, [facility] [place] [facility] [address] [id number] [place] [address] October, [facility] [place] [facility] [address] [id number] [place] [address] Sep, [facility] [place] [facility] [address] [id number] [place] [address] 30 Sep, 2012 [facility] [id number] [address] Sep, [facility] [id number] [address] Sep, [facility] [id number] [address] Sep, [facility] [id number] [address] Sep, [facility] [id number] [address] Sep, [facility] [id number] [place] [address] Sep, [facility] [id number] [address] Sep, [facility] [id number] [address] Sep, [facility] [id number], [place] [address] Sep, IMMUNIZATIONS No Known Immunizations SOCIAL HISTORY Never Assessed REASON FOR VISIT [facility] PLAN OF CARE VITAL SIGNS MEDICATIONS Unknown [...] problems 09/2015 Hospitalization History Acute dyspnea, muscle cramps--[facility] 03/04/16 Hospitalization History RLE Cellulitis, Hypokalemia, anemia-[facility] 09/29/15 Hospitalization History Lower edema 09/2016 Hospitalization History Received stitches ER 10/2016 Hospitalization History hallucinations/ dimished mental capasity 03/19-03/21/18
--- OUTSIDE RECORDS SUMMARY | 2018-12-04 18:46 | XMS REPORT ---
Author Author Migration, Doctor Organization [facility] Address Unknown Phone Unavailable Care Team Providers Care Work Station Support Specialist Name Role Phone Migration, Doctor Unavailable Unavailable PROBLEMS Type Condition ICD9-CM Code LXZ03-HO Code Onset Dates Condition Status SNOMED Code Problem Restrictive lung disease J98.4 Active 27991942 Problem Cor pulmonale I27.81 Active 76855513 Problem Anemia D64.9 Active 122334998 Problem Prediabetes R73.09 Active 8764339 Problem Arthritis M19.90 Active 7012516 Problem Body mass index (BMI) of 45.0-49.9 in adult Z68.42 Active 629989452 Problem Neuropathy G62.9 Active 629213713 Problem Hypothyroidism E03.9 Active 09063369 Problem Type 2 diabetes mellitus without complication E11.9 Active 124503874 Problem Back pain M54.9 Active 844891173 Problem 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 Active 721749265 Problem Venous insufficiency I87.2 Active 95409702 Problem Coronary artery disease involving shoshone-paiute coronary 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 Active 1583212791801 Problem Obesity hypoventilation syndrome E66.2 Active 083687044 ALLERGIES No Information ENCOUNTERS Encounter Location Date Diagnosis [facility] [address], [place] [address] Aug, [facility] [address], [place] [address] Aug, [facility] [address], [place] [address] Jul, Type 2 diabetes mellitus without complication E11.9 and Arthritis M19.90 [facility] [address], [place] [address] Jul, [facility] [id number] [place] [address] Jul, [facility] [address], [place] [address] Jul, [facility] [id number] [place] [address] Jun, [facility] [id number] [place] [address] Jun, [facility] [id number] [place] [id number] Jun, Pneumonia of right lower lobe due to infectious organism J18.1 [facility] [id number] [place] [address] Jun, Cough R05 ; Wheeze R06.2 and Pneumonia of right lower lobe due to infectious organism J18.1 [facility] [id number] [place] [address] May, [facility] [id number] [place] [address] May, [facility] [id number] [place] [address] May, Venous insufficiency I87.2 [facility] [id number] [place] [address] May, [facility] [id number] [place] [address] Apr, [facility] [id number] [place] [address] Apr, Cor pulmonale I27.81 [facility] [id number] [place] [address] Apr, Venous insufficiency I87.2 [facility] [id number] [place] [address] Apr, [facility] [id number] [place] [address] Apr, Neuropathy G62.9 and Prediabetes R73.09 [facility] [id number] [place] [address] Apr, [facility] [id number] [place] [address] Apr, [facility] [id number] [place] [address] Apr, [facility] [id number] [place] [address] Apr, Swelling of right lower extremity M79.89 [facility] [id number] [place] [address] Apr, [facility] [id number] [place] [address] Mar, Bronchitis J40 [facility] [id number] [place] [address] Mar, [facility] [id number] [place] [address] Mar, 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 ; Encounter for immunization Z23 and Arthritis M19.90 [facility] [id number] [place] [address] Mar, Arthritis M19.90 and Back pain M54.9 [facility] [id number] [place] [address] Mar, [facility] [id number] [place] [address] Mar, [facility] [id number] [place] [address] Feb, Arthritis M19.90 [facility] [id number] [place] [address] Jan, Arthritis M19.90 [facility] [address] [facility] [id number] [address] Jan, Back pain M54.9 and Arthritis M19.90 [facility] [id number] [place] [address] Jan, [facility] [id number] [place] [address] Jan, Back pain M54.9 [facility] [id number] [place] [address] Jan, Arthritis M19.90 [facility] [id number] [place] [address] Jan, Back pain M54.9 [facility] [id number] [place] [address] Jan, [facility] [id number] [place] [address] Jan, Back pain M54.9 [facility] [id number] [place] [address] Dec, Ingrowing nail with infection L60.0 and Onychomycosis B35.1 [facility] [id number] [place] [address] Dec, Arthritis M19.90 [facility] [id number] [place] [address] Dec, Ingrowing nail L60.0 [facility] [id number] [place] [address] Dec, Back pain M54.9 [facility] [id number] [place] [address] Dec, [facility] [id number] [place] [address] Dec, Back pain M54.9 [facility] [id number] [place] [address] Nov, Arthritis M19.90 [facility] [id number] [place] [address] Nov, [facility] [id number] [place] [address] Nov, Arthritis M19.90 ; Anemia D64.9 ; Restrictive lung disease J98.4 ; Weakness R53.1 and BMI 50.0-59.9, adult Z68.43 [facility] [id number] [place] [address] Nov, Arthritis M19.90 [facility] [id number] [place] [address] Nov, Back pain M54.9 [facility] [id number] [place] [address] October, Back pain M54.9 [facility] [id number] [place] [address] October, Back pain M54.9 [facility] [id number] [place] [address] Sep, Back pain M54.9 [facility] [id number] [place] [address] Sep, Back pain M54.9 [facility] [id number] [place] [address] Sep, [facility] [id number] [place] [address] Sep, [facility] [id number] [place] [address] Sep, Swelling of right lower extremity M79.89 and Cellulitis of right lower extremity L03.115 [facility] [id number] [place] [address] 27 Aug, 2017 Back pain M54.9 [facility] [id number] [place] [address] 15 Aug, 2017 Back pain M54.9 [facility] [id number] [place] [address] 13 Aug, 2017 [facility] [address] [address] Aug, Cellulitis of right lower extremity L03.115 ; Ventral hernia without obstruction or gangrene K43.9 and BMI 50.0-59.9, adult Z68.43 [facility] [address] [address] 28 Jul, 2017 Back pain M54.9 [facility] [id number] [place] [address] 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, 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 ; Arthritis M19.90 ; Back pain M54.9 ; Prediabetes R73.09 ; Hypothyroidism E03.9 ; Coronary artery disease involving shosh[place]ai[place] coronary 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 and Anemia D64.9 [facility] [id number] [place] [address] 27 Jul, 2017 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 ; Back pain M54.9 ; Arthritis M19.90 ; Prediabetes R73.09 ; Hypothyroidism E03.9 ; Coronary artery disease involving sh[place]-pai[place] coronary 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 ; Anemia D64.9 and BMI 45.0-49.9, adult Z68.42 [facility] [id number] [place] [address] 15 Jul, 2017 Back pain M54.9 [facility] [id number] [place] [address] 05 Jul, 2017 Back pain M54.9 [facility] [id number] [place] [address] Jun, Back pain M54.9 [facility] [address] [address] Jun, Back pain M54.9 [facility] [id number] [place] [address] May, Skin cancer of face C44.300 and BMI 45.0-49.9, adult Z68.42 [facility] [id number] [place] [id number] May, [facility] [address] [address] May, Back pain M54.9 [facility] [id number] [place] [address] May, Back pain M54.9 [facility] [id number] [place] [address] May, Back pain M54.9 [facility] [address] [address] Apr, Back pain M54.9 [facility] [id number] [place] [address] Apr, Back pain M54.9 [facility] [address] [address] Mar, Back pain M54.9 [facility] [id number] [place] [address] Mar, Anemia D64.9 ; Encounter for immunization Z23 ; Arthritis M19.90 and Right inguinal hernia K40.90 [facility] [id number] [place] [address] Mar, Back pain M54.9 [facility] [address] [address] Feb, Back pain M54.9 [facility] [address] [id number], [place] [address] Feb, Back pain M54.9 [facility] [address] [id number], [place] [address] Jan, Back pain M54.9 [facility] [id number] [place] [phone] Jan, Back pain M54.9 [facility] [id number] [place] [address] Jan, [facility] [address] [facility] [id number] [place] [address] Jan, Back pain M54.9 [facility] [address] [facility] [id number] [place] [address] Dec, Back pain M54.9 [facility] [id number] [place] [address] Dec, Back pain M54.9 [facility] [address] [facility] [id number] [place] [id number] Dec, [facility] [address] [facility] [id number] [place] [address] Nov, Hypokalemia E87.6 [facility] [address] [facility] [id number] [place] [address] Nov, Back pain M54.9 [facility] [address] [id number], [place] [address] Nov, [facility] [address] [facility] [id number] [place] [address] Nov, Arthritis M19.90 [facility] [address] [facility] [id number], [place] [address] Nov, Back pain M54.9 [facility] [id number] [place] [address] Nov, Generalized edema R60.1 [facility] [address] [address] Nov, Back pain M54.9 [facility] [id number] [place] [address] Nov, Pain in right knee M25.561 [facility] [address] [address] 05 Nov, 2016 Encounter for removal of sutures Z48.02 and Pain in right knee M25.561 [facility] [address] [address] Nov, Abrasion of right foot, subsequent encounter S90.811D [facility] [address] [address] October, Toe abrasion, right, initial encounter S90.414A [place] [id number] [place] [address] October, [facility] [address] [address] October, Back pain M54.9 [facility] [id number] [place] [address] October, Venous insufficiency I87.2 [facility] [id number] [place] [address] October, Pain in right knee M25.561 [facility] [id number] [place] [address] Sep, Back pain M54.9 [facility] [id number] [place] [address] Sep, Venous insufficiency I87.2 [facility] [address] [id number] Sep, [facility] [id number] [place] [address] 16 Sep, 2016 Leg edema, right R60.0 and Cellulitis of right lower extremity L03.115 [facility] [id number] [place] [address] 14 Sep, 2016 Pedal edema R60.0 [facility] [id number] [place] [address] Sep, 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 ; Pain in right knee M25.561 and Arthritis M19.90 [facility] [id number] [place] [address] Aug, Back pain M54.9 [facility] [id number] [place] [address] Aug, Back pain M54.9 [facility] [id number] [place] [address] Aug, [facility] [id number] [place] [address] Aug, Type 2 diabetes mellitus without complication E11.9 ; Restrictive lung disease J98.4 ; Arthritis M19.90 ; Back pain M54.9 ; Body mass index (BMI) of 45.0-49.9 in adult Z68.42 and Morbid (severe) obesity due to excess calories E66.01 [facility] [id number] [place] [address] Aug, Back pain M54.9 [facility] [id number] [place] [address] Aug, Back pain M54.9 [facility] [id number] [place] [address] Jul, [facility] [id number] [place] [address] Jul, Back pain M54.9 [facility] [id number] [place] [address] Jul, Back pain M54.9 [facility] [address] [facility] [id number] [place] [address] Jun, Back pain M54.9 [facility] [id number] [place] [address] Jun, Back pain M54.9 [facility] [id number] [place] [address] May, Back pain M54.9 [facility] [id number] [place] [address] May, Back pain M54.9 [facility] [id number] [place] [address] May, Back pain M54.9 [facility] [id number] [place] [address] May, Back pain M54.9 [facility] [id number] [place] [address] May, [facility] [id number] [place] [address] May, Back pain M54.9 and Pain in right knee M25.561 [facility] [id number] [place] [address] Apr, [facility] [id number] [place] [address] Apr, Type 2 diabetes mellitus without complication E11.9 ; Pain in right knee M25.561 and Pain in left knee M25.562 [facility] [id number] [place] [address] Mar, [facility] [id number] [place] [address] Mar, [facility] [id number], [place] [address] Mar, [facility] [id number] [place] [address] Mar, Restrictive lung disease J98.4 ; Anemia D64.9 and Cor pulmonale I27.81 [facility] [id number] [place] [address] Mar, [facility] [id number] [place] [id number] 14 Mar, 2016 [facility] [id number] [place] [address] Mar, [facility] [id number] [place] [id number] 30 Feb, 2016 [facility] [id number] [place] [address] 29 Feb, 2016 [facility] [address], [place] [address] 28 Feb, 2016 [facility] [address], [place] [address] 27 Feb, 2016 Restrictive lung disease J98.4 [facility] [address] [address] Feb, [facility] [id number] [address] 22 Feb, 2016 [facility] [address] [address] 16 Feb, 2016 [facility] [address], [place] [address] 24 Jan, 2016 [facility] [address] [address] Jan, [facility] [id number] [address] Jan, [facility] [id number] [place] [address] Jan, [facility] [id number] [place] [address] Jan, Restrictive lung disease J98.4 ; Anemia D64.9 and Cor pulmonale I27.81 [facility] [id number] [place] [address] Dec, [facility] [id number] [place] [address] Dec, [facility] [id number] [place] [address] Nov, Arthritis M19.90 and Hypokalemia E87.6 [facility] [id number] [place] [address] Nov, Back pain M54.9 [facility] [id number] [place] [address] October, Back pain M54.9 [facility] [id number] [place] [address] October, Back pain M54.9 [facility] [id number] [place] [address] Sep, Scabies exposure Z20.89 [facility] [id number] [place] [address] Sep, Restrictive lung disease J98.4 [facility] [id number] [place] [address] Sep, Back pain M54.9 [facility] [id number] [place] [address] Sep, Restrictive lung disease J98.4 [facility] [address] [id number] [address] Aug, [facility] [id number] [place] [address] Aug, [facility] [id number] [place] [id number] Aug, [facility] [id number] [place] [phone] Aug, [facility] [id number] [place] [phone] Aug, Back pain M54.9 [facility] [id number] [place] [phone] Jul, Anemia D64.9 and Prediabetes R73.09 [facility] [id number] [place] [id number] Jul, Back pain M54.9 [facility] [id number] [place] [phone] Jul, Back pain M54.9 [facility] [id number] [place] [phone] Jul, [facility] [id number] [place] [phone] Jul, Bronchitis J40 and Anemia D64.9 [facility] [id number] [place] [address] Jun, [facility] [id number] [place] [phone] Jun, [facility] [id number] [place] [id number] Jun, Bronchitis J40 and Anemia D64.9 [facility] [id number] [place] [address] Jun, [facility] [id number] [place] [phone] Jun, Back pain M54.9 [facility] [id number] [place] [phone] Jun, Anemia D64.9 [facility] [id number] [place] [id number] Jun, Restrictive lung disease J98.4 ; Anemia D64.9 ; Hypothyroidism E03.9 ; Cor pulmonale I27.81 and Back pain M54.9 [facility] [id number] [place] [phone] May, [facility] [id number] [place] [phone] Apr, Anemia D64.9 ; Encounter for immunization Z23 and Restrictive lung disease J98.4 [facility] [id number] [place] [phone] Apr, [facility] [id number] [place] [phone] Mar, [facility] [id number] [place] [phone] Mar, Iron deficiency anemia D50.9 [facility] [id number] [place] [phone] Mar, [facility] [id number] [place] [id number] Mar, [facility] [address] [id number] [place] [address] Mar, Anemia D64.9 [facility] [id number] [place] [address] Mar, [facility] [id number] [place] [address] Mar, Anemia D64.9 [facility] [id number] [place] [address] Mar, Restrictive lung disease J98.4 and Anemia D64.9 [facility] [address] [address] Mar, [facility] [id number] [place] [address] Mar, Anemia D64.9 [facility] [address] [address] Mar, Anemia D64.9 [facility] [address] [address] Mar, [facility] [id number] [place] [address] Mar, Diabetes mellitus E11.9 ; Bronchitis J40 and Anemia D64.9 [facility] [address] [address] 30 Feb, 2015 [facility] [id number] [place] [address] Feb, [facility] [id number] [place] [address] Feb, [facility] [id number] [place] [address] Feb, [facility] [id number] [place] [address] Jan, [facility] [id number] [place] [address] Jan, [facility] [id number] [place] [address] Dec, Venous insufficiency 459.81 [facility] [id number] [place] [address] Dec, [facility] [id number] [place] [address] Dec, [facility] [address] [address] Dec, Coronary atherosclerosis of unspecified type of vessel, [place] or graft 414.00 ; Unspecified anemia 285.9 and Generalized osteoarthrosis, unspecified site 715.00 [facility] [address] [address] Nov, [facility] [id number] [place] [address] Nov, [facility] [id number] [place] [address] Nov, [facility] [id number] [place] [address] October, [facility] [id number] [place] [address] October, Acute bronchitis 466.0 and Shortness of breath 786.05 [facility] [address] [address] Sep, [facility] [id number] [place] [address] Sep, [facility] [address] [address] Aug, [facility] [id number] [place] [address] Aug, [facility] [address] [address] Jul, [facility] [id number] [address] Jul, [facility] [address] [place] [address] Jul, [facility] [id number] [place] [address] Jul, [facility] [place] [facility] [address] [id number] [place] [address] Jun, [facility] [place] [facility] [address] [id number] [place] [address] Jun, [facility] [place] [facility] [address] [facility] [id number] [place] [address] Jun, [facility] [place] [facility] [address] [id number] [place] [address] Jun, [facility] [place] [facility] [address] [id number] [place] [address] Jun, [facility] [place] [facility] [address] [id number] [place] [address] Jun, [facility] [place] [facility] [address] [facility] [id number] [place] [address] May, [facility] [place] [facility] [address] [id number] [place] [address] May, [facility] [place] [facility] [address] [facility] [id number] [place] [address] May, [facility] [place] [facility] [address] [facility] [id number] [place] [address] May, [facility] [place] [facility] [address] [id number] [place] [address] Apr, [facility] [place] [facility] [address] [id number] [place] [address] Apr, [facility] [place] [facility] [address] [id number] [place] [address] Apr, [facility] [place] [facility] [address] [id number] [place] [address] Apr, [facility] [place] [facility] [address] [facility] [id number] [place] [address] Apr, [facility] [place] [facility] [address] [id number] [place] [address] Apr, [facility] [place] [facility] [address] [id number] [place] [address] Mar, [facility] [place] [facility] [address] [id number] [place] [address] Mar, [facility] [place] [facility] [address] [id number] [place] [address] Mar, [facility] [place] [facility] [address] [id number] [place] [address] Mar, [facility] [place] [facility] [address] [id number] [place] [address] Mar, [facility] [place] [facility] [address] [id number] [place] [address] Mar, [facility] [place] [facility] [address] [id number] [place] [address] Mar, [facility] [place] [facility] [address] [id number] [place] [address] Mar, [facility] [place] [facility] [address] [id number] [place] [address] Feb, [facility] [place] [facility] [address] [id number] [place] [address] Feb, [facility] [place] [facility] [address] [id number] [place] [address] Jan, [facility] [place] [facility] [address] [id number] [place] [address] Jan, [facility] [place] [facility] [address] [id number] [place] [address] Jan, [facility] [place] [facility] [address] [id number] [place] [address] Jan, [facility] [place] [facility] [address] [id number] [place] [address] Jan, [facility] [place] [facility] [address] [id number] [place] [address] Jan, [facility] [place] [facility] [address] [id number] [place] [address] Dec, [facility] [place] [facility] [address] [id number] [place] [address] Dec, [facility] [place] [facility] [address] [id number] [place] [address] Dec, [facility] [place] [facility] [address] [id number] [place] [address] Dec, [facility] [place] [facility] [address] [id number] [place] [address] Nov, [facility] [place] [facility] [address] [id number] [place] [address] Nov, [facility] [place] [facility] [address] [id number] [place] [address] Nov, [facility] [place] [facility] [address] [id number] [place] [address] Nov, [facility] [place] [facility] [address] [id number] [place] [address] Nov, [facility] [place] [facility] [address] [id number] [place] [address] Nov, [facility] [place] [facility] [address] [id number] [place] [address] Nov, [facility] [place] [facility] [address] [id number] [place] [address] Nov, [facility] [place] [facility] [address] [id number] [place] [address] Nov, [facility] [place] [facility] [address] [id number] [place] [address] Nov, [facility] [place] [facility] [address] [id number] [place] [address] Nov, [facility] [place] [facility] [address] [id number] [place] [address] Nov, [facility] [place] [facility] [address] [id number] [place] [address] October, [facility] [place] [facility] [address] [id number] [place] [address] October, [facility] [place] [facility] [address] [id number] [place] [address] October, [facility] [place] [facility] [address] [id number] [place] [address] October, [facility] [place] [facility] [address] [id number] [place] [address] October, [facility] [place] [facility] [address] [id number] [place] [address] October, [facility] [place] [facility] [address] [id number] [place] [address] October, [facility] [place] [facility] [address] [id number] [place] [address] October, [facility] [place] [facility] [address] [id number] [place] [address] October, [facility] [place] [facility] [address] [id number] [place] [address] Sep, [facility] [place] [facility] [address] [id number] [place] [address] Sep, [facility] [place] [facility] [address] [id number] [place] [address] Sep, [facility] [place] [facility] [address] [id number] [place] [address] Sep, [facility] [place] [facility] [address] [id number] [place] [address] Sep, [facility] [place] [facility] [address] [id number] [place] [address] Sep, [facility] [place] [facility] [address] [id number] [place] [address] Aug, [facility] [place] [facility] [address] [id number] [place] [address] Aug, [facility] [place] [facility] [address] [id number] [place] [address] Aug, [facility] [place] [facility] [address] [id number] [place] [address] Aug, [facility] [place] [facility] [address] [id number] [place] [address] Aug, [facility] [place] [facility] [address] [id number] [place] [address] Aug, [facility] [place] [facility] [address] [id number] [place] [address] Aug, [facility] [place] [facility] [address] [id number] [place] [address] Aug, [facility] [place] [facility] [address] [id number] [place] [address] Aug, [facility] [place] [facility] [address] [id number] [place] [address] Aug, [facility] [place] [facility] [address] [id number] [place] [address] Jul, [facility] [place] [facility] [address] [id number] [place] [address] Jul, [facility] [place] [facility] [address] [id number] [place] [address] Jun, [facility] [place] [facility] [address] [id number] [place] [address] Jun, [facility] [place] [facility] [address] [id number] [place] [address] Jun, [facility] [address] [id number] [place] [address] Jun, [facility] [place] [facility] [address] [id number] [place] [address] Jun, [facility] [place] [facility] [address] [id number] [place] [address] Jun, [facility] [place] [facility] [address] [id number] [place] [address] Jun, [facility] [place] [facility] [address] [id number] [place] [address] Jun, [facility] [place] [facility] [address] [id number] [place] [address] May, [facility] [place] [facility] [address] [id number] [place] [address] May, [facility] [place] [facility] [address] [id number] [place] [address] May, [facility] [place] [facility] [address] [id number] [place] [address] May, [facility] [place] [facility] [address] [id number] [place] [address] May, [facility] [place] [facility] [address] [id number] [place] [address] May, [facility] [place] [facility] [address] [id number] [place] [address] May, [facility] [place] [facility] [address] [id number] [place] [address] May, [facility] [place] [facility] [address] [id number] [place] [address] May, [facility] [place] [facility] [address] [id number] [place] [address] Apr, [facility] [place] [facility] [address] [id number] [place] [address] Apr, 2012 [facility] [place] [facility] [address] [id number] [place] [address] Apr, [facility] [place] [facility] [address] [id number] [place] [address] Apr, [facility] [place] [facility] [address] [id number] [place] [address] Mar, 2012 [facility] [place] [facility] [address] [id number] [place] [address] Mar, 2012 [facility] [place] [facility] [address] [id number] [place] [address] Mar, [facility] [place] [facility] [address] [id number] [place] [address] Mar, [facility] [place] [facility] [address] [id number] [place] [address] Mar, 2012 [facility] [place] [facility] [address] [id number] [place] [address] Mar, [facility] [place] [facility] [address] [id number] [place] [address] Mar, [facility] [place] [facility] [address] [id number] [place] [address] Mar, [facility] [place] [facility] [address] [id number] [place] [address] Mar, [facility] [place] [facility] [address] [id number], [place] [address] Mar, [facility] [place] [facility] [address] [id number] [place] [address] Mar, [facility] [place] [facility] [address] [id number] [place] [address] Mar, [facility] [place] [facility] [address] [id number] [place] [address] Mar, 2012 [facility] [place] [facility] [address] [id number] [place] [address] 18 Mar, 2012 [facility] [place] [facility] [address] [id number] [place] [address] 18 Mar, 2012 [facility] [place] [facility] [address] [id number] [place] [address] 18 Mar, 2012 [facility] [place] [facility] [address] [id number] [place] [address] 17 Mar, 2012 [facility] [place] [facility] [address] [id number] [place] [address] 17 Mar, 2012 [facility] [place] [facility] [address] [id number] [place] [address] 15 Mar, 2012 [facility] [place] [facility] [address] [id number] [place] [address] 15 Mar, 2012 [facility] [place] [facility] [address] [id number], [place] [address] 14 Mar, 2012 [facility] [place] [facility] [address] [id number] [place] [address] 14 Mar, 2012 [facility] [place] [facility] [address] [id number], [place] [address] 14 Mar, 2012 [facility] [place] [facility] [address] [id number], [place] [address] 14 Mar, 2012 [facility] [place] [facility] [address] [id number], [place] [address] 12 Mar, 2012 [facility] [place] [facility] [address] [id number] [place] [address] 11 Mar, 2012 [facility] [place] [facility] [address] [id number], [place] [address] 11 Mar, 2012 [facility] [place] [facility] [address] [id number], [place] [address] 10 Mar, 2012 [facility] [place] [facility] [address] [id number] [place] [address] Mar, [facility] [place] [facility] [address] [id number] [place] [address] Mar, [facility] [place] [facility] [address] [id number] [place] [address] Mar, [facility] [place] [facility] [address] [id number] [place] [address] Mar, [facility] [place] [facility] [address] [id number] [place] [address] Mar, [facility] [place] [facility] [address] [id number] [place] [address] 27 Feb, 2013 [facility] [place] [facility] [address] [id number] [place] [address] Feb, [facility] [place] [facility] [address] [id number] [place] [address] Feb, [facility] [place] [facility] [address] [id number] [place] [address] Feb, [facility] [place] [facility] [address] [id number] [place] [address] Jan, [facility] [place] [facility] [address] [id number] [place] [address] Jan, [facility] [place] [facility] [address] [id number] [place] [address] Jan, [facility] [place] [facility] [address] [id number] [place] [address] Jan, [facility] [place] [facility] [address] [id number] [place] [address] Jan, [facility] [place] [facility] [address] [id number] [place] [address] Jan, [facility] [place] [facility] [address] [id number] [place] [address] Dec, [facility] [place] [facility] [address] [id number] [place] [address] 30 Dec, 2012 [facility] [place] [facility] [address] [id number] [place] [address] Dec, [facility] [place] [facility] [address] [id number] [place] [address] Dec, [facility] [place] [facility] [address] [id number] [place] [address] Dec, [facility] [place] [facility] [address] [id number] [place] [address] Dec, [facility] [place] [facility] [address] [id number] [place] [address] Dec, [facility] [place] [facility] [address] [id number] [place] [address] Dec, [facility] [place] [facility] [address] [id number] [place] [address] Dec, [facility] [address] [id number] [place] [address] Dec, [facility] [place] [facility] [address] [id number] [place] [address] Dec, [facility] [place] [facility] [address] [id number] [place] [address] October, [facility] [place] [facility] [address] [id number] [place] [address] October, [facility] [place] [facility] [address] [id number] [place] [address] October, [facility] [place] [facility] [address] [id number] [place] [address] October, [facility] [place] [facility] [address] [id number] [place] [address] Sep, [facility] [place] [facility] [address] [id number] [place] [address] 30 Sep, 2012 [facility] [address] [id number] [address] Sep, [facility] [id number], [place] [address] Sep, [facility] [address] [id number], [place] [address] Sep, [facility] [id number], [place] [address] Sep, [facility] [id number], [place] [address] Sep, [facility] [id number] [place] [id number] Sep, [facility] [id number], [place] [address] Sep, [facility] [id number] [place] [address] Sep, [facility] [address] [id number] [address] Sep, IMMUNIZATIONS No Known Immunizations SOCIAL HISTORY Never Assessed REASON FOR VISIT [facility] [place] PLAN OF CARE VITAL SIGNS MEDICATIONS Unknown [...] problems 09/2015 Hospitalization History Acute dyspnea, muscle cramps--[facility] 03/04/16 Hospitalization History RLE Cellulitis, Hypokalemia, anemia-[facility] 09/29/15 Hospitalization History Lower edema 09/2016 Hospitalization History Received stitches ER 10/2016 Hospitalization History hallucinations/ dimished mental capasity 03/19-03/21/18
--- OUTSIDE RECORDS SUMMARY | 2018-12-04 18:47 | XMS REPORT ---
Author Author Migration, Doctor Organization [facility] Address Unknown Phone Unavailable Care Team Providers Care Air Twister Winder Name Role Phone Migration, Doctor Unavailable Unavailable PROBLEMS Type Condition ICD9-CM Code XPI26-XA Code Onset Dates Condition Status SNOMED Code Problem Restrictive lung disease J98.4 Active 44004525 Problem Cor pulmonale I27.81 Active 27860244 Problem Anemia D64.9 Active 842904087 Problem Prediabetes R73.09 Active 7265100 Problem Arthritis M19.90 Active 1447276 Problem Body mass index (BMI) of 45.0-49.9 in adult Z68.42 Active 523716576 Problem Neuropathy G62.9 Active 185644523 Problem Hypothyroidism E03.9 Active 24417872 Problem Type 2 diabetes mellitus without complication E11.9 Active 494118175 Problem Back pain M54.9 Active 149427943 Problem 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 Active 195286490 Problem Venous insufficiency I87.2 Active 17449955 Problem Coronary artery disease involving pa[place]shoshone coronary artery of pai[place]shoshone heart without angina pectoris I25.10 Active 0298957148938 Problem Obesity hypoventilation syndrome E66.2 Active 525397707 ALLERGIES No Information ENCOUNTERS Encounter Location Date Diagnosis [facility] [address] [address] Aug, [facility] [address], [place] [address] Aug, [facility] [address], [place] [address] Jul, Type 2 diabetes mellitus without complication E11.9 and Arthritis M19.90 [facility] [address], [place] [address] Jul, [facility] [id number] [place] [address] Jul, [facility] [address], [place] [address] Jul, [facility] [id number] [place] [address] Jun, [facility] [id number] [place] [address] Jun, [facility] [id number] [place] [address] Jun, Pneumonia of right lower lobe due to infectious organism J18.1 [facility] [id number] [place] [address] Jun, Cough R05 ; Wheeze R06.2 and Pneumonia of right lower lobe due to infectious organism J18.1 [facility] [id number] [place] [address] May, [facility] [id number] [place] [address] May, [facility] [id number] [place] [address] May, Venous insufficiency I87.2 [facility] [id number] [place] [address] May, [facility] [id number] [place] [address] Apr, [facility] [id number] [place] [address] Apr, Cor pulmonale I27.81 [facility] [id number] [place] [address] Apr, Venous insufficiency I87.2 [facility] [id number] [place] [address] Apr, [facility] [id number] [place] [address] Apr, Neuropathy G62.9 and Prediabetes R73.09 [facility] [id number] [place] [address] Apr, [facility] [id number] [place] [address] Apr, [facility] [id number] [place] [address] Apr, [facility] [id number] [place] [address] Apr, Swelling of right lower extremity M79.89 [facility] [id number] [place] [address] Apr, [facility] [id number] [place] [address] Mar, Bronchitis J40 [facility] [id number] [place] [address] Mar, [facility] [id number] [place] [address] Mar, 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 ; Encounter for immunization Z23 and Arthritis M19.90 [facility] [id number] [place] [address] Mar, Arthritis M19.90 and Back pain M54.9 [facility] [id number] [place] [address] Mar, [facility] [id number] [place] [address] Mar, [facility] [id number] [place] [address] Feb, Arthritis M19.90 [facility] [id number] [place] [address] Jan, Arthritis M19.90 [facility] [address] [facility] [id number] [address] Jan, Back pain M54.9 and Arthritis M19.90 [facility] [id number] [place] [address] Jan, [facility] [id number] [place] [address] Jan, Back pain M54.9 [facility] [id number] [place] [address] Jan, Arthritis M19.90 [facility] [id number] [place] [address] Jan, Back pain M54.9 [facility] [id number] [place] [address] Jan, [facility] [id number] [place] [address] Jan, Back pain M54.9 [facility] [id number] [place] [address] Dec, Ingrowing nail with infection L60.0 and Onychomycosis B35.1 [facility] [id number] [place] [address] Dec, Arthritis M19.90 [facility] [id number] [place] [address] Dec, Ingrowing nail L60.0 [facility] [id number] [place] [address] Dec, Back pain M54.[address] [facility] [id number] [place] [address] Dec, [facility] [id number] [place] [address] Dec, Back pain M54.9 [facility] [id number] [place] [address] Nov, Arthritis M19.90 [facility] [id number] [place] [address] Nov, [facility] [id number] [place] [address] Nov, Arthritis M19.90 ; Anemia D64.9 ; Restrictive lung disease J98.4 ; Weakness R53.1 and BMI 50.0-59.9, adult Z68.43 [facility] [id number] [place] [address] Nov, Arthritis M19.90 [facility] [id number] [place] [address] Nov, Back pain M54.9 [facility] [id number] [place] [address] October, Back pain M54.9 [facility] [id number] [place] [address] October, Back pain M54.9 [facility] [id number] [place] [address] Sep, Back pain M54.9 [facility] [id number] [place] [address] Sep, Back pain M54.9 [facility] [id number] [place] [address] Sep, [facility] [id number] [place] [address] Sep, [facility] [id number] [place] [address] Sep, Swelling of right lower extremity M79.89 and Cellulitis of right lower extremity L03.115 [facility] [id number] [place] [address] 27 Aug, 2017 Back pain M54.9 [facility] [id number] [place] [address] 15 Aug, 2017 Back pain M54.9 [facility] [id number] [place] [address] 13 Aug, 2017 [facility] [address] [address] Aug, Cellulitis of right lower extremity L03.115 ; Ventral hernia without obstruction or gangrene K43.9 and BMI 50.0-59.9, adult Z68.43 [place] [address] [address] 28 Jul, 2017 Back pain M54.9 [facility] [id number] [place] [address] 28 Jul, 2017 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 ; Arthritis M19.90 ; Back pain M54.9 ; Prediabetes R73.09 ; Hypothyroidism E03.9 ; Coronary artery disease involving [place] coronary artery of pa[place] heart without angina pectoris I25.10 and Anemia D64.9 [place] [id number] [place] [address] 27 Jul, 2017 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 Z79.891 ; Back pain M54.9 ; Arthritis M19.90 ; Prediabetes R73.09 ; Hypothyroidism E03.9 ; Coronary artery disease involving [place] coronary artery of pa[place]shosh[place] heart without angina pectoris I25.10 ; Anemia D64.9 and BMI 45.0-49.9, adult Z68.42 [place] [id number] [place] [address] 15 Jul, 2017 Back pain M54.9 [facility] [id number] [place] [address] 05 Jul, 2017 Back pain M54.9 [facility] [id number] [place] [address] Jun, Back pain M54.9 [facility] [address] [address] Jun, Back pain M54.9 [facility] [id number] [place] [address] May, Skin cancer of face C44.300 and BMI 45.0-49.9, adult Z68.42 [facility] [id number] [place] [address] May, [facility] [address] [address] May, Back pain M54.9 [facility] [id number] [place] [address] May, Back pain M54.9 [facility] [id number] [place] [address] May, Back pain M54.9 [facility] [address] [address] Apr, Back pain M54.9 [facility] [id number] [place] [address] Apr, Back pain M54.9 [facility] [address] [address] Mar, Back pain M54.9 [facility] [id number] [place] [address] Mar, Anemia D64.9 ; Encounter for immunization Z23 ; Arthritis M19.90 and Right inguinal hernia K40.90 [facility] [id number] [place] [address] Mar, Back pain M54.9 [facility] [address] [address] Feb, Back pain M54.9 [facility] [address] [id number] [address] Feb, Back pain M54.9 [facility] [address] [id number], [place] [address] Jan, Back pain M54.9 [facility] [id number] [place] [address] Jan, Back pain M54.9 [facility] [id number] [place] [address] Jan, [facility] [address] [facility] [id number] [place] [address] Jan, Back pain M54.9 [facility] [address] [facility] [id number] [place] [address] Dec, Back pain M54.9 [facility] [id number] [place] [address] Dec, Back pain M54.9 [facility] [address] [facility] [id number] [place] [address] Dec, [facility] [address] [facility] [id number] [place] [address] Nov, Hypokalemia E87.6 [facility] [address] [facility] [id number] [place] [address] Nov, Back pain M54.9 [facility] [address] [id number], [place] [address] Nov, [facility] [address] [facility] [id number] [place] [address] Nov, Arthritis M19.90 [facility] [address] [facility] [id number], [place] [address] Nov, Back pain M54.9 [facility] [id number] [place] [address] Nov, Generalized edema R60.1 [facility] [address] [address] Nov, Back pain M54.9 [facility] [id number] [place] [address] Nov, Pain in right knee M25.561 [facility] [address] [address] 05 Nov, 2016 Encounter for removal of sutures Z48.02 and Pain in right knee M25.561 [facility] [address] [address] Nov, Abrasion of right foot, subsequent encounter S90.811D [facility] [address] [address] October, Toe abrasion, right, initial encounter S90.414A [place] [id number] [place] [address] October, [place] [address] [address] October, Back pain M54.9 [facility] [id number] [place] [address] October, Venous insufficiency I87.2 [facility] [id number] [place] [address] October, Pain in right knee M25.561 [facility] [id number] [place] [address] Sep, Back pain M54.9 [facility] [id number] [place] [address] Sep, Venous insufficiency I87.2 [facility] [address] [id number] Sep, [facility] [id number] [place] [address] 16 Sep, 2016 Leg edema, right R60.0 and Cellulitis of right lower extremity L03.115 [facility] [id number] [place] [address] 14 Sep, 2016 Pedal edema R60.0 [place] [id number] [place] [address] Sep, 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 ; Pain in right knee M25.561 and Arthritis M19.90 [place] [id number] [place] [address] Aug, Back pain M54.9 [place] [id number] [place] [address] Aug, Back pain M54.9 [place] [id number] [place] [address] Aug, [place] [id number] [place] [address] Aug, Type 2 diabetes mellitus without complication E11.9 ; Restrictive lung disease J98.4 ; Arthritis M19.90 ; Back pain M54.9 ; Body mass index (BMI) of 45.0-49.9 in adult Z68.42 and Morbid (severe) obesity due to excess calories E66.01 [place] [id number] [place] [address] Aug, Back pain M54.9 [place] [id number] [place] [address] Aug, Back pain M54.9 [place] [id number] [place] [address] Jul, [place] [id number] [place] [address] Jul, Back pain M54.9 [facility] [id number] [place] [address] Jul, Back pain M54.9 [facility] [address] [facility] [id number] [place] [address] Jun, Back pain M54.9 [facility] [id number] [place] [address] Jun, Back pain M54.9 [facility] [id number] [place] [address] May, Back pain M54.9 [facility] [id number] [place] [address] May, Back pain M54.9 [facility] [id number] [place] [address] May, Back pain M54.9 [facility] [id number] [place] [address] May, Back pain M54.9 [facility] [id number] [place] [address] May, [facility] [id number] [place] [address] May, Back pain M54.9 and Pain in right knee M25.561 [facility] [id number] [place] [address] Apr, [facility] [id number] [place] [address] Apr, Type 2 diabetes mellitus without complication E11.9 ; Pain in right knee M25.561 and Pain in left knee M25.562 [facility] [id number] [place] [address] Mar, [facility] [id number] [place] [address] Mar, [facility] [id number] [address] Mar, [facility] [id number] [place] [address] Mar, Restrictive lung disease J98.4 ; Anemia D64.9 and Cor pulmonale I27.81 [facility] [id number] [place] [address] Mar, [facility] [id number] [place] [address] 14 Mar, 2016 [facility] [id number] [place] [address] Mar, [facility] [id number] [place] [address] 30 Feb, 2016 [facility] [id number] [place] [address] 29 Feb, 2016 [facility] [address] [address] 28 Feb, 2016 [facility] [address], [place] [address] 27 Feb, 2016 Restrictive lung disease J98.4 [facility] [address], [place] [address] Feb, [facility] [id number] [address] 22 Feb, 2016 [facility] [address], [place] [address] 16 Feb, 2016 [facility] [address] [address] 24 Jan, 2016 [facility] [address], [place] [address] Jan, [facility] [id number] [address] Jan, [facility] [id number] [place] [address] Jan, [facility] [id number] [place] [address] Jan, Restrictive lung disease J98.4 ; Anemia D64.9 and Cor pulmonale I27.81 [facility] [id number] [place] [address] Dec, [facility] [id number] [place] [address] Dec, [facility] [id number] [place] [address] Nov, Arthritis M19.90 and Hypokalemia E87.6 [facility] [id number] [place] [address] Nov, Back pain M54.9 [facility] [id number] [place] [address] October, Back pain M54.9 [facility] [id number] [place] [address] October, Back pain M54.9 [facility] [id number] [place] [address] Sep, Scabies exposure Z20.89 [facility] [id number] [place] [address] Sep, Restrictive lung disease J98.4 [facility] [id number] [place] [address] Sep, Back pain M54.9 [facility] [id number] [place] [id number] Sep, Restrictive lung disease J98.4 [facility] [id number] [address] Aug, [facility] [id number] [place] [phone] Aug, [facility] [id number] [place] [phone] Aug, [facility] [id number] [place] [phone] Aug, [facility] [id number] [place] [phone] Aug, Back pain M54.9 [facility] [id number] [place] [id number] Jul, Anemia D64.9 and Prediabetes R73.09 [facility] [id number] [place] [id number] Jul, Back pain M54.9 [facility] [id number] [place] [id number] Jul, Back pain M54.9 [facility] [id number] [place] [id number] Jul, [facility] [id number] [place] [id number] Jul, Bronchitis J40 and Anemia D64.9 [facility] [address] [address] Jun, [facility] [id number] [place] [id number] Jun, [facility] [id number] [place] [phone] Jun, Bronchitis J40 and Anemia D64.9 [facility] [address] [address] Jun, [facility] [id number] [place] [phone] Jun, Back pain M54.9 [facility] [id number] [place] [phone] Jun, Anemia D64.9 [facility] [id number] [place] [id number] Jun, Restrictive lung disease J98.4 ; Anemia D64.9 ; Hypothyroidism E03.9 ; Cor pulmonale I27.81 and Back pain M54.9 [facility] [id number] [place] [phone] May, [facility] [id number] [place] [address] Apr, Anemia D64.9 ; Encounter for immunization Z23 and Restrictive lung disease J98.4 [facility] [id number] [place] [address] Apr, [facility] [id number] [place] [address] Mar, [facility] [id number] [place] [address] Mar, Iron deficiency anemia D50.9 [facility] [id number] [place] [address] Mar, [facility] [id number] [place] [address] Mar, [facility] [id number] [place] [address] Mar, Anemia D64.9 [facility] [id number] [place] [address] Mar, [facility] [id number] [place] [address] Mar, Anemia D64.9 [facility] [id number] [place] [address] Mar, Restrictive lung disease J98.4 and Anemia D64.9 [facility] [address] [address] Mar, [facility] [id number] [place] [address] Mar, Anemia D64.9 [facility] [address] [address] Mar, Anemia D64.9 [facility] [address] [address] Mar, [facility] [id number] [place] [address] Mar, Diabetes mellitus E11.9 ; Bronchitis J40 and Anemia D64.9 [facility] [address] [address] 30 Feb, 2015 [facility] [id number] [place] [address] Feb, [facility] [id number] [place] [address] Feb, [facility] [id number] [place] [address] Feb, [facility] [id number] [place] [address] Jan, [facility] [id number] [place] [address] Jan, [facility] [id number] [place] [address] Dec, Venous insufficiency 459.81 [facility] [id number] [place] [address] Dec, [facility] [id number] [place] [address] Dec, [facility] [address] [address] Dec, Coronary atherosclerosis of unspecified type of vessel, [place] or graft 414.00 ; Unspecified anemia 285.9 and Generalized osteoarthrosis, unspecified site 715.00 [facility] [address] [address] Nov, [facility] [id number] [place] [address] Nov, [facility] [id number] [place] [address] Nov, [facility] [id number] [place] [address] October, [facility] [id number] [place] [address] October, Acute bronchitis 466.0 and Shortness of breath 786.05 [facility] [address] [address] Sep, [facility] [id number] [place] [address] Sep, [facility] [address] [address] Aug, [facility] [id number] [place] [address] Aug, [facility] [address] [address] Jul, [facility] [id number] [address] Jul, [facility] [address] [address] Jul, [facility] [id number] [place] [address] Jul, [facility] [place] [facility] [address] [id number] [place] [address] Jun, [facility] [place] [facility] [address] [id number] [place] [address] Jun, [facility] [place] [facility] [address] [facility] [id number] [place] [address] Jun, [facility] [place] [facility] [address] [id number] [place] [address] Jun, [facility] [place] [facility] [address] [id number] [place] [address] Jun, [facility] [place] [facility] [address] [id number] [place] [address] Jun, [facility] [place] [facility] [address] [facility] [id number] [place] [address] May, [facility] [place] [facility] [address] [id number] [place] [address] May, [facility] [place] [facility] [address] [facility] [id number] [place] [address] May, [facility] [place] [facility] [address] [facility] [id number] [place] [address] May, [facility] [place] [facility] [address] [id number] [place] [address] Apr, [facility] [place] [facility] [address] [id number] [place] [address] Apr, [facility] [place] [facility] [address] [id number] [place] [address] Apr, [facility] [place] [facility] [address] [id number] [place] [address] Apr, [facility] [place] [facility] [address] [facility] [id number] [place] [address] Apr, [facility] [place] [facility] [address] [id number] [place] [address] Apr, [facility] [place] [facility] [address] [id number] [place] [address] Mar, [facility] [place] [facility] [address] [id number] [place] [address] Mar, [facility] [place] [facility] [address] [id number] [place] [address] Mar, [facility] [place] [facility] [address] [id number] [place] [address] Mar, [facility] [place] [facility] [address] [id number] [place] [address] Mar, [facility] [place] [facility] [address] [id number] [place] [address] Mar, [facility] [place] [facility] [address] [id number] [place] [address] Mar, [facility] [place] [facility] [address] [id number] [place] [address] Mar, [facility] [place] [facility] [address] [id number] [place] [address] Feb, [facility] [place] [facility] [address] [id number] [place] [address] Feb, [facility] [place] [facility] [address] [id number] [place] [address] Jan, [facility] [place] [facility] [address] [id number] [place] [address] Jan, [facility] [place] [facility] [address] [id number] [place] [address] Jan, [facility] [place] [facility] [address] [id number] [place] [address] Jan, [facility] [place] [facility] [address] [id number] [place] [address] Jan, [facility] [place] [facility] [address] [id number] [place] [address] Jan, [facility] [place] [facility] [address] [id number] [place] [address] Dec, [facility] [place] [facility] [address] [id number] [place] [address] Dec, [facility] [place] [facility] [address] [id number] [place] [address] Dec, [facility] [place] [facility] [address] [id number] [place] [address] Dec, [facility] [place] [facility] [address] [id number] [place] [address] Nov, [facility] [place] [facility] [address] [id number] [place] [address] Nov, [facility] [place] [facility] [address] [id number] [place] [address] Nov, [facility] [place] [facility] [address] [id number] [place] [address] Nov, [facility] [place] [facility] [address] [id number] [place] [address] Nov, [facility] [place] [facility] [address] [id number] [place] [address] Nov, [facility] [place] [facility] [address] [id number] [place] [address] Nov, [facility] [place] [facility] [address] [id number] [place] [address] Nov, [facility] [place] [facility] [address] [id number] [place] [address] Nov, [facility] [place] [facility] [address] [id number] [place] [address] Nov, [facility] [place] [facility] [address] [id number] [place] [address] Nov, [facility] [place] [facility] [address] [id number] [place] [address] Nov, [facility] [place] [facility] [address] [id number] [place] [address] October, [facility] [place] [facility] [address] [id number] [place] [address] October, [facility] [place] [facility] [address] [id number] [place] [address] October, [facility] [place] [facility] [address] [id number] [place] [address] October, [facility] [place] [facility] [address] [id number] [place] [address] October, [facility] [place] [facility] [address] [id number] [place] [address] October, [facility] [place] [facility] [address] [id number] [place] [address] October, [facility] [place] [facility] [address] [id number] [place] [address] October, [facility] [place] [facility] [address] [id number] [place] [address] October, [facility] [place] [facility] [address] [id number] [place] [address] Sep, [facility] [place] [facility] [address] [id number] [place] [address] Sep, [facility] [place] [facility] [address] [id number] [place] [address] Sep, [facility] [place] [facility] [address] [id number] [place] [address] Sep, [facility] [place] [facility] [address] [id number] [place] [address] Sep, [facility] [place] [facility] [address] [id number] [place] [address] Sep, [facility] [place] [facility] [address] [id number] [place] [address] Aug, [facility] [place] [facility] [address] [id number] [place] [address] Aug, [facility] [place] [facility] [address] [id number] [place] [address] Aug, [facility] [place] [facility] [address] [id number] [place] [address] Aug, [facility] [place] [facility] [address] [id number] [place] [address] Aug, [facility] [place] [facility] [address] [id number] [place] [address] Aug, [facility] [place] [facility] [address] [id number] [place] [address] Aug, [facility] [place] [facility] [address] [id number] [place] [address] Aug, [facility] [place] [facility] [address] [id number] [place] [address] Aug, [facility] [place] [facility] [address] [id number] [place] [address] Aug, [facility] [place] [facility] [address] [id number] [place] [address] Jul, [facility] [place] [facility] [address] [id number] [place] [address] Jul, [facility] [place] [facility] [address] [id number] [place] [address] Jun, [facility] [place] [facility] [address] [id number] [place] [address] Jun, [facility] [place] [facility] [address] [id number] [place] [address] Jun, [facility] [address] [id number] [place] [address] Jun, [facility] [place] [facility] [address] [id number] [place] [address] Jun, [facility] [place] [facility] [address] [id number] [place] [address] Jun, [facility] [place] [facility] [address] [id number] [place] [address] Jun, [facility] [place] [facility] [address] [id number] [place] [address] Jun, [facility] [place] [facility] [address] [id number] [place] [address] May, [facility] [place] [facility] [address] [id number] [place] [address] May, [facility] [place] [facility] [address] [id number] [place] [address] May, [facility] [place] [facility] [address] [id number] [place] [address] May, [facility] [place] [facility] [address] [id number] [place] [address] May, [facility] [place] [facility] [address] [id number] [place] [address] May, [facility] [place] [facility] [address] [id number] [place] [address] May, [facility] [place] [facility] [address] [id number] [place] [address] May, [facility] [place] [facility] [address] [id number] [place] [address] May, [facility] [place] [facility] [address] [id number] [place] [address] Apr, [facility] [place] [facility] [address] [id number] [place] [address] Apr, 2012 [facility] [place] [facility] [address] [id number] [place] [address] Apr, [facility] [place] [facility] [address] [id number] [place] [address] Apr, [facility] [place] [facility] [address] [id number] [place] [address] Mar, 2012 [facility] [place] [facility] [address] [id number] [place] [address] Mar, 2012 [facility] [place] [facility] [address] [id number] [place] [address] Mar, [facility] [place] [facility] [address] [id number] [place] [address] Mar, [facility] [place] [facility] [address] [id number] [place] [address] Mar, 2012 [facility] [place] [facility] [address] [id number] [place] [address] Mar, [facility] [place] [facility] [address] [id number] [place] [address] Mar, [facility] [place] [facility] [address] [id number] [place] [address] Mar, [facility] [place] [facility] [address] [id number] [place] [address] Mar, [facility] [place] [facility] [address] [id number], [place] [address] Mar, [facility] [place] [facility] [address] [id number] [place] [address] Mar, [facility] [place] [facility] [address] [id number] [place] [address] Mar, [facility] [place] [facility] [address] [id number] [place] [address] Mar, 2012 [facility] [place] [facility] [address] [id number] [place] [address] 18 Mar, 2012 [facility] [place] [facility] [address] [id number] [place] [address] 18 Mar, 2012 [facility] [place] [facility] [address] [id number] [place] [address] 18 Mar, 2012 [facility] [place] [facility] [address] [id number] [place] [address] 17 Mar, 2012 [facility] [place] [facility] [address] [id number] [place] [address] 17 Mar, 2012 [facility] [place] [facility] [address] [id number] [place] [address] 15 Mar, 2012 [facility] [place] [facility] [address] [id number] [place] [address] 15 Mar, 2012 [facility] [place] [facility] [address] [id number], [place] [address] 14 Mar, 2012 [facility] [place] [facility] [address] [id number] [place] [address] 14 Mar, 2012 [facility] [place] [facility] [address] [id number], [place] [address] 14 Mar, 2012 [facility] [place] [facility] [address] [id number], [place] [address] 14 Mar, 2012 [facility] [place] [facility] [address] [id number], [place] [address] 12 Mar, 2012 [facility] [place] [facility] [address] [id number] [place] [address] 11 Mar, 2012 [facility] [place] [facility] [address] [id number], [place] [address] 11 Mar, 2012 [facility] [place] [facility] [address] [id number], [place] [address] 10 Mar, 2012 [facility] [place] [facility] [address] [id number] [place] [address] Mar, [facility] [place] [facility] [address] [id number] [place] [address] Mar, [facility] [place] [facility] [address] [id number] [place] [address] Mar, [facility] [place] [facility] [address] [id number] [place] [address] Mar, [facility] [place] [facility] [address] [id number] [place] [address] Mar, [facility] [place] [facility] [address] [id number] [place] [address] 27 Feb, 2013 [facility] [place] [facility] [address] [id number] [place] [address] Feb, [facility] [place] [facility] [address] [id number] [place] [address] Feb, [facility] [place] [facility] [address] [id number] [place] [address] Feb, [facility] [place] [facility] [address] [id number] [place] [address] Jan, [facility] [place] [facility] [address] [id number] [place] [address] Jan, [facility] [place] [facility] [address] [id number] [place] [address] Jan, [facility] [place] [facility] [address] [id number] [place] [address] Jan, [facility] [place] [facility] [address] [id number] [place] [address] Jan, [facility] [place] [facility] [address] [id number] [place] [address] Jan, [facility] [place] [facility] [address] [id number] [place] [address] Dec, [facility] [place] [facility] [address] [id number] [place] [address] 30 Dec, 2012 [facility] [place] [facility] [address] [id number] [place] [address] Dec, [facility] [place] [facility] [address] [id number] [place] [address] Dec, [facility] [place] [facility] [address] [id number] [place] [address] Dec, [facility] [place] [facility] [address] [id number] [place] [address] Dec, [facility] [place] [facility] [address] [id number] [place] [address] Dec, [facility] [place] [facility] [address] [id number] [place] [address] Dec, [facility] [place] [facility] [address] [id number] [place] [address] Dec, [facility] [address] [id number] [place] [address] Dec, [facility] [place] [facility] [address] [id number] [place] [address] Dec, [facility] [place] [facility] [address] [id number] [place] [address] October, [facility] [place] [facility] [address] [id number] [place] [address] October, [facility] [place] [facility] [address] [id number] [place] [address] October, [facility] [place] [facility] [address] [id number] [place] [address] October, [facility] [place] [facility] [address] [id number] [place] [address] Sep, [facility] [place] [facility] [address] [id number] [place] [address] 30 Sep, 2012 [facility] [address] [id number] [address] Sep, [facility] [id number] [address] Sep, [facility] [address] [id number] [address] Sep, [facility] [id number], [place] [address] Sep, [facility] [id number], [place] [address] Sep, [facility] [id number] [place] [address] Sep, [facility] [id number], [place] [address] Sep, [facility] [id number] [place] [address] Sep, [facility] [address] [id number] [address] Sep, IMMUNIZATIONS No Known Immunizations SOCIAL HISTORY Never Assessed REASON FOR VISIT [facility] [place] PLAN OF CARE [...] Hospitalization History Acute dyspnea, muscle cramps--[facility] 03/04/16 Hospitalization History RLE Cellulitis, Hypokalemia, anemia-[facility] 09/29/15 Hospitalization History Lower edema 09/2016 Hospitalization History Received stitches ER 10/2016 Hospitalization History hallucinations/ dimished mental capasity 03/19-03/21/18
--- OUTSIDE RECORDS SUMMARY | 2018-12-04 18:48 | XMS REPORT ---
Author Author Migration, Doctor Organization [facility] Address Unknown Phone Unavailable Care Team Providers Care Algebra Tutor Name Role Phone Migration, Doctor Unavailable Unavailable PROBLEMS Type Condition ICD9-CM Code [id number] Code Onset Dates Condition Status SNOMED Code Problem Restrictive lung disease J98.4 Active 21953975 Problem Cor pulmonale I27.81 Active 44449578 Problem Anemia D64.9 Active 019613866 Problem Prediabetes R73.09 Active 7199585 Problem Arthritis M19.90 Active 1800709 Problem Body mass index (BMI) of 45.0-49.9 in adult Z68.42 Active 676275455 Problem Neuropathy G62.9 Active 194354724 Problem Hypothyroidism E03.9 Active 24589686 Problem Type 2 diabetes mellitus without complication E11.9 Active 061751863 Problem Back pain M54.9 Active 342711805 Problem 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 Active 643969151 Problem Venous insufficiency I87.2 Active 14251857 Problem Coronary artery disease involving [place] coronary artery of [place] heart without angina pectoris I25.10 Active 7059140978363 Problem Obesity hypoventilation syndrome E66.2 Active 160473508 ALLERGIES No Information ENCOUNTERS Encounter Location Date Diagnosis [facility] [address], [place] [address] Jul, Type 2 diabetes mellitus without complication E11.[address] [facility] [address], [place] [address] Jul, [facility] [id number] [place] [address] Jul, [facility] [address], [place] [address] Jul, [facility] [id number] [place] [address] Jun, [facility] [address], [place] [address] Jun, [facility] [id number] [place] [address] Jun, Pneumonia of right lower lobe due to infectious organism J18.1 [facility] [id number] [place] [address] Jun, Cough R05 ; Wheeze R06.2 and Pneumonia of right lower lobe due to infectious organism J18.1 [facility] [id number] [place] [address] May, [facility] [id number] [place] [address] May, [facility] [id number] [place] [address] May, Venous insufficiency I87.2 [facility] [id number] [place] [address] May, [facility] [id number] [place] [address] Apr, [facility] [id number] [place] [address] Apr, Cor pulmonale I27.81 [facility] [id number] [place] [address] Apr, Venous insufficiency I87.2 [facility] [id number] [place] [address] Apr, [facility] [id number] [place] [address] Apr, Neuropathy G62.[address] [facility] [id number] [place] [address] Apr, [facility] [id number], [place] [address] Apr, [facility] [id number] [place] [address] Apr, [facility] [id number] [place] [address] Apr, Swelling of right lower extremity M79.89 [facility] [id number] [place] [address] Apr, [facility] [id number] [place] [address] Mar, Bronchitis J40 [facility] [id number] [place] [address] Mar, [facility] [id number] [place] [address] Mar, 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 ; Encounter for immunization Z23 and Arthritis M19.90 [facility] [id number] [place] [address] Mar, Arthritis M19.90 and Back pain M54.9 [facility] [id number] [place] [address] Mar, [facility] [id number] [place] [address] Mar, [facility] [id number] [place] [address] Feb, Arthritis M19.90 [facility] [id number] [place] [address] Jan, Arthritis M19.90 [facility] [id number] [place] [address] Jan, Back pain M54.[address] [facility] [id number] [place] [address] Jan, [facility] [address] [facility] [id number], [place] [address] Jan, Back pain M54.9 [facility] [address] [facility] [id number], [place] [address] Jan, Ar[address]ritis M19.90 [facility] [id number] [place] [address] Jan, Back pain M54.9 [facility] [address] [facility] [id number] [place] [address] Jan, [facility] [id number] [place] [address] Jan, Back pain M54.9 [facility] [id number], [place] [address] Dec, Ingrowing nail with infection L60.[address] [facility] [address] [facility] [id number], [place] [address] Dec, [address] [facility] [address] [facility] [id number] [place] [address] Dec, Ingrowing nail L60.0 [facility] [id number], [place] [address] Dec, Back pain M54.9 [facility] [address] [facility] [id number], [place] [address] Dec, [facility] [address] [facility] [id number] [place] [address] Dec, Back pain M54.9 [facility] [id number], [place] [address] Nov, Arthritis M19.90 [facility] [id number], [place] [address] Nov, [facility] [id number] [place] [address] Nov, Arthritis M19.90 ; Anemia D64.9 ; Restrictive lung disease J98.4 ; Weakness R53.1 and BMI 50.0-59.9, adult Z68.43 [facility] [id number] [place] [address] Nov, Arthritis M19.90 [facility] [address] [address] Nov, Back pain M54.9 [place] [address] [address] October, Back pain M54.9 [place] [id number] [place] [address] October, Back pain M54.9 [facility] [address] [address] Sep, Back pain M54.9 [facility] [id number] [place] [address] Sep, Back pain M54.9 [facility] [id number] [place] [address] Sep, [facility] [id number] [place] [address] Sep, [facility] [id number] [place] [address] Sep, Swelling of right lower extremity M79.89 and Cellulitis of right lower extremity L03.115 [place] [id number] [place] [address] Aug, Back pain M54.9 [facility] [id number] [place] [address] Aug, Back pain M54.9 [place] [address], [place] [address] Aug, [place] [id number] [place] [address] Aug, Cellulitis of right lower extremity L03.115 ; Ventral hernia without obstruction or gangrene K43.9 and BMI 50.0-59.9, adult Z68.43 [place] [id number] [place] [address] 28 Jul, 2017 Back pain M54.9 [place] [id number] [place] [address] Jul, penitentiary (current) 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 Z79.891 ; Arthritis M19.90 ; Back pain M54.9 ; Prediabetes R73.09 ; Hypothyroidism E03.9 ; Coronary artery disease involving [place] coronary artery of [place] heart without angina pectoris I25.10 and Anemia D64.9 [place] [id number] [place] [address] 27 Jul, 2017 penitentiary (current) 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 Z79.891 ; Back pain M54.9 ; Arthritis M19.90 ; Prediabetes R73.09 ; Hypothyroidism E03.9 ; Coronary artery disease involving [place] coronary artery of [place] heart without angina pectoris I25.10 ; Anemia D64.9 and BMI 45.0-49.9, adult Z68.42 [place] [id number] [place] [address] 15 Jul, 2017 Back pain M54.9 [place] [id number] [place] [address] 05 Jul, 2017 Back pain M54.9 [place] [id number] [place] [address] Jun, Back pain M54.9 [place] [id number] [place] [address] Jun, Back pain M54.9 [facility] [address], [place] [address] May, Skin cancer of face C44.300 and BMI 45.0-49.9, adult Z68.42 [facility] [id number] [place] [address] May, [facility] [address] [address] May, Back pain M54.9 [facility] [id number] [place] [address] May, Back pain M54.9 [facility] [id number] [place] [address] May, Back pain M54.9 [facility] [id number] [place] [address] Apr, Back pain M54.9 [facility] [id number] [place] [address] Apr, Back pain M54.9 [facility] [id number] [place] [address] Mar, Back pain M54.9 [facility] [id number] [place] [address] Mar, Anemia D64.9 ; Encounter for immunization Z23 ; Arthritis M19.90 and Right inguinal hernia K40.90 [facility] [id number] [place] [address] Mar, Back pain M54.9 [facility] [id number] [place] [address] 22 Feb, [address] [facility] [id number] [place] [address] 13 Feb, [address] [facility] [id number] [place] [address] Jan, Back pain M54.9 [facility] [address] [facility] [id number] [place] [address] Jan, Back pain M54.9 [facility] [address] [facility] [id number] [place] [address] Jan, [facility] [address] [facility] [id number] [place] [address] Jan, Back pain M54.9 [facility] [address] [facility] [id number] [place] [address] Dec, Back pain M54.9 [facility] [id number] [place] [address] Dec, Back pain M54.9 [facility] [id number] [place] [address] Dec, [facility] [address] [facility] [id number] [place] [address] Nov, Hypokalemia E87.6 [facility] [id number] [place] [address] Nov, Back pain M54.9 [facility] [id number] [place] [address] Nov, [facility] [id number] [place] [address] Nov, Arthritis M19.90 [facility] [address] [facility] [id number] [place] [address] Nov, Back pain M54.9 [facility] [id number] [place] [address] Nov, Generalized edema R60.1 [facility] [id number] [place] [address] Nov, Back pain M54.9 [facility] [id number] [place] [address] 07 Nov, 2016 Pain in right knee M25.561 [place] [id number] [place] [address] 05 Nov, 2016 Encounter for removal of sutures Z48.02 and Pain in right knee M25.561 [facility] [place] [id number] [place] [address] Nov, Abrasion of right foot, subsequent encounter S90.811D [facility] [place] [id number] [place] [address] October, Toe abrasion, right, initial encounter S90.414A [place] [id number] [place] [address] October, [place] [address] [address] October, Back pain M54.9 [place] [id number] [place] [address] October, Venous insufficiency I87.2 [place] [id number] [place] [address] October, Pain in right knee M25.561 [place] [id number] [place] [address] Sep, Back pain M54.9 [place] [id number] [place] [address] Sep, Venous insufficiency I87.2 [facility] [address] [id number] Sep, [facility] [place] [id number] [place] [address] Sep, Leg edema, right R60.0 and Cellulitis of right lower extremity L03.115 [place] [id number] [place] [address] 14 Sep, 2016 Pedal edema R60.0 [place] [id number] [place] [address] 04 Sep, 2016 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 ; Pain in right knee M25.561 and Arthritis M19.90 [place] [address] [address] Aug, Back pain M54.9 [place] [address] [address] Aug, Back pain M54.9 [place] [id number] [place] [address] Aug, [place] [id number] [place] [address] Aug, Type 2 diabetes mellitus without complication E11.9 ; Restrictive lung disease J98.4 ; Arthritis M19.90 ; Back pain M54.9 ; Body mass index (BMI) of 45.0-49.9 in adult Z68.42 and Morbid (severe) obesity due to excess calories E66.01 [facility] [id number] [place] [address] Aug, Back pain M54.9 [place] [id number] [place] [address] Aug, Back pain M54.9 [facility] [id number] [place] [address] Jul, [place] [id number] [place] [address] Jul, Back pain M54.9 [facility] [id number] [place] [address] Jul, Back pain M54.9 [facility] [address] [place] [address] 13 Jun, [address] [facility] [id number] [place] [address] Jun, Back pain M54.9 [facility] [address] [facility] [id number] [place] [address] May, Back pain M54.9 [facility] [address] [facility] [id number] [place] [address] 16 May, [address] [facility] [address] [facility] [id number] [place] [address] May, Back pain M54.9 [facility] [id number] [place] [address] May, Back pain M54.9 [facility] [id number] [place] [address] May, [facility] [id number] [place] [address] May, Back pain M54.9 and Pain in right knee M25.561 [facility] [id number] [place] [address] Apr, [facility] [id number] [place] [address] Apr, Type 2 diabetes mellitus without complication E11.9 ; Pain in right knee M25.561 and Pain in left knee M25.562 [facility] [id number] [place] [address] Mar, [facility] [id number] [place] [address] Mar, [facility] [id number] [place] [address] Mar, [facility] [id number] [place] [address] 18 Mar, 2016 Restrictive lung disease J98.4 ; Anemia D64.9 and Cor pul[address] I27.81 [facility] [address] [facility] [id number], [place] [address] [address] Mar, [address] [facility] [address] [facility] [id number], [place] [address] [address], 2016 [facility] [address] [facility] [id number] [place] [address] Mar, [facility] [address] [facility] [id number] [place] [address] [address], [address] [facility] [id number] [place] [address] [address], [address] [facility] [id number] [place] [address] [address], [address] [facility] [id number] [place] [address] 27 Feb, 2016 Restrictive lung disease J98.4 [facility] [id number], [place] [address] 23 Feb, 2016 [facility] [address] [facility] [id number], [place] [address] [address], [address] [facility] [address], [place] [address] [address], [address] [facility] [id number], [place] [address] Jan, [facility] [address], [place] [address] Jan, [facility] [id number], [place] [address] Jan, [facility] [address], [place] [address] Jan, [facility] [id number] [place] [address] Jan, Restrictive lung disease J98.4 ; Anemia D64.9 and [address] pul[address] I27.81 [facility] [id number] [place] [address] Dec, [facility] [id number] [place] [address] Dec, [facility] [id number] [place] [address] Nov, Arthritis M19.[address] [facility] [id number] [place] [address] Nov, Back pain M54.9 [facility] [id number] [place] [address] October, Back pain M54.9 [facility] [id number] [place] [address] October, Back pain M54.9 [facility] [id number] [place] [address] Sep, Scabies exposure Z20.89 [facility] [id number] [place] [address] Sep, Restrictive lung disease J98.4 [facility] [id number] [place] [address] Sep, Back pain M54.9 [facility] [id number] [place] [address] Sep, Restrictive lung disease J98.4 [facility] [id number] [place] [address] Aug, [facility] [id number] [place] [address] Aug, [facility] [id number] [address] Aug, [facility] [id number] [place] [address] Aug, [facility] [id number] [place] [address] Aug, Back pain M54.9 [facility] [id number] [place] [address] Jul, Anemia D64.[address] [facility] [id number] [place] [address] Jul, Back pain M54.9 [facility] [id number] [place] [address] Jul, Back pain M54.9 [facility] [id number] [place] [address] Jul, [facility] [id number] [place] [address] 05 Jul, 2015 Bronchitis J40 [address] An[address]9 [facility] [id number] [place] [address] Jun, [facility] [id number] [place] [address] Jun, [facility] [id number] [place] [address] Jun, Bronchitis J40 and Anemia [address]9 [facility] [id number] [place] [address] Jun, [facility] [id number] [place] [address] Jun, Back pain M54.9 [facility] [id number] [place] [address] Jun, Anemia D64.9 [facility] [id number] [place] [address] Jun, Restrictive lung disease J98.4 ; Anemia D64.9 ; Hypothyroidism E03.9 ; Cor pulmonale I27.81 [address] Back [address] M54.9 [facility] [id number] [place] [address] May, [address] [facility] [address] [address] Apr, Anemia D64.9 ; Encounter for immunization Z23 and Restrictive lung disease J98.4 [facility] [address] [address] Apr, [facility] [id number] [place] [address] Mar, [facility] [address] [address] Mar, Iron deficiency anemia D50.9 [facility] [id number] [place] [address] Mar, [facility] [id number] [place] [address] Mar, [facility] [id number] [place] [address] Mar, Anemia D64.9 [facility] [id number] [place] [address] Mar, [facility] [id number] [place] [address] Mar, Anemia D64.9 [facility] [id number] [place] [address] Mar, Restrictive lung disease J98.[address] [facility] [id number] [place] [address] Mar, [facility] [id number] [place] [address] Mar, Anemia D64.9 [facility] [id number] [place] [address] Mar, Anemia D64.9 [facility] [id number] [place] [address] Mar, [facility] [id number] [place] [address] Mar, Diabetes mellitus E11.9 ; Bronchitis J40 [address] [facility] [id number] [place] [address] Feb, [facility] [id number] [place] [address] Feb, [facility] [address] [address] Feb, [facility] [id number] [place] [address] Feb, [facility] [id number] [place] [address] Jan, [facility] [id number] [place] [address] Jan, [facility] [id number] [place] [address] Dec, Venous insufficiency 459.81 [facility] [id number] [place] [address] Dec, [facility] [id number] [place] [address] Dec, [facility] [id number] [place] [address] Dec, Coronary atherosclerosis of unspecified type of vessel, [place] or graft 414.00 ; Unspecified anemia 285.9 and Generalized osteoarthrosis, unspecified site 715.00 [facility] [id number] [address] Nov, [facility] [id number] [place] [address] Nov, [facility] [id number] [place] [address] Nov, [facility] [id number] [place] [address] October, [facility] [id number] [place] [address] October, Acute bronchitis 466.0 and Shortness of breath 786.05 [facility] [id number] [place] [address] Sep, [facility] [id number] [place] [address] Sep, [facility] [id number] [place] [address] Aug, [facility] [id number] [place] [address] Aug, [facility] [id number], [place] [address] Jul, [facility] [id number] [place] [address] Jul, [facility] [address], [place] [address] Jul, [facility] [id number] [place] [address] Jul, [facility] [address], [place] [address] Jun, [facility] [id number] [place] [address] Jun, [facility] [place] [facility] [address] [id number] [place] [address] Jun, [facility] [place] [facility] [address] [id number] [place] [address] Jun, [facility] [place] [facility] [address] [facility] [id number] [place] [address] Jun, [facility] [place] [facility] [address] [id number] [place] [address] Jun, [facility] [place] [facility] [address] [id number] [place] [address] May, [facility] [place] [facility] [address] [id number] [place] [address] May, [facility] [place] [facility] [address] [facility] [id number] [place] [address] May, [facility] [place] [facility] [address] [facility] [id number] [place] [address] May, [facility] [place] [facility] [address] [facility] [id number] [place] [address] Apr, [facility] [place] [facility] [address] [facility] [id number] [place] [address] Apr, [facility] [place] [facility] [address] [id number] [place] [address] Apr, [facility] [place] [facility] [address] [id number] [place] [address] Apr, [facility] [place] [facility] [address] [id number] [place] [address] Apr, [facility] [place] [facility] [address] [facility] [id number] [place] [address] Apr, [facility] [place] [facility] [address] [facility] [id number] [place] [address] Mar, [facility] [place] [facility] [address] [id number] [place] [address] Mar, [facility] [place] [facility] [address] [id number] [place] [address] Mar, [facility] [place] [facility] [address] [id number] [place] [address] Mar, [facility] [place] [facility] [address] [id number] [place] [address] Mar, [facility] [place] [facility] [address] [id number] [place] [address] Mar, [facility] [place] [facility] [address] [id number] [place] [address] Mar, [facility] [place] [facility] [address] [id number] [place] [address] Mar, [facility] [place] [facility] [address] [id number] [place] [address] Feb, [facility] [place] [facility] [address] [id number] [place] [address] Feb, [facility] [place] [facility] [address] [id number] [place] [address] Jan, [facility] [place] [facility] [address] [id number] [place] [address] Jan, [facility] [place] [facility] [address] [id number] [place] [address] Jan, [facility] [place] [facility] [address] [id number] [place] [address] Jan, [facility] [place] [facility] [address] [id number] [place] [address] Jan, [facility] [place] [facility] [address] [id number] [place] [address] Jan, [facility] [place] [facility] [address] [id number] [place] [address] Dec, [facility] [place] [facility] [address] [id number] [place] [address] Dec, [facility] [place] [facility] [address] [id number] [place] [address] Dec, [facility] [place] [facility] [address] [id number] [place] [address] Dec, [facility] [place] [facility] [address] [id number] [place] [address] Nov, [facility] [place] [facility] [address] [id number] [place] [address] Nov, [facility] [place] [facility] [address] [id number] [place] [address] Nov, [facility] [place] [facility] [address] [id number] [place] [address] Nov, [facility] [place] [facility] [address] [id number] [place] [address] Nov, [facility] [place] [facility] [address] [id number] [place] [address] Nov, [facility] [place] [facility] [address] [id number] [place] [address] Nov, [facility] [place] [facility] [address] [id number] [place] [address] Nov, [facility] [place] [facility] [address] [id number] [place] [address] Nov, [facility] [place] [facility] [address] [id number] [place] [address] Nov, [facility] [place] [facility] [address] [id number] [place] [address] Nov, [facility] [place] [facility] [address] [id number] [place] [address] Nov, [facility] [place] [facility] [address] [id number] [place] [address] October, [facility] [address] [id number] [place] [address] October, [facility] [place] [facility] [address] [id number] [place] [address] October, [facility] [place] [facility] [address] [id number] [place] [address] October, [facility] [place] [facility] [address] [id number] [place] [address] October, [facility] [place] [facility] [address] [id number] [place] [address] October, [facility] [place] [facility] [address] [id number] [place] [address] October, [facility] [address] [id number] [place] [address] October, [facility] [place] [facility] [address] [id number] [place] [address] October, [facility] [place] [facility] [address] [id number] [place] [address] Sep, [facility] [place] [facility] [address] [id number] [place] [address] Sep, [facility] [place] [facility] [address] [id number] [place] [address] Sep, [facility] [place] [facility] [address] [id number] [place] [address] Sep, [facility] [place] [facility] [address] [id number] [place] [address] Sep, [facility] [place] [facility] [address] [id number] [place] [address] Sep, [facility] [place] [facility] [address] [id number] [place] [address] Aug, [facility] [place] [facility] [address] [id number] [place] [address] Aug, [facility] [place] [facility] [address] [id number] [place] [address] Aug, [facility] [place] [facility] [address] [id number] [place] [address] Aug, [facility] [place] [facility] [address] [id number] [place] [address] Aug, [facility] [place] [facility] [address] [id number] [place] [address] Aug, [facility] [place] [facility] [address] [id number] [place] [address] Aug, [facility] [place] [facility] [address] [id number] [place] [address] Aug, [facility] [place] [facility] [address] [id number] [place] [address] Aug, [facility] [place] [facility] [address] [id number] [place] [address] Aug, [facility] [place] [facility] [address] [id number] [place] [address] Jul, [facility] [place] [facility] [address] [id number] [place] [address] Jul, [facility] [place] [facility] [address] [id number] [place] [address] Jun, [facility] [place] [facility] [address] [id number] [place] [address] Jun, [facility] [place] [facility] [address] [id number] [place] [address] Jun, [facility] [place] [facility] [address] [id number] [place] [address] Jun, [facility] [place] [facility] [address] [id number] [place] [address] Jun, [facility] [address] [id number] [place] [address] Jun, [facility] [place] [facility] [address] [id number] [place] [address] Jun, [facility] [place] [facility] [address] [id number] [place] [address] Jun, [facility] [place] [facility] [address] [id number] [place] [address] May, [facility] [place] [facility] [address] [id number] [place] [address] May, [facility] [place] [facility] [address] [id number] [place] [address] May, [facility] [place] [facility] [address] [id number] [place] [address] May, [facility] [place] [facility] [address] [id number] [place] [address] May, [facility] [place] [facility] [address] [id number] [place] [address] May, [facility] [place] [facility] [address] [id number] [place] [address] May, [facility] [place] [facility] [address] [id number] [place] [address] May, [facility] [place] [facility] [address] [id number] [place] [address] May, [facility] [place] [facility] [address] [id number] [place] [address] Apr, [facility] [place] [facility] [address] [id number] [place] [address] Apr, [facility] [place] [facility] [address] [id number] [place] [address] Apr, [facility] [place] [facility] [address] [id number] [place] [address] Apr, 2012 [facility] [place] [facility] [address] [id number] [place] [address] Mar, 2012 [facility] [place] [facility] [address] [id number] [place] [address] Mar, 2012 [facility] [place] [facility] [address] [id number] [place] [address] Mar, 2012 [facility] [place] [facility] [address] [id number] [place] [address] Mar, 2012 [facility] [place] [facility] [address] [id number] [place] [address] Mar, 2012 [facility] [place] [facility] [address] [id number] [place] [address] Mar, 2012 [facility] [place] [facility] [address] [id number] [place] [address] Mar, 2012 [facility] [place] [facility] [address] [id number] [place] [address] Mar, 2012 [facility] [place] [facility] [address] [id number] [place] [address] Mar, 2012 [facility] [place] [facility] [address] [id number] [place] [address] Mar, 2012 [facility] [place] [facility] [address] [id number] [place] [address] Mar, 2012 [facility] [place] [facility] [address] [id number], [place] [address] Mar, 2012 [facility] [place] [facility] [address] [id number] [place] [address] Mar, 2012 [facility] [place] [facility] [address] [id number] [place] [address] Mar, 2012 [facility] [place] [facility] [address] [id number] [place] [address] Mar, 2012 [facility] [place] [facility] [address] [id number] [place] [address] 18 Mar, 2012 [facility] [place] [facility] [address] [id number] [place] [address] 17 Mar, 2012 [facility] [place] [facility] [address] [id number] [place] [address] 17 Mar, 2012 [facility] [place] [facility] [address] [id number] [place] [address] 15 Mar, 2012 [facility] [place] [facility] [address] [id number] [place] [address] 15 Mar, 2012 [facility] [place] [facility] [address] [id number] [place] [address] 14 Mar, 2012 [facility] [place] [facility] [address] [id number] [place] [address] 14 Mar, 2012 [facility] [place] [facility] [address] [id number] [place] [address] 14 Mar, 2012 [facility] [place] [facility] [address] [id number] [place] [address] 14 Mar, 2012 [facility] [place] [facility] [address] [id number], [place] [address] 12 Mar, 2012 [facility] [place] [facility] [address] [id number], [place] [address] 11 Mar, 2012 [facility] [place] [facility] [address] [id number], [place] [address] 11 Mar, 2012 [facility] [place] [facility] [address] [id number] [place] [address] 10 Mar, 2012 [facility] [place] [facility] [address] [id number], [place] [address] 10 Mar, 2012 [facility] [place] [facility] [address] [id number], [place] [address] 10 Mar, 2012 [facility] [place] [facility] [address] [id number] [place] [address] Mar, [facility] [place] [facility] [address] [id number] [place] [address] Mar, [facility] [place] [facility] [address] [id number] [place] [address] Mar, [facility] [place] [facility] [address] [id number] [place] [address] Feb, [facility] [place] [facility] [address] [id number] [place] [address] Feb, [facility] [place] [facility] [address] [id number] [place] [address] Feb, [facility] [place] [facility] [address] [id number] [place] [address] Feb, [facility] [place] [facility] [address] [id number] [place] [address] Jan, [facility] [place] [facility] [address] [id number] [place] [address] Jan, [facility] [place] [facility] [address] [id number] [place] [address] Jan, [facility] [place] [facility] [address] [id number] [place] [address] Jan, [facility] [place] [facility] [address] [id number] [place] [address] Jan, [facility] [place] [facility] [address] [id number] [place] [address] Jan, [facility] [place] [facility] [address] [id number] [place] [address] Dec, [facility] [place] [facility] [address] [id number] [place] [address] Dec, [facility] [place] [facility] [address] [id number] [place] [address] Dec, [facility] [place] [facility] [address] [id number] [place] [address] Dec, [facility] [place] [facility] [address] [id number] [place] [address] Dec, [facility] [place] [facility] [address] [id number] [place] [address] Dec, [facility] [place] [facility] [address] [id number] [place] [address] Dec, [facility] [place] [facility] [address] [id number] [place] [address] Dec, [facility] [place] [facility] [address] [id number] [place] [address] Dec, [facility] [address] [id number] [place] [address] Dec, [facility] [place] [facility] [address] [id number] [place] [address] Dec, [facility] [address] [id number] [place] [address] October, [facility] [place] [facility] [address] [id number] [place] [address] October, [facility] [place] [facility] [address] [id number] [place] [address] October, [facility] [place] [facility] [address] [id number] [place] [address] October, [facility] [place] [facility] [address] [id number] [place] [address] Sep, [facility] [place] [facility] [address] [id number] [place] [address] Sep, [facility] [place] [facility] [address] [id number] [place] [address] Sep, [facility] [place] [facility] [address] [id number] [place] [address] Sep, [facility] [address] [facility] [id number] [address] Sep, [facility] [address] [facility] [id number] [address] Sep, [facility] [address] [id number] [address] Sep, [facility] [id number] [address] Sep, [facility] [address] [id number] [address] Sep, [facility] [address] [id number], [place] [address] Sep, [facility] [address] [id number], [place] [address] Sep, IMMUNIZATIONS No Known Immunizations SOCIAL HISTORY Never Assessed REASON FOR VISIT [facility] PLAN OF CARE VITAL SIGNS MEDICATIONS No Known Medications RESULTS No Results PROCEDURES No Known [...] cramps--[facility] 03/04/16 Hospitalization History RLE Cellulitis, Hypokalemia, anemia-[facility] 09/29/15 Hospitalization History Lower edema 09/2016 Hospitalization History Received stitches ER 10/2016 Hospitalization History hallucinations/ dimished mental capasity 03/19-03/21/18
--- OUTSIDE RECORDS SUMMARY | 2018-12-04 18:49 | XMS REPORT ---
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 Role Phone Migration, Doctor Unavailable Unavailable PROBLEMS Type Condition ICD9-CM Code NCX61-YR Code Onset Dates Condition Status SNOMED Code Problem Restrictive lung disease J98.4 Active 76185655 Problem Cor pulmonale I27.81 Active 48127916 Problem Anemia D64.9 Active 325739229 Problem Prediabetes R73.09 Active 5472219 Problem Arthritis M19.90 Active 3222962 Problem Body mass index (BMI) of 45.0-49.9 in adult Z68.42 Active 928933147 Problem Neuropathy G62.9 Active 258819618 Problem Hypothyroidism E03.9 Active 96048793 Problem Type 2 diabetes mellitus without complication E11.9 Active 519235555 Problem Back pain M54.9 Active 923746177 Problem 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 Active 209735080 Problem Venous insufficiency I87.2 Active 11416333 Problem Coronary artery disease involving [place] coronary artery of [place] heart without angina pectoris I25.10 Active 6739863721434 Problem Obesity hypoventilation syndrome E66.2 Active 071980221 ALLERGIES No Information ENCOUNTERS Encounter Location Date Diagnosis [facility] [address] [address] Jul, Type 2 diabetes mellitus without complication E11.9 and Arthritis M19.90 [facility] [address] [address] Jul, [facility] [id number] [place] [address] Jul, [facility] [address] [address] Jul, [facility] [id number] [place] [address] Jun, [facility] [address] [address] Jun, [facility] [id number] [place] [address] Jun, Pneumonia of right lower lobe due to infectious organism J18.1 [facility] [id number] [place] [address] Jun, Cough R05 ; Wheeze R06.2 and Pneumonia of right lower lobe due to infectious organism J18.1 [facility] [id number] [place] [address] May, [facility] [id number] [place] [address] May, [facility] [id number] [place] [address] May, Venous insufficiency I87.2 [facility] [id number] [place] [address] May, [facility] [id number] [place] [address] Apr, [facility] [id number] [place] [address] Apr, Cor pulmonale I27.81 [facility] [id number] [place] [address] Apr, Venous insufficiency I87.2 [facility] [id number] [place] [address] Apr, [facility] [id number] [place] [address] Apr, Neuropathy G62.9 and Prediabetes R73.09 [facility] [id number] [place] [address] Apr, [facility] [id number] [address] Apr, [facility] [id number] [place] [address] Apr, [facility] [id number] [place] [address] Apr, Swelling of right lower extremity M79.89 [facility] [id number] [place] [address] Apr, [facility] [id number] [place] [address] Mar, Bronchitis J40 [facility] [id number] [place] [address] Mar, [facility] [id number] [place] [address] Mar, 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 ; Encounter for immunization Z23 and Arthritis M19.90 [facility] [id number] [place] [address] Mar, Arthritis M19.90 and Back pain M54.9 [facility] [id number] [place] [address] Mar, [facility] [id number] [place] [address] Mar, [facility] [id number] [place] [address] Feb, Arthritis M19.90 [facility] [id number] [place] [address] Jan, Arthritis M19.90 [facility] [id number] [place] [address] Jan, Back pain M54.9 and Arthritis M19.90 [facility] [id number] [place] [address] Jan, [facility] [address] [facility] [id number] [address] Jan, Back pain M54.9 [facility] [address] [facility] [id number] [address] Jan, Arthritis M19.90 [facility] [id number] [place] [address] Jan, Back pain M54.9 [facility] [address] [facility] [id number] [place] [address] Jan, [facility] [id number] [place] [address] Jan, Back pain M54.9 [facility] [id number] [address] Dec, Ingrowing nail with infection L60.0 and Onychomycosis B35.1 [facility] [address] [facility] [id number] [address] Dec, Arthritis M19.90 [facility] [address] [facility] [id number] [place] [address] Dec, Ingrowing nail L60.0 [facility] [id number] [address] Dec, Back pain M54.9 [facility] [address] [facility] [id number] [address] Dec, [facility] [address] [facility] [id number] [place] [address] Dec, Back pain M54.9 [facility] [id number] [address] Nov, Arthritis M19.90 [facility] [id number] [address] Nov, [facility] [id number] [place] [address] Nov, Arthritis M19.90 ; Anemia D64.9 ; Restrictive lung disease J98.4 ; Weakness R53.1 and BMI 50.0-59.9, adult Z68.43 [facility] [id number] [place] [address] Nov, Arthritis M19.90 [facility] [address] [address] Nov, Back pain M54.9 [place] [address] [address] October, Back pain M54.9 [facility] [id number] [place] [address] October, Back pain M54.9 [facility] [address] [address] Sep, Back pain M54.9 [facility] [id number] [place] [address] Sep, Back pain M54.9 [facility] [id number] [place] [address] Sep, [facility] [id number] [place] [address] Sep, [facility] [id number] [place] [address] Sep, Swelling of right lower extremity M79.89 and Cellulitis of right lower extremity L03.115 [facility] [id number] [place] [address] Aug, Back pain M54.9 [facility] [id number] [place] [address] Aug, Back pain M54.9 [facility] [address] [address] Aug, [facility] [id number] [place] [address] Aug, Cellulitis of right lower extremity L03.115 ; Ventral hernia without obstruction or gangrene K43.9 and BMI 50.0-59.9, adult Z68.43 [facility] [id number] [place] [address] 28 Jul, 2017 Back pain M54.9 [facility] [id number] [place] [address] Jul, jail (current) 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 Z79.891 ; Arthritis M19.90 ; Back pain M54.9 ; Prediabetes R73.09 ; Hypothyroidism E03.9 ; Coronary artery disease involving [place] coronary artery of [place] heart without angina pectoris I25.10 and Anemia D64.9 [facility] [id number] [place] [address] 27 Jul, 2017 jail (current) 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 Z79.891 ; Back pain M54.9 ; Arthritis M19.90 ; Prediabetes R73.09 ; Hypothyroidism E03.9 ; Coronary artery disease involving [place] coronary artery of [place] heart without angina pectoris I25.10 ; Anemia D64.9 and BMI 45.0-49.9, adult Z68.42 [place] [address] [place] [address] 15 Jul, 2017 Back pain M54.9 [place] [id number] [place] [address] 05 Jul, 2017 Back pain M54.9 [facility] [id number] [place] [address] Jun, Back pain M54.9 [facility] [id number] [place] [address] Jun, Back pain M54.9 [facility] [address] [address] May, Skin cancer of face C44.300 and BMI 45.0-49.9, adult Z68.42 [facility] [id number] [place] [address] May, [facility] [address] [address] May, Back pain M54.9 [facility] [id number] [place] [address] May, Back pain M54.9 [facility] [id number] [place] [address] May, Back pain M54.9 [facility] [id number] [place] [address] Apr, Back pain M54.9 [facility] [id number] [place] [address] Apr, Back pain M54.9 [facility] [id number] [place] [address] Mar, Back pain M54.9 [facility] [id number] [place] [address] Mar, Anemia D64.9 ; Encounter for immunization Z23 ; Arthritis M19.90 and Right inguinal hernia K40.90 [facility] [id number] [place] [address] Mar, Back pain M54.9 [facility] [id number] [place] [address] 22 Feb, 2017 Back pain M54.9 [facility] [id number] [place] [address] 13 Feb, 2017 Back pain M54.9 [facility] [id number] [place] [address] Jan, Back pain M54.9 [facility] [address] [facility] [id number] [place] [address] Jan, Back pain M54.9 [facility] [address] [facility] [id number] [place] [address] Jan, [facility] [address] [facility] [id number] [place] [address] Jan, Back pain M54.9 [facility] [address] [facility] [id number] [place] [address] Dec, Back pain M54.9 [facility] [id number] [place] [address] Dec, Back pain M54.9 [facility] [id number] [place] [address] Dec, [facility] [address] [facility] [id number] [place] [address] Nov, Hypokalemia E87.6 [facility] [id number] [place] [address] Nov, Back pain M54.9 [facility] [id number] [place] [address] Nov, [facility] [id number] [place] [address] Nov, Arthritis M19.90 [facility] [address] [facility] [id number] [place] [address] Nov, Back pain M54.9 [facility] [id number] [place] [address] Nov, Generalized edema R60.1 [facility] [id number] [place] [address] Nov, Back pain M54.9 [facility] [id number] [place] [address] 07 Nov, 2016 Pain in right knee M25.561 [facility] [id number] [place] [address] 05 Nov, 2016 Encounter for removal of sutures Z48.02 and Pain in right knee M25.561 [facility] [place] [id number] [place] [address] Nov, Abrasion of right foot, subsequent encounter S90.811D [facility] [place] [id number] [place] [address] October, Toe abrasion, right, initial encounter S90.414A [place] [id number] [place] [address] October, [place] [address] [address] October, Back pain M54.9 [facility] [id number] [place] [address] October, Venous insufficiency I87.2 [facility] [place] [id number] [place] [address] October, Pain in right knee M25.561 [facility] [id number] [place] [address] Sep, Back pain M54.9 [place] [id number] [place] [address] Sep, Venous insufficiency I87.2 [facility] [address] [id number] Sep, [facility] [place] [id number] [place] [address] Sep, Leg edema, right R60.0 and Cellulitis of right lower extremity L03.115 [place] [id number] [place] [address] 14 Sep, 2016 Pedal edema R60.0 [place] [id number] [place] [address] 04 Sep, 2016 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 ; Pain in right knee M25.561 and Arthritis M19.90 [place] [address] [address] Aug, Back pain M54.9 [place] [address] [address] Aug, Back pain M54.9 [facility] [id number] [place] [address] Aug, [place] [id number] [place] [address] Aug, Type 2 diabetes mellitus without complication E11.9 ; Restrictive lung disease J98.4 ; Arthritis M19.90 ; Back pain M54.9 ; Body mass index (BMI) of 45.0-49.9 in adult Z68.42 and Morbid (severe) obesity due to excess calories E66.01 [facility] [id number] [place] [address] Aug, Back pain M54.9 [place] [id number] [place] [address] Aug, Back pain M54.9 [facility] [id number] [place] [address] Jul, [place] [id number] [place] [address] Jul, Back pain M54.9 [facility] [id number] [place] [address] Jul, Back pain M54.9 [facility] [address] [place] [address] 13 Jun, 2016 Back pain M54.9 [facility] [id number] [place] [address] Jun, Back pain M54.9 [facility] [address] [facility] [id number] [place] [address] May, Back pain M54.9 [facility] [address] [facility] [id number] [place] [address] 16 May, 2016 Back pain M54.9 [facility] [address] [facility] [id number] [place] [address] May, Back pain M54.9 [facility] [id number] [place] [address] May, Back pain M54.9 [facility] [id number] [place] [address] May, [facility] [id number] [place] [address] May, Back pain M54.9 and Pain in right knee M25.561 [facility] [id number] [place] [address] Apr, [facility] [address] [place] [address] Apr, Type 2 diabetes mellitus without complication E11.9 ; Pain in right knee M25.561 and Pain in left knee M25.562 [facility] [id number] [place] [address] Mar, [facility] [id number] [place] [address] Mar, [facility] [id number] [place] [address] Mar, [facility] [id number] [place] [address] 18 Mar, 2016 Restrictive lung disease J98.4 ; Anemia D64.9 and Cor pulmonale I27.81 [facility] [address] [facility] [id number] [address] 17 Mar, 2016 [facility] [address] [facility] [id number] [place] [address] 14 Mar, 2016 [facility] [address] [facility] [id number] [place] [address] Mar, [facility] [address] [facility] [id number] [place] [address] 30 Feb, 2016 [facility] [id number] [place] [address] 29 Feb, 2016 [facility] [address] [place] [address] 28 Feb, 2016 [facility] [id number] [place] [address] 27 Feb, 2016 Restrictive lung disease J98.4 [facility] [id number] [address] 23 Feb, 2016 [facility] [address] [facility] [id number] [place] [address] 22 Feb, 2016 [facility] [address] [address] 16 Feb, 2016 [facility] [id number] [address] Jan, [facility] [address] [address] Jan, [facility] [id number] [address] Jan, [facility] [address] [address] Jan, [facility] [id number] [place] [address] Jan, Restrictive lung disease J98.4 ; Anemia D64.9 and Cor pulmonale I27.81 [facility] [id number] [place] [address] Dec, [facility] [id number] [place] [address] Dec, [facility] [id number] [place] [address] Nov, Arthritis M19.90 and Hypokalemia E87.6 [facility] [id number] [place] [address] Nov, Back pain M54.9 [facility] [id number] [place] [address] October, Back pain M54.9 [facility] [id number] [place] [address] October, Back pain M54.9 [facility] [id number] [place] [address] Sep, Scabies exposure Z20.89 [facility] [id number] [place] [address] Sep, Restrictive lung disease J98.4 [facility] [id number] [place] [address] Sep, Back pain M54.9 [facility] [id number] [place] [address] Sep, Restrictive lung disease J98.4 [facility] [id number] [place] [address] Aug, [facility] [id number] [place] [address] Aug, [facility] [id number] [address] Aug, [facility] [id number] [place] [address] Aug, [facility] [id number] [place] [address] Aug, Back pain M54.9 [facility] [id number] [place] [address] Jul, Anemia D64.9 and Prediabetes R73.09 [facility] [id number] [place] [address] Jul, Back pain M54.9 [facility] [id number] [place] [address] Jul, Back pain M54.9 [facility] [id number] [place] [address] Jul, [facility] [id number] [place] [address] 05 Jul, 2015 Bronchitis J40 and Anemia D64.9 [facility] [id number] [place] [address] Jun, [facility] [id number] [place] [address] Jun, [facility] [id number] [place] [address] Jun, Bronchitis J40 and Anemia D64.9 [facility] [id number] [place] [address] Jun, [facility] [id number] [place] [address] Jun, Back pain M54.9 [facility] [id number] [place] [address] Jun, Anemia D64.9 [facility] [id number] [place] [address] Jun, Restrictive lung disease J98.4 ; Anemia D64.9 ; Hypothyroidism E03.9 ; Cor pulmonale I27.81 and Back pain M54.9 [facility] [id number] [place] [address] May, [facility] [address] [address] Apr, Anemia D64.9 ; Encounter for immunization Z23 and Restrictive lung disease J98.4 [facility] [address] [address] Apr, [facility] [address] [id number] [place] [address] Mar, [facility] [address] [address] Mar, Iron deficiency anemia D50.9 [facility] [id number] [place] [address] Mar, [facility] [id number] [place] [address] Mar, [facility] [id number] [place] [address] Mar, Anemia D64.9 [facility] [id number] [place] [address] Mar, [facility] [id number] [place] [address] Mar, Anemia D64.9 [facility] [id number] [place] [address] Mar, Restrictive lung disease J98.4 and Anemia D64.9 [facility] [id number] [place] [address] Mar, [facility] [id number] [place] [address] Mar, Anemia D64.9 [facility] [id number] [place] [address] Mar, Anemia D64.9 [facility] [id number] [place] [address] Mar, [facility] [id number] [place] [address] Mar, Diabetes mellitus E11.9 ; Bronchitis J40 and Anemia D64.9 [facility] [id number] [place] [address] Feb, [facility] [id number] [place] [address] Feb, [facility] [address] [address] Feb, [facility] [id number] [place] [address] Feb, [facility] [id number] [place] [address] Jan, [facility] [id number] [place] [address] Jan, [facility] [id number] [place] [address] Dec, Venous insufficiency 459.81 [facility] [id number] [place] [address] Dec, [facility] [id number] [place] [address] Dec, [facility] [id number] [place] [address] Dec, Coronary atherosclerosis of unspecified type of vessel, [place] or graft 414.00 ; Unspecified anemia 285.9 and Generalized osteoarthrosis, unspecified site 715.00 [facility] [address] [address] Nov, [facility] [id number] [place] [address] Nov, [facility] [id number] [place] [address] Nov, [facility] [id number] [place] [address] October, [facility] [id number] [place] [address] October, Acute bronchitis 466.0 and Shortness of breath 786.05 [facility] [id number] [place] [address] Sep, [facility] [id number] [place] [address] Sep, [facility] [id number] [place] [address] Aug, [facility] [id number] [place] [address] Aug, [facility] [address] [address] Jul, [facility] [id number] [place] [address] Jul, [facility] [id number] [address] Jul, [facility] [id number] [place] [address] Jul, [facility] [address] [address] Jun, [facility] [id number] [place] [address] Jun, [facility] [place] [facility] [address] [id number] [place] [address] Jun, [facility] [place] [facility] [address] [id number] [place] [address] Jun, [facility] [place] [facility] [address] [facility] [id number] [place] [address] Jun, [facility] [place] [facility] [address] [id number] [place] [address] Jun, [facility] [place] [facility] [address] [id number] [place] [address] May, [facility] [place] [facility] [address] [id number] [place] [address] May, [facility] [place] [facility] [address] [facility] [id number] [place] [address] May, [facility] [place] [facility] [address] [facility] [id number] [place] [address] May, [facility] [place] [facility] [address] [facility] [id number] [place] [address] Apr, [facility] [place] [facility] [address] [facility] [id number] [place] [address] Apr, [facility] [place] [facility] [address] [id number] [place] [address] Apr, [facility] [place] [facility] [address] [id number] [place] [address] Apr, [facility] [place] [facility] [address] [id number] [place] [address] Apr, [facility] [place] [facility] [address] [facility] [id number] [place] [address] Apr, [facility] [place] [facility] [address] [facility] [id number] [place] [address] Mar, [facility] [place] [facility] [address] [id number] [place] [address] Mar, [facility] [place] [facility] [address] [id number] [place] [address] Mar, [facility] [place] [facility] [address] [id number] [place] [address] Mar, [facility] [place] [facility] [address] [id number] [place] [address] Mar, [facility] [place] [facility] [address] [id number] [place] [address] Mar, [facility] [place] [facility] [address] [id number] [place] [address] Mar, [facility] [place] [facility] [address] [id number] [place] [address] Mar, [facility] [place] [facility] [address] [id number] [place] [address] Feb, [facility] [place] [facility] [address] [id number] [place] [address] Feb, [facility] [place] [facility] [address] [id number] [place] [address] Jan, [facility] [place] [facility] [address] [id number] [place] [address] Jan, [facility] [place] [facility] [address] [id number] [place] [address] Jan, [facility] [place] [facility] [address] [id number] [place] [address] Jan, [facility] [place] [facility] [address] [id number] [place] [address] Jan, [facility] [place] [facility] [address] [id number] [place] [address] Jan, [facility] [place] [facility] [address] [id number] [place] [address] Dec, [facility] [place] [facility] [address] [id number] [place] [address] Dec, [facility] [place] [facility] [address] [id number] [place] [address] Dec, [facility] [place] [facility] [address] [id number] [place] [address] Dec, [facility] [place] [facility] [address] [id number] [place] [address] Nov, [facility] [place] [facility] [address] [id number] [place] [address] Nov, [facility] [place] [facility] [address] [id number] [place] [address] Nov, [facility] [place] [facility] [address] [id number] [place] [address] Nov, [facility] [place] [facility] [address] [id number] [place] [address] Nov, [facility] [place] [facility] [address] [id number] [place] [address] Nov, [facility] [place] [facility] [address] [id number] [place] [address] Nov, [facility] [place] [facility] [address] [id number] [place] [address] Nov, [facility] [place] [facility] [address] [id number] [place] [address] Nov, [facility] [place] [facility] [address] [id number] [place] [address] Nov, [facility] [place] [facility] [address] [id number] [place] [address] Nov, [facility] [place] [facility] [address] [id number] [place] [address] Nov, [facility] [place] [facility] [address] [id number] [place] [address] October, [facility] [address] [id number] [place] [address] October, [facility] [place] [facility] [address] [id number] [place] [address] October, [facility] [place] [facility] [address] [id number] [place] [address] October, [facility] [place] [facility] [address] [id number] [place] [address] October, [facility] [place] [facility] [address] [id number] [place] [address] October, [facility] [place] [facility] [address] [id number] [place] [address] October, [facility] [address] [id number] [place] [address] October, [facility] [place] [facility] [address] [id number] [place] [address] October, [facility] [place] [facility] [address] [id number] [place] [address] Sep, [facility] [place] [facility] [address] [id number] [place] [address] Sep, [facility] [place] [facility] [address] [id number] [place] [address] Sep, [facility] [place] [facility] [address] [id number] [place] [address] Sep, [facility] [place] [facility] [address] [id number] [place] [address] Sep, [facility] [place] [facility] [address] [id number] [place] [address] Sep, [facility] [place] [facility] [address] [id number] [place] [address] Aug, [facility] [place] [facility] [address] [id number] [place] [address] Aug, [facility] [place] [facility] [address] [id number] [place] [address] Aug, [facility] [place] [facility] [address] [id number] [place] [address] Aug, [facility] [place] [facility] [address] [id number] [place] [address] Aug, [facility] [place] [facility] [address] [id number] [place] [address] Aug, [facility] [place] [facility] [address] [id number] [place] [address] Aug, [facility] [place] [facility] [address] [id number] [place] [address] Aug, [facility] [place] [facility] [address] [id number] [place] [address] Aug, [facility] [place] [facility] [address] [id number] [place] [address] Aug, [facility] [place] [facility] [address] [id number] [place] [address] Jul, [facility] [place] [facility] [address] [id number] [place] [address] Jul, [facility] [place] [facility] [address] [id number] [place] [address] Jun, [facility] [place] [facility] [address] [id number] [place] [address] Jun, [facility] [place] [facility] [address] [id number] [place] [address] Jun, [facility] [place] [facility] [address] [id number] [place] [address] Jun, [facility] [place] [facility] [address] [id number] [place] [address] Jun, [facility] [address] [id number] [place] [address] Jun, [facility] [place] [facility] [address] [id number] [place] [address] Jun, [facility] [place] [facility] [address] [id number] [place] [address] Jun, [facility] [place] [facility] [address] [id number] [place] [address] May, [facility] [place] [facility] [address] [id number] [place] [address] May, [facility] [place] [facility] [address] [id number] [place] [address] May, [facility] [place] [facility] [address] [id number] [place] [address] May, [facility] [place] [facility] [address] [id number] [place] [address] May, [facility] [place] [facility] [address] [id number] [place] [address] May, [facility] [place] [facility] [address] [id number] [place] [address] May, [facility] [place] [facility] [address] [id number] [place] [address] May, [facility] [place] [facility] [address] [id number] [place] [address] May, [facility] [place] [facility] [address] [id number] [place] [address] Apr, [facility] [place] [facility] [address] [id number] [place] [address] Apr, [facility] [place] [facility] [address] [id number] [place] [address] Apr, [facility] [place] [facility] [address] [id number] [place] [address] Apr, 2012 [facility] [place] [facility] [address] [id number] [place] [address] Mar, 2012 [facility] [place] [facility] [address] [id number] [place] [address] Mar, 2012 [facility] [place] [facility] [address] [id number] [place] [address] Mar, 2012 [facility] [place] [facility] [address] [id number] [place] [address] Mar, 2012 [facility] [place] [facility] [address] [id number] [place] [address] Mar, 2012 [facility] [place] [facility] [address] [id number] [place] [address] Mar, 2012 [facility] [place] [facility] [address] [id number] [place] [address] Mar, 2012 [facility] [place] [facility] [address] [id number] [place] [address] Mar, 2012 [facility] [place] [facility] [address] [id number] [place] [address] Mar, 2012 [facility] [place] [facility] [address] [id number] [place] [address] Mar, 2012 [facility] [place] [facility] [address] [id number] [place] [address] Mar, 2012 [facility] [place] [facility] [address] [id number] [address] Mar, 2012 [facility] [place] [facility] [address] [id number] [place] [address] Mar, 2012 [facility] [place] [facility] [address] [id number] [place] [address] Mar, 2012 [facility] [place] [facility] [address] [id number] [place] [address] Mar, 2012 [facility] [place] [facility] [address] [id number] [place] [address] 18 Mar, 2012 [facility] [place] [facility] [address] [id number] [place] [address] 17 Mar, 2012 [facility] [place] [facility] [address] [id number] [place] [address] 17 Mar, 2012 [facility] [place] [facility] [address] [id number] [place] [address] 15 Mar, 2012 [facility] [place] [facility] [address] [id number] [place] [address] 15 Mar, 2012 [facility] [place] [facility] [address] [id number] [place] [address] 14 Mar, 2012 [facility] [place] [facility] [address] [id number] [place] [address] 14 Mar, 2012 [facility] [place] [facility] [address] [id number] [place] [address] 14 Mar, 2012 [facility] [place] [facility] [address] [id number] [place] [address] 14 Mar, 2012 [facility] [place] [facility] [address] [id number] [address] 12 Mar, 2012 [facility] [place] [facility] [address] [id number] [address] 11 Mar, 2012 [facility] [place] [facility] [address] [id number] [address] 11 Mar, 2012 [facility] [place] [facility] [address] [id number] [place] [address] 10 Mar, 2012 [facility] [place] [facility] [address] [id number] [address] 10 Mar, 2012 [facility] [place] [facility] [address] [id number] [address] 10 Mar, 2012 [facility] [place] [facility] [address] [id number] [place] [address] Mar, [facility] [place] [facility] [address] [id number] [place] [address] Mar, [facility] [place] [facility] [address] [id number] [place] [address] Mar, [facility] [place] [facility] [address] [id number] [place] [address] Feb, [facility] [place] [facility] [address] [id number] [place] [address] Feb, [facility] [place] [facility] [address] [id number] [place] [address] Feb, [facility] [place] [facility] [address] [id number] [place] [address] Feb, [facility] [place] [facility] [address] [id number] [place] [address] Jan, [facility] [place] [facility] [address] [id number] [place] [address] Jan, [facility] [place] [facility] [address] [id number] [place] [address] Jan, [facility] [place] [facility] [address] [id number] [place] [address] Jan, [facility] [place] [facility] [address] [id number] [place] [address] Jan, [facility] [place] [facility] [address] [id number] [place] [address] Jan, [facility] [place] [facility] [address] [id number] [place] [address] Dec, [facility] [place] [facility] [address] [id number] [place] [address] Dec, [facility] [place] [facility] [address] [id number] [place] [address] Dec, [facility] [place] [facility] [address] [id number] [place] [address] Dec, [facility] [place] [facility] [address] [id number] [place] [address] Dec, [facility] [place] [facility] [address] [id number] [place] [address] Dec, [facility] [place] [facility] [address] [id number] [place] [address] Dec, [facility] [place] [facility] [address] [id number] [place] [address] Dec, [facility] [place] [facility] [address] [id number] [place] [address] Dec, [facility] [address] [id number] [place] [address] Dec, [facility] [place] [facility] [address] [id number] [place] [address] Dec, [facility] [address] [id number] [place] [address] October, [facility] [place] [facility] [address] [id number] [place] [address] October, [facility] [place] [facility] [address] [id number] [place] [address] October, [facility] [place] [facility] [address] [id number] [place] [address] October, [facility] [place] [facility] [address] [id number] [place] [address] Sep, [facility] [place] [facility] [address] [id number] [place] [address] Sep, [facility] [place] [facility] [address] [id number] [place] [address] Sep, [facility] [place] [facility] [address] [id number] [place] [address] Sep, [facility] [address] [facility] [id number] [address] Sep, [facility] [address] [facility] [id number] [address] Sep, [facility] [address] [id number] [address] Sep, [facility] [id number] [address] Sep, [facility] [address] [id number] [address] Sep, [facility] [address] [id number] [address] Sep, [facility] [address] [id number] [address] Sep, IMMUNIZATIONS No Known Immunizations SOCIAL HISTORY Never Assessed REASON FOR VISIT [facility] PLAN OF CARE VITAL SIGNS MEDICATIONS No [...] cramps--[facility] 03/04/16 Hospitalization History R[facility] Cellulitis, Hypokalemia, anemia-[facility] 09/29/15 Hospitalization History Lower edema 09/2016 Hospitalization History Received stitches ER 10/2016 Hospitalization History hallucinations/ dimished mental capasity 03/19-03/21/18
[2018-12-04 18:52] LABS: BASOPHILS % (AUTO) 0 % (0-10); EOSINOPHILS # (AUTO) 0.2 10^3/uL (0.0-0.3); EOSINOPHILS % (AUTO) 2 % (0-10); HEMATOCRIT 33 % (35-52); HEMOGLOBIN 9.2 G/DL (11.5-16.0); LYMPHOCYTES # (AUTO) 1.3 X 10^3 (1.0-4.0); LYMPHOCYTES % (AUTO) 15 % (12-44); MEAN CORPUSCULAR HEMOGLOBIN 28 PG (25-34); MEAN CORPUSCULAR HGB CONC 28 G/DL (32-36); MEAN CORPUSCULAR VOLUME 98 FL (80-99); MONOCYTES # (AUTO) 0.6 X 10^3 (0.0-1.0); MONOCYTES % (AUTO) 7 % (0-12); NEUTROPHILS # (AUTO) 6.8 X 10^3 (1.8-7.8); NEUTROPHILS % (AUTO) 76 % (42-75); PLATELET COUNT 202 10^3/uL (130-400); RED CELL DISTRIBUTION WIDTH 15.1 % (10.0-14.5)
[2018-12-04 19:04] LABS: PROTHROMBIN TIME PATIENT 13.7 SEC (12.2-14.7)
[2018-12-04 19:12] LABS: ALANINE AMINOTRANSFERASE 12 U/L (0-55); ALBUMIN 3.3 GM/DL (3.2-4.5); ALKALINE PHOSPHATASE 94 U/L (40-136); BILIRUBIN,TOTAL 0.5 MG/DL (0.1-1.0); BUN/CREATININE RATIO 15; CALCIUM 8.5 MG/DL (8.5-10.1); CARBON DIOXIDE 37 MMOL/L (21-32); CHLORIDE 95 MMOL/L (98-107); CREATININE SERUM 0.95 MG/DL (0.60-1.30); GFR ESTIMATED 59; GLUCOSE 92 MG/DL (70-105); POTASSIUM 3.4 MMOL/L (3.6-5.0); SODIUM 141 MMOL/L (135-145); TOTAL PROTEIN 6.6 GM/DL (6.4-8.2)
--- NOTE | 2018-12-04 19:24 | Diagnostic Imaging Report ---
INDICATION: Difficulty breathing, COPD, and hypoxia. FINDINGS: Body habitus limits exam sensitivity. The heart is enlarged similar to the prior. There is prominence of the pericardial and mediastinal fat with an elevated right diaphragm as a chronic finding. No definite pulmonary consolidation. When correlated with previous radiographs and chest CTs, no obvious change. IMPRESSION: Body habitus substantially limits exam sensitivity. No definite change from previous exams. Dictated by: Dictated on workstation # [id number]
[2018-12-04] MEDS ORDERED: RT-ALBUTEROL SULF 2.5 MG/3 ML PRE-MIX VIAL INH STA (19:36)
--- NOTE | 2018-12-04 19:53 | NUR ---
Patient assisted up to bedside commode with assistance x 3 personnel. Patient's head is covered in lice. Dr. Layton notified.
[2018-12-04 19:54] LABS: BILIRUBIN,URINE NEGATIVE (NEGATIVE); COLOR,URINE YELLOW; GLUCOSE, URINE (UA) NEGATIVE (NEGATIVE); KETONES,URINE NEGATIVE (NEGATIVE); LEUKOCYTE ESTERASE ,URINE 2+ (NEGATIVE); NITRITE,URINE NEGATIVE (NEGATIVE); PH,URINE 6 (5-9); PROTEIN,URINE 2+ (NEGATIVE); UROBILINOGEN,URINE NORMAL (NORMAL)
[2018-12-04 19:59] LABS: CLARITY,URINE SL CLOUDY
[2018-12-04 19:59] LABS: ABG BASE EXCESS 12.9 MMOL/L (-2.5-2.5); ABG OXYGEN SATURATION 94 % (94-100); ABG PH 7.36 (7.37-7.43); ABG PO2 68 MMHG (79-93); ABG TCO2 40.8 MMOL/L (21.0-31.0)
[2018-12-04 20:00] LABS: ALLENS TEST POSITIVE
[2018-12-04 20:01] LABS: BACTERIA,URINE FEW /HPF; HYALINE CASTS, URINE RARE /LPF; RBC,URINE RARE /HPF
[2018-12-04 20:01] LABS: ABG PCO2 71 MMHG (35-45); INSPIRED O2 50% FIO2 25LPM VAPO; PATIENT TEMP 99.7; VENTILATOR YES
[2018-12-04] MEDS ORDERED: methylPREDNISolone 125 MG (Solu-MEDROL) VIAL IV STA (20:31)
[2018-12-04] MEDS ORDERED: oxyCODONE/APAP 5/325MG (PERCOCET 5) TABLET PO ONE (20:45)
[2018-12-04 21:25] VITALS: BP 168/68
[2018-12-04 21:28] VITALS: BP 168/68
[2018-12-04] MEDS ORDERED: PATCH REMOVAL TP SCH (21:30)
[2018-12-04] MEDS ORDERED: fentaNYL PATCH 75 MCG (DURAGESIC) TOP SCH (21:30)
[2018-12-04] MEDS ORDERED: PERMETHRIN (NIX) 1% LOTION 60 ML BTL TOP ONE (21:30)
[2018-12-05 00:05] VITALS: BP 161/73
[2018-12-05] MEDS ORDERED: RT-ALBUTEROL/IPRATROPIUM 3 ML (DUONEB) VIAL ONE (02:46)
[2018-12-05] MEDS: RT-ALBUTEROL/IPRATROPIUM 3 ML (DUONEB) VIAL INH SCH ×6 (02:51→22:49)
[2018-12-05 04:05] VITALS: BP 137/61
[2018-12-05] MEDS: methylPREDNISolone 125 MG (Solu-MEDROL) VIAL IV SCH ×4 (04:41→20:16)
[2018-12-05 06:45] LABS: BASOPHILS % (AUTO) 0 % (0-10); EOSINOPHILS % (AUTO) 0 % (0-10); HEMATOCRIT 34 % (35-52); HEMOGLOBIN 9.2 G/DL (11.5-16.0); LYMPHOCYTES # (AUTO) 0.3 X 10^3 (1.0-4.0); LYMPHOCYTES % (AUTO) 5 % (12-44); MEAN CORPUSCULAR HEMOGLOBIN 27 PG (25-34); MEAN CORPUSCULAR HGB CONC 27 G/DL (32-36); MEAN CORPUSCULAR VOLUME 99 FL (80-99); MEAN PLATELET VOLUME 9.6 FL (7.4-10.4); MONOCYTES # (AUTO) 0.1 X 10^3 (0.0-1.0); MONOCYTES % (AUTO) 1 % (0-12); NEUTROPHILS # (AUTO) 6.8 X 10^3 (1.8-7.8); NEUTROPHILS % (AUTO) 95 % (42-75); PLATELET COUNT 160 10^3/uL (130-400); RED CELL DISTRIBUTION WIDTH 14.9 % (10.0-14.5); WHITE BLOOD COUNT 7.2 10^3/uL (4.3-11.0)
[2018-12-05 06:55] LABS: ABG BASE EXCESS 13.1 MMOL/L (-2.5-2.5); ABG OXYGEN SATURATION 97 % (94-100); ABG PO2 82 MMHG (79-93); ABG TCO2 42.5 MMOL/L (21.0-31.0)
[2018-12-05 06:57] LABS: ALLENS TEST POSITIVE
[2018-12-05 06:58] LABS: ABG PCO2 80 MMHG (35-45); ABG PH 7.31 (7.37-7.43); INSPIRED O2 25L 50% VAPO; PATIENT TEMP 96.7; VENTILATOR NO
--- NOTE | 2018-12-05 06:59 | Pulmonary Consultation ---
History of Present Illness History of Present Illness Date of Consultation 12/05/18 06:45 Time Seen by Provider: 06:45 Date of Admission History of Present Illness 63yo with hx of COPD presented secondary to worsening SOB, cough and sinus congestion pt was found be very hypoxic and was placed on oxygen at 4L NC. Pt has had subjective fevers and chills. No abd pain/chest pain. Allergies and Home Medications Allergies Coded Allergies: ceftriaxone (Verified Allergy, Unknown, 08/02/17) ibuprofen (Verified Allergy, Unknown, PT TAKES ASA AT HOME, 08/02/17) PER MED REC diazepam (Verified Adverse Reaction, Severe, 12/04/18) Home Medications Albuterol Sulfate 1 Puff Puff, 2 PUFF INH Q6H PRN for SHORTNESS OF BREATH, (Reported) Aspirin 81 Mg Tablet.dr, 81 MG PO DAILY, (Reported) Atorvastatin Calcium 80 Mg Tablet, 80 MG PO HS, (Reported) Bimatoprost 2.5 Ml Drops, 1 DROP OU HS, (Reported) Fentanyl 1 Each Patch.td72, 75 MCG TD Q72H, (Reported) Furosemide 80 Mg Tablet, 80 MG PO DAILY PRN for SWELLING, (Reported) Isosorbide Mononitrate 30 Mg Tab.er.24h, 30 MG PO DAILY, (Reported) Levothyroxine Sodium 200 Mcg Tablet, 200 MCG PO DAILY, (Reported) Metformin HCl 500 Mg Tablet, 500 MG PO BID, (Reported) Metoprolol Tartrate 25 Mg Tablet, 25 MG PO BID, (Reported) Oxycodone HCl/Acetaminophen 1 Each Tablet, 1 TAB PO QID PRN for PAIN-MODERATE, (Reported) Potassium Chloride 20 Meq Tab.er.prt, 20 MEQ PO DAILY, (Reported) Past Vcgthhi-Tzmymm-Grpgtc Hx Past Med/Social Hx: Reviewed Nursing Past Med/Soc Hx Patient Social History Alcohol Use: Denies Use Recreational Drug Use: No Smoking Status: Never a Smoker 2nd Hand Smoke Exposure: No Recent Foreign Travel: No Contact w/Someone Who Travel: No Recent Infectious Disease Expo: No Recent Hopitalizations: No Immunizations Up To Date Tetanus Booster (TDap): Unknown Date of Pneumonia Vaccine: Mar 13, 2013 Date of Influenza Vaccine: Mar 28, 2018 Seasonal Allergies Seasonal Allergies: No Past Medical History Surgeries: Yes (COLON POLYP REMOVAL, MULTIPLE HERNIA REPAIRS, D&C) Abdominal, Adenoidectomy, Bowel Surgery, Coronary Stent, Eye Surgery, Gallbladder, Tonsillectomy, Tubal Ligation Respiratory: Yes (CHRONIC DYSPNEA--USES O2 AT HOME, ESPECIALLY AT NIGHT) Sleep Apnea, COPD Cardiac: Yes (TACHYCARDIA, STENTS X 1, CHF) Atrial Fibrillation, Chronic Edema/Swelling, Coronary Artery Disease, Deep Vein Thrombosis, Heart Attack, High Cholesterol, Hypertension Neurological: No 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 Disorders: No Female 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 Disorders: Denies 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, 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 Sexually Transmitted Disease: No HIV/AIDS: No Genitourinary: Yes UTI-Chronic Gastrointestinal: Yes Abdominal Hernia, Diverticulosis, Polyps Musculoskeletal: Yes (CHRONIC GENERALIZED PAIN--NARCOTIC-DEPENDENT) Degenerate Disk Disease, Arthritis, Chronic Back Pain Endocrine: Yes (MORBID OBESITY) Hypothyroidsim, Diabetes, Non-Insulin dep HEENT: Yes Cataract, Glaucoma Loss of Vision: Denies Hearing Impairment: Denies Cancer: Yes (SQUAMOUS CELL SKIN CANCER RIGHT CHEEK 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) Skin, Colon Did You Recieve Any Treatments: Yes What Type of Treatment Did You: Surgical Intervention Psychosocial: No Integumentary: Yes (CELLULITIS; SKIN CANCER; BEDBUGS) Eczema Blood Disorders: Yes (CHRONIC ANEMIA) Adverse Reaction/Blood Tranf: No (HAS HAD BLOOD WITH NO REACTION) Family Medical History Cancer 03 MOTHER, Onset:40's - 50 Family history: Cardiovascular disease 03 FATHER, Onset:40's - 50 03 MOTHER, Onset:30's - 40 Myocardial infarction 03 MOTHER, Onset:30's - 40 No Pertinent Family Hx Review of Systems Time Seen by Provider: 07:08 Sepsis Event Evaluation Height, Weight, BMI Height: 5'2.00" Weight: 280lbs. 0.0oz. 127.986947cs; 51.2 BMI Method:Stated Exam Exam Vital Signs Date Time Temp Pulse Resp B/P (MAP) Pulse Ox O2 Delivery O2 Flow Rate FiO2 12/05/18 04:05 98.6 66 22 137/61 (86) 94 Vapotherm 50.00 25.00 12/05/18 03:00 91 20.00 50 12/05/18 01:00 75 12/05/18 00:10 94 50 12/05/18 00:05 98.7 63 28 161/73 (102) 95 Vapotherm 50.00 25.00 12/04/18 22:47 20.00 50 12/04/18 22:22 67 12/04/18 21:30 OxyMask 10.00 12/04/18 21:28 98.6 66 16 168/68 (101) 94 OxyMask 10.00 12/04/18 21:25 98.6 66 16 168/68 93 OxyMask 10.00 12/04/18 20:58 98.9 71 20 160/66 (97) 93 Vapotherm 25.00 12/04/18 20:00 96 20.00 50 12/04/18 18:41 88 Vapotherm 25.00 40 12/04/18 18:20 99 Vapotherm 25.00 40 12/04/18 18:05 96 Nasal Cannula 4.00 76 12/04/18 17:59 100.3 70 18 192/61 (104) 76 Nasal Cannula 4.00 I & O 12/05/18 07:00 Intake Total 1400 ml Balance 1400 ml Height & Weight Height: 5'2.00" Weight: 280lbs. 0.0oz. 127.595344bo; 51.2 BMI Method:Stated Capillary Refill: Less Than 3 Seconds Gastrointestinal: non tender, soft, other (morbidly obese) Results Lab Laboratory Tests 12/04/18 18:40 Assessment/Plan Assessment/Plan Acute on chronic respiratory failure -ABG- C02 71 -Repeat ABG looks worse. Will start vent to mask -repeat ABG in 1-2 hours -SVNS Q4 -Solumedrol -Check CTA of chest Morbid obesity with OHS -Pt has a home vent to mask however she is noncompliant. RLD Anemia -Monitor Medical noncompliance PATRICK WESTFALL DO Dec 05, 2018 06:59
[2018-12-05 07:04] LABS: CALCIUM 8.4 MG/DL (8.5-10.1); CREATININE SERUM 1.11 MG/DL (0.60-1.30); MAGNESIUM 1.3 MG/DL (1.8-2.4); POTASSIUM 4.3 MMOL/L (3.6-5.0)
[2018-12-05 07:05] LABS: HYPOCHROMASIA MODERATE; LYMPHOCYTES % (MANUAL) 4 %; MONOCYTES % (MANUAL) 1 %; NEUTROPHILS % (MANUAL) 95 %
[2018-12-05 08:02] VITALS: BP 171/71
[2018-12-05] MEDS ORDERED: FENT1PAT10 TD (08:25)
[2018-12-05] MEDS ORDERED: METF-397 PO (08:25)
[2018-12-05] MEDS ORDERED: POTA20TA15 PO (08:25)
[2018-12-05] MEDS ORDERED: BIMA2.5D4 OU (08:25)
[2018-12-05] MEDS ORDERED: FURO80TA3 PO (09:09)
--- NOTE | 2018-12-05 09:09 | NUR ---
SPOKE WITH THE PATIENT ABOUT HER MEDICATIONS. WE WENT OVER THE EXT MED HX AND SHE VERIFIED HOW SHE TAKES THEM. HER POTASSIUM IS FILLED FOR 2 DAILY HOWEVER SHE STATES SHE ONLY TAKES 1 TAB DAILY IN THE MORNING. SHE FILLED METOPROLOL TARTRATE BID HOWEVER DOES NOT REMEMBER TAKING IT BID. SHE IS A LITTLE UNCERTAIN SO I LEFT IT ON THE MED REC BID HOWEVER SHE HAS WRITTEN IT DOWN AND IS GOING TO DOUBLE CHECK HOW SHE TAKES IT AT HOME. IF SHE HAS BEEN TAKING IT DIFFERENTLY THAN PRESCRIBED SHE IS GOING TO VISIT WITH HER DRLucas BEFORE CHANGING WHAT SHE HAS BEEN DOING. SHE TAKES ASPIRIN 81MG DAILY OTC. SHE ALSO STATES SHE HAS PROAIR INHALER NEEDED AND STATES SHE HAS FUROSEMIDE ON HAND IF NEEDED BUT DOES NOT HAVE TO TAKE THEM VERY OFTEN.
[2018-12-05] MEDS ORDERED: FUROSEMIDE 40 MG/4 ML INJ (LASIX) IVP ONE (09:45)
[2018-12-05 10:59] LABS: ABG BASE EXCESS 13.9 MMOL/L (-2.5-2.5); ABG OXYGEN SATURATION 98 % (94-100); ABG PCO2 62 MMHG (35-45); ABG PH 7.41 (7.37-7.43); ABG PO2 85 MMHG (79-93); ABG TCO2 41.2 MMOL/L (21.0-31.0)
[2018-12-05 11:02] LABS: ALLENS TEST YES-POS; INSPIRED O2 40%; PATIENT TEMP 97.5; VENTILATOR NO
--- NOTE | 2018-12-05 11:44 | NUR ---
CM/SS responded to consult. Patient states that she lives at home with her daughter and her grandsons, daughter helps with her care. Discussed reason for waiting so long to come to the hospital with wheezing, she stated "just don't want to be here". In discussion she stated that she did not feel she had any needs that were unmet. Patient was struggling to have conversation and frustrated as it was difficult to understand her. Will revisit later and continue to follow for discharge needs.
--- NOTE | 2018-12-05 12:38 | History & Physicial (CHS) ---
HPI History of Present Illness: 63 yo female came to ER due to worsening shortness of breath over the last week. Denies fever or cough. History limited due to being on bipap at time of exam. Date seen by provider: Dec 05, 2018 Time Seen by Provider: 09:35 Attending Physician Maricel Dave MD PCP Aden Mckeon MD Consult Date of Admission Dec 04, 2018 at 20:05 Home Medications Home Medications Reviewed patient Home Medication Reconciliation performed by pharmacy medication reconciliations safety technician and/or nursing. Patients Allergies have been reviewed. Allergies Coded Allergies: ceftriaxone (Verified Allergy, Unknown, 08/02/17) ibuprofen (Verified Allergy, Unknown, PT TAKES ASA AT HOME, 08/02/17) PER MED REC diazepam (Verified Adverse Reaction, Severe, 12/04/18) QOG-Hisdrf-Wmgzkd Hx Patient Social History Alcohol Use: Denies Use Recreational Drug Use: No Smoking Status: Never a Smoker 2nd Hand Smoke Exposure: No Recent Foreign Travel: No Contact w/other who traveled: No Recent Hopitalizations: No Recent Infectious Disease Expo: No Immunizations Up To Date Tetanus Booster (TDap): Unknown Date of Pneumonia Vaccine: Mar 13, 2013 Date of Influenza Vaccine: Mar 28, 2018 Past Medical History Medical Hx: 1. COPD 2. Anemia of Chronic Disease 3. Morbid Obesity 4. 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 History of Villous adenoma sp polypectomy 6. DM- uncontrolled 7. CAD with history of PTCA Dr. De Leon 2010 8. A-flutter, possible A-Fib- did not tolerate anticogulant 9. HTN 10. HLP 11. Hypothyroidism 12. Extreme morbid obesity 13. History of DVT with intolerance to anticoagulant 14. Obesity hypoventilation syndrome 15. Chronic hypoxemic respiratory failure on home O2 16. Chronic pain/ narcotic dependent Past Surgical History 1. Infected abdominal mesh/hernia repair/fistula repair 2013 Dr. Zaman 2. Cholecystectomy 3. Tubal ligation 4. Abdominal Wall hernia repair Dr. Jonas 2003 5. D&C- Escobar 2008 6. Colonoscopy with polypectomy for colon ca (villous adenoma) 2005 Pritesh 7. Colonoscopy 2006 Pritesh 8. Tonsillectomy 9. Cardiac Cathaterization with PTCA and stent [id number] Ion to mid LAD Family Medical History Family History: Cancer 03 MOTHER, Onset:40's - 50 Family history: Cardiovascular disease 03 FATHER, Onset:40's - 50 03 MOTHER, Onset:30's - 40 Myocardial infarction 03 MOTHER, Onset:30's - 40 Review of Systems (CHC) Constitutional: No fever EENTM: nose congestion Cardiovascular: No chest pain Gastrointestinal: No abdominal pain, No constipation, No diarrhea Genitourinary: No dysuria Skin: no symptoms reported Psychiatric/Neurological: No Symptoms Reported Reviewed Test Results Reviewed Test Results Lab Laboratory Tests Test 12/04/18 18:40 12/04/18 19:47 12/04/18 19:50 12/05/18 06:35 Range/Units White Blood Count 9.0 7.2 4.3-11.0 10^3/uL Red Blood Count 3.35 L 3.40 L 4.35-5.85 10^6/uL Hemoglobin 9.2 L 9.2 L 11.5-16.0 G/DL Hematocrit 33 L 34 L 35-52 % Mean Corpuscular Volume 98 99 80-99 FL Mean Corpuscular Hemoglobin 28 27 25-34 PG Mean Corpuscular Hemoglobin Concent 28 L 27 L 32-36 G/DL Red Cell Distribution Width 15.1 H 14.9 H 10.0-14.5 % Platelet Count 202 160 130-400 10^3/uL Mean Platelet Volume 10.0 9.6 7.4-10.4 FL Neutrophils (%) (Auto) 76 H 95 H 42-75 % Lymphocytes (%) (Auto) 15 5 L 12-44 % Monocytes (%) (Auto) 7 1 0-12 % Eosinophils (%) (Auto) 2 0 0-10 % Basophils (%) (Auto) 0 0 0-10 % Neutrophils # (Auto) 6.8 6.8 1.8-7.8 X 10^3 Lymphocytes # (Auto) 1.3 0.3 L 1.0-4.0 X 10^3 Monocytes # (Auto) 0.6 0.1 0.0-1.0 X 10^3 Eosinophils # (Auto) 0.2 0.0 0.0-0.3 10^3/uL Basophils # (Auto) 0.0 0.0 0.0-0.1 10^3/uL Prothrombin Time 13.7 12.2-14.7 SEC INR Comment 1.0 0.8-1.4 Activated Partial Thromboplast Time 26 24-35 SEC Sodium Level 141 142 135-145 MMOL/L Potassium Level 3.4 L 4.3 3.6-5.0 MMOL/L Chloride Level 95 L 95 L 98-107 MMOL/L Carbon Dioxide Level 37 H 37 H 21-32 MMOL/L Anion Gap 9 10 5-14 MMOL/L Blood Urea Nitrogen 14 15 7-18 MG/DL Creatinine 0.95 1.11 0.60-1.30 MG/DL Estimat Glomerular Filtration Rate 59 49 BUN/Creatinine Ratio 15 14 Glucose Level 92 166 H 70-105 MG/DL Lactic Acid Level 1.25 0.50-2.00 MMOL/L Calcium Level 8.5 8.4 L 8.5-10.1 MG/DL Corrected Calcium 9.1 8.5-10.1 MG/DL Total Bilirubin 0.5 0.1-1.0 MG/DL Aspartate Amino Transf (AST/SGOT) 13 5-34 U/L Alanine Aminotransferase (ALT/SGPT) 12 0-55 U/L Alkaline Phosphatase 94 40-136 U/L Troponin I < 0.028 <0.028 NG/ML Total Protein 6.6 6.4-8.2 GM/DL Albumin 3.3 3.2-4.5 GM/DL Urine Color YELLOW Urine Clarity SL CLOUDY Urine pH 6 5-9 Urine Specific [place] 1.015 L 1.016-1.022 Urine Protein 2+ H NEGATIVE Urine Glucose (UA) NEGATIVE NEGATIVE Urine Ketones NEGATIVE NEGATIVE Urine Nitrite NEGATIVE NEGATIVE Urine Bilirubin NEGATIVE NEGATIVE Urine Urobilinogen NORMAL NORMAL MG/DL Urine Leukocyte Esterase 2+ H NEGATIVE Urine RBC (Auto) 1+ H NEGATIVE Urine RBC RARE /HPF Urine WBC 2-5 /HPF Urine Squamous Epithelial Cells 2-5 /HPF Urine Crystals NONE /LPF Urine Bacteria FEW H /HPF Urine Casts PRESENT /LPF Urine Hyaline Casts RARE /LPF Urine Mucus NEGATIVE /LPF Urine Culture Indicated CULTURE PENDING Blood Gas Puncture Site R RADIAL Blood Gas Patient Temperature 99.7 Arterial Blood pH 7.36 L 7.37-7.43 Arterial Blood Partial Pressure CO2 71 *H 35-45 MMHG Arterial Blood Partial Pressure O2 68 L 79-93 MMHG Arterial Blood HCO3 39 H 23-27 MMOL/L Arterial Blood Total CO2 40.8 H 21.0-31.0 MMOL/L Arterial Blood Oxygen Saturation 94 94-100 % Arterial Blood Base Excess 12.9 H -2.5-2.5 MMOL/L Blake Test POSITIVE Blood Gas Ventilator Setting YES Blood Gas Inspired Oxygen 50% FIO2 25LPM VAPO Neutrophils % (Manual) 95 % Lymphocytes % (Manual) 4 % Monocytes % (Manual) 1 % Band Neutrophils % Hypochromasia MODERATE Phosphorus Level 4.0 2.3-4.7 MG/DL Magnesium Level 1.3 L 1.8-2.4 MG/DL B-Type Natriuretic Peptide 536.0 H <100.0 PG/ML Test 12/05/18 06:45 12/05/18 10:43 Range/Units Blood Gas Puncture Site LEFT RADIAL LT RAD Blood Gas Patient Temperature 96.7 97.5 Arterial Blood pH 7.31 *L 7.41 7.37-7.43 Arterial Blood Partial Pressure CO2 80 *H 62 H 35-45 MMHG Arterial Blood Partial Pressure O2 82 85 79-93 MMHG Arterial Blood HCO3 40 H 39 H 23-27 MMOL/L Arterial Blood Total CO2 42.5 H 41.2 H 21.0-31.0 MMOL/L Arterial Blood Oxygen Saturation 97 98 94-100 % Arterial Blood Base Excess 13.1 H 13.9 H -2.5-2.5 MMOL/L Blake Test POSITIVE YES-POS Blood Gas Ventilator Setting NO NO Blood Gas Inspired Oxygen 25L 50% VAPO 40% Radiology CXR 12/04 with no acute changes, limited due to body habitus Physical Exam-([facility]C) Physical Exam Vital Signs VS - Last 72 Hours, by Label 12/04/18 12/04/18 12/04/18 12/04/18 17:59 18:05 18:20 18:41 Temp 100.3 Pulse 70 Resp 18 B/P (MAP) 192/61 (104) Pulse Ox 76 96 99 88 O2 Delivery Nasal Cannula Nasal Cannula Vapotherm Vapotherm O2 Flow Rate 4.00 4.00 25.00 25.00 FiO2 76 40 40 12/04/18 12/04/18 12/04/18 12/04/18 20:00 20:58 21:25 21:28 Temp 98.9 98.6 98.6 Pulse 71 66 66 Resp 20 16 16 B/P (MAP) 160/66 (97) 168/68 168/68 (101) Pulse Ox 96 93 93 94 O2 Delivery Vapotherm OxyMask OxyMask O2 Flow Rate 20.00 25.00 10.00 10.00 FiO2 50 12/04/18 12/04/18 12/04/18 12/05/18 21:30 22:22 22:47 00:05 Temp 98.7 Pulse 67 63 Resp 28 B/P (MAP) 161/73 (102) Pulse Ox 95 O2 Delivery OxyMask Vapotherm O2 Flow Rate 10.00 20.00 50.00 25.00 FiO2 50 12/05/18 12/05/18 12/05/18 12/05/18 00:10 01:00 03:00 04:05 Temp 98.6 Pulse 75 66 Resp 22 B/P (MAP) 137/61 (86) Pulse Ox 94 91 94 O2 Delivery Vapotherm O2 Flow Rate 20.00 50.00 25.00 FiO2 50 50 12/05/18 12/05/18 12/05/18 12/05/18 06:48 07:00 07:15 08:02 Temp 98.3 Pulse 66 64 64 Resp 12 22 B/P (MAP) 171/71 (104) Pulse Ox 97 99 100 O2 Delivery Vapotherm NIV Bilevel O2 Flow Rate 25.00 40.00 40.00 FiO2 50 12/05/18 12/05/18 08:20 11:59 Pulse 65 Resp 13 Pulse Ox 96 O2 Delivery NIV Bilevel O2 Flow Rate 30.00 FiO2 40 Capillary Refill : Less Than 3 Seconds General Appearance: mild distress, obese Respiratory: decreased breath sounds, accessory muscle use Cardiovascular: regular rate, rhythm, no murmur Gastrointestinal: normal bowel sounds, non tender Neurologic/Psychiatric: alert, normal mood/affect Skin: warm/dry, other (peeling on legs and feet) Assessment/Plan Assessment/Plan Admission Status: Inpatient Order (span 2 midnights) Reason for Inpatient Admission: COPD exacerbation requiring agressive non-invasive ventilation with multiple serious comorbidities. (1) Acute respiratory failure with hypoxia and hypercarbia Status: Acute Assessment & Plan: pH 7.36 with PCO2 71 on admit and PO2 68, on vapotherm overnight, but this am pH 7.31 and PCO2 80, started on bipap per Dr. Perkins, appreciate recommendations. Solumedrol 60 mg q6h. BNP 536, given furosemide per Dr. Perkins. (2) COPD with acute exacerbation Status: Acute Assessment & Plan: See above. (3) Lice Status: Acute Assessment & Plan: Treated with permethrin on admit, contact precautions. professional services consultant consulted for home concerns. (4) DVT prophylaxis Status: Acute Assessment & Plan: Enoxaparin Clinical Quality Measures DVT/VTE Risk/Contraindication: Risk Factor Score Per Nursin RFS Level Per Nursing on Admit: 4+=Very High MARICEL DAVE MD Dec 05, 2018 12:38
[2018-12-05] MEDS ORDERED: ENOXAPARIN 40 MG/0.4 ML (LOVENOX) SYR SQ SCH (12:45)
[2018-12-05 12:48] VITALS: BP 176/78
[2018-12-05] MEDS: ENOXAPARIN 60 MG/0.6 ML (LOVENOX) SYR SC SCH (13:35)
[2018-12-05 16:00] VITALS: BP 146/76
[2018-12-05] MEDS: metFORMIN 500 MG (GLUCOPHAGE) TAB PO SCH (16:14)
[2018-12-05] MEDS: oxyCODONE/APAP 10/325MG (PERCOCET 10) TABLET PO PRN (16:14)
[2018-12-05] MEDS: RT-BUDESONIDE NEBS 0.5 MG/2ML (PULMICORT) AMP INH SCH (19:25)
[2018-12-05 19:26] VITALS: BP 154/76
[2018-12-05] MEDS ORDERED: IOHEXOL 350 MG/ML 150 ML (OMNIPAQUE 350) VIAL IV ONE (19:30)
[2018-12-05] MEDS ORDERED: NS 100 ML (IVPB) BAG IV ONE (19:30)
[2018-12-05] MEDS ORDERED: HOLD METFORMIN - RECEIVED CONTRAST 20 ML VIAL IV SCH (19:30)
--- NOTE | 2018-12-05 19:45 | Diagnostic Imaging Report ---
PROCEDURE: CT angiography of the chest with contrast. TECHNIQUE: Multiple contiguous axial images were obtained through the chest after uneventful bolus administration of intravenous contrast. 2D reconstructed CTA MIP acquisitions were also performed. Auto Exposure Controls were utilized during the CT exam to meet ALARA standards for radiation dose reduction. INDICATION: COPD and shortness of air with hypoxia. Correlation is made with CT angiogram of the chest performed 03/20/2018. FINDINGS: There is good opacification of the central pulmonary arteries. More distal pulmonary arteries are somewhat limited due to patient respiratory motion. There is dilatation of the main pulmonary artery as well as the main right and left pulmonary arteries perhaps owing to a pulmonary arterial hypertension. No filling defects within the central pulmonary arteries are seen. Thoracic aorta is normal caliber. There is no dissection. The heart is enlarged. There is no pericardial or pleural fluid identified. There are regions of subsegmental atelectasis in bilateral upper and lower lobes. No parenchymal mass is seen. Upper abdomen is unremarkable. IMPRESSION: Somewhat limited study due to patient body habitus and respiratory motion. No central pulmonary emboli are detected. There is subsegmental atelectasis in bilateral upper and lower lobes. No chest effusion or lymphadenopathy is detected. Dictated by: Dictated on workstation # [id number]
[2018-12-05] MEDS: ATORVASTATIN 80 MG (LIPITOR) TABLET PO SCH (20:16)
[2018-12-05] MEDS: meTOprolol TARTRATE 25 MG (LOPRESSOR) TABLET PO SCH (20:17)
[2018-12-05] MEDS: LATANOPROST 0.005% (XALATAN) OPHTH SOLN 2.5 ML OU SCH (20:19)
[2018-12-05] MEDS ORDERED: NON-FORMULARY MEDICATION 1 EA EA (Metformin HCl 500 MG) PO SCH (21:00)
[2018-12-05] MEDS ORDERED: NON-FORMULARY MEDICATION 1 EA EA (Bimatoprost (Lumigan) 1 DROP) OU SCH (21:00)
[2018-12-06] VITALS (7 sets, daily range): BP systolic 139–160; BP diastolic 67–81
[2018-12-06] MEDS: oxyCODONE/APAP 10/325MG (PERCOCET 10) TABLET PO PRN ×3 (00:13→20:08)
[2018-12-06] MEDS: ENOXAPARIN 60 MG/0.6 ML (LOVENOX) SYR SC SCH ×2 (00:21→13:42)
[2018-12-06] MEDS: RT-ALBUTEROL/IPRATROPIUM 3 ML (DUONEB) VIAL INH SCH ×6 (03:05→23:14)
[2018-12-06] MEDS: methylPREDNISolone 125 MG (Solu-MEDROL) VIAL IV SCH (03:28)
[2018-12-06] MEDS: LEVOTHYROXINE 100 MCG (LEVOTHROID) TAB PO SCH (06:04)
[2018-12-06] MEDS: RT-BUDESONIDE NEBS 0.5 MG/2ML (PULMICORT) AMP INH SCH ×2 (06:33→19:40)
--- NOTE | 2018-12-06 07:10 | Pulmonary Progress Note ---
Subjective Time Seen by a Provider: 07:10 Subjective/Events-last exam Pt is on BiPAP currently. Sepsis Event Evaluation Height, Weight, BMI Height: 5'2.00" Weight: 315lbs. 0.0oz. 142.457663bm; 51.2 BMI Method:Stated Focused Exam Lactate Level 12/04/18 18:40: Lactic Acid Level 1.25 Exam Exam Vital Signs Date Time Temp Pulse Resp B/P (MAP) Pulse Ox O2 Delivery O2 Flow Rate FiO2 12/06/18 06:37 93 NIV Bilevel 35 12/06/18 06:34 60 16 92 35.00 12/06/18 03:52 97.6 66 16 158/75 (102) 92 NIV Bilevel 30.00 12/06/18 03:06 65 16 94 35.00 12/06/18 01:00 57 12/06/18 00:29 98.8 69 24 150/72 (98) 93 NIV Bilevel 30.00 12/05/18 22:58 66 17 95 35.00 12/05/18 20:00 NIV Bilevel 40 12/05/18 19:30 78 15 95 35.00 12/05/18 19:26 98.5 71 22 154/76 (102) 95 NIV Bilevel 30.00 12/05/18 18:58 83 12/05/18 16:55 71 17 89 35.00 12/05/18 16:00 98.1 78 18 146/76 (99) 93 NIV Bilevel 30.00 12/05/18 13:11 75 12/05/18 12:48 97.7 85 22 176/78 (110) 95 NIV Bilevel 30.00 12/05/18 11:59 65 13 96 30.00 12/05/18 08:20 NIV Bilevel 40 12/05/18 08:02 98.3 64 22 171/71 (104) 100 NIV Bilevel 40.00 12/05/18 07:15 64 12 99 40.00 I & O 12/06/18 07:00 Intake Total 1350 ml Output Total 4350 ml Balance -3000 ml Height & Weight Height: 5'2.00" Weight: 315lbs. 0.0oz. 142.092795ea; 51.2 BMI Method:Stated General Appearance: Anxious, Chronically ill, Mild Distress, Obese HEENT: PERRL/EOMI, Pharynx Normal Neck: Non Tender, Supple Respiratory: Accessory Muscle Use, Crackles, Decreased Breath Sounds, Respiratory Distress Cardiovascular: Regular Rate, Rhythm, No Edema Capillary Refill: Less Than 3 Seconds Gastrointestinal: normal bowel sounds, non tender Extremity: Normal Capillary Refill, No Pedal Edema Neurologic/Psychiatric: Alert Skin: Normal Color, Warm/Dry Results Lab Laboratory Tests 12/04/18 18:40 12/05/18 06:35 Assessment/Plan Assessment/Plan Acute on chronic respiratory failure -ABG- C02 71 -Repeat ABG looks worse. BiPAP QHS and PRN -repeat ABG -SVNS Q4 -Solumedrol - decrease to 40 Q6 - CTA of chest - reviewed -Give 40mg of IV Lasix daily Morbid obesity with OHS -Pt has a home vent to mask however she is noncompliant. RLD Anemia -Monitor Medical noncompliance PATRICK WESTFALL DO Dec 06, 2018 07:10
[2018-12-06 07:56] LABS: ABG BASE EXCESS 17.8 MMOL/L (-2.5-2.5); ABG OXYGEN SATURATION 97 % (94-100); ABG PCO2 67 MMHG (35-45); ABG PH 7.43 (7.37-7.43); ABG PO2 78 MMHG (79-93); ABG TCO2 45.6 MMOL/L (21.0-31.0)
[2018-12-06 08:12] LABS: HEMOGLOBIN 8.9 G/DL (11.5-16.0); MEAN PLATELET VOLUME 9.4 FL (7.4-10.4); RED CELL DISTRIBUTION WIDTH 15.2 % (10.0-14.5); WHITE BLOOD COUNT 6.2 10^3/uL (4.3-11.0)
[2018-12-06] MEDS: ISOSORBIDE MONONITRATE 30 MG (IMDUR) TAB PO SCH (08:12)
[2018-12-06] MEDS: FUROSEMIDE 40 MG/4 ML INJ (LASIX) IVP SCH (08:12)
[2018-12-06] MEDS: ASPIRIN E.C. 81 MG (ECOTRIN) TAB PO SCH (08:12)
[2018-12-06] MEDS: methylPREDNISolone 40 MG/ML (Solu-MEDROL) VIAL IV SCH ×3 (08:12→20:07)
[2018-12-06] MEDS: meTOprolol TARTRATE 25 MG (LOPRESSOR) TABLET PO SCH ×2 (08:12→20:07)
[2018-12-06] MEDS: KCL 20 MEQ TAB (K-DUR) PO SCH (08:13)
[2018-12-06 08:17] LABS: ALLENS TEST POSITIVE; INSPIRED O2 25% BIPAP; PATIENT TEMP 97.9; VENTILATOR NO
--- NOTE | 2018-12-06 08:20 | NUR ---
HECTOR FROM LAB CALLED WITH CRITICAL HCO3 LEVEL OF 44. RESULTS GIVEN TO PATIENT'S RN VERA
[2018-12-06 08:35] LABS: CALCIUM 8.7 MG/DL (8.5-10.1); CREATININE SERUM 1.08 MG/DL (0.60-1.30); POTASSIUM 3.3 MMOL/L (3.6-5.0)
[2018-12-06] MEDS ORDERED: NON-FORMULARY MEDICATION 1 EA EA (Levothyroxine Sodium 200 MCG) PO SCH (09:00)
--- NOTE | 2018-12-06 14:10 | Progress Note (SOAP) ---
Subjective Subjective/Events-last exam Afebrile, doing much better this am after using bipap yesterday. Is on vapotherm now, feeling better. Review of Systems Date Seen by Provider: Dec 06, 2018 Time Seen by Provider: 10:10 Focused Exam Lactate Level 12/04/18 18:40: Lactic Acid Level 1.25 Objective Exam Last Set of Vital Signs Vital Signs Date Time Temp Pulse Resp B/P (MAP) Pulse Ox O2 Delivery O2 Flow Rate FiO2 12/06/18 12:28 67 12/06/18 12:00 97.6 18 139/72 (94) 91 Vapotherm 30.00 20.00 12/06/18 11:29 35 Capillary Refill : Less Than 3 Seconds I&O Intake and Output 12/06/18 00:00 Intake Total 800 ml Output Total 3850 ml Balance -3050 ml Intake Oral 800 ml Output Urine Total 3850 ml # Voids 1 General: Alert, Mild Distress Lungs: Other (distant breath sounds, difficult to hear given body habitus and isolation stethoscope) Heart: Regular Rate, No Murmurs Neuro: Normal Speech Psych/Mental Status: Mental Status NL Results/Procedures Lab Laboratory Tests 12/06/18 07:48: Blood Gas Puncture Site RIGHT RADIAL, Blood Gas Patient Temperature 97.9, Arterial Blood pH 7.43, Arterial Blood Partial Pressure CO2 67H, Arterial Blood Partial Pressure O2 78L, Arterial Blood HCO3 44*H, Arterial Blood Total CO2 45.6H, Arterial Blood Oxygen Saturation 97, Arterial Blood Base Excess 17.8H, Blake Test POSITIVE, Blood Gas Ventilator Setting NO, Blood Gas Inspired Oxygen 25% BIPAP 12/06/18 08:05: White Blood Count 6.2, Red Blood Count 3.29L, Hemoglobin 8.9L, Hematocrit 31L, Mean Corpuscular Volume 95, Mean Corpuscular Hemoglobin 27, Mean Corpuscular Hemoglobin Concent 28L, Red Cell Distribution Width 15.2H, Platelet Count 200, Mean Platelet Volume 9.4, Sodium Level 141, Potassium Level 3.3L, Chloride Level 90L, Carbon Dioxide Level 40H, Anion Gap 11, Blood Urea Nitrogen 18, Creatinine 1.08, Estimat Glomerular Filtration Rate 51, BUN/Creatinine Ratio 17, Glucose Level 140H, Calcium Level 8.7 Microbiology 12/04/18 Blood Culture - Preliminary, Resulted No growth 12/04/18 Urine Culture - Final, Complete 3 or more isolates Radiology CXR 12/04 with no acute changes, limited due to body habitus Assessment/Plan Assessment/Plan (1) Acute respiratory failure with hypoxia and hypercarbia Status: Acute Assessment & Plan: pH 7.36 with PCO2 71 on admit and PO2 68, on vapotherm overnight, but this am pH 7.31 and PCO2 80, started on bipap per Dr. Perkins, appreciate recommendations. Solumedrol 60 mg q6h. BNP 536, given furosemide per Dr. Perkins. 12/06 much improved this am, switched to vapotherm and doing well (2) COPD with acute exacerbation Status: Acute Assessment & Plan: See above. (3) Lice Status: Acute Assessment & Plan: Treated with permethrin on admit, contact precautions. account services specialist consulted for home concerns. (4) DVT prophylaxis Status: Acute Assessment & Plan: Enoxaparin Clinical Quality Measures DVT/VTE Risk/Contraindication: Risk Factor Score Per Nursin RFS Level Per Nursing on Admit: 4+=Very High LOY DAVE MD Dec 06, 2018 14:10
--- NOTE | 2018-12-06 14:56 | NUR ---
Pt is in isolation for head lice. RN advised not to visit at this time. Spiritual Affiliation unknown.
[2018-12-06] MEDS: ATORVASTATIN 80 MG (LIPITOR) TABLET PO SCH (20:07)
[2018-12-06] MEDS: LATANOPROST 0.005% (XALATAN) OPHTH SOLN 2.5 ML OU SCH (21:48)
[2018-12-07] VITALS (7 sets, daily range): BP systolic 140–167; BP diastolic 59–82
[2018-12-07] MEDS: methylPREDNISolone 40 MG/ML (Solu-MEDROL) VIAL IV SCH ×4 (01:47→20:36)
[2018-12-07] MEDS: ENOXAPARIN 60 MG/0.6 ML (LOVENOX) SYR SC SCH ×2 (01:47→14:15)
[2018-12-07] MEDS: LEVOTHYROXINE 100 MCG (LEVOTHROID) TAB PO SCH (06:32)
[2018-12-07 07:25] LABS: HEMOGLOBIN 8.8 G/DL (11.5-16.0); MEAN PLATELET VOLUME 10.1 FL (7.4-10.4); WHITE BLOOD COUNT 5.3 10^3/uL (4.3-11.0)
[2018-12-07 07:43] LABS: CALCIUM 8.4 MG/DL (8.5-10.1); CREATININE SERUM 1.13 MG/DL (0.60-1.30); POTASSIUM 3.5 MMOL/L (3.6-5.0)
[2018-12-07] MEDS: ASPIRIN E.C. 81 MG (ECOTRIN) TAB PO SCH (08:12)
[2018-12-07] MEDS: FUROSEMIDE 40 MG/4 ML INJ (LASIX) IVP SCH (08:12)
[2018-12-07] MEDS: KCL 20 MEQ TAB (K-DUR) PO SCH (08:12)
[2018-12-07] MEDS: meTOprolol TARTRATE 25 MG (LOPRESSOR) TABLET PO SCH ×2 (08:12→20:36)
[2018-12-07] MEDS: ISOSORBIDE MONONITRATE 30 MG (IMDUR) TAB PO SCH (08:13)
[2018-12-07] MEDS: RT-ALBUTEROL/IPRATROPIUM 3 ML (DUONEB) VIAL INH SCH ×4 (08:25→21:50)
[2018-12-07] MEDS: RT-BUDESONIDE NEBS 0.5 MG/2ML (PULMICORT) AMP INH SCH ×2 (08:25→21:50)
[2018-12-07] MEDS ORDERED: FENTANYL PATCH REMOVAL TP SCH (08:59)
[2018-12-07] MEDS ORDERED: fentaNYL PATCH 75 MCG (DURAGESIC) TD SCH (09:00)
--- NOTE | 2018-12-07 11:08 | Pulmonary Progress Note ---
Subjective Time Seen by a Provider: 11:08 Subjective/Events-last exam PT appears to be doing better. She has less SOB. Sepsis Event Evaluation Height, Weight, BMI Height: 5'2.00" Weight: 312lbs. 4.0oz. 141.161451gk; 51.2 BMI Method:Stated Focused Exam Lactate Level 12/04/18 18:40: Lactic Acid Level 1.25 Exam Exam Vital Signs Date Time Temp Pulse Resp B/P (MAP) Pulse Ox O2 Delivery O2 Flow Rate FiO2 12/07/18 08:26 92 Vapotherm 18.00 40 12/07/18 08:00 Vapotherm 18.00 40 12/07/18 07:56 97.4 51 20 143/70 (94) 92 NIV Bilevel 35.00 15.00 12/07/18 07:00 58 12/07/18 04:58 98.0 61 20 164/76 (105) 96 NIV Bilevel 35.00 12/07/18 01:26 63 19 94 35.00 12/07/18 01:00 63 12/06/18 23:31 98.4 62 20 156/69 (98) 93 Vapotherm 40.00 18.00 12/06/18 23:14 93 Vapotherm 18.00 40 12/06/18 20:00 Vapotherm 18.00 40 12/06/18 19:49 97.8 76 24 157/67 (97) 90 Vapotherm 40.00 18.00 12/06/18 19:48 93 Vapotherm 18.00 40 12/06/18 19:40 88 Vapotherm 20.00 35 12/06/18 19:39 Vapotherm 20.00 35 12/06/18 19:00 76 12/06/18 16:07 98.2 71 22 152/72 (98) 91 Vapotherm 35.00 20.00 12/06/18 14:47 92 Vapotherm 20.00 35 12/06/18 12:28 67 12/06/18 12:00 97.6 65 18 139/72 (94) 91 Vapotherm 30.00 20.00 12/06/18 11:29 92 Vapotherm 20.00 35 I & O 12/07/18 07:00 Intake Total 2720 ml Output Total 3950 ml Balance -1230 ml Height & Weight Height: 5'2.00" Weight: 312lbs. 4.0oz. 141.716368ks; 51.2 BMI Method:Stated General Appearance: No Apparent Distress, Anxious, Chronically ill, Obese HEENT: PERRL/EOMI, Pharynx Normal Neck: Non Tender, Supple Respiratory: No Accessory Muscle Use, No Respiratory Distress, Crackles, Decreased Breath Sounds Cardiovascular: Regular Rate, Rhythm, No Edema Capillary Refill: Less Than 3 Seconds Gastrointestinal: normal bowel sounds, non tender Extremity: Normal Capillary Refill, No Pedal Edema Neurologic/Psychiatric: Alert Skin: Normal Color, Warm/Dry Results Lab Laboratory Tests 12/06/18 08:05 12/07/18 06:08 Assessment/Plan Assessment/Plan Acute on chronic respiratory failure -ABG- C02 71 - BiPAP QHS and PRN -Vapotherm - Continue to titrate oxygen down as tolerated -SVNS Q4 -Solumedrol - 40 Q6 - CTA of chest - reviewed -Lasix Morbid obesity with OHS -Pt has a home vent to mask however she is noncompliant. RLD Medical noncompliance PATRICK WESTFALL DO Dec 07, 2018 11:08
--- NOTE | 2018-12-07 13:38 | Progress Note (SOAP) ---
Subjective Subjective/Events-last exam Afebrile, continuing to feel improved. Nurse reports seeing several live lice again today. Review of Systems Date Seen by Provider: Dec 07, 2018 Time Seen by Provider: 10:40 Focused Exam Lactate Level 12/04/18 18:40: Lactic Acid Level 1.25 Objective Exam Last Set of Vital Signs Vital Signs Date Time Temp Pulse Resp B/P (MAP) Pulse Ox O2 Delivery O2 Flow Rate FiO2 12/07/18 11:49 98.3 63 20 159/65 (96) 91 NIV Bilevel 40.00 18.00 12/07/18 08:26 40 Capillary Refill : Less Than 3 Seconds I&O Intake and Output 12/07/18 00:00 Intake Total 2620 ml Output Total 3500 ml Balance -880 ml Intake Oral 2620 ml Output Urine Total 3500 ml # Bowel Movements 1 General: Alert, No Acute Distress Neuro: Normal Speech Psych/Mental Status: Mental Status NL Results/Procedures Lab Laboratory Tests 12/07/18 06:08: White Blood Count 5.3, Red Blood Count 3.26L, Hemoglobin 8.8L, Hematocrit 31L, Mean Corpuscular Volume 95, Mean Corpuscular Hemoglobin 27, Mean Corpuscular Hemoglobin Concent 28L, Red Cell Distribution Width 15.0H, Platelet Count 183, Mean Platelet Volume 10.1, Sodium Level 140, Potassium Level 3.5L, Chloride Lev el 89L, Carbon Dioxide Level 39H, Anion Gap 12, Blood Urea Nitrogen 26H, Cre atinine 1.13, Estimat Glomerular Filtration Rate 48, BUN/Creatinine Ratio 23, Glucose Level 140H, Calcium Level 8.4L Microbiology 12/04/18 Blood Culture - Preliminary, Resulted No growth 12/04/18 Urine Culture - Final, Complete 3 or more isolates Radiology CXR 12/04 with no acute changes, limited due to body habitus Assessment/Plan Assessment/Plan (1) Acute respiratory failure with hypoxia and hypercarbia Status: Acute Assessment & Plan: pH 7.36 with PCO2 71 on admit and PO2 68, on vapotherm overnight, but this am pH 7.31 and PCO2 80, started on bipap per Dr. Perkins, ap preciate recommendations. Solumedrol 60 mg q6h. BNP 536, given furosemide per Dr. Perkins. 12/06 much improved this am, switched to vapotherm and doing well 12/07 continues on vapotherm, wean as tolerated (2) COPD with acute exacerbation Status: Acute Assessment & Plan: See above. (3) Lice Status: Acute Assessment & Plan: Treated with permethrin on admit, contact precautions. business services vice president consulted for home concerns. 12/07 will try to get Sklice, not available currently, will have to see if it can be obtained from another pharmacy (4) DVT prophylaxis Status: Acute Assessment & Plan: Enoxaparin Clinical Quality Measures DVT/VTE Risk/Contraindication: Risk Factor Score Per Nursin RFS Level Per Nursing on Admit: 4+=Very High LOY DAVE MD Dec 07, 2018 13:37
[2018-12-07] MEDS ORDERED: [UNRECOGNIZED DRUG - REMARK] TOP NR (14:00)
[2018-12-07] MEDS: oxyCODONE/APAP 10/325MG (PERCOCET 10) TABLET PO PRN (15:06)
[2018-12-07] MEDS: LATANOPROST 0.005% (XALATAN) OPHTH SOLN 2.5 ML OU SCH (20:36)
[2018-12-07] MEDS: ATORVASTATIN 80 MG (LIPITOR) TABLET PO SCH (20:36)
[2018-12-08] MEDS: ENOXAPARIN 60 MG/0.6 ML (LOVENOX) SYR SC SCH ×2 (02:11→13:40)
[2018-12-08] MEDS: methylPREDNISolone 40 MG/ML (Solu-MEDROL) VIAL IV SCH (02:11)
[2018-12-08 03:51] VITALS: BP 174/75
[2018-12-08 06:04] LABS: HEMOGLOBIN 9.6 G/DL (11.5-16.0); MEAN PLATELET VOLUME 9.4 FL (7.4-10.4); RED CELL DISTRIBUTION WIDTH 14.9 % (10.0-14.5); WHITE BLOOD COUNT 5.3 10^3/uL (4.3-11.0)
[2018-12-08 06:20] LABS: CALCIUM 8.5 MG/DL (8.5-10.1); CREATININE SERUM 1.07 MG/DL (0.60-1.30); POTASSIUM 3.7 MMOL/L (3.6-5.0)
--- NOTE | 2018-12-08 06:52 | Pulmonary Progress Note ---
Standard Progress Note Progress Notes Time Seen by Provider: 06:51 Pt currently on BiPAP. Assessment & Plan Acute on chronic respiratory failure -ABG- C02 71 - BiPAP QHS and PRN - -Back to NC during the day -SVNS Q4 -Solumedrol - 40 Q6 -- change to prednisone PRN - CTA of chest - reviewed -Lasix Morbid obesity with OHS -Pt has a home vent to mask however she is noncompliant. RLD Medical noncompliance PATRICK WESTFALL DO Dec 08, 2018 06:52
[2018-12-08] MEDS: RT-ALBUTEROL/IPRATROPIUM 3 ML (DUONEB) VIAL INH SCH ×2 (07:19→11:36)
[2018-12-08] MEDS: RT-BUDESONIDE NEBS 0.5 MG/2ML (PULMICORT) AMP INH SCH (07:19)
[2018-12-08] MEDS: LEVOTHYROXINE 100 MCG (LEVOTHROID) TAB PO SCH (07:48)
[2018-12-08] MEDS: metFORMIN 500 MG (GLUCOPHAGE) TAB PO SCH (07:48)
[2018-12-08 08:00] VITALS: BP 176/74
[2018-12-08] MEDS: ASPIRIN E.C. 81 MG (ECOTRIN) TAB PO SCH (08:49)
[2018-12-08] MEDS: FUROSEMIDE 40 MG/4 ML INJ (LASIX) IVP SCH (08:49)
[2018-12-08] MEDS: meTOprolol TARTRATE 25 MG (LOPRESSOR) TABLET PO SCH (08:50)
[2018-12-08] MEDS: oxyCODONE/APAP 10/325MG (PERCOCET 10) TABLET PO PRN (08:50)
[2018-12-08] MEDS: ISOSORBIDE MONONITRATE 30 MG (IMDUR) TAB PO SCH (08:50)
[2018-12-08] MEDS: KCL 20 MEQ TAB (K-DUR) PO SCH (08:50)
[2018-12-08] MEDS ORDERED: predniSONE 10 MG TAB PO SCH (09:00)
[2018-12-08 12:00] VITALS: BP 165/84
--- NOTE | 2018-12-08 12:38 | NUR ---
CM/SS spoke with the patient at her request. Patient was inquiring about how to get a portable concentrator, referred her to speak with the DME in which she gets her oxygen from. Patient is normally on 4L at home. Patient also asked about a bedside commode, these are not covered by ins. Discussed other places ie) [employer] / thrift store where can often find these items and then clean them up. Patient stated that she had all the help she needed at home with her family supports. She did not see any needs at discharge and she is hopeful she might get to go home this day. Patient's daughter will transport her at discharge.
[2018-12-08] MEDS ORDERED: PRD10T PO (12:46)
--- NOTE | 2018-12-08 12:47 | Discharge Instructions ---
Discharge [facility]-PSYCHIATRIC Discharge Medications New, Converted or Re-Newed RX: Transmitted to Pharmacy New Medications: Prednisone (Prednisone) 10 Mg Tab 0 PO UD, #42 TAB 0 Refills Take 6 tabs(60mg)daily, decrease by 1 tab(10mg) every other day. Continued Medications: Albuterol Sulfate (Proair Hfa) 1 Puff Puff 2 PUFF INH Q6H PRN for SHORTNESS OF BREATH, INHALER Aspirin (Aspirin EC) 81 Mg Tablet.dr 81 MG PO DAILY, TAB Atorvastatin Calcium (Atorvastatin Calcium) 80 Mg Tablet 80 MG PO HS, TAB Bimatoprost (Lumigan) 2.5 Ml Drops 1 DROP OU HS, EA Fentanyl (Fentanyl Patch 75MCG) 1 Each Patch.td72 75 MCG TD Q72H, PATCH Furosemide (Furosemide) 80 Mg Tablet 80 MG PO DAILY PRN for SWELLING, TAB Isosorbide Mononitrate (Isosorbide Mononitrate ER) 30 Mg Tab.er.24h 30 MG PO DAILY, TAB Levothyroxine Sodium (Levothyroxine Sodium) 200 Mcg Tablet 200 MCG PO DAILY, TAB Metformin HCl (Metformin HCl) 500 Mg Tablet 500 MG PO BID, TAB Metoprolol Tartrate (Metoprolol Tartrate) 25 Mg Tablet 25 MG PO BID, TAB Oxycodone HCl/Acetaminophen (Oxycodon-Acetaminophen 7.5-325) 1 Each Tablet 1 TAB PO QID PRN for PAIN-MODERATE, TAB Potassium Chloride (Potassium Chloride) 20 Meq Tab.er.prt 20 MEQ PO DAILY, TAB Patient Instructions Goal/Follow Up Appt: Follow up with Dr. Hernandez on December 15 at 11:40. Follow up with Dr. Perkins as instructed. Activity & Diet Discharge Diet: ADA Diet Activity as Tolerated: Yes Copy Copies To 1: JAN HERNANDEZ MD, BETHANY N MD Dec 08, 2018 12:47
[2018-12-08 14:53] VITALS: BP 165/84
--- NOTE | 2018-12-08 15:01 | Discharge Summary ---
Diagnosis/Chief Complaint Date of Admission Dec 04, 2018 at 20:05 Date of Discharge Dec 08, 2018 Admission Diagnosis Admission Diagnosis Acute on chronic respiratory failure with hyoxia and hypercapnea Discharge Diagnosis See problem list Problems/Diagnosis: (1) Acute respiratory failure with hypoxia and hypercarbia Assessment & Plan: pH 7.36 with PCO2 71 on admit and PO2 68, on vapotherm overnight, but this am pH 7.31 and PCO2 80, started on bipap per Dr. Perkins, appreciate recommendations. Solumedrol 60 mg q6h. BNP 536, given furosemide per Dr. Perkins. 12/06 much improved this am, switched to vapotherm and doing well 12/07 continues on vapotherm, wean as tolerated 12/08 stable on home 4 lpm Status: Acute (2) COPD with acute exacerbation Assessment & Plan: Discharged with prednisone taper. Status: Acute (3) Lice Assessment & Plan: Treated with permethrin on admit, contact precautions. director of cardiopulmonary services consulted for home concerns. Treated with Sklice given live lice still seen after initial treatment. Status: Acute Chief Complaint/HPI Chief Complaint/HPI 63 yo female came to ER due to worsening shortness of breath over the last week. Denies fever or cough. History limited due to being on bipap at time of exam. Discharge Summary-Simple/Stand Consultations Discharge Physical Examination Allergies: Coded Allergies: ceftriaxone (Verified Allergy, Unknown, 08/02/17) ibuprofen (Verified Allergy, Unknown, PT TAKES ASA AT HOME, 08/02/17) PER MED REC diazepam (Verified Adverse Reaction, Severe, 12/04/18) Vitals & I&Os Vital Sign - Last 12Hours Date Time Temp Pulse Resp B/P (MAP) Pulse Ox O2 Delivery O2 Flow Rate FiO2 12/08/18 13:09 50 12/08/18 12:00 98.0 18 165/84 (111) 92 High Flow N/C 5.00 12/07/18 08:26 40 Intake and Output 12/08/18 00:00 Intake Total 1900 ml Output Total 3175 ml Balance -1275 ml General Appearance: Alert, No Acute Distress Respiratory: Clear to Auscultation, Normal Air Movement Cardiovascular: Regular Rate, No Murmurs Neuro: Normal Speech Psych/Mental Status: Mental Status NL Hospital Course See final discharge diagnosis. Labs Laboratory Tests Test 12/07/18 06:08 12/08/18 05:11 Range/Units White Blood Count 5.3 5.3 4.3-11.0 10^3/uL Red Blood Count 3.26 L 3.61 L 4.35-5.85 10^6/uL Hemoglobin 8.8 L 9.6 L 11.5-16.0 G/DL Hematocrit 31 L 34 L 35-52 % Mean Corpuscular Volume 95 94 80-99 FL Mean Corpuscular Hemoglobin 27 27 25-34 PG Mean Corpuscular Hemoglobin Concent 28 L 28 L 32-36 G/DL Red Cell Distribution Width 15.0 H 14.9 H 10.0-14.5 % Platelet Count 183 192 130-400 10^3/uL Mean Platelet Volume 10.1 9.4 7.4-10.4 FL Sodium Level 140 140 135-145 MMOL/L Potassium Level 3.5 L 3.7 3.6-5.0 MMOL/L Chloride Level 89 L 88 L 98-107 MMOL/L Carbon Dioxide Level 39 H 40 H 21-32 MMOL/L Anion Gap 12 12 5-14 MMOL/L Blood Urea Nitrogen 26 H 31 H 7-18 MG/DL Creatinine 1.13 1.07 0.60-1.30 MG/DL Estimat Glomerular Filtration Rate 48 52 BUN/Creatinine Ratio 23 29 Glucose Level 140 H 129 H 70-105 MG/DL Calcium Level 8.4 L 8.5 8.5-10.1 MG/DL Radiology Reviewed CXR 12/04 with no acute changes, limited due to body habitus Discharge Instructions to patient/family Please see electronic discharge instructions given to patient. Discharge Medications Reviewed and agree with Discharge Medication list on patient's Discharge Instruction sheet Clinical Quality Measures DVT/VTE Risk/Contraindication: Risk Factor Score Per Nursin RFS Level Per Nursing on Admit: 4+=Very High Copy Copies To 1: JAN HERNANDEZ MD, BETHANY N MD Dec 08, 2018 15:00
== END 2018-12-08 14:53 | disposition home or self-care (01) | DRG 189 ==
LOC: EDUNIT# 17:51 → ER 17:55 → 4TH 20:05
PROVIDERS: ADMIT Family Medicine; ATTEND Family Medicine
DX: J96.21 Acute and chronic respiratory failure with hypoxia (principal); J96.22 Acute and chronic respiratory failure with hypercapnia; J44.1 Chronic obstructive pulmonary disease with (acute) exacerbation; E66.2 Morbid (severe) obesity with alveolar hypoventilation; Z68.43 Body mass index [BMI] 50.0-59.9, adult; F11.20 Opioid dependence, uncomplicated; B85.2 Pediculosis, unspecified; E11.9 Type 2 diabetes mellitus without complications; I11.0 Hypertensive heart disease with heart failure; I50.9 Heart failure, unspecified; I25.10 Atherosclerotic heart disease of native coronary artery without angina pectoris; I48.91 Unspecified atrial fibrillation; I25.2 Old myocardial infarction; D63.8 Anemia in other chronic diseases classified elsewhere; E03.9 Hypothyroidism, unspecified; E78.00 Pure hypercholesterolemia, unspecified; G89.29 Other chronic pain; M19.91 Primary osteoarthritis, unspecified site; H40.9 Unspecified glaucoma; Z91.19 Patient's noncompliance with other medical treatment and regimen; Z99.81 Dependence on supplemental oxygen; Z95.5 Presence of coronary angioplasty implant and graft; Z86.718 Personal history of other venous thrombosis and embolism; Z79.82 Long term (current) use of aspirin; Z85.038 Personal history of other malignant neoplasm of large intestine; Z85.828 Personal history of other malignant neoplasm of skin
CPT/HCPCS: 36415; 36600; 71045; 71275; 80048; 80053; 81000; 82805; 83605; 83735; 83880; 84100; 84484; 85007; 85025; 85027; 85610; 85730; 87040; 87088; 93005; 94640; 94660; 94760; 96361; 96365; 96375

== ENCOUNTER 2019-02-18 18:53 | Emergency (ER) | payer MEDICAID ==
[~2019-02-18] VITALS: Ht 157.5 cm; Wt 123.4 kg
[~2019-02-18 18:53] MED LIST changes: +FENT1PAT10 TD
[2019-02-18] MEDS ORDERED: RT-ALBUTEROL/IPRATROPIUM 3 ML (DUONEB) VIAL ONE (18:57)
[2019-02-18] MEDS ORDERED: RT-HYPERTONIC SALINE 3% 4 ML NEB ONE (19:00)
--- NOTE | 2019-02-18 19:02 | NUR ---
O2 SAT 97% ON 5L, O2 DECREASED TO 4L AT THIS TIME. 02 STATS MAINTAINING 96-97% ON 4L.
--- NOTE | 2019-02-18 19:12 | ED General ---
General Stated Complaint: SOA Source of Information: Patient Exam Limitations: No Limitations History of Present Illness Date Seen by Provider: Feb 18, 2019 Time Seen by Provider: 18:59 Initial Comments Here with report of shortness of air. Apparently she was at home and on her oxygen concentrator at her normal for liters and her O2 saturations were going d own to the 60s or 70s. She could deep breathe back up into the 80s but then she was having heart rate problems. Daughter noted that her lips were turning blue. They called the [facility] office and they said that if the oxygen concentrator was not working it would alarm. It is not alarming. She is still having problems at home. Arrives with lower oxygen saturation in the 70s that went up to the 90s with her normal for liters of oxygen. She does have a mild fever of 100.3 on arrival. Denies nausea or vomiting. She does have some cough. She reports that she does not have nebulizers at home. Timing/Duration: 4-6 Hours, Changing Over Time Severity: Moderate, Severe Modifying Factors: improves with Immobilization, improves with Rest Associated Systoms: Cough, Fever/Chills; No Malaise, No Nausea/Vomiting; Shor tness of Air, Weakness Allergies and Home Medications Allergies Coded Allergies: ceftriaxone (Verified Allergy, Unknown, 08/02/17) ibuprofen (Verified Allergy, Unknown, PT TAKES ASA AT HOME, 08/02/17) PER MED REC diazepam (Verified Adverse Reaction, Severe, 12/04/18) Home Medications Albuterol Sulfate 1 Puff Puff, 2 PUFF INH Q6H PRN for SHORTNESS OF BREATH, (Reported) Aspirin 81 Mg Tablet.dr, 81 MG PO DAILY, (Reported) Atorvastatin Calcium 80 Mg Tablet, 80 MG PO HS, (Reported) Bimatoprost 2.5 Ml Drops, 1 DROP OU HS, (Reported) Fentanyl 1 Each Patch.td72, 75 MCG TD Q72H, (Reported) Furosemide 80 Mg Tablet, 80 MG PO DAILY PRN for SWELLING, (Reported) Isosorbide Mononitrate 30 Mg Tab.er.24h, 30 MG PO DAILY, (Reported) Levothyroxine Sodium 200 Mcg Tablet, 200 MCG PO DAILY, (Reported) Metformin HCl 500 Mg Tablet, 500 MG PO BID, (Reported) Metoprolol Tartrate 25 Mg Tablet, 25 MG PO BID, (Reported) Oxycodone HCl/Acetaminophen 1 Each Tablet, 1 TAB PO QID PRN for PAIN-MODERATE, (Reported) Potassium Chloride 20 Meq Tab.er.prt, 20 MEQ PO DAILY, (Reported) Prednisone 10 Mg Tab, 0 PO UD Take 6 tabs(60mg)daily, decrease by 1 tab(10mg) every other day. Prescribed by: LOY DAVE on 12/08/18 4336 Patient Home Medication List Home Medication List Reviewed: Yes Review of Systems Review of Systems Constitutional: see HPI; No chills, No fever EENTM: no symptoms reported Respiratory: see HPI, dyspnea on exertion Cardiovascular: No chest pain, No edema; palpitations Gastrointestinal: No abdominal pain, No nausea, No vomiting Genitourinary: no symptoms reported Musculoskeletal: no symptoms reported Skin: no symptoms reported All Other Systems Reviewed Negative Unless Noted: Yes Past Bysrnmm-Lhtblh-Twlrgq Hx Past Med/Social Hx: Reviewed Nursing Past Med/Soc Hx Patient Social History Alcohol Use: Denies Use Recreational Drug Use: No Smoking Status: Never a Smoker 2nd Hand Smoke Exposure: No Recent Foreign Travel: No Contact w/Someone Who Travel: No Recent Hopitalizations: No Immunizations Up To Date Tetanus Booster (TDap): Unknown Date of Pneumonia Vaccine: Mar 13, 2013 Date of Influenza Vaccine: Mar 28, 2018 Seasonal Allergies Seasonal Allergies: No Past Medical History Surgeries: Yes (COLON POLYP REMOVAL, MULTIPLE HERNIA REPAIRS, D&C) Abdominal, Adenoidectomy, Bowel Surgery, Coronary Stent, Eye Surgery, Gallbladder, Tonsillectomy, Tubal Ligation Respiratory: Yes (CHRONIC DYSPNEA--USES O2 AT HOME, ESPECIALLY AT NIGHT) Sleep Apnea, COPD Cardiac: Yes (TACHYCARDIA, STENTS X 1, CHF) Atrial Fibrillation, Chronic Edema/Swelling, Coronary Artery Disease, Deep Vein Thrombosis, Heart Attack, High Cholesterol, Hypertension Neurological: No 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 Disorders: No Female 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 Disorders: 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, Menopausal Sexually Transmitted Disease: No HIV/AIDS: No Genitourinary: Yes UTI-Chronic Gastrointestinal: Yes Abdominal Hernia, Diverticulosis, Polyps Musculoskeletal: Yes (CHRONIC GENERALIZED PAIN--NARCOTIC-DEPENDENT) Degenerate Disk Disease, Arthritis, Chronic Back Pain Endocrine: Yes (MORBID OBESITY) Hypothyroidsim, Diabetes, Non-Insulin dep HEENT: Yes Cataract, Glaucoma Loss of Vision: Denies Hearing Impairment: Denies Cancer: Yes (SQUAMOUS CELL SKIN CANCER RIGHT CHEEK 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) Skin, Colon Did You Recieve Any Treatments: Yes What Type of Treatment Did You: Surgical Intervention Psychosocial: No Integumentary: Yes (CELLULITIS; SKIN CANCER; BEDBUGS) Eczema Blood Disorders: Yes (CHRONIC ANEMIA) Adverse Reaction/Blood Tranf: No (HAS HAD BLOOD WITH NO REACTION) Family Medical History Reviewed Nursing Family Hx Cancer 03 MOTHER, Onset: - 50 Family history: Cardiovascular disease 03 FATHER, Onset: 03 MOTHER, Onset: Myocardial infarction 03 MOTHER, Onset: Physical Exam-Suspected Sepsis Physical Exam Vital Signs Vital Signs - First Documented Capillary Refill : Height, Weight, BMI Height: 5'2.00" Weight: 307lbs. 2.0oz. 139.521173yb; 51.2 BMI Method:Stated General Appearance: No Apparent Distress, WD/WN HEENT: PERRL/EOMI, Pharynx Normal Neck: Non Tender, Supple Respiratory: Decreased Breath Sounds (exam limited by body habitus), Wheezing (upper very mild.) Cardiovascular: Regular Rate, Rhythm, No Murmur Gastrointestinal: Non Tender, Soft Back: Normal Inspection, No CVA Tenderness, No Vertebral Tenderness Extremity: Normal Range of Motion, Non Tender Neurologic/Psychiatric: Alert, Oriented x3 Skin: normal color, warm/dry Focused Exam Lactate Level 02/18/19 19:06: Lactic Acid Level 4.05*H 02/18/19 21:06: Lactic Acid Level 2.00 Lactic Acid Level Laboratory Tests Test 02/18/19 19:06 02/18/19 21:06 Lactic Acid Level 4.05 MMOL/L (0.50-2.00) *H 2.00 MMOL/L (0.50-2.00) Procedures/Interventions Suture Size: 4-0 Progress/Results/Core Measures Suspected Sepsis SIRS Temperature: Pulse: Respiratory Rate: Laboratory Tests 02/18/19 19:06: White Blood Count 7.6 Blood Pressure / Mean: 02/18/19 19:06: Lactic Acid Level 4.05*H 02/18/19 21:06: Lactic Acid Level 2.00 Laboratory Tests 02/18/19 19:06: Creatinine 1.75H, INR Comment 0.9, Platelet Count 222, Total Bilirubin 0.5 Results/Orders Lab Results Laboratory Tests Test 02/18/19 19:06 02/18/19 21:06 Range/Units White Blood Count 7.6 4.3-11.0 10^3/uL Red Blood Count 4.03 L 4.35-5.85 10^6/uL Hemoglobin 11.2 L 11.5-16.0 G/DL Hematocrit 37 35-52 % Mean Corpuscular Volume 93 80-99 FL Mean Corpuscular Hemoglobin 28 25-34 PG Mean Corpuscular Hemoglobin Concent 30 L 32-36 G/DL Red Cell Distribution Width 16.5 H 10.0-14.5 % Platelet Count 222 130-400 10^3/uL Mean Platelet Volume 9.8 7.4-10.4 FL Neutrophils (%) (Auto) 58 42-75 % Lymphocytes (%) (Auto) 31 12-44 % Monocytes (%) (Auto) 8 0-12 % Eosinophils (%) (Auto) 3 0-10 % Basophils (%) (Auto) 0 0-10 % Neutrophils # (Auto) 4.4 1.8-7.8 X 10^3 Lymphocytes # (Auto) 2.4 1.0-4.0 X 10^3 Monocytes # (Auto) 0.6 0.0-1.0 X 10^3 Eosinophils # (Auto) 0.2 0.0-0.3 10^3/uL Basophils # (Auto) 0.0 0.0-0.1 10^3/uL Prothrombin Time 12.8 12.2-14.7 SEC INR Comment 0.9 0.8-1.4 Activated Partial Thromboplast Time 25 24-35 SEC Sodium Level 141 135-145 MMOL/L Potassium Level 3.2 L 3.6-5.0 MMOL/L Chloride Level 92 L 98-107 MMOL/L Carbon Dioxide Level 33 H 21-32 MMOL/L Anion Gap 16 H 5-14 MMOL/L Blood Urea Nitrogen 29 H 7-18 MG/DL Creatinine 1.75 H 0.60-1.30 MG/DL Estimat Glomerular Filtration Rate 29 BUN/Creatinine Ratio 17 Glucose Level 182 H 70-105 MG/DL Lactic Acid Level 4.05 *H 2.00 0.50-2.00 MMOL/L Calcium Level 9.8 8.5-10.1 MG/DL Corrected Calcium 9.9 8.5-10.1 MG/DL Total Bilirubin 0.5 0.1-1.0 MG/DL Aspartate Amino Transf (AST/SGOT) 18 5-34 U/L Alanine Aminotransferase (ALT/SGPT) 17 0-55 U/L Alkaline Phosphatase 116 40-136 U/L Total Protein 7.8 6.4-8.2 GM/DL Albumin 3.9 3.2-4.5 GM/DL Micro Results Microbiology 02/18/19 Influenza Types A,B Antigen (GONZALES) - Final, Complete My Orders Orders - LUCERO GUTIERREZ MD Albuterol/Ipra Inhalation Soln (Duoneb I (02/18/19 18:57) Cbc With Automated Diff (02/18/19:) Comprehensive Metabolic Panel (02/18/19:07) Blood Culture (02/18/19:07) Sputum Culture (02/18/19:07) Urinalysis (02/18/19:) Urine Culture (02/18/19:) Protime With Inr (02/18/19:) Partial Thromboplastin Time (02/18/19:07) Chest 1 View, Ap/Pa Only (02/18/19:07) Acetaminophen Tablet (Tylenol Tablet) (02/18/19 19:15) Ed Iv/Invasive Line Start (02/18/19 19:07) Ed Iv/Invasive Line Start (02/18/19 19:07) Vital Signs Adult Sepsis Patie Q15M (02/18/19 19:07) O2 (02/18/19:07) Remove Rings In Anticipation O (02/18/19:07) Lactic Acid Analyzer (02/18/19:07) Hypertonic Saline 3% Neb (Rt-Hypertonic (02/18/19 19:15) Albuterol/Ipra Inhalation Soln (Duoneb I (02/18/19 19:15) Svn Small Volume Nebulizer (02/18/19 19:07) Hypertonic Saline 3% Neb (Rt-Hypertonic (02/18/19 19:00) Influenza A And B Antigens (02/18/19 19:12) Communication For Respiratory (02/18/19 19:38) Ns Iv 500 Ml (Sodium Chloride 0.9%) (02/18/19 21:05) Albuterol Pre-Mix Nebs (Rt) (Proventil (02/18/19 21:09) Svn Small Volume Nebulizer (02/18/19 21:09) Prednisone Tablet (Deltasone Tablet) (02/18/19 22:30) Medications Given in ED Current Medications Medications Dose Ordered Sig/Giuseppe Route Start Time Stop Time Status Last Admin Dose Admin Acetaminophen 1,000 mg ONCE PRN PO 02/18/19 19:15 02/18/19 19:23 DC 02/18/19 19:23 1,000 MG Albuterol/ Ipratropium 3 ml ONCE ONCE INH 02/18/19 19:15 02/18/19 19:16 DC 02/18/19 19:26 3 ML Prednisone 40 mg ONCE ONCE PO 02/18/19 22:30 02/18/19 22:31 DC 02/18/19 22:35 40 MG Sodium Chloride 500 ml @ 0 mls/hr Q0M ONCE IV 02/18/19 21:05 02/18/19 21:06 DC 02/18/19 21:14 0 MLS/HR Sodium Chloride Hypertonic 2 ml ONCE ONCE INH 02/18/19 19:15 02/18/19 19:16 DC 02/18/19 19:12 4 ML Vital Signs/I&O 02/18/19 02/18/19 02/18/19 02/18/19 18:57 18:57 19:13 19:23 Temp 100.3 100.3 Pulse 91 Resp 22 B/P (MAP) 142/76 (98) Pulse Ox 78 91 O2 Delivery Nasal Cannula Nasal Cannula Nasal Cannula O2 Flow Rate 5.00 5.00 4.00 02/18/19 02/18/19 19:26 19:45 Temp 99.0 Pulse 87 Resp 20 B/P (MAP) 131/75 Pulse Ox 99 92 O2 Delivery Nasal Cannula Nasal Cannula O2 Flow Rate 4.00 5.00 Capillary Refill : Progress Note : Progress Note Seen and evaluated. IV, labs, chest x-ray, blood cultures, lactic acid, influenza screen ordered. I have asked RT to assist with DuoNeb but we will do 3% saline first and then the DuoNeb and she will also try to get mucus/sputum c ulture sample. Patient on 4 L via nasal cannula and is at 91-92% currently. She did have a fever on arrival and Tylenol 1 g by mouth was ordered. Monitor patient. Patient did receive repeat albuterol treatment. O2 sats remained above 91% throughout the stay except for briefly prior to the last albuterol treatment. She is in no distress. She does have history of COPD. I did talk at length with the patient and family. She feels comfortable going home. I will prescribe nebulizer treatments and they have a machine at home. Prednisone 40 mg by mouth given. Discharged home with return precautions. Patient and family verbalize understanding instructions and agreement with plan. She will return if there is any concern with her oxygenation either by POV ER by ambulance as needed. Diagnostic Imaging Diagonstic Imaging: Xray Plain Films/CT/US/NM/MRI: chest Comments NAME: RENÉ ARTHUR [facility] REC#: [id number] PT STATUS: REG ER : 1955 PHYSICIAN: LUCERO GUTIERREZ MD ADMIT DATE: 02/18/19/ER Signed Date of Exam: 02/18/19 CHEST 1 VIEW, AP/PA ONLY EXAMINATION: Single view of the chest. INDICATION: Short of breath. COMPARISON: Previous CT angiogram from 12/05/2018. FINDINGS: Volume loss within the right chest with shift of the mediastinum to the right, unchanged from the previous CT examination. Left lung appears clear. There are prominent pulmonary arteries. There is also cardiomegaly. There is no evidence of significant effusion or findings of a pneumothorax. IMPRESSION: No significant interval change in appearance of the chest. Right-sided pulmonary volume loss with shift of the mediastinum to the right, unchanged. Aerated portions of the lungs are clear. No significant effusion evident. There is no pneumothorax. Heart size is stable but prominent with prominent bilateral pulmonary arteries. This suggests underlying pulmonary arterial hypertension. Dictated by: Dictated on workstation # [id number] Dict: 02/18/191924 Trans: 02/18/191955 Interpreted by: BERT PARRY MD Electronically signed by: BERT PARRY MD 02/18/191955 Departure Impression Primary Impression: COPD (chronic obstructive pulmonary disease) Qualified Codes: J44.1 - Chronic obstructive pulmonary disease with (acute) exacerbation Disposition: HOME, SELF-CARE Condition: Stable Departure-Patient Inst. Decision time for Depature: 22:51 Referrals: JAN HERNANDEZ MD (PCP/Family) Primary Care Physician Patient Instructions: Exacerbation of COPD (DC) Add. Discharge Instructions: Take medications as directed. You may use albuterol nebulizer treatment every 4 hours as needed. If you're having to use it more often than urination return for further evaluation. Follow-up with your Dr. in one to 2 days for recheck. Return for worse pain, fever, vomiting, weakness, breathing problems or other concerns as needed. Check your oxygen equipment when you get home. You may use the max settings as needed. Scripts Albuterol Sulfate (Albuterol Sulfate) 2.5 Mg/3 Ml Vial.neb 2.5 MG INH Q4H PRN for WHEEZING, #50 EA 1 Refill Prov: LUCERO GUTIERREZ MD 02/18/19 Prednisone (Prednisone) 20 Mg Tab 40 MG PO DAILY, #8 TAB 0 Refills Prov: LUCERO GUTIERREZ MD 02/18/19 Copy Copies To 1: JAN HERNANDEZ MD, TIMOTHY D MD Feb 18, 2019 19:12
[2019-02-18] MEDS ORDERED: RT-HYPERTONIC SALINE 3% 4 ML NEB INH ONE (19:15)
[2019-02-18] MEDS ORDERED: RT-ALBUTEROL/IPRATROPIUM 3 ML (DUONEB) VIAL INH ONE (19:15)
[2019-02-18] MEDS ORDERED: ACETAMINOPHEN 500 MG TAB (TYLENOL) PO PRN (19:15)
[2019-02-18 19:22] LABS: BASOPHILS % (AUTO) 0 % (0-10); EOSINOPHILS # (AUTO) 0.2 10^3/uL (0.0-0.3); EOSINOPHILS % (AUTO) 3 % (0-10); HEMATOCRIT 37 % (35-52); HEMOGLOBIN 11.2 G/DL (11.5-16.0); LYMPHOCYTES # (AUTO) 2.4 X 10^3 (1.0-4.0); LYMPHOCYTES % (AUTO) 31 % (12-44); MEAN CORPUSCULAR HEMOGLOBIN 28 PG (25-34); MEAN CORPUSCULAR HGB CONC 30 G/DL (32-36); MEAN CORPUSCULAR VOLUME 93 FL (80-99); MEAN PLATELET VOLUME 9.8 FL (7.4-10.4); MONOCYTES # (AUTO) 0.6 X 10^3 (0.0-1.0); MONOCYTES % (AUTO) 8 % (0-12); NEUTROPHILS # (AUTO) 4.4 X 10^3 (1.8-7.8); NEUTROPHILS % (AUTO) 58 % (42-75); PLATELET COUNT 222 10^3/uL (130-400); RED CELL DISTRIBUTION WIDTH 16.5 % (10.0-14.5); WHITE BLOOD COUNT 7.6 10^3/uL (4.3-11.0)
--- NOTE | 2019-02-18 19:31 | Diagnostic Imaging Report ---
EXAMINATION: Single view of the chest. INDICATION: Short of breath. COMPARISON: Previous CT angiogram from 12/05/2018. FINDINGS: Volume loss within the right chest with shift of the mediastinum to the right, unchanged from the previous CT examination. Left lung appears clear. There are prominent pulmonary arteries. There is also cardiomegaly. There is no evidence of significant effusion or findings of a pneumothorax. IMPRESSION: No significant interval change in appearance of the chest. Right-sided pulmonary volume loss with shift of the mediastinum to the right, unchanged. Aerated portions of the lungs are clear. No significant effusion evident. There is no pneumothorax. Heart size is stable but prominent with prominent bilateral pulmonary arteries. This suggests underlying pulmonary arterial hypertension. Dictated by: Dictated on workstation # [id number]
[2019-02-18 19:33] LABS: INR 0.9 (0.8-1.4); PROTHROMBIN TIME PATIENT 12.8 SEC (12.2-14.7)
[2019-02-18 19:40] LABS: ALBUMIN 3.9 GM/DL (3.2-4.5); BILIRUBIN,TOTAL 0.5 MG/DL (0.1-1.0); CALCIUM 9.8 MG/DL (8.5-10.1); CREATININE SERUM 1.75 MG/DL (0.60-1.30); POTASSIUM 3.2 MMOL/L (3.6-5.0); TOTAL PROTEIN 7.8 GM/DL (6.4-8.2)
[2019-02-18] MEDS ORDERED: NS IV 500 ML 500 ML IV ONE (21:05)
[2019-02-18] MEDS ORDERED: RT-ALBUTEROL SULF 2.5 MG/3 ML PRE-MIX VIAL INH STA (21:09)
[2019-02-18] MEDS ORDERED: predniSONE 20 MG TAB PO ONE (22:30)
[2019-02-18] MEDS ORDERED: ALBU2.5V4 INH (22:53)
[2019-02-18] MEDS ORDERED: PRD20T PO (22:53)
[2019-02-18 22:58] VITALS: BP 140/80
== END 2019-02-18 22:58 | disposition home or self-care (01) ==
LOC: EDUNIT# 18:53 → ER 18:54
DX: J44.9 Chronic obstructive pulmonary disease, unspecified (principal); G47.30 Sleep apnea, unspecified; I48.91 Unspecified atrial fibrillation; I25.10 Atherosclerotic heart disease of native coronary artery without angina pectoris; I25.2 Old myocardial infarction; E78.00 Pure hypercholesterolemia, unspecified; I10 Essential (primary) hypertension; E66.01 Morbid (severe) obesity due to excess calories; E03.9 Hypothyroidism, unspecified; E11.9 Type 2 diabetes mellitus without complications; Z85.828 Personal history of other malignant neoplasm of skin; Z85.038 Personal history of other malignant neoplasm of large intestine; Z86.718 Personal history of other venous thrombosis and embolism; Z99.81 Dependence on supplemental oxygen; Z88.6 Allergy status to analgesic agent; Z88.1 Allergy status to other antibiotic agents; Z88.8 Allergy status to other drugs, medicaments and biological substances; Z79.82 Long term (current) use of aspirin; Z79.84 Long term (current) use of oral hypoglycemic drugs; Z86.010 Personal history of colon polyps; Z98.890 Other specified postprocedural states; Z95.5 Presence of coronary angioplasty implant and graft; Z90.89 Acquired absence of other organs; Z98.51 Tubal ligation status; Z87.19 Personal history of other diseases of the digestive system; Z82.49 Family history of ischemic heart disease and other diseases of the circulatory system
CPT/HCPCS: 36415; 71045; 80053; 83605; 85025; 85610; 85730; 87040; 87804; 94640; 96360

== ENCOUNTER 2019-02-19 01:44 | Observation (INO) | payer MEDICAID ==
[~2019-02-19] VITALS: Ht 157.5 cm; Wt 123.8 kg
[~2019-02-19 01:44] MED LIST changes: +ALBU2.5V4 INH
--- NOTE | 2019-02-19 02:19 | ED Respiratory ---
General Stated Complaint: SOB Source: patient Exam Limitations: no limitations History of Present Illness Date Seen by Provider: Feb 19, 2019 Time Seen by Provider: 01:46 Initial Comments Here from home. Discharged earlier for COPD exacerbation. Doubt home and her oxygen equipment is not working right and O2 saturations went down into the 70s using both her portable set up and her concentrator machine. The best she can get at home was 76%. Denies cough or other concerns currently. Is only here because she has no other oxygen capability at home and her DME provider is unable to get new machine until today sometime later. This certainly will be back out until after the morning time. Patient was started on prednisone last night for possible COPD exacerbation which may still be partially to blame for her oxygen although does sat at normal range greater than 92% on her typical 4 L via nasal cannula. Timing/Duration: yesterday, getting worse Severity: moderate Prior Episodes/Possible Cause: occasional episodes Associated Symptoms: No cough, No fever/chills; shortness of breath Allergies and Home Medications Allergies Coded Allergies: ceftriaxone (Verified Allergy, Unknown, 08/02/17) ibuprofen (Verified Allergy, Unknown, PT TAKES ASA AT HOME, 08/02/17) PER MED REC diazepam (Verified Adverse Reaction, Severe, 12/04/18) Home Medications Albuterol Sulfate 1 Puff Puff, 2 PUFF INH Q6H PRN for SHORTNESS OF BREATH, (Reported) Albuterol Sulfate 2.5 Mg/3 Ml Vial.neb, 2.5 MG INH Q4H PRN for WHEEZING Prescribed by: LUCERO GUTIERREZ on 02/18/19 6901 Aspirin 81 Mg Tablet.dr, 81 MG PO DAILY, (Reported) Atorvastatin Calcium 80 Mg Tablet, 80 MG PO HS, (Reported) Bimatoprost 2.5 Ml Drops, 1 DROP OU HS, (Reported) Fentanyl 1 Each Patch.td72, 75 MCG TD Q72H, (Reported) Furosemide 80 Mg Tablet, 80 MG PO DAILY PRN for SWELLING, (Reported) Isosorbide Mononitrate 30 Mg Tab.er.24h, 30 MG PO DAILY, (Reported) Levothyroxine Sodium 200 Mcg Tablet, 200 MCG PO DAILY, (Reported) Metformin HCl 500 Mg Tablet, 500 MG PO BID, (Reported) Metoprolol Tartrate 25 Mg Tablet, 25 MG PO BID, (Reported) Oxycodone HCl/Acetaminophen 1 Each Tablet, 1 TAB PO QID PRN for PAIN-MODERATE, (Reported) Potassium Chloride 20 Meq Tab.er.prt, 20 MEQ PO DAILY, (Reported) Prednisone 20 Mg Tab, 40 MG PO DAILY Prescribed by: LUCERO GUTIERREZ on 02/18/19 1864 Patient Home Medication List Home Medication List Reviewed: Yes Review of Systems Review of Systems Constitutional: see HPI; No chills, No fever EENTM: no symptoms reported Respiratory: No cough; dyspnea on exertion; No wheezing Cardiovascular: no symptoms reported Gastrointestinal: No nausea, No vomiting Genitourinary: no symptoms reported Musculoskeletal: no symptoms reported Skin: no symptoms reported All Other Systems Reviewed Negative Unless Noted: Yes Past Pnxzlhy-Zgsdca-Dyprqm Hx Past Med/Social Hx: Reviewed Nursing Past Med/Soc Hx Patient Social History Alcohol Use: Denies Use Recreational Drug Use: No Smoking Status: Never a Smoker 2nd Hand Smoke Exposure: No Recent Foreign Travel: No Contact w/Someone Who Travel: No Recent Hopitalizations: No Immunizations Up To Date Tetanus Booster (TDap): Unknown Date of Pneumonia Vaccine: Mar 13, 2013 Date of Influenza Vaccine: Mar 28, 2018 Seasonal Allergies Seasonal Allergies: No Past Medical History Surgeries: Yes (COLON POLYP REMOVAL, MULTIPLE HERNIA REPAIRS, D&C) Abdominal, Adenoidectomy, Bowel Surgery, Coronary Stent, Eye Surgery, Gallbladder, Tonsillectomy, Tubal Ligation Respiratory: Yes (CHRONIC DYSPNEA--USES O2 AT HOME, ESPECIALLY AT NIGHT) Sleep Apnea, COPD Cardiac: Yes (TACHYCARDIA, STENTS X 1, CHF) Atrial Fibrillation, Chronic Edema/Swelling, Coronary Artery Disease, Deep Vein Thrombosis, Heart Attack, High Cholesterol, Hypertension Neurological: No 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 Disorders: No 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, 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 Sexually Transmitted Disease: No HIV/AIDS: No Genitourinary: Yes UTI-Chronic Gastrointestinal: Yes Abdominal Hernia, Diverticulosis, Polyps Musculoskeletal: Yes (CHRONIC GENERALIZED PAIN--NARCOTIC-DEPENDENT) Degenerate Disk Disease, Arthritis, Chronic Back Pain Endocrine: Yes (MORBID OBESITY) Hypothyroidsim, Diabetes, Non-Insulin dep HEENT: Yes Cataract, Glaucoma Loss of Vision: Denies Hearing Impairment: Denies Cancer: Yes (SQUAMOUS CELL SKIN CANCER RIGHT CHEEK 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) Skin, Colon Did You Recieve Any Treatments: Yes What Type of Treatment Did You: Surgical Intervention Psychosocial: No Integumentary: Yes (CELLULITIS; SKIN CANCER; BEDBUGS) Eczema Blood Disorders: Yes (CHRONIC ANEMIA) Adverse Reaction/Blood Tranf: No (HAS HAD BLOOD WITH NO REACTION) Family Medical History Reviewed Nursing Family Hx Cancer 03 MOTHER, Onset:40's - 50 Family history: Cardiovascular disease 03 FATHER, Onset:40's - 50 03 MOTHER, Onset:30's - 40 Myocardial infarction 03 MOTHER, Onset:30's - 40 Physical Exam Capillary Refill : Height: 5'2.00" Weight: 272lbs. 2.0oz. 123.117655az; 51.2 BMI Method:Stated General Appearance: WD/WN, no apparent distress, obese HEENT: PERRL/EOMI, pharynx normal Neck: full range of motion, supple Respiratory: lungs clear, normal breath sounds Cardiovascular: regular rate, rhythm, no murmur Gastrointestinal: non tender, soft Extremities: non-tender, normal inspection Neurologic/Psychiatric: alert, oriented x 3 Skin: normal color, warm/dry Procedures/Interventions Suture Size: 4-0 Progress/Results/Core Measures Suspected Sepsis SIRS Temperature: Pulse: Respiratory Rate: Blood Pressure / Mean: Results/Orders Lab Results Laboratory Tests Test 02/19/19 02:03 02/19/19 08:30 Range/Units Glucometer 208 H 70-110 MG/DL Lab Scanned Report Referred Lab Report [id number] My Orders Orders - LUCERO GUTIERREZ MD Accucheck Stat ONCE (02/19/19 02:01) O2 (02/19/19 02:01) Monitor-Rhythm Ecg Trace Only (02/19/19 02:01) Oxycodone Immediate Rel Tablet (Oxyir Ta (02/19/19 02:15) Vital Signs/I&O Capillary Refill : Point of Care Testing Finger Stick Blood Glucose: 208 Blood Glucose Action Taken: RN NOTIFIED Progress Note : Progress Note Seen and evaluated. Placed on O2 and oxygen saturation 93%. Given the prolonged time that will be required until she will get DME equipment, patient will be admitted observation/short stay. She has no significant concerns currently other than her need for oxygen. We will check blood sugar. Patient is off of her typical dosing for her pain medicine so oxycodone 10 mg by mouth given now. I will write for her typical home meds to start in the morning pending bed assignment. I did discuss the case with Dr. Dodd regarding this patient's case early in the evening and he is accepted at that time for admission it needed. Patient and family agree with plan. See prior chart for further information regarding previous visit a few hours ago. Departure Communication (Admissions) Time/Spoke to Admitting Phy: 02:00 Impression Primary Impression: COPD (chronic obstructive pulmonary disease) Qualified Codes: J44.1 - Chronic obstructive pulmonary disease with (acute) exacerbation Additional Impression: Hypoxia Disposition: ADMITTED INPATIENT Condition: Stable Admissions Decision to Admit Reason: Admit from ER (General) Decision to Admit/Date: Feb 19, 2019 Time/Decision to Admit Time: 02:00 Departure-Patient Inst. Referrals: JAN HERNANDEZ MD (PCP/Family) Primary Care Physician LUCERO GUTIERREZ MD Feb 19, 2019 02:19
--- NOTE | 2019-02-19 03:30 | NUR ---
RESTING IN BED WITH EYES CLOSED. NO DISTRESS NOTED. VSS.
--- NOTE | 2019-02-19 04:00 | NUR ---
Hamzah pickering in ED - 02/19/19 at 0539 by ANDRES 02 SATS DECREASING TO 88-89% DURING SLEEP. DR. GUTIERREZ NOTIFIED, 02 ORDERED TO KEEP SATS >94%.
--- NOTE | 2019-02-19 05:35 | NUR ---
RESTING IN BED WITH EYES CLOSED. NO DISTRESS NOTED. VSS.
[2019-02-19] MEDS ORDERED: predniSONE 20 MG TAB PO SCH (08:43)
[2019-02-19] MEDS ORDERED: ISOSORBIDE MONONITRATE 30 MG (IMDUR) TAB PO SCH (08:44)
[2019-02-19] MEDS ORDERED: oxyCODONE/APAP 7.5-325 MG (PERCOCET 7.5) TABLET PO PRN (08:45)
[2019-02-19] MEDS ORDERED: meTOprolol TARTRATE 25 MG (LOPRESSOR) TABLET PO SCH (09:00)
[2019-02-19] MEDS ORDERED: morphine ER 30 MG (MS CONTIN) TAB PO SCH (09:00)
[2019-02-19 09:36] VITALS: BP 150/85
[2019-02-19 11:33] LABS: BILIRUBIN,URINE NEGATIVE (NEGATIVE); CLARITY,URINE CLEAR; COLOR,URINE YELLOW; GLUCOSE, URINE (UA) NEGATIVE (NEGATIVE); KETONES,URINE NEGATIVE (NEGATIVE); LEUKOCYTE ESTERASE ,URINE 2+ (NEGATIVE); NITRITE,URINE NEGATIVE (NEGATIVE); PH,URINE 5 (5-9); PROTEIN,URINE 2+ (NEGATIVE); UROBILINOGEN,URINE NORMAL (NORMAL)
[2019-02-19 11:56] LABS: BACTERIA,URINE LARGE /HPF; RBC,URINE RARE /HPF
[2019-02-19 12:00] VITALS: BP 146/68
--- NOTE | 2019-02-19 12:01 | Short Stay Summary ---
History of Present Illness History of Present Illness Reason for visit/HPI 63 yo F that was recently discharged from the hospital that presented to ER with hypoxia and sats in the 60s. States that when she was here her oxygen levels were doing well. She then went home and felt like something was wrong with her concentrator. She then called her [employer] to come look at it and they said that it was likely fine and that if she was concerned she needed to go back to the ER. She then took her saturation levels and it was in the 60s and falling with any activity and she states that she was unable to get it any higher then low 80s so she decided to present back to ER. Upon arrival she was evaluated and when she was placed on 4L [place] which is her home oxygen her oxygen saturations stabilized. ER physician then called [employer] to go look at patient's concentrator and it was indeed malfunctioning. They have since fixed concentrator and patient has all needed medications at home and will be discharged home today. Date of Admission Feb 19, 2019 at 02:15 Date of Discharge 02/19/2019 Time Seen by Provider: 10:00 Attending Physician Александр Dodd MD Admitting Physician Aden Hernandez MD Consult Allergies and Home Medications Allergies Coded Allergies: ceftriaxone (Verified Allergy, Unknown, 08/02/17) ibuprofen (Verified Allergy, Unknown, PT TAKES ASA AT HOME, 08/02/17) PER MED REC diazepam (Verified Adverse Reaction, Severe, 12/04/18) Home Medications Albuterol Sulfate 1 Puff Puff, 2 PUFF INH Q6H PRN for SHORTNESS OF BREATH, (Reported) Albuterol Sulfate 2.5 Mg/3 Ml Vial.neb, 2.5 MG INH Q4H PRN for WHEEZING Prescribed by: LUCERO GUTIERREZ on 02/18/19 0435 Aspirin 81 Mg Tablet.dr, 81 MG PO DAILY, (Reported) Atorvastatin Calcium 80 Mg Tablet, 80 MG PO HS, (Reported) Bimatoprost 2.5 Ml Drops, 1 DROP OU HS, (Reported) Fentanyl 1 Each Patch.td72, 75 MCG TD Q72H, (Reported) Furosemide 80 Mg Tablet, 80 MG PO DAILY PRN for SWELLING, (Reported) Isosorbide Mononitrate 30 Mg Tab.er.24h, 30 MG PO DAILY, (Reported) Levothyroxine Sodium 200 Mcg Tablet, 200 MCG PO DAILY, (Reported) Metformin HCl 500 Mg Tablet, 500 MG PO BID, (Reported) Metoprolol Tartrate 25 Mg Tablet, 25 MG PO BID, (Reported) Oxycodone HCl/Acetaminophen 1 Each Tablet, 1 TAB PO QID PRN for PAIN-MODERATE, (Reported) Potassium Chloride 20 Meq Tab.er.prt, 20 MEQ PO DAILY, (Reported) Prednisone 20 Mg Tab, 40 MG PO DAILY Prescribed by: LUCERO GUTIERREZ on 02/18/19 8937 Patient Home Medication List Home Medication List Reviewed: Yes Past Qykuqoe-Wskvyk-Xxnqvh Hx Patient Social History Alcohol Use: Denies Use Recreational Drug Use: No Smoking Status: Never a Smoker 2nd Hand Smoke Exposure: No Physical Abuse Screen: No Sexual Abuse: No Recent Foreign Travel: No Contact w/other who traveled: No Recent Hopitalizations: No Recent Infectious Disease Expo: No Immunizations Up To Date Tetanus Booster (TDap): Unknown Date of Pneumonia Vaccine: Mar 13, 2013 Date of Influenza Vaccine: Mar 28, 2018 Seasonal Allergies Seasonal Allergies: No Surgeries Yes (COLON POLYP REMOVAL, MULTIPLE HERNIA REPAIRS, D&C) Abdominal, Adenoidectomy, Bowel Surgery, Coronary Stent, Eye Surgery, Gallbladder, Tonsillectomy, Tubal Ligation Respiratory Yes (CHRONIC DYSPNEA--USES O2 AT HOME, ESPECIALLY AT NIGHT) Sleep Apnea Cardiovascular Yes (TACHYCARDIA, STENTS X 1, CHF) Atrial Fibrillation, Chronic Edema/Swelling, Coronary Artery Disease, Deep Vein Thrombosis, Heart Attack, High Cholesterol, Hypertension Neurological No 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 System : No Hx 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 Disorders: No Sexually Transmitted Disease: No HIV/AIDS: No Female 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 Disorders: Denies 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, 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 Genitourinary Yes UTI-Chronic Gastrointestinal Yes Abdominal Hernia, Diverticulosis, Polyps Musculoskeletal Yes (CHRONIC GENERALIZED PAIN--NARCOTIC-DEPENDENT) Degenerate Disk Disease, Arthritis, Chronic Back Pain Endocrine History of Endocrine Disorders: Yes (MORBID OBESITY) Endocrine Disorders: Hypothyroidsim, Diabetes, Non-Insulin dep HEENT History of HEENT Disorders: Yes HEENT Disorders: Cataract, Glaucoma Loss of Vision: Denies Hearing Impairment: Denies Cancer Yes (SQUAMOUS CELL SKIN CANCER RIGHT CHEEK 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) Skin, Colon Did You Recieve Any Treatments: Yes Type of Treatment: Surgical Intervention Psychosocial History of Psychiatric Problem: No Integumentary History of Skin or Integumenta: Yes (CELLULITIS; SKIN CANCER; BEDBUGS) Skin/Integumentary Disorders: Eczema Blood Transfusions History of Blood Disorders: Yes (CHRONIC ANEMIA) Adverse Reaction to a Blood Tr: No (HAS HAD BLOOD WITH NO REACTION) Family Medical History Family Hx: Cancer 03 MOTHER, Onset:40s - 50 Family history: Cardiovascular disease 03 FATHER, Onset: 03 MOTHER, Onset: Myocardial infarction 03 MOTHER, Onset: Review of Systems Constitutional: no symptoms reported; No chills, No dizziness, No fever, No weakness EENTM: no symptoms reported; No mouth pain, No mouth swelling, No nose congestion, No throat pain, No throat swelling Respiratory: cough, dyspnea on exertion Cardiovascular: no symptoms reported; No chest pain, No edema, No palpitations Gastrointestinal: no symptoms reported; No abdominal pain, No constipation, No diarrhea, No loss of appetite, No nausea, No vomiting Genitourinary: no symptoms reported; No dysuria, No frequency, No hematuria : No Musculoskeletal: back pain (chronic) Skin: no symptoms reported Psychiatric/Neurological: No Symptoms Reported Physical Exam Vital Signs Vital Signs - First Documented Capillary Refill : Less Than 3 Seconds Height, Weight, BMI Height: 5'2.00" Weight: 273lbs. 0.0oz. 123.510117tg; 51.2 BMI Method:Stated General Appearance: No Apparent Distress, WD/WN, Obese HEENT: PERRL/EOMI Neck: Non Tender, Supple Respiratory: Other (diminished breath sounds due to obesity, normal work of breathing but increased with any activity) Cardiovascular: Regular Rate, Rhythm, No Edema, No Murmur, Normal Peripheral Pulses Gastrointestinal: Normal Bowel Sounds, Non Tender, Soft Back: No CVA Tenderness, No Vertebral Tenderness Extremity: Normal Inspection, Normal Range of Motion, Non Tender, No Calf Tend erness Neurologic/Psychiatric: Alert, Oriented x3, No Motor/Sensory Deficits, Normal 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, 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 Norm as Tested Skin: Normal Color, Warm/Dry Lymphatic: No Adenopathy Clinical Quality Measures DVT/VTE Risk/Contraindication: Risk Factor Score Per Nursin RFS Level Per Nursing on Admit: 3=High Short Stay Diagnosis Discharge Diagnosis-Short Stay Admission Diagnosis: COPD Exacerbation Hypoxia DME malfunction Final Discharge Diagnosis: COPD Exacerbation DME Malfunction Conclusion Labs Laboratory Tests 02/19/19 02:03: Glucometer 208H 02/19/19 09:45: Urine Color YELLOW, Urine Clarity CLEAR, Urine pH 5, Urine Specific [place] 1.020, Urine Protein 2+H, Urine Glucose (UA) NEGATIVE, Urine Ketones NEGATIVE, Urine Nitrite NEGATIVE, Urine Bilirubin NEGATIVE, Urine Urobilinogen NORMAL, Urine Leukocyte Esterase 2+H, Urine RBC (Auto) 2+H, Urine RBC RARE, Urine WBC 10-25H, Urine Squamous Epithelial Cells 10-25H, Urine Crystals NONE, Urine Bacteria LARGEH, Urine Casts NONE, Urine Mucus NEGATIVE, Urine Culture Indicated YES Conclusion/Plan 63 yo F with recent hospitalization that was sent home and then readmitted 2/2 oxygen concentrator malfunction and hypoxia Plan COPD Exacerbation - Will continue Steroid taper, A/A nebs, and continuous oxygen at 4L [place] Hypoxia - 2/2 to oxygen concentrator malfunction DME Malfunction - Concentrator has been repaired, ok to d/c patient home today Copy Copies To 1: ADEN HERNANDEZ MD, HOLLY R MD Feb 19, 2019 12:01
--- NOTE | 2019-02-19 12:08 | Short Stay Summary ---
Discharge Summary Hospital Course Was the Problem List Reviewed?: Yes Final Diagnosis: COPD Exacerbation Hospital Course Date of Admission: Feb 19, 2019 at 02:15 Admission Diagnosis : Family Physician/Provider: Aden Mckeon MD Date of Discharge: 02/19/19 Discharge Diagnosis: [ ] Hospital Course: [ ] Labs and Pending Lab Test: Laboratory Tests 02/19/19 02:03: Glucometer 208H 02/19/19 09:45: Urine Color YELLOW, Urine Clarity CLEAR, Urine pH 5, Urine Specific [place] 1.020, Urine Protein 2+H, Urine Glucose (UA) NEGATIVE, Urine Ketones NEGATIVE, U rine Nitrite NEGATIVE, Urine Bilirubin NEGATIVE, Urine Urobilinogen NORMAL, Urine Leukocyte Esterase 2+H, Urine RBC (Auto) 2+H, Urine RBC RARE, Urine WBC 10-25H, Urine Squamous Epithelial Cells 10-25H, Urine Crystals NONE, Urine Bacteria LARGEH, Urine Casts NONE, Urine Mucus NEGATIVE, Urine Culture Indicated YES Home Meds Active Albuterol Sulfate 2.5 Mg/3 Ml Vial.neb 2.5 Mg INH Q4H PRN Prednisone 20 Mg Tab 40 Mg PO DAILY Prednisone 10 Mg Tab 0 PO UD Take 6 tabs(60mg)daily, decrease by 1 tab(10mg) every other day. Reported Furosemide 80 Mg Tablet 80 Mg PO DAILY PRN Metformin HCl 500 Mg Tablet 500 Mg PO BID Fentanyl Patch 75MCG (Fentanyl) 1 Each Patch.td72 75 Mcg TD Q72H Potassium Chloride 20 Meq Tab.er.prt 20 Meq PO DAILY [place] (Bimatoprost) 2.5 Ml Drops 1 Drop OU HS Oxycodon-Acetaminophen 7.5-325 (Oxycodone HCl/Acetaminophen) 1 Each Tablet 1 Tab PO QID PRN Metoprolol Tartrate 25 Mg Tablet 25 Mg PO BID Levothyroxine Sodium 200 Mcg Tablet 200 Mcg PO DAILY Atorvastatin Calcium 80 Mg Tablet 80 Mg PO HS Aspirin EC (Aspirin) 81 Mg Tablet. 81 Mg PO DAILY Proair Hfa (Albuterol Sulfate) 1 Puff Puff 2 Puff INH Q6H PRN Isosorbide Mononitrate ER (Isosorbide Mononitrate) 30 Mg Tab.er.24h 30 Mg PO DAILY Assessment/Pt Instructions You have a hospital f/u with Dr Mckeon on Feb 22 @ 0940 Discharge Instructions Discharge Diet: ADA Diet Activity as Tolerated: Yes Discharge Physical Examination General Appearance: Alert HEENT: Other (Diminished breath sounds due to obesity, normal work of breathing) Respiratory: Clear to Auscultation Cardiovascular: Regular Rate, No Murmurs Abdominal: Normal Bowel Sounds, Soft, No Tenderness Extremities: No Edema, No Tenderness/Swelling Allergies: Coded Allergies: ceftriaxone (Verified Allergy, Unknown, 08/02/17) ibuprofen (Verified Allergy, Unknown, PT TAKES ASA AT HOME, 08/02/17) PER MED REC diazepam (Verified Adverse Reaction, Severe, 12/04/18) Discharge Summary Date of Admission Feb 19, 2019 at 02:15 Date of Discharge 02/19/2019 Discharge Date: Feb 19, 2019 Clinical Quality Measures DVT/VTE Risk/Contraindication: Risk Factor Score Per Nursin RFS Level Per Nursing on Admit: 3=High ODESSA AGARWAL MD Feb 19, 2019 12:08
[2019-02-19 13:00] VITALS: BP 146/68
--- NOTE | 2019-02-19 13:00 | NUR ---
RENÉ ARTHUR demonstrates understanding of discharge instructions and accurately returns instructions upon questioning. Copy of Post-Discharge Instructions given to PT. RENÉ ARTHUR IS able to manage continuing needs after discharge. Patients belongings returned to PT. Patient discharged from 413-1 on 02/19/19 at 13:00. RENÉ ARTHUR left floor via W/C, accompanied by STAFF AND DAUGHTER.
--- NOTE | 2019-02-19 13:21 | NUR ---
RENÉ JERSON admitted to room 413-1, with an admitting diagnosis of COPD , on 02/19/19 from ER via W/C, accompanied by STAFF.RENÉ ARTHUR introduced to surroundings, call light, bed controls, phone, TV, temperature control, lights, meal times, smoking policy, visitor policy, side rail policy, bathrooms and showers. Patient Rights given to patient in the handbook.RENÉ ARTHUR verbalizes understanding that [facility] is not responsible for the loss or damage to any personal effects or valuables that are kept in the patients posession during their hospitalization. The following Patient Care Plans were discussed with the PT: Discharge Planning, PAIN CONTROL,TESTS, and O2 THERAPY AND COPD. RENÉ ARTHUR verbalizes understanding of Interdisciplinary Patient Education. Patient and/or family were informed about the Rapid Response Team and its purpose. Addendum: 02/19/19 at 1323 by HECTOR LACY RN PT ADMITTED AT 0830
[2019-02-19] MEDS ORDERED: metFORMIN 500 MG (GLUCOPHAGE) TAB PO SCH (17:00)
== END 2019-02-19 12:03 | disposition home or self-care (01) ==
LOC: EDUNIT# 01:44 → ER 01:46 → 4TH 02:15 → UNDOADMOB 02:15 → 4TH 08:30 → UNDODISOB 13:00
PROVIDERS: ADMIT Internal Medicine; ATTEND Internal Medicine
DX: J44.1 Chronic obstructive pulmonary disease with (acute) exacerbation (principal); J95.850 Mechanical complication of respirator; I25.10 Atherosclerotic heart disease of native coronary artery without angina pectoris; E11.36 Type 2 diabetes mellitus with diabetic cataract; E11.39 Type 2 diabetes mellitus with other diabetic ophthalmic complication; H42 Glaucoma in diseases classified elsewhere; E78.00 Pure hypercholesterolemia, unspecified; I11.0 Hypertensive heart disease with heart failure; I50.9 Heart failure, unspecified; I48.91 Unspecified atrial fibrillation; E03.9 Hypothyroidism, unspecified; G89.29 Other chronic pain; M54.5 Low back pain; M19.90 Unspecified osteoarthritis, unspecified site; N39.0 Urinary tract infection, site not specified; E66.01 Morbid (severe) obesity due to excess calories; Z68.42 Body mass index [BMI] 45.0-49.9, adult; Z85.828 Personal history of other malignant neoplasm of skin; Z79.84 Long term (current) use of oral hypoglycemic drugs; Z79.82 Long term (current) use of aspirin; Z79.52 Long term (current) use of systemic steroids; Z79.899 Other long term (current) drug therapy; Z88.6 Allergy status to analgesic agent; Z88.8 Allergy status to other drugs, medicaments and biological substances; Z79.891 Long term (current) 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
CPT/HCPCS: 81000; 82962; 87077; 87088; 87186; 93041; G0378

== ENCOUNTER 2019-04-18 23:11 | Emergency (ER) | payer MEDICAID ==
[~2019-04-18] VITALS: Ht 157.5 cm; Wt 128.0 kg
[2019-04-18] MEDS ORDERED: NS IV 500 ML 500 ML IV ONE (23:25)
[2019-04-18] MEDS ORDERED: KETAMINE/NaCl 50 MG/5 ML SYRINGE (ED ONLY) IV ONE (23:30)
[2019-04-18] MEDS ORDERED: fentaNYL INJECTION 100 MCG/2 ML AMP IVP ONE (23:30)
[2019-04-18] MEDS ORDERED: RT-ALBUTEROL/IPRATROPIUM 3 ML (DUONEB) VIAL INH ONE (23:30)
[2019-04-18 23:34] LABS: BASOPHILS % (AUTO) 0 % (0-10); EOSINOPHILS # (AUTO) 0.2 10^3/uL (0.0-0.3); EOSINOPHILS % (AUTO) 2 % (0-10); HEMATOCRIT 34 % (35-52); HEMOGLOBIN 9.8 G/DL (11.5-16.0); LYMPHOCYTES # (AUTO) 1.9 X 10^3 (1.0-4.0); LYMPHOCYTES % (AUTO) 19 % (12-44); MEAN CORPUSCULAR HEMOGLOBIN 28 PG (25-34); MEAN CORPUSCULAR HGB CONC 29 G/DL (32-36); MEAN CORPUSCULAR VOLUME 97 FL (80-99); MONOCYTES # (AUTO) 0.8 X 10^3 (0.0-1.0); MONOCYTES % (AUTO) 7 % (0-12); NEUTROPHILS # (AUTO) 7.3 X 10^3 (1.8-7.8); NEUTROPHILS % (AUTO) 72 % (42-75); PLATELET COUNT 267 10^3/uL (130-400); RED CELL DISTRIBUTION WIDTH 16.5 % (10.0-14.5); WHITE BLOOD COUNT 10.1 10^3/uL (4.3-11.0)
--- NOTE | 2019-04-18 23:43 | ED Abdominal Pain ---
General Stated Complaint: ABD PAIN,SOB Source of Information: Patient, Family (daughter) Exam Limitations: No Limitations History of Present Illness Date Seen by Provider: Apr 18, 2019 Time Seen by Provider: 23:09 Initial Comments Patient presents to ER by private conveyance with her daughter and chief complaint that she's been feeling short of breath today and as well as feeling some extreme abdominal pain in her pannus midline. She has a history of hernia that has had 2 different surgeries on her ventral hernia as well as she's had her tubes tied and cholecystectomy in the past. She did and oxycodone earlier around 1800 and said this did not help at all. She says the pain is 20 out of 10. She says she uses oxygen at baseline 2 L by nasal cannula and feels very short of breath despite this. She has a history of COPD. No cough fever chills nausea vomiting diarrhea. She's had 3 small bowel movements today. Allergies and Home Medications Allergies Coded Allergies: ceftriaxone (Verified Allergy, Unknown, 08/02/17) ibuprofen (Verified Allergy, Unknown, PT TAKES ASA AT HOME, 08/02/17) PER MED REC diazepam (Verified Adverse Reaction, Severe, 12/04/18) Home Medications Albuterol Sulfate 1 Puff Puff, 2 PUFF INH Q6H PRN for SHORTNESS OF BREATH, (Reported) Albuterol Sulfate 2.5 Mg/3 Ml Vial.neb, 2.5 MG INH Q4H PRN for WHEEZING Prescribed by: LUCERO GUTIERREZ on 02/18/19 8982 Aspirin 81 Mg Tablet.dr, 81 MG PO DAILY, (Reported) Atorvastatin Calcium 80 Mg Tablet, 80 MG PO HS, (Reported) Bimatoprost 2.5 Ml Drops, 1 DROP OU HS, (Reported) Fentanyl 1 Each Patch.td72, 75 MCG TD Q72H, (Reported) Furosemide 80 Mg Tablet, 80 MG PO DAILY PRN for SWELLING, (Reported) Isosorbide Mononitrate 30 Mg Tab.er.24h, 30 MG PO DAILY, (Reported) Levothyroxine Sodium 200 Mcg Tablet, 200 MCG PO DAILY, (Reported) Metformin HCl 500 Mg Tablet, 500 MG PO BID, (Reported) Metoprolol Tartrate 25 Mg Tablet, 25 MG PO BID, (Reported) Oxycodone HCl/Acetaminophen 1 Each Tablet, 1 TAB PO QID PRN for PAIN-MODERATE, (Reported) Potassium Chloride 20 Meq Tab.er.prt, 20 MEQ PO DAILY, (Reported) Prednisone 20 Mg Tab, 40 MG PO DAILY Prescribed by: LUCERO GUTIERREZ on 02/18/19 0177 Patient Home Medication List Home Medication List Reviewed: Yes Review of Systems Review of Systems Constitutional: No chills, No diaphoresis, No fever, No malaise EENTM: No Blurred Vision Respiratory: Cough, Shortness of Air Cardiovascular: Denies Chest Pain, Denies Edema, Denies Palpitations Gastrointestinal: See HPI, Abdominal Pain; Denies Constipated, Denies Diarrhea, Denies Nausea Genitourinary: Denies Burning, Denies Discharge Musculoskeletal: No back pain, No joint pain Skin: No pruritus, No rash Psychiatric/Neurological: Denies Headache, Denies Numbness Past [id number] Hx Patient Social History Alcohol Use: Denies Use Recreational Drug Use: No Smoking Status: Never a Smoker 2nd Hand Smoke Exposure: No Recent Foreign Travel: No Contact w/Someone Who Travel: No Recent Hopitalizations: No Immunizations Up To Date Tetanus Booster (TDap): Unknown Date of Pneumonia Vaccine: Mar 13, 2013 Date of Influenza Vaccine: Mar 28, 2018 Seasonal Allergies Seasonal Allergies: No Past Medical History Surgeries: Yes (COLON POLYP REMOVAL, MULTIPLE HERNIA REPAIRS, D&C) Abdominal, Adenoidectomy, Bowel Surgery, Coronary Stent, Eye Surgery, Gallbladder, Tonsillectomy, Tubal Ligation Respiratory: Yes (CHRONIC DYSPNEA--USES O2 AT HOME, ESPECIALLY AT NIGHT) Sleep Apnea, COPD Cardiac: Yes (TACHYCARDIA, STENTS X 1, CHF) Atrial Fibrillation, Chronic Edema/Swelling, Coronary Artery Disease, Deep Vein Thrombosis, Heart Attack, High Cholesterol, Hypertension Neurological: No 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 Disorders: No Female 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 Disorders: Denies 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[employer]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 History: Tubal Ligation, Menopausal Sexually Transmitted Disease: No HIV/AIDS: No Genitourinary: Yes UTI-Chronic Gastrointestinal: Yes Abdominal Hernia, Diverticulosis, Polyps Musculoskeletal: Yes (CHRONIC GENERALIZED PAIN--NARCOTIC-DEPENDENT) Degenerate Disk Disease, Arthritis, Chronic Back Pain Endocrine: Yes (MORBID OBESITY) Hypothyroidsim, Diabetes, Non-Insulin dep HEENT: Yes Cataract, Glaucoma Loss of Vision: Denies Hearing Impairment: Denies Cancer: Yes (SQUAMOUS CELL SKIN CANCER RIGHT CHEEK 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) Skin, Colon Did You Recieve Any Treatments: Yes What Type of Treatment Did You: Surgical Intervention Psychosocial: No Integumentary: Yes (CELLULITIS; SKIN CANCER; BEDBUGS) Eczema Blood Disorders: Yes (CHRONIC ANEMIA) Adverse Reaction/Blood Tranf: No (HAS HAD BLOOD WITH NO REACTION) Family Medical History Cancer 03 MOTHER, Onset:40's - 50 Family history: Cardiovascular disease 03 FATHER, Onset:40's - 50 03 MOTHER, Onset:30's - 40 Myocardial infarction 03 MOTHER, Onset:30's - 40 Physical Exam Vital Signs Vital Signs - First Documented 04/18/19 23:13 Temp 36.9 Pulse 74 Resp 30 B/P (MAP) 186/71 (109) Pulse Ox 94 O2 Delivery Nasal Cannula O2 Flow Rate 6.00 Capillary Refill : Height/Weight/BMI Height: 5'2.00" Weight: 273lbs. 0.0oz. [id number]; 51.2 BMI Method:Stated General Appearance: WD/WN, no apparent distress HEENT: PERRL/EOMI, pharynx normal Neck: full range of motion, normal inspection Respiratory: lungs clear, normal breath sounds, respiratory distress, decreased breath sounds, accessory muscle use Cardiovascular: normal peripheral pulses, regular rate, rhythm Peripheral Pulses: 2+ Radial Pulses (R), 2+ Radial Pulses (L) Gastrointestinal: normal bowel sounds, soft, hernia, mass (tender pannus and ventral hernia.) Extremities: normal range of motion, no calf tenderness, normal capillary refill Neurologic/Psychiatric: alert, normal mood/affect, oriented x 3 Skin: normal color, warm/dry Procedures/Interventions Suture Size: 4-0 Progress/Results/Core Measures Results/Orders Lab Results Laboratory Tests Test 04/18/19 00:40 04/18/19 23:24 04/19/19 00:48 Range/Units Urine Color YELLOW Urine Clarity CLEAR Urine pH 8 5-9 Urine Specific [place] 1.010 L 1.016-1.022 Urine Protein NEGATIVE NEGATIVE Urine Glucose (UA) NEGATIVE NEGATIVE Urine Ketones NEGATIVE NEGATIVE Urine Nitrite NEGATIVE NEGATIVE Urine Bilirubin NEGATIVE NEGATIVE Urine Urobilinogen NORMAL NORMAL MG/DL Urine Leukocyte Esterase 1+ H NEGATIVE Urine RBC (Auto) 2+ H NEGATIVE Urine RBC NONE /HPF Urine WBC 0-2 /HPF Urine Squamous Epithelial Cells 0-2 /HPF Urine Crystals NONE /LPF Urine Bacteria FEW H /HPF Urine Casts NONE /LPF Urine Mucus NEGATIVE /LPF Urine Culture Indicated NO White Blood Count 10.1 4.3-11.0 10^3/uL Red Blood Count 3.53 L 4.35-5.85 10^6/uL Hemoglobin 9.8 L 11.5-16.0 G/DL Hematocrit 34 L 35-52 % Mean Corpuscular Volume 97 80-99 FL Mean Corpuscular Hemoglobin 28 25-34 PG Mean Corpuscular Hemoglobin Concent 29 L 32-36 G/DL Red Cell Distribution Width 16.5 H 10.0-14.5 % Platelet Count 267 130-400 10^3/uL Mean Platelet Volume 9.0 7.4-10.4 FL Neutrophils (%) (Auto) 72 42-75 % Lymphocytes (%) (Auto) 19 12-44 % Monocytes (%) (Auto) 7 0-12 % Eosinophils (%) (Auto) 2 0-10 % Basophils (%) (Auto) 0 0-10 % Neutrophils # (Auto) 7.3 1.8-7.8 X 10^3 Lymphocytes # (Auto) 1.9 1.0-4.0 X 10^3 Monocytes # (Auto) 0.8 0.0-1.0 X 10^3 Eosinophils # (Auto) 0.2 0.0-0.3 10^3/uL Basophils # (Auto) 0.0 0.0-0.1 10^3/uL Sodium Level 142 135-145 MMOL/L Potassium Level 3.2 L 3.6-5.0 MMOL/L Chloride Level 91 L 98-107 MMOL/L Carbon Dioxide Level 36 H 21-32 MMOL/L Anion Gap 15 H 5-14 MMOL/L Blood Urea Nitrogen 21 H 7-18 MG/DL Creatinine 1.31 H 0.60-1.30 MG/DL Estimat Glomerular Filtration Rate 41 BUN/Creatinine Ratio 16 Glucose Level 103 70-105 MG/DL Calcium Level 8.8 8.5-10.1 MG/DL Corrected Calcium 9.2 8.5-10.1 MG/DL Total Bilirubin 0.6 0.1-1.0 MG/DL Aspartate Amino Transf (AST/SGOT) 18 5-34 U/L Alanine Aminotransferase (ALT/SGPT) 13 0-55 U/L Alkaline Phosphatase 100 40-136 U/L Troponin I < 0.028 <0.028 NG/ML C-Reactive Protein High Sensitivity 1.37 H 0.00-0.50 MG/DL B-Type Natriuretic Peptide 451.7 H <100.0 PG/ML Total Protein 7.3 6.4-8.2 GM/DL Albumin 3.5 3.2-4.5 GM/DL Blood Gas Puncture Site RIGHT RADIAL Blood Gas Patient Temperature 36.9 Arterial Blood pH 7.45 H 7.37-7.43 Arterial Blood Partial Pressure CO2 61 H 35-45 MMHG Arterial Blood Partial Pressure O2 77 L 79-93 MMHG Arterial Blood HCO3 41 *H 23-27 MMOL/L Arterial Blood Total CO2 43.3 H 21.0-31.0 MMOL/L Arterial Blood Oxygen Saturation 96 94-100 % Arterial Blood Base Excess 16.2 H -2.5-2.5 MMOL/L Blake Test POSITIVE Blood Gas Ventilator Setting NO Blood Gas Inspired Oxygen 6 My Orders Orders - MELINA CRONIN Cbc With Automated Diff (04/18/19 23:25) Comprehensive Metabolic Panel (04/18/19 23:25) Hs C Reactive Protein (04/18/19 23:25) BNP (04/18/19 23:25) Ua Culture If Indicated (04/18/19:25) Troponin I (04/18/19 23:25) Continuous Ekg Monitoring (04/18/19:25) Ekg Tracing (04/18/19 23:25) Ed Iv/Invasive Line Start (04/18/19 23:25) Ns Iv 500 Ml (Sodium Chloride 0.9%) (04/18/19 23:25) Albuterol/Ipra Inhalation Soln (Duoneb I (04/18/19 23:30) Svn Small Volume Nebulizer (04/18/19 23:27) O2 (04/18/19 23:27) Fentanyl Injection (Sublimaze Injection (04/18/19 23:30) Ketamine Syringe (Ed Only) (Ketamine Syr (04/18/19 23:30) Chest 1 View, Ap/Pa Only (04/19/19 00:01) Ct Abdomen/Pelvis Wo (04/19/19 00:10) Arterial Blood Gas (04/19/19 00:44) Fentanyl Injection (Sublimaze Injection (04/19/19 01:15) Vapotherm - Admin Rt Rfs (04/19/19 01:06) Albuterol/Ipra Inhalation Soln (Duoneb I (04/19/19 01:45) Medications Given in ED Current Medications Medications Dose Ordered Sig/Giuseppe Route Start Time Stop Time Status Last Admin Dose Admin Albuterol/ Ipratropium 3 ml ONCE ONCE INH 04/18/19 23:30 04/18/19 23:31 DC 04/19/19 00:05 3 ML Albuterol/ Ipratropium 3 ml ONCE ONCE INH 04/19/19 01:45 04/19/19 01:46 DC 04/19/19 01:40 3 ML Fentanyl Citrate 50 mcg ONCE ONCE IVP 04/18/19 23:30 04/18/19 23:31 DC 04/19/19 00:01 50 MCG Fentanyl Citrate 50 mcg ONCE ONCE IVP 04/19/19 01:15 04/19/19 01:16 DC 04/19/19 01:43 50 MCG Ketamine HCl 25 mg ONCE ONCE IV 04/18/19 23:30 04/18/19 23:31 DC 04/19/19 00:05 25 MG Sodium Chloride 500 ml @ 0 mls/hr Q0M ONCE IV 04/18/19 23:25 04/18/19 23:27 DC 04/19/19 00:00 0 MLS/HR Vital Signs/I&O 04/18/19 04/18/19 04/18/19 04/18/19 23:13 23:14 23:16 23:27 Temp 36.9 Pulse 74 Resp 30 B/P (MAP) 186/71 (109) Pulse Ox 94 78 88 94 O2 Delivery Nasal Cannula Nasal Cannula OxyMask OxyMask O2 Flow Rate 6.00 4.00 11.00 5.00 Progress Progress Note #1: Time: 23:55 Progress Note Patient presents with some belly pain as well as acute hypoxic distress. She is satting in the mid 60s on 2 liters by nasal cannula with a good pulsatile waveform. Put her on a simple mask at 12 L and this brought her up to the mid to upper 90s at rest. Goal is to keep her between 88 and 94% with her history of COPD. We'll get an ABG, give her a DuoNeb get a chest x-ray labs and plan a CT of her abdomen pelvis with IV contrast preferably. With her history of CHF we will get a BNP and start just a small fluid bolus. Progress Note #2: Time: 00:48 Progress Note After the breathing treatment and pain medicine the patient says her pain is completely gone. Her breathing is much better and she is down to 6 L by oxygen mask and satting around 94%. An ABG has been obtained and sent. We will obtain x-rays next. Because of her borderline renal function we will obtain CT of the abdomen pelvis without IV contrast. Progress Note #3: Time: 02:02 Progress Note The patient's hypoxia is controlled now. As long she's not exerting herself her oxygen he stays in the 88-95% range on her baseline 4 L. Plan to treat her with Bactrim outpatient for her panniculitis. Initial ECG Impression Date: Apr 19, 2019 Initial ECG Impression Time: 23:33 Initial ECG Rate: 73 Initial ECG Rhythm: Normal Sinus Initial ECG Intervals: Normal Initial ECG Impression: Normal Comment No clinically relevant ST elevation or depression. Normal sinus rhythm. Diagnostic Imaging Diagonstic Imaging: Xray Plain Films/CT/US/NM/MRI: chest Comments Clinically challenging radiograph due to body habitus. No overt evidence of an infiltrate or other acute cardiopulmonary process. Reviewed: Reviewed by Me Diagonstic Imaging: CT (without IV contrast) Plain Films/CT/US/NM/MRI: abdomen, pelvis Comments Findings compatible with cellulitis/panniculitis of her ventral greater than dorsal subcutaneous fat of the abdominal wall. Reviewed: Reviewed by Me Departure Impression Primary Impression: Panniculitis Additional Impressions: COPD (chronic obstructive pulmonary disease) Qualified Codes: J42 - Unspecified chronic bronchitis Chronic respiratory failure with hypoxia and hypercapnia Disposition: 01 HOME, SELF-CARE Condition: Improved Departure-Patient Inst. Decision time for Depature: 02:03 Referrals: JAN HERNANDEZ MD (PCP/Family) Primary Care Physician Patient Instructions: Cellulitis (Skin Infection), Adult (DC) Add. Discharge Instructions: Continue to use your DuoNeb breathing treatments as necessary if you become short of breath. Plan to make follow-up appointment in the next week with your primary care doctor for reevaluation. Return to the ER if you begin to experience fevers, intractable pain nausea and vomiting or other worrisome symptoms. Bactrim one tablet twice daily for the next 7 days. Scripts Sulfamethoxazole/Trimethoprim (Bactrim Ds Tablet) 1 Each Tablet 1 EACH PO BID for 7 Days, #14 TAB 0 Refills Prov: MELINA CRONIN 04/19/19 MELINA CRONIN Apr 18, 2019 23:43 POS
[2019-04-18 23:54] LABS: ALANINE AMINOTRANSFERASE 13 U/L (0-55); ALBUMIN 3.5 GM/DL (3.2-4.5); ALKALINE PHOSPHATASE 100 U/L (40-136); BILIRUBIN,TOTAL 0.6 MG/DL (0.1-1.0); BUN/CREATININE RATIO 16; CALCIUM 8.8 MG/DL (8.5-10.1); CHLORIDE 91 MMOL/L (98-107); CREATININE SERUM 1.31 MG/DL (0.60-1.30); GFR ESTIMATED 41; GLUCOSE 103 MG/DL (70-105); POTASSIUM 3.2 MMOL/L (3.6-5.0); SODIUM 142 MMOL/L (135-145); TOTAL PROTEIN 7.3 GM/DL (6.4-8.2)
[2019-04-19 00:15] LABS: CARBON DIOXIDE 36 MMOL/L (21-32)
[2019-04-19 00:47] LABS: BILIRUBIN,URINE NEGATIVE (NEGATIVE); CLARITY,URINE CLEAR; COLOR,URINE YELLOW; GLUCOSE, URINE (UA) NEGATIVE (NEGATIVE); KETONES,URINE NEGATIVE (NEGATIVE); LEUKOCYTE ESTERASE ,URINE 1+ (NEGATIVE); NITRITE,URINE NEGATIVE (NEGATIVE); PH,URINE 8 (5-9); PROTEIN,URINE NEGATIVE (NEGATIVE)
[2019-04-19 00:54] LABS: ABG BASE EXCESS 16.2 MMOL/L (-2.5-2.5); ABG OXYGEN SATURATION 96 % (94-100); ABG PCO2 61 MMHG (35-45); ABG PH 7.45 (7.37-7.43); ABG PO2 77 MMHG (79-93); ABG TCO2 43.3 MMOL/L (21.0-31.0)
[2019-04-19 00:58] LABS: ALLENS TEST POSITIVE; INSPIRED O2 6; PATIENT TEMP 36.9; VENTILATOR NO
[2019-04-19 01:05] LABS: BACTERIA,URINE FEW /HPF; SQUAMOUS EPITHELIAL CELL,UR 0-2 /HPF; WBC,URINE 0-2 /HPF
[2019-04-19] MEDS ORDERED: fentaNYL INJECTION 100 MCG/2 ML AMP IVP ONE (01:15)
[2019-04-19] MEDS ORDERED: RT-ALBUTEROL/IPRATROPIUM 3 ML (DUONEB) VIAL ONE (01:35)
[2019-04-19] MEDS ORDERED: RT-ALBUTEROL/IPRATROPIUM 3 ML (DUONEB) VIAL INH ONE (01:45)
[2019-04-19] MEDS ORDERED: SULF1TAB35 PO (02:04)
[2019-04-19] MEDS ORDERED: TRIM/SULFAMETH 160/800 (SEPTRA DS) TAB PO ONE (02:15)
[2019-04-19 02:19] VITALS: BP 135/65
--- NOTE | 2019-04-19 06:32 | Diagnostic Imaging Report ---
PROCEDURE: CT abdomen and pelvis without contrast. TECHNIQUE: Multiple contiguous axial images were obtained through the abdomen and pelvis without the use of intravenous contrast. Auto Exposure Controls were utilized during the CT exam to meet ALARA standards for radiation dose reduction. INDICATION: Abdominal pain and shortness of breath. FINDINGS: There are patchy infiltrates in the lung bases bilaterally. There are coronary artery calcifications. The visualized portions of the liver are grossly unremarkable. Spleen is normal. Pancreas, adrenal glands and kidneys are unremarkable. Aorta is nonaneurysmal. The bowel gas pattern is nonspecific. There is no free air. The patient's large body habitus degrades much of the detail. There is incomplete inclusion of the right ventral abdominal wall in the [id number]. There is marked inflammatory stranding in the ventral abdominal wall most conspicuous inferiorly. This is similar to prior examination. There is some soft tissue stranding and calcification also present in the dorsal subcutaneous fat overlying the sacrum. This too is similar to prior examination. There are degenerative changes in the spine. IMPRESSION: Persistent findings compatible with cellulitis/panniculitis of the ventral greater than dorsal subcutaneous fat. Patchy bibasilar pulmonary infiltrates. Coronary artery calcification. Dictated by: Dictated on workstation # [id number]
--- NOTE | 2019-04-19 06:48 | Diagnostic Imaging Report ---
INDICATION: Shortness of breath COMPARISON: 02/18/19 FINDINGS: There is cardiomegaly. There is venous congestion. There is a right basilar pneumonia with right pleural effusion. There is no pneumothorax. IMPRESSION: Technically limited exam due to underpenetration. There appears to be a right basilar infiltrate suspect for pneumonia with a right pleural effusion. Cardiomegaly and some central pulmonary venous congestion. Dictated by: Dictated on workstation # [id number]
== END 2019-04-19 02:20 | disposition home or self-care (01) ==
LOC: EDUNIT# 23:11 → ER 23:13
DX: M79.3 Panniculitis, unspecified (principal); J44.9 Chronic obstructive pulmonary disease, unspecified; J96.12 Chronic respiratory failure with hypercapnia; J96.11 Chronic respiratory failure with hypoxia; I10 Essential (primary) hypertension; E11.9 Type 2 diabetes mellitus without complications; E78.00 Pure hypercholesterolemia, unspecified; I25.10 Atherosclerotic heart disease of native coronary artery without angina pectoris; I25.2 Old myocardial infarction; I48.91 Unspecified atrial fibrillation; E03.9 Hypothyroidism, unspecified; D64.9 Anemia, unspecified; Z85.038 Personal history of other malignant neoplasm of large intestine; Z85.828 Personal history of other malignant neoplasm of skin; Z90.49 Acquired absence of other specified parts of digestive tract; Z88.1 Allergy status to other antibiotic agents; Z88.6 Allergy status to analgesic agent; Z88.8 Allergy status to other drugs, medicaments and biological substances; Z79.82 Long term (current) use of aspirin; Z86.718 Personal history of other venous thrombosis and embolism; Z79.84 Long term (current) use of oral hypoglycemic drugs; Z90.89 Acquired absence of other organs; Z87.440 Personal history of urinary (tract) infections; Z95.5 Presence of coronary angioplasty implant and graft; Z98.51 Tubal ligation status; Z68.43 Body mass index [BMI] 50.0-59.9, adult; Z82.49 Family history of ischemic heart disease and other diseases of the circulatory system
CPT/HCPCS: 36415; 36600; 71045; 74176; 80053; 81000; 82805; 83880; 84484; 85025; 86141; 93005; 94640

== ENCOUNTER 2019-05-06 13:26 | Inpatient (IN) | payer MEDICAID ==
[2019-05-06] VITALS (7 sets, daily range): BP systolic 126–191; BP diastolic 54–81
[~2019-05-06] VITALS: Ht 157 cm; Wt 140.8 kg
[2019-05-06] MEDS ORDERED: ACETAMINOPHEN 500 MG TAB (TYLENOL) PO ONE (13:45)
[2019-05-06 13:46] LABS: BASOPHILS % (AUTO) 0 % (0-10); EOSINOPHILS # (AUTO) 0.1 10^3/uL (0.0-0.3); EOSINOPHILS % (AUTO) 1 % (0-10); HEMATOCRIT 34 % (35-52); HEMOGLOBIN 9.3 G/DL (11.5-16.0); LYMPHOCYTES # (AUTO) 1.2 X 10^3 (1.0-4.0); LYMPHOCYTES % (AUTO) 8 % (12-44); MEAN CORPUSCULAR HEMOGLOBIN 27 PG (25-34); MEAN CORPUSCULAR HGB CONC 28 G/DL (32-36); MEAN CORPUSCULAR VOLUME 99 FL (80-99); MONOCYTES # (AUTO) 1.4 X 10^3 (0.0-1.0); MONOCYTES % (AUTO) 9 % (0-12); NEUTROPHILS # (AUTO) 12.2 X 10^3 (1.8-7.8); NEUTROPHILS % (AUTO) 82 % (42-75); PLATELET COUNT 223 10^3/uL (130-400); RED CELL DISTRIBUTION WIDTH 16.4 % (10.0-14.5); WHITE BLOOD COUNT 14.9 10^3/uL (4.3-11.0)
[2019-05-06] MEDS ORDERED: MORP30CA16 PO (13:56)
[2019-05-06 14:09] LABS: ALBUMIN 3.5 GM/DL (3.2-4.5); BILIRUBIN,TOTAL 0.6 MG/DL (0.1-1.0); CALCIUM 9.4 MG/DL (8.5-10.1); CREATININE SERUM 1.18 MG/DL (0.60-1.30); POTASSIUM 4.5 MMOL/L (3.6-5.0); TOTAL PROTEIN 7.1 GM/DL (6.4-8.2)
[2019-05-06 14:11] LABS: ANISOCYTOSIS SLIGHT; BAND NEUTROPHILS 0 %; BASOPHILS % (MANUAL) 0 %; EOSINOPHILS % (MANUAL) 1 %; LYMPHOCYTES % (MANUAL) 8 %; MONOCYTES % (MANUAL) 4 %; NEUTROPHILS % (MANUAL) 87 %; POLYCHROMASIA SLIGHT
[2019-05-06 14:20] LABS: ABG BASE EXCESS 8.7 MMOL/L (-2.5-2.5); ABG OXYGEN SATURATION 92 % (94-100); ABG PO2 76 MMHG (79-93); ABG TCO2 36.7 MMOL/L (21.0-31.0)
[2019-05-06 14:23] LABS: ABG PCO2 71 MMHG (35-45); ABG PH 7.32 (7.37-7.43)
[2019-05-06 14:24] LABS: INSPIRED O2 30%; PATIENT TEMP 37.9; VENTILATOR NO
--- NOTE | 2019-05-06 14:34 | Diagnostic Imaging Report ---
Portable chest compared to prior from 04/19/2019. INDICATION: Respiratory distress. FINDINGS: Examination is limited by large body habitus. There is again marked opacification present of the right chest which is largely contributed to by prominent mediastinal fat and shift of the mediastinum to the right. This has not significantly changed from the prior examination allowing for differences in rotation and technique. The left lung remains aerated. Central pulmonary vascularity appears unremarkable. IMPRESSION: Technically limited examination due to large body habitus. There again is increased density demonstrated at the right lung base which appears to be predominantly due to mediastinal structures on prior CT examination. The right apex remains aerated and the left lung appears clear. Dictated by: Dictated on workstation # [id number]
--- NOTE | 2019-05-06 14:36 | ED Cough/URI ---
General Chief Complaint: Respiratory Problems Stated Complaint: SOA Nursing Triage Note: PT PRESENTS TO ED WITH COMPLAINTS OF SOA X2-3 DAYS. PT ALSO REPORTS UNPROUCTIVE COUGH, GENERALIZED WEAKNESS, AN LETHARGY. Sepsis Screen: No Definite Risk Source: patient Exam Limitations: no limitations History of Present Illness Date Seen by Provider: May 06, 2019 Time Seen by Provider: 14:33 Initial Comments To ER with reports of shortness of breath 2-3 days. She has a history of COPD and wears oxygen at 2 L per nasal cannula at home. She was febrile upon EMS arrival at 101.3. Timing/Duration: just prior to arrival Severity/Quality: moderate Modifying Factors: Improves With Coughing Associated Symptoms: cough Allergies and Home Medications Allergies Coded Allergies: ceftriaxone (Verified Allergy, Unknown, 08/02/17) ibuprofen (Verified Allergy, Unknown, PT TAKES ASA AT HOME, 08/02/17) PER MED REC diazepam (Verified Adverse Reaction, Severe, 12/04/18) Home Medications Albuterol Sulfate 1 Puff Puff, 2 PUFF INH Q6H PRN for SHORTNESS OF BREATH, (Reported) Albuterol Sulfate 2.5 Mg/3 Ml Vial.neb, 2.5 MG INH Q4H PRN for WHEEZING Prescribed by: LUCERO GUTIERREZ on 02/18/19 3655 Aspirin 81 Mg Tablet.dr, 81 MG PO DAILY, (Reported) Atorvastatin Calcium 80 Mg Tablet, 80 MG PO HS, (Reported) Isosorbide Mononitrate 30 Mg Tab.er.24h, 30 MG PO DAILY, (Reported) Levothyroxine Sodium 200 Mcg Tablet, 200 MCG PO DAILY, (Reported) Metformin HCl 500 Mg Tablet, 500 MG PO BID, (Reported) Metoprolol Tartrate 25 Mg Tablet, 25 MG PO BID, (Reported) Morphine Sulfate 30 Mg Cap.er.pel, 30 MG PO BID, (Reported) Potassium Chloride 20 Meq Tab.er.prt, 20 MEQ PO DAILY, (Reported) Patient Home Medication List Home Medication List Reviewed: Yes Review of Systems Review of Systems Constitutional: see HPI; No chills; fever EENTM: see HPI Respiratory: see HPI, cough Cardiovascular: no symptoms reported Genitourinary: no symptoms reported Musculoskeletal: no symptoms reported Skin: no symptoms reported Psychiatric/Neurological: No Symptoms Reported Hematologic/Lymphatic: No Symptoms Reported Past Cuuagyz-Fdiaby-Papssa Hx Patient Social History Alcohol Use: Denies Use Recreational Drug Use: No Smoking Status: Never a Smoker 2nd Hand Smoke Exposure: No Recent Foreign Travel: No Contact w/Someone Who Travel: No Recent Infectious Disease Expo: No Recent Hopitalizations: No Physical Abuse: No Sexual Abuse: No Mistreated: No Fear: No Immunizations Up To Date Tetanus Booster (TDap): Unknown Date of Pneumonia Vaccine: Mar 13, 2013 Date of Influenza Vaccine: Mar 28, 2018 Seasonal Allergies Seasonal Allergies: No Past Medical History Surgeries: Yes (COLON POLYP REMOVAL, MULTIPLE HERNIA REPAIRS, D&C) Abdominal, Adenoidectomy, Bowel Surgery, Coronary Stent, Eye Surgery, Gallbladder, Tonsillectomy, Tubal Ligation Respiratory: Yes (CHRONIC DYSPNEA--USES O2 AT HOME, ESPECIALLY AT NIGHT) Sleep Apnea, COPD Cardiac: Yes (TACHYCARDIA, STENTS X 1, CHF) Atrial Fibrillation, Chronic Edema/Swelling, Coronary Artery Disease, Deep Vein Thrombosis, Heart Attack, High Cholesterol, Hypertension Neurological: No 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 Disorders: No Female 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 Disorders: Denies 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 History: Tubal Ligation, Menopausal Sexually Transmitted Disease: No HIV/AIDS: No Genitourinary: Yes UTI-Chronic Gastrointestinal: Yes Abdominal Hernia, Diverticulosis, Polyps Musculoskeletal: Yes (CHRONIC GENERALIZED PAIN--NARCOTIC-DEPENDENT) Degenerate Disk Disease, Arthritis, Chronic Back Pain Endocrine: Yes (MORBID OBESITY) Hypothyroidsim, Diabetes, Non-Insulin dep HEENT: Yes Cataract, Glaucoma Loss of Vision: Denies Hearing Impairment: Denies Cancer: Yes (SQUAMOUS CELL SKIN CANCER RIGHT CHEEK 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) Skin, Colon Did You Recieve Any Treatments: Yes What Type of Treatment Did You: Surgical Intervention Psychosocial: No Integumentary: Yes (CELLULITIS; SKIN CANCER; BEDBUGS) Eczema Blood Disorders: Yes (CHRONIC ANEMIA) Adverse Reaction/Blood Tranf: No (HAS HAD BLOOD WITH NO REACTION) Family Medical History Cancer 03 MOTHER, Onset:40's - 50 Family history: Cardiovascular disease 03 FATHER, Onset:40's - 50 03 MOTHER, Onset:30's - 40 Myocardial infarction 03 MOTHER, Onset:30's - 40 Physical Exam Vital Signs - First Documented 05/06/19 13:35 Temp 37.9 Pulse 81 Resp 16 B/P (MAP) 176/79 (111) Pulse Ox 92 O2 Delivery Nasal Cannula O2 Flow Rate 5.00 Capillary Refill : Less Than 3 Seconds Height: 5'2.00" Weight: 273lbs. 0.0oz. 123.946227zc; 50.00 BMI Method:Stated General Appearance: WD/WN, no apparent distress, obese (chronically ill and appears older than stated age), other (alert and oriented but oxygen saturation is 79-80% on 2 L. She was then started on BiPAP.) Eyes: Bilateral Eye Normal Inspection, Bilateral Eye PERRL, Bilateral Eye EOMI HEENT: PERRL/EOMI, normal ENT inspection Neck: non-tender, full range of motion Respiratory: no respiratory distress, decreased breath sounds Cardiovascular: regular rate, rhythm Gastrointestinal: normal bowel sounds, non tender, soft Extremities: normal range of motion, non-tender Neurologic/Psychiatric: alert, normal mood/affect, oriented x 3 Skin: normal color, warm/dry Focused Exam Lactate Level 05/06/19 13:33: Lactic Acid Level 4.33*H Lactic Acid Level Laboratory Tests Test 05/06/19 13:33 Lactic Acid Level 4.33 MMOL/L (0.50-2.00) *H Procedures/Interventions Suture Size: 4-0 Progress/Results/Core Measures Suspected Sepsis Recent Fever Within 48 Hours: Yes Infection Criteria Present: Suspected New Infection New/Unexplained Altered Menta: No Sepsis Screen: No Definite Risk SIRS Temperature: Pulse: 73 Respiratory Rate: 16 Laboratory Tests 05/06/19 13:33: White Blood Count 14.9H Blood Pressure 176 /79 Mean: 111 05/06/19 13:33: Lactic Acid Level 4.33*H Laboratory Tests 05/06/19 13:33: Creatinine 1.18, Platelet Count 223, Total Bilirubin 0.6 Results/Orders Lab Results Laboratory Tests Test 05/06/19 13:33 05/06/19 14:15 Range/Units White Blood Count 14.9 H 4.3-11.0 10^3/uL Red Blood Count 3.39 L 4.35-5.85 10^6/uL Hemoglobin 9.3 L 11.5-16.0 G/DL Hematocrit 34 L 35-52 % Mean Corpuscular Volume 99 80-99 FL Mean Corpuscular Hemoglobin 27 25-34 PG Mean Corpuscular Hemoglobin Concent 28 L 32-36 G/DL Red Cell Distribution Width 16.4 H 10.0-14.5 % Platelet Count 223 130-400 10^3/uL Mean Platelet Volume 10.0 7.4-10.4 FL Neutrophils (%) (Auto) 82 H 42-75 % Lymphocytes (%) (Auto) 8 L 12-44 % Monocytes (%) (Auto) 9 0-12 % Eosinophils (%) (Auto) 1 0-10 % Basophils (%) (Auto) 0 0-10 % Neutrophils # (Auto) 12.2 H 1.8-7.8 X 10^3 Lymphocytes # (Auto) 1.2 1.0-4.0 X 10^3 Monocytes # (Auto) 1.4 H 0.0-1.0 X 10^3 Eosinophils # (Auto) 0.1 0.0-0.3 10^3/uL Basophils # (Auto) 0.0 0.0-0.1 10^3/uL Neutrophils % (Manual) 87 % Lymphocytes % (Manual) 8 % Monocytes % (Manual) 4 % Eosinophils % (Manual) 1 % Basophils % (Manual) 0 % Band Neutrophils 0 % Polychromasia SLIGHT Anisocytosis SLIGHT Sodium Level 140 135-145 MMOL/L Potassium Level 4.5 3.6-5.0 MMOL/L Chloride Level 98 98-107 MMOL/L Carbon Dioxide Level 30 21-32 MMOL/L Anion Gap 12 5-14 MMOL/L Blood Urea Nitrogen 22 H 7-18 MG/DL Creatinine 1.18 0.60-1.30 MG/DL Estimat Glomerular Filtration Rate 46 BUN/Creatinine Ratio 19 Glucose Level 112 H 70-105 MG/DL Lactic Acid Level 4.33 *H 0.50-2.00 MMOL/L Calcium Level 9.4 8.5-10.1 MG/DL Corrected Calcium 9.8 8.5-10.1 MG/DL Total Bilirubin 0.6 0.1-1.0 MG/DL Aspartate Amino Transf (AST/SGOT) 13 5-34 U/L Alanine Aminotransferase (ALT/SGPT) 10 0-55 U/L Alkaline Phosphatase 110 40-136 U/L Total Protein 7.1 6.4-8.2 GM/DL Albumin 3.5 3.2-4.5 GM/DL Blood Gas Puncture Site RT RADIAL Blood Gas Patient Temperature 37.9 Arterial Blood pH 7.32 *L 7.37-7.43 Arterial Blood Partial Pressure CO2 71 *H 35-45 MMHG Arterial Blood Partial Pressure O2 76 L 79-93 MMHG Arterial Blood HCO3 35 H 23-27 MMOL/L Arterial Blood Total CO2 36.7 H 21.0-31.0 MMOL/L Arterial Blood Oxygen Saturation 92 L 94-100 % Arterial Blood Base Excess 8.7 H -2.5-2.5 MMOL/L Blake Test NA Blood Gas Ventilator Setting NO Blood Gas Inspired Oxygen 30% Micro Results Microbiology 05/06/19 Influenza Types A,B Antigen (GONZALES) - Final, Complete My Orders Orders - ANISHA NIEVES APRN Cbc With Automated Diff (05/06/19 13:38) Comprehensive Metabolic Panel (05/06/19 13:38) Chest 1 View, Ap/Pa Only (05/06/19 13:38) Influenza A And B Antigens (05/06/19 13:38) Blood Culture (05/06/19 13:38) Lactic Acid Analyzer (05/06/19 13:38) Ekg Tracing (05/06/19 13:38) Ed Iv/Invasive Line Start (05/06/19 13:38) Acetaminophen Tablet (Tylenol Tablet) (05/06/19 13:45) Manual Differential (05/06/19 13:33) Bipap (Bilevel) Set Up (05/06/19 14:00) Arterial Blood Gas (05/06/19 14:17) Methylprednisolone Sod Succ (Solu-Medrol (05/06/19 14:45) Piperacillin Sodium/Tazobactam (Zosyn Vi (05/06/19 14:45) Normal Saline Bolus 1,000ml (05/06/19 15:00) Normal Saline 500 Ml Iv (05/06/19 15:00) Medications Given in ED Current Medications Medications Dose Ordered Sig/Giuseppe Route Start Time Stop Time Status Last Admin Dose Admin Acetaminophen 1,000 mg ONCE ONCE PO 05/06/19 13:45 05/06/19 13:46 DC 05/06/19 14:02 1,000 MG Vital Signs/I&O 05/06/19 05/06/19 13:35 14:06 Temp 37.9 Pulse 81 73 Resp 16 16 B/P (MAP) 176/79 (111) Pulse Ox 92 O2 Delivery Nasal Cannula O2 Flow Rate 5.00 30.00 Capillary Refill : Less Than 3 Seconds Blood Pressure Mean: 111 POS Departure Communication (Admissions) Time/Spoke to Admitting Phy: 14:56 All discussed we'll admit on the severe sepsis protocol, consult Dr. Perkins, using Zosyn, and fluids and fluid resuscitation based on ideal body weight White count, fever, lactic greater than 4 she meet severe sepsis criteria, I'll give her the fluid bolus based on ideal body weight which is about 50 kg. Impression Primary Impression: Hypercapnia Additional Impression: Pneumonia Disposition: 01 HOME, SELF-CARE Condition: Stable Admissions Decision to Admit Reason: Admit from ER (General) Decision to Admit/Date: May 06, 2019 Time/Decision to Admit Time: 14:56 Departure-Patient Inst. Referrals: JAN HERNANDEZ MD (PCP/Family) Primary Care Physician ANISHA NIVEES APRN May 06, 2019 14:35 POS
[2019-05-06] MEDS ORDERED: PIPERACILLIN SODIUM/TAZOBACTAM 4.5 GM in NS (IVPB) 100 ML IV ONE (14:45)
[2019-05-06] MEDS ORDERED: methylPREDNISolone 125 MG (Solu-MEDROL) VIAL IVP ONE (14:45)
[2019-05-06] MEDS ORDERED: NS IV 1000 ML 1,000 ML IV SCH (15:00)
[2019-05-06] MEDS ORDERED: NS IV 500 ML 500 ML IV SCH (15:00)
[2019-05-06] MEDS ORDERED: ACETAMINOPHEN 325 MG TABLET PO PRN (16:00)
[2019-05-06] MEDS ORDERED: RT-ALBUTEROL/IPRATROPIUM 3 ML (DUONEB) VIAL INH PRN (16:30)
[2019-05-06] MEDS: NS IV 1000 ML 1,000 ML IV SCH (17:14)
[2019-05-06] MEDS: PIPERACILLIN/TAZO 4.5 GM/NS 100 ML IV SCH ×2 (20:37)
[2019-05-06] MEDS: RT-ALBUTEROL/IPRATROPIUM 3 ML (DUONEB) VIAL INH SCH (20:57)
[2019-05-07] VITALS (23 sets, daily range): BP systolic 118–161; BP diastolic 47–124
[2019-05-07] MEDS: NS IV 1000 ML 1,000 ML IV SCH (00:42)
[2019-05-07] MEDS: RT-ALBUTEROL/IPRATROPIUM 3 ML (DUONEB) VIAL INH SCH ×6 (02:59→21:26)
[2019-05-07 03:30] LABS: BASOPHILS % (AUTO) 0 % (0-10); EOSINOPHILS % (AUTO) 0 % (0-10); HEMATOCRIT 30 % (35-52); HEMOGLOBIN 8.5 G/DL (11.5-16.0); LYMPHOCYTES # (AUTO) 0.4 X 10^3 (1.0-4.0); LYMPHOCYTES % (AUTO) 5 % (12-44); MEAN CORPUSCULAR HEMOGLOBIN 27 PG (25-34); MEAN CORPUSCULAR HGB CONC 28 G/DL (32-36); MEAN CORPUSCULAR VOLUME 97 FL (80-99); MEAN PLATELET VOLUME 9.7 FL (7.4-10.4); MONOCYTES # (AUTO) 0.1 X 10^3 (0.0-1.0); MONOCYTES % (AUTO) 1 % (0-12); NEUTROPHILS # (AUTO) 8.5 X 10^3 (1.8-7.8); NEUTROPHILS % (AUTO) 94 % (42-75); PLATELET COUNT 183 10^3/uL (130-400); RED CELL DISTRIBUTION WIDTH 15.9 % (10.0-14.5)
[2019-05-07 03:32] LABS: ABG BASE EXCESS 9.3 MMOL/L (-2.5-2.5); ABG OXYGEN SATURATION 97 % (94-100); ABG PCO2 61 MMHG (35-45); ABG PH 7.37 (7.37-7.43); ABG PO2 85 MMHG (79-93); ABG TCO2 36.8 MMOL/L (21.0-31.0)
[2019-05-07 03:34] LABS: ALLENS TEST POSITIVE; INSPIRED O2 40% BIPAP; PATIENT TEMP 36.2; VENTILATOR NO
[2019-05-07 03:56] LABS: ALBUMIN 3.1 GM/DL (3.2-4.5); BILIRUBIN,TOTAL 0.6 MG/DL (0.1-1.0); CALCIUM 8.7 MG/DL (8.5-10.1); CREATININE SERUM 1.07 MG/DL (0.60-1.30); POTASSIUM 4.6 MMOL/L (3.6-5.0); TOTAL PROTEIN 6.2 GM/DL (6.4-8.2)
[2019-05-07] MEDS ORDERED: MAGNESIUM 1 GM/100 ML IVPB 200 ML IV ONE (04:29)
[2019-05-07] MEDS: POTASSIUM CL 10MEQ/50ML IVPB 50 ML IV SCH (04:30)
[2019-05-07] MEDS: MAGNESIUM 1 GM/100 ML IVPB 100 ML IV SCH ×2 (04:30→04:39)
[2019-05-07] MEDS: KCL 20 MEQ TAB (K-DUR) PO SCH (04:30)
[2019-05-07] MEDS: PIPERACILLIN/TAZO 4.5 GM/NS 100 ML IV SCH ×6 (04:39→19:57)
[2019-05-07] MEDS ORDERED: BUMETANIDE 1 MG/4 ML (BUMEX) VIAL IV ONE (05:15)
[2019-05-07] MEDS ORDERED: BUMETANIDE 1 MG/4 ML (BUMEX) VIAL ONE (05:25)
--- NOTE | 2019-05-07 06:48 | Pulmonary Consultation ---
History of Present Illness History of Present Illness Date Seen by Provider: May 07, 2019 Time Seen by Provider: 06:43 Date of Admission History of Present Illness 63yo with hx of severe oxygen dependent COPD (uses 2 liters at home), morbid obesity, multiple hospitalizations for respiratory distress, bed bug infestations, presented to ED secondary to worsening SOB and unproductive cough over the last 2-3 days. Pt was found to be lethargic and in respiratory distress. She was admitted to ICU and placed on BiPAP with close ICU observation. PT also had fever upon ED arrival of 101.3. currently unable to obtain ROS secondary to lethargy and BiPAP use. Allergies and Home Medications Allergies Coded Allergies: ceftriaxone (Verified Allergy, Unknown, 08/02/17) ibuprofen (Verified Allergy, Unknown, PT TAKES ASA AT HOME, 08/02/17) PER MED REC diazepam (Verified Adverse Reaction, Severe, 12/04/18) Home Medications Albuterol Sulfate 1 Puff Puff, 2 PUFF INH Q6H PRN for SHORTNESS OF BREATH, (Reported) Albuterol Sulfate 2.5 Mg/3 Ml Vial.neb, 2.5 MG INH Q4H PRN for WHEEZING Prescribed by: LUCERO GUTIERREZ on 02/18/19 3489 Aspirin 81 Mg Tablet.dr, 81 MG PO DAILY, (Reported) Atorvastatin Calcium 80 Mg Tablet, 80 MG PO HS, (Reported) Isosorbide Mononitrate 30 Mg Tab.er.24h, 30 MG PO DAILY, (Reported) Levothyroxine Sodium 200 Mcg Tablet, 200 MCG PO DAILY, (Reported) Metformin HCl 500 Mg Tablet, 500 MG PO BID, (Reported) Metoprolol Tartrate 25 Mg Tablet, 25 MG PO BID, (Reported) Morphine Sulfate 30 Mg Cap.er.pel, 30 MG PO BID, (Reported) Potassium Chloride 20 Meq Tab.er.prt, 20 MEQ PO DAILY, (Reported) Past Nnecyhg-Wulwxk-Apukaf Hx Patient Social History Alcohol Use: Denies Use Recreational Drug Use: No Smoking Status: Never a Smoker 2nd Hand Smoke Exposure: No Recent Foreign Travel: No Contact w/Someone Who Travel: No Recent Infectious Disease Expo: No Recent Hopitalizations: No Physical Abuse: No Sexual Abuse: No Mistreated: No Fear: No Immunizations Up To Date Tetanus Booster (TDap): Unknown Date of Pneumonia Vaccine: Mar 13, 2013 Date of Influenza Vaccine: Apr 23, 2019 Seasonal Allergies Seasonal Allergies: No Past Medical History Surgeries: Yes (COLON POLYP REMOVAL, MULTIPLE HERNIA REPAIRS, D&C) Abdominal, Adenoidectomy, Bowel Surgery, Coronary Stent, Eye Surgery, Gallbladder, Tonsillectomy, Tubal Ligation Respiratory: Yes (CHRONIC DYSPNEA--USES O2 AT HOME, ESPECIALLY AT NIGHT) Sleep Apnea, COPD Cardiac: Yes (TACHYCARDIA, STENTS X 1, CHF) Atrial Fibrillation, Chronic Edema/Swelling, Coronary Artery Disease, Deep Vein Thrombosis, Heart Attack, High Cholesterol, Hypertension Neurological: No 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 Disorders: No Female 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 Disorders: Denies 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: 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, Menopausal Sexually Transmitted Disease: No HIV/AIDS: No Genitourinary: Yes UTI-Chronic Gastrointestinal: Yes Abdominal Hernia, Diverticulosis, Polyps Musculoskeletal: Yes (CHRONIC GENERALIZED PAIN--NARCOTIC-DEPENDENT) Degenerate Disk Disease, Arthritis, Chronic Back Pain Endocrine: Yes (MORBID OBESITY) Hypothyroidsim, Diabetes, Non-Insulin dep HEENT: Yes Cataract, Glaucoma Loss of Vision: Denies Hearing Impairment: Denies Cancer: Yes (SQUAMOUS CELL SKIN CANCER RIGHT CHEEK 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) Skin, Colon Did You Recieve Any Treatments: Yes What Type of Treatment Did You: Surgical Intervention Psychosocial: No Integumentary: Yes (CELLULITIS; SKIN CANCER; BEDBUGS) Eczema Blood Disorders: Yes (CHRONIC ANEMIA) Adverse Reaction/Blood Tranf: No (HAS HAD BLOOD WITH NO REACTION) Family Medical History Cancer 03 MOTHER, Onset:40's - 50 Family history: Cardiovascular disease 03 FATHER, Onset:40's - 50 03 MOTHER, Onset:30's - 40 Myocardial infarction 03 MOTHER, Onset:30's - 40 Review of Systems Time Seen by Provider: 06:46 Sepsis Event Evaluation Height, Weight, BMI Height: 5'2.00" Weight: 273lbs. 0.0oz. 123.330906sr; 50.00 BMI Method:Stated Exam Exam Vital Signs Date Time Temp Pulse Resp B/P (MAP) Pulse Ox O2 Delivery O2 Flow Rate FiO2 05/07/19 05:23 NIV Bilevel 30.00 05/07/19 05:00 60 14 129/70 (89) 98 NIV Bilevel 40.00 05/07/19 04:00 95 NIV Bilevel 40 05/07/19 04:00 64 16 118/72 (87) 94 NIV Bilevel 40.00 05/07/19 04:00 36.2 05/07/19 03:00 62 10 140/61 (87) 94 NIV Bilevel 40.00 05/07/19 02:59 62 15 94 40.00 05/07/19 02:00 60 15 134/71 (92) 95 NIV Bilevel 40.00 05/07/19 01:00 55 05/07/19 01:00 60 17 127/71 (89) 96 NIV Bilevel 40.00 05/07/19 00:00 95 NIV Bilevel 40 05/07/19 00:00 36.8 NIV Bilevel 40.00 05/07/19 00:00 60 17 138/65 (89) 91 NIV Bilevel 40.00 05/06/19 23:42 60 16 97 40.00 05/06/19 23:00 66 18 92 NIV Bilevel 50.00 05/06/19 22:00 57 22 141/74 (96) 94 NIV Bilevel 50.00 05/06/19 21:00 61 20 131/68 (89) 95 NIV Bilevel 50.00 05/06/19 20:57 64 17 95 50.00 05/06/19 20:00 96 NIV Bilevel 50 05/06/19 20:00 63 15 129/61 (83) 95 NIV Bilevel 50.00 05/06/19 20:00 36.2 05/06/19 19:00 50 05/06/19 19:00 60 18 126/65 (85) 95 NIV Bilevel 50.00 05/06/19 18:00 59 19 145/65 (91) 96 NIV Bilevel 50.00 05/06/19 17:00 63 25 145/72 (96) 97 NIV Bilevel 50.00 05/06/19 16:55 79 20 50.00 05/06/19 16:51 NIV Bilevel 50.00 05/06/19 16:11 79 97 40 05/06/19 16:00 37.2 05/06/19 16:00 69 8 137/81 (99) 96 NIV Bilevel 40.00 05/06/19 15:56 72 05/06/19 15:54 79 14 97 40.00 05/06/19 15:45 NIV Bilevel 40 05/06/19 15:45 81 14 215/97 98 NIV Bilevel 05/06/19 14:06 73 16 30.00 05/06/19 13:35 37.9 81 16 176/79 (111) 92 Nasal Cannula 5.00 I & O 05/07/19 07:00 Intake Total 3950 ml Output Total 810 ml Balance 3140 ml Height & Weight Height: 5'2.00" Weight: 273lbs. 0.0oz. 123.889149cb; 50.00 BMI Method:Stated General Appearance: Chronically ill, Moderate Distress, Obese HEENT: PERRL/EOMI Neck: Full Range of Motion, Non Tender, Supple Respiratory: No Respiratory Distress, Decreased Breath Sounds Cardiovascular: Regular Rate, Rhythm, No JVD, No Murmur Capillary Refill: Less Than 3 Seconds Gastrointestinal: normal bowel sounds, non tender, soft Extremity: Normal Capillary Refill, Normal Inspection, Normal Range of Motion Neurologic/Psychiatric: Depressed Affect Skin: Normal Color, Warm/Dry Lymphatic: No Adenopathy Results Lab Laboratory Tests 05/06/19 13:33 05/07/19 03:10 Assessment/Plan Assessment/Plan Acute on chronic respiratory failure -Currently requiring BiPAP pneumonia with right lung opacification -Wilkerson cultures -Continue Zosyn -Check BNP and Give 2mg of bumex x 1 -Hold IVF COPDAE -SVNS -Solumedrol Morbid obesity with OHS -Pt has a home vent to mask however she is noncompliant. RLD Medical noncompliance PATRICK WESTFALL DO May 07, 2019 06:48 POS
[2019-05-07] MEDS: RT-BUDESONIDE NEBS 0.5 MG/2ML (PULMICORT) AMP INH SCH ×2 (07:17→18:11)
--- NOTE | 2019-05-07 07:47 | Diagnostic Imaging Report ---
CHEST 1 VIEW, AP/PA ONLY Indication: Severe sepsis, pneumonia Comparison: 05/06/2019 Findings: Consolidations within the right perihilar region are unchanged. Potential layering right pleural effusion is similar. No pneumothorax. Left hemithorax is grossly unchanged. Grossly stable cardiomediastinal silhouette. Impression: 1. No change in right consolidations that should relate to patient's reported pneumonia. Dictated by: Dictated on workstation # [id number]
[2019-05-07 09:25] LABS: BILIRUBIN,URINE NEGATIVE (NEGATIVE); CLARITY,URINE CLEAR; COLOR,URINE YELLOW; GLUCOSE, URINE (UA) NEGATIVE (NEGATIVE); KETONES,URINE NEGATIVE (NEGATIVE); LEUKOCYTE ESTERASE ,URINE 1+ (NEGATIVE); NITRITE,URINE NEGATIVE (NEGATIVE); PH,URINE 5.5 (5-9); PROTEIN,URINE NEGATIVE (NEGATIVE)
--- NOTE | 2019-05-07 09:35 | History & Physical-Hospitalist ---
History of Present Illness HPI/Chief Complaint CC: Acute on chronic respiratory failure HPI: This is a 63yoWF clinic pt of [facility] who has a history of morbid obesity and obesity hypoventilation syndrome who presented to the ER with respiratory failure, placed on BiPAP and sent to the ICU and is currently doing better but dependent on BiPAP. Appreciate Dr. Perkins's consultation. Wound care will be consulted for a wound underneath her abdominal fold. WC was 14 and now 9, Hgb stable at 8.5. pH 7.37/61/85. BNP 689 consulting cardiology. Source: patient, RN/MD, old records Exam Limitations: clinical condition Date Seen 05/07/19 Time Seen by a Provider: 08:30 Attending Physician Claudia Pino David F MD Referring Physician Date of Admission May 06, 2019 at 15:00 Home Medications & Allergies Home Medications Reviewed patient Home Medication Reconciliation performed by pharmacy medication reconciliations operating theatre technician and/or nursing. Patients Allergies have been reviewed. Allergies Allergies Coded Allergies ceftriaxone (Verified Allergy, Unknown, 08/02/17) ibuprofen (Verified Allergy, Unknown, PT TAKES ASA AT HOME, 08/02/17) PER MED REC diazepam (Verified Adverse Reaction, Severe, 12/04/18) Past Rqxihoh-Orcmjg-Zhwjgi Hx Past Med/Social Hx: Reviewed Nursing Past Med/Soc Hx, Reviewed and Corrections made Patient Social History Alcohol Use: Denies Use Recreational Drug Use: No Smoking Status: Never a Smoker 2nd Hand Smoke Exposure: No Recent Foreign Travel: No Contact w/other who traveled: No Recent Hopitalizations: No Recent Infectious Disease Expo: No Immunizations Up To Date Tetanus Booster (TDap): Unknown Date of Pneumonia Vaccine: Mar 13, 2013 Date of Influenza Vaccine: Apr 23, 2019 Seasonal Allergies Seasonal Allergies: No Past Medical History Surgeries: Abdominal, Adenoidectomy, Bowel Surgery, Coronary Stent, Eye Surgery, Gallbladder, Tonsillectomy, Tubal Ligation Respiratory: Sleep Apnea Cardiac: Atrial Fibrillation, Chronic Edema/Swelling, Coronary Artery Disease, Deep Vein Thrombosis, Heart Attack, High Cholesterol, Hypertension 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: No Sexually Transmitted Disease: No HIV/AIDS: No Female 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 Disorders: Denies Tubal Ligation, Menopausal Genitourinary: UTI-Chronic Gastrointestinal: Abdominal Hernia, Diverticulosis, Polyps Musculoskeletal: Degenerate Disk Disease, Arthritis, Chronic Back Pain Endocrine: Hypothyroidsim, Diabetes, Non-Insulin dep HEENT: Cataract, Glaucoma Loss of Vision: Denies Hearing Impairment: Denies Cancer: Skin, Colon Did You Recieve Any Treatments: Yes What Type of Treatment Did You: Surgical Intervention Skin/Integumentary: Eczema History of Blood Disorders: Yes (CHRONIC ANEMIA) Adverse Reaction to Blood Gómez: No (HAS HAD BLOOD WITH NO REACTION) Family History Cancer 03 MOTHER, Onset:40's - 50 Family history: Cardiovascular disease 03 FATHER, Onset:40's - 50 03 MOTHER, Onset: - 40 Myocardial infarction 03 MOTHER, Onset:30s - Review of Systems Constitutional: see HPI EENTM: no symptoms reported Respiratory: dyspnea on exertion, short of breath Cardiovascular: no symptoms reported Gastrointestinal: no symptoms reported Genitourinary: no symptoms reported Psychiatric/Neurological: Depressed All Other Systems Reviewed Negative Unless Noted: Yes Physical Exam Physical Exam Vital Signs Vital Signs - First Documented 05/06/19 05/06/19 13:35 15:45 Temp 37.9 Pulse 81 Resp 16 B/P (MAP) 176/79 (111) Pulse Ox 92 O2 Delivery Nasal Cannula O2 Flow Rate 5.00 FiO2 40 Capillary Refill : Less Than 3 Seconds Height, Weight, BMI Height: 5'2.00" Weight: 273lbs. 0.0oz. 123.443341ix; 50.00 BMI Method:Stated General Appearance: WD/WN, Chronically ill, Mild Distress, Obese, Other (bipap on) Eyes: Right Eye Normal Inspection, Right Eye PERRL HEENT: PERRL/EOMI, Normal ENT Inspection, Pharynx Normal, Moist Mucous Membranes Neck: Full Range of Motion, Normal Inspection, Non Tender Respiratory: Chest Non Tender, Lungs Clear, No Accessory Muscle Use, No Respiratory Distress, Decreased Breath Sounds Cardiovascular: Regular Rate, Rhythm, No Edema, No Gallop, No JVD, No Murmur, Normal Peripheral Pulses Gastrointestinal: Normal Bowel Sounds, No Organomegaly, No Pulsatile Mass, Non Tender, Soft Back: Normal Inspection, No CVA Tenderness, No Vertebral Tenderness Extremity: Normal Capillary Refill, Normal Inspection, Normal Range of Motion, Non Tender, No Calf Tenderness, No Pedal Edema Neurologic/Psychiatric: Alert, Oriented x3, No Motor/Sensory Deficits, Normal Mood/Affect Skin: Normal Color, Warm/Dry Lymphatic: No Adenopathy Results Results/Procedures Labs Laboratory Tests 05/06/19 13:33 05/07/19 03:10 Patient resulted labs reviewed. Assessment/Plan Admission Diagnosis Assessment: Respiratory failure maintained on biPAP Obesity hypoventilation syndrome Leukocytosis Morbid obesity Volume overload Plan: BiPAP O2 Nebs Monitor closely Admission Status: Inpatient Order (span 2 midnights) Reason for Inpatient Admission: Resp failure Diagnosis/Problems Diagnosis/Problems (1) Chronic respiratory failure with hypoxia and hypercapnia Status: Acute (2) Mild renal insufficiency Status: Resolved (3) Obesity hypoventilation syndrome Status: Chronic (4) CAD (coronary artery disease) Status: Chronic (5) Anxiety Status: Chronic (6) COPD (chronic obstructive pulmonary disease) Status: Acute Clinical Quality Measures DVT/VTE Risk/Contraindication: Risk Factor Score Per Nursin RFS Level Per Nursing on Admit: 4+=Very High CLAUDIA PINO DO May 07, 2019 09:35 POS
[2019-05-07 09:39] LABS: BACTERIA,URINE TRACE /HPF; SQUAMOUS EPITHELIAL CELL,UR 0-2 /HPF; URIC ACID CRYSTALS,URINE MODERATE /LPF
[2019-05-07] MEDS ORDERED: BIMA2.5D4 OU (09:44)
[2019-05-07] MEDS ORDERED: ALBU2.5V4 NEB (09:44)
[2019-05-07] MEDS ORDERED: OXYC-464 PO (09:44)
[2019-05-07] MEDS ORDERED: LEVO175T5 PO (09:44)
[2019-05-07] MEDS ORDERED: PHEN-832 PO (10:16)
[2019-05-07] MEDS ORDERED: MORP-34 PO (10:16)
[2019-05-07] MEDS: methylPREDNISolone 40 MG/ML (Solu-MEDROL) VIAL IV SCH ×3 (12:50→23:18)
[2019-05-07] MEDS ORDERED: oxyCODONE/APAP 7.5-325 MG (PERCOCET 7.5) TABLET PO PRN (20:15)
[2019-05-07] MEDS: morphine ER 30 MG (MS CONTIN) TAB PO SCH (20:21)
[2019-05-07] MEDS: LATANOPROST 0.005% (XALATAN) OPHTH SOLN 2.5 ML OU SCH (20:51)
[2019-05-07] MEDS ORDERED: NON-FORMULARY MEDICATION 1 EA EA (Bimatoprost (Lumigan) 1 DROP) OU SCH (21:00)
[2019-05-08] VITALS (16 sets, daily range): BP systolic 123–176; BP diastolic 68–88
[2019-05-08] MEDS: RT-ALBUTEROL/IPRATROPIUM 3 ML (DUONEB) VIAL INH SCH ×6 (01:50→21:05)
[2019-05-08 03:24] LABS: ABG BASE EXCESS 11.1 MMOL/L (-2.5-2.5); ABG OXYGEN SATURATION 97 % (94-100); ABG PCO2 56 MMHG (35-45); ABG PH 7.42 (7.37-7.43); ABG PO2 82 MMHG (79-93); ABG TCO2 37.9 MMOL/L (21.0-31.0)
[2019-05-08 03:31] LABS: ALLENS TEST POSITIVE
[2019-05-08 03:32] LABS: INSPIRED O2 30% BIPAP; PATIENT TEMP 36.2; VENTILATOR NO
[2019-05-08 03:35] LABS: BASOPHILS % (AUTO) 0 % (0-10); EOSINOPHILS % (AUTO) 0 % (0-10); HEMATOCRIT 30 % (35-52); HEMOGLOBIN 8.6 G/DL (11.5-16.0); LYMPHOCYTES # (AUTO) 0.2 X 10^3 (1.0-4.0); LYMPHOCYTES % (AUTO) 4 % (12-44); MEAN CORPUSCULAR HEMOGLOBIN 28 PG (25-34); MEAN CORPUSCULAR HGB CONC 29 G/DL (32-36); MEAN CORPUSCULAR VOLUME 95 FL (80-99); MEAN PLATELET VOLUME 9.3 FL (7.4-10.4); MONOCYTES # (AUTO) 0.1 X 10^3 (0.0-1.0); MONOCYTES % (AUTO) 2 % (0-12); NEUTROPHILS # (AUTO) 6.4 X 10^3 (1.8-7.8); NEUTROPHILS % (AUTO) 95 % (42-75); PLATELET COUNT 184 10^3/uL (130-400); RED CELL DISTRIBUTION WIDTH 16.4 % (10.0-14.5); WHITE BLOOD COUNT 6.8 10^3/uL (4.3-11.0)
[2019-05-08 04:04] LABS: CALCIUM 8.8 MG/DL (8.5-10.1); CREATININE SERUM 1.27 MG/DL (0.60-1.30); MAGNESIUM 1.6 MG/DL (1.6-2.4); PHOSPHORUS 3.3 MG/DL (2.3-4.7); POTASSIUM 3.8 MMOL/L (3.6-5.0)
[2019-05-08] MEDS: POTASSIUM CL 10MEQ/50ML IVPB 50 ML IV SCH (04:07)
[2019-05-08] MEDS: KCL 20 MEQ TAB (K-DUR) PO SCH (04:08)
[2019-05-08] MEDS: MAGNESIUM 1 GM/100 ML IVPB 100 ML IV SCH ×3 (04:08→05:19)
[2019-05-08] MEDS: PIPERACILLIN/TAZO 4.5 GM/NS 100 ML IV SCH ×6 (05:22→20:51)
[2019-05-08] MEDS: methylPREDNISolone 40 MG/ML (Solu-MEDROL) VIAL IV SCH ×3 (06:00→17:08)
[2019-05-08] MEDS: LEVOTHYROXINE 100 MCG (LEVOTHROID) TAB PO SCH (06:00)
[2019-05-08] MEDS: LEVOTHYROXINE 75 MCG (LEVOTHROID) TABLET PO SCH (06:00)
[2019-05-08] MEDS: RT-BUDESONIDE NEBS 0.5 MG/2ML (PULMICORT) AMP INH SCH ×2 (06:54→18:11)
[2019-05-08] MEDS ORDERED: BUMETANIDE 1 MG/4 ML (BUMEX) VIAL IV NR (07:00)
[2019-05-08] MEDS ORDERED: KCL 20 MEQ TAB (K-DUR) PO NR (07:00)
--- NOTE | 2019-05-08 07:04 | Pulmonary Progress Note ---
Sepsis Event Evaluation Height, Weight, BMI Height: 5'2.00" Weight: 273lbs. 0.0oz. 123.110916ts; 50.00 BMI Method:Stated Focused Exam Lactate Level 05/06/19 13:33: Lactic Acid Level 4.33*H 05/06/19 15:55: Lactic Acid Level 2.12*H Exam Exam Vital Signs Date Time Temp Pulse Resp B/P (MAP) Pulse Ox O2 Delivery O2 Flow Rate FiO2 05/08/19 06:59 54 15 94 05/08/19 06:53 54 17 93 30.00 05/08/19 06:00 54 15 146/75 (98) 99 NIV Bilevel 30.00 05/08/19 05:00 55 31 131/68 (89) 94 NIV Bilevel 30.00 05/08/19 04:00 56 31 140/72 (94) 98 NIV Bilevel 30.00 05/08/19 03:23 NIV Bilevel 30 05/08/19 03:21 36.2 05/08/19 03:00 57 21 123/71 (88) 95 NIV Bilevel 30.00 05/08/19 02:00 56 16 142/70 (94) 96 NIV Bilevel 30.00 05/08/19 01:50 57 20 97 30.00 05/08/19 01:00 57 05/08/19 01:00 57 18 138/79 (98) 95 NIV Bilevel 30.00 05/08/19 00:00 62 27 142/70 (94) 96 NIV Bilevel 30.00 05/07/19 23:59 NIV Bilevel 30 05/07/19 23:56 64 24 98 NIV Bilevel 30.00 05/07/19 23:27 36.5 05/07/19 23:00 73 20 145/73 (97) 97 Vapotherm 40.00 45.00 05/07/19 22:00 75 136/68 (90) 92 Vapotherm 40.00 45.00 05/07/19 21:28 97 Vapotherm 40.00 45 05/07/19 21:00 73 24 155/57 (89) 96 Vapotherm 40.00 45.00 05/07/19 20:00 73 24 149/68 (95) 96 Vapotherm 40.00 45.00 05/07/19 20:00 Vapotherm 40.00 35 11/25/19 19:34 72 21 141/54 (83) 95 Vapotherm 40.00 45.00 05/07/19 19:06 36.8 05/07/19 19:04 87 05/07/19 18:13 96 Vapotherm 40.00 45 05/07/19 18:11 96 Vapotherm 40.00 45 05/07/19 17:00 82 34 146/87 (106) 95 Vapotherm 40.00 45.00 05/07/19 16:00 79 22 138/80 (99) 94 Vapotherm 40.00 45.00 05/07/19 16:00 Vapotherm 40.00 35 05/07/19 15:47 37.0 05/07/19 15:14 92 Vapotherm 40.00 45 05/07/19 15:00 77 132/67 (88) 90 Vapotherm 40.00 35.00 05/07/19 14:00 77 54 129/63 (85) 86 Vapotherm 40.00 35.00 05/07/19 13:00 81 05/07/19 13:00 78 25 152/124 (133) 89 Vapotherm 40.00 35.00 05/07/19 12:57 Vapotherm 40.00 35.00 05/07/19 12:00 65 15 141/47 (78) 92 NIV Bilevel 30.00 05/07/19 12:00 NIV Bilevel 30 05/07/19 11:43 37.3 05/07/19 11:21 66 18 98 30.00 05/07/19 11:00 61 17 132/69 (90) 91 NIV Bilevel 30.00 05/07/19 10:00 70 17 135/59 (84) 97 NIV Bilevel 30.00 05/07/19 09:00 66 11 148/72 (97) 94 NIV Bilevel 30.00 05/07/19 08:00 67 7 161/84 (109) 98 NIV Bilevel 30.00 05/07/19 08:00 35.9 05/07/19 08:00 NIV Bilevel 30 05/07/19 07:23 98 NIV Bilevel 30 05/07/19 07:18 67 15 100 40.00 I & O 05/08/19 07:00 Intake Total 1520 ml Output Total 3675 ml Balance -2155 ml Height & Weight Height: 5'2.00" Weight: 273lbs. 0.0oz. 123.655213ky; 50.00 BMI Method:Stated General Appearance: WD/WN, Chronically ill, Mild Distress, Obese, Other (bipap on) HEENT: PERRL/EOMI, Normal ENT Inspection, Pharynx Normal, Moist Mucous Membranes Neck: Full Range of Motion, Normal Inspection, Non Tender Respiratory: Chest Non Tender, Lungs Clear, No Accessory Muscle Use, No Respiratory Distress, Decreased Breath Sounds Cardiovascular: Regular Rate, Rhythm, No Edema, No Gallop, No JVD, No Murmur, Normal Peripheral Pulses Capillary Refill: Less Than 3 Seconds Gastrointestinal: normal bowel sounds, non tender, soft Extremity: Normal Capillary Refill, Normal Inspection, Normal Range of Motion, Non Tender, No Calf Tenderness, No Pedal Edema Neurologic/Psychiatric: Alert, Oriented x3, No Motor/Sensory Deficits, Normal Mood/Affect Skin: Normal Color, Warm/Dry Lymphatic: No Adenopathy Results Lab Laboratory Tests 05/06/19 13:33 05/07/19 03:10 05/08/19 03:20 Assessment/Plan Assessment/Plan Acute on chronic respiratory failure -Currently requiring BiPAP pneumonia with right lung opacification -Wilkerson cultures -Continue Zosyn -Check BNP and Give 2mg of bumex x 1 -Hold IVF COPDAE -SVNS -Solumedrol Morbid obesity with OHS -Pt has a home vent to mask however she is noncompliant. RLD Medical noncompliance PATRICK WESTFALL DO May 08, 2019 07:03 POS
[2019-05-08] MEDS: morphine ER 30 MG (MS CONTIN) TAB PO SCH ×2 (08:49→20:51)
[2019-05-08] MEDS: ASPIRIN E.C. 81 MG (ECOTRIN) TAB PO SCH (08:49)
[2019-05-08] MEDS ORDERED: NON-FORMULARY MEDICATION 1 EA EA (Levothyroxine Sodium 175 MCG) PO SCH (09:00)
--- NOTE | 2019-05-08 09:25 | Diagnostic Imaging Report ---
Indication: Pneumonia, sepsis. Compared: 05/07 Findings: Body habitus limits radiographic sensitivity. There is an extensive infiltrate in the right lung obscuring the right heart border and partially obscuring the right diaphragm. Given differing technique, it is not appreciably changed. There is likely some pleural fluid layering dependently. A more mild patchy infiltrate in the left lung base also similar. Impression: Right greater than left infiltrates and probable right pleural fluid not appreciably changed. Dictated by: Dictated on workstation # [id number]
--- NOTE | 2019-05-08 09:41 | Progress Note - Hospitalist ---
Subjective HPI/CC On Admission Date Seen by Provider: May 08, 2019 Time Seen by Provider: 09:00 CC: Acute on chronic respiratory failure HPI: This is a 63yoWF clinic pt of [facility] who has a history of morbid obesity and obesity hypoventilation syndrome who presented to the ER with respiratory failure, placed on BiPAP and sent to the ICU and is currently doing better but dependent on BiPAP. Appreciate Dr. Perkins's consultation. Wound care will be consulted for a wound underneath her abdominal fold. WC was 14 and now 9, Hgb s table at 8.5. pH 7.37/61/85. BNP 689 consulting cardiology. Subjective/Events-last exam Patient doing much better Off BiPAP for now Desaturation does occur during conversation Bowels are moving Able to eat a little bit No pain is reported Reviewed meds and labs Review of Systems General: Fatigue Pulmonary: Dyspnea Focused Exam Lactate Level 05/06/19 13:33: Lactic Acid Level 4.33*H 05/06/19 15:55: Lactic Acid Level 2.12*H Objective Exam Vital Signs Vital Signs Date Time Temp Pulse Resp B/P (MAP) Pulse Ox O2 Delivery O2 Flow Rate FiO2 05/08/19 09:00 76 30 146/69 (94) Nasal Cannula 4.00 05/08/19 08:00 35.7 05/08/19 08:00 30 05/08/19 08:00 95 Capillary Refill : Less Than 3 Seconds General Appearance: No Apparent Distress, WD/WN Respiratory: Chest Non Tender, No Accessory Muscle Use, No Respiratory Distress, Crackles, Decreased Breath Sounds Cardiovascular: Regular Rate, Rhythm, No Edema, No Gallop, No JVD, No Murmur, Normal Peripheral Pulses Neurologic/Psychiatric: Alert, Oriented x3, map editor II-XII Norm as Tested Results/Procedures Lab Laboratory Tests 05/08/19 03:20 Patient resulted labs reviewed. Assessment/Plan Assessment and Plan Assess & Plan/Chief Complaint Assessment: Acute on chronic respiratory failure CO2 retention Morbid obesity Obesity hypoventilation syndrome Pneumonia Exacerbation of COPD Plan: Physical therapy BiPAP Monitor closely Obesity precludes anything but a poor prognosis long-term Diagnosis/Problems Diagnosis/Problems (1) Chronic respiratory failure with hypoxia and hypercapnia Status: Acute (2) Mild renal insufficiency Status: Resolved (3) Obesity hypoventilation syndrome Status: Chronic (4) CAD (coronary artery disease) Status: Chronic (5) Anxiety Status: Chronic (6) COPD (chronic obstructive pulmonary disease) Status: Acute Clinical Quality Measures DVT/VTE Risk/Contraindication: Risk Factor Score Per Nursin RFS Level Per Nursing on Admit: 4+=Very High KASSIDY IRELAND DO May 08, 2019 09:41 POS
--- NOTE | 2019-05-08 14:09 | Physical Therapy Evaluation ---
PT Evaluation-General Medical Diagnosis Admission Date May 06, 2019 at 15:00 Medical Diagnosis: sepsis, pneumonia, COPD exacerbation Onset Date: May 06, 2019 Therapy Diagnosis Therapy Diagnosis: weakness Height/Weight Height (Feet): 5 Height (Inches): 2.00 Weight (Pounds): 273 Weight (Ounces): 0.0 Precautions Precautions/Isolations: Fall Prevention, Standard Precautions Referral Physician: Alvarez Reason for Referral: Evaluation/Treatment Medical History Pertinent Medical History: Atrial Fib, Arthritis, CAD, DM, Diverticulitis, HTN, Hypothroidism, SC Current History EMS secondary to SOB x2-3 days Reviewed History: Yes Social History Home: Single Level Current Living Status: Children Entry Into Home: Stairs Without Railing (uses walker/furniture/family for steps/threshold) PT Steps Into Home: 2 (1 step, 1 threshold) Prior Prior Level of Function SCALE: Activities may be completed with or without assistive devices. 8-Sxwfjhrktv-eunqiyv completes the activity by him/herself with no assistance from a helper. 5-Set-up or Clean-up Assistance-helper sets up or cleans up; patient completes activity. [place] assists only prior to or following the activity. 4-Supervision or Touching Assistance-helper provides verbal cues and/or touching/steadying and/or contact guard assistance as patient completes activity. Assistance may be provided throughout the activity or intermittently. 3-Partial/Moderate Assistance-helper does LESS THAN HALF the effort. [place] lifts, holds or supports trunk or limbs, but provides less than half the effort. 2-Substantial/Maximal Assistance-helper does MORE THAN HALF the effort. [place] lifts or holds trunk or limbs and provides more than half the effort. 5-Xgqxefcln-klamln does ALL the effort. Patient does none of the effort to complete the activity. Or, the assistance of 2 or more helpers is required for the patient to complete the activity. If activity was not attempted, code reason: 7-Patient Refused. 9-Not Applicable-not attempted and the patient did not perform the activity before the current illness, exacerbation or injury. 10-Not Attempted due to Environmental Limitations-(lack of equipment, weather restraints, etc.). 88-Not Attempted due to Medical Conditions or Safety Concerns. Bed Mobility: 6 Transfers (B,C,W/C): 6 Gait: 6 Stairs: 3 Wheelchair Mobility: 3 Indoor Mobility (Ambulation): Independent Stairs: Needed Some Help Prior Devices Use: Manual wheelchair, Walker PT Evaluation-Current Subjective Patient agrees to PT. Would like to transfer to commode. Reports no pain at this time. States she has hospital bed at home that she spends a lot of her time in and ambulates around the house short distances with FWW or sits in wheelchair. Pain Numeric Pain Scale: 0-No Pain Location: No Pain Reported Objective Patient Orientation: Normal For Age Attachments: Oxygen (5L), Cano Catheter ROM/Strength ROM Lower Extremities WFL Strength Lower Extremities Grossly 3/5 bilaterally Integumentary/Posture Integumentary See nursing notes Bowel Incontinence: No Bladder Incontinence: Cano Cath Posture WFL Neuromuscular (Tone, Coordination, Reflexes) Grossly intact Sensory Vision: Functional Hearing: Functional Transfers Roll Left to Right (QC): 6 Sit to Lying (QC): 6 Lying to Sitting/Side of Bed(Q: 6 Sit to Stand (QC): 4 Chair/Uml-kj-Vagwm Xfer(QC): 4 Car Transfer (QC): 10 Gait Does the Patient Walk?: Yes Mode of Locomotion: Both Anticipated Mode of Locomotion: Both Walk 10 feet (QC): 88 Walk 50 ft with 2 Turns(QC): 88 Walk 150 ft (QC): 88 Walking 10ft/uneven surface-QC: 88 Distance: 5' Gait Assistive Device: FWW Wheelchair Training Does the Pt Use a Wheelchair?: Yes Wheel 50 ft with 2 turns (QC): 88 Wheel 150 ft (QC): 88 Type of Wheelchair: Manual Stairs 1 Step (curb) (QC): 88 4 Steps (QC): 9 12 Steps (QC): 9 Balance Sitting Static: Normal Sitting Dynamic: Normal Standing Static: Normal Standing Dynamic: Normal Picking up an Object (QC): 88 Assessment/Needs Patient able to perform bed mobility independently from supine position to sitting EOB. Patient stood from EOB with FWW with CGA and was able to transfer using walker and CGA to commode. Patient left on commode with call light at conclusion of session. Rehab Potential: Fair PT Alf Goals Supervisor Edging Goals PT Alf Goals Time Frame: May 21, 2019 Roll Left & Right (QC): 6 Sit to Lying (QC): 6 Lying-Sitting on Side/Bed(QC): 6 Sit to Stand (QC): 6 Chair/Tul-tk-Jjufu Xfer(QC): 6 Toilet Transfer (QC): 6 Car Transfer (QC): 6 Does the Patient Walk: Yes Walk 10 feet (QC): 6 Walk 50ft with 2 Turns (QC): 6 Walk 150 ft (QC): 9 Walking 10ft on Uneven Surface: 6 1 Step (curb) (QC): 3 4 Steps (QC): 9 12 Steps (QC): 9 Picking up an Object (QC): 9 Does the Pt use WC or Scooter?: Yes Wheel 50 feet with 2 turns (QC: 3 Type: Manual Wheel 150 feet: 3 Type: Manual PT Plan Problem List Problem List: Activity Tolerance, Functional Strength, Safety, Balance, Gait, Transfer, Bed Mobility Treatment/Plan Treatment Plan: Continue Plan of Care Treatment Plan: Bed Mobility, Education, Functional Activity Rashid, Functional Strength, Gait, Safety, Therapeutic Exercise, Transfers Treatment Duration: May 21, 2019 Frequency: 6 times per week Estimated Hrs Per Day: .25 hour per day Patient and/or Family Agrees t: Yes Time/GCodes Time In: 1334 Time Out: 1348 Total Billed Treatment Time: 14 Total Billed Treatment 1 visit EVLowC 14min JACQUELINE ALANIS PT May 08, 2019 14:09 POS
[2019-05-08] MEDS: OXYMETAZOLINE (AFRIN) 0.05% NA 15 ML BTL PRN (14:24)
[2019-05-08] MEDS ORDERED: amLODIPine 5 MG (NORVASC) TAB ONE (17:00)
[2019-05-08] MEDS ORDERED: amLODIPine 5 MG (NORVASC) TAB PO NR (17:00)
[2019-05-08] MEDS ORDERED: cloNIDine 0.1 MG (CATAPRES) TAB PO PRN (17:00)
[2019-05-08] MEDS: LATANOPROST 0.005% (XALATAN) OPHTH SOLN 2.5 ML OU SCH (20:51)
[2019-05-08] MEDS: meTOprolol TARTRATE 25 MG (LOPRESSOR) TABLET PO SCH (20:52)
[2019-05-09] MEDS: methylPREDNISolone 40 MG/ML (Solu-MEDROL) VIAL IV SCH ×2 (00:40→06:05)
[2019-05-09] MEDS: RT-ALBUTEROL/IPRATROPIUM 3 ML (DUONEB) VIAL INH SCH ×6 (01:02→22:03)
[2019-05-09 03:47] LABS: BASOPHILS % (AUTO) 0 % (0-10); EOSINOPHILS % (AUTO) 0 % (0-10); HEMATOCRIT 32 % (35-52); HEMOGLOBIN 9.3 G/DL (11.5-16.0); LYMPHOCYTES # (AUTO) 0.3 X 10^3 (1.0-4.0); LYMPHOCYTES % (AUTO) 5 % (12-44); MEAN CORPUSCULAR HEMOGLOBIN 27 PG (25-34); MEAN CORPUSCULAR HGB CONC 29 G/DL (32-36); MEAN CORPUSCULAR VOLUME 95 FL (80-99); MEAN PLATELET VOLUME 9.5 FL (7.4-10.4); MONOCYTES # (AUTO) 0.3 X 10^3 (0.0-1.0); MONOCYTES % (AUTO) 5 % (0-12); NEUTROPHILS % (AUTO) 90 % (42-75); PLATELET COUNT 192 10^3/uL (130-400); RED CELL DISTRIBUTION WIDTH 16.2 % (10.0-14.5); WHITE BLOOD COUNT 6.7 10^3/uL (4.3-11.0)
[2019-05-09 03:48] VITALS: BP 171/90
[2019-05-09 04:05] LABS: CALCIUM 8.6 MG/DL (8.5-10.1); CREATININE SERUM 1.21 MG/DL (0.60-1.30); POTASSIUM 4.2 MMOL/L (3.6-5.0)
[2019-05-09] MEDS: PIPERACILLIN/TAZO 4.5 GM/NS 100 ML IV SCH ×2 (06:05)
[2019-05-09] MEDS: LEVOTHYROXINE 75 MCG (LEVOTHROID) TABLET PO SCH (06:06)
[2019-05-09] MEDS: LEVOTHYROXINE 100 MCG (LEVOTHROID) TAB PO SCH (06:06)
[2019-05-09] MEDS: RT-BUDESONIDE NEBS 0.5 MG/2ML (PULMICORT) AMP INH SCH ×2 (07:10→18:02)
--- NOTE | 2019-05-09 07:26 | Pulmonary Progress Note ---
Subjective Time Seen by a Provider: 07:23 Subjective/Events-last exam Pt is doing better. Sepsis Event Evaluation Height, Weight, BMI Height: 5'2.00" Weight: 273lbs. 0.0oz. 123.696721wz; 50.00 BMI Method:Stated Focused Exam Lactate Level 05/06/19 13:33: Lactic Acid Level 4.33*H 05/06/19 15:55: Lactic Acid Level 2.12*H Exam Exam Vital Signs Date Time Temp Pulse Resp B/P (MAP) Pulse Ox O2 Delivery O2 Flow Rate FiO2 05/09/19 07:13 99 Nasal Cannula 4.00 05/09/19 07:08 99 Nasal Cannula 6.00 05/09/19 03:48 36.6 107 20 171/90 (117) 97 NIV Bilevel 30.00 05/09/19 01:02 97 20 96 30.00 05/09/19 01:00 106 05/08/19 23:54 36.7 109 20 136/85 (102) 98 Nasal Cannula 6.00 05/08/19 21:05 94 Nasal Cannula 6.00 05/08/19 21:00 95 Nasal Cannula 4.00 05/08/19 20:45 36.8 121 20 172/77 (108) 93 Nasal Cannula 6.00 05/08/19 19:00 122 05/08/19 18:15 93 Nasal Cannula 6.00 05/08/19 18:11 93 Nasal Cannula 6.00 05/08/19 16:00 162/88 (112) 05/08/19 15:32 37.0 65 22 176/88 (117) 95 Nasal Cannula 6.00 05/08/19 14:13 93 Nasal Cannula 6.00 05/08/19 12:12 70 05/08/19 12:00 37.0 73 28 174/78 (110) Nasal Cannula 4.00 05/08/19 11:25 95 Nasal Cannula 4.00 05/08/19 11:12 90 Nasal Cannula 4.00 05/08/19 09:00 76 30 146/69 (94) Nasal Cannula 4.00 05/08/19 08:52 Nasal Cannula 4.00 05/08/19 08:00 35.7 05/08/19 08:00 NIV Bilevel 30 05/08/19 08:00 54 27 130/75 (93) 95 NIV Bilevel 30.00 I & O 05/09/19 07:00 Intake Total 1780 ml Output Total 5275 ml Balance -3495 ml Height & Weight Height: 5'2.00" Weight: 273lbs. 0.0oz. 123.669483qk; 50.00 BMI Method:Stated General Appearance: No Apparent Distress, WD/WN HEENT: PERRL/EOMI, Normal ENT Inspection, Pharynx Normal, Moist Mucous Membranes Neck: Full Range of Motion, Normal Inspection, Non Tender Respiratory: Chest Non Tender, No Accessory Muscle Use, No Respiratory Distress, Crackles, Decreased Breath Sounds Cardiovascular: Regular Rate, Rhythm, No Edema, No Gallop, No JVD, No Murmur, Normal Peripheral Pulses Capillary Refill: Less Than 3 Seconds Gastrointestinal: normal bowel sounds, non tender, soft Extremity: Normal Capillary Refill, Normal Inspection, Normal Range of Motion, Non Tender, No Calf Tenderness, No Pedal Edema Neurologic/Psychiatric: Alert, Oriented x3, finish repairer II-XII Norm as Tested Skin: Normal Color, Warm/Dry Lymphatic: No Adenopathy Results Lab Laboratory Tests 05/08/19 03:20 05/09/19 03:30 Assessment/Plan Assessment/Plan Acute on chronic respiratory failure -resolved -Pt is doing much better. pneumonia with right lung opacification -Wilkerson cultures -Change Zosyn to Augmentin for Total Abx 5-7days COPDAE -SVNS -Solumedrol -- change to prednisone taper. Morbid obesity with OHS -noncompliant with PAP therapy RLD Medical noncompliance Pt is ok from pulmonary standpoint for discharge. PATRICK WESTFALL DO May 09, 2019 07:26 POS
[2019-05-09 08:00] VITALS: BP 145/79
[2019-05-09] MEDS: morphine ER 30 MG (MS CONTIN) TAB PO SCH ×2 (08:16→20:37)
[2019-05-09] MEDS: ASPIRIN E.C. 81 MG (ECOTRIN) TAB PO SCH (08:16)
[2019-05-09] MEDS: amLODIPine 5 MG (NORVASC) TAB PO SCH (08:17)
[2019-05-09] MEDS: meTOprolol TARTRATE 25 MG (LOPRESSOR) TABLET PO SCH ×2 (08:17→20:34)
[2019-05-09] MEDS: OXYMETAZOLINE (AFRIN) 0.05% NA 15 ML BTL PRN (08:22)
--- NOTE | 2019-05-09 08:51 | Diagnostic Imaging Report ---
EXAMINATION: Chest 1 view HISTORY: Pneumonia. Severe sepsis. COMPARISON: 05/08/2019 FINDINGS: Consolidative opacities are again seen throughout the majority of the right lung with relative sparing of the right apex. This appearance appears overall similar to the prior exam. Patchy opacities are also noted in the left perihilar and basilar region. Likely right-sided pleural effusion is present. No large pneumothorax. The cardiac silhouette is enlarged. No acute osseous abnormalities are seen. IMPRESSION: 1. Overall stable appearance of the opacities throughout the right lung and in the left perihilar and basilar region with likely right-sided pleural effusion. These findings are concerning for pneumonia, with components of atelectasis or edema possible. 2. Stable cardiomegaly. Dictated by: Dictated on workstation # [id number]
--- NOTE | 2019-05-09 09:10 | Physician Query Clarification ---
PQ-Conflicting Diagnosis Admission/Discharge Admission Date: May 06, 2019 at 15:00 Discharge Date: The medical record reflects the following clinical scenario: History/Risk Factors: Acute on chronic respiratory failure with hypoxia and hypercapnia. Pneumonia Clinical Findings:WBC 14.9, Bands 0, T 37.9,Pulse 81, Resp 16, BP 176/79, preliminary blood culture- Strep or Related Genus, Staph, Coag Neg and Coryneform bacteria isolated. Lactic Acid 4.33. Treatment: IV Zosyn. Question: Do you agree with the impression of the diagnosis of severe sepsis per Per Ramos Schroeder APRN in ED? Please document a response in Progress Note or Discharge Summary. 1. Yes 2. No 3. Other, with explanation of clinical findings 4. Clinically undetermined, no explanation for clinical findings. PHYSICIAN RESPONSE Do you agree w/Consulting Dx?: Yes Please remember a lack of response to the above will prompt a phone page by CDI/Coding staff. In responding to this query, please exercise your independent professional judgment. The purpose of this communication is to more accurately reflect the complexity of your patients condition. The fact that a question is asked does not imply that any particular answer is desired or expected. Thank you for your timely response to this clarification. Requestors name: Cathie Levy [facility] THIS PHYSICIAN QUERY FORM IS A PERMANENT PART OF THE MEDICAL RECORD CATHIE LEVY May 09, 2019 09:10 KASSIDY MCDONOUGH DO May 09, 2019 09:55 POS
--- NOTE | 2019-05-09 09:35 | Progress Note - Hospitalist ---
Subjective HPI/CC On Admission Date Seen by Provider: May 09, 2019 Time Seen by Provider: 09:00 CC: Acute on chronic respiratory failure HPI: This is a 63yoWF clinic pt of [facility] who has a history of morbid obesity and obesity hypoventilation syndrome who presented to the ER with respiratory failure, placed on BiPAP and sent to the ICU and is currently doing better but dependent on BiPAP. Appreciate Dr. Perkins's consultation. Wound care will be consulted for a wound underneath her abdominal fold. WC was 14 and now 9, Hgb s table at 8.5. pH 7.37/61/85. BNP 689 consulting cardiology. Subjective/Events-last exam Pt doing pretty well Home meds were restarted Consulting Dr. Krishna for Dr. De Leon's absence due to episode of AF in the 120 range Has BiPAP at home so DME will evaluate the need for a new mask to help with compliance. Will DC the peralta catheter Eating and drinking well Open for DC on Tuesday Review of Systems General: Fatigue Pulmonary: Dyspnea Focused Exam Lactate Level Objective Exam Vital Signs Vital Signs Date Time Temp Pulse Resp B/P (MAP) Pulse Ox O2 Delivery O2 Flow Rate FiO2 05/09/19 18:26 130 129/75 (93) 05/09/19 18:06 Nasal Cannula 05/09/19 18:01 94 4.00 05/09/19 16:44 36.9 22 05/08/19 08:00 30 Capillary Refill : Less Than 3 Seconds General Appearance: No Apparent Distress, WD/WN, Chronically ill, Obese Respiratory: Chest Non Tender, Lungs Clear, Normal Breath Sounds, No Accessory Muscle Use, No Respiratory Distress Cardiovascular: Regular Rate, Rhythm, No Edema, No Gallop, No JVD, No Murmur, Normal Peripheral Pulses Neurologic/Psychiatric: Alert, Oriented x3, No Motor/Sensory Deficits, Normal Mood/Affect Results/Procedures Lab Laboratory Tests 05/09/19 03:30 Patient resulted labs reviewed. Assessment/Plan Assessment and Plan Assess & Plan/Chief Complaint Assessment: Severe sepsis Acute on chronic respiratory failure CO2 retention Morbid obesity Obesity hypoventilation syndrome Pneumonia Exacerbation of COPD PAF? Plan: Physical therapy BiPAP mask replacement per DME Monitor closely Obesity precludes anything but a poor prognosis long-term DC Tuesday? Cardiology appreciated Diagnosis/Problems Diagnosis/Problems (1) Severe sepsis (2) Chronic respiratory failure with hypoxia and hypercapnia Status: Acute (3) Mild renal insufficiency Status: Resolved (4) Obesity hypoventilation syndrome Status: Chronic (5) CAD (coronary artery disease) Status: Chronic (6) Anxiety Status: Chronic (7) COPD (chronic obstructive pulmonary disease) Status: Acute Clinical Quality Measures DVT/VTE Risk/Contraindication: Risk Factor Score Per Nursin RFS Level Per Nursing on Admit: 4+=Very High KASSIDY IRELAND DO May 09, 2019 09:35 POS
--- NOTE | 2019-05-09 10:39 | Physical Therapy Daily Note ---
PT Daily Note-Current Subjective Patient in bed pre tx, agrees to PT, has no complaints of pain at rest. Appearance Patient in recliner post tx with nurse call, phone, tray, all needs met. Mental Status Patient Orientation: Person, Place, Situation Attachments: Oxygen, Cano Catheter Transfers SCALE: Activities may be completed with or without assistive devices. 9-Fnbjrszhrx-emddmkt completes the activity by him/herself with no assistance from a helper. 5-Set-up or Clean-up Assistance-helper sets up or cleans up; patient completes activity. [place] assists only prior to or following the activity. 4-Supervision or Touching Assistance-helper provides verbal cues and/or touching/steadying and/or contact guard assistance as patient completes activity. Assistance may be provided throughout the activity or intermittently. 3-Partial/Moderate Assistance-helper does LESS THAN HALF the effort. [place] lifts, holds or supports trunk or limbs, but provides less than half the effort. 2-Substantial/Maximal Assistance-helper does MORE THAN HALF the effort. [place] lifts or holds trunk or limbs and provides more than half the effort. 1-Dulofaouu-rpxajy does ALL the effort. Patient does none of the effort to complete the activity. Or, the assistance of 2 or more helpers is required for the patient to complete the activity. If activity was not attempted, code reason: 7-Patient Refused. 9-Not Applicable-not attempted and the patient did not perform the activity before the current illness, exacerbation or injury. 10-Not Attempted due to Environmental Limitations-(lack of equipment, weather restraints, etc.). 88-Not Attempted due to Medical Conditions or Safety Concerns. Roll Left & Right (QC): 6 Sit to Lying (QC): 6 Lying to Sitting/Side of Bed(Q: 6 Sit to Stand (QC): 4 Chair/Uof-ru-Lgbth Xfer(QC): 4 SBA with sit to stand and transfer, patient ambulated a few feet to recliner, slow but steady ambulation Exercises Seated Therapy Exercises: Ankle pumps, Long arc quads Seated Reps: 15 Treatments bed mobility and transfers, ambulation, LE exercise Assessment Current Status: Fair Progress improved transfers PT Geriatric Aide Goals Geriatric Aide Goals PT [facility] Goals Time Frame: May 21, 2019 Roll Left & Right (QC): 6 Sit to Lying (QC): 6 Lying-Sitting on Side/Bed(QC): 6 Sit to Stand (QC): 6 Chair/Ttv-af-Bmwwi Xfer(QC): 6 Toilet Transfer (QC): 6 Car Transfer (QC): 6 Does the Patient Walk: Yes Walk 10 feet (QC): 6 Walk 50ft with 2 Turns (QC): 6 Walk 150 ft (QC): 9 Walking 10ft on Uneven Surface: 6 1 Step (curb) (QC): 3 4 Steps (QC): 9 12 Steps (QC): 9 Picking up an Object (QC): 9 Does the Pt use WC or Scooter?: Yes Wheel 50 feet with 2 turns (QC: 3 Type: Manual Wheel 150 feet: 3 Type: Manual PT Plan Problem List Problem List: Activity Tolerance, Functional Strength, Safety, Balance, Gait, Transfer, Bed Mobility, ROM Treatment/Plan Treatment Plan: Continue Plan of Care Treatment Plan: Bed Mobility, Education, Functional Activity Rashid, Functional Strength, Gait, Safety, Therapeutic Exercise, Transfers Treatment Duration: May 21, 2019 Frequency: 6 times per week Estimated Hrs Per Day: .25 hour per day Patient and/or Family Agrees t: Yes Safety Risks/Education Patient Education: Gait Training, Transfer Techniques, Correct Positioning, Safety Issues Teaching Recipient: Patient Teaching Methods: Demonstration, Discussion Response to Teaching: Reinforcement Needed Time/GCodes Time In: 1022 Time Out: 1033 Total Billed Treatment Time: 11 Total Billed Treatment 1 visit FA CASEY BAUM PT May 09, 2019 10:39 POS
[2019-05-09 12:00] VITALS: BP 141/54
--- NOTE | 2019-05-09 15:15 | Consultation-Cardiology ---
HPI-Cardiology Cardiology Consultation: Date of Consultation 05/09/19 Time Seen by a Provider: 14:50 Date of Admission 05-06-19 Attending Physician Claudia Pino DO Admitting Physician Aden Mckeon MD Consulting Physician Braulio Krishna MD Primary Drip Molder: Dr. De Leon HPI: Chief Complaint: Dyspnea Ms. Alfaro is a 63 year old female admitted on 05-07-19. She is currently in 409. She reports she came to the hospital on 05-07-19 d/t increasing SOB, fever and chills. She denies any c/o CP, palpitations. She has chronic mod dyspnea which she feels is currently almost back to her baseline. She states she was told her HR was fast during the night, but she was unaware of it. She has chronic bilat LE swelling. She reports she just saw Dr. De Leon approx 3 weeks ago in office. Review of Systems-Cardiology Review of Systems Constitutional: chills, fever, malaise Eyes: No vision change Ears/Nose/Throat: No epistaxis, No recent hearing loss Respiratory: As described under HPI Cardiovascular: As described under HPI Gastrointestinal: No constipation; diarrhea; No nausea, No vomiting Genitourinary: No dysuria, No hematuria Musculoskeletal: joint pain Skin: No rash on exposed areas, No ulcerations on exposed areas Psychiatric/Neurological: No anxiety, No depression, No focal weakness, No syncope Hematologic: No bleeding abnormalities All Other Systems Reviewed Negative Unless Noted: Yes EAO-Vjxckh-Tyqbxc Hx Patient Social History Alcohol Use: Denies Use Recreational Drug Use: No Smoking Status: Never a Smoker 2nd Hand Smoke Exposure: No Recent Foreign Travel: No Recent Infectious Disease Expo: No Immunizations Up To Date Tetanus Booster (TDap): Unknown Date of Pneumonia Vaccine: Mar 13, 2013 Date of Influenza Vaccine: Apr 23, 2019 Past Medical History PMH As described under Assessment. Family Medical History Family Medical History: She reports her father had CAD diagnosed in his late 40's. Her mother had CAD diagnosed in her late 30's, early 40's with an IL. Family History: Cancer 03 MOTHER, Onset:40's - 50 Family history: Cardiovascular disease 03 FATHER, Onset:40's - 50 03 MOTHER, Onset:30's - 40 Myocardial infarction 03 MOTHER, Onset:30's - 40 Allergies and Home Medications Allergies Coded Allergies: ceftriaxone (Verified Allergy, Unknown, pt has received Zosyn w/o issue, 05/09/19) ibuprofen (Verified Allergy, Unknown, PT TAKES ASA AT HOME, 08/02/17) PER MED REC diazepam (Verified Adverse Reaction, Severe, 12/04/18) Home Medications Albuterol Sulfate 1 Puff Puff, 2 PUFF INH Q6H PRN for SHORTNESS OF BREATH, (Reported) Albuterol Sulfate 2.5 Mg/3 Ml Vial.neb, 2.5 MG NEB Q4H PRN for SHORTNESS OF BREATH, (Reported) Aspirin 81 Mg Tablet.dr, 81 MG PO DAILY, (Reported) Atorvastatin Calcium 80 Mg Tablet, 80 MG PO HS, (Reported) Bimatoprost 2.5 Ml Drops, 1 DROP OU HS, (Reported) Isosorbide Mononitrate 30 Mg Tab.er.24h, 30 MG PO DAILY, (Reported) Levothyroxine Sodium 175 Mcg Tablet, 175 MCG PO DAILY, (Reported) Metformin HCl 500 Mg Tablet, 500 MG PO BID, (Reported) Metoprolol Tartrate 25 Mg Tablet, 25 MG PO BID, (Reported) Morphine Sulfate 30 Mg Tablet.er, 30 MG PO BID, (Reported) Oxycodone HCl/Acetaminophen 1 Each Tablet, 1 TAB PO QID PRN for PAIN-MODERATE (5-7), (Reported) Phenylephrine HCl 10 Mg Tablet, 10 MG PO Q4H PRN for CONGESTION, (Reported) Patient Home Medication List Home Medication List Reviewed: Yes Physical Exam-Cardiology Physical Exam Vital Signs/I&O 05/09/19 05/09/19 05/09/19 05/09/19 03:48 07:00 07:08 07:13 Temp 36.6 Pulse 107 82 Resp 20 B/P (MAP) 171/90 (117) Pulse Ox 97 99 99 O2 Delivery NIV Bilevel Nasal Cannula Nasal Cannula O2 Flow Rate 30.00 6.00 4.00 05/09/19 05/09/19 05/09/19 05/09/19 08:00 09:00 10:09 12:00 Temp 35.7 36.3 Pulse 128 50 Resp 18 18 B/P (MAP) 145/79 (101) 141/54 (83) Pulse Ox 96 96 96 95 O2 Delivery Nasal Cannula Nasal Cannula Nasal Cannula Nasal Cannula O2 Flow Rate 6.00 4.00 4.00 6.00 05/09/19 05/09/19 13:00 14:57 Pulse 128 Pulse Ox 95 O2 Delivery Nasal Cannula O2 Flow Rate 4.00 05/09/19 00:00 Intake Total 1050 ml Output Total 2175 ml Balance -1125 ml Capillary Refill : Less Than 3 Seconds Constitutional: AAO x 3, well-developed, well-nourished HEENT: PERRL, hearing is well preserved, oral hygience is good Neck: No carotid bruit; carotid pulses are 2 + bilaterally Respiratory: No accessory muscle use, No respiratory distress; chest expansion is symmetric, chest is bilaterally symmetric, other (fair to good air entry) Cardiovascular: regular rate-rhythm; No JVD; S1 and S2 Gastrointestinal: No tender; soft, round, other (abdominal wall hernia) Rectal: deferred Genital/Rectal: other (urinary catheter to DD; clear, yellow) Extremities: other (mod bilat LE swelling) Neurologic/Psychiatric: grossly intact (moves extremities) Skin: No rash on exposed areas, No ulcerations on exposed areas Data Review Labs Laboratory Tests 05/09/19 03:30: White Blood Count 6.7, Red Blood Count 3.39L, Hemoglobin 9.3L, Hematocrit 32L, Mean Corpuscular Volume 95, Mean Corpuscular Hemoglobin 27, Mean Corpuscular Hemoglobin Concent 29L, Red Cell Distribution Width 16.2H, Platelet Count 192, Mean Platelet Volume 9.5, Neutrophils (%) (Auto) 90H, Lymphocytes (%) (Auto) 5L, Monocytes (%) (Auto) 5, Eosinophils (%) (Auto) 0, Basophils (%) (Auto) 0, Neutrophils # (Auto) 6.0, Lymphocytes # (Auto) 0.3L, Monocytes # (Auto) 0.3, Eosinophils # (Auto) 0.0, Basophils # (Auto) 0.0, Sodium Level 140, Potassium Level 4.2, Chloride Level 95L, Carbon Dioxide Level 34H, Anion Gap 11, Blood Urea Nitrogen 29H, Creatinine 1.21, Estimat Glomerular Filtration Rate 45, BUN/Creatinine Ratio 24, Glucose Level 140H, Calcium Level 8.6 Microbiology 05/06/19 Blood Culture - Preliminary, Resulted No growth 05/06/19 MRSA Screen - Final, Complete MRSA not isolated 05/07/19 Lice/Scabies Examination - Final, Complete Laboratory Tests 05/08/19 03:20 05/09/19 03:30 Radiology NAME: RENÉ ALFARO [facility] REC#: [id number] PT STATUS: ADM IN : 1955 PHYSICIAN: PATRICK WESTFALL DO ADMIT DATE: 05/06/19 Signed Date of Exam:05/09/19 CHEST 1 VIEW, AP/PA ONLY EXAMINATION: Chest 1 view HISTORY: Pneumonia. Severe sepsis. COMPARISON: 05/08/2019 FINDINGS: Consolidative opacities are again seen throughout the majority of the right lung with relative sparing of the right apex. This appearance appears overall similar to the prior exam. Patchy opacities are also noted in the left perihilar and basilar region. Likely right-sided pleural effusion is present. No large pneumothorax. The cardiac silhouette is enlarged. No acute osseous abnormalities are seen. IMPRESSION: 1. Overall stable appearance of the opacities throughout the right lung and in the left perihilar and basilar region with likely right-sided pleural effusion. These findings are concerning for pneumonia, with components of atelectasis or edema possible. 2. Stable cardiomegaly. Dictated by: Dictated on workstation # [id number] Dict: 05/09/19 0847 Trans: 05/09/19 0915 [facility] [id number] Interpreted by: JERRI STEWARD DO Electronically signed by: JERRI STEWARD DO 05/09/19 0915 ECG Impression ECG Initial ECG Rhythm: Normal Sinus A/P-Cardiology Assessment/Admission Diagnosis Pneumonia - management per medical services Acute exacerbation of COPD Acute on chronic diastolic CHF Coronary artery disease, history of stent using 3.012 mm Ion stent to the LAD. Most recent cardiac catheterization done July 12, 2018 revealed patent stent in the mid LAD with mild disease at the mid to distal LAD nonobstructive disease, otherwise mild coronary artery disease nonobstructive disease Echocardiogram done in June 2018 showing normal left ventricular size with ejection fraction 55-65% grade 1 diastolic dysfunction, left atrial dilatation, moderate aortic regurgitation, PA pressure 30 mmHg. Intolerance to aggressive anticoagulation due to anemia and GI bleed. Hypertension Hyperlipidemia Mild bilateral carotid stenosis, ultrasound was done in July 2017 COPD, oxygen dependent History of deep venous thrombosis, Xarelto was discontinued by Dr. 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 Obesity. BMI is 57 Skin cancer of face- managed by Dr. Lange Obesity-hypoventilation syndrome Discussion and Recomendations Multi-factorial dyspnea as per reasons noted above Management of pneumonia, COPD with pulmonary/medical services Acute on chronic CHF - treat with diuretics Continue current medications Monitor lab closely Replace electrolytes We would like to thank medical services for this consult Clinical Quality Measures DVT/VTE Risk/Contraindication: Risk Factor Score Per Nursin RFS Level Per Nursing on Admit: 4+=Very High OLEG WHITE May 09, 2019 15:15 POS
[2019-05-09] MEDS ORDERED: FUROSEMIDE 40 MG (LASIX) TAB PO NR (15:30)
[2019-05-09] MEDS: AUGMENTIN 875 MG TAB (AMOXICILLIN/CLAVULANATE) PO SCH (16:27)
[2019-05-09 16:44] VITALS: BP 131/81
[2019-05-09 18:26] VITALS: BP 129/75
[2019-05-09 19:47] VITALS: BP 128/76
[2019-05-09] MEDS: LATANOPROST 0.005% (XALATAN) OPHTH SOLN 2.5 ML OU SCH (20:37)
--- NOTE | 2019-05-09 21:37 | Consultation-Cardiology ---
HPI-Cardiology Cardiology Consultation: Date of Consultation 05/09/19 Time Seen by a Provider: 21:00 Date of Admission Attending Physician Claudia Pino DO Admitting Physician Aden Mckeon MD Consulting Physician GARIMA MISTRY MD, FACP, FACC HPI: Chief Complaint: CC: Shortness of breath HPI Ms. Alfaro is a 63 year old female admitted on 05-07-19. She is currently in 409. She reports she came to the hospital on 05-07-19 d/t increasing SOB, fever and chills. She denies any c/o CP, palpitations. She has chronic mod dyspnea which she feels is currently almost back to her baseline. She states she was told her HR was fast during the night, but she was unaware of it. She has chronic bilat LE swelling. She reports she just saw Dr. Haley lopez 3 weeks ago in office. Review of Systems-Cardiology Review of Systems Constitutional: chills, fever, malaise Eyes: No vision change Ears/Nose/Throat: No epistaxis, No recent hearing loss Respiratory: As described under HPI Cardiovascular: As described under HPI Gastrointestinal: No constipation; diarrhea; No nausea, No vomiting Genitourinary: No dysuria, No hematuria Musculoskeletal: joint pain Skin: No rash on exposed areas, No ulcerations on exposed areas Psychiatric/Neurological: No anxiety, No depression, No focal weakness, No syncope Hematologic: No bleeding abnormalities All Other Systems Reviewed Negative Unless Noted: Yes XPC-Fgjgzd-Xymvvj Hx Patient Social History Alcohol Use: Denies Use Recreational Drug Use: No Smoking Status: Never a Smoker 2nd Hand Smoke Exposure: No Recent Foreign Travel: No Recent Infectious Disease Expo: No Immunizations Up To Date Tetanus Booster (TDap): Unknown Date of Pneumonia Vaccine: Mar 13, 2013 Date of Influenza Vaccine: Apr 23, 2019 Past Medical History PMH As described under Assessment. Family Medical History Family Medical History: She reports her father had CAD diagnosed in his late 40's. Her mother had CAD diagnosed in her late 30's, early 40's with an SC. Family History: Cancer 03 MOTHER, Onset:40's - 50 Family history: Cardiovascular disease 03 FATHER, Onset:40's - 50 03 MOTHER, Onset:30's - 40 Myocardial infarction 03 MOTHER, Onset:30's - 40 Allergies and Home Medications Allergies Coded Allergies: ceftriaxone (Verified Allergy, Unknown, pt has received Zosyn w/o issue, 05/09/19) ibuprofen (Verified Allergy, Unknown, PT TAKES ASA AT HOME, 08/02/17) PER MED REC diazepam (Verified Adverse Reaction, Severe, 12/04/18) Home Medications Albuterol Sulfate 1 Puff Puff, 2 PUFF INH Q6H PRN for SHORTNESS OF BREATH, (Reported) Albuterol Sulfate 2.5 Mg/3 Ml Vial.neb, 2.5 MG NEB Q4H PRN for SHORTNESS OF BREATH, (Reported) Aspirin 81 Mg Tablet.dr, 81 MG PO DAILY, (Reported) Atorvastatin Calcium 80 Mg Tablet, 80 MG PO HS, (Reported) Bimatoprost 2.5 Ml Drops, 1 DROP OU HS, (Reported) Isosorbide Mononitrate 30 Mg Tab.er.24h, 30 MG PO DAILY, (Reported) Levothyroxine Sodium 175 Mcg Tablet, 175 MCG PO DAILY, (Reported) Metformin HCl 500 Mg Tablet, 500 MG PO BID, (Reported) Metoprolol Tartrate 25 Mg Tablet, 25 MG PO BID, (Reported) Morphine Sulfate 30 Mg Tablet.er, 30 MG PO BID, (Reported) Oxycodone HCl/Acetaminophen 1 Each Tablet, 1 TAB PO QID PRN for PAIN-MODERATE (5-7), (Reported) Phenylephrine HCl 10 Mg Tablet, 10 MG PO Q4H PRN for CONGESTION, (Reported) Patient Home Medication List Home Medication List Reviewed: Yes Physical Exam-Cardiology Physical Exam Vital Signs/I&O 05/09/19 05/09/19 05/09/19 05/09/19 10:09 12:00 13:00 14:57 Temp 36.3 Pulse 50 128 Resp 18 B/P (MAP) 141/54 (83) Pulse Ox 96 95 95 O2 Delivery Nasal Cannula Nasal Cannula Nasal Cannula O2 Flow Rate 4.00 6.00 4.00 05/09/19 05/09/19 05/09/19 05/09/19 16:44 18:01 18:06 18:26 Temp 36.9 Pulse 128 130 Resp 22 B/P (MAP) 131/81 (98) 129/75 (93) Pulse Ox 96 94 O2 Delivery Nasal Cannula Nasal Cannula Nasal Cannula O2 Flow Rate 4.00 4.00 05/09/19 05/09/19 19:00 19:47 Temp 36.0 Pulse 131 130 Resp 24 B/P (MAP) 128/76 (93) Pulse Ox 94 O2 Delivery Nasal Cannula O2 Flow Rate 4.00 05/09/19 00:00 Intake Total 1050 ml Output Total 2175 ml Balance -1125 ml Capillary Refill : Less Than 3 Seconds Constitutional: AAO x 3, well-developed, well-nourished HEENT: PERRL, hearing is well preserved, oral hygience is good Neck: No carotid bruit; carotid pulses are 2 + bilaterally Respiratory: No accessory muscle use, No respiratory distress; chest expansion is symmetric, chest is bilaterally symmetric, other (fair to good air entry) Cardiovascular: regular rate-rhythm; No JVD; S1 and S2 Gastrointestinal: No tender; soft, round, other (abdominal wall hernia) Rectal: deferred Genital/Rectal: other (urinary catheter to DD; clear, yellow) Extremities: other (mod bilat LE swelling) Neurologic/Psychiatric: grossly intact (moves extremities) Skin: No rash on exposed areas, No ulcerations on exposed areas Data Review Labs Laboratory Tests 05/09/19 03:30: White Blood Count 6.7, Red Blood Count 3.39L, Hemoglobin 9.3L, Hematocrit 32L, Mean Corpuscular Volume 95, Mean Corpuscular Hemoglobin 27, Mean Corpuscular Hemoglobin Concent 29L, Red Cell Distribution Width 16.2H, Platelet Count 192, Mean Platelet Volume 9.5, Neutrophils (%) (Auto) 90H, Lymphocytes (%) (Auto) 5L, Monocytes (%) (Auto) 5, Eosinophils (%) (Auto) 0, Basophils (%) (Auto) 0, Neutrophils # (Auto) 6.0, Lymphocytes # (Auto) 0.3L, Monocytes # (Auto) 0.3, Eosinophils # (Auto) 0.0, Basophils # (Auto) 0.0, Sodium Level 140, Potassium Level 4.2, Chloride Level 95L, Carbon Dioxide Level 34H, Anion Gap 11, Blood Urea Nitrogen 29H, Creatinine 1.21, Estimat Glomerular Filtration Rate 45, BUN/Creatinine Ratio 24, Glucose Level 140H, Calcium Level 8.6 Microbiology 05/06/19 Blood Culture - Preliminary, Resulted No growth 05/06/19 MRSA Screen - Final, Complete MRSA not isolated 05/07/19 Lice/Scabies Examination - Final, Complete Laboratory Tests 05/08/19 03:20 05/09/19 03:30 A/P-Cardiology Assessment/Admission Diagnosis Sinus tach vs slow A Flutter with 2:1 AV conduction on ECG and tele of 05/09/19 Pneumonia - management per medical services Acute exacerbation of COPD Acute on chronic diastolic CHF Coronary artery disease, history of stent using 3.012 mm Ion stent to the LAD. Most recent cardiac catheterization done July 12, 2018 revealed patent stent in the mid LAD with mild disease at the mid to distal LAD nonobstructive disease, otherwise mild coronary artery disease nonobstructive disease Echocardiogram done in June 2018 showing normal left ventricular size with ejection fraction 55-65% grade 1 diastolic dysfunction, left atrial dilatation, moderate aortic regurgitation, PA pressure 30 mmHg. Intolerance to aggressive anticoagulation due to anemia and GI bleed. Hypertension Hyperlipidemia Mild bilateral carotid stenosis, ultrasound was done in July 2017 COPD, oxygen dependent History of deep venous thrombosis, Xarelto was discontinued by Dr. 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 Obesity. BMI is 57 Skin cancer of face- managed by Dr. Lange Obesity-hypoventilation syndrome Discussion and Recomendations Multi-factorial dyspnea as per reasons noted above Management of pneumonia, COPD with pulmonary/medical services Acute on chronic CHF - treat with diuretics Add long-acting diltiazem Increase bb Monitor lab closely Replace electrolytes as needed We would like to thank Medical Services for this consult Clinical Quality Measures DVT/VTE Risk/Contraindication: Risk Factor Score Per Nursin RFS Level Per Nursing on Admit: 4+=Very High GARIMA MISTRY MD FACP [facility] May 09, 2019 21:37 POS
[2019-05-09] MEDS ORDERED: DILTIAZEM 240 MG (CARDIZEM CD) CAP PO ONE (21:45)
[2019-05-10 00:19] VITALS: BP 148/93
[2019-05-10] MEDS: RT-ALBUTEROL/IPRATROPIUM 3 ML (DUONEB) VIAL INH SCH ×6 (02:30→21:34)
[2019-05-10 04:59] VITALS: BP 143/82
[2019-05-10 05:25] LABS: BASOPHILS % (AUTO) 0 % (0-10); EOSINOPHILS % (AUTO) 0 % (0-10); HEMATOCRIT 36 % (35-52); HEMOGLOBIN 10.5 G/DL (11.5-16.0); LYMPHOCYTES # (AUTO) 1.2 X 10^3 (1.0-4.0); LYMPHOCYTES % (AUTO) 14 % (12-44); MEAN CORPUSCULAR HEMOGLOBIN 28 PG (25-34); MEAN CORPUSCULAR HGB CONC 29 G/DL (32-36); MEAN CORPUSCULAR VOLUME 95 FL (80-99); MEAN PLATELET VOLUME 9.6 FL (7.4-10.4); MONOCYTES % (AUTO) 13 % (0-12); NEUTROPHILS # (AUTO) 5.9 X 10^3 (1.8-7.8); NEUTROPHILS % (AUTO) 73 % (42-75); PLATELET COUNT 197 10^3/uL (130-400); RED CELL DISTRIBUTION WIDTH 16.2 % (10.0-14.5); WHITE BLOOD COUNT 8.1 10^3/uL (4.3-11.0)
[2019-05-10 06:01] LABS: CALCIUM 8.7 MG/DL (8.5-10.1); CREATININE SERUM 1.17 MG/DL (0.60-1.30); POTASSIUM 3.9 MMOL/L (3.6-5.0)
[2019-05-10] MEDS: KCL 10 MEQ TAB (MICRO K) PO SCH (06:13)
[2019-05-10] MEDS: predniSONE 20 MG TAB PO SCH (06:13)
[2019-05-10] MEDS: AUGMENTIN 875 MG TAB (AMOXICILLIN/CLAVULANATE) PO SCH ×2 (06:13→16:32)
[2019-05-10] MEDS: LEVOTHYROXINE 75 MCG (LEVOTHROID) TABLET PO SCH (06:13)
[2019-05-10] MEDS: LEVOTHYROXINE 100 MCG (LEVOTHROID) TAB PO SCH (06:13)
[2019-05-10] MEDS: RT-BUDESONIDE NEBS 0.5 MG/2ML (PULMICORT) AMP INH SCH (07:00)
[2019-05-10 08:00] VITALS: BP 163/80
--- NOTE | 2019-05-10 09:02 | Physical Therapy Daily Note ---
PT Daily Note-Current Subjective Patient is up on commode and agrees to PT. Mental Status Patient Orientation: Normal For Age Attachments: Oxygen Transfers SCALE: Activities may be completed with or without assistive devices. 3-Dkzdthatfx-igoborc completes the activity by him/herself with no assistance from a helper. 5-Set-up or Clean-up Assistance-helper sets up or cleans up; patient completes activity. [place] assists only prior to or following the activity. 4-Supervision or Touching Assistance-helper provides verbal cues and/or touching/steadying and/or contact guard assistance as patient completes activity. Assistance may be provided throughout the activity or intermittently. 3-Partial/Moderate Assistance-helper does LESS THAN HALF the effort. [place] lifts, holds or supports trunk or limbs, but provides less than half the effort. 2-Substantial/Maximal Assistance-helper does MORE THAN HALF the effort. [place] lifts or holds trunk or limbs and provides more than half the effort. 7-Tmtarawkg-uachpk does ALL the effort. Patient does none of the effort to complete the activity. Or, the assistance of 2 or more helpers is required for the patient to complete the activity. If activity was not attempted, code reason: 7-Patient Refused. 9-Not Applicable-not attempted and the patient did not perform the activity before the current illness, exacerbation or injury. 10-Not Attempted due to Environmental Limitations-(lack of equipment, weather restraints, etc.). 88-Not Attempted due to Medical Conditions or Safety Concerns. Sit to Lying (QC): 4 Lying to Sitting/Side of Bed(Q: 5 Sit to Stand (QC): 5 Chair/Dmi-eu-Hsjla Xfer(QC): 5 Toilet Transfer (QC): 5 assist for right LE only Exercises Supine Ex: Ankle pumps, Heel Slides Supine Reps: 10 Seated Therapy Exercises: Long arc quads Seated Reps: 10 Assessment Patient tolerated treatment well and reports she is going home tomorrow. Patient reports she is at her PLOF with all gross motor skills. PT Manager Cath Lab Goals Manager Cath Lab Goals PT Long-Term Goals Time Frame: May 21, 2019 Roll Left & Right (QC): 6 Sit to Lying (QC): 6 Lying-Sitting on Side/Bed(QC): 6 Sit to Stand (QC): 6 Chair/Doi-hp-Ojztk Xfer(QC): 6 Toilet Transfer (QC): 6 Car Transfer (QC): 6 Does the Patient Walk: Yes Walk 10 feet (QC): 6 Walk 50ft with 2 Turns (QC): 6 Walk 150 ft (QC): 9 Walking 10ft on Uneven Surface: 6 1 Step (curb) (QC): 3 4 Steps (QC): 9 12 Steps (QC): 9 Picking up an Object (QC): 9 Does the Pt use WC or Scooter?: Yes Wheel 50 feet with 2 turns (QC: 3 Type: Manual Wheel 150 feet: 3 Type: Manual PT Plan Treatment/Plan Treatment Plan: Continue Plan of Care Treatment Plan: Bed Mobility, Education, Functional Activity Rashid, Functional Strength, Gait, Safety, Therapeutic Exercise, Transfers Treatment Duration: May 21, 2019 Frequency: 6 times per week Estimated Hrs Per Day: .25 hour per day Patient and/or Family Agrees t: Yes Time/GCodes Time In: 746 Time Out: 756 Total Billed Treatment Time: 10 Total Billed Treatment 1 visit EX 10 min JACQUELINE ALANIS PT May 10, 2019 09:02 POS
[2019-05-10] MEDS: ASPIRIN E.C. 81 MG (ECOTRIN) TAB PO SCH (09:08)
[2019-05-10] MEDS: meTOprolol TARTRATE 25 MG (LOPRESSOR) TABLET PO SCH ×2 (09:09→20:28)
[2019-05-10] MEDS: amLODIPine 5 MG (NORVASC) TAB PO SCH (09:09)
[2019-05-10] MEDS: FUROSEMIDE 40 MG (LASIX) TAB PO SCH (09:09)
[2019-05-10] MEDS: morphine ER 30 MG (MS CONTIN) TAB PO SCH ×2 (09:09→20:29)
--- NOTE | 2019-05-10 10:30 | Progress Note - Hospitalist ---
Subjective HPI/CC On Admission Date Seen by Provider: May 10, 2019 Time Seen by Provider: 10:15 CC: Acute on chronic respiratory failure HPI: This is a 63yoWF clinic pt of [facility] who has a history of morbid obesity and obesity hypoventilation syndrome who presented to the ER with respiratory failure, placed on BiPAP and sent to the ICU and is currently doing better but dependent on BiPAP. Appreciate Dr. Perkins's consultation. Wound care will be consulted for a wound underneath her abdominal fold. WC was 14 and now 9, Hgb s table at 8.5. pH 7.37/61/85. BNP 689 consulting cardiology. Subjective/Events-last exam Cardiology assessed her to have an episode of atrial fibrillation Denies any significant pain Open for discharge tomorrow Eating and drinking well Ambulating around pretty well considering her habitus No shortness of breath Review of Systems General: Fatigue Objective Exam Vital Signs Vital Signs Date Time Temp Pulse Resp B/P (MAP) Pulse Ox O2 Delivery O2 Flow Rate FiO2 05/10/19 18:57 93 Nasal Cannula 4.00 05/10/19 16:25 36.2 58 24 166/73 (104) 05/08/19 08:00 30 Capillary Refill : Less Than 3 Seconds General Appearance: No Apparent Distress, WD/WN, Obese Respiratory: Chest Non Tender, Lungs Clear, Normal Breath Sounds, No Accessory Muscle Use, No Respiratory Distress Cardiovascular: Regular Rate, Rhythm, No Edema, No Gallop, No JVD, No Murmur, Normal Peripheral Pulses Neurologic/Psychiatric: Alert, Oriented x3, No Motor/Sensory Deficits, Normal Mood/Affect Results/Procedures Lab Laboratory Tests 05/10/19 04:52 Patient resulted labs reviewed. Assessment/Plan Assessment and Plan Assess & Plan/Chief Complaint Assessment: Severe sepsis Acute on chronic respiratory failure CO2 retention Morbid obesity Obesity hypoventilation syndrome Pneumonia Exacerbation of COPD PAF? Plan: Physical therapy BiPAP mask replacement per DME Monitor closely Obesity precludes anything but a poor prognosis long-term DC Tuesday? Cardiology appreciated Diagnosis/Problems Diagnosis/Problems (1) Severe sepsis (2) Chronic respiratory failure with hypoxia and hypercapnia Status: Acute (3) Mild renal insufficiency Status: Resolved (4) Obesity hypoventilation syndrome Status: Chronic (5) CAD (coronary artery disease) Status: Chronic (6) Anxiety Status: Chronic (7) COPD (chronic obstructive pulmonary disease) Status: Acute Clinical Quality Measures DVT/VTE Risk/Contraindication: Risk Factor Score Per Nursin RFS Level Per Nursing on Admit: 4+=Very High KASSIDY IRELAND DO May 10, 2019 10:30 POS
[2019-05-10 12:00] VITALS: BP 158/75
--- NOTE | 2019-05-10 15:38 | Progress Note - Cardiology ---
Cardiology SOAP Progress Note Subjective: Notes weakness that is improving Shortness of breath at its usual baseline No cp No palp or syncope Objective: I&O/Vital Signs 05/10/19 05/10/19 05/10/19 05/10/19 04:59 06:49 07:01 07:07 Temp 35.8 Pulse 65 65 Resp 24 B/P (MAP) 143/82 (102) Pulse Ox 96 98 99 O2 Delivery NIV Bilevel Nasal Cannula Nasal Cannula O2 Flow Rate 4.00 4.00 4.00 05/10/19 05/10/19 05/10/19 05/10/19 08:00 09:30 10:44 12:00 Temp 35.8 36.2 Pulse 116 72 Resp 18 20 B/P (MAP) 163/80 (107) 158/75 (102) Pulse Ox 94 94 94 93 O2 Delivery Nasal Cannula Nasal Cannula Nasal Cannula Nasal Cannula O2 Flow Rate 4.00 4.00 4.00 4.00 05/10/19 05/10/19 12:50 14:44 Pulse 92 Pulse Ox 95 O2 Delivery Nasal Cannula O2 Flow Rate 4.00 05/10/19 00:00 Intake Total 2520 ml Output Total 1950 ml Balance 570 ml Weight (Pounds): 273 Weight (Ounces): 0.0 Weight (Calculated Kilograms): [phone] Constitutional: AAO x 3, well-developed, well-nourished Respiratory: No accessory muscle use, No respiratory distress; chest expansion is symmetric, chest is bilaterally symmetric, other (fair to good air entry) Cardiovascular: regular rate-rhythm; No JVD; S1 and S2 Gastrointestional: No tender; soft, round, other (abdominal wall hernia) Genital/Rectal: other (urinary catheter to DD; clear, yellow) Extremities: other (mod bilat LE swelling) Neurologic/Psychiatric: grossly intact (moves extremities) Skin: No rash on exposed areas, No ulcerations on exposed areas Results/Procedures: Labs Laboratory Tests 05/10/19 04:52: White Blood Count 8.1, Red Blood Count 3.77L, Hemoglobin 10.5L, Hematocrit 36, Mean Corpuscular Volume 95, Mean Corpuscular Hemoglobin 28, Mean Corpuscular Hemoglobin Concent 29L, Red Cell Distribution Width 16.2H, Platelet Count 197, Mean Platelet Volume 9.6, Neutrophils (%) (Auto) 73, Lymphocytes (%) (Auto) 14, Monocytes (%) (Auto) 13H, Eosinophils (%) (Auto) 0, Basophils (%) (Auto) 0, Neutrophils # (Auto) 5.9, Lymphocytes # (Auto) 1.2, Monocytes # (Auto) 1.0, Eosinophils # (Auto) 0.0, Basophils # (Auto) 0.0, Sodium Level 141, Potassium Level 3.9, Chloride Level 96L, Carbon Dioxide Level 33H, Anion Gap 12, Blood Urea Nitrogen 33H, Creatinine 1.17, Estimat Glomerular Filtration Rate 46, BUN/Creatinine Ratio 28, Glucose Level 98, Calcium Level 8.7 Microbiology 05/06/19 Blood Culture - Preliminary, Resulted No growth 05/06/19 MRSA Screen - Final, Complete MRSA not isolated 05/07/19 Lice/Scabies Examination - Final, Complete Laboratory Tests 05/09/19 03:30 05/10/19 04:52 A/P: Assessment: Sinus tach vs slow A Flutter with 2:1 AV conduction on ECG and tele of 05/09/19, controlled Pneumonia - management per medical services Acute exacerbation of COPD Acute on chronic diastolic CHF Coronary artery disease, history of stent using 3.012 mm Ion stent to the LAD. Most recent cardiac catheterization done July 12, 2018 revealed patent stent in the mid LAD with mild disease at the mid to distal LAD nonobstructive disease, otherwise mild coronary artery disease nonobstructive disease Echocardiogram done in June 2018 showing normal left ventricular size with ejection fraction 55-65% grade 1 diastolic dysfunction, left atrial dilatation, moderate aortic regurgitation, PA pressure 30 mmHg. Intolerance to aggressive anticoagulation due to anemia and GI bleed. Hypertension Hyperlipidemia Mild bilateral carotid stenosis, ultrasound was done in July 2017 COPD, oxygen dependent History of deep venous thrombosis, Xarelto was discontinued by Dr. 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 Obesity. BMI is 57 Skin cancer of face- managed by Dr. Lange Obesity-hypoventilation syndrome Plan: * Continue current regimen * She refuses OAC * Monitor and correct labs * Ok to d/c from cardiac standpoint * F/u with Dr De Leon in 1-2 weeks of d/c GARIMA MISTRY MD FACP FAC CCDS May 10, 2019 15:38 POS
[2019-05-10 16:25] VITALS: BP 166/73
[2019-05-10 19:35] VITALS: BP 138/71
[2019-05-10] MEDS: LATANOPROST 0.005% (XALATAN) OPHTH SOLN 2.5 ML OU SCH (20:29)
[2019-05-11] MEDS: RT-BUDESONIDE NEBS 0.5 MG/2ML (PULMICORT) AMP INH SCH ×2 (00:07→06:26)
[2019-05-11 00:15] VITALS: BP 120/67
[2019-05-11] MEDS: RT-ALBUTEROL/IPRATROPIUM 3 ML (DUONEB) VIAL INH SCH ×3 (02:55→10:14)
[2019-05-11 04:00] VITALS: BP 123/71
[2019-05-11 05:22] LABS: BASOPHILS % (AUTO) 0 % (0-10); EOSINOPHILS # (AUTO) 0.1 10^3/uL (0.0-0.3); EOSINOPHILS % (AUTO) 1 % (0-10); HEMATOCRIT 34 % (35-52); HEMOGLOBIN 9.8 G/DL (11.5-16.0); LYMPHOCYTES # (AUTO) 1.5 X 10^3 (1.0-4.0); LYMPHOCYTES % (AUTO) 15 % (12-44); MEAN CORPUSCULAR HEMOGLOBIN 28 PG (25-34); MEAN CORPUSCULAR HGB CONC 29 G/DL (32-36); MEAN CORPUSCULAR VOLUME 95 FL (80-99); MEAN PLATELET VOLUME 9.8 FL (7.4-10.4); MONOCYTES # (AUTO) 0.9 X 10^3 (0.0-1.0); MONOCYTES % (AUTO) 10 % (0-12); NEUTROPHILS # (AUTO) 7.1 X 10^3 (1.8-7.8); NEUTROPHILS % (AUTO) 74 % (42-75); PLATELET COUNT 179 10^3/uL (130-400); WHITE BLOOD COUNT 9.7 10^3/uL (4.3-11.0)
[2019-05-11 05:39] LABS: CALCIUM 8.1 MG/DL (8.5-10.1); CREATININE SERUM 1.25 MG/DL (0.60-1.30); POTASSIUM 3.6 MMOL/L (3.6-5.0)
[2019-05-11] MEDS: LEVOTHYROXINE 100 MCG (LEVOTHROID) TAB PO SCH (06:36)
[2019-05-11] MEDS: KCL 10 MEQ TAB (MICRO K) PO SCH (06:36)
[2019-05-11] MEDS: LEVOTHYROXINE 75 MCG (LEVOTHROID) TABLET PO SCH (06:36)
[2019-05-11] MEDS: AUGMENTIN 875 MG TAB (AMOXICILLIN/CLAVULANATE) PO SCH (06:36)
[2019-05-11] MEDS: predniSONE 20 MG TAB PO SCH (06:36)
--- NOTE | 2019-05-11 06:41 | Diagnostic Imaging Report ---
INDICATION: Pneumonia COMPARISON: 05/09/2019 FINDINGS: Single view of the chest demonstrates stable infiltrates in the left hemithorax. There is increasing opacification of the right hemithorax. The heart is prominent. There is no pneumothorax. Probable effusion is seen in the right base. IMPRESSION: Worsening opacification right hemithorax. Continued follow-up recommended. Dictated by: Dictated on workstation # [id number]
[2019-05-11 08:00] VITALS: BP 146/79
[2019-05-11] MEDS: morphine ER 30 MG (MS CONTIN) TAB PO SCH (09:19)
[2019-05-11] MEDS: meTOprolol TARTRATE 25 MG (LOPRESSOR) TABLET PO SCH (09:19)
[2019-05-11] MEDS: FUROSEMIDE 40 MG (LASIX) TAB PO SCH (09:19)
[2019-05-11] MEDS: ASPIRIN E.C. 81 MG (ECOTRIN) TAB PO SCH (09:19)
[2019-05-11] MEDS: amLODIPine 5 MG (NORVASC) TAB PO SCH (09:19)
[2019-05-11] MEDS ORDERED: AMOX1TAB12 PO (11:46)
[2019-05-11] MEDS ORDERED: BUDE0.5A INH (11:46)
[2019-05-11] MEDS ORDERED: PRED10TA22 PO (11:46)
[2019-05-11] MEDS ORDERED: AMLO5TAB9 PO (11:46)
[2019-05-11] MEDS ORDERED: POTA10TA6 PO (11:46)
[2019-05-11] MEDS ORDERED: FURO40TA4 PO (11:46)
[2019-05-11] MEDS ORDERED: METO-333 PO (11:46)
--- NOTE | 2019-05-11 11:50 | Discharge Summary ---
Discharge Summary Hospital Course Was the Problem List Reviewed?: Yes Problems/Dx: (1) Severe sepsis (2) Pneumonia Status: Resolved (3) Chronic respiratory failure with hypoxia and hypercapnia Status: Acute (4) Mild renal insufficiency Status: Resolved (5) Obesity hypoventilation syndrome Status: Chronic (6) CAD (coronary artery disease) Status: Chronic (7) Anxiety Status: Chronic (8) COPD (chronic obstructive pulmonary disease) Status: Acute Qualifiers: Qualified Codes: J44.1 - Chronic obstructive pulmonary disease with (acute) exacerbation (9) Paroxysmal atrial fibrillation Status: Chronic Hospital Course Date of Admission: May 06, 2019 at 15:00 Admission Diagnosis : Family Physician/Provider: Aden Mckeon MD Date of Discharge: 05/11/19 Discharge Diagnosis: Severe sepsis, acute on chronic respiratory failure, obesity hypoventilation syndrome, hypoxia, paroxysmal atrial flutter/fibrillation, morbid obesity, noncompliant with BiPAP Hospital Course: Patient had a lengthy hospital course which started in the ICU for severe sepsis pneumonia and exacerbation of COPD. She tolerated BiPAP well. Labs were monitored closely. Cardiology was consulted due to paroxysmal atrial flutter patient cannot withstand aggressive anticoagulation due to GI bleeding in the past. Metoprolol was increased from 25 twice daily to 50 twice daily. She remained on antibiotics switched to oral antibiotics and initiated a prednisone taper dose. Minor changes made to home medications that include Lasix and potassium and will have close follow-up with primary care provider and cardiology. Labs and Pending Lab Test: Laboratory Tests 05/11/19 04:45: White Blood Count 9.7, Red Blood Count 3.55L, Hemoglobin 9.8L, Hematocrit 34L, Mean Corpuscular Volume 95, Mean Corpuscular Hemoglobin 28, Mean Corpuscular Hemoglobin Concent 29L, Red Cell Distribution Width 16.0H, Platelet Count 179, Mean Platelet Volume 9.8, Neutrophils (%) (Auto) 74, Lymphocytes (%) (Auto) 15, Monocytes (%) (Auto) 10, Eosinophils (%) (Auto) 1, Basophils (%) (Auto) 0, Neutrophils # (Auto) 7.1, Lymphocytes # (Auto) 1.5, Monocytes # (Auto) 0.9, Eosinophils # (Auto) 0.1, Basophils # (Auto) 0.0 05/11/19 04:55: Sodium Level 143, Potassium Level 3.6, Chloride Level 95L, Carbon Dioxide Level 36H, Anion Gap 12, Blood Urea Nitrogen 34H, Creatinine 1.25, Estimat Glomerular Filtration Rate 43, BUN/Creatinine Ratio 27, Glucose Level 90, Calcium Level 8.1L Microbiology 05/06/19 Blood Culture - Preliminary, Resulted No growth 05/06/19 MRSA Screen - Final, Complete MRSA not isolated 05/07/19 Lice/Scabies Examination - Final, Complete Home Meds Active Reported Sudafed PE (Phenylephrine HCl) 10 Mg Tablet 10 Mg PO Q4H PRN Morphine Sulfate ER (Morphine Sulfate) 30 Mg Tablet.er 30 Mg PO BID Albuterol Sulfate 2.5 Mg/3 Ml Vial.neb 2.5 Mg NEB Q4H PRN Lumigan (Bimatoprost) 2.5 Ml Drops 1 Drop OU HS Oxycodon-Acetaminophen 7.5-325 (Oxycodone HCl/Acetaminophen) 1 Each Tablet 1 Tab PO QID PRN Levothyroxine Sodium 175 Mcg Tablet 175 Mcg PO DAILY Metformin HCl 500 Mg Tablet 500 Mg PO BID Metoprolol Tartrate 25 Mg Tablet 25 Mg PO BID Atorvastatin Calcium 80 Mg Tablet 80 Mg PO HS Aspirin EC (Aspirin) 81 Mg Tablet.dr 81 Mg PO DAILY Proair Hfa (Albuterol Sulfate) 1 Puff Puff 2 Puff INH Q6H PRN Isosorbide Mononitrate ER (Isosorbide Mononitrate) 30 Mg Tab.er.24h 30 Mg PO DAILY Assessment/Pt Instructions Dr. De Leon in [address] Mckeon in one week Discharge Planning: <30 minutes discharge planning Discharge Instructions Discharge Diet: Low Sodium Diet, Cardiac Diet Activity as Tolerated: Yes Discharge Physical Examination Vital Signs Vital Signs Date Time Temp Pulse Resp B/P (MAP) Pulse Ox O2 Delivery O2 Flow Rate FiO2 05/11/19 10:15 91 Nasal Cannula 4.00 05/11/19 09:50 36.2 05/11/19 08:00 70 20 146/79 (101) 05/08/19 08:00 30 General Appearance: No Apparent Distress, WD/WN Respiratory: Lungs Clear Cardiovascular: Regular Rate, Rhythm Neurologic/Psychiatric: Alert, Oriented x3, No Motor/Sensory Deficits, Normal Mood/Affect Allergies: Coded Allergies: ceftriaxone (Verified Allergy, Unknown, pt has received Zosyn w/o issue, 05/09/19) ibuprofen (Verified Allergy, Unknown, PT TAKES ASA AT HOME, 08/02/17) PER MED REC diazepam (Verified Adverse Reaction, Severe, 12/04/18) Discharge Summary Date of Admission May 06, 2019 at 15:00 Date of Discharge Admission Diagnosis Assessment: Respiratory failure maintained on biPAP Obesity hypoventilation syndrome Leukocytosis Morbid obesity Volume overload Plan: BiPAP O2 Nebs Monitor closely Discharge Diagnosis Assessment: Severe sepsis Acute on chronic respiratory failure CO2 retention Morbid obesity Obesity hypoventilation syndrome Pneumonia Exacerbation of COPD PAF? Plan: Physical therapy BiPAP mask replacement per DME Monitor closely Obesity precludes anything but a poor prognosis long-term DC Tuesday? Cardiology appreciated (1) Severe sepsis (2) Chronic respiratory failure with hypoxia and hypercapnia Status: Acute (3) Mild renal insufficiency Status: Resolved (4) Obesity hypoventilation syndrome Status: Chronic (5) CAD (coronary artery disease) Status: Chronic (6) Anxiety Status: Chronic (7) COPD (chronic obstructive pulmonary disease) Status: Acute Qualifiers: Qualified Codes: J44.1 - Chronic obstructive pulmonary disease with (acute) exacerbation Clinical Quality Measures DVT/VTE Risk/Contraindication: Risk Factor Score Per Nursin RFS Level Per Nursing on Admit: 4+=Very High KASSIDY IRELAND DO May 11, 2019 11:50 POS
[2019-05-11 12:00] VITALS: BP 107/55
[2019-05-11 15:55] VITALS: BP 107/55
== END 2019-05-11 15:00 | disposition home or self-care (01) | DRG 871 ==
LOC: EDUNIT# 13:26 → ER 13:27 → ICU 15:00 → 4TH 05-08 11:02
PROVIDERS: ADMIT Internal Medicine; ATTEND Internal Medicine
PROC: 5A1935Z Respiratory Ventilation, Less than 24 Consecutive Hours (ICD-10-PCS; principal; 2019-05-06)
DX: A41.9 Sepsis, unspecified organism (principal); J96.22 Acute and chronic respiratory failure with hypercapnia; J18.9 Pneumonia, unspecified organism; J96.21 Acute and chronic respiratory failure with hypoxia; J44.1 Chronic obstructive pulmonary disease with (acute) exacerbation; J44.0 Chronic obstructive pulmonary disease with (acute) lower respiratory infection; E66.2 Morbid (severe) obesity with alveolar hypoventilation; Z68.43 Body mass index [BMI] 50.0-59.9, adult; F11.20 Opioid dependence, uncomplicated; I25.10 Atherosclerotic heart disease of native coronary artery without angina pectoris; I11.0 Hypertensive heart disease with heart failure; I50.9 Heart failure, unspecified; I25.2 Old myocardial infarction; I48.91 Unspecified atrial fibrillation; E11.9 Type 2 diabetes mellitus without complications; N28.9 Disorder of kidney and ureter, unspecified; F41.9 Anxiety disorder, unspecified; E78.00 Pure hypercholesterolemia, unspecified; E03.9 Hypothyroidism, unspecified; H40.9 Unspecified glaucoma; D64.9 Anemia, unspecified; G89.29 Other chronic pain; M54.9 Dorsalgia, unspecified; M19.91 Primary osteoarthritis, unspecified site; Z99.81 Dependence on supplemental oxygen; Z95.5 Presence of coronary angioplasty implant and graft; Z85.038 Personal history of other malignant neoplasm of large intestine; Z85.828 Personal history of other malignant neoplasm of skin; R65.20 Severe sepsis without septic shock; Z86.718 Personal history of other venous thrombosis and embolism
CPT/HCPCS: 36415; 36600; 71045; 80048; 80053; 81000; 82805; 83605; 83735; 83880; 84100; 85007; 85025; 85027; 87040; 87081; 87220; 87804; 93005; 94640; 94660; 94760; 96361; 96365; 96375

== ENCOUNTER → 2019-08-15 | Outpatient (CLI) | payer MEDICAID ==
[~2019-08-15] MED LIST changes: +ALBU2.5V4 NEB; +AMLO10TA7 PO; +AMLO5TAB9 PO; +AMOX1TAB12 PO; +BUDE0.5A INH; +FLUT1DIS27 IH; +FURO40TA4 PO; -HYDR-3812 PO; +HYDR25TA4 PO; -MAGN400T6 PO; +MAGN400T8 PO; -METO-387 PO; +METO50TA7 PO; +MORP-69 PO; +MORP30CA16 PO; +OMEP40CA27 PO; +OXYM-12 NS; +PHEN-832 PO; +POTA10TA36 PO; +POTA10TA6 PO; +PRED10TA22 PO; +RT-ALBUTEROL SULF 2.5 MG/3 ML PRE-MIX VIAL INH ONE
== END ==
LOC: RT 12:11
PROVIDERS: ATTEND Internal Medicine Critical Care Medicine
DX: J44.9 Chronic obstructive pulmonary disease, unspecified (principal); J96.10 Chronic respiratory failure, unspecified whether with hypoxia or hypercapnia; E66.2 Morbid (severe) obesity with alveolar hypoventilation
CPT/HCPCS: 94060; 94726; 94729

== ENCOUNTER → 2019-08-29 | Outpatient (CLI) | payer MEDICAID ==
[~2019-08-29] MED LIST changes: -RT-ALBUTEROL SULF 2.5 MG/3 ML PRE-MIX VIAL INH ONE
--- NOTE | 2019-08-29 13:00 | Diagnostic Imaging Report ---
INDICATION: Severe COPD and chronic respiratory failure. TIME OF EXAMINATION: 12:46 PM. COMPARISON: 07/20/2019. FINDINGS: The heart remains enlarged. The congestive changes continue to improve. No congestive failure is seen. There is no effusion or pneumothorax identified. IMPRESSION: Resolution of congestive changes when compared with the prior exam. No acute feature is detected. Dictated by: Dictated on workstation # [id number]
== END ==
LOC: RAD 12:12
PROVIDERS: ATTEND Internal Medicine Critical Care Medicine
DX: J44.9 Chronic obstructive pulmonary disease, unspecified (principal); J96.10 Chronic respiratory failure, unspecified whether with hypoxia or hypercapnia; R06.89 Other abnormalities of breathing; R09.02 Hypoxemia; E66.2 Morbid (severe) obesity with alveolar hypoventilation
CPT/HCPCS: 36600; 71046

== ENCOUNTER → 2020-01-30 | Outpatient (CLI) | payer MEDICAID ==
[2020-02-01 12:55] LABS: POTASSIUM 4.1 MMOL/L (3.6-5.0)
[2020-02-01 12:56] LABS: ABG BASE EXCESS 8.8 MMOL/L (-2.5-2.5); ABG OXYGEN SATURATION 97 % (94-100); ABG PCO2 47 MMHG (35-45); ABG PH 7.46 (7.37-7.43); ABG PO2 82 MMHG (79-93); ABG TCO2 34.6 MMOL/L (21.0-31.0); CALCIUM 8.5 MG/DL (8.5-10.1); CREATININE SERUM 1.44 MG/DL (0.60-1.30); MAGNESIUM 1.7 MG/DL (1.6-2.4)
[2020-02-01 12:57] LABS: ALLENS TEST POSITIVE; PATIENT TEMP 36.3; VENTILATOR NO
== END ==
LOC: LAB 12:03
PROVIDERS: ATTEND Internal Medicine Critical Care Medicine
DX: J44.9 Chronic obstructive pulmonary disease, unspecified (principal); J96.10 Chronic respiratory failure, unspecified whether with hypoxia or hypercapnia
CPT/HCPCS: 36415; 80048; 82805; 83735

== ENCOUNTER 2020-08-09 22:02 | Emergency (ER) | payer MEDICAID ==
[~2020-08-09 22:02] MED LIST changes: +AMLO-250 PO; +AMLO-251 PO; -AMLO10TA7 PO; -AMLO5TAB9 PO; +ASPI-1238 PO; -ASPI-983 PO; +ISOS30TA82 PO; -OXYC-465 PO; -OXYC-471 PO; +OXYC-556 PO; +OXYC1TAB11 PO
[2020-08-09 22:28] LABS: BASOPHILS % (AUTO) 0 % (0-10); EOSINOPHILS # (AUTO) 0.1 10^3/uL (0.0-0.3); EOSINOPHILS % (AUTO) 1 % (0-10); HEMATOCRIT 33 % (35-52); LYMPHOCYTES # (AUTO) 2.1 10^3/uL (1.0-4.0); LYMPHOCYTES % (AUTO) 18 % (12-44); MEAN CORPUSCULAR HEMOGLOBIN 28 pg (25-34); MEAN CORPUSCULAR HGB CONC 31 g/dL (32-36); MEAN CORPUSCULAR VOLUME 90 fL (80-99); MEAN PLATELET VOLUME 10.1 fL (9.0-12.2); MONOCYTES # (AUTO) 1.2 10^3/uL (0.0-1.0); MONOCYTES % (AUTO) 10 % (0-12); NEUTROPHILS # (AUTO) 8.1 10^3/uL (1.8-7.8); NEUTROPHILS % (AUTO) 70 % (42-75); PLATELET COUNT 292 10^3/uL (130-400); WHITE BLOOD COUNT 11.6 10^3/uL (4.3-11.0)
[2020-08-09 22:33] LABS: BILIRUBIN,URINE NEGATIVE (NEGATIVE); CLARITY,URINE SL CLOUDY; COLOR,URINE YELLOW; GLUCOSE, URINE (UA) NEGATIVE (NEGATIVE); KETONES,URINE NEGATIVE (NEGATIVE); LEUKOCYTE ESTERASE ,URINE NEGATIVE (NEGATIVE); NITRITE,URINE NEGATIVE (NEGATIVE); PH,URINE 5.5 (5-9); PROTEIN,URINE NEGATIVE (NEGATIVE)
[2020-08-09 22:33] LABS: ALBUMIN 3.5 GM/DL (3.2-4.5); POTASSIUM 3.3 MMOL/L (3.6-5.0)
--- NOTE | 2020-08-09 22:33 | ED Lower Extremity ---
General Chief Complaint: Lower Extremity Stated Complaint: L LEG PAIN/SWELLING Nursing Triage Note: PT PRESENTS [facility]IA [facility] C[facility] FROM HOME WITH C/O L KNEE SWELLING ET PAIN X3 DAYS. [facility] ACESSED 20G IV TO L HAND ET REPORT GLUCOSE OF 147. REPORTS DECREASE IN ABILITY TO TRANSFER FROM HOME HOSPITAL BED TO PERSONAL W/C. DENIES INJURY. A&OX4. Nursing Sepsis Screen: No Definite Risk Source: patient, old records History of Present Illness Date Seen by Provider: Aug 09, 2020 Time Seen by Provider: 22:20 Initial Comments PT ARRIVES VIA EMS FROM HOME C/O "LEFT LEG PAIN AND SWELLING" FOR THE LAST 3 DAYS STATES IT'S MAINLY JUST IN HER LEFT KNEE , THEN LATER STATES THAT HER LEFT ANKLE HURTS A LITTLE TOO AND IS A LITTLE SWOLLEN AND "ARE MORE SWOLLEN THAN NORMAL"--ALWAYS HAS SOME SWELLING AND ALWAYS HAS PAIN NO KNOWN INJURY PT IS ESSENTIALLY NON-MOBILE AND TRANSFERS FROM HER HOSPITAL BED TO WHEELCHAIR. PT WITH CHRONIC PAIN, AND TOOK MORPHINE 30 MG THIS AM, AND TOOK PERCOCET 10/325 AROUND 1600 NO PARESTHESIAS OR MOTOR DEFICITS NO FEVER/SWEATS/CHILLS NO WOUNDS TO LEG OR FOOT. PT WITH A MULTITUDE OF VISITS FOR VARIOUS COMPLAINTS PCP: DR. HERNANDEZ Allergies and Home Medications Allergies Coded Allergies: ceftriaxone (Verified Allergy, Unknown, pt has received Zosyn w/o issue, 05/09/19) ibuprofen (Verified Allergy, Unknown, PT TAKES ASA AT HOME, 08/02/17) PER MED REC diazepam (Verified Adverse Reaction, Severe, 12/04/18) Home Medications Albuterol Sulfate 1 Puff Puff, 2 PUFF INH Q6H PRN for SHORTNESS OF BREATH, (Reported) Albuterol Sulfate 2.5 Mg/3 Ml Vial.neb, 2.5 MG NEB BID PRN for SHORTNESS OF BREATH, (Reported) Amlodipine Besylate 10 Mg Tablet, 10 MG PO DAILY Prescribed by: KASSIDY IRELAND on 07/25/19 1141 Aspirin 81 Mg Tablet.dr, 81 MG PO DAILY, (Reported) Atorvastatin Calcium 80 Mg Tablet, 80 MG PO HS, (Reported) Bimatoprost 2.5 Ml Drops, 1 DROP OU HS, (Reported) Clindamycin HCl 300 Mg Capsule, 300 MG PO QID Prescribed by: MELINA CRONIN on 08/10/20 1404 Colchicine 0.6 Mg Tablet, 0.6 MG PO UD 1.2 MG AT ONSET OF GOUT FLARE, THEN MAY TAKE 0.6 MG BID Prescribed by: MELINA CRONIN on 08/10/201403 Cyclobenzaprine HCl 10 Mg Tablet, 10 MG PO TID PRN for MUSCLE SPASMS, (Reported) Fluticasone/Salmeterol 1 Each Blst.w.dev, 1 PUFF IH BID, (Reported) Furosemide 80 Mg Tablet, 80 MG PO DAILY, (Reported) Hydrochlorothiazide 25 Mg Tablet, 25 MG PO DAILY, (Reported) Isosorbide Mononitrate 30 Mg Tab.er.24h, 30 MG PO DAILY, (Reported) L. Acidophilus/Pectin, [place] 1 Each Capsule, 2 EACH PO QID Prescribed by: MELINA CRONIN on 08/10/201403 Levothyroxine Sodium 175 Mcg Tablet, 175 MCG PO DAILY, (Reported) Metoprolol Tartrate 25 Mg Tablet, 25 MG PO BID, (Reported) Morphine Sulfate 30 Mg Tablet.er, 30 MG PO BID, (Reported) Oxycodone HCl/Acetaminophen 1 Each Tablet, 1 TAB PO QID PRN for PAIN-MODERATE (5-7), (Reported) Oxymetazoline HCl 30 Ml [place], 0 NS BID PRN for CONGESTION, (Reported) Potassium Chloride 10 Meq Tab.er.prt, 10 MEQ PO BID, (Reported) Prednisone 20 Mg Tab, 40 MG PO DAILY Prescribed by: TA LÓPEZ on 08/10/20117 Prednisone 10 Mg Tab.ds.pk, 10 MG PO DAILY Take 6 tabs(60mg)daily,decrease by 1 tab(10MG)daily. Prescribed by: MELINA CRONIN on 08/10/201403 Patient Home Medication List Home Medication List Reviewed: Yes Review of Systems Constitutional: no symptoms reported Respiratory: no symptoms reported Cardiovascular: no symptoms reported Musculoskeletal: see HPI Skin: no symptoms reported Psychiatric/Neurological: No Symptoms Reported Past Tdpymfc-Lcqcho-Ooaxuw Hx Past Med/Social Hx: Reviewed and Corrections made Patient Social History Alcohol Use: Denies Use Smoking Status: Never a Smoker 2nd Hand Smoke Exposure: No Recent Infectious Disease Expo: No Recent Hopitalizations: No Immunizations Up To Date Tetanus Booster (TDap): Unknown Date of Pneumonia Vaccine: Mar 13, 2013 Date of Influenza Vaccine: Apr 23, 2019 Seasonal Allergies Seasonal Allergies: No Past Medical History Surgeries: Yes (COLON POLYP REMOVAL, MULTIPLE HERNIA REPAIRS, D&C) Abdominal, Adenoidectomy, Bowel Surgery, Coronary Stent, Eye Surgery, Gallbladder, Tonsillectomy, Tubal Ligation Respiratory: Yes (CHRONIC DYSPNEA--USES O2 AT HOME, ESPECIALLY AT NIGHT) Sleep Apnea, COPD Cardiac: Yes (TACHYCARDIA, STENTS X 1, CHF) Atrial Fibrillation, Chronic Edema/Swelling, Coronary Artery Disease, Deep Vein Thrombosis, Heart Attack, High Cholesterol, Hypertension Neurological: No 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 Disorders: No Female 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 Disorders: Denies 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: Tubal 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, Menopausal Sexually Transmitted Disease: No HIV/AIDS: No Genitourinary: Yes UTI-Chronic Gastrointestinal: Yes Abdominal Hernia, Diverticulosis, Polyps Musculoskeletal: Yes (CHRONIC GENERALIZED PAIN--NARCOTIC-DEPENDENT) Degenerate Disk Disease, Arthritis, Chronic Back Pain Endocrine: Yes (MORBID OBESITY) Hypothyroidsim, Diabetes, Non-Insulin dep HEENT: Yes Cataract, Glaucoma Loss of Vision: Denies Hearing Impairment: Denies Cancer: Yes (SQUAMOUS CELL SKIN CANCER RIGHT CHEEK 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) Skin, Colon Did You Recieve Any Treatments: Yes What Type of Treatment Did You: Surgical Intervention Psychosocial: No Integumentary: Yes (CELLULITIS; SKIN CANCER; BEDBUGS) Eczema Blood Disorders: Yes (CHRONIC ANEMIA) Adverse Reaction/Blood Tranf: No (HAS HAD BLOOD WITH NO REACTION) Family Medical History Cancer 03 MOTHER, Onset:40's - 50 Family history: Cardiovascular disease 03 FATHER, Onset:40's - 50 03 MOTHER, Onset:30's - 40 Myocardial infarction 03 MOTHER, Onset:30's - 40 Heart Disease, Cancer, CAD Under 55 Years Old Physical Exam Vital Signs Vital Signs - First Documented 08/09/20 22:05 Temp 37.4 Pulse 63 Resp 20 B/P (MAP) 149/72 (97) Pulse Ox 97 O2 Delivery Nasal Cannula O2 Flow Rate 3.00 Capillary Refill : Less Than 3 Seconds Height, Weight, BMI Height: 5'2.00" Weight: 273lbs. 0.0oz. [id number]; 50.81 BMI Method:Stated General Appearance: WD/WN, obese (MORBIDLY OBESE. ) Cardiovascular: regular rate, rhythm Respiratory: normal breath sounds Knees: left knee other (LEFT KNEE WITH MODERATE SWELLING, VERY WARM, MILDLY ERYTHEMATOUS, WITH EFFUSION. EXTREMELY TENDER TO PALPATION) Procedures/Interventions Suture Size: 4-0 Progress LEFT KNEE JOINT ASPIRATION PERFORMED AREA CLEANSED WITH CHLORHEXIDINE AND BETADINE INJECTED WITH 2% LIDOCAINE WITH EPINEPHRINE ASPIRATION ATTEMPTS X 2 WITH 18 G NEEDLE--SECOND ATTEMPT WITH ASPIRATION OF APPROXIMATELY 15 ML CLOUDY YELLOW FLUID--TINGED WITH BLOOD FROM FIRST ATTEMPT. Progress/Results/Core Measures Results/Orders Lab Results Laboratory Tests Test 08/09/20 11:52 08/09/20 22:12 08/09/20 22:25 08/09/20 22:30 Range/Units Body Fluid Source SYNOVIAL Body Fluid Color RED Body Fluid Appearance SLT CLDY Body Fluid WBC 616 /uL Body Fluid RBC 8150 /uL Body Fluid Polynuclear WBCs 90 % Body Fluid Mononuclear WBCs 1 % Body Fluid Lymphocytes 9 % Body Fluid Other Cells 0 % Body Fluid Crystals URIC ACID White Blood Count 11.6 H 4.3-11.0 10^3/uL Red Blood Count 3.63 L 3.80-5.11 10^6/uL Hemoglobin 10.0 L 11.5-16.0 g/dL Hematocrit 33 L 35-52 % Mean Corpuscular Volume 90 80-99 fL Mean Corpuscular Hemoglobin 28 25-34 pg Mean Corpuscular Hemoglobin Concent 31 L 32-36 g/dL Red Cell Distribution Width 15.6 H 10.0-14.5 % Platelet Count 292 130-400 10^3/uL Mean Platelet Volume 10.1 9.0-12.2 fL Immature Granulocyte % (Auto) 1 % Neutrophils (%) (Auto) 70 42-75 % Lymphocytes (%) (Auto) 18 12-44 % Monocytes (%) (Auto) 10 0-12 % Eosinophils (%) (Auto) 1 0-10 % Basophils (%) (Auto) 0 0-10 % Neutrophils # (Auto) 8.1 H 1.8-7.8 10^3/uL Lymphocytes # (Auto) 2.1 1.0-4.0 10^3/uL Monocytes # (Auto) 1.2 H 0.0-1.0 10^3/uL Eosinophils # (Auto) 0.1 0.0-0.3 10^3/uL Basophils # (Auto) 0.0 0.0-0.1 10^3/uL Immature Granulocyte # (Auto) 0.1 0.0-0.1 10^3/uL Prothrombin Time 15.1 H 12.2-14.7 SEC INR Comment 1.1 0.8-1.4 Activated Partial Thromboplast Time 29 24-35 SEC D-Dimer 1.74 H 0.00-0.49 UG/ML Sodium Level 138 135-145 MMOL/L Potassium Level 3.3 L 3.6-5.0 MMOL/L Chloride Level 98 98-107 MMOL/L Carbon Dioxide Level 26 21-32 MMOL/L Anion Gap 14 5-14 MMOL/L Blood Urea Nitrogen 41 H 7-18 MG/DL Creatinine 1.60 H 0.60-1.30 MG/DL Estimat Glomerular Filtration Rate 32 BUN/Creatinine Ratio 26 Glucose Level 120 H 70-105 MG/DL Uric Acid 13.8 *H 2.6-7.2 MG/DL Calcium Level 9.3 8.5-10.1 MG/DL Corrected Calcium 9.7 8.5-10.1 MG/DL Total Bilirubin 1.4 H 0.1-1.0 MG/DL Aspartate Amino Transf (AST/SGOT) 14 5-34 U/L Alanine Aminotransferase (ALT/SGPT) 14 0-55 U/L Alkaline Phosphatase 120 40-136 U/L C-Reactive Protein High Sensitivity 18.59 H 0.00-0.50 MG/DL Total Protein 7.9 6.4-8.2 GM/DL Albumin 3.5 3.2-4.5 GM/DL Urine Color YELLOW Urine Clarity SL CLOUDY Urine pH 5.5 5-9 Urine Specific [place] 1.010 L 1.016-1.022 Urine Protein NEGATIVE NEGATIVE Urine Glucose (UA) NEGATIVE NEGATIVE Urine Ketones NEGATIVE NEGATIVE Urine Nitrite NEGATIVE NEGATIVE Urine Bilirubin NEGATIVE NEGATIVE Urine Urobilinogen 0.2 < = 1.0 MG/DL Urine Leukocyte Esterase NEGATIVE NEGATIVE Urine RBC (Auto) NEGATIVE NEGATIVE Urine RBC NONE /HPF Urine WBC NONE /HPF Urine Squamous Epithelial Cells RARE /HPF Urine Crystals NONE /LPF Urine Bacteria NEGATIVE /HPF Urine Casts NONE /LPF Urine Mucus NEGATIVE /LPF Urine Culture Indicated NO B-Type Natriuretic Peptide 626.5 H <100.0 PG/ML My Orders Orders - TA LÓPZE DO Ed Iv/Invasive Line Start (08/09/20 22:22) BNP (08/09/20 22:22) Cbc With Automated Diff (08/09/20 22:22) Comprehensive Metabolic Panel (08/09/20 22:22) Hs C Reactive Protein (08/09/20 22:22) Protime With Inr (08/09/20 22:22) Partial Thromboplastin Time (08/09/20 22:22) Blood Culture (08/09/20 22:22) Erythrocyte Sedimentation Rate (08/09/20 22:22) Straight Cath For Spec.-Adult (08/09/20 22:26) Tibia/Fibula, Left, 2 Views (08/09/20 22:26) Knee, Left, 3 Views (08/09/20 22:26) Ankle, Left, 3 Views (08/09/20 22:26) Ua Culture If Indicated (08/09/20 22:) Uric Acid (08/09/20 22:12) Fibrin Degradation Products (08/09/20 22:12) Methylprednisolone Sod Succ (Solu-Medrol (08/09/20 23:30) Colchicine Tablet (Colcrys Tablet) (08/09/20 23:30) Clindamycin 600 Mg/50 Ml Ivpb (Cleocin P (08/09/20 23:30) [place] Bandage (08/09/20 23:27) Lidocaine/Epi 2% 1:100,000 (Xylocaine/Ep (08/09/20 23:45) Lidocaine/Epi 2% 1:100,000 (Xylocaine/Ep (08/09/20 23:34) [place] Bandage (08/09/20 23:55) Body Fluid Cell Count (08/09/20 23:55) Crystals,Body Fluid (08/09/20 23:55) Colchicine Tablet (Colcrys Tablet) (08/10/20 00:01) Fentanyl Injection (Sublimaze Injection (08/10/20 01:15) Medications Given in ED Vital Signs/I&O 08/09/20 08/10/20 22:05 01:50 Temp 37.4 36.9 Pulse 63 63 Resp 20 20 B/P (MAP) 149/72 (97) 149/72 (97) Pulse Ox 97 97 O2 Delivery Nasal Cannula O2 Flow Rate 3.00 3.00 Blood Pressure Mean: 97 Progress Progress Note : Progress Note PT DENIES HISTORY OF GOUT, BUT HAS ELEVATED URIC ACID LEVEL ON LAB DRAW TODAY AND JOINT ASPIRATE WITH + URIC ACID CRYSTALS WILL TREAT FOR GOUT WILL ALSO EMPIRICALLY TREAT WITH ANTIBIOTICS AT THIS TIME Diagnostic Imaging Comments XRAYS LEFT KNEE, LEFT TIB-FIB, LEFT ANKLE--NO FRACTURE OR DISLOCATION, ARTHRITIC CHANGES, ASVD--PENDING RADIOLOGIST REVIEW Reviewed: Reviewed by Me Departure Impression Primary Impression: Acute gout of left knee Disposition: HOME, SELF-CARE Condition: Stable Departure-Patient Inst. Referrals: JAN HERNANDEZ MD (PCP/Family) Primary Care Physician Patient Instructions: Gout (DC) Add. Discharge Instructions: DAVIE WRAP NEEDED FOR PAIN AND SWELLING ICE TO AREA AT 20 MINUTE INTERVALS INCREASE YOUR WATER INTAKE CONTINUE YOUR CURRENT MEDICATIONS PRESCRIBED, INCLUDING TAKING YOUR PAIN MEDICATION PRESCRIBED FOLLOW UP WITH YOUR DR IN 2-3 DAYS FOR FURTHER CARE All discharge instructions reviewed with patient and/or family. Voiced understanding. Scripts L. Acidophilus/Pectin, [place] (Acidophilus Capsule) 1 Each Capsule 2 EACH PO QID, #40 CAP Prov: MELINA CRONIN 08/10/20 Clindamycin HCl (Clindamycin HCl) 300 Mg Capsule 300 MG PO QID for 10 Days, #40 CAP Prov: MELINA CRONIN 08/10/20 Colchicine (Colchicine) 0.6 Mg Tablet 0.6 MG PO UD, #6 TAB 1.2 MG AT ONSET OF GOUT FLARE, THEN MAY TAKE 0.6 MG BID Prov: MELINA CRONIN 08/10/20 Prednisone (Prednisone) 10 Mg Tab.ds.pk 10 MG PO DAILY, #21 EA Take 6 tabs(60mg)daily,decrease by 1 tab(10MG)daily. Prov: MELINA CRONIN 08/10/20 Prednisone (Prednisone) 20 Mg Tab 40 MG PO DAILY, #6 TAB 0 Refills Prov: TA LÓPEZ DO 08/10/20 TA LÓPEZ DO Aug 09, 2020 22:33
[2020-08-09 22:34] LABS: CALCIUM 9.3 MG/DL (8.5-10.1); INR 1.1 (0.8-1.4); PROTHROMBIN TIME PATIENT 15.1 SEC (12.2-14.7)
[2020-08-09 22:35] LABS: TOTAL PROTEIN 7.9 GM/DL (6.4-8.2)
[2020-08-09 22:37] LABS: BILIRUBIN,TOTAL 1.4 MG/DL (0.1-1.0)
[2020-08-09 22:39] LABS: CREATININE SERUM 1.6 MG/DL (0.60-1.30)
[2020-08-09 22:41] LABS: BACTERIA,URINE NEGATIVE /HPF; SQUAMOUS EPITHELIAL CELL,UR RARE /HPF
[2020-08-09 22:50] LABS: URIC ACID 13.8 MG/DL (2.6-7.2)
[2020-08-09 22:53] LABS: FIBRIN DEGRADATION PRODUCTS 1.74 UG/ML (0.00-0.49)
[2020-08-09] MEDS ORDERED: methylPREDNISolone 125 MG (Solu-MEDROL) VIAL IVP ONE (23:30)
[2020-08-09] MEDS ORDERED: CLINDAMYCIN 600 MG/50 ML IVPB 50 ML IV ONE (23:30)
[2020-08-09] MEDS ORDERED: COLCHICINE 0.6 MG (COLCRYS) TABLET PO ONE (23:30)
[2020-08-09] MEDS ORDERED: LIDOCAINE/EPI 2% 1:100,00 (XYLOCAINE) 20 ML VIAL ONE (23:34)
[2020-08-09] MEDS ORDERED: LIDOCAINE/EPI 2% 1:100,00 (XYLOCAINE) 20 ML VIAL INJ ONE (23:45)
[2020-08-10] MEDS ORDERED: COLCHICINE 0.6 MG (COLCRYS) TABLET PO ONE (00:01)
[2020-08-10 00:50] LABS: BODY FLUID SOURCE SYNOVIAL
[2020-08-10 00:51] LABS: BODY FLUID APPEARENCE SLT CLDY; BODY FLUID COLOR RED
[2020-08-10 00:52] LABS: BF OTHER CELLS 0 %; BODY FLUID RBC COUNT 8150 /uL; BODY FLUID WBC TOTAL COUNT 616 /uL; LYMPHOCYTES,BODY FLUID 9 %
[2020-08-10] MEDS ORDERED: fentaNYL INJECTION 100 MCG/2 ML AMP IVP ONE (01:15)
[2020-08-10] MEDS ORDERED: L. A1CAP11 PO ×2 (01:18→14:04)
[2020-08-10] MEDS ORDERED: PRD20T PO (01:18)
[2020-08-10] MEDS ORDERED: CLIN300C12 PO ×2 (01:18→14:04)
[2020-08-10] MEDS ORDERED: COLC0.6T59 PO ×2 (01:18→14:04)
[2020-08-10 01:50] VITALS: BP 149/72
--- NOTE | 2020-08-10 06:59 | Diagnostic Imaging Report ---
Indication: Left ankle pain and swelling. Comparison: None. Discussion: Three views left ankle were obtained. There is diffuse soft tissue swelling noted. Well-corticated ossicle along the medial malleolus is consistent with an old injury. On the frontal view there is mild cortical buckling which could be due to an old injury though an acute nondisplaced fracture cannot be excluded. Ankle mortise is symmetric. No foreign body. Impression: 1. There appear to be changes of an old injury along the medial malleolus. However on the frontal view there is mild cortical buckling and an acute nondisplaced fracture cannot be excluded by plain film. 2. Diffuse soft tissue swelling. Dictated by: Dictated on workstation # [id number]
--- NOTE | 2020-08-10 07:05 | Diagnostic Imaging Report ---
Indication: Left knee pain and swelling. Comparison: None. Discussion: Four views of the left knee were obtained. Advanced tricompartmental degenerative disease with [id number] contact. Effusion is present. No displaced fracture or dislocation. Soft tissue swelling. Impression: 1. Diffuse left knee soft tissue swelling with advanced degenerative disease and effusion. No displaced fracture. Dictated by: Dictated on workstation # [id number]
--- NOTE | 2020-08-10 07:16 | Diagnostic Imaging Report ---
Indication: Left lower leg pain and swelling. Comparison: None. Discussion: Four views of the left tibia and fibula were obtained. Diffuse soft tissue swelling noted. Vascular calcifications are present. No displaced fracture or dislocation. Advanced degenerative disease noted within the left knee. Impression: 1. Left lower leg soft tissue swelling. No displaced fracture. Dictated by: Dictated on workstation # [id number]
[2020-08-10] MEDS ORDERED: PRED10TA22 PO (14:04)
[2020-08-11 15:36] LABS: ERYTHROCYTE SEDIMENTATION RATE 6 MM/HR (0-30)
== END 2020-08-10 01:50 | disposition home or self-care (01) ==
LOC: EDUNIT# 22:02 → ER 22:03
DX: M10.9 Gout, unspecified (principal); J44.9 Chronic obstructive pulmonary disease, unspecified; G47.30 Sleep apnea, unspecified; I11.0 Hypertensive heart disease with heart failure; I50.9 Heart failure, unspecified; I25.10 Atherosclerotic heart disease of native coronary artery without angina pectoris; E78.00 Pure hypercholesterolemia, unspecified; I48.91 Unspecified atrial fibrillation; E03.9 Hypothyroidism, unspecified; G89.29 Other chronic pain; M54.9 Dorsalgia, unspecified; E11.9 Type 2 diabetes mellitus without complications; E66.01 Morbid (severe) obesity due to excess calories; Z68.43 Body mass index [BMI] 50.0-59.9, adult; Z88.1 Allergy status to other antibiotic agents; Z88.6 Allergy status to analgesic agent; Z88.8 Allergy status to other drugs, medicaments and biological substances; Z95.5 Presence of coronary angioplasty implant and graft; Z99.81 Dependence on supplemental oxygen; Z86.718 Personal history of other venous thrombosis and embolism; Z85.828 Personal history of other malignant neoplasm of skin; Z85.038 Personal history of other malignant neoplasm of large intestine; Z79.82 Long term (current) use of aspirin; Z79.51 Long term (current) use of inhaled steroids; Z79.890 Hormone replacement therapy; Z79.891 Long term (current) 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
CPT/HCPCS: 36415; 51701; 73562; 73590; 73610; 80053; 81000; 83880; 84550; 85025; 85379; 85610; 85652; 85730; 86141; 89051; 89060

== ENCOUNTER 2020-09-03 12:03 | Outpatient (RCR) | payer MEDICAID ==
[2020-09-02 12:20] LABS: BASOPHILS % (AUTO) 0 % (0-10); EOSINOPHILS # (AUTO) 0.2 10^3/uL (0.0-0.3); EOSINOPHILS % (AUTO) 3 % (0-10); HEMATOCRIT 34 % (35-52); HEMOGLOBIN 11.1 g/dL (11.5-16.0); LYMPHOCYTES # (AUTO) 1.3 10^3/uL (1.0-4.0); LYMPHOCYTES % (AUTO) 15 % (12-44); MEAN CORPUSCULAR HEMOGLOBIN 29 pg (25-34); MEAN CORPUSCULAR HGB CONC 33 g/dL (32-36); MEAN CORPUSCULAR VOLUME 88 fL (80-99); MEAN PLATELET VOLUME 9.5 fL (9.0-12.2); MONOCYTES # (AUTO) 0.6 10^3/uL (0.0-1.0); MONOCYTES % (AUTO) 7 % (0-12); NEUTROPHILS # (AUTO) 6.5 10^3/uL (1.8-7.8); NEUTROPHILS % (AUTO) 75 % (42-75); PLATELET COUNT 168 10^3/uL (130-400); WHITE BLOOD COUNT 8.7 10^3/uL (4.3-11.0)
[2020-09-02 12:52] LABS: ALBUMIN 3.8 GM/DL (3.2-4.5); CALCIUM 9.7 MG/DL (8.5-10.1); CREATININE SERUM 1.16 MG/DL (0.60-1.30); PHOSPHORUS 3.2 MG/DL (2.3-4.7); POTASSIUM 3.2 MMOL/L (3.6-5.0)
[~2020-09-03 12:03] MED LIST changes: +CLIN300C12 PO; +COLC0.6T59 PO; +L. A1CAP11 PO; -OMEP40CA27 PO; +OMEP40CA6 PO; -OXYC-464 PO; +OXYC1TAB15 PO
[2020-09-03 12:09] LABS: BILIRUBIN,URINE NEGATIVE (NEGATIVE); CLARITY,URINE CLEAR; COLOR,URINE YELLOW; GLUCOSE, URINE (UA) NEGATIVE (NEGATIVE); KETONES,URINE NEGATIVE (NEGATIVE); LEUKOCYTE ESTERASE ,URINE 2+ (NEGATIVE); NITRITE,URINE POSITIVE (NEGATIVE); PH,URINE 5.5 (5-9); PROTEIN,URINE NEGATIVE (NEGATIVE)
[2020-09-03 12:39] LABS: BACTERIA,URINE MODERATE /HPF; SQUAMOUS EPITHELIAL CELL,UR 25-50 /HPF; WBC,URINE >100 /HPF
== END 2020-12-02 | disposition home or self-care (01) ==
LOC: LAB 12:03
PROVIDERS: ATTEND Internal Medicine Critical Care Medicine
DX: N18.9 Chronic kidney disease, unspecified (principal)
CPT/HCPCS: 36415; 80069; 81000; 82570; 84156; 85025; 87077; 87088; 87186

== ENCOUNTER → 2020-11-28 | Outpatient (CLI) | payer MEDICAID ==
[~2020-11-28] MED LIST changes: +OMEP40CA27 PO; -OMEP40CA6 PO; +OXYC-464 PO; -OXYC1TAB15 PO
--- NOTE | 2020-11-28 15:32 | Diagnostic Imaging Report ---
PROCEDURE: US Renal Bilateral. TECHNIQUE: Multiple real-time grayscale images were obtained over the kidneys in various projections bilaterally. INDICATION: Chronic kidney disease stage III. Right kidney measures 8.4 x 5.0 x 5.7 cm and left kidney measures 10.8 x 4.7 x 4.9 cm. Right kidney does show some cortical thinning but echogenicity appears normal. Left kidney is unremarkable. There are no calculi. No hydronephrosis is detected. The right ureteral jet was not visualized. Left ureteral jet was visualized. IMPRESSION: Small right kidney with mild cortical thinning. No hydronephrosis is detected. Dictated by: Dictated on workstation # [id number]
== END ==
LOC: RAD 13:45
PROVIDERS: ATTEND Internal Medicine Nephrology
DX: I12.9 Hypertensive chronic kidney disease with stage 1 through stage 4 chronic kidney disease, or unspecified chronic kidney disease (principal); N18.31 Chronic kidney disease, stage 3a; R00.1 Bradycardia, unspecified
CPT/HCPCS: 76770

== ENCOUNTER → 2021-01-02 | Outpatient (CLI) | payer MEDICAID ==
[~2021-01-02] MED LIST changes: -OMEP40CA27 PO; +OMEP40CA6 PO; -OXYC-464 PO; +OXYC1TAB15 PO; -SULF1TAB35 PO; +SULF1TAB38 PO
[2021-01-02 12:34] LABS: ABG BASE EXCESS 3.4 MMOL/L (-2.5-2.5); ABG OXYGEN SATURATION 96 % (94-100); ABG PCO2 42 MMHG (35-45); ABG PH 7.43 (7.37-7.43); ABG PO2 78 MMHG (79-93); ABG TCO2 28.9 MMOL/L (21.0-31.0)
[2021-01-02 12:36] LABS: ALLENS TEST YES-POS; INSPIRED O2 RA; PATIENT TEMP 36.4; VENTILATOR NO
== END ==
LOC: LAB 11:44
PROVIDERS: ATTEND Internal Medicine Critical Care Medicine
DX: R06.89 Other abnormalities of breathing (principal)
CPT/HCPCS: 36600; 82805

== ENCOUNTER → 2021-04-03 | Outpatient (CLI) | payer MEDICAID ==
[2021-04-03 13:31] LABS: ABG BASE EXCESS 3.2 MMOL/L (-2.5-2.5); ABG OXYGEN SATURATION 98 % (94-100); ABG PCO2 39 MMHG (35-45); ABG PH 7.45 (7.37-7.43); ABG PO2 85 MMHG (79-93); ABG TCO2 28.2 MMOL/L (21.0-31.0)
[2021-04-03 13:34] LABS: ALLENS TEST POSITIVE; VENTILATOR NO
[2021-04-03 13:35] LABS: PATIENT TEMP 33.9
== END ==
LOC: LAB 12:45
PROVIDERS: ATTEND Internal Medicine Critical Care Medicine
DX: J96.10 Chronic respiratory failure, unspecified whether with hypoxia or hypercapnia (principal)
CPT/HCPCS: 82805

== ENCOUNTER → 2021-05-13 | Outpatient (CLI) | payer MEDICAID ==
[~2021-05-13] MED LIST changes: +CLIN-144 PO; -CLIN300C12 PO; +CYCL10TA25 PO; -MAGN400T8 PO; +MGX400T PO; +POTA-160 PO; +POTA-179 PO; -POTA10TA36 PO; +POTA10TA37 PO; -POTA10TA6 PO; -POTA20TA15 PO
== END ==
LOC: CARD 14:00
PROVIDERS: ATTEND Physician Assistant
DX: I35.1 Nonrheumatic aortic (valve) insufficiency (principal); I10 Essential (primary) hypertension; I25.10 Atherosclerotic heart disease of native coronary artery without angina pectoris
CPT/HCPCS: 93306

== ENCOUNTER → 2021-05-20 | Outpatient (CLI) | payer MEDICAID ==
[~2021-05-20] MED LIST changes: +CATHETER FLUSH 10 ML SYR IV PRN; +REGADENOSON 0.4 MG/5 ML SYR (LEXISCAN) IV ONE
[2021-05-20 13:01] VITALS: BP 153/62
--- NOTE | 2021-05-20 16:01 | Cardiology Stress Test Report ---
Stress Test Report Date of Procedure/Referring: Date of Procedure: May 20, 2021 Lyndsay Christian Admitting Physician Aden Mckeon MD Indications: CAD Baseline Heart Rate: 49 Baseline Blood Pressure: Blood Pressure Systolic: 153 Blood Pressure Diastolic: 62 Baseline Vitals Vital Signs Date Time Temp Pulse Resp B/P (MAP) Pulse Ox O2 Delivery O2 Flow Rate FiO2 05/20/21 13:01 49 153/62 (92) Baseline EKG: Baseline EKG: NSR Summary After explaining the procedure to the patient, she signed a consent and then brought to the stress nuclear laboratory. Patient received 0.4 mg Lexiscan for stress test, ECG, heart rate and blood pressure were monitored continuously. Resting and stress dose of radio tracer were injected, imaging was acquired and reviewed in short axis, horizontal long axis and vertical long axis views. TID: 0.79 SSS: 1 SDS: 1 EF: 61 1. Patient tolerated Lexiscan well 2. Breast attenuation and extracardiac attenuation affecting the quality of the images there is decreased uptake involving the apex with subtle reversibility. Overall there is no significant ischemia or infarction on SPECT images 3. Normal left ventricular size, EF 79% ALLY MARINO MD May 20, 2021 16:01
== END ==
LOC: CARD 11:45
PROVIDERS: ATTEND Physician Assistant
DX: I25.10 Atherosclerotic heart disease of native coronary artery without angina pectoris (principal); I10 Essential (primary) hypertension
CPT/HCPCS: 78452; 93017

== ENCOUNTER → 2021-05-29 | Outpatient (CLI) | payer MEDICAID ==
[~2021-05-29] MED LIST changes: -CATHETER FLUSH 10 ML SYR IV PRN; -REGADENOSON 0.4 MG/5 ML SYR (LEXISCAN) IV ONE
[2021-05-29 09:27] LABS: BASOPHILS % (AUTO) 0 % (0-10); EOSINOPHILS # (AUTO) 0.4 10^3/uL (0.0-0.3); EOSINOPHILS % (AUTO) 4 % (0-10); HEMATOCRIT 38 % (35-52); LYMPHOCYTES # (AUTO) 2.6 10^3/uL (1.0-4.0); LYMPHOCYTES % (AUTO) 26 % (12-44); MEAN CORPUSCULAR HEMOGLOBIN 31 pg (25-34); MEAN CORPUSCULAR HGB CONC 32 g/dL (32-36); MEAN CORPUSCULAR VOLUME 97 fL (80-99); MONOCYTES # (AUTO) 0.7 10^3/uL (0.0-1.0); MONOCYTES % (AUTO) 7 % (0-12); NEUTROPHILS # (AUTO) 6.3 10^3/uL (1.8-7.8); NEUTROPHILS % (AUTO) 62 % (42-75); PLATELET COUNT 227 10^3/uL (130-400)
[2021-05-29 09:43] LABS: URINE CREATININE FOR RATIO 21 MG/DL (30-125); URINE PROTEIN FOR RATIO ONLY < 6 MG/DL (6-12)
[2021-05-29 09:45] LABS: ALBUMIN 3.8 GM/DL (3.2-4.5); CALCIUM 10.2 MG/DL (8.5-10.1); CREATININE SERUM 1.21 MG/DL (0.60-1.30); POTASSIUM 4.1 MMOL/L (3.6-5.0); URIC ACID 9.4 MG/DL (2.6-7.2)
== END ==
LOC: LAB 09:00
PROVIDERS: ATTEND Internal Medicine Nephrology
DX: I12.9 Hypertensive chronic kidney disease with stage 1 through stage 4 chronic kidney disease, or unspecified chronic kidney disease (principal); N18.31 Chronic kidney disease, stage 3a
CPT/HCPCS: 36415; 80069; 82306; 82570; 83970; 84156; 84550; 85025

== ENCOUNTER 2021-06-13 18:23 | Inpatient (IN) | payer MEDICAID ==
[~2021-06-13] VITALS: Ht 157.5 cm; Wt 74.6 kg
[2021-06-13] MEDS ORDERED: morphine INJ 10 MG/ML 1ML (SYR OR VIAL) ONE (18:36)
[2021-06-13] MEDS ORDERED: ASPIRIN 81 MG CHEW (CHILDREN'S ASA) ONE (18:43)
[2021-06-13 18:45] LABS: BASOPHILS # (AUTO) 0.1 10^3/uL (0.0-0.1); BASOPHILS % (AUTO) 0 % (0-10); EOSINOPHILS # (AUTO) 0.6 10^3/uL (0.0-0.3); EOSINOPHILS % (AUTO) 3 % (0-10); HEMATOCRIT 39 % (35-52); HEMOGLOBIN 12.3 g/dL (11.5-16.0); LYMPHOCYTES # (AUTO) 8.4 10^3/uL (1.0-4.0); LYMPHOCYTES % (AUTO) 46 % (12-44); MEAN CORPUSCULAR HEMOGLOBIN 31 pg (25-34); MEAN CORPUSCULAR HGB CONC 32 g/dL (32-36); MEAN CORPUSCULAR VOLUME 98 fL (80-99); MEAN PLATELET VOLUME 9.5 fL (9.0-12.2); MONOCYTES # (AUTO) 1.3 10^3/uL (0.0-1.0); MONOCYTES % (AUTO) 7 % (0-12); NEUTROPHILS # (AUTO) 7.8 10^3/uL (1.8-7.8); NEUTROPHILS % (AUTO) 43 % (42-75); PLATELET COUNT 286 10^3/uL (130-400); WHITE BLOOD COUNT 18.2 10^3/uL (4.3-11.0)
[2021-06-13] MEDS ORDERED: HEParin 1000 UNIT/ML (10ML VIAL) FOR BOLUS IV ONE (18:45)
[2021-06-13] MEDS ORDERED: HEParin DRIP 25000 UNIT/500ML 500 ML IV ONE (18:45)
[2021-06-13 18:52] LABS: ALBUMIN 3.8 GM/DL (3.2-4.5); POTASSIUM 3.4 MMOL/L (3.6-5.0)
[2021-06-13 18:53] LABS: CALCIUM 9.6 MG/DL (8.5-10.1)
[2021-06-13 18:55] LABS: TOTAL PROTEIN 7.4 GM/DL (6.4-8.2)
[2021-06-13 18:56] LABS: BILIRUBIN,TOTAL 0.4 MG/DL (0.1-1.0)
[2021-06-13 18:58] LABS: CREATININE SERUM 1.46 MG/DL (0.60-1.30); PROTHROMBIN TIME PATIENT 13.7 SEC (12.2-14.7)
[2021-06-13] MEDS ORDERED: MIDAZOLAM 5 MG/5 ML (VERSED) VIAL ONE (19:12)
[2021-06-13] MEDS ORDERED: HEParin 1000 UNIT/ML (10ML VIAL) FOR BOLUS ONE (19:12)
[2021-06-13] MEDS ORDERED: fentaNYL INJ 100 MCG/2 ML AMP ONE (19:12)
[2021-06-13] MEDS ORDERED: VERAPAMIL 5 MG/2 ML (CALAN) VIAL IV ONE (19:12)
[2021-06-13] MEDS ORDERED: NITRO DRIP 25000 MCG/D5W 0 ML IV ONE (19:13)
--- NOTE | 2021-06-13 19:19 | ED Chest Pain ---
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 PT REPORTS SHE WAS WALKING OUT OF THE [place]INO WHEN THE PAIN STARTED. Source: patient, old records Exam Limitations: no limitations History of Present Illness Date Seen by Provider: Jun 13, 2021 Time Seen by Provider: 18:30 Initial Comments This 66-year-old woman with known coronary artery disease presents to the emergency room with onset of severe central chest pain rated as "way above a 10" within minutes prior to arrival. She was [place] out of the [place] when the pain started. She took 1 baby aspirin earlier in the day. She has pain radiating down her right arm but denies any other acute symptoms. Review of chart notes a stress test showing no definitive ischemia earlier this month. Last heart cath was in June 2018. She does have stent placement. She does not take any anticoagulants. Allergies and Home Medications Allergies Coded Allergies: ceftriaxone (Verified Allergy, Unknown, pt has received Zosyn w/o issue, 05/09/19) ibuprofen (Verified Allergy, Unknown, PT TAKES ASA AT HOME, 08/02/17) PER MED REC diazepam (Verified Adverse Reaction, Severe, 12/04/18) Patient Home Medication List Home Medication List Reviewed: Yes Albuterol Sulfate (Proair Hfa) 1 Puff Puff, 2 PUFF INH Q6H PRN for SHORTNESS OF BREATH, (Reported) Entered as Reported by: CASSIE KHAN on 03/20/18 0918 Albuterol Sulfate (Albuterol Sulfate) 2.5 Mg/3 Ml Vial.neb, 2.5 MG NEB BID PRN for SHORTNESS OF BREATH, (Reported) Entered as Reported by: CASSIE KHAN on 05/07/19 0944 Amlodipine Besylate (Amlodipine Besylate) 10 Mg Tablet, 10 MG PO DAILY Prescribed by: KASSIDY IRELAND on 07/25/19 1141 Aspirin (Aspirin EC) 81 Mg Tablet.dr, 81 MG PO DAILY, (Reported) Entered as Reported by: CASSIE KHAN on 03/20/18 0953 Atorvastatin Calcium (Atorvastatin Calcium) 80 Mg Tablet, 80 MG PO HS, (Reported) Entered as Reported by: LORI CRAIN on 07/12/18 0914 Bimatoprost (Lumigan) 2.5 Ml Drops, 1 DROP OU HS, (Reported) Entered as Reported by: CASSIE KHAN on 05/07/19 0944 Clindamycin HCl (Clindamycin HCl) 300 Mg Capsule, 300 MG PO QID Prescribed by: MELINA CRONIN on 08/10/20 1404 Colchicine (Colchicine) 0.6 Mg Tablet, 0.6 MG PO UD Prescribed by: MELINA CRONIN on 08/10/20 1404 Cyclobenzaprine HCl (Cyclobenzaprine HCl) 10 Mg Tablet, 10 MG PO TID PRN for MUSCLE SPASMS, (Reported) Entered as Reported by: LOY DAVE on 07/16/19 184 Fluticasone/Salmeterol (Advair 500-50 Diskus) 1 Each Blst.w.dev, 1 PUFF IH BID, (Reported) Entered as Reported by: LOY DAVE on 07/16/191844 Furosemide (Furosemide) 80 Mg Tablet, 80 MG PO DAILY, (Reported) Entered as Reported by: LOY DAVE on 07/16/19 184 Hydrochlorothiazide (Hydrochlorothiazide) 25 Mg Tablet, 25 MG PO DAILY, (Reported) Entered as Reported by: CASSIE KHAN on 07/17/19 1026 Isosorbide Mononitrate (Isosorbide Mononitrate ER) 30 Mg Tab.er.24h, 30 MG PO DAILY, (Reported) Entered as Reported by: JUANITA ROUSE on 09/04/15 1624 L. Acidophilus/Pectin, [place] (Acidophilus Capsule) 1 Each Capsule, 2 EACH PO QID Prescribed by: MELINA CRONIN on 08/10/20 1404 Levothyroxine Sodium (Levothyroxine Sodium) 175 Mcg Tablet, 175 MCG PO DAILY, (Reported) Entered as Reported by: CASSIE KHAN on 05/07/19 0944 Metoprolol Tartrate (Metoprolol Tartrate) 25 Mg Tablet, 25 MG PO BID, (Reported) Entered as Reported by: CASSIE KHAN on 07/17/19 1026 Morphine Sulfate (Morphine Sulfate ER) 30 Mg Tablet.er, 30 MG PO BID, (Reported) Entered as Reported by: CASSIE KHAN on 05/07/19 1016 Oxycodone HCl/Acetaminophen (Oxycodon-Acetaminophen 7.5-325) 1 Each Tablet, 1 TAB PO QID PRN for PAIN-MODERATE (5-7), (Reported) Entered as Reported by: CASSIE KHAN on 05/07/19 0944 Oxymetazoline HCl (Oxymetazoline HCl) 30 Ml [place], 0 NS BID PRN for CONGESTION, (Reported) Entered as Reported by: GOMEZ SANDY on 07/23/19 1403 Potassium Chloride (Potassium Chloride) 10 Meq Tab.er.prt, 10 MEQ PO BID, (Repor jennifer) Entered as Reported by: CASSIE KHAN on 07/17/19 0908 Prednisone (Prednisone) 20 Mg Tab, 40 MG PO DAILY Prescribed by: TA LÓPEZ on 08/10/20 0118 Prednisone (Prednisone) 10 Mg Tab.ds.pk, 10 MG PO DAILY Prescribed by: MELINA CRONIN on 08/10/20 1404 Review of Systems Review of Systems Constitutional: no symptoms reported EENTM: No Symptoms Reported Respiratory: No Symptoms Reported Cardiovascular: See HPI Gastrointestinal: No Symptoms Reported Genitourinary: No Symptoms Reported Musculoskeletal: no symptoms reported Skin: no symptoms reported Psychiatric/Neurological: No Symptoms Reported Endocrine: No Symptoms Reported Hematologic/Lymphatic: No Symptoms Reported Past Roixzgw-Ghkuvh-Bialgs Hx Patient Social History Tobacco Use?: No Smoking Status: Never a Smoker Smokeless Tobacco Frequency: Never a User Use of E-Cig and/or Vaping dev: No Use of E-Cig and/or Vaping Yovany: Never a User Substance use?: No Alcohol Use?: No Pt feels they are or have been: No Immunizations Up To Date Tetanus Booster (TDap): Unknown First/Initial COVID19 Vaccinat: UNKNOWN DATE Second COVID19 Vaccination Jamarcus: UNKNOWN DATE COVID19 Vaccine Tie Carrier: MODERNA Seasonal Allergies Seasonal Allergies: No Past Medical History Surgeries: Yes (COLON POLYP REMOVAL, MULTIPLE HERNIA REPAIRS, D&C) Abdominal, Adenoidectomy, Bowel Surgery, Coronary Stent, Eye Surgery, Gallbladder, Tonsillectomy, Tubal Ligation Respiratory: Yes (CHRONIC DYSPNEA--USES O2 AT HOME, ESPECIALLY AT NIGHT) Sleep Apnea, COPD Cardiac: Yes (TACHYCARDIA, STENTS X 1, CHF) Atrial Fibrillation, Chronic Edema/Swelling, Coronary Artery Disease, Deep Vein Thrombosis, Heart Attack, High Cholesterol, Hypertension Neurological: No 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 Disorders: No Female 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 Disorders: Denies 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 History: Tubal Ligation, Menopausal Sexually Transmitted Disease: No HIV/AIDS: No Genitourinary: Yes UTI-Chronic Gastrointestinal: Yes Abdominal Hernia, Diverticulosis, Polyps Musculoskeletal: Yes (CHRONIC GENERALIZED PAIN--NARCOTIC-DEPENDENT) Degenerate Disk Disease, Arthritis, Chronic Back Pain Endocrine: Yes (MORBID OBESITY) Hypothyroidsim, Diabetes, Non-Insulin dep HEENT: Yes Cataract, Glaucoma Loss of Vision: Denies Hearing Impairment: Denies Cancer: Yes (SQUAMOUS CELL SKIN CANCER RIGHT CHEEK 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) Skin, Colon Did You Recieve Any Treatments: Yes What Type of Treatment Did You: Surgical Intervention Psychosocial: No Integumentary: Yes (CELLULITIS; SKIN CANCER; BEDBUGS) Eczema Blood Disorders: Yes (CHRONIC ANEMIA) Adverse Reaction/Blood Tranf: No (HAS HAD BLOOD WITH NO REACTION) Family Medical History Cancer 03 MOTHER, Onset:40's - 50 Family history: Cardiovascular disease 03 FATHER, Onset:40's - 50 03 MOTHER, Onset:30's - 40 Myocardial infarction 03 MOTHER, Onset:30's - 40 Heart Disease, Cancer, CAD Under 55 Years Old Physical Exam Vital Signs Vital Signs - First Documented 06/13/21 06/13/21 18:25 19:15 Temp 36.4 Pulse 67 Resp 18 B/P (MAP) 143/130 (134) Pulse Ox 96 O2 Delivery Room Air Capillary Refill : Less Than 3 Seconds Height, Weight, BMI Height: 5'2.00" Weight: 273lbs. 0.0oz. 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 Norm as Tested Skin: Normal Color, Warm/Dry Procedures/Interventions Suture Size: 4-0 Progress/Results/Core Measures Results/Orders Lab Results Laboratory Tests Test 06/13/21 18:33 Range/Units White Blood Count 18.2 H 4.3-11.0 10^3/uL Red Blood Count 3.99 3.80-5.11 10^6/uL Hemoglobin 12.3 11.5-16.0 g/dL Hematocrit 39 35-52 % Mean Corpuscular Volume 98 80-99 fL Mean Corpuscular Hemoglobin 31 25-34 pg Mean Corpuscular Hemoglobin Concent 32 32-36 g/dL Red Cell Distribution Width 13.4 10.0-14.5 % Platelet Count 286 130-400 10^3/uL Mean Platelet Volume 9.5 9.0-12.2 fL Immature Granulocyte % (Auto) 0 % Neutrophils (%) (Auto) 43 42-75 % Lymphocytes (%) (Auto) 46 H 12-44 % Monocytes (%) (Auto) 7 0-12 % Eosinophils (%) (Auto) 3 0-10 % Basophils (%) (Auto) 0 0-10 % Neutrophils # (Auto) 7.8 1.8-7.8 10^3/uL Lymphocytes # (Auto) 8.4 H 1.0-4.0 10^3/uL Monocytes # (Auto) 1.3 H 0.0-1.0 10^3/uL Eosinophils # (Auto) 0.6 H 0.0-0.3 10^3/uL Basophils # (Auto) 0.1 0.0-0.1 10^3/uL Immature Granulocyte # (Auto) 0.1 0.0-0.1 10^3/uL Neutrophils % (Manual) 48 % Lymphocytes % (Manual) 42 % Monocytes % (Manual) 6 % Eosinophils % (Manual) 4 % Blood Morphology Comment NORMAL Prothrombin Time 13.7 12.2-14.7 SEC INR Comment 1.0 0.8-1.4 Activated Partial Thromboplast Time 29 24-35 SEC Sodium Level 138 135-145 MMOL/L Potassium Level 3.4 L 3.6-5.0 MMOL/L Chloride Level 97 L 98-107 MMOL/L Carbon Dioxide Level 27 21-32 MMOL/L Anion Gap 14 5-14 MMOL/L Blood Urea Nitrogen 31 H 7-18 MG/DL Creatinine 1.46 H 0.60-1.30 MG/DL Estimat Glomerular Filtration Rate 36 BUN/Creatinine Ratio 21 Glucose Level 107 H 70-105 MG/DL Calcium Level 9.6 8.5-10.1 MG/DL Corrected Calcium 9.8 8.5-10.1 MG/DL Magnesium Level 2.0 1.6-2.4 MG/DL Total Bilirubin 0.4 0.1-1.0 MG/DL Aspartate Amino Transf (AST/SGOT) 18 5-34 U/L Alanine Aminotransferase (ALT/SGPT) 16 0-55 U/L Alkaline Phosphatase 97 40-136 U/L Myoglobin 279.4 H 10.0-92.0 NG/ML Troponin I 0.162 H <0.028 NG/ML Total Protein 7.4 6.4-8.2 GM/DL Albumin 3.8 3.2-4.5 GM/DL My Orders Orders - ELE PEREYRA MD Cbc With Automated Diff (06/13/21 18:33) Magnesium (06/13/21 18:33) Ekg Tracing (06/13/21 18:33) Comprehensive Metabolic Panel (06/13/21 18:33) Myoglobin Serum (06/13/21 18:33) Protime With Inr (06/13/21 18:33) Partial Thromboplastin Time (06/13/21 18:33) O2 (06/13/21 18:33) Monitor-Rhythm Ecg Trace Only (06/13/21 18:33) Lipid Panel (06/14/21 06:00) Ed Iv/Invasive Line Start (06/13/21 18:33) Troponin I Jonas (06/13/21 18:33) Morphine Injection (Morphine Injection (06/13/21 18:36) Aspirin Chewable Tablet (Baby Aspirin Ch (06/13/21 18:43) Heparin Drip 29641 Unit/500ml (Heparin (06/13/21 18:45) Heparin (Bolus Per Protocol) (Heparin (B (06/13/21 18:45) Manual Differential (06/13/21 18:33) Ekg Tracing (06/13/21 19:13) Medications Given in ED Current Medications Medications Dose Ordered Sig/Giuseppe Route Start Time Stop Time Status Last Admin Dose Admin Aspirin 81 mg STK-MED ONCE .ROUTE 06/13/21 18:43 06/13/21 18:45 DC 06/13/21 18:47 243 MG Morphine Sulfate 10 mg STK-MED ONCE .ROUTE 06/13/21 18:36 06/13/21 18:41 DC 06/13/21 18:47 5 MG Vital Signs/I&O 06/13/21 06/13/21 18:25 19:15 Temp 36.4 Pulse 67 68 Resp 18 17 B/P (MAP) 143/130 (134) 120/54 Pulse Ox 96 O2 Delivery Room Air Room Air Blood Pressure Mean: 134 Progress Progress Note : Time: 19:15 Progress Note Patient was found to have ST changes suspicious for possible STEMI along with intense chest pain. She was given 3 additional baby aspirin. She took 1 baby aspirin earlier in the day. EKG was immediately brought to Dr. Haque for review. He shared the concern for STEMI. Patient was provided a heparin bolus and drip. Morphine 5 mg IV was administered for pain control which reduced her pain to 7/10. Repeat EKG confirmed the suspicion for STEMI. Both EKGs had PVC and bigeminy interference/artifact. Patient was agreeable to heart cath and is familiar with heart cath from prior procedure. Dr. Haque has now presented to the ER and patient is going to Spectrographic Analyst in stable condition. There was a minor delay in going to the Spectrographic Analyst as there was a patient on the cath table upon her arrival to the ER. EKG #1: EKG Time: 18:30 Rate: 102 Rhythm: S.Tach Comment Sinus tachycardia with numerous PVCs. Suspicion for ST elevation IN based on ST changes in the inferior and lateral leads. PVCs create interference/artifact. EKG #2: EKG Time: 19:01 Rate: [address] changes in numerous leads concerning for STEMI. Left axis deviation by automated read. Departure Communication (Admissions) Time/Spoke to Admitting Phy: 18:38 Dr. Haque Impression Primary Impression: ST elevation myocardial infarction (STEMI) of anterior wall, initial episode of care Additional Impressions: ST elevation (STEMI) myocardial infarction Qualified Codes: I21.3 - ST elevation (STEMI) myocardial infarction of unspecified site Chest pain Qualified Codes: R07.9 - Chest pain, unspecified Disposition: ADMITTED INPATIENT Condition: Stable Admissions Decision to Admit Reason: Admit from ER (General) Decision to Admit/Date: Jun 13, 2021 Time/Decision to Admit Time: 18:32 Departure-Patient Inst. Referrals: JAN HERNANDEZ MD (PCP/Family) Primary Care Physician Copy Copies To 1: JAN HERNANDEZ MD, JOSHUA T MD Jun 13, 2021 19:19
[2021-06-13] MEDS ORDERED: NS IV 1000 ML 1,000 ML ONE (19:22)
--- NOTE | 2021-06-13 19:26 | Consultation-Cardiology ---
HPI-Cardiology Cardiology Consultation: Date of Consultation 06/13/2021 Date of Admission 06/13/2021 Attending Physician Jan Haque Jr, MD Admitting Physician Jan Mckeon MD Consulting Physician JAN HAQUE JR, MD HPI: Time Seen by a Provider: 19:25 Chief Complaint: Reason for consultation: Chest pain with possible anterior ST elevation myocardial infarction. I had the pleasure of seeing Sis in the emergency room at [facility] in [place], [place] this evening. She has known history of coronary artery disease with 2 previous drug-eluting stents in the midportion of the left anterior descending coronary artery. She actually just had a recent stress test and echocardiogram for follow-up and the stress test showed normal myocardial perfusion and her echocardiogram showed an ejection fraction of 50-55%. She was continued on medical therapy. However, about 45 minutes prior to presentation in the emergency room, she developed severe substernal chest tightness. She did have some associated shortness of breath. Because of the discomfort, she came to the emergency room for further evaluation. She underwent an electrocardiogram that showed frequent ventricular ectopy and was somewhat d ifficult to determine whether or not there were any ST segment changes due to the amount of ectopy. She was treated with intravenous morphine and her chest discomfort improved. A follow-up electrocardiogram was then performed that showed anterior ST elevation. As such, a code STEMI was called. I was consulted for emergency cardiac catheterization. Prior to this, she denied any dyspnea, paroxysmal nocturnal dyspnea, orthopnea, palpitations, lightheadedness, syncope, or ankle edema. Certain portions of this document may have been dictated utilizing voice recognition technology. Inherent to this technology, typographical and gra mmatical errors may exist. As much as I am diligent to identify and correct these mistakes, some errors may remain in the document. Review of Systems-Cardiology Review of Systems Other comments Review of 10 organ systems is as per the history of present illness, otherwise negative. WCT-Lzyimg-Cbqmxx Hx Patient Social History Smoking Status: Never a Smoker 2nd Hand Smoke Exposure: No Have you traveled recently?: No Alcohol Use?: No Pt feels they are or have been: No Immunizations Up To Date Tetanus Booster (TDap): Unknown Date of Pneumonia Vaccine: Mar 13, 2013 Date of Influenza Vaccine: Apr 23, 2019 Past Medical History PMH As described under Assessment. Family Medical History Family Medical History: She reports her father had CAD diagnosed in his late 40's. Her mother had CAD diagnosed in her late 30's, early 40's with an MN. Family History: Cancer 03 MOTHER, Onset:40's - 50 Family history: Cardiovascular disease 03 FATHER, Onset:40's - 50 03 MOTHER, Onset:30's - 40 Myocardial infarction 03 MOTHER, Onset:30's - 40 Allergies and Home Medications Allergies Coded Allergies: ceftriaxone (Verified Allergy, Unknown, pt has received Zosyn w/o issue, 05/09/19) ibuprofen (Verified Allergy, Unknown, PT TAKES ASA AT HOME, 08/02/17) PER MED REC diazepam (Verified Adverse Reaction, Severe, 12/04/18) Patient Home Medication List Home Medication List Reviewed: Yes Albuterol Sulfate (Proair Hfa) 1 Puff Puff, 2 PUFF INH Q6H PRN for SHORTNESS OF BREATH, (Reported) Entered as Reported by: CASSIE KHAN on 03/20/18 0918 Albuterol Sulfate (Albuterol Sulfate) 2.5 Mg/3 Ml Vial.neb, 2.5 MG NEB BID PRN for SHORTNESS OF BREATH, (Reported) Entered as Reported by: CASSIE KHAN on 05/07/19 0944 Amlodipine Besylate (Amlodipine Besylate) 10 Mg Tablet, 10 MG PO DAILY Prescribed by: KASSIDY IRELAND on 07/25/19 1141 Aspirin (Aspirin EC) 81 Mg Tablet.dr, 81 MG PO DAILY, (Reported) Entered as Reported by: CASSIE KHAN on 03/20/18 0953 Atorvastatin Calcium (Atorvastatin Calcium) 80 Mg Tablet, 80 MG PO HS, (Reported) Entered as Reported by: LORI CRAIN on 07/12/18 0914 Bimatoprost (Lumigan) 2.5 Ml Drops, 1 DROP OU HS, (Reported) Entered as Reported by: CASSIE KHAN on 05/07/19 0944 Clindamycin HCl (Clindamycin HCl) 300 Mg Capsule, 300 MG PO QID Prescribed by: MELINA CRONIN on 08/10/20 1404 Colchicine (Colchicine) 0.6 Mg Tablet, 0.6 MG PO UD Prescribed by: MELINA CRONIN on 08/10/20 1404 Cyclobenzaprine HCl (Cyclobenzaprine HCl) 10 Mg Tablet, 10 MG PO TID PRN for MUSCLE SPASMS, (Reported) Entered as Reported by: LOY DAVE on 07/16/191844 Fluticasone/Salmeterol (Advair 500-50 Diskus) 1 Each Blst.w.dev, 1 PUFF IH BID, (Reported) Entered as Reported by: LOY DAVE on 07/16/191844 Furosemide (Furosemide) 80 Mg Tablet, 80 MG PO DAILY, (Reported) Entered as Reported by: LOY DAVE on 07/16/191844 Hydrochlorothiazide (Hydrochlorothiazide) 25 Mg Tablet, 25 MG PO DAILY, (Reported) Entered as Reported by: CASSIE KHAN on 07/17/19 1026 Isosorbide Mononitrate (Isosorbide Mononitrate ER) 30 Mg Tab.er.24h, 30 MG PO DAILY, (Reported) Entered as Reported by: JUANITA ROUSE on 09/04/15 1624 L. Acidophilus/Pectin, [place] (Acidophilus Capsule) 1 Each Capsule, 2 EACH PO QID Prescribed by: MELINA CRONIN on 08/10/20 1404 Levothyroxine Sodium (Levothyroxine Sodium) 175 Mcg Tablet, 175 MCG PO DAILY, (Reported) Entered as Reported by: CASSIE KHAN on 05/07/19 0944 Metoprolol Tartrate (Metoprolol Tartrate) 25 Mg Tablet, 25 MG PO BID, (Reported) Entered as Reported by: CASSIE KHAN on 07/17/19 1026 Morphine Sulfate (Morphine Sulfate ER) 30 Mg Tablet.er, 30 MG PO BID, (Reported) Entered as Reported by: CASSIE KHAN on 05/07/19 1016 Oxycodone HCl/Acetaminophen (Oxycodon-Acetaminophen 7.5-325) 1 Each Tablet, 1 TAB PO QID PRN for PAIN-MODERATE (5-7), (Reported) Entered as Reported by: CASSIE KHAN on 05/07/19 0944 Oxymetazoline HCl (Oxymetazoline HCl) 30 Ml [place], 0 NS BID PRN for CONGESTION, (Reported) Entered as Reported by: GOMEZ SANDY on 07/23/19 1403 Potassium Chloride (Potassium Chloride) 10 Meq Tab.er.prt, 10 MEQ PO BID, (Reported) Entered as Reported by: CASSIE KHAN on 07/17/19 0908 Prednisone (Prednisone) 20 Mg Tab, 40 MG PO DAILY Prescribed by: TA LÓPEZ on 08/10/20 0118 Prednisone (Prednisone) 10 Mg Tab.ds.pk, 10 MG PO DAILY Prescribed by: MELINA CRONIN on 08/10/20 1404 Exam Vital Signs Vital Signs Date Time Temp Pulse Resp B/P (MAP) Pulse Ox O2 Delivery O2 Flow Rate FiO2 06/13/21 19:15 68 17 120/54 96 Room Air 06/13/21 18:25 36.4 Physical Exam General: Alert. No acute distress. Well nourished and appears stated age. She is overweight. Eye: Extraocular movements are intact. Conjunctivae are clear. There are no xanthelasma. HENT: Normocephalic. Atraumatic. Carotid pulsations 2/2 without bruits. Neck: Jugular venous pressure does not appear elevated. No thyromegaly appreciated. Respiratory: Lungs are clear to auscultation. Respirations are non-labored. Breath sounds are equal. Symmetrical chest wall expansion. Cardiovascular: Normal rate. Regular rhythm. No murmur. No gallop. Point of m aximal impulse is not appear displaced. Good pulses equal in all extremities. No edema. Gastrointestinal: Soft. Normal bowel sounds. Skin: Skin turgor is normal. There is no pallor. She has diffuse areas of excess skin from significant weight loss. Musculoskeletal: She probably has at least a moderate degree of scoliosis. Neurologic: Alert and oriented to person, place, time. Cranial nerves 3-12 appear grossly intact. The patient has good motor tone strength in the upper and lower extremities bilaterally. Psychiatric: Cooperative. Appropriate mood & affect. Labs Laboratory Tests Test 06/13/21 18:33 Range/Units White Blood Count 18.2 H 4.3-11.0 10^3/uL Red Blood Count 3.99 3.80-5.11 10^6/uL Hemoglobin 12.3 11.5-16.0 g/dL Hematocrit 39 35-52 % Mean Corpuscular Volume 98 80-99 fL Mean Corpuscular Hemoglobin 31 25-34 pg Mean Corpuscular Hemoglobin Concent 32 32-36 g/dL Red Cell Distribution Width 13.4 10.0-14.5 % Platelet Count 286 130-400 10^3/uL Mean Platelet Volume 9.5 9.0-12.2 fL Immature Granulocyte % (Auto) 0 % Neutrophils (%) (Auto) 43 42-75 % Lymphocytes (%) (Auto) 46 H 12-44 % Monocytes (%) (Auto) 7 0-12 % Eosinophils (%) (Auto) 3 0-10 % Basophils (%) (Auto) 0 0-10 % Neutrophils # (Auto) 7.8 1.8-7.8 10^3/uL Lymphocytes # (Auto) 8.4 H 1.0-4.0 10^3/uL Monocytes # (Auto) 1.3 H 0.0-1.0 10^3/uL Eosinophils # (Auto) 0.6 H 0.0-0.3 10^3/uL Basophils # (Auto) 0.1 0.0-0.1 10^3/uL Immature Granulocyte # (Auto) 0.1 0.0-0.1 10^3/uL Neutrophils % (Manual) 48 % Lymphocytes % (Manual) 42 % Monocytes % (Manual) 6 % Eosinophils % (Manual) 4 % Blood Morphology Comment NORMAL Prothrombin Time 13.7 12.2-14.7 SEC INR Comment 1.0 0.8-1.4 Activated Partial Thromboplast Time 29 24-35 SEC Sodium Level 138 135-145 MMOL/L Potassium Level 3.4 L 3.6-5.0 MMOL/L Chloride Level 97 L 98-107 MMOL/L Carbon Dioxide Level 27 21-32 MMOL/L Anion Gap 14 5-14 MMOL/L Blood Urea Nitrogen 31 H 7-18 MG/DL Creatinine 1.46 H 0.60-1.30 MG/DL Estimat Glomerular Filtration Rate 36 BUN/Creatinine Ratio 21 Glucose Level 107 H 70-105 MG/DL Calcium Level 9.6 8.5-10.1 MG/DL Corrected Calcium 9.8 8.5-10.1 MG/DL Magnesium Level 2.0 1.6-2.4 MG/DL Total Bilirubin 0.4 0.1-1.0 MG/DL Aspartate Amino Transf (AST/SGOT) 18 5-34 U/L Alanine Aminotransferase (ALT/SGPT) 16 0-55 U/L Alkaline Phosphatase 97 40-136 U/L Myoglobin 279.4 H 10.0-92.0 NG/ML Troponin I 0.162 H <0.028 NG/ML Total Protein 7.4 6.4-8.2 GM/DL Albumin 3.8 3.2-4.5 GM/DL ECG Impression ECG Comment Sinus rhythm with frequent premature ventricular complexes and anterior ST elevation consistent with an anterior injury pattern. This is my recollection from memory. The 2 electrocardiogram tracings were not transferred into the medical record as of yet. Diagnosis/Problems Diagnosis/Problems (1) ST elevation myocardial infarction (STEMI) of anterior wall, initial episode of care Assessment & Plan: She appears to be suffering an acute anterior ST elevation myocardial infarction. She will be taken for emergency cardiac catheterization. (2) Coronary artery disease with unstable angina pectoris Assessment & Plan: As above, she appears to be suffering an acute anterior ST elevation myocardial infarction. We will proceed with emergency cardiac catheterization. (3) Paroxysmal atrial fibrillation Status: Chronic Assessment & Plan: She has previous history of paroxysmal atrial fibrillation. She is not currently on any anticoagulation. She will be monitored on telemetry while she is here in the hospital. (4) Primary hypertension Assessment & Plan: Blood pressure was somewhat low on admission to the emerge ncy room. For the time being, I will hold off on resuming her antihypertensive medication. (5) Mixed hyperlipidemia Assessment & Plan: If this does in fact return agent to be an acute myocardial infarction, I will place her on intensive dose statin therapy. JAN HAQUE JR, MD Jun 13, 2021 19:26
--- NOTE | 2021-06-13 19:27 | Pre-Op Note & Conscious Sedat ---
Pre-Operative Progress Note H&P Reviewed The H&P was reviewed, patient examined and no changes noted. Date H&P Reviewed: Jun 13, 2021 Time H&P Reviewed: 19:27 Pre-Op Diagnosis: Possible anterior ST elevation myocardial infarction Conscious Sedation Pre-Proced ASA Score 3 For ASA 3 and 4: Consider anesthesia and medical clearance. Also, for patients with a history of failed moderate sedation consider anesthesia. Airway Lungs Heart ASA score ASA 1: a normal healthy patient ASA 2: a patient with a mild systemic disease (mid diabetes, controlled hypertension, obesity ASA 3: a patient with a severe systemic disease that limits activity (angina, COPD, prior Myocardial infarction) ASA 4: a patient with an incapacitating disease that is a constant threat to life (CHF, renal failure) ASA 5: a moribund patient not expected to survive 24 hrs. (ruptured aneurysm) ASA 6: a declared brain- patient whose organs are being harvested. For emergent operations, add the letter E after the classification Mallampati Classification Grade 3 Sedation Plan Analgesia, Amnesia, Plan communicated to team members, Discussed options with patient/fam, Discussed risks with patient/fam The patient is an appropriate candidate to undergo the planned procedure, sedation, and anesthesia. The patient immediately re-assessed prior to indication. JAN BOYLE JR, MD Jun 13, 2021 19:27
[2021-06-13 19:30] LABS: EOSINOPHILS % (MANUAL) 4 %; LYMPHOCYTES % (MANUAL) 42 %; MONOCYTES % (MANUAL) 6 %; NEUTROPHILS % (MANUAL) 48 %; RBC MORPH NORMAL
[2021-06-13] MEDS ORDERED: TICAGRELOR 90 MG TABLET (BRILINTA) PO ONE (20:14)
[2021-06-13] MEDS ORDERED: NS IV 1000 ML 1,000 ML IV SCH (20:45)
[2021-06-13] MEDS ORDERED: PATIENT MAY USE OWN MEDS, ALL PO SCH (20:45)
[2021-06-13] MEDS ORDERED: TICAGRELOR 90 MG TABLET (BRILINTA) PO SCH (21:00)
--- NOTE | 2021-06-13 21:44 | Cardiac Cath Report ---
CARDIAC CATHETERIZATION DATE OF PROCEDURE: 06/13/2021 INDICATION: Anterior ST elevation myocardial infarction. HISTORY: The patient is a 66 year old female with a known history of coronary artery disease with 2 previous drug-eluting stents in the midportion of left anterior descending coronary artery. She was well until 45 minutes prior to admission when she developed severe substernal chest discomfort. She came to the emergency room for further evaluation. Her first electrocardiogram showed questionable anterior ST elevation but was difficult to interpret due to frequent ventricular ectopy. She was given intravenous morphine and her chest discomfort improved. A follow-up electrocardiogram at that time showed sinus rhythm with anterior ST elevation consistent with a probable anterior STEMI. As such, a code STEMI was called. PROCEDURES PERFORMED: 1. Left heart catheterization with hemodynamic measurements. 2. Diagnostic [place] coronary angiography. 3. Drug-eluting stent placement to the mid left anterior descending coronary artery for the acute myocardial infarction. PROCEDURE DESCRIPTION: After informed consent and in the fasting state, left heart catheterization was performed through the right radial artery utilizing a 6 Ugandan system by percutaneous approach. A 5 Ug[place]an JR4 catheter was utilized to interrogate the left ventricle and right coronary artery. A 6 [place]an CLS 3.5 guide catheter was utilized to interrogate the left coronary artery and for the percutaneous coronary intervention. All catheters were exchanged over a guidewire. Following the procedure, a vascular band was applied to the radial artery access site and the sheath was removed with good hemostasis. RESULTS: HEMODYNAMICS: The aortic pressure was 86/41 mmHg. The left ventricular pressure was 86/0 mmHg with a left ventricular end-diastolic pressure of 10 mmHg. There was no significant pressure gradient upon pullback across aortic valve. CORONARY ANGIOGRAPHY: Left main coronary artery: Free of significant disease. Left anterior descending coronary artery: There appeared to be 2 stents in the midportion of the vessel and both stents were free of significant disease but there was an eccentric 80% stenosis in between the 2 stents and a 90% stenosis just distal to the distal stent with EDGAR-1 flow. This was most likely the ischemia related vessel for the acute myocardial infarction. Left circumflex coronary artery: Free of significant disease. Ramus intermedius: There was a ramus intermedius branch which was free of significant disease. Right coronary artery: Dominant and free of significant disease. PERCUTANEOUS CORONARY INTERVENTION: Percutaneous coronary intervention was carried out on the left anterior descending coronary artery through the 6 [place]an CLS 3.5 guide catheter. The lesions were first successfully crossed with a [employer] guidewire. I subsequently performed coronary angioplasty with a 3 x 12 mm Trek balloon at a pressure of 8-10 agusto for several inflations. Flow was improved. I subsequently deployed a 3 x 15 mm drug-eluting Xience Skypoint stent in the more distal lesion overlapping the distal edge of the previously placed stent at a pressure of 16 agusto. I then postdilated the overlapped segment with the stent balloon at a pressure of 16 agusto. I subsequently deployed a 3.5 x 15 mm drug-eluting Xience Skypoint stent in between the 2 previously placed stent at a pressure of 16 agusto. I then postdilated the stent and the overlap segments of the previously placed stents with a 3.5 x 12 mm noncompliant Trek balloon and a pressure of 16 agusto. Following stent placement, there was 0% residual stenosis with EDGAR-3 flow. IMPRESSION: 1. Normal left heart pressures. 2. Patent stents in the mid left anterior descending coronary artery however, there was severe disease in between the 2 stents and distal to the distal stent that most likely caused the acute anterior ST elevation myocardial infarction. 3. Status post drug-eluting stent placement to the mid left anterior descending coronary artery with a 3.5 x 15 mm Xience Skypoint stent deployed between the 2 previously placed stents and a 3 x 15 mm Xience Skypoint stent deployed at the distal margin of the previously placed distal stent with 0% residual stenosis and EDGAR-3 flow. 4. The patient is known to have normal left ventricular systolic function with a calculated ejection fraction of 75% by nuclear stress test that was performed on 05/20/2021. Certain portions of this document may have been dictated utilizing voice recognition technology. Inherent to this technology, typographical and grammatical errors may exist. As much as I am diligent to identify and correct these mistakes, some errors may remain in the document. JAN BOYLE JR, MD Jun 13, 2021 21:44
--- NOTE | 2021-06-13 22:13 | Tele-ICU Consult ---
History of Present Illness History of Present Illness Date Seen by Provider: Jun 13, 2021 Time Seen by Provider: 22:09 History of Present Illness 66 F came to ED with severe CP, Hx of CAD with stents, taken to CCL, two stents in LAD were occluded and PCTA done, on DPT, will follow Allergies and Home Medications Allergies Coded Allergies: ceftriaxone (Verified Allergy, Unknown, pt has received Zosyn w/o issue, 05/09/19) ibuprofen (Verified Allergy, Unknown, PT TAKES ASA AT HOME, 08/02/17) PER MED REC diazepam (Verified Adverse Reaction, Severe, 12/04/18) Home Medications Albuterol Sulfate 1 Puff Puff, 2 PUFF INH Q6H PRN for SHORTNESS OF BREATH, (Reported) Albuterol Sulfate 2.5 Mg/3 Ml Vial.neb, 2.5 MG NEB BID PRN for SHORTNESS OF BREATH, (Reported) Amlodipine Besylate 10 Mg Tablet, 10 MG PO DAILY Prescribed by: KASSIDY IRELAND on 07/25/19 1141 Aspirin 81 Mg Tablet.dr, 81 MG PO DAILY, (Reported) Atorvastatin Calcium 80 Mg Tablet, 80 MG PO HS, (Reported) Bimatoprost 2.5 Ml Drops, 1 DROP OU HS, (Reported) Clindamycin HCl 300 Mg Capsule, 300 MG PO QID Prescribed by: MELINA CRONIN on 08/10/20 1404 Colchicine 0.6 Mg Tablet, 0.6 MG PO UD 1.2 MG AT ONSET OF GOUT FLARE, THEN MAY TAKE 0.6 MG BID Prescribed by: MELINA CRONIN on 08/10/20 1404 Cyclobenzaprine HCl 10 Mg Tablet, 10 MG PO TID PRN for MUSCLE SPASMS, (Reported) Fluticasone/Salmeterol 1 Each Blst.w.dev, 1 PUFF IH BID, (Reported) Furosemide 80 Mg Tablet, 80 MG PO DAILY, (Reported) Hydrochlorothiazide 25 Mg Tablet, 25 MG PO DAILY, (Reported) Isosorbide Mononitrate 30 Mg Tab.er.24h, 30 MG PO DAILY, (Reported) L. Acidophilus/Pectin, [place] 1 Each Capsule, 2 EACH PO QID Prescribed by: MELINA CRONIN on 08/10/20 1404 Levothyroxine Sodium 175 Mcg Tablet, 175 MCG PO DAILY, (Reported) Metoprolol Tartrate 25 Mg Tablet, 25 MG PO BID, (Reported) Morphine Sulfate 30 Mg Tablet.er, 30 MG PO BID, (Reported) Oxycodone HCl/Acetaminophen 1 Each Tablet, 1 TAB PO QID PRN for PAIN-MODERATE (5-7), (Reported) Oxymetazoline HCl 30 Ml [place], 0 NS BID PRN for CONGESTION, (Reported) Potassium Chloride 10 Meq Tab.er.prt, 10 MEQ PO BID, (Reported) Prednisone 20 Mg Tab, 40 MG PO DAILY Prescribed by: TA LÓPEZ on 08/10/20 0118 Prednisone 10 Mg Tab.ds.pk, 10 MG PO DAILY Take 6 tabs(60mg)daily,decrease by 1 tab(10MG)daily. Prescribed by: MELINA CRONIN on 08/10/20 1404 Past Medical/Social/Family Hx Patient Social History Tobacco Use?: No Smoking Status: Never a Smoker Smokeless Tobacco Frequency: Never a User Use of E-Cig and/or Vaping dev: No E-Cig and/or Vaping Freq: Never a User Substance use?: No Alcohol Use?: No Pt stated abuse/neglect: No Immunizations Up To Date First/Initial COVID19 Vaccinat: UNKNOWN DATE Second COVID19 Vaccination Jamarcus: UNKNOWN DATE Tetanus Booster (TDap): Unknown Date of Pneumonia Vaccine: Mar 13, 2013 Current Status Advance Directives: No Communicates: Verbally Primary Language: Northern Irish Preferred Spoken Language: Northern Irish Is interpretation needed?: No Implanted or Applied Medical D: Stents Past Medical History Medical Hx: 1. COPD 2. Anemia of Chronic Disease 3. Morbid Obesity 4. Enterocutaneous Fistula history with watermelon inspector TPA- resolved 5. History of Villous adenoma sp polypectomy 6. DM- uncontrolled 7. CAD with history of PTCA Dr. De Leon 2010 8. A-flutter, possible A-Fib- did not tolerate anticogulant 9. HTN 10. HLP 11. Hypothyroidism 12. Extreme morbid obesity 13. History of DVT with intolerance to anticoagulant 14. Obesity hypoventilation syndrome 15. Chronic hypoxemic respiratory failure on home O2 16. Chronic pain/ narcotic dependent 17. Neuropathy 18. Arthritis 19. Glaucoma 20. Cataracts Past Surgical History 1. Infected abdominal mesh/hernia repair/fistula repair 2013 Dr. Zaman 2. Cholecystectomy 3. Tubal ligation 4. Abdominal Wall hernia repair Dr. Jonas 2003 5. D&C- Escobar 2008 6. Colonoscopy with polypectomy for colon ca (villous adenoma) 2005 Pritesh 7. Colonoscopy 2006 Pritesh 8. Tonsillectomy 9. Eye surgery 9. Cardiac Cathaterization with PTCA and stent [id number] Ion to mid LAD Review of Systems Constitutional: see HPI Focused Exam Height, Weight, BMI Height: 5'2.00" Weight: 273lbs. 0.0oz. 123.082776rg; 27.00 BMI Method:Stated Exam Exam Patient acknowledged, consented, and participated in this virtual visit which was conducted using real time audio/video Vital Signs Date Time Temp Pulse Resp B/P (MAP) Pulse Ox O2 Delivery O2 Flow Rate FiO2 06/13/21 19:15 68 17 120/54 96 Room Air 06/13/21 18:25 36.4 67 18 143/130 (134) Room Air Height & Weight Height: 5'2.00" Weight: 273lbs. 0.0oz. 123.851871uf; 27.00 BMI Method:Stated General Appearance: No Apparent Distress, WD/WN, Moderate Distress, Other (CP is gone) HEENT: PERRL/EOMI, Normal ENT Inspection Neck: Normal Inspection Respiratory: Chest Non Tender, Lungs Clear, Normal Breath Sounds, No Accessory Muscle Use Cardiovascular: Regular Rate, Rhythm, No Edema, No Murmur, Irregularly Irregular, Other (on 3 lpm oxygen at home) Capillary Refill: Less Than 3 Seconds Gastrointestinal: normal bowel sounds, non tender Extremity: Normal Inspection, Non Tender, No Pedal Edema Neurologic/Psychiatric: Alert, Oriented x3, No Motor/Sensory Deficits, Normal 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
[2021-06-13] MEDS: meTOprolol TARTRATE 25 MG (LOPRESSOR) TABLET PO SCH (22:51)
[2021-06-14 04:46] LABS: HEMATOCRIT 33 % (35-52); HEMOGLOBIN 10.7 g/dL (11.5-16.0); MEAN CORPUSCULAR HEMOGLOBIN 30 pg (25-34); MEAN CORPUSCULAR HGB CONC 32 g/dL (32-36); MEAN CORPUSCULAR VOLUME 94 fL (80-99); MEAN PLATELET VOLUME 9.9 fL (9.0-12.2); PLATELET COUNT 205 10^3/uL (130-400); WHITE BLOOD COUNT 9.1 10^3/uL (4.3-11.0)
[2021-06-14 05:06] LABS: POTASSIUM 3.9 MMOL/L (3.6-5.0)
[2021-06-14 05:07] LABS: CALCIUM 8.8 MG/DL (8.5-10.1)
[2021-06-14 05:09] LABS: TRIGLYCERIDES 83 MG/DL (<150); VLDL CHOLESTEROL 17 MG/DL (5-40)
[2021-06-14 05:11] LABS: CREATININE SERUM 1.26 MG/DL (0.60-1.30)
[2021-06-14 05:14] LABS: CHOLESTEROL 90 MG/DL (< 200); HDL CHOLESTEROL 27 MG/DL (40-60)
[2021-06-14] MEDS: KCL 20 MEQ TAB (K-DUR) PO SCH (05:39)
[2021-06-14] MEDS: POTASSIUM CL 10MEQ/50ML IVPB 50 ML IV SCH (05:39)
[2021-06-14 06:01] LABS: PHOSPHORUS 3.5 MG/DL (2.3-4.7)
[2021-06-14 06:03] LABS: MAGNESIUM 1.9 MG/DL (1.6-2.4)
[2021-06-14] MEDS: MAGNESIUM 1 GM/100 ML IVPB 100 ML IV SCH (06:12)
[2021-06-14] MEDS: TICAGRELOR 90 MG TABLET (BRILINTA) PO SCH ×2 (08:27→20:25)
[2021-06-14] MEDS: meTOprolol TARTRATE 25 MG (LOPRESSOR) TABLET PO SCH ×2 (08:27→20:25)
[2021-06-14] MEDS: ASPIRIN E.C. 81 MG (ECOTRIN) TAB PO SCH (08:27)
--- NOTE | 2021-06-14 10:37 | Cardiology Progress Note ---
Progress Note-Cardiology Events since last exam Date Seen by Provider: Jun 14, 2021 Time Seen by Provider: 10:32 Events since last exam She is on my service due to anterior STEMI that was treated with 2 drug-eluting stents to the midportion of the left anterior descending coronary artery on 06/13. She remains in the intensive care unit. She has very minimal chest discomfort this morning but this afternoon had worse chest pain and dyspnea. She denies palpitations, syncope, or ankle edema. Certain portions of this document may have been dictated utilizing voice recognition technology. Inherent to this technology, typographical and grammatical errors may exist. As much as I am diligent to identify and correct these mistakes, some errors may remain in the document. Vitals Last set of Vitals Signs Vital Signs 06/14/21 06/14/21 06/14/21 10:00 11:00 12:43 Pulse 66 Resp 11 B/P (MAP) 86/59 Pulse Ox 100 O2 Delivery Nasal Cannula O2 Flow Rate 3.00 Labs Labs Laboratory Tests 06/13/21 18:33 06/14/21 04:05 Exam Vital Signs Vital Signs Date Time Temp Pulse Resp B/P (MAP) Pulse Ox O2 Delivery O2 Flow Rate FiO2 06/14/21 12:43 66 06/14/21 11:00 11 86/59 Nasal Cannula 3.00 06/14/21 10:00 100 06/14/21 08:00 36.6 Physical Exam General: Alert. No acute distress. Eye: No xanthelasma. HENT: Normocephalic. Neck: Jugular venous pressure does not appear elevated. Respiratory: Lungs are clear to auscultation. Respirations are non-labored. Breath sounds are equal. Symmetrical chest wall expansion. Cardiovascular: Normal rate. Regular rhythm. No murmur. No gallop. No edema. Gastrointestinal: Soft. Normal bowel sounds. Skin: Warm. Dry. She has extensive areas of excess skin due to significant weight loss. Neurologic: Alert and oriented to person, place, time. Cranial nerves 3-11 grossly intact. Psychiatric: Cooperative. Appropriate mood & affect. Labs Laboratory Tests Test 06/13/21 18:33 06/14/21 04:05 Range/Units White Blood Count 18.2 H 9.1 4.3-11.0 10^3/uL Red Blood Count 3.99 3.52 L 3.80-5.11 10^6/uL Hemoglobin 12.3 10.7 L 11.5-16.0 g/dL Hematocrit 39 33 L 35-52 % Mean Corpuscular Volume 98 94 80-99 fL Mean Corpuscular Hemoglobin 31 30 25-34 pg Mean Corpuscular Hemoglobin Concent 32 32 32-36 g/dL Red Cell Distribution Width 13.4 13.4 10.0-14.5 % Platelet Count 286 205 130-400 10^3/uL Mean Platelet Volume 9.5 9.9 9.0-12.2 fL Immature Granulocyte % (Auto) 0 % Neutrophils (%) (Auto) 43 42-75 % Lymphocytes (%) (Auto) 46 H 12-44 % Monocytes (%) (Auto) 7 0-12 % Eosinophils (%) (Auto) 3 0-10 % Basophils (%) (Auto) 0 0-10 % Neutrophils # (Auto) 7.8 1.8-7.8 10^3/uL Lymphocytes # (Auto) 8.4 H 1.0-4.0 10^3/uL Monocytes # (Auto) 1.3 H 0.0-1.0 10^3/uL Eosinophils # (Auto) 0.6 H 0.0-0.3 10^3/uL Basophils # (Auto) 0.1 0.0-0.1 10^3/uL Immature Granulocyte # (Auto) 0.1 0.0-0.1 10^3/uL Neutrophils % (Manual) 48 % Lymphocytes % (Manual) 42 % Monocytes % (Manual) 6 % Eosinophils % (Manual) 4 % Blood Morphology Comment NORMAL Prothrombin Time 13.7 12.2-14.7 SEC INR Comment 1.0 0.8-1.4 Activated Partial Thromboplast Time 29 24-35 SEC Sodium Level 138 137 135-145 MMOL/L Potassium Level 3.4 L 3.9 3.6-5.0 MMOL/L Chloride Level 97 L 99 98-107 MMOL/L Carbon Dioxide Level 27 26 21-32 MMOL/L Anion Gap 14 12 5-14 MMOL/L Blood Urea Nitrogen 31 H 30 H 7-18 MG/DL Creatinine 1.46 H 1.26 0.60-1.30 MG/DL Estimat Glomerular Filtration Rate 36 42 BUN/Creatinine Ratio 21 24 Glucose Level 107 H 110 H 70-105 MG/DL Calcium Level 9.6 8.8 8.5-10.1 MG/DL Corrected Calcium 9.8 8.5-10.1 MG/DL Magnesium Level 2.0 1.9 1.6-2.4 MG/DL Total Bilirubin 0.4 0.1-1.0 MG/DL Aspartate Amino Transf (AST/SGOT) 18 5-34 U/L Alanine Aminotransferase (ALT/SGPT) 16 0-55 U/L Alkaline Phosphatase 97 40-136 U/L Myoglobin 279.4 H 10.0-92.0 NG/ML Troponin I 0.162 H <0.028 NG/ML Total Protein 7.4 6.4-8.2 GM/DL Albumin 3.8 3.2-4.5 GM/DL Phosphorus Level 3.5 2.3-4.7 MG/DL Triglycerides Level 83 <150 MG/DL Cholesterol Level 90 < 200 MG/DL LDL Cholesterol Direct 44 1-129 MG/DL VLDL Cholesterol 17 5-40 MG/DL HDL Cholesterol 27 L 40-60 MG/DL Diagnosis/Problems Diagnosis/Problems (1) ST elevation myocardial infarction (STEMI) of anterior wall, initial episode of care Assessment & Plan: She presented with an acute anterior ST elevation myocardial infarction. She was taken for emergency cardiac catheterization. She was treated with 2 drug-eluting stents to the mid left anterior descending coronary artery. She has minimal residual chest discomfort this morning. She has been placed on the usual guideline directed medical therapy with aspirin, ticagrelor, beta-horacio and intensive dose statin. I will plan on a follow-up echocardiogram tomorrow. She can likely be discharged home tomorrow. She can n ow be transferred to the medical floor on telemetry. (2) Coronary artery disease with unstable angina pectoris Assessment & Plan: As above. (3) Paroxysmal atrial fibrillation Status: Chronic Assessment & Plan: She has a previous history of paroxysmal atrial fibrillation. She is not currently on any anticoagulation. She will be monitored on telemetry while she is here in the hospital. (4) Primary hypertension Assessment & Plan: I have resumed her metoprolol tartrate. I will see how she responds to this medication before adding her other outpatient antihypertensive medication. (5) Mixed hyperlipidemia Assessment & Plan: She was on the maximum dose of atorvastatin at home. Her LDL level is under excellent control. JAN BOYLE JR, MD Jun 14, 2021 10:37
[2021-06-14] MEDS ORDERED: TIOT18CA2 IH (10:46)
[2021-06-14] MEDS ORDERED: FURO20TA4 PO (10:46)
[2021-06-14] MEDS ORDERED: HYDR-3923 PO (10:46)
[2021-06-14] MEDS ORDERED: ATOR40TA70 PO (10:46)
[2021-06-14] MEDS ORDERED: MTP25TSR PO (10:46)
[2021-06-14] MEDS ORDERED: MULT-1021 PO (10:46)
[2021-06-14] MEDS ORDERED: ALLO100T PO (10:46)
[2021-06-14] MEDS ORDERED: IPRA3AMP31 IH (10:46)
[2021-06-14] MEDS ORDERED: BUDE10.26 IH (10:46)
--- NOTE | 2021-06-14 10:49 | Tele-ICU Progress Note ---
Subjective Date Seen by a Provider: Jun 14, 2021 Time Seen by a Provider: 08:30 Subjective/Events-last exam This virtual visit was conducted using real time audio/video. Thank you for asking us to see this patient for respiratory insufficiency due to COPD/OHS. On home O2. Admitted w STEMI, recd. 2 stents. Recent events: None overnight PE: VSS. O2 sat 100% on 3 LPM NC. HEENT: No obvious masses, adenopathy or JVD. Chest: clear to auscultation. Diminished. CV: RRR S1 S2 No murmur or added sounds. Abd: Non-tender. Bowel sounds Y. : Unremarkable. [place]. 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 No obvious focal findings. Extremities: No edema. Capillary refill < 3 seconds. Skin: unremarkable. Results: Elevated BUN 30. Decreased Hb 10.7. Available chart/ vitals / labs / images reviewed. Video assessment done using teleICU camera, rest of exam as per RN. A/P: Respiratory insufficiency: Continue present management with O2, PRN BDs. Monitor for increasing oxygenation needs. Critical Care: critically ill patient. Cont. ASA, statin, metoprolol Brilinta, per Cardiology service. Consider transfer. Discussed with DAVIDA Hernandez. Asked RN to reach out to eICU if any questions or concerns later. Time spent with patient/coordination of care with other health professionals (mins): 15 Sepsis Event Evaluation Height, Weight, BMI Height: 5'2.00" Weight: 273lbs. 0.0oz. 123.310718yg; 27.97 BMI Method:Stated Exam Exam Patient acknowledged, consented, and participated in this virtual visit which was conducted using real time audio/video Vital Signs Date Time Temp Pulse Resp B/P (MAP) Pulse Ox O2 Delivery O2 Flow Rate FiO2 06/14/21 10:00 59 12 100 Nasal Cannula 3.00 06/14/21 09:11 100 Nasal Cannula 3.00 06/14/21 09:00 73 21 111/64 100 Nasal Cannula 3.00 06/14/21 08:00 Nasal Cannula 3.00 06/14/21 08:00 36.6 68 16 113/64 99 Nasal Cannula 3.00 06/14/21 08:00 36.7 06/14/21 08:00 61 19 107/58 100 Nasal Cannula 3.00 06/14/21 07:00 68 06/14/21 07:00 71 20 107/58 98 Nasal Cannula 3.00 06/14/21 06:00 74 16 113/64 99 Nasal Cannula 3.00 06/14/21 05:00 65 20 99/54 98 Nasal Cannula 3.00 06/14/21 04:00 Nasal Cannula 3.00 06/14/21 04:00 36.6 06/14/21 04:00 65 19 95/59 99 Nasal Cannula 3.00 06/14/21 03:00 64 19 97/55 97 Nasal Cannula 3.00 06/14/21 02:00 71 16 100/55 98 Nasal Cannula 3.00 06/14/21 01:00 65 19 116/67 98 Nasal Cannula 3.00 06/14/21 01:00 63 06/14/21 00:00 36.6 06/14/21 00:00 Nasal Cannula 3.00 06/14/21 00:00 61 17 126/65 98 Nasal Cannula 3.00 06/13/21 23:00 61 11 127/70 100 Nasal Cannula 3.00 06/13/21 22:15 60 11 120/59 97 Nasal Cannula 3.00 06/13/21 21:58 61 06/13/21 21:45 58 12 119/64 96 Nasal Cannula 3.00 06/13/21 21:15 64 14 119/81 90 Nasal Cannula 3.00 06/13/21 21:04 Nasal Cannula 3.00 06/13/21 21:04 36.5 64 12 121/84 94 Nasal Cannula 3.00 06/13/21 21:00 64 14 107/61 90 Nasal Cannula 3.00 06/13/21 20:45 66 21 121/72 90 Nasal Cannula 3.00 06/13/21 20:30 66 21 121/69 90 Nasal Cannula 3.00 06/13/21 19:15 68 17 120/54 96 Room Air 06/13/21 18:25 36.4 67 18 143/130 (134) Room Air I & O 06/14/21 07:00 Intake Total 300 ml Output Total 1100 ml Balance -800 ml Height & Weight Height: 5'2.00" Weight: 273lbs. 0.0oz. 123.234364vw; 27.97 BMI Method:Stated General Appearance: WD/WN, Moderate Distress HEENT: PERRL/EOMI, Normal ENT Inspection Neck: Normal Inspection Respiratory: Chest Non Tender, Lungs Clear, Normal Breath Sounds, No Accessory Muscle Use Cardiovascular: No Edema, No Murmur, Irregularly Irregular Capillary Refill: Less Than 3 Seconds Peripheral Pulses: 1+ Dorsalis Pedis (R), 1+ Left Dors-Pedis (L) (See free text.) Gastrointestinal: normal bowel sounds, non tender Extremity: Normal Inspection, Non Tender, No Pedal Edema Neurologic/Psychiatric: Alert, Oriented x3, No Motor/Sensory Deficits, Normal Mood/Affect, ends down checker II-XII Norm as Tested Skin: Normal Color, Warm/Dry Results Lab Laboratory Tests 06/13/21 18:33 06/14/21 04:05 Assessment/Plan Assessment/Plan See free text. Critical Care: Critically Ill Patient KALEE SWAIN MD Jun 14, 2021 10:49
[2021-06-14] MEDS: oxyCODONE/APAP 7.5-325 MG (PERCOCET 7.5) TABLET PO PRN (12:51)
[2021-06-14] MEDS ORDERED: ANTACID SUSP 30 ML UDC (MYLANTA) PO PRN (15:00)
[2021-06-14] MEDS ORDERED: LIDOCAINE 2% VISCOUS 15 ML UDC PO ONE (15:00)
[2021-06-14] MEDS: NITROGLYCERIN 0.4 MG SL TABS BTL 25'S SL PRN ×3 (15:10→20:45)
[2021-06-14 16:00] VITALS: BP 106/53
[2021-06-14] MEDS: RT--FLUTICASONE/SALMETEROL 232-14 (AIRDUO RespiCLICK) IH SCH (18:45)
[2021-06-14 20:00] VITALS: BP 122/66
[2021-06-14] MEDS: LATANOPROST 0.005% (XALATAN) OPHTH SOLN 2.5 ML OU SCH (20:23)
[2021-06-14] MEDS: morphine ER 30 MG (MS CONTIN) TAB PO SCH (20:25)
[2021-06-14] MEDS ORDERED: NON-FORMULARY MEDICATION 1 EA EA (Bimatoprost (Lumigan) 1 DROP) OU SCH (21:00)
[2021-06-14] MEDS ORDERED: NON-FORMULARY MEDICATION 1 EA EA (Budesonide/Formoterol Fumarate (Budesonide-Formoterol 16 IH SCH (21:00)
[2021-06-15] VITALS (7 sets, daily range): BP systolic 94–118; BP diastolic 53–62
[2021-06-15] MEDS: LEVOTHYROXINE 75 MCG (LEVOTHROID) TABLET PO SCH (05:38)
[2021-06-15] MEDS: MULTIVIT W/MINERALS TAB (THERAGRAN M) PO SCH (05:38)
[2021-06-15] MEDS: LEVOTHYROXINE 100 MCG (LEVOTHROID) TAB PO SCH (05:39)
[2021-06-15 06:40] LABS: CALCIUM 9.3 MG/DL (8.5-10.1); CREATININE SERUM 1.36 MG/DL (0.60-1.30); POTASSIUM 3.8 MMOL/L (3.6-5.0)
[2021-06-15 06:42] LABS: MAGNESIUM 2.3 MG/DL (1.6-2.4); PHOSPHORUS 2.3 MG/DL (2.3-4.7)
[2021-06-15] MEDS: MAGNESIUM 1 GM/100 ML IVPB 100 ML IV SCH (06:42)
[2021-06-15] MEDS: POTASSIUM CL 10MEQ/50ML IVPB 50 ML IV SCH (06:42)
[2021-06-15] MEDS: KCL 20 MEQ TAB (K-DUR) PO SCH (06:42)
[2021-06-15] MEDS: RT--FLUTICASONE/SALMETEROL 232-14 (AIRDUO RespiCLICK) IH SCH ×2 (08:25→21:40)
[2021-06-15] MEDS: UMECLIDINIUM BROMIDE (INCRUSE ELLIPTA) 7'S IH SCH (08:25)
[2021-06-15] MEDS: TICAGRELOR 90 MG TABLET (BRILINTA) PO SCH ×2 (08:34→20:47)
[2021-06-15] MEDS: ALLOPURINOL 100 MG (ZYLOPRIM) TAB PO SCH (08:34)
[2021-06-15] MEDS: meTOprolol TARTRATE 25 MG (LOPRESSOR) TABLET PO SCH (08:34)
[2021-06-15] MEDS: ASPIRIN E.C. 81 MG (ECOTRIN) TAB PO SCH (08:35)
[2021-06-15] MEDS: FUROSEMIDE 20 MG (LASIX) TAB PO SCH (08:35)
[2021-06-15] MEDS: morphine ER 30 MG (MS CONTIN) TAB PO SCH ×2 (08:35→20:49)
[2021-06-15] MEDS ORDERED: hydrALAZINE (APRESOLINE) 25 MG TAB PO SCH (09:00)
[2021-06-15] MEDS ORDERED: NON-FORMULARY MEDICATION 1 EA EA (Levothyroxine Sodium 175 MCG) PO SCH (09:00)
[2021-06-15] MEDS ORDERED: TIOTROPIUM BROMIDE (SPIRIVA) 5'S INHALER IH SCH (09:00)
--- NOTE | 2021-06-15 10:15 | Cardiology Progress Note ---
Progress Note-Cardiology Events since last exam Date Seen by Provider: Jun 15, 2021 Time Seen by Provider: 17:50 Events since last exam I am following her on my service due to anterior STEMI treated with 2 drug-el uting stents to the left anterior descending coronary artery. Last evening she had an episode of chest discomfort and shortness of breath. I had the nurse give her sublingual nitroglycerin and a GI cocktail. Her chest pain resolved, but recurred again earlier today. She took another nitroglycerin and the chest pain resolved. She denies dyspnea, palpitations, syncope, or ankle edema. Certain portions of this document may have been dictated utilizing voice recognition technology. Inherent to this technology, typographical and grammatical errors may exist. As much as I am diligent to identify and correct these mistakes, some errors may remain in the document. Vitals Last set of Vitals Signs Vital Signs 06/15/21 16:00 Temp 36.5 Pulse 68 Resp 20 B/P (MAP) 118/60 (79) Pulse Ox 100 O2 Delivery Nasal Cannula O2 Flow Rate 3.00 Labs Labs Laboratory Tests 06/15/21 05:34 Exam Vital Signs Vital Signs Date Time Temp Pulse Resp B/P (MAP) Pulse Ox O2 Delivery O2 Flow Rate FiO2 06/15/21 16:00 36.5 68 20 118/60 (79) 100 Nasal Cannula 3.00 Physical Exam General: Alert. No acute distress. She is obese. Eye: No xanthelasma. HENT: Normocephalic. Neck: Jugular venous pressure does not appear elevated. Respiratory: Lungs are clear to auscultation. Respirations are non-labored. Breath sounds are equal. Symmetrical chest wall expansion. Cardiovascular: Normal rate. Regular rhythm. 2/6 systolic ejection murmur. No gallop. No edema. Gastrointestinal: Soft. Normal bowel sounds. Skin: Warm. Dry. She has extensive areas of excess skin due to significant weight loss. Neurologic: Alert and oriented to person, place, time. Cranial nerves 3-11 grossly intact. Psychiatric: Cooperative. Appropriate mood & affect. Labs Laboratory Tests Test 06/15/21 05:34 Range/Units Sodium Level 137 135-145 MMOL/L Potassium Level 3.8 3.6-5.0 MMOL/L Chloride Level 102 98-107 MMOL/L Carbon Dioxide Level 24 21-32 MMOL/L Anion Gap 11 5-14 MMOL/L Blood Urea Nitrogen 30 H 7-18 MG/DL Creatinine 1.36 H 0.60-1.30 MG/DL Estimat Glomerular Filtration Rate 39 BUN/Creatinine Ratio 22 Glucose Level 93 70-105 MG/DL Calcium Level 9.3 8.5-10.1 MG/DL Phosphorus Level 2.3 2.3-4.7 MG/DL Magnesium Level 2.3 1.6-2.4 MG/DL Radiology ECHOCARDIOGRAM (06/15/2021): 1. This is a technically difficult study due to poor image quality secondary to patient's body habitus and vertical orientation of the heart. 2. Left ventricle: The cavity size is normal. There is mild concentric hypertrophy. Systolic function is moderately reduced. The estimated ejection fraction is 30-35%. Doppler parameters are consistent with abnormal left ve ntricular relaxation (grade 1 diastolic dysfunction). 3. Regional wall motion abnormality: Hypokinesis of the mid-apical anterior, apical inferior, apical septal, apical lateral, and apical myocardium. 4. Right ventricle: The cavity size is normal. Systolic function is mildly reduced. TAPSE 1.3 cm. 5. Left atrium: The left atrium is moderately to severely dilated with a volume index ranging from 44-49 mL/m. 6. Right atrium: The right atrium is severely dilated with an area of 38 cm. 7. Aortic valve: There may be at least mild aortic stenosis with a mean gradient of 11 mmHg, a peak gradient of 22 mmHg and a peak velocity of 2.3 m/s. There is mild aortic regurgitation with a pressure half-time of 580 ms. 8. Inferior vena cava: The vessel is dilated. The respirophasic diameter changes are in the normal range (greater than or equal to 50%). These findings are consistent with mildly elevated right atrial pressure (8 mmHg). 9. Pulmonary arteries: The estimated pulmonary artery systolic pressure is 30 mmHg assuming a right atrial pressure 8 mmHg. 10. Compared to the previous report from 05/13/2021, there has been a significant decline in the left ventricular systolic function. Diagnosis/Problems Diagnosis/Problems (1) ST elevation myocardial infarction (STEMI) of anterior wall, initial episode of care Assessment & Plan: She presented with an acute anterior ST elevation myocardial infarction. She was taken for emergency cardiac catheterization. She was treated with 2 drug-eluting stents to the mid left anterior descending coronary artery. She had chest discomfort last evening and again today. There were no new electrocardiogram changes. I will start her on long-acting nitrates. She should continue on aspirin, ticagrelor and statin medication. Due to her left ventricular dysfunction, I will change her metoprolol tartrate over to metoprolol succinate. I was planning to send her home today but due to recurrent chest discomfort, I will hold her overnight with the medication changes outlined. If she has no further chest discomfort, she may be able to be discharged home tomorrow. (2) Cardiomyopathy Assessment & Plan: She has moderate left ventricular systolic dysfunction following the acute myocardial infarction. This is new finding in the patient. She just had an echocardiogram 1 month ago that showed a normal ejection fraction. She has been taking metoprolol tartrate at home which I will change to metoprolol succinate as above. She was also on hydralazine. I will add long-acting nitrates to the hydralazine. She is not a good candidate for SANGEETHA inhibitor, ARB or aldosterone antagonist due to poor renal function. Her chest x-ray from today did not show any evidence of heart failure. She may be ready for discharge to home tomorrow. (3) Coronary artery disease with unstable angina pectoris Assessment & Plan: As above. (4) Paroxysmal atrial fibrillation Status: Chronic Assessment & Plan: She has a previous history of paroxysmal atrial fibrillation. She is not currently on any anticoagulation. There have been no signs of recurrent atrial fibrillation here in the hospital. (5) Nonrheumatic aortic valve stenosis with regurgitation Assessment & Plan: Her echocardiogram shows mild aortic stenosis. This will need to be followed longitudinally. (6) Primary hypertension Assessment & Plan: As above, I have made some adjustments to her antihypertensive medication in light of the acute myocardial infarction and cardiomyopathy. (7) Mixed hyperlipidemia Assessment & Plan: She was on the maximum dose of atorvastatin at home. Her LDL level is under excellent control. JAN BOYLE JR, MD Jun 15, 2021 10:15
--- NOTE | 2021-06-15 10:50 | Diagnostic Imaging Report ---
EXAMINATION: PA and lateral chest at 10:31 a.m. INDICATION: Chest pain. FINDINGS: The heart is enlarged, but the heart does not seem as prominent as noted on the prior exam of 08/29/2019. The hilar vessels seem similar to the prior exam, and there is no evidence for failure at this time. There is no sign of pneumonia or of a significant pleural effusion either. The mediastinum is not widened. The osseous structures are intact. IMPRESSION: There is cardiomegaly, but the heart does seem less prominent than on the prior study. There is no acute cardiopulmonary abnormality noted. Dictated by: Dictated on workstation # [id number]
[2021-06-15] MEDS ORDERED: DOCU-26 PO (12:14)
[2021-06-15] MEDS ORDERED: OXYC1TAB16 PO (12:16)
[2021-06-15] MEDS: NITROGLYCERIN 0.4 MG SL TABS BTL 25'S SL PRN (14:42)
[2021-06-15] MEDS ORDERED: LIDOCAINE 1% INJ 20 ML 20 ML VIAL INJ ONE (17:40)
[2021-06-15] MEDS ORDERED: NITRO DRIP 25000 MCG/D5W 250 ML BTL IV ONE (17:40)
[2021-06-15] MEDS ORDERED: HEParin (CATH LAB) 2,000 UNIT/1,000 ML BAG IV ONE (17:40)
[2021-06-15] MEDS ORDERED: ISOSORBIDE MONONITRATE 60 MG (IMDUR) TAB PO NR (18:00)
[2021-06-15] MEDS: hydrALAZINE (APRESOLINE) 25 MG TAB PO SCH (20:48)
[2021-06-15] MEDS: LATANOPROST 0.005% (XALATAN) OPHTH SOLN 2.5 ML OU SCH (20:48)
[2021-06-16 03:52] VITALS: BP 92/55
[2021-06-16] MEDS: oxyCODONE/APAP 7.5-325 MG (PERCOCET 7.5) TABLET PO PRN (04:43)
[2021-06-16 05:47] LABS: BASOPHILS % (AUTO) 0 % (0-10); EOSINOPHILS % (AUTO) 5 % (0-10); HEMATOCRIT 28 % (35-52); HEMOGLOBIN 9.1 g/dL (11.5-16.0); LYMPHOCYTES % (AUTO) 31 % (12-44); MEAN CORPUSCULAR HEMOGLOBIN 32 pg (25-34); MEAN CORPUSCULAR HGB CONC 33 g/dL (32-36); MEAN CORPUSCULAR VOLUME 96 fL (80-99); MEAN PLATELET VOLUME 10.1 fL (9.0-12.2); MONOCYTES % (AUTO) 9 % (0-12); NEUTROPHILS # (AUTO) 4.1 10^3/uL (1.8-7.8); NEUTROPHILS % (AUTO) 55 % (42-75); PLATELET COUNT 177 10^3/uL (130-400); WHITE BLOOD COUNT 7.4 10^3/uL (4.3-11.0)
[2021-06-16 05:48] LABS: EOSINOPHILS # (AUTO) 0.4 10^3/uL (0.0-0.3); LYMPHOCYTES # (AUTO) 2.3 10^3/uL (1.0-4.0); MONOCYTES # (AUTO) 0.7 10^3/uL (0.0-1.0)
[2021-06-16 05:58] LABS: POTASSIUM 3.7 MMOL/L (3.6-5.0)
[2021-06-16 05:59] LABS: CALCIUM 8.5 MG/DL (8.5-10.1)
[2021-06-16] MEDS: KCL 20 MEQ TAB (K-DUR) PO SCH (06:01)
[2021-06-16] MEDS: POTASSIUM CL 10MEQ/50ML IVPB 50 ML IV SCH (06:01)
[2021-06-16 06:03] LABS: CREATININE SERUM 1.59 MG/DL (0.60-1.30)
[2021-06-16] MEDS: LEVOTHYROXINE 100 MCG (LEVOTHROID) TAB PO SCH (06:56)
[2021-06-16] MEDS: MULTIVIT W/MINERALS TAB (THERAGRAN M) PO SCH (06:56)
[2021-06-16] MEDS: LEVOTHYROXINE 75 MCG (LEVOTHROID) TABLET PO SCH (06:56)
[2021-06-16] MEDS: MAGNESIUM 1 GM/100 ML IVPB 100 ML IV SCH (07:24)
[2021-06-16 07:31] VITALS: BP 111/56
[2021-06-16] MEDS: UMECLIDINIUM BROMIDE (INCRUSE ELLIPTA) 7'S IH SCH (07:52)
[2021-06-16] MEDS: RT--FLUTICASONE/SALMETEROL 232-14 (AIRDUO RespiCLICK) IH SCH ×2 (07:52→21:34)
[2021-06-16] MEDS ORDERED: meTOproloL SUCCINATE 50 MG (TOPROL XL) TAB PO SCH (09:00)
[2021-06-16] MEDS ORDERED: ISOSORBIDE MONONITRATE 60 MG (IMDUR) TAB PO SCH (09:00)
--- NOTE | 2021-06-16 09:47 | Cardiology Progress Note ---
Subjective Date Seen by Provider: Jun 16, 2021 Time Seen by Provider: 08:15 Subjective/Events-last exam Patient is sitting up in chair, denies any further episode of chest pain. Noted to have significant bradycardia on telemetry last night while sleeping. Review of Systems General: No Chills, No Night Sweats; Fatigue; No Malaise, No Appetite, No Other HEENT: No Head Aches, No Visual Changes, No Eye Pain, No Ear Pain, No Dysphasia, No Sinus Congestion, No Post Nasal Drip, No Sore Throat, No Other Pulmonary: Dyspnea; No Cough, No Pleuritic Chest Pain, No Other Cardiovascular: No: Chest Pain, Palpitations, Orthopnea, Paroxysmal Noc. Dyspnea, Edema, Lt Headedness, Other Objective-Cardiology Exam Last Set of Vital Signs Vital Signs 06/16/21 06/16/21 06/16/21 07:31 11:19 12:52 Temp 36.4 Pulse 53 Resp 20 B/P (MAP) 117/58 (77) Pulse Ox 94 O2 Delivery Room Air O2 Flow Rate 3.00 I&O Intake and Output 06/16/21 00:00 Intake Total 1330 ml Output Total 600 ml Balance 730 ml Intake Oral 1330 ml Output Urine Total 600 ml # Voids 4 # Bowel Movements 1 General: Alert, Oriented X3, Cooperative HEENT: Atraumatic, PERRLA Neck: Supple, No JVD, No Thyromegaly Lungs: Clear to Auscultation, Normal Air Movement Heart: Regular Rate, Normal S1, Normal S2, No Murmurs Abdomen: Normal Bowel Sounds, Soft, No Tenderness, No Hepatosplenomegaly, No Masses Extremities: No Clubbing, No Cyanosis, No Edema, Normal Pulses, No Tenderness/Swelling Skin: No Rashes, No Breakdown, No Significant Lesion Neuro: Normal Gait, Normal Speech, Strength at 5/5 X4 Ext, Normal Tone, Sen sation Intact Psych/Mental Status: Mental Status NL, Mood NL Results Lab Laboratory Tests 06/16/21 05:23 A/P-Cardiology Admission Diagnosis STEMI CAD HTN HLP Assessment/Plan Anterior wall STEMI, underwent emergent cardiac catheterization on 06/13/20 with Xience Skypoint 3.5x15mm stent to mid LAD and 3.5x15mm stent to distal LAD placed between 2 previous stents. Coronary artery disease, history of stent to LAD using 3.012 mm Ion stent to the LAD. Cardiac catheterization done in July 2015 revealed patent stent in the LAD with otherwise nonobstructive disease. Cardiac catheterization done July 12, 2018 revealed patent stent in the mid LAD with mild disease at the mid to distal LAD nonobstructive disease Underwent LHC with 2 stents to LAD, Xience Skypoint 3.5x15mm stent to mid LAD and 3.5x15mm stent to distal LAD, maintained on Brilinta and ASA. Chest pain, chronic stable angina, started on Isosorbide during this hospitalization. Bradycardia, had significant bradycardia with HR in the 30's while asleep. Likely RAVEN, will need sleep study as outpatient. Beta horacio discontinued, will continue to monitor telemetry. Congestive heart failure status post episode of acute left ventricular systolic dysfunction with EF 30-35%, deterioration compared to previous echo. Unable to tolerate beta horacio d/t bradycardia. Will start losartan 25mg daily. Questionable episode of paroxysmal atrial fibrillation during hospitalization, had an EKG showing sinus rhythm with frequent PACs, no definite atrial fibrillation noted during the hospitalization. Intolerance to aggressive anticoagulation due to anemia and GI bleed. Hypertension, has been hypotensive, beta horacio was discontinued d/t bradycardia, I will d/c hydralazine, start low dose losartan. Hyperlipidemia,maintained on statin, continue to monitor. Mild bilateral carotid stenosis,continue to monitor as outpatient. COPD, oxygen dependent, had seen Dr. Perkins in the past, follows with primary care physician. History of deep venous thrombosis, Xarelto was discontinued by Dr. Ramesh due to significant anemia Hypothyroidism, continue to monitor thyroid function test. 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 Obesity. BMI is 51. Patient was educated again on weight loss. History of tonsillectomy, colonoscopy. DNC procedure. Skin cancer of face- patient to undergo excision to be done by Dr. Lange Patient was seen and evaluated with Lyndsay, examination performed, management plan was discussed, agree with the current scribed note, I made few changes to the note using Italic font Patient was seen and evaluated, feeling better, no further episodes of chest pain Noted to have episodes of bradycardia, borderline hypotensive, will hold beta- blockers and continue to monitor tolerance and response. Monitor for chest pain. Supervisory-Addendum Brief Supervisory Addendum Participated in pt care: history, MDM, physical Personally performed: exam, history, MDM Care discussed with: PA Results interpretation: Verified all documentation LYNDSAY BETANCUR Jun 16, 2021 09:47 ALLY MARINO MD Jun 16, 2021 13:54
[2021-06-16] MEDS: TICAGRELOR 90 MG TABLET (BRILINTA) PO SCH ×2 (10:19→20:10)
[2021-06-16] MEDS: hydrALAZINE (APRESOLINE) 25 MG TAB PO SCH ×2 (10:19→23:34)
[2021-06-16] MEDS: FUROSEMIDE 20 MG (LASIX) TAB PO SCH (10:19)
[2021-06-16] MEDS: ALLOPURINOL 100 MG (ZYLOPRIM) TAB PO SCH (10:20)
[2021-06-16] MEDS: ASPIRIN E.C. 81 MG (ECOTRIN) TAB PO SCH (10:20)
[2021-06-16] MEDS: morphine ER 30 MG (MS CONTIN) TAB PO SCH ×2 (10:20→20:11)
[2021-06-16 11:19] VITALS: BP 117/58
[2021-06-16 16:12] VITALS: BP 95/51
[2021-06-16 19:30] VITALS: BP 106/58
[2021-06-16] MEDS: LATANOPROST 0.005% (XALATAN) OPHTH SOLN 2.5 ML OU SCH (20:11)
[2021-06-17] VITALS: BP 97/56
[2021-06-17 03:50] VITALS: BP 110/53
[2021-06-17] MEDS: MULTIVIT W/MINERALS TAB (THERAGRAN M) PO SCH (05:52)
[2021-06-17] MEDS: LEVOTHYROXINE 100 MCG (LEVOTHROID) TAB PO SCH (05:52)
[2021-06-17] MEDS: LEVOTHYROXINE 75 MCG (LEVOTHROID) TABLET PO SCH (05:52)
[2021-06-17 06:51] LABS: POTASSIUM 3.7 MMOL/L (3.6-5.0)
[2021-06-17 06:53] LABS: CALCIUM 8.8 MG/DL (8.5-10.1)
[2021-06-17] MEDS: POTASSIUM CL 10MEQ/50ML IVPB 50 ML IV SCH (06:55)
[2021-06-17] MEDS: KCL 20 MEQ TAB (K-DUR) PO SCH (06:55)
[2021-06-17 06:57] LABS: CREATININE SERUM 1.55 MG/DL (0.60-1.30)
[2021-06-17 06:59] LABS: MAGNESIUM 2.3 MG/DL (1.6-2.4)
[2021-06-17] MEDS: MAGNESIUM 1 GM/100 ML IVPB 100 ML IV SCH (07:03)
[2021-06-17] MEDS: RT--FLUTICASONE/SALMETEROL 232-14 (AIRDUO RespiCLICK) IH SCH (07:53)
[2021-06-17] MEDS: UMECLIDINIUM BROMIDE (INCRUSE ELLIPTA) 7'S IH SCH (07:53)
[2021-06-17 08:00] VITALS: BP 118/64
[2021-06-17] MEDS: ASPIRIN E.C. 81 MG (ECOTRIN) TAB PO SCH (08:58)
[2021-06-17] MEDS: ALLOPURINOL 100 MG (ZYLOPRIM) TAB PO SCH (08:58)
[2021-06-17] MEDS: TICAGRELOR 90 MG TABLET (BRILINTA) PO SCH (08:58)
[2021-06-17] MEDS: FUROSEMIDE 20 MG (LASIX) TAB PO SCH (08:58)
[2021-06-17] MEDS: morphine ER 30 MG (MS CONTIN) TAB PO SCH (08:59)
[2021-06-17] MEDS ORDERED: ISOSORBIDE MONONITRATE 30 MG (IMDUR) TAB PO SCH (09:00)
--- NOTE | 2021-06-17 11:58 | Cardiology Discharge Summary ---
Discharge Summary Hospital Course Hospital Course Date of Admission: Jun 13, 2021 at 21:13 Admission Diagnosis : Family Physician/Provider: Aden Mckeon MD Date of Discharge: 06/17/21 Discharge Diagnosis: [ STEMI CAD HTN HLP Hospital Course: [ ] Labs and Pending Lab Test: Laboratory Tests 06/17/21 06:08: Sodium Level 137, Potassium Level 3.7, Chloride Level 100, Carbon Dioxide Level 28, Anion Gap 9, Blood Urea Nitrogen 35H, Creatinine 1.55H, Estimat Glomerular Filtration Rate 33, BUN/Creatinine Ratio 23, Glucose Level 95, Calcium Level 8.8, Magnesium Level 2.3 Microbiology 06/13/21 MRSA Screen - Final, Complete MRSA not isolated Home Meds Active Isosorbide Mononitrate ER (Isosorbide Mononitrate) 30 Mg Tab.er.24h 30 Mg PO DAILY 30 Days Atorvastatin Calcium 80 Mg Tablet 80 Mg PO HS 30 Days Brilinta (Ticagrelor) 90 Mg Tablet 90 Mg PO BID 30 Days Reported Stool Softener (Docusate Sodium) 100 Mg Capsule 100 Mg PO DAILY PRN Iprat-Albut 0.5-3(2.5) mg/3 ml (Ipratropium/Albuterol Sulfate) 3 Ml Ampul.neb 1 Vial IH BID Spiriva (Tiotropium Brea) 1 Inh Aerp 2 Puff IH DAILY Budesonide-Formoterol 160-4.5 (Budesonide/Formoterol Fumarate) 10.2 Gm Hfa.aer.ad 2 Puff IH BID Centrum Silver Women Tablet (Multivits-Min/Iron/FA/Lutein) 1 Each Tablet 1 Each PO DAILY Furosemide 20 Mg Tablet 20 Mg PO DAILY Allopurinol 100 Mg Tablet 100 Mg PO DAILY Potassium Chloride 10 Meq Tab.er.prt 10 Meq PO DAILY Morphine Sulfate ER (Morphine Sulfate) 30 Mg Tablet.er 30 Mg PO BID Lumigan (Bimatoprost) 2.5 Ml Drops 1 Drop OU HS Oxycodon-Acetaminophen 7.5-325 (Oxycodone HCl/Acetaminophen) 1 Each Tablet 1 Ea PO Q8H PRN Levothyroxine Sodium 175 Mcg Tablet 175 Mcg PO DAILY Aspirin EC (Aspirin) 81 Mg Tablet.dr 81 Mg PO DAILY Assessment/Pt DC Instructions Anterior wall STEMI, underwent emergent cardiac catheterization on 06/13/20 with Xience Skypoint 3.5x15mm stent to mid LAD and 3.5x15mm stent to distal LAD placed between 2 previous stents. Coronary artery disease, history of stent to LAD using 3.012 mm Ion stent to the LAD. Cardiac catheterization done in July 2015 revealed patent stent in the LAD with otherwise nonobstructive disease. Cardiac catheterization done July 12, 2018 revealed patent stent in the mid LAD with mild disease at the mid to distal LAD nonobstructive disease Underwent LHC with 2 stents to LAD, Xience Skypoint 3.5x15mm stent to mid LAD and 3.5x15mm stent to distal LAD, maintained on Brilinta and ASA. Chest pain, chronic stable angina, started on Isosorbide during this hospitalization. Denies any further episode of chest pain. Bradycardia, had significant bradycardia with HR in the 30's while asleep. Likely RAVEN, will need sleep study as outpatient, will arrange through our office. Beta horacio discontinued. Congestive heart failure status post episode of acute left ventricular systolic dysfunction with EF 30-35%, deterioration compared to previous echo. Unable to tolerate beta horacio d/t bradycardia, unable to tolerate SANGEETHA-I or ARB at this time secondary to hypotension and underlying renal function. Questionable episode of paroxysmal atrial fibrillation during hospitalization, h ad an EKG showing sinus rhythm with frequent PACs, no definite atrial fibrillation noted during the hospitalization. Intolerance to aggressive anticoagulation due to anemia and GI bleed. Hypertension, has been hypotensive, beta horacio was discontinued d/t bradycardia, hydralazine discontinued and Isosorbide decreased to 30mg, continue to monitor Hyperlipidemia,maintained on statin, continue to monitor. Mild bilateral carotid stenosis,continue to monitor as outpatient. COPD, oxygen dependent, had seen Dr. Perkins in the past, follows with primary care physician. History of deep venous thrombosis, Xarelto was discontinued by Dr. Ramesh due to significant anemia Hypothyroidism, continue to monitor thyroid function test. 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 Obesity. BMI is 51. Patient was educated again on weight loss. History of tonsillectomy, colonoscopy. DNC procedure. Skin cancer of face- patient to undergo excision to be done by Dr. Lange Discharge Diet: Low Sodium Diet Activity as Tolerated: Yes Discharge Physical Examination Allergies: Coded Allergies: ceftriaxone (Verified Allergy, Unknown, pt has received Zosyn w/o issue, 05/09/19) ibuprofen (Verified Allergy, Unknown, PT TAKES ASA AT HOME, 08/02/17) PER MED REC diazepam (Verified Adverse Reaction, Severe, 12/04/18) General Appearance: No Apparent Distress HEENT: PERRL/EOMI, Normal ENT Inspection Respiratory: Chest Non Tender, Lungs Clear, Normal Breath Sounds Cardiovascular: Regular Rate, Rhythm, No Edema, No Gallop, No Murmur Gastrointestinal: Non Tender, Soft Extremity: Non Tender, No Calf Tenderness Skin: Normal Color, Warm/Dry Neurologic/Psychiatric: Alert, Oriented x3, automatic buffer II-XII Norm as Tested Clinical Quality Measures AMI/AHF: ASA po 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
[2021-06-17] MEDS ORDERED: TICA90TA PO (12:03)
[2021-06-17] MEDS ORDERED: ISOS30TA82 PO (12:03)
[2021-06-17] MEDS ORDERED: ATOR80TA76 PO (12:03)
== END 2021-06-17 13:30 | disposition home or self-care (01) | DRG 247 ==
LOC: EDUNIT# 18:23 → ER 18:26 → CATH 19:17 → ICU 21:13 → 4TH 06-14 11:44
PROVIDERS: ADMIT Internal Medicine Cardiovascular Disease; ATTEND Internal Medicine Cardiovascular Disease
PROC: 027035Z Dilation of Coronary Artery, One Artery with Two Drug-eluting Intraluminal Devices, Percutaneous Approach (ICD-10-PCS; principal; 2021-06-13)
PROC: 4A023N7 Measurement of Cardiac Sampling and Pressure, Left Heart, Percutaneous Approach (ICD-10-PCS; 2021-06-13)
PROC: B2111ZZ Fluoroscopy of Multiple Coronary Arteries using Low Osmolar Contrast (ICD-10-PCS; 2021-06-13)
PROC: B2151ZZ Fluoroscopy of Left Heart using Low Osmolar Contrast (ICD-10-PCS; 2021-06-13)
DX: I21.09 ST elevation (STEMI) myocardial infarction involving other coronary artery of anterior wall (principal); I42.9 Cardiomyopathy, unspecified; I48.92 Unspecified atrial flutter; J96.11 Chronic respiratory failure with hypoxia; Z68.43 Body mass index [BMI] 50.0-59.9, adult; I25.110 Atherosclerotic heart disease of native coronary artery with unstable angina pectoris; I35.0 Nonrheumatic aortic (valve) stenosis; Z79.82 Long term (current) use of aspirin; Z79.899 Other long term (current) drug therapy; Z95.5 Presence of coronary angioplasty implant and graft; Z86.718 Personal history of other venous thrombosis and embolism; I25.2 Old myocardial infarction; E78.00 Pure hypercholesterolemia, unspecified; K57.90 Diverticulosis of intestine, part unspecified, without perforation or abscess without bleeding; G89.29 Other chronic pain; M54.9 Dorsalgia, unspecified; M19.90 Unspecified osteoarthritis, unspecified site; E03.9 Hypothyroidism, unspecified; H40.9 Unspecified glaucoma; Z85.828 Personal history of other malignant neoplasm of skin; Z85.038 Personal history of other malignant neoplasm of large intestine; J44.9 Chronic obstructive pulmonary disease, unspecified; D63.8 Anemia in other chronic diseases classified elsewhere; E66.01 Morbid (severe) obesity due to excess calories; E11.65 Type 2 diabetes mellitus with hyperglycemia; Z99.81 Dependence on supplemental oxygen; E11.40 Type 2 diabetes mellitus with diabetic neuropathy, unspecified; I48.0 Paroxysmal atrial fibrillation; E78.2 Mixed hyperlipidemia; I50.9 Heart failure, unspecified; I11.0 Hypertensive heart disease with heart failure; G47.33 Obstructive sleep apnea (adult) (pediatric)
CPT/HCPCS: 36415; 71046; 80048; 80053; 80061; 83036; 83735; 83874; 84100; 84484; 85007; 85025; 85027; 85610; 85730; 87081; 93005; 93041; 93306; 93458; 94640; 94760; 96374

== ENCOUNTER 2021-07-08 14:00 | Day surgery (SDC) | payer MEDICAID ==
[~2021-07-08] VITALS: Ht 157.4 cm; Wt 67.4 kg
[2021-07-08 12:31] VITALS: BP 154/100
[2021-07-08 12:40] LABS: HEMATOCRIT 36 % (35-52); HEMOGLOBIN 11.6 g/dL (11.5-16.0); MEAN CORPUSCULAR HEMOGLOBIN 31 pg (25-34); MEAN CORPUSCULAR HGB CONC 32 g/dL (32-36); MEAN CORPUSCULAR VOLUME 97 fL (80-99); MEAN PLATELET VOLUME 9.3 fL (9.0-12.2); PLATELET COUNT 254 10^3/uL (130-400); WHITE BLOOD COUNT 9.6 10^3/uL (4.3-11.0)
--- NOTE | 2021-07-08 12:45 | Diagnostic Imaging Report ---
INDICATION: Sinus syndrome. EXAMINATION: Chest from 07/08/2021. COMPARISON: 07/16/2019. FINDINGS: Frontal chest. There is marked cardiomegaly with the heart shifted towards the right perhaps due to atelectasis in the right lung. There is possible infiltrate at the left lung base. Pulmonary vasculature is prominent. There is no pneumothorax. There are no effusions. IMPRESSION: 1. Possible left base infiltrate. 2. Suspected volume loss in the right hemithorax given shift of the heart towards the right. Some of this could be due to rotation as well. 3. Pulmonary vascular congestion. Dictated by: Dictated on workstation # [id number]
[2021-07-08 12:51] LABS: PROTHROMBIN TIME PATIENT 13.2 SEC (12.2-14.7)
[2021-07-08 12:56] LABS: ALBUMIN 3.7 GM/DL (3.2-4.5); BILIRUBIN,TOTAL 0.4 MG/DL (0.1-1.0); CREATININE SERUM 1.19 MG/DL (0.60-1.30); POTASSIUM 3.6 MMOL/L (3.6-5.0); TOTAL PROTEIN 7.3 GM/DL (6.4-8.2)
--- NOTE | 2021-07-08 13:07 | Conscious Sedation/ASA ---
Conscious Sedation Pre-Proced Time 13:07 ASA Score 3 For ASA 3 and 4: Consider anesthesia and medical clearance. Also, for patients with a history of failed moderate sedation consider anesthesia. Airway Lungs Heart ASA score ASA 1: a normal healthy patient ASA 2: a patient with a mild systemic disease (mid diabetes, controlled hypertension, obesity x ASA 3: a patient with a severe systemic disease that limits activity (angina, COPD, prior Myocardial infarction) ASA 4: a patient with an incapacitating disease that is a constant threat to life (CHF, renal failure) ASA 5: a moribund patient not expected to survive 24 hrs. (ruptured aneurysm) ASA 6: a declared brain- patient whose organs are being harvested. For emergent operations, add the letter E after the classification Mallampati Classification Grade 3 Sedation Plan Analgesia, Amnesia, Plan communicated to team members, Discussed options with patient/fam, Discussed risks with patient/fam The patient is an appropriate candidate to undergo the planned procedure, sedation, and anesthesia. The patient immediately re-assessed prior to indication. ALLY MARINO MD Jul 08, 2021 13:07
[~2021-07-08 14:00] MED LIST changes: +ALLO100T PO; +ATOR40TA70 PO; +BUDE10.26 IH; +DOCU-26 PO; +FURO20TA4 PO; +HEParin (CATH LAB) 1,000 ML IV ONE; +HYDR-3923 PO; +IPRA3AMP31 IH; +LIDOCAINE 1% INJ 20 ML VIAL ONE; +LOSA25TA2 PO; +MIDAZOLAM 5 MG/5 ML (VERSED) VIAL ONE; +MULT-1021 PO; +NS (IVPB) 50 ML ONE; +NS IV 1000 ML 1,000 ML IV ONE; +NS IV 1000 ML 1,000 ML ONE; +NS IV 500 ML 500 ML ONE; +OXYC1TAB16 PO; +TICA90TA PO; +ceFAZolin INJECTION 1,000 MG ONE; +ceFAZolin INJECTION 1,000 MG VIAL IV ONE; +fentaNYL INJ 100 MCG/2 ML AMP ONE
[2021-07-08] MEDS ORDERED: MIDAZOLAM 5 MG/5 ML (VERSED) VIAL ONE (14:14)
[2021-07-08] MEDS ORDERED: fentaNYL INJ 100 MCG/2 ML AMP ONE (14:14)
[2021-07-08] MEDS ORDERED: PATIENT MAY USE OWN MEDS, ALL PO SCH (15:45)
[2021-07-08] MEDS ORDERED: DOCUSATE SODIUM 100 MG (COLACE) CAP PO PRN (15:45)
[2021-07-08] MEDS ORDERED: NS IV 1000 ML 1,000 ML IV SCH (15:45)
--- NOTE | 2021-07-08 15:45 | Permanent Pacemaker Implant ---
Dual Chamber Pacemaker Implant PROCEDURE PHYSICIAN: Ally De Leon DUAL CHAMBER PACEMAKER IMPLANTATION: DATE OF PROCEDURE: 07/08/21 INDICATION: PREOPERATIVE DIAGNOSIS: Severe bradycardia, sinus node dysfunction POSTOPERATIVE DIAGNOSIS: Severe bradycardia, sinus node dysfunction HISTORY: Dual-chamber permanent pacemaker was recommended. PROCEDURE PERFORMED: 1. Dual-chamber permanent pacemaker implantation. 2. Fluoroscopy. 3. Central venous access. ANESTHESIA: Local anesthesia, conscious sedation. COMPLICATIONS: None. ESTIMATED BLOOD LOSS:20 mL. SPECIMENS: None. ORAL ANTICOAGULATION: None. FLUOROSCOPY TIME: FLUOROSCOPY DOSE: CONTRAST DOSE: PROCEDURE DETAILS: 66-year-old lady with history of paroxysmal atrial fibrillation sinus node dysfunction, has been having episodes of severe bradycardia with heart rate in the 40s, escape junctional rhythm, seen in my office with a heart rate 40. Had coronary artery disease. We decided to proceed with dual-chamber pacemaker. Patient have significant weight loss and atelectasis and kyphosis which affected her anatomy. Patient was placed on the cardiac catheterization laboratory, local esthesia applied, after multiple attempt I was unable to access the subclavian vein, venogram was done through the left arm then I was able to have a single access in the left subclavian. I was concerned about the anatomy I placed 5 Uzbek sheath in the left subclavian vein and did angiogram to the left subclavian artery and followed to the superior vena cava and right heart chambers which was showing significant displacement of all the heart chambers to the right side of the chest which changed the whole anatomy. Skin pocket was made and I placed the first sheath and then advanced a 58 cm ventricular lead Medtronic to the right ventricle, good sensing and capture activity was noted and the sheath was removed and placed a second sheath and placed an atrial lead also Medtronic lead and good sensing and capture activity after removing both sheath the leads were secured in place. Then retested the lead with good sensing and capture activity. Direct patch was used and placed in the pocket with the Medtronic device, testing the device showing excellent sensing and capture activity. The wound was then closed using 2 layers. The first layer was interrupted 2-0 absorbable Vicryl suture. The last layer was a single subcuticular layer with 4- 0 Vicryl suture. Half inch Steri-Strips and a small dressing were then applied to the wound. The patient tolerated the procedure well and was returned to the recovery room in stable condition with stable vital signs. DEVICE INFORMATION: ANTHONY XT MRI [id number] RA LEAD: [id number] RV LEAD: [id number] PER-OPERATIVE DEVICE INTERROGATION: Atrial lead, threshold 0.4 ms at 0.5 V. Impedance 361, P wave 1.7 mV Ventricular lead, threshold 0.4 ms at 0.625 V, impedance 646, R wave 18.1. IMMEDIATE POSTOPERATIVE DEVICE INTERROGATION: No change PLAN: The patient transferred to the ICU. We will continue with two more doses of IV antibiotics. We will check a chest x-ray and interrogate the device in the morning. The patient will continue on oral antibiotics for 5 days. CONCLUSION: Successful dual chamber pacemaker implantation with no complication FINAL DIAGNOSIS: Sinus node dysfunction Intermittent complete heart block Paroxysmal atrial fibrillation Coronary artery disease ALLY DE LEON MD Jul 08, 2021 15:45
--- NOTE | 2021-07-08 16:22 | Diagnostic Imaging Report ---
INDICATION: Status post pacemaker placement. Follow-up for pneumothorax. COMPARISON: Earlier the same day. FINDINGS: Two frontal radiographic views of the chest were obtained and show interval placement of left-sided dual-lead pacemaker. There is no evidence of pneumothorax on either side. Lungs are otherwise clear. There is no large effusion. Cardiac silhouette remains enlarged. Pulmonary vasculature is within normal limits. Osseous structures show no gross acute abnormalities. IMPRESSION: New left-sided dual-lead pacemaker. No pneumothorax. Dictated by: Dictated on workstation # [id number]
[2021-07-08 16:37] VITALS: BP 144/51
[2021-07-08] MEDS ORDERED: VANCOMYCIN 1 GM/NS 250 ML IVPB IV NR ×2 (18:00)
[2021-07-08] MEDS ORDERED: HOLD METFORMIN - RECEIVED CONTRAST 20 ML VIAL IV SCH (19:15)
[2021-07-08] MEDS ORDERED: IOHEXOL 350 MG/ML 100 ML (OMNIPAQUE 350) VIAL IV ONE (19:15)
[2021-07-08] MEDS ORDERED: NS 100 ML (IVPB) BAG IV ONE (19:15)
[2021-07-08 19:26] VITALS: BP 134/55
[2021-07-08] MEDS: TICAGRELOR 90 MG TABLET (BRILINTA) PO SCH (20:09)
[2021-07-08] MEDS: RT--FLUTICASONE/SALMETEROL 232-14 (AIRDUO RespiCLICK) IH SCH (20:17)
[2021-07-08] MEDS: RT-ALBUTEROL/IPRATROPIUM 3 ML (DUONEB) VIAL IH SCH (20:17)
[2021-07-08] MEDS ORDERED: oxyCODONE/APAP 5/325MG (PERCOCET 5) TABLET ONE (20:55)
[2021-07-08] MEDS: oxyCODONE/APAP 5/325MG (PERCOCET 5) TABLET PO PRN (20:56)
[2021-07-08] MEDS ORDERED: LATANOPROST 0.005% (XALATAN) OPHTH SOLN 2.5 ML OU SCH (21:00)
[2021-07-08] MEDS ORDERED: NON-FORMULARY MEDICATION 1 EA EA (Bimatoprost (Lumigan) 1 DROP) OU SCH (21:00)
[2021-07-08] MEDS ORDERED: NON-FORMULARY MEDICATION 1 EA EA (Budesonide/Formoterol Fumarate (Budesonide-Formoterol 16 IH SCH (21:00)
[2021-07-08] MEDS ORDERED: ceFAZolin INJECTION 1,000 MG in NS (IVPB) 50 ML IV SCH (22:00)
[2021-07-09] VITALS: BP 119/42
[2021-07-09] MEDS: oxyCODONE/APAP 5/325MG (PERCOCET 5) TABLET PO PRN ×2 (01:15→08:21)
[2021-07-09 04:08] VITALS: BP 99/49
[2021-07-09 05:01] LABS: HEMATOCRIT 31 % (35-52); HEMOGLOBIN 10.1 g/dL (11.5-16.0); MEAN CORPUSCULAR HEMOGLOBIN 31 pg (25-34); MEAN CORPUSCULAR HGB CONC 32 g/dL (32-36); MEAN CORPUSCULAR VOLUME 96 fL (80-99); MEAN PLATELET VOLUME 9.6 fL (9.0-12.2); PLATELET COUNT 203 10^3/uL (130-400)
[2021-07-09 05:40] LABS: ALBUMIN 3.1 GM/DL (3.2-4.5)
[2021-07-09 05:41] LABS: POTASSIUM 3.8 MMOL/L (3.6-5.0)
[2021-07-09 05:42] LABS: CALCIUM 8.9 MG/DL (8.5-10.1)
[2021-07-09 05:43] LABS: TOTAL PROTEIN 5.8 GM/DL (6.4-8.2)
[2021-07-09 05:45] LABS: BILIRUBIN,TOTAL 0.5 MG/DL (0.1-1.0)
[2021-07-09 05:46] LABS: CREATININE SERUM 1.13 MG/DL (0.60-1.30)
[2021-07-09] MEDS ORDERED: LEVOTHYROXINE 175 MCG TABLET PO SCH (06:30)
[2021-07-09] MEDS ORDERED: MULTIVIT W/MINERALS TAB (THERAGRAN M) PO SCH (07:00)
[2021-07-09] MEDS ORDERED: KCL 10 MEQ TAB (MICRO K) PO SCH (07:00)
[2021-07-09] MEDS ORDERED: NS 100 ML (IVPB) BAG IV ONE (07:45)
[2021-07-09] MEDS ORDERED: HOLD METFORMIN - RECEIVED CONTRAST 20 ML VIAL IV SCH (07:45)
[2021-07-09] MEDS ORDERED: IOHEXOL 350 MG/ML 100 ML (OMNIPAQUE 350) VIAL IV ONE (07:45)
[2021-07-09] MEDS ORDERED: CATHETER FLUSH 10 ML SYR IV PRN (07:45)
[2021-07-09 07:52] VITALS: BP 126/59
[2021-07-09] MEDS: RT-ALBUTEROL/IPRATROPIUM 3 ML (DUONEB) VIAL IH SCH (07:54)
[2021-07-09] MEDS: RT--FLUTICASONE/SALMETEROL 232-14 (AIRDUO RespiCLICK) IH SCH (07:55)
[2021-07-09] MEDS ORDERED: UMECLIDINIUM BROMIDE (INCRUSE ELLIPTA) 7'S IH SCH (08:00)
[2021-07-09] MEDS ORDERED: NS IV 1000 ML 1,000 ML ONE (08:12)
[2021-07-09] MEDS ORDERED: NS IV 1000 ML 1,000 ML IV SCH (08:15)
--- NOTE | 2021-07-09 08:52 | Cardiology Progress Note ---
Subjective Date Seen by Provider: Jul 09, 2021 Time Seen by Provider: 08:50 Subjective/Events-last exam Patient is laying down in bed. No new complaint. Had some discomfort at the pacemaker site. Review of Systems General: No Chills, No Night Sweats, No Fatigue, No Malaise, No Appetite, No Other HEENT: No Head Aches, No Visual Changes, No Eye Pain, No Ear Pain, No Dysphasia, No Sinus Congestion, No Post Nasal Drip, No Sore Throat, No Other Pulmonary: No Dyspnea, No Cough, No Pleuritic Chest Pain, No Other Cardiovascular: No: Chest Pain, Palpitations, Orthopnea, Paroxysmal Noc. Dyspnea, Edema, Lt Headedness, Other Objective-Cardiology Exam Last Set of Vital Signs Vital Signs 07/09/21 07/09/21 07:52 07:55 Temp 36.3 Pulse 60 Resp 18 B/P (MAP) 126/59 (81) Pulse Ox 99 O2 Delivery Nasal Cannula O2 Flow Rate 3.00 I&O Intake and Output 07/09/21 00:00 Intake Total 300 ml Balance 300 ml Intake Oral 300 ml # Voids 2 General: Alert, Oriented X3, Cooperative HEENT: Atraumatic, PERRLA Neck: Supple, No JVD, No Thyromegaly Lungs: Clear to Auscultation, Normal Air Movement Heart: Regular Rate, Normal S1, Normal S2, No Murmurs Abdomen: Normal Bowel Sounds, Soft, No Tenderness, No Hepatosplenomegaly, No Masses Extremities: No Clubbing, No Cyanosis, No Edema, Normal Pulses, No Tenderness/Swelling Skin: No Rashes, No Breakdown, No Significant Lesion Neuro: Normal Gait, Normal Speech, Strength at 5/5 X4 Ext, Normal Tone, Sensation Intact Psych/Mental Status: Mental Status NL, Mood NL Results Lab Laboratory Tests 07/08/21 12:31 07/09/21 04:37 A/P-Cardiology Admission Diagnosis Complete heart block Permanent pacemaker Coronary artery disease Hypertension Assessment/Plan Complete heart block, sinus node dysfunction, status post dual-chamber pacemaker implantation, patient had abnormal anatomy where her heart is on the right side of her chest but no dextrocardia was noted. And plan to evaluate CT of the chest. Starting IV fluid. After the CAT scan I am planning to discharge her home. Pacemaker site has small hematoma. No active bleeding at this point. Continue to monitor Coronary artery disease, multiple intervention. Maintained on aspirin and Brilinta. Hypertension, controlled, restart medication Morbid obesity, status post gastric sleeve, lost over 100 pounds, feeling better Hyperlipidemia, monitor lipids ALLY MARINO MD Jul 09, 2021 08:52
--- NOTE | 2021-07-09 08:53 | Discharge Inst-Post CATH ---
Discharge Inst-CATH/EP Problems Reviewed?: Yes Post Cardiac Cath/EP D/C Inst Follow Up/Plan Appointment with Dr. De Leon's office next week <b>CARDIAC CATH/EP PROCEDURE DISCHARGE INSTRUCTIONS</b> ACTIVITY * Go Home directly and rest. * Limit activity of the leg (or wrist if it was used) for 7 days including aerobics, swimming, jogging, bicycling, etc. * Restrict stair-climbing for 7 days if possible, if not, climb up with your non-cath leg, then bring together on the same step. * Avoid lifting, pushing, pulling or excessive movement of the affected extremity for 7 days. * Customary sexual activity may be resumed after 2 days-use caution not to use a position that strains or causes pain to the affected extremity. * No driving for 24 hours. * NO SMOKING. * Avoid straining for bowel movements for 7 days. * Gentle walking on level ground is allowed. * Returning to work will depend on the type of procedure and the results. Your doctor will discuss this with you. CALL YOUR DOCTOR FOR ANY OF THE FOLLOWING: *If bleeding from the puncture site occurs- Apply gentle pressure to site with clean cloth and call your doctor or EMS. * If a knot or lump forms under the skin, increases in size, or causes pain. * If bruising appears to be worsening or moving further down your leg instead of disappearing. * Temperature above 101 F. CARE OF YOUR GROIN INCISION; * Bruising or purple discoloration of the skin near the puncture site is common. * You may shower only, no bathtub bathing for 5 days. Be careful to avoid slipping as your leg may feel stiff. * If a closure device was used on your femoral artery, please see the attached guide regarding care of the device and your leg. * Leave dressing on FOR 24 hours. CARE OF YOUR WRIST INCISION; * Bruising or purple discoloration of the skin near the puncture site is common. * You may shower. * DO NOT submerge wrist. * Leave dressing on FOR 24 hours. ALLY DE LEON MD Jul 09, 2021 08:53
[2021-07-09] MEDS ORDERED: ISOSORBIDE MONONITRATE 30 MG (IMDUR) TAB PO SCH (09:00)
[2021-07-09] MEDS ORDERED: TIOTROPIUM BROMIDE (SPIRIVA) 5'S INHALER IH SCH (09:00)
[2021-07-09] MEDS ORDERED: ALLOPURINOL 100 MG (ZYLOPRIM) TAB PO SCH (09:00)
[2021-07-09] MEDS ORDERED: LOSARTAN 25 MG (COZAAR) TAB PO SCH (09:00)
[2021-07-09] MEDS ORDERED: NON-FORMULARY MEDICATION 1 EA EA (Multivits-Min/Iron/FA/Lutein (Centrum Silver Women Table PO SCH (09:00)
[2021-07-09] MEDS ORDERED: ASPIRIN E.C. 81 MG (ECOTRIN) TAB PO SCH (09:00)
[2021-07-09] MEDS ORDERED: FUROSEMIDE 20 MG (LASIX) TAB PO SCH (09:00)
[2021-07-09] MEDS ORDERED: NON-FORMULARY MEDICATION 1 EA EA (Potassium Chloride 10 MEQ) PO SCH (09:00)
--- NOTE | 2021-07-09 09:54 | Diagnostic Imaging Report ---
PROCEDURE: CT angiography of the chest with contrast. TECHNIQUE: Multiple contiguous axial images were obtained through the chest after uneventful bolus administration of intravenous contrast. 3D reconstructed CTA MIP acquisitions were also performed. Auto Exposure Controls were utilized during the CT exam to meet ALARA standards for radiation dose reduction. INDICATION: Evaluate pacemaker positioning. A pacemaker appears to be located within the right atrial appendage as well as the right ventricle. There is volume loss in the right hemithorax with shift of mediastinal structures to the right, similar to prior CTs. Heart is enlarged. Pulmonary arterial system remains prominent suggestive of pulmonary arterial hypertension. Aorta is without evidence of dissection or aneurysm. There is a small pericardial effusion. No pleural effusion is identified. No axillary, hilar or mediastinal lymphadenopathy is seen. No infiltrates, nodules or masses are seen. Upper abdomen is unremarkable. IMPRESSION: 1. Cardiomegaly and findings suggestive of pulmonary arterial hypertension. No acute feature is identified. 2. Pacemaker leads appear to be with tips in the right atrium and right ventricle. 3. Small pericardial effusion. 4. Chronic volume loss, right hemithorax with shift of the mediastinal structures to the right. Dictated by: Dictated on workstation # [id number]
[2021-07-09] MEDS: TICAGRELOR 90 MG TABLET (BRILINTA) PO SCH (10:02)
[2021-07-09 11:48] VITALS: BP 119/49
== END 2021-07-09 12:42 | disposition home or self-care (01) ==
LOC: CATH 14:00 → CSD 16:20 → CATH 07-09 12:42
PROVIDERS: ATTEND Internal Medicine Cardiovascular Disease
DX: I49.5 Sick sinus syndrome (principal); I50.9 Heart failure, unspecified; I11.0 Hypertensive heart disease with heart failure; I21.9 Acute myocardial infarction, unspecified; I25.10 Atherosclerotic heart disease of native coronary artery without angina pectoris; I65.23 Occlusion and stenosis of bilateral carotid arteries; E78.2 Mixed hyperlipidemia; J44.9 Chronic obstructive pulmonary disease, unspecified; M19.90 Unspecified osteoarthritis, unspecified site; E03.9 Hypothyroidism, unspecified; E66.9 Obesity, unspecified; Z68.43 Body mass index [BMI] 50.0-59.9, adult; Z90.89 Acquired absence of other organs; Z79.82 Long term (current) use of aspirin; Z79.899 Other long term (current) drug therapy; Z79.890 Hormone replacement therapy; Z83.3 Family history of diabetes mellitus
CPT/HCPCS: 33208; 36415; 71045; 71275; 75820; 80053; 80061; 85027; 85610; 85730; 87081; 94640; 94760

== ENCOUNTER → 2021-07-24 | Outpatient (CLI) | payer MEDICAID ==
[~2021-07-24] MED LIST changes: -HEParin (CATH LAB) 1,000 ML IV ONE; -LIDOCAINE 1% INJ 20 ML VIAL ONE; -MIDAZOLAM 5 MG/5 ML (VERSED) VIAL ONE; -NS (IVPB) 50 ML ONE; -NS IV 1000 ML 1,000 ML IV ONE; -NS IV 1000 ML 1,000 ML ONE; -NS IV 500 ML 500 ML ONE; -ceFAZolin INJECTION 1,000 MG ONE; -ceFAZolin INJECTION 1,000 MG VIAL IV ONE; -fentaNYL INJ 100 MCG/2 ML AMP ONE
[2021-07-24 12:02] LABS: ABG BASE EXCESS 6.2 MMOL/L (-2.5-2.5); ABG OXYGEN SATURATION 51 % (94-100); ABG PCO2 47 MMHG (35-45); ABG PH 7.43 (7.37-7.43); ABG TCO2 32.4 MMOL/L (21.0-31.0)
[2021-07-24 12:07] LABS: ALLENS TEST YES-POS; INSPIRED O2 ROOM AIR
[2021-07-24 12:08] LABS: PATIENT TEMP 35.5; VENTILATOR NO
[2021-07-24 12:10] LABS: ABG PO2 30 MMHG (79-93)
== END ==
LOC: LAB 11:21
PROVIDERS: ATTEND Internal Medicine Critical Care Medicine
DX: J96.11 Chronic respiratory failure with hypoxia (principal); J96.12 Chronic respiratory failure with hypercapnia; J44.9 Chronic obstructive pulmonary disease, unspecified
CPT/HCPCS: 82805

== ENCOUNTER → 2021-10-27 | Outpatient (CLI) | payer MEDICAID ==
[~2021-10-27] MED LIST changes: +MORP30CA13 PO; -MORP30CA16 PO; +RT-ALBUTEROL SULF 2.5 MG/3 ML PRE-MIX VIAL INH ONE
[2021-10-27 11:48] LABS: ABG OXYGEN SATURATION 98 % (94-100); ABG PCO2 39 MMHG (35-45); ABG PH 7.42 (7.37-7.43); ABG PO2 81 MMHG (79-93); ABG TCO2 26.1 MMOL/L (21.0-31.0)
[2021-10-27 11:49] LABS: ALLENS TEST YES-POS; INSPIRED O2 RA; PATIENT TEMP 37; VENTILATOR NO
== END ==
LOC: RT 10:45
PROVIDERS: ATTEND Internal Medicine Critical Care Medicine
DX: J44.9 Chronic obstructive pulmonary disease, unspecified (principal); J96.10 Chronic respiratory failure, unspecified whether with hypoxia or hypercapnia
CPT/HCPCS: 36600; 82805; 94060; 94726; 94729

== ENCOUNTER → 2022-01-14 | Outpatient (CLI) | payer MEDICAID ==
[~2022-01-14] MED LIST changes: +CARV3.122 PO; -RT-ALBUTEROL SULF 2.5 MG/3 ML PRE-MIX VIAL INH ONE
== END | disposition home or self-care (01) ==
LOC: PREOP 05:40
PROVIDERS: ATTEND Otolaryngology Otolaryngology/Facial Plastic Surgery
DX: Z01.818 Encounter for other preprocedural examination (principal)

== ENCOUNTER → 2022-01-15 | Outpatient (CLI) | payer MEDICAID | LOC: CARD 08:39 | PROVIDERS: ATTEND Internal Medicine Cardiovascular Disease | DX: I10 Essential (primary) hypertension (principal); I25.10 Atherosclerotic heart disease of native coronary artery without angina pectoris; I35.0 Nonrheumatic aortic (valve) stenosis | CPT/HCPCS: 93306 ==

== ENCOUNTER → 2022-01-18 | Outpatient (CLI) | payer MEDICAID ==
[~2022-01-18] VITALS: Ht 157 cm; Wt 75.0 kg
[~2022-01-18] MED LIST changes: +CATHETER FLUSH 10 ML SYR IVP PRN; +REGADENOSON 0.4 MG/5 ML SYR (LEXISCAN) IV ONE
[2022-01-18 08:33] LABS: TRIGLYCERIDES 195 MG/DL (<150); VLDL CHOLESTEROL 39 MG/DL (5-40)
[2022-01-18 08:38] LABS: CHOLESTEROL 129 MG/DL (< 200)
[2022-01-18 08:39] LABS: HDL CHOLESTEROL 29 MG/DL (40-60)
[2022-01-18 09:30] VITALS: BP 107/59
--- NOTE | 2022-01-19 08:57 | Cardiology Stress Test Report ---
Stress Test Report Date of Procedure/Referring: Date of Procedure: Jan 18, 2022 PCP Aden Mckeon MD Admitting Physician Admitting Physician: Attending Physician: Ally De Leon MD Indications: CP Baseline Heart Rate: 61 Baseline Blood Pressure: Blood Pressure Systolic: 107 Blood Pressure Diastolic: 59 Baseline Vitals Vital Signs Date Time Temp Pulse Resp B/P (MAP) Pulse Ox O2 Delivery O2 Flow Rate FiO2 01/18/22 09:30 61 107/59 (75) 97 Baseline EKG: Baseline EKG: Paced rhythm Summary After explaining the procedure to the patient, she signed a consent and then brought to the stress nuclear laboratory. Patient received 0.4 mg Lexiscan for stress test, ECG, heart rate and blood pressure were monitored continuously. Resting and stress dose of radio tracer were injected, imaging was acquired and reviewed in short axis, horizontal long axis and vertical long axis views. TID: 1.22 SSS: 6 SDS: 6 EF: 67 1. Patient tolerated Lexiscan well 2. Baseline paced rhythm persisted during test 3. Mild reversible ischemia involving the apex and anteroapical segment 4. Normal left ventricular size, ejection fraction 67% Copy Copies To 1: [facility] [place] DE LEON MD Jan 19, 2022 08:57
== END ==
LOC: CARD 08:45
PROVIDERS: ATTEND Internal Medicine Cardiovascular Disease
DX: I25.10 Atherosclerotic heart disease of native coronary artery without angina pectoris (principal); I10 Essential (primary) hypertension; E78.2 Mixed hyperlipidemia; I65.23 Occlusion and stenosis of bilateral carotid arteries; E78.5 Hyperlipidemia, unspecified
CPT/HCPCS: 36415; 78452; 80061; 93017

== ENCOUNTER 2022-01-21 06:30 | Day surgery (SDC) | payer MEDICAID ==
[2022-01-21] VITALS (8 sets, daily range): BP systolic 120–136; BP diastolic 55–70
[~2022-01-21] VITALS: Ht 157 cm; Wt 75.0 kg
[~2022-01-21 06:30] MED LIST changes: -CATHETER FLUSH 10 ML SYR IVP PRN; -REGADENOSON 0.4 MG/5 ML SYR (LEXISCAN) IV ONE
[2022-01-21] MEDS ORDERED: LIDOCAINE/EPI 2% 1:200,00 (XYLOCAINE) 20 ML VIAL ONE (07:40)
[2022-01-21] MEDS ORDERED: MUPIROCIN 2% OINT 22 GM (BACTROBAN) TUBE ONE (07:40)
[2022-01-21] MEDS ORDERED: proPOfol 200 MG/20 ML (DIPRIVAN) VIAL IV ONE (07:47)
[2022-01-21] MEDS ORDERED: ONDANSETRON 4 MG/2 ML (SDV) Z0FRAN ONE (07:47)
[2022-01-21] MEDS ORDERED: LIDOCAINE PF 2% 5 ML (XYLOCAINE) VIAL ONE (07:47)
[2022-01-21] MEDS ORDERED: SEVOFLURANE (ULTANE) 15 ML INHAL SOLN ONE ×3 (07:47→09:20)
[2022-01-21] MEDS ORDERED: fentaNYL INJ 100 MCG/2 ML AMP ONE (07:47)
[2022-01-21] MEDS ORDERED: MIDAZOLAM 2 MG/2 ML (VERSED) VIAL ONE (07:47)
[2022-01-21 07:52] LABS: BASOPHILS % (AUTO) 0 % (0-10); EOSINOPHILS # (AUTO) 0.3 10^3/uL (0.0-0.3); EOSINOPHILS % (AUTO) 5 % (0-10); HEMATOCRIT 33 % (35-52); HEMOGLOBIN 10.7 g/dL (11.5-16.0); LYMPHOCYTES # (AUTO) 1.8 10^3/uL (1.0-4.0); LYMPHOCYTES % (AUTO) 25 % (12-44); MEAN CORPUSCULAR HEMOGLOBIN 32 pg (25-34); MEAN CORPUSCULAR HGB CONC 33 g/dL (32-36); MEAN CORPUSCULAR VOLUME 98 fL (80-99); MEAN PLATELET VOLUME 9.5 fL (9.0-12.2); MONOCYTES # (AUTO) 0.8 10^3/uL (0.0-1.0); MONOCYTES % (AUTO) 11 % (0-12); NEUTROPHILS # (AUTO) 4.3 10^3/uL (1.8-7.8); NEUTROPHILS % (AUTO) 59 % (42-75); PLATELET COUNT 183 10^3/uL (130-400); WHITE BLOOD COUNT 7.4 10^3/uL (4.3-11.0)
[2022-01-21] MEDS: LACTATED RINGERS 1,000 ML IV PRN ×2 (07:53→07:56)
[2022-01-21 08:09] LABS: CALCIUM 9.6 MG/DL (8.5-10.1); CREATININE SERUM 1.13 MG/DL (0.60-1.30); POTASSIUM 3.5 MMOL/L (3.6-5.0)
--- NOTE | 2022-01-21 08:20 | Progress Note-Pre Operative ---
Pre-Operative Progress Note Date of Available H&P: Jan 21, 2022 Date H&P Reviewed: Jan 21, 2022 Time H&P Reviewed: 07:00 History & Physical: H&P Reviewed, Patient Examed, No changes noted Changes from last HP none Pre-Operative Diagnosis: Left Cheek Lesion MILENA KILLIAN MD Jan 21, 2022 08:20
--- NOTE | 2022-01-21 08:21 | Progress Note-Post Operative ---
Post-Operative Progess Note Surgeon (s)/Financial Management Analyst (s) Surgeon MILENA KILLIAN MD Financial Management Analyst n/a Pre-Operative Diagnosis Left Cheek Lesion Post-Operative Diagnosis same Post-Op Procedure Note Date of Procedure: Jan 21, 2022 Name of Procedure Performed: Excision of Left Cheek LEsion REconstruction with advancement flap Description & Findings Description and Findings: n/a Anesthesia Type gen lma Estimated Blood Loss minimal Packing none. Specimen(s) collected/removed left cheek lesio tipor frozen section MILENA KILLIAN MD Jan 21, 2022 08:21
[2022-01-21] MEDS ORDERED: HYDROcodone/APAP 5 MG/325 MG (LORTAB) TAB PO PRN (08:30)
[2022-01-21] MEDS ORDERED: ACETAMINOPHEN 325 MG TABLET PO PRN (08:30)
[2022-01-21] MEDS ORDERED: PHENYLEPHRINE 100 MCG/ML 10 ML (ANESTHESIA) SYR ONE (08:33)
[2022-01-21] MEDS ORDERED: BSS 15 ML ONE (08:40)
[2022-01-21] MEDS ORDERED: HYDROmorphone 2 MG/ML VIAL (DILAUDID) IV ONE (09:30)
[2022-01-21] MEDS ORDERED: ONDANSETRON 4 MG/2 ML (SDV) Z0FRAN IVP PRN (09:30)
--- NOTE | 2022-01-21 09:47 | Anesthesia-General Post-Op ---
General Patient Condition Mental Status/LOC: Same as Preop Cardiovascular: Satisfactory Nausea/Vomiting: Absent Respiratory: Satisfactory Pain: Controlled Complications: Absent Post Op Complications Complications None Follow Up Care/Instructions Patient Instructions None needed. Anesthesia/Patient Condition Patient Condition Patient is doing well, no complaints, stable vital signs, no apparent adverse anesthesia problems. No complications reported per nursing. D/C home per [facility] [place] Criteria: Yes RODRIGO VILLAR CRNA Jan 21, 2022 09:47
[2022-01-27] MEDS ORDERED: OXYC1TAB16 PO (12:45)
[2022-01-27] MEDS ORDERED: ISOS30TA82 PO (12:45)
[2022-01-27] MEDS ORDERED: ASPI-1238 PO (12:45)
[2022-01-27] MEDS ORDERED: TICA90TA PO (12:45)
[2022-01-27] MEDS ORDERED: ATOR80TA76 PO (12:45)
[2022-01-27] MEDS ORDERED: LEVO150C4 PO (12:45)
[2022-01-27] MEDS ORDERED: BIMA2.5D4 OP (12:45)
[2022-01-27] MEDS ORDERED: NITR0.4T39 SL (12:45)
[2022-01-27] MEDS ORDERED: LOSA25TA41 PO (12:49)
== END 2022-01-21 11:12 | disposition home or self-care (01) ==
LOC: SDC 06:30
PROVIDERS: ATTEND Otolaryngology Otolaryngology/Facial Plastic Surgery
DX: C44.329 Squamous cell carcinoma of skin of other parts of face (principal); E66.01 Morbid (severe) obesity due to excess calories; Z68.30 Body mass index [BMI] 30.0-30.9, adult
CPT/HCPCS: 36415; 80048; 85025; 87081; 93005

== ENCOUNTER 2022-01-27 13:00 | Day surgery (SDC) | payer MEDICAID ==
[2022-01-27] VITALS (11 sets, daily range): BP systolic 99–158; BP diastolic 46–80
[~2022-01-27] VITALS: Ht 157.5 cm; Wt 79.0 kg
[2022-01-27 11:22] LABS: BILIRUBIN,URINE NEGATIVE (NEGATIVE); CLARITY,URINE CLEAR; COLOR,URINE YELLOW; GLUCOSE, URINE (UA) NEGATIVE (NEGATIVE); KETONES,URINE NEGATIVE (NEGATIVE); LEUKOCYTE ESTERASE ,URINE 2+ (NEGATIVE); NITRITE,URINE NEGATIVE (NEGATIVE); PROTEIN,URINE NEGATIVE (NEGATIVE)
[2022-01-27 11:23] LABS: HEMATOCRIT 35 % (35-52); HEMOGLOBIN 11.5 g/dL (11.5-16.0); MEAN CORPUSCULAR HEMOGLOBIN 31 pg (25-34); MEAN CORPUSCULAR HGB CONC 33 g/dL (32-36); MEAN CORPUSCULAR VOLUME 96 fL (80-99); MEAN PLATELET VOLUME 9.3 fL (9.0-12.2); PLATELET COUNT 236 10^3/uL (130-400); WHITE BLOOD COUNT 10.8 10^3/uL (4.3-11.0)
[2022-01-27 11:34] LABS: INR 0.9 (0.8-1.4); PROTHROMBIN TIME PATIENT 12.7 SEC (12.2-14.7)
[2022-01-27 11:40] LABS: ALBUMIN 3.9 GM/DL (3.2-4.5); BILIRUBIN,TOTAL 0.5 MG/DL (0.1-1.0); CALCIUM 9.9 MG/DL (8.5-10.1); CREATININE SERUM 1.2 MG/DL (0.60-1.30); POTASSIUM 3.6 MMOL/L (3.6-5.0); TOTAL PROTEIN 7.1 GM/DL (6.4-8.2)
[2022-01-27 11:43] LABS: BACTERIA,URINE LARGE /HPF
--- NOTE | 2022-01-27 12:24 | Diagnostic Imaging Report ---
EXAMINATION: Chest 1 view HISTORY: Chest pain. Hypertension. Coronary artery disease. COMPARISON: 07/08/2021. FINDINGS: The lung volumes are normal. No focal consolidation is seen. No large pleural effusion or pneumothorax is seen. Stable cardiomegaly with stable left pectoral pacemaker. No acute osseous abnormality is seen. IMPRESSION: 1. Cardiomegaly. No overt pulmonary edema. Dictated by: Dictated on workstation # [id number]
[~2022-01-27 13:00] MED LIST changes: +BIMA2.5D4 OP; +HEParin (CATH LAB) 2,000 ML IV ONE; +HEParin 1000 UNIT/ML (10ML VIAL) FOR BOLUS ONE; +LEVO150C4 PO; +LIDOCAINE 1% INJ 20 ML VIAL ONE; +LOSA25TA41 PO; +MIDAZOLAM 5 MG/5 ML (VERSED) VIAL ONE; +NITR0.4T39 SL; +NITRO DRIP 25000 MCG/D5W 250 ML IV ONE; +NS IV 1000 ML 1,000 ML IV SCH; +NS IV 1000 ML 1,000 ML ONE; +VERAPAMIL 5 MG/2 ML (CALAN) VIAL IV ONE; +fentaNYL INJ 100 MCG/2 ML AMP ONE
--- NOTE | 2022-01-27 13:24 | Cardiac Procedure Note-CS/ASA ---
Pre-Procedure Note Pre-Op Procedure Note Date of Available H&P: Jan 19, 2022 Date H&P Reviewed: Jan 27, 2022 Time H&P Reviewed: 13:23 History & Physical: H&P Reviewed, Patient Examed, No changes noted Pre-Operative Diagnosis: Coronary artery disease Conscious Sedation Pre-Proced Time 13:24 ASA Score 3 For ASA 3 and 4: Consider anesthesia and medical clearance. Also, for patients with a history of failed moderate sedation consider anesthesia. Airway Lungs Heart ASA score ASA 1: a normal healthy patient ASA 2: a patient with a mild systemic disease (mid diabetes, controlled hypertension, obesity x ASA 3: a patient with a severe systemic disease that limits activity (angina, COPD, prior Myocardial infarction) ASA 4: a patient with an incapacitating disease that is a constant threat to life (CHF, renal failure) ASA 5: a moribund patient not expected to survive 24 hrs. (ruptured aneurysm) ASA 6: a declared brain- patient whose organs are being harvested. For emergent operations, add the letter E after the classification Mallampati Classification Grade 3 Sedation Plan Analgesia, Amnesia, Plan communicated to team members, Discussed options with patient/fam, Discussed risks with patient/fam The patient is an appropriate candidate to undergo the planned procedure, sedation, and anesthesia. The patient immediately re-assessed prior to indication. ALLY MARINO MD Jan 27, 2022 13:24
[2022-01-27] MEDS ORDERED: NS (IVPB) 250 ML ONE (14:28)
[2022-01-27] MEDS ORDERED: ADENOSINE 6 MG/2 ML (ADENOCARD) VIAL IV ONE (14:28)
[2022-01-27] MEDS ORDERED: ASPIRIN 81 MG CHEW (CHILDREN'S ASA) ONE (14:46)
[2022-01-27] MEDS ORDERED: TICAGRELOR 90 MG TABLET (BRILINTA) PO ONE (14:46)
--- NOTE | 2022-01-27 14:59 | Cardiac Cath Report ---
CARDIAC CATHETERIZATION DATE OF PROCEDURE: 01/27/2022 INDICATION: Coronary artery disease with angina pectoris. HISTORY: The patient is a 66 year old female with a known history of coronary artery disease with previous stents in the left anterior descending coronary artery most recently in June 2021 when she had an anterior myocardial infarction. She has now been having some chest discomfort concerning for angina. She underwent a nuclear stress test that showed anterior and apical ischemia. She subsequently underwent a cardiac catheterization by Olivia De Leon MD just prior to this procedure. She was found to have a total occlusion of the mid left anterior descending coronary artery just beyond the previously placed stents with EDGAR 0 flow. He elected to proceed with percutaneous revascularization but he could not manipulate a coronary guidewire into the previously placed stent. As such, he asked me to proceed with the intervention. She has class III chronic systolic heart failure. Given her current clinical status, she is considered moderately frail. PROCEDURES PERFORMED: 1. Drug-eluting stent placement to mid left anterior descending coronary artery. PROCEDURE DESCRIPTION: After informed consent and in the fasting state, left heart catheterization was performed through the right radial artery utilizing a 6 [place] system by percutaneous approach. Dr. De Leon Performed the diagnostic portion of the procedure. Please see his report for further details. I utilized a 6 [place] CLS 3.5 guide catheter for the percutaneous coronary intervention. All catheters were exchanged over a guidewire. Following the procedure, a vascular band was applied to the radial artery access site and the sheath was removed with good hemostasis. RESULTS: Left anterior descending coronary artery: There was a 99% stenosis proximally within a previously placed stent with EDGAR-1 flow. There appeared to be another 80% stenosis in the midsegment just distal to the most distal previously placed stent. PERCUTANEOUS CORONARY INTERVENTION: Percutaneous coronary intervention was carried out on the proximal and mid left anterior descending coronary artery utilizing a CLS 3.5 guide catheter. A BMW guidewire was placed in the left circumflex coronary artery by Dr. De Leon. This was to help stabilize the guide catheter. He was not able to advance a wire into the left anterior descending coronary artery. At that point, I was able to cross the stenosis in the proximal and mid left anterior descending coronary artery with a Whisper medium support guidewire. I subsequently performed coronary angioplasty with a 2.5 x 12 mm Trek balloon at a pressure of 10-12 agusto for several inflations throughout the stenotic area. Flow was improved. I subsequently performed coronary angioplasty with a 3.5 x 12 mm noncompliant Trek balloon within the previously placed stents at a pressure of 16-20 agusto. I subsequently deployed a 3 x 18 mm drug-eluting Xience Skypoint stent in the mid segment overlapping the distal edge of the most distal stent at a pressure of 16 agusto. I then postdilated the overlapped segment with the stent balloon at a pressure of 16 agusto. Following coronary angioplasty and stent placement, there was 0% residual stenosis with EDGAR-3 flow. IMPRESSION: 1. Status post drug-eluting stent placement to the mid left anterior descending coronary artery with a 3 x 18 mm Xience Skypoint stent with 0% residual stenosis and EDGAR-3 flow as well as high-pressure balloon inflation to the proximal left anterior descending coronary artery with a 3.5 x 12 mm noncompliant balloon for in-stent restenosis with 0% residual stenosis and EDGAR-3 flow. Certain portions of this document may have been dictated utilizing voice recognition technology. Inherent to this technology, typographical and grammatical errors may exist. As much as I am diligent to identify and correct these mistakes, some errors may remain in the document. JAN BOYLE JR, MD Jan 27, 2022 14:59
[2022-01-27] MEDS ORDERED: NITROGLYCERIN 0.4 MG SL TABS BTL 25'S SL PRN (15:00)
--- NOTE | 2022-01-27 15:31 | Cardiac Cath Report ---
Cardiac Cath Report Physician (s)/Funeral Car Chauffeur (s) Physician ALLY MARINO MD Pre-Procedure Diagnosis Pre-Procedure Diagnosis: Coronary artery disease Post-Procedure Note Procedure Start Date: Jan 27, 2022 Name of Procedure: Left heart catheterization Findings/Procedure Note PROCEDURE NOTE: 66-year-old lady with history of coronary artery disease, recent stent to the LAD in June 2021, had an abnormal stress test and has been having chest pain, scheduled for cardiac catheterization possible PTCA. After explaining the procedure to the patient, all pros and cons were explained, all questions were answered. The patient signed the consent and then she was placed on the cardiac catheterization laboratory. Groin was prepped SL fashion local anesthesia was used. Sheath placed in the right radial artery, [place] catheter was used and advanced to the left ventricular cavity, pressure was measured, pullback LV to aorta was done, engage the right and left coronary system, angiogram was done. Patient received 6000 units of heparin, I used 2 different guides for the LAD that has subtotal occlusion and multiple wire placed a wire in the circumflex artery and attempted to advance a wire in the LAD without success. I called Dr. Haque for junior administrative assistant and he was able to advance the wire and did balloon angioplasty and stenting. Separate report from Dr. Haque to follow. At the end of the procedure the sheath was removed. Vascular band was used FINDINGS: Hemodynamics LV 87/8, end-diastolic pressure of 8 Aorta 107/48 mean of 70 ANATOMY: Left Main is free of obstructive disease Left Anterior Descending has moderate to severe proximal stenosis and subtotal occlusion within the stent in the proximal LAD. Left Circumflex has mild to moderate disease nonobstructive disease Right Coronary Artery has mild disease nonobstructive disease LV Gram was not done, pressure was measured CONCLUSION: 1. Moderate to severe proximal LAD stenosis with subtotal occlusion within the stent in the proximal LAD. Percutaneous intervention report is separate 2. Otherwise mild coronary artery disease 3. Normal left ventricular end-diastolic pressure DISCUSSION AND RECOMMENDATION: Patient received aspirin and Brilinta. Anesthesia Type: Conscious Sedation Estimated blood loss (mL): 30 ml Contrast Amount: 137 ml Total Radiation Dose: 3594 mGy Post-Procedure Diagnosis Post-operative diagnosis: Coronary artery disease Chest pain Hypertension Hyperlipidemia. ALLY MARINO MD Jan 27, 2022 15:31
[2022-01-27] MEDS: KCL 10 MEQ TAB (MICRO K) PO SCH (18:22)
[2022-01-27] MEDS: NS IV 1000 ML 1,000 ML IV SCH (18:22)
[2022-01-27] MEDS: TICAGRELOR 90 MG TABLET (BRILINTA) PO SCH (20:09)
[2022-01-27] MEDS: oxyCODONE/APAP 7.5-325 MG (PERCOCET 7.5) TABLET PO PRN (20:14)
[2022-01-27] MEDS ORDERED: LATANOPROST 0.005% (XALATAN) OPHTH SOLN 2.5 ML OU SCH (21:00)
[2022-01-27] MEDS ORDERED: NON-FORMULARY MEDICATION 1 EA EA (Bimatoprost (Lumigan) 1 DROP) OP SCH (21:00)
[2022-01-27] MEDS ORDERED: NON-FORMULARY MEDICATION 1 EA EA (Potassium Chloride 10 MEQ) PO SCH (21:00)
[2022-01-28] VITALS: BP 94/44
[2022-01-28 00:30] VITALS: BP 110/55
[2022-01-28] MEDS: NS IV 1000 ML 1,000 ML IV SCH (01:00)
[2022-01-28 04:00] VITALS: BP 96/64
[2022-01-28] MEDS: oxyCODONE/APAP 7.5-325 MG (PERCOCET 7.5) TABLET PO PRN (04:49)
--- NOTE | 2022-01-28 05:42 | Discharge Inst-Post CATH ---
Discharge Inst-CATH/EP Problems Reviewed?: Yes Post Cardiac Cath/EP D/C Inst Follow Up/Plan Appointment with Dr De Leon in 2-4 weeks <b>CARDIAC CATH/EP PROCEDURE DISCHARGE INSTRUCTIONS</b> ACTIVITY * Go Home directly and rest. * Limit activity of the leg (or wrist if it was used) for 7 days including aerobics, swimming, jogging, bicycling, etc. * Restrict stair-climbing for 7 days if possible, if not, climb up with your non-cath leg, then bring together on the same step. * Avoid lifting, pushing, pulling or excessive movement of the affected extremity for 7 days. * Customary sexual activity may be resumed after 2 days-use caution not to use a position that strains or causes pain to the affected extremity. * No driving for 24 hours. * NO SMOKING. * Avoid straining for bowel movements for 7 days. * Gentle walking on level ground is allowed. * Returning to work will depend on the type of procedure and the results. Your doctor will discuss this with you. CALL YOUR DOCTOR FOR ANY OF THE FOLLOWING: *If bleeding from the puncture site occurs- Apply gentle pressure to site with clean cloth and call your doctor or EMS. * If a knot or lump forms under the skin, increases in size, or causes pain. * If bruising appears to be worsening or moving further down your leg instead of disappearing. * Temperature above 101 F. CARE OF YOUR GROIN INCISION; * Bruising or purple discoloration of the skin near the puncture site is common. * You may shower only, no bathtub bathing for 5 days. Be careful to avoid slipping as your leg may feel stiff. * If a closure device was used on your femoral artery, please see the attached guide regarding care of the device and your leg. * Leave dressing on FOR 24 hours. CARE OF YOUR WRIST INCISION; * Bruising or purple discoloration of the skin near the puncture site is common. * You may shower. * DO NOT submerge wrist. * Leave dressing on FOR 24 hours. ALLY DE LEON MD Jan 28, 2022 05:42
[2022-01-28] MEDS ORDERED: LEVOTHYROXINE 150 MCG (LEVOTHROID) TAB PO SCH (06:30)
[2022-01-28] MEDS ORDERED: MULTIVIT W/MINERALS TAB (THERAGRAN M) PO SCH (07:00)
[2022-01-28 07:28] VITALS: BP 124/56
--- NOTE | 2022-01-28 07:40 | Cardiology Progress Note ---
Subjective Date Seen by Provider: Jan 28, 2022 Time Seen by Provider: 07:39 Subjective/Events-last exam Patient was seen at bedside, laying down comfortably, feeling better No new complaint Review of Systems General: No Chills, No Night Sweats, No Fatigue, No Malaise, No Appetite, No Other HEENT: No Head Aches, No Visual Changes, No Eye Pain, No Ear Pain, No Dysphas ia, No Sinus Congestion, No Post Nasal Drip, No Sore Throat, No Other Pulmonary: No Dyspnea, No Cough, No Pleuritic Chest Pain, No Other Cardiovascular: No: Chest Pain, Palpitations, Orthopnea, Paroxysmal Noc. Dyspnea, Edema, Lt Headedness, Other Objective-Cardiology Exam Last Set of Vital Signs Vital Signs 01/28/22 07:28 Temp 37.0 Pulse 62 Resp 20 B/P (MAP) 124/56 (78) Pulse Ox 95 O2 Delivery Nasal Cannula O2 Flow Rate 2.00 I&O Intake and Output 01/28/22 00:00 Intake Total 500 ml Output Total 900 ml Balance -400 ml Intake Oral 500 ml Output Urine Total 900 ml Daily Weight Change No General: Alert, Oriented X3, Cooperative HEENT: Atraumatic, PERRLA Neck: Supple, No JVD, No Thyromegaly Lungs: Clear to Auscultation, Normal Air Movement Heart: Regular Rate, Normal S1, Normal S2, No Murmurs Abdomen: Normal Bowel Sounds, Soft, No Tenderness, No Hepatosplenomegaly, No Masses Extremities: No Clubbing, No Cyanosis, No Edema, Normal Pulses, No Tenderness/Swelling Skin: No Rashes, No Breakdown, No Significant Lesion Neuro: Normal Gait, Normal Speech, Strength at 5/5 X4 Ext, Normal Tone, Sensa tion Intact Psych/Mental Status: Mental Status NL, Mood NL Results Lab Laboratory Tests 01/27/22 11:10 A/P-Cardiology Admission Diagnosis Coronary artery disease Hypertension Hyperlipidemia Dual-chamber pacemaker Assessment/Plan Coronary artery disease, history of stent to the proximal LAD Status post cardiac catheterization with complex intervention with deployment of a new stent and noncompliant balloon to the LAD with excellent results Continue on aspirin and Plavix Hypertension, continue current medication monitor blood pressure Hyperlipidemia, monitor lipids Dual-chamber pacemaker ALLY MARINO MD Jan 28, 2022 07:40
[2022-01-28] MEDS: KCL 10 MEQ TAB (MICRO K) PO SCH (08:14)
[2022-01-28] MEDS: TICAGRELOR 90 MG TABLET (BRILINTA) PO SCH (08:15)
[2022-01-28] MEDS ORDERED: NON-FORMULARY MEDICATION 1 EA EA (Levothyroxine Sodium (Levothyroxine) 150 MCG) PO SCH (09:00)
[2022-01-28] MEDS ORDERED: FUROSEMIDE 20 MG (LASIX) TAB PO SCH (09:00)
[2022-01-28] MEDS ORDERED: NON-FORMULARY MEDICATION 1 EA EA (Multivits-Min/Iron/FA/Lutein (Centrum Silver Women Table PO SCH (09:00)
[2022-01-28] MEDS ORDERED: DOCUSATE SODIUM 100 MG (COLACE) CAP PO SCH (09:00)
[2022-01-28] MEDS ORDERED: LOSARTAN 25 MG (COZAAR) TAB PO SCH (09:00)
[2022-01-28] MEDS ORDERED: ASPIRIN E.C. 81 MG (ECOTRIN) TAB PO SCH (09:00)
[2022-01-28] MEDS ORDERED: ISOSORBIDE MONONITRATE 30 MG (IMDUR) TAB PO SCH (09:00)
[2022-01-28] MEDS ORDERED: ALLOPURINOL 100 MG (ZYLOPRIM) TAB PO SCH (09:00)
[2022-01-28 13:23] VITALS: BP 124/56
== END 2022-01-28 13:10 | disposition home or self-care (01) ==
LOC: CATH 13:00 → ICU 15:15 → CATH 01-28 13:10
PROVIDERS: ATTEND Internal Medicine Cardiovascular Disease
DX: I25.10 Atherosclerotic heart disease of native coronary artery without angina pectoris (principal); I10 Essential (primary) hypertension; Z79.899 Other long term (current) drug therapy; E66.01 Morbid (severe) obesity due to excess calories; Z68.31 Body mass index [BMI] 31.0-31.9, adult; I65.23 Occlusion and stenosis of bilateral carotid arteries; J44.9 Chronic obstructive pulmonary disease, unspecified; Z99.81 Dependence on supplemental oxygen; Z86.718 Personal history of other venous thrombosis and embolism; E03.9 Hypothyroidism, unspecified; Z79.01 Long term (current) use of anticoagulants; Z95.0 Presence of cardiac pacemaker; E78.2 Mixed hyperlipidemia
CPT/HCPCS: 36415; 71045; 80053; 80061; 81000; 85027; 85610; 85730; 87077; 87081; 87088; 87186; 93005; 93458

== ENCOUNTER → 2022-10-04 | Outpatient (CLI) | payer MEDICAID ==
[~2022-10-04] MED LIST changes: +ALBU8.5H6 IH; +ALBU8.5H6 INH; -HEParin (CATH LAB) 2,000 ML IV ONE; -HEParin 1000 UNIT/ML (10ML VIAL) FOR BOLUS ONE; -LIDOCAINE 1% INJ 20 ML VIAL ONE; -MIDAZOLAM 5 MG/5 ML (VERSED) VIAL ONE; -NITRO DRIP 25000 MCG/D5W 250 ML IV ONE; -NS IV 1000 ML 1,000 ML IV SCH; -NS IV 1000 ML 1,000 ML ONE; +POTA-177 PO; -POTA10TA37 PO; -RT-ALBUINH IH; -RT-ALBUINH INH; -VERAPAMIL 5 MG/2 ML (CALAN) VIAL IV ONE; -fentaNYL INJ 100 MCG/2 ML AMP ONE
[2022-10-04 12:31] LABS: ABG BASE EXCESS 2.3 MMOL/L (-2.5-2.5); ABG OXYGEN SATURATION 97 % (94-100); ABG PCO2 34 MMHG (35-45); ABG PH 7.49 (7.37-7.43); ABG PO2 65 MMHG (79-93)
== END ==
LOC: LAB 12:01
PROVIDERS: ATTEND Internal Medicine Critical Care Medicine
DX: J96.10 Chronic respiratory failure, unspecified whether with hypoxia or hypercapnia (principal)
CPT/HCPCS: 36600; 82805

== ENCOUNTER 2022-10-16 04:45 | Inpatient (IN) | payer MEDICAID ==
[~2022-10-16] VITALS: Ht 157 cm; Wt 96.5 kg
[2022-10-16] MEDS ORDERED: morphine INJ 10 MG/ML 1ML (SYR OR VIAL) IV STA (04:58)
[2022-10-16] MEDS ORDERED: NITROGLYCERIN 0.4 MG SL TABS BTL 25'S SL PRN ×2 (05:00→08:00)
[2022-10-16] MEDS ORDERED: ASPIRIN 81 MG CHEW (CHILDREN'S ASA) PO ONE (05:00)
[2022-10-16 05:07] LABS: BASOPHILS # (AUTO) 0.1 10^3/uL (0.0-0.1); BASOPHILS % (AUTO) 0 % (0-10); EOSINOPHILS # (AUTO) 0.4 10^3/uL (0.0-0.3); EOSINOPHILS % (AUTO) 2 % (0-10); HEMATOCRIT 34 % (35-52); HEMOGLOBIN 10.5 g/dL (11.5-16.0); LYMPHOCYTES # (AUTO) 2.6 10^3/uL (1.0-4.0); LYMPHOCYTES % (AUTO) 17 % (12-44); MEAN CORPUSCULAR HEMOGLOBIN 28 pg (25-34); MEAN CORPUSCULAR HGB CONC 31 g/dL (32-36); MEAN CORPUSCULAR VOLUME 91 fL (80-99); MEAN PLATELET VOLUME 9.6 fL (9.0-12.2); MONOCYTES # (AUTO) 1.1 10^3/uL (0.0-1.0); MONOCYTES % (AUTO) 7 % (0-12); NEUTROPHILS # (AUTO) 10.8 10^3/uL (1.8-7.8); NEUTROPHILS % (AUTO) 72 % (42-75); PLATELET COUNT 275 10^3/uL (130-400)
[2022-10-16 05:19] LABS: ALBUMIN 3.8 GM/DL (3.2-4.5)
[2022-10-16 05:20] LABS: POTASSIUM 3.8 MMOL/L (3.6-5.0)
[2022-10-16 05:21] LABS: CALCIUM 9.5 MG/DL (8.5-10.1)
[2022-10-16 05:22] LABS: TOTAL PROTEIN 7.3 GM/DL (6.4-8.2)
[2022-10-16 05:24] LABS: BILIRUBIN,TOTAL 0.3 MG/DL (0.1-1.0); INR 0.9 (0.8-1.4); PROTHROMBIN TIME PATIENT 12.8 SEC (12.2-14.7)
[2022-10-16 05:26] LABS: CREATININE SERUM 1.67 MG/DL (0.60-1.30)
[2022-10-16 05:29] LABS: MAGNESIUM 1.9 MG/DL (1.6-2.4)
--- NOTE | 2022-10-16 05:32 | ED Chest Pain ---
General Chief Complaint: Chest Pain Stated Complaint: CP Nursing Triage Note: Pt presents with c/o chest pain that started approx 2 hours prior to arrival. She states she took 2 nitro at home without relief Source: patient Exam Limitations: no limitations History of Present Illness Date Seen by Provider: October 16, 2022 Time Seen by Provider: 04:52 Initial Comments Here with report of chest pain that is central and started about 2 hours ago. She states that it is sharp and significant about 8 out of 10. She did try nitroglycerin tablets at home and that did not help. She states the pain is radiating to her left arm now. That started about 15 minutes ago. She does have history of 2 or 3 stents previously and history of hypertension and COPD. Denies previous stomach problems but has had surgery for hernias. She does follow with Dr. De Leon and Dr. Hernandez. Timing/Duration: 1-3 hours, getting worse, changing over time Severity/Quality: moderate, severe, burning, sharp Location: central Radiation: arms (Left) Prior CP/Workup: cardiac cath, heart attack ASA po SHOE LASTER: No NTG SL SHOE LASTER: Yes Associated Symptoms: No abdominal pain, No back pain, No diaphoresis, No nausea/vomiting, No shortness of breath, No weakness Allergies and Home Medications Allergies Coded Allergies: ceftriaxone (Verified Allergy, Unknown, pt has received Zosyn w/o issue, 05/09/19) ibuprofen (Verified Allergy, Unknown, PT TAKES ASA AT HOME, 08/02/17) PER MED REC diazepam (Verified Adverse Reaction, Severe, 12/04/18) Patient Home Medication List Home Medication List Reviewed: Yes Allopurinol (Allopurinol) 100 Mg Tablet, 100 MG PO DAILY, (Reported) Entered as Reported by: HALLE MANZANARES on 06/14/21 1046 Last Action: Reviewed Aspirin (Aspirin EC) 81 Mg Tablet.dr, 81 MG PO DAILY, (Reported) Entered as Reported by: NANO KHALIL on 01/27/22 124 Last Action: Reviewed Atorvastatin Calcium (Atorvastatin Calcium) 80 Mg Tablet, 80 MG PO HS, (Reported) Entered as Reported by: NANO KHALIL on 01/27/221244 Last Action: Reviewed Bimatoprost (Lumigan) 0.01 % Drops, 1 DROP OP HS, (Reported) Entered as Reported by: NANO KHALIL on 01/27/221244 Last Action: Reviewed Carvedilol (Carvedilol) 3.125 Mg Tablet, 3.125 MG PO BID, (Reported) Entered as Reported by: MARTHA RAMOS on 01/14/22 1400 Last Action: Reviewed Docusate Sodium (Stool Softener) 100 Mg Capsule, 200 MG PO DAILY, (Reported) Entered as Reported by: HARPREET PITT on 06/15/21 1214 Last Action: Reviewed Furosemide (Furosemide) 20 Mg Tablet, 20 MG PO DAILY, (Reported) Entered as Reported by: HALLE MANZANARES on 06/14/21 104 Last Action: Reviewed Isosorbide Mononitrate (Isosorbide Mononitrate ER) 30 Mg Tab.er.24h, 30 MG PO DAILY, (Reported) Entered as Reported by: NANO KHALIL on 01/27/221244 Last Action: Reviewed Levothyroxine Sodium (Levothyroxine) 150 Mcg Capsule, 150 MCG PO DAILY, (Reported) Entered as Reported by: NANO KHALIL on 01/27/221244 Last Action: Reviewed Losartan Potassium (Losartan Potassium) 25 Mg Tablet, 25 MG PO DAILY, (Reported) Entered as Reported by: NANO KHALIL on 01/27/22 124 Last Action: Reviewed Multivits-Min/Iron/FA/Lutein (Centrum Silver Women Tablet) 1 Each Tablet, 1 EACH PO DAILY, (Reported) Entered as Reported by: HALLE MANZANARES on 06/14/21 104 Last Action: Reviewed Nitroglycerin (Nitroglycerin) 0.4 Mg Tab.subl, 0.4 MG SL UD PRN for CHEST PAIN, (Reported) Entered as Reported by: NANO KHALIL on 01/27/221244 Last Action: Reviewed Oxycodone HCl/Acetaminophen (Percocet 7.5-325 mg Tablet) 1 Each Tablet, 1 TAB PO Q6H PRN for PAIN-MODERATE, (Reported) Entered as Reported by: NANO KHALIL on 01/27/221244 Last Action: Reviewed Potassium Chloride (Potassium Chloride) 10 Meq Tab.er.prt, 10 MEQ PO BID, (Reported) Entered as Reported by: CASSIE KHAN on 07/17/19 0908 Last Action: Reviewed Ticagrelor (Brilinta) 90 Mg Tablet, 90 MG PO BID, (Reported) Entered as Reported by: NANO KHALIL on 01/27/22 1245 Last Action: Reviewed Tiotropium [place] (Spiriva) 18 Mcg Aerp, 2 PUFF IH 1400, (Reported) Entered as Reported by: HALLE MANZANARES on 06/14/21 1046 Last Action: Reviewed Review of Systems Review of Systems Constitutional: see HPI; No chills, No fever EENTM: No Nose Congestion, No Throat Pain Respiratory: Denies Cough, Denies Shortness of Air Cardiovascular: Chest Pain, Edema Gastrointestinal: Denies Diarrhea, Denies Vomiting Genitourinary: No Symptoms Reported All Other Systems Reviewed Negative Unless Noted: Yes Past Xarexdh-Vxnskx-Mvjwtw Hx Immunizations Up To Date Tetanus Booster (TDap): Unknown First/Initial COVID19 Vaccinat: UNKNOWN DATE Second COVID19 Vaccination Jamarcus: UNKNOWN DATE Third COVID19 Vaccination Date: UNKNOWN DATE Seasonal Allergies Seasonal Allergies: No Past Medical History Surgeries: Yes (COLON POLYP REMOVAL, MULTIPLE HERNIA REPAIRS, D&C) Abdominal, Adenoidectomy, Coronary Stent, Gallbladder, Pacemaker, Tonsillectomy Respiratory: Yes (CHRONIC DYSPNEA--USES O2 AT HOME, ESPECIALLY AT NIGHT) Sleep Apnea, COPD Currently Using CPAP: No Currently Using BIPAP: No Cardiac: Yes (TACHYCARDIA, STENTS X 1, CHF) Atrial Fibrillation, Chronic Edema/Swelling, Coronary Artery Disease, Deep Vein Thrombosis, Heart Attack, High Cholesterol, Hypertension Neurological: No 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 Disorders: No Female 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 Disorders: Denies 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: Tubal 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, Menopausal Sexually Transmitted Disease: No HIV/AIDS: No Genitourinary: Yes UTI-Chronic Gastrointestinal: No Abdominal Hernia, Diverticulosis, Polyps Musculoskeletal: Yes (CHRONIC GENERALIZED PAIN--NARCOTIC-DEPENDENT) Degenerate Disk Disease, Arthritis, Chronic Back Pain Endocrine: No (MORBID OBESITY) Hypothyroidsim HEENT: Yes Cataract, Glaucoma Loss of Vision: Denies Hearing Impairment: Denies Cancer: Yes (SQUAMOUS CELL SKIN CANCER RIGHT CHEEK 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) Skin, Colon Did You Recieve Any Treatments: Yes What Type of Treatment Did You: Surgical Intervention Psychosocial: No Integumentary: Yes (CELLULITIS; SKIN CANCER; BEDBUGS) Eczema Blood Disorders: Yes (CHRONIC ANEMIA) Adverse Reaction/Blood Tranf: No (HAS HAD BLOOD WITH NO REACTION) Family Medical History Reviewed Nursing Family Hx Cancer 03 MOTHER, Onset:40's - 50 Family history: Cardiovascular disease 03 FATHER, Onset:40's - 50 03 MOTHER, Onset:30's - 40 Myocardial infarction 03 MOTHER, Onset:30's - 40 Heart Disease, Cancer, CAD Under 55 Years Old Physical Exam Vital Signs Vital Signs - First Documented 10/16/22 10/16/22 04:51 07:37 Temp 36.2 Pulse 67 Resp 16 B/P (MAP) 118/66 Pulse Ox 97 O2 Delivery Nasal Cannula O2 Flow Rate 3.00 Capillary Refill : Less Than 3 Seconds Height, Weight, BMI Height: 5'2.00" Weight: 273lbs. 0.0oz. 123.912053fz; 32.00 BMI Method:Stated General Appearance: Moderate Distress, Obese HEENT: PERRL/EOMI, Pharynx Normal Neck: Non Tender, Supple Respiratory: No Respiratory Distress, Wheezing (Few trace wheezes at the bases bilateral) Cardiovascular: Regular Rate, Rhythm, No Murmur, Other (Paced rhythm on the monitor) Gastrointestinal: Non Tender, Soft Extremity: Normal Range of Motion, Non Tender, No Calf Tenderness, Pedal Edema (2+ bilateral) Neurologic/Psychiatric: Alert, Oriented x3 Skin: Normal Color, Warm/Dry Focused Exam Lactate Level 10/16/22 05:45: Lactic Acid Level 2.38*H Lactic Acid Level Laboratory Tests Test 10/16/22 05:45 Lactic Acid Level 2.38 MMOL/L (0.50-2.00) *H Procedures/Interventions Suture Size: 4-0 Critical Care Note Critical Care Start Time: 04:52 Stop Time: 06:22 Total Time (minutes) 40 minutes excluding separately billable procedures. See progress note for details. Progress/Results/Core Measures Results/Orders Lab Results Laboratory Tests Test 10/16/22 05:02 10/16/22 05:45 Range/Units White Blood Count 15.0 H 4.3-11.0 10^3/uL Red Blood Count 3.71 L 3.80-5.11 10^6/uL Hemoglobin 10.5 L 11.5-16.0 g/dL Hematocrit 34 L 35-52 % Mean Corpuscular Volume 91 80-99 fL Mean Corpuscular Hemoglobin 28 25-34 pg Mean Corpuscular Hemoglobin Concent 31 L 32-36 g/dL Red Cell Distribution Width 16.9 H 10.0-14.5 % Platelet Count 275 130-400 10^3/uL Mean Platelet Volume 9.6 9.0-12.2 fL Immature Granulocyte % (Auto) 1 % Neutrophils (%) (Auto) 72 42-75 % Lymphocytes (%) (Auto) 17 12-44 % Monocytes (%) (Auto) 7 0-12 % Eosinophils (%) (Auto) 2 0-10 % Basophils (%) (Auto) 0 0-10 % Neutrophils # (Auto) 10.8 H 1.8-7.8 10^3/uL Lymphocytes # (Auto) 2.6 1.0-4.0 10^3/uL Monocytes # (Auto) 1.1 H 0.0-1.0 10^3/uL Eosinophils # (Auto) 0.4 H 0.0-0.3 10^3/uL Basophils # (Auto) 0.1 0.0-0.1 10^3/uL Immature Granulocyte # (Auto) 0.1 0.0-0.1 10^3/uL Neutrophils % (Manual) 80 % Lymphocytes % (Manual) 13 % Monocytes % (Manual) 5 % Eosinophils % (Manual) 2 % Anisocytosis SLIGHT Elliptocytes SLIGHT Prothrombin Time 12.8 12.2-14.7 SEC INR Comment 0.9 0.8-1.4 Activated Partial Thromboplast Time 27 24-35 SEC Sodium Level 142 135-145 MMOL/L Potassium Level 3.8 3.6-5.0 MMOL/L Chloride Level 104 98-107 MMOL/L Carbon Dioxide Level 22 21-32 MMOL/L Anion Gap 16 H 5-14 MMOL/L Blood Urea Nitrogen 35 H 7-18 MG/DL Creatinine 1.67 H 0.60-1.30 MG/DL Estimat Glomerular Filtration Rate 33 BUN/Creatinine Ratio 21 Glucose Level 134 H 70-105 MG/DL Calcium Level 9.5 8.5-10.1 MG/DL Corrected Calcium 9.7 8.5-10.1 MG/DL Magnesium Level 1.9 1.6-2.4 MG/DL Total Bilirubin 0.3 0.1-1.0 MG/DL Aspartate Amino Transf (AST/SGOT) 17 5-34 U/L Alanine Aminotransferase (ALT/SGPT) 14 0-55 U/L Alkaline Phosphatase 124 40-136 U/L Myoglobin 153.8 H 10.0-92.0 NG/ML Troponin I 1.134 *H <0.028 NG/ML B-Type Natriuretic Peptide 91.6 <100.0 PG/ML Total Protein 7.3 6.4-8.2 GM/DL Albumin 3.8 3.2-4.5 GM/DL Lactic Acid Level 2.38 *H 0.50-2.00 MMOL/L My Orders Orders - LUCERO GUTIERREZ MD Ekg Tracing (10/16/22 04:48) Cbc With Automated Diff (10/16/22 04:52) Magnesium (10/16/22 04:52) Chest 1 View, Ap/Pa Only (10/16/22 04:52) Comprehensive Metabolic Panel (10/16/22 04:52) Myoglobin Serum (10/16/22 04:52) Protime With Inr (10/16/22 04:52) Partial Thromboplastin Time (10/16/22 04:52) O2 (10/16/22 04:52) Monitor-Rhythm Ecg Trace Only (10/16/22 04:52) Lipid Panel (10/17/22 06:00) Ed Iv/Invasive Line Start (10/16/22 04:52) Troponin I [place] (10/16/22 04:52) Aspirin Chewable Tablet (Baby Aspirin Ch (10/16/22 05:00) Nitroglycerin 0.4 Mg Btl 25's (Nitrostat (10/16/22 05:00) Morphine Injection (Morphine Injection (10/16/22 04:58) Manual Differential (10/16/22 05:02) Blood Culture (10/16/22 05:37) Sputum Culture (10/16/22 05:37) Vital Signs Adult Sepsis Patie Q15M (10/16/22 05:37) Remove Rings In Anticipation O (10/16/22 05:37) Lactic Acid Analyzer (10/16/22 05:37) Bnp [place] (10/16/22 05:51) Meropenem (Merrem 1000 Mg) (10/16/22 06:00) Enoxaparin Injection (Lovenox Injection) (10/16/22 06:15) Code/Resuscitation (10/16/22 06:13) Ed Admission (Communication) (10/16/22 06:13) Medications Given in ED Current Medications Medications Dose Ordered Sig/Giuseppe Route Start Time Stop Time Status Last Admin Dose Admin Enoxaparin Sodium 80 mg ONCE ONCE SC 10/16/22 06:15 10/16/22 06:16 DC 10/16/22 06:09 80 MG Meropenem 1000 mg/ Sodium Chloride 100 ml @ 200 mls/hr ONCE ONCE IV 10/16/22 06:00 10/16/22 06:29 DC 10/16/22 06:01 200 MLS/HR Vital Signs/I&O 10/16/22 10/16/22 10/16/22 04:51 05:02 07:37 Temp 36.2 Pulse 67 61 Resp 16 19 B/P (MAP) 118/66 Pulse Ox 97 99 O2 Delivery Nasal Cannula Nasal Cannula Nasal Cannula O2 Flow Rate 3.00 3.00 3.00 Progress Progress Note : Progress Note Seen and evaluated. IV, labs including CBC, CMP, troponin and myoglobin ordered. EKG ordered. We will give ASA 324 mg p.o. Nitro sublingual 0.4 mg ordered to 3 doses as needed if morphine 4 mg IV ordered for pain. Monitor patient. Differential diagnosis includes cardiac event, angina 0533: CBC shows elevated white count of 15,000 with left shift and slightly low hemoglobin. CMP shows normal electrolytes with elevated serum creatinine that is noted on previous occasions and she ranges from 1-1.75 on her creatinine and currently it is 1.67. Troponin and myoglobin pending. Coags normal. Chest x- ray shows what appears to be large infiltrate on the right on my interpretation. I will add blood cultures and lactic acid. 0602: I have discussed the case with Dr Krishna, national sales on-call. He is recommending Lovenox weight-based dosing and n.p.o. status with admission to stepdown or ICU based on admitting provider preference. We will see the patient in consult. I also discussed the case with Dr. Pino, on-call hospitalist for [facility]. She accepts the patient for admission, inpatient status. I have initiated meropenem 500 mg IV due to concerns of infiltrate. I have also added BNP and that is pending. Troponin and myoglobin are both elevated with troponin at 1.34. Her pain is much better after morphine 4 mg IV and 1 sublingual nitroglycerin. I do believe she has findings for non-STEMI and possible pneumonia versus heart failure findings on chest x-ray. All of this was discussed with admitting team's. They agree with meropenem at this point. All findings and concerns discussed with patient and family who agree with plan. Admit, inpatient status. Initial ECG Impression Date: October 16, 2022 Initial ECG Impression Time: 04:52 Initial ECG Rate: 73 Comment Paced rhythm with left axis deviation. No evidence of ST elevation IA. Interpreted by me. Diagnostic Imaging Diagonstic Imaging: Xray Plain Films/CT/US/NM/MRI: chest Comments Right-sided infiltrate and left basilar atelectasis with possibility of pulmonary vascular congestion as well on my interpretation. Pending radiology report. Reviewed: Reviewed by Me Departure Communication (Admissions) Time/Spoke to Admitting Phy: 06:02 Time/Spoke to Consulting Phy: 05:58 Impression Primary Impression: Non-STEMI (non-ST elevated myocardial infarction) Additional Impression: Pneumonia involving right lung Qualified Codes: J18.9 - Pneumonia, unspecified organism Disposition: ADMITTED INPATIENT Condition: Stable Admissions Decision to Admit Reason: Admit from ER (General) Decision to Admit/Date: October 16, 2022 Time/Decision to Admit Time: 06:02 Departure-Patient Inst. Referrals: JAN HERNANDEZ MD (PCP/Family) Primary Care Physician LUCERO GUTIERREZ MD October 16, 2022 05:32
[2022-10-16 05:46] LABS: ANISOCYTOSIS SLIGHT; ELLIPT/OVALOCYTES SLIGHT; EOSINOPHILS % (MANUAL) 2 %; LYMPHOCYTES % (MANUAL) 13 %; MONOCYTES % (MANUAL) 5 %; NEUTROPHILS % (MANUAL) 80 %
[2022-10-16] MEDS ORDERED: PIPERACILLIN SODIUM/TAZOBACTAM 4.5 GM in NS (IVPB) 100 ML IV ONE (06:00)
[2022-10-16] MEDS ORDERED: MEROPENEM 1,000 MG in NS (IVPB) 100 ML IV ONE (06:00)
--- NOTE | 2022-10-16 06:14 | History & Physical-Hospitalist ---
History of Present Illness HPI/Chief Complaint CC: Dyspnea with NSTEMI and PNA HPI: This is a 67yoWF clinic patient of [facility] who has a h/o CAD and COPD who presented to the ER with dyspnea and found to have elevated troponin and evidence of AECOPD and PNA. Abx and NSTEMI meds initiated but upon arrival to ICU she was found to be in flash pulmonary edema so EICU initiated Lasix and biPAP and currently she is resting. No other details obtained. Source: RN/MD, old records Exam Limitations: clinical condition (bipap) Date Seen 10/16/22 Time Seen by a Provider: 11:30 Attending Physician Aden Mckeon MD PCP Admitting Physician: Attending Physician: Referring Physician Date of Admission Home Medications & Allergies Home Medications Reviewed patient Home Medication Reconciliation performed by pharmacy medication reconciliations general service technician and/or nursing. Patients Allergies have been reviewed. Allergies Allergies Coded Allergies ceftriaxone (Verified Allergy, Unknown, pt has received Zosyn w/o issue, 05/09/19) ibuprofen (Verified Allergy, Unknown, PT TAKES ASA AT HOME, 08/02/17) PER MED REC diazepam (Verified Adverse Reaction, Severe, 12/04/18) Past Azumfpo-Wqivfg-Fjxsxq Hx Patient Social History Marrital Status: single Employed/Student: retired Smoking Status: Former Smoker Immunizations Up To Date Date of Influenza Vaccine: May 13, 2021 First/Initial COVID19 Vaccinat: UNKNOWN DATE Second COVID19 Vaccination Jamarcus: UNKNOWN DATE Tetanus Booster (TDap): Unknown Date of Pneumonia Vaccine: Mar 13, 2013 Seasonal Allergies Seasonal Allergies: No Current Status Communicates: Verbally Primary Language: [place] Preferred Spoken Language: [place]ican Is interpretation needed?: No Past Medical History Surgeries: Abdominal, Adenoidectomy, Coronary Stent, Gallbladder, Pacemaker, Tonsillectomy Sleep Apnea, COPD Currently Using CPAP: No Currently Using BIPAP: No Atrial Fibrillation, Chronic Edema/Swelling, Coronary Artery Disease, Deep Vein Thrombosis, Heart Attack, High Cholesterol, 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 COPD 2. Anemia of Chronic Disease 3. Morbid Obesity 4. Enterocutaneous Fistula history with custodial TPA- resolved 5. History of Villous adenoma sp polypectomy 6. DM- uncontrolled 7. CAD with history of PTCA Dr. De Leon 2010 8. A-flutter, possible A-Fib- did not tolerate anticogulant 9. HTN 10. HLP 11. Hypothyroidism 12. Extreme morbid obesity 13. History of DVT with intolerance to anticoagulant 14. Obesity hypoventilation syndrome 15. Chronic hypoxemic respiratory failure on home O2 16. Chronic pain/ narcotic dependent 17. Neuropathy 18. Arthritis 19. Glaucoma 20. Cataracts Past Surgical History 1. Infected abdominal mesh/hernia repair/fistula repair 2013 Dr. Zaman 2. Cholecystectomy 3. Tubal ligation 4. Abdominal Wall hernia repair Dr. Jonas 2003 5. D&C- Escobar 2008 6. Colonoscopy with polypectomy for colon ca (villous adenoma) 2005 Pritesh 7. Colonoscopy 2006 Pritesh 8. Tonsillectomy 9. Eye surgery 9. Cardiac Cathaterization with PTCA and stent [id number] Ion to mid LAD Family Medical History Reviewed Nursing Family Hx Cancer 03 MOTHER, Onset:40's - 50 Family history: Cardiovascular disease 03 FATHER, Onset:40's - 50 03 MOTHER, Onset:30's - 40 Myocardial infarction 03 MOTHER, Onset:30's - 40 Heart Disease, Cancer, CAD Under 55 Years Old Review of Systems Constitutional: see HPI Respiratory: dyspnea on exertion Physical Exam Physical Exam Vital Signs Vital Signs - First Documented 10/16/22 10/16/22 10/16/22 04:51 07:37 08:39 Temp 36.2 Pulse 67 Resp 16 B/P (MAP) 118/66 Pulse Ox 97 O2 Delivery Nasal Cannula O2 Flow Rate 3.00 FiO2 50 Capillary Refill : Less Than 3 Seconds Height, Weight, BMI Height: 5'2.00" Weight: 273lbs. 0.0oz. 123.371629df; 32.00 BMI Method:Stated General Appearance: Chronically ill, Other (on biPAP) Respiratory: No Accessory Muscle Use, No Respiratory Distress, Decreased Breath Sounds, Other (on biPAP) Neurologic/Psychiatric: Other (sedated on biPAP) Results Results/Procedures Labs Laboratory Tests 10/16/22 05:02 Patient resulted labs reviewed. Assessment/Plan Admission Diagnosis Assessment: Acute on chronic hypoxic respiratory failure Flash pulmonary edema requiring Lasix and biPAP NSTEMI PNA RAVEN COPD AF CAD Plan: IV abx Nebs BiPAP EICU appreciated ASA Lovenox Cardiology Admission Status: Inpatient Order (span 2 midnights) Reason for Inpatient Admission: NSTEMI PNA flash pulmonary edema Clinical Quality Measures AMI/AHF: ASA po Prior to arrival: KASSDIY Rodas DO October 16, 2022 06:14
[2022-10-16] MEDS ORDERED: ENOXAPARIN 80 MG/0.8 ML (LOVENOX) SYR SC ONE (06:15)
--- NOTE | 2022-10-16 06:44 | Diagnostic Imaging Report ---
INDICATION: Shortness of breath FINDINGS: Comparison is made with prior exam of 01/27/2022. There is cardiomegaly. There is mild venous congestion. No pleural effusion or pneumothorax. Pacemaker overlies left hemithorax. IMPRESSION: Cardiomegaly and mild central pulmonary venous congestion. Dictated by: Dictated on workstation # [id number]
[2022-10-16] MEDS ORDERED: PATIENT MAY USE OWN MEDS, ALL PO SCH (08:00)
[2022-10-16] MEDS ORDERED: LACTULOSE SYRUP 10GM/15ML (ENULOSE) 30ML UDC PO PRN (08:00)
[2022-10-16] MEDS ORDERED: BISACODYL 10 MG SUPP (DULCOLAX) PR PRN (08:00)
[2022-10-16] MEDS ORDERED: diphenhydrAMINE 50 MG/ML INJ (BENADRYL) IVP PRN (08:00)
[2022-10-16] MEDS ORDERED: NS IV 1000 ML 1,000 ML IV SCH (08:00)
[2022-10-16] MEDS ORDERED: MILK OF MAGNESIA 400 MG/5 ML 30 ML UDC PO PRN (08:00)
[2022-10-16] MEDS ORDERED: ONDANSETRON 4 MG/2 ML (SDV) Z0FRAN IV PRN (08:00)
[2022-10-16] MEDS ORDERED: MELATONIN 3 MG TABLET PO PRN (08:00)
[2022-10-16] MEDS ORDERED: ONDANSETRON 4 MG (ZOFRAN) ORAL DISSOLVE TAB PO PRN (08:00)
[2022-10-16] MEDS ORDERED: ACETAMINOPHEN 325 MG TABLET PO PRN (08:00)
[2022-10-16] MEDS ORDERED: CALCIUM CARBONATE 500 MG (TUMS) TAB.CHEW PO PRN (08:00)
[2022-10-16] MEDS ORDERED: ANTACID SUSP 30 ML UDC (MYLANTA) PO PRN (08:00)
[2022-10-16] MEDS ORDERED: diphenhydrAMINE 25 MG TAB (BENADRYL) PO PRN (08:00)
[2022-10-16] MEDS ORDERED: LORazepam INJ 2 MG/ML (ATIVAN) VIAL IVP PRN (08:00)
[2022-10-16] MEDS ORDERED: NS IV 500 ML 500 ML IV PRN (08:00)
[2022-10-16] MEDS ORDERED: polyethylene glycoL POWDER 17 GM (MIRALAX) PACK PO PRN (08:00)
[2022-10-16] MEDS ORDERED: LORazepam 0.5 MG (ATIVAN) TABLET PO PRN (08:00)
[2022-10-16] MEDS ORDERED: ENOXAPARIN 100 MG/1 ML (LOVENOX) SYR SC SCH (08:00)
[2022-10-16] MEDS: ASPIRIN E.C. 81 MG (ECOTRIN) TAB PO SCH (08:07)
[2022-10-16] MEDS: DOXYCYCLINE INJECTION 100 MG in NS (IVPB) 100 ML IV SCH ×2 (08:13→20:41)
[2022-10-16] MEDS: DOCUSATE SODIUM 100 MG (COLACE) CAP PO SCH ×2 (08:25→20:28)
[2022-10-16] MEDS: SENNOSIDES 8.6 MG (SENOKOT) TAB PO SCH ×2 (08:26→20:28)
[2022-10-16] MEDS ORDERED: ENOXAPARIN 80 MG/0.8 ML (LOVENOX) SYR SC SCH (08:30)
[2022-10-16 08:39] VITALS: BP 118/66
--- NOTE | 2022-10-16 09:05 | Tele-ICU Progress Note ---
Subjective Date Seen by a Provider: October 16, 2022 Subjective/Events-last exam This virtual visit was conducted using real time audio/video. Thank you for asking us to see this patient for respiratory insufficiency due to pneumonia, NSTEMI Recent events: PMH:CAD, RAVEN, HL, HTN, gout, DVT, hypothy., on home O2 2 LPM. PE: Comfortable, obese. VSS. O2 sat 97% on 3 LPM. HEENT: No obvious masses, adenopathy or JVD. Chest: Diminished, clear to auscultation. CV: RRR S1 S2 No murmur or added sounds. Abd: Non-tender. Bowel sounds Y. : Unremarkable. [place] 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 No obvious focal findings. Extremities: 2+ edema. Capillary refill < 3 seconds. Skin: unremarkable. Results: Elevated BUN 35, Creat 1.67, BG 134, Trop 1.134, lact 2.34, WCC 15.0. Decreased Hb 10.5. CXR: Poor quality, B infilts.. Available chart/ vitals / labs / images reviewed. Video assessment done using teleICU camera, rest of exam as per RN. A/P: Respiratory insufficiency: Continue present management with O2 Monitor for increasing oxygenation needs and/or need for intubation or NIV. Critical Care: critically ill patient. Cont. abx, NTG, kay., ASA. Discussed with DAVIDA Hernandez. Asked RN to reach out to eICU if any questions or concerns later. Time spent with patient/coordination of care with other health professionals (mins): 25 Sepsis Event Evaluation Height, Weight, BMI Height: 5'2.00" Weight: 273lbs. 0.0oz. 123.249116gw; 32.86 BMI Method:Stated Focused Exam Lactate Level 10/16/22 05:45: Lactic Acid Level 2.38*H 10/16/22 08:19: Lactic Acid Level 2.08*H Lactic Acid Level Laboratory Tests Test 10/16/22 05:45 10/16/22 08:19 Lactic Acid Level 2.38 MMOL/L (0.50-2.00) *H 2.08 MMOL/L (0.50-2.00) *H Exam Exam Patient acknowledged, consented, and participated in this virtual visit which was conducted using real time audio/video Vital Signs Date Time Temp Pulse Resp B/P (MAP) Pulse Ox O2 Delivery O2 Flow Rate FiO2 10/16/22 08:43 69 10/16/22 08:39 36.2 61 99 10/16/22 08:29 Nasal Cannula 3.00 10/16/22 07:37 61 19 118/66 99 Nasal Cannula 3.00 10/16/22 05:02 Nasal Cannula 3.00 10/16/22 04:51 36.2 67 16 97 Nasal Cannula 3.00 Height & Weight Height: 5'2.00" Weight: 273lbs. 0.0oz. 123.526795pk; 32.86 BMI Method:Stated General Appearance: Moderate Distress, Obese HEENT: PERRL/EOMI, Pharynx Normal Neck: Non Tender, Supple Respiratory: No Respiratory Distress, Wheezing (Few trace wheezes at the bases bilateral) Cardiovascular: Regular Rate, Rhythm, No Murmur, Other (Paced rhythm on the monitor) Capillary Refill: Less Than 3 Seconds Extremity: Normal Range of Motion, Non Tender, No Calf Tenderness, Pedal Edema (2+ bilateral) Neurologic/Psychiatric: Alert, Oriented x3 Skin: Normal Color, Warm/Dry Results Lab Laboratory Tests 10/16/22 05:02 Assessment/Plan Assessment/Plan See free text. Critical Care: Critically Ill Patient KALEE SWAIN MD October 16, 2022 09:05
[2022-10-16] MEDS ORDERED: RT-ALBUTEROL/IPRATROPIUM 3 ML (DUONEB) VIAL INH PRN ×2 (09:15→12:45)
[2022-10-16] MEDS ORDERED: FUROSEMIDE 40 MG/4 ML INJ (LASIX) ONE (10:46)
[2022-10-16] MEDS: inSUlin ASPART (NovoLOG) 1 UNIT/0.01 ML (CHARGE PER UNIT) SC SCH ×3 (10:49→21:03)
[2022-10-16] MEDS: morphine INJ 4 MG/ML 1 ML (VIAL/SYRINGE) IV PRN ×2 (10:56→19:25)
[2022-10-16] MEDS ORDERED: FUROSEMIDE 40 MG/4 ML INJ (LASIX) IVP ONE (11:00)
--- NOTE | 2022-10-16 11:21 | Diagnostic Imaging Report ---
INDICATION: Chest pain Comparison is made with prior examination from earlier same day at 5:12 AM. This exam is done at 11:00 AM FINDINGS: There is cardiomegaly. There is some venous congestion. There are bibasilar infiltrates. No pleural effusion or pneumothorax. Mediastinum is unremarkable. Pacemaker overlies left hemithorax. IMPRESSION: Bibasilar pulmonary infiltrates. Cardiomegaly and some central pulmonary venous congestion. Dictated by: Dictated on workstation # [id number]
[2022-10-16 11:22] VITALS: BP 109/63
[2022-10-16] MEDS ORDERED: MEROPENEM 500 MG in NS (IVPB) 100 ML IV SCH (12:00)
--- NOTE | 2022-10-16 12:48 | Consultation-Cardiology ---
HPI-Cardiology Cardiology Consultation: Date of Consultation 10/16/22 Time Seen by a Provider: 11:15 Date of Admission Attending Physician Aden Mckeon MD Admitting Physician Admitting Physician: Claudia Pino DO Attending Physician: Claudia Pino DO Consulting Physician GARIMA MISTRY MD, MA, FACP, FACC, [facility] [place] Physician requesting consult: Dr Pino Primary residence hall director: Dr De Leon HPI: Chief Complaint: Reason for Card consult: Elevated troponin 79 yo woman admitted to Dr Pino with chest discomfort and shortness of breath. Shortness of breath worse post admission. Currently on BiPAP and shortness of breath is better. Denies any cp at this time. Chest pain earlier was L parasternal, sharp, lasting several hours, unrelieved with nitro, relieved with morphine, not associated with other symptoms. Has chronic shortness of breath with exertion Review of Systems-Cardiology Review of Systems Constitutional: malaise, tiredness; No weight loss, No weight gain Ears/Nose/Throat: No ear discharge, No nasal drainage, No recent hearing loss, No ulcerations Respiratory: As described under HPI Cardiovascular: As described under HPI Gastrointestinal: No nausea, No vomiting Genitourinary: No dysuria, No hematuria, No urine frequency changes Musculoskeletal: back pain (chronic) Skin: No rash, No ulcerations Psychiatric/Neurological: No seizure, No focal weakness, No syncope Hematologic: No bleeding abnormalities All Other Systems Reviewed Negative Unless Noted: Yes OFC-Hjyvta-Djtcrj Hx Patient Social History Smoking Status: Never a Smoker 2nd Hand Smoke Exposure: No Have you traveled recently?: No Alcohol Use?: No Pt feels they are or have been: No Immunizations Up To Date Tetanus Booster (TDap): Unknown Date of Pneumonia Vaccine: Mar 13, 2013 Date of Influenza Vaccine: May 13, 2021 Past Medical History PMH As described under Assessment. Family Medical History Family Medical History: She reports her father had CAD diagnosed in his late 40's. Her mother had CAD diagnosed in her late 30's, early 40's with an IN. Family History: Cancer 03 MOTHER, Onset:40's - 50 Family history: Cardiovascular disease 03 FATHER, Onset:40's - 50 03 MOTHER, Onset:30's - 40 Myocardial infarction 03 MOTHER, Onset:30's - 40 Allergies and Home Medications Allergies Coded Allergies: ceftriaxone (Verified Allergy, Unknown, pt has received Zosyn w/o issue, 05/09/19) ibuprofen (Verified Allergy, Unknown, PT TAKES ASA AT HOME, 08/02/17) PER MED REC diazepam (Verified Adverse Reaction, Severe, 12/04/18) Patient Home Medication List Home Medication List Reviewed: Yes Allopurinol (Allopurinol) 100 Mg Tablet, 100 MG PO DAILY, (Reported) Entered as Reported by: HALLE MANZANARES on 06/14/21 1046 Last Action: Reviewed Aspirin (Aspirin EC) 81 Mg Tablet.dr, 81 MG PO DAILY, (Reported) Entered as Reported by: NANO KHALIL on 01/27/22 124 Last Action: Reviewed Atorvastatin Calcium (Atorvastatin Calcium) 80 Mg Tablet, 80 MG PO HS, (Reported) Entered as Reported by: NANO KHALIL on 01/27/22 124 Last Action: Reviewed Bimatoprost (Lumigan) 0.01 % Drops, 1 DROP OP HS, (Reported) Entered as Reported by: NANO KHALIL on 01/27/22 124 Last Action: Reviewed Carvedilol (Carvedilol) 3.125 Mg Tablet, 3.125 MG PO BID, (Reported) Entered as Reported by: MARTHA RAMOS on 01/14/22 1400 Last Action: Reviewed Docusate Sodium (Stool Softener) 100 Mg Capsule, 200 MG PO DAILY, (Reported) Entered as Reported by: HARPREET PITT on 06/15/21 1214 Last Action: Reviewed Furosemide (Furosemide) 20 Mg Tablet, 20 MG PO DAILY, (Reported) Entered as Reported by: HALLE MANZANARES on 06/14/21 104 Last Action: Reviewed Isosorbide Mononitrate (Isosorbide Mononitrate ER) 30 Mg Tab.er.24h, 30 MG PO DAILY, (Reported) Entered as Reported by: NANO KHALIL on 01/27/22 124 Last Action: Reviewed Levothyroxine Sodium (Levothyroxine) 150 Mcg Capsule, 150 MCG PO DAILY, (Reported) Entered as Reported by: NANO KHALIL on 01/27/22 124 Last Action: Reviewed Losartan Potassium (Losartan Potassium) 25 Mg Tablet, 25 MG PO DAILY, (Reported) Entered as Reported by: NANO KHALIL on 01/27/22 124 Last Action: Reviewed Multivits-Min/Iron/FA/Lutein (Centrum Silver Women Tablet) 1 Each Tablet, 1 EACH PO DAILY, (Reported) Entered as Reported by: HALLE MANZANARES on 06/14/21 1046 Last Action: Reviewed Nitroglycerin (Nitroglycerin) 0.4 Mg Tab.subl, 0.4 MG SL UD PRN for CHEST PAIN, (Reported) Entered as Reported by: NANO KHALIL on 01/27/22 1245 Last Action: Reviewed Oxycodone HCl/Acetaminophen (Percocet 7.5-325 mg Tablet) 1 Each Tablet, 1 TAB PO Q6H PRN for PAIN-MODERATE, (Reported) Entered as Reported by: NANO KHALIL on 01/27/22 124 Last Action: Reviewed Potassium Chloride (Potassium Chloride) 10 Meq Tab.er.prt, 10 MEQ PO BID, (Reported) Entered as Reported by: CASSIE KHAN on 07/17/19 0908 Last Action: Reviewed Ticagrelor (Brilinta) 90 Mg Tablet, 90 MG PO BID, (Reported) Entered as Reported by: NANO KHALIL on 01/27/22 124 Last Action: Reviewed Tiotropium [place] (Spiriva) 18 Mcg Aerp, 2 PUFF IH 1400, (Reported) Entered as Reported by: HALLE MANZANARES on 06/14/21 1046 Last Action: Reviewed Physical Exam-Cardiology Physical Exam Vital Signs/I&O 10/16/22 10/16/22 10/16/22 10/16/22 04:51 05:02 07:37 08:10 Temp 36.2 Pulse 67 61 64 Resp 16 19 B/P (MAP) 118/66 122/56 (83) Pulse Ox 97 99 93 O2 Delivery Nasal Cannula Nasal Cannula Nasal Cannula Nasal Cannula O2 Flow Rate 3.00 3.00 3.00 3.00 10/16/22 10/16/22 10/16/22 10/16/22 08:15 08:29 08:30 08:39 Temp 36.2 Pulse 64 64 61 B/P (MAP) 117/64 (103) 121/55 (78) Pulse Ox 96 95 92 O2 Delivery Nasal Cannula Nasal Cannula Nasal Cannula O2 Flow Rate 3.00 3.00 3.00 FiO2 50 10/16/22 10/16/22 10/16/22 10/16/22 08:43 08:45 09:00 10:00 Pulse 69 74 78 73 B/P (MAP) 124/64 (98) 114/62 (88) 109/62 (77) Pulse Ox 98 96 99 O2 Delivery Nasal Cannula Nasal Cannula Nasal Cannula O2 Flow Rate 3.00 3.00 3.00 10/16/22 10/16/22 10/16/22 10/16/22 11:00 11:13 11:22 11:58 Temp 36.0 Pulse 101 77 Resp 23 B/P (MAP) 109/68 (82) Pulse Ox 93 92 O2 Delivery Nasal Cannula NIV Bilevel O2 Flow Rate 3.00 50.00 10/16/22 10/16/22 10/16/22 10/16/22 12:00 12:00 12:27 12:50 Pulse 66 62 B/P (MAP) 123/63 (79) Pulse Ox 93 97 O2 Delivery NIV Bilevel NIV Bilevel NIV Bilevel O2 Flow Rate 50.00 40.00 FiO2 40 10/16/22 13:00 Pulse 62 B/P (MAP) 135/76 (101) Pulse Ox 99 O2 Delivery NIV Bilevel O2 Flow Rate 40.00 Capillary Refill : Less Than 3 Seconds Constitutional: AAO x 3, well-developed, well-nourished, other (on BiPAP) HEENT: PERRL, EOMI, hearing is well preserved; No xanthelasmas are seen Neck: carotid pulses are 2 + bilaterally, with good upstrokes Respiratory: No accessory muscle use; chest expansion is symmetric, chest is b ilaterally symmetric, other (fair to good, bilateral air entry) Cardiovascular: regular rate-rhythm, S1 and S2, systolic murmur (soft JITENDRA at card base) Gastrointestinal: No tender; soft; No guarding, No rebound; audible bowel sounds Extremities: No clubbing, No cyanosis, No significant edema Neurologic/Psychiatric: oriented x 3, other (moves all limbs equally) Skin: No rash on exposed areas, No ulcerations on exposed areas Data Review Labs Laboratory Tests 10/16/22 05:02: White Blood Count 15.0H, Red Blood Count 3.71L, Hemoglobin 10.5L, Hematocrit 34L , Mean Corpuscular Volume 91, Mean Corpuscular Hemoglobin 28, Mean Corpuscular Hemoglobin Concent 31L, Red Cell Distribution Width 16.9H, Platelet Count 275, Mean Platelet Volume 9.6, Immature Granulocyte % (Auto) 1, Neutrophils (%) (Auto) 72, Lymphocytes (%) (Auto) 17, Monocytes (%) (Auto) 7, Eosinophils (%) (Auto) 2, Basophils (%) (Auto) 0, Neutrophils # (Auto) 10.8H, Lymphocytes # (Auto) 2.6, Monocytes # (Auto) 1.1H, Eosinophils # (Auto) 0.4H, Basophils # (Auto) 0.1, Immature Granulocyte # (Auto) 0.1, Neutrophils % (Manual) 80, Lymphocytes % (Manual) 13, Monocytes % (Manual) 5, Eosinophils % (Manual) 2, Anisocytosis SLIGHT, Elliptocytes SLIGHT, Prothrombin Time 12.8, INR Comment 0.9, Activated Partial Thromboplast Time 27, Sodium Level 142, Potassium Level 3.8, Chloride Level 104, Carbon Dioxide Level 22, Anion Gap 16H, Blood Urea Nitrogen 35H, Creatinine 1.67H, Estimat Glomerular Filtration Rate 33, BUN/Creatinine Ratio 21, Glucose Level 134H, Calcium Level 9.5, Corrected Calcium 9.7, Magnesium Level 1.9, Total Bilirubin 0.3, Aspartate Amino Transf (AST/SGOT) 17, Alanine Aminotransferase (ALT/SGPT) 14, Alkaline Phosphatase 124, Myoglobin 153.8H, Troponin I 1.134*H, B-Type Natriuretic Peptide 91.6, Total Protein 7.3, Albumin 3.8 10/16/22 05:45: Lactic Acid Level 2.38*H 10/16/22 08:19: Lactic Acid Level 2.08*H 10/16/22 10:12: Lactic Acid Level 1.33 10/16/22 10:49: Glucometer 123H Laboratory Tests 10/16/22 05:02 A/P-Cardiology Assessment/Admission Diagnosis Chest pain and mildly elevated troponin - NSTEMI vs type 2 IN due to pneumonia and sepsis and CHF Pneumonia and sepsis - managed by Dr Pino Renal insufficiency - NATI stage 1 on CKD stage 3a Coronary artery disease, - History of stent to LAD using 3.012 mm Ion stent to the LAD. - Cardiac catheterization done in July 2015 revealed patent stent in the LAD with otherwise nonobstructive disease. - Cardiac catheterization done July 12, 2018 revealed patent stent in the mid LAD with mild disease at the mid to distal LAD nonobstructive disease, otherwise mild coronary artery disease - Acute myocardial infarction on June 13, 2021 underwent emergency cardiac catheterization with Dr. Haque, patent stent in the mid LAD however there was severe disease between the 2 stents of the distal LAD, underwent drug-eluting stent placement Skypoint stent 3.5 x 15 mm with excellent results. Maintained on ASA and Brilinta - Stress test in January 2022 with mild reversible ischemia involving the apex and anteroapical segment with stress score 6, SDS 6, ejection fraction 67%. - Cardiac catheterization was carried out on January 27, 2022 showing moderate to severe proximal LAD stenosis with subtotal occlusion within the stent in the proximal LAD, unsuccessful balloon angioplasty then stenting of the LAD, intervention was noted with Dr. Haque with excellent results. Mild disease otherwise. Ac on ch diastolic CHF - Echocardiogram done in July 2019 showing normal left ventricular size, EF 50-55 percent, mildly dilated left atrium, mild to moderate aortic valve stenosis with a peak gradient 29 mmHg mean gradient 50 mmHg, valve area 1.7 cm, PA pressure 40 mmHg. Continue to monitor - 2D echo was done on December 13, 2020 showing normal left ventricular size, diffuse hypokinesia, EF 30 to 35%, hypokinesia of anterior wall and true apex anterolateral wall anteroseptum. Left revealed vegetation, mild aortic valve stenosis, PA pressure 30 mmHg. - EF on MPI of Jan 2022 was 67% Patient was unable to tolerate beta-horacio due to bradycardia, we will start low-dose since she had a pacemaker implanted Sick Sinus Syndrome - Underwent Dual chamber permanent pacemaker implantation on 07/08/21, [employer] [place] XT DR ZAVALA. - Monitored by Dr De Leon Intolerance to anticoagulation due to anemia and GI bleed. Hypertension, by history Hyperlipidemia - treated with statin and monitored by Dr De Leon Mild bilateral carotid stenosis - monitored by Dr De Leon COPD, oxygen dependent History of deep venous thrombosis - Xarelto was discontinued by Dr. 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 Elevated BMI History of tonsillectomy, colonoscopy. H/o excision of facial skin cancer by Dr. Lange Discussion and Recomendations * Complex management due to multisystem involvement * Treat pneumonia, sepsis, and CHF * Monitor labs * Consider heart cath if symptoms recurrent (preferably after sepsis controlled and renal insufficiency improved) Clinical Quality Measures AMI/AHF: ASA po Prior to arrival: [facility]ARIMA Mack [facility] October 16, 2022 12:48
[2022-10-16] MEDS: MEROPENEM 500 MG in NS (IVPB) 100 ML IV SCH ×2 (14:37→20:41)
[2022-10-16] MEDS ORDERED: RT-ALBUTEROL/IPRATROPIUM 3 ML (DUONEB) VIAL INH SCH (15:00)
[2022-10-16] MEDS: RT-ALBUTEROL/IPRATROPIUM 3 ML (DUONEB) VIAL INH SCH ×3 (15:02→22:45)
[2022-10-16 15:03] VITALS: BP 131/63
[2022-10-16] MEDS: ENOXAPARIN 80 MG/0.8 ML (LOVENOX) SYR SC SCH (17:34)
[2022-10-17] MEDS: RT-ALBUTEROL/IPRATROPIUM 3 ML (DUONEB) VIAL INH SCH ×6 (02:17→21:57)
[2022-10-17 04:25] LABS: BASOPHILS % (AUTO) 0 % (0-10); EOSINOPHILS % (AUTO) 0 % (0-10); HEMATOCRIT 30 % (35-52); HEMOGLOBIN 9.3 g/dL (11.5-16.0); LYMPHOCYTES # (AUTO) 2.1 10^3/uL (1.0-4.0); LYMPHOCYTES % (AUTO) 14 % (12-44); MEAN CORPUSCULAR HEMOGLOBIN 28 pg (25-34); MEAN CORPUSCULAR HGB CONC 31 g/dL (32-36); MEAN CORPUSCULAR VOLUME 89 fL (80-99); MEAN PLATELET VOLUME 10.4 fL (9.0-12.2); MONOCYTES # (AUTO) 1.2 10^3/uL (0.0-1.0); MONOCYTES % (AUTO) 8 % (0-12); NEUTROPHILS # (AUTO) 11.4 10^3/uL (1.8-7.8); NEUTROPHILS % (AUTO) 77 % (42-75); PLATELET COUNT 216 10^3/uL (130-400); WHITE BLOOD COUNT 14.8 10^3/uL (4.3-11.0)
[2022-10-17 04:44] LABS: POTASSIUM 3.7 MMOL/L (3.6-5.0)
[2022-10-17 04:45] LABS: ALBUMIN 3.2 GM/DL (3.2-4.5)
[2022-10-17 04:47] LABS: TOTAL PROTEIN 6.3 GM/DL (6.4-8.2)
[2022-10-17 04:49] LABS: BILIRUBIN,TOTAL 0.5 MG/DL (0.1-1.0)
[2022-10-17 04:50] LABS: PHOSPHORUS 3.8 MG/DL (2.3-4.7)
[2022-10-17 04:51] LABS: CREATININE SERUM 1.31 MG/DL (0.60-1.30)
[2022-10-17 04:54] LABS: MAGNESIUM 1.8 MG/DL (1.6-2.4)
[2022-10-17] MEDS: inSUlin ASPART (NovoLOG) 1 UNIT/0.01 ML (CHARGE PER UNIT) SC SCH ×4 (05:17→20:49)
[2022-10-17] MEDS: MEROPENEM 500 MG in NS (IVPB) 100 ML IV SCH ×3 (05:36→22:00)
[2022-10-17] MEDS: ENOXAPARIN 80 MG/0.8 ML (LOVENOX) SYR SC SCH ×2 (05:37→17:39)
[2022-10-17] MEDS ORDERED: KCL 20 MEQ TAB (K-DUR) PO SCH (06:00)
[2022-10-17] MEDS ORDERED: POTASSIUM CL 10MEQ/50ML IVPB 50 ML IV SCH (06:00)
[2022-10-17] MEDS ORDERED: MAGNESIUM 1 GM/100 ML IVPB 100 ML IV SCH (06:00)
--- NOTE | 2022-10-17 07:02 | Progress Note - Hospitalist ---
Subjective HPI/CC On Admission Date Seen by Provider: October 17, 2022 Time Seen by Provider: 11:00 CC: Dyspnea with NSTEMI and PNA HPI: This is a 67yoWF clinic patient of [facility] who has a h/o CAD and COPD who presented to the ER with dyspnea and found to have elevated troponin and evidence of AECOPD and PNA. Abx and NSTEMI meds initiated but upon arrival to ICU she was found to be in flash pulmonary edema so EICU initiated Lasix and biPAP and currently she is resting. No other details obtained. Subjective/Events-last exam Doing much better Moving to 4th Updated family at bedside No longer needs BiPAP Review of Systems General: Fatigue, Malaise Focused Exam Lactate Level 10/16/22 05:45: Lactic Acid Level 2.38*H 10/16/22 08:19: Lactic Acid Level 2.08*H 10/16/22 10:12: Lactic Acid Level 1.33 Objective Exam Vital Signs Vital Signs Date Time Temp Pulse Resp B/P (MAP) Pulse Ox O2 Delivery O2 Flow Rate FiO2 10/17/22 14:00 36.5 80 18 127/58 (81) 93 High Flow N/C 4.00 10/16/22 12:00 40 Capillary Refill : Less Than 3 Seconds General Appearance: No Apparent Distress, WD/WN Respiratory: No Accessory Muscle Use, No Respiratory Distress, Decreased Breath Sounds Cardiovascular: Regular Rate, Rhythm Neurologic/Psychiatric: Alert, Oriented x3 Results/Procedures Lab Laboratory Tests 10/17/22 04:05 Patient resulted labs reviewed. Assessment/Plan Assessment and Plan Assess & Plan/Chief Complaint Assessment: Acute on chronic hypoxic respiratory failure Flash pulmonary edema requiring Lasix and biPAP NSTEMI PNA RAVEN COPD AF CAD Plan: IV abx Nebs BiPAP EICU appreciated [facility] Critically Ill Patient Clinical Quality Measures AMI/AHF: ASA po Prior to arrival: KASSIDY Rodas DO October 17, 2022 06:59
--- NOTE | 2022-10-17 07:41 | Diagnostic Imaging Report ---
INDICATION: Pneumonia COMPARISON: 10/16/2022 TECHNIQUE: 10/17/2022 FINDINGS: Pacer device is again identified with a battery pack overlying left chest. Significant patient rotation is again identified. The cardiac silhouette appears enlarged. Central pulmonary vascular congestion is again seen. Significant patchy mixed interstitial and airspace opacities are again noted within the bilateral lungs, right greater than left. These appear slightly worsened since the prior examination. No large-volume left pleural effusion. Developing small right pleural effusion is suspected. No pneumothorax. Osseous structures appear stable IMPRESSION: Worsening extensive right greater than left pulmonary opacities with associated developing small right pleural effusion. Persistent cardiomegaly with central pulmonary vascular congestion. Dictated by: Dictated on workstation # [id number]
[2022-10-17] MEDS: SENNOSIDES 8.6 MG (SENOKOT) TAB PO SCH ×2 (08:27→20:41)
[2022-10-17] MEDS: DOXYCYCLINE INJECTION 100 MG in NS (IVPB) 100 ML IV SCH ×2 (08:27→20:42)
[2022-10-17] MEDS: DOCUSATE SODIUM 100 MG (COLACE) CAP PO SCH ×2 (08:27→20:41)
[2022-10-17] MEDS: ASPIRIN E.C. 81 MG (ECOTRIN) TAB PO SCH (08:28)
--- NOTE | 2022-10-17 08:43 | Tele-ICU Progress Note ---
Subjective Date Seen by a Provider: October 17, 2022 Subjective/Events-last exam This virtual visit was conducted using real time audio/video. Thank you for asking us to see this patient for respiratory insufficiency due to pneumonia, NSTEMI. Recent events: required IV lasix and BIPAP 5/ for possible flash pulmonary edema. Much improved today PMH:CAD, RAVEN, HL, HTN, gout, DVT, hypothy., on home O2 2 LPM. PE: Comfortable, obese. VSS. O2 sat 94% on 2 LPM. HEENT: No obvious masses, adenopathy or JVD. Chest: Diminished, clear to auscultation. CV: RRR S1 S2 No murmur or added sounds. Abd: Non-tender. Bowel sounds Y. : Unremarkable. [place] PIGEON FANCIER/psychiatric: Grossly intact. No obvious focal findings. Extremities: 2+ edema. Capillary refill < 3 seconds. Skin: unremarkable. Results: Elevated BUN 31, Creat 1.31, BG 1326 Trop 1.134, l WCC 14.8. Decreased Hb 9.3. CXR: B infilts. much worse on R, Pacemaker present. Available chart/ vitals / labs / images reviewed. Video assessment done using teleICU camera, rest of exam as per RN. A/P: Respiratory insufficiency: Continue present management with O2, PRN BiPAP Monitor for increasing oxygenation needs and/or need for intubation or NIV. Critical Care: critically ill patient. Cont. abx, NTG, kay., ASA, metoprolol, SSI. Discussed with RN Bernice. Asked RN to reach out to eICU if any questions or concerns later. Time spent with patient/coordination of care with other health professionals (mins): 20 Sepsis Event Evaluation Height, Weight, BMI Height: 5'2.00" Weight: 273lbs. 0.0oz. 123.217592cx; 32.86 BMI Method:Stated Focused Exam Lactate Level 10/16/22 05:45: Lactic Acid Level 2.38*H 10/16/22 08:19: Lactic Acid Level 2.08*H 10/16/22 10:12: Lactic Acid Level 1.33 Exam Exam Patient acknowledged, consented, and participated in this virtual visit which was conducted using real time audio/video Vital Signs Date Time Temp Pulse Resp B/P (MAP) Pulse Ox O2 Delivery O2 Flow Rate FiO2 5/7/23 07:22 Nasal Cannula 3.00 10/17/22 07:20 66 10/17/22 07:20 37.0 10/17/22 07:15 98 Nasal Cannula 4.00 10/17/22 07:00 71 103/53 (70) 96 High Flow N/C 4.00 10/17/22 06:00 69 114/57 (76) 97 High Flow N/C 4.00 10/17/22 05:00 76 120/56 (77) 96 High Flow N/C 4.00 10/17/22 04:00 97 High Flow N/C 4.00 10/17/22 04:00 69 101/49 (66) 93 High Flow N/C 4.00 10/17/22 04:00 37.2 10/17/22 03:00 73 101/61 (74) 97 High Flow N/C 4.00 10/17/22 02:17 96 Nasal Cannula 4.00 10/17/22 02:00 77 113/58 (76) 94 High Flow N/C 4.00 10/17/22 01:00 71 10/17/22 01:00 75 99/52 (68) 97 High Flow N/C 4.00 10/17/22 00:00 37.0 10/17/22 00:00 69 104/50 (68) 96 High Flow N/C 4.00 10/16/22 23:59 97 High Flow N/C 4.00 10/16/22 23:00 76 117/44 (68) 98 High Flow N/C 4.00 10/16/22 22:46 96 Nasal Cannula 4.00 10/16/22 22:00 80 107/46 (66) 98 High Flow N/C 4.00 10/16/22 21:00 80 105/48 (67) 95 High Flow N/C 4.00 10/16/22 20:00 High Flow N/C 4.00 10/16/22 20:00 73 112/54 (73) 94 High Flow N/C 4.00 10/16/22 20:00 97 High Flow N/C 4.00 10/16/22 19:41 37.6 10/16/22 19:00 78 10/16/22 19:00 73 119/63 (81) 96 High Flow N/C 4.00 10/16/22 18:48 95 Nasal Cannula 4.00 10/16/22 18:00 72 123/66 (85) 95 High Flow N/C 4.00 10/16/22 17:00 68 124/67 (86) 100 NIV Bilevel 40.00 10/16/22 16:00 65 139/75 (96) 98 NIV Bilevel 40.00 10/16/22 16:00 36.3 10/16/22 15:46 100 NIV Bilevel 3.00 10/16/22 15:03 62 20 100 40.00 10/16/22 15:00 65 131/63 (85) 100 NIV Bilevel 40.00 10/16/22 14:00 63 120/59 (79) 100 NIV Bilevel 40.00 10/16/22 13:00 62 135/76 (101) 99 NIV Bilevel 40.00 10/16/22 12:50 NIV Bilevel 40.00 10/16/22 12:27 62 10/16/22 12:00 97 NIV Bilevel 40 10/16/22 12:00 66 123/63 (79) 93 NIV Bilevel 50.00 10/16/22 11:58 36.0 10/16/22 11:22 77 23 92 10/16/22 11:13 NIV Bilevel 50.00 10/16/22 11:00 101 109/68 (82) 93 Nasal Cannula 3.00 10/16/22 10:00 73 109/62 (77) 99 Nasal Cannula 3.00 10/16/22 09:00 78 114/62 (88) 96 Nasal Cannula 3.00 10/16/22 08:45 74 124/64 (98) 98 Nasal Cannula 3.00 10/16/22 08:43 69 10/16/22 08:39 36.2 61 92 50 I & O 10/17/22 06:59 Intake Total 625 ml Output Total 2775 ml Balance -2150 ml Height & Weight Height: 5'2.00" Weight: 273lbs. 0.0oz. 123.467019td; 32.86 BMI Method:Stated General Appearance: Moderate Distress, Obese HEENT: PERRL/EOMI, Pharynx Normal Neck: Non Tender, Supple Respiratory: No Respiratory Distress, Wheezing (Few trace wheezes at the bases bilateral) Cardiovascular: Regular Rate, Rhythm, No Murmur, Other (Paced rhythm on the monitor) Capillary Refill: Less Than 3 Seconds Extremity: Normal Range of Motion, Non Tender, No Calf Tenderness, Pedal Edema (2+ bilateral) Neurologic/Psychiatric: Alert, Oriented x3 Skin: Normal Color, Warm/Dry Results Lab Laboratory Tests 10/16/22 05:02 10/17/22 04:05 Assessment/Plan Assessment/Plan See free text. Critical Care: Critically Ill Patient KALEE SWAIN MD October 17, 2022 08:43
[2022-10-17] MEDS ORDERED: KCL 20 MEQ TAB (K-DUR) PO ONE (09:00)
[2022-10-17] MEDS ORDERED: NITROGLYCERIN 0.4 MG SL TABS BTL 25'S SL PRN (11:00)
[2022-10-17] MEDS ORDERED: oxyCODONE/APAP 7.5-325 MG (PERCOCET 7.5) TABLET PO PRN (11:00)
[2022-10-17 14:00] VITALS: BP 127/58
[2022-10-17] MEDS ORDERED: UMECLIDINIUM BROMIDE (INCRUSE ELLIPTA) 7'S IH SCH (14:00)
[2022-10-17] MEDS ORDERED: TIOTROPIUM BROMIDE (SPIRIVA) 5'S INHALER IH SCH (14:00)
[2022-10-17 16:05] VITALS: BP 105/52
--- NOTE | 2022-10-17 17:28 | Progress Note - Cardiology ---
Cardiology SOAP Progress Note Subjective: She says she feels much better today No cp or palp or syncope or shortness of breath at rest No n/v/d No focal weakness Some gen weakness and malaise present Objective: I&O/Vital Signs 10/17/22 10/17/22 10/17/22 10/17/22 06:00 07:00 07:15 07:20 Temp 37.0 Pulse 69 71 B/P (MAP) 114/57 (76) 103/53 (70) Pulse Ox 97 96 98 O2 Delivery High Flow N/C High Flow N/C Nasal Cannula O2 Flow Rate 4.00 4.00 4.00 10/17/22 10/17/22 10/17/22 10/17/22 07:20 07:22 08:00 08:00 Pulse 66 73 B/P (MAP) 106/48 (67) Pulse Ox 95 97 O2 Delivery Nasal Cannula High Flow N/C High Flow N/C O2 Flow Rate 3.00 4.00 2.00 10/17/22 10/17/22 10/17/22 10/17/22 09:08 10:00 10:13 11:11 Pulse 80 77 72 B/P (MAP) 99/65 (76) 123/66 (85) 105/51 (69) Pulse Ox 93 95 95 92 O2 Delivery High Flow N/C High Flow N/C Nasal Cannula High Flow N/C O2 Flow Rate 4.00 4.00 3.00 4.00 10/17/22 10/17/22 10/17/22 10/17/22 12:08 12:13 13:57 14:00 Temp 36.5 Pulse 76 75 80 Resp 18 B/P (MAP) 120/51 (74) 127/58 (81) Pulse Ox 95 95 93 O2 Delivery High Flow N/C High Flow N/C High Flow N/C O2 Flow Rate 4.00 4.00 4.00 10/17/22 10/17/22 15:29 16:05 Temp 37.2 Pulse 78 Resp 18 B/P (MAP) 105/52 (69) Pulse Ox 97 94 O2 Delivery Nasal Cannula High Flow N/C O2 Flow Rate 3.00 3.00 10/17/22 00:00 Intake Total 375 ml Output Total 2250 ml Balance -1875 ml Weight (Pounds): 273 Weight (Ounces): 0.0 Weight (Calculated Kilograms): 123.030287 Constitutional: AAO x 3, well-developed, well-nourished, other (on BiPAP) Respiratory: No accessory muscle use; chest expansion is symmetric, chest is bilaterally symmetric, other (fair to good, bilateral air entry) Cardiovascular: regular rate-rhythm, S1 and S2, systolic murmur (soft JITENDRA at card base) Gastrointestional: No tender; soft; No guarding, No rebound; audible bowel sounds Extremities: No clubbing, No cyanosis, No significant edema Neurologic/Psychiatric: oriented x 3, other (moves all limbs equally) Skin: No rash on exposed areas, No ulcerations on exposed areas Results/Procedures: Labs Laboratory Tests 10/16/22 20:39: Glucometer 120H 10/17/22 04:05: White Blood Count 14.8H, Red Blood Count 3.37L, Hemoglobin 9.3L, Hematocrit 30L, Mean Corpuscular Volume 89, Mean Corpuscular Hemoglobin 28, Mean Corpuscular Hemoglobin Concent 31L, Red Cell Distribution Width 17.1H, Platelet Count 216, Mean Platelet Volume 10.4, Immature Granulocyte % (Auto) 0, Neutrophils (%) (Auto) 77H, Lymphocytes (%) (Auto) 14, Monocytes (%) (Auto) 8, Eosinophils (%) (Auto) 0, Basophils (%) (Auto) 0, Neutrophils # (Auto) 11.4H, Lymphocytes # (Auto) 2.1, Monocytes # (Auto) 1.2H, Eosinophils # (Auto) 0.0, Basophils # (Auto) 0.0, Immature Granulocyte # (Auto) 0.1, Sodium Level 141, Potassium Level 3.7, Chloride Level 103, Carbon Dioxide Level 23, Anion Gap 15H, Blood Urea Nitrogen 31H, Creatinine 1.31H, Estimat Glomerular Filtration Rate 44, BUN/Creatinine Ratio 24, Glucose Level 126H, Calcium Level 9.0, Corrected Calcium 9.6, Phosphorus Level 3.8, Magnesium Level 1.8, Total Bilirubin 0.5, Aspartate Amino Transf (AST/SGOT) 18, Alanine Aminotransferase (ALT/SGPT) 13, Alkaline Phosphatase 96, Total Protein 6.3L, Albumin 3.2, Triglycerides Level 227H, Cholesterol Level 126, LDL Cholesterol Direct 46, VLDL Cholesterol 45H, HDL Cholesterol 25L Microbiology 10/16/22 MRSA Screen - Final, Complete MRSA not isolated 10/16/22 Blood Culture - Preliminary, Resulted No growth Laboratory Tests 10/16/22 05:02 10/17/22 04:05 A/P: Assessment: Chest pain and mildly elevated troponin - NSTEMI vs type 2 FL due to pneumonia and sepsis and CHF Pneumonia and sepsis - managed by Dr Pino Renal insufficiency - NATI stage 1 on CKD stage 3a; NATI improving Coronary artery disease, - History of stent to LAD using 3.012 mm Ion stent to the LAD. - Cardiac catheterization done in July 2015 revealed patent stent in the LAD with otherwise nonobstructive disease. - Cardiac catheterization done July 12, 2018 revealed patent stent in the mid LAD with mild disease at the mid to distal LAD nonobstructive disease, otherwise mild coronary artery disease - Acute myocardial infarction on June 13, 2021 underwent emergency cardiac catheterization with Dr. Haque, patent stent in the mid LAD however there was severe disease between the 2 stents of the distal LAD, underwent drug-eluting stent placement Skypoint stent 3.5 x 15 mm with excellent results. Maintained on ASA and Brilinta - Stress test in January 2022 with mild reversible ischemia involving the apex and anteroapical segment with stress score 6, SDS 6, ejection fraction 67%. - Cardiac catheterization was carried out on January 27, 2022 showing moderate to severe proximal LAD stenosis with subtotal occlusion within the stent in the proximal LAD, unsuccessful balloon angioplasty then stenting of the LAD, intervention was noted with Dr. Haque with excellent results. Mild disease otherwise. Ac on ch diastolic CHF - Echocardiogram done in July 2019 showing normal left ventricular size, EF 50-55 percent, mildly dilated left atrium, mild to moderate aortic valve stenosis with a peak gradient 29 mmHg mean gradient 50 mmHg, valve area 1.7 cm, PA pressure 40 mmHg. Continue to monitor - 2D echo was done on December 13, 2020 showing normal left ventricular size, diffuse hypokinesia, EF 30 to 35%, hypokinesia of anterior wall and true apex anterolateral wall anteroseptum. Left revealed vegetation, mild aortic valve stenosis, PA pressure 30 mmHg. - EF on MPI of Jan 2022 was 67% Patient was unable to tolerate beta-horacio due to bradycardia, we will start low-dose since she had a pacemaker implanted Sick Sinus Syndrome - Underwent Dual chamber permanent pacemaker implantation on 07/08/21, [employer] [place] XT DR ZAVALA. - Monitored by Dr De Leon Intolerance to anticoagulation due to anemia and GI bleed. Hypertension, by history Hyperlipidemia - treated with statin and monitored by Dr De Leon Mild bilateral carotid stenosis - monitored by Dr De Leon COPD, oxygen dependent History of deep venous thrombosis - Xarelto was discontinued by Dr. 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 Elevated BMI History of tonsillectomy, colonoscopy. H/o excision of facial skin cancer by Dr. Lange Plan: * Complex management due to multisystem involvement * Treat pneumonia, sepsis, and CHF * Monitor labs * Consider heart cath if symptoms recurrent (preferably after sepsis controlled and renal insufficiency improved) Clinical Quality Measures AMI/AHF: ASA po Prior to arrival: GARIMA Mack MD FACP FAC CCDS October 17, 2022 17:28
[2022-10-17] MEDS: KCL 10 MEQ TAB (MICRO K) PO SCH (17:38)
[2022-10-17] MEDS: morphine INJ 4 MG/ML 1 ML (VIAL/SYRINGE) IV PRN (18:27)
[2022-10-17 20:15] VITALS: BP 118/60
[2022-10-17] MEDS: LATANOPROST 0.005% (XALATAN) OPHTH SOLN 2.5 ML OU SCH (20:42)
[2022-10-17] MEDS: TICAGRELOR 90 MG TABLET (BRILINTA) PO SCH (20:49)
[2022-10-17] MEDS ORDERED: NON-FORMULARY MEDICATION 1 EA EA (Bimatoprost (Lumigan) 1 DROP) OP SCH (21:00)
[2022-10-17] MEDS ORDERED: NON-FORMULARY MEDICATION 1 EA EA (Potassium Chloride 10 MEQ) PO SCH (21:00)
[2022-10-18] VITALS (7 sets, daily range): BP systolic 98–139; BP diastolic 46–83
[2022-10-18] MEDS: RT-ALBUTEROL/IPRATROPIUM 3 ML (DUONEB) VIAL INH SCH ×6 (02:45→21:59)
[2022-10-18 04:32] LABS: BASOPHILS % (AUTO) 0 % (0-10); EOSINOPHILS # (AUTO) 0.2 10^3/uL (0.0-0.3); EOSINOPHILS % (AUTO) 2 % (0-10); HEMATOCRIT 27 % (35-52); HEMOGLOBIN 8.3 g/dL (11.5-16.0); LYMPHOCYTES # (AUTO) 1.7 10^3/uL (1.0-4.0); LYMPHOCYTES % (AUTO) 17 % (12-44); MEAN CORPUSCULAR HEMOGLOBIN 28 pg (25-34); MEAN CORPUSCULAR HGB CONC 31 g/dL (32-36); MEAN CORPUSCULAR VOLUME 90 fL (80-99); MONOCYTES % (AUTO) 10 % (0-12); NEUTROPHILS # (AUTO) 7.2 10^3/uL (1.8-7.8); NEUTROPHILS % (AUTO) 71 % (42-75); PLATELET COUNT 178 10^3/uL (130-400); WHITE BLOOD COUNT 10.2 10^3/uL (4.3-11.0)
[2022-10-18 04:56] LABS: BILIRUBIN,TOTAL 0.6 MG/DL (0.1-1.0); CALCIUM 8.5 MG/DL (8.5-10.1); CREATININE SERUM 1.41 MG/DL (0.60-1.30); MAGNESIUM 1.8 MG/DL (1.6-2.4); POTASSIUM 3.5 MMOL/L (3.6-5.0); TOTAL PROTEIN 5.8 GM/DL (6.4-8.2)
[2022-10-18] MEDS: inSUlin ASPART (NovoLOG) 1 UNIT/0.01 ML (CHARGE PER UNIT) SC SCH ×4 (05:54→23:49)
[2022-10-18] MEDS: ENOXAPARIN 80 MG/0.8 ML (LOVENOX) SYR SC SCH ×2 (05:59→17:35)
[2022-10-18] MEDS: MULTIVIT W/MINERALS TAB (THERAGRAN M) PO SCH (05:59)
[2022-10-18] MEDS: LEVOTHYROXINE 150 MCG (LEVOTHROID) TAB PO SCH (05:59)
[2022-10-18] MEDS: MEROPENEM 500 MG in NS (IVPB) 100 ML IV SCH ×3 (06:00→20:42)
[2022-10-18] MEDS: DOXYCYCLINE INJECTION 100 MG in NS (IVPB) 100 ML IV SCH ×2 (07:59→20:43)
[2022-10-18] MEDS: ASPIRIN E.C. 81 MG (ECOTRIN) TAB PO SCH (07:59)
[2022-10-18] MEDS: KCL 10 MEQ TAB (MICRO K) PO SCH ×2 (07:59→17:36)
[2022-10-18] MEDS: ALLOPURINOL 100 MG (ZYLOPRIM) TAB PO SCH (07:59)
[2022-10-18] MEDS: DOCUSATE SODIUM 100 MG (COLACE) CAP PO SCH (08:05)
[2022-10-18] MEDS: SENNOSIDES 8.6 MG (SENOKOT) TAB PO SCH ×2 (08:05→20:42)
[2022-10-18] MEDS: FUROSEMIDE 20 MG (LASIX) TAB PO SCH (08:50)
[2022-10-18] MEDS: LOSARTAN 25 MG (COZAAR) TAB PO SCH (08:51)
[2022-10-18] MEDS: TICAGRELOR 90 MG TABLET (BRILINTA) PO SCH ×2 (08:53→20:42)
[2022-10-18] MEDS ORDERED: NON-FORMULARY MEDICATION 1 EA EA (Multivits-Min/Iron/FA/Lutein (Centrum Silver Women Table PO SCH (09:00)
[2022-10-18] MEDS ORDERED: ISOSORBIDE MONONITRATE 30 MG (IMDUR) TAB PO SCH (09:00)
[2022-10-18] MEDS ORDERED: ASPIRIN E.C. 81 MG (ECOTRIN) TAB PO SCH (09:00)
[2022-10-18] MEDS ORDERED: NON-FORMULARY MEDICATION 1 EA EA (Levothyroxine Sodium (Levothyroxine) 150 MCG) PO SCH (09:00)
[2022-10-18] MEDS ORDERED: LIDOCAINE 1% INJ 20 ML VIAL ONE (10:43)
[2022-10-18] MEDS ORDERED: NS IV 1000 ML 1,000 ML ONE (10:44)
[2022-10-18] MEDS ORDERED: HEParin (CATH LAB) 2,000 ML IV ONE (10:44)
[2022-10-18] MEDS ORDERED: VERAPAMIL 5 MG/2 ML (CALAN) VIAL IV ONE (10:47)
[2022-10-18] MEDS ORDERED: HEParin 1000 UNIT/ML (10ML VIAL) FOR BOLUS ONE (10:47)
[2022-10-18] MEDS ORDERED: fentaNYL INJ 100 MCG/2 ML AMP ONE (10:47)
[2022-10-18] MEDS ORDERED: MIDAZOLAM 5 MG/5 ML (VERSED) VIAL ONE (10:47)
[2022-10-18] MEDS ORDERED: NITRO DRIP 25000 MCG/D5W 250 ML IV ONE (10:48)
--- NOTE | 2022-10-18 10:50 | Cardiology Progress Note ---
Subjective Date Seen by Provider: October 18, 2022 Time Seen by Provider: 10:44 Subjective/Events-last exam Patient was seen at bedside she was laying down in bed feeling better Concern about her chest pain, described left-sided chest pain radiating to the left arm, no shortness of breath, no palpitation, no cough or fever Review of Systems General: No Chills, No Night Sweats, No Fatigue, No Malaise, No Appetite, No Other HEENT: No Head Aches, No Visual Changes, No Eye Pain, No Ear Pain, No Dysphasia, No Sinus Congestion, No Post Nasal Drip, No Sore Throat, No Other Pulmonary: No Dyspnea, No Cough, No Pleuritic Chest Pain, No Other Cardiovascular: No: Chest Pain, Palpitations, Orthopnea, Paroxysmal Noc. Dyspnea, Edema, Lt Headedness, Other Focused Exam Lactate Level 10/16/22 05:45: Lactic Acid Level 2.38*H 10/16/22 08:19: Lactic Acid Level 2.08*H 10/16/22 10:12: Lactic Acid Level 1.33 Objective-Cardiology Exam Last Set of Vital Signs Vital Signs 10/16/22 10/18/22 10/18/22 12:00 08:33 10:16 Temp 37.4 Pulse 65 Resp 18 B/P (MAP) 118/60 (79) Pulse Ox 90 O2 Delivery Nasal Cannula O2 Flow Rate 3.00 FiO2 40 I&O Intake and Output 10/18/22 00:00 Intake Total 1375 ml Output Total 1425 ml Balance -50 ml Intake Oral 1275 ml IV Total 100 ml Output Urine Total 1425 ml # Bowel Movements 1 General: Alert, Oriented X3, Cooperative HEENT: Atraumatic, PERRLA Neck: Supple, No JVD, No Thyromegaly Lungs: Clear to Auscultation, Normal Air Movement Heart: Regular Rate, Normal S1, Normal S2, No Murmurs Abdomen: Normal Bowel Sounds, Soft, No Tenderness, No Hepatosplenomegaly, No Masses Extremities: No Clubbing, No Cyanosis, No Edema, Normal Pulses, No Tenderness/Swelling Skin: No Rashes, No Breakdown, No Significant Lesion Neuro: Normal Gait, Normal Speech, Strength at 5/5 X4 Ext, Normal Tone, Sensation Intact Psych/Mental Status: Mental Status NL, Mood NL Results Lab Laboratory Tests 10/18/22 04:06 A/P-Cardiology Admission Diagnosis Non-ST elevation myocardial infarction Coronary artery disease Pneumonia Sinus node dysfunction Assessment/Plan Non-ST elevation myocardial infarction, elevation in troponin Could be secondary to the pneumonia. Planning to proceed with cardiac catheterization Pneumonia, left-sided, pleural effusion Receiving antibiotics and managed by primary care physician. Coronary artery disease History of stent to LAD using 3.012 mm Ion stent to the LAD. Cardiac catheterization done in July 2015 revealed patent stent in the LAD with otherwise nonobstructive disease. Cardiac catheterization done July 12, 2018 revealed patent stent in the mid LAD with mild disease at the mid to distal LAD nonobstructive disease, otherwise mild coronary artery disease Acute myocardial infarction on June 13, 2021 underwent emergency cardiac catheterization with Dr. Haque, patent stent in the mid LAD however there was severe disease between the 2 stents of the distal LAD, underwent drug-eluting stent placement Skypoint stent 3.5 x 15 mm with excellent results. Cardiac catheterization was carried out on January 27, 2022 showing moderate to severe proximal LAD stenosis with subtotal occlusion within the stent in the proximal LAD, unsuccessful balloon angioplasty then stenting of the LAD, intervention was noted with Dr. Haque with excellent results. Mild disease otherwise. Continue on aspirin and Plavix. Stress test in January 2022 with mild reversible ischemia involving the apex and anteroapical segment with stress score 6, SDS 6, ejection fraction 67%. Had a cardiac catheterization done in January 2022 Congestive heart failure status post episode of acute left ventricular diastolic dysfunction. 2D echo was done on December 13, 2020 showing normal left ventricular size, diffuse hypokinesia, EF 30 to 35%, hypokinesia of anterior wall and true apex anterolateral wall anteroseptum. Left revealed vegetation, mild aortic valve stenosis, PA pressure 30 mmHg. Sick Sinus Syndrom with Questionable episode of paroxysmal atrial fibrillation during hospitalization, had an EKG showing sinus rhythm with frequent PACs, no definite atrial fibrillation noted during the hospitalization. EKG was done in the office showing sinus bradycardia with a heart rate 43 with escape junctional rhythm. Underwent Dual chamber permanent pacemaker implantation on 07/08/21, [employer] [place] XT DR ZAVALA. Intolerance to aggressive anticoagulation due to anemia and GI bleed. Hypertension, monitor blood pressure Hyperlipidemia, monitor lipids Mild bilateral carotid stenosis, ultrasound was done in May 2022, continue to monitor COPD, oxygen dependent, had seen Dr. Maddie in the past, follows with primary care physician. History of deep venous thrombosis, Xarelto was discontinued by Dr. 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 Obesity. BMI is 51. Patient was educated again on weight loss. History of tonsillectomy, colonoscopy. DNC procedure. Skin cancer of face- patient to undergo excision to be done by ALLY Salcedo MD October 18, 2022 10:50
--- NOTE | 2022-10-18 10:51 | Cardiac Procedure Note-CS/ASA ---
Pre-Procedure Note Pre-Op Procedure Note Date of Available H&P: October 18, 2022 Date H&P Reviewed: October 18, 2022 Time H&P Reviewed: 10:51 History & Physical: H&P Reviewed, Patient Examed, No changes noted Pre-Operative Diagnosis: Coronary artery disease Moderate Sedation PreProcedure Time 10:51 ASA Score 3 Airway Lungs Heart ASA score ASA 1: a normal healthy patient ASA 2: a patient with a mild systemic disease (mid diabetes, controlled hypertension, obesity ASA 3: a patient with a severe systemic disease that limits activity (angina, COPD, prior Myocardial infarction) ASA 4: a patient with an incapacitating disease that is a constant threat to life (CHF, renal failure) ASA 5: a moribund patient not expected to survive 24 hrs. (ruptured aneurysm) ASA 6: a declared brain- patient whose organs are being harvested. For emergent operations, add the letter E after the classification Mallampati Classification Grade 3 Sedation Plan Analgesia, Amnesia, Plan communicated to team members, Discussed options with patient/fam, Discussed risks with patient/fam The patient is an appropriate candidate to undergo the planned procedure, sedation, and anesthesia. The patient immediately re-assessed prior to indication. ALLY MARINO MD October 18, 2022 10:51
[2022-10-18] MEDS ORDERED: ASPIRIN 325 MG (5 GR) TABLET ONE (12:13)
[2022-10-18] MEDS ORDERED: CLOPIDOGREL 300 MG (PLAVIX) TABLET PO ONE (12:13)
--- NOTE | 2022-10-18 12:22 | Cardiac Cath Report ---
Cardiac Cath Report Physician (s)/[employer] Developer (s) Physician ALLY MARINO MD Pre-Procedure Diagnosis Pre-Procedure Diagnosis: Coronary artery disease Post-Procedure Note Procedure Start Date: October 18, 2022 Name of Procedure: Left heart catheterization PTCA to the proximal and mid LAD Findings/Procedure Note PROCEDURE NOTE: 67-year-old lady admitted with non-ST elevation myocardial infarction, pneumonia, I advised her to have a cardiac catheterization possible PTCA. After explaining the procedure to the patient, all pros and cons were explained, all questions were answered. The patient signed the consent and then she was placed in the cardiac catheterization laboratory. Groin was prepped in SL fashion local anesthesia was used. Sheath placed in the right radial artery, [place] catheter was advanced, could not engage the coronary system, used Jose right catheter and Jose left catheter engage the coronary system, angiogram was done. Prolapsed to the left ventricular cavity, pressure was measured, pullback LV to aorta was done. Patient has 95% stenosis in the proximal and mid LAD. Ojse left 4.0 guide was used, patient received 6000 units of heparin. Whisper extra-support was used and advanced parked in the distal LAD. Noncompliant 3 x 20 balloon was used, multiple inflations in the proximal and mid with resolution of the stenosis, 0% residual stenosis. At the end of the procedure the sheath was removed. Vascular band was used FINDINGS: Hemodynamics LV 100/21, end-diastolic pressure of 21 Aorta 95/58 mean of 75 ANATOMY: Left Main has less than 10% stenosis at the ostium of the left main Left Anterior Descending has multiple stent in the proximal and mid with 2 segments of 95% stenosis successful balloon angioplasty using noncompliant 3 x 20 balloon with multiple inflation up to 18 agusto with 0% residual stenosis in both lesions. Left Circumflex is moderate in size with no obstructive disease Right Coronary Artery is dominant artery moderate in size with no obstructive disease LV Gram was not done, pressure was measured PERCUTANEOUS INTERVENTION: Pre stenosis 95% Post Stenosis 0% Pre EDGAR flow 2 Post EDGAR flow 3 Dominance right coronary artery CONCLUSION: 95% in-stent restenosis in the proximal and mid LAD with successful balloon angioplasty with no residual stenosis using 3 x 20 noncompliant balloon Dominant right coronary artery with no obstructive disease very minimal ostial left main coronary artery stenosis Mildly elevated left ventricular end-diastolic pressure DISCUSSION AND RECOMMENDATION: Continue to maximize medical therapy, continue on aspirin and Plavix Anesthesia Type: Conscious Sedation Estimated blood loss (mL): 20 ml Contrast Amount: 60 ml Total Radiation Dose: 1117 mGy Post-Procedure Diagnosis Post-operative diagnosis: Non-ST elevation myocardial infarction Coronary artery disease Hypertension Hyperlipidemia ALLY MARINO MD October 18, 2022 12:22
--- NOTE | 2022-10-18 12:24 | Progress Note ---
Subjective Subjective/Events-last exam Patient states that she is feeling much better this AM. She was able to tolerated being in chair yesterday. Tolerating PO diet. Prior to hospitalization she was able to help with transfers but not able to ambulate at baseline. Review of Systems General: Fatigue Pulmonary: Dyspnea Cardiovascular: No: Chest Pain, Palpitations Gastrointestinal: No: Nausea, Vomiting, Abdominal Pain Neurological: Weakness, Incoordination; No: Confusion Focused Exam Lactate Level 10/16/22 05:45: Lactic Acid Level 2.38*H 10/16/22 08:19: Lactic Acid Level 2.08*H 10/16/22 10:12: Lactic Acid Level 1.33 Objective Exam Last Set of Vital Signs Vital Signs Date Time Temp Pulse Resp B/P (MAP) Pulse Ox O2 Delivery O2 Flow Rate FiO2 10/18/22 11:10 37.6 70 20 139/61 (87) 95 High Flow N/C 3.00 10/16/22 12:00 40 Capillary Refill : Less Than 3 Seconds I&O Intake and Output 10/18/22 00:00 Intake Total 1375 ml Output Total 1425 ml Balance -50 ml Intake Oral 1275 ml IV Total 100 ml Output Urine Total 1425 ml # Bowel Movements 1 General: Alert, Oriented X3, No Acute Distress Lungs: Clear to Auscultation, Normal Air Movement Heart: Regular Rate, No Murmurs Abdomen: Normal Bowel Sounds, Soft, No Tenderness Extremities: Other (1+ pitting edema bilaterally) Neuro: Normal Speech Results/Procedures Lab Laboratory Tests 10/18/22 04:06: White Blood Count 10.2, Red Blood Count 2.98L, Hemoglobin 8.3L, Hematocrit 27L, Mean Corpuscular Volume 90, Mean Corpuscular Hemoglobin 28, Mean Corpuscular Hemoglobin Concent 31L, Red Cell Distribution Width 17.2H, Platelet Count 178, Mean Platelet Volume 10.0, Immature Granulocyte % (Auto) 1, Neutrophils (%) (Auto) 71, Lymphocytes (%) (Auto) 17, Monocytes (%) (Auto) 10, Eosinophils (%) (Auto) 2, Basophils (%) (Auto) 0, Neutrophils # (Auto) 7.2, Lymphocytes # (Auto) 1.7, Monocytes # (Auto) 1.0, Eosinophils # (Auto) 0.2, Basophils # (Auto) 0.0, Immature Granulocyte # (Auto) 0.1, Sodium Level 139, Potassium Level 3.5L, Chloride Level 105, Carbon Dioxide Level 24, Anion Gap 10, Blood Urea Nitrogen 30H, Creatinine 1.41H, Estimat Glomerular Filtration Rate 41, BUN/Creatinine Ratio 21, Glucose Level 113H, Calcium Level 8.5, Corrected Calcium 9.3, Magnesium Level 1.8, Total Bilirubin 0.6, Aspartate Amino Transf (AST/SGOT) 16, Alanine Aminotransferase (ALT/SGPT) 12, Alkaline Phosphatase 90, Troponin I 0.689*H, Total Protein 5.8L, Albumin 3.0L Microbiology 10/16/22 MRSA Screen - Final, Complete MRSA not isolated 10/16/22 Blood Culture - Preliminary, Resulted No growth Assessment/Plan Assessment/Plan (1) Acute and chronic respiratory failure with hypoxia Status: Acute Assessment & Plan: 10/18: Improving, prior to hospitalization was only on oxygen at night, currently requiring 2-3 LPM, will continue to titrate as tolerated (2) Acute on chronic renal failure Status: Acute Assessment & Plan: 10/18: Gentle hydration, encourage PO, will continue to monitor, renal dosing meds (3) Normocytic anemia Status: Chronic Assessment & Plan: 10/18: No signs of acute bleeding, likely concentrated on admission, will continue to monitor, will get Iron panel (4) NSTEMI (non-ST elevated myocardial infarction) Status: Acute Assessment & Plan: 10/18: Cardiology consulted, appreciate recommendations (5) Pneumonia involving right lung Status: Acute Assessment & Plan: 10/18: continue IV antibiotics and MAT protocol Qualifiers: Qualified Codes: J18.9 - Pneumonia, unspecified organism (6) CAD (coronary artery disease) Status: Chronic (7) COPD (chronic obstructive pulmonary disease) Status: Chronic (8) Mixed hyperlipidemia Status: Chronic (9) Primary hypertension Status: Chronic (10) DVT prophylaxis Status: Acute Assessment & Plan: - Lovenox Clinical Quality Measures AMI/AHF: ASA po Prior to arrival: ODESSA Dave MD October 18, 2022 12:24
[2022-10-18] MEDS: NS IV 1000 ML 1,000 ML IV SCH ×2 (13:28→23:49)
[2022-10-18] MEDS: LATANOPROST 0.005% (XALATAN) OPHTH SOLN 2.5 ML OU SCH (20:43)
[2022-10-18] MEDS: morphine INJ 4 MG/ML 1 ML (VIAL/SYRINGE) IV PRN (20:43)
[2022-10-18] MEDS ORDERED: UMECLIDINIUM BROMIDE (INCRUSE ELLIPTA) 7'S IH SCH (21:00)
[2022-10-18] MEDS: UMECLIDINIUM BROMIDE (INCRUSE ELLIPTA) 7'S IH SCH (21:00)
[2022-10-19] VITALS (8 sets, daily range): BP systolic 104–136; BP diastolic 46–75
[2022-10-19] MEDS: RT-ALBUTEROL/IPRATROPIUM 3 ML (DUONEB) VIAL INH SCH ×3 (02:23→21:48)
[2022-10-19 05:52] LABS: BASOPHILS % (AUTO) 0 % (0-10); EOSINOPHILS # (AUTO) 0.4 10^3/uL (0.0-0.3); EOSINOPHILS % (AUTO) 4 % (0-10); HEMATOCRIT 26 % (35-52); HEMOGLOBIN 7.8 g/dL (11.5-16.0); LYMPHOCYTES # (AUTO) 1.5 10^3/uL (1.0-4.0); LYMPHOCYTES % (AUTO) 15 % (12-44); MEAN CORPUSCULAR HEMOGLOBIN 28 pg (25-34); MEAN CORPUSCULAR HGB CONC 31 g/dL (32-36); MEAN CORPUSCULAR VOLUME 91 fL (80-99); MEAN PLATELET VOLUME 10.1 fL (9.0-12.2); MONOCYTES # (AUTO) 0.8 10^3/uL (0.0-1.0); MONOCYTES % (AUTO) 9 % (0-12); NEUTROPHILS # (AUTO) 6.9 10^3/uL (1.8-7.8); NEUTROPHILS % (AUTO) 72 % (42-75); PLATELET COUNT 176 10^3/uL (130-400); WHITE BLOOD COUNT 9.6 10^3/uL (4.3-11.0)
[2022-10-19 06:05] LABS: ALBUMIN 2.9 GM/DL (3.2-4.5)
[2022-10-19 06:06] LABS: POTASSIUM 3.5 MMOL/L (3.6-5.0)
[2022-10-19 06:07] LABS: CALCIUM 8.7 MG/DL (8.5-10.1)
[2022-10-19 06:08] LABS: TOTAL PROTEIN 5.9 GM/DL (6.4-8.2)
[2022-10-19 06:10] LABS: BILIRUBIN,TOTAL 0.4 MG/DL (0.1-1.0)
[2022-10-19 06:12] LABS: CREATININE SERUM 1.16 MG/DL (0.60-1.30)
[2022-10-19] MEDS: inSUlin ASPART (NovoLOG) 1 UNIT/0.01 ML (CHARGE PER UNIT) SC SCH ×4 (06:13→21:15)
[2022-10-19 06:14] LABS: MAGNESIUM 1.8 MG/DL (1.6-2.4)
[2022-10-19] MEDS: MEROPENEM 500 MG in NS (IVPB) 100 ML IV SCH ×3 (06:23→21:16)
[2022-10-19] MEDS: ENOXAPARIN 80 MG/0.8 ML (LOVENOX) SYR SC SCH (06:24)
[2022-10-19] MEDS: LEVOTHYROXINE 150 MCG (LEVOTHROID) TAB PO SCH (06:24)
[2022-10-19] MEDS: MULTIVIT W/MINERALS TAB (THERAGRAN M) PO SCH (06:24)
[2022-10-19] MEDS: UMECLIDINIUM BROMIDE (INCRUSE ELLIPTA) 7'S IH SCH (06:33)
--- NOTE | 2022-10-19 07:47 | Cardiology Progress Note ---
Subjective Date Seen by Provider: October 19, 2022 Time Seen by Provider: 07:48 Subjective/Events-last exam Patient is awake and sitting up this morning to eat her breakfast. Denies any chest pain or palpitations at this time. Denies any cough or fever. States she has some mild shortness of breath when changing position from laying down to sitting up, but otherwise does not have any difficulty. Hb today trending down from 8.3 to 7.8. Review of Systems General: No Chills, No Night Sweats HEENT: No Head Aches, No Visual Changes, No Eye Pain, No Ear Pain, No Dysphasia, No Sinus Congestion, No Post Nasal Drip, No Sore Throat, No Other Pulmonary: No Dyspnea, No Cough, No Pleuritic Chest Pain Cardiovascular: No: Chest Pain, Palpitations Focused Exam Lactate Level 10/16/22 10:12: Lactic Acid Level 1.33 Objective-Cardiology Exam Last Set of Vital Signs Vital Signs 10/16/22 10/19/22 10/19/22 12:00 07:32 07:56 Temp 36.6 Pulse 69 Resp 18 B/P (MAP) 104/46 (65) Pulse Ox 90 O2 Delivery Nasal Cannula O2 Flow Rate 3.00 FiO2 40 I&O Intake and Output 10/19/22 00:00 Intake Total 950 ml Output Total 1800 ml Balance -850 ml Intake Oral 950 ml Output Urine Total 1800 ml General: Alert, Oriented X3, No Acute Distress HEENT: Atraumatic, PERRLA Neck: Supple, No JVD, No Thyromegaly Lungs: Clear to Auscultation, Normal Air Movement Heart: Regular Rate, Normal S1, Normal S2, No Murmurs Abdomen: Normal Bowel Sounds, Soft, No Tenderness Extremities: No Clubbing, No Cyanosis, Other (1+ pitting edema bilaterally) Skin: No Rashes, No Breakdown, No Significant Lesion Neuro: Normal Speech Psych/Mental Status: Mental Status NL, Mood NL Results Lab Laboratory Tests 10/19/22 05:30 A/P-Cardiology Admission Diagnosis Non-ST elevation myocardial infarction Coronary artery disease Pneumonia Sinus node dysfunction Assessment/Plan Non-ST elevation myocardial infarction Status post postcardiac catheterization with balloon angioplasty for in-stent restenosis of the LAD with excellent results. Changing to aspirin and Plavix instead of Brilinta Pneumonia, left-sided, pleural effusion Receiving antibiotics and managed by primary care physician. Coronary artery disease History of stent to LAD using 3.012 mm Ion stent to the LAD. Cardiac catheterization done in July 2015 revealed patent stent in the LAD with otherwise nonobstructive disease. Cardiac catheterization done July 12, 2018 revealed patent stent in the mid LAD with mild disease at the mid to distal LAD nonobstructive disease, otherwise mild coronary artery disease Acute myocardial infarction on June 13, 2021 underwent emergency cardiac catheterization with Dr. Haque, patent stent in the mid LAD however there was severe disease between the 2 stents of the distal LAD, underwent drug-eluting stent placement Skypoint stent 3.5 x 15 mm with excellent results. Cardiac catheterization was carried out on January 27, 2022 showing moderate to severe proximal LAD stenosis with subtotal occlusion within the stent in the proximal LAD, unsuccessful balloon angioplasty then stenting of the LAD, intervention was noted with Dr. Haque with excellent results. Mild disease otherwise. Cardiac catheterization performed October 18, 2022 which showed results of 95% in- stent restenosis in the proximal and mid LAD. Successful balloon angioplasty with no residual stenosis. Dominant RCA with no obstructive disease, very minimal left main coronary artery stenosis. Mildly elevated left ventricular end-diastolic pressure. Continue on aspirin and Plavix (DAPT). Anemia Hb continues to trend down from 8.3 yesterday to 7.8 today Will order stool heme occult to further investigate source of blood loss Will also start patient on PPI in the meantime Possibly due to some dilution from fluids given since catheterization yesterday. Stress test in January 2022 with mild reversible ischemia involving the apex and anteroapical segment with stress score 6, SDS 6, ejection fraction 67%. Congestive heart failure status post episode of acute left ventricular diastolic dysfunction. 2D echo was done on December 13, 2020 showing normal left ventricular size, diffuse hypokinesia, EF 30 to 35%, hypokinesia of anterior wall and true apex anterolateral wall anteroseptum. Left revealed vegetation, mild aortic valve stenosis, PA pressure 30 mmHg. Sick Sinus Syndrom with Questionable episode of paroxysmal atrial fibrillation during hospitalization, had an EKG showing sinus rhythm with frequent PACs, no definite atrial fibrillation noted during the hospitalization. EKG was done in the office showing sinus bradycardia with a heart rate 43 with escape junctional rhythm. Underwent Dual chamber permanent pacemaker implantation on 07/08/21, [employer] Tiny XT DR ZAVALA. Intolerance to aggressive anticoagulation due to anemia and GI bleed. Hypertension, monitor blood pressure Hyperlipidemia, monitor lipids Mild bilateral carotid stenosis, ultrasound was done in May 2022, continue to monitor COPD, oxygen dependent, had seen Dr. Perkins in the past, follows with primary care physician. History of deep venous thrombosis, Xarelto was discontinued by Dr. 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 Obesity. BMI is 51. Patient was educated again on weight loss. History of tonsillectomy, colonoscopy. DNC procedure. Skin cancer of face- patient to undergo excision to be done by Dr. Lange Supervisory-Addendum Brief Supervisory Addendum Participated in pt care: history, MDM, physical Personally performed: exam, history, MDM Care discussed with: PA Results interpretation: Verified all documentation Notes: Verification and Attestation of Medical Student E/M Service A medical student performed and documented this service in my presence. I reviewed and verified all information documented by the medical student and made modifications to such information, when appropriate. I personally performed the physical exam and medical decision making. Patient was seen at bedside, sitting comfortably, no further episodes of chest pain Noted to have worsening anemia I am discontinuing metoprolol and isosorbide Parameters for Coreg and losartan Switching Brilinta to Plavix Evaluate stool occult blood and start PPI Monitor H&H Ally De Leon, October 19, 2022,08:33 MARIAH DUMONT October 19, 2022 07:47 ALLY DE LEON MD October 19, 2022 08:34
[2022-10-19] MEDS: ALLOPURINOL 100 MG (ZYLOPRIM) TAB PO SCH (08:19)
[2022-10-19] MEDS: ASPIRIN E.C. 81 MG (ECOTRIN) TAB PO SCH (08:19)
[2022-10-19] MEDS: FUROSEMIDE 20 MG (LASIX) TAB PO SCH (08:20)
[2022-10-19] MEDS: KCL 10 MEQ TAB (MICRO K) PO SCH ×2 (08:20→18:03)
[2022-10-19] MEDS: DOCUSATE SODIUM 100 MG (COLACE) CAP PO SCH (08:20)
[2022-10-19] MEDS: SENNOSIDES 8.6 MG (SENOKOT) TAB PO SCH ×2 (08:20→21:15)
[2022-10-19] MEDS: CLOPIDOGREL 75 MG (PLAVIX) TABLET PO SCH (08:21)
[2022-10-19] MEDS ORDERED: ASPIRIN E.C. 81 MG (ECOTRIN) TAB PO SCH (09:00)
[2022-10-19] MEDS: DOXYCYCLINE 100 MG (VIBRAMYCIN) TABLET PO SCH ×2 (09:06→21:15)
[2022-10-19] MEDS: PANTOPRAZOLE 40 MG (PROTONIX) TAB PO SCH (09:06)
[2022-10-19] MEDS: LOSARTAN 25 MG (COZAAR) TAB PO SCH (09:07)
[2022-10-19] MEDS: NS IV 1000 ML 1,000 ML IV SCH (09:07)
[2022-10-19] MEDS: morphine INJ 4 MG/ML 1 ML (VIAL/SYRINGE) IV PRN (10:31)
--- NOTE | 2022-10-19 17:07 | Progress Note ---
Subjective Subjective/Events-last exam Patient states that she is feeling better. She was sitting up to the side of the bed. She is requesting peralta out. Tolerating PO diet and helping with transfers. Review of Systems General: Fatigue Pulmonary: No Dyspnea; Cough Cardiovascular: Edema; No: Chest Pain, Palpitations Gastrointestinal: No: Nausea, Vomiting, Abdominal Pain, Diarrhea, Constipation Neurological: Weakness; No: Confusion Objective Exam Last Set of Vital Signs Vital Signs Date Time Temp Pulse Resp B/P (MAP) Pulse Ox O2 Delivery O2 Flow Rate FiO2 10/19/22 16:12 36.8 68 20 134/60 (84) 93 High Flow N/C 2.00 10/16/22 12:00 40 Capillary Refill : Less Than 3 Seconds I&O Intake and Output 10/19/22 00:00 Intake Total 950 ml Output Total 1800 ml Balance -850 ml Intake Oral 950 ml Output Urine Total 1800 ml General: Alert, Oriented X3 Lungs: Clear to Auscultation, Normal Air Movement Heart: Regular Rate, No Murmurs Abdomen: Normal Bowel Sounds, Soft, No Tenderness Extremities: No Edema, No Tenderness/Swelling Neuro: Normal Speech Results/Procedures Lab Laboratory Tests 10/19/22 04:57: 10/19/22 05:30: White Blood Count 9.6, Red Blood Count 2.81L, Hemoglobin 7.8L, Hematocrit 26L, Mean Corpuscular Volume 91, Mean Corpuscular Hemoglobin 28, Mean Corpuscular Hemoglobin Concent 31L, Red Cell Distribution Width 17.2H, Platelet Count 176, Mean Platelet Volume 10.1, Immature Granulocyte % (Auto) 1, Neutrophils (%) (Auto) 72, Lymphocytes (%) (Auto) 15, Monocytes (%) (Auto) 9, Eosinophils (%) (Auto) 4, Basophils (%) (Auto) 0, Neutrophils # (Auto) 6.9, Lymphocytes # (Auto) 1.5, Monocytes # (Auto) 0.8, Eosinophils # (Auto) 0.4H, Basophils # (Auto) 0.0, Immature Granulocyte # (Auto) 0.1, Sodium Level 140, Potassium Level 3.5L, Chloride Level 105, Carbon Dioxide Level 24, Anion Gap 11, Blood Urea Nitrogen 29H, Creatinine 1.16, Estimat Glomerular Filtration Rate 51, BUN/Creatinine Ratio 25, Glucose Level 97, Calcium Level 8.7, Corrected Calcium 9.6, Magnesium Level 1.8, Total Bilirubin 0.4, Aspartate Amino Transf (AST/SGOT) 19, Alanine Aminotransferase (ALT/SGPT) 18, Alkaline Phosphatase 83, Total Protein 5.9L, Albumin 2.9L Microbiology 10/16/22 MRSA Screen - Final, Complete MRSA not isolated 10/16/22 Blood Culture - Preliminary, Resulted No growth Assessment/Plan Assessment/Plan (1) Acute and chronic respiratory failure with hypoxia Status: Acute Assessment & Plan: 10/18: Improving, prior to hospitalization was only on oxygen at night, currently requiring 2-3 LPM, will continue to titrate as tolerated 10/19: titrating oxygen (2) Acute on chronic renal failure Status: Resolved Assessment & Plan: 10/18: Gentle hydration, encourage PO, will continue to monitor, renal dosing meds (3) Normocytic anemia Status: Chronic Assessment & Plan: 10/18: No signs of acute bleeding, likely concentrated on admission, will continue to monitor, will get Iron panel 10/19: Trended down since cath, occult pending and iron panel pending (4) NSTEMI (non-ST elevated myocardial infarction) Status: Acute Assessment & Plan: 10/18: Cardiology consulted, appreciate recommendations 10/19: Cath yesterday with successful balloon (5) Pneumonia involving right lung Status: Acute Assessment & Plan: 10/18: continue IV antibiotics and MAT protocol Qualifiers: Qualified Codes: J18.9 - Pneumonia, unspecified organism (6) CAD (coronary artery disease) Status: Chronic (7) COPD (chronic obstructive pulmonary disease) Status: Chronic (8) Mixed hyperlipidemia Status: Chronic (9) Primary hypertension Status: Chronic (10) DVT prophylaxis Status: Acute Assessment & Plan: - Lovenox Clinical Quality Measures AMI/AHF: ASA po Prior to arrival: ODESSA Dave MD October 19, 2022 17:07
[2022-10-19] MEDS: LATANOPROST 0.005% (XALATAN) OPHTH SOLN 2.5 ML OU SCH (21:14)
[2022-10-20 04:00] VITALS: BP 91/51
[2022-10-20 05:34] LABS: BASOPHILS % (AUTO) 0 % (0-10); EOSINOPHILS # (AUTO) 0.4 10^3/uL (0.0-0.3); EOSINOPHILS % (AUTO) 5 % (0-10); HEMATOCRIT 25 % (35-52); HEMOGLOBIN 7.6 g/dL (11.5-16.0); LYMPHOCYTES # (AUTO) 1.6 10^3/uL (1.0-4.0); LYMPHOCYTES % (AUTO) 21 % (12-44); MEAN CORPUSCULAR HEMOGLOBIN 28 pg (25-34); MEAN CORPUSCULAR HGB CONC 30 g/dL (32-36); MEAN CORPUSCULAR VOLUME 91 fL (80-99); MONOCYTES # (AUTO) 0.7 10^3/uL (0.0-1.0); MONOCYTES % (AUTO) 9 % (0-12); NEUTROPHILS % (AUTO) 64 % (42-75); PLATELET COUNT 181 10^3/uL (130-400); WHITE BLOOD COUNT 7.8 10^3/uL (4.3-11.0)
[2022-10-20 05:53] LABS: ALBUMIN 2.9 GM/DL (3.2-4.5); BILIRUBIN,TOTAL 0.4 MG/DL (0.1-1.0); CALCIUM 8.7 MG/DL (8.5-10.1); CREATININE SERUM 1.39 MG/DL (0.60-1.30); MAGNESIUM 1.9 MG/DL (1.6-2.4); POTASSIUM 3.6 MMOL/L (3.6-5.0); TOTAL PROTEIN 5.8 GM/DL (6.4-8.2)
[2022-10-20] MEDS: MULTIVIT W/MINERALS TAB (THERAGRAN M) PO SCH (06:00)
[2022-10-20] MEDS: LEVOTHYROXINE 150 MCG (LEVOTHROID) TAB PO SCH (06:00)
[2022-10-20] MEDS: MEROPENEM 500 MG in NS (IVPB) 100 ML IV SCH ×2 (06:01→14:09)
[2022-10-20] MEDS: inSUlin ASPART (NovoLOG) 1 UNIT/0.01 ML (CHARGE PER UNIT) SC SCH ×3 (06:01→14:16)
[2022-10-20] MEDS: RT-ALBUTEROL/IPRATROPIUM 3 ML (DUONEB) VIAL INH SCH (07:38)
[2022-10-20] MEDS: UMECLIDINIUM BROMIDE (INCRUSE ELLIPTA) 7'S IH SCH (07:41)
--- NOTE | 2022-10-20 07:43 | Cardiology Progress Note ---
Subjective Date Seen by Provider: October 20, 2022 Time Seen by Provider: 07:36 Subjective/Events-last exam Evaluated patient at bedside this morning. She is able to transfer without assistance from chair to bed. Denies any chest pain or shortness of breath at this time. Hb continues to trend down from 7.8 yesterday to 7.6 today. Review of Systems General: No Chills, No Night Sweats; Fatigue; No Malaise HEENT: No Sinus Congestion, No Sore Throat Pulmonary: No Cough, No Pleuritic Chest Pain Cardiovascular: No: Chest Pain, Palpitations Gastrointestinal: No: Nausea, Vomiting, Abdominal Pain Objective-Cardiology Exam Last Set of Vital Signs Vital Signs 10/16/22 10/20/22 10/20/22 10/20/22 12:00 07:45 07:56 07:57 Temp 36.8 Pulse 60 Resp 18 B/P (MAP) 136/63 (87) Pulse Ox 88 O2 Delivery High Flow N/C O2 Flow Rate 2.00 FiO2 40 I&O Intake and Output 10/20/22 00:00 Intake Total 2010 ml Output Total 2510 ml Balance -500 ml Intake Oral 1810 ml IV Total 200 ml Output Urine Total 2310 ml Post Void Residual 200 ml # Voids 2 # Bowel Movements 3 General: Alert, Oriented X3 HEENT: Atraumatic, PERRLA Neck: Supple, No JVD, No Thyromegaly Lungs: Clear to Auscultation, Normal Air Movement Heart: Regular Rate, Normal S1, Normal S2, No Murmurs Abdomen: Normal Bowel Sounds, Soft, No Tenderness Extremities: No Clubbing, No Edema, No Tenderness/Swelling Skin: No Rashes, No Breakdown, No Significant Lesion Neuro: Normal Speech Psych/Mental Status: Mental Status NL, Mood NL Results Lab Laboratory Tests 10/20/22 05:13 A/P-Cardiology Admission Diagnosis Non-ST elevation myocardial infarction Coronary artery disease Pneumonia Sinus node dysfunction Assessment/Plan Non-ST elevation myocardial infarction Status post postcardiac catheterization with balloon angioplasty for in-stent restenosis of the LAD with excellent results. Changing to aspirin and Plavix instead of Brilinta Pneumonia, left-sided, pleural effusion Receiving antibiotics and managed by primary care physician. Coronary artery disease History of stent to LAD using 3.012 mm Ion stent to the LAD. Cardiac catheterization done in July 2015 revealed patent stent in the LAD with otherwise nonobstructive disease. Cardiac catheterization done July 12, 2018 revealed patent stent in the mid LAD with mild disease at the mid to distal LAD nonobstructive disease, otherwise mild coronary artery disease Acute myocardial infarction on June 13, 2021 underwent emergency cardiac catheterization with Dr. Haque, patent stent in the mid LAD however there was severe disease between the 2 stents of the distal LAD, underwent drug-eluting stent placement Skypoint stent 3.5 x 15 mm with excellent results. Cardiac catheterization was carried out on January 27, 2022 showing moderate to severe proximal LAD stenosis with subtotal occlusion within the stent in the proximal LAD, unsuccessful balloon angioplasty then stenting of the LAD, intervention was noted with Dr. Haque with excellent results. Mild disease otherwise. Cardiac catheterization performed October 18, 2022 which showed results of 95% in- stent restenosis in the proximal and mid LAD. Successful balloon angioplasty with no residual stenosis. Dominant RCA with no obstructive disease, very minimal left main coronary artery stenosis. Mildly elevated left ventricular end-diastolic pressure. Continue on aspirin and Plavix (DAPT). Anemia Hb continues to trend down from 7.8 yesterday to 7.6 today Heme occult and iron studies pending Continue PPI in the meantime We will transfuse 1 unit packed RBCs, awaiting stool occult blood. Acute renal insufficiency, probably secondary to contrast nephropathy Continue to monitor renal function Stress test in January 2022 with mild reversible ischemia involving the apex and anteroapical segment with stress score 6, SDS 6, ejection fraction 67%. Congestive heart failure status post episode of acute on chronic left ventricular diastolic dysfunction. Compensated at this point. Continue to monitor 2D echo done in January 2022 with normal LV size, EF 55 to 60%, mild aortic valve stenosis, PA pressure 25 to 30 mmHg. We will repeat 2D echo. Sick Sinus Syndrom with Questionable episode of paroxysmal atrial fibrillation during hospitalization, had an EKG showing sinus rhythm with frequent PACs, no definite atrial fibrillation noted during the hospitalization. EKG was done in the office showing sinus bradycardia with a heart rate 43 with escape junctional rhythm. Underwent Dual chamber permanent pacemaker implantation on 07/08/21, [employer] Tiny XT DR ZAVALA. Intolerance to aggressive anticoagulation due to anemia and GI bleed. Hypertension, monitor blood pressure Hyperlipidemia, monitor lipids Mild bilateral carotid stenosis, ultrasound was done in May 2022, continue to monitor COPD, oxygen dependent, had seen Dr. Maddie in the past, follows with primary care physician. History of deep venous thrombosis, Xarelto was discontinued by Dr. 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 Obesity. BMI is 51. Patient was educated again on weight loss. History of tonsillectomy, colonoscopy. DNC procedure. Skin cancer of face- patient to undergo excision to be done by Dr. Lange Supervisory-Addendum Brief Supervisory Addendum Participated in pt care: history, MDM, physical Personally performed: exam, history, MDM Care discussed with: PA Results interpretation: Verified all documentation Notes: Verification and Attestation of Medical Student E/M Service A medical student performed and documented this service in my presence. I reviewed and verified all information documented by the medical student and made modifications to such information, when appropriate. I personally performed the physical exam and medical decision making. Patient was seen at bedside, sitting comfortably, asking about going home Anemia is slightly worse, awaiting stool for occult blood We will transfuse 1 unit of packed RBCs Worsening renal function., Monitor I will repeat 2D echocardiogram, last echocardiogram showed normal LV systolic and diastolic function with ejection fraction 55 to 60% Continue on aspirin and Plavix Monitor blood pressure and lipids Olivia De Leon October 20, 2022,08:42 MARIAH DUMONT October 20, 2022 07:43 OLIVIA DE LEON MD October 20, 2022 08:41
[2022-10-20 07:45] VITALS: BP 136/63
[2022-10-20] MEDS ORDERED: NS IV 500 ML 500 ML IV SCH (08:45)
[2022-10-20] MEDS: PANTOPRAZOLE 40 MG (PROTONIX) TAB PO SCH (08:56)
[2022-10-20] MEDS: LOSARTAN 25 MG (COZAAR) TAB PO SCH (08:57)
[2022-10-20] MEDS: SENNOSIDES 8.6 MG (SENOKOT) TAB PO SCH (08:57)
[2022-10-20] MEDS: CLOPIDOGREL 75 MG (PLAVIX) TABLET PO SCH (08:57)
[2022-10-20] MEDS: FUROSEMIDE 20 MG (LASIX) TAB PO SCH (08:57)
[2022-10-20] MEDS: DOCUSATE SODIUM 100 MG (COLACE) CAP PO SCH (08:57)
[2022-10-20] MEDS: ASPIRIN E.C. 81 MG (ECOTRIN) TAB PO SCH (08:57)
[2022-10-20] MEDS: DOXYCYCLINE 100 MG (VIBRAMYCIN) TABLET PO SCH (08:57)
[2022-10-20] MEDS: KCL 10 MEQ TAB (MICRO K) PO SCH (08:58)
[2022-10-20] MEDS: ALLOPURINOL 100 MG (ZYLOPRIM) TAB PO SCH (08:59)
--- NOTE | 2022-10-20 10:20 | Discharge Summary ---
Diagnosis/Chief Complaint Date of Admission October 16, 2022 at 07:45 Date of Discharge 10/20/22 Admission Diagnosis Admission Diagnosis See problem list Discharge Diagnosis See below Problems/Diagnosis: (1) Acute and chronic respiratory failure with hypoxia Assessment & Plan: 10/18: Improving, prior to hospitalization was only on oxygen at night, currently requiring 2-3 LPM, will continue to titrate as tolerated 10/19: titrating oxygen 10/20: Home oxygen ordered for 2 LPM Status: Acute (2) Acute on chronic renal failure Assessment & Plan: 10/18: Gentle hydration, encourage PO, will continue to monitor, renal dosing meds Status: Resolved Resolution Date/Time: 10/18/22 @ 17:07 (3) Normocytic anemia Assessment & Plan: 10/18: No signs of acute bleeding, likely concentrated on admission, will continue to monitor, will get Iron panel 10/19: Trended down since cath, occult pending and iron panel pending 10/20: Hemoccult +, recommend outpatient workup, Normal iron panel Status: Chronic (4) NSTEMI (non-ST elevated myocardial infarction) Assessment & Plan: 10/18: Cardiology consulted, appreciate recommendations 10/19: Cath yesterday with successful balloon Status: Acute (5) Pneumonia involving right lung Assessment & Plan: 10/18: continue IV antibiotics and MAT protocol Qualifiers: Qualified Codes: J18.9 - Pneumonia, unspecified organism Status: Acute (6) CAD (coronary artery disease) Status: Chronic (7) COPD (chronic obstructive pulmonary disease) Status: Chronic (8) Mixed hyperlipidemia Status: Chronic (9) Primary hypertension Status: Chronic (10) Sepsis Qualifiers: Qualified Codes: A41.9 - Sepsis, unspecified organism Status: Resolved Resolution Date/Time: 10/19/22 @ 10:26 (11) DVT prophylaxis Assessment & Plan: - Lovenox Status: Acute Discharge Summary-Simple/Stand Consultations Dr De Leon, Cardiology Discharge Physical Examination Allergies: Coded Allergies: ceftriaxone (Verified Allergy, Unknown, pt has received Zosyn w/o issue, 05/09/19) ibuprofen (Verified Allergy, Unknown, PT TAKES ASA AT HOME, 08/02/17) PER MED REC diazepam (Verified Adverse Reaction, Severe, 12/04/18) Vitals & I&Os Vital Sign - Last 12Hours Date Time Temp Pulse Resp B/P (MAP) Pulse Ox O2 Delivery O2 Flow Rate FiO2 10/20/22 07:57 High Flow N/C 2.00 10/20/22 07:56 88 10/20/22 07:45 36.8 60 18 136/63 (87) 10/16/22 12:00 40 Intake and Output 10/20/22 00:00 Intake Total 1560 ml Output Total 1810 ml Balance -250 ml General Appearance: Alert, Oriented X3, No Acute Distress Respiratory: Clear to Auscultation, Normal Air Movement Cardiovascular: Regular Rate, No Murmurs Abdominal: Normal Bowel Sounds, Soft, No Tenderness, No Masses Extremities: No Edema, No Tenderness/Swelling Neuro: Normal Speech Psych/Mental Status: Mental Status NL, Mood NL Hospital Course See final discharge diagnosis. Discharge Condition at discharge stable Instructions to patient/family Please see electronic discharge instructions given to patient. Discharge Medications Reviewed and agree with Discharge Medication list on patient's Discharge Instruction sheet Clinical Quality Measures AMI/AHF: ASA po Prior to arrival: No Copy Copies To 1: JAN HERNANDEZ MD, HOLLY R MD October 20, 2022 10:20
[2022-10-20] MEDS ORDERED: CLOP75TA28 PO (10:24)
[2022-10-20] MEDS ORDERED: PANT40TA52 PO (10:24)
[2022-10-20] MEDS ORDERED: DOXY100T2 PO (10:24)
--- NOTE | 2022-10-20 10:25 | Discharge Summary ---
Discharge [facility] Reconcile Patient Problems Problems Reviewed?: Yes Discharge Medications New, Converted or Re-Newed RX: Transmitted to Pharmacy New Medications: Clopidogrel Bisulfate (Clopidogrel) 75 Mg Tablet 75 MG PO DAILY, #30 TAB Doxycycline Hyclate (Doxycycline Hyclate) 100 Mg Tablet 100 MG PO BID for 5 Days, #10 TAB Pantoprazole Sodium (Pantoprazole Sodium) 40 Mg Tablet.dr 40 MG PO DAILY, #30 TAB Continued Medications: Allopurinol (Allopurinol) 100 Mg Tablet 100 MG PO DAILY Aspirin (Aspirin EC) 81 Mg Tablet.dr 81 MG PO DAILY, TAB Atorvastatin Calcium (Atorvastatin Calcium) 80 Mg Tablet 80 MG PO HS, TAB Bimatoprost (Lumigan) 0.01 % Drops 1 DROP OP HS, DROPS Carvedilol (Carvedilol) 3.125 Mg Tablet 3.125 MG PO BID, TAB Docusate Sodium (Stool Softener) 100 Mg Capsule 200 MG PO DAILY, CAP TAKES 2 CAPSULES Furosemide (Furosemide) 20 Mg Tablet 20 MG PO DAILY Isosorbide Mononitrate (Isosorbide Mononitrate ER) 30 Mg Tab.er.24h 30 MG PO DAILY, TAB Levothyroxine Sodium (Levothyroxine) 150 Mcg Capsule 150 MCG PO DAILY, CAP Losartan Potassium (Losartan Potassium) 25 Mg Tablet 25 MG PO DAILY, TAB Multivits-Min/Iron/FA/Lutein (Centrum Silver Women Tablet) 1 Each Tablet 1 EACH PO DAILY, TAB Nitroglycerin (Nitroglycerin) 0.4 Mg Tab.subl 0.4 MG SL UD PRN for CHEST PAIN, TAB Oxycodone HCl/Acetaminophen (Percocet 7.5-325 mg Tablet) 1 Each Tablet 1 TAB PO Q6H PRN for PAIN-MODERATE, TAB Potassium Chloride (Potassium Chloride) 10 Meq Tab.er.prt 10 MEQ PO BID, TAB Tiotropium [place] (Spiriva) 18 Mcg Aerp 2 PUFF IH 1400, EA Discontinued Medications: Ticagrelor (Brilinta) 90 Mg Tablet 90 MG PO BID, TAB Patient Instructions Goal/Follow Up Appt: 1-2 weeks with PCP Patient Instructions: - Will need a f.u CBC to monitor hemoglobin Activity & Diet Discharge Diet: Cardiac Diet Activity as Tolerated: Yes ODESSA AGARWAL MD October 20, 2022 10:25
[2022-10-20 10:47] VITALS: BP 110/56
[2022-10-20 11:05] VITALS: BP 107/55
[2022-10-20 11:33] VITALS: BP 107/55
[2022-10-20 16:00] VITALS: BP 107/55
--- NOTE | 2022-10-21 14:10 | Physician Query Clarification ---
PQ-Uncertain Diagnosis Admission/Discharge Admission Date: October 16, 2022 at 07:45 Discharge Date: October 20, 2022 at 16:37 Dr. Bojorquez, The medical record reflects the following clinical scenario: History/Risk Factors: pneumonia, NSTEMI, acute on chronic hypoxic respiratory failure, acute on chronic diastolic CHF, HTN w/CHF/CKD 3a, NATI Clinical Findings: T 36.2, WBC 15.0. Lactic acid 2.38, NATI, acute on chronic diastolic CHF, acute on chronic hypoxic respiratory failure Treatment: IV Doxycycline, IV Meropenum Question: Is sepsis a clinically valid diagnosis? Sepsis was documented in the cardiology consult with no further documentation in the medical record. Please document a response in Progress Note or Discharge Summary. 1. Yes, clinically valid, condition resolved. 2. No, condition ruled out. 3. Other, with explanation of clinical findings. 4. Undetermined, no explanation for clinical findings. PHYSICIAN RESPONSE Diagnosis clinically valid: Yes, Conditon resolved (Sepsis was resolved at the time that I started to see patient) In responding to this query, please exercise your independent professional judgment. The purpose of this communication is to more accurately reflect the complexity of your patients condition. The fact that a question is asked does not imply that any particular answer is desired or expected. Thank you for your timely response to this clarification. Requestors name: Lizzy THIS PHYSICIAN QUERY FORM IS A PERMANENT PART OF THE MEDICAL RECORD LIZZY SCHNEIDER October 21, 2022 14:10 ODESSA BOJORQUEZ MD October 22, 2022 10:22
== END 2022-10-20 16:37 | disposition home or self-care (01) | DRG 853 ==
LOC: EDUNIT# 04:45 → ER 04:48 → ICU 07:45 → 4TH 10-17 13:45 → ICU 10-18 12:41 → 4TH 10-18 17:28
PROVIDERS: ADMIT Internal Medicine; ATTEND Family Medicine
PROC: 5A09357 Assistance with Respiratory Ventilation, Less than 24 Consecutive Hours, Continuous Positive Airway Pressure (ICD-10-PCS; principal; 2022-10-16)
PROC: 5A0935A Assistance with Respiratory Ventilation, Less than 24 Consecutive Hours, High Flow/Velocity Cannula (ICD-10-PCS; 2022-10-16)
PROC: 02703ZZ Dilation of Coronary Artery, One Artery, Percutaneous Approach (ICD-10-PCS; 2022-10-18)
PROC: 4A023N7 Measurement of Cardiac Sampling and Pressure, Left Heart, Percutaneous Approach (ICD-10-PCS; 2022-10-18)
PROC: B2111ZZ Fluoroscopy of Multiple Coronary Arteries using Low Osmolar Contrast (ICD-10-PCS; 2022-10-18)
DX: A41.9 Sepsis, unspecified organism (principal); I21.4 Non-ST elevation (NSTEMI) myocardial infarction; I50.33 Acute on chronic diastolic (congestive) heart failure; J18.9 Pneumonia, unspecified organism; J96.21 Acute and chronic respiratory failure with hypoxia; T82.855A Stenosis of coronary artery stent, initial encounter; I13.0 Hypertensive heart and chronic kidney disease with heart failure and stage 1 through stage 4 chronic kidney disease, or unspecified chronic kidney disease; N17.9 Acute kidney failure, unspecified; J44.1 Chronic obstructive pulmonary disease with (acute) exacerbation; J44.0 Chronic obstructive pulmonary disease with (acute) lower respiratory infection; K92.2 Gastrointestinal hemorrhage, unspecified; E11.22 Type 2 diabetes mellitus with diabetic chronic kidney disease; N18.31 Chronic kidney disease, stage 3a; Z99.81 Dependence on supplemental oxygen; E11.40 Type 2 diabetes mellitus with diabetic neuropathy, unspecified; Z95.5 Presence of coronary angioplasty implant and graft; I48.0 Paroxysmal atrial fibrillation; E78.2 Mixed hyperlipidemia; K57.90 Diverticulosis of intestine, part unspecified, without perforation or abscess without bleeding; E66.01 Morbid (severe) obesity due to excess calories; Z68.39 Body mass index [BMI] 39.0-39.9, adult; E03.9 Hypothyroidism, unspecified; I25.119 Atherosclerotic heart disease of native coronary artery with unspecified angina pectoris; G47.33 Obstructive sleep apnea (adult) (pediatric); M10.9 Gout, unspecified; D64.9 Anemia, unspecified; I65.23 Occlusion and stenosis of bilateral carotid arteries; I35.0 Nonrheumatic aortic (valve) stenosis; I49.1 Atrial premature depolarization; I49.5 Sick sinus syndrome; Z95.0 Presence of cardiac pacemaker; Z86.718 Personal history of other venous thrombosis and embolism; Z85.828 Personal history of other malignant neoplasm of skin; Z28.310 Unvaccinated for COVID-19; Z28.9 Immunization not carried out for unspecified reason; Z79.82 Long term (current) use of aspirin; Z79.899 Other long term (current) drug therapy; Z88.6 Allergy status to analgesic agent; Z88.1 Allergy status to other antibiotic agents; Z88.8 Allergy status to other drugs, medicaments and biological substances
CPT/HCPCS: 36415; 71045; 80053; 80061; 82274; 82728; 82947; 83540; 83550; 83605; 83735; 83874; 83880; 84100; 84484; 85007; 85025; 85027; 85610; 85730; 86850; 86900; 86901; 86920; 87040; 87081; 93005; 93041; 93306; 93458; 94640; 94660; 94760; 94761

== ENCOUNTER 2022-11-18 16:46 | Inpatient (IN) | payer MEDICAID ==
[~2022-11-18] VITALS: Ht 157.5 cm; Wt 97.0 kg
[~2022-11-18 16:46] MED LIST changes: -BIMA2.5D4 OP; +CLOP75TA28 PO; +DOXY100T2 PO; +PANT40TA52 PO; +POTA-330 PO
[2022-11-18 17:07] LABS: BASOPHILS % (AUTO) 0 % (0-10); EOSINOPHILS # (AUTO) 0.1 10^3/uL (0.0-0.3); EOSINOPHILS % (AUTO) 2 % (0-10); HEMATOCRIT 32 % (35-52); HEMOGLOBIN 9.5 g/dL (11.5-16.0); LYMPHOCYTES # (AUTO) 2.1 10^3/uL (1.0-4.0); LYMPHOCYTES % (AUTO) 26 % (12-44); MEAN CORPUSCULAR HEMOGLOBIN 27 pg (25-34); MEAN CORPUSCULAR HGB CONC 30 g/dL (32-36); MEAN CORPUSCULAR VOLUME 92 fL (80-99); MEAN PLATELET VOLUME 9.7 fL (9.0-12.2); MONOCYTES # (AUTO) 1.3 10^3/uL (0.0-1.0); MONOCYTES % (AUTO) 15 % (0-12); NEUTROPHILS # (AUTO) 4.7 10^3/uL (1.8-7.8); NEUTROPHILS % (AUTO) 57 % (42-75); PLATELET COUNT 202 10^3/uL (130-400); WHITE BLOOD COUNT 8.4 10^3/uL (4.3-11.0)
[2022-11-18 17:15] LABS: ALBUMIN 3.8 GM/DL (3.2-4.5); POTASSIUM 3.8 MMOL/L (3.6-5.0)
[2022-11-18 17:16] LABS: CALCIUM 9.3 MG/DL (8.5-10.1)
[2022-11-18 17:17] LABS: PROTHROMBIN TIME PATIENT 13.3 SEC (12.2-14.7)
[2022-11-18 17:18] LABS: TOTAL PROTEIN 7.3 GM/DL (6.4-8.2)
[2022-11-18 17:19] LABS: BILIRUBIN,TOTAL 0.4 MG/DL (0.1-1.0)
[2022-11-18 17:21] LABS: CREATININE SERUM 1.67 MG/DL (0.60-1.30)
[2022-11-18 17:24] LABS: MAGNESIUM 1.6 MG/DL (1.6-2.4)
[2022-11-18] MEDS ORDERED: ACETAMINOPHEN 500 MG TAB (TYLENOL) PO ONE (17:30)
--- NOTE | 2022-11-18 17:30 | Diagnostic Imaging Report ---
EXAMINATION: Chest radiograph, portable AP view. DATE: 11/18/2022 5:15 PM INDICATION: 67-year-old female, shortness of breath, chest pain. COMPARISON: October 17, 2022. FINDINGS: There is a left-sided cardiac assist device with leads. There is severe cardiomegaly. Heart size and mediastinal contours are essentially unchanged. There is no identified pneumothorax. There is right mid and lower lung zone consolidation which is essentially unchanged. IMPRESSION: 1. Redemonstrated severe cardiomegaly. 2. Essentially unchanged right mid and lower lung zone consolidation which may relate to infiltrate, atelectasis, and/or effusion. Dictated by: Dictated on workstation # [id number]
[2022-11-18] MEDS ORDERED: MEROPENEM 500 MG in NS (IVPB) 100 ML IV ONE (18:00)
[2022-11-18] MEDS ORDERED: LACTATED RINGERS 1,000 ML IV ONE ×2 (18:00→21:06)
--- NOTE | 2022-11-18 18:01 | ED General ---
General Chief Complaint: Chest Pain Stated Complaint: SOA/CHEST PAIN Nursing Triage Note: PT TO RM 7 WITH COMPLAINT OF SOA, CP, BACK PAIN. STATES SYMPTOMS STARTED TODAY. STATES SHE ALSO FEELS FEVERISH AND HAS A HEADACHE. LAST TOOK TYLENOL THIS MORNING. WAS RECENTLY ADMITTED FOR PNEUMONIA, NM, AND RESPIRATORY DISTRESS. DOES NOT FEEL LIKE SHE HAS GOTTEN RID OF HER PNEUMONIA. Source of Information: Patient, Old Records History of Present Illness Date Seen by Provider: Nov 18, 2022 Time Seen by Provider: 18:00 Initial Comments PT ARRIVED PRIOR TO MY ARRIVAL, ASSUMED CARE FROM DR. PEREYRA PT WITH MULTIPLE COMPLAINTS C/O CHEST PAIN TODAY C/O SUBJECTIVE FEVER FOR THE LAST 2-3 DAYS C/O BACK PAIN TODAY SOME SHORTNESS OF BREATH C/O MILD HEADACHE SLIGHT NON-PRODUCTIVE COUGH NO GI SYMPTOMS NO URINARY SYMPTOMS RECENTLY ADMITTED 10/16-10/20/22 WITH PNEUMONIA AND RESPIRATORY FAILURE, NSTEMI--CARDIAC CATH AND BALLOON ANGIOPLASTY DONE STATES SHE DOES NOT FEEL LIKE SHE COMPLETELY GOT OVER THE PNEUMONIA SHE HAS NOT SOUGHT CARE UNTIL TODAY FOR THESE ISSUES SHE HAS NOT TAKEN ANYTHING FOR SYMPTOMS PT IS MORBILDY OBESE, AND ESSENTIALLY NON-AMBULATORY--TRANSFERS FROM HOME HOSPITAL BED TO WHEELCHAIR SHE HAS COPD AND IS O2 DEPENDENT AT 2-3 L/NC CONTINUOUSLY. SHE HAS CHRONIC GENERALIZED PAIN AND IS OPIATE DEPENDENT SHE HAS HAD COVID VACCINE X 2 PT LIVES AT HOME WITH DAUGHTER AND GRANDSONS PCP; [facility] [place] Allergies and Home Medications Allergies Coded Allergies: ceftriaxone (Verified Allergy, Unknown, pt has received Zosyn w/o issue, 05/09/19) ibuprofen (Verified Allergy, Unknown, PT TAKES ASA AT HOME, 08/02/17) PER MED REC diazepam (Verified Adverse Reaction, Severe, 12/04/18) Patient Home Medication List Allopurinol (Allopurinol) 100 Mg Tablet, 100 MG PO DAILY, (Reported) Entered as Reported by: HALLE MANZANARES on 06/14/21 1046 Aspirin (Aspirin EC) 81 Mg Tablet., 81 MG PO DAILY, (Reported) Entered as Reported by: NANO KHALIL on 01/27/22 1245 Atorvastatin Calcium (Atorvastatin Calcium) 80 Mg Tablet, 80 MG PO HS, (Reported) Entered as Reported by: NANO KHALIL on 01/27/22 1245 Bimatoprost (Lumigan) 0.01 % Drops, 1 DROP OP HS, (Reported) Entered as Reported by: NANO KHALIL on 01/27/22 1245 Carvedilol (Carvedilol) 3.125 Mg Tablet, 3.125 MG PO BID, (Reported) Entered as Reported by: MARTHA RAMOS on 01/14/22 1400 Clopidogrel Bisulfate (Clopidogrel) 75 Mg Tablet, 75 MG PO DAILY Prescribed by: ODESSA AGARWAL on 10/20/22 1024 Docusate Sodium (Stool Softener) 100 Mg Capsule, 200 MG PO DAILY, (Reported) Entered as Reported by: HARPREET PITT on 06/15/21 1214 Doxycycline Hyclate (Doxycycline Hyclate) 100 Mg Tablet, 100 MG PO BID Prescribed by: ODESSA AGARWAL on 10/20/22 1024 Furosemide (Furosemide) 20 Mg Tablet, 20 MG PO DAILY, (Reported) Entered as Reported by: HALLE MANZANARES on 06/14/21 1046 Isosorbide Mononitrate (Isosorbide Mononitrate ER) 30 Mg Tab.er.24h, 30 MG PO DAILY, (Reported) Entered as Reported by: NANO KHALIL on 01/27/22 1245 Levothyroxine Sodium (Levothyroxine) 150 Mcg Capsule, 150 MCG PO DAILY, (Reported) Entered as Reported by: NANO KHAILL on 01/27/22 1245 Losartan Potassium (Losartan Potassium) 25 Mg Tablet, 25 MG PO DAILY, (Reported) Entered as Reported by: NANO KHALIL on 01/27/22 1249 Multivits-Min/Iron/FA/Lutein (Centrum Silver Women Tablet) 1 Each Tablet, 1 EACH PO DAILY, (Reported) Entered as Reported by: HALLE MANZANARES on 06/14/21 1046 Nitroglycerin (Nitroglycerin) 0.4 Mg Tab.subl, 0.4 MG SL UD PRN for CHEST PAIN, (Reported) Entered as Reported by: NANO KHALIL on 01/27/22 1245 Oxycodone HCl/Acetaminophen (Percocet 7.5-325 mg Tablet) 1 Each Tablet, 1 TAB PO Q6H PRN for PAIN-MODERATE, (Reported) Entered as Reported by: NANO KHALIL on 01/27/22 1245 Pantoprazole Sodium (Pantoprazole Sodium) 40 Mg Tablet.dr, 40 MG PO DAILY Prescribed by: ODESSA AGARWAL on 10/20/22 1024 Potassium Chloride (Potassium Chloride) 10 Meq Tab.er.prt, 10 MEQ PO BID, (Reported) Entered as Reported by: CASSIE KHAN on 07/17/19 0908 Tiotropium [place] (Spiriva) 18 Mcg Aerp, 2 PUFF IH 1400, (Reported) Entered as Reported by: HALLE MANZANARES on 06/14/21 1046 Review of Systems Review of Systems Constitutional: see HPI, fever EENTM: no symptoms reported Respiratory: see HPI, cough, short of breath Cardiovascular: see HPI, chest pain Gastrointestinal: no symptoms reported Genitourinary: no symptoms reported Musculoskeletal: no symptoms reported Skin: no symptoms reported Psychiatric/Neurological: See HPI Hematologic/Lymphatic: No Symptoms Reported Immunological/Allergic: no symptoms reported Past Zmctqjg-Argxqi-Miryle Hx Patient Social History Tobacco Use?: No Use of E-Cig and/or Vaping dev: No Substance use?: No Alcohol Use?: No Pt feels they are or have been: No Immunizations Up To Date Tetanus Booster (TDap): Unknown First/Initial COVID19 Vaccinat: UNKNOWN DATE Second COVID19 Vaccination Jamarcus: UNKNOWN DATE Third COVID19 Vaccination Date: UNKNOWN DATE Seasonal Allergies Seasonal Allergies: No Past Medical History Surgeries: Yes (COLON POLYP REMOVAL, MULTIPLE HERNIA REPAIRS, D&C) Abdominal, Adenoidectomy, Cardiac, Coronary Stent, Gallbladder, Pacemaker, Tonsillectomy Respiratory: Yes (CHRONIC DYSPNEA--USES O2 AT HOME, ESPECIALLY AT NIGHT) Pneumonia, Sleep Apnea, COPD Currently Using CPAP: No Currently Using BIPAP: No Cardiac: Yes (TACHYCARDIA, STENTS X 1, CHF; PACEMAKER; ) Atrial Fibrillation, Chronic Edema/Swelling, Coronary Artery Disease, Deep Vein Thrombosis, Heart Attack, High Cholesterol, Hypertension Neurological: No 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 Disorders: No Female 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 Disorders: Denies DENTAL INTERNSHIP History: Tubal Ligation, Menopausal Sexually Transmitted Disease: No HIV/AIDS: No Genitourinary: Yes UTI-Chronic Gastrointestinal: Yes Abdominal Hernia, Diverticulosis, Polyps Musculoskeletal: Yes (CHRONIC GENERALIZED PAIN--NARCOTIC-DEPENDENT;POOR MOBILITY-WC / BED BOUND) Degenerate Disk Disease, Arthritis, Chronic Back Pain Endocrine: Yes (MORBID OBESITY) Hypothyroidsim HEENT: Yes Cataract, Glaucoma Loss of Vision: Denies Hearing Impairment: Denies Cancer: Yes (SQUAMOUS CELL SKIN CANCER RIGHT CHEEK 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) Skin, Colon Did You Recieve Any Treatments: Yes What Type of Treatment Did You: Surgical Intervention Psychosocial: No Integumentary: Yes (CELLULITIS; SKIN CANCER; BEDBUGS) Eczema Blood Disorders: Yes (CHRONIC ANEMIA) Adverse Reaction/Blood Tranf: No (HAS HAD BLOOD WITH NO REACTION) Family Medical History Cancer 03 MOTHER, Onset:40's - 50 Family history: Cardiovascular disease 03 FATHER, Onset:40's - 50 03 MOTHER, Onset:30's - 40 Myocardial infarction 03 MOTHER, Onset:30's - 40 Heart Disease, Cancer, CAD Under 55 Years Old CARDIAC CATH 10/18/[address] MARINO : CONCLUSION: 95% in-stent restenosis in the proximal and mid LAD with successful balloon angioplasty with no residual stenosis using 3 x 20 noncompliant balloon Dominant right coronary artery with no obstructive disease very minimal ostial left main coronary artery stenosis Mildly elevated left ventricular end-diastolic pressure DISCUSSION AND RECOMMENDATION: Continue to maximize medical therapy, continue on aspirin and Plavix Physical Exam Vital Signs Vital Signs - First Documented Capillary Refill : Less Than 3 Seconds Height, Weight, BMI Height: 5'2.00" Weight: 273lbs. 0.0oz. 123.034514gv; 36.00 BMI Method:Stated General Appearance: No Apparent Distress, WD/WN, Obese HEENT: PERRL/EOMI Neck: Other (MASSIVE AMOUNT OF FAT TO ANTERIOR NECK) Respiratory: Normal Breath Sounds, No Accessory Muscle Use, No Respiratory Distress, Decreased Breath Sounds (IN BASES), Other (SLIGHTLY DYSPNEIC WITH MINMAL EXERTION--TRANSFERRING TO AND FROM BEDSIDE COMMODE) Cardiovascular: Regular Rate, Rhythm Gastrointestinal: Non Tender, Soft Back: No CVA Tenderness Extremity: Normal Capillary Refill, Normal Range of Motion, Pedal Edema (1-2+ EDEMA BILATERALLY) Neurologic/Psychiatric: Alert, Oriented x3, No Motor/Sensory Deficits, Normal Mood/Affect Skin: Normal Color, Warm/Dry (VERY WARM) Focused Exam Sepsis Stage: Sepsis Possible Source: Pulmonary Lactate Level 11/18/22 17:37: Lactic Acid Level 1.30 Time of Focused Exam: 18:00 Respiratory: Normal Breath Sounds, No Accessory Muscle Use, No Respiratory Distress Cardiovascular: Regular Rate, Rhythm, No Murmur Capillary Refill: Less Than 3 Seconds Skin: normal color, warm/dry Lactic Acid Level Laboratory Tests Test 11/18/22 17:37 Lactic Acid Level 1.30 MMOL/L (0.50-2.00) Within 3hrs of presentation: Admin fluids, Admin ABX, Blood cultures prior to ABX's, Focus exam, Lactate level Procedures/Interventions Suture Size: 4-0 Progress/Results/Core Measures Suspected Sepsis SIRS Temperature: Pulse: 61 Respiratory Rate: 17 Laboratory Tests 11/18/22 16:55: White Blood Count 8.4 Blood Pressure 164 /67 Mean: 99 11/18/22 17:37: Lactic Acid Level 1.30 Laboratory Tests 11/18/22 16:55: Creatinine 1.67H, INR Comment 1.0, Platelet Count 202, Total Bilirubin 0.4 Results/Orders Lab Results Laboratory Tests Test 11/18/22 08:08 11/18/22 16:55 11/18/22 17:37 11/18/22 18:02 Range/Units Influenza Type A (RT-PCR) Not Detected Not Detecte Influenza Type B (RT-PCR) Not Detected Not Detecte SARS-CoV-2 RNA (RT-PCR) Detected H Not Detecte White Blood Count 8.4 4.3-11.0 10^3/uL Red Blood Count 3.51 L 3.80-5.11 10^6/uL Hemoglobin 9.5 L 11.5-16.0 g/dL Hematocrit 32 L 35-52 % Mean Corpuscular Volume 92 80-99 fL Mean Corpuscular Hemoglobin 27 25-34 pg Mean Corpuscular Hemoglobin Concent 30 L 32-36 g/dL Red Cell Distribution Width 17.5 H 10.0-14.5 % Platelet Count 202 130-400 10^3/uL Mean Platelet Volume 9.7 9.0-12.2 fL Immature Granulocyte % (Auto) 1 % Neutrophils (%) (Auto) 57 42-75 % Lymphocytes (%) (Auto) 26 12-44 % Monocytes (%) (Auto) 15 H 0-12 % Eosinophils (%) (Auto) 2 0-10 % Basophils (%) (Auto) 0 0-10 % Neutrophils # (Auto) 4.7 1.8-7.8 10^3/uL Lymphocytes # (Auto) 2.1 1.0-4.0 10^3/uL Monocytes # (Auto) 1.3 H 0.0-1.0 10^3/uL Eosinophils # (Auto) 0.1 0.0-0.3 10^3/uL Basophils # (Auto) 0.0 0.0-0.1 10^3/uL Immature Granulocyte # (Auto) 0.0 0.0-0.1 10^3/uL Prothrombin Time 13.3 12.2-14.7 SEC INR Comment 1.0 0.8-1.4 Activated Partial Thromboplast Time 28 24-35 SEC Sodium Level 140 135-145 MMOL/L Potassium Level 3.8 3.6-5.0 MMOL/L Chloride Level 104 98-107 MMOL/L Carbon Dioxide Level 29 21-32 MMOL/L Anion Gap 7 5-14 MMOL/L Blood Urea Nitrogen 32 H 7-18 MG/DL Creatinine 1.67 H 0.60-1.30 MG/DL Estimat Glomerular Filtration Rate 33 BUN/Creatinine Ratio 19 Glucose Level 88 70-105 MG/DL Calcium Level 9.3 8.5-10.1 MG/DL Corrected Calcium 9.5 8.5-10.1 MG/DL Magnesium Level 1.6 1.6-2.4 MG/DL Total Bilirubin 0.4 0.1-1.0 MG/DL Aspartate Amino Transf (AST/SGOT) 21 5-34 U/L Alanine Aminotransferase (ALT/SGPT) 25 0-55 U/L Alkaline Phosphatase 118 40-136 U/L Myoglobin 124.1 H 10.0-92.0 NG/ML Troponin I 0.028 <0.028 NG/ML Total Protein 7.3 6.4-8.2 GM/DL Albumin 3.8 3.2-4.5 GM/DL Lactic Acid Level 1.30 0.50-2.00 MMOL/L Amylase Level 60 25-125 U/L Lipase 35 8-78 U/L Test 11/18/22 18:03 11/18/22 18:06 Range/Units B-Type Natriuretic Peptide 651.6 H <100.0 PG/ML Urine Color YELLOW Urine Clarity CLOUDY Urine pH 5.5 5-9 Urine Specific [place] 1.010 L 1.016-1.022 Urine Protein NEGATIVE NEGATIVE Urine Glucose (UA) NEGATIVE NEGATIVE Urine Ketones NEGATIVE NEGATIVE Urine Nitrite NEGATIVE NEGATIVE Urine Bilirubin NEGATIVE NEGATIVE Urine Urobilinogen 0.2 < = 1.0 MG/DL Urine Leukocyte Esterase TRACE H NEGATIVE Urine RBC (Auto) NEGATIVE NEGATIVE Urine RBC RARE /HPF Urine WBC RARE /HPF Urine Squamous Epithelial Cells 25-50 H /HPF Urine Crystals PRESENT H /LPF Urine Amorphous Sediment FEW INGRID URATES H /LPF Urine Bacteria TRACE /HPF Urine Casts NONE /LPF Urine Mucus NEGATIVE /LPF Urine Culture Indicated CULTURE PENDING My Orders Orders - TA LÓPEZ DO Ekg Tracing (11/18/22 17:57) Ed Iv/Invasive Line Start (11/18/22 17:57) Lactated Ringers (Lr 1000 Ml Iv Solution (11/18/22 18:00) Meropenem (Merrem 500 Mg) (11/18/22 18:00) Amylase (11/18/22 17:57) Bnp Jonas (11/18/22 17:57) Lipase (11/18/22 17:57) Straight Cath For Spec.-Adult (11/18/22 17:57) Aspirin Chewable Tablet (Baby Aspirin Ch (11/18/22 18:30) Catheter(Urinary) Insert & Ass 03,15 (11/18/22 18:32) Lidocaine 2% (Urojet) (Xylocaine Urojet) (11/18/22 18:45) Furosemide Injection (Lasix Injection) (11/18/22 18:45) Aspirin Chewable Tablet (Baby Aspirin Ch (11/18/22 18:29) Medications Given in ED Current Medications Medications Dose Ordered Sig/Giuseppe Route Start Time Stop Time Status Last Admin Dose Admin Acetaminophen 1,000 mg ONCE ONCE PO 11/18/22 17:30 11/18/22 17:31 DC 11/18/22 17:35 1,000 MG Aspirin 324 mg ONCE ONCE PO 11/18/22 18:30 11/18/22 18:32 DC 11/18/22 18:35 324 MG Furosemide 40 mg ONCE ONCE IVP 11/18/22 18:45 11/18/22 18:46 DC 11/18/22 18:50 40 MG Lactated Ringer's 1,000 ml @ 0 mls/hr Q0M ONCE IV 11/18/22 18:00 11/18/22 18:01 DC 11/18/22 18:08 0 MLS/HR Lidocaine HCl 10 ml ONCE ONCE TOP 11/18/22 18:45 11/18/22 18:46 DC 11/18/22 18:50 10 ML Meropenem 500 mg/ Sodium Chloride 100 ml @ 200 mls/hr ONCE ONCE IV 11/18/22 18:00 11/18/22 18:29 DC 11/18/22 18:35 200 MLS/HR Vital Signs/I&O 11/18/22 11/18/22 11/18/22 16:48 16:48 16:48 Temp 38.9 Pulse 61 Resp 17 B/P (MAP) 164/67 (99) Pulse Ox 93 O2 Delivery Nasal Cannula Nasal Cannula Nasal Cannula O2 Flow Rate 3.00 3.00 3.00 Capillary Refill : Less Than 3 Seconds Blood Pressure Mean: 99 Progress Note : Progress Note 1800--ASSUMED CARE FROM DR. PEREYRA. SEPSIS PROTOCOL AND CHEST PAIN PROTOCOL INITIATED COVID AND FLU TESTING ORDERED PT GIVEN: -IV FLUIDS -TYLENOL -ANTIBIOTICS -LASIX LABS INCLUDING CBC, CMP, MG, TROPONIN, BNP, UA, BLOOD CULTURES, LACTIC ACID, PT/PTT/INR, COVID AND FLU TESTS ORDERED EKG AND CXR ORDERED. VITALS ON ARRIVAL: TEMP 38.9 = 102, HR 61, RR 17, BP 164/67, O2 SAT 93% ON 3 L/ NC VITALS AT TIME OF ADMIT: NO DETERIORATION IN PT'S CONDITION DURING ER STAY DISCUSSED TEST RESULTS, NEED FOR ADMIT AND PT IS AGREEABLE TO PLAN PT WISHES TO BE A FULL CODE, AND WANTS INTUBATION IF NECESSARY REVIEWED PRIOR RECORDS--PT WITH MULTITUDE OF PRIOR VISITS, INCLUDING ER VISITS, ADMITS/H&P'S/CONSULTS/DISCHARGE SUMMARIES, TESTS/PROCEDURES ECG Initial ECG Impression Date: Nov 18, 2022 Initial ECG Impression Time: 17:00 Initial ECG Rate: 64 Initial ECG Comparisson: Unchanged Comment 100% A-V PACED INTERPRETED BY ME EKG : EKG Time: 18:11 Rate: 60 ECG Comparisson: Unchanged Comment 100% A-V PACED INTERPRETED BY ME Diagnostic Imaging Comments CXR--PER RADIOLOGIST REPORT AT 1801 FINDINGS: There is a left-sided cardiac assist device with leads. There is severe cardiomegaly. Heart size and mediastinal contours are essentially unchanged. There is no identified pneumothorax. There is right mid and lower lung zone consolidation which is essentially unchanged. IMPRESSION: 1. Redemonstrated severe cardiomegaly. 2. Essentially unchanged right mid and lower lung zone consolidation which may relate to infiltrate, atelectasis, and/or effusion. Reviewed: Reviewed by Me Departure Communication (Admissions) 1899--SPOKE WITH DR. AGARWAL, HOSPITALIST FOR [facility]. ACCEPTS PT FOR ADMIT. WILL CONSULT CARDIOLOGY IN AM Impression Primary Impression: Sepsis Additional Impressions: Persistent pneumonia Chronic respiratory failure CAD WITH RECENT NSTEMI PACEMAKER IN PLACE CHF Morbid obesity Poor mobility CHRONIC PAIN OPIATE DEPENDENT Chronic anemia COVID-19 virus infection Chest pain Disposition: ADMITTED INPATIENT Condition: Stable Admissions Decision to Admit Reason: Admit from ER (General) Decision to Admit/Date: Nov 18, 2022 Time/Decision to Admit Time: 19:00 Departure-Patient Inst. Referrals: [facility] [place] ([place]P/Family) Primary Care Physician TA LÓPEZ DO Nov 18, 2022 18:01
[2022-11-18 18:06] LABS: AMYLASE 60 U/L (25-125)
[2022-11-18 18:09] LABS: BILIRUBIN,URINE NEGATIVE (NEGATIVE); CLARITY,URINE CLOUDY; COLOR,URINE YELLOW; GLUCOSE, URINE (UA) NEGATIVE (NEGATIVE); KETONES,URINE NEGATIVE (NEGATIVE); LEUKOCYTE ESTERASE ,URINE TRACE (NEGATIVE); NITRITE,URINE NEGATIVE (NEGATIVE); PH,URINE 5.5 (5-9); PROTEIN,URINE NEGATIVE (NEGATIVE)
[2022-11-18 18:14] LABS: LIPASE 35 U/L (8-78)
[2022-11-18] MEDS ORDERED: ASPIRIN 81 MG CHEW (CHILDREN'S ASA) ONE (18:29)
[2022-11-18] MEDS ORDERED: ASPIRIN 81 MG CHEW (CHILDREN'S ASA) PO ONE (18:30)
[2022-11-18 18:33] LABS: BACTERIA,URINE TRACE /HPF; RBC,URINE RARE /HPF; WBC,URINE RARE /HPF
[2022-11-18 18:34] LABS: AMORPHOUS SEDIMENT,UR FEW AMOR URATES /LPF; SQUAMOUS EPITHELIAL CELL,UR 25-50 /HPF
[2022-11-18] MEDS ORDERED: FUROSEMIDE 40 MG/4 ML INJ (LASIX) IVP ONE (18:45)
[2022-11-18] MEDS ORDERED: LIDOCAINE UROJET 2% GEL 10 ML PKG TOP ONE (18:45)
[2022-11-18 20:15] VITALS: BP 127/67
[2022-11-18 20:30] VITALS: BP 113/51
[2022-11-18 20:45] VITALS: BP 140/58
[2022-11-18 21:00] VITALS: BP 115/47
[2022-11-18] MEDS: LACTATED RINGERS 1,000 ML IV SCH (21:06)
[2022-11-18 21:30] VITALS: BP 110/49
[2022-11-18] MEDS: RT-ALBUTEROL HFA 8.5 GM INHALER IH SCH (22:14)
[2022-11-18] MEDS ORDERED: RT-ALBUTEROL SULF 2.5 MG/3 ML PRE-MIX VIAL IH PRN (22:45)
[2022-11-18] MEDS ORDERED: morphine INJ 4 MG/ML 1 ML (VIAL/SYRINGE) IV PRN (23:30)
[2022-11-18] MEDS ORDERED: NITROGLYCERIN 0.4 MG SL TABS BTL 25'S SL PRN (23:30)
[2022-11-18] MEDS ORDERED: ONDANSETRON 4 MG/2 ML (SDV) Z0FRAN IV PRN (23:30)
[2022-11-18] MEDS ORDERED: ACETAMINOPHEN 500 MG TAB (TYLENOL) PO PRN (23:30)
[2022-11-19] VITALS: BP 114/50
[2022-11-19] MEDS ORDERED: RT-ALBUTEROL SULF 2.5 MG/3 ML PRE-MIX VIAL IH SCH (02:00)
[2022-11-19] MEDS: MEROPENEM 500 MG/NS 100 ML IVPB IV SCH ×6 (02:07→17:34)
[2022-11-19 04:00] VITALS: BP 121/71
[2022-11-19] MEDS: RT-ALBUTEROL HFA 8.5 GM INHALER IH SCH ×5 (05:01→22:19)
[2022-11-19 05:03] LABS: BASOPHILS % (AUTO) 0 % (0-10); EOSINOPHILS # (AUTO) 0.1 10^3/uL (0.0-0.3); EOSINOPHILS % (AUTO) 2 % (0-10); HEMATOCRIT 31 % (35-52); HEMOGLOBIN 9.4 g/dL (11.5-16.0); LYMPHOCYTES % (AUTO) 17 % (12-44); MEAN CORPUSCULAR HEMOGLOBIN 27 pg (25-34); MEAN CORPUSCULAR HGB CONC 30 g/dL (32-36); MEAN CORPUSCULAR VOLUME 91 fL (80-99); MEAN PLATELET VOLUME 9.5 fL (9.0-12.2); MONOCYTES # (AUTO) 0.7 10^3/uL (0.0-1.0); MONOCYTES % (AUTO) 13 % (0-12); NEUTROPHILS # (AUTO) 3.8 10^3/uL (1.8-7.8); NEUTROPHILS % (AUTO) 68 % (42-75); PLATELET COUNT 160 10^3/uL (130-400); WHITE BLOOD COUNT 5.6 10^3/uL (4.3-11.0)
[2022-11-19 05:14] LABS: ALBUMIN 3.3 GM/DL (3.2-4.5); POTASSIUM 3.4 MMOL/L (3.6-5.0)
[2022-11-19 05:16] LABS: TOTAL PROTEIN 6.4 GM/DL (6.4-8.2)
[2022-11-19 05:18] LABS: BILIRUBIN,TOTAL 0.4 MG/DL (0.1-1.0)
[2022-11-19 05:20] LABS: CREATININE SERUM 1.46 MG/DL (0.60-1.30)
--- NOTE | 2022-11-19 05:30 | History & Physical-Hospitalist ---
History of Present Illness HPI/Chief Complaint Chief complaint: COVID-pneumonia HPI: This is a 67-year-old female due to multiple hospital stays has a past medical history of severe COPD who presented to the ER with shortness of breath and weakness have COVID-pneumonia with acute on chronic respiratory failure. Currently she is doing much better so we will move down to fourth floor. She remains on isolation. Home meds will be reviewed and restarted. Source: patient Exam Limitations: no limitations Date Seen 11/19/22 Time Seen by a Provider: 11:00 Attending Physician [facility] PCP Admitting Physician: Zahraa Bojorquez MD Attending Physician: Zahraa Bojorquez MD Referring Physician Date of Admission Nov 18, 2022 at 19:54 Home Medications & Allergies Home Medications Reviewed patient Home Medication Reconciliation performed by pharmacy medication reconciliations overhead door technician and/or nursing. Patients Allergies have been reviewed. Allergies Allergies Coded Allergies ceftriaxone (Verified Allergy, Unknown, pt has received Zosyn w/o issue, 05/09/19) ibuprofen (Verified Allergy, Unknown, PT TAKES ASA AT HOME, 08/02/17) PER MED REC diazepam (Verified Adverse Reaction, Severe, 12/04/18) Past Mppuhqq-Lfptme-Yopfbc Hx Patient Social History Marrital Status: single Employed/Student: retired Tobacco Use?: No Smoking Status: Never a Smoker Smokeless Tobacco Frequency: Never a User Use of E-Cig and/or Vaping dev: No Substance use?: No Alcohol Use?: No Pt feels they are or have been: No Immunizations Up To Date Date of Influenza Vaccine: May 13, 2021 First/Initial COVID19 Vaccinat: UNKNOWN DATE Second COVID19 Vaccination Jamarcus: UNKNOWN DATE Tetanus Booster (TDap): Unknown Date of Pneumonia Vaccine: Mar 13, 2013 Seasonal Allergies Seasonal Allergies: No Current Status status: No status: No Advance Directives: No Communicates: Verbally Primary Language: Guinean Preferred Spoken Language: Guinean Is interpretation needed?: No Sensory deficits: Vision impairment Implanted or Applied Medical D: Stents Past Medical History Surgeries: Abdominal, Adenoidectomy, Cardiac, Coronary Stent, Gallbladder, Pacemaker, Tonsillectomy Pneumonia, Sleep Apnea, COPD Currently Using CPAP: No Currently Using BIPAP: No Atrial Fibrillation, Chronic Edema/Swelling, Coronary Artery Disease, Deep Vein Thrombosis, Heart Attack, High Cholesterol, Hypertension DOOR MANAGER History: Tubal Ligation, 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 COPD 2. Anemia of Chronic Disease 3. Morbid Obesity 4. Enterocutaneous Fistula history with buttermaker continuous churn TPA- resolved 5. History of Villous adenoma sp polypectomy 6. DM- uncontrolled 7. CAD with history of PTCA Dr. De Leon 2010 8. A-flutter, possible A-Fib- did not tolerate anticogulant 9. HTN 10. HLP 11. Hypothyroidism 12. Extreme morbid obesity 13. History of DVT with intolerance to anticoagulant 14. Obesity hypoventilation syndrome 15. Chronic hypoxemic respiratory failure on home O2 16. Chronic pain/ narcotic dependent 17. Neuropathy 18. Arthritis 19. Glaucoma 20. Cataracts Past Surgical History 1. Infected abdominal mesh/hernia repair/fistula repair 2013 Dr. Zaman 2. Cholecystectomy 3. Tubal ligation 4. Abdominal Wall hernia repair Dr. Jonas 2003 5. D&C- Escobar 2008 6. Colonoscopy with polypectomy for colon ca (villous adenoma) 2005 Pritesh 7. Colonoscopy 2006 Pritesh 8. Tonsillectomy 9. Eye surgery 9. Cardiac Cathaterization with PTCA and stent [id number] Ion to mid LAD Family Medical History Cancer 03 MOTHER, Onset:40's - 50 Family history: Cardiovascular disease 03 FATHER, Onset:40's - 50 03 MOTHER, Onset:30's - 40 Myocardial infarction 03 MOTHER, Onset:30's - 40 Heart Disease, Cancer, CAD Under 55 Years Old CARDIAC CATH 10/18/[address] DE LEON : CONCLUSION: 95% in-stent restenosis in the proximal and mid LAD with successful balloon angioplasty with no residual stenosis using 3 x 20 noncompliant balloon Dominant right coronary artery with no obstructive disease very minimal ostial left main coronary artery stenosis Mildly elevated left ventricular end-diastolic pressure DISCUSSION AND RECOMMENDATION: Continue to maximize medical therapy, continue on aspirin and Plavix Review of Systems Constitutional: see HPI, malaise, weakness Respiratory: cough, dyspnea on exertion Physical Exam Physical Exam Vital Signs Vital Signs - First Documented Capillary Refill : Less Than 3 Seconds Height, Weight, BMI Height: 5'2.00" Weight: 273lbs. 0.0oz. 123.673222ri; 36.56 BMI Method:Stated General Appearance: No Apparent Distress, Chronically ill, Obese Eyes: Right Eye Normal Inspection, Right Eye PERRL HEENT: PERRL/EOMI, Normal ENT Inspection, Pharynx Normal, Moist Mucous Membranes Neck: Full Range of Motion, Normal Inspection, Non Tender Respiratory: Chest Non Tender, No Accessory Muscle Use, No Respiratory Distress, Crackles, Decreased Breath Sounds Cardiovascular: Regular Rate, Rhythm, No Edema, No Gallop, No JVD, No Murmur, Normal Peripheral Pulses Gastrointestinal: Normal Bowel Sounds, No Organomegaly, No Pulsatile Mass, Non Tender, Soft Back: Normal Inspection, No CVA Tenderness, No Vertebral Tenderness Extremity: Normal Capillary Refill, Normal Inspection, Normal Range of Motion, Non Tender, No Calf Tenderness, No Pedal Edema Neurologic/Psychiatric: Alert, Oriented x3, No Motor/Sensory Deficits, Normal Mood/Affect Skin: Normal Color, Warm/Dry Lymphatic: No Adenopathy Results Results/Procedures Labs Laboratory Tests 11/18/22 16:55 11/19/22 04:27 Patient resulted labs reviewed. Assessment/Plan Admission Diagnosis Assessment: Acute on chronic respiratory failure COVID-pneumonia Bacterial pneumonia RAVEN noncompliant with CPAP COPD Obesity Hypertension Hyperlipidemia Plan: Supportive alf meds Moved to fourth floor Admission Status: Inpatient Order (span 2 midnights) Reason for Inpatient Admission: COVID-pneumonia KASSIDY IRELAND DO Nov 19, 2022 05:30
[2022-11-19] MEDS: RT-ALBUTEROL HFA 8.5 GM INHALER IH PRN (06:50)
[2022-11-19] MEDS: LACTATED RINGERS 1,000 ML IV SCH (08:39)
[2022-11-19] MEDS: ASPIRIN E.C. 81 MG (ECOTRIN) TAB PO SCH (08:39)
--- NOTE | 2022-11-19 11:02 | Consultation-Cardiology ---
HPI-Cardiology Cardiology Consultation Date of Consultation 11/19/22 Date of Admission Time Seen by Provider: 10:57 Indication: Chest pain HPI 67-year-old lady with history of coronary artery disease, multiple intervention in the past. Came into the hospital for fever, generalized malaise, reported mild chest discomfort. She was diagnosed with COVID-19 infection. On my evaluation she was laying down in bed, denied any active chest pain, still having generalized weakness and loss of energy. Home Medications & Allergies Allergies: Coded Allergies: ceftriaxone (Verified Allergy, Unknown, pt has received Zosyn w/o issue, 05/09/19) ibuprofen (Verified Allergy, Unknown, PT TAKES ASA AT HOME, 08/02/17) PER MED REC diazepam (Verified Adverse Reaction, Severe, 12/04/18) Home Medication List Reviewed: Yes VCE-Tqiquk-Imjqgo Hx Patient Social History Marital Status: single Employed/Student: retired Smoking Status: Never a Smoker 2nd Hand Smoke Exposure: No Recent Hopitalizations: No Alcohol Use?: No Immunizations Up To Date Tetanus Booster (TDap): Unknown Date of Pneumonia Vaccine: Mar 13, 2013 Date of Influenza Vaccine: May 13, 2021 Past Medical History Discussed below Family Medical History Significant Family History: Heart Disease, Cancer, CAD Under 55 Years Old Family History: Cancer 03 MOTHER, Onset:40's - 50 Family history: Cardiovascular disease 03 FATHER, Onset:40's - 50 03 MOTHER, Onset:30's - 40 Myocardial infarction 03 MOTHER, Onset:30's - 40 Review of Systems-General Review of Systems Constitutional: see HPI, fever, malaise EENTM: no symptoms reported Respiratory: see HPI, cough, short of breath Cardiovascular: see HPI, chest pain Gastrointestinal: no symptoms reported Genitourinary: no symptoms reported Musculoskeletal: no symptoms reported Skin: no symptoms reported Psychiatric/Neurological: See HPI Reviewed Test Results Reviewed Test Results Lab Laboratory Tests Test 11/18/22 16:55 11/18/22 17:37 11/18/22 18:02 11/18/22 18:03 Range/Units White Blood Count 8.4 4.3-11.0 10^3/uL Red Blood Count 3.51 L 3.80-5.11 10^6/uL Hemoglobin 9.5 L 11.5-16.0 g/dL Hematocrit 32 L 35-52 % Mean Corpuscular Volume 92 80-99 fL Mean Corpuscular Hemoglobin 27 25-34 pg Mean Corpuscular Hemoglobin Concent 30 L 32-36 g/dL Red Cell Distribution Width 17.5 H 10.0-14.5 % Platelet Count 202 130-400 10^3/uL Mean Platelet Volume 9.7 9.0-12.2 fL Immature Granulocyte % (Auto) 1 % Neutrophils (%) (Auto) 57 42-75 % Lymphocytes (%) (Auto) 26 12-44 % Monocytes (%) (Auto) 15 H 0-12 % Eosinophils (%) (Auto) 2 0-10 % Basophils (%) (Auto) 0 0-10 % Neutrophils # (Auto) 4.7 1.8-7.8 10^3/uL Lymphocytes # (Auto) 2.1 1.0-4.0 10^3/uL Monocytes # (Auto) 1.3 H 0.0-1.0 10^3/uL Eosinophils # (Auto) 0.1 0.0-0.3 10^3/uL Basophils # (Auto) 0.0 0.0-0.1 10^3/uL Immature Granulocyte # (Auto) 0.0 0.0-0.1 10^3/uL Prothrombin Time 13.3 12.2-14.7 SEC INR Comment 1.0 0.8-1.4 Activated Partial Thromboplast Time 28 24-35 SEC Sodium Level 140 135-145 MMOL/L Potassium Level 3.8 3.6-5.0 MMOL/L Chloride Level 104 98-107 MMOL/L Carbon Dioxide Level 29 21-32 MMOL/L Anion Gap 7 5-14 MMOL/L Blood Urea Nitrogen 32 H 7-18 MG/DL Creatinine 1.67 H 0.60-1.30 MG/DL Estimat Glomerular Filtration Rate 33 BUN/Creatinine Ratio 19 Glucose Level 88 70-105 MG/DL Calcium Level 9.3 8.5-10.1 MG/DL Corrected Calcium 9.5 8.5-10.1 MG/DL Magnesium Level 1.6 1.6-2.4 MG/DL Total Bilirubin 0.4 0.1-1.0 MG/DL Aspartate Amino Transf (AST/SGOT) 21 5-34 U/L Alanine Aminotransferase (ALT/SGPT) 25 0-55 U/L Alkaline Phosphatase 118 40-136 U/L Myoglobin 124.1 H 10.0-92.0 NG/ML Troponin I 0.028 <0.028 NG/ML Total Protein 7.3 6.4-8.2 GM/DL Albumin 3.8 3.2-4.5 GM/DL Lactic Acid Level 1.30 0.50-2.00 MMOL/L Amylase Level 60 25-125 U/L Lipase 35 8-78 U/L B-Type Natriuretic Peptide 651.6 H <100.0 PG/ML Test 11/18/22 18:06 11/18/22 21:25 11/19/22 00:23 11/19/22 04:27 Range/Units Urine Color YELLOW Urine Clarity CLOUDY Urine pH 5.5 5-9 Urine Specific [place] 1.010 L 1.016-1.022 Urine Protein NEGATIVE NEGATIVE Urine Glucose (UA) NEGATIVE NEGATIVE Urine Ketones NEGATIVE NEGATIVE Urine Nitrite NEGATIVE NEGATIVE Urine Bilirubin NEGATIVE NEGATIVE Urine Urobilinogen 0.2 < = 1.0 MG/DL Urine Leukocyte Esterase TRACE H NEGATIVE Urine RBC (Auto) NEGATIVE NEGATIVE Urine RBC RARE /HPF Urine WBC RARE /HPF Urine Squamous Epithelial Cells 25-50 H /HPF Urine Crystals PRESENT H /LPF Urine Amorphous Sediment FEW INGRID URATES H /LPF Urine Bacteria TRACE /HPF Urine Casts NONE /LPF Urine Mucus NEGATIVE /LPF Urine Culture Indicated CULTURE PENDING Troponin I 0.040 H 0.028 <0.028 NG/ML White Blood Count 5.6 4.3-11.0 10^3/uL Red Blood Count 3.44 L 3.80-5.11 10^6/uL Hemoglobin 9.4 L 11.5-16.0 g/dL Hematocrit 31 L 35-52 % Mean Corpuscular Volume 91 80-99 fL Mean Corpuscular Hemoglobin 27 25-34 pg Mean Corpuscular Hemoglobin Concent 30 L 32-36 g/dL Red Cell Distribution Width 17.6 H 10.0-14.5 % Platelet Count 160 130-400 10^3/uL Mean Platelet Volume 9.5 9.0-12.2 fL Immature Granulocyte % (Auto) 1 % Neutrophils (%) (Auto) 68 42-75 % Lymphocytes (%) (Auto) 17 12-44 % Monocytes (%) (Auto) 13 H 0-12 % Eosinophils (%) (Auto) 2 0-10 % Basophils (%) (Auto) 0 0-10 % Neutrophils # (Auto) 3.8 1.8-7.8 10^3/uL Lymphocytes # (Auto) 1.0 1.0-4.0 10^3/uL Monocytes # (Auto) 0.7 0.0-1.0 10^3/uL Eosinophils # (Auto) 0.1 0.0-0.3 10^3/uL Basophils # (Auto) 0.0 0.0-0.1 10^3/uL Immature Granulocyte # (Auto) 0.0 0.0-0.1 10^3/uL Sodium Level 141 135-145 MMOL/L Potassium Level 3.4 L 3.6-5.0 MMOL/L Chloride Level 102 98-107 MMOL/L Carbon Dioxide Level 28 21-32 MMOL/L Anion Gap 11 5-14 MMOL/L Blood Urea Nitrogen 29 H 7-18 MG/DL Creatinine 1.46 H 0.60-1.30 MG/DL Estimat Glomerular Filtration Rate 39 BUN/Creatinine Ratio 20 Glucose Level 89 70-105 MG/DL Calcium Level 9.0 8.5-10.1 MG/DL Corrected Calcium 9.6 8.5-10.1 MG/DL Total Bilirubin 0.4 0.1-1.0 MG/DL Aspartate Amino Transf (AST/SGOT) 23 5-34 U/L Alanine Aminotransferase (ALT/SGPT) 20 0-55 U/L Alkaline Phosphatase 112 40-136 U/L B-Type Natriuretic Peptide 314.4 H <100.0 PG/ML Total Protein 6.4 6.4-8.2 GM/DL Albumin 3.3 3.2-4.5 GM/DL Triglycerides Level 206 H <150 MG/DL Cholesterol Level 111 < 200 MG/DL LDL Cholesterol Direct 37 1-129 MG/DL VLDL Cholesterol 41 H 5-40 MG/DL HDL Cholesterol 23 L 40-60 MG/DL Physical Exam Physical Exam Vital Signs Vital Signs - First Documented Capillary Refill : Less Than 3 Seconds Height, Weight, BMI Height: 5'2.00" Weight: 273lbs. 0.0oz. 123.656208hp; 39.10 BMI Method:Stated General Appearance: No Apparent Distress, WD/WN, Obese HEENT: PERRL/EOMI Neck: Other (MASSIVE AMOUNT OF FAT TO ANTERIOR NECK) Respiratory: Normal Breath Sounds, No Accessory Muscle Use, No Respiratory Distress Cardiovascular: Regular Rate, Rhythm, No Murmur Gastrointestinal: Non Tender, Soft Back: No CVA Tenderness Extremity: Normal Capillary Refill, Normal Range of Motion, Pedal Edema (1-2+ EDEMA BILATERALLY) Neurologic/Psychiatric: Alert, Oriented x3, No Motor/Sensory Deficits, Normal Mood/Affect Skin: Normal Color, Warm/Dry (VERY WARM) A/P-Cardiology Admission Diagnosis COVID-19 pneumonia Fever Coronary artery disease Hypertension Assessment/Plan Recurrent pneumonia Currently diagnosed COVID-19 positive Admitted and managed by primary care physician Chest pain, nonspecific etiology, atypical in presentation No further episodes of chest pain. Mild elevation in troponin, repeat troponin was normal. Probably variant of normal finding. Coronary artery disease History of stent to LAD using 3.012 mm Ion stent to the LAD. Cardiac catheterization done in July 2015 revealed patent stent in the LAD with otherwise nonobstructive disease. Cardiac catheterization done July 12, 2018 revealed patent stent in the mid LAD with mild disease at the mid to distal LAD nonobstructive disease, otherwise mild coronary artery disease Acute myocardial infarction on June 13, 2021 underwent emergency cardiac catheterization with Dr. Haque, patent stent in the mid LAD however there was severe disease between the 2 stents of the distal LAD, underwent drug-eluting stent placement Skypoint stent 3.5 x 15 mm with excellent results. Cardiac catheterization was carried out on January 27, 2022 showing moderate to severe proximal LAD stenosis with subtotal occlusion within the stent in the proximal LAD, unsuccessful balloon angioplasty then stenting of the LAD, inte rvention was noted with Dr. Haque with excellent results. Mild disease otherwise. Cardiac catheterization performed October 18, 2022 which showed results of 95% in- stent restenosis in the proximal and mid LAD. Successful balloon angioplasty with no residual stenosis. Dominant RCA with no obstructive disease, very minimal left main coronary artery stenosis. Mildly elevated left ventricular end-diastolic pressure. Continue on aspirin and Plavix, continue to monitor Anemia, Monitor H&H Acute on chronic renal insufficiency, Continue to monitor renal function Congestive heart failure, chronic left ventricular diastolic dysfunction. Compensated at this point. Continue to monitor Sick Sinus Syndrom with Questionable episode of paroxysmal atrial fibrillation during hospitalization, had an EKG showing sinus rhythm with frequent PACs, no definite atrial fibrillation noted during the hospitalization. EKG was done in the office showing sinus bradycardia with a heart rate 43 with escape junctional rhythm. Underwent Dual chamber permanent pacemaker implantation on 07/08/21, [employer] Tiny XT DR ZAVALA. Intolerance to aggressive anticoagulation due to anemia and GI bleed. Hypertension, monitor blood pressure Hyperlipidemia, monitor lipids Mild bilateral carotid stenosis, ultrasound was done in May 2022, continue to monitor COPD, oxygen dependent, had seen Dr. Perkins in the past, follows with primary care physician. History of deep venous thrombosis, Xarelto was discontinued by Dr. 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 Obesity. BMI is 51. Patient was educated again on weight loss. History of tonsillectomy, colonoscopy. DNC procedure. Skin cancer of face- patient to undergo excision to be done by ALLY Salcedo MD Nov 19, 2022 11:02
[2022-11-19] MEDS ORDERED: diphenhydrAMINE 50 MG/ML INJ (BENADRYL) IVP PRN (11:30)
[2022-11-19] MEDS ORDERED: ANTACID SUSP 30 ML UDC (MYLANTA) PO PRN (11:30)
[2022-11-19] MEDS ORDERED: ONDANSETRON 4 MG/2 ML (SDV) Z0FRAN IV PRN (11:30)
[2022-11-19] MEDS ORDERED: ONDANSETRON 4 MG (ZOFRAN) ORAL DISSOLVE TAB PO PRN (11:30)
[2022-11-19] MEDS ORDERED: diphenhydrAMINE 25 MG TAB (BENADRYL) PO PRN (11:30)
[2022-11-19] MEDS ORDERED: VANCOMYCIN INJECTION 1,000 MG in NS (IVPB) 250 ML IV SCH (11:30)
[2022-11-19] MEDS ORDERED: ACETAMINOPHEN 325 MG TABLET PO PRN (11:30)
[2022-11-19] MEDS ORDERED: BISACODYL 10 MG SUPP (DULCOLAX) PR PRN (11:30)
[2022-11-19] MEDS ORDERED: LACTULOSE SYRUP 10GM/15ML (ENULOSE) 30ML UDC PO PRN (11:30)
[2022-11-19] MEDS ORDERED: CALCIUM CARBONATE 500 MG (TUMS) TAB.CHEW PO PRN (11:30)
[2022-11-19] MEDS ORDERED: MELATONIN 3 MG TABLET PO PRN (11:30)
[2022-11-19] MEDS ORDERED: polyethylene glycoL POWDER 17 GM (MIRALAX) PACK PO PRN (11:30)
[2022-11-19] MEDS ORDERED: MILK OF MAGNESIA 400 MG/5 ML 30 ML UDC PO PRN (11:30)
[2022-11-19] MEDS: VANCOMYCIN 2000 MG/NS 500 ML IVPB IV ONE ×4 (12:54→13:13)
[2022-11-19] MEDS: ENOXAPARIN 40 MG/0.4 ML (LOVENOX) SYR SC SCH (12:54)
[2022-11-19 13:15] VITALS: BP 137/65
--- NOTE | 2022-11-19 14:07 | Physical Therapy Evaluation ---
PT Evaluation-General Medical Diagnosis Admission Date Nov 18, 2022 at 19:54 Medical Diagnosis: COVID Onset Date: Nov 18, 2022 Therapy Diagnosis Therapy Diagnosis: generalized weakness Height/Weight Height (Feet): 5 Height (Inches): 2.00 Weight (Pounds): 273 Weight (Ounces): 0.0 Precautions Precautions/Isolations: Airborne Isolation, Contact Isolation, Fall Prevention Weight Bear Status Right Lower Extremity: Right Full Weight Bearing Left Lower Extremity: Left Full Weight Bearing Referral Physician: Dr. Pino Reason for Referral: Evaluation/Treatment Medical History Pertinent Medical History: Atrial Fib, Arthritis, CAD, DM, Diverticulitis, HTN, Hypothroidism, [place] Social History Home: Single Level Current Living Status: Other Family Entry Into Home: Ramp Prior Prior Level of Function SCALE: Activities may be completed with or without assistive devices. 5-Zxdoepqqkl-xjgqkrt completes the activity by him/herself with no assistance from a helper. 5-Set-up or Clean-up Assistance-helper sets up or cleans up; patient completes activity. [place] assists only prior to or following the activity. 4-Supervision or Touching Assistance-helper provides verbal cues and/or touching/steadying and/or contact guard assistance as patient completes activity. Assistance may be provided throughout the activity or intermittently. 3-Partial/Moderate Assistance-helper does LESS THAN HALF the effort. [place] lifts, holds or supports trunk or limbs, but provides less than half the effort. 2-Substantial/Maximal Assistance-helper does MORE THAN HALF the effort. [place] lifts or holds trunk or limbs and provides more than half the effort. 4-Cdsrjppag-dkfdmt does ALL the effort. Patient does none of the effort to complete the activity. Or, the assistance of 2 or more helpers is required for the patient to complete the activity. If activity was not attempted, code reason: 7-Patient Refused. 9-Not Applicable-not attempted and the patient did not perform the activity before the current illness, exacerbation or injury. 10-Not Attempted due to Environmental Limitations-(lack of equipment, weather restraints, etc.). 88-Not Attempted due to Medical Conditions or Safety Concerns. Bed Mobility: 6 Transfers (B,C,W/C): 6 Gait: 9 Stairs: 9 Wheelchair Mobility: 6 Indoor Mobility (Ambulation): Not [place] Stairs: Not [place] Prior Devices Use: Manual wheelchair PT Evaluation-Current Subjective Patient lying supine in bed upon PT arrival, agreeable to treatment. Patient rates pain at 0/10 currently. Objective Patient Orientation: Person, Place, Time, Situation Attachments: Oxygen, Cano Catheter, IV ROM/Strength ROM Lower Extremities Limited all planes, however WFLs for her at baseline. Strength Lower Extremities 3+/5 BLEs all planes Sensory Vision: Wears Glasses Hearing: Functional Sensation Right Lower Extremit: Intact Sensation Left Lower Extremity: Intact Transfers Roll Left to Right (QC): 4 Sit to Lying (QC): 4 Lying to Sitting/Side of Bed(Q: 4 Sit to Stand (QC): 4 Chair/Ovx-qw-Vwccs Xfer(QC): 4 Gait Does the Patient Walk?: No and Walking Goal NOT indicated Mode of Locomotion: Wheelchair Anticipated Mode of Locomotion: Wheelchair Balance Sitting Static: Good Sitting Dynamic: Good Standing Static: Fair Standing Dynamic: Fair Assessment/Needs Patient at baseline as she does not ambulate and at home only transfers herself from bed to/from chair/w/c. No further PT at this time. Rehab Potential: Poor PT Plan Treatment/Plan Treatment Plan: Discontinue PT Treatment Duration: Nov 19, 2022 Frequency: Time Time In: 1340 Time Out: 1400 DATE: Nov 19, 2022 Total Billed Treatment Time: 20 Total Billed Treatment Visit, ARIELA RUTLEDGE PT Nov 19, 2022 14:07
--- NOTE | 2022-11-19 14:08 | Occupational Therapy Eval ---
OT Evaluation-General/PLF Medical Diagnosis Admission Date Nov 18, 2022 at 19:54 Medical Diagnosis: Covid/ chest pain Onset Date: Nov 18, 2022 Therapy Diagnosis Therapy Diagnosis: restricted movement, taxing actvity Height/Weight Height (Feet): 5 Height (Inches): 2.00 Weight (Pounds): 273 Weight (Ounces): 0.0 Precautions Precautions/Isolations: Airborne Isolation, Contact Isolation, Fall Prevention Weight Bear Status Weight Bearing Restriction: Full Weight Bearing Referral Referral Reason: Self Care, Evaluation/Treatment Medical History Pertinent Medical History: Atrial Fib, Arthritis, CAD, DM, Diverticulitis, HTN, Hypothroidism, [place] Additional Medical History obesity Current History 67-year-old lady with history of coronary artery disease, multiple intervention in the past. Came into the hospital for fever, generalized malaise, reported mild chest discomfort. She was diagnosed with COVID-19 infection. Reviewed History: Yes Social History Home: Single Level Current Living Status: Other Family Entry Into Home: Ramp ADL-Prior Level of Function SCALE: Activities may be completed with or without assistive devices. 8-Yxjfgdofma-auzqyiv completes the activity by him/herself with no assistance from a helper. 5-Set-up or Clean-up Assistance-helper sets up or cleans up; patient completes activity. [place] assists only prior to or following the activity. 4-Supervision or Touching Assistance-helper provides verbal cues and/or touching/steadying and/or contact guard assistance as patient completes activity. Assistance may be provided throughout the activity or intermittently. 3-Partial/Moderate Assistance-helper does LESS THAN HALF the effort. [place] lifts, holds or supports trunk or limbs, but provides less than half the effort. 2-Substantial/Maximal Assistance-helper does MORE THAN HALF the effort. [place] lifts or holds trunk or limbs and provides more than half the effort. 2-Qojuaqslv-ydgvqc does ALL the effort. Patient does none of the effort to complete the activity. Or, the assistance of 2 or more helpers is required for the patient to complete the activity. If activity was not attempted, code reason: 7-Patient Refused. 9-Not Applicable-not attempted and the patient did not perform the activity before the current illness, exacerbation or injury. 10-Not Attempted due to Environmental Limitations-(lack of equipment, weather restraints, etc.). 88-Not Attempted due to Medical Conditions or Safety Concerns. Self Care: Independent Functional Cognition: Independent DME/Equipment: Bath Chair, Grab Bars DME/Equipment Comments WC [address] Self: No OT Current Status Subjective Agreeable to therapy, doesn't understand how she has COVID Mental Status/Objective Patient Orientation: Person, Place, Time, Situation Attachments: IV, Oxygen (4 Liters NC) Current Glasses/Contacts: Yes Upper Extremity ROM excessive soft tissue limits close joint approximation, however WFLs to perform ADLS modified Upper Extremity Coordination [facility] BUE INTACT Upper Extremity Strength 4/5 grossly ADL-Treatment Eating (QC): 6 Oral Hygiene (QC): 5 (d/t environment) Shower/Bathe Self (QC): 7 Upper Body Dressing (QC): 5 Lower Body Dressing (QC): 5 On/Off Footwear (QC): 7 (absolutely refused to wear foot coverings) Toileting Hygiene (QC): 6 Education OT Patient Education: Exercise program, Rehab process, Safety issues, Transfer techniques Teaching Recipient: Patient Teaching Methods: Discussion Response to Teaching: Verbalize Understanding OT Senior Care Goals Senior Care Goals 1=Demonstrate adherence to instructed precautions during ADL tasks. 2=Patient will verbalize/demonstrate understanding of assistive devices/modifications for ADL. 3=Patient will improve strength/tolerance for activity to enable patient to perform ADL's. OT Education/Plan Problem List/Assessment Assessment: Decreased Activ Tolerance PLOF. Patient at baseline Discharge Recommendations Plan/Recommendations: Discontinue OT Therapy Discharge Recommendati: Home & Family Treatment Plan/Plan of Care Patient would benefit from OT for education, treatment and training to promote independence in ADL's, mobility, safety and/or upper extremity function for ADL's. Plan of Care: OTHER (eval only) Treatment Duration: Nov 19, 2022 Frequency: 1 time per week Estimated Hrs Per Day: .25 hour per day Agreement: Yes Rehab Potential: Good Time Start Time: 13:37 Stop Time: 14:00 DATE: Nov 19, 2022 Total Time Billed (hr/min): 23 Billed Treatment Time ADL, EVL 23 min YARITZA GONZALEZ OT Nov 19, 2022 14:08
[2022-11-19] MEDS ORDERED: OXYC1TAB15 PO (14:37)
[2022-11-19] MEDS ORDERED: LEVO150T6 PO (14:37)
[2022-11-19] MEDS ORDERED: CLOP75TA28 PO (14:37)
[2022-11-19 15:40] VITALS: BP 154/71
[2022-11-19] MEDS: inSUlin ASPART (NovoLOG) 1 UNIT/0.01 ML (CHARGE PER UNIT) SC SCH ×2 (15:40→20:30)
[2022-11-19 15:51] VITALS: BP 154/71
[2022-11-19 19:23] VITALS: BP 134/60
[2022-11-19] MEDS: SENNOSIDES 8.6 MG (SENOKOT) TAB PO SCH (20:29)
[2022-11-19] MEDS: DOCUSATE SODIUM 100 MG (COLACE) CAP PO SCH (20:30)
[2022-11-20] VITALS: BP 131/62
[2022-11-20] MEDS: MEROPENEM 500 MG/NS 100 ML IVPB IV SCH ×6 (02:10→18:33)
[2022-11-20] MEDS: RT-ALBUTEROL HFA 8.5 GM INHALER IH SCH ×6 (02:52→22:09)
[2022-11-20 03:35] VITALS: BP 131/62
[2022-11-20 05:47] LABS: BASOPHILS % (AUTO) 0 % (0-10); EOSINOPHILS # (AUTO) 0.2 10^3/uL (0.0-0.3); EOSINOPHILS % (AUTO) 3 % (0-10); HEMATOCRIT 27 % (35-52); HEMOGLOBIN 8.2 g/dL (11.5-16.0); LYMPHOCYTES # (AUTO) 1.4 10^3/uL (1.0-4.0); LYMPHOCYTES % (AUTO) 25 % (12-44); MEAN CORPUSCULAR HEMOGLOBIN 28 pg (25-34); MEAN CORPUSCULAR HGB CONC 30 g/dL (32-36); MEAN CORPUSCULAR VOLUME 91 fL (80-99); MEAN PLATELET VOLUME 10.2 fL (9.0-12.2); MONOCYTES # (AUTO) 0.7 10^3/uL (0.0-1.0); MONOCYTES % (AUTO) 14 % (0-12); NEUTROPHILS # (AUTO) 3.2 10^3/uL (1.8-7.8); NEUTROPHILS % (AUTO) 58 % (42-75); PLATELET COUNT 163 10^3/uL (130-400); WHITE BLOOD COUNT 5.5 10^3/uL (4.3-11.0)
[2022-11-20 06:00] LABS: ALBUMIN 2.9 GM/DL (3.2-4.5); BILIRUBIN,TOTAL 0.2 MG/DL (0.1-1.0); CALCIUM 8.3 MG/DL (8.5-10.1); CREATININE SERUM 1.29 MG/DL (0.60-1.30); POTASSIUM 3.7 MMOL/L (3.6-5.0); TOTAL PROTEIN 5.5 GM/DL (6.4-8.2)
[2022-11-20] MEDS: inSUlin ASPART (NovoLOG) 1 UNIT/0.01 ML (CHARGE PER UNIT) SC SCH ×4 (06:08→20:05)
--- NOTE | 2022-11-20 07:06 | Progress Note - Hospitalist ---
Subjective HPI/CC On Admission Date Seen by Provider: Nov 20, 2022 Time Seen by Provider: 11:00 Chief complaint: COVID-pneumonia HPI: This is a 67-year-old female due to multiple hospital stays has a past medical history of severe COPD who presented to the ER with shortness of breath and weakness have COVID-pneumonia with acute on chronic respiratory failure. Currently she is doing much better so we will move down to fourth floor. She remains on isolation. Home meds will be reviewed and restarted. Subjective/Events-last exam Patient doing a little better Has no new issues Wants to go home tomorrow Breathing better Lungs are clear Review of Systems General: Fatigue, Malaise Pulmonary: Dyspnea, Cough Focused Exam Lactate Level 11/18/22 17:37: Lactic Acid Level 1.30 Time of Focused Exam: 18:00 Objective Exam Vital Signs Vital Signs Date Time Temp Pulse Resp B/P (MAP) Pulse Ox O2 Delivery O2 Flow Rate FiO2 11/20/22 15:21 36.8 62 18 143/64 (90) 95 Nasal Cannula 2.00 Capillary Refill : Less Than 3 Seconds General Appearance: No Apparent Distress, WD/WN Respiratory: No Accessory Muscle Use, No Respiratory Distress, Decreased Breath Sounds Cardiovascular: Regular Rate, Rhythm Neurologic/Psychiatric: Alert, Oriented x3, No Motor/Sensory Deficits, Normal Mood/Affect Results/Procedures Lab Laboratory Tests 11/20/22 05:05 Patient resulted labs reviewed. Assessment/Plan Assessment and Plan Assess & Plan/Chief Complaint Assessment: Acute on chronic respiratory failure COVID-pneumonia Bacterial pneumonia RAVEN noncompliant with CPAP COPD Obesity Hypertension Hyperlipidemia Plan: Supportive detention meds Discharge home tomorrow KASSIDY IRELAND DO Nov 20, 2022 07:06
[2022-11-20 08:09] VITALS: BP 126/59
--- NOTE | 2022-11-20 09:51 | Cardiology Progress Note ---
Subjective Date Seen by Provider: Nov 20, 2022 Time Seen by Provider: 09:51 Subjective/Events-last exam Patient was seen at bedside laying down comfortably, no new complaint Focused Exam Lactate Level 11/18/22 17:37: Lactic Acid Level 1.30 Time of Focused Exam: 18:00 Objective-Cardiology Exam Last Set of Vital Signs Vital Signs 11/20/22 08:09 Temp 36.9 Pulse 65 Resp 18 B/P (MAP) 126/59 (81) Pulse Ox 94 O2 Delivery Nasal Cannula O2 Flow Rate 2.00 I&O Intake and Output 11/20/22 00:00 Intake Total 1480 ml Output Total 2950 ml Balance -1470 ml Intake Oral 1480 ml Output Urine Total 2950 ml General: Alert, Oriented X3, Cooperative HEENT: Atraumatic Heart: Regular Rate Abdomen: No Tenderness Extremities: No Clubbing Skin: No Rashes Neuro: Normal Speech Psych/Mental Status: Mental Status NL, Mood NL Results Lab Laboratory Tests 11/20/22 05:05 A/P-Cardiology Admission Diagnosis COVID-19 pneumonia Fever Coronary artery disease Hypertension Assessment/Plan Recurrent pneumonia Currently diagnosed COVID-19 positive Admitted and managed by primary care physician Chest pain, nonspecific etiology, atypical in presentation No further episodes of chest pain. Mild elevation in troponin, repeat troponin was normal. Probably variant of normal finding. Coronary artery disease History of stent to LAD using 3.012 mm Ion stent to the LAD. Cardiac catheterization done in July 2015 revealed patent stent in the LAD with otherwise nonobstructive disease. Cardiac catheterization done July 12, 2018 revealed patent stent in the mid LAD with mild disease at the mid to distal LAD nonobstructive disease, otherwise mild coronary artery disease Acute myocardial infarction on June 13, 2021 underwent emergency cardiac catheterization with Dr. Haque, patent stent in the mid LAD however there was severe disease between the 2 stents of the distal LAD, underwent drug-eluting stent placement Skypoint stent 3.5 x 15 mm with excellent results. Cardiac catheterization was carried out on January 27, 2022 showing moderate to severe proximal LAD stenosis with subtotal occlusion within the stent in the proximal LAD, unsuccessful balloon angioplasty then stenting of the LAD, intervention was noted with Dr. Haque with excellent results. Mild disease otherwise. Cardiac catheterization performed October 18, 2022 which showed results of 95% in-s tent restenosis in the proximal and mid LAD. Successful balloon angioplasty with no residual stenosis. Dominant RCA with no obstructive disease, very minimal left main coronary artery stenosis. Mildly elevated left ventricular end- diastolic pressure. Continue on aspirin and Plavix, continue to monitor Anemia, Monitor H&H Acute on chronic renal insufficiency, Continue to monitor renal function Congestive heart failure, chronic left ventricular diastolic dysfunction. Compensated at this point. Continue to monitor Sick Sinus Syndrom with Questionable episode of paroxysmal atrial fibrillation during hospitalization, had an EKG showing sinus rhythm with frequent PACs, no definite atrial fibrillation noted during the hospitalization. EKG was done in the office showing sinus bradycardia with a heart rate 43 with escape junctional rhythm. Underwent Dual chamber permanent pacemaker implantation on 07/08/21, [employer] Tiny XT DR ZAVALA. Intolerance to aggressive anticoagulation due to anemia and GI bleed. Hypertension, monitor blood pressure Hyperlipidemia, monitor lipids Mild bilateral carotid stenosis, ultrasound was done in May 2022, continue to monitor COPD, oxygen dependent, had seen Dr. Perkins in the past, follows with primary care physician. History of deep venous thrombosis, Xarelto was discontinued by Dr. 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 Obesity. BMI is 51. Patient was educated again on weight loss. History of tonsillectomy, colonoscopy. DNC procedure. Skin cancer of face- patient to undergo excision to be done by ALLY Salcedo MD Nov 20, 2022 09:51
[2022-11-20] MEDS: ASPIRIN E.C. 81 MG (ECOTRIN) TAB PO SCH (10:16)
[2022-11-20] MEDS: DOCUSATE SODIUM 100 MG (COLACE) CAP PO SCH (10:16)
[2022-11-20] MEDS: RT-ALBUTEROL HFA 8.5 GM INHALER IH PRN (10:42)
[2022-11-20] MEDS: SENNOSIDES 8.6 MG (SENOKOT) TAB PO SCH ×2 (11:55→20:16)
[2022-11-20 12:06] VITALS: BP 122/55
[2022-11-20] MEDS: VANCOMYCIN 1500MG/300ML PREMIX IV SCH (13:27)
[2022-11-20] MEDS: ENOXAPARIN 40 MG/0.4 ML (LOVENOX) SYR SC SCH (13:27)
[2022-11-20 15:21] VITALS: BP 143/64
[2022-11-20] MEDS ORDERED: NITROGLYCERIN 0.4 MG SL TABS BTL 25'S SL PRN (16:00)
[2022-11-20] MEDS ORDERED: oxyCODONE/APAP 7.5-325 MG (PERCOCET 7.5) TABLET PO PRN (16:00)
[2022-11-20 20:38] VITALS: BP 149/66
[2022-11-20] MEDS ORDERED: LATANOPROST 0.005% (XALATAN) OPHTH SOLN 2.5 ML OU SCH (21:00)
[2022-11-20] MEDS ORDERED: NON-FORMULARY MEDICATION 1 EA EA (Bimatoprost (Lumigan) 1 DROP) OU SCH (21:00)
[2022-11-21] VITALS: BP 108/52
[2022-11-21] MEDS: MEROPENEM 500 MG/NS 100 ML IVPB IV SCH ×4 (01:57→09:51)
[2022-11-21] MEDS: RT-ALBUTEROL HFA 8.5 GM INHALER IH SCH ×2 (02:49→06:52)
[2022-11-21 04:10] VITALS: BP 120/58
[2022-11-21] MEDS: inSUlin ASPART (NovoLOG) 1 UNIT/0.01 ML (CHARGE PER UNIT) SC SCH ×2 (06:10→09:51)
[2022-11-21] MEDS ORDERED: LEVOTHYROXINE 150 MCG (LEVOTHROID) TAB PO SCH ×2 (06:30→09:00)
[2022-11-21 06:39] LABS: BASOPHILS % (AUTO) 0 % (0-10); EOSINOPHILS # (AUTO) 0.4 10^3/uL (0.0-0.3); EOSINOPHILS % (AUTO) 8 % (0-10); HEMATOCRIT 28 % (35-52); HEMOGLOBIN 8.4 g/dL (11.5-16.0); LYMPHOCYTES # (AUTO) 1.4 10^3/uL (1.0-4.0); LYMPHOCYTES % (AUTO) 28 % (12-44); MEAN CORPUSCULAR HEMOGLOBIN 27 pg (25-34); MEAN CORPUSCULAR HGB CONC 30 g/dL (32-36); MEAN CORPUSCULAR VOLUME 92 fL (80-99); MEAN PLATELET VOLUME 9.8 fL (9.0-12.2); MONOCYTES # (AUTO) 0.5 10^3/uL (0.0-1.0); MONOCYTES % (AUTO) 11 % (0-12); NEUTROPHILS # (AUTO) 2.6 10^3/uL (1.8-7.8); NEUTROPHILS % (AUTO) 53 % (42-75); PLATELET COUNT 155 10^3/uL (130-400)
[2022-11-21] MEDS ORDERED: FUROSEMIDE 20 MG (LASIX) TAB PO SCH ×2 (07:00→09:00)
[2022-11-21 07:08] LABS: ALBUMIN 2.9 GM/DL (3.2-4.5); BILIRUBIN,TOTAL 0.3 MG/DL (0.1-1.0); CALCIUM 8.6 MG/DL (8.5-10.1); CREATININE SERUM 1.16 MG/DL (0.60-1.30); POTASSIUM 3.7 MMOL/L (3.6-5.0); TOTAL PROTEIN 5.7 GM/DL (6.4-8.2)
[2022-11-21 07:30] VITALS: BP 129/61
[2022-11-21] MEDS ORDERED: KCL 10 MEQ TAB (MICRO K) PO SCH (08:00)
[2022-11-21] MEDS ORDERED: ALLOPURINOL 100 MG (ZYLOPRIM) TAB PO SCH (09:00)
[2022-11-21] MEDS ORDERED: NON-FORMULARY MEDICATION 1 EA EA (Multivits-Min/Iron/FA/Lutein (Centrum Silver Women Table PO SCH (09:00)
[2022-11-21] MEDS ORDERED: CLOPIDOGREL 75 MG (PLAVIX) TABLET PO SCH (09:00)
[2022-11-21] MEDS ORDERED: ASPIRIN E.C. 81 MG (ECOTRIN) TAB PO SCH (09:00)
[2022-11-21] MEDS ORDERED: DOCUSATE SODIUM 100 MG (COLACE) CAP PO SCH (09:00)
[2022-11-21] MEDS ORDERED: LOSARTAN 25 MG (COZAAR) TAB PO SCH (09:00)
[2022-11-21] MEDS ORDERED: ISOSORBIDE MONONITRATE 30 MG (IMDUR) TAB PO SCH (09:00)
[2022-11-21] MEDS: ASPIRIN E.C. 81 MG (ECOTRIN) TAB PO SCH (09:29)
[2022-11-21] MEDS: SENNOSIDES 8.6 MG (SENOKOT) TAB PO SCH (09:31)
[2022-11-21] MEDS ORDERED: AMOX1TAB12 PO (10:05)
--- NOTE | 2022-11-21 10:06 | Discharge Summary ---
Discharge Summary Hospital Course Was the Problem List Reviewed?: Yes Problems/Dx: (1) COVID-19 virus infection Status: Acute (2) Shortness of breath Status: Chronic (3) Chronic respiratory failure Status: Acute (4) Acute and chronic respiratory failure with hypoxia Status: Acute Hospital Course Date of Admission: Nov 18, 2022 at 19:54 Admission Diagnosis : Family Physician/Provider: [place] [place] Date of Discharge: 11/21/22 Discharge Diagnosis: [ ] Hospital Course: Hospital course: Patient had an uneventful hospital course after she was admitted for shortness of breath and acute on chronic respiratory failure and was noted to have COVID-19 pneumonia. Bacterial pneumonia treatment was initiated with meropenem. Overall poor prognosis given the severity of COPD and lung disease but she was deemed stable for discharge in improved condition. A ntibiotics were transitioned to p.o. Labs and Pending Lab Test: Laboratory Tests 11/21/22 06:24: White Blood Count 5.0, Red Blood Count 3.09L, Hemoglobin 8.4L, Hematocrit 28L, Mean Corpuscular Volume 92, Mean Corpuscular Hemoglobin 27, Mean Corpuscular Hemoglobin Concent 30L, Red Cell Distribution Width 17.6H, Platelet Count 155, Mean Platelet Volume 9.8, Immature Granulocyte % (Auto) 0, Neutrophils (%) (Auto) 53, Lymphocytes (%) (Auto) 28, Monocytes (%) (Auto) 11, Eosinophils (%) (Auto) 8, Basophils (%) (Auto) 0, Neutrophils # (Auto) 2.6, Lymphocytes # (Auto) 1.4, Monocytes # (Auto) 0.5, Eosinophils # (Auto) 0.4H, Basophils # (Auto) 0.0, Immature Granulocyte # (Auto) 0.0, Sodium Level 140, Potassium Level 3.7, Chloride Level 105, Carbon Dioxide Level 27, Anion Gap 8, Blood Urea Nitrogen 26H, Creatinine 1.16, Estimat Glomerular Filtration Rate 51, BUN/Creatinine Ratio 22, Glucose Level 97, Calcium Level 8.6, Corrected Calcium 9.5, Total Bilirubin 0.3, Aspartate Amino Transf (AST/SGOT) 18, Alanine Aminotransferase (ALT/SGPT) 15, Alkaline Phosphatase 89, Total Protein 5.7L, Albumin 2.9L Microbiology 11/18/22 Urine Culture - Final, Complete Mixed Bacterial Christine 11/18/22 Blood Culture - Preliminary, Resulted No growth Home Meds Active Amox Tr-K Clv 875-125 mg Tab (Amoxicillin/Potassium Clav) 875 Mg-125 Mg Tablet 1 Each PO BID Reported Levothyroxine Sodium 150 Mcg Tablet 150 Mcg PO DAILY Oxycodon-Acetaminophen 7.5-325 (Oxycodone HCl/Acetaminophen) 7.5 Mg-325 Mg Tablet 1 Ea PO QID PRN Clopidogrel (Clopidogrel Bisulfate) 75 Mg Tablet 75 Mg PO DAILY Losartan Potassium 25 Mg Tablet 25 Mg PO DAILY Nitroglycerin 0.4 Mg Tab.subl 0.4 Mg SL UD PRN Lumigan (Bimatoprost) 0.01 % Drops 1 Drop OU HS LAST FILLED 05-05-2022 #07/07 DAY SUPPLY Isosorbide Mononitrate ER (Isosorbide Mononitrate) 30 Mg Tab.er.24h 30 Mg PO DAILY Atorvastatin Calcium 80 Mg Tablet 80 Mg PO HS Aspirin EC (Aspirin) 81 Mg Tablet.dr 81 Mg PO DAILY Carvedilol 3.125 Mg Tablet 3.125 Mg PO BID Stool Softener (Docusate Sodium) 100 Mg Capsule 200 Mg PO DAILY TAKES 2 CAPSULES Spiriva (Tiotropium [place]) 18 Mcg Aerp 2 Puff IH 1400 Centrum Silver Women Tablet (Multivits-Min/Iron/FA/Lutein) 1 Each Tablet 1 Each PO DAILY Furosemide 20 Mg Tablet 20 Mg PO DAILY Allopurinol 100 Mg Tablet 100 Mg PO DAILY Potassium Chloride 10 Meq Tab.er.prt 10 Meq PO DAILY Assessment/Pt Instructions PCP 1 week Discharge Planning: <30 minutes discharge planning Discharge Instructions Discharge Diet: No Restrictions Discharge Physical Examination Vital Signs Vital Signs Date Time Temp Pulse Resp B/P (MAP) Pulse Ox O2 Delivery O2 Flow Rate FiO2 11/21/22 08:00 91 Nasal Cannula 2.00 11/21/22 07:30 36.4 60 16 129/61 (83) Respiratory: Lungs Clear, Normal Breath Sounds Allergies: Coded Allergies: ceftriaxone (Verified Allergy, Unknown, pt has received Zosyn w/o issue, 05/09/19) ibuprofen (Verified Allergy, Unknown, PT TAKES ASA AT HOME, 08/02/17) PER MED REC diazepam (Verified Adverse Reaction, Severe, 12/04/18) Discharge Summary Date of Admission Nov 18, 2022 at 19:54 Date of Discharge Discharge Date: Nov 21, 2022 Admission Diagnosis Assessment: Acute on chronic respiratory failure COVID-pneumonia Bacterial pneumonia RAVEN noncompliant with CPAP COPD Obesity Hypertension Hyperlipidemia Plan: Supportive alf meds Moved to fourth floor Discharge Diagnosis Assessment: Acute on chronic respiratory failure COVID-pneumonia Bacterial pneumonia RAVEN noncompliant with CPAP COPD Obesity Hypertension Hyperlipidemia Plan: Supportive alf meds Discharge home tomorrow KASSIDY IRELAND DO Nov 21, 2022 10:06
[2022-11-21 10:19] VITALS: BP 129/61
[2022-11-21] MEDS ORDERED: RT-ALBUTEROL HFA 8.5 GM INHALER IH SCH (10:30)
--- NOTE | 2022-11-21 10:43 | Cardiology Progress Note ---
Subjective Date Seen by Provider: Nov 21, 2022 Time Seen by Provider: 10:43 Subjective/Events-last exam Patient was seen at bedside, sitting comfortably. No new complaint Focused Exam Lactate Level 11/18/22 17:37: Lactic Acid Level 1.30 Time of Focused Exam: 18:00 Objective-Cardiology Exam Last Set of Vital Signs Vital Signs 11/21/22 11/21/22 11/21/22 07:30 08:00 10:19 Temp 36.4 Pulse 60 Resp 16 B/P (MAP) 129/61 (83) Pulse Ox 91 O2 Delivery Nasal Cannula O2 Flow Rate 2.00 I&O Intake and Output 11/21/22 00:00 Intake Total 2190 ml Output Total 2225 ml Balance -35 ml Intake Oral 2190 ml Output Urine Total 2225 ml # Voids 2 # Bowel Movements 1 General: Alert, Oriented X3, Cooperative HEENT: Atraumatic Heart: Regular Rate Abdomen: No Tenderness Extremities: No Clubbing Skin: No Rashes Neuro: Normal Speech Psych/Mental Status: Mental Status NL, Mood NL Results Lab Laboratory Tests 11/21/22 06:24 A/P-Cardiology Admission Diagnosis COVID-19 pneumonia Fever Coronary artery disease Hypertension Assessment/Plan Recurrent pneumonia Currently diagnosed COVID-19 positive Admitted and managed by primary care physician Chest pain, nonspecific etiology, atypical in presentation No further episodes of chest pain. Okay for discharge from cardiology standpoint Mild elevation in troponin, repeat troponin was normal. Probably variant of normal finding. Coronary artery disease History of stent to LAD using 3.012 mm Ion stent to the LAD. Cardiac catheterization done in July 2015 revealed patent stent in the LAD with otherwise nonobstructive disease. Cardiac catheterization done July 12, 2018 revealed patent stent in the mid LAD with mild disease at the mid to distal LAD nonobstructive disease, otherwise mild coronary artery disease Acute myocardial infarction on June 13, 2021 underwent emergency cardiac ca theterization with Dr. Haque, patent stent in the mid LAD however there was severe disease between the 2 stents of the distal LAD, underwent drug-eluting stent placement Skypoint stent 3.5 x 15 mm with excellent results. Cardiac catheterization was carried out on January 27, 2022 showing moderate to severe proximal LAD stenosis with subtotal occlusion within the stent in the proximal LAD, unsuccessful balloon angioplasty then stenting of the LAD, intervention was noted with Dr. Haque with excellent results. Mild disease otherwise. Cardiac catheterization performed October 18, 2022 which showed results of 95% in- stent restenosis in the proximal and mid LAD. Successful balloon angioplasty with no residual stenosis. Dominant RCA with no obstructive disease, very minimal left main coronary artery stenosis. Mildly elevated left ventricular end-diastolic pressure. Continue on aspirin and Plavix, continue to monitor Anemia, Monitor H&H Acute on chronic renal insufficiency, Continue to monitor renal function Congestive heart failure, chronic left ventricular diastolic dysfunction. Compensated at this point. Continue to monitor Sick Sinus Syndrom with Questionable episode of paroxysmal atrial fibrillation during hospitalization, had an EKG showing sinus rhythm with frequent PACs, no definite atrial fibrillation noted during the hospitalization. EKG was done in the office showing sinus bradycardia with a heart rate 43 with escape junctional rhythm. Underwent Dual chamber permanent pacemaker implantation on 07/08/21, [employer] [place] XT DR ZAVALA. Intolerance to aggressive anticoagulation due to anemia and GI bleed. Hypertension, monitor blood pressure Hyperlipidemia, monitor lipids Mild bilateral carotid stenosis, ultrasound was done in May 2022, continue to monitor COPD, oxygen dependent, had seen Dr. Perkins in the past, follows with primary care physician. History of deep venous thrombosis, Xarelto was discontinued by Dr. 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 Obesity. BMI is 51. Patient was educated again on weight loss. History of tonsillectomy, colonoscopy. DNC procedure. Skin cancer of face-patie nt to undergo excision to be done by ALLY Salcedo MD Nov 21, 2022 10:43
[2022-11-21] MEDS ORDERED: TROUGH ORDER-PHARMACY XX ONE (11:00)
[2022-11-21 12:00] VITALS: BP 111/56
[2022-11-21] MEDS: ENOXAPARIN 40 MG/0.4 ML (LOVENOX) SYR SC SCH (12:05)
[2022-11-21] MEDS: VANCOMYCIN 1500MG/300ML PREMIX IV SCH (12:05)
[2022-11-21 13:30] VITALS: BP 111/56
[2022-11-21] MEDS ORDERED: UMECLIDINIUM BROMIDE (INCRUSE ELLIPTA) 7'S IH SCH (14:00)
[2022-11-22] MEDS ORDERED: UMECLIDINIUM BROMIDE (INCRUSE ELLIPTA) 7'S IH SCH (08:00)
--- NOTE | 2022-11-23 02:22 | Physician Query Clarification ---
PQ-Uncertain Diagnosis Admission/Discharge Admission Date: Nov 18, 2022 at 19:54 Discharge Date: Nov 21, 2022 at 13:30 The medical record reflects the following clinical scenario: History/Risk Factors: 67 y/o female patient admitted for COVID pneumonia, sepsis was documented in record. Clinical Findings: Temp- 38.9, wbc-8,4, lactic acid- 1.30, pulse-61 . Treatment: IV antibiotics. Question: Is sepsis a clinically valid diagnosis? Sepsis was documented in the ER provider notes, 11/18 with no further documentation in the medical record. Please document a response in Progress Note or Discharge Summary. 1. Yes, clinically valid, condition resolved. 2. No, condition ruled out. 3. Other, with explanation of clinical findings. 4. Undetermined, no explanation for clinical findings. PHYSICIAN RESPONSE Diagnosis clinically valid: No, conditon ruled out In responding to this query, please exercise your independent professional judgment. The purpose of this communication is to more accurately reflect the complexity of your patients condition. The fact that a question is asked does not imply that any particular answer is desired or expected. Thank you for your timely response to this clarification. Requestors name: [ ] Phone # [ ] THIS PHYSICIAN QUERY FORM IS A PERMANENT PART OF THE MEDICAL RECORD FELICITA ROCHA Nov 23, 2022 02:21 KASSIDY IRELAND DO Nov 23, 2022 05:49
== END 2022-11-21 13:30 | disposition home or self-care (01) | DRG 177 ==
LOC: EDUNIT# 16:46 → ER 16:48 → CSD 19:54 → 4TH 11-19 13:15
PROVIDERS: ADMIT Family Medicine; ATTEND Internal Medicine
PROC: 8E0ZXY6 Isolation (ICD-10-PCS; principal; 2022-11-18)
DX: U07.1 COVID-19 (principal); J12.82 Pneumonia due to coronavirus disease 2019; J15.9 Unspecified bacterial pneumonia; J96.21 Acute and chronic respiratory failure with hypoxia; E66.2 Morbid (severe) obesity with alveolar hypoventilation; I48.92 Unspecified atrial flutter; Z68.43 Body mass index [BMI] 50.0-59.9, adult; I13.0 Hypertensive heart and chronic kidney disease with heart failure and stage 1 through stage 4 chronic kidney disease, or unspecified chronic kidney disease; I50.32 Chronic diastolic (congestive) heart failure; Z99.81 Dependence on supplemental oxygen; Z79.82 Long term (current) use of aspirin; Z79.899 Other long term (current) drug therapy; Z95.5 Presence of coronary angioplasty implant and graft; Z95.0 Presence of cardiac pacemaker; I48.91 Unspecified atrial fibrillation; I25.10 Atherosclerotic heart disease of native coronary artery without angina pectoris; E78.00 Pure hypercholesterolemia, unspecified; I25.2 Old myocardial infarction; Z86.718 Personal history of other venous thrombosis and embolism; K57.90 Diverticulosis of intestine, part unspecified, without perforation or abscess without bleeding; M19.90 Unspecified osteoarthritis, unspecified site; G89.29 Other chronic pain; M54.9 Dorsalgia, unspecified; H40.9 Unspecified glaucoma; E03.9 Hypothyroidism, unspecified; D63.8 Anemia in other chronic diseases classified elsewhere; Z91.199 Patient's noncompliance with other medical treatment and regimen due to unspecified reason; I65.23 Occlusion and stenosis of bilateral carotid arteries; I49.5 Sick sinus syndrome; N18.9 Chronic kidney disease, unspecified
CPT/HCPCS: 36415; 51702; 71045; 80053; 80061; 81000; 82150; 83605; 83690; 83735; 83874; 83880; 84484; 85025; 85610; 85730; 87040; 87088; 87636; 93005; 93041; 94640; 94760; 96361; 96365; 96375

== ENCOUNTER 2023-03-18 13:05 | Outpatient (CLI) | payer MEDICAID ==
[~2023-03-18] VITALS: Ht 157.5 cm; Wt 109.7 kg
[~2023-03-18 13:05] MED LIST changes: +APIX5TAB PO; +IRON50VI IJ; +LEVO150T6 PO; +LOSA-414 PO; -LOSA25TA2 PO; +SOTA80TA62 PO
[2023-03-18] MEDS ORDERED: IRON DEXTRAN 25 MG/NS 6.25 ML TOTAL VOLUME IV NR ×3 (13:45)
[2023-03-18] MEDS ORDERED: IRON DEXTRAN 1,000 MG/NS 250 ML IVPB IV ONE ×2 (14:00)
[2023-03-18 15:15] VITALS: BP 119/57
== END 2023-03-18 15:15 ==
LOC: SDC 13:05
PROVIDERS: ATTEND Internal Medicine
DX: D50.9 Iron deficiency anemia, unspecified (principal); I48.0 Paroxysmal atrial fibrillation; I49.5 Sick sinus syndrome; I25.10 Atherosclerotic heart disease of native coronary artery without angina pectoris; I10 Essential (primary) hypertension; E78.5 Hyperlipidemia, unspecified
CPT/HCPCS: 96365

== ENCOUNTER 2023-05-16 08:33 | Observation (INO) | payer MEDICAID ==
[~2023-05-16] VITALS: Ht 157.5 cm; Wt 102.3 kg
[2023-05-16] MEDS ORDERED: PHARMACY TO DOSE IV ONE (09:30)
--- NOTE | 2023-05-16 09:32 | Cardiology History & Physical ---
HPI-Cardiology Cardiology Consultation Date of Consultation 05/16/23 Date of Admission Time Seen by Provider: 09:27 Indication: Atrial fibrillation HPI 68-year-old lady with history of paroxysmal atrial fibrillation, coronary artery disease and congestive heart failure, tolerating sotalol 80 mg daily, pacemaker interrogation showed multiple episode of paroxysmal atrial fibrillat ion/persistent atrial fibrillation We discussed the management plan I recommended escalating the dose to 120 mg twice daily and evaluate tolerance and response PMH-Cardiology Immunizations Up To Date Tetanus Booster (DTap): Unknown Date of Pneumonia Vaccine: Mar 13, 2013 Date of Influenza Vaccine: May 13, 2021 Seasonal Allergies Seasonal Allergies: No Surgeries Yes (COLON POLYP REMOVAL, MULTIPLE HERNIA REPAIRS, D&C) Abdominal, Adenoidectomy, Eye Surgery, Gall Bladder, Tonsillectomy, Tubal Li gation Respiratory Yes (CHRONIC DYSPNEA--USES O2 AT HOME, ESPECIALLY AT NIGHT) Sleep Apnea Cardiovascular Yes (TACHYCARDIA, STENTS X 1, CHF; PACEMAKER; ) Heart Attack, Chronic Edema/Swelling, Hypertension, Coronary Artery Disease Neurological No 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 System Hx 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 Disorders: No Sexually Transmitted Disease: No HIV/AIDS: No Female 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 Disorders: Denies Tubal Ligation, Menopausal Genitourinary Yes UTI-Chronic Gastrointestinal Yes Abdominal Hernia, Diverticulosis, Polyps Musculoskeletal Yes (CHRONIC GENERALIZED PAIN--NARCOTIC-DEPENDENT;POOR MOBILITY-WC / BED BOUND) Degenerate Disk Disease, Arthritis, Chronic Back Pain Endocrine Yes (MORBID OBESITY) Hypothyroidsim HEENT Yes Cataract, Glaucoma Loss of Vision: Denies Hearing Impairment: Denies Cancer Yes (SQUAMOUS CELL SKIN CANCER RIGHT CHEEK 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) Skin, Colon Did You Recieve Any Treatments: Yes Type of Treatment: Surgical Intervention Psychosocial No Integumentary Yes (CELLULITIS; SKIN CANCER; BEDBUGS) Eczema Blood Transfusions Yes (CHRONIC ANEMIA) Adverse Rxn to Transfusion: No (HAS HAD BLOOD WITH NO REACTION) Other PMHx past medical history as discussed below Social History Patient Social History Marrital Status: single Employed/Student: retired Dip or chew tobacco?: No Family Hx Significant Family History: Heart Disease, Cancer, CAD Under 55 Years Old Family History: Cancer 03 MOTHER, Onset:40's - 50 Family history: Cardiovascular disease 03 FATHER, Onset:40's - 50 03 MOTHER, Onset:30's - 40 Myocardial infarction 03 MOTHER, Onset:30's - 40 ROS-Cardiology Review of Systems General: No Chills, No Night Sweats, No Fatigue, No Malaise, No Appetite HEENT: No Head Aches, No Visual Changes, No Eye Pain, No Ear Pain, No Dysphasia, No Sinus Congestion, No Post Nasal Drip, No Sore Throat Pulmonary: Dyspnea; No Cough, No Pleuritic Chest Pain Cardiovascular: No: Chest Pain, Palpitations, Orthopnea, Paroxysmal Noc. Dyspnea, Edema, Lt Headedness Gastrointestinal: No: Nausea, Vomiting, Abdominal Pain, Diarrhea, Constipation, Melena, Hematochezia Genitourinary: No Dysuria, No Frequency, No Incontinence, No Hematuria, No Retention Musculoskeletal: No: neck pain, shoulder pain, arm pain, back pain, hand pain, leg pain, foot pain Neurological: No: Weakness, Numbness, Incoordination, Change in speech, Confusion, Seizures Home Medications & Allergies Allergies: Coded Allergies: ceftriaxone (Verified Allergy, Unknown, pt has received Zosyn w/o issue, 05/09/19) ibuprofen (Verified Allergy, Unknown, PT TAKES ASA AT HOME, 08/02/17) PER MED REC diazepam (Verified Adverse Reaction, Severe, 12/04/18) Home Medication List Reviewed: Yes Exam-Cardiology Vital Signs Vital Signs Date Time Temp Pulse Resp B/P (MAP) Pulse Ox O2 Delivery O2 Flow Rate FiO2 05/16/23 09:02 Nasal Cannula 2.00 05/16/23 09:00 60 26 90 Exam General Appearance: Alert, Oriented X3, Cooperative, No Acute Distress HEENT: Atraumatic, PERRLA Respiratory: Clear to Auscultation, Normal Air Movement Cardiovascular: Regular Rate, Normal S1, Normal S2, No Murmurs Abdominal: Normal Bowel Sounds, Soft, No Tenderness, No Hepatosplenomegaly, No Masses Extremities: No Clubbing, No Cyanosis, No Edema, Normal Pulses, No Tenderness/Swelling Skin: No Rashes, No Breakdown, No Significant Lesion Neuro: Normal Gait, Normal Speech, Strength at 5/5 X4 Ext, Normal Tone, Sensation Intact Psych/Mental Status: Mental Status NL, Mood NL Results Labs Labs Labs are pending A/P-Cardiology Admission Diagnosis Paroxysmal atrial fibrillation Coronary artery disease Congestive heart failure, chronic compensated left ventricular systolic dysfunction, ischemic cardiomyopathy Hypertension Hyperlipidemia Admission Status: Inpatient Order (span 2 midnights) Reason for Inpatient Admission: Atrial fibrillation with sotalol escalation drip Assessment/Plan Chest pain, nonspecific etiology, patient had a few episodes of chest pain after having a heart catheterization, feeling better at this time, no further episodes of chest pain Coronary artery disease, History of stent to LAD using 3.0?12 mm Ion stent to the LAD. Cardiac catheterization done in July 2015 revealed patent stent in the LAD with otherwise nonobstructive disease. Cardiac catheterization done July 12, 2018 revealed patent stent in the mid LAD with mild disease at the mid to distal LAD nonobstructive disease, otherwise mild coronary artery disease Acute myocardial infarction on June 13, 2021 underwent emergency cardiac catheterization with Dr. Haque, patent stent in the mid LAD however there was severe disease between the 2 stents of the distal LAD, underwent drug-eluting stent placement Skypoint stent 3.5 x 15 mm with excellent results. Maintained on ASA and Brilinta Cardiac catheterization was carried out on January 27, 2022 showing moderate to severe proximal LAD stenosis with subtotal occlusion within the stent in the proximal LAD, unsuccessful balloon angioplasty then stenting of the LAD, intervention was noted with Dr. Haque with excellent results. Mild disease o therwise. Most recent cardiac catherization done October 2022 showing 95% in-stent restenosis in the proximal and mid LAD with successful balloon angioplasty with no residual stenosis using 3 x 20 noncompliant balloon. Dominant right coronary artery with no obstructive disease very minimal ostial left main coronary artery stenosis Maintained on ASA and Eliquis. Congestive heart failure status post episode of acute left ventricular diastolic dysfunction. Currently compensated left ventricular systolic function Echocardiogram done in July 2019 showing normal left ventricular size, EF 50-55 percent, mildly dilated left atrium, mild to moderate aortic valve stenosis with a peak gradient 29 mmHg mean gradient 50 mmHg, valve area 1.7 cm, PA pressure 40 mmHg. Continue to monitor 2D echo was done on October 20, 2022 showing normal left ventricular size, ER 45- 50%, grade 1 diastolic dysfunction, moderate dilated left atrium. PA 45-50mmHg. Sick Sinus Syndrom/PAF, Underwent Dual chamber permanent pacemaker implantation on 07/08/21, [employer] Tiny XT DR ZAVALA. Pacemaker interrogation was done in February 2023 showing good sensing and capture activity. Patient was started on sotalol 80 mg twice daily and tolerating it well. Appears to be back in atrial fibrillation again while on sotalol. Patient is admitted today for loading with sotalol and with escalation to 120 mg daily History of Intolerance to aggressive anticoagulation due to anemia and GI bleed. Hypertension, controlled. Continue home medications Hyperlipidemia, Lipitor was increased back to 80 mg daily after myocardial infarction in June 2021, lipid profile was done in November 2022 with total cholesterol 206, HDL 23, LDL 37, triglyceride 206. We discussed limiting carbohydrate intake Mild bilateral carotid stenosis, ultrasound was done in May 2022. COPD, oxygen dependent, had seen Dr. Perkins in the past, follows with primary care physician. History of deep venous thrombosis, Xarelto was discontinued by Dr. Ramesh due to significant anemia Hypothyroidism, continue to monitor thyroid function test. 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 Obesity. BMI is 51. Patient was educated again on weight loss. History of tonsillectomy, colonoscopy. DNC procedure. Skin cancer of face- patient to undergo excision to be done by ALLY Salcedo MD May 16, 2023 09:32
[2023-05-16 09:44] LABS: POTASSIUM 3.2 MMOL/L (3.6-5.0)
[2023-05-16 09:45] LABS: CALCIUM 9.1 MG/DL (8.5-10.1)
[2023-05-16 09:49] LABS: CREATININE SERUM 1.14 MG/DL (0.60-1.30)
[2023-05-16 09:51] LABS: MAGNESIUM 1.8 MG/DL (1.6-2.4)
[2023-05-16] MEDS ORDERED: POTASSIUM CL 10MEQ/50ML IVPB 200 ML IV ONE (09:54)
[2023-05-16] MEDS ORDERED: POTASSIUM CHLORIDE 20 MEQ TABLET PO NR (10:00)
[2023-05-16] MEDS: POTASSIUM CL 10MEQ/50ML IVPB 50 ML IV SCH ×4 (10:06→15:01)
[2023-05-16] MEDS ORDERED: NS IV 500 ML 500 ML ONE (10:15)
[2023-05-16] MEDS ORDERED: NS IV ONE (10:30)
[2023-05-16] MEDS ORDERED: SOTALOL IV ONE (10:30)
[2023-05-16] MEDS: NS IV 500 ML 500 ML IV SCH (11:22)
[2023-05-16] MEDS ORDERED: BUDE10.26 INH (11:39)
[2023-05-16] MEDS ORDERED: TIOT18CA7 INH (11:39)
[2023-05-16] MEDS ORDERED: AMOX500C2 PO (11:39)
[2023-05-16] MEDS ORDERED: SOTA80TA23 PO (11:39)
[2023-05-16] MEDS ORDERED: SENN-145 PO (11:39)
[2023-05-16] MEDS ORDERED: SOTALOL 80 MG TABLET PO NR (16:00)
[2023-05-16] MEDS ORDERED: PATIENT MAY USE OWN MED,SINGLE MED PO SCH (17:45)
[2023-05-16] MEDS: APIXABAN 5 MG TABLET PO SCH (20:45)
[2023-05-16] MEDS: AMOXICILLIN 500 MG CAPSULE PO SCH (20:48)
[2023-05-16 21:22] LABS: CALCIUM 9.2 MG/DL (8.5-10.1); CREATININE SERUM 1.21 MG/DL (0.60-1.30); POTASSIUM 4.5 MMOL/L (3.6-5.0)
[2023-05-17 03:29] LABS: HEMATOCRIT 30 % (35-52); HEMOGLOBIN 9.4 g/dL (11.5-16.0); MEAN CORPUSCULAR HEMOGLOBIN 32 pg (25-34); MEAN CORPUSCULAR HGB CONC 31 g/dL (32-36); MEAN CORPUSCULAR VOLUME 101 fL (80-99); PLATELET COUNT 159 10^3/uL (130-400); WHITE BLOOD COUNT 7.3 10^3/uL (4.3-11.0)
[2023-05-17 03:40] LABS: POTASSIUM 4.8 MMOL/L (3.6-5.0)
[2023-05-17 03:41] LABS: CALCIUM 8.8 MG/DL (8.5-10.1)
[2023-05-17 03:46] LABS: CREATININE SERUM 1.09 MG/DL (0.60-1.30)
[2023-05-17] MEDS ORDERED: SOTALOL 80 MG TABLET PO SCH (04:00)
[2023-05-17] MEDS: NS IV 500 ML 500 ML IV SCH (04:50)
[2023-05-17] MEDS ORDERED: LEVOTHYROXINE 150 MCG TABLET PO SCH (06:30)
[2023-05-17] MEDS ORDERED: POTASSIUM CHLORIDE 20 MEQ TABLET PO SCH (07:00)
--- NOTE | 2023-05-17 08:44 | Short Stay Summary ---
History of Present Illness History of Present Illness Reason for visit/HPI Paroxysmal atrial fibrillation 68-year-old lady admitted with paroxysmal atrial fibrillation has been maintained on sotalol, she was admitted for escalating dose to 120 mg Her QTc PPM significantly prolonged, could not tolerate the higher dose. Planning for for discharge once and QTc return to baseline Date of Admission May 16, 2023 at 08:33 Date of Discharge May 17, 2023 Time Seen by Provider: 08:42 Attending Physician [place] Admitting Physician Admitting Physician: Olivia De Leon MD Attending Physician: Olivia De Leon MD Consult Allergies and Home Medications Allergies Coded Allergies: ceftriaxone (Verified Allergy, Unknown, pt has received Zosyn w/o issue, 05/09/19) ibuprofen (Verified Allergy, Unknown, PT TAKES ASA AT HOME, 08/02/17) PER MED REC diazepam (Verified Adverse Reaction, Severe, 12/04/18) Patient Home Medication List Home Medication List Reviewed: Yes Allopurinol (Allopurinol) 100 Mg Tablet, 100 MG PO DAILY, (Reported) Entered as Reported by: HALLE MANZANARES on 06/14/21 1046 Last Action: Reviewed Amoxicillin (Amoxicillin) 500 Mg Capsule, 500 MG PO TID, (Reported) Entered as Reported by: SHELIA TURNER on 05/16/23 1139 Last Action: Continued Apixaban (Eliquis) 5 Mg Tablet, 5 MG PO BID, (Reported) Entered as Reported by: THANIA OCONNOR on 03/16/23 1322 Last Action: Reviewed Aspirin (Aspirin EC) 81 Mg Tablet.dr, 81 MG PO DAILY, (Reported) Entered as Reported by: NANO KHALIL on 01/27/22 1245 Last Action: Reviewed Atorvastatin Calcium (Atorvastatin Calcium) 80 Mg Tablet, 80 MG PO HS, (Reported) Entered as Reported by: NANO KHALIL on 01/27/22 1245 Last Action: Reviewed Budesonide/Formoterol Fumarate (Budesonide-Formoterol 160-4.5) 160 Mcg-4.5 Mcg/Actuation Hfa.aer.ad, 2 PUFF INH BID, (Reported) Entered as Reported by: SHELIA TURNER on 05/16/23 1139 Last Action: Reviewed Furosemide (Furosemide) 20 Mg Tablet, 20 MG PO DAILY, (Reported) Entered as Reported by: HALLE MANZANARES on 06/14/21 1046 Last Action: Reviewed Levothyroxine Sodium (Levothyroxine Sodium) 150 Mcg Tablet, 150 MCG PO DAILY, (Reported) Entered as Reported by: SHELIA TURNER on 11/19/22 143 Last Action: Reviewed Losartan Potassium (Losartan Potassium) 25 Mg Tablet, 25 MG PO DAILY, (Reported) Entered as Reported by: NANO KHALIL on 01/27/22 1249 Last Action: Reviewed Multivit-Min/Iron/FA/Vit K/Lut (Centrum Silver Women Tablet) 8 Mg Iron-400 Mcg- 50 Mcg-300 Mcg Tablet, 1 EACH PO DAILY, (Reported) Entered as Reported by: SHELIA TURNER on 03/16/23 1328 Last Action: Reviewed Nitroglycerin (Nitroglycerin) 0.4 Mg Tab.subl, 0.4 MG SL UD PRN for CHEST PAIN, (Reported) Entered as Reported by: NANO KHALIL on 01/27/22 1245 Last Action: Reviewed Oxycodone HCl/Acetaminophen (Oxycodon-Acetaminophen 7.5-325) 7.5 Mg-325 Mg Tablet, 1 EA PO QID PRN for PAIN-MODERATE (5-7), (Reported) Entered as Reported by: SHELIA TURNER on 11/19/22 143 Last Action: Reviewed Potassium Chloride (Potassium Chloride) 10 Meq Tab.er.prt, 10 MEQ PO DAILY, (Reported) Entered as Reported by: CASSIE KHAN on 07/17/19 0908 Last Action: Reviewed Sennosides/Docusate Sodium (Senna S Tablet) 8.6 Mg-50 Mg Tablet, 2 EACH PO DAILY, (Reported) Entered as Reported by: SHELIA TURNER on 05/16/23 113 Last Action: Reviewed Sotalol HCl (Betapace AF) 80 Mg Tablet, 80 MG PO BID, (Reported) Entered as Reported by: SHELIA TURNER on 05/16/23 113 Last Action: Reviewed Tiotropium Oldfield (Tiotropium Oldfield) 18 Mcg Cap.w.dev, 2 PUFF INH 1400, (Reported) Entered as Reported by: SHELIA TURNER on 05/16/23 113 Last Action: Reviewed Discontinued Medications Docusate Sodium (Stool Softener) 100 Mg Capsule, 200 MG PO DAILY, (Reported) Discontinued Reason: No Longer Taking Entered as Reported by: HARPREET PITT on 06/15/21 1214 Last Action: Discontinued Iron Dextran Complex (Infed) 100 Mg/2 Ml (50 Mg/Ml) Vial, 100 MG IJ ONCE Discontinued Reason: No Longer Taking Prescribed by: KASSIDY IRELAND on 03/17/23 1051 Last Action: Discontinued Sotalol HCl (Sotalol) 80 Mg Tablet, 80 MG PO BID Discontinued Reason: Duplicate Order Prescribed by: OLIVIA DE LEON on 03/17/23 1252 Last Action: Discontinued Tiotropium [place] (Spiriva) 18 Mcg Aerp, 2 PUFF IH 1400, (Reported) Discontinued Reason: Duplicate Order Entered as Reported by: HALLE MANZANARES on 06/14/21 1046 Last Action: Discontinued Past Wlhlfux-Ghqoqm-Juxmpr Hx Patient Social History Marrital Status: single Employed/Student: retired [employer] Smoke Exposure: No Recent Hopitalizations: No Immunizations Up To Date Tetanus Booster (TDap): Unknown Date of Pneumonia Vaccine: Mar 13, 2013 Date of Influenza Vaccine: May 13, 2021 Seasonal Allergies Seasonal Allergies: No Surgeries Yes (COLON POLYP REMOVAL, MULTIPLE HERNIA REPAIRS, D&C) Abdominal, Adenoidectomy, Cardiac, Coronary Stent, Gallbladder, Pacemaker, Tonsillectomy Respiratory Yes (CHRONIC DYSPNEA--USES O2 AT HOME, ESPECIALLY AT NIGHT) Sleep Apnea Currently Using CPAP: No Currently Using BIPAP: No Cardiovascular Yes (TACHYCARDIA, STENTS X 1, CHF; PACEMAKER; ) Atrial Fibrillation, Chronic Edema/Swelling, Coronary Artery Disease, Deep Vein Thrombosis, Heart Attack, High Cholesterol, Hypertension Neurological No 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 System Hx 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 Disorders: No Sexually Transmitted Disease: No HIV/AIDS: No Female 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 Disorders: Denies 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: Tubal 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, Menopausal Genitourinary Yes UTI-Chronic Gastrointestinal Yes Abdominal Hernia, Diverticulosis, Polyps Musculoskeletal Yes (CHRONIC GENERALIZED PAIN--NARCOTIC-DEPENDENT;POOR MOBILITY-WC / BED BOUND) Degenerate Disk Disease, Arthritis, Chronic Back Pain Endocrine History of Endocrine Disorders: Yes (MORBID OBESITY) Endocrine Disorders: Hypothyroidsim HEENT History of HEENT Disorders: Yes HEENT Disorders: Cataract, Glaucoma Loss of Vision: Denies Hearing Impairment: Denies Cancer Yes (SQUAMOUS CELL SKIN CANCER 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 DE LEON : CONCLUSION: 95% in-stent restenosis in the proximal and mid LAD with successful balloon angioplasty with no residual stenosis using 3 x 20 noncompliant balloon Dominant right coronary artery with no obstructive disease very minimal ostial left main coronary artery stenosis Mildly elevated left ventricular end-diastolic pressure DISCUSSION AND RECOMMENDATION: Continue to maximize medical therapy, continue on aspirin and Plavix Family Hx: Cancer 03 MOTHER, Onset:40's - 50 Family history: Cardiovascular disease 03 FATHER, Onset:40's - 50 03 MOTHER, Onset:30's - 40 Myocardial infarction 03 MOTHER, Onset:30's - 40 Review of Systems Constitutional: see HPI, weakness EENTM: see HPI Respiratory: see HPI Cardiovascular: see HPI Gastrointestinal: see HPI Genitourinary: see HPI Musculoskeletal: see HPI Skin: see HPI Psychiatric/Neurological: No Symptoms Reported, See HPI Physical Exam Vital Signs Vital Signs - First Documented 05/16/23 05/16/23 05/16/23 08:45 09:02 11:50 Temp 36.1 Pulse 67 Resp 26 B/P (MAP) 148/70 (96) Pulse Ox 89 O2 Delivery Room Air O2 Flow Rate 2.00 Capillary Refill : Height, Weight, BMI Height: 5'2.00" Weight: 273lbs. 0.0oz. [id number]; 40.35 BMI Method:Stated General Appearance: No Apparent Distress, WD/WN Eyes: Bilateral Eye Normal Inspection, Bilateral Eye PERRL, Bilateral Eye EOMI HEENT: PERRL/EOMI, TMs Normal, Normal ENT Inspection, Pharynx Normal Neck: Full Range of Motion, Normal Inspection, Non Tender, Supple, Carotid Bruit Respiratory: Chest Non Tender, Lungs Clear, Normal Breath Sounds, No Accessory Muscle Use, No Respiratory Distress Cardiovascular: No Gallop, No JVD, Normal Peripheral Pulses, Systolic Murmur, Irregularly Irregular Gastrointestinal: Normal Bowel Sounds, No Organomegaly, No Pulsatile Mass, Non Tender, Soft Back: Normal Inspection, No CVA Tenderness, No Vertebral Tenderness Extremity: Normal Capillary Refill, Normal Inspection, Normal Range of Motion, Non Tender, No Calf Tenderness, Pedal Edema Neurologic/Psychiatric: Alert, Oriented x3, No Motor/Sensory Deficits, Normal Mood/Affect Skin: Normal Color, Warm/Dry Lymphatic: No Adenopathy Clinical Quality Measures Admission Status Admission Status: Inpatient Order (span 2 midnights) Reason for Inpatient Admission: Loading with IV sotalol Short Stay Diagnosis Discharge Diagnosis-Short Stay Admission Diagnosis: Paroxysmal atrial fibrillation Palpitation Hypertension Hyperlipidemia Final Discharge Diagnosis: Paroxysmal atrial fibrillation Palpitation Hypertension Hyperlipidemia Conclusion Labs Laboratory Tests 05/16/23 09:19: Sodium Level 140, Potassium Level 3.2L, Chloride Level 102, Carbon Dioxide Level 28, Anion Gap 10, Blood Urea Nitrogen 25H, Creatinine 1.14, Estimat Glomerular Filtration Rate 52, BUN/Creatinine Ratio 22, Glucose Level 116H, Calcium Level 9.1, Magnesium Level 1.8 05/16/23 21:00: Sodium Level 141, Potassium Level 4.5, Chloride Level 102, Carbon Dioxide Level 29, Anion Gap 10, Blood Urea Nitrogen 24H, Creatinine 1.21, Estimat Glomerular Filtration Rate 49, BUN/Creatinine Ratio 20, Glucose Level 120H, Calcium Level 9.2 05/17/23 03:20: Sodium Level 139, Potassium Level 4.8, Chloride Level 103, Carbon Dioxide Level 28, Anion Gap 8, Blood Urea Nitrogen 24H, Creatinine 1.09, Estimat Glomerular Filtration Rate 55, BUN/Creatinine Ratio 22, Glucose Level 92, Calcium Level 8.8, Magnesium Level 1.9, White Blood Count 7.3, Red Blood Count 2.98L, H emoglobin 9.4L, Hematocrit 30L, Mean Corpuscular Volume 101H, Mean Corpuscular Hemoglobin 32, Mean Corpuscular Hemoglobin Concent 31L, Red Cell Distribution Width 19.3H, Platelet Count 159, Mean Platelet Volume 10.0 Conclusion/Plan Patient was unable to tolerate higher dose of sotalol due to QTc prolongation OLIVIA DE LEON MD May 17, 2023 08:44
--- NOTE | 2023-05-17 08:45 | Discharge Inst-Simple/Standard ---
Discharge Inst-Standard Reconcile Patient Problems Problems Reviewed?: Yes Discharge Medications New, Converted or Re-Newed RX: RX on Chart Patient Instructions/Follow Up Plan of Care/Instructions/FU: Continue on current dose of sotalol 80 mg twice daily and arrange for follow-up as an outpatient Activity as Tolerated: Yes Discharge Diet: Cardiac Diet ALLY MARINO MD May 17, 2023 08:45
[2023-05-17] MEDS ORDERED: ALLOPURINOL 100 MG TABLET PO SCH (09:00)
[2023-05-17] MEDS ORDERED: ASPIRIN enteric coated 81MG TABLET PO SCH (09:00)
[2023-05-17] MEDS ORDERED: FUROSEMIDE 20 MG TABLET PO SCH (09:00)
[2023-05-17] MEDS: APIXABAN 5 MG TABLET PO SCH (09:33)
[2023-05-17] MEDS: AMOXICILLIN 500 MG CAPSULE PO SCH (09:34)
== END 2023-05-17 13:30 | disposition home or self-care (01) ==
LOC: ICU 08:33
PROVIDERS: ADMIT Internal Medicine Cardiovascular Disease; ATTEND Internal Medicine Cardiovascular Disease
DX: I48.0 Paroxysmal atrial fibrillation (principal); I11.0 Hypertensive heart disease with heart failure; I50.9 Heart failure, unspecified; I50.22 Chronic systolic (congestive) heart failure; I25.5 Ischemic cardiomyopathy; I21.9 Acute myocardial infarction, unspecified; I65.23 Occlusion and stenosis of bilateral carotid arteries; J44.9 Chronic obstructive pulmonary disease, unspecified; E03.9 Hypothyroidism, unspecified; E78.2 Mixed hyperlipidemia; E66.01 Morbid (severe) obesity due to excess calories; Z79.890 Hormone replacement therapy; Z79.82 Long term (current) use of aspirin; Z79.899 Other long term (current) drug therapy; Z95.818 Presence of other cardiac implants and grafts; Z99.81 Dependence on supplemental oxygen; Z86.718 Personal history of other venous thrombosis and embolism; Z95.5 Presence of coronary angioplasty implant and graft; Z87.19 Personal history of other diseases of the digestive system; Z98.890 Other specified postprocedural states; Z68.43 Body mass index [BMI] 50.0-59.9, adult; Z85.828 Personal history of other malignant neoplasm of skin
CPT/HCPCS: 36410; 36415; 76937; 80048; 83735; 85027; 87081; 93005; 96365; 96366; 96376; G0378